=== PATIENT | female | born 1945 | race Caucasian/White ===

== ENCOUNTER 2018-04-22 12:10 | Inpatient (IN) | payer MEDICARE, BC, SELFPAY ==
[2018-04-02 13:13] VITALS: BP 148/71; PULSE 79; RESP 18; TEMP 36.9; O2SAT 98; BMI 40.9
--- NOTE | 2018-04-02 13:26 | EKG12_ITS ---
Test Reason : Blood Pressure : / mmHG Vent. Rate : 075 BPM Atrial Rate : 075 BPM P-R Int : 144 ms QRS Dur : 076 ms QT Int : 370 ms P-R-T Axes : 033 024 041 degrees QTc Int : 413 ms Normal sinus rhythm Normal ECG Confirmed by VICKIE BALDWIN, URVASHI ([id number]), subeditor DIANE HERNANDEZ ([id number]) on 04/04/2018 8:58:16 AM Referred By: SAVANAH Confirmed By:URVASHI JOHNSTON MD
[2018-04-02 14:08] LABS: Absolute Lymphocyte Count 2.42 X10^3/ul (0.83-4.51); Basophil# 0.03 X10^3/uL; Basophil% 0.4 % (0-1); Eosinophil# 0.09 X10^3/uL; Eosinophils% 1.1 % (0-5); Hematocrit 39.6 % (37-47); Hemoglobin 12.7 g/dl (12.0-15.0); Lymphocyte # 2.42 X10^3/ul (4.0); Lymphocyte % 29.6 % (19-41); Mean Corp Hgb Conc 32.1 g/gl (32-36); Mean Corpuscular Hgb 30.2 pg (27.0-32.0); Mean Corpuscular Volume 94.3 fL (81-99); Mean Platelet Vol. 8.3 fl (6.2-12.0); Monocyte# 0.61 X10^3/uL; Monocyte% 7.5 % (0-10); Neutrophil # 5.02 X10^3/uL (2.7-7.7); Neutrophil % 61.3 % (47-70); Platelet Count 203 K/mm3 (150-450); RBC Distribution Width CV 13.9 % (11.6-14.6); RBC Distribution Width SD 47.5 fl (35.1-43.9); White Blood Count 8.2 K/mm3 (4.4-11.0)
[2018-04-02 14:09] LABS: POSITIVE COUNT NO; POSITIVE DIFFERENTIAL NO; POSITIVE MORPHOLOGY NO
[2018-04-02 14:25] LABS: Anion Gap 4 (5-15); BUN 19 mg/dL (7-18); BUN/Creat Ratio 23.4 RATIO (10-20); Calcium,Total 8.9 mg/dL (8.5-10.1); Chloride 104 mmol/L (98-107); Creatinine, Serum 0.81 mg/dL (0.55-1.02); EST Glomerular Filtration Rate 73 mL/min (>60); Est Glom Filt Rate - Afr Amer 89 mL/min (>60); Estimated Creatinine Clearance 43.77 ml/min; Glucose 103 mg/dL (74-106); Potassium 3.8 mmol/L (3.5-5.1); Sodium Level 138 mmol/L (136-145)
[2018-04-22] VITALS (10 sets, daily range): BP systolic 104–178; BP diastolic 56–83; PULSE 56–69; RESP 16–18; TEMP 36–36.5; O2SAT 74–100; BMI 40.9
[2018-04-22] MEDS: Acetaminophen 500 MG Tablet 1000 MG PO ×2 (12:54→21:50)
[2018-04-22] MEDS: oxyCODONE HCl Cr 10 MG Tablet PO (12:54)
[2018-04-22] MEDS: Celecoxib 200 MG Capsule 400 MG PO (12:54)
[2018-04-22] MEDS: Lactated Ringers 1,000 ML 999 ML IV (13:28)
[2018-04-22] MEDS: Cefazolin 2 GM in 0.9% Normal Saline 100 ML IV (14:25)
--- NOTE | 2018-04-22 15:50 | PCM.IMDPSTOP ---
Immediate Post-Op Note Date of Procedure: 04/22/18 Primary Surgeon/Physician: David Gray material requirements worker: Johnson David Pre-Operative Diagnosis: OA left knee Post-Operative Diagnosis: same Surgery/Procedure Performed:: Left TKR Description of Surgical Findings:: see note Estimated Blood Loss: 25cc Specimen's removed: bone Type of Anesthesia:: Spinal ASA Class: ASA3 Severe Disease - Admit VTE Documentation VTE Present on Admission: No VTE Mechan Device Prophylaxis: SCD's, Thigh High RUSLAN Hose VTE Pharm Prophylaxis ordered?: Yes
--- NOTE | 2018-04-22 16:27 | RAD_ITS ---
STUDY: X-RAY - LEFT KNEE REASON FOR EXAM: Female, 72 years old. Postop. TECHNIQUE: 2 view(s) of the knee. COMPARISON: None. FINDINGS: Normal visualized distal femur. Normal visualized proximal tibia and fibula. Normal proximal tibiofibular articulation. There is total knee replacement . Alignment is near-anatomic. There is postoperative change in the soft tissues. There are skin roderick. RAD/Knee 1 or 2 Views IMPRESSION: Total knee replacement. Electronically Signed: Del Martin MD at 20:31 EDT , Service support ,
[2018-04-22 16:48] LABS: Hematocrit 38.2 % (37-47); Hemoglobin 12.3 g/dl (12.0-15.0); Mean Corp Hgb Conc 32.2 g/gl (32-36); Mean Corpuscular Hgb 31.4 pg (27.0-32.0); Mean Corpuscular Volume 97.4 fL (81-99); Mean Platelet Vol. 8.2 fl (6.2-12.0); Platelet Count 221 K/mm3 (150-450); RBC Distribution Width CV 13.7 % (11.6-14.6); RBC Distribution Width SD 47.5 fl (35.1-43.9); Red Blood Count 3.92 M/mm3 (4.2-5.4); Scan Indicated on CBC? Y/N NO; White Blood Count 10.6 K/mm3 (4.4-11.0)
[2018-04-22 17:55] LABS: Anion Gap 9 (5-15); BUN 13 mg/dL (7-18); BUN/Creat Ratio 16.3 RATIO (10-20); Calcium,Total 8.2 mg/dL (8.5-10.1); Chloride 109 mmol/L (98-107); EST Glomerular Filtration Rate 75 mL/min (>60); Est Glom Filt Rate - Afr Amer 90 mL/min (>60); Estimated Creatinine Clearance 44.32 ml/min; Glucose 77 mg/dL (74-106); Potassium 4.5 mmol/L (3.5-5.1); Sodium Level 138 mmol/L (136-145)
[2018-04-22] MEDS: hydroCHLOROthiazide 25 MG Tablet 12.5 MG PO (21:50)
[2018-04-23 02:58] VITALS: BP 113/89; PULSE 65; RESP 18; TEMP 36.9; O2SAT 100
[2018-04-23] MEDS: Acetaminophen 500 MG Tablet 1000 MG PO ×3 (06:15→21:24)
[2018-04-23] MEDS: Rivaroxaban 10 MG Tablet PO (06:15)
[2018-04-23 06:20] LABS: Hematocrit 37.2 % (37-47); Hemoglobin 11.9 g/dl (12.0-15.0); Mean Corpuscular Hgb 30.8 pg (27.0-32.0); Mean Corpuscular Volume 96.4 fL (81-99); Mean Platelet Vol. 8.2 fl (6.2-12.0); Platelet Count 215 K/mm3 (150-450); RBC Distribution Width CV 13.4 % (11.6-14.6); RBC Distribution Width SD 46.2 fl (35.1-43.9); Red Blood Count 3.86 M/mm3 (4.2-5.4); White Blood Count 8.4 K/mm3 (4.4-11.0)
[2018-04-23 06:25] LABS: Scan Indicated on CBC? Y/N NO
[2018-04-23 06:32] LABS: Anion Gap 8 (5-15); BUN 11 mg/dL (7-18); BUN/Creat Ratio 15.4 RATIO (10-20); Calcium,Total 8.4 mg/dL (8.5-10.1); Chloride 103 mmol/L (98-107); Creatinine, Serum 0.72 mg/dL (0.55-1.02); EST Glomerular Filtration Rate 85 mL/min (>60); Est Glom Filt Rate - Afr Amer 102 mL/min (>60); Estimated Creatinine Clearance 35.45 ml/min; Glucose 90 mg/dL (74-106); Potassium 4.3 mmol/L (3.5-5.1); Sodium Level 139 mmol/L (136-145)
[2018-04-23 07:57] VITALS: BP 154/67; PULSE 68; RESP 18; TEMP 36.5; O2SAT 100
--- NOTE | 2018-04-23 07:58 | PCM.PN.ORT ---
Subjective: Doing well pain rated at 4-5/10 - Physical Exam General: Alert, Oriented x3, No apparent distress HEENT: Atraumatic Oral: Moist Mucosa Skin: Incision - C/D/I Musculoskeletal: Tenderness - left knee as expected Neurological: Neuro grossly intact Vital Signs Temp Pulse Resp BP Pulse Ox 97.7 F L 68 18 154/67 H 100 04/23/18 07:57 04/23/18 07:57 04/23/18 07:57 04/23/18 07:57 04/23/18 07:57 Oxygen Delivery Method Room Air Weight: 209 lb 10.554 oz Body Mass Index (BMI) 40.9 Intake and Output for Last 24 Hours 04/21/18 04/22/18 04/23/18 23:59 23:59 23:59 Intake Total 1600 / 1600 185 / 185 Balance 1600 / 1600 185 / 185 Laboratory Tests Past 24 Hrs 04/22/18 04/22/18 04/23/18 16:30 16:30 05:42 WBC 10.6 8.4 RBC 3.92 L 3.86 L Hgb 12.3 11.9 L Hct 38.2 37.2 MCV 97.4 96.4 MCH 31.4 30.8 MCHC 32.2 32.0 RDW 13.7 13.4 RDW Differential 47.5 H 46.2 H Plt Count 221 215 MPV 8.2 8.2 Sodium 138 Potassium 4.5 Chloride 109 H Carbon Dioxide 20.0 L Anion Gap 9 BUN 13 Creatinine 0.80 Estim Creat Clear Calc 44.32 Est GFR (MDRD) Af Amer 90 Est GFR (MDRD) Non-Af 75 BUN/Creatinine Ratio 16.3 Glucose 77 Calcium 8.2 L 04/23/18 05:42 WBC RBC Hgb Hct MCV MCH MCHC RDW RDW Differential Plt Count MPV Sodium 139 Potassium 4.3 Chloride 103 Carbon Dioxide 28.0 Anion Gap 8 BUN 11 Creatinine 0.72 Estim Creat Clear Calc 35.45 Est GFR (MDRD) Af Amer 102 Est GFR (MDRD) Non-Af 85 BUN/Creatinine Ratio 15.4 Glucose 90 Calcium 8.4 L Medical Necessity - Tobacco Use Smoking Status: Never smoker Assessment/Plan POD #1 Left TKR PT today, d/c/tomorrow
[2018-04-23] MEDS: oxyCODONE 5 MG Tablet PO ×2 (08:00→12:04)
--- NOTE | 2018-04-23 11:15 | CASEMGMT ---
PITO ABARCA Face to Face with patient for initial transition planning/care coordination assessment. PITO ABARCA introduced self and role at [facility]. Patient lying in bed, alert and oriented, daughter at bedside. Patient willing to participate in assessment and is able to answer all questions appropriately. Care providers, pharmacy, and demographics verified. Patient lives with in 1 story home with 2 steps to enter home. Patient states she has a shower chair, raised toilet seat, cane, grab bars, hip kit, and walker at home. Patient wishes to discharge home, and is setup with [facility] for outpatient therapy with providing transportation. Patient states she has no further needs or concerns at this time. CM to follow for discharge planning needs that may arise. Disposition Plan: Patient to discharge home with outpatient therapy, family support, and follow-up plans in place.
[2018-04-23 14:00] VITALS: BP 141/53; PULSE 72; RESP 18; TEMP 37.1; O2SAT 98
[2018-04-23] MEDS: hydroCHLOROthiazide 25 MG Tablet 12.5 MG PO (21:25)
[2018-04-24 02:35] VITALS: BP 148/73; PULSE 92; RESP 18; TEMP 37.2; O2SAT 95
[2018-04-24] MEDS: Acetaminophen 500 MG Tablet 1000 MG PO ×2 (06:05→14:03)
[2018-04-24] MEDS: Rivaroxaban 10 MG Tablet PO (06:06)
--- NOTE | 2018-04-24 08:01 | PCM.PN.ORT ---
Subjective: doing well. Up eating breakfast. Ready to go home this PM after PT. - Physical Exam General: Alert, Oriented x3, No apparent distress Skin: Incision - C/D/I Musculoskeletal: Tenderness - Left knee as expected. Negative Asa and Quentin signs Vital Signs Temp Pulse Resp BP Pulse Ox 98.9 F 92 18 148/73 H 95 04/24/18 02:35 04/24/18 02:35 04/24/18 02:35 04/24/18 02:35 04/24/18 02:35 Oxygen Delivery Method Room Air Weight: 209 lb 10.554 oz Body Mass Index (BMI) 40.9 Intake and Output for Last 24 Hours 04/22/18 04/23/18 04/24/18 23:59 23:59 23:59 Intake Total 1600 / 1600 1145 / 1145 Balance 1600 / 1600 1145 / 1145 Medical Necessity - Tobacco Use Smoking Status: Never smoker Assessment/Plan S/p Left TKR PT this AM, home PM PT as outpatient in office Will follow closely
[2018-04-24 08:30] VITALS: BP 155/70; PULSE 83; RESP 18; TEMP 36.9; O2SAT 100
[2018-04-24] MEDS: oxyCODONE 5 MG Tablet PO ×2 (08:30→14:03)
--- NOTE | 2018-04-24 09:42 | PCM.DC.TKR ---
Discharge Diet: No Restrictions Discharge Activity: May Not Drive, May Shower, Use Walker May shower in (days): 1 Ice area for (Minutes): 20 - each hour while awake. Weight Bearing Status: Weight bearing as tolerated Elevate: Operative Extremity Additional Activity Instructions:: Wear elastic stockings for 2 weeks after your surgery. Call your doctor if your incision/area has: Continuous Slow Oozing, Sudden Increased Bleeding, Increased Pain/ Swelling, Increased Redness, Foul Smelling Discharge Call your doctor if you observe: Fever of 101 or Higher, Coldness, Increased Pain - in extremity, Numbness or Tingling, Change in Color, Calf discomfort, Uncontrolled pain Change Dressing in (Days):: 0 - and daily as needed. Remove Dressing in (days):: 8 Cleanse incision/area with: Soap & Water Allergies/Adverse Reactions: Allergies hydrocodone [From Vicodin] Allergy (Verified 04/02/18 12:50) Other severe headache Medications to take at Discharge Ergocalciferol [Vitamin D] 50,000 unit PO Q7D 04/02/18 Potassium 99 mg PO DAILY 04/02/18 Valsartan/Hydrochlorothiazide [Valsartan-Hctz 160-12.5 mg Tab] 1 each PO QHS 04/02/18 Acetaminophen [Tylenol] 1,000 mg PO Q8 #90 tab 04/24/18 Oxycodone [Oxyir] 5 - 10 mg PO Q6H PRN PRN 7 Days #80 tab 04/24/18 Rivaroxaban [Xarelto] 10 mg PO DAILY@0600 #20 tab 04/24/18 The following prescriptions were given: Oxycodone [Oxyir] 5 - 10 mg PO Q6H PRN PRN 7 Days #80 tab PRN Reason: Mod-Severe Pain (4-07/24) Acetaminophen [Tylenol] 1,000 mg PO Q8 #90 tab Rivaroxaban [Xarelto] 10 mg PO DAILY@0600 #20 tab Primary Care Physician: Honorio Nettles Chi, MD [Primary Care Provider] - Test Results: Test results from this visit will be discussed in further detail at your follow-up appointment, if applicable. Please Follow Up With: David Gray, When: as scheduled
--- NOTE | 2018-04-24 12:27 | CASEMGMT ---
Social Work Note lock and dam equipment repairer Sreedhar informed this worker that pt's scripts will cost $290. PITO Eli states that pt is being discharged in Xarelto. SW spoke with pharmacy and pharmacy states that they checked Xarelto coupon card and it doesn't cover the mg that pt will be discharged on. Pharmacy confirms that Rx assistance program can only be used if pt doesn't have insurance. Pt currently had Medicare and pharmacy states that pt's Medicare insurance doesn't cover her prescriptions. Pharmacy states that the only way pt can get her script cost down is to have the doctor change the medicine she will be discharged on. SW updated lock and dam equipment repairer Sreedhar of this. Yessy Mei HEAD TURNING MACHINE OPERATOR, CLINICAL SYSTEMS ANALYST
--- NOTE | 2018-04-24 13:34 | NURSING ---
Pt refused prescription for Xarelto due to the cost of about $290. Pt stated she was on no anticoagulant before. Also stated that after her last surgery she was not given any anticoagulants and did not have a problem. Pt stated she does not have a history of any blood clots or heart issues that would warrant it. Pt requested a therapeutic option. This RN contacted Dr. Gray by phone. A nurse answered and verbally communicated with Dr. Gray and repeated a new order to this RN. Dr. Gray ordered the Xarelto to be discontinued and replaced with Aspirin 325mg once a day. This RN repeated the order back and it was correct. Pt was notified and in agreement with this option. Pt stated she appreciated being able to work with us on options to resolve this and the work involved.
== END 2018-04-24 14:17 | disposition home or self-care (01) | DRG 470 ==
LOC: ACINP 12:11 → MS3 13:58
PROVIDERS: Admitting Provider Orthopaedic Surgery; Family Provider Family Medicine Geriatric Medicine; PCP Family Medicine Geriatric Medicine; Visit Provider Orthopaedic Surgery
PROC: 0SRD0J9 Replacement of Left Knee Joint with Synthetic Substitute, Cemented, Open Approach (ICD-10-PCS; CPT 27447; principal; 2018-04-22 13:50)
DX: M17.12 Unilateral primary osteoarthritis, left knee (principal); Z68.41 Body mass index [BMI] 40.0-44.9, adult; Z96.651 Presence of right artificial knee joint; I10 Essential (primary) hypertension; E66.9 Obesity, unspecified
CPT/HCPCS: 36415; 73560; 80048; 85025; 85027; 87081; 93005; 97110; 97162; 97165; 97530; C1776; J7120; J2405

== ENCOUNTER → 2018-11-05 11:36 | Outpatient (CLI) | payer MEDICARE, BC, SELFPAY ==
[2018-04-22 17:33] VITALS: BMI 40.9
[2018-11-05 12:41] LABS: Absolute Lymphocyte Count 2.16 X10^3/ul (0.83-4.51); Absolute Neutrophil Count 4.2 X10^3/uL (2.0-7.7); Basophil# 0.04 X10^3/uL; Basophil% 0.6 % (0-1); Eosinophil# 0.23 X10^3/uL; Eosinophils% 3.2 % (0-5); Hemoglobin 13.5 g/dl (12.0-15.0); Lymphocyte # 2.16 X10^3/ul (4.0); Lymphocyte % 30.1 % (19-41); Mean Corp Hgb Conc 32.1 g/gl (32-36); Mean Corpuscular Hgb 30.5 pg (27.0-32.0); Mean Platelet Vol. 8.8 fl (6.2-12.0); Monocyte# 0.57 X10^3/uL; Monocyte% 7.9 % (0-10); Neutrophil # 4.16 X10^3/uL (2.7-7.7); Neutrophil % 57.9 % (47-70); Platelet Count 295 K/mm3 (150-450); RBC Distribution Width CV 13.4 % (11.6-14.6); RBC Distribution Width SD 44.8 fl (35.1-43.9); Red Blood Count 4.42 M/mm3 (4.2-5.4); White Blood Count 7.2 K/mm3 (4.4-11.0)
[2018-11-05 12:43] LABS: POSITIVE COUNT NO; POSITIVE DIFFERENTIAL NO; POSITIVE MORPHOLOGY NO
[2018-11-05 12:53] LABS: Vitamin D,25 Hydroxy 98.1 ng/mL (29.95-100.01)
[2018-11-05 13:00] LABS: ALB/GLOB Ratio 0.9 RATIO (0.9-2.4); AST(SGOT) 15 U/L (15-37); Alanine Aminotransfer ALT/SGPT 18 U/L (13-56); Albumin, Serum 3.5 g/dL (3.2-5.0); Alkaline Phosphatase 68 U/L (45-117); Anion Gap 8 (5-15); BUN 15 mg/dL (7-18); BUN/Creat Ratio 19.8 RATIO (10-20); Calcium,Total 9.2 mg/dL (8.5-10.1); Chloride 104 mmol/L (98-107); Creatinine, Serum 0.76 mg/dL (0.55-1.02); EST Glomerular Filtration Rate 79 mL/min (>60); Est Glom Filt Rate - Afr Amer 96 mL/min (>60); Globulin 3.8 g/dL (2.2-4.2); Glucose 89 mg/dL (74-106); Potassium 4.3 mmol/L (3.5-5.1); Protein, Total 7.3 g/dL (6.4-8.2); Sodium Level 140 mmol/L (136-145); Thyroid Stim Hormone (TSH) 0.45 uIU/mL (0.358-3.74)
--- OUTSIDE RECORDS SUMMARY | 2019-01-07 15:34 | XMS RPT_ITS ---
:1945 Author Organization OHIP Care Team Providers Name Role Phone Honorio Nettles Chi Attending Unavailable Tho Honorio Chi Primary Care Unavailable David Gray Admitting Unavailable David Gray Attending Unavailable Tho, Honorio Chi Primary Care Unavailable Francisco Johnston Attending Unavailable David Gray Referring Unavailable PROBLEMS PROBLEMS DATE TYPE CONDITION / CODE ATTENDING STATUS SOURCE 04/24/2018 Unknown G89.18 - Other acute David Gray Active [place] postprocedural pain [facility] / G89.18(ICD-10) Hospital Repository 04/25/2018 Unknown I10 - Essential Francisco Johnston Active [place] (primary) [facility] hypertension / Hospital I10(ICD-10) Repository PROCEDURES PROCEDURES No Procedure Records FoundRESULTS RESULTS CBC W/DIFF, AUTOMATED Collected: 11/05/2018 Status: F Source: [place] 11:41 AM [facility] HOSPITAL REPOSITORY TYPE CODE TESTS RESULT OUT OF RANGE REFERENCE UNITS LAB L100.1000 4.4-11.0 K/mm3 Normal WBC 7.2 LAB L100.1200 4.2-5.4 M/mm3 Normal RBC 4.42 LAB L100.1300 12.0-15.0 g/dl Normal HGB 13.5 LAB L100.1400 37-47 % Normal HCT 42.0 LAB L100.1500 81-99 fL Normal MCV 95.0 LAB L100.1600 27.0-32.0 pg Normal MCH 30.5 LAB L100.1700 32-36 g/gl Normal MCHC 32.1 LAB L100.1810 11.6-14.6 % Normal RDW CV 13.4 LAB L100.1820 35.1-43.9 fl High RDW SD 44.8 LAB L100.1900 150-450 K/mm3 Normal PLT 295 LAB L100.2000 6.2-12.0 fl Normal MPV 8.8 LAB L100.2100 47-70 % Normal NEUT% 57.9 LAB L100.2200 19-41 % Normal LY% 30.1 LAB L100.2300 0-10 % Normal MONO% 7.9 LAB L100.2400 0-5 % Normal EO% 3.2 LAB L100.2500 0-1 % Normal BASO% 0.6 LAB L100.2550 0.0-0.9 % Normal IM GRAN % 0.300 Result Comment: IG% - Immature Granulocytes (promyelocytes, myelocytes and metamyelocytes) > 1% indicates that a LEFT SHIFT is Present. LAB L100.2620 2.0-7.7 X10 3/uL Normal Absolute Neut 4.2 LAB L100.2720 0.83-4.51 X10 3/ul Normal Absolute Lymph 2.16 Performed By: #### L100.0100 #### [facility] [address] [place], [place], [address] VITAMIN D,25 HYDROXY Collected: 11/05/2018 Status: F Source: [place] 11:41 [facility] [place] TYPE CODE TESTS RESULT OUT OF RANGE REFERENCE UNITS LAB L506.1000 29.95-100.01 ng/mL Normal Vitamin D 98.1 25-OH Result Comment: Vitamin D 25(OH) Status Range Deficiency <20 ng/mL (50nmol/L) Insuffciency 20 - 30 ng/mL (50 - 75 nmol/L) Sufficiency 30 - 100 ng/mL (75 - 250 nmol/L) Toxicity >100 ng/mL (>250 nmol/L) Performed By: #### L506.1000 #### [facility] [address] [place], [address] COMPREHENSIVE METABOLIC Collected: 11/05/2018 Status: F Source: [facility] 11:41 [facility] [place] TYPE CODE TESTS RESULT OUT OF RANGE REFERENCE UNITS LAB L501.0100 74-106 mg/dL Normal GLU 89 Result Comment: Please note revised GLUCOSE reference range effective 2017. LAB L501.1000 7-18 mg/dL Normal BUN 15 LAB L501.1100 0.55-1.02 mg/dL Normal CREAT,SERUM 0.76 Result Comment: The validity of the calculated GFR AND GFRAA in patients over 70 years has not been determined. Clinical correlation is essential. LAB L501.1110 >60 mL/min Normal EST GFR 79 Result Comment: Non- GFR Calc LAB L501.1115 >60 mL/min Normal EST GFR - AA 96 Result Comment: GFR Calc LAB L501.1300 10-20 RATIO Normal BUN/CRE 19.8 LAB L501.1500 6.4-8.2 g/dL T Normal PROT 7.3 LAB L501.1800 3.2-5.0 g/dL Normal ALB 3.5 LAB L501.1950 2.2-4.2 g/dL Normal GLOB 3.8 LAB L501.2000 0.9-2.4 RATIO Normal A/G 0.9 LAB L501.2200 8.5-10.1 mg/dL CA Normal 9.2 LAB L501.4100 15-37 U/L Normal AST 15 LAB L501.4305 45-117 U/L Normal ALK P 68 LAB L501.4405 13-56 U/L Normal ALT 18 LAB L501.4600 0.20-1.00 mg/dL T Normal BILI 0.50 LAB L501.5300 136-145 mmol/L NA Normal 140 LAB L501.5600 3.5-5.1 mmol/L K Normal 4.3 LAB L501.5900 98-107 mmol/L CL Normal 104 LAB L501.6100 21.0-32.0 mmol/L Normal CO2 28.0 LAB L501.6200 5-15 Normal GAP 8 Performed By: #### L500.4050, L501.9520 #### [facility] [address] [place], [address] THYROID STIM HORMONE Collected: 11/05/2018 Status: F Source: [place] (TSH) 11:41 AM [facility] REPOSITORY TYPE CODE TESTS RESULT OUT OF RANGE REFERENCE UNITS LAB L501.9520 0.358-3.74 uIU/mL Normal TSH 0.45 Performed By: #### L500.4050, L501.9520 #### [facility] [address] [place], [address] DISCHARGE INSTRUCTION Observed: 04/24/2018 Status: F Source: [place] 9:43 AM [facility] REPOSITORY [facility] Medical Records Department [address] [place] [address] Instructions for Home/Discharge Instructions 04/24/18 0942 MR#: [id number] Acct: [id number] Name: ANAY CHAIREZ Rep #: [id number] : 1945 72 From: Johnson David PA-C PCP: Tho BALDWIN,Dishcrawl Status: ADM IN Discharge Diet: No Restrictions Discharge Activity: May Not Drive, May Shower, Use Walker May shower in (days): 1 Ice area for (Minutes): 20 - each hour while awake. Weight Bearing Status: Weight bearing as tolerated Elevate: Operative Extremity Additional Activity Instructions:: Wear elastic stockings for 2 weeks after your surgery. Call your doctor if your incision/area has: Continuous Slow Oozing, Sudden Increased Bleeding, Increased Pain/ Swelling, Increased Redness, Foul Smelling Discharge Call your doctor if you observe: Fever of 101 or Higher, Coldness, Increased Pain - in extremity, Numbness or Tingling, Change in Color, Calf discomfort, Uncontrolled pain Change Dressing in (Days):: 0 - and daily as needed. Remove Dressing in (days):: 8 Cleanse incision/area with: Soap AND Water Allergies/Adverse Reactions: Allergies hydrocodone [From Vicodin] Allergy (Verified 04/02/18 12:50) Other severe headache Medications to take at Discharge Ergocalciferol [Vitamin D] 50,000 unit PO Q7D 04/02/18 Potassium 99 mg PO DAILY 04/02/18 Valsartan/Hydrochlorothiazide [Valsartan-Hctz 160-12.5 mg Tab] 1 each PO QHS 04/02/18 Acetaminophen [Tylenol] 1,000 mg PO Q8 #90 tab 04/24/18 Oxycodone [Oxyir] 5 - 10 mg PO Q6H PRN PRN 7 Days #80 tab 04/24/18 Rivaroxaban [Xarelto] 10 mg PO DAILY@0600 #20 tab 04/24/18 The following prescriptions were given: Oxycodone [Oxyir] 5 - 10 mg PO Q6H PRN PRN 7 Days #80 tab PRN Reason: Mod-Severe Pain (-07/24) Acetaminophen [Tylenol] 1,000 mg PO Q8 #90 tab Rivaroxaban [Xarelto] 10 mg PO DAILY@0600 #20 tab Primary Care Physician: Honorio Nettles Chi, MD [Primary Care Provider] - Test Results: Test results from this visit will be discussed in further detail at your follow-up appointment, if applicable. Please Follow Up With: David Gray, DO When: as scheduled 04/24/18 0943 <Electronically signed by Johnson David PA-C> Date Johnson David PA-C CC: Honorio Nettles MD CBC-COMPLETE BLOOD CNT Collected: 04/23/2018 Status: F Source: [place] NO DIFF 5:42 AM [facility] REPOSITORY TYPE CODE TESTS RESULT OUT OF RANGE REFERENCE UNITS LAB L100.1000 4.4-11.0 K/mm3 Normal WBC 8.4 LAB L100.1200 4.2-5.4 M/mm3 Low RBC 3.86 LAB L100.1300 12.0-15.0 g/dl Low HGB 11.9 LAB L100.1400 37-47 % Normal HCT 37.2 LAB L100.1500 81-99 fL Normal MCV 96.4 LAB L100.1600 27.0-32.0 pg Normal MCH 30.8 LAB L100.1700 32-36 g/gl Normal MCHC 32.0 LAB L100.1810 11.6-14.6 % Normal RDW CV 13.4 LAB L100.1820 35.1-43.9 fl High RDW SD 46.2 LAB L100.1900 150-450 K/mm3 Normal PLT 215 LAB L100.2000 6.2-12.0 fl Normal MPV 8.2 Performed By: #### L100.0500 #### [facility] [address] [place], [place], [id number] BASIC METABOLIC Collected: 04/23/2018 Status: F Source: [place] PROFILE (BMP) 5:42 AM [facility] REPOSITORY TYPE CODE TESTS RESULT OUT OF RANGE REFERENCE UNITS LAB L501.0100 74-106 mg/dL Normal GLU 90 Result Comment: Please note revised GLUCOSE reference range effective 2017. LAB L501.1000 7-18 mg/dL Normal BUN 11 LAB L501.1100 0.55-1.02 mg/dL Normal CREAT,SERUM 0.72 Result Comment: The validity of the calculated GFR AND GFRAA in patients over 70 years has not been determined. Clinical correlation is essential. LAB L501.1110 >60 mL/min Normal EST GFR 85 Result Comment: Non- GFR Calc LAB L501.1115 >60 mL/min Normal EST GFR - AA 102 Result Comment: GFR Calc LAB L501.1255 ml/min Normal Estimated CRCL 35.45 LAB L501.1300 10-20 RATIO Normal BUN/CRE 15.4 LAB L501.2200 8.5-10 mg/dL Low .1 CA 8.4 LAB L501.5300 136-14 mmol/L Normal 5 NA 139 LAB L501.5600 3.5-5. mmol/L Normal 1 K 4.3 LAB L501.5900 98-107 mmol/L Normal CL 103 LAB L501.6100 21.0-3 mmol/L Normal 2.0 CO2 28.0 LAB L501.6200 5-15 Normal GAP 8 Performed By: #### L500.2500 #### [facility] [address] [place], [address] CBC-COMPLETE BLOOD CNT Collected: 04/22/2018 Status: F Source: [place] NO DIFF 4:30 PM [facility] REPOSITORY Order Comment: Comments: To be done in PACU TYPE CODE TESTS RESULT OUT OF RANGE REFERENCE UNITS LAB L100.1000 4.4-11.0 K/mm3 Normal WBC 10.6 LAB L100.1200 4.2-5.4 M/mm3 Low RBC 3.92 LAB L100.1300 12.0-15.0 g/dl Normal HGB 12.3 LAB L100.1400 37-47 % Normal HCT 38.2 LAB L100.1500 81-99 fL Normal MCV 97.4 LAB L100.1600 27.0-32.0 pg Normal MCH 31.4 LAB L100.1700 32-36 g/gl Normal MCHC 32.2 LAB L100.1810 11.6-14.6 % Normal RDW CV 13.7 LAB L100.1820 35.1-43.9 fl High RDW SD 47.5 LAB L100.1900 150-450 K/mm3 Normal PLT 221 LAB L100.2000 6.2-12.0 fl Normal MPV 8.2 Performed By: #### L100.0500 #### [facility] [address] [place], [address] BASIC METABOLIC Collected: 04/22/2018 Status: F Source: [place] PROFILE (BMP) 4:30 PM [facility] REPOSITORY Order Comment: Comments: To be done in PACU TYPE CODE TESTS RESULT OUT OF RANGE REFERENCE UNITS LAB L501.0100 74-106 mg/dL Normal GLU 77 Result Comment: Please note revised GLUCOSE reference range effective 2017. LAB L501.1000 7-18 mg/dL Normal BUN 13 LAB L501.1100 0.55-1.02 mg/dL Normal CREAT,SERUM 0.80 Result Comment: The validity of the calculated GFR AND GFRAA in patients over 70 years has not been determined. Clinical correlation is essential. LAB L501.1110 >60 mL/min Normal EST GFR 75 Result Comment: Non- GFR Calc LAB L501.1115 >60 mL/min Normal EST GFR - AA 90 Result Comment: GFR Calc LAB L501.1255 ml/min Normal Estimated CRCL 44.32 LAB L501.1300 10-20 RATIO Normal BUN/CRE 16.3 LAB L501.2200 8.5-10 mg/dL Low .1 CA 8.2 LAB L501.5300 136-14 mmol/L Normal 5 NA 138 LAB L501.5600 3.5-5. mmol/L Normal 1 K 4.5 LAB L501.5900 98-107 mmol/L High CL 109 LAB L501.6100 21.0-3 mmol/L Low 2.0 CO2 20.0 LAB L501.6200 5-15 Normal GAP 9 Performed By: #### L500.2500 #### [facility] [address] [place], [address] KNEE 1 OR 2 VIEWS Observed: 04/22/2018 Status: F Source: [place] 2:09 PM [facility] REPOSITORY [facility] Imaging Services [address] [place] [address] Knee 1 or 2 Views MR#: [id number] Acct: [id number] Name: ANAY CHAIREZ Rep #: [id number] : 1945 F 72 From: Del Martin MD PCP: Honorio Nettles MD, Chi Status: ADM IN Study: Knee 1 or 2 Views Date of Exam: 04/22/18 Exam# [id number] Ordering Dr: David Gray DO STUDY: X-RAY - LEFT KNEE REASON FOR EXAM: Female, 72 years old. Postop. TECHNIQUE: 2 view(s) of the knee. COMPARISON: None. FINDINGS: Normal visualized distal femur. Normal visualized proximal tibia and fibula. Normal proximal tibiofibular articulation. There is total knee replacement . Alignment is near-anatomic. There is postoperative change in the soft tissues. There are skin roderick. RAD/Knee 1 or 2 Views IMPRESSION: Total knee replacement. Electronically Signed: Del Martin MD at 20:31 EDT , Service support , CC: David Gray DO; Honorio Nettles MD Certified Residential Medication Aide: Signed 12 LEAD ELECTROCARDIOGRAM Observed: 04/04/2018 Status: F Source: [place] 8:58 AM [facility] REPOSITORY [facility] Cardiovascular Services [address] [place] [address] 12 Lead EKG 04/02/18 1232 MR#: [id number] Acct: [id number] Name: ANAY CHAIREZ Rep #: [id number] : 1945 72 From: Francisco Johnston MD Attending Dr: David Gray DO Status: PRE IN Ordering Dr: David Gray DO Date: 04/02/18 Location: [facility] Sex: F C Admitted: Test Reason : Blood Pressure : / mmHG Vent. Rate : 075 BPM Atrial Rate : 075 BPM P-R Int : 144 ms QRS Dur : 076 ms QT Int : 370 ms P-R-T Axes : 033 024 041 degrees QTc Int : 413 ms Normal sinus rhythm Normal ECG Confirmed by VICKIE BALDWIN, FRANCISCO ([id number]), photograph editor DIANE HERNANDEZ ([id number]) on 04/04/2018 8:58:16 AM Referred By: SAVANAH Confirmed By:FRANCISCO JOHNSTON MD 04/04/18 0858 Date Francisco Johnston MD CC: David Gray DO; Honorio Nettles MD Signed CBC W/DIFF, AUTOMATED Collected: 04/02/2018 Status: F Source: [place] 1:40 PM [facility] REPOSITORY TYPE CODE TESTS RESULT OUT OF RANGE REFERENCE UNITS LAB L100.1000 4.4-11.0 K/mm3 Normal WBC 8.2 LAB L100.1200 4.2-5.4 M/mm3 Normal RBC 4.20 LAB L100.1300 12.0-15.0 g/dl Normal HGB 12.7 LAB L100.1400 37-47 % Normal HCT 39.6 LAB L100.1500 81-99 fL Normal MCV 94.3 LAB L100.1600 27.0-32.0 pg Normal MCH 30.2 LAB L100.1700 32-36 g/gl Normal MCHC 32.1 LAB L100.1810 11.6-14.6 % Normal RDW CV 13.9 LAB L100.1820 35.1-43.9 fl High RDW SD 47.5 LAB L100.1900 150-450 K/mm3 Normal PLT 203 LAB L100.2000 6.2-12.0 fl Normal MPV 8.3 LAB L100.2100 47-70 % Normal NEUT% 61.3 LAB L100.2200 19-41 % Normal LY% 29.6 LAB L100.2300 0-10 % Normal MONO% 7.5 LAB L100.2400 0-5 % Normal EO% 1.1 LAB L100.2500 0-1 % Normal BASO% 0.4 LAB L100.2550 0.0-0.9 % Normal IM GRAN % 0.100 Result Comment: IG% - Immature Granulocytes (promyelocytes, myelocytes and metamyelocytes) > 1% indicates that a LEFT SHIFT is Present. LAB L100.2620 2.0-7.7 X10 3/uL Normal Absolute Neut 5.0 LAB L100.2720 0.83-4.51 X10 3/ul Normal Absolute Lymph 2.42 Performed By: #### L100.0100 #### [facility] [address] [place], [place], [address] BASIC METABOLIC Collected: 04/02/2018 Status: F Source: [place] PROFILE (BMP) 1:40 PM [facility] REPOSITORY TYPE CODE TESTS RESULT OUT OF RANGE REFERENCE UNITS LAB L501.0100 74-106 mg/dL Normal GLU 103 Result Comment: Fasting Glucose result from 100 to 125 mg/dL suggests IMPAIRED HOMEOSTASIS per A.D.A. criteria. Please note revised GLUCOSE reference range effective 2017. LAB L501.1000 7-18 mg/dL High BUN 19 LAB L501.1100 0.55-1.02 mg/dL Normal CREAT,SERUM 0.81 Result Comment: The validity of the calculated GFR AND GFRAA in patients over 70 years has not been determined. Clinical correlation is essential. LAB L501.1110 >60 mL/min Normal EST GFR 73 Result Comment: Non- GFR Calc LAB L501.1115 >60 mL/min Normal EST GFR - AA 89 Result Comment: GFR Calc LAB L501.1255 ml/min Normal Estimated CRCL 43.77 LAB L501.1300 10-20 RATIO High BUN/CRE 23.4 LAB L501.2200 8.5-10 mg/dL Normal .1 CA 8.9 LAB L501.5300 136-14 mmol/L Normal 5 NA 138 LAB L501.5600 3.5-5. mmol/L Normal 1 K 3.8 LAB L501.5900 98-107 mmol/L Normal CL 104 LAB L501.6100 21.0-3 mmol/L Normal 2.0 CO2 30.0 LAB L501.6200 5-15 Low GAP 4 Performed By: #### L500.2500 #### [facility] [address] [place], [address] Observed: 04/02/2018 Status: F Source: [place] MRSA/SAID SCREEN 1:40 PM [facility] REPOSITORY MRSA/SAID SCRN S. AUREUS S. aureus Negative MRSA MRSA Negative Performed By: #### M100.651 #### [facility] [address] [place], [address] ALLERGIES ALLERGIES DATE TYPE / CODE NAME / CODE REACTION SEVERITY SOURCE 04/02/2018 Drug hydrocodone/ Other Unknown [facility] Allergy/4160 [id number]([facility] [address]12(SNOMED XNORM) Repository CT) ENCOUNTERS ENCOUNTERS ADMIT/DISCHARGE ACCOUNT ADMITTING ENCOUNTER LOCATION SOURCE NUMBER CLASS 11/05/2018 [id number] Ambulatory [place] 4 [facility] ing:POLAB3 Repository 04/22/2018/ [id number] [place], Inpatient [place] 8 6 David Encounter [facility] ing:HL8Ethq: Repository JH220Cvs: 1 04/02/2018/ [id number] Ambulatory BMSBuilding:W [place] 8 4 [facility] Repository PAYERS PAYERS ENCOUNTER GUARANTOR PAYER SUBSCRIBER SOURCE 11/05/2018 Del [id number] Primary ANAY L [place] Insurance:MEDICARE CUTAEYDENDOB: [facility] BPolicy [id number] Hospital [address]Cjr: (330) Number: Repository [phone] () [id number] Date:2018-11-05 11/05/2018 Secondary ANAY L [place] Insurance:ANTHEMPoli CUATEYDENDOB: Community cy Number: [id number] Hospital [id number] Repository e Date:[id number], [place] [address]XK: 11/05/2018 Tertiary NOT GIVENUNK [place] Insurance:SELF PAY [facility] Number: Effective Repository Date:2018-11-05 04/22/2018 Del Sd [id number] Primary ANAY L [place] Insurance:MEDICARE CRAYDENDOB: [place], [place] PART A [facility] [id number] Hospital [address]Heu: (330) Number: Repository [phone] () [id number] Date:2018-03-06 04/22/2018 Secondary ANAY L [place] Insurance:ANTHEMPoli CRAYDENDOB: Community cy Number: [id number] Hospital [id number] Repository e Date:[id number], [place] [address]EJ: 04/22/2018 Tertiary NOT GIVENUNK [place] Insurance:SELF PAY [facility] Number: Effective Repository Date:2018-03-06 04/02/2018 Del Sd [id number] Primary ANAY L [place] Insurance:MEDICARE CRAYDENDOB: [place] PART A [facility] [id number] Hospital [address]Uml: (330) Number: Repository [phone] () [id number] Date:2018-03-06 04/02/2018 Secondary ANAY L [place] Insurance:ANTHEMPoli CRAYDENDOB: Community cy Number: [id number] Hospital [id number] Repository e Date:[id number], [place] [address]HC: 04/02/2018 Tertiary NOT GIVENUNK [place] Insurance:SELF PAY [facility] Number: Effective Repository Date:2018-04-02
== END ==
PROVIDERS: Family Provider Family Medicine Geriatric Medicine; PCP Family Medicine Geriatric Medicine; Visit Provider Family Medicine Geriatric Medicine
DX: E55.9 Vitamin D deficiency, unspecified (principal); I10 Essential (primary) hypertension
CPT/HCPCS: 36415; 80053; 82306; 84443; 85025

== ENCOUNTER → 2018-12-26 10:13 | Outpatient (CLI) | payer MEDICARE, BC, SELFPAY ==
--- NOTE | 2018-12-26 10:18 | BI_ITS ---
MAMMOGRAPHY - BILATERAL SCREENING REASON FOR EXAM: Female, 73 years old. Routine annual screening examination. PERTINENT HISTORY: Non-contributory. Occasional left breast tenderness. TECHNIQUE: Digital bilateral breast elias (3D mammographic acquisition) in the CC and MLO projections. 2-D mediolateral oblique (MLO) and craniocaudad (CC) views of both breasts were obtained. CAD: Full Field Digital Mammography with Computer Added Detection was performed. COMPARISON: Comparison is made with prior study dated November 30, 2016 and October 26, 2014. FINDINGS: Breast Composition: There are scattered areas of fibroglandular density. There are no dominant masses or suspicious calcifications. Stable small benign-appearing bilateral axillary lymph nodes. No other significant abnormalities are identified. There has been no significant change since the prior study. BI/SCREENING MAMM (CAD), BILAT IMPRESSION: Stable bilateral screening mammogram. Yearly follow-up mammogram recommended. (A) ASSESSMENT CATEGORY: BIRADS Category 2: Benign. A letter regarding these results will be sent to the patient by the facility within 30 days. Approximately 10% of breast cancers are not detected by mammography. A normal mammogram should not delay biopsy of a clinically suspicious abnormality. [id number] Electronically Signed: Jones Rider, at 12:51 EDT , Service support ,
--- NOTE | 2018-12-26 10:28 | BD_ITS ---
STUDY: DUAL ENERGY X-RAY ABSORPTIOMETRY / DXA REASON FOR EXAM: Female, 73 years old. The patient is postmenopausal. Loss of height. TECHNIQUE: Bone Mineral Density (BMD) measurements of lumbar spine and bilateral hips were obtained. COMPARISON: Comparison is made with prior examination dated November 30, 2016. FINDINGS: Lumbar Spine (L1-L4): g/cm2 (1.218) / T-score (0.4) / Z-score (2.2) Findings are suggestive of normal bone density with a low fracture risk. Left Femur Total: g/cm2 (0.859) / T-score (-1.2) / Z-score (0.6) Left Femoral Neck: g/cm2 (0.816) / T-score (-1.6) / Z-score (0.3) Right Femur Total: g/cm2 (0.920) / T-score (-0.7) / Z-score (1.1) Right Femoral Neck: g/cm2 (0.926) / T-score (-0.8) / Z-score (1.1) The T-Scores on the most recent prior examination were: Lumbar Spine (L1-L4): There has been worsening of bone density since the previous examination. Left Femur Total: which represents a worsening of 4.9%. Right Femur Total: which represents a worsening of 4.2%. BD/Dexa Bone Density Study IMPRESSION: The patient is considered osteopenic as outlined below according to World Hernandez Organization (WHO) criteria with a moderate fracture risk. There has been worsening of bone density since the previous examination. Reference Information: The T-score is the number of standard deviations above or below the standard which is normal for young adults at their peak bone mineral density. The World Health Organization (WHO) interprets the T-scores as follows: Above -1 Normal bone density Between -1 and -2.5 Osteopenia Equal to / or below -2.5 Osteoporosis As a practical clinical guideline, osteopenia may be graded as follows: Mild -1 through -1.5 Moderate -1.6 through -2.0 Severe -2.1 through -2.4 The Z-score is the number of standard deviations above or below age-matched controls. A Z-score of less than -1.5 would be considered abnormal. References: 1. NIH Osteoporosis and Related Bone Diseases http://www.osteo.org 2. International Society for Clinical Densitometry http://www.iscd.org 3. National Osteoporosis Foundation http://www.nof.org Electronically Signed: Jones Rider, at 11:05 EDT , Service support ,
== END ==
PROVIDERS: Family Provider Family Medicine Geriatric Medicine; PCP Family Medicine Geriatric Medicine; Referring Provider Family Medicine Geriatric Medicine; Visit Provider Family Medicine Geriatric Medicine
DX: Z12.31 Encounter for screening mammogram for malignant neoplasm of breast (principal); Z78.0 Asymptomatic menopausal state
CPT/HCPCS: 77063; 77067; 77080

== ENCOUNTER → 2019-11-11 | Outpatient (CLI) | payer MEDICARE, BC, SELFPAY ==
--- NOTE | 2019-11-11 11:40 | RAD_ITS ---
STUDY: X-RAY - LEFT SHOULDER REASON FOR EXAM: Pain and loss of range of motion, injury 45 years ago. TECHNIQUE: 4 view(s) of the shoulder. COMPARISON: None. FINDINGS: There is glenohumeral arthrosis with a prominent osteophyte of the inferior medial humeral head and joint space narrowing. There is a small undersurface osteophyte of the distal clavicle at the acromioclavicular joint. Normal acromion. Normal humeral head and visualized proximal humerus. The soft tissue structures are unremarkable. Normal visualized pulmonary apex. RAD/Shoulder min 2 Views IMPRESSION: Glenohumeral arthrosis. Small undersurface osteophyte of the distal clavicle. Electronically Signed: Denver Marie MD at 11:55 EST Tel , Service support ,
[2019-11-11 12:29] LABS: Absolute Neutrophil Count 3.9 X10^3/uL (2.0-7.7); Basophil# 0.05 X10^3/uL; Basophil% 0.8 % (0-1); Eosinophil# 0.16 X10^3/uL; Eosinophils% 2.5 % (0-5); Hematocrit 39.4 % (37-47); Hemoglobin 12.6 g/dL (12.0-15.0); Mean Corpuscular Hgb 30.9 pg (27.0-32.0); Mean Corpuscular Volume 96.6 fL (81-99); Mean Platelet Vol. 8.8 fl (6.2-12.0); Monocyte# 0.45 X10^3/uL; NRBC Flagged by Analyzer 0 % (0-5); Neutrophil # 3.94 X10^3/uL (2.7-7.7); Neutrophil % 61.4 % (47-70); Platelet Count 237 K/mm3 (150-450); RBC Distribution Width CV 12.8 % (11.6-14.6); RBC Distribution Width SD 45.3 fl (35.1-43.9); Red Blood Count 4.08 M/mm3 (4.2-5.4); White Blood Count 6.4 K/mm3 (4.4-11.0)
[2019-11-11 12:49] LABS: Vitamin D,25 Hydroxy 64.6 ng/mL (29.95-100.01)
[2019-11-11 12:56] LABS: AST(SGOT) 11 U/L (15-37); Alanine Aminotransfer ALT/SGPT 18 U/L (13-56); Albumin, Serum 3.4 g/dL (3.2-5.0); Alkaline Phosphatase 62 U/L (45-117); Anion Gap 5 (5-15); BUN 18 mg/dL (7-18); BUN/Creat Ratio 22.6 RATIO (10-20); Calcium,Total 9.1 mg/dL (8.5-10.1); Chloride 105 mmol/L (98-107); EST Glomerular Filtration Rate 74 mL/min (>60); Est Glom Filt Rate - Afr Amer 90 mL/min (>60); Globulin 3.4 g/dL (2.2-4.2); Glucose 88 mg/dL (74-106); Potassium 3.9 mmol/L (3.5-5.1); Protein, Total 6.8 g/dL (6.4-8.2); Sodium Level 138 mmol/L (136-145); Thyroid Stim Hormone (TSH) 0.34 uIU/mL (0.358-3.74)
[2019-11-12 13:01] LABS: T3 Uptake 38 % (30-39); T4 Free Direct 1.15 ng/dL (0.76-1.46)
== END | disposition home or self-care (01) ==
PROVIDERS: PCP Family Medicine Geriatric Medicine; Referring Provider Family Medicine Geriatric Medicine; Visit Provider Family Medicine Geriatric Medicine
DX: E55.9 Vitamin D deficiency, unspecified (principal); I10 Essential (primary) hypertension; R53.83 Other fatigue; M75.102 Unspecified rotator cuff tear or rupture of left shoulder, not specified as traumatic
CPT/HCPCS: 36415; 73030; 80053; 82306; 84439; 84443; 84479; 85025

== ENCOUNTER → 2020-09-03 11:32 | Outpatient (CLI) | payer MEDICARE, BC, SELFPAY ==
--- NOTE | 2020-09-03 11:49 | CT_ITS ---
STUDY: CT BRAIN WITHOUT CONTRAST REASON FOR EXAM: Female, 75 years old. CLOSED HEAD INJURY RADIATION DOSAGE (If Supplied By Facility): CTDIvol = ( 44.99 ) mGy, DLP = ( 796.11 ) mGycm TECHNIQUE: Transaxial CT imaging of the brain was performed without administration of intravenous contrast material. Individualized dose optimization techniques were used for this CT. COMPARISON: No relevant priors. FINDINGS: Normal soft tissue structures. Normal calvarium. There is mild cerebral atrophy with widening of the extra-axial spaces and ventricular dilatation. There are areas of decreased attenuation within the white matter tracts of the supratentorial brain, consistent with microvascular disease changes. Normal basal ganglia and thalami. Normal brainstem. Normal cerebellum. There is no intracranial hemorrhage. There are no findings of an acute ischemic infarction. Normal visualized paranasal sinuses. CT/Brain/Head without Contrast IMPRESSION: Chronic involutional changes of the brain. Electronically Signed: Jones Rider, at 12:10 EST , Service support ,
[2020-09-03 11:58] LABS: Absolute Lymphocyte Count 1.96 X10^3/uL (0.83-4.51); Absolute Neutrophil Count 5.8 X10^3/uL (2.0-7.7); Basophil# 0.05 X10^3/uL; Basophil% 0.6 % (0-1); Eosinophil# 0.06 X10^3/uL; Eosinophils% 0.7 % (0-5); Hematocrit 41.9 % (37-47); Hemoglobin 13.2 g/dL (12.0-15.0); Lymphocyte # 1.96 X10^3/ul (4.0); Lymphocyte % 23.4 % (19-41); Mean Corp Hgb Conc 31.5 g/dL (32-36); Mean Corpuscular Hgb 30.5 pg (27.0-32.0); Mean Corpuscular Volume 96.8 fL (81-99); Mean Platelet Vol. 8.3 fl (6.2-12.0); Monocyte# 0.54 X10^3/uL; Monocyte% 6.4 % (0-10); NRBC Flagged by Analyzer 0 % (0-5); Neutrophil # 5.75 X10^3/uL (2.7-7.7); Neutrophil % 68.5 % (47-70); Platelet Count 276 K/mm3 (150-450); RBC Distribution Width CV 12.7 % (11.6-14.6); RBC Distribution Width SD 45.5 fl (35.1-43.9); Red Blood Count 4.33 M/mm3 (4.2-5.4); White Blood Count 8.4 K/mm3 (4.4-11.0)
--- NOTE | 2020-09-03 12:03 | VDLE_ITS ---
Reason For Study: RLE EDEMA RIGHT GSV is normal. CFV is compressible, spontaneous, phasic, competent and demonstrates normal augmentation. FV is compressible, spontaneous, phasic, competent and demonstrates normal augmentation. POP V is compressible, spontaneous, phasic, competent and demonstrates normal augmentation. T/P Trunk is compressible. PTV is compressible. RT PerV is compressible. Procedure This is a venous duplex using B-mode, color flow and spectral Doppler. The exam was diagnostic. A preliminary report was called and/or faxed to Dr. Nettles @ 2:05 pm. Interpretation Summary Deep veins of the right lower extremity are patent and compressible segmentally. There is no evidence of right lower extremity deep vein thrombosis. Valvular competence appears intact within the proximal deep venous system on the right . The right great saphenous vein appears patent and compressible segmentally. Ordering Physician: Honorio Nettles Referring Physician: Honorio Nettles Performed By: Evie Medrano RVT, RDCS and Student
[2020-09-03 12:11] LABS: Anion Gap 3 (5-15); BUN 21 mg/dL (7-18); BUN/Creat Ratio 25.7 RATIO (10-20); Calcium,Total 9.3 mg/dL (8.5-10.1); Chloride 106 mmol/L (98-107); Creatinine, Serum 0.82 mg/dL (0.55-1.02); EST Glomerular Filtration Rate 72 mL/min (>60); Est Glom Filt Rate - Afr Amer 87 mL/min (>60); Glucose 92 mg/dL (74-106); Potassium 3.9 mmol/L (3.5-5.1); Sodium Level 138 mmol/L (136-145)
== END ==
PROVIDERS: PCP Family Medicine Geriatric Medicine; Visit Provider Family Medicine Geriatric Medicine
DX: S09.90XA Unspecified injury of head, initial encounter (principal); R25.2 Cramp and spasm; R60.0 Localized edema
CPT/HCPCS: 36415; 70450; 80048; 83735; 85025; 93971

== ENCOUNTER → 2020-09-06 11:34 | Outpatient (CLI) | payer MEDICARE, BC, SELFPAY ==
[2020-09-06 13:21] LABS: BNP,B-Type NATRIURETIC PEPTIDE 23.3 pg/mL (0-100)
== END ==
PROVIDERS: PCP Family Medicine Geriatric Medicine; Visit Provider Family Medicine Geriatric Medicine
DX: R06.02 Shortness of breath (principal)
CPT/HCPCS: 36415; 83880

== ENCOUNTER → 2020-09-10 07:14 | Outpatient (CLI) | payer MEDICARE, BC, SELFPAY ==
[2018-04-22 17:33] VITALS: BMI 40.9
--- NOTE | 2020-09-10 07:30 | MRI_ITS ---
STUDY: MRI BRAIN WITHOUT CONTRAST REASON FOR EXAM: Female, 75 years old. R LEG WEAKNESS, R FOOT DROP, R TOES CURLING UNDER FOOT, INVOLUNTARY MUSCLE JERKS X 2 WEEKS COMPARISON: CT scan of the head obtained on 09/03/2020 TECHNIQUE: An MRI was performed utilizing axial diffusion and ADC map images followed by axial T2 and FLAIR and gradient echo images followed by sagittal and axial T1 weighted images. Coronal T2-weighted images through the head were also obtained. FINDINGS: The diffusion weighted axial images and ADC map images of the head show no evidence of restricted diffusion. The fanta, medulla and midbrain and cerebellum appear to be normal. The ventricles and sulci are normal in size and shape. The cerebral hemispheres show periventricular areas of increased signal in the montelongo radiata bilaterally due to small vessel arteriosclerotic demyelinating changes which are more pronounced and more numerous than is commonly found patient''s of this ageThe basal ganglia appear to be normal. No enhancing masses or lesions are seen. The gradient echo axial images are normal. No evidence of a Chiari I malformation is identified. The V4 segments of the vertebral artery, the basilar artery, the posterior cerebral arteries, the cavernous and supraclinoid carotid arteries, and the M1 segments of the middle cerebral arteries are all normal The orbits including the optic nerves and optic chiasm appear normal. The pituitary and pituitary infundibulum appear to be normal. The inner and outer tables of the skull are normal The frontal, ethmoid, maxillary, and sphenoid sinuses are normal the left mastoid air cells are normal. There is some increased signal in the inferior right mastoid air cells probably due to chronic mastoiditis. MRI/Brain without Contrast IMPRESSION: 1. Nonspecific demyelinating changes are seen in the montelongo radiata bilaterally which are more numerous than commonly found in patients of this age. 2. Increased signal in the inferior right mastoid air cells consistent with chronic mastoiditis. Electronically Signed: Steven Xvaier, at 9:57 EST Tel , Service support ,
--- NOTE | 2020-09-10 07:30 | MRI_ITS ---
STUDY: MRI CERVICAL SPINE WITHOUT CONTRAST REASON FOR EXAM: Female, 75 years old. Stenosis R LEG WEAKNESS, R FOOT DROP, R TOES CURLING UNDER FOOT, INVOLUNTARY MUSCLE JERKS X 2 WEEKS TECHNIQUE: Standardized fat and water weighted pulse sequences were obtained in the sagittal and axial planes. COMPARISON: None FINDINGS: Normal foramen magnum and brainstem-cervical cord junction. Normal craniovertebral junction. Normal anterior atlantoaxial articulation. Normal odontoid process. Normal cervical lordosis. Normal vertebral bodies and posterior osseous elements. C2-3: Normal endplates. Normal disc height, signal and morphology. Normal central canal and intervertebral neural foramina. C3-4: Normal endplates. Normal disc height, signal and morphology. Normal central canal and intervertebral neural foramina. C4-5: Normal endplates. Normal disc height, signal and morphology. Normal central canal and intervertebral neural foramina. C5-6: Normal endplates. Moderate disc space height narrowing. Left posterior marginal spur causing left ventral epidural defect. This is displacing the left ventral cord surface and probably the left C6 nerve root sleeve. No definite extruded disc fragment. Normal central canal. Moderate stenosis of the left intervertebral neural foramen. Mild stenosis of the right intervertebral neural foramen. C6-7: Anterior marginal spurs. Normal endplates. Moderate disc space height narrowing. Normal central canal and intervertebral neural foramina. C7-T1: Normal endplates. Normal disc height, signal and morphology. Normal central canal and intervertebral neural foramina. T1-T2 and T2-3: (Sagittal only). Normal endplates. Normal disc height and morphology. Normal central canal and intervertebral neural foramina. T3-T4: (Sagittal only). Normal endplates. Small left posterior marginal spurs. Normal central canal and intervertebral neural foramina. T4-T5: (Sagittal only). Anterior marginal spurs. Normal endplates. Normal disc height and morphology. Normal central canal and intervertebral neural foramina. Normal cervical cord. Prominent left thyroid lobe due to presence of thyroid nodules. MRI/Spine Cervical (Routine) IMPRESSION: 1. Prominent left C5-C6 ventral extradural defect is due to prominent marginal spurs. This is causing mild displacement of the left ventral cord surface and moderate stenosis of the left intervertebral neural foramen. 2. No MRI evidence of cervical extruded disc fragment. 3. No intrinsic signal abnormality of the spinal cord. 4. Enlarged left thyroid lobe due to presence of thyroid nodules. Electronically Signed: Michael Berry MD at 12:33 EST , Service support ,
--- NOTE | 2020-09-10 07:31 | MRI_ITS ---
STUDY: MRI LUMBAR SPINE WITHOUT CONTRAST REASON FOR EXAM: Female, 75 years old. Stenosis TECHNIQUE: Standardized fat and water weighted pulse sequences were obtained in the sagittal and axial planes. COMPARISON: None FINDINGS: T12-L1: (Sagittal only). Normal endplates. Normal disc height, hydration and morphology. Normal central canal and bilateral lateral recesses. Normal bilateral intervertebral neural foramina. Normal lumbar lordosis. There is no substantial scoliosis. Normal conus medullaris that terminates at the T12-L1 disc level. L1-2: Anterior marginal spurs. Normal endplates. Minimal disc space height narrowing. Normal degenerative retrolisthesis of L1 on L2. Normal central canal and bilateral lateral recesses. Mild degenerative facet arthropathy. Normal bilateral intervertebral neural foramina. L2-3: Normal endplates. Normal disc height. Small posterior bulging disc. Moderately pronounced central canal stenosis with an AP canal diameter of 6.3 mm. Normal bilateral lateral recesses. Moderately pronounced bilateral degenerative facet hypertrophy. Normal bilateral intervertebral neural foramina. L3-4: Normal endplates. Normal disc height. Mild degenerative anterolisthesis of L3 on L4. Severe central canal stenosis with an AP canal diameter of 4 mm. Normal bilateral lateral recesses. Pronounced bilateral degenerative facet hypertrophy. Normal bilateral intervertebral neural foramina. L4-5: Normal endplates. Normal disc height. Minimal degenerative anterolisthesis of L4 on L5. Mild central canal stenosis with an AP canal diameter of 9 mm. Pronounced bilateral degenerative facet hypertrophy. Normal bilateral lateral recesses. Mild stenosis of the bilateral intervertebral neural foramina. L5-S1: Normal endplates. Normal disc height, hydration and morphology. Normal central canal and bilateral lateral recesses. Pronounced left degenerative facet hypertrophy. Moderately pronounced right degenerative facet hypertrophy. Normal bilateral intervertebral neural foramina. Normal visualized sacral ala. Normal visualized paraspinous soft tissue structures. MRI/Spine Lumbar (Routine) IMPRESSION: 1. Severe central canal stenosis at L3-L4 disc space level with an AP canal diameter of 4 mm, mild degenerative anterolisthesis of L3 on L4 and pronounced bilateral degenerative facet hypertrophy. 2. Moderately pronounced central canal stenosis at L2-L3 disc space level with an AP canal diameter of 6.3 mm, small posterior annular bulging disc and moderately pronounced bilateral degenerative facet hypertrophy. 3. Mild central canal stenosis at L4-L5 disc space level with an AP canal diameter of 9 mm, minimal degenerative anterolisthesis of L4 on L5 and pronounced bilateral lateral degenerative facet hypertrophy. 4. No MRI evidence of lumbar extruded disc fragment. Electronically Signed: Michael Berry MD at 12:42 EST , Service support ,
--- NOTE | 2020-09-10 07:31 | MRI_ITS ---
STUDY: MRI THORACIC SPINE WITHOUT CONTRAST REASON FOR EXAM: Female, 75 years old. Stenosis TECHNIQUE: Standardized fat and water weighted pulse sequences were obtained in the sagittal and axial planes. COMPARISON: None. FINDINGS: Normal kyphosis of the thoracic spine. There is no substantial scoliosis. T1-2, T2-3, T3-4, T4-5, T5-6, T6-7, T7-8, T8-9, T9-10, T10-11, T11-12: MODIC type II degenerative vertebral marrow fatty changes underneath the vertebral endplates with anterior and posterior marginal spurs and moderate disc space height narrowing at T5-T6 and T6 C7 disc space levels. Benign focal fatty infiltrations in the in the posterior vertebral bodies of T10 and T11. Prominent benign focal fatty infiltration in the left posterior T12 vertebral body. Normal visualized thoracic cord. Normal conus medullaris that terminates at the T12-L1 disc level. The soft tissue structures are unremarkable. MRI/Spine Thoracic (Routine) IMPRESSION: 1. No MRI evidence of thoracic extruded disc fragment or spinal stenosis. 2. Normal thoracic spinal cord. Electronically Signed: Michael Berry MD at 12:35 EST , Service support ,
== END ==
PROVIDERS: PCP Family Medicine Geriatric Medicine; Referring Provider Family Medicine Geriatric Medicine; Visit Provider Family Medicine Geriatric Medicine
DX: M48.061 Spinal stenosis, lumbar region without neurogenic claudication (principal); M48.02 Spinal stenosis, cervical region; M54.6 Pain in thoracic spine; S09.90XA Unspecified injury of head, initial encounter
CPT/HCPCS: 70551; 72141; 72146; 72148

== ENCOUNTER → 2020-09-15 13:46 | Outpatient (CLI) | payer MEDICARE, BC, SELFPAY ==
[2018-04-22 17:33] VITALS: BMI 40.9
--- NOTE | 2020-09-15 14:06 | RAD_ITS ---
STUDY: X-RAY - ABDOMEN/PELVIS REASON FOR EXAM: Female, 75 years old. N/V X1 WEEK TECHNIQUE: AP supine and upright views of the abdomen and pelvis. COMPARISON: None. FINDINGS: Normal visualized lung bases. Nondistended stomach. Few air-filled mildly dilated or hypotonic Central small bowel loops and an average amount of colon gas present without central stool collection. There is no demonstrated free abdominal air. Negative for gross organomegaly. Status post cholecystectomy. Normal soft tissue structures. Degenerative changes of the lumbar spine. RAD/Abd Inc Decub and/or Erect IMPRESSION: Nonspecific abdominal bowel gas pattern with mildly distended or hypotonic scattered small bowel loops with an average amount of colon content without a substantial amount of solid stool. More of a nonobstructive ileus type pattern. Negative for bowel perforation or evidence of obstruction. Status post cholecystectomy without gross organomegaly. Electronically Signed: Adore Reid MD at 20:54 EST , Service support ,
== END ==
PROVIDERS: PCP Family Medicine Geriatric Medicine; Referring Provider Family Medicine Geriatric Medicine; Visit Provider Family Medicine Geriatric Medicine
DX: N39.0 Urinary tract infection, site not specified (principal)
CPT/HCPCS: 74019; 87086; 87088; 87186

== ENCOUNTER 2020-09-17 06:00 | Inpatient (IN) | payer MEDICARE, BC, SELFPAY ==
[2020-09-17] VITALS (31 sets, daily range): BP systolic 112–172; BP diastolic 63–119; PULSE 80–143; RESP 16–26; TEMP 35.7–36.9; O2SAT 94–100; BMI 38.4; BMI 37.8; BMI 37.9
--- NOTE | 2020-09-17 06:14 | RAD_ITS ---
HISTORY: sob,weakness, nausea/vomiting, poor appetite. pinched nerve in back. patient thinks her Tquot;tongue is curvedTquot; ADDITIONAL HISTORY: None provided. EXAMINATION/TECHNIQUE: XR Chest 1 View AP/PA Number of images including paperwork: 1 COMPARISON: None FINDINGS: LUNGS AND PLEURA: No consolidation, mass or pleural effusion. CARDIAC SILHOUETTE: Unremarkable. MEDIASTINUM AND KARLA: Unremarkable. UPPER ABDOMEN: Unremarkable. SKELETON AND SOFT TISSUES: No acute skeletal findings. Degenerative changes. OTHER DEVICES AND HARDWARE: None. RAD/Chest 1 View (Portable) IMPRESSION: No acute cardiopulmonary abnormality. at 0658 Reported and signed by: Rand Potts MD Electronically Signed: Rand Potts MD at 6:58 EST Tel , Service support ,
--- NOTE | 2020-09-17 06:14 | EKG12_ITS ---
Test Reason : CP Blood Pressure : / mmHG Vent. Rate : 147 BPM Atrial Rate : 153 BPM P-R Int : 000 ms QRS Dur : 076 ms QT Int : 304 ms P-R-T Axes : 000 031 -65 degrees QTc Int : 475 ms Atrial fibrillation with rapid ventricular response ST & T wave abnormality, consider inferolateral ischemia Abnormal ECG Confirmed by VICKIE BALDWIN, URVASHI ([id number]), social media editor DANAE KRUEGER ([id number]) on 09/20/2020 1:10:15 PM Referred By: INES Confirmed By:URVASHI JOHNSTON MD
--- NOTE | 2020-09-17 06:15 | ED.DCSUM_ITS ---
History of Present Illness Chief Complaint: General Illness Informant: Patient Onset: Days Context: Gradual Onset Timing: Continuous Current Severity: Moderate Maximum Severity: Severe Narrative: Patient is a 75-year-old female with medical history significant for hypertension the presents to the emergency department with shortness of breath. The patient has had 2 weeks of back pain that radiates down her right leg. She states she was in her bathroom and lost her balance. She states she slipped but never fell. She states since that time, she has had a burning pain down her right leg. She has seen her primary care. She had ultrasound which showed no evidence of DVT. She underwent MRIs a few days ago, but she was unsure of the results. She denies any trouble urinating or moving her bowels. She states for the past week, she has been having shortness of breath. She states is worse with exertion. She states he has a difficult time lying flat. She denies any fevers. She denies any cough. She denies any other systemic complaints. Patient has no history of coronary vascular disease. She denies any history of A. fib. Prior similar symptoms: No Recent Illness/Hospitalization: No Past Medical History - Allergies and Home Meds Allergies/Adverse Reactions: Allergies hydrocodone [From Vicodin] Allergy (Verified 09/17/20 06:06) Other severe headache Primary Care Physician: Honorio Nettles Chi, MD [Primary Care Provider] - Prior records reviewed: Yes Past Medical History: - - Hypertension, thyroid disease Surgical History: noncontributory Smoking Status: Never smoker Review of Systems General: Reports: Malaise. Denies: Chills, Fever, Sweats Eyes: Denies: Visual changes - bilaterally, Diplopia ENT: Denies: Rhinorrhea, Sore throat Cardiovascular: Reports: Palpitations. Denies: Chest pain Respiratory: Reports: Dyspnea, Cough, Dyspnea on exertion Gastrointestinal: Denies: Abdominal pain, Nausea, Vomiting, Diarrhea, Melena, Hematochezia Genitourinary: Denies: Dysuria, Hematuria, Frequency Musculoskeletal: Reports: Back pain. Denies: Extremity Pain Skin: Denies: Rash, Wounds Neurological: Denies: Headache, Weakness, Numbness Physical Exam Vital Signs/Narrative: Vital Signs Temp Pulse Resp BP Pulse Ox 09/17/20 06:02 98.4 F 143 H 26 H 172/114 H 95 Inital Vital Signs reviewed: Yes General: Well nourished, Well developed, No Acute Distress Head: Normocephalic, Atraumatic Eyes: Perrl, EOMI ENT: Moist mucous membranes, No rhinorrhea Neck: Supple, Nontender Cardiovascular: No murmurs, Irregular, Tachycardia Respiratory: No distress, Chest nontender, Diminished Abdomen: Soft, Nontender, Nondistended, Normal bowel sounds Back: Nontender, Normal Inspection Extremities: Nontender, Edema - 1+ symmetric Skin: Normal color, No rash Neurological: Alert, Oriented x3, Cranial nerves II-XII grossly intact, Normal Strength, Normal Sensation Psychological: Normal affect, Normal Mood Diagnostic/Tx/Re-eval Chest X-Ray - ED: 1 View, Read by ED Physician, Normal, Heart, Mediastinum, Cardiomegaly, CHF Abnormal Lab Results 09/17/20 09/17/20 09/17/20 06:15 06:15 06:15 WBC 13.4 H RBC 4.37 Hgb 13.5 Hct 41.8 MCV 95.7 MCH 30.9 MCHC 32.3 RDW Std Deviation 46.3 H RDW Coeff of Eladia 13.1 Plt Count 209 MPV 8.3 Immature Gran % (Auto) 0.500 Neut % (Auto) 70.3 H Lymph % (Auto) 21.9 [place] % (Auto) 6.8 Eos % (Auto) 0.1 Baso % (Auto) 0.4 Absolute Neuts (auto) 9.5 H Absolute Lymphs (auto) 2.94 Nucleated RBC % 0 PT 14.8 INR 1.2 APTT 22.4 L Sodium 145 Potassium 3.1 L Chloride 111 H Carbon Dioxide 24.0 Anion Gap 10 BUN 30 H Creatinine 1.11 H Estim Creat Clear Calc 30.49 Est GFR (MDRD) Af Amer 61 Est GFR (MDRD) Non-Af 51 L BUN/Creatinine Ratio 27.0 H Glucose 170 H Calcium 8.6 Total Bilirubin 0.80 AST 13 L ALT 28 Alkaline Phosphatase 61 Troponin I < 0.015 Total Protein 6.7 Albumin 3.2 Globulin 3.5 Albumin/Globulin Ratio 0.9 - Rhythm Strip Rhythm Strip: A-fib Rate: 150 Ectopy: PAC(s) - EKG Initial EKG Interpretation: Atrial Fibrillation, Non-Specific ST Changes Prior: Changed - Medical Decision Making The patient presents with multiple complaints. Her largest complaint is of weakness, nausea, and shortness of breath. On arrival, EKG was obtained. The patient is in atrial fibrillation with rapid ventricular response. She denies any history of prior A. fib. Patient was started on diltiazem. After infusion, her heart rate is down to the 80s and she is feeling symptomatically improved. Chest x-ray does show some cephalization without evidence of acute infiltrate or effusion. Metabolic work-up was pursued. Patient is hypokalemic. Her cardiac enzymes are normal. She does have some improvement in rate control. Covid is currently pending. Plan will be to admit the patient for continued rate control, likely echo, and further evaluation. Patient was discussed with the hospitalist. Impression 1. New onset atrial fibrillation with rapid ventricular response 2. Exertional dyspnea 3. Hypokalemia ED Disposition - Plan for ED Patient: Referrals: Honorio Nettles Chi, MD [Primary Care Provider] -
[2020-09-17] MEDS: dilTIAZem 25 MG/5 ML Vial 15 MG IV BOLUS (06:22)
[2020-09-17 06:23] LABS: Absolute Lymphocyte Count 2.94 X10^3/uL (0.83-4.51); Absolute Neutrophil Count 9.5 X10^3/uL (2.0-7.7); Basophil# 0.05 X10^3/uL; Basophil% 0.4 % (0-1); Eosinophil# 0.02 X10^3/uL; Eosinophils% 0.1 % (0-5); Hematocrit 41.8 % (37-47); Hemoglobin 13.5 g/dL (12.0-15.0); Lymphocyte # 2.94 X10^3/ul (4.0); Lymphocyte % 21.9 % (19-41); Mean Corp Hgb Conc 32.3 g/dL (32-36); Mean Corpuscular Hgb 30.9 pg (27.0-32.0); Mean Corpuscular Volume 95.7 fL (81-99); Mean Platelet Vol. 8.3 fl (6.2-12.0); Monocyte# 0.91 X10^3/uL; Monocyte% 6.8 % (0-10); NRBC Flagged by Analyzer 0 % (0-5); Neutrophil # 9.45 X10^3/uL (2.7-7.7); Neutrophil % 70.3 % (47-70); Platelet Count 209 K/mm3 (150-450); RBC Distribution Width CV 13.1 % (11.6-14.6); RBC Distribution Width SD 46.3 fl (35.1-43.9); Red Blood Count 4.37 M/mm3 (4.2-5.4); White Blood Count 13.4 K/mm3 (4.4-11.0)
[2020-09-17 06:29] LABS: International Normalized Ratio 1.2; Partial Thromboplast Time 22.4 Seconds (24.1-36.2); Prothrombin Time (Protime)PT. 14.8 SECONDS (11.7-14.9)
[2020-09-17 06:51] LABS: ALB/GLOB Ratio 0.9 RATIO (0.9-2.4); AST(SGOT) 13 U/L (15-37); Alanine Aminotransfer ALT/SGPT 28 U/L (13-56); Albumin, Serum 3.2 g/dL (3.2-5.0); Alkaline Phosphatase 61 U/L (45-117); Anion Gap 10 (5-15); BUN 30 mg/dL (7-18); Calcium,Total 8.6 mg/dL (8.5-10.1); Chloride 111 mmol/L (98-107); Creatinine, Serum 1.11 mg/dL (0.55-1.02); EST Glomerular Filtration Rate 51 mL/min (>60); Est Glom Filt Rate - Afr Amer 61 mL/min (>60); Estimated Creatinine Clearance 30.49 ml/min; Globulin 3.5 g/dL (2.2-4.2); Glucose 170 mg/dL (74-106); Potassium 3.1 mmol/L (3.5-5.1); Protein, Total 6.7 g/dL (6.4-8.2); Sodium Level 145 mmol/L (136-145)
--- NOTE | 2020-09-17 09:34 | HP.PCM_ITS ---
Problem List (1) HTN (hypertension) Status: Chronic (2) Dysphagia Status: Acute (3) Atrial fibrillation and flutter Status: Acute (4) Falls Status: Acute (5) Spinal stenosis Status: Chronic (6) Osteoarthritis Status: Chronic (7) Dehydration Status: Acute (8) Hypokalemia Status: Acute (9) Leukocytosis Status: Acute History of Present Illness Date of Admission: 09/17/20 Mrs Samuels is a 75 year old F with a PMH of spinal stenosis, HTN, vitamin D deficiency and OA who presented to the ED at [facility] on 09/17/2020 with SOB. She states that it started it about a week ago and has associated it with a fall and burning pain down her R leg that started about 2 weeks prior. She did have a workup by her PCP for this that included an MRI of her spine (showed Severe Spinal Stenosis in the lumbar spine and DJD/DDD) and a LE US that was neg for DVT. SHe also states that she has been having difficultly swallowing lately and it feels like the food is stuck and comes back up sometimes. She states that even liquids can be a problem at times and this is relatively new as well. She states that she has had the SOB on and off and it is definitely worse with exertion. In the ED her EKG showed atrial fibrillation and she is in flutter for my exam. This is new for her. Upon presentation her HR was in the 140's+ but now is in the upper 90's on a Cardizem ggt. She has a mild leukocytosis but appears a bit dry with mild PIERRE and elevated Cl. She has a K of 3.1 which was replaced in the ED. BGT is 170 but pt has no known h/o DM. A CXR was done and shows no acute processes. She will be admitted to the PCU for further work-up and care Past Medical History Past Medical History (Chronic Problems): Chronic Problems HTN (hypertension) (Chronic) Spinal stenosis (Chronic) Osteoarthritis (Chronic) Allergies hydrocodone [From Vicodin] Allergy (Verified 09/17/20 06:06) Other severe headache Home Medications: Ambulatory Orders Medication Instructions Recorded Ergocalciferol [Vitamin D] 50,000 unit PO Q7D 04/02/18 Potassium 99 mg PO DAILY 04/02/18 Valsartan/Hydrochlorothiazide 1 each PO QHS 04/02/18 [Valsartan-Hctz 160-12.5 mg Tab] Acetaminophen [Tylenol] 1,000 mg PO Q8 #90 tab 04/24/18 Oxycodone [Oxyir] 5 - 10 mg PO Q6H PRN PRN 7 Days 04/24/18 #80 tab cycloBENZAPRine HCl [Flexeril] 5 mg PO Q12.TCU PRN 7 Days #14 tab 04/24/18 Amoxicillin/Potassium Clav 10 ml PO Q12H 09/17/20 [Augmentin 250 Suspension] Losartan Potassium [Cozaar] 50 mg PO DAILY 09/17/20 hydroCHLOROthiazide 12.5 mg PO DAILY 09/17/20 [Hydrochlorothiazide] Surgical History: noncontributory Psychiatric History: No pertinent psych hx Smoking Status: Never smoker Tobacco Use: Non-smoker Alcohol: Rare Drugs: None - *Family History Paternal History Items: - - Graves disease Sibling History Items: - - graves disease Review of Systems Constitutional: Reports: Weakness, Fatigue. Denies: Anorexia, Chills, Fever, Night Sweats, Malaise, Weight Change Eyes: Denies: Blurred vision, Double vision, Drainage, Eyelid Inflammation, Pain, Redness, Vision Change HEENT: Denies: Difficulty Hearing, Difficulty Swallowing, Dysphasia, Head Aches, Nasal bleeding, Nasal Congestion, Post Nasal Drip, Sinus Congestion, Sinus Drainage, Sore Throat, Visual Changes Cardiovascular: Reports: Light Headedness, Palpitations. Denies: Chest Pain, Claudication, Chest Pressure, Chest Tightness, Edema, Heaviness, Orthopnea, Paroxysmal Noc. Dyspnea, Syncope Respiratory: Reports: Shortness of Breath, Shortness of breath at rest, Shortness of breath upon exertion. Denies: Cough, Hemoptysis, Pleuritic Pain, Sputum production, Wheezing Gastrointestinal: Reports: Nausea, Vomiting. Denies: Abdominal Pain, Constipation, Diarrhea, Dyspepsia, Hematemesis, Hematochezia, Melena Genitourinary: Denies: Dysuria, Frequency, Hematuria, Hesitancy, Incontinence, Nocturia, Retention, Urgency Musculoskeletal: Reports: Back Pain, Joint stiffness, Leg Pain, Neck Pain. Denies: Joint Pain, Joint swelling, Joint Tenderness Skin: Denies: Dryness, Jaundice, Lesions, Pruritis, Rash, Skin Changes, Wounds Neurological: Reports: Tingling - Leg. Denies: Balance problems, Blurred vision, Double vision, Change in Speech, Slurred speech, Confusion, Difficulty swallowing, Focal weakness, Headaches, Incoordination, Numbness, Tremor, Seizures Psychiatric: Denies: Anxiety, Depression Endocrine: Denies: Change in Body Habitus, Heat/ Cold Intolerance, Polydipsia, Polyuria Hematologic/ Lymphatic: Reports: Anemia. Denies: Adenopathy, Easy Bruising, Easy Bleeding, Petechiae, Purpura VTE Information - Inpt Only VTE Present on Admission: No VTE Mechan Device Prophylaxis: None VTE Pharm Prophylaxis ordered?: No Reason prophylaxis not ordered:: Medical Contraindication - therapeutic lovenox - Physical Exam Vitals/I&O's: Vital Signs Temp Pulse Resp BP Pulse Ox 96.3 F L 82 20 H 140/95 H 100 09/17/20 09:05 09/17/20 09:05 09/17/20 09:05 09/17/20 09:05 09/17/20 09:05 Oxygen Delivery Method Room Air Weight: 89.3 kg Body Mass Index (BMI) 38.4 Intake and Output for Last 24 Hours 09/15/20 09/16/20 09/17/20 23:59 23:59 23:59 Intake Total 8.83 / 8.83 Balance 8.83 / 8.83 General: Alert, Oriented x3, Cooperative, No apparent distress, Well developed, Well nourished, - - older WF sitting up in bed appears comfortable, very talkative and hard to keep focused on present issues HEENT: Atraumatic, PERRLA, EOMI, Normocephalic, EAC Clear Oral: Moist Mucosa, No Gingival or Mucosal Lesions/ Ulcerations, - - Mallampati 3 Neck: Supple, No JVD, Negative Carotid Bruits, Negative Hepatojugular Reflux, No Nodes, No Nuchal Rigidity, Trachea Midline, Thyroid Normal Size and Texture Lungs: Clear to auscultation, Normal air movement, No rhonchi, No wheeze, No rales Cardiovascular: Normal S1, No murmurs, No Ectopic Activity, Irregular Rate, No rub noted, No Gallop, Tachycardic Abdomen: Bowel Sounds Present, Soft, Non Tender, Non-Distended, No hernias noted Extremities: No clubbing, No cyanosis, No edema, Capillary Refill Less than 3 Seconds, Peripheral Pulses Normal Skin: No rashes Musculoskeletal: No Tenderness to Palpation of Joints or Extremities, No Muscle Wasting, Arthritic Changes Lymphatic: No Cervical, Supraclavicular, or Inguinal Adenopathy Neurological: Cranial nerves II-XII grossly intact, Neuro grossly intact, Muscle tone normal, Sensory exam intact to light touch and pain, Coordination normal Psych/Mental Status: Normal Affect, Appropriate Microbiology Past 72 Hours 09/17/20 06:20 Mucosa - Nasopharyngeal SARS-CoV-2 Antigen (Rapid) - Final Laboratory Results 09/17/20 06:15: WBC 13.4 H, RBC 4.37, Hgb 13.5, Hct 41.8, MCV 95.7, MCH 30.9, MCHC 32.3, RDW Std Deviation 46.3 H, RDW Coeff of Eladia 13.1, Plt Count 209, MPV 8.3, Immature Gran % (Auto) 0.500, Neut % (Auto) 70.3 H, Lymph % (Auto) 21.9, [place] % (Auto) 6.8, Eos % (Auto) 0.1, Baso % (Auto) 0.4, Absolute Neuts (auto) 9.5 H, Absolute Lymphs (auto) 2.94, Nucleated RBC % 0 09/17/20 06:15: PT 14.8, INR 1.2, APTT 22.4 L 09/17/20 06:15: Sodium 145, Potassium 3.1 L, Chloride 111 H, Carbon Dioxide 24.0, Anion Gap 10, BUN 30 H, Creatinine 1.11 H, Estim Creat Clear Calc 30.49, Est GFR (MDRD) Af Amer 61, Est GFR (MDRD) Non-Af 51 L, BUN/Creatinine Ratio 27.0 H, Glucose 170 H, Calcium 8.6, Total Bilirubin 0.80, AST 13 L, ALT 28, Alkaline Phosphatase 61, Troponin I < 0.015, Total Protein 6.7, Albumin 3.2, Globulin 3.5, Albumin/Globulin Ratio 0.9 09/17/20 06:15: B-Natriuretic Peptide 291.0 H Current Medications Diltiazem HCl 125 mg/ Dextrose 125 mls @ 5 mls/hr IV .Q25H [facility]; Protocol Last Titration: 09/17/20 07:49 Dose: 15 mg/hr, 15 mls/hr Documented by: Assessment/Plan All Active Problems Dysphagia (Acute) Atrial fibrillation and flutter (Acute) Falls (Acute) Dehydration (Acute) Hypokalemia (Acute) Leukocytosis (Acute) New Onset A-fib/flutter with RVR -continue cardizem ggt initiated in ED -Start therapeutic lovenox -check TSH-->family with h/o Graves -Check ECHO -Cards consulted Dysphagia -check Barium swallow test -if abn will have [employer]IED [employer] see -cardiac diet for now as I am not really concerned as much about aspiration with a Neg CXR Hypokalemia -replaced -recheck in am -Mag level in am PIERRE 2/2 dehydration -1 L LR -repeat lab in am -BNP up but i think that is more related to her fib/flutter as she does not appear to be in acute heart failure Leukocytosis -no s/o infection -will hydrate pt -cbc in am HTN -continue home losartan Spinal Stenosis/Falls -will need ortho referral as outpt -PT/OT to see here DVT Prophylaxis -therapeutic Lovenox Code Status Full Inpatient E&M: 79391 Init Hosp L3
--- NOTE | 2020-09-17 10:52 | ECHOCS_ITS ---
Reason For Study: Afib/Flutter Procedure This was a 2D Doppler, Color Flow transthoracic echocardiogram. The study was technically difficult. Contrast injection was performed. Exam performed portable in patient room. Left Ventricle Normal LV size. Left ventricular systolic function is normal. The estimated ejection fraction is 65 %. Unable to assess diastolic dysfunction. No regional wall motion abnormalities noted. Right Ventricle Normal RV size. Normal systolic function. Atria The left atrium is mildly enlarged. Normal right atrium. No doppler evidence for ASD. Mitral Valve There is no mitral annular calcification. Normal mitral valve. Trivial mitral valve insufficiency. Tricuspid Valve Normal tricuspid valve. Mild tricuspid valve insufficiency. Right ventricular systolic pressure estimated to be 37 mmHg. Aortic Valve Trisinus/trileaflet aortic valve. Normal aortic valve. Pulmonic Valve The pulmonic valve is not well visualized. Trivial pulmonic valve insufficiency. Great Vessels Normal sized aortic root. Pericardium/Pleural No pericardial effusion. Medication Diluted definity 2ml given slow IV push to enhance endocardial definition. MMode/2D Measurements & Calculations LVIDd: 4.2 cm IVSd: 1.3 cm Ao root diam: 3.4 cm LVIDs: 2.5 cm LVPWd: 0.97 cm LA dimension: 3.6 cm FS: 41.3 % LAV(MOD-bp): 64.5 ml LA A4 area: 19.7 cm2 RA A4 area: 17.0 cm2 LAV(MOD-bp) Indexed: 34.9 ml/m2 LAV(MOD-sp2): 68.6 ml LAV(MOD-sp4): 51.7 ml Doppler Measurements & Calculations MV E max antonette: 95.2 cm/sec MV V2 max: 69.3 cm/sec Ao V2 max: 100.7 cm/sec MV max P.9 mmHg Ao max P.2 mmHg LV V1 max: 94.7 cm/sec PA V2 max: 82.8 cm/sec TR max antonette: 293.3 cm/sec LV V1 max P.6 mmHg TR max P.4 mmHg Interpretation Summary The study was technically difficult. Contrast injection was performed. Left ventricular systolic function is normal. The estimated ejection fraction is 65 %. The left atrium is mildly enlarged. Trivial mitral valve insufficiency. Mild tricuspid valve insufficiency. Trivial pulmonic valve insufficiency. Right ventricular systolic pressure estimated to be 37 mmHg. Unable to assess diastolic dysfunction. Ordering Physician: Patti Yuan Referring Physician: Honorio Nettles Chi Performed By: Franc Kemp RCS
[2020-09-17] MEDS: Enoxaparin 100 MG/ML Syringe 90 MG SC ×2 (12:48→20:31)
--- NOTE | 2020-09-17 13:05 | MDS.RN ---
Patient to Swallow study with Chaya SHELDON at [id number]
--- NOTE | 2020-09-17 13:50 | ST.MBS ---
Modified Barium Swallow - Patient Information Study Date: 09/17/20 Study Time: 13:00 Direct Billable Minutes: 120 Total Minutes procedure & reportin Diagnosis: dysphagia, unspecified Referring Physician: Patti Yuan Reason for Referral: Patient reports food feeling like it gets stuck. Medical History: The patient is a 75 year old F with a PMH of spinal stenosis, HTN, vitamin D deficiency and OA who presented to the ED at [facility] on 09/17/2020 with SOB. She states that it started it about a week ago and has associated it with a fall and burning pain down her R leg that started about 2 weeks prior. She did have a workup by her PCP for this that included an MRI of her spine (showed Severe Spinal Stenosis in the lumbar spine and DJD/DDD) and a LE US that was negative for DVT. She also states that she has been having difficultly swallowing lately and it feels like the food is stuck and comes back up sometimes. She states that even liquids can be a problem at times and this is relatively new as well. She states that she has had the SOB on and off and it is definitely worse with exertion. In the ED her EKG showed atrial fibrillation and she is in flutter for my exam. This is new for her. Upon presentation her HR was in the 140's+ but now is in the upper 90's on a Cardizem ggt. She has a mild leukocytosis but appears a bit dry with mild PIERRE and elevated Cl. She has a K of 3.1 which was replaced in the ED. BGT is 170 but patient has no known h/o DM. A CXR was done and shows no acute processes. The patient is admitted to the PCU for further work-up and care. Current Diet Ordered: Regular/Thin Dentition: Edentulous Mental Status: WNL Respiratory Status: Oxygenating on Room Air - Study Findings Consistencies: Thin Liquid, [place] Thick Liquid, Honey Thick Liquid, Pudding, Cookie - Penetration-Aspiration Scale Penetration-Aspiration Scale: OBJECTIVE ASSESSMENT OF SWALLOW FUNCTION (QUANTITATIVE ? PER TRIAL): PENETRATION / ASPIRATION SCALE (ACEVEDO): 1 = does not enter airway 2 = enters airway/above vocal folds/ejected 3 = enters airway/above vocal folds/not ejected 4 = enters airway/contacts vocal folds/ejected 5 = enters airway/contacts vocal folds/not ejected 6 = enters airway/below vocal folds/ejected 7 = enters airway/below vocal folds/not ejected despite effort 8 = enters airway/below vocal folds/no effort - Penetration-Aspiration Scale Score Thin Liquid via teaspoon Result: 1= does not enter airway Thin Liquid via teaspoon Trial 2 Result: 1= does not enter airway Thin Liquid via small single sip from cup Result: 1= does not enter airway Thin Liquid via large single sip from cup Result: 1= does not enter airway Thin Liquid via sequential sips from cup Result: 2= enter airway/above vocal folds/ejected Comment: The patient stated it wouldn't go down and began to spit some of liquid out while attempting to swallow. [place] Thick Liquid via small single sip from cup Result: 1= does not enter airway Honey Thick Liquid via small single sip from cup Result: 1= does not enter airway Pudding via teaspoon Result: 1= does not enter airway Cookie Result: 1= does not enter airway Comment: Piecemeal swallows; little to no epiglottic inversion. Thin Liquid via sequential sips from straw Result: 1= does not enter airway Thin Liquid via sequential sips from cup Trial 2 Result: 1= does not enter airway - Oral Phase Labial Seal: No Labial Escape Tongue Control During Bolus Hold: Posterior escape of less than half of bolus Bolus Preparation/Mastication: Slow prolonged chewing/mashing with complete recollection Bolus Transport/Lingual Motion: Slowed tongue motion Oral Residue: Residue collection on oral structures - Pharyngeal Phase Initiation of Pharyngeal Swallow: Bolus head in valleculae Soft Palate Elevation: No bolus between soft palate and pharyngeal wall Laryngeal Elevation: Partial superior movement thyroid cart/partial apprx aryt-epig petiole Anterior Hyoid Excursion: Partial anterior movement Epiglottic Movement: No inversion Laryngeal Vestibule Closure at Height of Swallow: Incomplete; narrow column of air/contrast in laryngeal vestibule Pharyngeal Stripping Wave: Present - diminished Pharyngoesophageal Segment Opening: Parital distension and partial duration; parital obstruction of flow Tongue Base Retraction: Narrow column of contrast between tongue base & post. pharyngeal wall Pharyngeal Residue: Collection of residue within or on pharyngeal structures - Diagnosis/Impression Diagnosis: mild oropharyngeal dysphagia (R13.12) Impression: The patient has reported symptoms of food feeling like it won't go down, particularly just past the back of tongue. The patient was found to have little to no epiglottic inversion throughout trials completed leaving patient susceptible to increased risk of decreased airway protection and aspiration. The patient reports having dentures but does not generally wear them. Patient edentulous for evaluation. With solid Cyndi Doone cookie, the patient demonstrated prolonged mastication and several piecemeal swallows. Due to poor epiglottic inversion, pharyngeal residue remained in the valleculae resulting in patient requiring liquid chaser to fully clear after attempting several swallows on her own. The patient demonstrated no aspiration during this evaluation with any of the trials. The patient had penetration of thin liquid above vocal cords with ejection of the liquid one time when taking sequential sips from cup. - Recommendations Diet: Mechanical Soft Textures, Thin Liquids Compensatory Strategies: Small Bites, Small Sips, Slow Rate, Alternate bites/solids and sips/liquids, Sitting upright, Remain sitting upright for 30 minutes after PO intake Recommend Repeat Modified Barium Swallow: No Need for Skilled Speech Therapy Services: Yes Recommended Referrals: ENT Consult Education Completed: 1. Described result of evaluation., 2. Pt understands evaluation & agrees with goals and treatment plan. - Status Active ST Patient: Active - Contact Information [facility] Speech Therapy:: Vandana Ball MA, CCC-LACE TEARING SUPERVISOR [address], [place] [address] [email or web address]
[2020-09-17] MEDS: Lactated Ringers 1,000 ML 50 ML IV (14:10)
[2020-09-17] MEDS: Losartan Potassium 50 MG Tablet PO (14:11)
--- NOTE | 2020-09-17 16:08 | NURSING ---
Per Atiya in Pharmacy, ok to run Amio and LR y'ed in together
[2020-09-17] MEDS: Amiodarone 360 MG in Dextrose 5% Viaflo Bag 192.8 ML 33.3 MG CONT INF (16:51)
--- NOTE | 2020-09-17 17:22 | CON.PCM_ITS ---
Problem List (1) Atrial fibrillation and flutter Status: Acute (2) HTN (hypertension) Status: Chronic (3) Shortness of breath Status: Acute Reason for Consult Date of Consultation: 09/17/20 History of Present Illness: The patient is a 75 year old white female with a past medical history of hypertension who was referred for evaluation of atrial fibrillation with RVR [place] perimposed upon a recent history of feeling more short of breath. She states that she has had multiple musculoskeletal injuries. She had a mechanical fall. She states she has been feeling more short of breath and dyspneic. She presented to the hospital for further evaluation. She was found to be in atrial fibrillation with RVR. She was placed in the PCU for further evaluation and care. She initiated medical therapy with IV diltiazem. She denies any ongoing chest discomfort. She states she has felt more short of breath and dyspneic recently. She describes no acute orthopnea or PND. She does not describe worsening peripheral pitting edema. There has been no near syncope or syncope. She had cardiac enzymes performed which have been negative thus far. Her ECG demonstrated atrial fibrillation with RVR with nonspecific ST and T wave abnormality. Her chest x-ray demonstrated no acute cardiopulmonary disease process. Her COVID-19 study was reported as negative. [] Past Medical History Allergies/Adverse Reactions: Allergies hydrocodone [From Vicodin] Allergy (Verified 09/17/20 06:06) Other severe headache Home Medications: Ambulatory Orders Medication Instructions Recorded Ergocalciferol [Vitamin D] 50,000 unit PO Q7D 04/02/18 Potassium 99 mg PO DAILY 04/02/18 Acetaminophen [Tylenol] 1,000 mg PO Q8 #90 tab 04/24/18 Amoxicillin/Potassium Clav 10 ml PO Q12H 09/17/20 [Augmentin 250 Suspension] Losartan Potassium [Cozaar] 50 mg PO DAILY 09/17/20 hydroCHLOROthiazide 12.5 mg PO DAILY 09/17/20 [Hydrochlorothiazide] Past Medical History (Chronic Problems): Chronic Problems HTN (hypertension) (Chronic) Spinal stenosis (Chronic) Osteoarthritis (Chronic) Surgical History: noncontributory Psychiatric History: No pertinent psych hx - *Family History Paternal History Items: - - Graves disease Sibling History Items: - - graves disease Smoking Status: Never smoker Tobacco Use: Non-smoker Alcohol: Rare Drugs: None Review of Systems - Review of Systems General: Denies: Fever, Night Sweats, Fatigue Cardiovascular: Reports: Shortness of Breath. Denies: Chest Discomfort, Orthopnea, PND, Peripheral Edema, Palpitations, Lightheadedness, Dizziness, Near Syncope, Syncope Respiratory: Reports: Shortness of Breath. Denies: Cough, Sputum Production, Hemoptysis Gastrointestinal: Denies: Hematemesis, Hematochezia, Melena Genitourinary: Denies: Dysuria, Hematuria Skin: Denies: Rash Subjectve: This is a 75-year-old white female appears to be resting comfortably at the moment in no acute distress. Objective: Vital Signs Temp Pulse Resp BP Pulse Ox 98.2 F 82 22 H 149/89 H 94 09/17/20 15:52 09/17/20 16:35 09/17/20 16:35 09/17/20 16:35 09/17/20 16:38 Oxygen Delivery Method Room Air Weight: 194 lb 0.108 oz Body Mass Index (BMI) 37.8 Intake and Output for Last 24 Hours 09/15/20 09/16/20 09/17/20 23:59 23:59 23:59 Intake Total 268.00 / 268.00 Balance 268.00 / 268.00 General: Awake, Alert, Oriented x 3, Cooperative, No Acute Distress, Obese HEENT: Atraumatic, Normocephalic, PERRL, EOMI, Sclera Non Icteric Neck: Supple, Good ROM, No JVD Lungs: Clear to auscultation Cardiovascular: Irregular Rhythm, Normal S1, Normal S2 Abdomen: Bowel Sounds Present, Soft Extremities: No edema Psych/Mental Status: Appropriate 09/17/20 06:15: WBC 13.4 H, RBC 4.37, Hgb 13.5, Hct 41.8, MCV 95.7, MCH 30.9, MCHC 32.3, Plt Count 209, MPV 8.3, Immature Gran % (Auto) 0.500, Neut % (Auto) 70.3 H, Lymph % (Auto) 21.9, Emery % (Auto) 6.8, Eos % (Auto) 0.1, Baso % (Auto) 0.4, Absolute Neuts (auto) 9.5 H, Nucleated RBC % 0 09/17/20 06:15: PT 14.8, INR 1.2, APTT 22.4 L 09/17/20 06:15: Sodium 145, Potassium 3.1 L, Chloride 111 H, Carbon Dioxide 24.0, Anion Gap 10, BUN 30 H, Creatinine 1.11 H, Est GFR (MDRD) Af Amer 61, Est GFR (MDRD) Non-Af 51 L, BUN/Creatinine Ratio 27.0 H, Glucose 170 H, Calcium 8.6, Total Bilirubin 0.80, Troponin I < 0.015 09/17/20 06:15: B-Natriuretic Peptide 291.0 H 09/17/20 12:10: Troponin I 0.018 09/17/20 15:02: Troponin I < 0.015 Rhythm: Atrial fibrillation EKG: As noted above ECHO: Interpretation Summary The study was technically difficult. Contrast injection was performed. Left ventricular systolic function is normal. The estimated ejection fraction is 65 %. The left atrium is mildly enlarged. Trivial mitral valve insufficiency. Mild tricuspid valve insufficiency. Trivial pulmonic valve insufficiency. Right ventricular systolic pressure estimated to be 37 mmHg. Unable to assess diastolic dysfunction. Assessment/Plan 1. Atrial fibrillation with RVR The etiology may be multifactorial. This could be related to a combination of the patient's age as well as her history of hypertension. She is undergoing evaluation for any other acute cardiovascular or noncardiac etiology that may be contributing to it. The present time she is being monitored. She is on rate control therapy. It may be reasonable to attempt antiarrhythmic therapy with IV amiodarone to see if this will help slow and/or convert her rhythm to sinus rhythm. She will also be on anticoagulant therapy as deemed appropriate. She is also been evaluated with an echocardiogram with results as noted. It would not be unreasonable to consider a pharmacologic stress nuclear imaging study to evaluate for any obvious evidence of myocardial ischemia contributing to her symptoms and/or findings. Depending upon her clinical course she may need to be considered for future attempt at synchronized biphasic DC cardioversion to regain sinus rhythm. 2. Hypertension She has a history of hypertension. She will continue medical management with adjustment as needed. 3. Shortness of breath/dyspnea She does note she is become more short of breath and dyspneic recently. Is unclear whether this is related to her atrial fibrillation or a separate etiology. Thus from a cardiovascular standpoint she will continue her evaluation care as needed. Comment: The patient's case has been discussed and reviewed with the patient. This note was generated using a voice recognition system and there may be incorrect words, spelling or punctuation that were not noted when reviewing the office note prior to saving.
[2020-09-18] VITALS (34 sets, daily range): BP systolic 123–177; BP diastolic 57–104; PULSE 58–89; RESP 18–33; TEMP 36.6–36.7; O2SAT 94–100
[2020-09-18] MEDS: Amiodarone 360 MG in Dextrose 5% Viaflo Bag 192.8 ML 16.7 MG CONT INF (00:21)
[2020-09-18] MEDS: Nitroglycerin (INPATIENT USE) 0.4 MG TAB.SUBL SUBLINGUAL ×3 (01:33→01:45)
--- NOTE | 2020-09-18 01:36 | EKG12_ITS ---
Test Reason : CP Blood Pressure : / mmHG Vent. Rate : 076 BPM Atrial Rate : 076 BPM P-R Int : 138 ms QRS Dur : 078 ms QT Int : 430 ms P-R-T Axes : 041 032 044 degrees QTc Int : 483 ms Normal sinus rhythm Normal ECG Confirmed by DINA BALDWIN, SANG ([id number]), video tape editor LEONOR GUTIERREZ ([id number]) on 09/22/2020 1:19:06 PM Referred By: DR KUMAR Confirmed By:SANG ARROYO MD
[2020-09-18] MEDS: Losartan Potassium 50 MG Tablet PO ×2 (06:34→13:15)
[2020-09-18] MEDS: Aspirin 81 MG TAB.CHEW PO (06:34)
[2020-09-18 06:43] LABS: Absolute Lymphocyte Count 1.38 X10^3/uL (0.83-4.51); Absolute Neutrophil Count 10.4 X10^3/uL (2.0-7.7); Basophil# 0.03 X10^3/uL; Basophil% 0.2 % (0-1); Eosinophil# 0.01 X10^3/uL; Eosinophils% 0.1 % (0-5); Hematocrit 39.5 % (37-47); Hemoglobin 12.9 g/dL (12.0-15.0); Lymphocyte # 1.38 X10^3/ul (4.0); Lymphocyte % 10.8 % (19-41); Mean Corp Hgb Conc 32.7 g/dL (32-36); Mean Corpuscular Hgb 31.5 pg (27.0-32.0); Mean Corpuscular Volume 96.6 fL (81-99); Mean Platelet Vol. 8.8 fl (6.2-12.0); Monocyte# 0.81 X10^3/uL; Monocyte% 6.4 % (0-10); NRBC Flagged by Analyzer 0 % (0-5); Neutrophil % 81.8 % (47-70); Platelet Count 141 K/mm3 (150-450); RBC Distribution Width CV 13.2 % (11.6-14.6); RBC Distribution Width SD 46.8 fl (35.1-43.9); Red Blood Count 4.09 M/mm3 (4.2-5.4); White Blood Count 12.7 K/mm3 (4.4-11.0)
[2020-09-18 07:20] LABS: Anion Gap 4 (5-15); BUN 21 mg/dL (7-18); BUN/Creat Ratio 30.7 RATIO (10-20); Calcium,Total 8.5 mg/dL (8.5-10.1); Chloride 108 mmol/L (98-107); Cholesterol 120 mg/dL (200); Creatinine, Serum 0.68 mg/dL (0.55-1.02); EST Glomerular Filtration Rate 89 mL/min (>60); Est Glom Filt Rate - Afr Amer 107 mL/min (>60); Estimated Creatinine Clearance 33.84 ml/min; Glucose 106 mg/dL (74-106); High Density Lipoprotein 46 mg/dL; Magnesium 2.4 mg/dL (1.6-2.6); Phosphorus 2.8 mg/dL (2.5-4.9); Potassium 4.1 mmol/L (3.5-5.1); Sodium Level 139 mmol/L (136-145); Thyroid Stim Hormone (TSH) 0.16 uIU/mL (0.358-3.74); Triglycerides 84 mg/dL; Very Low Density Lipoprotein 17 mg/dL (5-40)
--- NOTE | 2020-09-18 11:10 | CASEMGMT ---
RN CM Face to Face with patient for initial transition planning/care coordination assessment. RN CM introduced self and role at [facility]. Patient lying in bed, alert and oriented. Patient willing to participate in assessment and is able to answer all questions appropriately. Care providers, pharmacy, and demographics verified. Patient wishes to discharge home, denies need for home health at this time. Patient states she has no further needs or concerns at this time. CM to follow for discharge planning needs that may arise. PCP: Tho Specialists: none [facility]erred [facility]acy[facility] Insurance: Sophia NIEVES Prescription Benefit: yes Living Will/HPOA: yes, Aristides Samuels LNOK: Living Arrangements: Patient lives with in a single story home with 2 steps to enter the home. Patient states she is independent at home. Transportation: self/ DME/HHC: Patient states she has a tub bench , cane, walker, grab bars at home. Patient denies previous HHC. Patient give [employer] savings card for at discharge. Disposition Plan: Patient to discharge home with family support and follow-up plans in place. Yessy LAZARO, RN, CM
--- NOTE | 2020-09-18 11:44 | PN.CARD_ITS ---
Subjectve: The patient appears to be resting comfortably at this time with no new acute complaints. Objective: Vital Signs Temp Pulse Resp BP Pulse Ox 98 F 79 28 H 161/101 H 97 09/18/20 09:00 09/18/20 11:00 09/18/20 11:00 09/18/20 11:00 09/18/20 11:00 Oxygen Delivery Method Room Air Weight: 196 lb 13.965 oz Body Mass Index (BMI) 37.8 Intake and Output for Last 24 Hours 09/16/20 09/17/20 09/18/20 23:59 23:59 23:59 Intake Total 771.75 / 1005.25 1386.08 / 1386.08 Output Total 475 / 625 300 / 300 Balance 296.75 / 380.25 1086.08 / 1086.08 General: Awake, Alert, Oriented x 3, Cooperative, No Acute Distress, Obese HEENT: Atraumatic, Normocephalic, PERRL, EOMI, Sclera Non Icteric Neck: Supple, Good ROM, No JVD Lungs: Clear to auscultation Cardiovascular: Regular Rhythm, Normal S1, Normal S2 Abdomen: Bowel Sounds Present, Soft Extremities: No edema Neurological: No Focal Motor or Sensory Deficit Psych/Mental Status: Appropriate 09/17/20 12:10: Troponin I 0.018 09/17/20 15:02: Troponin I < 0.015 09/18/20 06:15: WBC 12.7 H, RBC 4.09 L, Hgb 12.9, Hct 39.5, MCV 96.6, MCH 31.5, MCHC 32.7, Plt Count 141 L, MPV 8.8, Immature Gran % (Auto) 0.700, Neut % (Auto) 81.8 H, Lymph % (Auto) 10.8 L, [place] % (Auto) 6.4, Eos % (Auto) 0.1, Baso % (Auto) 0.2, Absolute Neuts (auto) 10.4 H, Nucleated RBC % 0 09/18/20 06:15: Sodium 139, Potassium 4.1, Chloride 108 H, Carbon Dioxide 27.0, Anion Gap 4 L, BUN 21 H, Creatinine 0.68, Est GFR (MDRD) Af Amer 107, Est GFR (MDRD) Non-Af 89, BUN/Creatinine Ratio 30.7 H, Glucose 106, Calcium 8.5, Phosphorus 2.8, Magnesium 2.4, Triglycerides 84, Cholesterol 120, LDL Cholesterol 57, VLDL Cholesterol 17, HDL Cholesterol 46 Rhythm: Sinus rhythm Stress test: Stress Test Report Date: 09-18-2020 Procedure: Pharmacologic stress nuclear imaging study Indications: Shortness of breath/dyspnea; atrial fibrillation Consent: Per the patient Procedure: The patient underwent pharmacologic (Regadenoson) evaluation with a peak heart rate of 92 beats per minute (64%predicted maximal heart rate) and a peak blood pressure of 155/72 mmHg. The baseline ECG demonstrated normal sinus rhythm. The peak pharmacologic ECG demonstrated no obvious ECG changes. There were no cardiac dysrhythmias pretest, during pharmacologic infusion, or recovery. There was no complaint of chest discomfort during pharmacologic infusion or recovery. The examination was discontinued secondary to completion of protocol. Impression: 1. Pharmacologic (Regadenoson) evaluation 2. Peak pharmacologic ECG with no obvious ECG changes. 3. There were no cardiac dysrhythmias pretest, during pharmacologic infusion, or recovery. 4. Nuclear images pending Myocardial perfusion imaging study: Technique: The patient was injected with 12.0 millicuries of technetium 99m Cardiolite and subsequently rest SPECT Cardiolite nuclear imaging was obtained in the horizontal long, vertical long, and short axis views. The patient underwent pharmacologic (Regadenoson) evaluation with a peak heart rate of 92 beats per minute (64% percent predicted maximal heart rate) and a peak blood pressure of 155/72 mmHg. The patient was injected with 36.0 millicuries of technetium 99m Cardiolite and subsequently stress SPECT Cardiolite nuclear imaging was obtained in the horizontal long, vertical long, and short axis views. A gated Cardiolite study at peak stress was obtained. Interpretation: Rest and stress SPECT Cardiolite nuclear imaging status post realignment, normalization, and attenuation correction demonstrate relative uniform tracer uptake and myocardial perfusion appearing within normal limits. There is end systolic thickening and brightening. The gated Cardiolite study demonstrates myocardial thickening and inward wall motion. The reported LVEF is 77%. Impression: 1. Rest and stress SPECT Cardiolite nuclear imaging demonstrate relative uniform tracer uptake and myocardial perfusion appearing within normal limits. 2. The gated Cardiolite study reports an LVEF of 77%. Medical Necessity - Tobacco Use Smoking Status: Never smoker Tobacco Use: Non-smoker Assessment/Plan 1. Atrial fibrillation with RVR The etiology may be multifactorial. This could be related to a combination of the patient's age as well as her history of hypertension. The present time she is being monitored. She has converted back to sinus rhythm. At the present time she will continue rate control therapy, antiarrhythmic therapy, and anticoagulant therapy. 2. Hypertension She has a history of hypertension. She will continue medical management with adjustment as needed. 3. Shortness of breath/dyspnea She does note she is become more short of breath and dyspneic recently. Is unclear whether this is related to her atrial fibrillation or a separate etiology. Hopefully being back in sinus rhythm will be beneficial to her. If she persists with concerns of shortness of breath/dyspnea then she may need further noncardiac evaluation as well. Comment: The patient's case has been discussed and reviewed with the patient and Dr. Duran. This note was generated using a voice recognition system and there may be incorrect words, spelling or punctuation that were not noted when reviewing the office note prior to saving.
[2020-09-18] MEDS: Metoprolol Tartrate 25 MG Tablet PO ×2 (13:14→21:26)
[2020-09-18] MEDS: APIXABAN 5 MG TABLET PO ×2 (13:15→21:27)
--- NOTE | 2020-09-18 15:42 | EKG12_ITS ---
Test Reason : CP Blood Pressure : / mmHG Vent. Rate : 073 BPM Atrial Rate : 073 BPM P-R Int : 130 ms QRS Dur : 082 ms QT Int : 420 ms P-R-T Axes : 044 024 029 degrees QTc Int : 462 ms Normal sinus rhythm Normal ECG Confirmed by DINA BALDWIN, SANG ([id number]), medical editor LEONOR GUTIERREZ ([id number]) on 09/22/2020 1:19:59 PM Referred By: STEVE Confirmed By:SANG ARROYO MD
[2020-09-18] MEDS: Mag Hydrox/Al Hydrox/Simeth 30 ML UDC PO (16:29)
--- NOTE | 2020-09-18 17:37 | PCM.PROGNOTE ---
Patient Problems: Active and Suspected Problems Dysphagia (Acute) Atrial fibrillation and flutter (Acute) Falls (Acute) Dehydration (Acute) Hypokalemia (Acute) Leukocytosis (Acute) Shortness of breath (Acute) Subjective: She was seen and examined today, I discussed her care with cardiology. Patient underwent a cardiac stress test today which did not show evidence of reversible ischemia. Patient remains in sinus rhythm at this time. - Physical Exam Vitals/I&O's: Vital Signs Temp Pulse Resp BP Pulse Ox 98 F 73 18 160/85 H 100 09/18/20 15:39 09/18/20 15:39 09/18/20 15:39 09/18/20 15:39 09/18/20 15:39 Oxygen Delivery Method Room Air Weight: 89.3 kg Body Mass Index (BMI) 37.8 Intake and Output for Last 24 Hours 09/16/20 09/17/20 09/18/20 23:59 23:59 23:59 Intake Total 771.75 / 1005.25 1957.75 / 1957.75 Output Total 475 / 625 700 / 700 Balance 296.75 / 380.25 1257.75 / 1257.75 General: Alert, Oriented x3, Cooperative, No apparent distress, Well developed, Well nourished HEENT: Atraumatic, PERRLA, EOMI, Normocephalic Oral: Moist Mucosa Neck: Supple, No JVD, Negative Carotid Bruits, No Nuchal Rigidity, Trachea Midline, Thyroid Normal Size and Texture Lungs: Clear to auscultation, Normal air movement, No rhonchi, No wheeze, No rales Cardiovascular: Regular rate, Regular Rhythm, Normal S1, Normal S2, No murmurs, PMI Normal, No rub noted, No Gallop Abdomen: Bowel Sounds Present, Soft, Non Tender, Non-Distended Extremities: No clubbing, No cyanosis, No edema, Capillary Refill Less than 3 Seconds Skin: No rashes, No breakdown Musculoskeletal: No Tenderness to Palpation of Joints or Extremities Neurological: Cranial nerves II-XII grossly intact, Neuro grossly intact, Sensory exam intact to light touch and pain Psych/Mental Status: Normal Affect, Appropriate, Alert and oriented to time, place, person, mood and affect Microbiology Past 72 Hours 09/17/20 06:20 Mucosa - Nasopharyngeal SARS-CoV-2 Antigen (Rapid) - Final Laboratory Results 09/18/20 06:15: WBC 12.7 H, RBC 4.09 L, Hgb 12.9, Hct 39.5, MCV 96.6, MCH 31.5, MCHC 32.7, RDW Std Deviation 46.8 H, RDW Coeff of Eladia 13.2, Plt Count 141 L, MPV 8.8, Immature Gran % (Auto) 0.700, Neut % (Auto) 81.8 H, Lymph % (Auto) 10.8 L, [place] % (Auto) 6.4, Eos % (Auto) 0.1, Baso % (Auto) 0.2, Absolute Neuts (auto) 10.4 H, Absolute Lymphs (auto) 1.38, Nucleated RBC % 0 09/18/20 06:15: Sodium 139, Potassium 4.1, Chloride 108 H, Carbon Dioxide 27.0, Anion Gap 4 L, BUN 21 H, Creatinine 0.68, Estim Creat Clear Calc 33.84, Est GFR (MDRD) Af Amer 107, Est GFR (MDRD) Non-Af 89, BUN/Creatinine Ratio 30.7 H, Glucose 106, Calcium 8.5, Phosphorus 2.8, Magnesium 2.4, Triglycerides 84, Cholesterol 120, LDL Cholesterol 57, VLDL Cholesterol 17, HDL Cholesterol 46, TSH 0.16 L Current Medications Acetaminophen (Acetaminophen 325 Mg Tablet) 650 mg PO Q6H PRN PRN PRN Reason: Pain Score 1-10/Temp > 100.7 F Al Hydroxide/Mg Hydroxide (Mag Hydrox/Al Hydrox/Simeth 30 Ml Udc) 30 ml PO Q6H PRN PRN PRN Reason: Gastric Burning Last Admin: 09/18/20 16:29 Dose: 30 ml Documented by: Albuterol Sulfate (Albuterol 2.5 Mg/3 Ml Vial.Neb.) 2.5 mg INHALATION Q2H PRN PRN PRN Reason: SOB/Wheezing Apixaban (Apixaban 5 Mg Tablet) 5 mg PO BID [facility] Last Admin: 09/18/20 13:15 Dose: 5 mg Documented by: Aspirin (Aspirin 81 Mg Tab.Chew) 81 mg PO DAILY@0800 [facility] Last Admin: 09/18/20 06:34 Dose: 81 mg Documented by: Sodium Chloride () 250 mls @ 15 mls/hr IV .[id number] PRN PRN Reason: Saline Flush Sodium Chloride () 250 mls @ 15 mls/hr IV .[id number] PRN PRN Reason: Additional IVPB Infusion Losartan Potassium (Losartan Potassium 50 Mg Tablet) 50 mg PO DAILY [facility] Last Admin: 09/18/20 06:34 Dose: 50 mg Documented by: Losartan Potassium (Losartan Potassium 100 Mg Tablet) 100 mg PO DAILY [facility] Melatonin (Melatonin 3 Mg Tablet) 3 mg PO QHS PRN PRN PRN Reason: INSOMNIA Metoprolol Tartrate (Metoprolol Tartrate 25 Mg Tablet) 25 mg PO BID [facility] Last Admin: 09/18/20 13:14 Dose: 25 mg Documented by: Nitroglycerin (Nitroglycerin (Inpatient Use) 0.4 Mg Tab.Subl) 0.4 mg SUBLINGUAL Q5M PRN PRN Reason: CARDIAC/CHEST PAIN Last Admin: 09/18/20 01:45 Dose: 0.4 mg Documented by: Ondansetron HCl (Ondansetron 4 Mg/2 Ml Vial) 4 mg IV Q8H PRN PRN PRN Reason: NAUSEA/VOMITING Senna/Docusate Sodium (Senna/Docusate Sodium 1 Tablet) 2 tablet PO BID PRN PRN PRN Reason: Constipation Sodium Chloride (0.9% Saline Lock 10 Ml Syringe) 10 - 40 ml IV UD PRN PRN Reason: SALINE FLUSH Medical Necessity - Tobacco Use Smoking Status: Never smoker Tobacco Use: Non-smoker Assessment/Plan All Active Problems Dysphagia (Acute) Atrial fibrillation and flutter (Acute) Falls (Acute) Dehydration (Acute) Hypokalemia (Acute) Leukocytosis (Acute) Shortness of breath (Acute) #1 atrial fibrillation with RVR-patient is converted back to sinus rhythm, rate control medication and antiarrhythmic therapy will be continued as well as anticoagulant therapy. #2 essential hypertension #3 dysphagia-patient is being seen by speech therapy, diet will be adjusted #4 hypokalemia-resolved at this time #5 acute kidney injury-resolved at this time #6 leukocytosis-etiology unclear at this time Inpatient E&M: 43015 [facility] H[facility] L2
[2020-09-18] MEDS: Senna/Docusate Sodium 1 Tablet 2 TABLET PO (21:30)
[2020-09-19 03:11] VITALS: PULSE 68
[2020-09-19 03:31] VITALS: BP 157/75; PULSE 70; RESP 15; TEMP 37.3; O2SAT 97
[2020-09-19 07:55] VITALS: PULSE 76
[2020-09-19 09:30] VITALS: BP 177/72; PULSE 77; RESP 20; TEMP 37.3; O2SAT 97
--- NOTE | 2020-09-19 10:11 | PCM.PN.CARD ---
Subjectve: The patient appears without acute chest discomfort or difficulty breathing today. She has had no obvious evidence of palpitations. Objective: Vital Signs Temp Pulse Resp BP Pulse Ox 99.2 F H 76 15 157/75 H 97 09/19/20 03:31 09/19/20 07:55 09/19/20 03:31 09/19/20 03:31 09/19/20 03:31 Oxygen Delivery Method Room Air Weight: 191 lb 12.835 oz Body Mass Index (BMI) 37.8 Intake and Output for Last 24 Hours 09/17/20 09/18/20 09/19/20 23:59 23:59 23:59 Intake Total 771.75 / 1005.25 1957.75 / 1957.75 250 / 250 Output Total 475 / 625 700 / 700 525 / 525 Balance 296.75 / 380.25 1257.75 / 1257.75 -275 / -275 General: Awake, Alert, Oriented x 3, Cooperative, No Acute Distress, Obese HEENT: Atraumatic, Normocephalic, PERRL, EOMI, Sclera Non Icteric Neck: Supple, Good ROM, No JVD Lungs: Clear to auscultation Cardiovascular: Regular Rhythm, Normal S1, Normal S2 Abdomen: Bowel Sounds Present, Soft Extremities: No edema Psych/Mental Status: Appropriate Rhythm: Sinus rhythm Medical Necessity - Tobacco Use Smoking Status: Never smoker Tobacco Use: Non-smoker Assessment/Plan 1. Atrial fibrillation with RVR The etiology may be multifactorial. This could be related to a combination of the patient's age as well as her history of hypertension. The present time she is being monitored. She has converted back to sinus rhythm. At the present time she will continue rate control therapy, antiarrhythmic therapy, and anticoagulant therapy. This will include beta-levi therapy, oral amiodarone therapy, and oral anticoagulant therapy. She will need future follow-up of her hepatic and thyroid studies. If noticed her TSH has been somewhat chronically on the low side. This will need to be followed while she is on her medical therapy for any significant changes that would warrant alteration in her medical therapy and/or further evaluation care of her underlying thyroid function studies. 2. Hypertension She has a history of hypertension. She will continue medical management with adjustment as needed. 3. Shortness of breath/dyspnea Hopefully this will improve now that she is in sinus rhythm. Comment: The patient's case has been discussed and reviewed with the patient and her via telephone conversation during the patient's evaluation. This note was generated using a voice recognition system and there may be incorrect words, spelling or punctuation that were not noted when reviewing the office note prior to saving.
[2020-09-19] MEDS: amLODIPine 5 MG Tablet PO (10:43)
[2020-09-19 10:44] VITALS: PULSE 77
[2020-09-19] MEDS: Aspirin 81 MG TAB.CHEW PO (10:44)
[2020-09-19] MEDS: Metoprolol Tartrate 25 MG Tablet PO (10:44)
[2020-09-19] MEDS: Losartan Potassium 100 MG Tablet PO (10:45)
[2020-09-19] MEDS: APIXABAN 5 MG TABLET PO (10:46)
--- NOTE | 2020-09-19 12:22 | PCM.DC ---
- Discharge Diagnoses Current Active Problems: Current Active and Chronic Problems HTN (hypertension) (Chronic) Dysphagia (Acute) Atrial fibrillation and flutter (Acute) Falls (Acute) Spinal stenosis (Chronic) Osteoarthritis (Chronic) Dehydration (Acute) Hypokalemia (Acute) Leukocytosis (Acute) Shortness of breath (Acute) You will use the following diet at home:: No restrictions Your food should be the consistency of: Regular Your liquids should be the consistency of: Regular/Thin Discharge Activity: Return to Normal Activity Weight Bearing Status: Full weight bearing Allergies/Adverse Reactions: Allergies hydrocodone [From Vicodin] Allergy (Verified 09/17/20 06:06) Other severe headache Medications to take at Discharge Ergocalciferol [Vitamin D] 50,000 unit PO Q7D 04/02/18 Acetaminophen [Tylenol] 1,000 mg PO Q8 #90 tab 04/24/18 Amiodarone HCl [Cordarone] 200 mg PO UD #56 tab 09/19/20 Amlodipine [Norvasc] 5 mg PO DAILY #30 tab 09/19/20 Apixaban [Eliquis] 5 mg PO BID #60 tab 09/19/20 Aspirin [Aspirin, Baby] 81 mg PO DAILY@0800 tab.chew 09/19/20 Losartan Potassium [Cozaar] 100 mg PO DAILY #30 tab 09/19/20 Metoprolol Tartrate [Lopressor (beta levi)] 25 mg PO BID #60 tab 09/19/20 The following prescriptions were given: Amiodarone HCl [Cordarone] 200 mg PO UD #56 tab Transmission Status: Pending to [facility] Losartan Potassium [Cozaar] 100 mg PO DAILY #30 tab Transmission Status: Pending to [facility] Apixaban [Eliquis] 5 mg PO BID #60 tab Transmission Status: Pending to [facility] Metoprolol Tartrate [Lopressor (beta levi)] 25 mg PO BID #60 tab Transmission Status: Pending to [facility] Amlodipine [Norvasc] 5 mg PO DAILY #30 tab Transmission Status: Pending to [facility] Primary Care Physician: Honorio Nettles Chi, MD [Primary Care Provider] - Please follow up with your Primary Care Physician in: in 3 weeks Test Results: Test results from this visit will be discussed in further detail at your follow-up appointment, if applicable. Please Follow Up With: Izaiah Rodriguez MD When: in two weeks-call for appointment
[2020-09-19 13:47] VITALS: BP 125/68; PULSE 70; RESP 16; TEMP 36.2; O2SAT 98
[2020-09-19] MEDS: Amiodarone 200 MG Tablet PO (13:51)
--- NOTE | 2020-09-19 16:49 | DS.PCM_ITS ---
Discharge Date and Diagnosis - Problem List Patient Problems: Active and Suspected Problems Dysphagia (Acute) Atrial fibrillation and flutter (Acute) Falls (Acute) Dehydration (Acute) Hypokalemia (Acute) Leukocytosis (Acute) Shortness of breath (Acute) Date of Admission: 09/17/20 Date of Discharge: 09/19/20 - Primary Discharge Diagnosis Acute Problems: Active Problems #1 atrial fibrillation with RVR-patient is converted back to sinus rhythm #2 essential hypertension #3 Oropharyngeal dysphagia #4 hypokalemia #5 acute kidney injury #6 leukocytosis-etiology unclear - Secondary Discharge Diagnosis Chronic Problems: Chronic Problems HTN (hypertension) (Chronic) Spinal stenosis (Chronic) Osteoarthritis (Chronic) Hospital Course and Treatment Operations: None Procedures: 2-D Echocardiogram, Nuclear stress test, - - Videofluoroscopic swallow exam Summary of Care Provided: The patient is a 75 year old F who presented to the emergency room at [facility] with a chief complaint of shortness of breath, weakness, and nausea. On arrival to the emergency room, an EKG was obtained the patient was found to be in atrial fibrillation with a rapid ventricular response, patient was started on diltiazem IV and her heart rate decreased down into the 80s and she felt symptomatically improved. Chest x-ray does not show any evidence of gross CHF. Cardiac enzymes are normal, patient's potassium was slightly low at 3.1. Patient was admitted to PCU, potassium supplementation was given to the patient, and she converted spontaneously to normal sinus rhythm. She was seen in consultation by cardiology who performed an echocardiogram and a nuclear stress test. Patient's nuclear stress test showed no evidence of reversible ischemia, patient's cardiac medications were adjusted by cardiology. Echocardiogram showed a preserved ejection fraction with mild pulmonary hypertension. Patient was seen by speech therapy and dietary changes were recommended, the patient underwent a videofluoroscopic swallow exam and was deemed safe to eat with modifications to her diet. The exact reason for her oropharyngeal dysphagia was not known. On 09/19/2020, patient was seen and examined: On examination she appeared in good health and spirits, she does not appear to be in any distress. Vital signs as documented. Skin warm and dry and without overt rashes. Neck without JVD, thyroid appears normal, trachea is midline, neck is supple. Lungs clear, normal air movement was noted. Heart exam notable for regular rhythm, normal sounds and absence of murmurs, rubs or gallops. Abdomen unremarkable and without evidence of organomegaly, masses, or abdominal aortic enlargement, bowel sounds are present in all 4 quadrants, no abdominal tenderness was noted. Extremities nonedematous, no cyanosis was noted, no clubbing was noted. Neuro: Cranial nerves II through XII are grossly intact, no focal motor deficits were noted, sensation to light touch and pinprick is intact, motor exam 5/5 throughout. Psych: Patient is alert and oriented x3, she does not appear anxious or depressed, she does not appear agitated. Patient appeared to be stable for discharge on 09/19/2020. Patient Problems: Active and Suspected Problems Dysphagia (Acute) Atrial fibrillation and flutter (Acute) Falls (Acute) Dehydration (Acute) Hypokalemia (Acute) Leukocytosis (Acute) Shortness of breath (Acute) - Physical Exam Vitals/I&O's: Vital Signs Temp Pulse Resp BP Pulse Ox 97.2 F L 70 16 125/68 H 98 09/19/20 13:47 09/19/20 13:47 09/19/20 13:47 09/19/20 13:47 09/19/20 13:47 Oxygen Delivery Method Room Air Weight: 87 kg Body Mass Index (BMI) 37.8 Intake and Output for Last 24 Hours 09/17/20 09/18/20 09/19/20 23:59 23:59 23:59 Intake Total 771.75 / 1005.25 1957.75 / 1957.75 490 / 490 Output Total 475 / 625 700 / 700 525 / 525 Balance 296.75 / 380.25 1257.75 / 1257.75 -35 / -35 Microbiology Past 72 Hours 09/17/20 06:20 Mucosa - Nasopharyngeal SARS-CoV-2 Antigen (Rapid) - Final Discharge Activity: Return to Normal Activity Weight Bearing Status: Full weight bearing Home Medications: Medications to take at Discharge Ergocalciferol [Vitamin D] 50,000 unit PO Q7D 04/02/18 Acetaminophen [Tylenol] 1,000 mg PO Q8 #90 tab 04/24/18 Amiodarone HCl [Cordarone] 200 mg PO UD #56 tab 09/19/20 Amlodipine [Norvasc] 5 mg PO DAILY #30 tab 09/19/20 Apixaban [Eliquis] 5 mg PO BID #60 tab 09/19/20 Aspirin [Aspirin, Baby] 81 mg PO DAILY@0800 tab.chew 09/19/20 Losartan Potassium [Cozaar] 100 mg PO DAILY #30 tab 09/19/20 Metoprolol Tartrate [Lopressor (beta levi)] 25 mg PO BID #60 tab 09/19/20 Following Prescriptions Were Given to Patient: Amiodarone HCl [Cordarone] 200 mg PO UD #56 tab Transmission Status: Received by [facility] Losartan Potassium [Cozaar] 100 mg PO DAILY #30 tab Transmission Status: Received by [facility] Apixaban [Eliquis] 5 mg PO BID #60 tab Transmission Status: Received by [facility] Metoprolol Tartrate [Lopressor (beta levi)] 25 mg PO BID #60 tab Transmission Status: Received by [facility] Amlodipine [Norvasc] 5 mg PO DAILY #30 tab Transmission Status: Received by [facility] Primary Care Physician: Honorio Nettles Chi, MD [Primary Care Provider] - Please follow up with your Primary Care Physician in: in 3 weeks Please Follow Up With: Izaiah Rodriguez MD When: in two weeks-call for appointment Disposition: Home Minutes spent on discharge:: 32 Patient Condition:: Stable Medical Necessity - Tobacco Use Smoking Status: Never smoker Tobacco Use: Non-smoker Meaningful Use Info Meaningful Use Diagnoses (Choose all that apply): None applicable Inpatient E&M: 25582 [facility] H[facility]
== END 2020-09-19 14:23 | disposition home or self-care (01) | DRG 309 ==
LOC: ED 09:23 → PCU 10:33
PROVIDERS: Admitting Provider Internal Medicine; Emergency Provider Emergency Medicine; PCP Family Medicine Geriatric Medicine; Visit Provider Internal Medicine
DX: I48.91 Unspecified atrial fibrillation (principal); N17.9 Acute kidney failure, unspecified; E87.6 Hypokalemia; I48.92 Unspecified atrial flutter; R13.12 Dysphagia, oropharyngeal phase; I10 Essential (primary) hypertension; D72.829 Elevated white blood cell count, unspecified; E86.0 Dehydration; M51.36 Other intervertebral disc degeneration, lumbar region; M48.061 Spinal stenosis, lumbar region without neurogenic claudication; M19.90 Unspecified osteoarthritis, unspecified site; Z79.899 Other long term (current) drug therapy; E66.9 Obesity, unspecified; Z68.37 Body mass index [BMI] 37.0-37.9, adult
CPT/HCPCS: 36415; 71045; 74019; 74230; 78452; 80048; 80053; 80061; 83735; 83880; 84100; 84443; 84484; 85025; 85610; 85730; 87086; 87088; 87186; 87426; 92526; 92611; 93005; 93017; 93306; 97110; 97162; 97166; 97530; 99251; 99285; A9500; J7120; Q9957; A4216; C8929; G0463; J2785

== ENCOUNTER → 2020-09-23 12:15 | Outpatient (CLI) | payer MEDICARE, BC, SELFPAY ==
[2020-09-17 11:06] VITALS: BMI 37.8
--- NOTE | 2020-09-23 12:20 | RAD_ITS ---
STUDY: X-RAY - RIGHT ANKLE REASON FOR EXAM: Right ankle pain, bruising, no specific injury. TECHNIQUE: 3 view(s) of the ankle. COMPARISON: None. FINDINGS: Normal visualized distal tibia and fibula. Normal medial and lateral malleoli. Normal tibiotalar articulation and ankle mortise. There is a posterior calcaneal enthesophyte. The visualized subtalar, talonavicular, calcaneocuboid and tarsal articulations are normal. There is soft tissue swelling. RAD/Ankle min 3 Views IMPRESSION: Posterior calcaneal enthesophyte. Soft tissue swelling. No demonstrated fracture. Electronically Signed: Denver Marie MD at 12:41 EST Tel , Service support ,
== END ==
PROVIDERS: PCP Family Medicine Geriatric Medicine; Visit Provider Family Medicine Geriatric Medicine
DX: M25.571 Pain in right ankle and joints of right foot (principal)
CPT/HCPCS: 73610

== ENCOUNTER → 2020-10-01 11:33 | Outpatient (CLI) | payer MEDICARE, BC, SELFPAY ==
[2020-09-17 11:06] VITALS: BMI 37.8
[2020-10-01 13:21] LABS: Absolute Lymphocyte Count 1.56 X10^3/uL (0.83-4.51); Absolute Neutrophil Count 5.9 X10^3/uL (2.0-7.7); Basophil# 0.07 X10^3/uL; Basophil% 0.8 % (0-1); Eosinophil# 0.16 X10^3/uL; Eosinophils% 1.9 % (0-5); Hematocrit 44.1 % (37-47); Hemoglobin 13.6 g/dL (12.0-15.0); Lymphocyte # 1.56 X10^3/ul (4.0); Lymphocyte % 18.8 % (19-41); Mean Corp Hgb Conc 30.8 g/dL (32-36); Mean Corpuscular Volume 97.4 fL (81-99); Mean Platelet Vol. 8.8 fl (6.2-12.0); Monocyte# 0.63 X10^3/uL; Monocyte% 7.6 % (0-10); NRBC Flagged by Analyzer 0 % (0-5); Neutrophil # 5.85 X10^3/uL (2.7-7.7); Neutrophil % 70.5 % (47-70); Platelet Count 400 K/mm3 (150-450); RBC Distribution Width CV 13.5 % (11.6-14.6); RBC Distribution Width SD 48.7 fl (35.1-43.9); Red Blood Count 4.53 M/mm3 (4.2-5.4); White Blood Count 8.3 K/mm3 (4.4-11.0)
== END ==
PROVIDERS: PCP Family Medicine Geriatric Medicine; Referring Provider Family Medicine Geriatric Medicine; Visit Provider Family Medicine Geriatric Medicine
DX: K92.1 Melena (principal)
CPT/HCPCS: 36415; 85025

== ENCOUNTER → 2020-10-13 16:20 | Outpatient (CLI) | payer MEDICARE, BC, SELFPAY ==
[2020-10-13 15:26] VITALS: BMI 34.3
[2020-10-13 18:11] LABS: ALB/GLOB Ratio 0.9 RATIO (0.9-2.4); AST(SGOT) 22 U/L (15-37); Alanine Aminotransfer ALT/SGPT 48 U/L (13-56); Albumin, Serum 3.2 g/dL (3.2-5.0); Alkaline Phosphatase 67 U/L (45-117); Anion Gap 9 (5-15); BUN 26 mg/dL (7-18); BUN/Creat Ratio 33.8 RATIO (10-20); Chloride 108 mmol/L (98-107); Creatinine, Serum 0.77 mg/dL (0.55-1.02); EST Glomerular Filtration Rate 77 mL/min (>60); Est Glom Filt Rate - Afr Amer 93 mL/min (>60); Free T3 1.7 pg/mL (2.18-3.98); Globulin 3.4 g/dL (2.2-4.2); Glucose 87 mg/dL (74-106); Potassium 4.1 mmol/L (3.5-5.1); Protein, Total 6.6 g/dL (6.4-8.2); Sodium Level 142 mmol/L (136-145); T4 Free Direct 2.09 ng/dL (0.76-1.46); Thyroid Stim Hormone (TSH) 0.59 uIU/mL (0.358-3.74)
== END ==
PROVIDERS: PCP Family Medicine Geriatric Medicine; Referring Provider Physician Assistant Medical; Visit Provider Physician Assistant Medical
DX: I10 Essential (primary) hypertension (principal); I48.91 Unspecified atrial fibrillation; I48.92 Unspecified atrial flutter
CPT/HCPCS: 36415; 80053; 84439; 84443; 84481

== ENCOUNTER → 2020-10-21 12:33 | Outpatient (CLI) | payer MEDICARE, BC, SELFPAY ==
[2020-10-13 15:26] VITALS: BMI 34.3
[2020-10-21 15:14] LABS: Absolute Lymphocyte Count 1.36 X10^3/uL (0.83-4.51); Absolute Neutrophil Count 6.7 X10^3/uL (2.0-7.7); Basophil# 0.07 X10^3/uL; Basophil% 0.8 % (0-1); Eosinophil# 0.12 X10^3/uL; Eosinophils% 1.3 % (0-5); Hematocrit 43.6 % (37-47); Hemoglobin 14.7 g/dL (12.0-15.0); Lymphocyte # 1.36 X10^3/ul (4.0); Lymphocyte % 15.1 % (19-41); Mean Corp Hgb Conc 33.7 g/dL (32-36); Mean Corpuscular Hgb 32.3 pg (27.0-32.0); Mean Corpuscular Volume 95.8 fL (81-99); Mean Platelet Vol. 9.5 fl (6.2-12.0); Monocyte# 0.71 X10^3/uL; Monocyte% 7.9 % (0-10); NRBC Flagged by Analyzer 0 % (0-5); Neutrophil # 6.69 X10^3/uL (2.7-7.7); Neutrophil % 74.3 % (47-70); Platelet Count 183 K/mm3 (150-450); RBC Distribution Width CV 14.3 % (11.6-14.6); RBC Distribution Width SD 48.9 fl (35.1-43.9); Red Blood Count 4.55 M/mm3 (4.2-5.4)
[2020-10-21 15:40] LABS: ALB/GLOB Ratio 0.9 RATIO (0.9-2.4); AST(SGOT) 14 U/L (15-37); Alanine Aminotransfer ALT/SGPT 31 U/L (13-56); Albumin, Serum 3.1 g/dL (3.2-5.0); Alkaline Phosphatase 66 U/L (45-117); Anion Gap 11 (5-15); BUN 20 mg/dL (7-18); BUN/Creat Ratio 28.7 RATIO (10-20); Calcium,Total 9.2 mg/dL (8.5-10.1); Chloride 104 mmol/L (98-107); EST Glomerular Filtration Rate 87 mL/min (>60); Est Glom Filt Rate - Afr Amer 105 mL/min (>60); Globulin 3.6 g/dL (2.2-4.2); Glucose 91 mg/dL (74-106); Potassium 3.1 mmol/L (3.5-5.1); Protein, Total 6.7 g/dL (6.4-8.2); Sodium Level 141 mmol/L (136-145); Thyroid Stim Hormone (TSH) 0.41 uIU/mL (0.358-3.74)
== END ==
PROVIDERS: PCP Family Medicine; Referring Provider Family Medicine; Visit Provider Family Medicine
DX: I48.91 Unspecified atrial fibrillation (principal); R13.10 Dysphagia, unspecified
CPT/HCPCS: 36415; 80053; 84443; 85025

== ENCOUNTER → 2020-10-27 12:45 | Outpatient (CLI) | payer MEDICARE, BC, SELFPAY ==
[2020-10-13 15:26] VITALS: BMI 34.3
--- NOTE | 2020-10-27 12:47 | US_ITS ---
STUDY: THYROID ULTRASOUND REASON FOR EXAM: Female, 75 years old. INCIDENTAL THYROID NODULES SEEN ON PREVIOUS MRI. PT C/O OF DYSPHAGIA TECHNIQUE: Ultrasound evaluation of the thyroid was performed with real-time and static ruff-scale imaging. COMPARISON: None. FINDINGS: RIGHT LOBE: The right lobe of the thyroid gland is enlarged and measures 5.3 cm x 2.3 cm x 2.3 cm. There is a heterogeneous echotexture. Multiple solid and cystic nodules are seen throughout the right lobe. The largest measures 1.6 x 1.2 cm x 0.9 cm. This is in the mid lobe. Mae and intranodular flow is seen. LEFT LOBE: The left lobe of the thyroid gland is enlarged and measures 5.3 cm x 2.1 cm x 2.1 cm. There is a heterogeneous echotexture. 2 solid/cystic nodules are seen. The largest measures 3.3 cm x 3.9 x 1.8 cm. This is in the lower pole. ISTHMUS: The isthmus measures 5 mm. The regional lymph nodes are normal. US/Thyroid IMPRESSION: Heterogeneous enlargement of both lobes of the thyroid gland with multiple nodules seen throughout. Biopsy of the dominant nodule in the lower pole of the left lobe is recommended. Electronically Signed: Jones Rider, at 13:11 EST , Service support ,
== END ==
PROVIDERS: PCP Family Medicine; Referring Provider Family Medicine; Visit Provider Family Medicine
DX: R13.10 Dysphagia, unspecified (principal)
CPT/HCPCS: 76536

== ENCOUNTER 2020-11-01 12:37 | Emergency (ER) | payer MEDICARE, BC, SELFPAY ==
[2020-10-13 15:26] VITALS: BMI 34.3
[2020-11-01 12:37] VITALS: BP 160/82; PULSE 72; RESP 18; TEMP 36.9; O2SAT 99; BMI 34.2
[2020-11-01] MEDS: Ondansetron 4 MG/2 ML Vial IV (13:49)
[2020-11-01] MEDS: 0.9% Normal Saline 1,000 ML 1000 ML IV (13:49)
--- NOTE | 2020-11-01 13:51 | ED.DCSUM_ITS ---
History of Present Illness Chief Complaint: Nausea/Vomiting Narrative: Patient presenting for evaluation secondary nausea and vomiting. Patient has a underlying history of that over the course of the last 2 months she has been having difficulty with swallowing and frequent nausea and vomiting. Patient states that this been associated with around a 40 pound weight loss. Patient states that since then she has been in and out of the hospital, had a new onset of atrial fibrillation, has been getting some work-up for this difficulty with swallowing actually has had a barium swallow study which showed some mild issues with aspiration. She is scheduled to see general surgery tomorrow for possible evaluation with upper endoscopy. Patient states that she was having some more severe nausea and vomiting today, was feeling generally weak, and was feeling lightheaded and as if she is more dehydrated. No fevers associated with this. No sick contacts. Review of systems otherwise negative. Past Medical History - Allergies and Home Meds Allergies/Adverse Reactions: Allergies hydrocodone [From Vicodin] Allergy (Verified 11/01/20 12:39) Other severe headache Primary Care Physician: Steven Tubbs MD [Primary Care Provider] - Prior records reviewed: Yes Past Medical History: - - Hypertension, dysphagia, atrial fibrillation Surgical History: noncontributory Smoking Status: Never smoker Alcohol: None Drugs: None - Family History Paternal Family History: Reports: - - Graves disease Sibling Family History: Reports: - - graves disease Review of Systems All systems negative except as indicated General: Reports: Malaise, - - Lightheadedness Eyes: Denies: Visual changes - bilaterally, Diplopia ENT: Denies: Rhinorrhea, Sore throat Cardiovascular: Denies: Chest pain, Palpitations Respiratory: Denies: Dyspnea, Cough, Dyspnea on exertion Gastrointestinal: Reports: Nausea, Vomiting Genitourinary: Denies: Dysuria, Hematuria, Frequency Musculoskeletal: Denies: Back pain, Extremity Pain Skin: Denies: Rash, Wounds Neurological: Denies: Headache, Weakness, Numbness Physical Exam Vital Signs/Narrative: Vital Signs Temp Pulse Resp BP Pulse Ox 11/01/20 12:37 98.4 F 72 18 160/82 H 99 Inital Vital Signs reviewed: Yes General: Well nourished, Well developed, Obese, No Acute Distress Head: Normocephalic, Atraumatic Eyes: Perrl, EOMI ENT: No rhinorrhea, Dry mucous membranes Neck: Supple, Nontender Cardiovascular: Regular rate, Regular rhythm, No murmurs Respiratory: No distress, CTA bilaterally, Chest nontender Abdomen: Soft, Nontender, Nondistended, Normal bowel sounds Back: Nontender, Normal Inspection Extremities: Nontender, No edema Skin: Normal color, No rash Neurological: Alert, Oriented x3, Cranial nerves II-XII grossly intact, Normal Strength, Normal Sensation Psychological: Normal affect, Normal Mood Diagnostic/Tx/Re-eval Laboratory Data 11/01/20 11/01/20 13:48 13:48 WBC 9.1 RBC 4.87 Hgb 14.6 Hct 44.8 MCV 92.0 MCH 30.0 MCHC 32.6 RDW Std Deviation 46.7 H RDW Coeff of Eladia 13.8 Plt Count 248 MPV 8.5 Immature Gran % (Auto) 1.300 H Neut % (Auto) 73.4 H Lymph % (Auto) 17.1 L [place] % (Auto) 7.1 Eos % (Auto) 0.4 Baso % (Auto) 0.7 Absolute Neuts (auto) 6.7 Absolute Lymphs (auto) 1.56 Nucleated RBC % 0 Sodium 145 Potassium 2.9 L Chloride 108 H Carbon Dioxide 26.0 Anion Gap 11 BUN 16 Creatinine 0.62 Estim Creat Clear Calc 33.84 Est GFR (MDRD) Af Amer 121 Est GFR (MDRD) Non-Af 100 BUN/Creatinine Ratio 26.0 H Glucose 91 Calcium 9.1 - Medical Decision Making Patient presented secondary to subacute nausea and vomiting and feelings weakness. IV was established patient was given fluid resuscitation. Laboratory work-up demonstrated the patient have hypokalemia potassium of 2.9, no significant evidence of elevation of the patient's creatinine, CBC was unremarkable. Patient had improvement on repeat evaluation after fluids. Patient will be ordered potassium replacement IV in the emergency department. I believe that she is stable and appropriate for discharge as this has been a chronic problem. Patient will be sent home with oral potassium replacement as well as Zofran. She has follow-up with Dr. Blackburn tomorrow. She was encouraged to keep that appointment. ED Disposition - Plan for ED Patient: Disposition: Home or Assisted Living Diagnosis: Nausea and vomiting, Hypokalemia Instructions: ED Hypokalemia, ED Vomiting (Adult) Prescriptions: Potassium Chloride [K-Tab ER] 20 meq PO BID #10 tablet.er Prescription Printed Ondansetron [Zofran Odt] 4 mg PO Q8H PRN PRN #10 tab PRN Reason: Nausea Prescription Printed Referrals: Prakash Blackburn MD [STAFF PHYSICIAN] - Keep Darius appointment
[2020-11-01 14:17] LABS: Absolute Lymphocyte Count 1.56 X10^3/uL (0.83-4.51); Absolute Neutrophil Count 6.7 X10^3/uL (2.0-7.7); Basophil# 0.06 X10^3/uL; Basophil% 0.7 % (0-1); Eosinophil# 0.04 X10^3/uL; Eosinophils% 0.4 % (0-5); Hematocrit 44.8 % (37-47); Hemoglobin 14.6 g/dL (12.0-15.0); Lymphocyte # 1.56 X10^3/ul (4.0); Lymphocyte % 17.1 % (19-41); Mean Corp Hgb Conc 32.6 g/dL (32-36); Mean Platelet Vol. 8.5 fl (6.2-12.0); Monocyte# 0.65 X10^3/uL; Monocyte% 7.1 % (0-10); NRBC Flagged by Analyzer 0 % (0-5); Neutrophil # 6.68 X10^3/uL (2.7-7.7); Neutrophil % 73.4 % (47-70); Platelet Count 248 K/mm3 (150-450); RBC Distribution Width CV 13.8 % (11.6-14.6); RBC Distribution Width SD 46.7 fl (35.1-43.9); Red Blood Count 4.87 M/mm3 (4.2-5.4); White Blood Count 9.1 K/mm3 (4.4-11.0)
[2020-11-01 14:31] LABS: Anion Gap 11 (5-15); BUN 16 mg/dL (7-18); Calcium,Total 9.1 mg/dL (8.5-10.1); Chloride 108 mmol/L (98-107); Creatinine, Serum 0.62 mg/dL (0.55-1.02); EST Glomerular Filtration Rate 100 mL/min (>60); Est Glom Filt Rate - Afr Amer 121 mL/min (>60); Estimated Creatinine Clearance 33.84 ml/min; Glucose 91 mg/dL (74-106); Potassium 2.9 mmol/L (3.5-5.1); Sodium Level 145 mmol/L (136-145)
[2020-11-01 14:40] VITALS: BP 152/102; PULSE 68; RESP 12; O2SAT 99
[2020-11-01] MEDS: Potassium Chloride 10mEq/100mL 10 MEQ/100 ML IV.SOLN. 100 MEQ IV BOLUS ×2 (15:15→16:17)
[2020-11-01] MEDS: 0.9% Normal Saline 1,000 ML 150 ML IV (15:16)
[2020-11-01 16:11] VITALS: BP 150/71; PULSE 64; RESP 17; O2SAT 96
--- NOTE | 2020-11-01 16:34 | ED.RN ---
pt rings call light to reports to this rn tenderness at iv site in right ac. iv site flushes, blood return noted on draw back without difficulty. per pt request new iv initiated in left ac. kcl restarted in left arm. pt tolerating well.
[2020-11-01 17:40] VITALS: BP 141/97; PULSE 78; RESP 15; O2SAT 98
== END 2020-11-01 17:41 | disposition home or self-care (01) ==
PROVIDERS: Emergency Provider Emergency Medicine; PCP Family Medicine
DX: R11.2 Nausea with vomiting, unspecified (principal); E87.6 Hypokalemia; I48.91 Unspecified atrial fibrillation; I10 Essential (primary) hypertension; E66.9 Obesity, unspecified; Z79.02 Long term (current) use of antithrombotics/antiplatelets; Z79.899 Other long term (current) drug therapy
CPT/HCPCS: 80048; 85025; 96361; 96365; 96366; 96375; 99284; J7030; A4216; J2405

== ENCOUNTER → 2020-11-04 09:31 | Outpatient (CLI) | payer MEDICARE, BC, SELFPAY ==
[2020-11-02 14:32] VITALS: BMI 33.6
--- NOTE | 2020-11-04 09:32 | RAD_ITS ---
STUDY: AIR CONTRAST UPPER GI SERIES REASON FOR EXAM: Female, 75 years old. DYSPHAGIA, NAUSEA, PAIN, COUGHING -- 28 FLUORO SEC, 14.87mGy, 22 FLUORO IMAGES FLUOROSCOPY TIME (if supplied): (0:28) minutes/seconds TECHNIQUE: SINGLE CONTRAST AND AIR CONTRAST FLUOROSCOPIC IMAGES. COMPARISON: None. FINDINGS: There is evidence of aspiration of the ingested barium. There is evidence of a small sliding hiatal hernia with a large amount of the gastroesophageal reflux. Limited visualization of the stomach demonstrates no significant abnormality. RAD/Upper GI w/BA Swallow IMPRESSION: Sliding hiatal hernia with a large amount of gastroesophageal reflux. The patient aspirates the ingested barium. Electronically Signed: Jones Rider MD at 10:37 EST , Service support ,
== END ==
PROVIDERS: PCP Family Medicine; Referring Provider Surgery; Visit Provider Surgery
DX: R11.0 Nausea (principal); R13.10 Dysphagia, unspecified; R63.4 Abnormal weight loss
CPT/HCPCS: 74246

== ENCOUNTER 2020-11-10 05:20 | Day surgery (SDC) | payer MEDICARE, BC, SELFPAY ==
[2020-11-02 14:32] VITALS: BMI 33.6
[2020-11-08 10:10] LABS: Potassium 3.7 mmol/L (3.5-5.1)
[2020-11-10] VITALS (7 sets, daily range): BP systolic 89–120; BP diastolic 59–72; PULSE 65–78; RESP 16–18; TEMP 36.1–36.2; O2SAT 98–100; BMI 32.0
--- NOTE | 2020-11-10 05:35 | HP.PCM_ITS ---
Problem List (1) Dysphagia Status: Acute Qualifiers: History and Physical Date of Admission: 11/10/20 Addendum entered and electronically signed by Jeffry Rosario MD 11/03/20 15:47: November 03, 2020 I now have records from June 20, 2007. Dr. Terv Wallace. Screening colonoscopy. Moderate diverticular disease of the sigmoid and descending colon. Scattered diverticula of the right colon. No large polyps identified. Repeat colonoscopy 10 years. Jeffry Rosario M.D., F.A.C.S. Intake Chief Complaint: dysphagia/ nausea Allergies hydrocodone [From Vicodin] Allergy (Verified 11/02/20 14:33) Other Medications Acetaminophen [Tylenol] 1,000 mg PO Q8 #90 tab 04/24/18 [Rx Confirmed 11/02/20] Aspirin [Aspirin, Baby] 81 mg PO DAILY@0800 tab.chew 09/19/20 [Rx Confirmed 11/02/20] amiodarone 200 mg tablet 200 mg PO DAILY #90 tab 10/13/20 [Rx Confirmed 11/02/20] losartan 100 mg tablet 100 mg PO DAILY #90 tab 10/13/20 [Rx Confirmed 11/02/20] omeprazole magnesium 20 mg tablet,delayed release 20 mg PO DAILY #30 tab 10/13/20 [Rx Confirmed 11/02/20] amlodipine 5 mg tablet 5 mg PO DAILY #90 tab 10/18/20 [Rx Confirmed 11/02/20] apixaban 5 mg tablet 5 mg PO BID #180 tab 10/18/20 [Rx Confirmed 11/02/20] metoprolol tartrate 25 mg tablet 25 mg PO BID #180 tab 10/18/20 [Rx Confirmed 11/02/20] Ondansetron [Zofran Odt] 4 mg PO Q8H PRN PRN #10 tab 11/01/20 [Rx Confirmed 11/02/20] Potassium Chloride [K-Tab ER] 20 meq PO BID #10 tablet.er 11/01/20 [Rx Confirmed 11/02/20] Assessment & Plan Problems 1. Dysphagia, unspecified type R13.10 2. Atrial fibrillation and flutter I48.91; I48.92 3. Spinal stenosis, unspecified spinal region M48.00 4. Hypokalemia E87.6 5. Multiple thyroid nodules E04.2 6. Weight loss, unintentional R63.4 Plan - Dr. Jeffry Rosario MD Quite complicated 75-year-old female. She is on Eliquis and aspirin therapy because of newly diagnosed atrial fibrillation. She has significant likely acute on chronic hypokalemia. She was prescribed replacement therapy just yesterday through the emergency room but has not initiated it. I have strongly advised the patient to initiate potassium replacement. The patient's previously had colonoscopies. I recommend that we obtain records of this from Dr. Steven Wallace The modified barium swallow was only of the neck. I recommend a contrast esophagram based upon the complexity of the patient's presentation. Once the patient's potassium is replaced I recommend to the patient a esophagog astroduodenoscopy with possible biopsy. This would be performed with monitored anesthesia care. She would hold her Eliquis therapy 24 hours prior. She may continue her aspirin therapy Regarding the patient's multiple thyroid nodules. I recommend a ultrasound- guided fine-needle aspiration of the left thyroid nodule. I would consider inspection of the dominant nodule on the right. Her clinical presentation is suspicious for multinodular goiter. She will continue to follow-up with Dr. Tubbs regarding her laboratory. We will have her hold her Eliquis 24 hours prior to the fine-needle aspiration Pending the results of the above evaluation the patient may additionally benefit from outpatient esophageal manometry. She has been initiated on appropriate omeprazole therapy and yet despite this continues to complain of incessant nausea. She may also additionally benefit from a future nuclear medicine gastric emptying study. She has had an opportunity to ask and have questions answered. We will schedule and proceed with her investigations as indicated. I appreciate the opportunity of assisting with her surgical care. Time spent with patient and evaluation 70 minutes Copy: Dr. Steven Rosario M.D., F.A.C.S. Orders Orders: EGD 11/02/20 R11.0, R13.10, R63.4 Potassium 11/02/20 E87.6 Upper GI w/BA Swallow 11/02/20 R11.0, R13.10, R63.4 11/03/20 1547 <Electronically signed by Jeffry mota MD> Date _ Jeffry Rosario MD cc: Dr. 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 Is patient in pain?: No Allergies hydrocodone [From Vicodin] Allergy (Verified 11/02/20 14:33) Other Medications Acetaminophen [Tylenol] 1,000 mg PO Q8 #90 tab 04/24/18 [Rx Confirmed 11/02/20] Aspirin [Aspirin, Baby] 81 mg PO DAILY@0800 tab.chew 09/19/20 [Rx Confirmed 11/02/20] amiodarone 200 mg tablet 200 mg PO DAILY #90 tab 10/13/20 [Rx Confirmed 11/02/20] losartan 100 mg tablet 100 mg PO DAILY #90 tab 10/13/20 [Rx Confirmed 11/02/20] omeprazole magnesium 20 mg tablet,delayed release 20 mg PO DAILY #30 tab 10/13/20 [Rx Confirmed 11/02/20] amlodipine 5 mg tablet 5 mg PO DAILY #90 tab 10/18/20 [Rx Confirmed 11/02/20] apixaban 5 mg tablet 5 mg PO BID #180 tab 10/18/20 [Rx Confirmed 11/02/20] metoprolol tartrate 25 mg tablet 25 mg PO BID #180 tab 10/18/20 [Rx Confirmed 11/02/20] Ondansetron [Zofran Odt] 4 mg PO Q8H PRN PRN #10 tab 11/01/20 [Rx Confirmed 11/02/20] Potassium Chloride [K-Tab ER] 20 meq PO BID #10 tablet.er 11/01/20 [Rx Confirmed 11/02/20] Is last menstrual period known: No Post menopausal: Yes Patient : No PFSH Medical History (Updated 11/02/20 @ 15:[address] Jeffry Rosario MD) Weight loss, unintentional (Acute) Multiple thyroid nodules (Acute) HTN (hypertension) (Chronic) Atrial fibrillation and flutter (Acute) Spinal stenosis (Chronic) Osteoarthritis (Chronic) Anxiety (Acute) CAD (coronary artery disease) (Acute) Hemorrhoids (Acute) Rheumatoid arthritis (Acute) Surgical History (Updated 11/02/20 @ 14:18 by Shannon Manning) History of bilateral knee replacement (Acute) History of oral surgery (Acute) History of bladder suspension procedure (Resolved) Hx of cholecystectomy (Resolved) Hx of hysterectomy (Resolved) Family History (Updated 11/02/20 @ 14:16 by Shannon Manning) Mother Hypertension Brother Diabetes Social History (Updated 11/02/20 @ 15:[address] Jeffry Rosario MD) Smoking Status: Never smoker HPI HPI HPI: ANAY CHAIREZ, is a 75 F who presents to the office today for surgical consultation regarding complexity of issues. She is having trouble with nausea. Esophageal dysphagia difficulty swallowing. Weight loss. Abnormal thyroid with multiple nodules. Hypokalemia. The patient is referred by her primary care is Dr. Tubbs and written copy my surgical consult recommendations will return to him Patient reports that early in September she was hospitalized at the [facility] with atrial fibrillation. She states that prior to that she was on an [id number] potassium replacement. She claims she was instructed to cease that medication. Because of inability to swallow choking nausea and emesis she went to the [facility] emergency room yesterday. She was noted to have a potassium level 2.9. BUN is 16 creatinine 0.62. She was given IV replacement and written a prescription for potassium replacement. She has not yet filled that prescription. Outpatient laboratory on October 21, 2020 had previously demonstrated a BUN of 20 creatinine of 0.7 and a potassium level of 3.1 at that time. Additional studies reflect on October 27, 2020 at the [facility] thyroid ultrasound. The right lobe measures 5.3 cm with multiple solid cystic nodules throughout the right. The largest measures 1.6 x 1.2 x 0.9 cm in the mid right lobe. The left lobe of thyroid measures 5.3 x 2.1 x 2.1 cm. The largest nodule in the left measures 3.3 x 3.9 x 1.8 cm. It is in the lower pole. Impression was that biopsy of the lower pole nodule should be pursued. The patient reflects a family history of Graves' disease and a brother and goiter in several members. On September 17, 2020 the patient had a modified barium swallow i.e. a cookie swallow study done by speech therapy. This demonstrated mild oral pharyngeal dysphagia. There was felt to be poor epiglottic inversion. It was recommended to the patient small bites with frequent sips to help move the food on with mechanical soft textures and thin liquids. Patient was advised to remain sitting for 30 minutes after eating. It is of note that an esophagram was not obtained at that time. The patient claims that her problems all started in August with difficulties with swallowing and choking as well as with incessant nausea and then vomiting. She feels that some of the food actually makes it to her stomach some does not. Pills were make her nauseated. She claims that she has lost weight from 208 pounds down 275 pounds. She states that she will have mucus in her throat that particles of food will get caught in the mucus causing her to cough and choke. She claims that she has been prescribed antiemetic medication and that it itself will cause her to be nauseated. She is noted to be edentulous. Apparently she has dentures but very infrequently uses or wears them. She was not wearing them at her appointment today Previous abdominal surgery sounds like a abdominal hysterectomy and then what sounds like a perineal repair The patient thinks she remembers to remote colonoscopy was done by Dr. Trev Wallace. She does not recall when the most recent study would have been. Finally she claims all of this started August 2020 when she started having right leg pain. She had imaging and MRI. I believe at that point I diagnosis of spinal stenosis was made. She actually claims that her right leg pain is improved. She states that she has no abdominal pain. It is nausea and difficulty swallowing October 21, 2020. TSH was 0.41. As of October 13, 2020 Free T3 was 1.7 which is low. TSH was 0.59 low normal. T4 free direct was 2.09 slightly high HPI HPI HPI: ANAY CHAIREZ, is a 75 F who presents to the office today for Exam Const General: cooperative, comfortable, no acute distress Nutritional Appearance: obese Orientation: alert, awake HENMS Head: normal to inspection Eyes General: appearance normal, both eyes and all related structures Resp Effort & Inspection: normal respiratory effort Auscultation: clear to auscultation bilaterally Cardio Rate: regular rate Rhythm: regular rhythm GI Palpation: soft, no hepatosplenomegaly Auscultation: normal bowel sounds Musc Cervical Spine: normal cervical lordosis Neuro General: alert Extrem General: no calf tenderness Psych Affect: normal affect Assessment & Plan Problems 1. Dysphagia, unspecified type R13.10 2. Atrial fibrillation and flutter I48.91; I48.92 3. Spinal stenosis, unspecified spinal region M48.00 4. Hypokalemia E87.6 5. Multiple thyroid nodules E04.2 6. Weight loss, unintentional R63.4 Plan - Dr. Jeffry Rosario MD Quite complicated 75-year-old female. She is on Eliquis and aspirin therapy because of newly diagnosed atrial fibrillation. She has significant likely acute on chronic hypokalemia. She was prescribed replacement therapy just yesterday through the emergency room but has not initiated it. I have strongly advised the patient to initiate potassium replacement. The patient's previously had colonoscopies. I recommend that we obtain records of this from Dr. Trev Wallace The modified barium swallow was only of the neck. I recommend a contrast esophagram based upon the complexity of the patient's presentation. Once the patient's potassium is replaced I recommend to the patient a esophagogastroduodenoscopy with possible biopsy. This would be performed with monitored anesthesia care. She would hold her Eliquis therapy 24 hours prior. She may continue her aspirin therapy Regarding the patient's multiple thyroid nodules. I recommend a ultrasound- guided fine-needle aspiration of the left thyroid nodule. I would consider inspection of the dominant nodule on the right. Her clinical presentation is suspicious for multinodular goiter. She will continue to follow-up with Dr. Sara lares regarding her laboratory. We will have her hold her Eliquis 24 hours prior to the fine-needle aspiration Pending the results of the above evaluation the patient may additionally benefit from outpatient esophageal manometry. She has been initiated on appropriate omeprazole therapy and yet despite this continues to complain of incessant nausea. She may also additionally benefit from a future nuclear medicine gastric emptying study. She has had an opportunity to ask and have questions answered. We will schedule and proceed with her investigations as indicated. I appreciate the opportunity of assisting with her surgical care. Time spent with patient and evaluation 70 minutes Copy: Dr. Steven Rosario M.D., F.A.C.S. Orders Orders: EGD Today R11.0, R13.10, R63.4 Potassium Today E87.6 Upper GI w/BA Swallow Today R11.0, R13.10, R63.4 Coding Diagnoses Dysphagia, unspecified type R13.10 ??Dysphagia type: unspecified Atrial fibrillation and flutter I48.91; I48.92 Spinal stenosis, unspecified spinal region M48.00 ??Spinal region: unspecified Hypokalemia E87.6 Multiple thyroid nodules E04.2 Weight loss, unintentional R63.4 Barium swallow that was performed on November 04, 2020 at the [facility] demonstrates a small hiatal hernia but a significant of reflux with aspiration of barium noted. Additional outpatient testing with esophageal manometry and gastric emptying study has been requested in addition to the planned esophagogastroduodenoscopy with possible biopsy scheduled for today. Jeffry Rosario M.D., F.A.C.S.
[2020-11-10] MEDS: Lactated Ringers 1,000 ML 100 ML IV (05:45)
--- NOTE | 2020-11-10 06:30 | IMM_PTH ---
PATIENT: ANAY CHAIREZ LOC: EN U#:[id number] AGE/SX: 75/F ROOM: RE11/10/[address]: Dr. Jeffry Rosario MD : 1945 BED: DIS: 11/10/2020 SPEC #: [id number] RECD: 11/10/20 12:48 STATUS: BISHOP REQ #: [id number] CARMELLA: 11/10/20 06:[address]: Jeffry Rosario DEPT: IMMUNOHISTOCHEMISTRY RECD BY: Kyra Aaron ENTERED: 11/10/20 12:49 SP TYPE: IMMUNO OTHR DR: Dr. Steven Tubbs MD Tissues: B - Stomach, NOS Procedures: H Pylori (initial) PHYSICIAN & INSTITUTION [place] [id number] SPECIMEN INFORMATION: Tissue Source: B - Antrum biopsy Clinical Info: Dysphagia Specimen Number: [id number] CPT code: 62072 METHODOLOGY: Deparaffinized sections of prefer/formalin-fixed tissue or PAP/DQ stained slides are incubated with monoclonal/polyclonal antibodies/oligonucleotide probes. Localization is made via biotin free immunoperoxidase method. Appropriate controls are performed and reacted as expected. Results on target cell population are indicated in the following table: RESULTS: ANTIBODY / CLONE RESULT Block B H Pylori (polyclonal) negative These tests were developed and their performance characteristics determined by [facility]. They may not have been cleared or approved by the U.S. Food and Drug Administration. The FDA has determined that such clearance or approval is not necessary. INTERPRETATION: B. Antrum, biopsy: Negative for Helicobacter pylori organisms. AM:zonia 11/12/2020
--- NOTE | 2020-11-10 06:30 | EGD_PTH ---
PATIENT: ANAY CHAIREZ LOC: EN U#:[id number] AGE/SX: 75/F ROOM: RE11/10/[address]: Dr. Jeffry Rosario MD : 1945 BED: DIS: 11/10/2020 SPEC #: [id number] RECD: 11/10/20 11:19 STATUS: BISHOP RELucas #: [id number] CARMELLA: 11/10/20 06:[address]: Jeffry Rosario DEPT: SURGICAL PATHOLOGY RECD BY: Brenda Peacock ENTERED: 11/10/20 12:02 SP TYPE: EGD BIOPSY OTHR DR: Dr. Steven Tubbs MD Tissues: A - Duodenum, NOS B - Gastric mucous membrane C - Esophagus, NOS Procedures: Surgery Specimen Level IV HEADER OPERATION[place] [place] DIAGNOSIS: Dysphagia TISSUE SUBMITTED: A - Duodenum biopsy, B - Antrum biopsy for H. pylori and path, C - Distal esophagus MICROSCOPIC DIAGNOSIS A. Duodenum, biopsy: Minimal nonspecific chronic inflammation. B. Gastric antrum, biopsy: Mild chronic inflammation. C. Distal esophagus, biopsy: Strips of benign squamous mucosa. No evidence of inflammation. AM:zonia 11/11/2020 COMMENT B. Immunohistochemistry ([id number]) supports the above diagnosis. MICROSCOPIC DESCRIPTION Slides are reviewed. GROSS DESCRIPTION A - Received in fixative is one container labeled with the patient's name and designated duodenum biopsy. The specimen consists of multiple irregular fragments of light solitario soft tissue that in aggregate measure 1 x 0.5 x 0.1 cm. The specimen is totally submitted in one cassette. B - Received in fixative is one container labeled with the patient's name and designated antrum biopsy. The specimen consists of one irregular fragment of light solitario soft tissue that measures 0.5 x 0.2 x 0.1 cm. The specimen is totally submitted in one cassette. C - Received in fixative is one container labeled with the patient's name and designated distal esophagus. The specimen consists of two irregular fragments of light solitario soft tissue that in aggregate measure 0.6 x 0.5 x 0.1 cm. The specimen is totally submitted in one cassette. / AM:zonia 11/10/20 TC:3 CPT: 05254 x3
--- NOTE | 2020-11-10 06:48 | OP.EGD_ITS ---
Patient Name: Paula Samuels Procedure Date: 11/10/2020 6:08 AM Date of : 1945 Age: 75 Procedure: Upper GI endoscopy Indications: Dysphagia, Esophageal reflux Providers: Jeffry Rosario MD Referring MD: Steven Tubbs Md Medicines: See the Anesthesia note for documentation of the administered medications Complications: No immediate complications. Procedure: Pre-Anesthesia Assessment: - Prior to the procedure, a History and Physical was performed, and patient medications and allergies were reviewed. The patient's tolerance of previous anesthesia was also reviewed. The risks and benefits of the procedure and the sedation options and risks were discussed with the patient. All questions were answered, and informed consent was obtained. Prior Anticoagulants: The patient has taken Eliquis (apixaban), last dose was 1 day prior to procedure. ASA Grade Assessment: III - A patient with severe systemic disease. After reviewing the risks and benefits, the patient was deemed in satisfactory condition to undergo the procedure. After obtaining informed consent, the endoscope was passed under direct vision. Throughout the procedure, the patient's blood pressure, pulse, and oxygen saturations were monitored continuously. The gastroscope was introduced through the mouth, and advanced to the second part of duodenum. The upper GI endoscopy was accomplished without difficulty. The patient tolerated the procedure well. Scope In: 6:30:58 AM Scope Out: 6:37:45 AM Total Procedure Duration Time 0 hours 6 minutes 47 seconds Findings: Esophagitis with no bleeding was found 38 cm from the incisors. A small hiatal hernia was present. Biopsies were taken with a cold forceps for histology. A widely patent Schatzki ring was found at the gastroesophageal junction. Diffuse mildly erythematous mucosa without bleeding was found in the entire examined stomach. Biopsies were taken with a cold forceps for histology. Bilious fluid was found in the gastric body. Diffuse moderate inflammation characterized by granularity was found in the duodenal bulb. Biopsies were taken with a cold forceps for histology. Impression: - Reflux esophagitis. - Small hiatal hernia. Biopsied. - Widely patent Schatzki ring. - Erythematous mucosa in the stomach. Biopsied. - Bilious gastric fluid. - Chronic duodenitis. Biopsied. Recommendation: - Await pathology results. - Discharge patient to home. - Resume previous diet. - Continue present medications. - Use sucralfate tablets 1 gram PO QID. - Return to my office after manometry and gastric emptying study Procedure Code(s): --- Professional --- 82104, Esophagogastroduodenoscopy, flexible, transoral; with biopsy, single or multiple Diagnosis Code(s): --- Professional --- K21.0, Gastro-esophageal reflux disease with esophagitis K44.9, Diaphragmatic hernia without obstruction or gangrene K22.2, Esophageal obstruction K31.89, Other diseases of stomach and duodenum K29.80, Duodenitis without bleeding R13.10, Dysphagia, unspecified CPT copyright 2017 [employer]. All rights reserved. The codes documented in this report are preliminary and upon insurance producer review may be revised to meet current compliance requirements. Jeffry Rosario MD 11/10/2020 6:47:48 AM This report has been signed electronically. Number of Addenda: 0 Note Initiated On: 11/10/2020 6:08 AM
--- NOTE | 2020-11-10 06:48 | OP.CCLET_ITS ---
11/10/2020 Steven Tubbs Md Re : Upper GI endoscopy procedure for Paula Samuels Dear Arley This procedure was performed on Tuesday, November 10, 2020. My impressions and recommendations are as follows: Impressions : - Reflux esophagitis. - Small hiatal hernia. Biopsied. - Widely patent Schatzki ring. - Erythematous mucosa in the stomach. Biopsied. - Bilious gastric fluid. - Chronic duodenitis. Biopsied. Recommendations : - Await pathology results. - Discharge patient to home. - Resume previous diet. - Continue present medications. - Use sucralfate tablets 1 gram PO QID. - Return to my office after manometry and gastric emptying study My findings are described in the full procedure note, which is enclosed. If I can be of further assistance, please feel free to contact me at Doctor phone number(s): Work: . Sincerely, Jeffry Rosario MD 11/10/2020 6:47:48 AM This report has been signed electronically.
== END 2020-11-10 07:29 | disposition home or self-care (01) ==
LOC: EN 05:20 → AC 05:20
PROVIDERS: PCP Family Medicine; Referring Provider Family Medicine; Visit Provider Surgery
PROC: 0DJ08ZZ Inspection of Upper Intestinal Tract, Via Natural or Artificial Opening Endoscopic (ICD-10-PCS; CPT 43235; principal; 2020-11-10 06:25)
DX: K29.50 Unspecified chronic gastritis without bleeding (principal); K29.80 Duodenitis without bleeding; K44.9 Diaphragmatic hernia without obstruction or gangrene; K22.2 Esophageal obstruction; K21.00 Gastro-esophageal reflux disease with esophagitis, without bleeding; E87.6 Hypokalemia; I48.91 Unspecified atrial fibrillation; I48.92 Unspecified atrial flutter; E04.2 Nontoxic multinodular goiter; I10 Essential (primary) hypertension; Z79.899 Other long term (current) drug therapy; Z79.02 Long term (current) use of antithrombotics/antiplatelets; Z20.822 Contact with and (suspected) exposure to COVID-19
CPT/HCPCS: 43239; 36415; 84132; 87426; 88305; 88342; C9803; J7120; J2405

== ENCOUNTER → 2020-11-12 14:44 | Outpatient (CLI) | payer MEDICARE, BC, SELFPAY ==
--- NOTE | 2020-11-12 | ASPS_PTH ---
PATIENT: ANAY CHAIREZ LOC: [facility] U#:[id number] AGE/SX: 80/F ROOM: RE11/12/[address]: Dr. Jeffry Rosario MD : 1945 BED: DIS: SPEC #: [id number] RECD: 11/15/20 10:45 STATUS: BISHOP DERRICK #: [id number] CARMELLA: 11/12/20 00:[address]: Jeffry Rosario DEPT: CYTOLOGY RECD BY: Jagdeep Mann ENTERED: 11/15/20 10:47 SP TYPE: ASPIRATION OTHR DR: Dr. Steven Tubbs MD Tissues: A - Thyroid gland, NOS B - Thyroid gland, NOS Procedures: Special Stain Group II Cytology Other HEADER OPERATION: Bilateral thyroid FNA PRE-OP DIAGNOSIS: Bilateral thyroid nodules TISSUE SUBMITTED: A - Left thyroid 9 slides, B - Right thyroid 6 slides DIAGNOSIS CYTOLOGY A. Fine needle aspiration, left thyroid nodule (smears): Adequate for evaluation. Negative, consistent with benign colloid/follicular nodule. B. Fine needle aspiration, right thyroid nodule (smears): Adequate for evaluation. Negative, consistent with benign colloid/follicular nodule with cystic change. AM:zonia 11/16/20 CYTOLOGY STUDY Slides are reviewed. CYTOLOGY GROSS A - Received are nine smears labeled with the patient's name and designated per the requisition as left thyroid. Submitted for staining. B - Received are six smears labeled with the patient's name and designated per the requisition as right thyroid. Submitted for staining. / zonia 11/15/2020 TC:5 CPT: 53240 x2
[2020-11-12 12:33] VITALS: BMI 33.6
== END ==
PROVIDERS: PCP Family Medicine; Referring Provider Surgery; Visit Provider Surgery
DX: E04.2 Nontoxic multinodular goiter (principal)
CPT/HCPCS: 88161; 88313

== ENCOUNTER 2020-11-16 09:10 | Emergency (ER) | payer MEDICARE, BC, SELFPAY ==
[2020-11-12 12:33] VITALS: BMI 33.6
[2020-11-16 09:11] VITALS: BP 131/68; PULSE 77; RESP 16; TEMP 36.7; O2SAT 92; BMI 31.8
--- NOTE | 2020-11-16 09:43 | EKG12_ITS ---
Test Reason : Blood Pressure : / mmHG Vent. Rate : 066 BPM Atrial Rate : 066 BPM P-R Int : 150 ms QRS Dur : 084 ms QT Int : 450 ms P-R-T Axes : 023 024 007 degrees QTc Int : 471 ms Sinus rhythm with Premature supraventricular complexes Nonspecific ST & T wave abnormality Abnormal ECG Confirmed by DINA BALDWIN, SANG ([id number]), development editor DANAE KRUEGER ([id number]) on 11/18/2020 9:45:04 AM Referred By: NICK Confirmed By:SANG ARROYO MD
--- NOTE | 2020-11-16 09:44 | ED.VIS.GEN ---
History of Present Illness Chief Complaint: Syncope Informant: Patient Onset: Today Narrative: Patient presents after a brief syncopal episode at home. She states for the past couple months she has had problems with vomiting and difficulty swallowing. She has been undergoing outpatient work-up with Dr. Rosario. Patient states that because she has not been able to eat and drink well she has been getting more weak over the past several weeks. Today she was sitting in the shower and her was helping her clean up when she had a brief unresponsive episode. She denies lightheaded or dizziness. She denies chest pain or palpitations. She states she just felt very weak. She was sitting at the time and did not fall or have an injury. - Past Medical History (1) Coronary artery disease Status: Chronic (2) Rheumatoid arthritis Status: Chronic (3) Atrial fibrillation and flutter Status: Chronic (4) HTN (hypertension) Status: Chronic Past Medical History - Allergies and Home Meds Allergies/Adverse Reactions: Allergies hydrocodone [From Vicodin] Allergy (Verified 11/16/20 09:11) Other severe headache Primary Care Physician: Steven Tubbs MD [Primary Care Provider] - Surgical History: noncontributory Smoking Status: Never smoker - Family History Paternal Family History: Family History (Last Reviewed 11/12/20 @ 12:04 by Shannon Manning) Mother Hypertension Brother Diabetes Family History: Reports: - Sibling Family History: Family History (Last Reviewed 11/12/20 @ 12:04 by Shannon Manning) Mother Hypertension Brother Diabetes Family History: Reports: - Review of Systems General: Denies: Chills, Fever Eyes: Denies: Visual changes - bilaterally ENT: Denies: Bilateral ear pain Cardiovascular: Denies: Chest pain, Palpitations Respiratory: Denies: Dyspnea Gastrointestinal: Reports: Nausea, Vomiting. Denies: Abdominal pain Genitourinary: Denies: Dysuria Musculoskeletal: Denies: Swelling, Extremity Pain Skin: Denies: Rash Neurological: Reports: Weakness - Generalized weakness. Denies: Headache Hematologic: Denies: Easy bruising, Easy bleeding Allergy: Denies: Uticaria Physical Exam Vital Signs/Narrative: Vital Signs Temp Pulse Resp BP Pulse Ox 11/16/20 09:11 98.1 F 77 16 131/68 H 92 Inital Vital Signs reviewed: Yes General: Well nourished, Well developed Head: Normocephalic Neck: Supple Cardiovascular: Irregular Respiratory: No distress, CTA bilaterally Abdomen: Soft, Nontender, Hypoactive bowel sounds Extremities: Nontender Skin: Normal color Neurological: Alert, Oriented x3 Psychological: Normal affect Diagnostic/Tx/Re-eval Chest X-Ray - ED: 1 View, Read by ED Physician, Normal, Heart, Lungs, Mediastinum Impressions Chest X-Ray 11/16/20 10:20 IMPRESSION: Normal x-ray examination of the chest. Electronically Signed: Reina Fowler MD at 10:52 EST , Service support , 11/16/20 10:20 Chest 1 View (Portable) [RAD] Stat Laboratory Results 11/16/20 11/16/20 11/16/20 10:15 10:15 11:40 WBC 9.7 RBC 4.62 Hgb 13.8 Hct 43.5 MCV 94.2 MCH 29.9 MCHC 31.7 L RDW Std Deviation 49.8 H RDW Coeff of Eladia 14.6 Plt Count 205 MPV 9.3 Immature Gran % (Auto) 0.900 Neut % (Auto) 79.4 H Lymph % (Auto) 12.2 L [place] % (Auto) 6.5 Eos % (Auto) 0.5 Baso % (Auto) 0.5 Absolute Neuts (auto) 7.7 Absolute Lymphs (auto) 1.18 Nucleated RBC % 0 Sodium 141 Potassium 3.3 L Chloride 106 Carbon Dioxide 22.0 Anion Gap 13 BUN 19 H Creatinine 0.68 Estim Creat Clear Calc 33.84 Est GFR (MDRD) Af Amer 107 Est GFR (MDRD) Non-Af 89 BUN/Creatinine Ratio 27.8 H Glucose 104 Calcium 8.9 Troponin I < 0.015 Urine Color [place] Urine Clarity Cloudy Urine pH 6.0 Ur Specific [place] 1.015 Urine Protein 100 H Urine Glucose (UA) Normal Urine Ketones 150 H Urine Occult Blood 25 H Urine Nitrite Positive H Urine Bilirubin Negative Urine Urobilinogen 4 H Ur Leukocyte Esterase 100 H Urine RBC 0-5 SEEN Urine WBC 5-10 SEEN Ur Squamous Epith Cells 0-5 SEEN Urine Bacteria 4+ Urine Mucus 0 SEEN - EKG Initial EKG Interpretation: Sinus Rhythm - Sinus at 66 with PACs. No significant ischemia. - Medical Decision Making Patient was given IV fluids. Portable chest x-ray per my interpretation reveals no focal findings. EKG is unremarkable. Blood work does reveal mild hypokalemia with a potassium of 3.3. This is replaced orally. Urinalysis is obtained via straight cath. She does have evidence of UTI. She is given a dose of IV Rocephin here and will be discharged with a prescription for Keflex. Urine culture has been sent. She does have Zofran at home to use. I did advise her that she is not able to keep her antibiotics down she needs to return for IV medication. ED Disposition - Plan for ED Patient: Disposition: Home or Assisted Living Diagnosis: UTI (urinary tract infection), Syncope Instructions: ED Fainting, Vagal Reaction, ED Bladder Infection, Female (Adult) Prescriptions: Cephalexin [Keflex] 500 mg PO Q6 #20 cap Transmission Status: Pending to [id number] Referrals: Steven Tubbs MD [Primary Care Provider] - 1 Week
--- NOTE | 2020-11-16 10:20 | RAD_ITS ---
STUDY: X-RAY CHEST REASON FOR EXAM: Female, 75 years old patient with syncope this morning. Patient also has weakness and shortness of breath. TECHNIQUE: Single AP portable view of the chest. COMPARISON: Chest radiograph dated 09/17/2020. FINDINGS: Cardiac monitoring leads are present. The lungs are hyperexpanded. Linear opacity is visible to the left lung base likely secondary to subsegmental atelectasis. There is no obvious airspace consolidation. There is no demonstrated pleural abnormality. Normal size heart. Normal mediastinum and katie. Normal visualized pulmonary arteries. Normal visualized aortic arch and descending thoracic aorta. There is demineralization of the osseous structures. There are degenerative changes of both shoulders and spine. There is no demonstrated abnormality of the visualized soft tissue structures of the upper abdomen. RAD/Chest 1 View (Portable) IMPRESSION: Normal x-ray examination of the chest. Electronically Signed: Reina Fowler MD at 10:52 EST , Service support ,
[2020-11-16 10:36] LABS: Absolute Lymphocyte Count 1.18 X10^3/uL (0.83-4.51); Absolute Neutrophil Count 7.7 X10^3/uL (2.0-7.7); Basophil# 0.05 X10^3/uL; Basophil% 0.5 % (0-1); Eosinophil# 0.05 X10^3/uL; Eosinophils% 0.5 % (0-5); Hematocrit 43.5 % (37-47); Hemoglobin 13.8 g/dL (12.0-15.0); Lymphocyte # 1.18 X10^3/ul (4.0); Lymphocyte % 12.2 % (19-41); Mean Corp Hgb Conc 31.7 g/dL (32-36); Mean Corpuscular Hgb 29.9 pg (27.0-32.0); Mean Corpuscular Volume 94.2 fL (81-99); Mean Platelet Vol. 9.3 fl (6.2-12.0); Monocyte# 0.63 X10^3/uL; Monocyte% 6.5 % (0-10); NRBC Flagged by Analyzer 0 % (0-5); Neutrophil # 7.65 X10^3/uL (2.7-7.7); Neutrophil % 79.4 % (47-70); Platelet Count 205 K/mm3 (150-450); RBC Distribution Width CV 14.6 % (11.6-14.6); RBC Distribution Width SD 49.8 fl (35.1-43.9); Red Blood Count 4.62 M/mm3 (4.2-5.4); White Blood Count 9.7 K/mm3 (4.4-11.0)
[2020-11-16] MEDS: 0.9% Normal Saline 1,000 ML 150 ML IV (10:44)
[2020-11-16 10:47] LABS: Anion Gap 13 (5-15); BUN 19 mg/dL (7-18); BUN/Creat Ratio 27.8 RATIO (10-20); Calcium,Total 8.9 mg/dL (8.5-10.1); Chloride 106 mmol/L (98-107); Creatinine, Serum 0.68 mg/dL (0.55-1.02); EST Glomerular Filtration Rate 89 mL/min (>60); Est Glom Filt Rate - Afr Amer 107 mL/min (>60); Estimated Creatinine Clearance 33.84 ml/min; Glucose 104 mg/dL (74-106); Potassium 3.3 mmol/L (3.5-5.1); Sodium Level 141 mmol/L (136-145)
[2020-11-16 11:52] LABS: Mucous, Urine 0 SEEN /hpf (<or=2+)
[2020-11-16 11:53] LABS: Color, Urine Amber (Yellow); Glucose, Dipstick Normal (Normal); Leukocyte Esterase-Dipstick 100 /ul (Negative); Nitrite-Dipstick Positive (Negative); Occult Blood-Urine 25 /ul (Negative); Protein-Dipstick 100 mg/dl (Negative); Specific Gravity, Urine 1.015 (1.002-1.030); Urine Bilirubin Dipstick Negative (Negative); Urine Clarity Cloudy (Clear); Urine Urobilinogen 4 mg/dl (Normal)
[2020-11-16 11:58] LABS: Ketone-Dipstick 150 mg/dl (Negative)
[2020-11-16 11:59] LABS: Bacteria 4+ /hpf (None Seen); Squamous Epithelial Cells - UA 0-5 SEEN /hpf (5-10); White Blood Cells 5-10 SEEN /hpf (0-5)
[2020-11-16 12:00] LABS: Red Blood Cells-Urine 0-5 SEEN /hpf (0-5)
[2020-11-16] MEDS: Amiodarone 200 MG Tablet PO (12:15)
[2020-11-16] MEDS: Metoprolol Tartrate 25 MG Tablet PO (12:15)
[2020-11-16] MEDS: amLODIPine 5 MG Tablet PO (12:15)
[2020-11-16] MEDS: Ceftriaxone 1 GM/50 ML BAG IV (12:28)
[2020-11-16 12:29] VITALS: BP 135/78; PULSE 113; RESP 19; O2SAT 97
== END 2020-11-16 13:57 | disposition home or self-care (01) ==
PROVIDERS: Emergency Provider Emergency Medicine; PCP Family Medicine
DX: N39.0 Urinary tract infection, site not specified (principal); R55 Syncope and collapse; I25.10 Atherosclerotic heart disease of native coronary artery without angina pectoris; M06.9 Rheumatoid arthritis, unspecified; I48.91 Unspecified atrial fibrillation; I48.92 Unspecified atrial flutter; I10 Essential (primary) hypertension; Z79.02 Long term (current) use of antithrombotics/antiplatelets; Z79.899 Other long term (current) drug therapy
CPT/HCPCS: 71045; 80048; 81001; 84484; 85025; 87086; 87088; 87186; 93005; 96361; 96365; 99285; A4216

== ENCOUNTER 2020-11-18 10:23 | Day surgery (SDC) | payer MEDICARE, BC, SELFPAY ==
[2020-11-10 06:12] VITALS: BMI 32.0
[2020-11-18 10:34] VITALS: BP 147/76; PULSE 94; RESP 16; TEMP 36.1; O2SAT 100
[2020-11-18] MEDS: Lidocaine Jelly 2% 20 ML Syringe (URO-JET) 20 APPLIC (10:35)
== END 2020-11-18 11:24 | disposition home or self-care (01) ==
PROVIDERS: PCP Family Medicine; Referring Provider Family Medicine; Visit Provider Surgery
PROC: F00ZJWZ Instrumental Swallowing and Oral Function Assessment using Swallowing Equipment (ICD-10-PCS; CPT 43235; principal; 2020-11-18 10:25)
DX: R13.10 Dysphagia, unspecified (principal)
CPT/HCPCS: 91010

== ENCOUNTER 2020-11-23 08:08 | Inpatient (IN) | payer MEDICARE, BC, SELFPAY ==
[2020-11-23] VITALS (14 sets, daily range): BP systolic 111–153; BP diastolic 59–107; PULSE 66–110; RESP 14–22; TEMP 36.1–36.9; O2SAT 93–100; BMI 31.2; BMI 31.1
--- NOTE | 2020-11-23 08:39 | EKG12_ITS ---
Test Reason : REPEAT Blood Pressure : / mmHG Vent. Rate : 132 BPM Atrial Rate : 144 BPM P-R Int : 000 ms QRS Dur : 086 ms QT Int : 356 ms P-R-T Axes : 000 034 250 degrees QTc Int : 527 ms Somatic/motion artifact Atrial fibrillation with rapid ventricular response ST/T wave abnormality; consider myocardial ischemia Abnormal ECG Confirmed by DINA BALDWIN, SANG ([id number]), publications editor LEONOR GUTIERREZ ([id number]) on 11/25/2020 9:33:43 AM Referred By: ALEXUS Confirmed By:SANG ARROYO MD
--- NOTE | 2020-11-23 08:40 | ED.DCSUM_ITS ---
- ER Visit Summary Date of Service: 11/23/20 Chief Complaint: Nausea, vomiting, generalized weakness and weight loss History of Present Illness: The patient is a 75 F past medical history of A. fib on Eliquis and hypertension. For last 2 to 3 months since August the patient has had issues with nausea, vomiting unable to keep food and fluids down. Has had a 50 pound unintentional weight loss. She has had evaluation as a pending upcoming gastric emptying test. She states that she is so weak she has trouble even get around her house now. She denies fever or chills. She denies chest pain or shortness of breath. She denies dysuria or hematuria. Physical Examination: Elderly female no acute distress vital signs stable afebrile. Pulse ox 96% on room air no signs of hypoxia. Family at bedside. HEENT exam unremarkable. Moist with membranes. Neck nontender no lymphadeno genaro. Lungs clear to auscultation bilaterally. Heart regular rhythm no murmur. Rate about 80. Abdomen soft nontender normal bowel sounds no peritoneal signs. Nondistended no masses. Patient moving all 4 extremities. Neurovascular intact. Calves are nontender without edema or cords. Neurologically patient is awake and alert with no focal motor deficits. Test Results: His white count 9 hemoglobin 13. Chemistries sodium 146 potassium low at 2.6 being replaced with both oral and IV potassium. Gap of 10 normal creatinine UA negative initial EKG was normal sinus rhythm rate of 64 however when the patient's emergency department her heart rate sped up and a repeat EKG shows A. fib rapid ventricular rate of 132 she does have a prior history of A. fib and is on the blood thinner Eliquis. Due to the A. fib RVR she will be started on labetalol IV because of being on metoprolol at home. We will see if and get her rate under control. She is also receiving IV and oral potassium for her hypokalemia. Emergency Department Course and Treatment: Patient with generalized weakness most likely from nausea and vomiting. Screening labs are being obtained to check for dehydration or electrolyte abnormalities versus other etiology. Clinically she really does not look dehydrated at this time. Her abdomen is benign and nontender. Treatment Plan: Due to her overall weakness and A. fib RVR I am speaking to the hospitalist about admission Disposition: Admission Impression: Acute generalized weakness Acute hypokalemia Recurrent A. fib with RVR Acute nausea and vomiting with weight loss History of chronic A. fib anticoagulated on Eliquis This note was generated with Dispatch dictation software. It may contain incorrect words, spelling, and punctuation that were not noted in review of the chart prior to signing ED Disposition - Plan for ED Patient: Referrals: Steven Tubbs MD [Primary Care Provider] -
--- NOTE | 2020-11-23 08:51 | EKG12_ITS ---
Test Reason : WEAKNESS Blood Pressure : / mmHG Vent. Rate : 064 BPM Atrial Rate : 064 BPM P-R Int : 144 ms QRS Dur : 080 ms QT Int : 450 ms P-R-T Axes : 024 026 002 degrees QTc Int : 464 ms Normal sinus rhythm ST & T wave abnormality, consider inferior ischemia ST & T wave abnormality, consider anterior ischemia Abnormal ECG Confirmed by DINA BALDWIN, SANG ([id number]), production editor LEONOR GUTIERREZ ([id number]) on 11/25/2020 9:36:08 AM Referred By: ALEXUS Confirmed By:SANG ARROYO MD
[2020-11-23] MEDS: Ondansetron 4 MG/2 ML Vial IV (08:56)
[2020-11-23] MEDS: 0.9% Normal Saline 1,000 ML 1000 ML IV (08:56)
[2020-11-23 09:07] LABS: Absolute Lymphocyte Count 1.71 X10^3/uL (0.83-4.51); Absolute Neutrophil Count 6.8 X10^3/uL (2.0-7.7); Basophil# 0.04 X10^3/uL; Basophil% 0.4 % (0-1); Eosinophil# 0.03 X10^3/uL; Eosinophils% 0.3 % (0-5); Hematocrit 43.4 % (37-47); Hemoglobin 13.8 g/dL (12.0-15.0); Lymphocyte # 1.71 X10^3/ul (4.0); Lymphocyte % 18.5 % (19-41); Mean Corp Hgb Conc 31.8 g/dL (32-36); Mean Corpuscular Hgb 30.3 pg (27.0-32.0); Mean Corpuscular Volume 95.4 fL (81-99); Mean Platelet Vol. 9.1 fl (6.2-12.0); Monocyte# 0.53 X10^3/uL; Monocyte% 5.7 % (0-10); NRBC Flagged by Analyzer 0.4 % (0-5); Neutrophil # 6.77 X10^3/uL (2.7-7.7); Neutrophil % 73.5 % (47-70); Platelet Count 213 K/mm3 (150-450); RBC Distribution Width CV 15.7 % (11.6-14.6); RBC Distribution Width SD 52.4 fl (35.1-43.9); Red Blood Count 4.55 M/mm3 (4.2-5.4); White Blood Count 9.2 K/mm3 (4.4-11.0)
[2020-11-23 09:37] LABS: ALB/GLOB Ratio 0.8 RATIO (0.9-2.4); AST(SGOT) 26 U/L (15-37); Alanine Aminotransfer ALT/SGPT 51 U/L (13-56); Albumin, Serum 2.7 g/dL (3.2-5.0); Alkaline Phosphatase 49 U/L (45-117); Anion Gap 10 (5-15); BUN 22 mg/dL (7-18); BUN/Creat Ratio 29.2 RATIO (10-20); Calcium,Total 9.2 mg/dL (8.5-10.1); Chloride 108 mmol/L (98-107); Creatinine, Serum 0.75 mg/dL (0.55-1.02); EST Glomerular Filtration Rate 79 mL/min (>60); Est Glom Filt Rate - Afr Amer 96 mL/min (>60); Estimated Creatinine Clearance 33.84 ml/min; Globulin 3.3 g/dL (2.2-4.2); Glucose 118 mg/dL (74-106); Potassium 2.6 mmol/L (3.5-5.1); Sodium Level 146 mmol/L (136-145)
--- NOTE | 2020-11-23 09:37 | NURSING ---
Chacho 2.[address] Tucker
[2020-11-23 10:36] LABS: Red Blood Cells-Urine 0 SEEN /hpf (0-5); White Blood Cells 0 SEEN /hpf (0-5)
[2020-11-23 10:39] LABS: Color, Urine Yellow (Yellow); Glucose, Dipstick Normal (Normal); Ketone-Dipstick 15 mg/dl (Negative); Leukocyte Esterase-Dipstick Negative /ul (Negative); Nitrite-Dipstick Negative (Negative); Occult Blood-Urine 10 /ul (Negative); Protein-Dipstick 30 mg/dl (Negative); Urine Bilirubin Dipstick Negative (Negative); Urine Clarity Sl. Cloudy (Clear); Urine Urobilinogen Normal (Normal)
[2020-11-23 10:48] LABS: Bacteria RARE /hpf (None Seen); Mucous, Urine RARE /hpf (<or=2+); Squamous Epithelial Cells - UA 0-5 SEEN /hpf (5-10)
--- NOTE | 2020-11-23 11:18 | HP.PCM_ITS ---
Problem List (1) Atrial fibrillation with RVR Status: Acute (2) Hypokalemia Status: Acute (3) Weight loss, unintentional Status: Acute (4) Dysphagia Status: Acute Qualifiers: Dysphagia type: unspecified (5) Intractable nausea and vomiting Status: Acute (6) Coronary artery disease Status: Chronic Qualifiers: Coronary Disease-Associated Artery/Lesion type: unspecified vessel or lesion type [place] vs. transplanted heart: unspecified whether [place] or transplanted heart Associated angina: angina presence unspecified Qualified Code(s): I25.10 - Atherosclerotic heart disease of [place] coronary artery without angina pectoris (7) Rheumatoid arthritis Status: Chronic Qualifiers: Rheumatoid arthritis location: unspecified site Rheumatoid factor presence: unspecified presence Qualified Code(s): M06.9 - Rheumatoid arthritis, unspecified (8) Multiple thyroid nodules Status: Chronic (9) HTN (hypertension) Status: Chronic Qualifiers: Hypertension type: essential hypertension Qualified Code(s): I10 - Essential (primary) hypertension History of Present Illness Date of Admission: 11/23/20 Chief Complaint: Failure to thrive, Dysphagia. The patient is a 75 y/o F w/ PMHx: Chronic back pain with spinal stenosis, PAF on Eliquis, HTN, OA, Vitamin D deficiency, recent 10/03 admissions for PAF with RVR and Oropharyngeal dysphagia as well as PIERRE who now re-presents to the [facility] ED on 11/23/20 with history of ongoing persistently worsening weakness, fatigue, weight loss with nausea and emesis with apparently an unintentional weight loss of 50 pounds since August of the year prior with upcoming gastric emptying test per her report however given her significant weakness with gait and debility and inability to ambulate in her home she presents to the ED for reevaluation. Work-up in the ED included T 97.9, heart rate 78, BP 114/69, respiratory rate 18, 96% on room air with recent vitals prior to admission T 98.2, heart rate 110, BP 142/96, respiratory rate 19, and a percent on room air, CBC with WC 9.2, hemoglobin 13.8, platelet 213 with increased immature granulocytes, he was sodium 146, potassium 2.6, chloride 108, BUN/creatinine 22/0.75, glucose 110, total bilirubin 1.10, AST/ALT 26/51, analysis not severe appearing and specific gravity despite history of poor intake 1.01, EKG with sinus rhythm with no acute evidence of ischemia initially however repeat EKG while in the ED noted onset A. fib with RVR with administration of labetalol 20 mg IV x2. Patient ministered normal saline, oral and IV potassium supplementation, Zofran. Past Medical History Past Medical History (Chronic Problems): Chronic Problems (Last Reviewed 11/12/20 @ 12:04 by Shannon Manning) Coronary artery disease (Chronic) Rheumatoid arthritis (Chronic) Multiple thyroid nodules (Chronic) HTN (hypertension) (Chronic) Atrial fibrillation and flutter (Chronic) Spinal stenosis (Chronic) Osteoarthritis (Chronic) Medical History: Medical History (Last Reviewed 11/12/20 @ 12:04 by Shannon Manning) Weight loss, unintentional (Acute) R63.4 Multiple thyroid nodules (Acute) E04.2 HTN (hypertension) (Chronic) I10 Atrial fibrillation and flutter (Chronic) I48.91, I48.92 Spinal stenosis (Chronic) M48.00 Osteoarthritis (Chronic) M19.90 Anxiety F41.9 CAD (coronary artery disease) I25.10 Hemorrhoids K64.9 Rheumatoid arthritis M06.9 Allergies hydrocodone [From Vicodin] Allergy (Verified 11/23/20 08:13) Other severe headache Home Medications: Ambulatory Orders Medication Instructions Recorded Aspirin [Aspirin, Baby] 81 mg PO DAILY@0800 tab.chew 09/19/20 amiodarone 200 mg tablet 200 mg PO DAILY #90 tab 10/13/20 amlodipine 5 mg tablet 5 mg PO DAILY #90 tab 10/18/20 apixaban 5 mg tablet 5 mg PO BID #180 tab 10/18/20 metoprolol tartrate 25 mg tablet 25 mg PO BID #180 tab 10/18/20 Ondansetron [Zofran Odt] 4 mg PO Q8H PRN PRN #10 tab 11/01/20 Sucralfate [Carafate] 1 gm PO 4X/DAY #120 tab 11/10/20 losartan 100 mg tablet 100 mg PO DAILY #90 tab 11/17/20 Omeprazole 40 mg PO DAILY 11/23/20 Surgical History: Surgical History (Last Updated 11/12/20 @ 12:04 by Shannon Manning) History of bilateral knee replacement Z96.653 History of oral surgery Z98.890 S/P fine needle aspiration Onset Date: ~10/2020 Z98.890 left thyroid History of bladder suspension procedure Z98.890, Z87.448 Hx of cholecystectomy Z90.49 Hx of hysterectomy Z90.710 Surgical History: - - Ectomy, hysterectomy, bladder suspension, bilateral total knee replacement, thyroid aspiration, oral surgery. Psychiatric History: No pertinent psych hx FEATHER MIXER History: No pertinent FEATHER MIXER history Lives: Spouse/ Significant Other Smoking Status: Never smoker Tobacco Use: Non-smoker Alcohol: None Drugs: None - *Family History Paternal Family History: Family History (Last Reviewed 11/12/20 @ 12:04 by Shannon Manning) Mother Hypertension Brother Diabetes History Items: Hypertension Sibling Family History: Family History (Last Reviewed 11/12/20 @ 12:04 by Shannon Manning) Mother Hypertension Brother Diabetes History Items: Diabetes Maternal Family History: Family History (Last Reviewed 11/12/20 @ 12:04 by Shannon Manning) Mother Hypertension Brother Diabetes History Items: Hypertension Review of Systems Constitutional: Reports: Anorexia, Malaise, Weakness, Fatigue. Denies: Chills, Fever, Weight Change HEENT: Reports: Difficulty Swallowing - Patient notes primarily with food intake but now with liquid intake immediately comes up and if it does not if she moves even after 30 minutes she will have emesis.. Denies: Head Aches, Sinus Congestion, Sinus Drainage Cardiovascular: Denies: Chest Pain, Palpitations Respiratory: Denies: Cough, Shortness of breath at rest, Sputum production Gastrointestinal: Denies: Abdominal Pain, Nausea, Vomiting Genitourinary: Denies: Dysuria Musculoskeletal: Reports: Back Pain, Joint Pain, Leg Pain. Denies: Joint Tenderness Skin: Denies: Rash, Wounds Neurological: Reports: - - Generalized weakness, fatigue.. Denies: Focal weakness, Numbness, Tingling Psychiatric: Denies: Anxiety, Depression, Homicidal Ideations, Suicidal Ideations Hematologic/ Lymphatic: Reports: Easy Bruising, Easy Bleeding VTE Information - Inpt Only VTE Present on Admission: No VTE Mechan Device Prophylaxis: SCD's VTE Pharm Prophylaxis ordered?: No Reason prophylaxis not ordered:: Medical Contraindication - Patient will be continued on home apixaban regimen. Subjective: Patient seated upright in the PCU bed, fatigued, no acute distress, rate improved, suspect conversion. Objective: Physical Examination: General: awake, alert, oriented x 3 and cooperative, seated upright in the PCU bed, no acute distress, fatigued appearing. Skin: normal color, turgor, no icterus, cyanosis except notable diffuse staged ecchymoses to extremities. HEENT: AT/NC, EOMI, PERRLA, mildly dry MM, no carotid bruits or JVD noted. Lungs: Diminished breath sounds, greater bases, moderate effort, no rales, ronchi or wheezing. Heart: Improved, suspect converted, regular rate and rhythm; no gallop, rub audible. Abdomen: soft, obese, NTTP, ND, normal BS, no HSM. Extremities: no cyanosis or clubbing, see skin, mild ankle nonpitting edema, feet bilaterally more cool to touch but peripheral pulses intact, suspect chr onic. Neurological: patient awake, alert, oriented x 3; cognitive function intact; pupils equally reactive to light and accomodation; cranial nerves II-XII grossly normal, moving all 4 extremities, no focal deficits, strength moderately globally decreased secondary to acute presentation. Psychiatric: affect appears fatigued otherwise normal, no acute evidence of depressive or anxiety feelings. - Physical Exam Vitals/I&O's: Vital Signs Temp Pulse Resp BP Pulse Ox 98.2 F 110 H 19 H 142/96 H 100 11/23/20 10:00 11/23/20 10:00 11/23/20 10:00 11/23/20 10:00 11/23/20 10:00 Oxygen Delivery Method Room Air Weight: 160 lb Body Mass Index (BMI) 31.2 Laboratory Results 11/23/20 09:00: WBC 9.2, RBC 4.55, Hgb 13.8, Hct 43.4, MCV 95.4, MCH 30.3, MCHC 31.8 L, RDW Std Deviation 52.4 H, RDW Coeff of Eladia 15.7 H, Plt Count 213, MPV 9.1, Immature Gran % (Auto) 1.600 H, Neut % (Auto) 73.5 H, Lymph % (Auto) 18.5 L , [place] % (Auto) 5.7, Eos % (Auto) 0.3, Baso % (Auto) 0.4, Absolute Neuts (auto) 6.8, Absolute Lymphs (auto) 1.71, Nucleated RBC % 0.4 11/23/20 09:00: Sodium 146 H, Potassium 2.6 L*, Chloride 108 H, Carbon Dioxide 28.0, Anion Gap 10, BUN 22 H, Creatinine 0.75, Estim Creat Clear Calc 33.84, Est GFR (MDRD) Af Amer 96, Est GFR (MDRD) Non-Af 79, BUN/Creatinine Ratio 29.2 H, Glucose 118 H, Calcium 9.2, Total Bilirubin 1.10 H, AST 26, ALT 51, Alkaline Phosphatase 49, Total Protein 6.0 L, Albumin 2.7 L, Globulin 3.3, Albumin/Globulin Ratio 0.8 L 11/23/20 10:31: Urine Color Yellow, Urine Clarity Sl. Cloudy, Urine pH 8.0, Ur Specific [place] 1.010, Urine Protein 30 H, Urine Glucose (UA) Normal, Urine Ketones 15 H, Urine Occult Blood 10 H, Urine Nitrite Negative, Urine Bilirubin Negative, Urine Urobilinogen Normal, Ur Leukocyte Esterase Negative, Urine RBC 0 SEEN, Urine WBC 0 SEEN, Ur Squamous Epith Cells 0-5 SEEN, Urine Bacteria RARE, Urine Mucus RARE Current Medications Potassium Acetate 20 meq/ (Sodium Chloride) 260 mls @ 130 mls/hr IV X1 ONE Stop: 11/23/20 12:14 Assessment/Plan All Active Problems (Last Reviewed 11/12/20 @ 12:04 by Shannon Manning) Atrial fibrillation with RVR (Acute) Intractable nausea and vomiting (Acute) Weight loss, unintentional (Acute) Dysphagia (Acute) Falls (Acute) Dehydration (Acute) Hypokalemia (Acute) Leukocytosis (Acute) Shortness of breath (Acute) The patient is a 75 y/o F w/ PMHx: Chronic back pain with spinal stenosis, PAF on Eliquis, HTN, OA, Vitamin D deficiency, recent 10/03 admissions for PAF with RVR and Oropharyngeal dysphagia as well as PIERRE who now re-presents to the [facility] ED on 11/23/20 with history of ongoing persistently worsening weakness, fatigue, weight loss with nausea and emesis with apparently an unintentional weight loss of 50 pounds since August of the year prior with upcoming gastric emptying test per her report however given her significant weakness with gait and debility and inability to ambulate in her home. 1. Paroxsymal atrial fibrillation with recurrent RVR: EKG in ED w/ atrial fibrillation w/ RVR, initial EKG sinus rhythm. Patient administered labetalol in ED. Will admit to PCU, maintain on telemetry, obtain cardiac enzyme serial set, obtain magnesium level, continue to supplement and correct her potassium, obta in TSH level, continue home eliquis regimen, continue home metoprolol with dosing increase and dosage now as well as ongoing amiodarone; however, if intractable will transition to labetaolol versus cardizem drip, recent ECHO 09/17/2020 with normal LV systolic function, EF 65%, mildly enlarged LA, trivial MVI, mild TBI, trivial PVI, RVSP 37 mmHg. If proves difficult to manage will consult cardiology. 2. Hypokalemia: Likely secondary to poor intake and GI losses, admission K+ 2.6, magnesium level requested, supplementation given in the ED, will repeat level this afternoon and further correct as need as likely contributing to her acute presentation. 3. Ongoing oropharyngeal dysphagia with nausea and emesis: We will continue to pursue gastric emptying study, consult speech therapy, pending their evaluation allow sips of water with medications but defer any significant oral intake to be cautious. Had outpatient evaluation per Dr. Rosario with endoscopies and no clear specific etiology for ongoing nausea and emesis. 4. Debility, failure to thrive in adult: Secondary to significant nutritional deficits, ongoing issues with oropharyngeal dysphagia as noted and obvious electrolyte disturbances, will continue treatment as noted #1, #2, #3, PT/OT/case management consultations for discharge, will maintain on fall precautions. 5. Hypertension: Continue home regimen including metoprolol as noted, losartan, amlodipine with hold parameters, PRN hydralazine. 6. GERD with questionable history of gastritis: We will continue PPI as well as Carafate regimen. 7. Chronic back pain with spinal stenosis: Complicates presentation and debility, maintain on fall precautions, therapies consulted as noted, positional changes. 8. DVT prophylaxis: SCDs, continue home apixaban regimen. 9. CODE status: Patient ROSETTA is her and living will is currently in place. Discussed CODE status at length including difference between FULL code, DNR-CCA and DNR-CC status. Following discussions about the differences in these status, requested Full Code status. Advanced Care Planning Face to Face Time: 16 minutes. Inpatient E&M: 05107 Init Hosp L3 Procedures: 68455 Advncd Care Plan 30 Min
--- NOTE | 2020-11-23 11:32 | NURSING ---
DR BURNHAM FOR DR MCGHEE
--- NOTE | 2020-11-23 11:36 | NURSING ---
PCU WHITE HYPOKALEMIA, VOMITING, RECURRENT AFIB RVR
--- NOTE | 2020-11-23 11:43 | ED.RN ---
PHARMACY CALLED TO SEND UP CORRECT POTASSIUM CHLORIDE.
--- NOTE | 2020-11-23 11:44 | ED.RN ---
STATED TO HOLD THE LABETOLOL BECAUSE PT HEART RATE IS NOW STABLE IN THE 70'S.
[2020-11-23] MEDS: Potassium Chloride 10mEq/100mL 10 MEQ/100 ML IV.SOLN. 100 MEQ IV BOLUS ×2 (12:08→13:10)
[2020-11-23] MEDS: 0.9% Normal Saline 1,000 ML 100 ML IV ×2 (12:51→15:05)
[2020-11-23 13:05] LABS: Magnesium 2.1 mg/dL (1.6-2.6); Thyroid Stim Hormone (TSH) 0.26 uIU/mL (0.358-3.74)
[2020-11-23] MEDS: Metoprolol Tartrate 25 MG Tablet PO ×2 (14:13→21:03)
[2020-11-23] MEDS: Amiodarone 200 MG Tablet PO (14:13)
--- NOTE | 2020-11-23 14:15 | CASEMGMT ---
Assessment- SW completed assessment with patient at bedside. SW also confirmed addresses and phone numbers. Living situation- Patient lives with her in a 1 story home with 2 entry steps. PCP: [facility] Specialists: Dr Jeffry Rosario and Dr Rodriguez Pharmacy: [facility] in [place]. She thinks [employer] is her prescription coverage DME: shower bench, walker, grab bars, rails and seat to go over her toilet, hand held shower, and wheelchair ADL's/IADL's: Lately patient has been very weak and has required extra assistance. Her daughter helps her with bathing. Lately she has been using her walker and wheelchair due to being so weak. Toileting her has been assisting. Her manages the bills and her medications. She does not drive, but her does drive. Past SNF/rehab: None Past HH: None. She is interested in home health at d/c possibly LW: Yes. Not on file at [facility] POA: Yes. Not on file at [facility]. Her Aristides Perrin) is her HCPOA. Plan: At this time patient is not sure about a discharge plan. She would like to see what is recommended. She expressed interest in home health. SW told her that RN TEVIN and LENIN will follow and assist with d/c planning. Cathy PAK MSW
[2020-11-23 14:39] LABS: T4 Free Direct 2.48 ng/dL (0.76-1.46)
--- NOTE | 2020-11-23 14:48 | PCM.NTREPORT ---
Nutrition Therapy Report - History Nutrition Services has been consulted to:: Manage nutrient details of diet order Current diet / nutrition support order:: NPO - Anthropometric Measurements Height:: 5 ft Weight:: 72.2 kg Body Mass Index (BMI):: 31.1 - Relevant Labs Relevant Labs:: MCHC 31.8 g/dL (32-36) L 11/23/20 09:00 RDW Std Deviation 52.4 fl (35.1-43.9) H 11/23/20 09:00 RDW Coeff of Eladia 15.7 % (11.6-14.6) H 11/23/20 09:00 Immature Gran % (Auto) 1.600 % (0.0-0.9) H 11/23/20 09:00 Neut % (Auto) 73.5 % (47-70) H 11/23/20 09:00 Lymph % (Auto) 18.5 % (19-41) L 11/23/20 09:00 Sodium 146 mmol/L (136-145) H 11/23/20 09:00 Potassium 2.6 mmol/L (3.5-5.1) L* 11/23/20 09:00 Chloride 108 mmol/L (98-107) H 11/23/20 09:00 BUN 22 mg/dL (7-18) H 11/23/20 09:00 BUN/Creatinine Ratio 29.2 RATIO (10-20) H 11/23/20 09:00 Glucose 118 mg/dL (74-106) H 11/23/20 09:00 Total Bilirubin 1.10 mg/dL (0.20-1.00) H 11/23/20 09:00 Total Protein 6.0 g/dL (6.4-8.2) L 11/23/20 09:00 Albumin 2.7 g/dL (3.2-5.0) L 11/23/20 09:00 Albumin/Globulin Ratio 0.8 RATIO (0.9-2.4) L 11/23/20 09:00 TSH 0.26 uIU/mL (0.358-3.74) L 11/23/20 09:00 Free T4 2.48 ng/dL (0.76-1.46) H 11/23/20 09:00 - Assessment Food / Nutrition-Related History:: 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 Pt states she has been unintentionally losing wt over past few months. Wt on 09/19/20 was 191.8#, CBW 159.2#-32.6#/17% wt loss x 2 months, significant for malnutrition. Currently NPO pending CLOTH FOLDER MACHINE eval, gastric emptying study. - Nutrition Diagnosis Problem / Etiology / Signs & Symptoms (PES):: severe, acute malnutrition related to GI dysfunction, emesis as evidenced by 32.6#/17% wt loss x 2 months, estimated PO intake meeting less than 50% of nutritional needs over past 2 months. Evidence of Malnutrition Exists:: Yes Severe PCM:: Acute Illness - Nutrition Intervention Nutrition Prescription:: [id number] calories/day (RMRx1.3). 62-72 g protein/day (1g/kg). 1800mL fluid/day (1mL/calorie) - Food / Nutrient Delivery Interventions Summary of nutrition intervention:: Pt currently NPO pending further work-up. Will follow closely and provide additional interventions/recommendations as indicated. Nutrition support ordered as / adjusted to:: recommend advance diet as tolerated to regular w/ ensure w/ medpass. - MNT Monitoring Further MNT monitoring and evaluation required?: Yes MNT Follow-up in:: 1-2 days
[2020-11-23 16:31] LABS: Anion Gap 9 (5-15); BUN 16 mg/dL (7-18); BUN/Creat Ratio 28.8 RATIO (10-20); Calcium,Total 8.1 mg/dL (8.5-10.1); Chloride 115 mmol/L (98-107); Creatinine, Serum 0.56 mg/dL (0.55-1.02); EST Glomerular Filtration Rate 113 mL/min (>60); Est Glom Filt Rate - Afr Amer 136 mL/min (>60); Estimated Creatinine Clearance 33.84 ml/min; Glucose 90 mg/dL (74-106); Potassium 3.3 mmol/L (3.5-5.1); Sodium Level 147 mmol/L (136-145)
[2020-11-23] MEDS: Sucralfate 1 GM Tablet PO ×2 (17:26→21:02)
--- NOTE | 2020-11-23 19:56 | PCS.PANDOC ---
PANDEMIC DOCUMENTATION INITIATED: Date: 11/23/2020 Time: 1800
[2020-11-23] MEDS: APIXABAN 5 MG TABLET PO (21:02)
[2020-11-23] MEDS: Pantoprazole Sodium 40 MG Tablet PO (21:02)
[2020-11-24] VITALS (12 sets, daily range): BP systolic 139–158; BP diastolic 69–74; PULSE 60–70; RESP 16–18; TEMP 36.4–36.7; O2SAT 94–100
[2020-11-24] MEDS: 0.9% Normal Saline 1,000 ML 100 ML IV (01:06)
[2020-11-24 06:09] LABS: Absolute Lymphocyte Count 1.73 X10^3/uL (0.83-4.51); Basophil# 0.05 X10^3/uL; Basophil% 0.7 % (0-1); Eosinophil# 0.06 X10^3/uL; Eosinophils% 0.8 % (0-5); Hematocrit 37.3 % (37-47); Hemoglobin 11.8 g/dL (12.0-15.0); Lymphocyte # 1.73 X10^3/ul (4.0); Lymphocyte % 23.5 % (19-41); Mean Corp Hgb Conc 31.6 g/dL (32-36); Mean Corpuscular Hgb 30.5 pg (27.0-32.0); Mean Corpuscular Volume 96.4 fL (81-99); Mean Platelet Vol. 9.1 fl (6.2-12.0); Monocyte# 0.42 X10^3/uL; Monocyte% 5.7 % (0-10); NRBC Flagged by Analyzer 0.3 % (0-5); Neutrophil % 68.1 % (47-70); Platelet Count 182 K/mm3 (150-450); RBC Distribution Width CV 15.6 % (11.6-14.6); RBC Distribution Width SD 53.3 fl (35.1-43.9); Red Blood Count 3.87 M/mm3 (4.2-5.4); White Blood Count 7.4 K/mm3 (4.4-11.0)
[2020-11-24 06:51] LABS: ALB/GLOB Ratio 0.9 RATIO (0.9-2.4); AST(SGOT) 18 U/L (15-37); Alanine Aminotransfer ALT/SGPT 41 U/L (13-56); Albumin, Serum 2.4 g/dL (3.2-5.0); Alkaline Phosphatase 43 U/L (45-117); Anion Gap 9 (5-15); BUN 13 mg/dL (7-18); BUN/Creat Ratio 31.6 RATIO (10-20); Calcium,Total 7.9 mg/dL (8.5-10.1); Chloride 117 mmol/L (98-107); Creatinine, Serum 0.41 mg/dL (0.55-1.02); EST Glomerular Filtration Rate 159 mL/min (>60); Est Glom Filt Rate - Afr Amer 192 mL/min (>60); Estimated Creatinine Clearance 33.84 ml/min; Globulin 2.8 g/dL (2.2-4.2); Glucose 63 mg/dL (74-106); Potassium 2.8 mmol/L (3.5-5.1); Protein, Total 5.2 g/dL (6.4-8.2); Sodium Level 148 mmol/L (136-145)
--- NOTE | 2020-11-24 07:41 | PN_ITS ---
Patient Problems: Active and Suspected Problems (Last Reviewed 11/12/20 @ 12:04 by Shannon Manning) Atrial fibrillation with RVR (Acute) Intractable nausea and vomiting (Acute) Weight loss, unintentional (Acute) Dysphagia (Acute) Hypokalemia (Acute) Subjective: Patient overnight without issues per self and RN report. Patient placed on nectar thickened fluids to take sips with medications but Speech agreed with NPO status. Patient unable to perform gastric emptying study as unable to eat the oatmeal down within a certain period of time. Speech therapy recommended consideration repeat modified barium swallow study which requested and will be performed at 2 PM today. Patient still only able to keep some water down likely etiology for elevated sodium therefore given also hypoglycemia this a.m. transition to D5W with continued close monitoring. Discussed case with Dr. Rosario who the patient is seen outpatient and will initiate Reglan at this time. Patient may require transfer to be evaluated by motility specialist. She would not be a candidate for PEG tube per discussion with surgery as she has had emesis with items in her stomach frequently on testing evaluation. Patient denies fevers, chills, nausea, emesis, abdominal pain, chest pain or dyspnea. Objective: Physical Examination: General: awake, alert, oriented x 3 and cooperative, seated upright in the PCU bed, no acute distress, recently back from attempted gastric emptying study. Skin: normal color, turgor, no icterus, cyanosis except notable diffuse staged ecchymoses to extremities. HEENT: AT/NC, EOMI, PERRLA, mildly dry MM, no carotid bruits or JVD noted. Lungs: Diminished breath sounds, greater bases, moderate effort, no rales, ronchi or wheezing. Heart: Regular rate and rhythm; no gallop, rub audible. Abdomen: soft, obese, NTTP, ND, normal BS. Extremities: no cyanosis or clubbing, see skin, mild ankle nonpitting edema, feet bilaterally more cool to touch but peripheral pulses intact, suspect chronic. Neurological: patient awake, alert, oriented x 3; cognitive function intact; pupils equally reactive to light and accomodation; cranial nerves II-XII grossly normal, moving all 4 extremities, no focal deficits, strength moderately globally decreased secondary to acute presentation. Psychiatric: affect appears fatigued otherwise normal, no acute evidence of depressive or anxiety feelings. Vitals/I&O's: Vital Signs Temp Pulse Resp BP Pulse Ox 98.0 F 61 16 152/72 H 94 11/24/20 03:00 11/24/20 07:00 11/24/20 03:00 11/24/20 03:00 11/24/20 06:54 Oxygen Delivery Method Room Air Weight: 163 lb 2.273 oz Body Mass Index (BMI) 31.1 Intake and Output for Last 24 Hours 11/22/20 11/23/20 11/24/20 23:59 23:59 23:59 Intake Total 2358.33 / 2358.33 776.67 / 776.67 Balance 2358.33 / 2358.33 776.67 / 776.67 Laboratory Results 11/23/20 09:00: WBC 9.2, RBC 4.55, Hgb 13.8, Hct 43.4, MCV 95.4, MCH 30.3, MCHC 31.8 L, RDW Std Deviation 52.4 H, RDW Coeff of Eladia 15.7 H, Plt Count 213, MPV 9.1, Immature Gran % (Auto) 1.600 H, Neut % (Auto) 73.5 H, Lymph % (Auto) 18.5 L , [place] % (Auto) 5.7, Eos % (Auto) 0.3, Baso % (Auto) 0.4, Absolute Neuts (auto) 6.8, Absolute Lymphs (auto) 1.71, Nucleated RBC % 0.4 11/23/20 09:00: Sodium 146 H, Potassium 2.6 L*, Chloride 108 H, Carbon Dioxide 28.0, Anion Gap 10, BUN 22 H, Creatinine 0.75, Estim Creat Clear Calc 33.84, Est GFR (MDRD) Af Amer 96, Est GFR (MDRD) Non-Af 79, BUN/Creatinine Ratio 29.2 H, Glucose 118 H, Calcium 9.2, Total Bilirubin 1.10 H, AST 26, ALT 51, Alkaline Phosphatase 49, Total Protein 6.0 L, Albumin 2.7 L, Globulin 3.3, Albumin/Globulin Ratio 0.8 L 11/23/20 09:00: Magnesium 2.1, Troponin I < 0.015, TSH 0.26 L 11/23/20 09:00: Free T4 2.48 H 11/23/20 10:31: Urine Color Yellow, Urine Clarity Sl. Cloudy, Urine pH 8.0, Ur Specific [place] 1.010, Urine Protein 30 H, Urine Glucose (UA) Normal, Urine Ketones 15 H, Urine Occult Blood 10 H, Urine Nitrite Negative, Urine Bilirubin Negative, Urine Urobilinogen Normal, Ur Leukocyte Esterase Negative, Urine RBC 0 SEEN, Urine WBC 0 SEEN, Ur Squamous Epith Cells 0-5 SEEN, Urine Bacteria RARE, Urine Mucus RARE 11/23/20 16:09: Troponin I < 0.015 11/23/20 16:09: Sodium 147 H, Potassium 3.3 L, Chloride 115 H, Carbon Dioxide 23.0, Anion Gap 9, BUN 16, Creatinine 0.56, Estim Creat Clear Calc 33.84, Est GFR (MDRD) Af Amer 136, Est GFR (MDRD) Non-Af 113, BUN/Creatinine Ratio 28.8 H, Glucose 90, Calcium 8.1 L 11/23/20 18:55: Troponin I < 0.015 11/24/20 05:40: WBC 7.4, RBC 3.87 L, Hgb 11.8 L, Hct 37.3, MCV 96.4, MCH 30.5, MCHC 31.6 L, RDW Std Deviation 53.3 H, RDW Coeff of Eladia 15.6 H, Plt Count 182, MPV 9.1, Immature Gran % (Auto) 1.200 H, Neut % (Auto) 68.1, Lymph % (Auto) 23.5, [place] % (Auto) 5.7, Eos % (Auto) 0.8, Baso % (Auto) 0.7, Absolute Neuts (auto) 5.0, Absolute Lymphs (auto) 1.73, Nucleated RBC % 0.3 11/24/20 05:40: Sodium 148 H, Potassium 2.8 L, Chloride 117 H, Carbon Dioxide 22.0, Anion Gap 9, BUN 13, Creatinine 0.41 L, Estim Creat Clear Calc 33.84, Est GFR (MDRD) Af Amer 192, Est GFR (MDRD) Non-Af 159, BUN/Creatinine Ratio 31.6 H, Glucose 63 L, Calcium 7.9 L, Total Bilirubin 1.00, AST 18, ALT 41, Alkaline Phosphatase 43 L, Total Protein 5.2 L, Albumin 2.4 L, Globulin 2.8, Albumin/Globulin Ratio 0.9 Current Medications Acetaminophen (Acetaminophen 325 Mg Tablet) 650 mg PO Q6H PRN PRN PRN Reason: Pain Score 1-10/Temp > 100.7 F Al Hydroxide/Mg Hydroxide (Mag Hydrox/Al Hydrox/Simeth 30 Ml Udc) 30 ml PO Q6H PRN PRN PRN Reason: Gastric Burning Amiodarone HCl (Amiodarone 200 Mg Tablet) 200 mg PO DAILY [facility] Last Admin: 11/23/20 14:13 Dose: 200 mg Documented by: Amlodipine Besylate (Amlodipine 5 Mg Tablet) 5 mg PO DAILY [facility] Apixaban (Apixaban 5 Mg Tablet) 5 mg PO BID [facility] Last Admin: 11/23/20 21:02 Dose: 5 mg Documented by: Aspirin (Aspirin 81 Mg Tab.Chew) 81 mg PO DAILY@0800 [facility] Guaifenesin (Guaifenesin 10 Ml Udc (200mg/10ml)) 20 ml PO Q4H PRN PRN PRN Reason: COUGH Hydralazine HCl (Hydralazine 20 Mg/Ml Vial) 10 mg IV Q4H PRN PRN PRN Reason: SBP > 160 Dextrose () 1,000 mls @ 100 mls/hr IV .Q10H [facility] Losartan Potassium (Losartan Potassium 100 Mg Tablet) 100 mg PO DAILY [facility] Magnesium Hydroxide (Magnesium Hydroxide 30 Ml Udc) 30 ml PO DAILY PRN PRN PRN Reason: Constipation Melatonin (Melatonin 3 Mg Tablet) 3 mg PO QHS PRN PRN PRN Reason: INSOMNIA Metoprolol Tartrate (Metoprolol Tartrate 25 Mg Tablet) 25 mg PO BID [facility] Last Admin: 11/23/20 21:03 Dose: 25 mg Documented by: Nitroglycerin (Nitroglycerin (Inpatient Use) 0.4 Mg Tab.Subl) 0.4 mg SUBLINGUAL Q5M PRN PRN Reason: CARDIAC/CHEST PAIN Ondansetron HCl (Ondansetron 4 Mg/2 Ml Vial) 4 mg IV Q8H PRN PRN PRN Reason: NAUSEA/VOMITING Pantoprazole Sodium (Pantoprazole Sodium 40 Mg Tablet) 40 mg PO BID [facility] Last Admin: 11/23/20 21:02 Dose: 40 mg Documented by: Potassium Chloride (Potassium Ch[facility] 20 Meq Tablet) [facility] Last Admin: 11/23/20 17:26 Dose: 20 meq Documented by: Prochlorperazine Edisylate (Prochlorperazine 10 Mg/2 Ml Vial) 5 mg IV Q4H PRN PRN PRN Reason: Breakthrough Nausea/Vomiting Psyllium Hydrophilic Mucilloid (Psyllium 1 Packet) 1 packet PO DAILY PRN PRN PRN Reason: Constipation Senna/Docusate Sodium (Senna/Docusate Sodium 1 Tablet) 2 tablet PO BID PRN PRN PRN Reason: Constipation Sodium Chloride (0.9% Saline Lock 10 Ml Syringe) 10 - 40 ml IV UD PRN PRN Reason: SALINE FLUSH Sodium Chloride (0.9% Saline Lock 10 Ml Syringe) 10 - 40 ml IV UD PRN PRN Reason: SALINE FLUSH Sucralfate (Sucralfate 1 Gm Tablet) 1 gm PO 1HR_ACHS [facility] Last Admin: 11/23/20 21:02 Dose: 1 gm Documented by: Throat Lozenges (Benzocaine/Menthol 1 Lozenge) 1 lozenge MUCOUS MEM Q2H PRN PRN PRN Reason: SORE THROAT STROKE Vital Signs/Narrative: Vital Signs Pulse Pulse Ox 11/24/20 07:00 61 11/24/20 06:54 94 11/24/20 03:45 60 Medical Necessity - Tobacco Use Smoking Status: Never smoker Tobacco Use: Non-smoker Assessment/Plan All Active Problems (Last Reviewed 11/12/20 @ 12:04 by Shannon Manning) Atrial fibrillation with RVR (Acute) Intractable nausea and vomiting (Acute) Weight loss, unintentional (Acute) Dysphagia (Acute) Falls (Acute) Dehydration (Acute) Hypokalemia (Acute) Leukocytosis (Acute) Shortness of breath (Acute) The patient is a 75 y/o F w/ PMHx: Chronic back pain with spinal stenosis, PAF on Eliquis, HTN, OA, Vitamin D deficiency, recent 10/03 admissions for PAF with RVR and Oropharyngeal dysphagia as well as PIERRE who now re-presents to the [facility] ED on 11/23/20 with history of ongoing persistently worsening weakness, fatigue, weight loss with nausea and emesis with apparently an unintentional weight loss of 50 pounds since August of the year prior with upcoming gastric emptying test per her report however given her significant weakness with gait and debility and inability to ambulate in her home. 1. Paroxsymal atrial fibrillation with recurrent RVR, Converted: EKG in ED w/ atrial fibrillation w/ RVR, initial EKG sinus rhythm. Patient administered labetalol in ED. Admitted to the PCU, maintained on telemetry, unremarkable cycled cardiac enzymes, mag 2.1, TSH as noted low with elevated FT4 with ongoing outpatient work-up, continue to supplement and correct her potassium, continue home eliquis regimen, continue home metoprolol dosing with noted successful conversion, recent ECHO 09/17/2020 with normal LV systolic function, EF 65%, mildly enlarged LA, trivial MVI, mild TBI, trivial PVI, RVSP 37 mmHg. 2. Hypokalemia: Likely secondary to poor intake and GI losses, admission K+ 2.6, magnesium 2.1, supplementation given in the ED, repeat 11/23/2020 evening BMP with improvement to 3.3 however 11/24/2019 CMP with potassium 2.8, will give additional aggressive oral supplementation and continue twice daily dosing. Patient does have difficulty taking the pills but has been keeping this down per discussion with nursing and complained when administered IV K+. 3. Ongoing oropharyngeal dysphagia with severe dysmotility with nausea and emesis: Noted 11/18/2020 high-resolution esophageal motility study with impression noting a very weak swallow mechanism and contraction with normal LES relaxation tone and good clearance despite 90% of the swelling being read as ineffective. 11/10/2020 upper endoscopy with noted reflux esophagitis, small hiatal hernia, widely patent schatzki ring, erythematous mucosa of the stomach, bilious gastric fluid with evidence chronic duodenitis with discharge on sucralfate, continue PPI and pending pathology at that time with planned outpatient gastric emptying study. Unable to perform 11/24/2020 gastric emptying study secondary to inability to get oatmeal down within the specific time frame. Speech recommended repeat MBS which has been ordered. Will keep NPO except sip nectar thickened liquids with medications. Discussed with Dr. Rosario and will start trial lower dose reglan scheduled. 4. Primary Hyperthyroidism: TSH 0.26, free T4 mildly elevated 2.48 consistent with primary hyperthyroidism with noted follow-up planned with Dr. Mooney for reportedly thyroid nodules. Noted 11/15/2020 bilateral thyroid nodule FNA both noted to be consistent with benign colloid/follicular nodules 1 with specifically cystic change. Do not see any evidence that radioactive iodine uptake scanning was performed. Will need to continue planned evaluation with Dr. Mooney. 5. Debility, failure to thrive in adult: Secondary to significant nutritional deficits, ongoing issues with oropharyngeal dysphagia as noted and obvious electrolyte disturbances, will continue treatment as noted #1, #2, #3, PT/OT/case management consultations for discharge, maintain on fall precautions. 6. Hypernatremia with hypoglycemia: Patient with glucose 60 11/24/20 AM, Na increased to 148, will start on D5W and continue to closely monitor BMP. 7. Hypertension: Continue home regimen including metoprolol as noted, losartan, amlodipine with hold parameters, PRN hydralazine. 8. GERD with questionable history of gastritis: Continue PPI as well as Ca rafate regimen. 9. Chronic back pain with spinal stenosis: Complicates presentation and debility, maintain on fall precautions, therapies consulted as noted, positional changes. 10. DVT prophylaxis: SCDs, continue home apixaban regimen. 11. CODE status: Full Code status. Inpatient E&M: 78834 Subs Hosp L2
[2020-11-24] MEDS: Sucralfate 1 GM Tablet PO ×4 (08:30→21:00)
[2020-11-24] MEDS: Amiodarone 200 MG Tablet PO (08:30)
[2020-11-24] MEDS: Aspirin 81 MG TAB.CHEW PO (08:33)
[2020-11-24] MEDS: APIXABAN 5 MG TABLET PO ×2 (08:34→21:00)
[2020-11-24] MEDS: Losartan Potassium 100 MG Tablet PO (08:34)
[2020-11-24] MEDS: Metoprolol Tartrate 25 MG Tablet PO ×2 (08:34→21:00)
[2020-11-24] MEDS: amLODIPine 5 MG Tablet PO (08:37)
[2020-11-24] MEDS: Pantoprazole Sodium 40 MG Tablet PO ×2 (08:38→21:00)
--- NOTE | 2020-11-24 11:03 | PCM.CONS.GEN ---
Problem List (1) Intractable nausea and vomiting Status: Acute (2) Dysphagia Status: Acute Qualifiers: Dysphagia type: unspecified (3) Esophageal dysmotility Status: Acute (4) GERD (gastroesophageal reflux disease) Status: Acute Qualifiers: Esophagitis presence: with esophagitis Esophagitis bleeding: without hemorrhage Qualified Code(s): K21.00 - Gastro-esophageal reflux disease with esophagitis, without bleeding Reason for Consult Date of Consultation: 11/24/20 History of Present Illness: The patient is a 75 year old F who I have been asked to assist with per Dr. Crystal Linares and the written copy of my surgical consult and recommendations will be present in her charting. I initially had a chance to meet her on November 02, 2020. She had been sent in consultation for variety of issues. She was having trouble with nausea esophageal dysphagia and difficulty swallowing and weight loss and multiple thyroid nodules and hypokalemia. Reports she had been hospitalized at the [facility] early in September with atrial fibrillation. She had trouble taking supplemental potassium. Because of choking and nausea and emesis she went to the emergency room a prior to our appointment and she had IV replace potassium replacement She had a thyroid ultrasound showing a 1.6 cm right thyroid nodule and a 3.3 cm left thyroid nodule. On September 17, 2020 she had a modified barium swallow cookie swallow demonstrating mild oral pharyngeal dysphagia with poor epiglottic inversion. She had had 30 pound weight loss prior to seeing me and now a report of a 50 pound weight loss. She had a remote colonoscopy June 20, [address] Trev Wallace demonstrating pancolonic diverticulosis. On November 04, 2020 I had her obtain a upper GI contrast study. A small hiatal hernia with a large amount of gastroesophageal reflux was identified. There was aspiration of the ingested barium. Essentially a bronchogram was obtained. On November 10, 2019 when I did esophagogastroduodenoscopy. Small hiatal hernia was present. Very slight Schatzki ring. Diffuse erythema of the stomach and bilious fluid within the stomach. Duodenal inflammation. Pathology demonstrated minimal nonspecific chronic inflammation of the duodenum. Mild chronic inflammation of the gastric antrum. Unremarkable squamous mucosa of the distal esophagus. H. pylori was negative On November 12, 2000 I performed a ultrasound-guided bilateral thyroid nodule fine-needle aspiration. The left thyroid nodule was benign colloid follicular cells. The right side was also benign colloid follicular nodule with cystic change On November 18, 2020 she had esophageal manometry. This was quite abnormal. Patient has very weak swallow mechanism and contraction. The LES retraction was normal. Fluid bolus was achieved at approximately 90% although the swallows were interpreted as ineffective. We were hoping to obtain a nuclear medicine gastric emptying study as an outpatient to see how gastric emptying influenced her situation particularly in light that bilious staining of the stomach was identified at her upper endoscopy but the patient has been admitted. She tried to have that examination today but the instructions were to eat a certain amount of oatmeal within a brief time period and the patient was simply not able to perform that task. Past Medical History Past Medical History (Chronic Problems): Chronic Problems (Last Reviewed 11/12/20 @ 12:04 by Shannon Manning) Coronary artery disease (Chronic) Rheumatoid arthritis (Chronic) Multiple thyroid nodules (Chronic) HTN (hypertension) (Chronic) Atrial fibrillation and flutter (Chronic) Spinal stenosis (Chronic) Osteoarthritis (Chronic) Medical History: Medical History (Last Reviewed 11/12/20 @ 12:04 by Shannon Manning) Weight loss, unintentional (Acute) R63.4 Multiple thyroid nodules (Chronic) E04.2 HTN (hypertension) (Chronic) I10 Atrial fibrillation and flutter (Chronic) I48.91, I48.92 Spinal stenosis (Chronic) M48.00 Osteoarthritis (Chronic) M19.90 Anxiety F41.9 CAD (coronary artery disease) I25.10 Hemorrhoids K64.9 Rheumatoid arthritis M06.9 Allergies hydrocodone [From Vicodin] Allergy (Verified 11/23/20 08:13) Other severe headache Home Medications: Ambulatory Orders Medication Instructions Recorded Aspirin [Aspirin, Baby] 81 mg PO DAILY@0800 tab.chew 09/19/20 amiodarone 200 mg tablet 200 mg PO DAILY #90 tab 10/13/20 amlodipine 5 mg tablet 5 mg PO DAILY #90 tab 10/18/20 apixaban 5 mg tablet 5 mg PO BID #180 tab 10/18/20 metoprolol tartrate 25 mg tablet 25 mg PO BID #180 tab 10/18/20 Ondansetron [Zofran Odt] 4 mg PO Q8H PRN PRN #10 tab 11/01/20 Sucralfate [Carafate] 1 gm PO 4X/DAY #120 tab 11/10/20 losartan 100 mg tablet 100 mg PO DAILY #90 tab 11/17/20 Omeprazole 40 mg PO DAILY 11/23/20 Surgical History: Surgical History (Last Updated 11/12/20 @ 12:04 by Shannon Manning) History of bilateral knee replacement Z96.653 History of oral surgery Z98.890 S/P fine needle aspiration Onset Date: ~10/2020 Z98.890 left thyroid History of bladder suspension procedure Z98.890, Z87.448 Hx of cholecystectomy Z90.49 Hx of hysterectomy Z90.710 Surgical History: - - Ectomy, hysterectomy, bladder suspension, bilateral total knee replacement, thyroid aspiration, oral surgery. Psychiatric History: No pertinent psych hx INSTRUMENT PERSON History: No pertinent INSTRUMENT PERSON history Lives: Spouse/ Significant Other Smoking Status: Never smoker Tobacco Use: Non-smoker Alcohol: None Drugs: None - *Family History Paternal Family History: Family History (Last Reviewed 11/12/20 @ 12:04 by Shannon Manning) Mother Hypertension Brother Diabetes History Items: Hypertension Sibling Family History: Family History (Last Reviewed 11/12/20 @ 12:04 by Shannon Manning) Mother Hypertension Brother Diabetes History Items: Diabetes Maternal Family History: Family History (Last Reviewed 11/12/20 @ 12:04 by Shannon Manning) Mother Hypertension Brother Diabetes History Items: Hypertension Review of Systems Constitutional: Reports: Weakness HEENT: Reports: Dysphasia Cardiovascular: Denies: Chest Pain Gastrointestinal: Reports: Nausea, Vomiting. Denies: Abdominal Pain Patient Problems: Active and Suspected Problems (Last Reviewed 11/12/20 @ 12:04 by Shannon Manning) Atrial fibrillation with RVR (Acute) Intractable nausea and vomiting (Acute) Weight loss, unintentional (Acute) Dysphagia (Acute) Hypokalemia (Acute) - Physical Exam Vitals/I&O's: Vital Signs Temp Pulse Resp BP Pulse Ox 98.0 F 68 16 140/74 H 94 11/24/20 03:00 11/24/20 08:34 11/24/20 03:00 11/24/20 08:34 11/24/20 06:54 Oxygen Delivery Method Room Air Weight: 163 lb 2.273 oz Body Mass Index (BMI) 31.1 Intake and Output for Last 24 Hours 11/22/20 11/23/20 11/24/20 23:59 23:59 23:59 Intake Total 2358.33 / 2358.33 776.67 / 776.67 Balance 2358.33 / 2358.33 776.67 / 776.67 General: Alert, Oriented x3, Cooperative, No apparent distress Abdomen: Soft, Non Tender, Non-Distended Laboratory Results 11/23/20 09:00: Magnesium 2.1, Troponin I < 0.015, TSH 0.26 L 11/23/20 09:00: Free T4 2.48 H 11/23/20 16:09: Troponin I < 0.015 11/23/20 16:09: Sodium 147 H, Potassium 3.3 L, Chloride 115 H, Carbon Dioxide 23.0, Anion Gap 9, BUN 16, Creatinine 0.56, Estim Creat Clear Calc 33.84, Est GFR (MDRD) Af Amer 136, Est GFR (MDRD) Non-Af 113, BUN/Creatinine Ratio 28.8 H, Glucose 90, Calcium 8.1 L 11/23/20 18:55: Troponin I < 0.015 11/24/20 05:40: WBC 7.4, RBC 3.87 L, Hgb 11.8 L, Hct 37.3, MCV 96.4, MCH 30.5, MCHC 31.6 L, RDW Std Deviation 53.3 H, RDW Coeff of Eladia 15.6 H, Plt Count 182, MPV 9.1, Immature Gran % (Auto) 1.200 H, Neut % (Auto) 68.1, Lymph % (Auto) 23.5, [place] % (Auto) 5.7, Eos % (Auto) 0.8, Baso % (Auto) 0.7, Absolute Neuts (auto) 5.0, Absolute Lymphs (auto) 1.73, Nucleated RBC % 0.3 11/24/20 05:40: Sodium 148 H, Potassium 2.8 L, Chloride 117 H, Carbon Dioxide 22.0, Anion Gap 9, BUN 13, Creatinine 0.41 L, Estim Creat Clear Calc 33.84, Est GFR (MDRD) Af Amer 192, Est GFR (MDRD) Non-Af 159, BUN/Creatinine Ratio 31.6 H, Glucose 63 L, Calcium 7.9 L, Total Bilirubin 1.00, AST 18, ALT 41, Alkaline Phosphatase 43 L, Total Protein 5.2 L, Albumin 2.4 L, Globulin 2.8, Albumin/Globulin Ratio 0.9 Current Medications Acetaminophen (Acetaminophen 325 Mg Tablet) 650 mg PO Q6H PRN PRN PRN Reason: Pain Score 1-10/Temp > 100.7 F Al Hydroxide/Mg Hydroxide (Mag Hydrox/Al Hydrox/Simeth 30 Ml Udc) 30 ml PO Q6H PRN PRN PRN Reason: Gastric Burning Amiodarone HCl (Amiodarone 200 Mg Tablet) 200 mg PO DAILY [facility] Last Admin: 11/24/20 08:30 Dose: 200 mg Documented by: Amlodipine Besylate (Amlodipine 5 Mg Tablet) 5 mg PO DAILY [facility] Last Admin: 11/24/20 08:37 Dose: 5 mg Documented by: Apixaban (Apixaban 5 Mg Tablet) 5 mg PO BID [facility] Last Admin: 11/24/20 08:34 Dose: 5 mg Documented by: Aspirin (Aspirin 81 Mg Tab.Chew) 81 mg PO DAILY@0800 [facility] Last Admin: 11/24/20 08:33 Dose: 81 mg Documented by: Guaifenesin (Guaifenesin 10 Ml Udc (200mg/10ml)) 20 ml PO Q4H PRN PRN PRN Reason: COUGH Hydralazine HCl (Hydralazine 20 Mg/Ml Vial) 10 mg IV Q4H PRN PRN PRN Reason: SBP > 160 Dextrose () 1,000 mls @ 100 mls/hr IV .Q10H [facility] Losartan Potassium (Losartan Potassium 100 Mg Tablet) 100 mg PO DAILY [facility] Last Admin: 11/24/20 08:34 Dose: 100 mg Documented by: Magnesium Hydroxide (Magnesium Hydroxide 30 Ml Udc) 30 ml PO DAILY PRN PRN PRN Reason: Constipation Melatonin (Melatonin 3 Mg Tablet) 3 mg PO QHS PRN PRN PRN Reason: INSOMNIA Metoclopramide HCl (Metoclopramide 10 Mg/2 Ml Vial) 2.5 mg IV Q8 [facility] Metoprolol Tartrate (Metoprolol Tartrate 25 Mg Tablet) 25 mg PO BID [facility] Last Admin: 11/24/20 08:34 Dose: 25 mg Documented by: Nitroglycerin (Nitroglycerin (Inpatient Use) 0.4 Mg Tab.Subl) 0.4 mg SUBLINGUAL Q5M PRN PRN Reason: CARDIAC/CHEST PAIN Ondansetron HCl (Ondansetron 4 Mg/2 Ml Vial) 4 mg IV Q8H PRN PRN PRN Reason: NAUSEA/VOMITING Pantoprazole Sodium (Pantoprazole Sodium 40 Mg Tablet) 40 mg PO BID [facility] Last Admin: 11/24/20 08:38 Dose: 40 mg Documented by: Potassium Chloride ([facility] 20 [facility] Last Admin: 11/24/20 08:31 Dose: 20 meq Documented by: Prochlorperazine Edisylate (Prochlorperazine 10 Mg/2 Ml Vial) 5 mg IV Q4H PRN PRN PRN Reason: Breakthrough Nausea/Vomiting Psyllium Hydrophilic Mucilloid (Psyllium 1 Packet) 1 packet PO DAILY PRN PRN PRN Reason: Constipation Senna/Docusate Sodium (Senna/Docusate Sodium 1 Tablet) 2 tablet PO BID PRN PRN PRN Reason: Constipation Sodium Chloride (0.9% Saline Lock 10 Ml Syringe) 10 - 40 ml IV UD PRN PRN Reason: SALINE FLUSH Sodium Chloride (0.9% Saline Lock 10 Ml Syringe) 10 - 40 ml IV UD PRN PRN Reason: SALINE FLUSH Sucralfate (Sucralfate 1 Gm Tablet) 1 gm PO 1HR_ACHS [facility] Last Admin: 11/24/20 08:30 Dose: 1 gm Documented by: Throat Lozenges (Benzocaine/Menthol 1 Lozenge) 1 lozenge MUCOUS MEM Q2H PRN PRN PRN Reason: SORE THROAT Assessment/Plan All Active Problems (Last Reviewed 11/12/20 @ 12:04 by Shannon Manning) Atrial fibrillation with RVR (Acute) Intractable nausea and vomiting (Acute) Esophageal dysmotility (Acute) GERD (gastroesophageal reflux disease) (Acute) Weight loss, unintentional (Acute) Dysphagia (Acute) Falls (Acute) Dehydration (Acute) Hypokalemia (Acute) Leukocytosis (Acute) Shortness of breath (Acute) Complicated 75-year-old female. It appears that she has oral pharyngeal motility and coordination dysfunction. She has significant esophageal dysmotility problems. She has free reflux with pulmonary aspiration. Mild gastritis and duodenitis. It is not yet determined whether she has gastric emptying issues as well. New to To try to treat the reflux symptoms surgically would be fraught with hazard because of her poor esophageal motility. This clearly would do nothing to improve her oral pharyngeal dysmotility. Placing a PEG tube obviously would be of no advantage as she would freely reflux. 1 could consider placing a percutaneous endoscopic jejunostomy tube however this then would correlate with instructions for her to cease drinking and eating. Dr. Crystal Linares has discussed with me initiating her on metoclopramide. That would seem reasonable and the patient has been cautioned about the potential side effects. The patient is a on amiodarone and it is not clear to me whether this could be contributory to any of her smooth muscle issues. Her problems seem to have initiated approximately August 2020 Based upon the testing that I had obtained I was anticipating likely a tertiary consultation because of the complexity of her oral pharyngeal and esophageal dysmotility regarding any other potential treatment options that would still allow the patient to eat and drink. The option of a PEJ tube is present however this would of note stop the patient from eating and drinking. It is of additional note that the patient is anticoagulated on apixaban. I will follow as needed. Jeffry Rosario M.D., F.A.C.S.
[2020-11-24] MEDS: Metoclopramide 10 MG/2 ML Vial 2.5 MG IV ×3 (11:07→21:00)
[2020-11-24] MEDS: 0.9% Saline Lock 10 ML Syringe IV ×2 (16:02→20:59)
[2020-11-24 16:07] LABS: Anion Gap 7 (5-15); BUN 11 mg/dL (7-18); BUN/Creat Ratio 23.9 RATIO (10-20); Calcium,Total 8.4 mg/dL (8.5-10.1); Chloride 117 mmol/L (98-107); Creatinine, Serum 0.46 mg/dL (0.55-1.02); EST Glomerular Filtration Rate 140 mL/min (>60); Est Glom Filt Rate - Afr Amer 169 mL/min (>60); Estimated Creatinine Clearance 33.84 ml/min; Glucose 109 mg/dL (74-106); Potassium 3.8 mmol/L (3.5-5.1); Sodium Level 147 mmol/L (136-145)
--- NOTE | 2020-11-24 19:14 | ST.MBS ---
Modified Barium Swallow - Patient Information Study Date: 11/24/20 Study Time: 12:00 Direct Billable Minutes: 75 Total Minutes procedure & reportin Diagnosis: Dysphagia (R13.12) Referring Physician: Crystal Linares Reason for Referral: The patient is a 75 year old female referred for a modified barium swallow (MBS) study to objectively assess the patients oropharyngeal swallow function under fluoroscopy secondary to reported persistent issues with oropharyngeal dysphagia with nausea, emesis, and failure to thrive with unintentional weight loss (~50lbs); currently admitted to [facility] secondary to paroxysmal atrial fibrillation with recurrent RVR. 11/04/2020 barium swallow study revealed a sliding hiatal hernia with a large amount of gastroesophageal reflux; patient aspirates the ingested barium. Medical History: Rheumatoid arthritis, unintentional weight loss, multiple thyroid nodules, coronary artery disease, atrial fibrillation and flutter, hypertension, spinal stenosis, osteoarthritis, anxiety - Penetration-Aspiration Scale Penetration-Aspiration Scale: OBJECTIVE ASSESSMENT OF SWALLOW FUNCTION (QUANTITATIVE ? PER TRIAL): PENETRATION / ASPIRATION SCALE (ACEVEDO): 1 = does not enter airway 2 = enters airway/above vocal folds/ejected 3 = enters airway/above vocal folds/not ejected 4 = enters airway/contacts vocal folds/ejected 5 = enters airway/contacts vocal folds/not ejected 6 = enters airway/below vocal folds/ejected 7 = enters airway/below vocal folds/not ejected despite effort 8 = enters airway/below vocal folds/no effort PENETRATION / ASPIRATION SCALE (SCORE): Thin liquid - 5 mL tsp.: 2 Thin liquids via cup: 1 Thin liquids via cup: 1 Pudding via spoon: 1 Pudding via spoon: 1 Thin liquids via straw: 1 Thin liquids via straw (chin tuck): 1 Thin liquids via straw (chin tuck): 1 Thin liquids via straw (chin tuck): 1 Thin liquids via straw (chin tuck): 1 - Oral Phase Labial Seal: No Labial Escape Tongue Control During Bolus Hold: Posterior escape of greater than half of bolus Bolus Transport/Lingual Motion: Slowed tongue motion Oral Residue: Trace residue lining oral structures - Pharyngeal Phase Initiation of Pharyngeal Swallow: Bolus head at posterior laryngeal surgace of epiglottis Soft Palate Elevation: No bolus between soft palate and pharyngeal wall Laryngeal Elevation: Partial superior movement thyroid cart/partial apprx aryt-epig petiole Anterior Hyoid Excursion: Partial anterior movement Epiglottic Movement: Complete inversion Laryngeal Vestibule Closure at Height of Swallow: Complete; no air/contrast in laryngeal vestibule Pharyngeal Stripping Wave: Present - complete Pharyngoesophageal Segment Opening: Parital distension and partial duration; parital obstruction of flow Tongue Base Retraction: Trace column of contrast between tongue base & post. pharyngeal wall Pharyngeal Residue: Trace residue within or on pharyngeal structures - Esophageal Phase Esophageal Clearance: Complete clearance - Diagnosis/Impression Diagnosis: Dysphagia (R13.12) Impression: The patient presents with mild oropharyngeal dysphagia (DSRS: 1) with transient shallow penetration of thin liquids Her swallow profile was marked by discoordinated bolus transportation particularly with semisolids and solids, with reported nausea which was anticipated to worsen during intake likely complicating smooth bolus transition. She was additionally noted to self-limit bolus volumes due to her nausea and concern for emesis. Inconsistent oral containment with premature posterior bolus loss (ameliorated with execution of the chin tuck posture). Solid textures held secondary to edentulous status along with reported nausea, with the patient requesting to hold solid texture trials. No obvious esophageal phase abnormalities observed. Noted calcification along the anterior tracheal wall. - Recommendations Comment: DIET TEXTURE RECOMMENDATIONS: minced & moist textured (IDDSI: 5), thin liquid (IDDSI: 0) diet RECOMMENDED COMPENSATORY STRATEGIES: supervision, chin tuck with intake via straw, reduced bolus volume (4mm bolus size), seated upright at 90 degrees during PO intake, remain upright for 30-60 minutes post meal (GERD precaution) Need for Skilled Speech Therapy Services: Yes Education Completed: 1. Described result of evaluation., 7. Pt requires further education on strategies & risks. - Image Count: 1,[phone] - Status Active ST Patient: Active
--- NOTE | 2020-11-24 19:19 | ST ---
MBS completed this date, with results as follows: RESULTS OF THE EVALUATION: The patient presents with mild oropharyngeal dysphagia (DSRS: 1) with transient shallow penetration of thin liquids Her swallow profile was marked by discoordinated bolus transportation particularly with semisolids and solids, with reported nausea which was anticipated to worsen during intake likely complicating smooth bolus transition. She was additionally noted to self-limit bolus volumes due to her nausea and concern for emesis. Inconsistent oral containment with premature posterior bolus loss (ameliorated with execution of the chin tuck posture). Solid textures held secondary to edentulous status along with reported nausea, with the patient requesting to hold solid texture trials. No obvious esophageal phase abnormalities observed. Noted calcification along the anterior tracheal wall. DIET TEXTURE RECOMMENDATIONS: minced & moist textured (IDDSI: 5), thin liquid (IDDSI: 0) diet RECOMMENDED COMPENSATORY STRATEGIES: supervision, chin tuck with intake via straw, reduced bolus volume (4mm bolus size), seated upright at 90 degrees during PO intake, remain upright for 30-60 minutes post meal (GERD precaution) Sreedhar Leon M.A., CCC-OPHTHALMIC SURGICAL ASSISTANT, CBIS MBSImP Certified, LSVT Certified [facility] Speech-Language Pathology Department Email: [email or web address]
[2020-11-25] VITALS (11 sets, daily range): BP systolic 93–157; BP diastolic 60–74; PULSE 62–81; RESP 16–18; TEMP 36.2–37.1; O2SAT 95–100
[2020-11-25] MEDS: Metoclopramide 10 MG/2 ML Vial 2.5 MG IV ×3 (05:06→21:30)
[2020-11-25] MEDS: 0.9% Saline Lock 10 ML Syringe IV ×2 (05:06→13:16)
--- NOTE | 2020-11-25 06:12 | PN.SURG_ITS ---
Patient Problems: Active and Suspected Problems (Last Reviewed 11/12/20 @ 12:04 by Shannon Manning) Atrial fibrillation with RVR (Acute) Intractable nausea and vomiting (Acute) Esophageal dysmotility (Acute) GERD (gastroesophageal reflux disease) (Acute) Weight loss, unintentional (Acute) Dysphagia (Acute) Hypokalemia (Acute) Subjective: Results of the modified barium swallow noted and seems similar to the recent previous one as well. A recent upper GI contrast study demonstrated free reflux and aspiration with a bronchogram demonstrated. The patient has had progressive weight loss. I discussed with her that a surgical technique could be utilized to try to help supplement her nutrition. I described to her the benefit, risk, alternatives of placing a percutaneous endoscopic jejunostomy tube. Admittedly these are technically more challenging to place. It is possible even with a jejunostomy tube that she was to have enterogastric reflux. However this might supplement some of her nutritional needs. - Physical Exam Vitals/I&O's: Vital Signs Temp Pulse Resp BP Pulse Ox 98.8 F 68 16 157/74 H 98 11/25/20 03:00 11/25/20 03:00 11/25/20 03:00 11/25/20 03:00 11/25/20 03:00 Oxygen Delivery Method Room Air Weight: 166 lb 0.129 oz Body Mass Index (BMI) 31.1 Intake and Output for Last 24 Hours 11/23/20 11/24/20 11/25/20 23:59 23:59 23:59 Intake Total 2358.33 / 2358.33 2086.67 / 2086.67 0 / 0 Balance 2358.33 / 2358.33 2086.67 / 2086.67 0 / 0 Laboratory Results 11/24/20 05:40: Sodium 148 H, Potassium 2.8 L, Chloride 117 H, Carbon Dioxide 22.0, Anion Gap 9, BUN 13, Creatinine 0.41 L, Estim Creat Clear Calc 33.84, Est GFR (MDRD) Af Amer 192, Est GFR (MDRD) Non-Af 159, BUN/Creatinine Ratio 31.6 H, Glucose 63 L, Calcium 7.9 L, Total Bilirubin 1.00, AST 18, ALT 41, Alkaline Phosphatase 43 L, Total Protein 5.2 L, Albumin 2.4 L, Globulin 2.8, Albumin/Globulin Ratio 0.9 11/24/20 15:44: Sodium 147 H, Potassium 3.8, Chloride 117 H, Carbon Dioxide 23.0, Anion Gap 7, BUN 11, Creatinine 0.46 L, Estim Creat Clear Calc 33.84, Est GFR (MDRD) Af Amer 169, Est GFR (MDRD) Non-Af 140, BUN/Creatinine Ratio 23.9 H, Glucose 109 H, Calcium 8.4 L Current Medications Acetaminophen (Acetaminophen 325 Mg Tablet) 650 mg PO Q6H PRN PRN PRN Reason: Pain Score 1-10/Temp > 100.7 F Al Hydroxide/Mg Hydroxide (Mag Hydrox/Al Hydrox/Simeth 30 Ml Udc) 30 ml PO Q6H PRN PRN PRN Reason: Gastric Burning Amiodarone HCl (Amiodarone 200 Mg Tablet) 200 mg PO DAILY [facility] Last Admin: 11/24/20 08:30 Dose: 200 mg Documented by: Amlodipine Besylate (Amlodipine 5 Mg Tablet) 5 mg PO DAILY [facility] Last Admin: 11/24/20 08:37 Dose: 5 mg Documented by: Apixaban (Apixaban 5 Mg Tablet) 5 mg PO BID [facility] Last Admin: 11/24/20 21:00 Dose: 5 mg Documented by: Aspirin (Aspirin 81 Mg Tab.Chew) 81 mg PO DAILY@0800 [facility] Last Admin: 11/24/20 08:33 Dose: 81 mg Documented by: Guaifenesin (Guaifenesin 10 Ml Udc (200mg/10ml)) 20 ml PO Q4H PRN PRN PRN Reason: COUGH Hydralazine HCl (Hydralazine 20 Mg/Ml Vial) 10 mg IV Q4H PRN PRN PRN Reason: SBP > 160 Dextrose () 1,000 mls @ 100 mls/hr IV .Q10H [facility] Last Infusion: 11/24/20 23:55 Dose: 100 mls/hr Documented by: Losartan Potassium (Losartan Potassium 100 Mg Tablet) 100 mg PO DAILY [facility] Last Admin: 11/24/20 08:34 Dose: 100 mg Documented by: Magnesium Hydroxide (Magnesium Hydroxide 30 Ml Udc) 30 ml PO DAILY PRN PRN PRN Reason: Constipation Melatonin (Melatonin 3 Mg Tablet) 3 mg PO QHS PRN PRN PRN Reason: INSOMNIA Metoclopramide HCl (Metoclopramide 10 Mg/2 Ml Vial) 2.5 mg IV Q8 [facility] Last Admin: 11/25/20 05:06 Dose: 2.5 mg Documented by: Metoprolol Tartrate (Metoprolol Tartrate 25 Mg Tablet) 25 mg PO BID [facility] Last Admin: 11/24/20 21:00 Dose: 25 mg Documented by: Nitroglycerin (Nitroglycerin (Inpatient Use) 0.4 Mg Tab.Subl) 0.4 mg SUBLINGUAL Q5M PRN PRN Reason: CARDIAC/CHEST PAIN Ondansetron HCl (Ondansetron 4 Mg/2 Ml Vial) 4 mg IV Q8H PRN PRN PRN Reason: NAUSEA/VOMITING Pantoprazole Sodium (Pantoprazole Sodium 40 Mg Tablet) 40 mg PO BID [facility] Last Admin: 11/24/20 21:00 Dose: 40 mg Documented by: Potassium Chloride ([facility] Admin: 11/24/20 16:02 Dose: 20 meq Documented by: Prochlorperazine Edisylate (Prochlorperazine 10 Mg/2 Ml Vial) 5 mg IV Q4H PRN PRN PRN Reason: Breakthrough Nausea/Vomiting Psyllium Hydrophilic Mucilloid (Psyllium 1 Packet) 1 packet PO DAILY PRN PRN PRN Reason: Constipation Senna/Docusate Sodium (Senna/Docusate Sodium 1 Tablet) 2 tablet PO BID PRN PRN PRN Reason: Constipation Sodium Chloride (0.9% Saline Lock 10 Ml Syringe) 10 - 40 ml IV UD PRN PRN Reason: SALINE FLUSH Last Admin: 11/25/20 05:06 Dose: 10 ml Documented by: Sodium Chloride (0.9% Saline Lock 10 Ml Syringe) 10 - 40 ml IV UD PRN PRN Reason: SALINE FLUSH Sucralfate (Sucralfate 1 Gm Tablet) 1 gm PO 1HR_ACHS [facility] Last Admin: 11/24/20 21:00 Dose: 1 gm Documented by: Throat Lozenges (Benzocaine/Menthol 1 Lozenge) 1 lozenge MUCOUS MEM Q2H PRN PRN PRN Reason: SORE THROAT Medical Necessity - Tobacco Use Smoking Status: Never smoker Tobacco Use: Non-smoker Assessment/Plan All Active Problems (Last Reviewed 11/12/20 @ 12:04 by Shannon Manning) Atrial fibrillation with RVR (Acute) Intractable nausea and vomiting (Acute) Esophageal dysmotility (Acute) GERD (gastroesophageal reflux disease) (Acute) Weight loss, unintentional (Acute) Dysphagia (Acute) Falls (Acute) Dehydration (Acute) Hypokalemia (Acute) Leukocytosis (Acute) Shortness of breath (Acute) I discussed with her that a surgical technique could be utilized to try to help supplement her nutrition. I described to her the benefit, risk, alternatives of placing a percutaneous endoscopic jejunostomy tube. Admittedly these are technically more challenging to place. It is possible even with a jejunostomy tube that she was to have enterogastric reflux. However this might supplement some of her nutritional needs.
--- NOTE | 2020-11-25 06:15 | PCM.PN.SRG ---
Patient Problems: Active and Suspected Problems (Last Reviewed 11/12/20 @ 12:04 by Shannon Manning) Atrial fibrillation with RVR (Acute) Intractable nausea and vomiting (Acute) Esophageal dysmotility (Acute) GERD (gastroesophageal reflux disease) (Acute) Weight loss, unintentional (Acute) Dysphagia (Acute) Hypokalemia (Acute) Subjective: The results of the patient's modified barium swallow has been noted. It seems similar to the one in the recent past. Her contrast upper GI study demonstrated wide-open reflux and aspiration even demonstrating a bronchogram. She has just been initiated on Reglan therapy. - Physical Exam Vitals/I&O's: Vital Signs Temp Pulse Resp BP Pulse Ox 98.8 F 68 16 157/74 H 98 11/25/20 03:00 11/25/20 03:00 11/25/20 03:00 11/25/20 03:00 11/25/20 03:00 Oxygen Delivery Method Room Air Weight: 166 lb 0.129 oz Body Mass Index (BMI) 31.1 Intake and Output for Last 24 Hours 11/23/20 11/24/20 11/25/20 23:59 23:59 23:59 Intake Total 2358.33 / 2358.33 2086.67 / 2086.67 0 / 0 Balance 2358.33 / 2358.33 2086.67 / 2086.67 0 / 0 Laboratory Results 11/24/20 05:40: Sodium 148 H, Potassium 2.8 L, Chloride 117 H, Carbon Dioxide 22.0, Anion Gap 9, BUN 13, Creatinine 0.41 L, Estim Creat Clear Calc 33.84, Est GFR (MDRD) Af Amer 192, Est GFR (MDRD) Non-Af 159, BUN/Creatinine Ratio 31.6 H, Glucose 63 L, Calcium 7.9 L, Total Bilirubin 1.00, AST 18, ALT 41, Alkaline Phosphatase 43 L, Total Protein 5.2 L, Albumin 2.4 L, Globulin 2.8, Albumin/Globulin Ratio 0.9 11/24/20 15:44: Sodium 147 H, Potassium 3.8, Chloride 117 H, Carbon Dioxide 23.0, Anion Gap 7, BUN 11, Creatinine 0.46 L, Estim Creat Clear Calc 33.84, Est GFR (MDRD) Af Amer 169, Est GFR (MDRD) Non-Af 140, BUN/Creatinine Ratio 23.9 H, Glucose 109 H, Calcium 8.4 L Current Medications Acetaminophen (Acetaminophen 325 Mg Tablet) 650 mg PO Q6H PRN PRN PRN Reason: Pain Score 1-10/Temp > 100.7 F Al Hydroxide/Mg Hydroxide (Mag Hydrox/Al Hydrox/Simeth 30 Ml Udc) 30 ml PO Q6H PRN PRN PRN Reason: Gastric Burning Amiodarone HCl (Amiodarone 200 Mg Tablet) 200 mg PO DAILY [facility] Last Admin: 11/24/20 08:30 Dose: 200 mg Documented by: Amlodipine Besylate (Amlodipine 5 Mg Tablet) 5 mg PO DAILY [facility] Last Admin: 11/24/20 08:37 Dose: 5 mg Documented by: Apixaban (Apixaban 5 Mg Tablet) 5 mg PO BID [facility] Last Admin: 11/24/20 21:00 Dose: 5 mg Documented by: Aspirin (Aspirin 81 Mg Tab.Chew) 81 mg PO DAILY@0800 [facility] Last Admin: 11/24/20 08:33 Dose: 81 mg Documented by: Guaifenesin (Guaifenesin 10 Ml Udc (200mg/10ml)) 20 ml PO Q4H PRN PRN PRN Reason: COUGH Hydralazine HCl (Hydralazine 20 Mg/Ml Vial) 10 mg IV Q4H PRN PRN PRN Reason: SBP > 160 Dextrose () 1,000 mls @ 100 mls/hr IV .Q10H [facility] Last Infusion: 11/24/20 23:55 Dose: 100 mls/hr Documented by: Losartan Potassium (Losartan Potassium 100 Mg Tablet) 100 mg PO DAILY [facility] Last Admin: 11/24/20 08:34 Dose: 100 mg Documented by: Magnesium Hydroxide (Magnesium Hydroxide 30 Ml Udc) 30 ml PO DAILY PRN PRN PRN Reason: Constipation Melatonin (Melatonin 3 Mg Tablet) 3 mg PO QHS PRN PRN PRN Reason: INSOMNIA Metoclopramide HCl (Metoclopramide 10 Mg/2 Ml Vial) 2.5 mg IV Q8 [facility] Last Admin: 11/25/20 05:06 Dose: 2.5 mg Documented by: Metoprolol Tartrate (Metoprolol Tartrate 25 Mg Tablet) 25 mg PO BID [facility] Last Admin: 11/24/20 21:00 Dose: 25 mg Documented by: Nitroglycerin (Nitroglycerin (Inpatient Use) 0.4 Mg Tab.Subl) 0.4 mg SUBLINGUAL Q5M PRN PRN Reason: CARDIAC/CHEST PAIN Ondansetron HCl (Ondansetron 4 Mg/2 Ml Vial) 4 mg IV Q8H PRN PRN PRN Reason: NAUSEA/VOMITING Pantoprazole Sodium (Pantoprazole Sodium 40 Mg Tablet) 40 mg PO BID [facility] Last Admin: 11/24/20 21:00 Dose: 40 mg Documented by: Potassium Chloride ([facility] 20 [facility] Admin: 11/24/20 16:02 Dose: 20 meq Documented by: Prochlorperazine Edisylate (Prochlorperazine 10 Mg/2 Ml Vial) 5 mg IV Q4H PRN PRN PRN Reason: Breakthrough Nausea/Vomiting Psyllium Hydrophilic Mucilloid (Psyllium 1 Packet) 1 packet PO DAILY PRN PRN PRN Reason: Constipation Senna/Docusate Sodium (Senna/Docusate Sodium 1 Tablet) 2 tablet PO BID PRN PRN PRN Reason: Constipation Sodium Chloride (0.9% Saline Lock 10 Ml Syringe) 10 - 40 ml IV UD PRN PRN Reason: SALINE FLUSH Last Admin: 11/25/20 05:06 Dose: 10 ml Documented by: Sodium Chloride (0.9% Saline Lock 10 Ml Syringe) 10 - 40 ml IV UD PRN PRN Reason: SALINE FLUSH Sucralfate (Sucralfate 1 Gm Tablet) 1 gm PO 1HR_ACHS [facility] Last Admin: 11/24/20 21:00 Dose: 1 gm Documented by: Throat Lozenges (Benzocaine/Menthol 1 Lozenge) 1 lozenge MUCOUS MEM Q2H PRN PRN PRN Reason: SORE THROAT Medical Necessity - Tobacco Use Smoking Status: Never smoker Tobacco Use: Non-smoker Assessment/Plan All Active Problems (Last Reviewed 11/12/20 @ 12:04 by Shannon Manning) Atrial fibrillation with RVR (Acute) Intractable nausea and vomiting (Acute) Esophageal dysmotility (Acute) GERD (gastroesophageal reflux disease) (Acute) Weight loss, unintentional (Acute) Dysphagia (Acute) Falls (Acute) Dehydration (Acute) Hypokalemia (Acute) Leukocytosis (Acute) Shortness of breath (Acute) I discussed with her that a surgical technique could be utilized to try to help supplement her nutrition. I described to her the benefit, risk, alternatives of placing a percutaneous endoscopic jejunostomy tube. Admittedly these are technically more challenging to place. It is possible even with a jejunostomy tube that she was to have enterogastric reflux. However this might supplement some of her nutritional needs. 1 option would be to proceed under monitored anesthesia care with a esophagogastroduodenoscopy with percutaneous endoscopic gastrostomy tube placement and then hopeful conversion to a jejunostomy extension. We could perform that for her tomorrow. Of course that is not mandatory. We could hold off and see how she performs with her speech therapy instruction and Reglan therapy. I do have concern however that the patient is aged 75 and is quite forgetful. Getting her prepared for her recent endoscopic procedures was quite challenging and that she did demonstrate some memory difficulties. I will discuss with primary care today as to how they would like to approach her care. Jeffry Rosario M.D., F.A.C.S.
[2020-11-25] MEDS: Sucralfate 1 GM Tablet PO ×4 (07:12→21:29)
[2020-11-25] MEDS: Aspirin 81 MG TAB.CHEW PO (07:13)
--- NOTE | 2020-11-25 07:24 | PN_ITS ---
Patient Problems: Active and Suspected Problems (Last Reviewed 11/12/20 @ 12:04 by Shannon Manning) Atrial fibrillation with RVR (Acute) Intractable nausea and vomiting (Acute) Esophageal dysmotility (Acute) GERD (gastroesophageal reflux disease) (Acute) Weight loss, unintentional (Acute) Dysphagia (Acute) Hypokalemia (Acute) Subjective: Patient with no acute events overnight per self and per nursing report. Patient had significantly improved modified barium swallow although still significant dysmotility evident with clearance per speech therapy to be initiated on significantly altered diet. Patient notes some improvement since initiation of low-dose Reglan. Discussed at length need to avoid focusing on attempted oral i ntake as patient begins to nearly gag prior to even attempt. In the room did distract patient while she was taking her pills and she was significantly more comfortable appearing taking them and did not have any emesis or nausea specifically falling. was also educated on this. Discussed at length plan to continue evaluation today and monitor oral intake and again review with Dr. Rosario/ Taylor Delcid. Given patient's excess 11/25/2020 likely would continue current plan with possible discharge 11/26/2020 with transition to oral Reglan and aggressive outpatient follow-up with esophageal dysmotility individual per Dr. Rosario input. patient has tolerated her altered diet Patient denies fevers, chills, worsening nausea or recurrent emesis, abdominal pain, chest pain or dyspnea. Objective: Physical Examination: General: awake, alert, oriented x 3 and cooperative, seated upright in the PCU bedside chair, NAD, witnessed taking pills and with distraction kept them down with no nausea or emesis. Skin: normal color, turgor, no icterus, cyanosis except notable diffuse staged ecchymoses to extremities. HEENT: AT/NC, EOMI, PERRLA, improved MMM. Lungs: Diminished breath sounds, greater bases, moderate effort, no rales, ronchi or wheezing. Heart: Regular rate and rhythm; no gallop, rub audible. Abdomen: soft, obese, NTTP, ND, normal BS. Extremities: no cyanosis or clubbing, see skin, mild ankle nonpitting edema, feet bilaterally more cool to touch but peripheral pulses intact, suspect chronic. Neurological: patient awake, alert, oriented x 3; cognitive function intact; pupils equally reactive to light and accomodation; cranial nerves II-XII grossly normal, moving all 4 extremities, no focal deficits, strength improving, mildly to moderately globally decreased secondary to acute presentation. Psychiatric: affect appears improved, notes has been keeping food/liquids down since day prior, more interactive and happy, no acute evidence of depressive or anxiety feelings. Vitals/I&O's: Vital Signs Temp Pulse Resp BP Pulse Ox 98.8 F 63 16 157/74 H 98 11/25/20 03:00 11/25/20 06:45 11/25/20 03:00 11/25/20 03:00 11/25/20 03:00 Oxygen Delivery Method Room Air Weight: 166 lb 0.129 oz Body Mass Index (BMI) 31.1 Intake and Output for Last 24 Hours 11/23/20 11/24/20 11/25/20 23:59 23:59 23:59 Intake Total 2358.33 / 2358.33 2086.67 / 2086.67 0 / 0 Balance 2358.33 / 2358.33 2086.67 / 2086.67 0 / 0 Laboratory Results 11/24/20 15:44: Sodium 147 H, Potassium 3.8, Chloride 117 H, Carbon Dioxide 23.0, Anion Gap 7, BUN 11, Creatinine 0.46 L, Estim Creat Clear Calc 33.84, Est GFR (MDRD) Af Amer 169, Est GFR (MDRD) Non-Af 140, BUN/Creatinine Ratio 23.9 H, Glucose 109 H, Calcium 8.4 L Current Medications Acetaminophen (Acetaminophen 325 Mg Tablet) 650 mg PO Q6H PRN PRN PRN Reason: Pain Score 1-10/Temp > 100.7 F Al Hydroxide/Mg Hydroxide (Mag Hydrox/Al Hydrox/Simeth 30 Ml Udc) 30 ml PO Q6H PRN PRN PRN Reason: Gastric Burning Amiodarone HCl (Amiodarone 200 Mg Tablet) 200 mg PO DAILY [facility] Last Admin: 11/24/20 08:30 Dose: 200 mg Documented by: Amlodipine Besylate (Amlodipine 5 Mg Tablet) 5 mg PO DAILY [facility] Last Admin: 11/24/20 08:37 Dose: 5 mg Documented by: Apixaban (Apixaban 5 Mg Tablet) 5 mg PO BID [facility] Last Admin: 11/24/20 21:00 Dose: 5 mg Documented by: Aspirin (Aspirin 81 Mg Tab.Chew) 81 mg PO DAILY@0800 [facility] Last Admin: 11/25/20 07:13 Dose: 81 mg Documented by: Guaifenesin (Guaifenesin 10 Ml Udc (200mg/10ml)) 20 ml PO Q4H PRN PRN PRN Reason: COUGH Hydralazine HCl (Hydralazine 20 Mg/Ml Vial) 10 mg IV Q4H PRN PRN PRN Reason: SBP > 160 Dextrose () 1,000 mls @ 100 mls/hr IV .Q10H [facility] Last Infusion: 11/24/20 23:55 Dose: 100 mls/hr Documented by: Losartan Potassium (Losartan Potassium 100 Mg Tablet) 100 mg PO DAILY [facility] Last Admin: 11/24/20 08:34 Dose: 100 mg Documented by: Magnesium Hydroxide (Magnesium Hydroxide 30 Ml Udc) 30 ml PO DAILY PRN PRN PRN Reason: Constipation Melatonin (Melatonin 3 Mg Tablet) 3 mg PO QHS PRN PRN PRN Reason: INSOMNIA Metoclopramide HCl (Metoclopramide 10 Mg/2 Ml Vial) 2.5 mg IV Q8 [facility] Last Admin: 11/25/20 05:06 Dose: 2.5 mg Documented by: Metoprolol Tartrate (Metoprolol Tartrate 25 Mg Tablet) 25 mg PO BID [facility] Last Admin: 11/24/20 21:00 Dose: 25 mg Documented by: Nitroglycerin (Nitroglycerin (Inpatient Use) 0.4 Mg Tab.Subl) 0.4 mg SUBLINGUAL Q5M PRN PRN Reason: CARDIAC/CHEST PAIN Ondansetron HCl (Ondansetron 4 Mg/2 Ml Vial) 4 mg IV Q8H PRN PRN PRN Reason: NAUSEA/VOMITING Pantoprazole Sodium (Pantoprazole Sodium 40 Mg Tablet) 40 mg PO BID [facility] Last Admin: 11/24/20 21:00 Dose: 40 mg Documented by: Potassium Chloride (Potassium Chloride 20 Meq Tablet) 20 meq PO BIDCM [facility] Last Admin: 11/25/20 07:13 Dose: 20 meq Documented by: Prochlorperazine Edisylate (Prochlorperazine 10 Mg/2 Ml Vial) 5 mg IV Q4H PRN PRN PRN Reason: Breakthrough Nausea/Vomiting Psyllium Hydrophilic Mucilloid (Psyllium 1 Packet) 1 packet PO DAILY PRN PRN PRN Reason: Constipation Senna/Docusate Sodium (Senna/Docusate Sodium 1 Tablet) 2 tablet PO BID PRN PRN PRN Reason: Constipation Sodium Chloride (0.9% Saline Lock 10 Ml Syringe) 10 - 40 ml IV UD PRN PRN Reason: SALINE FLUSH Last Admin: 11/25/20 05:06 Dose: 10 ml Documented by: Sodium Chloride (0.9% Saline Lock 10 Ml Syringe) 10 - 40 ml IV UD PRN PRN Reason: SALINE FLUSH Sucralfate (Sucralfate 1 Gm Tablet) 1 gm PO 1HR_ACHS [facility] Last Admin: 11/25/20 07:12 Dose: 1 gm Documented by: Throat Lozenges (Benzocaine/Menthol 1 Lozenge) 1 lozenge MUCOUS MEM Q2H PRN PRN PRN Reason: SORE THROAT STROKE Vital Signs/Narrative: Vital Signs Pulse 11/25/20 06:45 63 Medical Necessity - Tobacco Use Smoking Status: Never smoker Tobacco Use: Non-smoker Assessment/Plan All Active Problems (Last Reviewed 11/12/20 @ 12:04 by Shannon Manning) Atrial fibrillation with RVR (Acute) Intractable nausea and vomiting (Acute) Esophageal dysmotility (Acute) GERD (gastroesophageal reflux disease) (Acute) Weight loss, unintentional (Acute) Dysphagia (Acute) Falls (Acute) Dehydration (Acute) Hypokalemia (Acute) Leukocytosis (Acute) Shortness of breath (Acute) The patient is a 75 y/o F w/ PMHx: Chronic back pain with spinal stenosis, PAF on Eliquis, HTN, OA, Vitamin D deficiency, recent 10/03 admissions for PAF with RVR and Oropharyngeal dysphagia as well as PIERRE who now re-presents to the [facility] ED on 11/23/20 with history of ongoing persistently worsening weakness, fatigue, weight loss with nausea and emesis with apparently an unintentional weight loss of 50 pounds since August of the year prior with upcoming gastric emptying test per her report however given her significant weakness with gait and debility and inability to ambulate in her home. 1. Ongoing oropharyngeal dysphagia with severe dysmotility with nausea and emesis with associated severe protein calorie malnutrition with significant weight loss and poor oral intake as well as electrolyte disturbances associated: Noted 11/18/2020 high-resolution esophageal motility study with impression noting a very weak swallow mechanism and contraction with normal LES relaxation tone and good clearance despite 90% of the swelling being read as ineffective. 11/10/2020 upper endoscopy with noted reflux esophagitis, small hiatal hernia, widely patent schatzki ring, erythematous mucosa of the stomach, bilious gastric fluid with evidence chronic duodenitis with discharge on sucralfate, continue PPI and pending pathology at that time with planned outpatient gastric emptying study. Patient admitted to the PCU as noted for #2, since resolved with electrolyte correction likely, patient initiated on IV low-dose Reglan scheduled 11/24/2020 and has been ongoing, attempted 11/24/2020 gastric emptying study failed secondary to inability to get the old male down in the specific timeframe, per speech recommendation repeated MBS 11/24/2020 which per their report had improved with initiation of very specific altered diet per speech recommendation 11/24/2020 evening. Patient has since been able to keep food down with very specific interventions per speech therapy recommendations. Dr. Rosario consulted and following. If patient continues to be able to maintain oral intake will transition Reglan to oral regimen and continue scheduled format, continue high-dose PPI as well as now scheduled Maalox to assure continued improvement then would plan possible discharge 11/26/2020 with strict oral regimen intake plan for nutrition and aggressive follow-up with specialist for esophageal dysmotility per general surgery recommendation. 2. Paroxsymal atrial fibrillation with recurrent RVR, Converted: EKG in ED w/ atrial fibrillation w/ RVR, initial EKG sinus rhythm. Patient administered labetalol in ED. patient maintained on telemetry, unremarkable cycled cardiac enzymes, mag 2.1, TSH as noted low with elevated FT4 with ongoing outpatient work-up, continue to supplement and correct her potassium, continue home eliquis regimen, continue home metoprolol dosing with noted successful conversion, recent ECHO 09/17/2020 with normal LV systolic function, EF 65%, mildly enlarged LA, trivial MVI, mild TBI, trivial PVI, RVSP 37 mmHg. Has remained in sinus rhythm since admission likely associated with electrolyte correction. 3. Hypokalemia: Likely secondary to poor intake and GI losses, admission K+ 2.6, magnesium 2.1, supplementation given in the ED, repeat 11/23/2020 evening BMP with improvement to 3.3 however 11/24/2019 CMP with potassium 2.8, patient given additional oral supplementation and continued on twice daily dosing, 11/24/2020 r epeat K+ 3.8, resolved, continue to closely trend. 4. Primary Hyperthyroidism: TSH 0.26, free T4 mildly elevated 2.48 consistent with primary hyperthyroidism with noted follow-up planned with Dr. Mooney for reportedly thyroid nodules. Noted 11/15/2020 bilateral thyroid nodule FNA both noted to be consistent with benign colloid/follicular nodules 1 with specifically cystic change. Do not see any evidence that radioactive iodine uptake scanning was performed. Will need to continue planned evaluation with Dr. Mooney. 5. Debility, failure to thrive in adult: Secondary to significant nutritional deficits, ongoing issues with oropharyngeal dysphagia as noted and obvious electrolyte disturbances, continue to treat as noted above, PT/OT/case management consultations for discharge, maintain on fall precautions. 6. Hypernatremia with hypoglycemia: Patient with glucose 60 11/24/20 AM, Na increased to 148, initiated on D5W and continue to closely monitor BMP, 11/24/2020 BMP with sodium 147, glucose 109, oral intake has been initiated and patient is improving, will continue closely monitor. 7. Hypertension: Continue home regimen including metoprolol as noted, losartan, amlodipine with hold parameters, PRN hydralazine. 8. GERD with history of gastritis: Continue PPI as well as Carafate regimen. As noted will add scheduled low-dose Mylanta as well and continue to closely monitor. 9. Chronic back pain with spinal stenosis: Complicates presentation and debility, maintain on fall precautions, therapies consulted as noted, positional changes. 10. DVT prophylaxis: SCDs, continue home apixaban regimen. 11. CODE status: Full Code status. Inpatient E&M: 08029 Subs Hosp L2
[2020-11-25] MEDS: Pantoprazole Sodium 40 MG Tablet PO ×2 (09:10→21:30)
[2020-11-25] MEDS: Losartan Potassium 100 MG Tablet PO (09:10)
[2020-11-25] MEDS: Amiodarone 200 MG Tablet PO (09:10)
[2020-11-25] MEDS: amLODIPine 5 MG Tablet PO (09:11)
[2020-11-25] MEDS: Metoprolol Tartrate 25 MG Tablet PO ×2 (09:11→21:31)
[2020-11-25] MEDS: APIXABAN 5 MG TABLET PO ×2 (10:11→21:29)
[2020-11-25] MEDS: Mag Hydrox/Al Hydrox/Simeth 30 ML UDC 15 ML PO ×2 (16:24→23:55)
[2020-11-26 03:00] VITALS: BP 163/74; PULSE 65; PULSE 69; RESP 14; TEMP 36.1; O2SAT 98
--- NOTE | 2020-11-26 06:09 | PN.SURG_ITS ---
Patient Problems: Active and Suspected Problems (Last Reviewed 11/12/20 @ 12:04 by Shannon Manning) Atrial fibrillation with RVR (Acute) Intractable nausea and vomiting (Acute) Esophageal dysmotility (Acute) GERD (gastroesophageal reflux disease) (Acute) Weight loss, unintentional (Acute) Dysphagia (Acute) Hypokalemia (Acute) Subjective: Patient has no specific complaints today. She claims that every morning she wakes up with dry heaves and that was no different today. She states that she was able to take a small amount of supper and hold it down. She denies abdominal pain. - Physical Exam Vitals/I&O's: Vital Signs Temp Pulse Resp BP Pulse Ox 97.0 F L 69 14 163/74 H 98 11/26/20 03:00 11/26/20 03:00 11/26/20 03:00 11/26/20 03:00 11/26/20 03:00 Oxygen Delivery Method Room Air Weight: 166 lb 7.184 oz Body Mass Index (BMI) 31.1 Intake and Output for Last 24 Hours 11/24/20 11/25/20 11/26/20 23:59 23:59 23:59 Intake Total 2086.67 / 2086.67 2135 / 2435 1150 / 1150 Balance 2086.67 / 2086.67 213 / 2435 1150 / 1150 Current Medications Acetaminophen (Acetaminophen 325 Mg Tablet) 650 mg PO Q6H PRN PRN PRN Reason: Pain Score 1-10/Temp > 100.7 F Al Hydroxide/Mg Hydroxide (Mag Hydrox/Al Hydrox/Simeth 30 Ml Udc) 15 ml PO Q8H [facility] Last Admin: 11/25/20 23:55 Dose: 15 ml Documented by: Amiodarone HCl (Amiodarone 200 Mg Tablet) 200 mg PO DAILY [facility] Last Admin: 11/25/20 09:10 Dose: 200 mg Documented by: Amlodipine Besylate (Amlodipine 5 Mg Tablet) 5 mg PO DAILY [facility] Last Admin: 11/25/20 09:11 Dose: 5 mg Documented by: Apixaban (Apixaban 5 Mg Tablet) 5 mg PO BID [facility] Last Admin: 11/25/20 21:29 Dose: 5 mg Documented by: Aspirin (Aspirin 81 Mg Tab.Chew) 81 mg PO DAILY@0800 [facility] Last Admin: 11/25/20 07:13 Dose: 81 mg Documented by: Guaifenesin (Guaifenesin 10 Ml Udc (200mg/10ml)) 20 ml PO Q4H PRN PRN PRN Reason: COUGH Hydralazine HCl (Hydralazine 20 Mg/Ml Vial) 10 mg IV Q4H PRN PRN PRN Reason: SBP > 160 Dextrose () 1,000 mls @ 100 mls/hr IV .Q10H [facility] Last Admin: 11/26/20 03:41 Dose: 100 mls/hr Documented by: Losartan Potassium (Losartan Potassium 100 Mg Tablet) 100 mg PO DAILY [facility] Last Admin: 11/25/20 09:10 Dose: 100 mg Documented by: Magnesium Hydroxide (Magnesium Hydroxide 30 Ml Udc) 30 ml PO DAILY PRN PRN PRN Reason: Constipation Melatonin (Melatonin 3 Mg Tablet) 3 mg PO QHS PRN PRN PRN Reason: INSOMNIA Metoclopramide HCl (Metoclopramide 10 Mg/2 Ml Vial) 2.5 mg IV Q8 [facility] Last Admin: 11/25/20 21:30 Dose: 2.5 mg Documented by: Metoprolol Tartrate (Metoprolol Tartrate 25 Mg Tablet) 25 mg PO BID [facility] Last Admin: 11/25/20 21:31 Dose: 25 mg Documented by: Nitroglycerin (Nitroglycerin (Inpatient Use) 0.4 Mg Tab.Subl) 0.4 mg SUBLINGUAL Q5M PRN PRN Reason: CARDIAC/CHEST PAIN Ondansetron HCl (Ondansetron 4 Mg/2 Ml Vial) 4 mg IV Q8H PRN PRN PRN Reason: NAUSEA/VOMITING Pantoprazole Sodium (Pantoprazole Sodium 40 Mg Tablet) 40 mg PO BID [facility] Last Admin: 11/25/20 21:30 Dose: 40 mg Documented by: Potassium Chloride ([facility] 20 [facility]) [facility] Last Admin: 11/25/20 16:19 Dose: 20 meq Documented by: Prochlorperazine Edisylate (Prochlorperazine 10 Mg/2 Ml Vial) 5 mg IV Q4H PRN PRN PRN Reason: Breakthrough Nausea/Vomiting Psyllium Hydrophilic Mucilloid (Psyllium 1 Packet) 1 packet PO DAILY PRN PRN PRN Reason: Constipation Senna/Docusate Sodium (Senna/Docusate Sodium 1 Tablet) 2 tablet PO BID PRN PRN PRN Reason: Constipation Sodium Chloride (0.9% Saline Lock 10 Ml Syringe) 10 - 40 ml IV UD PRN PRN Reason: SALINE FLUSH Last Admin: 11/25/20 13:16 Dose: 10 ml Documented by: Sodium Chloride (0.9% Saline Lock 10 Ml Syringe) 10 - 40 ml IV UD PRN PRN Reason: SALINE FLUSH Sucralfate (Sucralfate 1 Gm Tablet) 1 gm PO 1HR_ACHS [facility] Last Admin: 11/25/20 21:29 Dose: 1 gm Documented by: Throat Lozenges (Benzocaine/Menthol 1 Lozenge) 1 lozenge MUCOUS MEM Q2H PRN PRN PRN Reason: SORE THROAT Medical Necessity - Tobacco Use Smoking Status: Never smoker Tobacco Use: Non-smoker Assessment/Plan All Active Problems (Last Reviewed 11/12/20 @ 12:04 by Shannon Manning) Atrial fibrillation with RVR (Acute) Intractable nausea and vomiting (Acute) Esophageal dysmotility (Acute) GERD (gastroesophageal reflux disease) (Acute) Weight loss, unintentional (Acute) Dysphagia (Acute) Falls (Acute) Dehydration (Acute) Hypokalemia (Acute) Leukocytosis (Acute) Shortness of breath (Acute) Patient appears to be making progress with her the prescribed dietary regimen and metoclopramide. She has an office appointment scheduled next week on Sunday the . At this point we will hold off on any surgical intervention with PEJ placement but her weight nutrition will need to be followed closely because of the losses that she has had already. I will catch up with her next at her office appointment. Jeffry Rosario M.D., F.A.C.S.
[2020-11-26] MEDS: Metoclopramide 10 MG/2 ML Vial 2.5 MG IV (06:11)
[2020-11-26 07:00] VITALS: PULSE 70; PULSE 76
[2020-11-26 07:36] VITALS: O2SAT 94
[2020-11-26 08:19] LABS: Absolute Lymphocyte Count 1.41 X10^3/uL (0.83-4.51); Absolute Neutrophil Count 3.1 X10^3/uL (2.0-7.7); Basophil# 0.04 X10^3/uL; Basophil% 0.8 % (0-1); Eosinophil# 0.06 X10^3/uL; Eosinophils% 1.2 % (0-5); Hematocrit 35.5 % (37-47); Hemoglobin 11.8 g/dL (12.0-15.0); Lymphocyte # 1.41 X10^3/ul (4.0); Lymphocyte % 27.6 % (19-41); Mean Corp Hgb Conc 33.2 g/dL (32-36); Mean Corpuscular Volume 93.2 fL (81-99); Monocyte# 0.38 X10^3/uL; Monocyte% 7.4 % (0-10); NRBC Flagged by Analyzer 0.4 % (0-5); Neutrophil % 60.7 % (47-70); Platelet Count 176 K/mm3 (150-450); RBC Distribution Width CV 15.5 % (11.6-14.6); Red Blood Count 3.81 M/mm3 (4.2-5.4); White Blood Count 5.1 K/mm3 (4.4-11.0)
[2020-11-26 08:45] LABS: ALB/GLOB Ratio 0.9 RATIO (0.9-2.4); AST(SGOT) 23 U/L (15-37); Alanine Aminotransfer ALT/SGPT 39 U/L (13-56); Albumin, Serum 2.4 g/dL (3.2-5.0); Alkaline Phosphatase 44 U/L (45-117); Anion Gap 7 (5-15); BUN 4 mg/dL (7-18); BUN/Creat Ratio 7.2 RATIO (10-20); Calcium,Total 8.3 mg/dL (8.5-10.1); Chloride 105 mmol/L (98-107); Creatinine, Serum 0.55 mg/dL (0.55-1.02); EST Glomerular Filtration Rate 113 mL/min (>60); Est Glom Filt Rate - Afr Amer 137 mL/min (>60); Estimated Creatinine Clearance 33.84 ml/min; Globulin 2.7 g/dL (2.2-4.2); Glucose 101 mg/dL (74-106); Potassium 3.1 mmol/L (3.5-5.1); Protein, Total 5.1 g/dL (6.4-8.2); Sodium Level 138 mmol/L (136-145)
[2020-11-26 09:00] VITALS: BP 134/86; PULSE 100; RESP 18; TEMP 36.4; O2SAT 100
[2020-11-26 09:08] VITALS: BP 134/86; PULSE 100
[2020-11-26] MEDS: Metoprolol Tartrate 25 MG Tablet PO (09:08)
[2020-11-26] MEDS: Losartan Potassium 100 MG Tablet PO (09:08)
[2020-11-26] MEDS: Aspirin 81 MG TAB.CHEW PO (09:08)
[2020-11-26] MEDS: Amiodarone 200 MG Tablet PO (09:08)
[2020-11-26] MEDS: APIXABAN 5 MG TABLET PO (09:09)
[2020-11-26] MEDS: amLODIPine 5 MG Tablet PO (09:09)
[2020-11-26] MEDS: Pantoprazole Sodium 40 MG Tablet PO (09:09)
[2020-11-26] MEDS: Ondansetron 4 MG/2 ML Vial IV (09:22)
[2020-11-26] MEDS: Mag Hydrox/Al Hydrox/Simeth 30 ML UDC 15 ML PO (09:30)
--- NOTE | 2020-11-26 10:09 | CASEMGMT ---
Addendum entered by Yessy Salcido 11/26/20 14:33: Call back to Terrie at [facility] and she states they can take pt at this time and she is aware that pt is being discharged at this time. Pt updated on all, voices understanding. Pt voices no further questions/concerns/needs at this time. Antonette SHELDON CM Original Note: Speech therapy is recommending [facility] speech at this time and pt was also interested in PT/OT at home. This RN CM to room with list of local in-network [facility] agencies and after perusing the list with Medicare ratings, pt chose [facility] at this time. Pt states she would like to go home with [facility] at this time. Pt is A/Ox4 at this time and on room air. Call to Terrie at [facility] with referral for PT/OT/ST at this time and order placed in [facility] for same at this time. CM to follow for any further discharge planning/needs. Antonette SHELDON CM
[2020-11-26] MEDS: Sucralfate 1 GM Tablet PO (11:18)
[2020-11-26] MEDS: Potassium Chloride Oral Tablet 20 MEQ 40 MEQ PO (11:18)
[2020-11-26] MEDS: Metoclopramide 5 MG TABLET PO (11:20)
--- NOTE | 2020-11-26 11:56 | DCINST_ITS ---
- Discharge Diagnoses Current Active Problems: Current Active and Chronic Problems (Last Reviewed 11/12/20 @ 12:04 by Shannon Manning) 1. Ongoing oropharyngeal dysphagia with severe dysmotility with nausea and emesis with associated severe protein calorie malnutrition with significant weight loss and poor oral intake as well as electrolyte disturbances associated possibly complicated by gastroparesis component 2. Paroxsymal atrial fibrillation with recurrent RVR, Converted 3. Hypokalemia, Likely secondary to poor intake and GI losses 4. Primary Hyperthyroidism (TSH 0.26, free T4 mildly elevated 2.48 consistent with primary hyperthyroidism following w/ Dr. Mooney) 5. Debility, failure to thrive in adult 6. Hypernatremia with hypoglycemia, iatrogenic 7. Hypertension 8. GERD with history of gastritis 9. Chronic back pain with spinal stenosis You will use the following diet at home:: Regular - Per nutrition recommendation of intake: 2968-6170 calories/day (RMRx1.3) 62-72 g protein/day (1g/kg) 1800mL fluid/day (1mL/calorie) Recommend start of 10-15 calories/kg/day for first 1- 3 days following your discharge with slow advancement, Other - Please use small bites, small sips, aggressive chin tucking, sit upright with hip flexion 90 degrees and must remain sitting upright for 30 minutes after oral intake with strongly recommended one-to-one close supervision while having oral intake. Your food should be the consistency of: Mechanical soft (ground) - Mechanical minced/moist. Your liquids should be the consistency of: Regular/Thin Discharge Activity: - - Encourage routine activity, maintain fall precautions. May resume sexual activity in: No Restrictions Weight Bearing Status: Weight bearing as tolerated Call your doctor if you observe: Fever of 101 or Higher, Inability to urinate, Shortness of breath, Dizziness, Fainting spells, Chest pain, Uncontrolled pain, - - Recurrent issues with oral intake, increased nausea and emesis or difficulty keeping your medications down. Instructions: Gastroparesis, What Is GERD?, Lifestyle Changes for Controlling GERD, Medications for GERD, Tips to Control Acid Reflux Additional Instructions: Please have follow-up basic metabolic panel with your primary care physician at follow-up in the next 2-3 days to assure continued electrolyte improvement and assure no further adjustment needs for your potassium supplementation. Allergies/Adverse Reactions: Allergies hydrocodone [From Vicodin] Allergy (Verified 11/23/20 08:13) Other severe headache Medications to take at Discharge Aspirin [Aspirin, Baby] 81 mg PO DAILY@0800 tab.chew 09/19/20 amiodarone 200 mg tablet 200 mg PO DAILY #90 tab 10/13/20 amlodipine 5 mg tablet 5 mg PO DAILY #90 tab 10/18/20 apixaban 5 mg tablet 5 mg PO BID #180 tab 10/18/20 metoprolol tartrate 25 mg tablet 25 mg PO BID #180 tab 10/18/20 Sucralfate [Carafate] 1 gm PO 4X/DAY #120 tab 11/10/20 losartan 100 mg tablet 100 mg PO DAILY #90 tab 11/17/20 Mag Hydrox/Al Hydrox/Simeth [Mylanta II] 15 ml PO Q8H PRN #473 mls 11/26/20 Metoclopramide [Reglan] 5 mg PO ACHS #120 tab 11/26/20 Ondansetron [Zofran Odt] 4 mg PO Q8H PRN PRN #30 tab 11/26/20 Pantoprazole Sodium [Protonix] 40 mg PO BID #60 tab 11/26/20 Potassium Chloride Oral Tablet [K-Dur] 20 meq PO BIDCM #60 tab 11/26/20 The following prescriptions were given: Potassium Chloride Oral Tablet [K-Dur] 20 meq PO BIDCM #60 tab Transmission Status: [facility] Mag Hydrox/Al Hydrox/Simeth [Mylanta II] 15 ml PO Q8H PRN #473 mls PRN Reason: Dyspepsia Transmission Status: Pending to [facility] Pantoprazole Sodium [Protonix] 40 mg PO BID #60 tab Transmission Status: Pending to [facility] Metoclopramide [Reglan] 5 mg PO ACHS #120 tab Transmission Status: Pending to [facility] Ondansetron [Zofran Odt] 4 mg PO Q8H PRN PRN #30 tab PRN Reason: Nausea Transmission Status: [facility] Primary Care Physician: Steven Tubbs MD [Primary Care Provider] - Please follow up with your Primary Care Physician in: Follow-up within 2-3 days of discharge to review admission. Test Results: Test results from this visit will be discussed in further detail at your follow- up appointment, if applicable. Please Follow Up With: Jeffry Rosario MD When: Follow-up this coming week 12/01/20, already in place. Please Follow Up With: Abiel Mooney MD When: Recommend earlier eval for Primary hyperthyroidism, prefer 1-2 weeks. Proposed Discharge Date: 11/26/20
--- NOTE | 2020-11-26 12:07 | PCM.DC.SUM ---
Discharge Date and Diagnosis - Problem List Patient Problems: Active and Suspected Problems (Last Reviewed 11/12/20 @ 12:04 by Shannon Manning) Atrial fibrillation with RVR (Acute) Intractable nausea and vomiting (Acute) Esophageal dysmotility (Acute) GERD (gastroesophageal reflux disease) (Acute) Weight loss, unintentional (Acute) Dysphagia (Acute) Hypokalemia (Acute) Date of Admission: 11/23/20 Date of Discharge: 11/26/20 - Primary Discharge Diagnosis Acute Problems: Active Problems (Last Reviewed 11/12/20 @ 12:04 by Shannon Manning) 1. Ongoing oropharyngeal dysphagia with severe dysmotility with nausea and emesis with associated severe protein calorie malnutrition with significant weight loss and poor oral intake as well as electrolyte disturbances associated possibly complicated by gastroparesis component 2. Paroxsymal atrial fibrillation with recurrent RVR, Converted 3. Hypokalemia, Likely secondary to poor intake and GI losses 4. Primary Hyperthyroidism (TSH 0.26, free T4 mildly elevated 2.48 consistent with primary hyperthyroidism following w/ Dr. Mooney) 5. Debility, failure to thrive in adult 6. Hypernatremia with hypoglycemia, iatrogenic 7. Hypertension 8. GERD with history of gastritis 9. Chronic back pain with spinal stenosis - Secondary Discharge Diagnosis Chronic Problems: Chronic Problems (Last Reviewed 11/12/20 @ 12:04 by Shannon Manning) Coronary artery disease (Chronic) Rheumatoid arthritis (Chronic) Multiple thyroid nodules (Chronic) HTN (hypertension) (Chronic) Atrial fibrillation and flutter (Chronic) Spinal stenosis (Chronic) Osteoarthritis (Chronic) Hospital Course and Treatment Dr. Rosario General Surgery Operations: None Procedures: EKG Summary of Care Provided: The patient is a 75 y/o F w/ PMHx: Chronic back pain with spinal stenosis, PAF on Eliquis, HTN, OA, Vitamin D deficiency, recent 10/03 admissions for PAF with RVR and Oropharyngeal dysphagia as well as PIERRE who now re-presented to the [facility] ED on 11/23/20 with history of ongoing persistently worsening weakness, fatigue, weight loss with nausea and emesis with apparently an unintentional weight loss of 50 pounds since August of the year prior with upcoming gastric emptying test per her report however given her significant weakness with gait and debility and inability to ambulate in her home. Noted 11/18/2020 high-resolution esophageal motility study with impression noting a very weak swallow mechanism and contraction with normal LES relaxation tone and good clearance despite 90% of the swelling being read as ineffective. 11/10/2020 upper endoscopy with noted reflux esophagitis, small hiatal hernia, widely patent schatzki ring, erythematous mucosa of the stomach, bilious gastric fluid with evidence chronic duodenitis with discharge on sucralfate, continue PPI and pending pathology at that time with planned outpatient gastric emptying study. Patient admitted to the PCU as noted for #2, since resolved with electrolyte correction likely, patient initiated on IV low-dose Reglan scheduled 11/24/2020, attempted 11/24/2020 gastric emptying study failed secondary to inability to get the old male down in the specific timeframe, per speech recommendation repeated MBS 11/24/2020 which per their report had improved with initiation of very specific altered diet per speech recommendation 11/24/2020 evening. Patient since primarily keep food down with very specific interventions per speech therapy recommendations. Dr. Rosario consulted and followed during admission and agreed with reglan and given oral intact initiation with success deferred any placement of supplemental feeding tube. Patient 11/26/20 transitioned to oral reglan with ongoing improved oral intake. Patient continued on high dose PPI. Nutrition consulted and discussed plan at length and recommendations with family with upon discharge requested [id number] calories/day (RMRx1.3) 62-72 g protein/day (1g/kg) 1800mL fluid/day (1mL/calorie) with recommended start of 10-15 calories/kg/day for first 1-3 days following discharge with slow advancement to avoid refeeding syndrome. During admission, patient with episode paroxsymal atrial fibrillation with recurrent RVR w/ EKG in ED w/ atrial fibrillation w/ RVR, initial EKG sinus rhythm. Patient administered labetalol in ED. Patient maintained on telemetry, unremarkable cycled cardiac enzymes, mag 2.1, TSH as noted low with elevated FT4 with ongoing outpatient work-up, continued electrolyte corrections and home metoprolol regimen with conversion to SR. ECHO 09/17/2020 with normal LV systolic function, EF 65%, mildly enlarged LA, trivial MVI, mild TBI, trivial PVI, RVSP 37 mmHg. Has remained in sinus rhythm since admission likely associated with electrolyte correction. TSH 0.26, free T4 mildly elevated 2.48 consistent with primary hyperthyroidism with noted follow-up planned with Dr. Mooney for reportedly thyroid nodules. Noted 11/15/2020 bilateral thyroid nodule FNA both noted to be consistent with benign colloid/follicular nodules 1 with specifically cystic change. Did not see any evidence that radioactive iodine uptake scanning was performed therefore requested earlier follow-up with Dr. Mooney. Patient with hypernatremia upon presentation, likely secondary to specifics of her limited oral intake upon her presentation, improved with D5W administration. Requested close early PCP follow-up with repeat BMP to re-assess electrolytes. Given clinical improvement, maintained oral intake more successfully, patient discharged to home with PT/OT/ST with close PCP, surgery re-evaluation. DAY OF DISCHARGE PROGRESS NOTE: Subjective: Patient without acute event overnight per self and nursing report except one episode of emesis however this was significantly improved and patient reports she has been tolerating foods, more interactive, mood is improved and she is feeling less anxious with oral intake. She did note trying to take scheduled Mylanta as well given the severity of her reflux was difficult as this medication was occasionally given with her food which made excessive oral intake difficult. Patient does report that nausea has also improved. Patient denies fever, chills, abdominal pain, chest pain or dyspnea. Patient agreeable to discharge to home with close follow-up with Dr. Rosario, continued Reglan medication as well as as needed Zofran, very specific oriented goals with nutrition, pharmacy assistance with timing of her medications to avoid having to take 70 pills in one setting. Patient will be discharged with follow-up with primary care physician within 3-5 days in addition to follow-up with Dr. Rosario this coming week. Also, pharmacy assisted patient and her spouse with set up for Covid vaccination. Also requested the patient have earlier follow-up with Dr. Mooney given primary hypothyroidism which she is following with her. Objective: T 97.6, heart rate 76, BP 134/86, respiratory rate 18, and a percent room air. Physical Examination: General: awake, alert, oriented x 3 and cooperative, seated upright in the PCU bed, eating pudding, mood greatly improved, seems less reticent and anxious with her oral intake. Skin: normal color, improved turgor, no icterus, no cyanosis except notable diffuse staged ecchymoses to extremities. HEENT: AT/NC, EOMI, PERRLA, MMM. Lungs: Diminished breath sounds, greater bases, moderate effort, no rales, ronchi or wheezing. Heart: Regular rate and rhythm; no gallop, rub audible. Abdomen: soft, obese, NTTP, ND, normal BS. Extremities: no cyanosis or clubbing, see skin, mild ankle nonpitting edema, feet bilaterally more cool to touch but peripheral pulses intact, suspect chronic. Neurological: patient awake, alert, oriented x 3; cognitive function intact; pupils equally reactive to light and accomodation; cranial nerves II-XII grossly normal, moving all 4 extremities, no focal deficits, strength improving, mildly to moderately globally decreased secondary to acute presentation. Psychiatric: affect appears improved, no acute evidence of depressive or anxiety feelings. Assessment and Plan: Please see hospital summary above. Patient Problems: Active and Suspected Problems (Last Reviewed 11/12/20 @ 12:04 by Shannon Manning) Atrial fibrillation with RVR (Acute) Intractable nausea and vomiting (Acute) Esophageal dysmotility (Acute) GERD (gastroesophageal reflux disease) (Acute) Weight loss, unintentional (Acute) Dysphagia (Acute) Hypokalemia (Acute) - Physical Exam Vitals/I&O's: Vital Signs Temp Pulse Resp BP Pulse Ox 97.6 F L 100 18 134/86 H 100 11/26/20 09:00 11/26/20 09:08 11/26/20 09:00 11/26/20 09:08 11/26/20 09:00 Oxygen Delivery Method Room Air Weight: 166 lb 7.184 oz Body Mass Index (BMI) 31.1 Intake and Output for Last 24 Hours 11/24/20 11/25/20 11/26/20 23:59 23:59 23:59 Intake Total 6.67 / 208.67 2135 / 2435 1250 / 1250 Balance 2085.67 / 2085.67 2135 / 2435 1250 / 1250 Laboratory Results 11/26/20 07:54: WBC 5.1, RBC 3.81 L, Hgb 11.8 L, Hct 35.5 L, MCV 93.2, MCH 31.0, MCHC 33.2 D, RDW Std Deviation 51.0 H, RDW Coeff of Eladia 15.5 H, Plt Count 176, MPV 9.0, Immature Gran % (Auto) 2.300 H, Neut % (Auto) 60.7, Lymph % (Auto) 27.6, [place] % (Auto) 7.4, Eos % (Auto) 1.2, Baso % (Auto) 0.8, Absolute Neuts (auto) 3.1, Absolute Lymphs (auto) 1.41, Nucleated RBC % 0.4 11/26/20 07:54: Sodium 138, Potassium 3.1 L, Chloride 105, Carbon Dioxide 26.0, Anion Gap 7, BUN 4 L, Creatinine 0.55, Estim Creat Clear Calc 33.84, Est GFR (MDRD) Af Amer 137, Est GFR (MDRD) Non-Af 113, BUN/Creatinine Ratio 7.2 L, Glucose 101, Calcium 8.3 L, Total Bilirubin 1.20 H, AST 23, ALT 39, Alkaline Phosphatase 44 L, Total Protein 5.1 L, Albumin 2.4 L, Globulin 2.7, Albumin/Globulin Ratio 0.9 Current Medications Acetaminophen (Acetaminophen 325 Mg Tablet) 650 mg PO Q6H PRN PRN PRN Reason: Pain Score 1-10/Temp > 100.7 F Al Hydroxide/Mg Hydroxide (Mag Hydrox/Al Hydrox/Simeth 30 Ml Udc) 15 ml PO Q8H [facility] Last Admin: 11/26/20 09:30 Dose: 15 ml Documented by: Amiodarone HCl (Amiodarone 200 Mg Tablet) 200 mg PO DAILY [facility] Last Admin: 11/26/20 09:08 Dose: 200 mg Documented by: Amlodipine Besylate (Amlodipine 5 Mg Tablet) 5 mg PO DAILY [facility] Last Admin: 11/26/20 09:09 Dose: 5 mg Documented by: Apixaban (Apixaban 5 Mg Tablet) 5 mg PO BID [facility] Last Admin: 11/26/20 09:09 Dose: 5 mg Documented by: Aspirin (Aspirin 81 Mg Tab.Chew) 81 mg PO DAILY@0800 [facility] Last Admin: 11/26/20 09:08 Dose: 81 mg Documented by: Guaifenesin (Guaifenesin 10 Ml Udc (200mg/10ml)) 20 ml PO Q4H PRN PRN PRN Reason: COUGH Hydralazine HCl (Hydralazine 20 Mg/Ml Vial) 10 mg IV Q4H PRN PRN PRN Reason: SBP > 160 Dextrose () 1,000 mls @ 100 mls/hr IV .Q10H [facility] Last Admin: 11/26/20 03:41 Dose: 100 mls/hr Documented by: Losartan Potassium (Losartan Potassium 100 Mg Tablet) 100 mg PO DAILY [facility] Last Admin: 11/26/20 09:08 Dose: 100 mg Documented by: Magnesium Hydroxide (Magnesium Hydroxide 30 Ml Udc) 30 ml PO DAILY PRN PRN PRN Reason: Constipation Melatonin (Melatonin 3 Mg Tablet) 3 mg PO QHS PRN PRN PRN Reason: INSOMNIA Metoclopramide HCl (Metoclopramide 5 Mg Tablet) 5 mg PO ACHS [facility] Last Admin: 11/26/20 11:20 Dose: 5 mg Documented by: Metoprolol Tartrate (Metoprolol Tartrate 25 Mg Tablet) 25 mg PO BID [facility] Last Admin: 11/26/20 09:08 Dose: 25 mg Documented by: Nitroglycerin (Nitroglycerin (Inpatient Use) 0.4 Mg Tab.Subl) 0.4 mg SUBLINGUAL Q5M PRN PRN Reason: CARDIAC/CHEST PAIN Ondansetron HCl (Ondansetron 4 Mg/2 Ml Vial) 4 mg IV Q8H PRN PRN PRN Reason: NAUSEA/VOMITING Last Admin: 11/26/20 09:22 Dose: 4 mg Documented by: Pantoprazole Sodium (Pantoprazole Sodium 40 Mg Tablet) 40 mg PO BID [facility] Last Admin: 11/26/20 09:09 Dose: 40 mg Documented by: Potassium Chloride (Potassium Ch[facility] 20 [facility]eq [facility]t) [facility] Last Admin: 11/26/20 09:08 Dose: 20 meq Documented by: Prochlorperazine Edisylate (Prochlorperazine 10 Mg/2 Ml Vial) 5 mg IV Q4H PRN PRN PRN Reason: Breakthrough Nausea/Vomiting Psyllium Hydrophilic Mucilloid (Psyllium 1 Packet) 1 packet PO DAILY PRN PRN PRN Reason: Constipation Senna/Docusate Sodium (Senna/Docusate Sodium 1 Tablet) 2 tablet PO BID PRN PRN PRN Reason: Constipation Sodium Chloride (0.9% Saline Lock 10 Ml Syringe) 10 - 40 ml IV UD PRN PRN Reason: SALINE FLUSH Last Admin: 11/25/20 13:16 Dose: 10 ml Documented by: Sodium Chloride (0.9% Saline Lock 10 Ml Syringe) 10 - 40 ml IV UD PRN PRN Reason: SALINE FLUSH Sucralfate (Sucralfate 1 Gm Tablet) 1 gm PO 1HR_ACHS CYNDEE Last Admin: 11/26/20 11:18 Dose: 1 gm Documented by: Throat Lozenges (Benzocaine/Menthol 1 Lozenge) 1 lozenge MUCOUS MEM Q2H PRN PRN PRN Reason: SORE THROAT Discharge Activity: - - Encourage routine activity, maintain fall precautions. May resume sexual activity in: No Restrictions Weight Bearing Status: Weight bearing as tolerated Call your doctor if you observe: Fever of 101 or Higher, Inability to urinate, Shortness of breath, Dizziness, Fainting spells, Chest pain, Uncontrolled pain, - - Recurrent issues with oral intake, increased nausea and emesis or difficulty keeping your medications down. Home Medications: Medications to take at Discharge Aspirin [Aspirin, Baby] 81 mg PO DAILY@0800 tab.chew 09/19/20 amiodarone 200 mg tablet 200 mg PO DAILY #90 tab 10/13/20 amlodipine 5 mg tablet 5 mg PO DAILY #90 tab 10/18/20 apixaban 5 mg tablet 5 mg PO BID #180 tab 10/18/20 metoprolol tartrate 25 mg tablet 25 mg PO BID #180 tab 10/18/20 Sucralfate [Carafate] 1 gm PO 4X/DAY #120 tab 11/10/20 losartan 100 mg tablet 100 mg PO DAILY #90 tab 11/17/20 Mag Hydrox/Al Hydrox/Simeth [Mylanta II] 15 ml PO Q8H PRN #473 mls 11/26/20 Metoclopramide [Reglan] 5 mg PO ACHS #120 tab 11/26/20 Ondansetron [Zofran Odt] 4 mg PO Q8H PRN PRN #30 tab 11/26/20 Pantoprazole Sodium [Protonix] 40 mg PO BID #60 tab 11/26/20 Potassium Chloride Oral Tablet [K-Dur] 20 meq PO BIDCM #60 tab 11/26/20 Following Prescriptions Were Given to Patient: Potassium Chloride Oral Tablet [K-Dur] 20 meq PO BIDCM #60 tab Transmission Status: Received by [facility] Mag Hydrox/Al Hydrox/Simeth [Mylanta II] 15 ml PO Q8H PRN #473 mls PRN Reason: Dyspepsia Transmission Status: Received by [facility] Pantoprazole Sodium [Protonix] 40 mg PO BID #60 tab Transmission Status: Received by [facility] Metoclopramide [Reglan] 5 mg PO ACHS #120 tab Transmission Status: Received by [facility] Ondansetron [Zofran Odt] 4 mg PO Q8H PRN PRN #30 tab PRN Reason: Nausea Transmission Status: Received by [facility] Primary Care Physician: Steven Tbubs MD [Primary Care Provider] - Please follow up with your Primary Care Physician in: Follow-up within 2-3 days of discharge to review admission. Please Follow Up With: Jeffry Rosario MD When: Follow-up this coming week 12/01/20, already in place. Please Follow Up With: Abiel Mooney MD When: Recommend earlier eval for Primary hyperthyroidism, prefer 1-2 weeks. Patient Instructions: Gastroparesis, What Is GERD?, Lifestyle Changes for Controlling GERD, Medications for GERD, Tips to Control Acid Reflux Disposition: Home with Home Health Minutes spent on discharge:: 35 Patient Condition:: Fair Medical Necessity - Tobacco Use Smoking Status: Never smoker Tobacco Use: Non-smoker Meaningful Use Info Meaningful Use Diagnoses (Choose all that apply): None applicable Inpatient E&M: 85766 Disch Hosp
--- NOTE | 2020-11-26 12:51 | PHA.DC.MC ---
Pharmacy Service has performed discharge medication reconciliation and counseling for this patient. The patient was counseled on the following discharge medications and changes in medications for homegoing were reviewed. The Reason for Use, instructions for use, and potential side effects were reviewed for all new medications. The patient's questions regarding all of their medications were answered. The patient was able to verbally demonstrate an understanding of their discharge medications. Home Medications Aspirin [Aspirin, Baby] 81 mg PO DAILY@0800 tab.chew 09/19/20 amiodarone 200 mg tablet 200 mg PO DAILY #90 tab 10/13/20 amlodipine 5 mg tablet 5 mg PO DAILY #90 tab 10/18/20 apixaban 5 mg tablet 5 mg PO BID #180 tab 10/18/20 metoprolol tartrate 25 mg tablet 25 mg PO BID #180 tab 10/18/20 Sucralfate [Carafate] 1 gm PO 4X/DAY #120 tab 11/10/20 losartan 100 mg tablet 100 mg PO DAILY #90 tab 11/17/20 Mag Hydrox/Al Hydrox/Simeth [Mylanta II] 15 ml PO Q8H PRN #473 mls 11/26/20 Metoclopramide [Reglan] 5 mg PO ACHS #120 tab 11/26/20 Ondansetron [Zofran Odt] 4 mg PO Q8H PRN PRN #30 tab 11/26/20 Pantoprazole Sodium [Protonix] 40 mg PO BID #60 tab 11/26/20 Potassium Chloride Oral Tablet [K-Dur] 20 meq PO BIDCM #60 tab 11/26/20 The patient's discharge medication list was reviewed for discrepancies and discrepancies were resolved. NOTE: Also made medication administration time chart per MD request. Patient also requested how to register for COVID vaccine. Gave information to patient and raisa, also registered them through the [facility] with their permission, as pt/ pt do not have access to the internet. Wrote details for patient about COVID vaccination clinic information once registered.
--- NOTE | 2020-11-29 14:04 | CASEMGMT ---
PITO ABARCA DC PHONE CALL DC DATE: 11/26/20 DC Disposition: Home Diagnosis on Discharge: Afib RVR, Dysphagia, Hypokalemia LACE/STRATA: 09/16 Intro role of CM to patient via phone. Pt states she is feeling improved. She states she had prescriptions filled and no questions re: her medications. She will be seeing her physician on sun and is aware of this appointment. No care needs identified and no care improvement concerns by the patient. Roscoe CAMERONN RN ACM
== END 2020-11-26 14:55 | disposition home or self-care (01) | DRG 391 ==
LOC: ED 08:44 → PCU 11:47
PROVIDERS: Admitting Provider Family Medicine; Emergency Provider Emergency Medicine; PCP Family Medicine; Visit Provider Family Medicine
DX: K22.4 Dyskinesia of esophagus (principal); E43 Unspecified severe protein-calorie malnutrition; E87.0 Hyperosmolality and hypernatremia; R13.12 Dysphagia, oropharyngeal phase; E87.6 Hypokalemia; I48.0 Paroxysmal atrial fibrillation; E05.20 Thyrotoxicosis with toxic multinodular goiter without thyrotoxic crisis or storm; R62.7 Adult failure to thrive; R53.81 Other malaise; E16.2 Hypoglycemia, unspecified; I10 Essential (primary) hypertension; K29.70 Gastritis, unspecified, without bleeding; G89.29 Other chronic pain; M48.00 Spinal stenosis, site unspecified; Z79.02 Long term (current) use of antithrombotics/antiplatelets; Z79.899 Other long term (current) drug therapy; Z68.31 Body mass index [BMI] 31.0-31.9, adult; K21.00 Gastro-esophageal reflux disease with esophagitis, without bleeding; K29.80 Duodenitis without bleeding
CPT/HCPCS: 36415; 74230; 80048; 80053; 81001; 83735; 84439; 84443; 84484; 85025; 92507; 92610; 92611; 93005; 97110; 97116; 97162; 97166; 97530; 97535; 97802; 97803; 99251; 99285; J7030; J7050; A4216; G0463; J2405

== ENCOUNTER 2020-12-01 13:14 | Emergency (ER) | payer MEDICARE, BC, SELFPAY ==
[2020-11-30 09:51] VITALS: BMI 31.8
[2020-12-01 13:16] VITALS: BP 120/63; PULSE 58; RESP 16; TEMP 36.6; O2SAT 92; BMI 29.9
[2020-12-01 13:26] VITALS: BP 102/79; PULSE 79; RESP 18; O2SAT 96
--- NOTE | 2020-12-01 13:32 | EKG12_ITS ---
Test Reason : SYNCOPE Blood Pressure : / mmHG Vent. Rate : 061 BPM Atrial Rate : 061 BPM P-R Int : 144 ms QRS Dur : 080 ms QT Int : 470 ms P-R-T Axes : 023 020 -24 degrees QTc Int : 473 ms Normal sinus rhythm Nonspecific ST and T wave abnormality Prolonged QT Abnormal ECG Confirmed by VICKIE BALDWIN, URVASHI ([id number]), editor school photograph LEONOR GUTIERREZ ([id number]) on 12/06/2020 10:42:33 AM Referred By: RHONDA Confirmed By:URVASHI JOHNSTON MD
--- NOTE | 2020-12-01 13:33 | ED.DCSUM_ITS ---
History of Present Illness Chief Complaint: Syncope Informant: Patient, Family, Significant Other Onset: Hours Context: Sudden Onset Timing: Intermittent Quality: Straining on commode Location: Passed out Current Severity: - - Resolved Maximum Severity: Moderate Worsened by: Presumed vasovagal Relieved by: Not applicable Associated Symptoms: Lightheadedness, nausea Narrative: 75-year-old woman with multiple medical problems who was recently admitted to [facility] and discharged on Sunday. She was on the commode straining. She passed out. She denies chest pain, shortness of breath. She denies nausea or vomiting presently. She states she has had problems with vomiting since August. She has not vomited today. She denies headache. She does have problems with vision has had problems with vision for the past several days. She was told this was due to her electrolyte abnormality. She denies black or maroon-colored stool. She denies urologic symptoms. - Past Medical History (1) penitentiary current use of anticoagulant Status: Acute (2) Atrial fibrillation with RVR Status: Acute (3) Dysphagia Status: Acute (4) Esophageal dysmotility Status: Acute (5) GERD (gastroesophageal reflux disease) Status: Acute (6) Hypokalemia Status: Acute (7) Intractable nausea and vomiting Status: Acute (8) Shortness of breath Status: Acute (9) Weight loss, unintentional Status: Acute (10) Coronary artery disease Status: Chronic (11) HTN (hypertension) Status: Chronic (12) Multiple thyroid nodules Status: Chronic (13) Osteoarthritis Status: Chronic (14) Rheumatoid arthritis Status: Chronic Past Medical History - Allergies and Home Meds Allergies/Adverse Reactions: Allergies hydrocodone [From Vicodin] Allergy (Verified 12/01/20 13:15) Other severe headache Primary Care Physician: Steven Tubbs MD [Primary Care Provider] - Prior records reviewed: Yes Surgical History: - Lives: Spouse/ Significant Other Smoking Status: Never smoker Alcohol: None Drugs: None - Family History Paternal Family History: Family History (Last Reviewed 11/30/20 @ 10:[address] Abiel Mooney MD) Mother Hypertension Brother Diabetes Other Alcohol abuse Anemia Arthritis COPD (chronic obstructive pulmonary disease) CVA (cerebral vascular accident) Colon cancer Respiratory disease Thyroid disorder Family History: Reports: Hypertension Sibling Family History: Family History (Last Reviewed 11/30/20 @ 10:[address] Abiel Mooney MD) Mother Hypertension Brother Diabetes Other Alcohol abuse Anemia Arthritis COPD (chronic obstructive pulmonary disease) CVA (cerebral vascular accident) Colon cancer Respiratory disease Thyroid disorder Family History: Reports: Diabetes Maternal Family History: Family History (Last Reviewed 11/30/20 @ 10:[address] Abiel Mooney MD) Mother Hypertension Brother Diabetes Other Alcohol abuse Anemia Arthritis COPD (chronic obstructive pulmonary disease) CVA (cerebral vascular accident) Colon cancer Respiratory disease Thyroid disorder Family History: Reports: Hypertension Review of Systems General: Denies: Chills, Fever, Malaise Eyes: Reports: Visual changes - bilaterally. Denies: Blurred Vision - bilaterally, Diplopia ENT: Denies: Bilateral ear pain, Rhinorrhea Cardiovascular: Denies: Chest pain, Palpitations Respiratory: Denies: Dyspnea, Cough, Dyspnea on exertion Gastrointestinal: Reports: Nausea, Vomiting. Denies: Abdominal pain, Diarrhea, Constipation, Melena, Hematochezia Genitourinary: Denies: Dysuria, Hematuria, Frequency Musculoskeletal: Reports: Extremity Pain. Denies: Myalgias, Arthralgias, Neck pain, Back pain, Swelling Skin: Denies: Rash, Wounds - Bruises are old. Neurological: Reports: Weakness. Denies: Headache, Parasthesia Psych: Reports: Depression Hematologic: Reports: Easy bruising. Denies: Easy bleeding Physical Exam Vital Signs/Narrative: Vital Signs Temp Pulse Resp BP Pulse Ox 12/01/20 13:16 97.9 F 58 L 16 120/63 92 Inital Vital Signs reviewed: Yes General: Well nourished, Well developed, Obese, No Acute Distress Head: Normocephalic, Atraumatic Eyes: Perrl, EOMI. Negative for: Pale conjunctiva, Scleral icterus ENT: Negative for: No rhinorrhea, TM's clear Neck: Negative for: Supple, Nontender, No lymphadenopathy, No JVD Cardiovascular: Irregular. Negative for: Regular rhythm, No murmurs, Normal S1, Normal S2 Respiratory: Negative for: No distress, CTA bilaterally, Chest nontender Abdomen: Negative for: Soft, Nontender, Nondistended, Normal bowel sounds Rectal: Deferred Back: Nontender, Normal Inspection. Negative for: CVA tenderness Extremities: Nontender, Edema. Negative for: No edema Skin: Normal color, No rash, Trauma Neurological: Alert, Oriented x3, Cranial nerves II-XII grossly intact, Normal Strength, Normal Sensation Psychological: Depressed Diagnostic/Tx/Re-eval - EKG Initial EKG Interpretation: Sinus Rhythm - Normal sinus rhythm with a ventricular rate of 61. WI interval is 144 ms. Cures duration 80 ms. QT duration 470 ms. QTc 473 ms. Acute T duration is prolonged. There is minimal nonspecific ST-T wave changes noted. There is no acute ischemic changes. - Medical Decision Making Since history is consistent with vasovagal syncopal episode. EKG was obtained to rule out cardiac ischemia as cause. If the EKG is normal in light of the fact that she was straining to have a bowel movement passed out will discharge. Since there is no acute ischemic changes will discharge to home with appropriate home-going instructions ED Disposition - Plan for ED Patient: Disposition: Home or Assisted Living Diagnosis: Vasovagal syncope Instructions: ED Fainting, Vagal Reaction Referrals: Steven Tubbs MD [Primary Care Provider] - Keep Darius appointment
--- NOTE | 2020-12-01 15:20 | CASEMGMT ---
Social Work Consult: Shelter Placement Informant: Nursing staff Met with patient and patient spouse in room. Introduced self and social sciences research scientist role. Patient provided verbal permission for this social sciences research scientist to speak openly with patient spouse present. Patient and patient spouse are concerned about patient returning to home as she is so weak. Patient and patient spouse report to be exploring option for patient to have a PEG tub placed and were to have an appointment with Dr. Rosario today. Per Dr. Nelson patient does not meet medical criteria for admission to the medical unit and if patient is unable to return to home recommendation would be for patient to transition to a [facility]. This social sciences research scientist broached topic of mcc placement for patient. Patient and patient spouse are not wanting patient to discharge to a mcc and would rather for patient to return to home. This social sciences research scientist inquired about home health services for patient. Patient and patient spouse declining home health care and after discussion further with this social sciences research scientist plan for patient to return to home with family for support and to follow up with Dr. Rosario. Active support provided by this social sciences research scientist. Patient spouse to provide transportation. Vera TIRADO, SANDI
[2020-12-01 15:39] VITALS: BP 126/69; PULSE 70; RESP 15; O2SAT 99
--- NOTE | 2020-12-01 15:40 | ED.RN ---
expressed concerns about being able to care for patient at home. case management consulted. after speaking with case management and family pt agreed to be discharged home with follow up care by pcp. eloise rizzo rn [id number]
== END 2020-12-01 15:43 | disposition home or self-care (01) ==
LOC: ED 13:56
PROVIDERS: Emergency Provider Emergency Medicine; PCP Family Medicine
DX: R55 Syncope and collapse (principal); K21.9 Gastro-esophageal reflux disease without esophagitis; I25.10 Atherosclerotic heart disease of native coronary artery without angina pectoris; I10 Essential (primary) hypertension; M06.9 Rheumatoid arthritis, unspecified; M19.90 Unspecified osteoarthritis, unspecified site; E66.9 Obesity, unspecified
CPT/HCPCS: 93005; 99284

== ENCOUNTER → 2020-12-09 10:35 | Outpatient (CLI) | payer MEDICARE, BC, SELFPAY ==
[2020-12-09 09:23] VITALS: BMI 31.0
[2020-12-09 11:08] LABS: Erythrocyte Sedimentation Rate 9 mm/hr (0-30)
[2020-12-09 11:37] LABS: Vitamin B12 979 pg/mL (211-911)
[2020-12-09 11:41] LABS: Free T3 1.4 pg/mL (2.18-3.98); T4 Free Direct 1.82 ng/dL (0.76-1.46); Thyroid Stim Hormone (TSH) 0.62 uIU/mL (0.358-3.74)
[2020-12-09 11:51] LABS: CPK Total, Creatine Kinase 24 U/L (26-192); Magnesium 2.1 mg/dL (1.6-2.6)
[2020-12-13 16:08] LABS: Vitamin D 1,25-Dihydroxy 22.8 pg/mL (19.9-79.3)
[2020-12-13 16:22] LABS: ANTINUCLEAR ANTIBODIES DIRECT Negative (Negative)
[2020-12-14 10:11] LABS: T3 Reverse 93.5 ng/dL (9.2-24.1)
[2020-12-16 20:10] LABS: Aldolase 4.8 U/L (3.3-10.3); Free Kappa Light Chains 14.6 mg/L (3.3-19.4); Free Lambda Light Chains 16.3 mg/L (5.7-26.3); Vitamin B1, Thiamine 34.2 nmol/L (66.5-200.0)
[2020-12-17 16:25] LABS: ACHR Recep AB, Blocking 15 % (0-25); Myoglobin, Serum 25 ng/mL (25-58)
== END ==
PROVIDERS: Internal Medicine Endocrinology, Diabetes & Metabolism; PCP Family Medicine; Referring Provider Psychiatry & Neurology Neurology; Visit Provider Psychiatry & Neurology Neurology
DX: G62.9 Polyneuropathy, unspecified (principal); E55.9 Vitamin D deficiency, unspecified; G72.9 Myopathy, unspecified; E87.6 Hypokalemia; R53.1 Weakness; I48.91 Unspecified atrial fibrillation; R94.6 Abnormal results of thyroid function studies
CPT/HCPCS: 36415; 82085; 82550; 82607; 82652; 82746; 83519; 83735; 83874; 83883; 84132; 84425; 84439; 84443; 84481; 84482; 85652; 86038; 86225; 86235

== ENCOUNTER → 2021-01-14 09:54 | Outpatient (CLI) | payer SELFPAY ==
[2021-01-04 14:15] VITALS: BMI 31.0
--- NOTE | 2021-01-14 09:58 | CDU_ITS ---
Reason For Study: Cerebrovascular disease, Gait disorder Rt. Velocities/BP Lt. Velocities/BP Prox CCA 65/8 cm/sec. Prox CCA 63/11 cm/sec. Mid CCA 63/12 cm/sec. Mid CCA 47/10 cm/sec. Dist CCA 54/12 cm/sec. Dist CCA 47/6 cm/sec. Prox ICA 40/10 cm/sec. Prox ICA 42/13 cm/sec. Mid ICA 93/19 cm/sec. Mid ICA 70/18 cm/sec. Dist ICA 83/20 cm/sec. Dist ICA 76/21 cm/sec. Rt. ICA/CCA = 1.5. Lt. ICA/CCA = 1.6. Prox ECA 67/5 cm/sec. Prox ECA 52 cm/sec. Rt. Vert. 45/12 cm/sec. Lt. Vert. 48/13 cm/sec. Right Extracranial There is heterogeneous, irregular atherosclerotic plaque noted in the right common carotid artery. There is intimal thickening but no significant atherosclerotic plaque noted in the right internal carotid artery. There is heterogeneous, irregular atherosclerotic plaque noted in the right external carotid artery. Antegrade flow is noted in the right vertebral artery. Left Extracranial There is heterogeneous, irregular atherosclerotic plaque noted in the left common carotid artery. There is intimal thickening but no significant atherosclerotic plaque noted in the left internal carotid artery. There is heterogeneous, smooth atherosclerotic plaque noted in the left external carotid artery. Antegrade flow is noted in the left vertebral artery. VL/Carotid Duplex Ultrasound Interpretation Summary No significant atherosclerotic plaque or stenosis noted in the internal carotid arteries bilaterally. Flow within the vertebral arteries is antegrade bilaterally. Ordering Physician: Stiven Steele Referring Physician: Honorio Nettles Chi Performed By: Eugenie Mejia, KAREEMCS, RVT
== END ==
PROVIDERS: PCP Family Medicine Geriatric Medicine; Referring Provider Psychiatry & Neurology Neurology; Visit Provider Psychiatry & Neurology Neurology
DX: I69.322 Dysarthria following cerebral infarction (principal); R26.89 Other abnormalities of gait and mobility
CPT/HCPCS: 93880

== ENCOUNTER → 2021-01-17 13:11 | Outpatient (CLI) | payer MEDICARE, BC, SELFPAY ==
[2021-01-04 14:15] VITALS: BMI 31.0
--- NOTE | 2021-01-17 13:11 | MRI_ITS ---
STUDY: MRI BRAIN WITH AND WITHOUT CONTRAST REASON FOR EXAM: Female, 75 years old. abnormal gait; assess of possible dymyelinating dz TECHNIQUE: Standardized multiplanar fat and water weighted pulse sequences were obtained. 15 CC IV DOTAREM was administered for the contrast portion of the examination. COMPARISON: MRI of the brain dated August 20172019 FINDINGS: There is mild cerebral atrophy with widening of the extra-axial spaces and ventricular dilatation. There are multiple white matter hyperintensities, distributed throughout the deep white matter tracts of the cerebral hemispheres, consistent with moderate chronic white matter ischemic changes. There is no evidence for recent intracranial ischemia or other cause of cytotoxic edema on diffusion weighted imaging (DWI). Normal T2* images of the brain without demonstrated susceptibility artifact. There is no demonstrated hemosiderin stain. No abnormal enhancement is seen. Normal bilateral basal ganglia. Normal thalami. There is no extra-axial fluid accumulation. Normal flow voids within the major intracranial circulation suggesting patency by spin echo criteria. Normal venous enhancement. There is no enhancing intra-axial or extra-axial abnormality. Normal sella turcica, pituitary gland, infundibular stalk, optic chiasm and hypothalamus. Normal tectal plate and pineal gland. Normal midbrain, fanta and medulla. Normal cerebellum. Normal basal cisterns. Normal bilateral temporal bones. Normal bilateral internal auditory canals. No demonstrated orbital abnormality, within the constraints of a routine brain study. Normal visualized paranasal sinuses. Normal calvarium and skull base. Normal visualized soft tissue structures. Normal visualized upper cervical spine. MRI/Brain W/WO Contrast IMPRESSION: 1. Moderate chronic ischemic changes of the brain, as described above. Electronically Signed: Bobby Zarate MD at 19:11 EDT , Service support ,
== END ==
PROVIDERS: PCP Family Medicine Geriatric Medicine; Referring Provider Psychiatry & Neurology Neurology; Visit Provider Psychiatry & Neurology Neurology
DX: I67.9 Cerebrovascular disease, unspecified (principal); R26.9 Unspecified abnormalities of gait and mobility; R53.1 Weakness
CPT/HCPCS: 70553; A9575

== ENCOUNTER → 2021-01-31 16:00 | Outpatient (CLI) | payer MEDICARE, BC, SELFPAY ==
[2021-01-31 15:00] VITALS: BMI 31.6
[2021-01-31 17:26] LABS: Vitamin D,25 Hydroxy 61.1 ng/mL
[2021-02-06 08:05] LABS: Vitamin B1, Thiamine 312.5 nmol/L (66.5-200.0)
== END ==
PROVIDERS: PCP Family Medicine Geriatric Medicine; Referring Provider Psychiatry & Neurology Neurology; Visit Provider Psychiatry & Neurology Neurology
DX: E53.8 Deficiency of other specified B group vitamins (principal); E51.9 Thiamine deficiency, unspecified; E55.9 Vitamin D deficiency, unspecified
CPT/HCPCS: 36415; 82306; 82746; 84425

== ENCOUNTER → 2021-03-11 | Outpatient (CLI) | payer MEDICARE, BC, SELFPAY ==
[2021-03-02 14:25] VITALS: BMI 31.2
== END | disposition home or self-care (01) ==
LOC: LABSPEC 09:08
PROVIDERS: PCP Family Medicine; Referring Provider Family Medicine; Visit Provider Family Medicine
DX: R19.7 Diarrhea, unspecified (principal)

== ENCOUNTER → 2021-03-12 09:27 | Outpatient (CLI) | payer MEDICARE, BC, SELFPAY ==
[2021-03-02 14:25] VITALS: BMI 31.2
== END ==
PROVIDERS: PCP Family Medicine; Visit Provider Family Medicine
DX: R19.7 Diarrhea, unspecified (principal)
CPT/HCPCS: 87177; 87209; 87493; 87506

== ENCOUNTER 2021-05-13 09:52 | Emergency (ER) | payer MEDICARE, BC, SELFPAY ==
[2021-04-04 15:04] VITALS: BMI 28.7
[2021-05-13 09:53] VITALS: BP 130/81; PULSE 103; RESP 16; TEMP 36.7; O2SAT 97; BMI 26.9
--- NOTE | 2021-05-13 10:08 | EX.ED.DYSGE1 ---
HPI History of Present Illness Chief Complaint: Diarrhea Informant: patient Onset/Context/Timing Onset: Month(s) (1 month) Timing: Continuous Current Severity: Moderate (4 episodes per day) Associated Symptoms Associated Symptoms: Nausea Narrative Narrative: Patient presents with a 1 month history of diarrhea. She reports passing liquid stool 4 times a day. She denies blood associated with the stool. She does have nausea but no vomiting. She states she only gets crampy abdominal pain right before a bowel movement. No fever or chills. Stool studies obtained by her PCP at the onset of the illness were significant only for the C. difficile antigen but negative for the toxin. Patient states she has been taking Imodium for the past 3 weeks without improvement. When she called her doctor to advise she was still having symptoms she was referred to Dr. Wallace. She states she cannot get into see him for 2 months. She presents to the ER today because of increasing weakness. [facility] Medical History (Updated 05/13/21 @ 13:[address] 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 Multiple thyroid nodules Osteoarthritis Osteoporosis Polyneuropathy Rheumatoid arthritis Spinal stenosis Weight loss, unintentional Home Medications aspirin 81 mg PO DAILY@0800 tab.chew 09/19/20 [Rx Last Taken 11/22/20 09:00] alum-mag hydroxide-simeth 15 ml PO Q8H PRN #473 mls 11/26/20 [Rx Last Taken Unknown] atorvastatin 10 mg tablet 10 mg PO DAILY 02/10/21 [History Last Taken Unknown] metoprolol succinate 25 mg tablet,extended release 24 hr 25 mg PO DAILY #90 tab 02/21/21 [Rx Last Taken Unknown] apixaban 2.5 mg tablet 2.5 mg PO BID #180 tab 03/16/21 [Rx Last Taken Unknown] metoclopramide HCl 5 mg tablet 5 mg PO 4X/DAY tab 03/16/21 [History Last Taken Unknown] pantoprazole 40 mg tablet,delayed release 40 mg PO BID tab 03/16/21 [History Last Taken Unknown] potassium chloride 10 mEq tablet,extended release 20 meq PO DAILY tab 03/16/21 [History Last Taken Unknown] cholecalciferol (vitamin D3) 1,250 mcg (50,000 unit) capsule 1,250 mcg PO QWEEK #4 cap 04/04/21 [Rx Last Taken Unknown] folic acid 1 mg tablet 1 mg PO DAILY #30 tab 04/21/21 [Rx Last Taken Unknown] sulfamethoxazole-trimethoprim [Bactrim DS] 1 tab PO BID #5 tab 05/13/21 [Rx Last Taken Unknown] Allergy/AdvReac Type Severity Reaction Status Date / Time hydrocodone [From Vicodin] Allergy Other Verified 05/13/21 09:53 Family History Mother Hypertension Alcohol abuse Anemia Respiratory disease Brother Diabetes Thyroid disorder Father Alcohol abuse Respiratory disease Grandmother Colon cancer Other Arthritis COPD (chronic obstructive pulmonary disease) CVA (cerebral vascular accident) Cancer Heart disease Surgical History History of bilateral knee replacement History of bladder suspension procedure History of cataract surgery History of oral surgery Hx of cholecystectomy Hx of hysterectomy S/P fine needle aspiration (~10/2020) Social History Smoking Status: Never smoker Electronic Cigarette Use: not used second hand exposure: No alcohol intake: current alcohol intake frequency: holidays/special occasions only Alcohol type: wine substance use type: does not use what type of physical activity do you participate in: swimming and aerobics frequency: 3-4 times per week ROS ROS ED Constitutional Constitutional ED: Denies chills or fever(s) Eyes Eyes: Denies change in vision ENT ENT ED: Denies sore throat Cardiovascular Cardiovascular: Denies chest pain Respiratory/Chest Respiratory/Chest: Denies cough or dyspnea Gastrointestinal Gastrointestinal: Reports abdominal pain, diarrhea and nausea; Denies vomiting Genitourinary Genitourinary ED: Denies dysuria Musculoskeletal Musculoskeletal: Denies back pain Integumentary Denies rash Neurologic Neurologic: Reports weakness; Denies headache(s) Psychiatric Psychiatric: Denies anxiety or depression Endocrine Endocrinology: Denies polydipsia or polyuria Allergic/Immunologic Allergic/Immunologic ED: Denies urticaria EXAM Physical Exam Const Vital Signs: 05/13/21 09:53 05/13/21 12:56 Temperature 98.1 F Temperature Source Oral Pulse Rate 103 H 77 Respiratory Rate 16 14 Blood Pressure 130/81 H 152/78 H Blood Pressure Mean 97 102 Pulse Ox 97 98 Oxygen Delivery Method Room Air Room Air Positive well nourished and well developed General Appearance ED: well developed HEENT Reports normocephalic and head/scalp atraumatic Eyes PERRL and EOMs intact bilaterally Neck supple Chest Wall inspection of chest normal and palpation of chest normal Resp normal respiratory effort and clear to auscultation bilaterally Cardio regular rate and regular rhythm GI non-tender Auscultation: hypoactive bowel sounds Palpation: soft Extremity normal to inspection Neuro oriented x3 Sensorium / Orientation: alert Psych mental status grossly normal Skin no rashes or lesions noted MDM MDM MDM Narrative Medical decision making narrative: Patient was given IV fluids. Labs, urinalysis, stool studies are ordered. Lab Data Attestation: I reviewed the patient's lab results. Labs: Laboratory Results - last 24 hr 05/13/21 05/13/21 05/13/21 10:20 10:20 11:53 WBC 12.5 H RBC 4.08 L Hgb 12.6 Hct 39.7 MCV 97.3 MCH 30.9 MCHC 31.7 L RDW Std Deviation 56.2 H RDW Coeff of Eladia 15.8 H Plt Count 367 MPV 8.4 Immature Gran % (Auto) 0.700 Neut % (Auto) 72.2 H Lymph % (Auto) 18.6 L Ocean % (Auto) 7.2 Eos % (Auto) 0.9 Baso % (Auto) 0.4 Absolute Neuts (auto) 9.0 H Absolute Lymphs (auto) 2.32 Nucleated RBC % 0 Sodium 137 Potassium 4.1 Chloride 106 Carbon Dioxide 24.0 Anion Gap 7 BUN 15 Creatinine 0.62 Estim Creat Clear Calc 33.84 Est GFR (MDRD) Af Amer 119 Est GFR (MDRD) Non-Af 99 BUN/Creatinine Ratio 24.1 H Glucose 87 Calcium 8.5 Total Bilirubin 0.80 Direct Bilirubin 0.18 AST 15 ALT 13 Alkaline Phosphatase 48 Total Protein 5.6 L Albumin 2.3 L Globulin 3.3 Urine Color Yellow Urine Clarity Sl. Cloudy Urine pH 5.0 Ur Specific Mcqueeney 1.025 Urine Protein 30 H Urine Glucose (UA) Normal Urine Ketones 50 H Urine Occult Blood Negative Urine Nitrite Positive H Urine Bilirubin 1 H Urine Urobilinogen 1 H Ur Leukocyte Esterase 25 H Urine RBC Cancelled Urine WBC Cancelled Ur Squamous Epith Cells Cancelled Ur Transition Epith Cell Cancelled Ur Renal Epithelial Cell Cancelled Calcium Oxalate Crystal Cancelled Uric Acid Crystals Cancelled Triple Phos Crystals Cancelled Other Crystals Cancelled Amorphous Sediment Cancelled Urine Bacteria Cancelled Hyaline Casts Cancelled Fine Granular Casts Cancelled Coarse Granular Casts Cancelled Waxy Casts Cancelled RBC Casts Cancelled WBC Casts Cancelled Urine Mucus Cancelled Urine Trichomonas Cancelled Urine Yeast Cancelled Treatment and Re-Evaluation Comments:: On repeat evaluation patient resting comfortably. Test results discussed with her. There is only a small urine sample obtained. Macroscopic examination was able to perform but not microscopic. This does appear that she may have a UTI with positive nitrites. She will be treated with 3 days of an antibiotic as UTI may be prolonging her diarrhea. A small stool study was sent but lab advises this was not enough to run the appropriate test. Patient will be given an outpatient order for stool studies and she will bring a sample back. Addendum: Prior to the end of my shift I was given stool studies that they were able to run off a sample sent. Patient is positive for Shiga toxin 1 as well as C. difficile toxin. Patient will need to be placed on Flagyl 500 mg 3 times daily x14 days. She will be instructed to stop the Bactrim that she was prescribed today. I believe the changes in the urine were likely secondary to her bowel infection. I did leave a message on the patient's cell phone to have her call us back. I will leave instructions with the charge nurse to call the patient again this evening if we have not heard back. Discharge Plan Triage Chief Complaint: Diarrhea ED Provider: Ivette Evans Dx/Rx/DC Orders Clinical Impression: Diarrhea, Acute UTI Instructions: ED Diarrhea, Unknown Cause, ED CYSTITIS Female Adult Prescriptions: New sulfamethoxazole-trimethoprim [Bactrim DS] 800-160 mg tablet 1 tab PO BID Qty: 5 RF: 0 No Action atorvastatin 10 mg tablet 10 mg PO DAILY RF: 0 potassium chloride 10 mEq tablet extended release 20 meq PO DAILY RF: 0 apixaban 2.5 mg tablet 2.5 mg PO BID Qty: 180 RF: 3 pantoprazole 40 mg tablet,delayed release (DR/EC) 40 mg PO BID RF: 0 metoclopramide HCl 5 mg tablet 5 mg PO 4X/DAY RF: 0 cholecalciferol (vitamin D3) 1,250 mcg (50,000 unit) capsule 1,250 mcg PO QWEEK Qty: 4 RF: 4 aspirin 81 MG tablet,chewable 81 mg PO DAILY@0800 RF: 0 alum-mag hydroxide-simeth 30 ML suspension 15 ml PO Q8H PRN (Reason: Dyspepsia) Qty: 473 RF: 0 metoprolol succinate 25 mg tablet extended release 24 hr 25 mg PO DAILY Qty: 90 RF: 3 folic acid 1 mg tablet 1 mg PO DAILY Qty: 30 RF: 3 Primary Care Provider: Steven Tubbs Referrals: Steven Tubbs MD [Primary Care Provider] - 1 Week Disposition Disposition: Home, Self Care Discharge Date/Time: 05/13/21 13:30
[2021-05-13 10:34] LABS: Absolute Lymphocyte Count 2.32 X10^3/uL (0.83-4.51); Basophil# 0.05 X10^3/uL; Basophil% 0.4 % (0-1); Eosinophil# 0.11 X10^3/uL; Eosinophils% 0.9 % (0-5); Hematocrit 39.7 % (37-47); Hemoglobin 12.6 g/dL (12.0-15.0); Lymphocyte # 2.32 X10^3/ul (0.83-4.51); Lymphocyte % 18.6 % (19-41); Mean Corp Hgb Conc 31.7 g/dL (32-36); Mean Corpuscular Hgb 30.9 pg (27.0-32.0); Mean Corpuscular Volume 97.3 fL (81-99); Mean Platelet Vol. 8.4 fl (6.2-12.0); Monocyte% 7.2 % (0-10); NRBC Flagged by Analyzer 0 % (0-5); Neutrophil # 9.01 X10^3/uL (2.7-7.7); Neutrophil % 72.2 % (47-70); Platelet Count 367 K/mm3 (150-450); RBC Distribution Width CV 15.8 % (11.6-14.6); RBC Distribution Width SD 56.2 fl (35.1-43.9); Red Blood Count 4.08 M/mm3 (4.2-5.4); White Blood Count 12.5 K/mm3 (4.4-11.0)
[2021-05-13 10:54] LABS: AST(SGOT) 15 U/L (15-37); Alanine Aminotransfer ALT/SGPT 13 U/L (13-56); Albumin, Serum 2.3 g/dL (3.2-5.0); Alkaline Phosphatase 48 U/L (45-117); Anion Gap 7 (5-15); BUN 15 mg/dL (7-18); BUN/Creat Ratio 24.1 RATIO (10-20); Bilirubin, Direct 0.18 mg/dL (0.00-0.30); Calcium,Total 8.5 mg/dL (8.5-10.1); Chloride 106 mmol/L (98-107); Creatinine, Serum 0.62 mg/dL (0.55-1.02); EST Glomerular Filtration Rate 99 mL/min (>60); Est Glom Filt Rate - Afr Amer 119 mL/min (>60); Estimated Creatinine Clearance 33.84 ml/min; Globulin 3.3 g/dL (2.2-4.2); Glucose 87 mg/dL (74-106); Potassium 4.1 mmol/L (3.5-5.1); Protein, Total 5.6 g/dL (6.4-8.2); Sodium Level 137 mmol/L (136-145)
[2021-05-13 12:06] LABS: Color, Urine Yellow (Yellow); Glucose, Dipstick Normal (Normal); Ketone-Dipstick 50 mg/dl (Negative); Leukocyte Esterase-Dipstick 25 /ul (Negative); Nitrite-Dipstick Positive (Negative); Occult Blood-Urine Negative /ul (Negative); Protein-Dipstick 30 mg/dl (Negative); Specific Gravity, Urine 1.025 (1.002-1.030); Urine Clarity Sl. Cloudy (Clear); Urine Urobilinogen 1 mg/dl (Normal)
[2021-05-13 12:07] LABS: Urine Bilirubin Dipstick 1 mg/dL (Negative)
[2021-05-13 12:56] VITALS: BP 152/78; PULSE 77; RESP 14; O2SAT 98
[2021-05-13] MEDS: Smz/Tmp Ds Tablet 1 TABLET PO (13:19)
--- NOTE | 2021-05-14 14:33 | ED.RN ---
pt had rx change and was told to stop the bactrim and start flagyl 500 tid x 14 days. pt wanted rx called [facility]. it was done by this nurse dr chawla is aware
== END 2021-05-13 13:30 | disposition home or self-care (01) ==
PROVIDERS: Emergency Provider Emergency Medicine; PCP Family Medicine
DX: A04.72 Enterocolitis due to Clostridium difficile, not specified as recurrent (principal); A04.8 Other specified bacterial intestinal infections; N39.0 Urinary tract infection, site not specified; F41.9 Anxiety disorder, unspecified; K21.9 Gastro-esophageal reflux disease without esophagitis; I10 Essential (primary) hypertension; M19.90 Unspecified osteoarthritis, unspecified site; M06.9 Rheumatoid arthritis, unspecified; I48.91 Unspecified atrial fibrillation; I48.92 Unspecified atrial flutter; Z79.02 Long term (current) use of antithrombotics/antiplatelets; Z79.899 Other long term (current) drug therapy
CPT/HCPCS: 80048; 80076; 81001; 81002; 83630; 85025; 87493; 87506; 96360; 96361; 99285; J7040; A4216

== ENCOUNTER → 2021-05-14 | Outpatient (CLI) | payer MEDICARE, BC, SELFPAY ==
[2021-05-13 09:53] VITALS: BMI 26.9
== END | disposition home or self-care (01) ==
LOC: LABSPEC 08:56
PROVIDERS: PCP Family Medicine; Referring Provider Emergency Medicine; Visit Provider Emergency Medicine
DX: R19.7 Diarrhea, unspecified (principal)
CPT/HCPCS: 87177; 87209; 87493

== ENCOUNTER → 2021-05-25 10:52 | Outpatient (CLI) | payer MEDICARE, BC, SELFPAY ==
[2021-01-31 15:00] VITALS: BMI 31.6
[2021-05-13 09:53] VITALS: BMI 26.9
--- NOTE | 2021-05-25 13:31 | NEURO ---
NCS and/or EMG Patient Report Ordering Doctor: Stiven Steele DATE OF SERVICE: 05/25/21 Paula Samuels presents for electrodiagnostic testing of the upper limbs. She has numbness and tingling in both hands Electrodiagnostic findings: Median motor nerve demonstrates prolonged distal latency on the right side with reduced conduction velocity. Reduced left median motor conduction velocities noted. Normal ulnar motor response bilaterally. Normal median and ulnar F waves. Prolonged median sensory latency at the wrist bilaterally. Normal ulnar and radial sensory responses. On needle EMG, all muscles tested in the upper limbs showed no evidence of denervation with normal motor unit action potentials. Electrodiagnostic impression: This is an abnormal study in the upper limbs 1. Electrodiagnostic findings demonstrate bilateral median mononeuropathy. This is consistent with a moderate bilateral carpal tunnel syndrome.
== END ==
PROVIDERS: PCP Family Medicine; Referring Provider Psychiatry & Neurology Neurology; Visit Provider Psychiatry & Neurology Neurology
DX: M48.02 Spinal stenosis, cervical region (principal); R53.1 Weakness
CPT/HCPCS: 95886; 95913

== ENCOUNTER 2021-10-26 08:40 | Outpatient (CLI) | payer MEDICARE, BC, SELFPAY ==
--- NOTE | 2021-10-26 08:44 | BI_ITS ---
MAMMOGRAPHY - BILATERAL SCREENING REASON FOR EXAM: Female, 76 years old. Routine annual screening examination. PERTINENT HISTORY: Left breast lump. Grandmother with breast cancer. TECHNIQUE: Digital bilateral breast elias (3D mammographic acquisition) in the CC and MLO projections. 2-D mediolateral oblique (MLO) and craniocaudad (CC) views of both breasts were obtained. Compression views were obtained as well. CAD: Full Field Digital Mammography with Computer Added Detection was performed. COMPARISON: Comparison is made with prior study dated 12/26/2018 and 11/30/2016. FINDINGS: Breast Composition: The breasts are heterogeneously dense, which may obscure small masses. The palpable adenopathy corresponds to a 1.9 cm x 1.9 cm nodule in the deep inferior medial aspect of the left breast. Correlation with ultrasound is recommended. Prominent left axillary lymph node. No other significant abnormalities are identified. BI/SCREENING MAMM (CAD), BILAT IMPRESSION: 1.9 cm x 1.9 cm nodule in the deep inferior medial aspect of the left breast as described. Prominent left axillary lymph node. Correlation with ultrasound is recommended. ASSESSMENT CATEGORY: BIRADS Category 0: Incomplete. Need additional imaging evaluation. A letter regarding these results will be sent to the patient by the facility within 30 days. Approximately 10% of breast cancers are not detected by mammography. A normal mammogram should not delay biopsy of a clinically suspicious abnormality. [id number] Electronically Signed: Jones Rider MD at 10:22 EST , Service support ,
--- NOTE | 2021-10-26 09:15 | US_ITS ---
STUDY: ULTRASOUND BREAST - LEFT REASON FOR EXAM: Female, 76 years old. Abnormal screening mammogram. TECHNIQUE: Axial and longitudinal images of the LEFT breast were performed with a high resolution ultrasound transducer. # OF IMAGES: 35 COMPARISON: Comparison is made with prior mammogram done earlier in the day. FINDINGS: LEFT Breast: The mammographic abnormality corresponds to a 4.4 cm x 4.2 cm x 3.4 cm irregular heterogeneous solid mass in the deep medial aspect of the left breast. Biopsy is strongly recommended. There is also evidence of a 2.7 cm x 3.4 cm x 2.7 cm abnormal-appearing lymph node in the left axilla. US/Breast Limited Unilateral IMPRESSION: Abnormal left axillary lymphadenopathy with a dominant 4.4 cm x 4.2 cm by 3.4 cm irregular heterogeneous solid mass in the deep medial aspect of the left breast. Biopsy strongly recommended. ASSESS MENT CATEGORY: BIRADS Category 5: Highly Suggestive of Malignancy - Appropriate Action Should Be Taken. A letter regarding these results will be sent to the patient by the facility within 30 days. Electronically Signed: Jones Rider MD at 14:28 EST , Service support ,
== END 2021-10-26 23:59 | disposition short-term general hospital (02) ==
PROVIDERS: PCP Family Medicine; Referring Provider Nurse Practitioner Family; Visit Provider Nurse Practitioner Family
DX: Z12.31 Encounter for screening mammogram for malignant neoplasm of breast (principal); R92.8 Other abnormal and inconclusive findings on diagnostic imaging of breast
CPT/HCPCS: 76642; 77067

== ENCOUNTER 2021-10-27 15:31 | Outpatient (CLI) | payer MEDICARE, BC, SELFPAY ==
--- NOTE | 2021-10-27 | IMM_PTH ---
PATIENT: ANAY CHAIREZ LOC: [facility] U#:[id number] AGE/SX: 76/F ROOM: RE10/27/[address]: Dr. Jeffry Rosario MD : 1945 BED: DIS: 10/27/2021 SPEC #: [id number] RECD: 10/31/21 12:57 STATUS: BISHOP REQ #: [id number] CARMELLA: 10/27/21 00:[address]: Jeffry Rosario DEPT: IMMUNOHISTOCHEMISTRY RECD BY: Kyra Aaron ENTERED: 10/31/21 13:00 SP TYPE: IMMUNO OTHR DR: Kortney Mcgee, CHILDREN COUNSELOR-C Tissues: A - Left breast, NOS B - Axilla, NOS Procedures: CALPONIN-1 (add) CK5-6 (add) CK8 (add) OSUNA-2 (add) E-CAD (add) HER2 TOREY (add) KI-67 (add) MAMM (add) P53 (add) OK (add) IN SITU HYBRIDIZATION Pankeratin (add) GATA3 (add) P40 (add) ER (initial) PHYSICIAN & [place] [id number] SPECIMEN INFORMATION: Tissue Source: A ? Left breast tissue, B ? Left axillary tissue Clinical Info: Abnormal mammogram Specimen Number: [id number] A & B CPT code: 56796 x2, 92574 x10, 68954 x5, 36981 x2 METHODOLOGY: Deparaffinized sections of prefer/formalin-fixed tissue or PAP/DQ stained slides are incubated with monoclonal/polyclonal antibodies/oligonucleotide probes. Localization is made via biotin free immunoperoxidase method. Appropriate controls are performed and reacted as expected. Results on target cell population are indicated in the following table: RESULTS: ANTIBODY / CLONE RESULT Block A P53 (DO-7) positive, 90% Ki-67 (30-9) positive, 50% CK8 (78tqdmR56) positive CK5-6 (D5 & 1684) negative Calponin-1 (YH122P) negative P40 (BC28) negative E-Cad (ECH-6) positive OSUNA-2 (SP21) positive, dim MORPHOMETRIC ANALYSIS ER (clone 6F11) >95%, strong intensity OK (clone 16/1E2) 85%, moderate intensity Her-2Neu (clone CB11) 1-2+ Block B ER (6F11) positive OK (1E2) positive Mammaglobin (31A5) negative GATA3 (L50-823) positive AE1-3 (AE1/AE3/PCK26) positive CK8 (30xhdfZ08) positive The prognostic test for HER2 is performed on formalin-fixed paraffin embedded tissue. A 3+ (positive) staining pattern is defined as intense, homogeneous, complete, circumferential membranous staining in >10% of contiguous tumor cells. A similar weak (2+) staining pattern is interpreted as equivocal. JOSE E follow-up testing is recommended for all equivocal cases. Positivity/negativity for ER/OK is reported if > or < 1% of the tumor cells are immuno- reactive, respectively. The ASCO/CAP criteria is used for scoring. Reference: Journal of Clinical Oncology, 2013; 31:3120-9982 & 2010; 16:3851-4289. Duration of fixation: 77.5 Hrs; Sample Adequate: Yes. These assays have not been validated on decalcified tissues. Results should be interpreted with caution given the likelihood of false negativity on decalcified specimens. These tests were developed and their performance characteristics determined by [facility]. They may not have been cleared or approved by the U.S. Food and Drug Administration. The FDA has determined that such clearance or approval is not necessary. The above immunohistochemical/dualISH markers are ordered and reviewed by the Pathologist. INTERPRETATION: A. Left breast tissue, biopsy: Invasive ductal carcinoma, grade 3/3. Positive for estrogen receptors (favorable prognostic indicator). Positive for progesterone receptors (favorable prognostic indicator). Equivocal for overexpression of RGV2jdi. B. Left axillary tissue, biopsy: Consistent with metastatic breast carcinoma. AM:[place] 11/01/2021 ADDENDUM ADDENDUM ADDENDUM ADDENDUM ADDENDUM ADDENDUM ADDENDUM ADDENDUM ADDENDUM ADDENDUM ADDENDUM ADDENDUM ADDENDUM ADDENDUM ADDENDUM ADDENDUM ADDENDUM ADDENDUM ADDENDUM ADDENDUM ADDENDUM ADDENDUM 11/07/2021 12:01 ADDENDUM 11/07/2021 12:01 ADDENDUM 11/07/2021 12:01 ADDENDUM 11/07/2021 12:01 ADDENDUM 11/07/2021 12:01 IN SITU HYBRIDIZATION (JOSE E) FOR HER2 Interpretation: Not Amplified HER2 : CEP-17 Ratio: 1.35 Average HER2 Signal: 3.05 Average CEP-17 Signal: 2.25 Number of Tumor Cells Scanned: 50 Interpretative Information: The INFORM HER2 Dual JOSE E DNA Probe Cocktail assay is performed on formalin-fixed paraffin embedded tissue and determines HER2 gene status by detecting HER2 copies via silver in situ hybridization (SISH) and Chromosome 17 copies via chromogenic red in situ hybridization on tumor cells. A minimum of 20 cells representing > 10% of contiguous and homogeneous invasive tumor cells were analyzed. HER2 gene status is classified as Non-amplified (HER2/Chr17 ratio < 2.0) or Amplified (HER2/Chr17 ratio greater than or equal to 2.0). If the resulting HER2/Chr17 ratio falls within 1.8 - 2.2 (Borderline), retesting by FISH is recommended. Reference: Aiyana AC, Ceasar MAYES, Jinny SHETH, et al: Recommendations for Human Epidermal Growth Factor Receptor 2 Testing in Breast Cancer: [place] Society of Clinical On[employer] / College of [place] [employer] Clinical Practice Guideline Update. J Clin Oncol 31:9582-5118, 2013. AM:[place] 11/07/2021
--- NOTE | 2021-10-27 | BRBX_PTH ---
PATIENT: ANAY CHAIREZ LOC: [facility] U#:[id number] AGE/SX: 76/F ROOM: RE10/27/[address]: Dr. Jeffry Rosario MD : 1945 BED: DIS: 10/27/2021 SPEC #: [id number] RECD: 10/27/21 15:29 STATUS: BISHOP RELucas #: [id number] CARMELLA: 10/27/21 00:[address]: Jeffry Rosario DEPT: SURGICAL PATHOLOGY RECD BY: Jagdeep Mann ENTERED: 10/28/21 08:14 SP TYPE: BREAST BX OTHR DR: Kortney Mcgee, SUBMARINE ADVISORY TEAM WATCH OFFICER-Jean Marie Tissues: A - Left breast, NOS B - Axillary lymph node, NOS Procedures: Surgery Specimen Level IV HEADER OPERATION: Left breast biopsy and left axilla PRE-OP DIAGNOSIS: Abnormal mammogram TISSUE SUBMITTED: A ? Left breast tissue, B ? Left axillary tissue MICROSCOPIC DIAGNOSIS A. Left breast, core biopsy: Invasive ductal carcinoma with the follow characteristics: Nuclear grade ? 3/3 Maximal length ? 13 millimeters See comment. B. Left axillary tissue, core biopsy: Metastatic carcinoma consistent with breast primary. See comment. AM:[place] 10/31/2021 COMMENT A. ER/CO/Dew1wdd studies are being performed on sections of tumor and the results from this study will be reported separately ([id number]). B. Immunohistochemistry ([id number]) supports the above diagnosis. Case has been reviewed in consultation with Dr. Johnson who concurs with the above diagnosis. IDC:SJ MICROSCOPIC DESCRIPTION Slides are reviewed. GROSS DESCRIPTION A - Received in fixative is one container labeled with the patient's name and designated left breast. The specimen consists of an elongated piece of solitario soft tissue measuring 1.7 cm in length and 0.1 cm in diameter. The entire specimen is submitted in one cassette. B - Received in fixative is one container labeled with the patient's name and designated left axilla. The specimen consists of an elongated piece of solitario soft tissue measuring 1.2 cm in length and 0.1 cm in diameter. The entire specimen is submitted in one cassette. / SJ:rg 10/28/2021 TC:0 [facility]: [id number] x2 ADDENDUM ADDENDUM ADDENDUM ADDENDUM ADDENDUM ADDENDUM ADDENDUM ADDENDUM ADDENDUM ADDENDUM ADDENDUM ADDENDUM 12/13/2021 12:15 ADDENDUM 12/13/2021 12:15 ADDENDUM 12/13/2021 12:15 ADDENDUM 12/16/2024 08:36 ADDENDUM 12/13/2021 12:15 ADDENDUM 12/13/2021 12:15 This addendum is added to incorporate an outside pathology consultation report. The case was examined at [facility] (#[id number]) and the following diagnosis was rendered. A. Left breast, core needle biopsy: Invasive ductal carcinoma, provisional Britt grade 3. B. Left axillary tissue, core needle biopsy: Metastatic carcinoma. Please see complete above mentioned consultation report in EMR [facility] ADVANCED BREAST CANCER NGS PANEL REPORT FROM [employer] RESULT SUMMARY: ABNORMAL TUMOR TYPE: Ductal carcinoma CLINICAL INFORMATION: Left breast core biopsy showed ductal carcinoma (Nuclear grade 3/3, maximal length 13mm) (Testing performed on [id number]). HISTOPATHOLOGIC REVIEW: Tumor is present and is estimated to comprise 20-50% of nuclei in the sample. DETECTED GENOMIC ALTERATION: Tier I: Variants of strong clinical significance BRCA2 p. ([id number]) TP53 p. ([id number]) IMMUNOTHERAPY BIOMARKERS: TUMOR MUTATION BURDEN: HIGH (11 MUTATIONS / MB) MICROSATELLITE INSTABILITY: MSI NEGATIVE (0.83%) Please see complete report in e-chart or EMR
== END 2021-10-27 23:59 | disposition short-term general hospital (02) ==
LOC: LABSPEC 15:33
PROVIDERS: PCP Nurse Practitioner Family; Visit Provider Surgery
DX: C50.912 Malignant neoplasm of unspecified site of left female breast (principal); C77.3 Secondary and unspecified malignant neoplasm of axilla and upper limb lymph nodes
CPT/HCPCS: 88305; 88341; 88342; 88368

== ENCOUNTER 2021-11-04 09:41 | Outpatient (CLI) | payer MEDICARE, BC, SELFPAY ==
--- NOTE | 2021-11-04 09:43 | NM_ITS ---
CLINICAL: 76-year-old female with reported history of carcinoma of the breast. WHOLE BODY 99m Tc MDP RADIONUCLIDE BONE SCINTIGRAPHY COMPARISON: None available FINDINGS: Following the intravenous administration of 25.0 mCi of 99m Tc MDP, whole body bone images reveal: 1. Increased radiopharmaceutical concentration is defined in the mid cervical spine posteriorly on the left and right, fifth-10th thoracic vertebra, fourth-fifth lumbar vertebra, the acromioclavicular compartments of both shoulders, glenohumeral compartment of the left shoulder, right elbow and wrist, right hand, right hip, patellofemoral compartments of both knees. 2. The remaining skeletal structures are scintigraphically unremarkable with normal-appearing renal images and urinary bladder activity identified. Right and left presumably asymptomatic knee arthroplasties are defined without evidence of significant increased tracer uptake. There is an increase in radiopharmaceutical activity defined in the greater trochanteric aspect of the bilateral proximal femurs most consistent with periostitis and/or trochanteric bursitis. NM/Bone Scan Whole Body IMPRESSION: 1. The increase in radiopharmaceutical concentration identified in the cervical, thoracic and lumbar spine, bilateral shoulders, right elbow, right wrist and hand, the right hip, patellofemoral compartments of the bilateral knees (in the absence of patellar hardware placement), is most consistent with degenerative arthritis. 2. There is no definitive typical scintigraphic evidence of diffuse axial skeletal metastatic disease on the current examination. Electronically Signed: Sumeet Leong DO at 12:20 EST Tel , Service support ,
== END 2021-11-04 23:59 | disposition short-term general hospital (02) ==
LOC: NM 09:42
PROVIDERS: PCP Nurse Practitioner Family; Referring Provider Internal Medicine Medical Oncology; Visit Provider Internal Medicine Medical Oncology
DX: C50.912 Malignant neoplasm of unspecified site of left female breast (principal); C77.3 Secondary and unspecified malignant neoplasm of axilla and upper limb lymph nodes
CPT/HCPCS: 78306; A9503

== ENCOUNTER 2021-11-07 07:38 | Outpatient (CLI) | payer MEDICARE, BC, SELFPAY ==
--- NOTE | 2021-11-07 07:39 | CT_ITS ---
STUDY: CT CHEST WITH CONTRAST REASON FOR EXAM: Female, 76 years old. STAGING METASTATIC BREAST CA. Newly diagnosed left breast cancer. RADIATION DOSAGE (If Supplied By Facility): CTDIvol = ( 10.68 ) mGy, DLP = ( 415.34 ) mGycm TECHNIQUE: Transaxial imaging was performed following intravenous administration of IV 100mL Isovue-300. Multiplanar coronal and sagittal images were reformatted. Individualized dose optimization techniques were used for this CT. COMPARISON: None. FINDINGS: Heterogeneous enlargement of the right and left lobe of the thyroid gland with cystic changes. There is evidence of a calcified nodule in the right lobe of the gland measuring 7 mm. There is substernal extension of the left lobe of the thyroid. There is enlargement of the left axillary lymph nodes. The largest lymph node measures 2.7 cm x 2.4 cm. A tissue clip marker appears to be within the lymph nodes in keeping with prior biopsy. This also evidence of a 3.4 cm x 3.7 cm irregular nodular density in the deep medial inferior aspect of the left breast. A tissue clip marker is seen within it. The lungs are normal. There is no demonstrated pleural abnormality. There are calcifications of the coronary arteries. Normal mediastinum. Normal hilar regions. Normal enhanced pulmonary arteries. Normal aorta arch and descending thoracic aorta. There are multi-level degenerative changes of the thoracic spine. Small hiatal hernia. CT/Chest WITH Contrast IMPRESSION: Heterogeneous enlargement of both lobes of the thyroid gland with a substernal extension of the left lobe. Calcified nodule in the right lobe. 3.4 cm x 3.7 cm irregular nodular density in the deep medial inferior aspect of the left breast. A tissue clip marker seen within the period is also evidence of enlargement of the left axillary lymph nodes. Electronically Signed: Jones Rider MD at 8:40 EST , Service support ,
--- NOTE | 2021-11-07 07:39 | ECHODONC_ITS ---
Reason For Study: PRE CHEMO Procedure This was a 2D Doppler, Color Flow transthoracic echocardiogram. Myocardial strain analysis was performed in this exam to aid in the assessment of cardiac function. Exam performed in department. Left Ventricle Normal LV size. Left ventricular systolic function is normal. The estimated ejection fraction is 60 %. Stage 1 diastolic dysfunction. No regional wall motion abnormalities noted. Right Ventricle Normal RV size. Normal systolic function. Atria The left atrium is mildly enlarged. Normal right atrium. Mitral Valve Normal mitral valve. Tricuspid Valve Normal tricuspid valve. Mild (1+) tricuspid valve insufficiency. Pulmonary artery systolic pressure is 34 mmHg. Aortic Valve Trisinus/trileaflet aortic valve. Mild focal aortic valve calcification. Pulmonic Valve Normal pulmonic valve. Great Vessels Normal aortic root. The pulmonary artery is normal size. Normal inferior vena cava. Pericardium/Pleural No pericardial effusion. MMode/2D Measurements & Calculations LVIDd: 4.8 cm IVSd: 0.93 cm Ao root diam: 3.0 cm LVIDs: 3.1 cm LVPWd: 0.96 cm RVDd: 2.9 cm FS: 35.1 % LAV(MOD-bp): 60.3 ml LA A4 area: 20.6 cm2 LA dimension(2D): 4.0 cm LAV(MOD-bp) Indexed: 36.5 ml/m2 LAV(MOD-sp2): 59.9 ml LAV(MOD-sp4): 59.9 ml RA A4 area: 11.9 cm2 Time Measurements MV dec time: 0.20 sec Doppler Measurements & Calculations MV E max lai: 72.9 cm/sec Lat Peak E' Lai: 9.9 cm/sec Med Peak E' Lai: 7.6 cm/sec MV A max lai: 91.2 cm/sec E/E' lat: 7.3 E/E' med: 9.6 MV E/A: 0.80 Ao V2 max: 120.6 cm/sec LV V1 max: 97.5 cm/sec PA V2 max: 77.5 cm/sec Ao max P.8 mmHg LV V1 max P.8 mmHg PI dec slope: 131.2 cm/sec2 TR max lai: 277.0 cm/sec TR max P.7 mmHg ECHO/ONC Echo Complete Interpretation Summary Normal LV size. Left ventricular systolic function is normal. The estimated ejection fraction is 60 %. Stage 1 diastolic dysfunction. Pulmonary artery systolic pressure is 34 mmHg. The global longitudinal strain is normal. The global longitudinal strain = -18. 8 % (normal). Ordering Physician: Alex Love Performed By: Evie Medrano RDCS, RVT
== END 2021-11-07 23:59 | disposition short-term general hospital (02) ==
LOC: CT 07:38
PROVIDERS: PCP Nurse Practitioner Family; Referring Provider Internal Medicine Medical Oncology; Visit Provider Internal Medicine Medical Oncology
DX: Z01.810 Encounter for preprocedural cardiovascular examination (principal); C50.912 Malignant neoplasm of unspecified site of left female breast
CPT/HCPCS: 71260; 93306; 93356; Q9967

== ENCOUNTER 2021-11-21 07:13 | Outpatient (CLI) | payer MEDICARE, BC, SELFPAY ==
--- NOTE | 2021-11-21 07:14 | MRI_ITS ---
HISTORY: Breast cancer staging, no neuro symptoms. TECHNIQUE: Multiplanar and multisequence MR images of the brain were obtained without and with IV gadolinium. IV Contrast dosage and agent: 13 mL Dotarem. # of images incl. paperwork: [phone]. COMPARISON: 01/17/2021. FINDINGS: BRAIN PARENCHYMA: Increased T2 FLAIR signal in the bilateral cerebral white matter again seen. No abnormal focus of restricted diffusion. No enhancing lesion in the brain parenchyma. INTRACRANIAL HEMORRHAGE: No acute intracranial hemorrhage. CSF SPACES: Mild generalized volume loss. No midline shift or other significant mass effect. No extra-axial fluid collection. VESSELS: Major intracranial flow voids maintained. ORBITS: Bilateral lens resections. OTHER: Fluid in the right mastoid air cells. MRI/Brain W/WO Contrast IMPRESSION: No evidence of enhancing intracranial mass, acute infarct, or acute intracranial hemorrhage. Chronic involutional and white matter changes. at 1257 Reported and signed by: Mercedes Porter MD Electronically Signed: Mercedes Porter MD at 12:56 EST ,
== END 2021-11-21 23:59 | disposition home or self-care (01) ==
LOC: MRI 07:14
PROVIDERS: PCP Nurse Practitioner Family; Referring Provider Internal Medicine Medical Oncology; Visit Provider Internal Medicine Medical Oncology
DX: C50.919 Malignant neoplasm of unspecified site of unspecified female breast (principal)
CPT/HCPCS: 70553; A9575

== ENCOUNTER 2022-01-09 15:13 | Outpatient (CLI) | payer MEDICARE, BC, SELFPAY | END 2022-01-09 23:59 | disposition home or self-care (01) | LOC: MFPLAB 15:14 | PROVIDERS: PCP Nurse Practitioner Family; Visit Provider Nurse Practitioner Family | DX: R39.89 Other symptoms and signs involving the genitourinary system (principal) | CPT/HCPCS: 87086; 87088; 87186 ==

== ENCOUNTER → 2022-04-01 | Outpatient (CLI) | payer MEDICARE, BC, SELFPAY ==
[2022-04-01 10:25] LABS: AST(SGOT) 15 U/L (15-37); Alanine Aminotransfer ALT/SGPT 15 U/L (13-56); Albumin, Serum 3.3 g/dL (3.2-5.0); Alkaline Phosphatase 70 U/L (45-117); Bilirubin, Direct 0.15 mg/dL (0.00-0.30); Cholesterol 171 mg/dL (200); Globulin 3.3 g/dL (2.2-4.2); High Density Lipoprotein 63 mg/dL; Protein, Total 6.6 g/dL (6.4-8.2); Triglycerides 65 mg/dL; Very Low Density Lipoprotein 13 mg/dL (5-40)
== END | disposition home or self-care (01) ==
PROVIDERS: PCP Nurse Practitioner Family; Referring Provider Internal Medicine Cardiovascular Disease; Visit Provider Internal Medicine Cardiovascular Disease
DX: E78.00 Pure hypercholesterolemia, unspecified (principal)
CPT/HCPCS: 36415; 80061; 80076

== ENCOUNTER → 2022-07-14 | Outpatient (CLI) | payer MEDICARE, BC, SELFPAY ==
--- NOTE | 2022-07-14 09:50 | RAD_ITS ---
INDICATION: left hip pain EXAMINATION/TECHNIQUE: X-RAY - LEFT XR Hip Unilateral with Pelvis when performed; 2-3 Views 3 VIEWS COMPARISON: Bone scan 11/04/2021 and PET/CT 11/16/2021 FINDINGS: SOFT TISSUES: No soft tissue swelling or gas. No radiopaque foreign body. Left iliac artery calcifications BONES/JOINTS: No acute fracture or malalignment. There are degenerative changes right, greater than left bilateral hips and at the symphysis pubis and sacroiliac joints. Significant degenerative changes distal lumbar spine. No sclerotic or destructive changes observed. Chronic enthesopathic changes greater tuberosities. RAD/HIP, UNI W/ Pelvis 2-3 Views IMPRESSION: No fracture or focal osseous lesion. Degenerative changes as above. Electronically Signed: David Quintero DO at 20:30 EDT ,
== END | disposition home or self-care (01) ==
LOC: MTRAD 09:48
PROVIDERS: PCP Family Medicine; Referring Provider Psychiatry & Neurology Neurology; Visit Provider Psychiatry & Neurology Neurology
DX: M25.552 Pain in left hip (principal)
CPT/HCPCS: 73502

== ENCOUNTER → 2023-04-03 | Outpatient (CLI) | payer MEDICARE, BC, SELFPAY ==
[2023-04-03 11:22] LABS: Absolute Lymphocyte Count 2.06 X10^3/uL (0.83-4.51); Absolute Neutrophil Count 4.2 X10^3/uL (2.0-7.7); Basophil# 0.07 X10^3/uL; Eosinophils% 2.8 % (0-5); Hematocrit 39.2 % (37-47); Hemoglobin 12.3 g/dL (12.0-15.0); Lymphocyte # 2.06 X10^3/ul (0.83-4.51); Lymphocyte % 28.8 % (19-41); Mean Corp Hgb Conc 31.4 g/dL (32-36); Mean Corpuscular Hgb 30.4 pg (27.0-32.0); Mean Platelet Vol. 8.4 fl (6.2-12.0); Monocyte# 0.65 X10^3/uL; Monocyte% 9.1 % (0-10); NRBC Flagged by Analyzer 0 % (0-5); Neutrophil # 4.15 X10^3/uL (2.7-7.7); Platelet Count 241 K/mm3 (150-450); RBC Distribution Width CV 13.5 % (11.6-14.6); RBC Distribution Width SD 47.9 fl (35.1-43.9); Red Blood Count 4.04 M/mm3 (4.2-5.4); White Blood Count 7.2 K/mm3 (4.4-11.0)
[2023-04-03 12:23] LABS: Anion Gap 3 (5-15); BUN 18 mg/dL (7-18); BUN/Creat Ratio 19.2 RATIO (10-20); Calcium,Total 9.3 mg/dL (8.5-10.1); Chloride 108 mmol/L (98-107); Creatinine, Serum 0.94 mg/dL (0.55-1.02); EST Glomerular Filtration Rate 61 mL/min (>60); Est Glom Filt Rate - Afr Amer 74 mL/min (>60); Free T3 2.7 pg/mL (2.18-3.98); Glucose 96 mg/dL (74-106); Potassium 4.5 mmol/L (3.5-5.1); Sodium Level 139 mmol/L (136-145); T4 Free Direct 1.14 ng/dL (0.76-1.46); Thyroid Stim Hormone (TSH) 0.28 uIU/mL (0.358-3.74)
== END | disposition home or self-care (01) ==
LOC: LAB 11:01
PROVIDERS: PCP Family Medicine; Referring Provider Nurse Practitioner Gerontology; Visit Provider Nurse Practitioner Gerontology
DX: R53.83 Other fatigue (principal)
CPT/HCPCS: 36415; 80048; 84439; 84443; 84481; 85025

== ENCOUNTER → 2023-04-23 | Outpatient (CLI) | payer MEDICARE, BC, SELFPAY ==
--- NOTE | 2023-04-23 11:44 | EKG12_ITS ---
Test Reason : HIGH RISK MEDS Blood Pressure : / mmHG Vent. Rate : 072 BPM Atrial Rate : 072 BPM P-R Int : 132 ms QRS Dur : 066 ms QT Int : 382 ms P-R-T Axes : 038 013 023 degrees QTc Int : 418 ms Normal sinus rhythm Normal ECG Confirmed by VICKIE BALDWIN, URVASHI ([id number]), editor continuity and script LEONOR GUTIERREZ ([id number]) on 04/24/2023 8:26:50 AM Referred By: Alex Love Confirmed By:URVASHI JOHNSTON MD
== END | disposition home or self-care (01) ==
LOC: PSN 11:43
PROVIDERS: PCP Family Medicine; Referring Provider Internal Medicine Medical Oncology; Visit Provider Internal Medicine Medical Oncology
DX: Z79.899 Other long term (current) drug therapy (principal)
CPT/HCPCS: 93005

== ENCOUNTER → 2023-05-07 | Outpatient (CLI) | payer MEDICARE, BC, SELFPAY ==
--- NOTE | 2023-05-07 11:45 | EKG12_ITS ---
Test Reason : MEDICATION Blood Pressure : / mmHG Vent. Rate : 061 BPM Atrial Rate : 061 BPM P-R Int : 156 ms QRS Dur : 068 ms QT Int : 436 ms P-R-T Axes : 014 008 022 degrees QTc Int : 438 ms Normal sinus rhythm Normal ECG When compared with ECG of 23-APR-2023 11:50, No significant change was found Confirmed by VICKIE BALDWIN, URVASHI ([id number]), video news editor LEONOR GUTIERREZ ([id number]) on 05/08/2023 7:28:08 AM Referred By: Alex Love Confirmed By:URVASHI JOHNSTON MD
== END | disposition home or self-care (01) ==
LOC: PSN 11:44
PROVIDERS: PCP Family Medicine; Referring Provider Internal Medicine Medical Oncology; Visit Provider Internal Medicine Medical Oncology
DX: Z79.899 Other long term (current) drug therapy (principal)
CPT/HCPCS: 93005

== ENCOUNTER 2023-05-17 09:55 | Outpatient (CLI) | payer MEDICARE, BC, SELFPAY ==
[2023-05-17 12:49] LABS: Vitamin D,25 Hydroxy 79.3 ng/mL
[2023-05-17 12:55] LABS: Hemoglobin A1c 5.8 % (3.8-5.6)
[2023-05-17 13:26] LABS: Cholesterol 140 mg/dL (200); Free T3 2.5 pg/mL (2.18-3.98); High Density Lipoprotein 62 mg/dL; T4 Free Direct 1.16 ng/dL (0.76-1.46); Thyroid Stim Hormone (TSH) 0.34 uIU/mL (0.358-3.74); Triglycerides 69 mg/dL; Very Low Density Lipoprotein 14 mg/dL (5-40)
[2023-05-23 16:09] LABS: Anti-Thyroglobulin AB < 1.0 IU/mL (0.0-0.9); Thyroglobulin, Serum Qt. 25.6 ng/mL (1.5-38.5); Thyroid Peroxidase AB < 9 IU/mL (0-34)
== END 2023-05-17 23:59 | disposition home or self-care (01) ==
LOC: MFPLAB 09:56
PROVIDERS: PCP Family Medicine; Visit Provider Family Medicine
DX: E66.01 Morbid (severe) obesity due to excess calories (principal); R79.89 Other specified abnormal findings of blood chemistry; E55.9 Vitamin D deficiency, unspecified
CPT/HCPCS: 36415; 80061; 82306; 83036; 84432; 84439; 84443; 84481; 86376; 86800

== ENCOUNTER → 2023-05-21 | Outpatient (CLI) | payer MEDICARE, BC, SELFPAY ==
--- NOTE | 2023-05-21 11:43 | EKG12_ITS ---
Test Reason : MEDICATIONS Blood Pressure : / mmHG Vent. Rate : 065 BPM Atrial Rate : 065 BPM P-R Int : 144 ms QRS Dur : 066 ms QT Int : 404 ms P-R-T Axes : 019 013 025 degrees QTc Int : 420 ms Normal sinus rhythm Normal ECG Confirmed by VICKIE BALDWIN, URVASHI ([id number]), film editor LEONOR GUTIERREZ ([id number]) on 05/22/2023 9:33:25 AM Referred By: Alex Love Confirmed By:URVASHI JOHNSTON MD
== END | disposition home or self-care (01) ==
LOC: PSN 11:43
PROVIDERS: PCP Family Medicine; Referring Provider Internal Medicine Medical Oncology; Visit Provider Internal Medicine Medical Oncology
DX: Z79.899 Other long term (current) drug therapy (principal)
CPT/HCPCS: 93005

== ENCOUNTER → 2023-10-04 | Outpatient (CLI) | payer MEDICARE, BC, SELFPAY ==
--- NOTE | 2023-10-04 12:57 | CT_ITS ---
STUDY: CT CHEST T ABDOMEN WITH CONTRAST REASON FOR EXAM: Female, 78 years old. IV ONLY, ASSESING TX FOR BREAST CANCER. Left breast cancer. RADIATION DOSAGE (If Supplied By Facility): CTDIvol = ( 20.33 ) mGy, DLP = ( 1484.64 ) mGycm TECHNIQUE: Transaxial imaging was performed following intravenous administration of IV 100mL Isovue-300. Multiplanar coronal and sagittal images were reformatted. Individualized dose optimization techniques were used for this CT. COMPARISON: Comparison is made with prior study dated May 07, 2022. FINDINGS: CHEST Heterogeneous enlargement with the cystic and calcific changes seen in both lobes of the thyroid slightly more prominent on the left side. Left substernal extension. Stable mildly enlarged lymph nodes in the left axilla. There is a 3 cm x 3.5 cm heterogeneous mass in the deep medial aspect of the left breast in the mid level. Diffuse overlying skin thickening of the left breast. A tissue clip marker seen within it. The lungs are normal. There is no demonstrated pleural abnormality. There are calcifications of the coronary arteries. Normal mediastinum. Normal hilar regions. Normal unenhanced pulmonary arteries. Normal aorta arch and descending thoracic aorta. There are multi-level degenerative changes of the thoracic spine. ABDOMEN There is decreased attenuation of the liver consistent with steatosis. The gallbladder is contracted. Normal spleen. Normal pancreas. Normal bilateral adrenal glands. Normal right kidney. Normal left kidney. Normal visualized stomach. Normal small intestine. There are multiple colonic diverticula consistent with diverticulosis. The appendix is visualized and appears normal. There is scattered atherosclerotic calcification of the abdominal aorta, without a demonstrated aneurysm. Normal inferior vena cava. Normal retroperitoneum. Normal abdominal wall. There are degenerative changes of the visualized lumbar spine. CT/CT Chest AND Abd W/ Contrast IMPRESSION: Mildly enlarged left axillary lymph nodes. Stable heterogeneous mass in the deep medial aspect of the left breast. Diffuse overlying skin thickening. Fatty infiltration of the liver. Sigmoid diverticulosis. Electronically Signed: Jones Rider MD at 15:00 EST ,
== END | disposition home or self-care (01) ==
LOC: CT 12:56
PROVIDERS: PCP Family Medicine; Referring Provider Internal Medicine Medical Oncology; Visit Provider Internal Medicine Medical Oncology
DX: C50.912 Malignant neoplasm of unspecified site of left female breast (principal); C77.3 Secondary and unspecified malignant neoplasm of axilla and upper limb lymph nodes
CPT/HCPCS: 71260; 74160; Q9967

== ENCOUNTER → 2024-03-18 | Outpatient (CLI) | payer MEDICARE, BC, SELFPAY ==
--- NOTE | 2024-03-18 10:53 | RAD_ITS ---
INDICATION: nasal injury EXAMINATION/TECHNIQUE: X-RAY - XR Nasal Bones Min 3 Views COMPARISON: None. FINDINGS: SOFT TISSUES: No soft tissue swelling or gas. No radiopaque foreign body. No layering air-fluid levels within the paranasal sinuses. BONES/TMJs: No cortical step-off seen along the nasal bones or orbits. Complete absence of the dilatation. No sclerotic or destructive changes observed. RAD/Nasal Bones min 3 Views IMPRESSION: No acute osseous finding.. Electronically Signed: Ander Cabrera MD at 19:06 EDT ,
== END | disposition home or self-care (01) ==
LOC: MTRAD 10:53
PROVIDERS: PCP Family Medicine; Referring Provider Family Medicine; Visit Provider Family Medicine
DX: S09.92XA Unspecified injury of nose, initial encounter (principal); X58.XXXA Exposure to other specified factors, initial encounter
CPT/HCPCS: 70160

== ENCOUNTER → 2024-04-21 | Outpatient (CLI) | payer MEDICARE, BC, SELFPAY ==
--- NOTE | 2024-04-21 12:16 | CT_ITS ---
STUDY: CT CHEST T ABDOMEN WITH CONTRAST REASON FOR EXAM: Female, 78 years old. MONITOR METASTATIC BREAST CA RADIATION DOSAGE (If Supplied By Facility): CTDIvol = ( 21.53 ) mGy, DLP = ( 2517.70 ) mGycm TECHNIQUE: Transaxial imaging was performed following intravenous administration of IV-100 ML ISOVUE 370. Multiplanar coronal and sagittal images were reformatted. Individualized dose optimization techniques were used for this CT. COMPARISON: Comparison is made with prior study dated October 04, 2023. FINDINGS: CHEST Heterogeneous enlargement of the right lobe of the thyroid gland with calcification. Heterogeneous appearance of the isthmus of the thyroid as well as the left lobe of the thyroid with substernal extension. Stable mild enlargement of the left axillary lymph nodes. Postoperative changes are seen in the deep portion of the left breast. There is evidence of skin thickening overlying the left breast as well as a 3 cm x 3.5 cm rounded soft tissue density most likely representing either postoperative change or mass. This is essentially unchanged. Stable increased linear markings in the anterior aspect of the left upper lobe most likely secondary to prior radiation and scarring. There is no demonstrated pleural abnormality. There are calcifications of the coronary arteries. Normal mediastinum. Normal hilar regions. Normal unenhanced pulmonary arteries. Normal aorta arch and descending thoracic aorta. There are multi-level degenerative changes of the thoracic spine. Degenerative changes of the left shoulder. ABDOMEN There is decreased attenuation of the liver consistent with steatosis. There are surgical clips in the gallbladder fossa consistent with a prior cholecystectomy. Normal spleen. There is diffuse atrophy of the pancreas. Normal bilateral adrenal glands. Normal right kidney. Normal left kidney. There is a small hiatal hernia. Normal small intestine. There are multiple colonic diverticula consistent with diverticulosis. The appendix is visualized and appears normal. There is scattered atherosclerotic calcification of the abdominal aorta, without a demonstrated aneurysm. Normal inferior vena cava. Normal retroperitoneum. Normal abdominal wall. There are diffuse degenerative changes of the visualized lumbar spine. CT/CT Chest AND Abd W/ Contrast IMPRESSION: Stable examination. Electronically Signed: Jones Rider MD at 15:22 EDT ,
[2024-04-21 12:44] LABS: CREATININE FINGERSTICK < 1.0 mg/dL (0.55-1.02); EGFR FINGERSTICK > 60.0000 mL/min (>60)
[2024-04-21 13:54] LABS: Absolute Lymphocyte Count 1.44 X10^3/uL (0.83-4.51); Absolute Neutrophil Count 3.5 X10^3/uL (2.0-7.7); Basophil# 0.05 X10^3/uL; Basophil% 0.9 % (0-1); Eosinophil# 0.09 X10^3/uL; Eosinophils% 1.6 % (0-5); Hematocrit 35.9 % (37-47); Hemoglobin 11.3 g/dL (12.0-15.0); Lymphocyte # 1.44 X10^3/ul (0.83-4.51); Lymphocyte % 26.2 % (19-41); Mean Corp Hgb Conc 31.5 g/dL (32-36); Mean Corpuscular Volume 98.4 fL (81-99); Mean Platelet Vol. 8.7 fl (6.2-12.0); Monocyte# 0.43 X10^3/uL; Monocyte% 7.8 % (0-10); NRBC Flagged by Analyzer 0 % (0-5); Neutrophil # 3.47 X10^3/uL (2.7-7.7); Neutrophil % 63.3 % (47-70); Platelet Count 169 K/mm3 (150-450); RBC Distribution Width SD 50.7 fl (35.1-43.9); Red Blood Count 3.65 M/mm3 (4.2-5.4); White Blood Count 5.5 K/mm3 (4.4-11.0)
[2024-04-21 14:33] LABS: AST(SGOT) 11 U/L (15-37); Alanine Aminotransfer ALT/SGPT 16 U/L (13-56); Albumin, Serum 3.2 g/dL (3.2-5.0); Alkaline Phosphatase 43 U/L (45-117); Anion Gap 3 (5-15); BUN 17 mg/dL (7-18); BUN/Creat Ratio 22.5 RATIO (10-20); Calcium,Total 8.3 mg/dL (8.5-10.1); Chloride 107 mmol/L (98-107); Creatinine, Serum 0.76 mg/dL (0.55-1.02); EST Glomerular Filtration Rate 78 mL/min (>60); Est Glom Filt Rate - Afr Amer 95 mL/min (>60); Globulin 3.1 g/dL (2.2-4.2); Glucose 93 mg/dL (74-106); LDH 211 U/L (84-246); Potassium 4.2 mmol/L (3.5-5.1); Protein, Total 6.3 g/dL (6.4-8.2); Sodium Level 137 mmol/L (136-145)
[2024-04-23 08:11] LABS: CA 15-3 19.3 U/mL (0.0-25.0); CA 27.29 18.2 U/mL (0.0-38.6)
== END | disposition home or self-care (01) ==
PROVIDERS: PCP Family Medicine; Referring Provider Internal Medicine Medical Oncology; Visit Provider Internal Medicine Medical Oncology
DX: C50.912 Malignant neoplasm of unspecified site of left female breast (principal)
CPT/HCPCS: 36415; 71260; 74160; 80053; 83615; 85025; 86300; Q9967

== ENCOUNTER → 2024-11-27 | Outpatient (CLI) | payer MEDICARE, BC, SELFPAY ==
--- NOTE | 2024-11-27 17:48 | CT_ITS ---
PROCEDURE: CT CHEST AND ABD W/ CONTRAST REASON FOR EXAM: Metastatic breast cancer. Left breast mass. Metastasis to axillary lymph nodes. TECHNIQUE: Chest and abdomen CT with intravenous contrast. Coronal and sagittal 2D reformatted images were provided. COMPARISON: CT chest and abdomen from 04/21/2024. FINDINGS: CT CHEST: Cardiac size is within normal limits. Thoracic aorta demonstrates normal caliber. Coronary artery calcifications are present. No mediastinal or hilar lymphadenopathy is identified. There are few small left axillary lymph nodes. No pericardial or pleural effusions identified. Again identified is a heterogeneous thyroid gland with multiple nodules with the left thyroid lobe extending into the left superior mediastinum and is unchanged. There are post treatment changes of the left breast with associated diffuse skin thickening and edematous changes of the left breast. There is redemonstration of a heterogeneous masslike density along the medial aspect of the left breast measuring approximately 3.5 x 2.9 cm in the AP and transverse dimensions respectively and previously measured 2.8 x 3.6 cm in the AP and transverse dimensions respectively. There is redemonstration of a soft tissue nodular masslike density along the left major pectoralis muscle (image 20 of 111) measuring approximately 2.4 cm in AP dimension and is similar to the prior exam. Evaluation of the lung parenchyma demonstrates subpleural increased linear markings in anterolateral aspect of the left upper lobe likely an old post therapeutic basis. No suspicious pulmonary nodule or pleural/parenchymal based mass is identified. Central airway is patent. Evaluation of the osseous structures demonstrates no acute findings. Advanced degenerative changes of the thoracic spine are present. There is mild dextroscoliosis of the thoracic spine. CT ABDOMEN: The liver and spleen enhance homogeneously. Gallbladder is surgically absent. There is a small hiatal hernia. There is diffuse atrophy of the pancreas. Bilateral adrenal glands are unremarkable. Abdominal aorta demonstrates normal caliber with atherosclerotic calcifications. No lymphadenopathy is identified. Bilateral kidneys enhance homogeneously without hydronephrosis. No free air or free fluid is seen within the abdomen. There is partial visualization of colonic diverticulosis without diverticulitis. Evaluation of the osseous structures demonstrates degenerative changes. CT/CT Chest AND Abd W/ Contrast IMPRESSION: 1. Redemonstration of post therapeutic changes of the left breast with associat ed skin thickening. There is redemonstration of a heterogeneous masslike density along the medial aspect of the left breast measu ring 3.5 x 2.9 cm and previously measured 2.8 x 3.6 cm and may relate to malignancy. 2. Redemonstration of a soft tissue nodular masslike density along the left yanelis or pectoralis muscle which is similar as compared to the prior exam. Malignancy is not excluded. 3. Stable subpleural interstitial lung markings in the anterior left upper lobe likely on a post therapeutic basis. 4. No lymphadenopathy identified in the chest and abdomen. Few small lymph nod es are seen in the left axillary region. 5. Stable heterogeneous and multinodular thyroid gland with enlargement of the left thyroid lobe which extends into the left superior mediastinum. One or more dose reduction techniques were used (e.g., Automated exposure contr ol, adjustment of the mA and/or kV according to patient size, use of iterative reconstruction technique). Reading Location: [facility]
== END | disposition home or self-care (01) ==
LOC: CT 17:46
PROVIDERS: PCP Family Medicine; Referring Provider Nurse Practitioner Family; Visit Provider Nurse Practitioner Family
DX: C50.812 Malignant neoplasm of overlapping sites of left female breast (principal); C77.3 Secondary and unspecified malignant neoplasm of axilla and upper limb lymph nodes; Z17.0 Estrogen receptor positive status [ER+]
CPT/HCPCS: 71260; 74160; Q9967

== ENCOUNTER → 2025-04-07 | Outpatient (CLI) | payer MEDICARE, BC, SELFPAY ==
--- NOTE | 2025-04-07 09:07 | BD_ITS ---
PROCEDURE: DEXA BONE DENSITY STUDY 04/07/2025 REASON FOR EXAM: F, age 79 y/o . Postmenopausal. TECHNIQUE: DEXA BONE DENSITY STUDY COMPARISON: Prior study dated December 26, 2018. FINDINGS: BMD and T-SCORES Lumbar spine: 0.985 g/cm2, T-score -0.4 Levels: L1 through L4 Change from prior: Loss of 8.8%. Left femoral neck: 0.585 g/cm2, T-score -2.4 Femoral neck comparison data not recommended for monitoring change. Left total hip: 0.718 g/cm2, T-score -1.8 Change from prior: Loss of 9.9%. Right femoral neck: 0.687 g/cm2, T-score -1.5 Femoral neck comparison data not recommended for monitoring change. Right total hip: 0.740 g/cm2, T-score -1.7 Change from prior: Loss of 13.6%. The World Health Organization has defined the following categories based on bone density: Normal bone density: T-score equal to or greater than -1.0 Osteopenia: T-score between -1.0 and -2.5 Osteoporosis: T-score equal to or less than -2.5 The patient does meet the pharmacological treatment recommendations for prevention of osteoporosis. BD/Dexa Bone Density Study IMPRESSION: OSTEOPENIA. Recommend follow-up as clinically warranted. Reading Location: [id number]
== END | disposition home or self-care (01) ==
LOC: OPBD 08:59
PROVIDERS: PCP Family Medicine; Referring Provider Family Medicine; Visit Provider Family Medicine
DX: Z78.0 Asymptomatic menopausal state (principal)
CPT/HCPCS: 77080

== ENCOUNTER 2025-04-08 11:28 | Emergency (ER) | payer MEDICARE, BC, SELFPAY ==
[2025-04-08] VITALS (8 sets, daily range): BP systolic 102–173; BP diastolic 54–93; PULSE 63–78; RESP 18–24; TEMP 35.7–36.6; O2SAT 92–100; BMI 36.6
--- NOTE | 2025-04-08 11:31 | CT_ITS ---
PROCEDURE: STROKE BRAIN/HEAD WITHOUT CONT N/A REASON FOR EXAM: NEURO DEFICIT, ACUTE, STROKE SUSPECTED Left-sided neglect. TECHNIQUE: STROKE BRAIN/HEAD WITHOUT CONT Coronal and Sagittal reconstruction series were provided. One or more dose reduction techniques were used (e.g., Automated exposure control, adjustment of the mA and/or kV according to patient size, use of iterative reconstruction technique. RADIATION DOSE SUMMARY: CTDlvol: 44.99 mGy DLP: 812 mGycm COMPARISON: Prior MRI dated November 21, 2021. FINDINGS: Brain: Low density in the periventricular white matter suggests mild chronic small vessel ischemic changes. CSF Spaces: Mild generalized cerebral atrophy Sinuses/Mastoids: Clear at visualized levels Bones: No acute abnormality. CT/STROKE Brain/Head without Cont IMPRESSION: CHRONIC CHANGES. NO ACUTE FINDINGS. Red Alert: Chronicchanges The critical information above was relayed directly by me by telephone to Shaun Madsen on 04/08/2025 at 11:43 am with readback verification. Reading Location: [id number]
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
--- NOTE | 2025-04-08 11:39 | ED.RN ---
this RN called spouse, he is on his way, attempted to call daughter per request. Voicemail left
[2025-04-08 11:42] LABS: Absolute Lymphocyte Count 1.12 X10^3/uL (0.83-4.51); Absolute Neutrophil Count 2.7 X10^3/uL (2.0-7.7); Basophil# 0.03 X10^3/uL; Basophil% 0.7 % (0-1); Eosinophil# 0.03 X10^3/uL; Eosinophils% 0.7 % (0-5); Hematocrit 29.8 % (37-47); Hemoglobin 10.2 g/dL (12.0-15.0); Lymphocyte # 1.12 X10^3/ul (0.83-4.51); Lymphocyte % 27.7 % (19-41); Mean Corp Hgb Conc 34.2 g/dL (32-36); Mean Corpuscular Hgb 35.8 pg (27.0-32.0); Mean Corpuscular Volume 104.6 fL (81-99); Mean Platelet Vol. 8.8 fl (6.2-12.0); Monocyte# 0.19 X10^3/uL; Monocyte% 4.7 % (0-10); NRBC Flagged by Analyzer 0.5 % (0-5); Neutrophil # 2.65 X10^3/uL (2.7-7.7); Neutrophil % 65.7 % (47-70); POSITIVE MORPHOLOGY YES; Platelet Count 156 K/mm3 (150-450); RBC Distribution Width CV 17.8 % (11.6-14.6); RBC Distribution Width SD 67.8 fl (35.1-43.9); Red Blood Count 2.85 M/mm3 (4.2-5.4)
[2025-04-08 11:45] LABS: Differential Indicated SCAN CRITERIA MET
[2025-04-08 11:53] LABS: Partial Thromboplast Time 21.6 Seconds (24.1-36.2)
[2025-04-08 12:03] LABS: Anisocytosis 2+; Differential Comment SCANNED
[2025-04-08 12:04] LABS: International Normalized Ratio 1.3; Prothrombin Time (Protime)PT. 16.8 SECONDS (11.7-14.9)
[2025-04-08 12:14] LABS: Color, Urine Yellow (Yellow); Glucose, Dipstick Normal (Normal); Ketone-Dipstick Negative (Negative); Leukocyte Esterase-Dipstick 25 /ul (Negative); Mucous, Urine 0 SEEN /hpf (<or=2+); Nitrite-Dipstick Positive (Negative); Occult Blood-Urine 10 /ul (Negative); Protein-Dipstick 30 mg/dl (Negative); Specific Gravity, Urine 1.025 (1.002-1.030); Urine Bilirubin Dipstick Negative (Negative); Urine Clarity Cloudy (Clear); Urine Urobilinogen Normal (Normal)
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
[2025-04-08 12:20] LABS: Red Blood Cells-Urine 0-5 SEEN /hpf (0-5); Squamous Epithelial Cells - UA 0-5 SEEN /hpf (5-10); White Blood Cells 5-10 SEEN /hpf (0-5)
[2025-04-08 12:21] LABS: Bacteria 2+ /hpf (None Seen)
[2025-04-08 12:44] LABS: ALB/GLOB Ratio 1.7 RATIO (0.9-2.4); AST(SGOT) 20 U/L (<=31); Alanine Aminotransfer ALT/SGPT 13 U/L (<=34); Albumin, Serum 3.6 g/dL (3.4-4.8); Alkaline Phosphatase 29 U/L (35-104); Anion Gap 13 (5-15); BUN 18 mg/dL (4-19); BUN/Creat Ratio 17.8 RATIO (10-20); Bilirubin, Direct 0.24 mg/dL (0.00-0.30); Calcium,Total 8.5 mg/dL (7.6-11.0); Carbon Dioxide 18.3 mmol/L (21.0-32.0); Chloride 106 mmol/L (98-108); Creatinine, Serum 1.01 mg/dL (0.70-1.20); EST Glomerular Filtration Rate 56 (>60); Estimated Creatinine Clearance 42.27 ml/min (50-250); Globulin 2.1 g/dL (2.2-4.2); Glucose 170 mg/dL (70-99); Potassium 4.3 mmol/L (3.3-5.1); Protein, Total 5.7 g/dL (5.9-8.4); Sodium Level 137 mmol/L (133-145); Total Bilirubin 0.51 mg/dL (0.00-1.30)
[2025-04-08 12:45] LABS: Troponin T High Sensitivity 20 ng/L (<=14)
[2025-04-08] MEDS: Ceftriaxone 1 GM/50 ML BAG IV (13:06)
[2025-04-08 13:28] LABS: Bedside Glucose 151 mg/dL (74-106)
[2025-04-08 13:52] LABS: Troponin T High Sens 2 HR 15 ng/L (<=14)
== END 2025-04-08 13:46 | disposition short-term general hospital (02) ==
PROVIDERS: Emergency Provider Emergency Medicine; PCP Family Medicine; Visit Provider Emergency Medicine
DX: I63.311 Cerebral infarction due to thrombosis of right middle cerebral artery (principal); G81.94 Hemiplegia, unspecified affecting left nondominant side; I48.0 Paroxysmal atrial fibrillation; S02.2XXA Fracture of nasal bones, initial encounter for closed fracture; Z79.01 Long term (current) use of anticoagulants; I25.10 Atherosclerotic heart disease of native coronary artery without angina pectoris; I10 Essential (primary) hypertension; K21.9 Gastro-esophageal reflux disease without esophagitis; Z79.899 Other long term (current) drug therapy; Z79.82 Long term (current) use of aspirin; V43.52XA Car driver injured in collision with other type car in traffic accident, initial encounter; S05.11XA Contusion of eyeball and orbital tissues, right eye, initial encounter; S00.83XA Contusion of other part of head, initial encounter; S80.11XA Contusion of right lower leg, initial encounter; Z96.651 Presence of right artificial knee joint; R29.810 Facial weakness; R47.81 Slurred speech; R47.1 Dysarthria and anarthria; M25.511 Pain in right shoulder; M25.512 Pain in left shoulder; R20.0 Anesthesia of skin; R29.706 NIHSS score 6
CPT/HCPCS: 51702; 70450; 70486; 70496; 70498; 71260; 72125; 73590; 74177; 80053; 80076; 81001; 82962; 83605; 84484; 85025; 85610; 85730; 87040; 87077; 87086; 87088; 87186; 93005; 96365; 99285; Q9967; A4216

== ENCOUNTER 2025-04-20 19:06 | Inpatient (IN) | payer MEDICARE, BC, SELFPAY ==
[2025-04-20 20:29] VITALS: BP 143/69; PULSE 90; RESP 20; TEMP 37.7; O2SAT 98
[2025-04-20 20:42] VITALS: PULSE 90; RESP 20; O2SAT 98
--- NOTE | 2025-04-20 21:03 | NURSING ---
Patient c/o 8/10 pain to left wrist and left shoulder. Consulted Dr. Nettles via telephone, new order for Tramadol 50mg PO Q6H PRN for a pain scale of 6-10. Order read back and verified.
[2025-04-20] MEDS: APIXABAN 2.5 MG TABLET (WCH) PO (21:35)
[2025-04-20] MEDS: Magnesium Chloride 64 MG Delay Rel.Tablet 128 MG PO (21:35)
[2025-04-20] MEDS: Senna/Docusate Sodium 1 Tablet PO (21:36)
--- NOTE | 2025-04-21 01:15 | NURSING ---
Patient c/o joint pain to Left shoulder, Left elbow, and Left wrist. PRN tramadol administered once this shift, was effective. However, Patient reports aching and stiffness to joints. This nurse repositioned patient and asked if she used something for this pain before. Patient reports use of tylenol and Oxy prior to admission on TCU, and she had stopped taking oxy a few days ago. Patient denies adverse reactions to tylenol, including reactions listed in her allergies. Patient asked if she could have arthritis cream. This nurse consulted Dr. Nettles via telephone. New orders for tylenol 1,000mg PO CYNDEE Q8H and arthritis cream 2 clicks ON LICENSE OF [facility] BID. Orders read back and verified.
[2025-04-21] MEDS: Arthritis Pain Compound 60 CLICK TUBE TOPICAL ×3 (01:26→21:15)
[2025-04-21 05:54] LABS: Hematocrit 32.4 % (37-47); Hemoglobin 10.9 g/dL (12.0-15.0); Immature Granulocytes Count 0.050 X10^3/uL (0.0-0.0); Mean Corp Hgb Conc 33.6 g/dL (32-36); Mean Corpuscular Volume 96.7 fL (81-99); Mean Platelet Vol. 8.7 fl (6.2-12.0); NRBC Flagged by Analyzer 0 % (0-5); POSITIVE MORPHOLOGY YES; Platelet Count 144 K/mm3 (150-450); RBC Distribution Width CV 20.2 % (11.6-14.6); RBC Distribution Width SD 71.9 fl (35.1-43.9); Red Blood Count 3.35 M/mm3 (4.2-5.4); White Blood Count 10.3 K/mm3 (4.4-11.0)
[2025-04-21 06:24] LABS: Anion Gap 8 (5-15); BUN 24 mg/dL (4-19); BUN/Creat Ratio 38.1 RATIO (10-20); Calcium,Total 8.3 mg/dL (7.6-11.0); Carbon Dioxide 22.0 mmol/L (21.0-32.0); Chloride 104 mmol/L (98-108); Glucose 112 mg/dL (70-99); Potassium 4.4 mmol/L (3.3-5.1)
[2025-04-21 06:30] LABS: Differential Indicated SCAN CRITERIA MET
[2025-04-21] MEDS: Potassium Chloride Oral Tablet 20 MEQ PO ×2 (06:52→17:31)
[2025-04-21 07:18] LABS: Anisocytosis 1+
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
[2025-04-21 09:44] VITALS: BP 137/52; PULSE 83
[2025-04-21] MEDS: Senna/Docusate Sodium 1 Tablet PO ×2 (09:44→21:16)
[2025-04-21] MEDS: APIXABAN 2.5 MG TABLET (WCH) PO ×2 (09:44→21:16)
[2025-04-21] MEDS: Metoprolol(XL)Succ 25 MG Tablet PO (09:44)
[2025-04-21] MEDS: Cholecalciferol (Vit D3) 125 MCG CAPSULE (5,000 UNITS) PO (09:45)
[2025-04-21 10:00] VITALS: BP 137/52; PULSE 83; RESP 16; TEMP 36.2; O2SAT 98
[2025-04-21] MEDS: Tuberculin,Purif.prot.deriv. 50 TU/ML Vial 0.1 ML ID (13:35)
--- NOTE | 2025-04-21 16:18 | CHAPLAIN ---
Type of Pastoral Visit ___ Initial Visit ___ Follow-up Visit ___ On-call Visit ___ General Patient Visit ___ Spiritual Assessment ___ Family Conference ___ Bereavement ___ Rapid Response ___ Code Blue ___ Other (describe below) Pastoral Care Referral From ___ Patient ___ Family ___ Nurse ___ Physician ___ Drafter Patent ___ Jacquard Plate Maker ___ Other (describe below) Sacrament/Intervention ___ Active listening ___ Anointing ___ Christian ___ Bereavement ___ Communion ___ Leatha exploration ___ ___ Life review ___ Prayer ___ Reconciliation ___ Sacrament of Sick ___ Supportive presence ___ Wedding ___ Other (describe below) Pastoral Comments patient was in a therapy session when a visit was attempted
[2025-04-21 20:00] VITALS: PULSE 70; O2SAT 99
[2025-04-21] MEDS: Magnesium Chloride 64 MG Delay Rel.Tablet 128 MG PO (21:16)
[2025-04-22] MEDS: Potassium Chloride Oral Tablet 20 MEQ PO ×2 (06:17→17:03)
[2025-04-22 06:54] VITALS: PULSE 86; O2SAT 98
[2025-04-22] MEDS: Arthritis Pain Compound 60 CLICK TUBE TOPICAL ×2 (10:04→22:29)
[2025-04-22] MEDS: APIXABAN 2.5 MG TABLET (WCH) PO ×2 (10:04→22:29)
[2025-04-22 10:05] VITALS: PULSE 86
[2025-04-22] MEDS: Senna/Docusate Sodium 1 Tablet PO ×2 (10:05→22:29)
[2025-04-22] MEDS: Metoprolol(XL)Succ 25 MG Tablet PO (10:05)
[2025-04-22] MEDS: Cholecalciferol (Vit D3) 125 MCG CAPSULE (5,000 UNITS) PO (10:05)
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
--- NOTE | 2025-04-22 15:38 | PHA.CONS_ITS ---
Documented by User: Eugenie Lucas 04/22/25 16:17 TCU RX Drug Regimen Review Subjective/Objective Subjective/Objective Subjective: 79 YOF admitted to TCU on 04/20 s/p hospitalization at an outside facility for stroke requiring surgical intervention. Admitted to TCU for str engthening and rehabilitation prior to discharge home where she resides with her . Objective: Allergies acetaminophen (From Vicodin) Allergy (Intermediate, Verified 04/20/25 20:43) HEADACHE hydrocodone (From Vicodin) Allergy (Intermediate, Verified 04/20/25 20:43) HEADACHE Current Medications Generic Name Dose Route Start Last Admin Trade Name Freq PRN Reason Stop Dose Admin Acetaminophen 1,000 mg 04/21/25 06:00 04/22/25 15:19 Acetaminophen 500 Mg Tablet PO 1,000 mg Q8 CYNDEE Administration Apixaban 2.5 mg 04/21/25 10:00 04/22/25 10:04 Apixaban 2.5 Mg Tablet ([facility]) PO 2.5 mg BID CYNDEE Administration Atorvastatin Calcium 40 mg 04/20/25 22:00 04/21/25 21:16 Atorvastatin Calcium 40 Mg Tablet PO 40 mg QHS CYNDEE Administration Cholecalciferol 125 mcg 04/21/25 10:00 04/22/25 10:05 Cholecalciferol (Vit D3) 125 Mcg Capsule (5,000 Units) PO 125 mcg DAILY CYNDEE Administration Compound Med 2 click 04/21/25 01:15 04/22/25 10:04 Arthritis Pain Compound 60 Click Tube TOPICAL 2 click BID CYNDEE Administration Protocol Folic Acid 1 mg 04/21/25 08:00 04/22/25 10:04 Folic Acid 1 Mg Tablet PO 1 mg BREAKFAST CYNDEE Administration Magnesium Chloride 128 mg 04/20/25 22:00 04/21/25 21:16 Magnesium Chloride 64 Mg Delay Rel.Tablet PO 128 mg QHS CYNDEE Administration Metoprolol Succinate 25 mg 04/21/25 10:00 04/22/25 10:05 Metoprolol(Xl)Succ 25 Mg Tablet PO 25 mg DAILY CYNDEE Administration Protocol Pantoprazole Sodium 40 mg 04/21/25 10:00 04/22/25 10:04 Pantoprazole Sodium 40 Mg Tablet PO 40 mg DAILY CYNDEE Administration Potassium Chloride 20 meq 04/21/25 07:00 04/22/25 06:17 Potassium Chloride Oral Tablet 20 Meq PO 20 meq BIDAC CYNDEE Administration Senna/Docusate Sodium 1 tablet 04/20/25 22:00 04/22/25 10:05 Senna/Docusate Sodium 1 Tablet PO 1 tablet BID CYNDEE Administration Tramadol HCl 50 mg 04/20/25 20:51 04/21/25 05:06 Tramadol 50 Mg Tablet PO 50 mg Q6H PRN PRN Administration Pain Score 6-10 Tuberculin PPD 0.1 ml 04/28/25 10:00 Tuberculin,Purif.Prot.Deriv. 50 Tu/Ml Vial ID 04/28/25 10:01 X1 ONE Problem List Atrial fibrillation (Acute) Hypokalemia (Acute) Hypomagnesemia (Acute) Pleural effusion (Acute) Fracture of left distal radius (Acute) Stroke (Acute) Debility (Acute) Breast cancer, left breast (Chronic) Cervical spinal stenosis (Chronic) GERD (gastroesophageal reflux disease) (Acute) Vital Signs Temp Pulse Resp BP Pulse Ox O2 Del Method 97.1 F L 86 16 137/52 H 98 Room Air 04/21/25 10:00 04/22/25 10:05 04/21/25 10:00 04/21/25 10:00 04/22/25 06:54 04/22/25 06:54 Oxygen Delivery Method Room Air Sodium 134 mmol/L (133-145) 04/21/25 05:44 Potassium 4.4 mmol/L (3.3-5.1) 04/21/25 05:44 Chloride 104 mmol/L (98-108) 04/21/25 05:44 Carbon Dioxide 22.0 mmol/L (21.0-32.0) 04/21/25 05:44 Anion Gap 8 (5-15) 04/21/25 05:44 BUN 24 mg/dL (4-19) H 04/21/25 05:44 Creatinine 0.62 mg/dL (0.70-1.20) L 04/21/25 05:44 Est GFR (MDRD) Non-Af 89 (>60) 04/21/25 05:44 BUN/Creatinine Ratio 38.1 RATIO (10-20) H 04/21/25 05:44 Glucose 112 mg/dL (70-99) H 04/21/25 05:44 Assessment/Plan: 1. Pain: Tylenol 1000mg PO Q8h, Arthritis compound cream topically BID, Tramadol 50mg PO Q6h PRN pain 6-10. Please continue to monitor for increased/decreased S/S pain, PRN medication usage, oversedation and constipation with tramadol usage. - To date, the patient has required 2 doses of PRN tramadol for pain rated 6- 8/10 in the shoulder/wrist. Post-admin pain rated 0-5/10. 2. Atrial Fibrillation/Stroke/HLD: Eliquis 2.5mg PO BID, Lipitor 40mg PO QHS, Toprol XL 25mg PO Daily. Please continue to monitor HR (last 86 BPM), BP (last 137/52), S/S bleeding/bruising, H/H (hgb 10.9, hct 32.4% on 04/21/25), lipid panel annually or sooner if clinically indicated (last done in 2022). 3. Hypokalemia: KCl 20mEq PO BID. Please continue to monitor serum potassium (last 4.4 on 04/21/25), S/S upset stomach, N/V. 4. GERD: Protonix 40mg PO daily. Please continue to monitor for stomach upset, gas, bloating. Please also encourage non-pharmacologic treatments to help minimize GERD exacerbations. 5. General Wellness: Vitamin D 125mcg PO Daily, Folic acid 1mg PO Daily, Magnesium chloride 128mg PO QHS. 6. Bowel: Senna/Docusate 1 tab PO BID. Please continue to monitor for increased/decreased constipation and/or diarrhea. Discontinue scheduled medication if diarrhea develops. -The patient's last documented BM was 04/21/25. Assessment/Plan for indications treated with psychotropic medications: Resident is not prescribed scheduled or prn psychotropic medications at the time of this drug regimen review. Medical chart and medication regimen reviewed. The following medication irregularities or issues were identified: 1. Patient on Lipitor 40mg PO QHS for stroke/HLD, last lipid panel completed in 2022 per EMR review. Please consider obtaining an updated lipid panel if clinically indicated, thank you. Date Date of Note: 04/22/25 Documented by User: Dr. Honorio Nettles MD 04/22/25 19:25 TCU RX Drug Regimen Review Provider Comments Provider responsibility Provider Comments to Recommendations by Pharmacy Agree
[2025-04-22 16:00] VITALS: BP 147/57; PULSE 79; RESP 18; TEMP 36.5; O2SAT 97
--- NOTE | 2025-04-22 16:00 | CASEMGMT ---
TCU Admit Note: SW met with pt to complete initial assessment. Introduced self and role. Verified/updated contacts. Patient confirmed code status. Educated to Medicare benefit and copay coverage. Pt?s goal is to return home with spouse of 62 years. Pt BIMS . Pt reports no anxiety or depression at this time. SW will continue to follow for DC planning. CONNIE Morfin
[2025-04-22] MEDS: Magnesium Chloride 64 MG Delay Rel.Tablet 128 MG PO (22:29)
--- OUTSIDE RECORDS SUMMARY | 2025-04-23 02:42 | XMS RPT_ITS | CCD ---
Author Organization [facility] Care Team Providers Care Manager Sql Name Role Phone Dr. Steven Tubbs Primary Care Provider Dr. Steven Tubbs Referring Provider 1([facility])[phone] Napoleon VOLUNTEER RECRUITER, VOLUNTEER RECRUITER-C Radha Attending Provider Dr. Jeffry Rosario Attending Provider 1([facility])[phone] Arely VOLUNTEER RECRUITER, VOLUNTEER RECRUITER-C Kortney Primary Care Provider 1([facility] )[phone] Arely VOLUNTEER RECRUITER, VOLUNTEER RECRUITER-C Kortney Referring Provider 1([facility])[phone] Dr. Alex Love Attending Provider 1([facility])[phone] Francisco Dennis Attending Provider 1([facility])[phone] Stiven Steele Attending Provider 1([facility])[phone] Arely VOLUNTEER RECRUITER, VOLUNTEER RECRUITER-C Kortney Primary Care Provider 1([facility] )[phone] Arely VOLUNTEER RECRUITER, VOLUNTEER RECRUITER-C Kortney Referring Provider 1([facility])[phone] Dr. Alex Love Attending Provider 1([facility])[phone] Steven Tubbs Referring Provider 1([facility])[phone] Jeffry Rosario Attending Provider 1([facility])[phone] Dr. Izaiah Rodrgiuez Attending Provider 1([facility])[phone] Erik Nguyen Primary Care Provider Erik Nguyen Primary Care Provider RAND CALZADA A Attending Unavailable ERIK NGUYEN Primary Care Unavailable ZHENG, RAND A Referring Unavailable ERIK NGUYEN Primary Care Unavailable ZHENG, RAND A Referring Unavailable ERIK NGUYEN Primary Care Unavailable ZHENG, RAND A Referring Unavailable ZHENG, RAND A Attending Unavailable ERIK NGUYEN Primary Care Unavailable RAND CALZADA Referring Unavailable ERIK NGUYEN Primary Care Unavailable ZHENG RAND A Attending Unavailable DO Uyen Lynn Primary Care Provider DO Uyen Lynn M Referring Provider Dr. Stiven Steele Attending Provider Dr. Alex Love Attending Provider Haider VOLUNTEER RECRUITER, VOLUNTEER RECRUITER-C Nery Attending Provider Jessica VOLUNTEER RECRUITER, VOLUNTEER RECRUITER-C Susanne Attending Provider DO Uyen Lynn Primary Care Provider DO Uyen Lynn Referring Provider DO Uyen Lynn Primary Care Provider DO Uyen Lynn Referring Provider Dr. Alex Love Attending Provider Dora MUIR, WOOD [place] Attending Provider Dr. Stiven Steele Attending Provider Erik Nguyen Primary Care Provider [phone] Nimco BALDWIN, Jorge A Primary Care Provider Jorge A Barclay MD Referring Provider Jessica VOLUNTEER RECRUITER-C, Susanne Attending Provider Jessica VOLUNTEER RECRUITER-C, Susanne Referring Provider Dr. Stiven Steele MD Attending Provider Dr. Alex Love MD Attending Provider Princess Shepherd Attending Provider Unavailable Dr. Alex Love MD Referring Provider Dr. Collin Cintron DO Other Provider Jorge A Barclay MD Primary Care Provider Jorge A Barclay MD Referring Provider Dr. Alex Love MD Referring Provider Dr. Collin Cintron DO Other Provider Jorge A Barclay MD Attending Provider [phone] Nishant TOBIAS, Dr. Dunn Emergency Provider Nishant TOBIAS, Dr. Dunn Attending Provider Nimco, Chalon Referring Unavailable Nimco, Chalon Primary Care Unavailable Prah, Alex Attending Unavailable Roof VOLUNTEER RECRUITERSteven Attending Unavailable Nimco, Chalon Primary Care Unavailable Uyen Lynn Referring Unavailable Nimco, Chalon Primary Care Unavailable Princess Shepherd Attending Unavailable Nimco, Chalon Primary Care Unavailable Nimco, Chalon Referring Unavailable Prah, Alex Attending Unavailable Collin Cintron Attending Unavailable Nimco, Chalon Primary Care Unavailable Nimco, Chalon Referring Unavailable Nimco, Chalon Primary Care Unavailable Prah, Alex Attending Unavailable Nimco, Chalon Primary Care Unavailable Nimco, Chalon Referring Unavailable Prah, Alex Attending Unavailable Nimco, Chalon Referring Unavailable Nimco, Chalon Primary Care Unavailable Prah, Alex Attending Unavailable Stiven Steele Attending Unavailable Nimco, Chalon Primary Care Unavailable Nimco, Chalon Referring Unavailable Nimco, Chalon Primary Care Unavailable Nimco, Chalon Referring Unavailable Jessica VOLUNTEER RECRUITER, Susanne Attending Unavailable Jessica VOLUNTEER RECRUITER, Susanne Attending Unavailable Nimco, Chalon Primary Care Unavailable Nimco, Chalon Referring Unavailable Collin Cintron Consulting Unavailable Prah, Alex Referring Unavailable Prah, Alex Attending Unavailable Nimco, Chalon Primary Care Unavailable Shaun Camejo Attending Unavailable Nimco, Chalon Primary Care Unavailable Nimco, Chalon Referring Unavailable Nimco, Jorge A Attending Unavailable Nimco, Chalon Primary Care Unavailable Prah, Alex Referring Unavailable Prah, Alex Attending Unavailable Nimco, Chalon Primary Care Unavailable Jessica VOLUNTEER RECRUITER, Susanne Attending Unavailable Nimco, Chalon Primary Care Unavailable Jessica VOLUNTEER RECRUITER, Susanne Referring Unavailable Nimco, Chalon Primary Care Unavailable Nimco, Chalon Referring Unavailable Prah, Alex Attending Unavailable Nimco, Chalon Referring Unavailable Nimco, Chalon Primary Care Unavailable Prah, Alex Attending Unavailable Nimco, Chalon Referring Unavailable Nimco, Chalon Primary Care Unavailable Prah, Alex Attending Unavailable Nimco, Chalon Primary Care Unavailable Nimco, Chalon Referring Unavailable Prah, Alex Attending Unavailable Nimco, Chalon Referring Unavailable Jorge A Barclay Primary Care Unavailable Alex Love Attending Unavailable SHAUN CAMEJO Referring Unavailable RYAN SINHA Admitting Unavailable ELI SMART Attending Unavailable CONSULT, CARDIOLOGY Consulting Unavailable JORGE A BARCLAY Primary Care Unavailable Jorge A Barclay MD Primary Care Provider [phone] Allergies Allergy Classification Reported Allergen(s) Allergy Type Date of Onset Reaction(s) Facility (12 sources) HYDROcodone Drug Allergy 2 Other, HEADACHE [facility] Comment on above: severe headache (10 sources) Acetaminophen / HYDROcodone; Translations: [HYDROCODONE-ACET AMINOPHEN] Drug Allergy 2 Other: See Comments, Headache [facility] Work Phone: (2 sources) Acetaminophen Drug Allergy 5 [facility] (1 source) Acetaminophen Drug Allergy 5 [facility] Repository (1 source) HYDROcodone Drug Allergy 5 [facility] Medications Current Medications Medication Drug Class(es) Dates Sig (Normalized) Sig (Original) apixaban 2.5 mg oral tablet (20 sources) Factor Xa Inhibitor Start: 09-05-2023 End: 09-02-2024 take 1 tablet by mouth twice daily Apixaban (Eliquis) 2.5 mg tablet Active 2.5 mg PO TWICE A DAY 180 3 September 02, 2024 2:18pm Start: 10-04-2022 End: 09-05-2023 take 1 tablet by mouth twice daily Apixaban (Eliquis) 5 mg tablet Discontinued 5 mg PO TWICE A DAY 180 October 04, 2022 1:00am September 05, 2023 10:50am Start: 03-16-2021 End: 10-04-2022 take 1 tablet by mouth twice daily Apixaban 2.5 mg tablet Discontinued 2.5 mg PO TWICE A DAY 180 October 03, 2021 11:03am September 28, 2022 11:34am Start: 03-16-2021 End: 03-16-2021 take 1 tablet by mouth once daily Apixaban 5 mg tablet Discontinued 5 mg PO DAILY March 16, 2021 3:20pm March 16, 2021 4:19pm Start: 09-19-2020 End: 03-16-2021 take 1 tablet by mouth twice daily Apixaban 5 mg tablet Discontinued 5 mg PO TWICE A DAY 180 October 18, 2020 11:39am March 16, 2021 3:23pm Comment on above: Take 2.5 mg by mouth twice daily. aspirin 81 mg delayed release oral tablet (20 sources) Platelet Aggregation Inhibitor, Nonsteroidal Anti-inflammatory Drug Start: 04-08-2025 take 1 tablet by mouth once daily Aspirin (Adult Aspirin Regimen) 81 mg tablet,delayed release (DR/EC) Active 81 mg PO DAILY April 08, 2025 12:00am Start: 09-19-2020 End: 09-18-2024 take 1 tablet by mouth once daily Aspirin 81 MG tablet,chewable Discontinued 81 mg PO DAILY@0800 0 September 19, 2020 1:00am September 18, 2024 10:32am Comment on above: Take 1 tablet by marco antonio th once daily. atorvastatin 40 mg oral tabl et (14 sources) HMG-CoA Reductase Inhibitor Start: 04-11-2025 End: 07-19-2025 Start: 02-10-2021 End: 04-03-2023 take 1 tablet by mouth once daily Atorvastatin 10 mg tablet Discontinued 10 mg PO DAILY February 10, 2021 12:00am April 03, 2023 10:10am Bilateral wrist splints for carpal tunnel syndrome (12 sources) Start: 08-08-2021 Bilateral wris t splints for carpal tunnel syndrome Active 0 .Route .MEDSUPPLY August 08, 2021 2:38pm Wear wrist splint at night. Start: 08-08-2021 Bilateral wris t splints for carpal tunnel syndrome Active 0 .Route .MEDSUPPLY 2 August 08, 2021 12:00am Bilateral carpal tunnel syndrome Wear wrist splint at night. Start: 08-08-2021 Bilateral wris t splints for carpal tunnel syndrome Active 0 .Route .MEDSUPPLY August 07, 2021 11:00pm Wear wrist splint at night. Start: 08-08-2021 Bilateral wris t splints for carpal tunnel syndrome Active 0 .Route .MEDSUPPLY August 08, 2021 12:00am Wear wrist splint at night. olaparib 150 mg oral tablet (9 sources) Poly(ADP-Ribose) Polymerase Inhibitor Start: 01-01-2025 End: 01-01-2025 take 1 tablet by mouth twice daily Olaparib (Lynparza) 150 mg tablet Active 300 mg PO TWICE A DAY 120 30 1 January 01, 2025 4:55pm potassium chloride 10 meq extended release oral capsule (20 sources) Start: 04-08-2025 take 1 capsule by mouth twice daily Potassium Chloride 10 mEq capsule, extended release Active 10 meq PO TWICE A DAY April 08, 2025 12:00am Start: 10-04-2021 End: 04-08-2025 take 1 tablet by mouth twice daily Potassium Chloride 10 mEq tablet extended release Discontinued 10 meq PO TWICE A DAY October 04, 2021 2:16pm April 08, 2025 12:30pm Start: 10-03-2021 potassium chlo ride SR (MICRO-K) 10 mEq CR capsule Take 10 mEq by mouth twice daily. 10/03/2021 Active Start: 03-16-2021 End: 10-04-2021 take 2 tablets by mouth once daily Potassium Chloride 10 mEq tablet extended release Discontinued 20 meq PO DAILY March 16, 2021 12:00am October 04, 2021 2:17pm Start: 03-16-2021 End: 10-04-2021 take 20 mEq by mouth once daily Potassium Chloride Dis continued 20 MEQ PO DAILY March 15, 2021 11:00pm October 04, 2021 1:17pm Start: 12-30-2020 End: 03-16-2021 take 20 mEq by mouth once daily Potassium Chloride 20 mEq/15 mL liquid Discontinued 20 meq PO DAILY December 30, 2020 12:00am March 16, 2021 3:21pm Start: 12-22-2020 End: 12-30-2020 take 1 tablet by mouth once daily Potassium Chloride 15 mEq tablet,ER particles/crystals Discontinued 15 meq PO DAILY December 22, 2020 1:00am December 30, 2020 2:28pm Start: 11-26-2020 End: 12-22-2020 take 1 tablet by mouth twice daily at mealtime Potassium Chloride 20 MEQ tablet Discontinued 20 meq PO TWICE DAILY WITH MEALS 60 0 November 26, 2020 1:00am December 22, 2020 3:29pm Comment on above: Take 10 mEq by mouth twice daily. sennosides, residential 8.6 mg oral tablet (2 sources) Start: 04-21-2025 End: 05-21-2025 Start: 04-09-2025 End: 04-20-2025 Completed/Discontinued Medications Medication Drug Class(es) Dates Sig (Normalized) Sig (Original) acetaminophen 325 mg oral tablet (3 sources) Start: 04-16-2025 End: 04-20-2025 Start: 04-14-2025 End: 04-14-2025 Start: 04-08-2025 End: 04-16-2025 take 1 tablet by mouth every four hours as needed albuterol 0.833 mg/ml / ipratropium bromide 0.167 mg/ml inhalation solution (3 sources) Anticholinergic, beta2-Adrenergic Agonist Start: 04-12-2025 End: 04-20-2025 take 3 mL by inhalation every six hours as needed Start: 04-09-2025 End: 04-09-2025 aluminum hydroxide 80 mg/ml / magnesium hydroxide 80 mg/ml / simethicone 8 mg/ml oral suspension (12 sources) Start: 11-26-2020 End: 10-04-2021 take 1 mL by mouth every eight hours as needed Alum-Mag Hydroxide-Simeth 30 ML suspension Discontinued 15 mL PO Q8H as needed for Dyspepsia 473 0 November 26, 2020 12:54pm October 04, 2021 2:15pm Start: 11-26-2020 End: 10-04-2021 take 1 mL by mouth every eight hours Alum-Mag Hydroxide-Simeth Discontinued 15 ML PO Q8H 473 November 26, 2020 11:54am October 04, 2021 1:15pm Amino Acids-Protein Hydrolys (Pro-Stat Awc) 17-100 gram-kcal/30 mL liquid (12 sources) Start: 12-30-2020 End: 01-31-2021 Amino Acids-Protein Hydrolys (Pro-Stat Awc) 17-100 gram-kcal/30 mL liquid Discontinued 30 EACH PO TWICE A DAY December 30, 2020 2:33pm January 31, 2021 4:18pm Start: 12-30-2020 End: 01-31-2021 Amino Acids-Protein Hydrolys (Pro-Stat Awc) 17-100 gram-kcal/30 mL liquid Discontinued 30 NMA PO TWICE A DAY December 30, 2020 12:00am January 31, 2021 4:18pm Start: 12-30-2020 End: 01-31-2021 Amino Acids-Protein Hydrolys (Pro-Stat Awc) 17-100 gram-kcal/30 mL liquid Discontinued 30 EACH PO TWICE A DAY December 29, 2020 11:00pm January 31, 2021 3:18pm Start: 12-30-2020 End: 01-31-2021 Amino Acids-Protein Hydrolys (Pro-Stat Awc) 17-100 gram-kcal/30 mL liquid Discontinued 30 EACH PO TWICE A DAY December 30, 2020 12:00am January 31, 2021 4:18pm amiodarone hydrochloride 200 mg oral tablet (20 sources) Antiarrhythmic Start: 10-13-2020 End: 12-06-2020 take 1 tablet by mouth once daily Amiodarone 200 mg tablet Discontinued 200 mg PO DAILY 90 October 13, 2020 4:58pm December 06, 2020 11:00am Start: 09-19-2020 End: 10-13-2020 take 1 tablet by mouth three times daily, then take 1 tablet by mouth twice daily, then take 1 tablet by mouth once daily Amiodarone 200 mg tablet Discontinued 200 mg PO TWICE A DAY October 13, 2020 4:25pm October 13, 2020 4:57pm 1 p.o. 3 times a day for 1 week, then 1 twice a day for 2 weeks, then 1 daily thereafter amLODIPine 5 mg oral tablet (20 sources) Dihydropyridine Calcium Channel Levi Start: 09-19-2020 End: 12-30-2020 take 1 tablet by mouth once daily Amlodipine 5 mg tablet Discontinued 5 mg PO DAILY 90 October 18, 2020 11:39am December 30, 2020 2:35pm amoxicillin 50 mg/ml / clavulanate 12.5 mg/ml oral suspension (12 sources) Penicillin-class Antibacterial Start: 09-17-2020 End: 09-19-2020 take 1 mL by mouth every twelve hours Amoxicillin-Pot Clavulanate 250 MG/5 ML suspension for reconstitution Discontinued 10 mL PO Q12H September 17, 2020 1:00am September 19, 2020 1:21pm Start: 09-17-2020 End: 09-19-2020 take 1 mL by mouth every twelve hours Amoxicillin-Pot Clavulanate Discontinued 10 ML PO Q12H September 17, 2020 12:00am September 19, 2020 12:21pm anastrozole 1 mg oral tablet (20 sources) Aromatase Inhibitor Start: 12-22-2021 End: 04-19-2023 take 1 tablet by mouth once daily Anastrozole 1 mg tablet Discontinued 1 mg PO DAILY 90 August 16, 2022 9:44am November 22, 2022 2:50pm Comment on above: Take 1 mg by mouth o nce daily. baclofen 10 mg oral tablet (5 sources) gamma-Aminobutyric Acid-ergic Agonist Start: 09-18-2023 End: 03-20-2024 take 1 tablet by mouth at bedtime as needed Baclofen 10 mg tablet Discontinued 10 mg PO AT BEDTIME as needed for muscle cramps 13 03September 18, 2023 1:00am March 20, 2024 9:04am ceFAZolin 2000 mg injection (1 source) Cephalosporin Antibacterial Start: 04-11-2025 End: 04-16-2025 take 2 g intravenously every eight hours cetirizine hydrochloride 10 mg oral tablet (7 sources) Histamine-1 Receptor Antagonist Start: 05-22-2023 End: 09-18-2023 take 1 tablet by mouth once daily as needed Cetirizine (Zyrtec) 10 mg tablet Discontinued 10 mg PO DAILY as needed May 22, 2023 12:00am September 18, 2023 12:01pm chlorhexidine gluconate 1.2 mg/ml mouthwash (1 source) Start: 04-11-2025 End: 04-12-2025 cholecalciferol 0.125 mg oral tablet (20 sources) Vitamin D Start: 04-10-2025 End: 04-20-2025 Start: 08-08-2021 take 1 capsule by [facility] once daily Cholecalciferol (Vitamin D3) 125 mcg (5,000 unit) capsule Active 5000 U PO DAILY August 08, 2021 12:00am Start: 12-14-2020 End: 08-08-2021 take 1 capsule by mouth every week Cholecalciferol (Vitamin D3) 1,250 mcg (50,000 unit) capsule Discontinued 1250 ug PO EVERY WEEK 4 April 04, 2021 6:59pm August 08, 2021 2:10pm Comment on above: Take 1 capsule by [facility] once daily. ergocalciferol 1.25 mg oral capsule (12 sources) Provitamin D2 Compound Start: 018 End: Ergocalciferol (Vitamin D2) 50,000 UNIT capsule Discontinued 04856 U PO Q7D April 02, 2018 12:00am October 13, 2020 4:25pm supplement 2 ml famotidine 10 mg/ml injection (1 source) Histamine-2 Receptor Antagonist Start: End: 1 ml fentaNYL 0.05 mg/ml injection (1 source) Opioid Agonist Start: End: take 12.5 ug intravenously every two hours as needed folic acid 1 mg oral tablet (20 sources) Start: End: Start: 12-09-2020 End: 12-18-2024 take 1 tablet by mouth once daily Folic Acid 1 mg tablet Discontinued 1 mg PO DAILY 30 2 October 24, 2021 1:36pm January 02, 2022 7:12pm Comment on above: Take 1 mg by mouth o nce daily. Food Supplemt, Lactose-Reduced (Ensure Max Protein) liquid (20 sources) Start: 12-30-2020 End: 03-16-2021 take 330 mL by mouth once daily Food Supplemt, Lactose-Reduced (Ensure Max Protein) liquid Discontinued 0 PO DAILY 3960 0 December 30, 2020 7:41pm March 16, 2021 3:23pm 330ml PO daily Start: 12-30-2020 End: 03-16-2021 take 330 mL by mouth once daily Food Supplemt, Lactose-Reduced (Ensure Max Protein) liquid Discontinued 0 PO DAILY 396December 30, 2020 6:41pm March 16, 2021 2:23pm 330ml PO daily Start: 12-30-2020 End: 03-16-2021 take 330 mL by mouth once daily Food Supplemt, Lactose-Reduced (Ensure Max Protein) liquid Discontinued 0 PO DAILY 3959December 30, 2020 7:41pm March 16, 2021 3:23pm 330ml PO daily Start: 12-16-2020 End: 12-30-2020 take 330 mL by mouth once daily Food Supplemt, Lactose-Reduced (Ensure Max Protein) liquid Discontinued 0 PO DAILY 3960 December 16, 2020 12:35pm December 30, 2020 7:42pm 330ml PO daily Start: 12-16-2020 End: 12-30-2020 take 330 mL by mouth once daily Food Supplemt, Lactose-Reduced (Ensure Max Protein) liquid Discontinued 0 PO DAILY 396December 16, 2020 11:35am December 30, 2020 6:42pm 330ml PO daily Start: 12-16-2020 End: 12-30-2020 take 330 mL by mouth once daily Food Supplemt, Lactose-Reduced (Ensure Max Protein) liquid Discontinued 0 PO DAILY 396December 16, 2020 12:35pm December 30, 2020 7:42pm 330ml PO daily Start: 12-09-2020 End: 12-16-2020 take 330 mL by mouth once daily Food Supplemt, Lactose-Reduced (Ensure Max Protein) liquid Discontinued 0 PO DAILY 396December 10, 2020 12:50am December 16, 2020 12:35pm 330ml PO daily Start: 12-09-2020 End: 12-16-2020 take 330 mL by mouth once daily Food Supplemt, Lactose-Reduced (Ensure Max Protein) liquid Discontinued 0 PO DAILY 3960 2 December 09, 2020 1:00am December 16, 2020 12:35pm 330ml PO daily Start: 12-09-2020 End: 12-16-2020 take 330 mL by mouth once daily Food Supplemt, Lactose-Reduced (Ensure Max Protein) liquid Discontinued 0 PO DAILY 396December 09, 2020 12:00am December 16, 2020 11:35am 330ml PO daily Start: 12-09-2020 End: 12-16-2020 take 330 mL by mouth once daily Food Supplemt, Lactose-Reduced (Ensure Max Protein) liquid Discontinued 0 PO DAILY 396December 09, 2020 1:00am December 16, 2020 12:35pm 330ml PO daily Furosemide (6 sources) Loop Diuretic Start: 04-14-2025 End: 04-14-2025 Start: 04-13-2025 End: 04-13-2025 Start: 04-12-2025 End: 04-12-2025 Start: 04-12-2025 End: 04-12-2025 Start: 04-11-2025 End: 04-11-2025 hydroCHLOROthiazide 12.5 mg oral tablet (20 sources) Thiazide Diuretic Start: 09-17-2020 End: 09-19-2020 take 2 tablets by mouth once daily Hydrochlorothiazide 6.25 MG tablet Discontinued 12.5 mg PO DAILY September 17, 2020 1:00am September 19, 2020 1:08pm Start: 08-21-2020 End: 09-19-2020 take 1 tablet by mouth once daily hydroCHLOROthiazide (HYDRODIURIL, ESIDRIX) 12.5 mg tablet Take 12.5 mg by mouth once daily. 08/21/2020 Active Comment on above: Take 12.5 mg by mout h once daily. iv contrast (will be provided with radiology test) (6 sources) Start: 10-06-2022 End: 10-06-2022 iv contrast (will be provided with radiology test) CT Chest W -Inject, intravenously, once for 1 dose.No IV access, insert saline lock prior to the beginning of sedation, infusion, injection of imaging exam. Discontinue saline lock post exam. If Pt. has a central line or IVAD, may access for administration according to line specific nursing protocol. Once exam is complete flush line and de-access according to line specific nursing protocol in the CT contrast administration guidelines link. 1 Each 0 10/06/2022 10/06/2022 Start: 06-15-2022 iv contrast (w ill be provided with radiology test) CT Chest W -Inject, intravenously, once for 1 dose.No IV access, insert saline lock prior to the beginning of sedation, infusion, injection of imaging exam. Discontinue saline lock post exam. If Pt. has a central line or IVAD, may access for administration according to line specific nursing protocol. Once exam is complete flush line and de-access according to line specific nursing protocol in the CT contrast administration guidelines link. 1 Each 06/15/2022 Active Start: 06-15-2022 iv contrast (w ill be provided with radiology test) CT Chest W -Inject, intravenously, once for 1 dose.No IV access, insert saline lock prior to the beginning of sedation, infusion, injection of imaging exam. Discontinue saline lock post exam. If Pt. has a central line or IVAD, may access for administration according to line specific nursing protocol. Once exam is complete flush line and de-access according to line specific nursing protocol in the CT contrast administration guidelines link. 1 Each 0 06/15/2022 Active Comment on above: CT Chest W -Inject, intravenously, once for 1 dose.No IV access, insert saline lock prior to the beginning of sedation, infusion, injection of imaging exam. Discontinue saline lock post exam. If Pt. has a central line or IVAD, may access for administration according to line specific nursing protocol. Once exam is complete flush line and de-access according to line specific nursing protocol in the CT contrast administration guidelines link. labetalol hydrochloride 5 mg/ml injectable solution (1 source) beta-Adrenergic Levi Start: 2024 End: 2024 take 10 mg intravenously every hour as needed levocetirizine dihydrochloride 5 mg oral tablet (12 sources) Histamine-1 Receptor Antagonist Start: 2020 End: 2020 Levocetirizine 5 mg tablet Discontinued NMA PO November 30, 2020 1:00am December 22, 2020 3:48pm Start: 11-30-2020 End: 12-22-2020 Levocetirizine Discontinued EACH PO November 30, 2020 12:00am December 22, 2020 2:48pm 10 ml lidocaine hydrochloride 10 mg/ml injection (1 source) Antiarrhythmic, Amide Local Anesthetic Start: 04-14-2025 End: 04-14-2025 losartan potassium 100 mg oral tablet (20 sources) Angiotensin 2 Receptor Levi Start: 10-13-2020 End: 10-13-2020 Losartan 100 mg tablet Discontinued 50 mg PO DAILY October 13, 2020 4:25pm October 13, 2020 4:57pm Start: 10-13-2020 End: 10-13-2020 take 50 mg by mouth once daily Losartan Discontinued 5 0 MG PO DAILY October 13, 2020 3:25pm October 13, 2020 3:57pm Start: 09-19-2020 End: 12-22-2020 take 1 tablet by mouth once daily Losartan 100 mg tablet Discontinued 100 mg PO DAILY 90 3 November 17, 2020 1:12pm December 22, 2020 3:32pm Start: 08-21-2020 End: 09-19-2020 take 1 tablet by mouth once daily Losartan 50 MG tablet Discontinued 50 mg PO DAILY September 17, 2020 1:00am September 19, 2020 1:08pm Comment on above: Take 50 mg by mouth once daily. magnesium oxide 400 mg oral tablet (20 sources) Start: 07-11-2022 End: 12-18-2024 take 1 tablet by mouth at bedtime Magnesium Oxide 400 mg magnesium tablet Discontinued 400 mg PO AT BEDTIME 30 10 March 20, 2024 9:05am December 18, 2024 11:43am 50 ml magnesium sulfate 80 mg/ml injection (1 source) Start: 04-08-2025 End: 04-15-2025 methocarbamol 500 mg oral tablet (1 source) Muscle Relaxant Start: 04-16-2025 End: 04-20-2025 metoclopramide 5 mg oral tablet (20 sources) Dopamine-2 Receptor Antagonist Start: 11-26-2020 End: 10-04-2021 take 1 tablet by mouth four times daily Metoclopramide Hcl 5 mg tablet Discontinued 5 mg PO 4 TIMES DAILY March 16, 2021 3:22pm October 04, 2021 2:16pm metoprolol tartrate 25 mg oral tablet (20 sources) beta-Adrenergic Levi Start: 04-12-2025 End: 04-20-2025 Start: 12-22-2020 End: 03-30-2025 take 1 tablet by mouth once daily Metoprolol Succinate 25 mg tablet extended release 24 hr Discontinued 25 mg PO DAILY 90 March 30, 2025 3:45pm March 30, 2025 3:51pm Start: 09-19-2020 End: 12-22-2020 take 1 tablet by mouth twice daily Metoprolol Tartrate 25 mg tablet Discontinued 25 mg PO TWICE A DAY 180 October 18, 2020 11:39am December 22, 2020 3:28pm Comment on above: Take 25 mg by mouth once daily. omeprazole 40 mg delayed release oral capsule (20 sources) Proton Pump Inhibitor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 Informationon 04-20 Interpretation and review of laboratory results Normal [facility] PHOSPHATE, INORGANICon 04-20 Phosphate [Mass/Vol] 3.6 mg/dL 2.2 - 4 .6 mg/dL [facility] Phosphorous 3.6 mg/dL Normal 2.2-4.6 [facility] Comment on above: Performed By: #### L DO, MGO, IPB, CHM7 #### [facility] (DEFAULT) [address] [place] [address] CBC,PLATELETSon 04-19-2025 Erythrocyte distribution width (RBC) [Ratio] 19.7 % High 10.8 - 14.9 % [facility] Hematocrit (Bld) [Volume fraction] 35.1 % 34.9 - 44.3 % [facility] Hemoglobin (Bld) [Mass/Vol] 11.3 g/dL Low 11.4 - 15.2 g/dL [facility] Interpretation and review of laboratory results Abnormal [facility] MCH (RBC) [Entitic mass] 30.6 pg 25.9 - 33.9 pg [facility] MCHC (RBC) [Mass/Vol] 32.2 g/dL 31.4 - 35.9 g/dL [facility] MCV (RBC) [Entitic vol] 95.1 fL 79.6 - 97.7 fL [facility] Platelet mean volume (Bld) [Entitic vol] 9.2 fL 8.5 - 12.2 fL [facility] Platelets (Bld) [#/Vol] 130 10*3/uL Low 150 - 393 K/uL [facility] RBC (Bld) [#/Vol] 3.69 10*6/uL Low [facility] WBC (Bld) [#/Vol] 6.13 10*3/uL 3.99 - 11.19 K/uL [facility] Hematocrit (Bld) [Volume fraction] 35.1 % Normal 34.9-44.3 [facility] Comment on above: Performed By: #### I CA #### [facility] (DEFAULT) [address] [place] [address]69 Hemoglobin (Bld) [Mass/Vol] 11.3 g/dL Low 11.4-15.2 [facility] Comment on above: Performed By: #### I CA #### [facility] (DEFAULT) [address] [address] MCV (RBC) [Entitic vol] 95.1 fL Normal 79.6-97.7 [facility] Comment on above: Performed By: #### I CA #### [facility] (DEFAULT) [address] [address] Mean Cell Hgb 30.6 pg Normal 25.9-33.9 [facility] Comment on above: Performed By: #### I CA #### [facility] (DEFAULT) [address] [address] Mean Cell Hgb Conc 32.2 g/dL Normal 31.4-35.9 [facility] Comment on above: Performed By: #### I CA #### [facility] (DEFAULT) [address] [place] [address] 32882 Platelet mean volume (Bld) [Entitic vol] 9.2 fL Normal 8.5-12.2 [facility] Comment on above: Performed By: #### I CA #### [facility] (DEFAULT) [address] [address] Platelets (Bld) [#/Vol] 130 10*3/uL Low 150-393 [facility] Comment on above: Performed By: #### I CA #### [facility] (DEFAULT) [address] [address] RBC (Bld) [#/Vol] 3.69 10*6/uL Low 3.91-5.04 [facility] Comment on above: Performed By: #### I CA #### [facility] (DEFAULT) [address] [place] [address] RBC Distribution 19.7 % High 10.8-14.9 [facility] Comment on above: Performed By: #### I CA #### [facility] (DEFAULT) [address] [place] [address] WBC (Bld) [#/Vol] 6.13 10*3/uL Normal 3.99-11.19 [facility] Comment on above: Performed By: #### I CA #### [facility] (DEFAULT) [address] [place] [address] CHEM 7 (LYTES,BUN,CREA,GLUC) on 04-19-2025 Anion gap [Moles/Vol] 12 mmol/L 7 - 17 mmol/L [facility] Chloride [Moles/Vol] 105 mmol/L 98 - 10 8 mmol/L [facility] CO2 [Moles/Vol] 24 mmol/L 21 - 31 mmol/L [facility] Creatinine [Mass/Vol] 0.52 mg/dL 0.50 - 1.20 mg/dL [facility] eGFR, CKD-EPI, Female - PINF [facility] Glucose [Mass/Vol] 101 mg/dL 70 - 179 mg/dL [facility] Osmolality Calc [Osmolality] 291 [facility] Potassium [Moles/Vol] 4.4 mmol/L 3.5 - 5.0 mmol/L [facility] Sodium [Moles/Vol] 137 mmol/L 135 - 145 mmol/L [facility] Urea nitrogen [Mass/Vol] 20 mg/dL 7 - 25 mg/dL [facility] Urea nitrogen/Creatinine [Mass ratio] 38 mg/mg [facility] Anion gap [Moles/Vol] 12 mmol/L Normal 7-17 [facility] Comment on above: Performed By: #### M GO, CHM7, IPB ####[facility] (DEFAULT)[address] [place] [address] Chloride [Moles/Vol] 105 mmol/L Normal 98-108 [facility] Comment on above: Performed By: #### BALJIT QUINTANA, IPB ####[facility] (DEFAULT)[address] [facility] [place] [address] CO2 [Moles/Vol] 24 mmol/L Normal 21-31 [facility] Comment on above: Performed By: #### BALJIT QUINTANA, IPB ####[facility] (DEFAULT)[address] [facility] [place] [address] Creatinine [Mass/Vol] 0.52 mg/dL Normal 0.50-1.20 [facility] [place] Comment on above: Performed By: #### BALJIT QUINTANA, IPB ####[facility] (DEFAULT)[address] [place] [address] eGFR, CKD-EPI, Female > Normal >=60 [facility] [place] Comment on above: Result Comment: Repo rted eGFR is based on the CKD-EPI 2020 equation using creatinine, age, and sex. Performed By: #### BALJIT QUINTANA, MELANIB ####[facility] (DEFAULT)[address] [facility] [place] [address] Glucose [Mass/Vol] 101 mg/dL Normal Nonfastin -179 mg/dL; Fastin-99 [facility] Comment on above: Performed By: #### BALJIT QUINTANA, IPB ####[facility] (DEFAULT)[address] [facility] [place] [address] Osmolality [Osmolality] 291 mosm/kg Normal 278-305 [facility] Comment on above: Performed By: #### BALJIT QUINTANA, IPB ####[facility] (DEFAULT)[address] [facility] [place] [address] Potassium [Moles/Vol] 4.4 mmol/L Normal 3.5-5.0 [facility] [place] Comment on above: Performed By: #### Cha MEDRANO, CHM7, IPB ####[facility] (DEFAULT)[address] [place] [address] Sodium [Moles/Vol] 137 mmol/L Normal 135-145 [facility] Comment on above: Performed By: #### M MARCELA CHM7, IPB ####[facility] (DEFAULT)[address] [place] [address] Urea nitrogen [Mass/Vol] 20 mg/dL Normal 7-25 [facility] Comment on above: Performed By: #### M MARCELA CHM7, IPB ####[facility] (DEFAULT)[address] [place] [address], [place] [address] Urea nitrogen/Creatinine [Mass ratio] 38 mg/mg Normal [facility] Comment on above: Performed By: #### M LORENZA MEDRANOM7, IPB ####[facility] (DEFAULT)[address] [place] [address] IONIZED CALCIUM, WHOLE BLOOD Ordered By: Fouzia Marshall on 04-19-2025 Calcium.ionized (Bld) [Moles/Vol] 4.37 mg/dL Low 4.60 - 5.30 mg/dL [facility] Interpretation and review of laboratory results Abnormal [facility] IONIZED CALCIUM, WHOLE BLOOD on 04-19-2025 ICA 4.37 mg/dL Low 4.60-5.30 [facility] Comment on above: Performed By: #### I CA ####[facility] (DEFAULT)[address] [place] [address], [place] [address] MAGNESIUMon 04-19-2025 Magnesium [Mass/Vol] 1.9 mg/dL 1.6 - 2 .6 mg/dL [facility] Magnesium [Mass/Vol] 1.9 mg/dL Normal 1.6-2.6 [facility] Comment on above: Performed By: #### M MARCELA CHM7, IPB ####[facility] (DEFAULT)[address] [place] [address] No Panel Informationon 04-19 Interpretation and review of laboratory results Normal [facility] PHOSPHATE, INORGANICon 04-19 Phosphate [Mass/Vol] 2.9 mg/dL 2.2 - 4 .6 mg/dL [facility] Phosphorous 2.9 mg/dL Normal 2.2-4.6 [facility] Comment on above: Performed By: #### I CA #### [facility] (DEFAULT) [address] [place] [address] CBC,PLATELETSon 04-18-2025 Erythrocyte distribution width (RBC) [Ratio] 19.4 % High 10.8 - 14.9 % [facility] Hematocrit (Bld) [Volume fraction] 34.8 % Low 34.9 - 44.3 % [facility] Hemoglobin (Bld) [Mass/Vol] 11.2 g/dL Low 11.4 - 15.2 g/dL [facility] Interpretation and review of laboratory results Abnormal [facility] MCH (RBC) [Entitic mass] 31.5 pg 25.9 - 33.9 pg [facility] MCHC (RBC) [Mass/Vol] 32.2 g/dL 31.4 - 35.9 g/dL [facility] MCV (RBC) [Entitic vol] 98 fL High 79.6 - 97.7 fL [facility] Platelet mean volume (Bld) [Entitic vol] 10.5 fL 8.5 - 12.2 fL [facility] Platelets (Bld) [#/Vol] 104 10*3/uL Low 150 - 393 K/uL [facility] RBC (Bld) [#/Vol] 3.55 10*6/uL Low [facility] WBC (Bld) [#/Vol] 5.1 10*3/uL 3.99 - 11.19 K/uL [facility] Hematocrit (Bld) [Volume fraction] 34.8 % Low 34.9-44.3 [facility] Comment on above: Performed By: #### L DO, MGO, IPB, CHM7 #### [facility] (DEFAULT) [address] [place] [address] Hemoglobin (Bld) [Mass/Vol] 11.2 g/dL Low 11.4-15.2 [facility] Comment on above: Performed By: #### L DO, MGO, IPB, CHM7 #### [facility] (DEFAULT) [address] [place] [address] MCV (RBC) [Entitic vol] 98.0 fL High 79.6-97.7 [facility] Comment on above: Performed By: #### L DO, MGO, IPB, CHM7 #### [facility] (DEFAULT) [address] [place] [address] Mean Cell Hgb 31.5 pg Normal 25.9-33.9 [facility] Comment on above: Performed By: #### L DO, MGO, IPB, CHM7 #### [facility] (DEFAULT) [address] [place] [address] 374[address] Mean Cell Hgb Conc 32.2 g/dL Normal 31.4-35.9 [facility] Comment on above: Performed By: #### L DO, MGO, IPB, CHM7 #### [facility] (DEFAULT) [address] [place] [address] Platelet mean volume (Bld) [Entitic vol] 10.5 fL Normal 8.5-12.2 [facility] Comment on above: Performed By: #### L DO, MGO, IPB, CHM7 #### [facility] (DEFAULT) [address] [place] [address] Platelets (Bld) [#/Vol] 104 10*3/uL Low 150-393 [facility] Comment on above: Performed By: #### L DO, MGO, IPB, CHM7 #### [facility] (DEFAULT) [address] [place] [address] RBC (Bld) [#/Vol] 3.55 10*6/uL Low 3.91-5.04 [facility] Comment on above: Performed By: #### L DO, MGO, IPB, CHM7 #### [facility] (DEFAULT) [address] [place] [address] RBC Distribution 19.4 % High 10.8-14.9 [facility] Comment on above: Performed By: #### L DO, MGO, IPB, CHM7 #### [facility] (DEFAULT) [address] [place] [address] WBC (Bld) [#/Vol] 5.10 10*3/uL Normal 3.99-11.19 [facility] Comment on above: Performed By: #### L DO, MGO, IPB, CHM7 #### [facility] (DEFAULT) [address] [place] [address] CHEM 7 (LYTES,BUN,CREA,GLUC) on 04-18-2025 Anion gap [Moles/Vol] 13 mmol/L 7 - 17 mmol/L [facility] Chloride [Moles/Vol] 104 mmol/L 98 - 10 8 mmol/L [facility] CO2 [Moles/Vol] 24 mmol/L 21 - 31 mmol/L [facility] Creatinine [Mass/Vol] 0.56 mg/dL 0.50 - 1.20 mg/dL [facility] eGFR, CKD-EPI, Female - PINF [facility] Glucose [Mass/Vol] 109 mg/dL 70 - 179 mg/dL [facility] Osmolality Calc [Osmolality] 289 [facility] Potassium [Moles/Vol] 4.5 mmol/L 3.5 - 5.0 mmol/L [facility] Sodium [Moles/Vol] 136 mmol/L 135 - 145 mmol/L [facility] Urea nitrogen [Mass/Vol] 20 mg/dL 7 - 25 mg/dL [facility] Urea nitrogen/Creatinine [Mass ratio] 36 mg/mg [facility] Anion gap [Moles/Vol] 13 mmol/L Normal 7-17 [facility] Comment on above: Performed By: #### BALJIT QUINTANA, IPB ####[facility] (DEFAULT)[address] [place] [address] Chloride [Moles/Vol] 104 mmol/L Normal 98-108 [facility] Comment on above: Performed By: #### BALJIT QUINTANA, IPB ####[facility] (DEFAULT)[address] [facility] [place] [address] CO2 [Moles/Vol] 24 mmol/L Normal 21-31 [facility] Comment on above: Performed By: #### BALJIT QUINTANA, IPB ####[facility] (DEFAULT)[address] [facility] [place] [address] Creatinine [Mass/Vol] 0.56 mg/dL Normal 0.50-1.20 [facility] Comment on above: Performed By: #### BALJIT QUINTANA, IPB ####[facility] (DEFAULT)[address] [facility] [place] [address] eGFR, CKD-EPI, Female > Normal >=60 [facility] Comment on above: Result Comment: Repo rted eGFR is based on the CKD-EPI 2020 equation using creatinine, age, and sex. Performed By: #### BALJIT QUINTANA, IPB ####[facility] (DEFAULT)[address] [facility] [place] [address] Glucose [Mass/Vol] 109 mg/dL Normal Nonfastin -179 mg/dL; Fastin-99 [facility] Comment on above: Performed By: #### BALJIT QUINTANA, IPB ####[facility] (DEFAULT)[address] [facility] [place] [address] Osmolality [Osmolality] 289 mosm/kg Normal 278-305 [facility] Comment on above: Performed By: #### M MARCELA CHM7, IPB ####[facility] (DEFAULT)[address] [place] [address] Potassium [Moles/Vol] 4.5 mmol/L Normal 3.5-5.0 [facility] Comment on above: Performed By: #### Cha MEDRANO CHM7, IPB ####[facility] (DEFAULT)[address] [place] [address] Sodium [Moles/Vol] 136 mmol/L Normal 135-145 [facility] Comment on above: Performed By: #### Cha MEDRANO CHM7, IPB ####[facility] (DEFAULT)[address] [place] [address] Urea nitrogen [Mass/Vol] 20 mg/dL Normal 7-25 [facility] Comment on above: Performed By: #### M LORENZA MEDRANOM7, IPB ####[facility] (DEFAULT)[address] [place] [address] Urea nitrogen/Creatinine [Mass ratio] 36 mg/mg Normal [facility] Comment on above: Performed By: #### M LORENZA MEDRANOM7, IPB ####[facility] (DEFAULT)[address] [place] [address] IONIZED CALCIUM, WHOLE BLOOD Ordered By: Enrico Tobias on 04-18-2025 Calcium.ionized (Bld) [Moles/Vol] 4.4 mg/dL Low 4.60 - 5.30 mg/dL [facility] Interpretation and review of laboratory results Abnormal [facility] IONIZED CALCIUM, WHOLE BLOOD on 04-18-2025 ICA 4.40 mg/dL Low 4.60-5.30 [facility] Comment on above: Performed By: #### I CA #### [facility] (DEFAULT) [address] [place] [address] MAGNESIUMon 04-18-2025 Magnesium [Mass/Vol] 2 mg/dL 1.6 - 2 .6 mg/dL [facility] Magnesium [Mass/Vol] 2.0 mg/dL Normal 1.6-2.6 [facility] Comment on above: Performed By: #### BALJIT QUINTANA, IPB ####[facility] (DEFAULT)[address] [place] [address] No Panel Informationon 04-18 Interpretation and review of laboratory results Normal [facility] PHOSPHATE, INORGANICon 04-18 Phosphate [Mass/Vol] 3.2 mg/dL 2.2 - 4 .6 mg/dL [facility] Phosphorous 3.2 mg/dL Normal 2.2-4.6 [facility] Comment on above: Performed By: #### BALJIT QUINTANA, IPB ####[facility] (DEFAULT)[address] [place] [address] CARDIAC RHYTHMon 04-17-2025 [facility] CBC,PLATELETSon 04-17-2025 Erythrocyte distribution width (RBC) [Ratio] 19.3 % High 10.8 - 14.9 % [facility] Hematocrit (Bld) [Volume fraction] 34.3 % Low 34.9 - 44.3 % [facility] Hemoglobin (Bld) [Mass/Vol] 11.3 g/dL Low 11.4 - 15.2 g/dL [facility] MCH (RBC) [Entitic mass] 31.3 pg 25.9 - 33.9 pg [facility] MCHC (RBC) [Mass/Vol] 32.9 g/dL 31.4 - 35.9 g/dL [facility] MCV (RBC) [Entitic vol] 95 fL 79.6 - 97.7 fL [facility] Platelet mean volume (Bld) [Entitic vol] 9.4 fL 8.5 - 12.2 fL [facility] Platelets (Bld) [#/Vol] 121 10*3/uL Low 150 - 393 K/uL [facility] RBC (Bld) [#/Vol] 3.61 10*6/uL Low [facility] WBC (Bld) [#/Vol] 5.24 10*3/uL 3.99 - 11.19 K/uL [facility] Hematocrit (Bld) [Volume fraction] 34.3 % Low 34.9-44.3 [facility] Comment on above: Performed By: #### L DO, MGO, IPB, CHM7 #### [facility] (DEFAULT) [address] [place] [address] Hemoglobin (Bld) [Mass/Vol] 11.3 g/dL Low 11.4-15.2 [facility] Comment on above: Performed By: #### L DO, MGO, IPB, CHM7 #### [facility] (DEFAULT) [address] [place] [address] MCV (RBC) [Entitic vol] 95.0 fL Normal 79.6-97.7 [facility] Comment on above: Performed By: #### L DO, MGO, IPB, CHM7 #### [facility] (DEFAULT) [address] [place] [address] Mean Cell Hgb 31.3 pg Normal 25.9-33.9 [facility] Comment on above: Performed By: #### L DO, MGO, IPB, CHM7 #### [facility] (DEFAULT) [address] [place] [address]36[address] Mean Cell Hgb Conc 32.9 g/dL Normal 31.4-35.9 [facility] Comment on above: Performed By: #### L DO, MGO, IPB, CHM7 #### [facility] (DEFAULT) [address] [place] [address] Platelet mean volume (Bld) [Entitic vol] 9.4 fL Normal 8.5-12.2 [facility] Comment on above: Performed By: #### L DO, MGO, IPB, CHM7 #### [facility] (DEFAULT) [address] [place] [address] Platelets (Bld) [#/Vol] 121 10*3/uL Low 150-393 [facility] Comment on above: Performed By: #### L DO, MGO, IPB, CHM7 #### [facility] (DEFAULT) [address] [place] [address] RBC (Bld) [#/Vol] 3.61 10*6/uL Low 3.91-5.04 [facility] Comment on above: Performed By: #### L DO, MGO, IPB, CHM7 #### [facility] (DEFAULT) [address] [place] [address] RBC Distribution 19.3 % High 10.8-14.9 [facility] Comment on above: Performed By: #### L DO, MGO, IPB, CHM7 #### [facility] (DEFAULT) [address] [place] [address] WBC (Bld) [#/Vol] 5.24 10*3/uL Normal 3.99-11.19 [facility] Comment on above: Performed By: #### L DO, MGO, IPB, CHM7 #### [facility] (DEFAULT) [address] [place] [address] CHEM 7 (LYTES,BUN,CREA,GLUC) on 04-17-2025 Anion gap [Moles/Vol] 8 mmol/L 7 - 17 mmol/L [facility] Chloride [Moles/Vol] 105 mmol/L 98 - 10 8 mmol/L [facility] CO2 [Moles/Vol] 29 mmol/L 21 - 31 mmol/L [facility] Creatinine [Mass/Vol] 0.52 mg/dL 0.50 - 1.20 mg/dL [facility] eGFR, CKD-EPI, Female - PINF [facility] Glucose [Mass/Vol] 91 mg/dL 70 - 179 mg/dL [facility] Osmolality Calc [Osmolality] 291 [facility] Potassium [Moles/Vol] 4.6 mmol/L 3.5 - 5.0 mmol/L [facility] Sodium [Moles/Vol] 137 mmol/L 135 - 145 mmol/L [facility] Urea nitrogen [Mass/Vol] 22 mg/dL 7 - 25 mg/dL [facility] Urea nitrogen/Creatinine [Mass ratio] 42 mg/mg [facility] Anion gap [Moles/Vol] 8 mmol/L Normal 7-17 [facility] [place] Comment on above: Performed By: #### I CA #### [facility] (DEFAULT) [address] [address] Chloride [Moles/Vol] 105 mmol/L Normal 98-108 [facility] Comment on above: Performed By: #### I CA #### [facility] (DEFAULT) [address] [address] CO2 [Moles/Vol] 29 mmol/L Normal 21-31 [facility] Comment on above: Performed By: #### I CA #### [facility] (DEFAULT) [address] [address] Creatinine [Mass/Vol] 0.52 mg/dL Normal 0.50-1.20 [facility] [place] Comment on above: Performed By: #### I CA #### [facility] (DEFAULT) [address] [address] eGFR, CKD-EPI, Female > Normal >=60 [facility] [place] Comment on above: Result Comment: Repo rted eGFR is based on the CKD-EPI 2020 equation using creatinine, age, and sex. Performed By: #### I CA #### [facility] (DEFAULT) [address] [address] Glucose [Mass/Vol] 91 mg/dL Normal Nonfastin -179 mg/dL; Fastin-99 [facility] Comment on above: Performed By: #### I CA #### [facility] (DEFAULT) [address] [place] [address] Osmolality [Osmolality] 291 mosm/kg Normal 278-305 [facility] Comment on above: Performed By: #### I CA #### [facility] (DEFAULT) [address] [place] [address] Potassium [Moles/Vol] 4.6 mmol/L Normal 3.5-5.0 [facility] Comment on above: Performed By: #### I CA #### [facility] (DEFAULT) [address] [place] [address] Sodium [Moles/Vol] 137 mmol/L Normal 135-145 [facility] Comment on above: Performed By: #### I CA #### [facility] (DEFAULT) [address] [place] [address] Urea nitrogen [Mass/Vol] 22 mg/dL Normal 7-25 [facility] Comment on above: Performed By: #### I CA #### [facility] (DEFAULT) [address] [place] [address] Urea nitrogen/Creatinine [Mass ratio] 42 mg/mg Normal [facility] Comment on above: Performed By: #### I CA #### [facility] (DEFAULT) [address] [place] [address] IONIZED CALCIUM, WHOLE BLOOD on 04-17-2025 Calcium.ionized (Bld) [Moles/Vol] 4.43 mg/dL Low 4.60 - 5.30 mg/dL [facility] ICA 4.43 mg/dL Low 4.60-5.30 [facility] Comment on above: Performed By: #### X M #### [facility] (DEFAULT) [address] [place] [address] MAGNESIUMon 04-17-2025 Magnesium [Mass/Vol] 2 mg/dL 1.6 - 2 .6 mg/dL [facility] Magnesium [Mass/Vol] 2.0 mg/dL Normal 1.6-2.6 [facility] Comment on above: Performed By: #### I CA #### [facility] (DEFAULT) [address] [place] [address] No Panel Informationon 04-17 Interpretation and review of laboratory results Normal [facility] Interpretation and review of laboratory results Abnormal [facility] PHOSPHATE, INORGANICon 04-17 Phosphate [Mass/Vol] 2.8 mg/dL 2.2 - 4 .6 mg/dL [facility] Phosphorous 2.8 mg/dL Normal 2.2-4.6 [facility] Comment on above: Performed By: #### I CA #### [facility] (DEFAULT) [address] [place], [place] [address] CBC,PLATELETSon 04-16-2025 Erythrocyte distribution width (RBC) [Ratio] 19.8 % High 10.8 - 14.9 % [facility] Hematocrit (Bld) [Volume fraction] 35 % 34.9 - 44.3 % [facility] Hemoglobin (Bld) [Mass/Vol] 11.4 g/dL 11.4 - 15.2 g/dL [facility] Interpretation and review of laboratory results Abnormal [facility] MCH (RBC) [Entitic mass] 31 pg 25.9 - 33.9 pg [facility] MCHC (RBC) [Mass/Vol] 32.6 g/dL 31.4 - 35.9 g/dL [facility] MCV (RBC) [Entitic vol] 95.1 fL 79.6 - 97.7 fL [facility] Platelet mean volume (Bld) [Entitic vol] 8.8 fL 8.5 - 12.2 fL [facility] Platelets (Bld) [#/Vol] 116 10*3/uL Low 150 - 393 K/uL [facility] RBC (Bld) [#/Vol] 3.68 10*6/uL Low [facility] WBC (Bld) [#/Vol] 5.6 10*3/uL 3.99 - 11.19 K/uL [facility] Hematocrit (Bld) [Volume fraction] 35.0 % Normal 34.9-44.3 [facility] Comment on above: Performed By: #### L DO, MGO, IPB, CHM7 #### [facility] (DEFAULT) [address] [place] [address] Hemoglobin (Bld) [Mass/Vol] 11.4 g/dL Normal 11.4-15.2 [facility] Comment on above: Performed By: #### L DO, MGO, IPB, CHM7 #### [facility] (DEFAULT) [address] [place] [address] MCV (RBC) [Entitic vol] 95.1 fL Normal 79.6-97.7 [facility] Comment on above: Performed By: #### L DO, MGO, IPB, CHM7 #### [facility] (DEFAULT) [address] [place] [address] Mean Cell Hgb 31.0 pg Normal 25.9-33.9 [facility] Comment on above: Performed By: #### L DO, MGO, IPB, CHM7 #### [facility] (DEFAULT) [address] [place] [address] Mean Cell Hgb Conc 32.6 g/dL Normal 31.4-35.9 [facility] Comment on above: Performed By: #### L DO, MGO, IPB, CHM7 #### [facility] (DEFAULT) [address] [place] [address] Platelet mean volume (Bld) [Entitic vol] 8.8 fL Normal 8.5-12.2 [facility] Comment on above: Performed By: #### L DO, MGO, IPB, CHM7 #### [facility] (DEFAULT) [address] [place] [address] Platelets (Bld) [#/Vol] 116 10*3/uL Low 150-393 [facility] Comment on above: Performed By: #### L DO, MGO, IPB, CHM7 #### [facility] (DEFAULT) [address] [place] [address] RBC (Bld) [#/Vol] 3.68 10*6/uL Low 3.91-5.04 [facility] Comment on above: Performed By: #### L DO, MGO, IPB, CHM7 #### [facility] (DEFAULT) [address] [place] [address] RBC Distribution 19.8 % High 10.8-14.9 [facility] Comment on above: Performed By: #### L DO, MGO, IPB, CHM7 #### [facility] (DEFAULT) [address] [place] [address] WBC (Bld) [#/Vol] 5.60 10*3/uL Normal 3.99-11.19 [facility] Comment on above: Performed By: #### L DO, MGO, IPB, CHM7 #### [facility] (DEFAULT) [address] [place] [address] CHEM 7 (LYTES,BUN,CREA,GLUC) on 04-16-2025 Anion gap [Moles/Vol] 12 mmol/L 7 - 17 mmol/L [facility] Chloride [Moles/Vol] 105 mmol/L 98 - 10 8 mmol/L [facility] CO2 [Moles/Vol] 24 mmol/L 21 - 31 mmol/L [facility] Creatinine [Mass/Vol] 0.5 mg/dL 0.50 - 1.20 mg/dL [facility] eGFR, CKD-EPI, Female - PINF [facility] Glucose [Mass/Vol] 85 mg/dL 70 - 179 mg/dL [facility] Osmolality Calc [Osmolality] 289 [facility] Potassium [Moles/Vol] 4.3 mmol/L 3.5 - 5.0 mmol/L [facility] Sodium [Moles/Vol] 137 mmol/L 135 - 145 mmol/L [facility] Urea nitrogen [Mass/Vol] 20 mg/dL 7 - 25 mg/dL [facility] Urea nitrogen/Creatinine [Mass ratio] 40 mg/mg [facility] Anion gap [Moles/Vol] 12 mmol/L Normal 7-17 [facility] [place] Comment on above: Performed By: #### L DO, MGO, IPB, CHM7 #### [facility] (DEFAULT) [address] [place] [address] Chloride [Moles/Vol] 105 mmol/L Normal 98-108 [facility] Comment on above: Performed By: #### L DO, MGO, IPB, CHM7 #### [facility] (DEFAULT) [address] [place] [address] CO2 [Moles/Vol] 24 mmol/L Normal 21-31 [facility] Comment on above: Performed By: #### L DO, MGO, IPB, CHM7 #### [facility] (DEFAULT) [address] [place] [address] Creatinine [Mass/Vol] 0.50 mg/dL Normal 0.50-1.20 [facility] [place] Comment on above: Performed By: #### L DO, MGO, IPB, CHM7 #### [facility] (DEFAULT) [address] [place] [address] eGFR, CKD-EPI, Female > Normal >=60 [facility] [place] Comment on above: Result Comment: Repo rted eGFR is based on the CKD-EPI 2020 equation using creatinine, age, and sex. Performed By: #### L DO, MGO, IPB, CHM7 #### [facility] (DEFAULT) [address] [place] [address] Glucose [Mass/Vol] 85 mg/dL Normal Nonfastin -179 mg/dL; Fastin-99 [facility] Comment on above: Performed By: #### L DO, MGO, IPB, CHM7 #### [facility] (DEFAULT) [address] [place] [address] Osmolality [Osmolality] 289 mosm/kg Normal 278-305 [facility] Comment on above: Performed By: #### L DO, MGO, IPB, CHM7 #### [facility] (DEFAULT) [address] [place] [address] Potassium [Moles/Vol] 4.3 mmol/L Normal 3.5-5.0 [facility] [place] Comment on above: Performed By: #### L DO, MGO, IPB, CHM7 #### [facility] (DEFAULT) [address] [place] [address] Sodium [Moles/Vol] 137 mmol/L Normal 135-145 [facility] Comment on above: Performed By: #### L DO, MGO, IPB, CHM7 #### [facility] (DEFAULT) [address] [place] [address] Urea nitrogen [Mass/Vol] 20 mg/dL Normal 7-25 [facility] Comment on above: Performed By: #### L DO, MGO, IPB, CHM7 #### [facility] (DEFAULT) [address] [place] [address] Urea nitrogen/Creatinine [Mass ratio] 40 mg/mg Normal [facility] Comment on above: Performed By: #### L DO, MGO, IPB, CHM7 #### [facility] (DEFAULT) [address] [place] [address] IONIZED CALCIUM, WHOLE BLOOD Ordered By: Brenden Khan on 04-16-2025 Calcium.ionized (Bld) [Moles/Vol] 3.12 mg/dL Critically low 4.60 - 5.30 mg/dL [facility] Interpretation and review of laboratory results Abnormal [facility] IONIZED CALCIUM, WHOLE BLOOD on 04-16-2025 ICA 3.12 mg/dL Critically low 4.60-5.30 [facility] Comment on above: Performed By: #### X M #### [facility] (DEFAULT) [address] [place] [address] MAGNESIUMon 04-16-2025 Magnesium [Mass/Vol] 2.1 mg/dL 1.6 - 2 .6 mg/dL [facility] Magnesium [Mass/Vol] 2.1 mg/dL Normal 1.6-2.6 [facility] Comment on above: Performed By: #### L DO, MGO, IPB, CHM7 #### [facility] (DEFAULT) [address] [place] [address] No Panel Informationon 04-16 Interpretation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 mg/dL 70 - 179 mg/dL [facility] Osmolality Calc [Osmolality] 293 [facility] Potassium [Moles/Vol] 3.5 mmol/L 3.5 - 5.0 mmol/L [facility] Sodium [Moles/Vol] 138 mmol/L 135 - 145 mmol/L [facility] Urea nitrogen [Mass/Vol] 24 mg/dL 7 - 25 mg/dL [facility] Urea nitrogen/Creatinine [Mass ratio] 28 mg/mg [facility] Anion gap [Moles/Vol] 12 mmol/L Normal 7-17 [facility] Comment on above: Performed By: #### X M #### [facility] (DEFAULT) [address] [place] [address] Chloride [Moles/Vol] 107 mmol/L Normal 98-108 [facility] Comment on above: Performed By: #### X M #### [facility] (DEFAULT) [address] [place] [address]391 CO2 [Moles/Vol] 23 mmol/L Normal 21-31 [facility] Comment on above: Performed By: #### X M #### [facility] (DEFAULT) [address] [place] [address] 27183 Creatinine [Mass/Vol] 0.86 mg/dL Normal 0.50-1.20 [facility] Comment on above: Performed By: #### X M #### [facility] (DEFAULT) [address] [place] [address] 84051 GFR/1.73 sq M.predicted among non-blacks MDRD (S/P/Bld) [Vol rate/Area] 68 mL/min/{1.73_m2} Normal >=60 [facility] Comment on above: Result Comment: Repo rted eGFR is based on the CKD-EPI 2020 equation using creatinine, age, and sex. Performed By: #### X M #### [facility] (DEFAULT) [address] [place] [address] Glucose [Mass/Vol] 119 mg/dL Normal Nonfastin -179 mg/dL; Fastin-99 [facility] Comment on above: Performed By: #### X M #### [facility] (DEFAULT) [address] [place] [address] 40128 Osmolality [Osmolality] 293 mosm/kg Normal 278-305 [facility] Comment on above: Performed By: #### X M #### [facility] (DEFAULT) [address] [place] [address] 39866 Potassium [Moles/Vol] 3.5 mmol/L Normal 3.5-5.0 [facility] Comment on above: Performed By: #### X M #### [facility] (DEFAULT) [address] [place] [address] 60997 Sodium [Moles/Vol] 138 mmol/L Normal 135-145 [facility] Comment on above: Performed By: #### X M #### [facility] (DEFAULT) [address] [place] [address] 54792 Urea nitrogen [Mass/Vol] 24 mg/dL Normal 7-25 [facility] Comment on above: Performed By: #### X M #### [facility] (DEFAULT) [address] [place] [address] Urea nitrogen/Creatinine [Mass ratio] 28 mg/mg Normal [facility] Comment on above: Performed By: #### X M #### [facility] (DEFAULT) [address] [place] [address] 41763 Culture, Blood (WB)on 2024 CUB Blood cultures x2, f rom two different sites No growth in 5 days. Normal [facility] Comment on above: Performed By: #### L 501.4021, M200.1000, L503.6005, L100.0100, L500.4050, L500.3400, L300.4310 ####[facility] [id number] [place], [address] IONIZED CALCIUM, WHOLE BLOOD on 04-13-2025 ICA 4.19 mg/dL Low 4.60-5.30 [facility] Comment on above: Performed By: #### I CA #### [facility] (DEFAULT) [address] [place] [address]15 Calcium.ionized (Bld) [Moles/Vol] 4.12 mg/dL Low 4.60 - 5.30 mg/dL [facility] Interpretation and review of laboratory results Abnormal [facility] ICA 4.12 mg/dL Low 4.60-5.30 [facility] Comment on above: Performed By: #### I CA ####[facility] (DEFAULT)[address] [place] [address] LACTATE DEHYDROGENASEon 03-17 LD Total 309 U/L High 100-190 [facility] Comment on above: Performed By: #### L DO, MGO, IPB, CHM7 #### [facility] (DEFAULT) [address] [place] [address] 21140 MAGNESIUMon 04-13-2025 Magnesium [Mass/Vol] 2.4 mg/dL Normal 1.6-2.6 [facility] Comment on above: Performed By: #### L DO, MGO, IPB, CHM7 #### [facility] (DEFAULT) [address] [place] [address] 43391 Magnesium [Mass/Vol] 1.9 mg/dL 1.6 - 2 .6 mg/dL [facility] Magnesium [Mass/Vol] 1.9 mg/dL Normal 1.6-2.6 [facility] Comment on above: Performed By: #### X M #### [facility] (DEFAULT) [address] [place] [address] 645[address] No Panel Informationon 04-13 Interpretation and review of laboratory results Normal [facility] PHOSPHATE, INORGANICon 04-13 Phosphorous 3.1 mg/dL Normal 2.2-4.6 [facility] Comment on above: Performed By: #### L DO, MGO, IPB, CHM7 #### [facility] (DEFAULT) [address] [place] [address] Phosphate [Mass/Vol] 2.9 mg/dL 2.2 - 4 .6 mg/dL [facility] Phosphorous 2.9 mg/dL Normal 2.2-4.6 [facility] Comment on above: Performed By: #### X M #### [facility] (DEFAULT) [address] [place] [address] PROTEIN TOTALon 04-13-2025 Interpretation and review of laboratory results Abnormal [facility] Protein [Mass/Vol] 4.5 g/dL Low 6.4 - 8.3 g/dL [facility] Protein [Mass/Vol] 4.5 g/dL Low 6.4-8.3 [facility] Comment on above: Performed By: #### X M #### [facility] (DEFAULT) [address] [place] [address] Portable XR Chest Viewson RADIOLOGY RADIOLOGY [facility] Radiology Study observation (narrative) [facility] XR CHEST 1 VIEW PORTABLEon 0 04-13-2025 XR CHEST 1 VIEW PORTABLE EXAM: XR CHEST 1 VIEW PORTABLE, 04/13/2025 01:28 AM COMPARISON: CT chest and chest radiograph April 12, 2025 CLINICAL INDICATIONS: R sided pleural effusion FINDINGS: (Adequate technique) Implanted Devices: Stable right subclavian approach CVC. Thorax: Interval decrease in a now small right pleural effusion, with residual right basilar atelectasis. Possible trace left pleural effusion. No pneumothorax. Stable heart size. No acute osseous abnormality. Degenerative changes of the visualized spine and glenohumeral joints. Fixation hardware projects over the lower cervical and upper thoracic spine. Cutaneous roderick project over the lower neck. Cholecystectomy. IMPRESSION: 1. Interval decrease in a now small right pleural effusion. 2. Possible trace left pleural effusion. I personally viewed and interpreted these images and I have reviewed and approved this report. Normal [facility] CBC,PLATELETSon 04-12-2025 Erythrocyte distribution width (RBC) [Ratio] 20.1 % High 10.8 - 14.9 % [facility] Hematocrit (Bld) [Volume fraction] 33.7 % Low 34.9 - 44.3 % [facility] Hemoglobin (Bld) [Mass/Vol] 11.3 g/dL Low 11.4 - 15.2 g/dL [facility] Interpretation and review of laboratory results Abnormal [facility] MCH (RBC) [Entitic mass] 30.7 pg 25.9 - 33.9 pg [facility] MCHC (RBC) [Mass/Vol] 33.5 g/dL 31.4 - 35.9 g/dL [facility] MCV (RBC) [Entitic vol] 91.6 fL 79.6 - 97.7 fL [facility] Platelet mean volume (Bld) [Entitic vol] 9.7 fL 8.5 - 12.2 fL [facility] Platelets (Bld) [#/Vol] 124 10*3/uL Low 150 - 393 K/uL [facility] RBC (Bld) [#/Vol] 3.68 10*6/uL Low [facility] WBC (Bld) [#/Vol] 6.39 10*3/uL 3.99 - 11.19 K/uL [facility] Hematocrit (Bld) [Volume fraction] 33.7 % Low 34.9-44.3 [facility] Comment on above: Performed By: #### L DO, MGO, IPB, CHM7 #### [facility] (DEFAULT) [address] [address] Hemoglobin (Bld) [Mass/Vol] 11.3 g/dL Low 11.4-15.2 [facility] Comment on above: Performed By: #### L DO, MGO, IPB, CHM7 #### [facility] (DEFAULT) [address] [address] MCV (RBC) [Entitic vol] 91.6 fL Normal 79.6-97.7 [facility] Comment on above: Performed By: #### L DO, MGO, IPB, CHM7 #### [facility] (DEFAULT) [address] [place] [address] Mean Cell Hgb 30.7 pg Normal 25.9-33.9 [facility] Comment on above: Performed By: #### L DO, MGO, IPB, CHM7 #### [facility] (DEFAULT) [address] [address] Mean Cell Hgb Conc 33.5 g/dL Normal 31.4-35.9 [facility] Comment on above: Performed By: #### L DO, MGO, IPB, CHM7 #### [facility] (DEFAULT) [address] [place] [address] Platelet mean volume (Bld) [Entitic vol] 9.7 fL Normal 8.5-12.2 [facility] Comment on above: Performed By: #### L DO, MGO, IPB, CHM7 #### [facility] (DEFAULT) [address] [place] [address] Platelets (Bld) [#/Vol] 124 10*3/uL Low 150-393 [facility] Comment on above: Performed By: #### L DO, MGO, IPB, CHM7 #### [facility] (DEFAULT) [address] [place] [address] RBC (Bld) [#/Vol] 3.68 10*6/uL Low 3.91-5.04 [facility] Comment on above: Performed By: #### L DO, MGO, IPB, CHM7 #### [facility] (DEFAULT) [address] [place] [address] RBC Distribution 20.1 % High 10.8-14.9 [facility] Comment on above: Performed By: #### L DO, MGO, IPB, CHM7 #### [facility] (DEFAULT) [address] [place] [address] WBC (Bld) [#/Vol] 6.39 10*3/uL Normal 3.99-11.19 [facility] Comment on above: Performed By: #### L DO, MGO, IPB, CHM7 #### [facility] (DEFAULT) [address] [place] [address] CHEM 7 (LYTES,BUN,CREA,GLUC) on 04-12-2025 Anion gap [Moles/Vol] 12 mmol/L 7 - 17 mmol/L [facility] Chloride [Moles/Vol] 110 mmol/L High 98 - 10 8 mmol/L [facility] CO2 [Moles/Vol] 23 mmol/L 21 - 31 mmol/L [facility] Creatinine [Mass/Vol] 0.74 mg/dL 0.50 - 1.20 mg/dL [facility] eGFR, CKD-EPI, Female 81 - PINF [facility] Glucose [Mass/Vol] 83 mg/dL 70 - 179 mg/dL [facility] Interpretation and review of laboratory results Abnormal [facility] Osmolality Calc [Osmolality] 297 [facility] Potassium [Moles/Vol] 3.7 mmol/L 3.5 - 5.0 mmol/L [facility] Sodium [Moles/Vol] 141 mmol/L 135 - 145 mmol/L [facility] Urea nitrogen [Mass/Vol] 25 mg/dL 7 - 25 mg/dL [facility] Urea nitrogen/Creatinine [Mass ratio] 34 mg/mg [facility] Anion gap [Moles/Vol] 12 mmol/L Normal 7-17 [facility] Comment on above: Performed By: #### L DO, MGO, IPB, CHM7 #### [facility] (DEFAULT) [address] [place] [address] Chloride [Moles/Vol] 110 mmol/L High 98-108 [facility] Comment on above: Performed By: #### L DO, MGO, IPB, CHM7 #### [facility] (DEFAULT) [address] [place] [address] CO2 [Moles/Vol] 23 mmol/L Normal 21-31 [facility] Comment on above: Performed By: #### L DO, MGO, IPB, CHM7 #### [facility] (DEFAULT) [address] [place] [address] Creatinine [Mass/Vol] 0.74 mg/dL Normal 0.50-1.20 [facility] Comment on above: Performed By: #### L DO, MGO, IPB, CHM7 #### [facility] (DEFAULT) [address] [place] [address] GFR/1.73 sq M.predicted among non-blacks MDRD (S/P/Bld) [Vol rate/Area] 81 mL/min/{1.73_m2} Normal >=60 [facility] Comment on above: Result Comment: Repo rted eGFR is based on the CKD-EPI 2020 equation using creatinine, age, and sex. Performed By: #### L DO, MGO, IPB, CHM7 #### [facility] (DEFAULT) [address] [place] [address] Glucose [Mass/Vol] 83 mg/dL Normal Nonfastin -179 mg/dL; Fastin-99 [facility] Comment on above: Performed By: #### L DO, MGO, IPB, CHM7 #### [facility] (DEFAULT) [address] [place] [address] Osmolality [Osmolality] 297 mosm/kg Normal 278-305 [facility] Comment on above: Performed By: #### L DO, MGO, IPB, CHM7 #### [facility] (DEFAULT) [address] [place] [address] Potassium [Moles/Vol] 3.7 mmol/L Normal 3.5-5.0 [facility] Comment on above: Performed By: #### L DO, MGO, IPB, CHM7 #### [facility] (DEFAULT) [address] [place] [address] Sodium [Moles/Vol] 141 mmol/L Normal 135-145 [facility] Comment on above: Performed By: #### L DO, MGO, IPB, CHM7 #### [facility] (DEFAULT) [address] [place] [address] Urea nitrogen [Mass/Vol] 25 mg/dL Normal 7-25 [facility] Comment on above: Performed By: #### L DO, MGO, IPB, CHM7 #### [facility] (DEFAULT) [address] [place] [address], [place] [address] Urea nitrogen/Creatinine [Mass ratio] 34 mg/mg Normal [facility] Comment on above: Performed By: #### L , ARNEL, IPOlga, CHM7 #### [facility] (DEFAULT) [address] [place] [address] CT CHEST WITHOUT CONTRASTon 04-12-2025 CT CHEST WITHOUT CONTRAST EXAM: CT CHEST WITHOUT CONTRAST, 04/12/2025 13:39 PM COMPARISON: April 08, 2025 CLINICAL INDICATIONS: increasing oxygen demand RELEVANT CLINICAL HISTORY: TECHNIQUE: CT images of the chest were obtained without intravenous contrast. FINDINGS: Lungs and Pleura: Moderate right and small left pleural effusions are present.. Dense atelectasis is present in the right middle and right lower lobes. Additional patchy groundglass airspace opacities throughout the right upper lobe. Tracheobronchial tree: There is partial opacification of the bronchus intermedius and right lower lobe bronchi secondary to layering mucoid debris. Mediastinum/Leatha: No mediastinal or hilar lymphadenopathy. Axilla and Supraclavicular Regions: No axillary or supraclavicular adenopathy. Multinodular thyroid gland. Cardiovascular: The cardiac chambers are within normal limits. The pericardium is normal. The aorta and its arch branch vessels are unremarkable. The pulmonary arteries are also unremarkable. Right-sided CVC with tip in the mid SVC. Upper Abdomen: Limited noncontrast evaluation. The gallbladder surgically absent. There is fatty atrophy of the pancreas. Bones and Soft Tissue: No suspicious osseous lesion. Advanced degenerative changes of the left shoulder. Partially imaged cervicothoracic spinal fusion hardware with surgical drains in place. IMPRESSION: 1. Mucoid debris within the bronchus intermedius and right lower lobe bronchi with dense atelectasis/consolidation in the right middle and right lower lobes. Consider mild aspiration. 2. Additional patchy groundglass opacities in the right upper lobe, nonspecific but also likely infectious/inflammatory. 3. Moderate right and small left pleural effusions. Normal [facility] CT Chest WO contraston 04-12 RADIOLOGY RADIOLOGY [facility] Radiology Study observation (narrative) [facility] IMMUNOCOMPROMISED RESPIRATOR Y PANELon 04-12-2025 Adenovirus - Pcr Not detected Normal Not Detected [facility] Comment on above: Order Comment: Viral transport media (red screw top with red liquid media) or BAL - Collection must be done while wearing N-95 mask, eye protection, gown and gloves. \X09\Results should be used in conjunction with other clinical and laboratory findings. This result does not rule out co-infections with pathogens that are not screened for by the Respiratory Panel(RP). This RP assay was performed using a Film Array multiplex nucleic acid assay. Performed By: #### I CRESP #### [facility] (DEFAULT) [address] [address] Bordetella Parapertussis Not detected Normal Not Detected [facility] Comment on above: Order Comment: Viral transport media (red screw top with red liquid media) or BAL - Collection must be done while wearing N-95 mask, eye protection, gown and gloves. \X09\Results should be used in conjunction with other clinical and laboratory findings. This result does not rule out co-infections with pathogens that are not screened for by the Respiratory Panel(RP). This RP assay was performed using a Film Array multiplex nucleic acid assay. Performed By: #### I CRESP #### [facility] (DEFAULT) [address] [address] Bordetella Pertussis Not detected Normal Not Detected [facility] Comment on above: Order Comment: Viral transport media (red screw top with red liquid media) or BAL - Collection must be done while wearing N-95 mask, eye protection, gown and gloves. \X09\Results should be used in conjunction with other clinical and laboratory findings. This result does not rule out co-infections with pathogens that are not screened for by the Respiratory Panel(RP). This RP assay was performed using a Film Array multiplex nucleic acid assay. Performed By: #### I CRESP #### [facility] (DEFAULT) [address] [address] Chlamydia Pneumoniae Not detected Normal Not Detected [facility] Comment on above: Order Comment: Viral transport media (red screw top with red liquid media) or BAL - Collection must be done while wearing N-95 mask, eye protection, gown and gloves. \X09\Results should be used in conjunction with other clinical and laboratory findings. This result does not rule out co-infections with pathogens that are not screened for by the Respiratory Panel(RP). This RP assay was performed using a Film Array multiplex nucleic acid assay. Performed By: #### I CRESP #### [facility] (DEFAULT) [address] [place] [address] Coronavirus 229E Not detected Normal Not Detected [facility] Comment on above: Order Comment: Viral transport media (red screw top with red liquid media) or BAL - Collection must be done while wearing N-95 mask, eye protection, gown and gloves. \X09\Results should be used in conjunction with other clinical and laboratory findings. This result does not rule out co-infections with pathogens that are not screened for by the Respiratory Panel(RP). This RP assay was performed using a Film Array multiplex nucleic acid assay. Performed By: #### I CRESP #### [facility] (DEFAULT) [address] [place] [address] Coronavirus Hku1 Not detected Normal Not Detected [facility] Comment on above: Order Comment: Viral transport media (red screw top with red liquid media) or BAL - Collection must be done while wearing N-95 mask, eye protection, gown and gloves. \X09\Results should be used in conjunction with other clinical and laboratory findings. This result does not rule out co-infections with pathogens that are not screened for by the Respiratory Panel(RP). This RP assay was performed using a Film Array multiplex nucleic acid assay. Performed By: #### I CRESP #### [facility] (DEFAULT) [address] [place] [address] Coronavirus Nl63 Not detected Normal Not Detected [facility] Comment on above: Order Comment: Viral transport media (red screw top with red liquid media) or BAL - Collection must be done while wearing N-95 mask, eye protection, gown and gloves. \X09\Results should be used in conjunction with other clinical and laboratory findings. This result does not rule out co-infections with pathogens that are not screened for by the Respiratory Panel(RP). This RP assay was performed using a Film Array multiplex nucleic acid assay. Performed By: #### I CRESP #### [facility] (DEFAULT) [address] [place] [address] Coronavirus Oc43 Not detected Normal Not Detected [facility] Comment on above: Order Comment: Viral transport media (red screw top with red liquid media) or BAL - Collection must be done while wearing N-95 mask, eye protection, gown and gloves. \X09\Results should be used in conjunction with other clinical and laboratory findings. This result does not rule out co-infections with pathogens that are not screened for by the Respiratory Panel(RP). This RP assay was performed using a Film Array multiplex nucleic acid assay. Performed By: #### I CRESP #### [facility] (DEFAULT) [address] [place] [address] Influenza A - Pcr Not detected Normal Not Detected [facility] Comment on above: Order Comment: Viral transport media (red screw top with red liquid media) or BAL - Collection must be done while wearing N-95 mask, eye protection, gown and gloves. \X09\Results should be used in conjunction with other clinical and laboratory findings. This result does not rule out co-infections with pathogens that are not screened for by the Respiratory Panel(RP). This RP assay was performed using a Film Array multiplex nucleic acid assay. Performed By: #### I CRESP #### [facility] (DEFAULT) [address] [place] [address] Influenza B - Pcr Not detected Normal Not Detected [facility] Comment on above: Order Comment: Viral transport media (red screw top with red liquid media) or BAL - Collection must be done while wearing N-95 mask, eye protection, gown and gloves. \X09\Results should be used in conjunction with other clinical and laboratory findings. This result does not rule out co-infections with pathogens that are not screened for by the Respiratory Panel(RP). This RP assay was performed using a Film Array multiplex nucleic acid assay. Performed By: #### I CRESP #### [facility] (DEFAULT) [address] [place] [address] Metapneumovirus - Pcr Not detected Normal Not Detected [facility] Comment on above: Order Comment: Viral transport media (red screw top with red liquid media) or BAL - Collection must be done while wearing N-95 mask, eye protection, gown and gloves. \X09\Results should be used in conjunction with other clinical and laboratory findings. This result does not rule out co-infections with pathogens that are not screened for by the Respiratory Panel(RP). This RP assay was performed using a Film Array multiplex nucleic acid assay. Performed By: #### I CRESP #### [facility] (DEFAULT) [address] [address] Mycoplasma Pneumoniae Not detected Normal Not Detected [facility] Comment on above: Order Comment: Viral transport media (red screw top with red liquid media) or BAL - Collection must be done while wearing N-95 mask, eye protection, gown and gloves. \X09\Results should be used in conjunction with other clinical and laboratory findings. This result does not rule out co-infections with pathogens that are not screened for by the Respiratory Panel(RP). This RP assay was performed using a Film Array multiplex nucleic acid assay. Performed By: #### I CRESP #### [facility] (DEFAULT) [address] [address] Parainfluenza 1 - Pcr Not detected Normal Not Detected [facility] Comment on above: Order Comment: Viral transport media (red screw top with red liquid media) or BAL - Collection must be done while wearing N-95 mask, eye protection, gown and gloves. \X09\Results should be used in conjunction with other clinical and laboratory findings. This result does not rule out co-infections with pathogens that are not screened for by the Respiratory Panel(RP). This RP assay was performed using a Film Array multiplex nucleic acid assay. Performed By: #### I CRESP #### [facility] (DEFAULT) [address] [place] [address] Parainfluenza 2 - Pcr Not detected Normal Not Detected [facility] Comment on above: Order Comment: Viral transport media (red screw top with red liquid media) or BAL - Collection must be done while wearing N-95 mask, eye protection, gown and gloves. \X09\Results should be used in conjunction with other clinical and laboratory findings. This result does not rule out co-infections with pathogens that are not screened for by the Respiratory Panel(RP). This RP assay was performed using a Film Array multiplex nucleic acid assay. Performed By: #### I CRESP #### [facility] (DEFAULT) [address] [address] Parainfluenza 3 - Pcr Not detected Normal Not Detected [facility] Comment on above: Order Comment: Viral transport media (red screw top with red liquid media) or BAL - Collection must be done while wearing N-95 mask, eye protection, gown and gloves. \X09\Results should be used in conjunction with other clinical and laboratory findings. This result does not rule out co-infections with pathogens that are not screened for by the Respiratory Panel(RP). This RP assay was performed using a Film Array multiplex nucleic acid assay. Performed By: #### I CRESP #### [facility] (DEFAULT) [address] [place] [phone] Parainfluenza 4 - Pcr Not detected Normal Not Detected [facility] Comment on above: Order Comment: Viral transport media (red screw top with red liquid media) or BAL - Collection must be done while wearing N-95 mask, eye protection, gown and gloves. \X09\Results should be used in conjunction with other clinical and laboratory findings. This result does not rule out co-infections with pathogens that are not screened for by the Respiratory Panel(RP). This RP assay was performed using a Film Array multiplex nucleic acid assay. Performed By: #### I CRESP #### [facility] (DEFAULT) [address] [place] [address] Rhinovirus/Enterovirus - PCR Not detected Normal Not Detected [facility] Comment on above: Order Comment: Viral transport media (red screw top with red liquid media) or BAL - Collection must be done while wearing N-95 mask, eye protection, gown and gloves. \X09\Results should be used in conjunction with other clinical and laboratory findings. This result does not rule out co-infections with pathogens that are not screened for by the Respiratory Panel(RP). This RP assay was performed using a Film Array multiplex nucleic acid assay. Performed By: #### I CRESP #### [facility] (DEFAULT) [address] [address] Rsv - Pcr Not detected Normal Not Detected [facility] Comment on above: Order Comment: Viral transport media (red screw top with red liquid media) or BAL - Collection must be done while wearing N-95 mask, eye protection, gown and gloves. \X09\Results should be used in conjunction with other clinical and laboratory findings. This result does not rule out co-infections with pathogens that are not screened for by the Respiratory Panel(RP). This RP assay was performed using a Film Array multiplex nucleic acid assay. Performed By: #### I CRESP #### [facility] (DEFAULT) [address] [address] SARS-CoV-2 (COVID-19) RNA LANE+probe Ql (Unsp spec) Not detected Normal NOT DETECTED [facility] Comment on above: Order Comment: Viral transport media (red screw top with red liquid media) or BAL - Collection must be done while wearing N-95 mask, eye protection, gown and gloves. \X09\Results should be used in conjunction with other clinical and laboratory findings. This result does not rule out co-infections with pathogens that are not screened for by the Respiratory Panel(RP). This RP assay was performed using a Film Array multiplex nucleic acid assay. Performed By: #### I CRESP #### [facility] [facility] ([facility] [address] [address] IONIZED CALCIUM, WHOLE BLOOD Ordered By: Megan Santana on 04-12-2025 Calcium.ionized (Bld) [Moles/Vol] 4.34 mg/dL Low 4.60 - 5.30 mg/dL [facility] Interpretation and review of laboratory results Abnormal [facility] IONIZED CALCIUM, WHOLE BLOOD on 04-12-2025 ICA 4.34 mg/dL Low 4.60-5.30 [facility] Comment on above: Performed By: #### L ARNEL TOBIAS IPB, CHM7 #### [facility] (DEFAULT) [address] [place] [phone] MAGNESIUMon 04-12-2025 Magnesium [Mass/Vol] 2.2 mg/dL 1.6 - 2 .6 mg/dL [facility] Magnesium [Mass/Vol] 2.2 mg/dL Normal 1.6-2.6 [facility] Comment on above: Performed By: #### L ARNEL TOBIAS IPB, CHM7 #### [facility] (DEFAULT) [address] [place] [address] No Panel Informationon 04-12 Interpretation and review of laboratory results Normal [facility] PHOSPHATE, INORGANICon 04-12 Phosphate [Mass/Vol] 3 mg/dL 2.2 - 4 .6 mg/dL [facility] Phosphorous 3.0 mg/dL Normal 2.2-4.6 [facility] Comment on above: Performed By: #### L ARNEL TOBIAS IPB, CHM7 #### [facility] (DEFAULT) [address] [place] [address] Portable XR Chest Viewson RADIOLOGY RADIOLOGY [facility] Radiology Study observation (narrative) [facility] Respiratory virus DNA+RNA NA A+probe Nom (Unsp spec)Ordered By: Saloni Perdue on 04-12-[address]+probe Nom (Unsp spec) Not detected Not Detected [facility] B. parapertussis DNA LANE+probe Ql (Unsp spec) Not detected Not Detected [facility] B. pertussis DNA LANE+probe Ql (Unsp spec) Not detected Not Detected [facility] C. pneumoniae DNA LANE+probe Ql (Unsp spec) Not detected Not Detected [facility] FLUAV RNA LANE+probe Ql (Unsp spec) Not detected Not [facility]ed [facility] FLUBV RNA LANE+probe Ql (Unsp spec) Not detected Not Detected [facility] HCoV 229E RNA LANE+non-probe Ql (Nph) Not detected Not Detected [facility] HCoV HKU1 RNA LANE+non-probe Ql (Nph) Not detected Not Detected [facility] HCoV NL63 RNA LANE+non-probe Ql (Nph) Not detected Not Detected [facility] HCoV OC43 RNA LANE+non-probe Ql (Nph) Not detected Not Detected [facility] hMPV A RNA LANE+probe Ql (Unsp spec) Not detected Not Detected [facility] Interpretation and review of laboratory results Normal [facility] M. pneumoniae DNA LANE+probe Ql (Unsp spec) Not detected Not Detected [facility] Parainfluenza virus [address]+probe Ql (Unsp spec) Not detected Not Detected [facility] Parainfluenza virus [address]+probe Ql (Unsp spec) Not detected Not Detected [facility] Parainfluenza virus [address] L[address]+probe Ql (Unsp spec) Not detected Not Detected [facility] Parainfluenza virus 4 RNA LANE+probe Ql (Unsp spec) Not detected Not Detected [facility] Rhinovirus+Enterovirus RNA LANE+probe Ql (Unsp spec) Not detected Not Detected [facility] RSV RNA LANE+probe Ql (Unsp spec) Not detected Not Detected [facility] SARS-CoV-2 (COVID-19) RNA LANE+probe Ql (Unsp spec) Not detected [facility] CHEST 1 VIEW PORTABLEon 0 04-12-2025 XR CHEST 1 VIEW PORTABLE EXAM: XR CHEST 1 VIEW PORTABLE, 04/12/2025 05:51 AM COMPARISON: April 10, 2025 CLINICAL INDICATIONS: Increased oxygen requirements RELEVANT CLINICAL HISTORY: FINDINGS: (Adequate technique) Implanted Devices: Right-sided CVC with tip in the mid SVC. Thorax: Interval development of consolidative and atelectatic opacities in the lower right lung. Small to moderate right pleural effusion appears increased in size. Likely trace pleural fluid on the left. The heart size is within normal limits. Cervicothoracic fusion hardware is partially included in the [id number]. IMPRESSION: Interval development of dense consolidative and atelectatic opacities in the lower right lung. Consider mild aspiration or mucous plugging. Enlarging right greater than left pleural effusions. Normal [facility] XR Cervical spine 2 Viewson 04-12-2025 RADIOLOGY RADIOLOGY [facility] Radiology Study observation (narrative) [facility] XR Cervical spine 2 ViewsOrd ered By: Jagdeep Gonzalez on 04-12-2025 [facility] Work Phone: XR SPINE CERVICAL 2-3 VIEWSo n 04-12-2025 XR SPINE CERVICAL 2-3 VIEWS EXAM: XR SPINE CERVICAL 2-3 VIEWS, 04/12/2025 14:55 PM COMPARISON: MRI cervical spine April 09, [address] cervical spine April 08, 2025 CLINICAL INDICATIONS: s/p C4-T2 fusion RELEVANT CLINICAL HISTORY: FINDINGS: 2 images obtained. Postoperative changes are evident within the posterior soft tissues. Skin closure roderick in place. Status post posterior fusion C4-T2. Visualization of the cervicothoracic junction is limited by overlap of the patient's shoulders however alignment appears grossly anatomic with intact hardware. 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 Prevertebral soft tissues appear normal. IMPRESSION: Postoperative changes from posterior fusion C4-T2 without acute complication. Normal [facility] *ARTERIAL LINEon 04-11-2025 [facility] CBC,PLATELETSon 04-11-2025 Erythrocyte distribution width (RBC) [Ratio] 19.7 % High 10.8 - 14.9 % [facility] Hematocrit (Bld) [Volume fraction] 30.9 % Low 34.9 - 44.3 % [facility] Hemoglobin (Bld) [Mass/Vol] 10.4 g/dL Low 11.4 - 15.2 g/dL [facility] Interpretation and review of laboratory results Abnormal [facility] MCH (RBC) [Entitic mass] 30.3 pg 25.9 - 33.9 pg [facility] MCHC (RBC) [Mass/Vol] 33.7 g/dL 31.4 - 35.9 g/dL [facility] MCV (RBC) [Entitic vol] 90.1 fL 79.6 - 97.7 fL [facility] Platelet mean volume (Bld) [Entitic vol] 9.9 fL 8.5 - 12.2 fL [facility] Platelets (Bld) [#/Vol] 130 10*3/uL Low 150 - 393 K/uL [facility] RBC (Bld) [#/Vol] 3.43 10*6/uL Low [facility] WBC (Bld) [#/Vol] 5.22 10*3/uL 3.99 - 11.19 K/uL [facility] Hematocrit (Bld) [Volume fraction] 30.9 % Low 34.9-44.3 [facility] Comment on above: Performed By: #### Leonel MUNOZ #### [facility] (DEFAULT) [address] [address] Hemoglobin (Bld) [Mass/Vol] 10.4 g/dL Low 11.4-15.2 [facility] Comment on above: Performed By: #### Leonel SVALL #### [facility] (DEFAULT) [address] [address] MCV (RBC) [Entitic vol] 90.1 fL Normal 79.6-97.7 [facility] Comment on above: Performed By: #### Leonel SVALL #### [facility] (DEFAULT) [address] [address] Mean Cell Hgb 30.3 pg Normal 25.9-33.9 [facility] Comment on above: Performed By: #### Leonel SVALL #### [facility] (DEFAULT) [address] [address] Mean Cell Hgb Conc 33.7 g/dL Normal 31.4-35.9 [facility] Comment on above: Performed By: #### G SVALL #### [facility] (DEFAULT) [address] [address] Platelet mean volume (Bld) [Entitic vol] 9.9 fL Normal 8.5-12.2 [facility] Comment on above: Performed By: #### G SVALL #### [facility] (DEFAULT) [address] [address] Platelets (Bld) [#/Vol] 130 10*3/uL Low 150-393 [facility] Comment on above: Performed By: #### G SVALL #### [facility] (DEFAULT) [address] [address] RBC (Bld) [#/Vol] 3.43 10*6/uL Low 3.91-5.04 [facility] Comment on above: Performed By: #### G SVALL #### [facility] (DEFAULT) [address] [address] RBC Distribution 19.7 % High 10.8-14.9 [facility] Comment on above: Performed By: #### G SVALL #### [facility] (DEFAULT) [address] [address] WBC (Bld) [#/Vol] 5.22 10*3/uL Normal 3.99-11.19 [facility] Comment on above: Performed By: #### G SVALL #### [facility] (DEFAULT) [address] [address] Erythrocyte distribution width (RBC) [Ratio] 18.7 % High 10.8 - 14.9 % [facility] Hematocrit (Bld) [Volume fraction] 32 % Low 34.9 - 44.3 % [facility] Hemoglobin (Bld) [Mass/Vol] 10.9 g/dL Low 11.4 - 15.2 g/dL [facility] Interpretation and review of laboratory results Abnormal [facility] MCH (RBC) [Entitic mass] 30.6 pg 25.9 - 33.9 pg [facility] MCHC (RBC) [Mass/Vol] 34.1 g/dL 31.4 - 35.9 g/dL [facility] MCV (RBC) [Entitic vol] 89.9 fL 79.6 - 97.7 fL [facility] Platelet mean volume (Bld) [Entitic vol] 8.9 fL 8.5 - 12.2 fL [facility] Platelets (Bld) [#/Vol] 79 10*3/uL Low 150 - 393 K/uL [facility] RBC (Bld) [#/Vol] 3.56 10*6/uL Low [facility] WBC (Bld) [#/Vol] 6.03 10*3/uL 3.99 - 11.19 K/uL [facility] Hematocrit (Bld) [Volume fraction] 32.0 % Low 34.9-44.3 [facility] Comment on above: Performed By: #### H [facility] ####[facility] (DEFAULT)[address] [place] [address] Hemoglobin (Bld) [Mass/Vol] 10.9 g/dL Low 11.4-15.2 [facility] Comment on above: Performed By: #### H [facility] ####[facility] (DEFAULT)[address] [place] [address] MCV (RBC) [Entitic vol] 89.9 fL Normal 79.6-97.7 [facility] Comment on above: Performed By: #### H [facility] ####[facility] (DEFAULT)[address] [place] [address] Mean Cell Hgb 30.6 pg Normal 25.9-33.9 [facility] Comment on above: Performed By: #### H EMO ####[facility] (DEFAULT)[address] [place] [address] Mean Cell Hgb Conc 34.1 g/dL Normal 31.4-35.9 [facility] Comment on above: Performed By: #### H EMOGC ####[facility] (DEFAULT)[address] [place] [address] Platelet mean volume (Bld) [Entitic vol] 8.9 fL Normal 8.5-12.2 [facility] Comment on above: Result Comment: This is an appended report. These results have been appended to a previously preliminary verified report. Performed By: #### H EMO ####[facility] (DEFAULT)[address] [place] [address] Platelets (Bld) [#/Vol] 79 10*3/uL Low 150-393 [facility] Comment on above: Result Comment: Resu lts inconsistent with previous results. This is an appended report. These results have been appended to a previously preliminary verified report. Performed By: #### H EMO ####[facility] (DEFAULT)[address] [place] [address] RBC (Bld) [#/Vol] 3.56 10*6/uL Low 3.91-5.04 [facility] Comment on above: Performed By: #### H EMOGC ####[facility] (DEFAULT)[address] [facility] [place] [address] RBC Distribution 18.7 % High 10.8-14.9 [facility] Comment on above: Performed By: #### H EMOGC ####[facility] (DEFAULT)[address] [place] [address] WBC (Bld) [#/Vol] 6.03 10*3/uL Normal 3.99-11.19 [facility] Comment on above: Performed By: #### H EMOGC ####[facility] (DEFAULT)[address] [place] [address] CHEM 7 (LYTES,BUN,CREA,GLUC) on 04-11-2025 Anion gap [Moles/Vol] 12 mmol/L 7 - 17 mmol/L [facility] Chloride [Moles/Vol] 110 mmol/L High 98 - 10 8 mmol/L [facility] CO2 [Moles/Vol] 21 mmol/L 21 - 31 mmol/L [facility] Creatinine [Mass/Vol] 0.66 mg/dL 0.50 - 1.20 mg/dL [facility] eGFR, CKD-EPI, Female 88 - PINF [facility] Glucose [Mass/Vol] 113 mg/dL 70 - 179 mg/dL [facility] Osmolality Calc [Osmolality] 298 [facility] Potassium [Moles/Vol] 3.6 mmol/L 3.5 - 5.0 mmol/L [facility] Sodium [Moles/Vol] 139 mmol/L 135 - 145 mmol/L [facility] Urea nitrogen [Mass/Vol] 31 mg/dL High 7 - 25 mg/dL [facility] Urea nitrogen/Creatinine [Mass ratio] 47 mg/mg [facility] Anion gap [Moles/Vol] 12 mmol/L Normal 7-17 [facility] Comment on above: Performed By: #### L DO, MGO, IPB, CHM7 #### [facility] (DEFAULT) [address] [place] [address] Chloride [Moles/Vol] 110 mmol/L High 98-108 [facility] Comment on above: Performed By: #### L DO, MGO, IPB, CHM7 #### [facility] (DEFAULT) [address] [place] [address] CO2 [Moles/Vol] 21 mmol/L Normal 21-31 [facility] Comment on above: Performed By: #### L DO, MGO, IPB, CHM7 #### [facility] (DEFAULT) [address] [place] [address] Creatinine [Mass/Vol] 0.66 mg/dL Normal 0.50-1.20 [facility] Comment on above: Performed By: #### L DO, MGO, IPB, CHM7 #### [facility] (DEFAULT) [address] [place] [address] GFR/1.73 sq M.predicted among non-blacks MDRD (S/P/Bld) [Vol rate/Area] 88 mL/min/{1.73_m2} Normal >=60 [facility] Comment on above: Result Comment: Repo rted eGFR is based on the CKD-EPI 2020 equation using creatinine, age, and sex. Performed By: #### L DO, MGO, IPB, CHM7 #### [facility] (DEFAULT) [address] [place] [address] Glucose [Mass/Vol] 113 mg/dL Normal Nonfastin -179 mg/dL; Fastin-99 [facility] Comment on above: Performed By: #### L DO, MGO, IPB, CHM7 #### [facility] (DEFAULT) [address] [place] [address] Osmolality [Osmolality] 298 mosm/kg Normal 278-305 [facility] Comment on above: Performed By: #### L DO, MGO, IPB, CHM7 #### [facility] (DEFAULT) [address] [place] [address] Potassium [Moles/Vol] 3.6 mmol/L Normal 3.5-5.0 [facility] Comment on above: Performed By: #### L DO, MGO, IPB, CHM7 #### [facility] (DEFAULT) [address] [place] [address] Sodium [Moles/Vol] 139 mmol/L Normal 135-145 [facility] Comment on above: Performed By: #### L DO, MGO, IPB, CHM7 #### [facility] (DEFAULT) [address] [place] [address] Urea nitrogen [Mass/Vol] 31 mg/dL High 7-25 [facility] Comment on above: Performed By: #### L DO, MGO, IPB, CHM7 #### [facility] (DEFAULT) [address] [place] [address] Urea nitrogen/Creatinine [Mass ratio] 47 mg/mg Normal [facility] Comment on above: Performed By: #### L DO, MGO, IPB, CHM7 #### [facility] (DEFAULT) [address] [place] [address] CKon 04-11-2025 CK [Catalytic activity/Vol] 840 U/L High 30 - 184 U/L [facility] CK [Catalytic activity/Vol] 840 U/L High 30-184 [facility] Comment on above: Order Comment: While on Propofol. Performed By: #### L DO, MGO, IPB, CHM7 #### [facility] (DEFAULT) [address] [place] [address] GLUCOSE POCon 04-11-2025 Glucose [Mass/Vol] 123 mg/dL 70 - 179 mg/dL [facility] POC Sample Type CAPBL [facility] IONIZED CALCIUM, WHOLE BLOOD Ordered By: Jossy Ortega on 04-11-2025 Calcium.ionized (Bld) [Moles/Vol] 4.63 mg/dL 4.60 - 5.30 mg/dL [facility] Interpretation and review of laboratory results Normal [facility] IONIZED CALCIUM, WHOLE BLOOD on 04-11-2025 ICA 4.63 mg/dL Normal 4.60-5.30 [facility] Comment on above: Performed By: #### G SVALL #### [facility] (DEFAULT) [address] [place] [address] MAGNESIUMon 04-11-2025 Magnesium [Mass/Vol] 2.3 mg/dL 1.6 - 2 .6 mg/dL [facility] Magnesium [Mass/Vol] 2.3 mg/dL Normal 1.6-2.6 [facility] Comment on above: Performed By: #### L DO MGO IPBALJIT Espinoza #### [facility] (DEFAULT) [address] [place] [address] No Panel Informationon 04-11 [facility] Interpretation and review of laboratory results Abnormal [facility] Interpretation and review of laboratory results Normal [facility] PHOSPHATE, INORGANICon 04-11 Phosphate [Mass/Vol] 3.1 mg/dL 2.2 - 4 .6 mg/dL [facility] Phosphorous 3.1 mg/dL Normal 2.2-4.6 [facility] Comment on above: Performed By: #### L ARNEL TOBIAS IPB, BALJIT #### [facility] (DEFAULT) [address] [place] [address] PREPARE TO TRANSFUSE PLATELE Ton 04-11-2025 ABO/RH(D) TYPE Positive [facility] BLOOD COMPONENT TYPE Irradiated Leukored uced Platelet Apheresis [facility] EXPIRATION DATE [id number] [facility] Product ABO/RH(D) Positive [facility] Product ABO/RH(D) NUMBER [id number] [facility] PRODUCT CODE [id number] [facility] UNIT NUMBER [id number] [facility] UNIT STATUS transfused [facility] PT,INR,PTTon 04-11-2025 aPTT Coag (PPP) [Time] 25.1 s [facility] INR Coag (Bld) [Relative time] 1.1 {INR} 0.9 - 1.1 [facility] Interpretation and review of laboratory results Normal [facility] PT Coag (PPP) [Time] 14.1 s [facility] aPTT Coag (Bld) [Time] 25.1 s Normal 24.0-34.3 [facility] Comment on above: Performed By: #### G SVALL #### [facility] (DEFAULT) [address] [place] [address] INR Coag (PPP) [Relative time] 1.1 {INR} Normal 0.9-1.1 [facility] Comment on above: Performed By: #### G SVALL #### [facility] (DEFAULT) [address] [place] [address] PT Coag (PPP) [Time] 14.1 s Normal 11.9-14.2 [facility] Comment on above: Performed By: #### G SVALL #### [facility] (DEFAULT) [address] [place] [address] Portable XR Chest Viewson RADIOLOGY RADIOLOGY [facility] Portable XR Chest ViewsOrder ed By: Ubaldo Pennington on 04-11-2025 [facility] Work Phone: TRIGLYCERIDEon 04-11-2025 Triglyceride [Mass/Vol] 92 mg/dL NINF - 150 mg/dL [facility] Triglyceride [Mass/Vol] 92 mg/dL Normal <150 [facility] Comment on above: Order Comment: While on Propofol. Result Comment: [<15 0 mg/dL: Desirable] [150-199 mg/dL: Borderline] [200-499 mg/dL: High] [>500 mg/dL: Very High] Performed By: #### L DO, MGO, IPB, CHM7 #### [facility] (DEFAULT) [address] [place] [address] XR CHEST 1 VIEW PORTABLEon 0 04-11-2025 XR CHEST 1 VIEW PORTABLE EXAM: XR CHEST 1 VIEW PORTABLE, 04/10/2025 20:51 PM COMPARISON: April 09, 2025 CLINICAL INDICATIONS: CVC Placement RELEVANT CLINICAL HISTORY: FINDINGS: (Compromised by rotation to the left) Implanted Devices: Right subclavian CVC placed with tip overlying the upper SVC. Endotracheal tube terminates 5.5 cm above the everett. Surgical drain extends over the cervical spine. Thorax: Postoperative changes related to cervical spinal fusion. Lungs show mild central atelectasis but are otherwise clear. No pneumothorax. IMPRESSION: Right subclavian CVC with tip overlying the upper SVC. No pneumothorax. Normal [facility] ARTERIAL BLOOD GAS (FULL GARCIA EL)on 04-10-2025 Base excess Calc (Bld) [Moles/Vol] -3.6000 mmol/L Low -3.0 - 3.0 mmol/L [facility] Calcium.ionized (Bld) [Mass/Vol] 4.38 mg/dL Low 4.60 - 5.30 mg/dL [facility] Carboxyhemoglobin (Bld) [Mass fraction] 1.3 % NINF - 1.5 % [facility] CO2 (Bld) [Partial pressure] 39 mm[Hg] [facility] Glucose [Mass/Vol] 141 mg/dL 70 - 179 mg/dL [facility] HCO3 (Bld) [Moles/Vol] 21 mmol/L Low 22 - 28 mmol/L [facility] Hematocrit (Bld) [Volume fraction] 32 % Low 34 - 46 % [facility] Hemoglobin (Bld) [Mass/Vol] 10.2 g/dL Low 11.4 - 15.2 g/dL [facility] Interpretation and review of laboratory results Abnormal [facility] Lactate [Moles/Vol] 1.3 mmol/L 0.5 - 1. 6 mmol/L [facility] Methemoglobin (Bld) [Mass fraction] 1.2 % NINF - 1.5 % [facility] Oxygen (Bld) [Partial pressure] 158 mm[Hg] High [facility] Oxygen saturation in Blood 99 % High 94 - 98 % [facility] Oxyhemoglobin 97 % 94 - 98 % [facility] pH (Bld) 7.35 [pH] 7.35 - 7.45 [facility] Potassium [Moles/Vol] 3.7 mmol/L 3.5 - 5.0 mmol/L [facility] Sodium [Moles/Vol] 140 mmol/L 135 - 145 mmol/L [facility] Specimen source Nom (Unsp spec) Arterial [facility] Base Excess -3.6 mmol/L Low -3.0-3.0 [facility] Comment on above: Performed By: #### L DO, MGO, IPB, CHM7 #### [facility] (DEFAULT) [address] [place] [address] Carboxyhemoglobin 1.3 % Normal <=1.5 [facility] Comment on above: Performed By: #### L DO, MGO, IPB, CHM7 #### [facility] (DEFAULT) [address] [place] [address] Glucose [Mass/Vol] 141 mg/dL Normal Nonfastin g Glucose: 70-179 [facility] Comment on above: Performed By: #### L DO, MGO, IPB, CHM7 #### [facility] (DEFAULT) [address] [place] [address] HCO3 (Bld) [Moles/Vol] 21 mmol/L Low 22-28 [facility] Comment on above: Performed By: #### L DO, MGO, IPB, CHM7 #### [facility] (DEFAULT) [address] [place] [address] Hematocrit (Bld) [Volume fraction] 32 % Low 34-46 [facility] Comment on above: Performed By: #### L DO, MGO, IPB, CHM7 #### [facility] [facility] (DEFAULT) [address] [place] [address] 67518 Hemoglobin (Bld) [Mass/Vol] 10.2 g/dL Low 11.4-15.2 [facility] Comment on above: Performed By: #### L DO, MGO, IPB, CHM7 #### [facility] (DEFAULT) [address] [place] [address] 14252 Ionized Calcium, Whole Blood 4.38 mg/dL Low 4.60-5.30 [facility] Comment on above: Performed By: #### L DO, MGO, IPB, CHM7 #### [facility] (DEFAULT) [address] [place] [address] 42973 Lactate, Whole Blood 1.3 mmol/L Normal 0.5-1.6 [facility] Comment on above: Performed By: #### L DO, MGO, IPB, CHM7 #### [facility] (DEFAULT) [address] [place] [address] 89196 Methemoglobin 1.2 % Normal <=1.5 [facility] Comment on above: Performed By: #### L DO, MGO, IPB, CHM7 #### [facility] (DEFAULT) [address] [place] [address] 73100 Oxygen saturation in Blood 99 % High 94-98 [facility] Comment on above: Performed By: #### L DO, MGO, IPB, CHM7 #### [facility] (DEFAULT) [address] [place] [address] 88624 Oxyhemoglobin 97 % Normal 94-98 [facility] Comment on above: Performed By: #### L DO, MGO, IPB, CHM7 #### [facility] (DEFAULT) [address] [place] [address] 90213 pCO2 39 mm Hg Normal 32-48 [facility] Comment on above: Performed By: #### L DO, MGO, IPB, CHM7 #### [facility] (DEFAULT) [address] [place] [address] 51487 pH, Arterial 7.35 Normal 7.35-7.45 [facility] Comment on above: Performed By: #### L DO, MGO, IPB, CHM7 #### [facility] (DEFAULT) [address] [place] [address] 41541 pO2 158 mm Hg High 83-108 [facility] Comment on above: Performed By: #### L DO, MGO, IPB, CHM7 #### [facility] (DEFAULT) [address] [place] [address] 64558 Potassium [Moles/Vol] 3.7 mmol/L Normal 3.5-5.0 [facility] Comment on above: Performed By: #### L DO, MGO, IPB, CHM7 #### [facility] (DEFAULT) [address] [place] [address] 90820 Sodium [Moles/Vol] 140 mmol/L Normal 135-145 [facility] Comment on above: Performed By: #### L DO, MGO, IPB, CHM7 #### [facility] (DEFAULT) [address] [place] [address] 01470 Specimen type Nom (Spec) Arterial Normal [facility] Comment on above: Performed By: #### L DO, MGO, IPB, CHM7 #### [facility] (DEFAULT) [address] [place] [address] 84819 Base Excess -3.8 mmol/L Low -3.0-3.0 [facility] Comment on above: Performed By: #### L DO, MGO, IPB, CHM7 #### [facility] (DEFAULT) [address] [place] [address] 83789 Carboxyhemoglobin 1.4 % Normal <=1.5 [facility] Comment on above: Performed By: #### L DO, MGO, IPB, CHM7 #### [facility] (DEFAULT) [address] [place] [address] 93779 Glucose [Mass/Vol] 124 mg/dL Normal Nonfastin g Glucose: 70-179 [facility] Comment on above: Performed By: #### L DO, MGO, IPB, CHM7 #### [facility] (DEFAULT) [address] [place] [address] 93658 HCO3 (Bld) [Moles/Vol] 20 mmol/L Low 22-28 [facility] Comment on above: Performed By: #### L DO, MGO, IPB, CHM7 #### [facility] (DEFAULT) [address] [place] [address] 42256 Hematocrit (Bld) [Volume fraction] 25 % Low 34-46 [facility] Comment on above: Performed By: #### L DO, MGO, IPB, CHM7 #### [facility] (DEFAULT) [address] [place] [address] 77469 Hemoglobin (Bld) [Mass/Vol] 8.1 g/dL Low 11.4-15.2 [facility] Comment on above: Performed By: #### L DO, MGO, IPB, CHM7 #### [facility] (DEFAULT) [address] [place] [address] 32765 Ionized Calcium, Whole Blood 4.68 mg/dL Normal 4.60-5.30 [facility] Comment on above: Performed By: #### L DO, MGO, IPB, CHM7 #### [facility] (DEFAULT) [address] [place] [address] 92774 Lactate, Whole Blood 1.4 mmol/L Normal 0.5-1.6 [facility] Comment on above: Performed By: #### L DO, MGO, IPB, CHM7 #### [facility] (DEFAULT) [address] [place] [address] 54910 Methemoglobin 1.2 % Normal <=1.5 [facility] Comment on above: Performed By: #### L DO, MGO, IPB, CHM7 #### [facility] (DEFAULT) [address] [place] [address] 45554 Oxygen saturation in Blood 100 % High 94-98 [facility] Comment on above: Performed By: #### L DO, MGO, IPB, CHM7 #### [facility] (DEFAULT) [address] [place] [address] 38188 Oxyhemoglobin 97 % Normal 94-98 [facility] Comment on above: Performed By: #### L DO, MGO, IPB, CHM7 #### [facility] (DEFAULT) [address] [place] [address] 13463 pCO2 31 mm Hg Low 32-48 [facility] Comment on above: Performed By: #### L DO, MGO, IPB, CHM7 #### [facility] (DEFAULT) [address] [place] [address] 71560 pH, Arterial 7.42 Normal 7.35-7.45 [facility] Comment on above: Performed By: #### L DO, MGO, IPB, CHM7 #### [facility] (DEFAULT) [address] [place] [address] 60997 pO2 358 mm Hg High 83-108 [facility] Comment on above: Performed By: #### L DO, MGO, IPB, CHM7 #### [facility] (DEFAULT) [address] [place] [address] 21304 Potassium [Moles/Vol] 3.9 mmol/L Normal 3.5-5.0 [facility] Comment on above: Performed By: #### L DO, MGO, IPB, CHM7 #### [facility] (DEFAULT) [address] [place] [address] 67141 Sodium [Moles/Vol] 139 mmol/L Normal 135-145 [facility] Comment on above: Performed By: #### L DO, MGO, IPB, CHM7 #### [facility] (DEFAULT) [address] [place] [address] 08667 Specimen type Nom (Spec) Arterial Normal [facility] Comment on above: Performed By: #### L DO, MGO, IPB, CHM7 #### [facility] (DEFAULT) [address] [place] [address] 23895 ARTERIAL BLOOD GAS (FULL GARCIA EL)Ordered By: Vickie Talamantes on 04-10-2025 Base excess Calc (Bld) [Moles/Vol] -3.8000 mmol/L Low -3.0 - 3.0 mmol/L [facility] Calcium.ionized (Bld) [Mass/Vol] 4.68 mg/dL 4.60 - 5.30 mg/dL [facility] Carboxyhemoglobin (Bld) [Mass fraction] 1.4 % NINF - 1.5 % [facility] CO2 (Bld) [Partial pressure] 31 mm[Hg] Low [facility] Glucose [Mass/Vol] 124 mg/dL 70 - 179 mg/dL [facility] HCO3 (Bld) [Moles/Vol] 20 mmol/L Low 22 - 28 mmol/L [facility] Hematocrit (Bld) [Volume fraction] 25 % Low 34 - 46 % [facility] Hemoglobin (Bld) [Mass/Vol] 8.1 g/dL Low 11.4 - 15.2 g/dL [facility] Interpretation and review of laboratory results Abnormal [facility] Lactate [Moles/Vol] 1.4 mmol/L 0.5 - 1. 6 mmol/L [facility] Methemoglobin (Bld) [Mass fraction] 1.2 % NINF - 1.5 % [facility] Oxygen (Bld) [Partial pressure]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 focal edema attenuating slightly higher than simple fluid. Thoracic spondylosis. Diffuse osseous demineralization. No aggressive osseous lesion. IMPRESSION: 1. Acute likely comminuted fracture of the C6 spinous process. Please refer to outside CT cervical spine for further details. 2. No convincing CT evidence of traumatic vascular injury in this single phase contrast exam. New suspected new small contained upper esophageal injury with surrounding mediastinal edema/hemorrhage. No pneumomediastinum. Fluoroscopic esophagram could be considered for further evaluation. 3. New bilateral trace pleural effusions. No pneumothorax. 4. No acute pulmonary laceration or contusion. 5. Stable medial left breast focal edema could represent postprocedural change and/or superimposed subcutaneous hematoma. Recommend clinical and prior mammographic correlation. Coleman Wood MD discussed critical finding(s) including suspected small contained upper esophageal injury with WOOD PATINO and TREASURE WHITAKER NP on 04/09/2025 9:33 AM. I personally viewed and interpreted these images and I have reviewed and approved this report. Normal [facility] CT Chest W contrast Nicole RADIOLOGY RADIOLOGY [facility] CT Chest W contrast IVOrdere d By: Zully Donald on 04-09-2025 [facility] Work Phone: Cardiac echo study Procedure Ordered By: Johanna Aaron on 04-09-2025 Ao peak antonette 1.39 [facility] Work Phone: Ao VTI 23.68 cm [facility] Work Phone: Ascending aorta 2.76 cm [facility] Work Phone: AV LVOT peak gradient 3 mmHg [facility] Work Phone: AV mean gradient 4 mmHg [facility] Work Phone: AV peak gradient 8 mmHG [facility] Work Phone: AV valve area 2.15 cm2 [facility] Work Phone: AV Velocity Ratio 0.65 [facility] Work Phone: JOAQUIN (continuity Vmax) 1.95 cm2 [facility] Work Phone: JOAQUIN (continuity VTI) 2.15 cm2 [facility] Work Phone: Avg e' pk antonette 0.08 m/s [facility] Work Phone: Avg E/e' ratio 8.64 [facility] Work Phone: BP EF 59 % [facility] Work Phone: DI (Vmax) 0.65 [facility] Work Phone: DI (VTI) 0.71 m/2 [facility] Work Phone: E wave decelartion time 198.79 msec [facility] Work Phone: e' lateral pk antonette 0.1033 m/s [facility] Work Phone: e' lateral pk antonette 0.1 [facility]: e' septal pk antonette 0.0651 m[facility]s [facility] Work Phone: e' septal pk antonette 0.07 m/s [facility] Work Phone: E/A ratio 0.77 [facility] Work Phone: E[facility]e' lateral [facility] 6.68 [facility]: E/e' septal [facility] 10.6 [facility] Work Phone: EF SP 2CH 66 [facility] Work Phone: [phone] EF SP 4CH 52 [facility] Work Phone: EST RAP 3 mmHg [facility] Work Phone: FS 35 % [facility] Work Phone: IVS 0.94 cm [facility] Work Phone: LA area 4CH 21.52 cm2 [facility] Work Phone: LA ESV BP (MOD) 48 mL [facility] Work Phone: LA ESV SP 2CH (MOD) 30 mL [facility] Work Phone: [phone] LA ESV SP 4CH (MOD) 58 mL [facility] Work Phone: [phone] LV EDV BP 56 mL [facility] Work Phone: LV EDV SP 2CH 61 mL [facility] Work Phone: LV EDV SP 4CH 52 mL [facility] Work Phone: LV ESV BP 23 mL [facility] Work Phone: [phone] LV ESV SP 2CH 21 mL [facility] Work Phone: LV ESV SP 4CH 25 mL [facility] Work Phone: LV mass 104.05 g [facility] Work Phone: LV RWT 0.3 [facility] Work Phone: LV stroke volume BP (ml) 33 mL [facility] Work Phone: LVIDD 4.29 cm [facility] Work Phone: [phone] LVIDS 2.78 cm [facility] Work Phone: LVOT area 3.02 cm2 [facility] Work Phone: LVOT diameter 1.96 cm [facility] Work Phone: [phone] LVOT peak antonette 0.9 m/s [facility] Work Phone: LVOT peak VTI 16.88 cm [facility] Work Phone: [phone] LVOT stroke volume [address] [facility] Work Phone: MV mean gradient 1 mmHg [facility] Work Phone: [phone] MV peak gradient 3 mmHg [facility] Work Phone: [phone] MV pk A antonette 0.9 m/s [facility] Work Phone: MV pk E antonette 0.69 m/s [facility] Work Phone: MV valve area by continuity eq 1.96 cm2 [facility] Work Phone: MV VTI 26 cm [facility] Work Phone: MVA (continuity VTI) 1.97 cm [facility] Work Phone: [facility] AV VTI RATIO PRE STRESS 0.71 [facility] Work Phone: [phone] PV mean gradient 3 mmHg [facility] Work Phone: [phone] PV peak gradient 5 mmHg [facility] Work Phone: PV PK ANTONETTE 1.09 m/s [facility] Work Phone: PW 0.65 cm [facility] Work Phone: RA area 4CH (MOD) 11.56 cm2 [facility] Work Phone: Right atrium volume 4 chamber method of disks 24 mL [facility] Work Phone: RV basal diam 2.86 cm [facility] Work Phone: RV long diam 6.39 cm [facility] Work Phone: RV mid diam 1.72 cm [facility] Work Phone: RV S' 16.99 cm/s [facility] Work Phone: RVOT peak gradient [address] [facility] Work Phone: RVOT peak antonette 0.88 m/s [facility] Work Phone: RVOT peak VTI 17.9 cm [facility] Work Phone: Sinus 2.99 cm [facility] Work Phone: STJ 2.1 cm [facility] Work Phone: Stroke Volume 51 cm/mL [facility] Work Phone: TAPSE 1.67 cm [facility] Work Phone: [facility] Work Phone: Cardiac echo study Procedure on 04-09-2025 [facility] Radiology Study observation (narrative) [facility] ECHOCARDIOGRAMon 04-09-2025 Echocardiography ? No prior study at this institution for comparison. ? Left Ventricle: Chamber size is normal. Normal wall thickness. Normal global systolic function. Regional wall motion is normal. Ejection fraction is normal (55 - 60%). Diastolic function is normal for age. No thrombus is present. ? Right Ventricle: Chamber size is normal. Systolic function is normal. ? Left Atrium: Chamber size is mildly enlarged. ? Aortic Valve: Trileaflet valve. Leaflet mobility is normal. No regurgitation. No stenosis. ? Mitral Valve: Normal appearing leaflets. Leaflet mobility is normal. Trace regurgitation. No valve stenosis. ? Tricuspid Valve: Normal leaflets. Leaflet mobility is normal. Trace regurgitation. No stenosis. Pulmonary artery systolic pressure (PASP) is unable to be estimated. Poor tricuspid regurgitation jet may not accurately reflect right ventricular systolic pressure. Table formatting from the original result was not included. Images from the original result were not included. [facility] Facility [facility] Patient Information Patient Name Anay Samuels Legal Sex Female Indication for Exam Priority: Routine Dx: Cerebrovascular accident (CVA), unspecified mechanism [I63.9 (ICD-10-CM)] Order Question Reason for Exam Stroke Interpretation Summary Result History is available. ? No prior study at this institution for comparison. ? Left Ventricle: Chamber size is normal. Normal wall thickness. Normal global systolic function. Regional wall motion is normal. Ejection fraction is normal (55 - 60%). Diastolic function is normal for age. No thrombus is present. ? Right Ventricle: Chamber size is normal. Systolic function is normal. ? Left Atrium: Chamber size is mildly enlarged. ? Aortic Valve: Trileaflet valve. Leaflet mobility is normal. No regurgitation. No stenosis. ? Mitral Valve: Normal appearing leaflets. Leaflet mobility is normal. Trace regurgitation. No valve stenosis. ? Tricuspid Valve: Normal leaflets. Leaflet mobility is normal. Trace regurgitation. No stenosis. Pulmonary artery systolic pressure (PASP) is unable to be estimated. Poor tricuspid regurgitation jet may not accurately reflect right ventricular systolic pressure. Findings Left Ventricle Chamber size is normal. Normal wall thickness. Normal global systolic function. Regional wall motion is normal. Ejection fraction is normal (55 - 60%). Diastolic function is normal for age. No thrombus is present. Right Ventricle Chamber size is normal. Systolic function is normal. Left Atrium Chamber size is mildly enlarged. Right Atrium Chamber size is normal. Mitral Valve Normal appearing leaflets. Leaflet mobility is normal. Trace regurgitation. No valve stenosis. Aortic Valve Trileaflet valve. Leaflet mobility is normal. No regurgitation. No stenosis. Tricuspid Valve Normal leaflets. Leaflet mobility is normal. Trace regurgitation. No stenosis. Pulmonary artery systolic pressure (PASP) is unable to be estimated. Poor tricuspid regurgitation jet may not accurately reflect right ventricular systolic pressure. Pulmonic Valve Trace regurgitation. No stenosis. Aorta No dilation to extent seen. SOV: 2.99 cm. STJ: 2.10 cm. Ascendin.76 cm. Pericardium No pericardial effusion. IVC/SVC The inferior vena cava is normal in size. The inferior vena cava structure is normal. Reading Providers Reading Role Read Date Johanna Aaron MD [facility] [place], Test Manager Of Business 04/09/2025 Left Heart Measurements LV - Systole LVIDD 4.29 cm IVS 0.94 cm LVIDS 2.78 cm PW 0.65 cm LV RWT 0.3 LV EDV BP 56 mL LV ESV BP 23 mL BP EF 59 % LV stroke volume BP (ml) 33 mL LV - Diastole MV pk E antonette 0.69 m/s MV pk A antonette 0.9 m/s E/A ratio 0.77 e' septal pk antonette 0.07 m/s e' lateral pk antonette 0.1 m/s Avg e' pk antonette 0.08 m/s E/e' septal ratio 10.6 E/e' lateral ratio 6.68 Avg E/e' ratio 8.64 LV - HCM AV LVOT peak gradient 3 mmHg Left Atrium LA ESV SP 4CH (MOD) 58 mL LA ESV SP 2CH (MOD) 30 mL Right Heart Measurements RV - 2D RV basal diam 2.86 cm RV mid diam 1.72 cm RV long diam 6.39 cm RV - Doppler TAPSE 1.67 cm RV S' 16.99 cm/s Right Atrium EST RAP 3 mmHg RA area 4CH (MOD) 11.56 cm2 Great Vessels Aortic Root - End Diastolic Sinus 2.99 cm STJ 2.1 cm Ascending aorta 2.76 cm Doppler Measurements - Aortic Valve Stenosis LVOT diameter 1.96 cm LVOT area 3.02 cm2 LVOT peak antonette 0.9 m/s LVOT peak VTI 16.88 cm Stroke Volume 51 cm/mL Ao peak antonette 1.39 m/s Ao VTI 23.68 cm AV peak gradient 8 mmHG AV mean gradient 4 mmHg DI (VTI) 0.71 m/2 DI (Vmax) 0.65 JOAQUIN (continuity Vmax) 1.95 cm2 JOAQUIN (continuity VTI) 2.15 cm2 LVOT stroke volume 51 cm3 Dopple (more content not included)... Normal [facility] EXTRA MICROon 04-09-2025 [facility] GLUCOSE POCon 04-09-2025 Glucose [Mass/Vol] 150 mg/dL 70 - 179 mg/dL [facility] POC Sample Type CAPBL [facility] HEMOGLOBIN & HEMATOCRITon Hematocrit (Bld) [Volume fraction] 28.2 % Low 34.9 - 44.3 % [facility] Hemoglobin (Bld) [Mass/Vol] 9.4 g/dL Low 11.4 - 15.2 g/dL [facility] Interpretation and review of laboratory results Abnormal [facility] Hematocrit (Bld) [Volume fraction] 28.2 % Low 34.9-44.3 [facility] Comment on above: Performed By: #### H H ####[facility] (DEFAULT)[address] [place] [id number] Hemoglobin (Bld) [Mass/Vol] 9.4 g/dL Low 11.4-15.2 [facility] Comment on above: Performed By: #### H H ####[facility] (DEFAULT)[address] [place] [id number] HEMOGLOBIN A1Con 04-09-2025 Average glucose Estimated from glycated hemoglobin (Bld) [Mass/Vol] 111 mg/dL [facility] HbA1c (Bld) [Mass fraction] 5.5 % 4.7 - 5.6 % [facility] Glucose [Mass/Vol] 111 mg/dL Normal [facility] Comment on above: Performed By: #### L DO, MGO, IPB, CHM7 #### [facility] (DEFAULT) [address] [place] [address] Hemoglobin A1C HPLC 5.5 % Normal 4.7-5.6 [facility] Comment on above: Performed By: #### L , MGO, IPB, CHM7 #### [facility] (DEFAULT) [address] [place] [address] IONIZED CALCIUM, WHOLE BLOOD Ordered By: Jhon Still on 04-09-2025 Calcium.ionized (Bld) [Moles/Vol] 3.91 mg/dL Low 4.60 - 5.30 mg/dL [facility] Interpretation and review of laboratory results Abnormal [facility] IONIZED CALCIUM, WHOLE BLOOD on 04-09-2025 ICA 3.91 mg/dL Low 4.60-5.30 [facility] Comment on above: Performed By: #### L DO, MGO, IPB, CHM7 #### [facility] (DEFAULT) [address] [place] [address] MAGNESIUMon 04-09-2025 Magnesium [Mass/Vol] 2 mg/dL 1.6 - 2 .6 mg/dL [facility] Magnesium [Mass/Vol] 2.0 mg/dL Normal 1.6-2.6 [facility] Comment on above: Performed By: #### G SVALL #### [facility] (DEFAULT) [address] [place] [phone] MR Brain WO contraston 04-09 RADIOLOGY RADIOLOGY [facility] Radiology Study observation (narrative) [facility] MR Brain WO contrastOrdered By: Therese Boudreaux on 04-09-2025 [facility] Work Phone: MR Cervical spine WO contras ton 04-09-2025 RADIOLOGY RADIOLOGY [facility] Radiology Study observation (narrative) [facility] MRI BRAIN STROKE WITHOUT CON TRASTon 04-09-2025 MRI BRAIN STROKE WITHOUT CONTRAST EXAM: MRI BRAIN STROKE WITHOUT CONTRAST, 04/09/2025 16:50 PM COMPARISON: CT HEAD (OUTSIDE IMAGE) April 08, 2025 CLINICAL INDICATIONS: 79 years Female stroke RELEVANT CLINICAL HISTORY: TECHNIQUE: A series of multisequence, multiplanar images of the brain are obtained without intravenous contrast according to acute stroke protocol. Study includes diffusion-weighted images. Study was performed at 1.5 [place]. FINDINGS: Multiple moderate motion artifact. There is acute predominantly cortical infarct in the right MCA territory involving the right frontal and parietal lobes and the right insula. Additional tiny acute infarcts in the right RAJIV territory involving the right cingulate gyrus and the corpus callosum. There is a tubular gradient susceptibility in the region of the right RAJIV which could relate to underlying thrombus. There is associated FLAIR hyperintensity. There is petechial hemorrhage. There is no space-occupying lobar hematoma. Sulcal effacement but no significant mass effect or midline shift. Additional patchy and confluent FLAIR hyperintensities in the periventricular subcortical white matter, nonspecific but likely sequelae of chronic small vessel ischemic disease. Tiny remote infarct in the right cerebellar hemisphere There is no acute epidural or subdural hematoma. There are no air-fluid levels in the paranasal sinuses. Bilateral cataract surgery. Moderate right mastoid effusion. IMPRESSION: Acute right MCA territory infarct and tiny acute infarcts in the right RAJIV territory. Petechial hemorrhage involving the right frontal and parietal lobes without space-occupying lobar hematoma. Gradient susceptibility in the region of the RAJIV, could relate to underlying thrombus. Moderate mastoid effusion. Normal [facility] MRI SPINE CERVICAL WITHOUT CONTRAST EXAM: MRI SPINE CERVICAL WITHOUT CONTRAST, 04/09/2025 17:29 PM COMPARISON: CT SPINE CERVICAL (OUTSIDE IMAGE) April 08, 2025 CLINICAL INDICATIONS: 79 years Female trauma RELEVANT CLINICAL HISTORY: TECHNIQUE: A series of sagittal and axial multisequence images of the cervical spine were obtained without intravenous contrast using standard protocol. Study was performed at 1.5 [place]. FINDINGS: There is mild to moderate motion artifact on several sequences. There is disruption of the anterior longitudinal ligament and posterior longitudinal ligament at the C6-C7 level. There is abnormal prevertebral edema. There is abnormal edema within the interspinous ligaments which could relate to underlying injury as well as edema within the posterior paraspinal soft tissues and musculature at the C2 through the C7 levels. There is abnormal fluid and widening of the C6-7 facet, related to underlying capsular injury. The ligament flava appear intact. There is abnormal edema within the cervical spinal cord at the C6-C7 level. There is kyphosis centered at C5-C6 and abnormal straightening of the cervical lordosis. No definite edema within the vertebral bodies. There are multilevel degenerative disc changes most pronounced at the C5-C6 level with there is severe height loss. No definite injury at the craniocervical junction. The alar and transverse ligaments appear grossly intact. Dorsal disc osteophyte complex eccentric to the left complex and posterior ligament thickening contributes to severe central canal stenosis C5-C6 and moderate cord compression. Multilevel advanced neural foraminal narrowing at the C3-C4 through the C6-C7 levels. Multiple nodules in the visible thyroid gland. IMPRESSION: Unstable appearing, extensive ligamentous injury at C6-7 with disruption of the anterior longitudinal ligament, the disc annulus, posterior longitudinal ligament and the interspinous ligaments and facet capsular injury along with degenerative changes contribute to moderate to severe spinal canal stenosis. Spinal cord edema at the C6-C7 level. Associated prevertebral edema. Dorsal disc osteophyte complex eccentric to the left at C5-C6, contributes to severe spinal canal stenosis and moderate cord compression. Multiple nodules in the visible thyroid gland. Recommend nonemergent, outpatient ultrasound of the thyroid, unless already obtained. I, Therese Boudreaux MD have discussed the critical finding/s of extensive ligamentous injury at the C6-C7 level with Johnson Isbell PA-C on 04/09/2025 6:17 PM. Normal [facility] No Panel InformationOrdered By: System Discharge on 04-09-2025 [facility] No Panel Informationon 04-09 Interpretation and review of laboratory results Normal [facility] PHOSPHATE, INORGANICon 04-09 Phosphate [Mass/Vol] 3.9 mg/dL 2.2 - 4 .6 mg/dL [facility] Phosphorous 3.9 mg/dL Normal 2.2-4.6 [facility] Comment on above: Performed By: #### G TAMMY #### [facility] (DEFAULT) [address] [place] [address], [place] [address] Portable XR Chest Viewson RADIOLOGY RADIOLOGY [facility] RADIOLOGY RADIOLOGY [facility] Chest ViewsOrder ed By: Abebe Mooney on 04-09-2025 [facility] Work Phone: RF Esophagus Views W annia hughes Shireen 04-09-2025 RADIOLOGY RADIOLOGY [facility] Radiology Study observation (narrative) [facility] RF Esophagus Views W contras t POOrdered By: David Bower on 04-09-2025 [facility] URINALYSIS REFLEX TO CULTURE PERFORMABLEOrdered By: Yessy Kaba on 04-09-2025 Appearance (U) Clear Clear [facility] Bacteria LM Ql (Urine sed) ABSENT ABSENT [facility] Color (U) Yellow Yellow [facility] Epithelial cells.squamous LM Ql (Urine sed) 0-2/hpf 0-2/hpf, 3-5/hpf = 1+ [facility] Glucose Test strip (U) [Mass/Vol] Negative [facility] Interpretation and review of laboratory results Abnormal [facility] Ketones (U) [Mass/Vol] Trace Abnormal Negative [facility] Leukocyte esterase Test strip Ql (U) Negative [facility] Nitrite Ql (U) Negative Negative [facility] pH (U) 5.0 [pH] 5.0 - 7.0 [facility] Protein (U) [Mass/Vol] 30 mg/dL Abnormal Negative [facility] RBC (U) [#/Vol] Trace Abnormal Negative [facility] RBC LM.HPF (Urine sed) [#/Area] 0-2 [facility] Specific gravity (U) [Rel density] High 1.001 - 1.035 [facility] Urobilinogen (U) [Mass/Vol] 0.2 E.U./dL 0.2 E.U/dL, 1.0 E.U/dL [facility] WBC LM.HPF (Urine sed) [#/Area] 0 - 5 [facility] URINALYSIS REFLEX TO CULTURE PERFORMABLEon 04-09-2025 Appearance (U) Clear Normal Clear [facility] Comment on above: Order Comment: For i ndwelling catheters, specimen collection is acceptable on catheter day 1 and 2 only. ? Performed By: #### U [id number] #### [facility] (DEFAULT) [address] [place] [address] Bacteria ABSENT Normal ABSENT [facility] Comment on above: Order Comment: For i ndwelling catheters, specimen collection is acceptable on catheter day 1 and 2 only. ? Performed By: #### U [id number] #### [facility] (DEFAULT) [address] [place] [address] Blood Urine Trace Abnormal Negative [facility] Comment on above: Order Comment: For i ndwelling catheters, specimen collection is acceptable on catheter day 1 and 2 only. ? Performed By: #### U [id number] #### [facility] (DEFAULT) [address] [place] [address] Color (U) Yellow Normal Yellow [facility] Comment on above: Order Comment: For i ndwelling catheters, specimen collection is acceptable on catheter day 1 and 2 only. ? Performed By: #### U [id number] #### [facility] (DEFAULT) [address] [place] [address] Glucose Ql (U) Negative Normal Negative [facility] Comment on above: Order Comment: For i ndwelling catheters, specimen collection is acceptable on catheter day 1 and 2 only. ? Performed By: #### U [id number] #### [facility] (DEFAULT) [address] [place] [address] Ketones Ql (U) Trace Abnormal Negative [facility] Comment on above: Order Comment: For i ndwelling catheters, specimen collection is acceptable on catheter day 1 and 2 only. ? Performed By: #### U [id number] #### [facility] (DEFAULT) [address] [place] [address] 23921 Leukocyte esterase Test strip Ql (U) Negative Normal Negative [facility] Comment on above: Order Comment: For i ndwelling catheters, specimen collection is acceptable on catheter day 1 and 2 only. ? Performed By: #### U [id number] #### [facility] (DEFAULT) [address] [place] [address] 84891 Nitrites Urine Negative Normal Negative [facility] Comment on above: Order Comment: For i ndwelling catheters, specimen collection is acceptable on catheter day 1 and 2 only. ? Performed By: #### U [id number] #### [facility] (DEFAULT) [address] [place] [address] pH (U) 5.0 [pH] Normal 5.0-7.0 [facility] Comment on above: Order Comment: For i ndwelling catheters, specimen collection is acceptable on catheter day 1 and 2 only. ? Performed By: #### U [id number] #### [facility] (DEFAULT) [address] [place] [address]157 Protein Urine 30 mg/dL Abnormal Negative [facility] Comment on above: Order Comment: For i ndwelling catheters, specimen collection is acceptable on catheter day 1 and 2 only. ? Performed By: #### U [id number] #### [facility] (DEFAULT) [address] [place] [address] 18446 RBC Urine 0-2 Normal 0-2 [facility] Comment on above: Order Comment: For i ndwelling catheters, specimen collection is acceptable on catheter day 1 and 2 only. ? Performed By: #### U [id number] #### [facility] (DEFAULT) [address] [place] [address] Specific [place] Urine > High 1.001-1.035 [facility] Comment on above: Order Comment: For i ndwelling catheters, specimen collection is acceptable on catheter day 1 and 2 only. ? Performed By: #### U [id number] #### [facility] (DEFAULT) [address] [place] [address] 84960 Squamous/Epithelial Cells, Urine 0-2/hpf Normal 0-2/hpf, 3-5/hpf = 1+ [facility] Comment on above: Order Comment: For i ndwelling catheters, specimen collection is acceptable on catheter day 1 and 2 only. ? Performed By: #### U [id number] #### [facility] (DEFAULT) [address] [address] Urobilinogen Urine 0.2 E.U./dL Normal 0.2 E.U/d L, 1.0 E.U/dL [facility] Comment on above: Order Comment: For i ndwelling catheters, specimen collection is acceptable on catheter day 1 and 2 only. ? Performed By: #### U [id number] #### [facility] (DEFAULT) [address] [place] [address] WBC Urine 0 - 5 Normal 0 - 5 [facility] Comment on above: Order Comment: For i ndwelling catheters, specimen collection is acceptable on catheter day 1 and 2 only. ? Performed By: #### U [id number] #### [facility] (DEFAULT) [address] [place] [address] URINE DRUG SCREEN 04-09 Amphetamine+Methamphet amine Screen (U) [Mass/Vol] Not detected Cutoff: 500 ng/mL [facility] Barbiturates Ql (U) Not detected Cutoff: 200 ng/mL [facility] Benzodiazepines Ql (U) Not detected Cutof f: 200 ng/mL [facility] Buprenorphine Ql (U) Not detected Cutoff: 5 ng/mL [facility] Cannabinoids Screen Ql (U) Not detected Cutoff: 50 ng/mL [facility] Cocaine Ql (U) Not detected Cutoff: 150 ng/mL [facility] fentaNYL Ql (U) Not detected Cutoff: 1 ng/mL [facility] Interpretation and review of laboratory results Normal [facility] Methadone Ql (U) Not detected Cutoff: 300 ng/mL [facility] Opiates Ql (U) Not detected Cutoff: 300 ng/mL [facility] oxyCODONE Ql (U) Not detected Cutoff: 100 ng/mL [facility] Amphetamine/Methamphet amine Not detected Normal Cutoff: 500 ng/mL [facility] Comment on above: Order Comment: For edical purposes only. Positive results are unconfirmed unless otherwise noted. Performed By: #### G SVALL #### [facility] (DEFAULT) [address] [address] Barbiturates Not detected Normal Cutoff: 200 ng/mL [facility] Comment on above: Order Comment: For edical purposes only. Positive results are unconfirmed unless otherwise noted. Performed By: #### G SVALL #### [facility] (DEFAULT) [address] [address] Benzodiazepines Not detected Normal Cutoff: 200 ng/mL [facility] Comment on above: Order Comment: For edical purposes only. Positive results are unconfirmed unless otherwise noted. Performed By: #### G SVALL #### [facility] (DEFAULT) [address] [address] Buprenorphine Not detected Normal Cutoff: 5 ng/mL [facility] Comment on above: Order Comment: For edical purposes only. Positive results are unconfirmed unless otherwise noted. Performed By: #### G SVALL #### [facility] (DEFAULT) [address] [address] Cannabinoids Screen Ql (U) Not detected Normal Cutoff: 50 ng/mL [facility] Comment on above: Order Comment: For edical purposes only. Positive results are unconfirmed unless otherwise noted. Performed By: #### G SVALL #### [facility] (DEFAULT) [address] [address] Cocaine Not detected Normal Cutoff: 150 ng/mL [facility] Comment on above: Order Comment: For edical purposes only. Positive results are unconfirmed unless otherwise noted. Performed By: #### G SVALL #### [facility] (DEFAULT) [address] [place] [address] Fentanyl Not detected Normal Cutoff: 1 ng/mL [facility] Comment on above: Order Comment: For m edical purposes only. Positive results are unconfirmed unless otherwise noted. Performed By: #### G SVALL #### [facility] (DEFAULT) [address] [place] [address] Methadone Not detected Normal Cutoff: 300 ng/mL [facility] Comment on above: Order Comment: For m edical purposes only. Positive results are unconfirmed unless otherwise noted. Performed By: #### G SVALL #### [facility] (DEFAULT) [address] [address] Opiates Not detected Normal Cutoff: 300 ng/mL [facility] Comment on above: Order Comment: For m edical purposes only. Positive results are unconfirmed unless otherwise noted. Performed By: #### G SVALL #### [facility] (DEFAULT) [address] [address] Oxycodone Not detected Normal Cutoff: 100 ng/mL [facility] Comment on above: Order Comment: For edical purposes only. Positive results are unconfirmed unless otherwise noted. Performed By: #### G SVALL #### [facility] (DEFAULT) [address] [address] XR CHEST 1 VIEW PORTABLEon 0 04-09-2025 XR CHEST 1 VIEW PORTABLE EXAM: XR CHEST 1 VIEW PORTABLE, 04/09/2025 06:41 AM COMPARISON: XR CHEST 1 VIEW PORTABLE April 08, 2025, CT CHEST WITH CONTRAST VASCULAR TRAUMA April 08, 2025 CLINICAL INDICATIONS: PNA RELEVANT CLINICAL HISTORY: FINDINGS: (Adequate technique) Implanted Devices: None Thorax: Normal cardiac size. Normal aorta fluid density within the mediastinum better seen on prior chest CT. No acute osseous abnormality. Lungs are clear. No pneumothorax. Small bilateral pleural effusions better seen on prior chest CT. Left basilar atelectasis. IMPRESSION: No acute cardiopulmonary disease. No evidence for pneumonia. Small bilateral pleural effusions better seen on prior day CT chest. Mediastinal fluid density is better seen on prior day CT chest. I personally viewed and interpreted these images and I have reviewed and approved this report. Normal [facility] XR CHEST 1 VIEW PORTABLE EXAM: XR CHEST 1 VIEW PORTABLE, 04/08/2025 15:49 PM COMPARISON: No prior studies available for comparison. CLINICAL INDICATIONS: Trauma RELEVANT CLINICAL HISTORY: FINDINGS: (Adequate technique) Implanted Devices: None Thorax: No acute findings in the chest. IMPRESSION: No acute cardiopulmonary disease I personally viewed and interpreted these images and I have reviewed and approved this report. Normal [facility] XR FLUORO ESOPHAGUSon 2024 XR FLUORO ESOPHAGUS EXAM: XR FLUORO ESOP HAGUS, 04/09/2025 14:34 PM COMPARISON: CT CHEST WITH CONTRAST VASCULAR TRAUMA April 08, 2025, XR CHEST 1 VIEW PORTABLE April 09, 2025 CLINICAL INDICATIONS: c/f esophageal perforation. TECHNIQUE: Oral Omnipaque followed by thin barium was administered and multiple spot films of the esophagus and the proximal stomach were obtained in various projections to evaluate for leak. TOTAL FLUORO TIME: 1 min FINDINGS: Rn Cardiac Rehab radiograph: No pneumothorax. Calcification of the bronchial rings. Bibasilar atelectatic changes. Cardiac silhouette is grossly normal. Esophagram for leak: Dysfunctional swallowing mechanism with a few episodes of laryngeal penetration progressed to silent aspiration. No contrast leak or strictures are appreciated throughout the esophagus. Esophageal mucosa is grossly normal on this single type esophagram Esophageal motility is discoordinated with incomplete stripping waves and superior escape. In the proximal thoracic esophagus/distal cervical esophagus, there are 2 persistent impressions on the posterior esophagus with a focal, smooth rounded outpouching. Additionally, in the distal third esophagus there is a nonstenotic, nonobstructing mucosal ring. Sliding-type hiatal hernia extends approximately 3.3 cm above the hiatus. Confirmed gastroesophageal reflux. IMPRESSION: 1. No fluoroscopic evidence of contrast leak or stricture throughout the esophagus. 2. Two, persistent and prominent impressions in the distal cervical/proximal thoracic esophagus that causes a focal outpouching of the posterior cervical esophagus. This correlates to the same location of the reported esophageal irregularity on the prior CT scan. A few differentials could include pulsion style diverticulum due to osteophytosis complex sees in this region. Less likely would suspect cricopharyngeal hypertrophy given the location of the impression on cervical esophagus which is lower than typically expected. Which could subsequently reflect a Laimer diverticulum. Recommend direct inspection for further evaluation. 3. Sliding-type hiatal hernia with associated nonobstructing mucosal ring. Confirmed gastroesophageal reflux. 4. Diffuse esophageal dysmotility. 5. A few episodes of silent aspiration Procedure performed by CAPRICE Christopher under the direct supervision of Dr. David Bower. I personally viewed and interpreted these images and I have reviewed and approved this report. Normal [facility] XR SHOULDER RIGHT 2+ VIEWSon 04-09-2025 XR SHOULDER RIGHT 2+ VIEWS EXAM: XR SHOULDER RIGHT 2+ VIEWS, 04/08/2025 21:53 PM CLINICAL INDICATIONS: Shoulder pain, trauma RELEVANT CLINICAL HISTORY: COMPARISON: No prior studies available for comparison. FINDINGS: 3 images obtained. Soft Tissue: No soft tissue swelling evident. Bone: There is diffuse osseous demineralization. No acute fracture is seen. Cortical irregularity of the greater tuberosity is evident. Joint: Cephalization of the humeral head with narrowing of the acromiohumeral distance and remodeling of the undersurface of the acromion. Mineralized bodies are noted within the axillary recess. Narrowing and osteophytosis of the AC joint. IMPRESSION: Osteopenia. No acute osseous abnormality. Sequela of chronic rotator cuff arthropathy with advanced glenohumeral osteoarthritis and acromioclavicular arthritic changes. Normal [facility] XR Shoulder - right 2 Viewso n 04-09-2025 RADIOLOGY RADIOLOGY [facility] XR Shoulder - right 2 ViewsO rdered By: Prakash Nuñez on 04-09-2025 [facility] Work Phone: ALCOHOL (ETHANOL),BLOODon Ethanol Ql (Bld) mg/dL NINF - 10 mg/dL [facility] Interpretation and review of laboratory results [facility] Alcohol, Serum <10 Normal <10 [facility] Comment on above: Order Comment: Non-f randiic. Performed By: #### L DO, MGO, IPB, CHM7 #### [facility] (DEFAULT) [address] [place] [address] Absolute lymphocyte countOrd ered By: Shaun Camejo on 04-08-2025 Lymphocytes Auto (Unsp spec) [#/Vol] 1.12 10*3/uL 0.83-4.51 [facility] Absolute neutrophil countOrd ered By: Shaun Camejo on 04-08-2025 Neutrophils (Bld) [#/Vol] 2.7 10*3/uL 2.0-7.7 [facility] Activated partial thrombopla stin time (aPTT) in platelet poor plasma by coagulation aOrdered By: Shaun Camejo on 04-08-2025 aPTT Coag (PPP) [Time] 21.6 s Low 24.1-36.2 [facility] Anion gap in Serum or Plasma Ordered By: Shaun Camejo on 04-08-2025 Anion gap [Moles/Vol] 13 mmol/L 5-15 [facility] Automated lymphocyte count a s percentage of total leukocytesOrdered By: Shaun Camejo on 04-08-2025 Lymphocytes/100 WBC Auto (Unsp spec) 27.7 % 19-41 [facility] BUN/creatinine ratioOrdered By: Shaun Camejo on 04-08-2025 Urea nitrogen/Creatinine [Mass ratio] 17.8 mg/mg 10-20 [facility] Basophil percentageOrdered B y: Shaun Camejo on 04-08-2025 Basophils/100 WBC (Bld) 0.7 % 0-1 [facility] Bedside Glucoseon 04-08-2025 FINGERSTICK GLU 151 mg/dL High 74-106 [facility] Comment on above: Result Comment: [place] GEMENT OF PATIENT CARE PER NURSING PROTOCOL Performed By: #### L 501.080 ####[facility] [id number] [place], [address] Bilirubin Test strip Ql (U)O rdered By: Shaun Camejo on 04-08-2025 Bilirubin Ql (U) Negative Negative [facility] Bilirubin directOrdered By: Shaun Camejo on 04-08-2025 Bilirubin.direct [Mass/Vol] 0.24 mg/dL 0.00-0.30 [facility] Bilirubin, totalOrdered By: Shaun Camejo on 04-08-2025 Bilirubin [Mass/Vol] 0.51 mg/dL 0.00-1.30 [facility] Blood cultureOrdered By: Ginette Camejo on 04-08-2025 Bacteria identified Cx Nom (Bld) No growth in 5 days. [facility] Blood manual differential co mment interpretation (narrative result)Ordered By: Shaun Camejo on 04-08-2025 Manual differential comment Nba (Bld) [Interp] SCANNED [facility] CBC AND ELECTRONIC DIFFon Basophils (Bld) [#/Vol] K/uL 0.00 - 0.15 K/uL [facility] Basophils/100 WBC (Bld) 0.3 % [facility] Differential cell count method Nom (Bld) Electronic Differential [facility] Eosinophils (Bld) [#/Vol] K/uL 0.00 - 0.42 K/uL [facility] Eosinophils/100 WBC (Bld) 0 % [facility] Erythrocyte distribution width (RBC) [Ratio] 17.7 % High 10.8 - 14.9 % [facility] Hematocrit (Bld) [Volume fraction] 28.9 % Low 34.9 - 44.3 % [facility] Hemoglobin (Bld) [Mass/Vol] 9.4 g/dL Low 11.4 - 15.2 g/dL [facility] Immature granulocytes (Bld) [#/Vol] K/uL NINF - 0.08 K/uL [facility] Immature granulocytes/100 WBC (Bld) 0.3 % [facility] Interpretation and review of laboratory results Abnormal [facility] Lymphocytes (Bld) [#/Vol] 0.64 10*3/uL Low 1.16 - 3.51 K/uL [facility] Lymphocytes/100 WBC (Bld) 6.9 % [facility] MCH (RBC) [Entitic mass] 35.3 pg High 25.9 - 33.9 pg [facility] MCHC (RBC) [Mass/Vol] 32.5 g/dL 31.4 - 35.9 g/dL [facility] MCV (RBC) [Entitic vol] 108.6 fL High 79.6 - 97.7 fL [facility] Monocytes (Bld) [#/Vol] 0.44 10*3/uL 0.22 - 0.87 K/uL [facility] Monocytes/100 WBC (Bld) 4.7 % [facility] Neutrophils (Bld) [#/Vol] 8.15 10*3/uL High 1.64 - 7.28 K/uL [facility] Nucleated RBC/100 WBC (Bld) [Ratio] 0.2 % NINF [facility] Platelet mean volume (Bld) [Entitic vol] 8.9 fL 8.5 - 12.2 fL [facility] Platelets (Bld) [#/Vol] 152 10*3/uL 150 - 393 K/uL [facility] RBC (Bld) [#/Vol] 2.66 10*6/uL Low [facility] Segmented neutrophils/100 WBC (Bld) 87.8 % [facility] WBC (Bld) [#/Vol] 9.29 10*3/uL 3.99 - 11.19 K/uL [facility] Abs Baso Auto < Normal 0.00-0.15 [facility] Comment on above: Performed By: #### L DO MGCinda IPOlga, LUCIE7 #### [facility] (DEFAULT) [address] [address] Abs Eos Auto < Normal 0.00-0.42 [facility] Comment on above: Performed By: #### L DO MGO, IPB, CHM7 #### [facility] (DEFAULT) [address] [place] [address] Basophils/100 WBC (Bld) 0.3 % Normal [facility] Comment on above: Performed By: #### L DO, MGO, IPB, CHM7 #### [facility] (DEFAULT) [address] [place] [address] DIFF STATUS Electronic Differential Normal [facility] Comment on above: Performed By: #### L DO, MGO, IPB, CHM7 #### [facility] (DEFAULT) [address] [place] [address] Eosinophils/100 WBC (Bld) 0.0 % Normal [facility] Comment on above: Performed By: #### L DO, MGO, IPB, CHM7 #### [facility] (DEFAULT) [address] [place] [address] Hematocrit (Bld) [Volume fraction] 28.9 % Low 34.9-44.3 [facility] Comment on above: Performed By: #### L DO, MGO, IPB, CHM7 #### [facility] (DEFAULT) [address] [place] [address] Hemoglobin (Bld) [Mass/Vol] 9.4 g/dL Low 11.4-15.2 [facility] Comment on above: Performed By: #### L DO, MGO, IPB, CHM7 #### [facility] (DEFAULT) [address] [place] [address] Immature Grans % 0.3 % Normal [facility] Comment on above: Performed By: #### L DO, MGO, IPB, CHM7 #### [facility] (DEFAULT) [address] [place] [address] Immature Grans Absolute < Normal <=0.08 [facility] Comment on above: Performed By: #### L DO, MGO, IPB, CHM7 #### [facility] (DEFAULT) [address] [place] [address] Lymphocytes (Bld) [#/Vol] 0.64 10*3/uL Low 1.16-3.51 [facility] Comment on above: Performed By: #### L DO, MGO, IPB, CHM7 #### [facility] (DEFAULT) [address] [place] [address] Lymphocytes/100 WBC (Bld) 6.9 % Normal [facility] Comment on above: Performed By: #### L DO, MGO, IPB, CHM7 #### [facility] (DEFAULT) [address] [place] [address]1371 MCV (RBC) [Entitic vol] 108.6 fL High 79.6-97.7 [facility] Comment on above: Performed By: #### L DO, MGO, IPB, CHM7 #### [facility] (DEFAULT) [address] [place] [address] Mean Cell Hgb 35.3 pg High 25.9-33.9 [facility] Comment on above: Performed By: #### L DO, MGO, IPB, CHM7 #### [facility] (DEFAULT) [address] [place] [address] Mean Cell Hgb Conc 32.5 g/dL Normal 31.4-35.9 [facility] Comment on above: Performed By: #### L DO, MGO, IPB, CHM7 #### [facility] (DEFAULT) [address] [place] [address] Monocytes (Bld) [#/Vol] 0.44 10*3/uL Normal 0.22-0.87 [facility] Comment on above: Performed By: #### L DO, MGO, IPB, CHM7 #### [facility] (DEFAULT) [address] [place] [address] Monocytes/100 WBC (Bld) 4.7 % Normal [facility] Comment on above: Performed By: #### L DO, MGO, IPB, CHM7 #### [facility] (DEFAULT) [address] [place] [address] Nucleated RBC 0.2 /100 WBC Normal <=0.2 [facility] Comment on above: Performed By: #### L DO, MGO, IPB, CHM7 #### [facility] (DEFAULT) [address] [place] [address] Platelet mean volume (Bld) [Entitic vol] 8.9 fL Normal 8.5-12.2 [facility] Comment on above: Performed By: #### L DO, MGO, IPB, CHM7 #### [facility] (DEFAULT) [address] [place] [address] Platelets (Bld) [#/Vol] 152 10*3/uL Normal 150-393 [facility] Comment on above: Performed By: #### L DO, MGO, IPB, CHM7 #### [facility] (DEFAULT) [address] [place] [address] RBC (Bld) [#/Vol] 2.66 10*6/uL Low 3.91-5.04 [facility] Comment on above: Performed By: #### L DO, MGO, IPB, CHM7 #### [facility] (DEFAULT) [address] [place] [address] 31348 RBC Distribution 17.7 % High 10.8-14.9 [facility] Comment on above: Performed By: #### L DO, MGO, IPB, CHM7 #### [facility] (DEFAULT) [address] [place] [address] 6[address] Segs + Bands Auto 87.8 % Normal [facility] Comment on above: Performed By: #### L DO, MGO, IPB, CHM7 #### [facility] (DEFAULT) [address] [place] [address] Segs + Bands,Absolute Auto 8.15 K/uL High 1.64-7.28 [facility] Comment on above: Performed By: #### L ARNEL TOBIAS IPB, CHM7 #### [facility] (DEFAULT) [address] [place] [address] WBC (Bld) [#/Vol] 9.29 10*3/uL Normal 3.99-11.19 [facility] Comment on above: Performed By: #### L ARNEL TOBIAS, UBALDO, CHM7 #### [facility] (DEFAULT) [address] [place] [address] CBC W/Diff, Automatedon 03-16 Anisocytosis Ql (Bld) 2+ Normal [facility] Comment on above: Performed By: #### L 501.4021, M200.1000, L503.6005, L100.0100, L500.4050, L500.3400, L300.4310 ####[facility] [address] [place], [place], [id number] SMEAR COMMENT SCANNED Normal [facility] Comment on above: Performed By: #### L 501.4021, M200.1000, L503.6005, L100.0100, L500.4050, L500.3400, L300.4310 ####[facility] [address] [place], [place], [id number] CBC,PLATELETSon 04-08-2025 Erythrocyte distribution width (RBC) [Ratio] 17.6 % High 10.8 - 14.9 % [facility] Hematocrit (Bld) [Volume fraction] 22.2 % Low 34.9 - 44.3 % [facility] Hemoglobin (Bld) [Mass/Vol] 7.3 g/dL Low 11.4 - 15.2 g/dL [facility] Interpretation and review of laboratory results Abnormal [facility] MCH (RBC) [Entitic mass] 35.6 pg High 25.9 - 33.9 pg [facility] MCHC (RBC) [Mass/Vol] 32.9 g/dL 31.4 - 35.9 g/dL [facility] MCV (RBC) [Entitic vol] 108.3 fL High 79.6 - 97.7 fL [facility] Platelet mean volume (Bld) [Entitic vol] 10.1 fL 8.5 - 12.2 fL [facility] Platelets (Bld) [#/Vol] 131 10*3/uL Low 150 - 393 K/uL [facility] RBC (Bld) [#/Vol] 2.05 10*6/uL Low [facility] WBC (Bld) [#/Vol] 6.54 10*3/uL 3.99 - 11.19 K/uL [facility] Hematocrit (Bld) [Volume fraction] 22.2 % Low 34.9-44.3 [facility] Comment on above: Performed By: #### L DO, MGO, IPB, CHM7 #### [facility] (DEFAULT) [address] [address] Hemoglobin (Bld) [Mass/Vol] 7.3 g/dL Low 11.4-15.2 [facility] Comment on above: Result Comment: Resu lts inconsistent with previous results. Performed By: #### L DO, MGO, IPB, CHM7 #### [facility] (DEFAULT) [address] [place] [address]84 MCV (RBC) [Entitic vol] 108.3 fL High 79.6-97.7 [facility] Comment on above: Performed By: #### L DO, MGO, IPB, CHM7 #### [facility] (DEFAULT) [address] [address] Mean Cell Hgb 35.6 pg High 25.9-33.9 [facility] Comment on above: Performed By: #### L DO, MGO, IPB, CHM7 #### [facility] (DEFAULT) [address] [place] [address]36 Mean Cell Hgb Conc 32.9 g/dL Normal 31.4-35.9 [facility] Comment on above: Performed By: #### L DO, MGO, IPB, CHM7 #### [facility] (DEFAULT) [address] [place] [address] Platelet mean volume (Bld) [Entitic vol] 10.1 fL Normal 8.5-12.2 [facility] Comment on above: Performed By: #### L DO, MGO, IPB, CHM7 #### [facility] (DEFAULT) [address] [place] [address] Platelets (Bld) [#/Vol] 131 10*3/uL Low 150-393 [facility] Comment on above: Performed By: #### L DO, MGO, IPB, CHM7 #### [facility] (DEFAULT) [address] [place] [address] RBC (Bld) [#/Vol] 2.05 10*6/uL Low 3.91-5.04 [facility] Comment on above: Performed By: #### L DO, MGO, IPB, CHM7 #### [facility] (DEFAULT) [address] [place] [address] RBC Distribution 17.6 % High 10.8-14.9 [facility] Comment on above: Performed By: #### L DO, MGO, IPB, CHM7 #### [facility] (DEFAULT) [address] [place] [address] WBC (Bld) [#/Vol] 6.54 10*3/uL Normal 3.99-11.19 [facility] Comment on above: Performed By: #### L DO, MGO, IPB, CHM7 #### [facility] (DEFAULT) [address] [place] [address] [facility] 7 - EDon 04-08-2025 Anion gap [Moles/Vol] 12 mmol/L 7 - 17 mmol/L [facility] Chloride [Moles/Vol] 108 mmol/L 98 - 10 8 mmol/L [facility] CO2 [Moles/Vol] 20 mmol/L Low 21 - 31 mmol/L [facility] Creatinine [Mass/Vol] 0.99 mg/dL 0.50 - 1.20 mg/dL [facility] eGFR, CKD-EPI, Female 57 Low - PINF [facility] Glucose [Mass/Vol] 192 mg/dL High 70 - 179 mg/dL [facility] Interpretation and review of laboratory results Abnormal [facility] Osmolality Calc [Osmolality] 294 [facility] Potassium [Moles/Vol] 4.3 mmol/L 3.5 - 5.0 mmol/L [facility] Sodium [Moles/Vol] 136 mmol/L 135 - 145 mmol/L [facility] Urea nitrogen [Mass/Vol] 20 mg/dL 7 - 25 mg/dL [facility] Urea nitrogen/Creatinine [Mass ratio] 20 mg/mg [facility] Anion gap [Moles/Vol] 12 mmol/L Normal 7-17 [facility] Comment on above: Performed By: #### L DO, MGO, IPB, CHM7 #### [facility] (DEFAULT) [address] [place] [address] Chloride [Moles/Vol] 108 mmol/L Normal 98-108 [facility] Comment on above: Performed By: #### L DO, MGO, IPB, CHM7 #### [facility] (DEFAULT) [address] [place] [address] CO2 [Moles/Vol] 20 mmol/L Low 21-31 [facility] Comment on above: Performed By: #### L DO, MGO, IPB, CHM7 #### [facility] (DEFAULT) [address] [place] [address] Creatinine [Mass/Vol] 0.99 mg/dL Normal 0.50-1.20 [facility] Comment on above: Performed By: #### L DO, MGO, IPB, CHM7 #### [facility] (DEFAULT) [address] [place] [address] GFR/1.73 sq M.predicted among non-blacks MDRD (S/P/Bld) [Vol rate/Area] 57 mL/min/{1.73_m2} Low >=60 [facility] Comment on above: Result Comment: Repo rted eGFR is based on the CKD-EPI 2020 equation using creatinine, age, and sex. Performed By: #### L DO, MGO, IPB, CHM7 #### [facility] (DEFAULT) [address] [place] [address] Glucose [Mass/Vol] 192 mg/dL High Nonfastin -179 mg/dL; Fastin-99 [facility] Comment on above: Performed By: #### L DO, MGO, IPB, CHM7 #### [facility] (DEFAULT) [address] [place] [address] Osmolality [Osmolality] 294 mosm/kg Normal 278-305 [facility] Comment on above: Performed By: #### L DO, MGO, IPB, CHM7 #### [facility] (DEFAULT) [address] [place] [address]28 Sodium [Moles/Vol] 136 mmol/L Normal 135-145 [facility] Comment on above: Performed By: #### L DO, MGO, IPB, CHM7 #### [facility] (DEFAULT) [address] [place] [address] 86567 Urea nitrogen [Mass/Vol] 20 mg/dL Normal 7-25 [facility] Comment on above: Performed By: #### L DO, MGO, IPB, CHM7 #### [facility] (DEFAULT) [address] [place] [address]89 Urea nitrogen/Creatinine [Mass ratio] 20 mg/mg Normal [facility] Comment on above: Performed By: #### L DO, MGO, IPB, CHM7 #### [facility] (DEFAULT) [address] [place] [address] CT Chest, Abd, Pel w/Contras ton 04-08-2025 CT Chest, Abd, Pel w/Contrast Normal [facility] Carbon dioxide, total [Moles /volume] in Central venous bloodOrdered By: Shaun Camejo on 04-08-2025 CO2 [Moles/Vol] 18.3 mmol/L Low 21.0-32.0 [facility] Chloride assayOrdered By: Destin Camejo on 04-08-2025 Chloride [Moles/Vol] 106 mmol/L 98-108 [facility] Comprehensive Metabolic Prof ilon 04-08-2025 Albumin/Globulin [Mass ratio] 1.7 {ratio} Normal 0.9-2.4 [facility] Comment on above: Performed By: #### L 501.4021, M200.1000, L503.6005, L100.0100, L500.4050, L500.3400, L300.4310 ####[facility] [address] [place], [address] BUN/CRE 17.8 RATIO Normal 10-20 [facility] Comment on above: Performed By: #### L 501.4021, M200.1000, L503.6005, L100.0100, L500.4050, L500.3400, L300.4310 ####[facility] [address] [place], [address] Calcium [Mass/Vol] 8.5 mg/dL Normal 7.6-11.0 [facility] Comment on above: Performed By: #### L 501.4021, M200.1000, L503.6005, L100.0100, L500.4050, L500.3400, L300.4310 ####[facility] [address] [place], [address] Chloride [Moles/Vol] 106 mmol/L Normal 98-108 [facility] Comment on above: Performed By: #### L 501.4021, M200.1000, L503.6005, L100.0100, L500.4050, L500.3400, L300.4310 ####[facility] [address] [place], [address] CO2 [Moles/Vol] 18.3 mmol/L Low 21.0-32.0 [facility] Comment on above: Performed By: #### L 501.4021, M200.1000, L503.6005, L100.0100, L500.4050, L500.3400, L300.4310 ####[facility] [address] [place], [address] Creatinine [Mass/Vol] 1.01 mg/dL Normal 0.70-1.20 [facility] Comment on above: Performed By: #### L 501.4021, M200.1000, L503.6005, L100.0100, L500.4050, L500.3400, L300.4310 ####[facility] [address] [place], [address] ECRCL 42.27 ml/min Low 50-250 [facility] Comment on above: Performed By: #### L 501.4021, M200.1000, L503.6005, L100.0100, L500.4050, L500.3400, L300.4310 ####[facility] [address] [place], [address] GAP 13 Normal 5-15 [facility] Comment on above: Performed By: #### L 501.4021, M200.1000, L503.6005, L100.0100, L500.4050, L500.3400, L300.4310 ####[facility] [address] [place], [address] GFR/1.73 sq M.predicted among non-blacks MDRD (S/P/Bld) [Vol rate/Area] 56 mL/min/{1.73_m2} Low >60 [facility] Comment on above: Result Comment: mL/m in/1.73m2 CKD-EPI Creatinine Equation (2020) Performed By: #### L 501.4021, M200.1000, L503.6005, L100.0100, L500.4050, L500.3400, L300.4310 ####[facility] [address] [place], [address] Glucose [Mass/Vol] 170 mg/dL High 70-99 [facility] Comment on above: Performed By: #### L 501.4021, M200.1000, L503.6005, L100.0100, L500.4050, L500.3400, L300.4310 ####[facility] [address] [place], [address] Potassium [Moles/Vol] 4.3 mmol/L Normal 3.3-5.1 [facility] Comment on above: Performed By: #### L 501.4021, M200.1000, L503.6005, L100.0100, L500.4050, L500.3400, L300.4310 ####[facility] [address] [place], [address] Sodium [Moles/Vol] 137 mmol/L Normal 133-145 [facility] Comment on above: Performed By: #### L 501.4021, M200.1000, L503.6005, L100.0100, L500.4050, L500.3400, L300.4310 ####[facility] [address] [place], [address] Urea nitrogen [Mass/Vol] 18 mg/dL Normal 4-19 [facility] Comment on above: Performed By: #### L 501.4021, M200.1000, L503.6005, L100.0100, L500.4050, L500.3400, L300.4310 ####[facility] [address] [place], [address] Emergency Department Summary on 04-08-2025 Emergency Department Summary Normal [facility] Eosinophil percentageOrdered By: Shaun Camejo on 04-08-2025 Eosinophils/100 WBC (Bld) 0.7 % 0-5 [facility] Erythrocyte distribution wid th ratioOrdered By: Shaun Camejo on 04-08-2025 Erythrocyte distribution width (RBC) [Ratio] 17.8 % High 11.6-14.6 [facility] Erythrocyte distribution wid th standard deviationOrdered By: Shaun Camejo on 04-08-2025 Erythrocyte distribution width (RBC) [Ratio] 67.8 fl High 35.1-43.9 [facility] GLUCOSE POCon 04-08-2025 Glucose [Mass/Vol] 183 mg/dL High 70 - 179 mg/dL [facility] Interpretation and review of laboratory results Abnormal [facility] POC Sample Type VENO [facility] Glomerular filtration rate ( GFR) estimation/1.73 sq m using serum, plasma, or whole bOrdered By: Shaun Camejo on 04-08-2025 GFR/1.73 sq M.predicted among non-blacks MDRD (S/P/Bld) [Vol rate/Area] 56 mL/min/{1.73_m2} Low >60 [facility] Comment on above: mL/min/1.73m2 CKD-EP I Creatinine Equation (2020) Glucose measurement at [facility] deOrdered By: Shaun Camejo on 04-08-2025 Glucose [Mass/Vol] 151 mg/dL High 74-106 [facility] Comment on above: MANAGEMENT OF PATIEN T CARE PER NURSING PROTOCOL HIGH SENSITIVITY TROPONIN I - SINGLE ORDERon 04-08-2025 Interpretation and review of laboratory results Normal [facility] Troponin I.cardiac High sensitivity method [Mass/Vol] 15 ng/L NINF - 34 ng/L [facility] hs-Troponin I 15 ng/L Normal <34 [facility] Comment on above: Order Comment: Acute Coronary Syndrome (ACS): Initial Evaluation and Management:[email or web address]%[email or web address] Performed By: #### I CA #### [facility] (DEFAULT) [address] [address] Hematocrit Auto (Bld) [Volum e fraction]Ordered By: Shaun Camejo on 04-08-2025 Hematocrit (Bld) [Volume fraction] 29.8 % Low 37-47 [facility] Hemoglobin measurementOrdere d By: Shaun Camejo on 04-08-2025 Hemoglobin (Bld) [Mass/Vol] 10.2 g/dL Low 12.0-15.0 [facility] Immature granulocytes/100 WB C Auto (Bld)Ordered By: Shaun Camejo on 04-08-2025 Immature granulocytes/100 WBC (Bld) 0.500 % 0.0-0.9 [facility] Comment on above: IG% - Immature Granu locytes (promyelocytes, myelocytes and metamyelocytes) > 1% indicates that a LEFT SHIFT is Present. International normalized rat io (INR) calculationOrdered By: Shaun Camejo on 04-08-2025 INR Coag (Bld) [Relative time] 1.3 {INR} [facility] Ketones Test strip Ql (U)Ord ered By: Shaun Camejo on 04-08-2025 Ketones Ql (U) Negative Negative [facility] L499.0042on 04-08-2025 Trop T High Sen 15 ng/L High <=14 [facility] Comment on above: Performed By: #### L 499.0042 ####[facility] [address] [place], [place], [address] L499.0043on 04-08-2025 Trop T High Sen Normal <=14 [facility] Comment on above: Result Comment: Canc elled via OM: Order cancelled - Patient discharged Performed By: #### L 499.0043 ####[facility] [address] [place], [address] L501.4021on 04-08-2025 Trop T High Sen 20 ng/L High <=14 [facility] Comment on above: Performed By: #### L 501.4021, M200.1000, L503.6005, L100.0100, L500.4050, L500.3400, L300.4310 ####[facility] [address] [facility] [place], [address] LIPID PANEL W CALCULATED LDL on 04-08-2025 Cholesterol [Mass/Vol] 158 mg/dL NINF - 200 mg/dL [facility] Cholesterol in HDL [Mass/Vol] 47 mg/dL 40 - PINF mg/dL [facility] Cholesterol in LDL [Mass/Vol] 94 mg/dL 0 - 99 mg/dL [facility] Cholesterol non HDL [Mass/Vol] 111 mg/dL NINF - 130 mg/dL [facility] Cholesterol.total/Chol esterol in HDL [Mass ratio] 3.4 {ratio} NINF - 4.5 [facility] Interpretation and review of laboratory results Normal [facility] Triglyceride [Mass/Vol] 84 mg/dL NINF - 150 mg/dL [facility] Calculated LDL Cholesterol 94 mg/dL Normal 0-99 [facility] Comment on above: Result Comment: [<10 0 mg/dL: Optimal] [100-129 mg/dL: Near Optimal] [130-159 mg/dL: Borderline High] [160-189 mg/dL: High] [>189 mg/dL: Very High] Performed By: #### L , ARNEL, IPOlga, CHM7 #### [facility] (DEFAULT) [address] [place] [address] Cholesterol [Mass/Vol] 158 mg/dL Normal <200 [facility] Comment on above: Result Comment: [<20 0 mg/dL: Desirable] [200-239 mg/dL: Borderline High] [>239 mg/dL: High] Performed By: #### L DO, MGO, IPB, CHM7 #### [facility] (DEFAULT) [address] [place] [address] Cholesterol in HDL [Mass/Vol] 47 mg/dL Normal >=40 [facility] Comment on above: Result Comment: [<40 mg/dL: Low (High Risk)] [>59 mg/dL: High (Low Risk)] Performed By: #### L DO, MGO, IPB, CHM7 #### [facility] (DEFAULT) [address] [place] [address] Non HDL Cholesterol 111 mg/dL Normal <130 [facility] Comment on above: Performed By: #### L DO, MGO, IPB, CHM7 #### [facility] (DEFAULT) [address] [place] [address] Total Cholesterol/HDL Ratio 3.4 Normal <4.5 [facility] Comment on above: Performed By: #### L DO, MGO, IPB, CHM7 #### [facility] (DEFAULT) [address] [place] [address] Triglyceride [Mass/Vol] 84 mg/dL Normal <150 [facility] Comment on above: Result Comment: [<15 0 mg/dL: Desirable] [150-199 mg/dL: Borderline] [200-499 mg/dL: High] [>500 mg/dL: Very High] Performed By: #### L DO, MGO, IPB, CHM7 #### [facility] (DEFAULT) [address] [place] [address] Laboratory - Chemistry and C hemistry - challengeOrdered By: Shaun Camejo on 04-08-2025 AST [Catalytic activity/Vol] 20 U/L <32 [facility] Laboratory - Hematology and Cell countsOrdered By: Shaun Camejo on 04-08-2025 Anisocytosis Ql (Bld) 2+ [facility] Lactic Acidon 04-08-2025 Lactate [Moles/Vol] 2.0 mmol/L Normal 0.0-2.0 [facility] Comment on above: Order Comment: Y Result Comment: Crit ical Result(s) Called to: Shayy RN (ER) by:Brisa??Results read back by same. Performed By: #### L 501.4021, M200.1000, L503.6005, L100.0100, L500.4050, L500.3400, L300.4310 ####[facility] [address] [place], [address] Lactic acid measurementOrder ed By: Shaun Camejo on 04-08-2025 Lactate [Moles/Vol] 2.0 mmol/L 0.0-2.0 [facility] Comment on above: Critical Result(s) C alled to: Shayy SHELDON (ER) by: Brisa Results read back by same. Liver Profileon 04-08-2025 Albumin [Mass/Vol] 3.6 g/dL Normal 3.4-4.8 [facility] Comment on above: Performed By: #### L 501.4021, M200.1000, L503.6005, L100.0100, L500.4050, L500.3400, L300.4310 ####[facility] [address] [place], [address] ALK PHOS 29 U/L Low 35-104 [facility] Comment on above: Performed By: #### L 501.4021, M200.1000, L503.6005, L100.0100, L500.4050, L500.3400, L300.4310 ####[facility] [address] [place], [address] ALT [Catalytic activity/Vol] 13 U/L Normal <=34 [facility] Comment on above: Performed By: #### L 501.4021, M200.1000, L503.6005, L100.0100, L500.4050, L500.3400, L300.4310 ####[facility] [address] [place], [address] AST [Catalytic activity/Vol] 20 U/L Normal <=31 [facility] Comment on above: Performed By: #### L 501.4021, M200.1000, L503.6005, L100.0100, L500.4050, L500.3400, L300.4310 ####[facility] [address] [place], [address] Bilirubin [Mass/Vol] 0.51 mg/dL Normal 0.00-1.30 [facility] Comment on above: Performed By: #### L 501.4021, M200.1000, L503.6005, L100.0100, L500.4050, L500.3400, L300.4310 ####[facility] [address] [place], [address] Bilirubin.direct [Mass/Vol] 0.24 mg/dL Normal 0.00-0.30 [facility] Comment on above: Performed By: #### L 501.4021, M200.1000, L503.6005, L100.0100, L500.4050, L500.3400, L300.4310 ####[facility] [address] [place], [address] Globulin (S) [Mass/Vol] 2.1 g/dL Low 2.2-4.2 [facility] Comment on above: Performed By: #### L 501.4021, M200.1000, L503.6005, L100.0100, L500.4050, L500.3400, L300.4310 ####[facility] [address] [place], [address] T PROT 5.7 g/dL Low 5.9-8.4 [facility] Comment on above: Performed By: #### L 501.4021, M200.1000, L503.6005, L100.0100, L500.4050, L500.3400, L300.4310 ####[facility] [address] [place], [address] MCV (mean corpuscular volume ) determinationOrdered By: Shaun Camejo on 04-08-2025 MCV (RBC) [Entitic vol] 104.6 fL High 81-99 [facility] Mean corpuscular hemoglobin (MCH) determinationOrdered By: Shaun Camejo on 04-08-2025 MCH (RBC) [Entitic mass] 35.8 pg High 27.0-32.0 [facility] Mean corpuscular hemoglobin concentration (MCHC) determinationOrdered By: Shaun Camejo on 04-08-2025 MCHC (RBC) [Mass/Vol] 34.2 g/dL 32-36 [facility] Mean platelet volume determi nationOrdered By: Shaun Camejo on 04-08-2025 Platelet mean volume (Bld) [Entitic vol] 8.8 fL 6.2-12.0 [facility] Microscopic analysis of urin e for red blood cells (RBC)Ordered By: Shaun Camejo on 04-08-2025 Microscopic analysis of urine for red blood cells (RBC) 0-5 SEEN /hpf 0-5 [facility] Monocyte percentageOrdered B y: Shaun Camejo on 04-08-2025 Monocytes/100 WBC (Bld) 4.7 % 0-10 [facility] Mucus LM Ql (Urine sed)Order ed By: Shaun Camejo on 04-08-2025 Mucus Ql (Urine sed) 0 SEEN /hpf [facility] Neutrophil percentageOrdered By: Shaun Camejo on 04-08-2025 Neutrophils/100 WBC (Bld) 65.7 % 47-70 [facility] Nitrite Test strip Ql (U)Ord ered By: Shaun Camejo on 04-08-2025 Nitrite Ql (U) Positive High Negative [facility] No Panel Informationon 04-08 Radiology Study observation (narrative) [facility] Nucleated red blood cell per centageOrdered By: Shaun Camejo on 04-08-2025 Nucleated RBC/100 WBC (Bld) [Ratio] 0.5 % 0-5 [facility] PREPARE TO TRANSFUSE RED BLO OD CELLSon 04-08-2025 ABO/RH(D) TYPE Positive [facility] BLOOD COMPONENT TYPE Red Cells, Leukoreduced [facility] EXPIRATION DATE [id number] [facility] Product ABO/RH(D) Positive [facility] Product ABO/RH(D) NUMBER 5100 [facility] PRODUCT CODE [id number] [facility] UNIT NUMBER [id number] [facility] UNIT STATUS transfused [facility] PROTIME-INRon 04-08-2025 INR Coag (Bld) [Relative time] 1.4 {INR} High 0.9 - 1.1 [facility] Interpretation and review of laboratory results Abnormal [facility] PT Coag (PPP) [Time] 16.9 s High [facility] INR Coag (PPP) [Relative time] 1.4 {INR} High 0.9-1.1 [facility] Comment on above: Performed By: #### G TAMMY #### [facility] (DEFAULT) [address] [place] [address] PT Coag (PPP) [Time] 16.9 s High 11.9-14.2 [facility] Comment on above: Performed By: #### G TAMMY #### [facility] (DEFAULT) [address] [place] [address] PTTOrdered By: Norman Howard on 04-08-2025 aPTT Coag (PPP) [Time] 22.4 s Low [facility] Interpretation and review of laboratory results Abnormal [facility] PTTon 04-08-2025 aPTT Coag (Bld) [Time] 22.4 s Low 24.0-34.3 [facility] Comment on above: Order Comment: Speci men integrity checked. Performed By: #### G TAMMY #### [facility] (DEFAULT) [address] [place] [address] Partial Thromboplast Timeon 04-08-2025 aPTT Coag (Bld) [Time] 21.6 s Low 24.1-36.2 [facility] Comment on above: Performed By: #### L 501.4021, M200.1000, L503.6005, L100.0100, L500.4050, L500.3400, L300.4310 ####[facility] [address] [place], [address] Platelet countOrdered By: Destin Camejo on 04-08-2025 Platelets (Bld) [#/Vol] 156 10*3/uL 150-450 [facility] Portable XR Chest Viewson Radiology Study observation (narrative) [facility] Potassium measurement (mass/ volume)Ordered By: Shaun Camejo on 04-08-2025 Potassium (Unsp spec) [Mass/Vol] 4.3 mmol/L 3.3-5.1 [facility] Protein Test strip Ql (U)Ord ered By: Shaun Camejo on 04-08-2025 Protein Ql (U) 30 mg/dl High Negative [facility] Prothrombin Time w/INRon INR Coag (PPP) [Relative time] 1.3 {INR} Normal [facility] Comment on above: Performed By: #### L 300.3900 ####[facility] [address] [place], [address] PT Coag (PPP) [Time] 16.8 s High 11.7-14.9 [facility] Comment on above: Performed By: #### L 300.3900 ####[facility] [address] [place], [address] Prothrombin timeOrdered By: Shaun Camejo on 04-08-2025 PT Coag (PPP) [Time] 16.8 s High 11.7-14.9 [facility] RBC Auto (Bld) [#/Vol]Ordere d By: Shaun Camejo on 04-08-2025 RBC (Bld) [#/Vol] 2.85 10*6/uL Low 4.2-5.4 [facility] STROKE Brain/Head without Co nton 04-08-2025 STROKE Brain/Head without Cont Normal [facility] STROKE CTA Head AND Neck W/C onon 04-08-2025 STROKE CTA Head AND Neck W/Con Normal [facility] Serum creatinine measurement (mass/volume)Ordered By: Shaun Camejo on 04-08-2025 Creatinine [Mass/Vol] 1.01 mg/dL 0.70-1.20 [facility] Serum globulin measurementOr dered By: Shaun Camejo on 04-08-2025 Globulin (S) [Mass/Vol] 2.1 g/dL Low 2.2-4.2 [facility] Serum glucose measurement (m ass/volume)Ordered By: Shaun Camejo on 04-08-2025 Glucose [Mass/Vol] 170 mg/dL High 70-99 [facility] Serum or plasma alanine eastman otransferase (ALT) measurementOrdered By: Shaun Camejo on 04-08-2025 ALT [Catalytic activity/Vol] 13 U/L <35 [facility] Serum or plasma albumin brandan urement (mass/volume)Ordered By: Shaun Camejo on 04-08-2025 Albumin [Mass/Vol] 3.6 g/dL 3.4-4.8 [facility] Serum or plasma albumin/glob ulin mass ratioOrdered By: Shaun Camejo on 04-08-2025 Albumin/Globulin [Mass ratio] 1.7 {ratio} 0.9-2.4 [facility] Serum or plasma alkaline katalina sphatase measurementOrdered By: Shaun Camejo on 04-08-2025 ALP [Catalytic activity/Vol] 29 U/L Low 35-104 [facility] Serum or plasma calcium brandan urement (mass/volume)Ordered By: Shaun Camejo on 04-08-2025 Calcium [Mass/Vol] 8.5 mg/dL 7.6-11.0 [facility] Serum or plasma urea nitroge n measurement (mass/volume)Ordered By: Shaun Camejo on 04-08-2025 Urea nitrogen [Mass/Vol] 18 mg/dL 4-19 [facility] Sinus/Facial Boneon 04-08-20 Sinus/Facial Bone Normal [facility] Sodium levelOrdered By: Soni Camejo on 04-08-2025 Sodium [Moles/Vol] 137 mmol/L 133-145 [facility] Spine Cervical without Contr ason 04-08-2025 Spine Cervical without Contras Normal [facility] Squamous epithelial cells de tection in urine sediment by light microscopyOrdered By: Shaun Camejo on 04-08-2025 Epithelial cells.squamous LM Ql (Urine sed) 0-5 SEEN /hpf 5-10 [facility] TSHon 04-08-2025 Interpretation and review of laboratory results Normal [facility] TSH Qn 0.733 m[IU]/L [facility] TSH 0.733 uIU/mL Normal 0.550-4.780 [facility] Comment on above: Performed By: #### L DO, MGO, IPB, CHM7 #### [facility] (DEFAULT) [address] [place] [address] TYPE AND SCREENon 04-08-2025 ABO/RH(D) TYPE Positive [facility] Specimen Expiration 04/11/2025 23:59 [facility] ABO/RH(D) TYPE Positive Normal [facility] Comment on above: Performed By: #### X M #### [facility] (DEFAULT) [address] [place] [address] Specimen Expiration 04/11/2025 23:59 Normal [facility] Comment on above: Performed By: #### X M #### [facility] (DEFAULT) [address] [place] [address] Tibia Fibula 2 Viewson 04-08 Tibia Fibula 2 Views Normal [facility] Total proteinOrdered By: Ginette Camejo on 04-08-2025 Protein [Mass/Vol] 5.7 g/dL Low 5.9-8.4 [facility] Troponin T.cardiac [Mass/vol ume] in Serum or Plasma by High sensitivity methodOrdered By: Shaun Camejo on 04-08-2025 Troponin T.cardiac High sensitivity method [Mass/Vol] 15 ng/L High <14 [facility] Troponin T.cardiac High sensitivity method [Mass/Vol] 20 ng/L High <14 [facility] Urinalysis, Completeon 04-08 BACTERIA 2+ /hpf Normal None Seen [facility] Comment on above: Order Comment: EILEEN TER SPECIMEN Performed By: #### L 400.0001, M1.2199 ####[facility] [address] [place], [address] EPI,SQUAMOUS 0-5 SEEN Normal 5-10 [facility] Comment on above: Order Comment: EILEEN TER SPECIMEN Performed By: #### L 400.0001, M1.2199 ####[facility] [address] [place], [address] RBC 0-5 SEEN Normal 0-5 [facility] Comment on above: Order Comment: EILEEN TER SPECIMEN Performed By: #### L 400.0001, M1.0 ####[facility] [address] [place], [address] WBC 5-10 SEEN Normal 0-5 [facility] Comment on above: Order Comment: EILEEN TER SPECIMEN Performed By: #### L 400.0001, M1.2199 ####[facility] [address] [place], [address] Mucus Ql (Urine sed) 0 SEEN Normal [facility] Comment on above: Order Comment: EILEEN TER SPECIMEN Performed By: #### L 400.0001, M1 ####[facility] [address] [place], [address] Urine clarityOrdered By: Ginette Camejo on 04-08-2025 Clarity (U) Cloudy Clear [facility] Urine color determinationOrd ered By: Shaun Camejo on 04-08-2025 Color (U) Yellow Yellow [facility] Urine cultureOrdered By: Ginette Camejo on 04-08-2025 Bacteria identified Cx Nom (U) Escherichia coli Abnormal [facility] Urine glucose detectionOrder ed By: Shaun Camejo on 04-08-2025 Glucose Ql (U) Normal mg/dl Normal [facility] Urine leukocyte esterase det ection by dipstickOrdered By: Shaun Camejo on 04-08-2025 Leukocyte esterase Test strip Ql (U) 25 /ul High Negative [facility] Urine pHOrdered By: Shaun moran on 04-08-2025 pH (U) 6.0 [pH] 5.0 - 8.0 [facility] Urine sediment bacteria coun t by microscopy (number/high power field)Ordered By: Shaun Camejo on 04-08-2025 Bacteria LM.HPF (Urine sed) [#/Area] 2 /[HPF] None Seen [facility] Urine specific gravity measu rementOrdered By: Shaun Camejo on 04-08-2025 Specific gravity (U) [Rel density] 1.025 1.002-1.030 [facility] Urine urobilinogen measureme ntOrdered By: Shaun Camejo on 04-08-2025 Urobilinogen Ql (U) Normal mg/dl Normal [facility] VENOUS BLOOD GAS (FULL PANEL )on 04-08-2025 Base excess Calc (Bld) [Moles/Vol] -4.3000 mmol/L Low -3.0 - 3.0 mmol/L [facility] Calcium.ionized (Bld) [Mass/Vol] 4.53 mg/dL Low 4.60 - 5.30 mg/dL [facility] Carboxyhemoglobin (Bld) [Mass fraction] 0.7 % NINF - 1.5 % [facility] CO[facility] (Bld) [Partial pressure] 41 mm[Hg] [facility] Glucose [Mass/Vol] 188 mg/dL High 70 - 179 mg/dL [facility] HCO3 (Bld) [Moles/Vol] 22 mmol/L 22 - 29 mmol/L [facility] Hematocrit (Bld) [Volume fraction] 29 % Low 34 - 46 % [facility] Hemoglobin (Bld) [Mass/Vol] 9.8 g/dL Low 11.4 - 15.2 g/dL [facility] Interpretation and review of laboratory results Abnormal [facility] Lactate [Moles/Vol] 1.9 mmol/L High 0.5 - 1. 6 mmol/L [facility] Methemoglobin (Bld) [Mass fraction] 0 % NINF - 1.5 % [facility] Oxygen (Bld) [Partial pressure] 35 mm[Hg] mm Hg [facility] Oxygen saturation in Blood 53 % Low 70 - 80 % [facility] Oxyhemoglobin 53 % Low 94 - 98 % [facility] pH (Bld) 7.33 [pH] 7.32 - 7.43 [facility] Potassium [Moles/Vol] 4.3 mmol/L 3.5 - 5.0 mmol/L [facility] Sodium [Moles/Vol] 132 mmol/L Low 135 - 145 mmol/L [facility] Specimen source Nom (Unsp spec) Venous [facility] Base Excess -4.3 mmol/L Low -3.0-3.0 [facility] Comment on above: Performed By: #### G SVALL #### [facility] (DEFAULT) [address] [address] Carboxyhemoglobin 0.7 % Normal <=1.5 [facility] Comment on above: Performed By: #### G SVALL #### [facility] (DEFAULT) [address] [address] Glucose [Mass/Vol] 188 mg/dL High Nonfastin g Glucose: 70-179 [facility] Comment on above: Performed By: #### G SVALL #### [facility] (DEFAULT) [address] [place] [address] HCO3 (Bld) [Moles/Vol] 22 mmol/L Normal 22-29 [facility] Comment on above: Performed By: #### G SVALL #### [facility] (DEFAULT) [address] [address] Hematocrit (Bld) [Volume fraction] 29 % Low 34-46 [facility] Comment on above: Performed By: #### G SVALL #### [facility] (DEFAULT) [address] [address] Hemoglobin (Bld) [Mass/Vol] 9.8 g/dL Low 11.4-15.2 [facility] Comment on above: Performed By: #### Leonel SVALL #### [facility] (DEFAULT) [address] [address] Ionized Calcium, Whole Blood 4.53 mg/dL Low 4.60-5.30 [facility] Comment on above: Performed By: #### Leonel SVALL #### [facility] (DEFAULT) [address] [address] Lactate, Whole Blood 1.9 mmol/L High 0.5-1.6 [facility] Comment on above: Performed By: #### Leonel SVALL #### [facility] (DEFAULT) [address] [address] Methemoglobin 0.0 % Normal <=1.5 [facility] Comment on above: Performed By: #### Leonel SVALL #### [facility] (DEFAULT) [address] [address] Oxygen saturation in Blood 53 % Low 70-80 [facility] Comment on above: Performed By: #### G SVALL #### [facility] (DEFAULT) [address] [address] Oxyhemoglobin 53 % Low 94-98 [facility] Comment on above: Performed By: #### Leonel SVALL #### [facility] (DEFAULT) [address] [address] pCO2, Venous 41 mm Hg Normal 36-52 [facility] Comment on above: Performed By: #### G SVALL #### [facility] (DEFAULT) [address] [address] pH, Venous 7.33 Normal 7.32-7.43 [facility] Comment on above: Performed By: #### G SVALL #### [facility] (DEFAULT) [address] [place] [address] pO2, Venous 35 mm Hg Normal [facility] Comment on above: Result Comment: Veno us pO2 is not recommended for the evaluation of oxygen status, clinical correlation is recommended. Performed By: #### G SVALL #### [facility] (DEFAULT) [address] [place] [address] Potassium [Moles/Vol] 4.3 mmol/L Normal 3.5-5.0 [facility] Comment on above: Performed By: #### G SVALL #### [facility] (DEFAULT) [address] [place] [address] Performed By: #### L DO, MGO, IPB, CHM7 #### [facility] (DEFAULT) [address] [address] Sodium [Moles/Vol] 132 mmol/L Low 135-145 [facility] Comment on above: Performed By: #### G SVALL #### [facility] (DEFAULT) [address] [address] Specimen type Nom (Spec) Venous Normal [facility] Comment on above: Performed By: #### G SVALL #### [facility] (DEFAULT) [address] [address] VITAMIN D (25-HYDROXY,TOTAL) on 04-08-2025 Interpretation and review of laboratory results Normal [facility] Vitamin D+Metabolites [Mass/Vol] 67.4 ng/mL 30.0 - 100.0 ng/mL [facility] 25-OH Vitamin D Total 67.4 ng/mL Normal 30.0-100.0 [facility] Comment on above: Order Comment: Vitam in D values have been shown to be falsely decreased in lipemic samples and should be interpreted with caution. Result Comment: <10 Deficiency 10-29 Insufficiency 30-100 Optimal Level >100 Possible Toxicity Performed By: #### X M #### [facility] (DEFAULT) [address] [place] [address] VON WILLEBRAND FACTOR AGon 0 04-08-2025 Von Willebrand Factor Antigen 333 % High 50-180 [facility] Comment on above: Order Comment: Speci men is hemolyzed, results may be adversely affected. Performed By: #### X M #### [facility] (DEFAULT) [address] [place] [address] White blood cell (WBC) count Ordered By: Shaun Camejo on 04-08-2025 WBC (Bld) [#/Vol] 4.0 10*3/uL Low 4.4-11.0 [facility] White blood cell countOrdere d By: Shaun Camejo on 04-08-2025 White blood cell count 5-10 SEEN /hpf 0-5 [facility] XR PELVIS 1-2 VIEWSon 2024 XR PELVIS 1-2 VIEWS EXAM: XR PELVIS 1-2 VIEWS, 04/08/2025 15:50 PM COMPARISON: No prior studies available for comparison. CLINICAL INDICATIONS: Trauma FINDINGS: 1 image obtained. Bone: Mineralization is decreased. No acute fracture. Severe degenerative disc disease and facet arthropathy in the visualized lower lumbar spine. SI Joint: The sacroiliac joints are anatomically aligned with osteoarthritic changes bilaterally. Hip: Both hips are anatomically aligned with osteoarthritis. IMPRESSION: No acute osseous abnormality. Normal [facility] XR Pelvis 2 Viewson 04-08-20 RADIOLOGY RADIOLOGY [facility] Radiology Study observation (narrative) [facility] XR Pelvis 2 ViewsOrdered By: Edson Lora on 04-08-2025 [facility] Work Phone: XR Shoulder - right 2 Viewso n 04-08-2025 Radiology Study observation (narrative) [facility] Bone density reportOrdered B y: Jones Adry on 04-07-2025 Study report Skeletal system DXA [facility] Imaging Services [address] [place] [address] Dexa Bone Density Study MR#: [id number] Acct: [id number] Name: ANAY SAMUELS Rep #: [id number] : 1945 F 79 From: Gurmeet Rider MD PCP: Dr. Jorge A Barclay MD Status: REG CL I Study:Dexa Bone Density Study Date of Exam: 04/07/25 Exam# [id number] Ordering Dr: Dina Barclay MD PROCEDURE: DEXA BONE DENSITY STUDY 04/07/2025 REASON FOR EXAM: F, age 79 y/o . Postmenopausal. TECHNIQUE: DEXA BONE DENSITY STUDY COMPARISON: Prior study dated December 26, 2018. FINDINGS: BMD and T-SCORES Lumbar spine: 0.985 g/cm2, T-score -0.4 Levels: L1 through L4 Change from prior: Loss of 8.8%. Left femoral neck: 0.585 g/cm2, T-score -2.4 Femoral neck comparison data not recommended for monitoring change. Left total hip: 0.718 g/cm2, T-score -1.8 Change from prior: Loss of 9.9%. Right femoral neck: 0.687 g/cm2, T-score -1.5 Femoral neck comparison data not recommended for monitoring change. Right total hip: 0.740 g/cm2, T-score -1.7 Change from prior: Loss of 13.6%. The World Health Organization has defined the following categories based on bonedensity: Normal bone density: T-score equal to or greater than -1.0 Osteopenia: T-score between -1.0 and -2.5 Osteoporosis: T-score equal to or less than -2.5 The patient does meet the pharmacological treatment recommendations for prevention of osteoporosis. BD/Dexa Bone Density Study IMPRESSION: OSTEOPENIA. Recommend follow-up as clinically warranted. Reading Location: [id number] CC: Dr. Jorge A Barclay MD ~ Fitter/Welder: Signed [facility] Dexa Bone Density Studyon Dexa Bone Density Study Normal [facility] Oncology Visit Reporton 03-16 Oncology Visit Report Normal [facility] CA 15-3on 04-03-2025 CA 15-3 19.8 U/mL Normal 0.0-25.0 [facility] Comment on above: Result Comment: [employer] Electrochemiluminescence Immunoassay(ECLIA)Values obtained with different assay methods or kits cannotbe used interchangeably. Results cannot be interpreted asabsolute evidence of the presence or absence of malignantdisease.Performed at: [place] [id number] Director: Trev Joy PhD, Phone: [phone] Performed By: #### L 3100.5030, L500.4050, L3100.5040, L504.2610, L100.0100 ####[facility] [address] [place], [place], [id number] CA 27.29on 04-03-2025 CA 27.29 20.8 U/mL Normal 0.0-38.6 [facility] Comment on above: Result Comment: [facility] 99.coaur Immunochemiluminometric Methodology (ICMA)Values obtained with different assay methods or kits cannotbe used interchangeably. Results cannot be interpreted asabsolute evidence of the presence or absence of malignantdisease. Performed By: #### L 3100.5030, L500.4050, L3100.5040, L504.2610, L100.0100 ####[facility] [address] [place], [place], [id number] Absolute lymphocyte countOrd ered By: Alex Love on 04-02-2025 Lymphocytes Auto (Unsp spec) [#/Vol] 1.19 10*3/uL 0.83-4.51 [facility] Absolute neutrophil countOrd ered By: Alex Love on 04-02-2025 Neutrophils (Bld) [#/Vol] 3.0 10*3/uL 2.0-7.7 [facility] Anion gap in Serum or Plasma Ordered By: Alex Love on 04-02-2025 Anion gap [Moles/Vol] 10 mmol/L 5-15 [facility] Automated lymphocyte count a s percentage of total leukocytesOrdered By: Alex Love on 04-02-2025 Lymphocytes/100 WBC Auto (Unsp spec) 25.8 % 19- [facility] BUN/creatinine ratioOrdered By: Alex Love on 04-02-2025 Urea nitrogen/Creatinine [Mass ratio] 20.3 mg/mg High 10- [facility] Basophil percentageOrdered B y: Alex Love on 04-02-2025 Basophils/100 WBC (Bld) 0.7 % 0-1 [facility] Bilirubin, totalOrdered By: Alex Love on 04-02-2025 Bilirubin [Mass/Vol] 0.59 mg/dL 0.00-1.30 [facility] CA 15-3Ordered By: Alex yoon on 04-02-2025 CA 15-3 19.8 U/mL 0.0-25.0 [facility] Comment on above: [employer] El ectrochemiluminescence Immunoassay(ECLIA)Values obtained with different assay methods or kits cannotbe used interchangeably. Results cannot be interpreted asabsolute evidence of the presence or absence of malignantdisease.Performed at: [address] [id number] Director: Trev Joy PhD, Phone: [phone] CA 27.29Ordered By: Alex germain on 04-02-2025 CA 27.29 20.8 U/mL 0.0-38.6 [facility] Comment on above: [employer] Immu nochemiluminometric Methodology (ICMA)Values obtained with different assay methods or kits cannotbe used interchangeably. Results cannot be interpreted asabsolute evidence of the presence or absence of malignantdisease. CBC W/Diff, Automatedon 03-15 Anisocytosis Ql (Bld) 2+ Normal [facility] Comment on above: Performed By: #### L 3100.5030, L500.4050, L3100.5040, L504.2610, L100.0100 ####[facility] [address] [place], [address] Carbon dioxide, total [Moles /volume] in Central venous bloodOrdered By: Alex Love on 04-02-2025 CO2 [Moles/Vol] 22.3 mmol/L 21.0-32.0 [facility] Chloride assayOrdered By: Mariana Love on 04-02-2025 Chloride [Moles/Vol] 106 mmol/L 98-108 [facility] Comprehensive Metabolic Prof ilon 04-02-2025 Albumin [Mass/Vol] 3.8 g/dL Normal 3.4-4.8 [facility] Comment on above: Performed By: #### L 3100.5030, L500.4050, L3100.5040, L504.2610, L100.0100 ####[facility] [address] [place], [address] Albumin/Globulin [Mass ratio] 1.8 {ratio} Normal 0.9-2.4 [facility] Comment on above: Performed By: #### L 3100.5030, L500.4050, L3100.5040, L504.2610, L100.0100 ####[facility] [address] [place], [address] ALK PHOS 32 U/L Low 35-104 [facility] Comment on above: Performed By: #### L 3100.5030, L500.4050, L3100.5040, L504.2610, L100.0100 ####[facility] [address] [place], [address] ALT [Catalytic activity/Vol] 13 U/L Normal <=34 [facility] Comment on above: Performed By: #### L 3100.5030, L500.4050, L3100.5040, L504.2610, L100.0100 ####[facility] [address] [place], [address] AST [Catalytic activity/Vol] 18 U/L Normal <=31 [facility] Comment on above: Performed By: #### L 3100.5030, L500.4050, L3100.5040, L504.2610, L100.0100 ####[facility] [address] [place], [address] Bilirubin [Mass/Vol] 0.59 mg/dL Normal 0.00-1.30 [facility] Comment on above: Performed By: #### L 3100.5030, L500.4050, L3100.5040, L504.2610, L100.0100 ####[facility] [address] [place], [address] BUN/CRE 20.3 RATIO High 10-20 [facility] Comment on above: Performed By: #### L 3100.5030, L500.4050, L3100.5040, L504.2610, L100.0100 ####[facility] [address] [place], [address] Calcium [Mass/Vol] 8.8 mg/dL Normal 7.6-11.0 [facility] Comment on above: Performed By: #### L 3100.5030, L500.4050, L3100.5040, L504.2610, L100.0100 ####[facility] [address] [place], [address] Chloride [Moles/Vol] 106 mmol/L Normal 98-108 [facility] Comment on above: Performed By: #### L 3100.5030, L500.4050, L3100.5040, L504.2610, L100.0100 ####[facility] [address] [place], [address] CO2 [Moles/Vol] 22.3 mmol/L Normal 21.0-32.0 [facility] Comment on above: Performed By: #### L 3100.5030, L500.4050, L3100.5040, L504.2610, L100.0100 ####[facility] [address] [place], [address] Creatinine [Mass/Vol] 0.92 mg/dL Normal 0.70-1.20 [facility] Comment on above: Performed By: #### L 3100.5030, L500.4050, L3100.5040, L504.2610, L100.0100 ####[facility] [address] [place], [address] ECRCL 44.62 ml/min Low 50-250 [facility] Comment on above: Performed By: #### L 3100.5030, L500.4050, L3100.5040, L504.2610, L100.0100 ####[facility] [address] [place], [address] GAP 10 Normal 5-15 [facility] Comment on above: Performed By: #### L 3100.5030, L500.4050, L3100.5040, L504.2610, L100.0100 ####[facility] [address] [place], [address] GFR/1.73 sq M.predicted among non-blacks MDRD (S/P/Bld) [Vol rate/Area] 62 mL/min/{1.73_m2} Normal >60 [facility] Comment on above: Result Comment: mL/m in/1.73m2 CKD-EPI Creatinine Equation (2020) Performed By: #### L 3100.5030, L500.4050, L3100.5040, L504.2610, L100.0100 ####[facility] [address] [place], [address] Globulin (S) [Mass/Vol] 2.1 g/dL Low 2.2-4.2 [facility] Comment on above: Performed By: #### L 3100.5030, L500.4050, L3100.5040, L504.2610, L100.0100 ####[facility] [address] [place], [address] Glucose [Mass/Vol] 101 mg/dL High 70-99 [facility] Comment on above: Performed By: #### L 3100.5030, L500.4050, L3100.5040, L504.2610, L100.0100 ####[facility] [address] [place], [address] Potassium [Moles/Vol] 4.3 mmol/L Normal 3.3-5.1 [facility] Comment on above: Performed By: #### L 3100.5030, L500.4050, L3100.5040, L504.2610, L100.0100 ####[facility] [address] [place], [address] Sodium [Moles/Vol] 138 mmol/L Normal 133-145 [facility] Comment on above: Performed By: #### L 3100.5030, L500.4050, L3100.5040, L504.2610, L100.0100 ####[facility] [address] [place], [address] T PROT 5.9 g/dL Normal 5.9-8.4 [facility] Comment on above: Performed By: #### L 3100.5030, L500.4050, L3100.5040, L504.2610, L100.0100 ####[facility] [address] [place], [address] Urea nitrogen [Mass/Vol] 19 mg/dL Normal 4-19 [facility] Comment on above: Performed By: #### L 3100.5030, L500.4050, L3100.5040, L504.2610, L100.0100 ####[facility] [address] [place], [address] Eosinophil percentageOrdered By: [facility] on 04-02-2025 Eosinophils/100 WBC (Bld) 1.5 % 0-5 [facility] Erythrocyte distribution wid th ratioOrdered By: [facility] on 04-02-2025 Erythrocyte distribution width (RBC) [Ratio] 17.7 % High 11.6-14.6 [facility] Erythrocyte distribution wid th standard deviationOrdered By: [facility] on 04-02-2025 Erythrocyte distribution width (RBC) [Ratio] 66.9 fl High 35.1-43.9 [facility] Glomerular filtration rate ( GFR) estimation/1.73 sq m using serum, plasma, or whole bOrdered By: Alex Ivan on 04-02-2025 GFR/1.73 sq M.predicted among non-blacks MDRD (S/P/Bld) [Vol rate/Area] 62 mL/min/{1.73_m2} >60 [facility] Comment on above: mL/min/1.73m2 CKD-EP I Creatinine Equation (2020) Hematocrit Auto (Bld) [Volum e fraction]Ordered By: Alex Love on 04-02-2025 Hematocrit (Bld) [Volume fraction] 31.2 % Low 37-47 [facility] Hemoglobin measurementOrdere d By: Alex Love on 04-02-2025 Hemoglobin (Bld) [Mass/Vol] 10.7 g/dL Low 12.0-15.0 [facility] Immature granulocytes/100 WB C Auto (Bld)Ordered By: Alex Love on 04-02-2025 Immature granulocytes/100 WBC (Bld) 0.700 % 0.0-0.9 [facility] Comment on above: IG% - Immature Granu locytes (promyelocytes, myelocytes and metamyelocytes) > 1% indicates that a LEFT SHIFT is Present. LDHon 04-02-2025 LDH 245 U/L Normal 84-246 [facility] Comment on above: Order Comment: 1 Performed By: #### L 3100.5030, L500.4050, L3100.5040, L504.2610, L100.0100 ####[facility] [address] [place], [address] Laboratory - Chemistry and C hemistry - challengeOrdered By: Alex Love on 04-02-2025 AST [Catalytic activity/Vol] 18 U/L <32 [facility] Laboratory - Hematology and Cell countsOrdered By: Alex Love on 04-02-2025 Anisocytosis Ql (Bld) 2+ [facility] Lactate dehydrogenase (LDH) measurementOrdered By: Alex Love on 04-02-2025 LDH [Catalytic activity/Vol] 245 U/L 84-246 [facility] MCV (mean corpuscular volume ) determinationOrdered By: Alex Love on 04-02-2025 MCV (RBC) [Entitic vol] 104.7 fL High 81-99 [facility] Mean corpuscular hemoglobin (MCH) determinationOrdered By: Alex Love on 04-02-2025 MCH (RBC) [Entitic mass] 35.9 pg High 27.0-32.0 [facility] Mean corpuscular hemoglobin concentration (MCHC) determinationOrdered By: Alex Love on 04-02-2025 MCHC (RBC) [Mass/Vol] 34.3 g/dL 32-36 [facility] Mean platelet volume determi nationOrdered By: Alex Love on 04-02-2025 Platelet mean volume (Bld) [Entitic vol] 8.8 fL 6.2-12.0 [facility] Monocyte percentageOrdered B y: Alex Love on 04-02-2025 Monocytes/100 WBC (Bld) 7.4 % 0-10 [facility] Neutrophil percentageOrdered By: Alex Love on 04-02-2025 Neutrophils/100 WBC (Bld) 63.9 % 47-70 [facility] Nucleated red blood cell per centageOrdered By: Alex Love on 04-02-2025 Nucleated RBC/100 WBC (Bld) [Ratio] 0 % 0-5 [facility] Platelet countOrdered By: Mariana Love on 04-02-2025 Platelets (Bld) [#/Vol] 151 10*3/uL 150-450 [facility] Potassium measurement (mass/ volume)Ordered By: Alex Love on 04-02-2025 Potassium (Unsp spec) [Mass/Vol] 4.3 mmol/L 3.3-5.1 [facility] RBC Auto (Bld) [#/Vol]Ordere d By: Alex Love on 04-02-2025 RBC (Bld) [#/Vol] 2.98 10*6/uL Low 4.2-5.4 [facility] Serum creatinine measurement (mass/volume)Ordered By: Alex Love on 04-02-2025 Creatinine [Mass/Vol] 0.92 mg/dL 0.70-1.20 [facility] Serum globulin measurementOr dered By: Alex Love on 04-02-2025 Globulin (S) [Mass/Vol] 2.1 g/dL Low 2.2-4.2 [facility] Serum glucose measurement (m ass/volume)Ordered By: Alex Love on 04-02-2025 Glucose [Mass/Vol] 101 mg/dL High 70-99 [facility] Serum or plasma alanine eastman otransferase (ALT) measurementOrdered By: Alex Love on 04-02-2025 ALT [Catalytic activity/Vol] 13 U/L <35 [facility] Serum or plasma albumin brandan urement (mass/volume)Ordered By: Alex Love on 04-02-2025 Albumin [Mass/Vol] 3.8 g/dL 3.4-4.8 [facility] Serum or plasma albumin/glob ulin mass ratioOrdered By: Alex Love on 04-02-2025 Albumin/Globulin [Mass ratio] 1.8 {ratio} 0.9-2.4 [facility] Serum or plasma alkaline katalina sphatase measurementOrdered By: Alex Love on 04-02-2025 ALP [Catalytic activity/Vol] 32 U/L Low 35-104 [facility] Serum or plasma calcium brandan urement (mass/volume)Ordered By: Alex Love on 04-02-2025 Calcium [Mass/Vol] 8.8 mg/dL 7.6-11.0 [facility] Serum or plasma urea nitroge n measurement (mass/volume)Ordered By: Alex Ivan on 04-02-2025 Urea nitrogen [Mass/Vol] 19 mg/dL 4-19 [facility] Sodium levelOrdered By: Jim connelly Nonagretchen on 04-02-2025 Sodium [Moles/Vol] 138 mmol/L 133-145 [facility] Total proteinOrdered By: Torito oro Ivan on 04-02-2025 Protein [Mass/Vol] 5.9 g/dL 5.9-8.4 [facility] White blood cell (WBC) count Ordered By: Alex Ivan on 04-02-2025 WBC (Bld) [#/Vol] 4.6 10*3/uL 4.4-11.0 [facility] Oncology Visit Reporton 02-13 Oncology Visit Report Normal [facility] CA 15-3on 03-07-2025 CA 15-3 25.1 U/mL Abnormal 0.0-25.0 [facility] Comment on above: Result Comment: [employer] Electrochemiluminescence Immunoassay(ECLIA)Values obtained with different assay methods or kits cannotbe used interchangeably. Results cannot be interpreted asabsolute evidence of the presence or absence of malignantdisease.Performed at: [facility] [place] [id number] Director: Trev Joy PhD, Phone: [phone] Performed By: #### L 100.0100, L3100.5030, L500.4050, L3100.5040, L504.2610 ####[facility] [address] [place], [place], [id number] CA 27.29on 03-07-2025 CA 27.29 27.4 U/mL Normal 0.0-38.6 [facility] Comment on above: Result Comment: [employer] Immunochemiluminometric Methodology (ICMA)Values obtained with different assay methods or kits cannotbe used interchangeably. Results cannot be interpreted asabsolute evidence of the presence or absence of malignantdisease. Performed By: #### L 100.0100, L3100.5030, L500.4050, L3100.5040, L504.2610 ####[facility] [address] [place], [address] Absolute lymphocyte countOrd ered By: Alex Love on 03-05-2025 Lymphocytes Auto (Unsp spec) [#/Vol] 1.60 10*3/uL 0.83-4.51 [facility] Center Absolute neutrophil countOrd ered By: Alex Love on 03-05-2025 Neutrophils (Bld) [#/Vol] 3.8 10*3/uL 2.0-7.7 [facility] Anion gap in Serum or Plasma Ordered By: Alex Love on 03-05-2025 Anion gap [Moles/Vol] 10 mmol/L 5-15 [facility] Automated lymphocyte count a s percentage of total leukocytesOrdered By: Alex Love on 03-05-2025 Lymphocytes/100 WBC Auto (Unsp spec) 26.9 % 19-41 [facility] BUN/creatinine ratioOrdered By: Alex Love on 03-05-2025 Urea nitrogen/Creatinine [Mass ratio] 19.9 mg/mg 10-20 [facility] Basophil percentageOrdered B y: Alex Love on 03-05-2025 Basophils/100 WBC (Bld) 0.7 % 0-1 [facility] Bilirubin, totalOrdered By: Alex Love on 03-05-2025 Bilirubin [Mass/Vol] 0.58 mg/dL 0.00-1.30 [facility] CA 15-3Ordered By: Alex yoon on 03-05-2025 CA 15-3 25.1 U/mL High 0.0-25.0 [facility] Comment on above: [employer] El ectrochemiluminescence Immunoassay(ECLIA)Values obtained with different assay methods or kits cannotbe used interchangeably. Results cannot be interpreted asabsolute evidence of the presence or absence of malignantdisease.Performed at: [facility] [address] [id number] Director: Trev Joy PhD, Phone: [phone] CA 27.29Ordered By: Alex germain on 03-05-2025 CA 27.29 27.4 U/mL 0.0-38.6 [facility] Comment on above: [employer] Immu nochemiluminometric Methodology (ICMA)Values obtained with different assay methods or kits cannotbe used interchangeably. Results cannot be interpreted asabsolute evidence of the presence or absence of malignantdisease. CBC W/Diff, Automatedon 05- Absolute Lymph 1.60 X10 3/uL Normal 0.83-4.51 [facility] Comment on above: Performed By: #### L 100.0100, L3100.5030, L500.4050, L3100.5040, L504.2610 ####[facility] [address] [place], [address] Absolute Neut 3.8 X10 3/uL Normal 2.0-7.7 [facility] Comment on above: Performed By: #### L 100.0100, L3100.5030, L500.4050, L3100.5040, L504.2610 ####[facility] [address] [place], [address] Basophils/100 WBC (Bld) 0.7 % Normal 0-1 [facility] Comment on above: Performed By: #### L 100.0100, L3100.5030, L500.4050, L3100.5040, L504.2610 ####[facility] [address] [place], [address] Eosinophils/100 WBC (Bld) 1.0 % Normal 0-5 [facility] Comment on above: Performed By: #### L 100.0100, L3100.5030, L500.4050, L3100.5040, L504.2610 ####[facility] [address] [place], [address] Erythrocyte distribution width (RBC) [Ratio] 15.2 % High 11.6-14.6 [facility] Comment on above: Performed By: #### L 100.0100, L3100.5030, L500.4050, L3100.5040, L504.2610 ####[facility] [address] [place], [address] Hematocrit (Bld) [Volume fraction] 33.9 % Low 37-47 [facility] Comment on above: Performed By: #### L 100.0100, L3100.5030, L500.4050, L3100.5040, L504.2610 ####[facility] [address] [place], [address] Hemoglobin (Bld) [Mass/Vol] 11.3 g/dL Low 12.0-15.0 [facility] Comment on above: Performed By: #### L 100.0100, L3100.5030, L500.4050, L3100.5040, L504.2610 ####[facility] [address] [place], [address] IG% 0.500 Normal 0.0-0.9 [facility] Comment on above: Result Comment: IG% - Immature Granulocytes (promyelocytes, myelocytes andmetamyelocytes) > 1% indicates that a LEFT SHIFT is Present. Performed By: #### L 100.0100, L3100.5030, L500.4050, L3100.5040, L504.2610 ####[facility] [address] [place], [address] Lymphocytes/100 WBC (Bld) 26.9 % Normal 19-41 [facility] Comment on above: Performed By: #### L 100.0100, L3100.5030, L500.4050, L3100.5040, L504.2610 ####[facility] [address] [place], [address] MCH (RBC) [Entitic mass] 34.0 pg High 27.0-32.0 [facility] Comment on above: Performed By: #### L 100.0100, L3100.5030, L500.4050, L3100.5040, L504.2610 ####[facility] [address] [place], [address] MCHC (RBC) [Mass/Vol] 33.3 g/dL Normal 32-36 [facility] Comment on above: Performed By: #### L 100.0100, L3100.5030, L500.4050, L3100.5040, L504.2610 ####[facility] [address] [place], [address] MCV (RBC) [Entitic vol] 102.1 fL High 81-99 [facility] Comment on above: Performed By: #### L 100.0100, L3100.5030, L500.4050, L3100.5040, L504.2610 ####[facility] [address] [place], [address] Monocytes/100 WBC (Bld) 7.6 % Normal 0-10 [facility] Comment on above: Performed By: #### L 100.0100, L3100.5030, L500.4050, L3100.5040, L504.2610 ####[facility] [address] [place], [address] Neutrophils/100 WBC (Bld) 63.3 % Normal 47-70 [facility] Comment on above: Performed By: #### L 100.0100, L3100.5030, L500.4050, L3100.5040, L504.2610 ####[facility] [address] [place], [address] Nucleated RBC (Bld) [#/Vol] 0 10*3/uL Normal 0-5 [facility] Comment on above: Performed By: #### L 100.0100, L3100.5030, L500.4050, L3100.5040, L504.2610 ####[facility] [address] [place], [address] Platelet mean volume (Bld) [Entitic vol] 8.8 fL Normal 6.2-12.0 [facility] Comment on above: Performed By: #### L 100.0100, L3100.5030, L500.4050, L3100.5040, L504.2610 ####[facility] [address] [place], [address] Platelets (Bld) [#/Vol] 160 10*3/uL Normal 150-450 [facility] Comment on above: Performed By: #### L 100.0100, L3100.5030, L500.4050, L3100.5040, L504.2610 ####[facility] [address] [place], [address] RBC (Bld) [#/Vol] 3.32 10*6/uL Low 4.2-5.4 [facility] Comment on above: Performed By: #### L 100.0100, L3100.5030, L500.4050, L3100.5040, L504.2610 ####[facility] [address] [place], [address] RDW SD 55.8 fl High 35.1-43.9 [facility] Comment on above: Performed By: #### L 100.0100, L3100.5030, L500.4050, L3100.5040, L504.2610 ####[facility] [address] [place], [address] WBC (Bld) [#/Vol] 6.0 10*3/uL Normal 4.4-11.0 [facility] Comment on above: Performed By: #### L 100.0100, L3100.5030, L500.4050, L3100.5040, L504.2610 ####[facility] [address] [place], [address] Carbon dioxide, total [Moles /volume] in Central venous bloodOrdered By: Alex Love on 03-05-2025 CO2 [Moles/Vol] 22.5 mmol/L 21.0-32.0 [facility] Chloride assayOrdered By: Mariana Love on 03-05-2025 Chloride [Moles/Vol] 105 mmol/L 98-108 [facility] Comprehensive Metabolic Prof ilon 03-05-2025 Albumin [Mass/Vol] 3.8 g/dL Normal 3.4-4.8 [facility] Comment on above: Performed By: #### L 100.0100, L3100.5030, L500.4050, L3100.5040, L504.2610 ####[facility] [address] [place], [address] Albumin/Globulin [Mass ratio] 1.7 {ratio} Normal 0.9-2.4 [facility] Comment on above: Performed By: #### L 100.0100, L3100.5030, L500.4050, L3100.5040, L504.2610 ####[facility] [address] [place], [address] ALK PHOS 29 U/L Low 35-104 [facility] Comment on above: Performed By: #### L 100.0100, L3100.5030, L500.4050, L3100.5040, L504.2610 ####[facility] [address] [place], [address] ALT [Catalytic activity/Vol] 14 U/L Normal <=34 [facility] Comment on above: Performed By: #### L 100.0100, L3100.5030, L500.4050, L3100.5040, L504.2610 ####[facility] [address] [place], [address] AST [Catalytic activity/Vol] 19 U/L Normal <=31 [facility] Comment on above: Performed By: #### L 100.0100, L3100.5030, L500.4050, L3100.5040, L504.2610 ####[facility] [address] [place], [address] Bilirubin [Mass/Vol] 0.58 mg/dL Normal 0.00-1.30 [facility] Comment on above: Performed By: #### L 100.0100, L3100.5030, L500.4050, L3100.5040, L504.2610 ####[facility] [address] [place], [address] BUN/CRE 19.9 RATIO Normal 10-20 [facility] Comment on above: Performed By: #### L 100.0100, L3100.5030, L500.4050, L3100.5040, L504.2610 ####[facility] [address] [place], [address] Calcium [Mass/Vol] 8.7 mg/dL Normal 7.6-11.0 [facility] Comment on above: Performed By: #### L 100.0100, L3100.5030, L500.4050, L3100.5040, L504.2610 ####[facility] [address] [place], [address] Chloride [Moles/Vol] 105 mmol/L Normal 98-108 [facility] Comment on above: Performed By: #### L 100.0100, L3100.5030, L500.4050, L3100.5040, L504.2610 ####[facility] [address] [place], [address] CO2 [Moles/Vol] 22.5 mmol/L Normal 21.0-32.0 [facility] Comment on above: Performed By: #### L 100.0100, L3100.5030, L500.4050, L3100.5040, L504.2610 ####[facility] [address] [place], [address] Creatinine [Mass/Vol] 0.98 mg/dL Normal 0.70-1.20 [facility] Comment on above: Performed By: #### L 100.0100, L3100.5030, L500.4050, L3100.5040, L504.2610 ####[facility] [address] [place], [address] ECRCL 42.62 ml/min Low 50-250 [facility] Comment on above: Performed By: #### L 100.0100, L3100.5030, L500.4050, L3100.5040, L504.2610 ####[facility] [address] [place], [address] GAP 10 Normal 5-15 [facility] Comment on above: Performed By: #### L 100.0100, L3100.5030, L500.4050, L3100.5040, L504.2610 ####[facility] [address] [place], [address] GFR/1.73 sq M.predicted among non-blacks MDRD (S/P/Bld) [Vol rate/Area] 58 mL/min/{1.73_m2} Low >60 [facility] Comment on above: Result Comment: mL/m in/1.73m2 CKD-EPI Creatinine Equation (2020) Performed By: #### L 100.0100, L3100.5030, L500.4050, L3100.5040, L504.2610 ####[facility] [address] [place], [address] Globulin (S) [Mass/Vol] 2.3 g/dL Normal 2.2-4.2 [facility] Comment on above: Performed By: #### L 100.0100, L3100.5030, L500.4050, L3100.5040, L504.2610 ####[facility] [address] [place], [address] Glucose [Mass/Vol] 95 mg/dL Normal 70-99 [facility] Comment on above: Performed By: #### L 100.0100, L3100.5030, L500.4050, L3100.5040, L504.2610 ####[facility] [address] [place], [address] Potassium [Moles/Vol] 4.2 mmol/L Normal 3.3-5.1 [facility] Comment on above: Performed By: #### L 100.0100, L3100.5030, L500.4050, L3100.5040, L504.2610 ####[facility] [address] [place], [address] Sodium [Moles/Vol] 137 mmol/L Normal 133-145 [facility] Comment on above: Performed By: #### L 100.0100, L3100.5030, L500.4050, L3100.5040, L504.2610 ####[facility] [address] [place], [address] T PROT 6.1 g/dL Normal 5.9-8.4 [facility] Comment on above: Performed By: #### L 100.0100, L3100.5030, L500.4050, L3100.5040, L504.2610 ####[facility] [address] [place], [address] Urea nitrogen [Mass/Vol] 20 mg/dL High 4-19 [facility] Comment on above: Performed By: #### L 100.0100, L3100.5030, L500.4050, L3100.5040, L504.2610 ####[facility] [address] [place], [address] Eosinophil percentageOrdered By: Alex Love on 03-05-2025 Eosinophils/100 WBC (Bld) 1.0 % 0-5 [facility] Erythrocyte distribution wid th ratioOrdered By: [facility] on 03-05-2025 Erythrocyte distribution width (RBC) [Ratio] 15.2 % High 11.6-14.6 [facility] Erythrocyte distribution wid th standard deviationOrdered By: [facility] on 03-05-2025 Erythrocyte distribution width (RBC) [Ratio] 55.8 fl High 35.1-43.9 [facility] Glomerular filtration rate ( GFR) estimation/1.73 sq m using serum, plasma, or whole bOrdered By: [facility] on 03-05-2025 GFR/1.73 sq M.predicted among non-blacks MDRD (S/P/Bld) [Vol rate/Area] 58 mL/min/{1.73_m2} Low >60 [facility] Comment on above: mL/min/1.73m2 CKD-EP I Creatinine Equation (2020) Hematocrit Auto (Bld) [Volum e fraction]Ordered By: [facility] on 03-05-2025 Hematocrit (Bld) [Volume fraction] 33.9 % Low 37-47 [facility] Hemoglobin measurementOrdere d By: [facility] on 03-05-2025 Hemoglobin (Bld) [Mass/Vol] 11.3 g/dL Low 12.0-15.0 [facility] Immature granulocytes/100 WB C Auto (Bld)Ordered By: [facility] on 03-05-2025 Immature granulocytes/100 WBC (Bld) 0.500 % 0.0-0.9 [facility] Comment on above: IG% - Immature Granu locytes (promyelocytes, myelocytes and metamyelocytes) > 1% indicates that a LEFT SHIFT is Present. LDHon 03-05-2025 LDH 235 U/L Normal 84-246 [facility] Comment on above: Order Comment: 1 Performed By: #### L 100.0100, L3100.5030, L500.4050, L3100.5040, L504.2610 ####[facility] [address] [place], [place], [id number] Laboratory - Chemistry and C hemistry - challengeOrdered By: [facility] on 03-05-2025 AST [Catalytic activity/Vol] 19 U/L <32 [facility] Lactate dehydrogenase (LDH) measurementOrdered By: Alex Love on 03-05-2025 LDH [Catalytic activity/Vol] 235 U/L 84-246 [facility] MCV (mean corpuscular volume ) determinationOrdered By: Alex Love on 03-05-2025 MCV (RBC) [Entitic vol] 102.1 fL High 81-99 [facility] Mean corpuscular hemoglobin (MCH) determinationOrdered By: Alex Love on 03-05-2025 MCH (RBC) [Entitic mass] 34.0 pg High 27.0-32.0 [facility] Mean corpuscular hemoglobin concentration (MCHC) determinationOrdered By: Alex Love on 03-05-2025 MCHC (RBC) [Mass/Vol] 33.3 g/dL 32-36 [facility] Mean platelet volume determi nationOrdered By: Alex Love on 03-05-2025 Platelet mean volume (Bld) [Entitic vol] 8.8 fL 6.2-12.0 [facility] Monocyte percentageOrdered B y: Alex Love on 03-05-2025 Monocytes/100 WBC (Bld) 7.6 % 0-10 [facility] Neutrophil percentageOrdered By: Alex Love on 03-05-2025 Neutrophils/100 WBC (Bld) 63.3 % 47-70 [facility] Nucleated red blood cell per centageOrdered By: Alex Love on 03-05-2025 Nucleated RBC/100 WBC (Bld) [Ratio] 0 % 0-5 [facility] Platelet countOrdered By: Mariana Love on 03-05-2025 Platelets (Bld) [#/Vol] 160 10*3/uL 150-450 [facility] Potassium measurement (mass/ volume)Ordered By: Alex Love on 03-05-2025 Potassium (Unsp spec) [Mass/Vol] 4.2 mmol/L 3.3-5.1 [facility] RBC Auto (Bld) [#/Vol]Ordere d By: Alex Love on 03-05-2025 RBC (Bld) [#/Vol] 3.32 10*6/uL Low 4.2-5.4 [facility] Serum creatinine measurement (mass/volume)Ordered By: Alex Love on 03-05-2025 Creatinine [Mass/Vol] 0.98 mg/dL 0.70-1.20 [facility] Serum globulin measurementOr dered By: Alex Love on 03-05-2025 Globulin (S) [Mass/Vol] 2.3 g/dL 2.2-4.2 [facility] Serum glucose measurement (m ass/volume)Ordered By: Alex Love on 03-05-2025 Glucose [Mass/Vol] 95 mg/dL 70-99 [facility] Serum or plasma alanine eastman otransferase (ALT) measurementOrdered By: Alex Love on 03-05-2025 ALT [Catalytic activity/Vol] 14 U/L <35 [facility] Serum or plasma albumin brandan urement (mass/volume)Ordered By: Alex Love on 03-05-2025 Albumin [Mass/Vol] 3.8 g/dL 3.4-4.8 [facility] Serum or plasma albumin/glob ulin mass ratioOrdered By: Alex Love on 03-05-2025 Albumin/Globulin [Mass ratio] 1.7 {ratio} 0.9-2.4 [facility] Serum or plasma alkaline katalina sphatase measurementOrdered By: Alex Love on 03-05-2025 ALP [Catalytic activity/Vol] 29 U/L Low 35-104 [facility] Serum or plasma calcium brandan urement (mass/volume)Ordered By: Alex Love on 03-05-2025 Calcium [Mass/Vol] 8.7 mg/dL 7.6-11.0 [facility] Serum or plasma urea nitroge n measurement (mass/volume)Ordered By: Alex Love on 03-05-2025 Urea nitrogen [Mass/Vol] 20 mg/dL High 4-19 [facility] Sodium levelOrdered By: Jim Love on 03-05-2025 Sodium [Moles/Vol] 137 mmol/L 133-145 [facility] Total proteinOrdered By: Torito Love on 03-05-2025 Protein [Mass/Vol] 6.1 g/dL 5.9-8.4 [facility] White blood cell (WBC) count Ordered By: Alex Love on 03-05-2025 WBC (Bld) [#/Vol] 6.0 10*3/uL 4.4-11.0 [facility] CBC W/Diff, Automatedon 04-2 Absolute Lymph 1.62 X10 3/uL Normal 0.83-4.51 [facility] Comment on above: Performed By: #### L 504.2610, L100.0100, L500.4050 ####[facility] [address] [place], [address] Absolute Neut 4.4 X10 3/uL Normal 2.0-7.7 [facility] Comment on above: Performed By: #### L 504.2610, L100.0100, L500.4050 ####[facility] [address] [place], [address] Basophils/100 WBC (Bld) 0.6 % Normal 0-1 [facility] Comment on above: Performed By: #### L 504.2610, L100.0100, L500.4050 ####[facility] [address] [place], [address] Eosinophils/100 WBC (Bld) 0.9 % Normal 0-5 [facility] Comment on above: Performed By: #### L 504.2610, L100.0100, L500.4050 ####[facility] [address] [place], [address] Erythrocyte distribution width (RBC) [Ratio] 13.5 % Normal 11.6-14.6 [facility] Comment on above: Performed By: #### L 504.2610, L100.0100, L500.4050 ####[facility] [address] [place], [address] Hematocrit (Bld) [Volume fraction] 34.1 % Low 37-47 [facility] Comment on above: Performed By: #### L 504.2610, L100.0100, L500.4050 ####[facility] [address] [place], [address] Hemoglobin (Bld) [Mass/Vol] 11.4 g/dL Low 12.0-15.0 [facility] Comment on above: Performed By: #### L 504.2610, L100.0100, L500.4050 ####[facility] [address] [place], [address] IG% 0.300 Normal 0.0-0.9 [facility] Comment on above: Result Comment: IG% - Immature Granulocytes (promyelocytes, myelocytes andmetamyelocytes) > 1% indicates that a LEFT SHIFT is Present. Performed By: #### L 504.2610, L100.0100, L500.4050 ####[facility] [address] [place], [address] Lymphocytes/100 WBC (Bld) 25.2 % Normal 19-41 [facility] Comment on above: Performed By: #### L 504.2610, L100.0100, L500.4050 ####[facility] [address] [place], [address] MCH (RBC) [Entitic mass] 33.5 pg High 27.0-32.0 [facility] Comment on above: Performed By: #### L 504.2610, L100.0100, L500.4050 ####[facility] [address] [place], [address] MCHC (RBC) [Mass/Vol] 33.4 g/dL Normal 32-36 [facility] Comment on above: Performed By: #### L 504.2610, L100.0100, L500.4050 ####[facility] [address] [place], [address] MCV (RBC) [Entitic vol] 100.3 fL High 81-99 [facility] Comment on above: Performed By: #### L 504.2610, L100.0100, L500.4050 ####[facility] [address] [place], [address] Monocytes/100 WBC (Bld) 4.7 % Normal 0-10 [facility] Comment on above: Performed By: #### L 504.2610, L100.0100, L500.4050 ####[facility] [address] [place], [address] Neutrophils/100 WBC (Bld) 68.3 % Normal 47-70 [facility] Comment on above: Performed By: #### L 504.2610, L100.0100, L500.4050 ####[facility] [address] [place], [address] Nucleated RBC (Bld) [#/Vol] 0 10*3/uL Normal 0-5 [facility] Comment on above: Performed By: #### L 504.2610, L100.0100, L500.4050 ####[facility] [address] [place], [address] Platelet mean volume (Bld) [Entitic vol] 8.3 fL Normal 6.2-12.0 [facility] Comment on above: Performed By: #### L 504.2610, L100.0100, L500.4050 ####[facility] [address] [place], [address] Platelets (Bld) [#/Vol] 154 10*3/uL Normal 150-450 [facility] Comment on above: Performed By: #### L 504.2610, L100.0100, L500.4050 ####[facility] [address] [place], [address] RBC (Bld) [#/Vol] 3.40 10*6/uL Low 4.2-5.4 [facility] Comment on above: Performed By: #### L 504.2610, L100.0100, L500.4050 ####[facility] [address] [place], [address] RDW SD 47.7 fl High 35.1-43.9 [facility] Comment on above: Performed By: #### L 504.2610, L100.0100, L500.4050 ####[facility] [address] [place], [address] WBC (Bld) [#/Vol] 6.4 10*3/uL Normal 4.4-11.0 [facility] Comment on above: Performed By: #### L 504.2610, L100.0100, L500.4050 ####[facility] [address] [place], [address] Comprehensive Metabolic Prof [facility] 02-09-2025 Albumin [Mass/Vol] 3.8 g/dL Normal 3.4-4.8 [facility] Comment on above: Performed By: #### L 504.2610, L100.0100, L500.4050 ####[facility] [address] [place], [address] Albumin/Globulin [Mass ratio] 1.7 {ratio} Normal 0.9-2.4 [facility] [facility] Comment on above: Performed By: #### L 504.2610, L100.0100, L500.4050 ####[facility] [address] [place], [address] ALK PHOS 29 U/L Low 35-104 [facility] Comment on above: Performed By: #### L 504.2610, L100.0100, L500.4050 ####[facility] [address] [place], [address] ALT [Catalytic activity/Vol] 10 U/L Normal <=34 [facility] Comment on above: Performed By: #### L 504.2610, L100.0100, L500.4050 ####[facility] [address] [place], [address] AST [Catalytic activity/Vol] 17 U/L Normal <=31 [facility] Comment on above: Performed By: #### L 504.2610, L100.0100, L500.4050 ####[facility] [address] [place], [address] Bilirubin [Mass/Vol] 0.46 mg/dL Normal 0.00-1.30 [facility] Comment on above: Performed By: #### L 504.2610, L100.0100, L500.4050 ####[facility] [address] [place], [address] BUN/CRE 21.5 RATIO High 10-20 [facility] Comment on above: Performed By: #### L 504.2610, L100.0100, L500.4050 ####[facility] [address] [place], [address] Calcium [Mass/Vol] 8.9 mg/dL Normal 7.6-11.0 [facility] Comment on above: Performed By: #### L 504.2610, L100.0100, L500.4050 ####[facility] [address] [place], [address] Chloride [Moles/Vol] 105 mmol/L Normal 98-108 [facility] Comment on above: Performed By: #### L 504.2610, L100.0100, L500.4050 ####[facility] [address] [place], [address] CO2 [Moles/Vol] 22.4 mmol/L Normal 21.0-32.0 [facility] Comment on above: Performed By: #### L 504.2610, L100.0100, L500.4050 ####[facility] [address] [place], [address] Creatinine [Mass/Vol] 0.85 mg/dL Normal 0.70-1.20 [facility] Comment on above: Performed By: #### L 504.2610, L100.0100, L500.4050 ####[facility] [address] [place], [address] ECRCL 49.28 ml/min Low 50-250 [facility] Comment on above: Performed By: #### L 504.2610, L100.0100, L500.4050 ####[facility] [address] [place], [address] GAP 9 Normal 5-15 [facility] Comment on above: Performed By: #### L 504.2610, L100.0100, L500.4050 ####[facility] [address] [place], [address] GFR/1.73 sq M.predicted among non-blacks MDRD (S/P/Bld) [Vol rate/Area] 69 mL/min/{1.73_m2} Normal >60 [facility] Comment on above: Result Comment: mL/m in/1.73m2 CKD-EPI Creatinine Equation (2020) Performed By: #### L 504.2610, L100.0100, L500.4050 ####[facility] [address] [place], [address] Globulin (S) [Mass/Vol] 2.2 g/dL Normal 2.2-4.2 [facility] Comment on above: Performed By: #### L 504.2610, L100.0100, L500.4050 ####[facility] [address] [place], [address] Glucose [Mass/Vol] 122 mg/dL High 70-99 [facility] Comment on above: Performed By: #### L 504.2610, L100.0100, L500.4050 ####[facility] [address] [place], [address] Potassium [Moles/Vol] 4.2 mmol/L Normal 3.3-5.1 [facility] Comment on above: Performed By: #### L 504.2610, L100.0100, L500.4050 ####[facility] [address] [place], [address] Sodium [Moles/Vol] 137 mmol/L Normal 133-145 [facility] Comment on above: Performed By: #### L 504.2610, L100.0100, L500.4050 ####[facility] [address] [place], [address] T PROT 6.0 g/dL Normal 5.9-8.4 [facility] Comment on above: Performed By: #### L 504.2610, L100.0100, L500.4050 ####[facility] [address] [place], [address] Urea nitrogen [Mass/Vol] 18 mg/dL Normal 4-19 [facility] Comment on above: Performed By: #### L 504.2610, L100.0100, L500.4050 ####[facility] [address] [place], [address] LDHon 02-09-2025 LDH 238 U/L Normal 84-246 [facility] Comment on above: Order Comment: 1 Performed By: #### L 504.2610, L100.0100, L500.4050 ####[facility] [address] [place], [address] Oncology Visit Reporton -2 Oncology Visit Report Normal [facility] Oncology Visit Reporton 12-13 Oncology Visit Report Normal [facility] Oncology Visit Reporton 12-13 Oncology Visit Report Normal [facility] CA 15-3on 12-18-2024 CA 15-3 34.6 U/mL Abnormal 0.0-25.0 [facility] Comment on above: Order Comment: REDRA W FROM 12/10/2024 THAT DID NOT GET SENT TO [employer] [facility] Result Comment: [employer] Electrochemiluminescence Immunoassay(ECLIA)Values obtained with different assay methods or kits cannotbe used interchangeably. Results cannot be interpreted asabsolute evidence of the presence or absence of malignantdisease.Performed at: [facility] [address] [id number] Director: Trev Joy PhD, Phone: [phone] Performed By: #### L 3100.5000, L3100.2300, L3100.5040, L3100.5030 ####[facility] [address] [place], [address] CA 27.29on 12-18-2024 CA 27.29 38.5 U/mL Normal 0.0-38.6 [facility] Comment on above: Order Comment: REDRA W FROM 12/10/2024 THAT DID NOT GET SENT TO [employer] [facility] Result Comment: [employer] Immunochemiluminometric Methodology (ICMA)Values obtained with different assay methods or kits cannotbe used interchangeably. Results cannot be interpreted asabsolute evidence of the presence or absence of malignantdisease. Performed By: #### L 3100.5000, L3100.2300, L3100.5040, L3100.5030 ####[facility] [address] [place], [address] Cancer Antigen 125on 025 CA 125 33.0 U/mL Normal 0.0-38.1 [facility] Comment on above: Order Comment: REDRA W FROM 12/10/2024 THAT DID NOT GET SENT TO [employer] [facility] Result Comment: [employer] Electrochemiluminescence Immunoassay(ECLIA)Values obtained with different assay methods or kits cannotbe used interchangeably. Results cannot be interpreted asabsolute evidence of the presence or absence of malignantdisease. Performed By: #### L 3100.5000, L3100.2300, L3100.5040, L3100.5030 ####[facility] [address] [place], [address] Carcinoembryonic Antigenon 0 12-18-2024 CEA 2.7 ng/mL Normal 0.0-4.7 [facility] Comment on above: Order Comment: REDRA W FROM 12/10/2024 THAT DID NOT GET SENT TO [employer] Result Comment: Nons mokers <3.9 Smokers <5.6[employer] Electrochemiluminescence Immunoassay(ECLIA)Values obtained with different assay methods or kitscannot be used interchangeably. Results cannot beinterpreted as absolute evidence of the presence orabsence of malignant disease. Performed By: #### L 3100.5000, L3100.2300, L3100.5040, L3100.5030 ####[facility] [address] [place], [place], [address] Neurology Visit Reporton Neurology Visit Report Normal [facility] Cancer antigen 125 (CA-125) measurementOrdered By: Alex oLve on 12-17-2024 Cancer antigen 125 (CA-125) measurement 33.0 U/mL 0.0-38.1 [facility] Comment on above: [employer] El ectrochemiluminescence Immunoassay(ECLIA)Values obtained with different assay methods or kits cannotbe used interchangeably. Results cannot be interpreted asabsolute evidence of the presence or absence of malignantdisease. Serum or plasma carcinoembry onic antigen measurement (mass/volume)Ordered By: Alex Love on 12-17-2024 Carcinoembryonic Ag [Mass/Vol] 2.7 ng/mL 0.0-4.7 [facility] Comment on above: Nonsmokers <3.9 Smok ers <5.6[employer] Electrochemiluminescence Immunoassay(ECLIA)Values obtained with different assay methods or kitscannot be used interchangeably. Results cannot beinterpreted as absolute evidence of the presence orabsence of malignant disease. CBC W/Diff, Automatedon 02-2 Absolute Lymph 1.57 X10 3/uL Normal 0.83-4.51 [facility] Comment on above: Performed By: #### L 900.0098, L504.2610, L100.0100, L500.4050 ####[facility] [address] [place], [address] Absolute Neut 3.7 X10 3/uL Normal 2.0-7.7 [facility] Comment on above: Performed By: #### L 900.0098, L504.2610, L100.0100, L500.4050 ####[facility] [address] [place], [address] Basophils/100 WBC (Bld) 1.0 % Normal 0-1 [facility] Comment on above: Performed By: #### L 900.0098, L504.2610, L100.0100, L500.4050 ####[facility] [address] [place], [address] Eosinophils/100 WBC (Bld) 1.7 % Normal 0-5 [facility] Comment on above: Performed By: #### L 900.0098, L504.2610, L100.0100, L500.4050 ####[facility] [address] [place], [address] Erythrocyte distribution width (RBC) [Ratio] 13.2 % Normal 11.6-14.6 [facility] Comment on above: Performed By: #### L 900.0098, L504.2610, L100.0100, L500.4050 ####[facility] [address] [place], [address] Hematocrit (Bld) [Volume fraction] 37.5 % Normal 37-47 [facility] Comment on above: Performed By: #### L 900.0098, L504.2610, L100.0100, L500.4050 ####[facility] [address] [place], [address] Hemoglobin (Bld) [Mass/Vol] 12.0 g/dL Normal 12.0-15.0 [facility] Comment on above: Performed By: #### L 900.0098, L504.2610, L100.0100, L500.4050 ####[facility] [address] [place], [address] IG% 0.200 Normal 0.0-0.9 [facility] Comment on above: Result Comment: IG% - Immature Granulocytes (promyelocytes, myelocytes andmetamyelocytes) > 1% indicates that a LEFT SHIFT is Present. Performed By: #### L 900.0098, L504.2610, L100.0100, L500.4050 ####[facility] [address] [place], [address] Lymphocytes/100 WBC (Bld) 26.6 % Normal 19-41 [facility] Comment on above: Performed By: #### L 900.0098, L504.2610, L100.0100, L500.4050 ####[facility] [address] [place], [address] MCH (RBC) [Entitic mass] 32.3 pg High 27.0-32.0 [facility] Comment on above: Performed By: #### L 900.0098, L504.2610, L100.0100, L500.4050 ####[facility] [address] [place], [address] MCHC (RBC) [Mass/Vol] 32.0 g/dL Normal 32-36 [facility] Comment on above: Performed By: #### L 900.0098, L504.2610, L100.0100, L500.4050 ####[facility] [address] [place], [address] MCV (RBC) [Entitic vol] 101.1 fL High 81-99 [facility] Comment on above: Performed By: #### L 900.0098, L504.2610, L100.0100, L500.4050 ####[facility] [address] [place], [address] Monocytes/100 WBC (Bld) 8.3 % Normal 0-10 [facility] Comment on above: Performed By: #### L 900.0098, L504.2610, L100.0100, L500.4050 ####[facility] [address] [place], [address] Neutrophils/100 WBC (Bld) 62.2 % Normal 47-70 [facility] Comment on above: Performed By: #### L 900.0098, L504.2610, L100.0100, L500.4050 ####[facility] [address] [place], [address] Nucleated RBC (Bld) [#/Vol] 0 10*3/uL Normal 0-5 [facility] Comment on above: Performed By: #### L 900.0098, L504.2610, L100.0100, L500.4050 ####[facility] [address] [place], [address] Platelet mean volume (Bld) [Entitic vol] 8.5 fL Normal 6.2-12.0 [facility] Comment on above: Performed By: #### L 900.0098, L504.2610, L100.0100, L500.4050 ####[facility] [address] [place], [address] Platelets (Bld) [#/Vol] 161 10*3/uL Normal 150-450 [facility] Comment on above: Performed By: #### L 900.0098, L504.2610, L100.0100, L500.4050 ####[facility] [address] [place], [address] RBC (Bld) [#/Vol] 3.71 10*6/uL Low 4.2-5.4 [facility] Comment on above: Performed By: #### L 900.0098, L504.2610, L100.0100, L500.4050 ####[facility] [address] [place], [address] RDW SD 48.4 fl High 35.1-43.9 [facility] Comment on above: Performed By: #### L 900.0098, L504.2610, L100.0100, L500.4050 ####[facility] [address] [place], [address] WBC (Bld) [#/Vol] 5.9 10*3/uL Normal 4.4-11.0 [facility] Comment on above: Performed By: #### L 900.0098, L504.2610, L100.0100, L500.4050 ####[facility] [address] [place], [address] Chloride measurementOrdered By: Alex Love on 12-10-2024 Chloride [Moles/Vol] 105 mmol/L 96-108 [facility] Comprehensive Metabolic Prof ilon 12-10-2024 Albumin [Mass/Vol] 3.9 g/dL Normal 3.4-4.8 [facility] Comment on above: Performed By: #### L 900.0098, L504.2610, L100.0100, L500.4050 ####[facility] [address] [place], [address] Albumin/Globulin [Mass ratio] 1.6 {ratio} Normal 0.9-2.4 [facility] Comment on above: Performed By: #### L 900.0098, L504.2610, L100.0100, L500.4050 ####[facility] [address] [place], [address] ALK PHOS 33 U/L Low 35-104 [facility] Comment on above: Performed By: #### L 900.0098, L504.2610, L100.0100, L500.4050 ####[facility] [address] [place], [address] ALT [Catalytic activity/Vol] 9 U/L Normal <=34 [facility] Comment on above: Performed By: #### L 900.0098, L504.2610, L100.0100, L500.4050 ####[facility] [address] [place], [address] Anion gap [Moles/Vol] 9 mmol/L Normal 5-15 [facility] Comment on above: Performed By: #### L 900.0098, L504.2610, L100.0100, L500.4050 ####[facility] [address] [place], [address] AST [Catalytic activity/Vol] 18 U/L Normal <=31 [facility] Comment on above: Performed By: #### L 900.0098, L504.2610, L100.0100, L500.4050 ####[facility] [address] [place], [address] Bilirubin [Mass/Vol] 0.36 mg/dL Normal 0.00-1.30 [facility] Comment on above: Performed By: #### L 900.0098, L504.2610, L100.0100, L500.4050 ####[facility] [address] [place], [address] BUN/CRE 20.9 RATIO High 10-20 [facility] Comment on above: Performed By: #### L 900.0098, L504.2610, L100.0100, L500.4050 ####[facility] [address] [place], [address] Calcium [Mass/Vol] 8.7 mg/dL Normal 7.6-11.0 [facility] Comment on above: Performed By: #### L 900.0098, L504.2610, L100.0100, L500.4050 ####[facility] [address] [place], [address] Chloride [Moles/Vol] 105 mmol/L Normal 96-108 [facility] Comment on above: Performed By: #### L 900.0098, L504.2610, L100.0100, L500.4050 ####[facility] [address] [place], [address] CO2 [Moles/Vol] 23.8 mmol/L Normal 22.0-29.0 [facility] Comment on above: Performed By: #### L 900.0098, L504.2610, L100.0100, L500.4050 ####[facility] [address] [place], [address] Creatinine [Mass/Vol] 0.8 mg/dL Normal 0.6-1.0 [facility] Comment on above: Performed By: #### L 900.0098, L504.2610, L100.0100, L500.4050 ####[facility] [address] [place], [address] ECRCL 52.08 ml/min Normal [facility] Comment on above: Performed By: #### L 900.0098, L504.2610, L100.0100, L500.4050 ####[facility] [address] [place], [address] GFR/1.73 sq M.predicted among non-blacks MDRD (S/P/Bld) [Vol rate/Area] 74 mL/min/{1.73_m2} Normal >60 [facility] Comment on above: Result Comment: mL/m in/1.73m2 CKD-EPI Creatinine Equation (2020) Performed By: #### L 900.0098, L504.2610, L100.0100, L500.4050 ####[facility] [address] [place], [address] Globulin (S) [Mass/Vol] 2.4 g/dL Normal 2.2-4.2 [facility] Comment on above: Performed By: #### L 900.0098, L504.2610, L100.0100, L500.4050 ####[facility] [address] [place], [address] Glucose [Mass/Vol] 93 mg/dL Normal 70-99 [facility] Comment on above: Performed By: #### L 900.0098, L504.2610, L100.0100, L500.4050 ####[facility] [address] [place], [address] Potassium [Moles/Vol] 4.7 mmol/L Normal 3.3-5.1 [facility] Comment on above: Performed By: #### L 900.0098, L504.2610, L100.0100, L500.4050 ####[facility] [address] [place], [address] Sodium [Moles/Vol] 138 mmol/L Normal 133-145 [facility] Comment on above: Performed By: #### L 900.0098, L504.2610, L100.0100, L500.4050 ####[facility] [address] [place], [address] T PROT 6.3 g/dL Normal 5.9-8.4 [facility] Comment on above: Performed By: #### L 900.0098, L504.2610, L100.0100, L500.4050 ####[facility] [address] [place], [address] Urea nitrogen [Mass/Vol] 17 mg/dL Normal 4-19 [facility] Comment on above: Performed By: #### L 900.0098, L504.2610, L100.0100, L500.4050 ####[facility] [address] [place], [address] LDHon 12-10-2024 LDH 235 U/L Normal 84-246 [facility] Comment on above: Order Comment: 1 Performed By: #### L 900.0098, L504.2610, L100.0100, L500.4050 ####[facility] [address] [place], [address] NATERAon 12-10-2024 NATURA SEE SCANNED REPORT Normal [facility] Comment on above: Performed By: #### L 900.0098, L504.2610, L100.0100, L500.4050 ####[facility] [address] [place], [address] Oncology Visit Reporton 11-15 Oncology Visit Report Normal [facility] CA 15-3on 11-27-2024 CA 15-3 33.5 U/mL Abnormal 0.0-25.0 [facility] Comment on above: Result Comment: [employer] Electrochemiluminescence Immunoassay(ECLIA)Values obtained with different assay methods or kits cannotbe used interchangeably. Results cannot be interpreted asabsolute evidence of the presence or absence of malignantdisease.Performed at: [address] [id number] Director: Trev Joy PhD, Phone: [phone] Performed By: #### L 500.4050, L100.0100, L3100.5030 ####[facility] [address] [place], [address] CT Chest AND Abd W/ Contrast on 11-27-2024 CT Chest AND Abd W/ Contrast Normal [facility] CBC W/Diff, Automatedon 11-15 Absolute Lymph 1.89 X10 3/uL Normal 0.83-4.51 [facility] Comment on above: Performed By: #### L 500.4050, L100.0100, L3100.5030 ####[facility] [address] [place], [address] Absolute Neut 3.7 X10 3/uL Normal 2.0-7.7 [facility] Comment on above: Performed By: #### L 500.4050, L100.0100, L3100.5030 ####[facility] [address] [place], [address] Basophils/100 WBC (Bld) 1.1 % High 0-1 [facility] Comment on above: Performed By: #### L 500.4050, L100.0100, L3100.5030 ####[facility] [address] [place], [address] Eosinophils/100 WBC (Bld) 2.2 % Normal 0-5 [facility] Comment on above: Performed By: #### L 500.4050, L100.0100, L3100.5030 ####[facility] [address] [place], [address] Erythrocyte distribution width (RBC) [Ratio] 13.2 % Normal 11.6-14.6 [facility] Comment on above: Performed By: #### L 500.4050, L100.0100, L3100.5030 ####[facility] [address] [place], [address] Hematocrit (Bld) [Volume fraction] 38.3 % Normal 37-47 [facility] Comment on above: Performed By: #### L 500.4050, L100.0100, L3100.5030 ####[facility] [address] [place], [address] Hemoglobin (Bld) [Mass/Vol] 12.5 g/dL Normal 12.0-15.0 [facility] Comment on above: Performed By: #### L 500.4050, L100.0100, L3100.5030 ####[facility] [address] [place], [address] IG% 0.300 Normal 0.0-0.9 [facility] Comment on above: Result Comment: IG% - Immature Granulocytes (promyelocytes, myelocytes andmetamyelocytes) > 1% indicates that a LEFT SHIFT is Present. Performed By: #### L 500.4050, L100.0100, L3100.5030 ####[facility] [address] [place], [address] Lymphocytes/100 WBC (Bld) 29.6 % Normal 19-41 [facility] Comment on above: Performed By: #### L 500.4050, L100.0100, L3100.5030 ####[facility] [address] [place], [address] MCH (RBC) [Entitic mass] 32.6 pg High 27.0-32.0 [facility] Comment on above: Performed By: #### L 500.4050, L100.0100, L3100.5030 ####[facility] [address] [place], [address] MCHC (RBC) [Mass/Vol] 32.6 g/dL Normal 32-36 [facility] Comment on above: Performed By: #### L 500.4050, L100.0100, L3100.5030 ####[facility] [address] [place], [address] MCV (RBC) [Entitic vol] 100.0 fL High 81-99 [facility] Comment on above: Performed By: #### L 500.4050, L100.0100, L3100.5030 ####[facility] [address] [place], [address] Monocytes/100 WBC (Bld) 8.3 % Normal 0-10 [facility] Comment on above: Performed By: #### L 500.4050, L100.0100, L3100.5030 ####[facility] [address] [place], [address] Neutrophils/100 WBC (Bld) 58.5 % Normal 47-70 [facility] Comment on above: Performed By: #### L 500.4050, L100.0100, L3100.5030 ####[facility] [address] [place], [address] Nucleated RBC (Bld) [#/Vol] 0 10*3/uL Normal 0-5 [facility] Comment on above: Performed By: #### L 500.4050, L100.0100, L3100.5030 ####[facility] [address] [place], [address] Platelet mean volume (Bld) [Entitic vol] 8.5 fL Normal 6.2-12.0 [facility] Comment on above: Performed By: #### L 500.4050, L100.0100, L3100.5030 ####[facility] [address] [place], [address] Platelets (Bld) [#/Vol] 163 10*3/uL Normal 150-450 [facility] Comment on above: Performed By: #### L 500.4050, L100.0100, L3100.5030 ####[facility] [address] [place], [address] RBC (Bld) [#/Vol] 3.83 10*6/uL Low 4.2-5.4 [facility] Comment on above: Performed By: #### L 500.4050, L100.0100, L3100.5030 ####[facility] [address] [place], [address] RDW SD 48.6 fl High 35.1-43.9 [facility] Comment on above: Performed By: #### L 500.4050, L100.0100, L3100.5030 ####[facility] [address] [place], [address] WBC (Bld) [#/Vol] 6.4 10*3/uL Normal 4.4-11.0 [facility] Comment on above: Performed By: #### L 500.4050, L100.0100, L3100.5030 ####[facility] [address] [place], [address] Comprehensive Metabolic Prof [facility] 11-26-2024 Albumin [Mass/Vol] 3.6 g/dL Normal 3.2-5.0 [facility] Comment on above: Performed By: #### L 500.4050, L100.0100, L3100.5030 ####[facility] [address] [place], [address] Albumin/Globulin [Mass ratio] 1.1 {ratio} Normal 0.9-2.4 [facility] Comment on above: Performed By: #### L 500.4050, L100.0100, L3100.5030 ####[facility] [address] [place], [address] ALK P 32 U/L Low 45-117 [facility] Comment on above: Performed By: #### L 500.4050, L100.0100, L3100.5030 ####[facility] [address] [place], [address] ALT [Catalytic activity/Vol] 15 U/L Normal 13-56 [facility] Comment on above: Performed By: #### L 500.4050, L100.0100, L3100.5030 ####[facility] [address] [place], [address] AST [Catalytic activity/Vol] 15 U/L Normal 15-37 [facility] Comment on above: Performed By: #### L 500.4050, L100.0100, L3100.5030 ####[facility] [address] [place], [address] Bilirubin [Mass/Vol] 0.60 mg/dL Normal 0.20-1.00 [facility] Comment on above: Result Comment: For patients on eltrombopag therapy, use of Dimension [place] TBIL is not recommended. Performed By: #### L 500.4050, L100.0100, L3100.5030 ####[facility] [address] [place], [address] BUN/CRE 27.3 RATIO High 10-20 [facility] Comment on above: Performed By: #### L 500.4050, L100.0100, L3100.5030 ####[facility] [address] [place], [address] CA,Total 8.7 mg/dL Normal 8.5-10.1 [facility] Comment on above: Performed By: #### L 500.4050, L100.0100, L3100.5030 ####[facility] [address] [place], [address] Chloride [Moles/Vol] 107 mmol/L Normal 98-107 [facility] Comment on above: Performed By: #### L 500.4050, L100.0100, L3100.5030 ####[facility] [address] [place], [address] CO2 [Moles/Vol] 25.0 mmol/L Normal 21.0-32.0 [facility] Comment on above: Performed By: #### L 500.4050, L100.0100, L3100.5030 ####[facility] [address] [place], [address] Creatinine [Mass/Vol] 0.84 mg/dL Normal 0.55-1.02 [facility] Comment on above: Result Comment: The validity of the calculated GFR GFRAA in patients over70 years has not been determined. Clinical correlation isessential. Performed By: #### L 500.4050, L100.0100, L3100.5030 ####[facility] [address] [place], [address] ECRCL 49.48 ml/min Normal [facility] Comment on above: Performed By: #### L 500.4050, L100.0100, L3100.5030 ####[facility] [address] [place], [address] EST GFR - AA 83 mL/min Normal >60 [facility] Comment on above: Result Comment: Afri can Mauritanian GFR Calc Performed By: #### L 500.4050, L100.0100, L3100.5030 ####[facility] [address] [place], [address] GAP 7 Normal 5-15 [facility] Comment on above: Performed By: #### L 500.4050, L100.0100, L3100.5030 ####[facility] [address] [place], [address] GFR/1.73 sq M.predicted among non-blacks MDRD (S/P/Bld) [Vol rate/Area] 69 mL/min/{1.73_m2} Normal >60 [facility] Comment on above: Result Comment: Non- GFR Calc Performed By: #### L 500.4050, L100.0100, L3100.5030 ####[facility] [address] [place], [address] Globulin (S) [Mass/Vol] 3.2 g/dL Normal 2.2-4.2 [facility] Comment on above: Performed By: #### L 500.4050, L100.0100, L3100.5030 ####[facility] [address] [place], [address] Glucose [Mass/Vol] 100 mg/dL Normal 74-106 [facility] Comment on above: Result Comment: Fast ing Glucose result from 100 to 125 mg/dLsuggests IMPAIRED HOMEOSTASIS per A.D.A. criteria. Performed By: #### L 500.4050, L100.0100, L3100.5030 ####[facility] [address] [place], [address] Potassium [Moles/Vol] 4.2 mmol/L Normal 3.5-5.1 [facility] Comment on above: Performed By: #### L 500.4050, L100.0100, L3100.5030 ####[facility] [address] [place], [address] Sodium [Moles/Vol] 139 mmol/L Normal 136-145 [facility] Comment on above: Performed By: #### L 500.4050, L100.0100, L3100.5030 ####[facility] [address] [place], [address] T PROT 6.8 g/dL Normal 6.4-8.2 [facility] Comment on above: Performed By: #### L 500.4050, L100.0100, L3100.5030 ####[facility] [address] [place], [address] Urea nitrogen [Mass/Vol] 23 mg/dL High 7-18 [facility] Comment on above: Performed By: #### L 500.4050, L100.0100, L3100.5030 ####[facility] [address] [place], [place], [address] Oncology Visit Reporton 11-15 Oncology Visit Report Normal [facility] Oncology Visit Reporton 09-14 Oncology Visit Report Normal [facility] CA 15-3on 09-19-2024 CA 15-3 31.2 U/mL Abnormal 0.0-25.0 [facility] Comment on above: Result Comment: [employer] Electrochemiluminescence Immunoassay(ECLIA)Values obtained with different assay methods or kits cannotbe used interchangeably. Results cannot be interpreted asabsolute evidence of the presence or absence of malignantdisease.Performed at: [facility] [place] [id number] Director: Trev Joy PhD, Phone: [phone] Performed By: #### L 3100.2300, L3100.5000, L3100.5030, L3100.5040 ####[facility] [address] [facility] [place], [place], [address] CA 27.29on 09-19-2024 CA 27.29 30.5 U/mL Normal 0.0-38.6 [facility] Comment on above: Result Comment: High[employer] Immunochemiluminometric Methodology (ICMA)Values obtained with different assay methods or kits cannotbe used interchangeably. Results cannot be interpreted asabsolute evidence of the presence or absence of malignantdisease. Performed By: #### L 3100.2300, L3100.5000, L3100.5030, L3100.5040 ####[facility] [address] [facility] [place], [place], [address] Cancer Antigen 125on 024 CA 125 24.2 U/mL Normal 0.0-38.1 [facility] Comment on above: Result Comment: [employer] Electrochemiluminescence Immunoassay(ECLIA)Values obtained with different assay methods or kits cannotbe used interchangeably. Results cannot be interpreted asabsolute evidence of the presence or absence of malignantdisease. Performed By: #### L 3100.2300, L3100.5000, L3100.5030, L3100.5040 ####[facility] [address] [place], [place], [id number] Carcinoembryonic Antigenon 1 11-20-2023 CEA 2.8 ng/mL Normal 0.0-4.7 [facility] Comment on above: Result Comment: Nons mokers <3.9 Smokers <5.6[employer] Electrochemiluminescence Immunoassay(ECLIA)Values obtained with different assay methods or kitscannot be used interchangeably. Results cannot beinterpreted as absolute evidence of the presence orabsence of malignant disease. Performed By: #### L 3100.2300, L3100.5000, L3100.5030, L3100.5040 ####[facility] [address] [place], [place], [address] Cardiology Visit Reporton Cardiology Visit Report Normal [facility] Oncology Visit Reporton 08-15 Oncology Visit Report Normal [facility] CA 15-3on 08-22-2024 CA 15-3 29.8 U/mL Abnormal 0.0-25.0 [facility] Comment on above: Result Comment: [employer] Electrochemiluminescence Immunoassay(ECLIA)Values obtained with different assay methods or kits cannotbe used interchangeably. Results cannot be interpreted asabsolute evidence of the presence or absence of malignantdisease.Performed at: [place] [id number] Director: Trev Joy PhD, Phone: [phone] Performed By: #### L 504.2610, L900.0098, L500.4050, L100.0100, L3100.5030 ####[facility] [address] [place], [place], [address] CBC W/Diff, Automatedon Absolute Lymph 1.49 X10 3/uL Normal 0.83-4.51 [facility] Comment on above: Performed By: #### L 504.2610, L900.0098, L500.4050, L100.0100, L3100.5030 ####[facility] [address] [place], [address] Absolute Neut 3.8 X10 3/uL Normal 2.0-7.7 [facility] Comment on above: Performed By: #### L 504.2610, L900.0098, L500.4050, L100.0100, L3100.5030 ####[facility] [address] [place], [address] Basophils/100 WBC (Bld) 0.8 % Normal 0-1 [facility] Comment on above: Performed By: #### L 504.2610, L900.0098, L500.4050, L100.0100, L3100.5030 ####[facility] [address] [place], [address] Eosinophils/100 WBC (Bld) 2.0 % Normal 0-5 [facility] Comment on above: Performed By: #### L 504.2610, L900.0098, L500.4050, L100.0100, L3100.5030 ####[facility] [address] [place], [address] Erythrocyte distribution width (RBC) [Ratio] 13.4 % Normal 11.6-14.6 [facility] Comment on above: Performed By: #### L 504.2610, L900.0098, L500.4050, L100.0100, L3100.5030 ####[facility] [address] [place], [address] Hematocrit (Bld) [Volume fraction] 38.3 % Normal 37-47 [facility] Comment on above: Performed By: #### L 504.2610, L900.0098, L500.4050, L100.0100, L3100.5030 ####[facility] [address] [place], [address] Hemoglobin (Bld) [Mass/Vol] 12.3 g/dL Normal 12.0-15.0 [facility] Comment on above: Performed By: #### L 504.2610, L900.0098, L500.4050, L100.0100, L3100.5030 ####[facility] [address] [place], [address] IG% 0.300 Normal 0.0-0.9 [facility] Comment on above: Result Comment: IG% - Immature Granulocytes (promyelocytes, myelocytes andmetamyelocytes) > 1% indicates that a LEFT SHIFT is Present. Performed By: #### L 504.2610, L900.0098, L500.4050, L100.0100, L3100.5030 ####[facility] [address] [place], [address] Lymphocytes/100 WBC (Bld) 24.9 % Normal 19-41 [facility] Comment on above: Performed By: #### L 504.2610, L900.0098, L500.4050, L100.0100, L3100.5030 ####[facility] [address] [place], [address] MCH (RBC) [Entitic mass] 32.1 pg High 27.0-32.0 [facility] Comment on above: Performed By: #### L 504.2610, L900.0098, L500.4050, L100.0100, L3100.5030 ####[facility] [address] [place], [address] MCHC (RBC) [Mass/Vol] 32.1 g/dL Normal 32-36 [facility] Comment on above: Performed By: #### L 504.2610, L900.0098, L500.4050, L100.0100, L3100.5030 ####[facility] [address] [place], [address] MCV (RBC) [Entitic vol] 100.0 fL High 81-99 [facility] Comment on above: Performed By: #### L 504.2610, L900.0098, L500.4050, L100.0100, L3100.5030 ####[facility] [address] [place], [address] Monocytes/100 WBC (Bld) 7.8 % Normal 0-10 [facility] Comment on above: Performed By: #### L 504.2610, L900.0098, L500.4050, L100.0100, L3100.5030 ####[facility] [address] [place], [address] Neutrophils/100 WBC (Bld) 64.2 % Normal 47-70 [facility] Comment on above: Performed By: #### L 504.2610, L900.0098, L500.4050, L100.0100, L3100.5030 ####[facility] [address] [place], [address] Nucleated RBC (Bld) [#/Vol] 0 10*3/uL Normal 0-5 [facility] Comment on above: Performed By: #### L 504.2610, L900.0098, L500.4050, L100.0100, L3100.5030 ####[facility] [address] [place], [address] Platelet mean volume (Bld) [Entitic vol] 8.7 fL Normal 6.2-12.0 [facility] Comment on above: Performed By: #### L 504.2610, L900.0098, L500.4050, L100.0100, L3100.5030 ####[facility] [address] [place], [address] Platelets (Bld) [#/Vol] 174 10*3/uL Normal 150-450 [facility] Comment on above: Performed By: #### L 504.2610, L900.0098, L500.4050, L100.0100, L3100.5030 ####[facility] [address] [place], [address] RBC (Bld) [#/Vol] 3.83 10*6/uL Low 4.2-5.4 [facility] Comment on above: Performed By: #### L 504.2610, L900.0098, L500.4050, L100.0100, L3100.5030 ####[facility] [address] [place], [address] RDW SD 49.3 fl High 35.1-43.9 [facility] Comment on above: Performed By: #### L 504.2610, L900.0098, L500.4050, L100.0100, L3100.5030 ####[facility] [address] [place], [address] WBC (Bld) [#/Vol] 6.0 10*3/uL Normal 4.4-11.0 [facility] Comment on above: Performed By: #### L 504.2610, L900.0098, L500.4050, L100.0100, L3100.5030 ####[facility] [address] [place], [address] Comprehensive Metabolic [facility] 08-21-2024 Albumin [Mass/Vol] 3.4 g/dL Normal 3.2-5.0 [facility] Comment on above: Order Comment: 1 Performed By: #### L 504.2610, L900.0098, L500.4050, L100.0100, L3100.5030 ####[facility] [address] [place], [address] Albumin/Globulin [Mass ratio] 1.1 {ratio} Normal 0.9-2.4 [facility] Comment on above: Order Comment: 1 Performed By: #### L 504.2610, L900.0098, L500.4050, L100.0100, L3100.5030 ####[facility] [address] [place], [address] ALK P 35 U/L Low 45-117 [facility] Comment on above: Order Comment: 1 Performed By: #### L 504.2610, L900.0098, L500.4050, L100.0100, L3100.5030 ####[facility] [address] [place], [address] ALT [Catalytic activity/Vol] 14 U/L Normal 13-56 [facility] Comment on above: Order Comment: 1 Performed By: #### L 504.2610, L900.0098, L500.4050, L100.0100, L3100.5030 ####[facility] [address] [place], [address] AST [Catalytic activity/Vol] 15 U/L Normal 15-37 [facility] Comment on above: Order Comment: 1 Performed By: #### L 504.2610, L900.0098, L500.4050, L100.0100, L3100.5030 ####[facility] [address] [place], [address] Bilirubin [Mass/Vol] 0.50 mg/dL Normal 0.20-1.00 [facility] Comment on above: Order Comment: 1 Result Comment: For patients on eltrombopag therapy, use of Dimension [place] TBIL is not recommended. Performed By: #### L 504.2610, L900.0098, L500.4050, L100.0100, L3100.5030 ####[facility] [address] [place], [address] BUN/CRE 27.0 RATIO High 10-20 [facility] Comment on above: Order Comment: 1 Performed By: #### L 504.2610, L900.0098, L500.4050, L100.0100, L3100.5030 ####[facility] [address] [place], [address] CA,Total 8.9 mg/dL Normal 8.5-10.1 [facility] Comment on above: Order Comment: 1 Performed By: #### L 504.2610, L900.0098, L500.4050, L100.0100, L3100.5030 ####[facility] [address] [place], [address] Chloride [Moles/Vol] 109 mmol/L High 98-107 [facility] Comment on above: Order Comment: 1 Performed By: #### L 504.2610, L900.0098, L500.4050, L100.0100, L3100.5030 ####[facility] [address] [place], [address] CO2 [Moles/Vol] 26.0 mmol/L Normal 21.0-32.0 [facility] Comment on above: Order Comment: 1 Performed By: #### L 504.2610, L900.0098, L500.4050, L100.0100, L3100.5030 ####[facility] [address] [place], [address] Creatinine [Mass/Vol] 1.00 mg/dL Normal 0.55-1.02 [facility] Comment on above: Order Comment: 1 Result Comment: The validity of the calculated GFR GFRAA in patients over70 years has not been determined. Clinical correlation isessential. Performed By: #### L 504.2610, L900.0098, L500.4050, L100.0100, L3100.5030 ####[facility] [address] [place], [address] ECRCL 41.89 ml/min Normal [facility] Comment on above: Order Comment: 1 Performed By: #### L 504.2610, L900.0098, L500.4050, L100.0100, L3100.5030 ####[facility] [address] [place], [address] EST GFR - AA 68 mL/min Normal >60 [facility] Comment on above: Order Comment: 1 Result Comment: Afri can Mauritanian GFR Calc Performed By: #### L 504.2610, L900.0098, L500.4050, L100.0100, L3100.5030 ####[facility] [address] [place], [address] GAP 4 Low 5-15 [facility] Comment on above: Order Comment: 1 Performed By: #### L 504.2610, L900.0098, L500.4050, L100.0100, L3100.5030 ####[facility] [address] [place], [address] GFR/1.73 sq M.predicted among non-blacks MDRD (S/P/Bld) [Vol rate/Area] 57 mL/min/{1.73_m2} Low >60 [facility] Comment on above: Order Comment: 1 Result Comment: Non- GFR Calc Performed By: #### L 504.2610, L900.0098, L500.4050, L100.0100, L3100.5030 ####[facility] [address] [place], [address] Globulin (S) [Mass/Vol] 3.2 g/dL Normal 2.2-4.2 [facility] Comment on above: Order Comment: 1 Performed By: #### L 504.2610, L900.0098, L500.4050, L100.0100, L3100.5030 ####[facility] [address] [place], [address] Glucose [Mass/Vol] 84 mg/dL Normal 74-106 [facility] Comment on above: Order Comment: 1 Performed By: #### L 504.2610, L900.0098, L500.4050, L100.0100, L3100.5030 ####[facility] [address] [place], [address] Potassium [Moles/Vol] 4.1 mmol/L Normal 3.5-5.1 [facility] Comment on above: Order Comment: 1 Performed By: #### L 504.2610, L900.0098, L500.4050, L100.0100, L3100.5030 ####[facility] [address] [place], [address] Sodium [Moles/Vol] 138 mmol/L Normal 136-145 [facility] Comment on above: Order Comment: 1 Performed By: #### L 504.2610, L900.0098, L500.4050, L100.0100, L3100.5030 ####[facility] [address] [place], [address] T PROT 6.6 g/dL Normal 6.4-8.2 [facility] Comment on above: Order Comment: 1 Performed By: #### L 504.2610, L900.0098, L500.4050, L100.0100, L3100.5030 ####[facility] [address] [place], [address] Urea nitrogen [Mass/Vol] 27 mg/dL High 7-18 [facility] Comment on above: Order Comment: 1 Performed By: #### L 504.2610, L900.0098, L500.4050, L100.0100, L3100.5030 ####[facility] [address] [place], [address] LDHon 08-21-2024 LDH 190 U/L Normal 84-246 [facility] Comment on above: Order Comment: 1 Performed By: #### L 504.2610, L900.0098, L500.4050, L100.0100, L3100.5030 ####[facility] [address] [place], [address] NATERAon 08-21-2024 NATURA SEE SCANNED REPORT Normal [facility] Comment on above: Performed By: #### L 504.2610, L900.0098, L500.4050, L100.0100, L3100.5030 ####[facility] [address] [place], [place], [address] Radiation Oncology Visiton 10-21-2023 Radiation Oncology Visit Normal [facility] Oncology Visit Reporton 06-15 Oncology Visit Report Normal [facility] CA 15-3on 06-20-2024 CA 15-3 21.7 U/mL Normal 0.0-25.0 [facility] Comment on above: Result Comment: [employer] Electrochemiluminescence Immunoassay(ECLIA)Values obtained with different assay methods or kits cannotbe used interchangeably. Results cannot be interpreted asabsolute evidence of the presence or absence of malignantdisease.Performed at: [facility] [address] [id number] Director: Trev Joy PhD, Phone: [phone] Performed By: #### L 500.4050, L3100.5040, L504.2610, L3100.5030, L100.0100 ####[facility] [address] [place], [address] CA 27.29on 06-20-2024 CA 27.29 22.1 U/mL Normal 0.0-38.6 [facility] [facility] Comment on above: Result Comment: HighlightCamaur Immunochemiluminometric Methodology (ICMA)Values obtained with different assay methods or kits cannotbe used interchangeably. Results cannot be interpreted asabsolute evidence of the presence or absence of malignantdisease. Performed By: #### L 500.4050, L3100.5040, L504.2610, L3100.5030, L100.0100 ####[facility] [address] [place], [address] CBC W/Diff, Automatedon 09-0 5-2023 Absolute Lymph 1.39 X10 3/uL Normal 0.83-4.51 [facility] Comment on above: Performed By: #### L 500.4050, L3100.5040, L504.2610, L3100.5030, L100.0100 ####[facility] [address] [place], [address] Absolute Neut 3.4 X10 3/uL Normal 2.0-7.7 [facility] Comment on above: Performed By: #### L 500.4050, L3100.5040, L504.2610, L3100.5030, L100.0100 ####[facility] [address] [place], [address] Basophils/100 WBC (Bld) 0.9 % Normal 0-1 [facility] Comment on above: Performed By: #### L 500.4050, L3100.5040, L504.2610, L3100.5030, L100.0100 ####[facility] [address] [place], [address] Eosinophils/100 WBC (Bld) 2.2 % Normal 0-5 [facility] Comment on above: Performed By: #### L 500.4050, L3100.5040, L504.2610, L3100.5030, L100.0100 ####[facility] [address] [place], [address] Erythrocyte distribution width (RBC) [Ratio] 13.2 % Normal 11.6-14.6 [facility] Comment on above: Performed By: #### L 500.4050, L3100.5040, L504.2610, L3100.5030, L100.0100 ####[facility] [address] [place], [address] Hematocrit (Bld) [Volume fraction] 37.1 % Normal 37-47 [facility] Comment on above: Performed By: #### L 500.4050, L3100.5040, L504.2610, L3100.5030, L100.0100 ####[facility] [address] [place], [address] Hemoglobin (Bld) [Mass/Vol] 11.6 g/dL Low 12.0-15.0 [facility] Comment on above: Performed By: #### L 500.4050, L3100.5040, L504.2610, L3100.5030, L100.0100 ####[facility] [address] [place], [address] IG% 0.500 Normal 0.0-0.9 [facility] Comment on above: Result Comment: IG% - Immature Granulocytes (promyelocytes, myelocytes andmetamyelocytes) > 1% indicates that a LEFT SHIFT is Present. Performed By: #### L 500.4050, L3100.5040, L504.2610, L3100.5030, L100.0100 ####[facility] [address] [place], [address] Lymphocytes/100 WBC (Bld) 25.0 % Normal 19-41 [facility] Comment on above: Performed By: #### L 500.4050, L3100.5040, L504.2610, L3100.5030, L100.0100 ####[facility] [address] [place], [address] MCH (RBC) [Entitic mass] 31.4 pg Normal 27.0-32.0 [facility] Comment on above: Performed By: #### L 500.4050, L3100.5040, L504.2610, L3100.5030, L100.0100 ####[facility] [address] [place], [address] MCHC (RBC) [Mass/Vol] 31.3 g/dL Low 32-36 [facility] Comment on above: Performed By: #### L 500.4050, L3100.5040, L504.2610, L3100.5030, L100.0100 ####[facility] [address] [place], [address] MCV (RBC) [Entitic vol] 100.5 fL High 81-99 [facility] Comment on above: Performed By: #### L 500.4050, L3100.5040, L504.2610, L3100.5030, L100.0100 ####[facility] [address] [place], [address] Monocytes/100 WBC (Bld) 9.4 % Normal 0-10 [facility] Comment on above: Performed By: #### L 500.4050, L3100.5040, L504.2610, L3100.5030, L100.0100 ####[facility] [address] [place], [address] Neutrophils/100 WBC (Bld) 62.0 % Normal 47-70 [facility] Comment on above: Performed By: #### L 500.4050, L3100.5040, L504.2610, L3100.5030, L100.0100 ####[facility] [address] [place], [address] Nucleated RBC (Bld) [#/Vol] 0 10*3/uL Normal 0-5 [facility] Comment on above: Performed By: #### L 500.4050, L3100.5040, L504.2610, L3100.5030, L100.0100 ####[facility] [address] [place], [address] Platelet mean volume (Bld) [Entitic vol] 8.5 fL Normal 6.2-12.0 [facility] Comment on above: Performed By: #### L 500.4050, L3100.5040, L504.2610, L3100.5030, L100.0100 ####[facility] [address] [place], [address] Platelets (Bld) [#/Vol] 170 10*3/uL Normal 150-450 [facility] Comment on above: Performed By: #### L 500.4050, L3100.5040, L504.2610, L3100.5030, L100.0100 ####[facility] [address] [place], [address] RBC (Bld) [#/Vol] 3.69 10*6/uL Low 4.2-5.4 [facility] Comment on above: Performed By: #### L 500.4050, L3100.5040, L504.2610, L3100.5030, L100.0100 ####[facility] [address] [place], [address] RDW SD 48.9 fl High 35.1-43.9 [facility] Comment on above: Performed By: #### L 500.4050, L3100.5040, L504.2610, L3100.5030, L100.0100 ####[facility] [address] [place], [address] WBC (Bld) [#/Vol] 5.6 10*3/uL Normal 4.4-11.0 [facility] Comment on above: Performed By: #### L 500.4050, L3100.5040, L504.2610, L3100.5030, L100.0100 ####[facility] [address] [place], [address] Comprehensive Metabolic Prof ilon 06-19-2024 Albumin [Mass/Vol] 3.0 g/dL Low 3.2-5.0 [facility] Comment on above: Order Comment: 1 Performed By: #### L 500.4050, L3100.5040, L504.2610, L3100.5030, L100.0100 ####[facility] [address] [place], [address] Albumin/Globulin [Mass ratio] 1.0 {ratio} Normal 0.9-2.4 [facility] Comment on above: Order Comment: 1 Performed By: #### L 500.4050, L3100.5040, L504.2610, L3100.5030, L100.0100 ####[facility] [address] [place], [address] ALK P 40 U/L Low 45-117 [facility] Comment on above: Order Comment: 1 Performed By: #### L 500.4050, L3100.5040, L504.2610, L3100.5030, L100.0100 ####[facility] [address] [place], [address] ALT [Catalytic activity/Vol] 18 U/L Normal 13-56 [facility] Comment on above: Order Comment: 1 Performed By: #### L 500.4050, L3100.5040, L504.2610, L3100.5030, L100.0100 ####[facility] [address] [place], [address] AST [Catalytic activity/Vol] 13 U/L Low 15-37 [facility] Comment on above: Order Comment: 1 Performed By: #### L 500.4050, L3100.5040, L504.2610, L3100.5030, L100.0100 ####[facility] [address] [place], [address] Bilirubin [Mass/Vol] 0.40 mg/dL Normal 0.20-1.00 [facility] Comment on above: Order Comment: 1 Result Comment: For patients on eltrombopag therapy, use of Dimension [place] TBIL is not recommended. Performed By: #### L 500.4050, L3100.5040, L504.2610, L3100.5030, L100.0100 ####[facility] [address] [place], [address] BUN/CRE 22.1 RATIO High 10-20 [facility] Comment on above: Order Comment: 1 Performed By: #### L 500.4050, L3100.5040, L504.2610, L3100.5030, L100.0100 ####[facility] [address] [place], [address] CA,Total 8.4 mg/dL Low 8.5-10.1 [facility] Comment on above: Order Comment: 1 Performed By: #### L 500.4050, L3100.5040, L504.2610, L3100.5030, L100.0100 ####[facility] [address] [place], [address] Chloride [Moles/Vol] 110 mmol/L High 98-107 [facility] Comment on above: Order Comment: 1 Performed By: #### L 500.4050, L3100.5040, L504.2610, L3100.5030, L100.0100 ####[facility] [address] [place], [address] CO2 [Moles/Vol] 27.0 mmol/L Normal 21.0-32.0 [facility] Comment on above: Order Comment: 1 Performed By: #### L 500.4050, L3100.5040, L504.2610, L3100.5030, L100.0100 ####[facility] [address] [place], [address] Creatinine [Mass/Vol] 0.86 mg/dL Normal 0.55-1.02 [facility] Comment on above: Order Comment: 1 Result Comment: The validity of the calculated GFR GFRAA in patients over70 years has not been determined. Clinical correlation isessential. Performed By: #### L 500.4050, L3100.5040, L504.2610, L3100.5030, L100.0100 ####[facility] [address] [place], [address] ECRCL 49.45 ml/min Normal [facility] Comment on above: Order Comment: 1 Performed By: #### L 500.4050, L3100.5040, L504.2610, L3100.5030, L100.0100 ####[facility] [address] [place], [address] EST GFR - AA 82 mL/min Normal >60 [facility] Comment on above: Order Comment: 1 Result Comment: Afri can [place]ian GFR Calc Performed By: #### L 500.4050, L3100.5040, L504.2610, L3100.5030, L100.0100 ####[facility] [address] [place], [address] GAP 2 Low 5-15 [facility] Comment on above: Order Comment: 1 Performed By: #### L 500.4050, L3100.5040, L504.2610, L3100.5030, L100.0100 ####[facility] [address] [place], [address] GFR/1.73 sq M.predicted among non-blacks MDRD (S/P/Bld) [Vol rate/Area] 68 mL/min/{1.73_m2} Normal >60 [facility] Comment on above: Order Comment: 1 Result Comment: Non- GFR Calc Performed By: #### L 500.4050, L3100.5040, L504.2610, L3100.5030, L100.0100 ####[facility] [address] [place], [address] Globulin (S) [Mass/Vol] 3.1 g/dL Normal 2.2-4.2 [facility] Comment on above: Order Comment: 1 Performed By: #### L 500.4050, L3100.5040, L504.2610, L3100.5030, L100.0100 ####[facility] [address] [place], [address] Glucose [Mass/Vol] 85 mg/dL Normal 74-106 [facility] Comment on above: Order Comment: 1 Performed By: #### L 500.4050, L3100.5040, L504.2610, L3100.5030, L100.0100 ####[facility] [address] [place], [address] Potassium [Moles/Vol] 4.4 mmol/L Normal 3.5-5.1 [facility] Comment on above: Order Comment: 1 Performed By: #### L 500.4050, L3100.5040, L504.2610, L3100.5030, L100.0100 ####[facility] [address] [place], [address] Sodium [Moles/Vol] 139 mmol/L Normal 136-145 [facility] Comment on above: Order Comment: 1 Performed By: #### L 500.4050, L3100.5040, L504.2610, L3100.5030, L100.0100 ####[facility] [address] [place], [address] T PROT 6.1 g/dL Low 6.4-8.2 [facility] Comment on above: Order Comment: 1 Performed By: #### L 500.4050, L3100.5040, L504.2610, L3100.5030, L100.0100 ####[facility] [address] [place], [address] Urea nitrogen [Mass/Vol] 19 mg/dL High 7-18 [facility] Comment on above: Order Comment: 1 Performed By: #### L 500.4050, L3100.5040, L504.2610, L3100.5030, L100.0100 ####[facility] [address] [place], [place], [address] LDHon 06-19-2024 LDH 205 U/L Normal 84-246 [facility] Comment on above: Order Comment: 1 Performed By: #### L 500.4050, L3100.5040, L504.2610, L3100.5030, L100.0100 ####[facility] [address] [place], [place], [id number] Oncology Visit Reporton 05-15 Oncology Visit Report Normal [facility] CA 15-3on 05-20-2024 CA 15-3 22.0 U/mL Normal 0.0-25.0 [facility] Comment on above: Result Comment: [employer] Electrochemiluminescence Immunoassay(ECLIA)Values obtained with different assay methods or kits cannotbe used interchangeably. Results cannot be interpreted asabsolute evidence of the presence or absence of malignantdisease.Performed at: [facility] [address] [id number] Director: Trev Joy PhD, Phone: [phone] Performed By: #### L 3100.5030, L100.0100, L3100.5040, L504.2610, L500.4050 ####[facility] [address] [place], [place], [address] CA 27.29on 05-20-2024 CA 27.29 18.3 U/mL Normal 0.0-38.6 [facility] Comment on above: Result Comment: HighlightCamaur Immunochemiluminometric Methodology (ICMA)Values obtained with different assay methods or kits cannotbe used interchangeably. Results cannot be interpreted asabsolute evidence of the presence or absence of malignantdisease. Performed By: #### L 3100.5030, L100.0100, L3100.5040, L504.2610, L500.4050 ####[facility] [address] [place], [address] CBC W/Diff, Automatedon 08-0 5-2023 Absolute Lymph 1.49 X10 3/uL Normal 0.83-4.51 [facility] Comment on above: Performed By: #### L 3100.5030, L100.0100, L3100.5040, L504.2610, L500.4050 ####[facility] [address] [place], [address] Absolute Neut 4.2 X10 3/uL Normal 2.0-7.7 [facility] Comment on above: Performed By: #### L 3100.5030, L100.0100, L3100.5040, L504.2610, L500.4050 ####[facility] [address] [place], [address] Basophils/100 WBC (Bld) 0.6 % Normal 0-1 [facility] Comment on above: Performed By: #### L 3100.5030, L100.0100, L3100.5040, L504.2610, L500.4050 ####[facility] [address] [place], [address] Eosinophils/100 WBC (Bld) 1.7 % Normal 0-5 [facility] Comment on above: Performed By: #### L 3100.5030, L100.0100, L3100.5040, L504.2610, L500.4050 ####[facility] [address] [place], [address] Erythrocyte distribution width (RBC) [Ratio] 13.4 % Normal 11.6-14.6 [facility] Comment on above: Performed By: #### L 3100.5030, L100.0100, L3100.5040, L504.2610, L500.4050 ####[facility] [address] [place], [address] Hematocrit (Bld) [Volume fraction] 36.8 % Low 37-47 [facility] Comment on above: Performed By: #### L 3100.5030, L100.0100, L3100.5040, L504.2610, L500.4050 ####[facility] [address] [place], [address] Hemoglobin (Bld) [Mass/Vol] 11.7 g/dL Low 12.0-15.0 [facility] Comment on above: Performed By: #### L 3100.5030, L100.0100, L3100.5040, L504.2610, L500.4050 ####[facility] [address] [place], [address] IG% 0.500 Normal 0.0-0.9 [facility] Comment on above: Result Comment: IG% - Immature Granulocytes (promyelocytes, myelocytes andmetamyelocytes) > 1% indicates that a LEFT SHIFT is Present. Performed By: #### L 3100.5030, L100.0100, L3100.5040, L504.2610, L500.4050 ####[facility] [address] [place], [address] Lymphocytes/100 WBC (Bld) 23.4 % Normal 19-41 [facility] Comment on above: Performed By: #### L 3100.5030, L100.0100, L3100.5040, L504.2610, L500.4050 ####[facility] [address] [place], [address] MCH (RBC) [Entitic mass] 32.0 pg Normal 27.0-32.0 [facility] Comment on above: Performed By: #### L 3100.5030, L100.0100, L3100.5040, L504.2610, L500.4050 ####[facility] [address] [place], [address] MCHC (RBC) [Mass/Vol] 31.8 g/dL Low 32-36 [facility] Comment on above: Performed By: #### L 3100.5030, L100.0100, L3100.5040, L504.2610, L500.4050 ####[facility] [address] [place], [address] MCV (RBC) [Entitic vol] 100.5 fL High 81-99 [facility] Comment on above: Performed By: #### L 3100.5030, L100.0100, L3100.5040, L504.2610, L500.4050 ####[facility] [address] [place], [address] Monocytes/100 WBC (Bld) 7.2 % Normal 0-10 [facility] Comment on above: Performed By: #### L 3100.5030, L100.0100, L3100.5040, L504.2610, L500.4050 ####[facility] [address] [place], [address] Neutrophils/100 WBC (Bld) 66.6 % Normal 47-70 [facility] Comment on above: Performed By: #### L 3100.5030, L100.0100, L3100.5040, L504.2610, L500.4050 ####[facility] [address] [place], [address] Nucleated RBC (Bld) [#/Vol] 0 10*3/uL Normal 0-5 [facility] Comment on above: Performed By: #### L 3100.5030, L100.0100, L3100.5040, L504.2610, L500.4050 ####[facility] [address] [place], [address] Platelet mean volume (Bld) [Entitic vol] 8.6 fL Normal 6.2-12.0 [facility] Comment on above: Performed By: #### L 3100.5030, L100.0100, L3100.5040, L504.2610, L500.4050 ####[facility] [address] [place], [address] Platelets (Bld) [#/Vol] 164 10*3/uL Normal 150-450 [facility] Comment on above: Performed By: #### L 3100.5030, L100.0100, L3100.5040, L504.2610, L500.4050 ####[facility] [address] [place], [address] RBC (Bld) [#/Vol] 3.66 10*6/uL Low 4.2-5.4 [facility] Comment on above: Performed By: #### L 3100.5030, L100.0100, L3100.5040, L504.2610, L500.4050 ####[facility] [address] [place], [address] RDW SD 49.7 fl High 35.1-43.9 [facility] Comment on above: Performed By: #### L 3100.5030, L100.0100, L3100.5040, L504.2610, L500.4050 ####[facility] [address] [place], [address] WBC (Bld) [#/Vol] 6.4 10*3/uL Normal 4.4-11.0 [facility] Comment on above: Performed By: #### L 3100.5030, L100.0100, L3100.5040, L504.2610, L500.4050 ####[facility] [address] [place], [address] Comprehensive Metabolic Prof [facility] 05-19-2024 Albumin [Mass/Vol] 3.1 g/dL Low 3.2-5.0 [facility] Comment on above: Order Comment: 1 Performed By: #### L 3100.5030, L100.0100, L3100.5040, L504.2610, L500.4050 ####[facility] [address] [place], [address] Albumin/Globulin [Mass ratio] 0.9 {ratio} Normal 0.9-2.4 [facility] Comment on above: Order Comment: 1 Performed By: #### L 3100.5030, L100.0100, L3100.5040, L504.2610, L500.4050 ####[facility] [address] [place], [address] ALK P 42 U/L Low 45-117 [facility] Comment on above: Order Comment: 1 Performed By: #### L 3100.5030, L100.0100, L3100.5040, L504.2610, L500.4050 ####[facility] [address] [place], [address] ALT [Catalytic activity/Vol] 17 U/L Normal 13-56 [facility] Comment on above: Order Comment: 1 Performed By: #### L 3100.5030, L100.0100, L3100.5040, L504.2610, L500.4050 ####[facility] [address] [place], [address] AST [Catalytic activity/Vol] 15 U/L Normal 15-37 [facility] Comment on above: Order Comment: 1 Performed By: #### L 3100.5030, L100.0100, L3100.5040, L504.2610, L500.4050 ####[facility] [address] [place], [address] Bilirubin [Mass/Vol] 0.60 mg/dL Normal 0.20-1.00 [facility] Comment on above: Order Comment: 1 Result Comment: For patients on eltrombopag therapy, use of Dimension [place] TBIL is not recommended. Performed By: #### L 3100.5030, L100.0100, L3100.5040, L504.2610, L500.4050 ####[facility] [address] [place], [address] BUN/CRE 18.9 RATIO Normal 10-20 [facility] Comment on above: Order Comment: 1 Performed By: #### L 3100.5030, L100.0100, L3100.5040, L504.2610, L500.4050 ####[facility] [address] [place], [address] CA,Total 8.6 mg/dL Normal 8.5-10.1 [facility] Comment on above: Order Comment: 1 Performed By: #### L 3100.5030, L100.0100, L3100.5040, L504.2610, L500.4050 ####[facility] [address] [place], [address] Chloride [Moles/Vol] 109 mmol/L High 98-107 [facility] Comment on above: Order Comment: 1 Performed By: #### L 3100.5030, L100.0100, L3100.5040, L504.2610, L500.4050 ####[facility] [address] [place], [address] CO2 [Moles/Vol] 26.0 mmol/L Normal 21.0-32.0 [facility] Comment on above: Order Comment: 1 Performed By: #### L 3100.5030, L100.0100, L3100.5040, L504.2610, L500.4050 ####[facility] [address] [place], [address] Creatinine [Mass/Vol] 0.90 mg/dL Normal 0.55-1.02 [facility] Comment on above: Order Comment: 1 Result Comment: The validity of the calculated GFR GFRAA in patients over70 years has not been determined. Clinical correlation isessential. Performed By: #### L 3100.5030, L100.0100, L3100.5040, L504.2610, L500.4050 ####[facility] [address] [place], [address] ECRCL 47.39 ml/min Normal [facility] Comment on above: Order Comment: 1 Performed By: #### L 3100.5030, L100.0100, L3100.5040, L504.2610, L500.4050 ####[facility] [address] [place], [address] EST GFR - AA 77 mL/min Normal >60 [facility] Comment on above: Order Comment: 1 Result Comment: Afri can [place] GFR Calc Performed By: #### L 3100.5030, L100.0100, L3100.5040, L504.2610, L500.4050 ####[facility] [address] [place], [address] GAP 4 Low 5-15 [facility] Comment on above: Order Comment: 1 Performed By: #### L 3100.5030, L100.0100, L3100.5040, L504.2610, L500.4050 ####[facility] [address] [place], [address] GFR/1.73 sq M.predicted among non-blacks MDRD (S/P/Bld) [Vol rate/Area] 64 mL/min/{1.73_m2} Normal >60 [facility] Comment on above: Order Comment: 1 Result Comment: Non- GFR Calc Performed By: #### L 3100.5030, L100.0100, L3100.5040, L504.2610, L500.4050 ####[facility] [address] [place], [address] Globulin (S) [Mass/Vol] 3.3 g/dL Normal 2.2-4.2 [facility] Comment on above: Order Comment: 1 Performed By: #### L 3100.5030, L100.0100, L3100.5040, L504.2610, L500.4050 ####[facility] [address] [place], [address] Glucose [Mass/Vol] 103 mg/dL Normal 74-106 [facility] Comment on above: Order Comment: 1 Result Comment: Fast ing Glucose result from 100 to 125 mg/dLsuggests IMPAIRED HOMEOSTASIS per A.D.A. criteria. Performed By: #### L 3100.5030, L100.0100, L3100.5040, L504.2610, L500.4050 ####[facility] [address] [place], [address] Potassium [Moles/Vol] 4.3 mmol/L Normal 3.5-5.1 [facility] Comment on above: Order Comment: 1 Performed By: #### L 3100.5030, L100.0100, L3100.5040, L504.2610, L500.4050 ####[facility] [address] [place], [address] Sodium [Moles/Vol] 139 mmol/L Normal 136-145 [facility] Comment on above: Order Comment: 1 Performed By: #### L 3100.5030, L100.0100, L3100.5040, L504.2610, L500.4050 ####[facility] [address] [place], [address] T PROT 6.4 g/dL Normal 6.4-8.2 [facility] Comment on above: Order Comment: 1 Performed By: #### L 3100.5030, L100.0100, L3100.5040, L504.2610, L500.4050 ####[facility] [address] [place], [address] Urea nitrogen [Mass/Vol] 17 mg/dL Normal 7-18 [facility] Comment on above: Order Comment: 1 Performed By: #### L 3100.5030, L100.0100, L3100.5040, L504.2610, L500.4050 ####[facility] [address] [place], [address] LDHon 05-19-2024 LDH 197 U/L Normal 84-246 [facility] Comment on above: Order Comment: 1 Performed By: #### L 3100.5030, L100.0100, L3100.5040, L504.2610, L500.4050 ####[facility] [address] [place], [address] NATERAon 05-19-2024 NATURA SEE SCANNED REPORT Normal [facility] Comment on above: Performed By: #### L 900.0098 ####[facility] [address] [place], [address] Oncology Visit Reporton 04-14 Oncology Visit Report Normal [facility] CA 15-3on 04-23-2024 CA 15-3 19.3 U/mL Normal 0.0-25.0 [facility] Comment on above: Order Comment: PT RAMOS D CT WITH CONTRAST Result Comment: [facility] Electrochemiluminescence Immunoassay(ECLIA)Values obtained with different assay methods or kits cannotbe used interchangeably. Results cannot be interpreted asabsolute evidence of the presence or absence of malignantdisease.Performed at: [address] [id number] Director: Trev Joy PhD, Phone: [phone] Performed By: #### L 3100.5030, L100.0100, L3100.5040, L500.4050, L900.0098, L504.2610 ####[facility] [address] [place], [address] CA 27.29on 04-23-2024 CA 27.29 18.2 U/mL Normal 0.0-38.6 [facility] Comment on above: Order Comment: PT RAMOS D CT WITH CONTRAST Result Comment: [facility] [employer] Immunochemiluminometric Methodology (ICMA)Values obtained with different assay methods or kits cannotbe used interchangeably. Results cannot be interpreted asabsolute evidence of the presence or absence of malignantdisease. Performed By: #### L 3100.5030, L100.0100, L3100.5040, L500.4050, L900.0098, L504.2610 ####[facility] [address] [place], [address] CBC W/Diff, Automatedon Absolute Lymph 1.44 X10 3/uL Normal 0.83-4.51 [facility] Comment on above: Order Comment: PT RAMOS D CT WITH CONTRAST Performed By: #### L 3100.5030, L100.0100, L3100.5040, L500.4050, L900.0098, L504.2610 ####[facility] [address] [place], [address] Absolute Neut 3.5 X10 3/uL Normal 2.0-7.7 [facility] Comment on above: Order Comment: PT RAMOS D CT WITH CONTRAST Performed By: #### L 3100.5030, L100.0100, L3100.5040, L500.4050, L900.0098, L504.2610 ####[facility] [address] [place], [address] Basophils/100 WBC (Bld) 0.9 % Normal 0-1 [facility] Comment on above: Order Comment: PT RAMOS D CT WITH CONTRAST Performed By: #### L 3100.5030, L100.0100, L3100.5040, L500.4050, L900.0098, L504.2610 ####[facility] [address] [place], [address] Eosinophils/100 WBC (Bld) 1.6 % Normal 0-5 [facility] Comment on above: Order Comment: PT RAMOS D CT WITH CONTRAST Performed By: #### L 3100.5030, L100.0100, L3100.5040, L500.4050, L900.0098, L504.2610 ####[facility] [address] [place], [address] Erythrocyte distribution width (RBC) [Ratio] 14.0 % Normal 11.6-14.6 [facility] Comment on above: Order Comment: PT RAMOS D CT WITH CONTRAST Performed By: #### L 3100.5030, L100.0100, L3100.5040, L500.4050, L900.0098, L504.2610 ####[facility] [address] [place], [address] Hematocrit (Bld) [Volume fraction] 35.9 % Low 37-47 [facility] Comment on above: Order Comment: PT RAMOS D CT WITH CONTRAST Performed By: #### L 3100.5030, L100.0100, L3100.5040, L500.4050, L900.0098, L504.2610 ####[facility] [address] [place], [address] Hemoglobin (Bld) [Mass/Vol] 11.3 g/dL Low 12.0-15.0 [facility] Comment on above: Order Comment: PT RAMOS D CT WITH CONTRAST Performed By: #### L 3100.5030, L100.0100, L3100.5040, L500.4050, L900.0098, L504.2610 ####[facility] [address] [place], [address] IG% 0.200 Normal 0.0-0.9 [facility] Comment on above: Order Comment: PT RAMOS D CT WITH CONTRAST Result Comment: IG% - Immature Granulocytes (promyelocytes, myelocytes andmetamyelocytes) > 1% indicates that a LEFT SHIFT is Present. Performed By: #### L 3100.5030, L100.0100, L3100.5040, L500.4050, L900.0098, L504.2610 ####[facility] [address] [place], [address] Lymphocytes/100 WBC (Bld) 26.2 % Normal 19-41 [facility] Comment on above: Order Comment: PT RAMOS D CT WITH CONTRAST Performed By: #### L 3100.5030, L100.0100, L3100.5040, L500.4050, L900.0098, L504.2610 ####[facility] [address] [place], [address] MCH (RBC) [Entitic mass] 31.0 pg Normal 27.0-32.0 [facility] Comment on above: Order Comment: PT RAMOS D CT WITH CONTRAST Performed By: #### L 3100.5030, L100.0100, L3100.5040, L500.4050, L900.0098, L504.2610 ####[facility] [address] [place], [address] MCHC (RBC) [Mass/Vol] 31.5 g/dL Low 32-36 [facility] Comment on above: Order Comment: PT RAMOS D CT WITH CONTRAST Performed By: #### L 3100.5030, L100.0100, L3100.5040, L500.4050, L900.0098, L504.2610 ####[facility] [address] [place], [address] MCV (RBC) [Entitic vol] 98.4 fL Normal 81-99 [facility] Comment on above: Order Comment: PT RAMOS D CT WITH CONTRAST Performed By: #### L 3100.5030, L100.0100, L3100.5040, L500.4050, L900.0098, L504.2610 ####[facility] [address] [place], [address] Monocytes/100 WBC (Bld) 7.8 % Normal 0-10 [facility] Comment on above: Order Comment: PT RAMOS D CT WITH CONTRAST Performed By: #### L 3100.5030, L100.0100, L3100.5040, L500.4050, L900.0098, L504.2610 ####[facility] [address] [place], [address] Neutrophils/100 WBC (Bld) 63.3 % Normal 47-70 [facility] Comment on above: Order Comment: PT RAMOS D CT WITH CONTRAST Performed By: #### L 3100.5030, L100.0100, L3100.5040, L500.4050, L900.0098, L504.2610 ####[facility] [address] [place], [address] Nucleated RBC (Bld) [#/Vol] 0 10*3/uL Normal 0-5 [facility] Comment on above: Order Comment: PT RAMOS D CT WITH CONTRAST Performed By: #### L 3100.5030, L100.0100, L3100.5040, L500.4050, L900.0098, L504.2610 ####[facility] [address] [place], [address] Platelet mean volume (Bld) [Entitic vol] 8.7 fL Normal 6.2-12.0 [facility] Comment on above: Order Comment: PT RAMOS D CT WITH CONTRAST Performed By: #### L 3100.5030, L100.0100, L3100.5040, L500.4050, L900.0098, L504.2610 ####[facility] [address] [place], [address] Platelets (Bld) [#/Vol] 169 10*3/uL Normal 150-450 [facility] Comment on above: Order Comment: PT RAMOS D CT WITH CONTRAST Performed By: #### L 3100.5030, L100.0100, L3100.5040, L500.4050, L900.0098, L504.2610 ####[facility] [address] [place], [address] RBC (Bld) [#/Vol] 3.65 10*6/uL Low 4.2-5.4 [facility] Comment on above: Order Comment: PT RAMOS D CT WITH CONTRAST Performed By: #### L 3100.5030, L100.0100, L3100.5040, L500.4050, L900.0098, L504.2610 ####[facility] [address] [place], [address] RDW SD 50.7 fl High 35.1-43.9 [facility] Comment on above: Order Comment: PT RAMOS D CT WITH CONTRAST Performed By: #### L 3100.5030, L100.0100, L3100.5040, L500.4050, L900.0098, L504.2610 ####[facility] [address] [place], [address] WBC (Bld) [#/Vol] 5.5 10*3/uL Normal 4.4-11.0 [facility] Comment on above: Order Comment: PT RAMOS D CT WITH CONTRAST Performed By: #### L 3100.5030, L100.0100, L3100.5040, L500.4050, L900.0098, L504.2610 ####[facility] [address] [place], [address] CREATININE FINGERSTICKon CREATININE WB < 1.0 Normal 0.55-1.02 [facility] Comment on above: Performed By: #### L 9100.0200 ####[facility] [address] [place], [address] EGFR WB > 60.0000 Normal >60 [facility] Comment on above: Performed By: #### L 9100.0200 ####[facility] [address] [place], [address] CT Chest AND Abd W/ Contrast on 04-21-2024 CT Chest AND Abd W/ Contrast Normal [facility] Comprehensive Metabolic Prof ilon 04-21-2024 Albumin [Mass/Vol] 3.2 g/dL Normal 3.2-5.0 [facility] Comment on above: Order Comment: PT RAMOS D CT WITH CONTRAST1 Performed By: #### L 3100.5030, L100.0100, L3100.5040, L500.4050, L900.0098, L504.2610 ####[facility] [address] [place], [address] Albumin/Globulin [Mass ratio] 1.0 {ratio} Normal 0.9-2.4 [facility] Comment on above: Order Comment: PT RAMOS D CT WITH CONTRAST1 Performed By: #### L 3100.5030, L100.0100, L3100.5040, L500.4050, L900.0098, L504.2610 ####[facility] [address] [place], [address] ALK P 43 U/L Low 45-117 [facility] Comment on above: Order Comment: PT RAMOS D CT WITH CONTRAST1 Performed By: #### L 3100.5030, L100.0100, L3100.5040, L500.4050, L900.0098, L504.2610 ####[facility] [address] [place], [address] ALT [Catalytic activity/Vol] 16 U/L Normal 13-56 [facility] Comment on above: Order Comment: PT RAMOS D CT WITH CONTRAST1 Performed By: #### L 3100.5030, L100.0100, L3100.5040, L500.4050, L900.0098, L504.2610 ####[facility] [address] [place], [address] AST [Catalytic activity/Vol] 11 U/L Low 15-37 [facility] Comment on above: Order Comment: PT RAMOS D CT WITH CONTRAST1 Performed By: #### L 3100.5030, L100.0100, L3100.5040, L500.4050, L900.0098, L504.2610 ####[facility] [address] [place], [address] Bilirubin [Mass/Vol] 0.60 mg/dL Normal 0.20-1.00 [facility] Comment on above: Order Comment: PT RAMOS D CT WITH CONTRAST1 Result Comment: For patients on eltrombopag therapy, use of Dimension [place] TBIL is not recommended. Performed By: #### L 3100.5030, L100.0100, L3100.5040, L500.4050, L900.0098, L504.2610 ####[facility] [address] [place], [address] BUN/CRE 22.5 RATIO High 10-20 [facility] Comment on above: Order Comment: PT RAMOS D CT WITH CONTRAST1 Performed By: #### L 3100.5030, L100.0100, L3100.5040, L500.4050, L900.0098, L504.2610 ####[facility] [address] [place], [address] CA,Total 8.3 mg/dL Low 8.5-10.1 [facility] Comment on above: Order Comment: PT RAMOS D CT WITH CONTRAST1 Performed By: #### L 3100.5030, L100.0100, L3100.5040, L500.4050, L900.0098, L504.2610 ####[facility] [address] [place], [address] Chloride [Moles/Vol] 107 mmol/L Normal 98-107 [facility] Comment on above: Order Comment: PT RAMOS D CT WITH CONTRAST1 Performed By: #### L 3100.5030, L100.0100, L3100.5040, L500.4050, L900.0098, L504.2610 ####[facility] [address] [place], [address] CO2 [Moles/Vol] 27.0 mmol/L Normal 21.0-32.0 [facility] Comment on above: Order Comment: PT RAMOS D CT WITH CONTRAST1 Performed By: #### L 3100.5030, L100.0100, L3100.5040, L500.4050, L900.0098, L504.2610 ####[facility] [address] [place], [address] Creatinine [Mass/Vol] 0.76 mg/dL Normal 0.55-1.02 [facility] Comment on above: Order Comment: PT RAMOS D CT WITH CONTRAST1 Result Comment: The validity of the calculated GFR GFRAA in patients over70 years has not been determined. Clinical correlation isessential. Performed By: #### L 3100.5030, L100.0100, L3100.5040, L500.4050, L900.0098, L504.2610 ####[facility] [address] [place], [address] EST GFR - AA 95 mL/min Normal >60 [facility] Comment on above: Order Comment: PT RAMOS D CT WITH CONTRAST1 Result Comment: Afri can [place] GFR Calc Performed By: #### L 3100.5030, L100.0100, L3100.5040, L500.4050, L900.0098, L504.2610 ####[facility] [address] [place], [address] GAP 3 Low 5-15 [facility] Comment on above: Order Comment: PT RAMOS D CT WITH CONTRAST1 Performed By: #### L 3100.5030, L100.0100, L3100.5040, L500.4050, L900.0098, L504.2610 ####[facility] [address] [place], [address] GFR/1.73 sq M.predicted among non-blacks MDRD (S/P/Bld) [Vol rate/Area] 78 mL/min/{1.73_m2} Normal >60 [facility] Comment on above: Order Comment: PT RAMOS D CT WITH CONTRAST1 Result Comment: Non- GFR Calc Performed By: #### L 3100.5030, L100.0100, L3100.5040, L500.4050, L900.0098, L504.2610 ####[facility] [address] [place], [address] Globulin (S) [Mass/Vol] 3.1 g/dL Normal 2.2-4.2 [facility] Comment on above: Order Comment: PT RAMOS D CT WITH CONTRAST1 Performed By: #### L 3100.5030, L100.0100, L3100.5040, L500.4050, L900.0098, L504.2610 ####[facility] [address] [place], [address] Glucose [Mass/Vol] 93 mg/dL Normal 74-106 [facility] Comment on above: Order Comment: PT RAMOS D CT WITH CONTRAST1 Performed By: #### L 3100.5030, L100.0100, L3100.5040, L500.4050, L900.0098, L504.2610 ####[facility] [address] [place], [address] Potassium [Moles/Vol] 4.2 mmol/L Normal 3.5-5.1 [facility] Comment on above: Order Comment: PT RAMOS D CT WITH CONTRAST1 Performed By: #### L 3100.5030, L100.0100, L3100.5040, L500.4050, L900.0098, L504.2610 ####[facility] [address] [place], [address] Sodium [Moles/Vol] 137 mmol/L Normal 136-145 [facility] Comment on above: Order Comment: PT RAMOS D CT WITH CONTRAST1 Performed By: #### L 3100.5030, L100.0100, L3100.5040, L500.4050, L900.0098, L504.2610 ####[facility] [address] [place], [place], [id number] T PROT 6.3 g/dL Low 6.4-8.2 [facility] Comment on above: Order Comment: PT RAMOS D CT WITH CONTRAST1 Performed By: #### L 3100.5030, L100.0100, L3100.5040, L500.4050, L900.0098, L504.2610 ####[facility] [address] [place], [place], [id number] Urea nitrogen [Mass/Vol] 17 mg/dL Normal 7-18 [facility] Comment on above: Order Comment: PT RAMOS D CT WITH CONTRAST1 Performed By: #### L 3100.5030, L100.0100, L3100.5040, L500.4050, L900.0098, L504.2610 ####[facility] [address] [place], [address] LDHon 04-21-2024 LDH 211 U/L Normal 84-246 [facility] Comment on above: Order Comment: PT RAMOS D CT WITH CONTRAST1 Performed By: #### L 3100.5030, L100.0100, L3100.5040, L500.4050, L900.0098, L504.2610 ####[facility] [address] [place], [place], [id number] NATERAon 04-21-2024 NATURA SEE SCANNED REPORT Normal [facility] Comment on above: Order Comment: PT RAMOS D CT WITH CONTRAST Performed By: #### L 3100.5030, L100.0100, L3100.5040, L500.4050, L900.0098, L504.2610 ####[facility] [address] [place], [place], [id number] Blood manual differential co mment interpretation (narrative result)Ordered By: Alex Love on 11-06-2023 Manual differential comment Nba (Bld) [Interp] SCANNED [facility] Blood platelet adequacy dete ction by light microscopyOrdered By: Alex Love on 11-06-2023 Platelets LM Ql (Bld) MOD DEC ADEQ [facility] Laboratory - Hematology and Cell countsOrdered By: Alex Love on 11-06-2023 Anisocytosis Ql (Bld) 2+ [facility] Macrocytes detectionOrdered By: Alex Love on 11-06-2023 Macrocytes Ql (Bld) 1+ [facility] No Panel InformationOrdered By: Alex Love on 11-06-2023 Reactive Lymphocytes 1+ [facility] Absolute lymphocyte countOrd ered By: Alex Love on 10-09-2023 Lymphocytes Auto (Unsp spec) [#/Vol] 1.13 10*3/uL 0.83-4.51 [facility] Basophil percentageOrdered B y: Alex Love on 10-09-2023 Basophils/100 WBC (Bld) 2.8 % 0-1 [facility] Bilirubin [Mass/Vol] 0.60 mg/dL 0.20-1.00 [facility] Comment on above: For patients on eltr ombopag therapy, use of Dimension [place] TBIL is not recommended. Chloride [Moles/Vol] 108 mmol/L 98-107 [facility] Eosinophils/100 WBC (Bld) 3.2 % 0-5 [facility] Glucose [Mass/Vol] 102 mg/dL 74-106 [facility] Comment on above: Fasting Glucose resu lt from 100 to 125 mg/dL suggests IMPAIRED HOMEOSTASIS per A.D.A. criteria. LDH [Catalytic activity/Vol] 263 U/L 84-246 [facility] Neutrophils (Bld) [#/Vol] 1.2 10*3/uL 2.0-7.7 [facility] Neutrophils/100 WBC (Bld) 40.8 % 47-70 [facility] Potassium [Moles/Vol] 4.4 mmol/L 3.5-5.1 [facility] Protein [Mass/Vol] 6.8 g/dL 6.4-8.2 [facility] Sodium [Moles/Vol] 139 mmol/L 136-145 [facility] WBC (Bld) [#/Vol] 2.8 10*3/uL 4.4-11.0 [facility] Blood erythrocytes count (nu mber/volume)Ordered By: Alex Love on 10-09-2023 RBC (Bld) [#/Vol] 2.97 10*6/uL 4.2-5.4 [facility] Blood hemoglobin measurement (mass/volume)Ordered By: Alex Love on 10-09-2023 Hemoglobin (Bld) [Mass/Vol] 11.1 g/dL 12.0-15.0 [facility] Blood lymphocytes/100 leukoc ytesOrdered By: Alex Love on 10-09-2023 Lymphocytes/100 WBC (Bld) 39.8 % 19-41 [facility] Blood manual differential co mment interpretation (narrative result)Ordered By: Alex Love on 10-09-2023 Manual differential comment Nba (Bld) [Interp] SCANNED [facility] Blood monocytes/100 leukocyt esOrdered By: Alex Love on 10-09-2023 Monocytes/100 WBC (Bld) 13.0 % 0-10 [facility] Blood platelet mean volumeOr dered By: Alex Love on 10-09-2023 Platelet mean volume (Bld) [Entitic vol] 8.7 fL 6.2-12.0 [facility] Determination of erythrocyte mean corpuscular volume (MCV)Ordered By: Alex Love on 10-09-2023 MCV (RBC) [Entitic vol] 114.5 fL 81-99 [facility] Hematocrit Auto (Bld) [Volum e fraction]Ordered By: Alex Love on 10-09-2023 Hematocrit (Bld) [Volume fraction] 34.0 % 37-47 [facility] Laboratory - Chemistry and C hemistry - challengeOrdered By: Alex Love on 10-09-2023 ALP [Catalytic activity/Vol] 68 U/L 45-117 [facility] ALT [Catalytic activity/Vol] 16 U/L 13-56 [facility] CO2 [Moles/Vol] 28.0 mmol/L 21.0-32.0 [facility] Globulin (S) [Mass/Vol] 3.5 g/dL 2.2-4.2 [facility] Urea nitrogen/Creatinine [Mass ratio] 19.7 mg/mg 10-20 [facility] Laboratory - Hematology and Cell countsOrdered By: Alex Love on 10-09-2023 Erythrocyte distribution width (RBC) [Entitic vol] 63.4 fL 35.1-43.9 [facility] Erythrocyte distribution width (RBC) [Ratio] 14.9 % 11.6-14.6 [facility] Immature granulocytes/100 WBC (Bld) 0.400 % 0.0-0.9 [facility] Comment on above: IG% - Immature Granu locytes (promyelocytes, myelocytes and metamyelocytes) > 1% indicates that a LEFT SHIFT is Present. MCH (RBC) [Entitic mass] 37.4 pg 27.0-32.0 [facility] Nucleated RBC/100 WBC (Bld) [Ratio] 0 % 0-5 [facility] MCHC Auto (RBC) [Mass/Vol]Or dered By: Alex Love on 10-09-2023 MCHC (RBC) [Mass/Vol] 32.6 g/dL 32-36 [facility] No Panel InformationOrdered By: Alex Love on 10-09-2023 Miscellaneous Test Comment MAILED SPECIMEN [facility] CA 15-3 Antigen 34.2 U/mL 0.0-25.0 [facility] Comment on above: [facility] El ectrochemiluminescence Immunoassay(ECLIA)Values obtained with different assay methods or kits cannotbe used interchangeably. Results cannot be interpreted asabsolute evidence of the presence or absence of malignantdisease.Performed at: [facility] [place] [id number] Director: Trev Joy PhD, Phone: [phone] Estimated Creatinine Clearance Calc 35.42 ml/min [facility] Estimated GFR (MDRD) Amer 76 mL/min >60 [facility] Comment on above: GFR Calc Estimated GFR (MDRD) Non-Af Amer 63 mL/min >60 [facility] Comment on above: Non- GFR Calc Reactive Lymphocytes 1+ [facility] Platelets bldOrdered By: Torito Love on 10-09-2023 Platelets (Bld) [#/Vol] 120 10*3/uL 150-450 [facility] Serum or plasma albumin brandan urement (mass/volume)Ordered By: Alex Love on 10-09-2023 Albumin [Mass/Vol] 3.3 g/dL 3.2-5.0 [facility] Serum or plasma albumin/glob ulin mass ratioOrdered By: Alex Love on 10-09-2023 Albumin/Globulin [Mass ratio] 0.9 {ratio} 0.9-2.4 [facility] Serum or plasma calcium brandan urement (mass/volume)Ordered By: Alex Love on 10-09-2023 Calcium [Mass/Vol] 9.1 mg/dL 8.5-10.1 [facility] Serum or plasma creatinine m easurement (mass/volume)Ordered By: Alex Love on 10-09-2023 Creatinine [Mass/Vol] 0.91 mg/dL 0.55-1.02 [facility] Comment on above: The validity of the calculated GFR & GFRAA in patients over 70 years has not been determined. Clinical correlation is essential. Serum or plasma urea nitroge n measurement (mass/volume)Ordered By: Alex Love on 10-09-2023 Urea nitrogen [Mass/Vol] 18 mg/dL 7-18 [facility] Thin prep Papanicolaou smear with manual screeningOrdered By: Alex Love on 10-09-2023 Thin prep Papanicolaou smear with manual screening 14 U/L 15-37 [facility] Thin prep Papanicolaou smear with manual screening 3 5-15 [facility] Laboratory - Hematology and Cell countsOrdered By: Alex Love on 09-11-2023 Anisocytosis Ql (Bld) 2+ [facility] Macrocytes detectionOrdered By: Alex Love on 09-11-2023 Macrocytes Ql (Bld) 1+ [facility] No Panel InformationOrdered By: Alex Love on 09-11-2023 CA 27.29 40.5 U/mL 0.0-38.6 [facility] Comment on above: [employer] Shah[employer]aur Immu nochemiluminometric Methodology (ICMA)Values obtained with different assay methods or kits cannotbe used interchangeably. Results cannot be interpreted asabsolute evidence of the presence or absence of malignantdisease. Review by pathologistOrdered By: Alex Love on 09-11-2023 Pathologist review Nba (Unsp spec) [Interp] Reviewed [facility] Comment on above: Previous reported re sult: Marie green Edited by: RGOOD on 09/12/23:1526Pancytopenia.Macrocytic anemia.LeukopeniaMild Thrombocytopenia.Clinical correlation necessary.Rafi Joshi D.O. 09/12/23 AMENDED REPORT 09/12/23 1526 PATH REV previously reported as: Marie green Serum or plasma carcinoembry onic antigen measurement (mass/volume)Ordered By: Alex Love on 09-11-2023 Carcinoembryonic Ag [Mass/Vol] 2.8 ng/mL 0.0-4.7 [facility] Comment on above: Nonsmokers <3.9 Smok ers <5.6[employer] Electrochemiluminescence Immunoassay(ECLIA)Values obtained with different assay methods or kitscannot be used interchangeably. Results cannot beinterpreted as absolute evidence of the presence orabsence of malignant disease. Thin prep Papanicolaou smear with manual screeningOrdered By: Alex Love on 09-11-2023 Thin prep Papanicolaou smear with manual screening 1+ [facility] Blood polychromasia detectio n by light microscopyOrdered By: Alex Love on 06-05-2023 Polychromasia LM Ql (Bld) RARE [facility] Absolute lymphocyte countOrd ered By: Alex Love on 05-22-2023 Lymphocytes Auto (Unsp spec) [#/Vol] 1.46 10*3/uL 0.83-4.51 [facility] Basophil percentageOrdered B y: Alex Love on 05-22-2023 Basophils/100 WBC (Bld) 1.9 % 0-1 [facility] Bilirubin [Mass/Vol] 0.60 mg/dL 0.20-1.00 [facility] Comment on above: For patients on eltr ombopag therapy, use of Dimension [place] TBIL is not recommended. Chloride [Moles/Vol] 108 mmol/L 98-107 [facility] Eosinophils/100 WBC (Bld) 1.9 % 0-5 [facility] Glucose [Mass/Vol] 98 mg/dL 74-106 [facility] LDH [Catalytic activity/Vol] 206 U/L 84-246 [facility] Neutrophils (Bld) [#/Vol] 1.2 10*3/uL 2.0-7.7 [facility] Neutrophils/100 WBC (Bld) 39.1 % 47-70 [facility] Potassium [Moles/Vol] 4.5 mmol/L 3.5-5.1 [facility] Protein [Mass/Vol] 6.8 g/dL 6.4-8.2 [facility] Sodium [Moles/Vol] 138 mmol/L 136-145 [facility] WBC (Bld) [#/Vol] 3.2 10*3/uL 4.4-11.0 [facility] Blood erythrocytes count (nu mber/volume)Ordered By: Alex Love on 05-22-2023 RBC (Bld) [#/Vol] 3.52 10*6/uL 4.2-5.4 [facility] Blood hemoglobin measurement (mass/volume)Ordered By: Alex Love on 05-22-2023 Hemoglobin (Bld) [Mass/Vol] 11.2 g/dL 12.0-15.0 [facility] Blood lymphocytes/100 leukoc ytesOrdered By: Alex Love on 05-22-2023 Lymphocytes/100 WBC (Bld) 46.3 % 19-41 [facility] Blood manual differential co mment interpretation (narrative result)Ordered By: Alex Love on 05-22-2023 Manual differential comment Nba (Bld) [Interp] SCANNED [facility] Blood monocytes/100 leukocyt esOrdered By: Alex Love on 05-22-2023 Monocytes/100 WBC (Bld) 10.5 % 0-10 [facility] Blood platelet mean volumeOr dered By: Alex Love on 05-22-2023 Platelet mean volume (Bld) [Entitic vol] 9.0 fL 6.2-12.0 [facility] Determination of erythrocyte mean corpuscular volume (MCV)Ordered By: Alex Love on 05-22-2023 MCV (RBC) [Entitic vol] 101.4 fL 81-99 [facility] Hematocrit Auto (Bld) [Volum e fraction]Ordered By: Alex Love on 05-22-2023 Hematocrit (Bld) [Volume fraction] 35.7 % 37-47 [facility] Laboratory - Chemistry and C hemistry - challengeOrdered By: Alex Love on 05-22-2023 ALP [Catalytic activity/Vol] 88 U/L 45-117 [facility] ALT [Catalytic activity/Vol] 18 U/L 13-56 [facility] CO2 [Moles/Vol] 28.0 mmol/L 21.0-32.0 [facility] Globulin (S) [Mass/Vol] 3.5 g/dL 2.2-4.2 [facility] Urea nitrogen/Creatinine [Mass ratio] 16.3 mg/mg 10-20 [facility] Laboratory - Hematology and Cell countsOrdered By: Alex Love on 05-22-2023 Erythrocyte distribution width (RBC) [Entitic vol] 53.8 fL 35.1-43.9 [facility] Erythrocyte distribution width (RBC) [Ratio] 16.6 % 11.6-14.6 [facility] Immature granulocytes/100 WBC (Bld) 0.300 % 0.0-0.9 [facility] Comment on above: IG% - Immature Granu locytes (promyelocytes, myelocytes and metamyelocytes) > 1% indicates that a LEFT SHIFT is Present. MCH (RBC) [Entitic mass] 31.8 pg 27.0-32.0 [facility] Nucleated RBC/100 WBC (Bld) [Ratio] 0 % 0-5 [facility] MCHC Auto (RBC) [Mass/Vol]Or dered By: Alex Love on 05-22-2023 MCHC (RBC) [Mass/Vol] 31.4 g/dL 32-36 [facility] No Panel InformationOrdered By: Alex Love on 05-22-2023 CA 125 Antigen 29.2 U/mL 0.0-38.1 [facility] Comment on above: [employer] El ectrochemiluminescence Immunoassay(ECLIA)Values obtained with different assay methods or kits cannotbe used interchangeably. Results cannot be interpreted asabsolute evidence of the presence or absence of malignantdisease. CA 15-3 Antigen 34.9 U/mL 0.0-25.0 [facility] Comment on above: [employer] El ectrochemiluminescence Immunoassay(ECLIA)Values obtained with different assay methods or kits cannotbe used interchangeably. Results cannot be interpreted asabsolute evidence of the presence or absence of malignantdisease.Performed at: [facility] [facility] [id number] Director: Trev Joy PhD, Phone: [phone] CA 27.29 39.9 U/mL 0.0-38.6 [facility] Comment on above: [employer] Immu nochemiluminometric Methodology (ICMA)Values obtained with different assay methods or kits cannotbe used interchangeably. Results cannot be interpreted asabsolute evidence of the presence or absence of malignantdisease. Estimated Creatinine Clearance Calc 31.51 ml/min [facility] Estimated GFR (MDRD) Amer 66 mL/min >60 [facility] Comment on above: GFR Calc Estimated GFR (MDRD) Non-Af Amer 54 mL/min >60 [facility] Comment on above: Non- GFR Calc Platelets bldOrdered By: Torito Love on 05-22-2023 Platelets (Bld) [#/Vol] 168 10*3/uL 150-450 [facility] Serum or plasma albumin brandan urement (mass/volume)Ordered By: Alex Love on 05-22-2023 Albumin [Mass/Vol] 3.3 g/dL 3.2-5.0 [facility] Serum or plasma albumin/glob ulin mass ratioOrdered By: Alex Love on 05-22-2023 Albumin/Globulin [Mass ratio] 0.9 {ratio} 0.9-2.4 [facility] Serum or plasma calcium brandan urement (mass/volume)Ordered By: Alex Castellano on 05-22-2023 Calcium [Mass/Vol] 8.7 mg/dL 8.5-10.1 [facility] Serum or plasma carcinoembry onic antigen measurement (mass/volume)Ordered By: Alex Love on 05-22-2023 Carcinoembryonic Ag [Mass/Vol] 3.1 ng/mL 0.0-4.7 [facility] Comment on above: Nonsmokers <3.9 Smok ers <5.6[employer] Electrochemiluminescence Immunoassay(ECLIA)Values obtained with different assay methods or kitscannot be used interchangeably. Results cannot beinterpreted as absolute evidence of the presence orabsence of malignant disease. Serum or plasma creatinine m easurement (mass/volume)Ordered By: Alex Love on 05-22-2023 Creatinine [Mass/Vol] 1.04 mg/dL 0.55-1.02 [facility] Comment on above: The validity of the calculated GFR & GFRAA in patients over 70 years has not been determined. Clinical correlation is essential. Serum or plasma urea nitroge n measurement (mass/volume)Ordered By: Alex Love on 05-22-2023 Urea nitrogen [Mass/Vol] 17 mg/dL 7-18 [facility] Thin prep Papanicolaou smear with manual screeningOrdered By: Alex Love on 05-22-2023 Thin prep Papanicolaou smear with manual screening 11 U/L 15-37 [facility] Thin prep Papanicolaou smear with manual screening 2 5-15 [facility] Basophil percentageOrdered B y: Uyen Lynn on 05-17-2023 Cholesterol [Mass/Vol] 140 mg/dL <200 [facility] Comment on above: <200 mg/dL Desirable 200-240 mg/dL Borderline >240 mg/dL High Risk Triglyceride [Mass/Vol] 69 mg/dL <199 [facility] Comment on above: The drugs N-Acetylcy steine and Metamizole may falsely depress this assay.Serum Triglycerides Reference Interval Normal <150 mg/dL Borderline high 150 - 199 mg/dL High 200 - 499 mg/dL Very High > or = 500 mg/dL Laboratory - Chemistry and C hemistry - challengeOrdered By: Uyen Lynn on 05-17-2023 Free T4 [Mass/Vol] 1.16 ng/dL 0.76-1.46 [facility] No Panel InformationOrdered By: Uyen Lynn on 05-17-2023 Free Triiodothyronine (T3) pg/dL 2.5 pg/mL 2.18-3.98 [facility] Thyroglobulin Antibody < 1.0 IU/mL 0.0-0.9 [facility] Comment on above: Thyroglobulin Antibo dy measured by Shavon CoulterMethodology Thyroglobulin Level 25.6 ng/mL 1.5-38.5 [facility] Comment on above: According to the [facility] Academy of Clinical Biochemistry,the reference interval for Thyroglobulin (TG) should berelated to euthyroid patients and not for patients whounderwent thyroidectomy. TG reference intervals for thesepatients depend on the residual mass of the thyroid tissueleft after surgery. Establishing a post-operative baselineis recommended. The assay limit of quantitation is 0.1ng/mLThyroglobulin measured by Shavon [place] ImmunometricAss[employer] Thyroid Stimulating Hormone (TSH) 0.34 uIU/mL 0.358-3.74 [facility] Vitamin D 25-Hydroxy 79.3 ng/mL [facility] Comment on above: Vitamin D 25(OH) Sta tus Range Deficiency <20 ng/mL (50nmol/L) Insufficiency 20 - 30 ng/mL (50 - 75 nmol/L) Sufficiency 30 - 100 ng/mL (75 - 250 nmol/L) Toxicity >100 ng/mL (>250 nmol/L) Serum or plasma cholesterol in HDL measurement (mass/volume)Ordered By: Uyen Lynn on 05-17-2023 Cholesterol in HDL [Mass/Vol] 62 mg/dL >40 [facility] Comment on above: The drugs N-Acetylcy steine and Metamizole may falsely depress this assay. Reference Range HDL <40 mg/dL Low HDL Cholesterol HDL >or= 60 mg/dL High HDL Cholesterol Serum or plasma cholesterol in VLDL measurement (mass/volume)Ordered By: Uyen Lynn on 05-17-2023 Cholesterol in VLDL [Mass/Vol] 14 mg/dL 5-40 [facility] Serum or plasma low density lipoprotein (LDL) cholesterol measurement (mass/volume)Ordered By: Uyen Lynn on 05-17-2023 Cholesterol in LDL [Mass/Vol] 64 mg/dL 0-130 [facility] Serum or plasma thyroperoxid ase antibody assay (units/volume)Ordered By: Uyen Lynn on 05-17-2023 TPO Ab Qn [IU]/mL 0-34 [facility] Comment on above: Performed at: [place] [id number] Director: Trev Joy PhD, Phone: [phone] Whole blood hemoglobin A1c/t otal hemoglobin ratio (mass fraction)Ordered By: Uyen Lynn on 05-17-2023 HbA1c (Bld) [Mass fraction] 5.8 % 3.8-5.6 [facility] Comment on above: Normal < 5.7 % Predi abetic 5.7 - 6.4 % Diabetic >or= 6.5 % Please note range changes. Absolute lymphocyte countOrd ered By: Susanne Lopez on 05-08-2023 Lymphocytes Auto (Unsp spec) [#/Vol] 1.68 10*3/uL 0.83-4.51 [facility] Basophil percentageOrdered B y: Alex Ivan on 05-08-2023 Basophil percentage 3.6 mg/dL 2.5-4.9 [facility] LDH [Catalytic activity/Vol] 197 U/L 84-246 [facility] Basophil percentageOrdered B y: Susanne Lopez on 05-08-2023 Basophils/100 WBC (Bld) 1.1 % 0-1 [facility] Bilirubin [Mass/Vol] 0.70 mg/dL 0.20-1.00 [facility] Comment on above: For patients on eltr ombopag therapy, use of Dimension [place] TBIL is not recommended. Chloride [Moles/Vol] 106 mmol/L 98-107 [facility] Eosinophils/100 WBC (Bld) 2.9 % 0-5 [facility] Glucose [Mass/Vol] 97 mg/dL 74-106 [facility] Neutrophils (Bld) [#/Vol] 1.9 10*3/uL 2.0-7.7 [facility] Neutrophils/100 WBC (Bld) 49.4 % 47-70 [facility] Potassium [Moles/Vol] 4.6 mmol/L 3.5-5.1 [facility] Protein [Mass/Vol] 6.6 g/dL 6.4-8.2 [facility] Sodium [Moles/Vol] 137 mmol/L 136-145 [facility] WBC (Bld) [#/Vol] 3.8 10*3/uL 4.4-11.0 [facility] Blood erythrocytes count (nu mber/volume)Ordered By: Susanne Lopez on 05-08-2023 RBC (Bld) [#/Vol] 3.44 10*6/uL 4.2-5.4 [facility] Blood hemoglobin measurement (mass/volume)Ordered By: Susanne Lopez on 05-08-2023 Hemoglobin (Bld) [Mass/Vol] 11.2 g/dL 12.0-15.0 [facility] Blood lymphocytes/100 leukoc ytesOrdered By: Susanne Lopez on 05-08-2023 Lymphocytes/100 WBC (Bld) 44.7 % 19-41 [facility] Blood monocytes/100 leukocyt esOrdered By: Susanne Lopez on 05-08-2023 Monocytes/100 WBC (Bld) 1.1 % 0-10 [facility] Blood platelet mean volumeOr dered By: Susanne Lopez on 05-08-2023 Platelet mean volume (Bld) [Entitic vol] 8.6 fL 6.2-12.0 [facility] Determination of erythrocyte mean corpuscular volume (MCV)Ordered By: Susanne Lopez on 05-08-2023 MCV (RBC) [Entitic vol] 97.4 fL 81-99 [facility] Hematocrit Auto (Bld) [Volum e fraction]Ordered By: Susanne Lopez on 05-08-2023 Hematocrit (Bld) [Volume fraction] 33.5 % 37-47 [facility] Laboratory - Chemistry and C hemistry - challengeOrdered By: Susanne Lopez on 05-08-2023 ALP [Catalytic activity/Vol] 89 U/L 45-117 [facility] ALT [Catalytic activity/Vol] 18 U/L 13-56 [facility] CO2 [Moles/Vol] 26.0 mmol/L 21.0-32.0 [facility] Globulin (S) [Mass/Vol] 3.3 g/dL 2.2-4.2 [facility] Urea nitrogen/Creatinine [Mass ratio] 18.4 mg/mg 10-20 [facility] Laboratory - Chemistry and C hemistry - challengeOrdered By: Alex Love on 05-08-2023 Magnesium [Mass/Vol] 2.1 mg/dL 1.6-2.6 [facility] Laboratory - Hematology and Cell countsOrdered By: Susanne Lopez on 05-08-2023 Erythrocyte distribution width (RBC) [Entitic vol] 46.7 fL 35.1-43.9 [facility] Erythrocyte distribution width (RBC) [Ratio] 13.8 % 11.6-14.6 [facility] Immature granulocytes/100 WBC (Bld) 0.800 % 0.0-0.9 [facility] Comment on above: IG% - Immature Granu locytes (promyelocytes, myelocytes and metamyelocytes) > 1% indicates that a LEFT SHIFT is Present. MCH (RBC) [Entitic mass] 32.6 pg 27.0-32.0 [facility] Nucleated RBC/100 WBC (Bld) [Ratio] 0 % 0-5 [facility] MCHC Auto (RBC) [Mass/Vol]Or dered By: Susanne Lopez on 05-08-2023 MCHC (RBC) [Mass/Vol] 33.4 g/dL 32-36 [facility] No Panel InformationOrdered By: Susanne Lopez on 05-08-2023 Estimated Creatinine Clearance Calc 31.81 ml/min [facility] Estimated GFR (MDRD) Amer 66 mL/min >60 [facility] Comment on above: GFR Calc Estimated GFR (MDRD) Non-Af Amer 55 mL/min >60 [facility] Comment on above: Non- GFR Calc Reactive Lymphocytes RARE [facility] Platelets bldOrdered By: Jes Lopez on 05-08-2023 Platelets (Bld) [#/Vol] 114 10*3/uL 150-450 [facility] Serum or plasma albumin brandan urement (mass/volume)Ordered By: Susanne Lopez on 05-08-2023 Albumin [Mass/Vol] 3.3 g/dL 3.2-5.0 [facility] Serum or plasma albumin/glob ulin mass ratioOrdered By: Susanne Lopez on 05-08-2023 Albumin/Globulin [Mass ratio] 1.0 {ratio} 0.9-2.4 [facility] Serum or plasma calcium brandan urement (mass/volume)Ordered By: Susanne Lopez on 05-08-2023 Calcium [Mass/Vol] 8.7 mg/dL 8.5-10.1 [facility] Serum or plasma creatinine m easurement (mass/volume)Ordered By: Susanne Lopez on 05-08-2023 Creatinine [Mass/Vol] 1.03 mg/dL 0.55-1.02 [facility] Comment on above: The validity of the calculated GFR & GFRAA in patients over 70 years has not been determined. Clinical correlation is essential. Serum or plasma urea nitroge n measurement (mass/volume)Ordered By: Susanne Lopez on 05-08-2023 Urea nitrogen [Mass/Vol] 19 mg/dL 7-18 [facility] Thin prep Papanicolaou smear with manual screeningOrdered By: [facility] Jessica on 05-08-2023 Thin prep Papanicolaou smear with manual screening 13 U/L 15-37 [facility] Thin prep Papanicolaou smear with manual screening 5 5-15 [facility] Absolute lymphocyte countOrd ered By: Susanne Lopez on 04-24-2023 Lymphocytes Auto (Unsp spec) [#/Vol] 1.80 10*3/uL 0.83-4.51 [facility] Basophil percentageOrdered B y: Susanne Lopez on 04-24-2023 Basophils/100 WBC (Bld) 0.6 % 0-1 [facility] Eosinophils/100 WBC (Bld) 2.7 % 0-5 [facility] Neutrophils (Bld) [#/Vol] 5.1 10*3/uL 2.0-7.7 [facility] Neutrophils/100 WBC (Bld) 65.4 % 47-70 [facility] WBC (Bld) [#/Vol] 7.8 10*3/uL 4.4-11.0 [facility] Basophil percentageOrdered B y: Alex Love on 04-24-2023 Bilirubin [Mass/Vol] 0.60 mg/dL 0.20-1.00 [facility] Comment on above: For patients on eltr ombopag therapy, use of Dimension [place] TBIL is not recommended. Chloride [Moles/Vol] 107 mmol/L 98-107 [facility] Glucose [Mass/Vol] 101 mg/dL 74-106 [facility] Comment on above: Fasting Glucose resu lt from 100 to 125 mg/dL suggests IMPAIRED HOMEOSTASIS per A.D.A. criteria. Potassium [Moles/Vol] 4.6 mmol/L 3.5-5.1 [facility] Protein [Mass/Vol] 6.5 g/dL 6.4-8.2 [facility] Sodium [Moles/Vol] 140 mmol/L 136-145 [facility] Blood erythrocytes count (nu mber/volume)Ordered By: Susanne Lopez on 04-24-2023 RBC (Bld) [#/Vol] 4.02 10*6/uL 4.2-5.4 [facility] Blood hemoglobin measurement (mass/volume)Ordered By: Susanne Lopez on 04-24-2023 Hemoglobin (Bld) [Mass/Vol] 12.1 g/dL 12.0-15.0 [facility] Blood lymphocytes/100 leukoc ytesOrdered By: Susanne Lopez on 04-24-2023 Lymphocytes/100 WBC (Bld) 23.1 % 19-41 [facility] Blood monocytes/100 leukocyt esOrdered By: Susanne Lopez on 04-24-2023 Monocytes/100 WBC (Bld) 7.7 % 0-10 [facility] Blood platelet mean volumeOr dered By: Susanne Lopez on 04-24-2023 Platelet mean volume (Bld) [Entitic vol] 8.3 fL 6.2-12.0 [facility] Determination of erythrocyte mean corpuscular volume (MCV)Ordered By: Susanne Lopez on 04-24-2023 MCV (RBC) [Entitic vol] 97.0 fL 81-99 [facility] Direct bilirubinOrdered By: Alex Love on 04-24-2023 Bilirubin.direct [Mass/Vol] 0.15 mg/dL 0.00-0.30 [facility] Hematocrit Auto (Bld) [Volum e fraction]Ordered By: Susanne Lopez on 04-24-2023 Hematocrit (Bld) [Volume fraction] 39.0 % 37-47 [facility] Laboratory - Chemistry and C hemistry - challengeOrdered By: Alex Love on 04-24-2023 ALP [Catalytic activity/Vol] 86 U/L 45-117 [facility] ALT [Catalytic activity/Vol] 11 U/L 13-56 [facility] CO2 [Moles/Vol] 29.0 mmol/L 21.0-32.0 [facility] Globulin (S) [Mass/Vol] 3.3 g/dL 2.2-4.2 [facility] Urea nitrogen/Creatinine [Mass ratio] 18.3 mg/mg 10-20 [facility] Laboratory - Hematology and Cell countsOrdered By: Susanne Lopez on 04-24-2023 Erythrocyte distribution width (RBC) [Entitic vol] 47.5 fL 35.1-43.9 [facility] Erythrocyte distribution width (RBC) [Ratio] 13.2 % 11.6-14.6 [facility] Immature granulocytes/100 WBC (Bld) 0.500 % 0.0-0.9 [facility] Comment on above: IG% - Immature Granu locytes (promyelocytes, myelocytes and metamyelocytes) > 1% indicates that a LEFT SHIFT is Present. MCH (RBC) [Entitic mass] 30.1 pg 27.0-32.0 [facility] Nucleated RBC/100 WBC (Bld) [Ratio] 0 % 0-5 [facility] MCHC Auto (RBC) [Mass/Vol]Or dered By: Susanne Lopez on 04-24-2023 MCHC (RBC) [Mass/Vol] 31.0 g/dL 32-36 [facility] No Panel InformationOrdered By: Alex Love on 04-24-2023 Estimated Creatinine Clearance Calc 37.23 ml/min [facility] Estimated GFR (MDRD) Amer 80 mL/min >60 [facility] Comment on above: GFR Calc Estimated GFR (MDRD) Non-Af Amer 66 mL/min >60 [facility] Comment on above: Non- GFR Calc Platelets bldOrdered By: Jes Lopez on 04-24-2023 Platelets (Bld) [#/Vol] 235 10*3/uL 150-450 [facility] Serum or plasma albumin brandan urement (mass/volume)Ordered By: Alex Love on 04-24-2023 Albumin [Mass/Vol] 3.2 g/dL 3.2-5.0 [facility] Serum or plasma albumin/glob ulin mass ratioOrdered By: Susanne Lopez on 04-24-2023 Albumin/Globulin [Mass ratio] 0.9 {ratio} 0.9-2.4 [facility] Serum or plasma calcium brandan urement (mass/volume)Ordered By: Alex Love on 04-24-2023 Calcium [Mass/Vol] 8.7 mg/dL 8.5-10.1 [facility] [facility] Serum or plasma creatinine m easurement (mass/volume)Ordered By: Alex Love on 04-24-2023 Creatinine [Mass/Vol] 0.88 mg/dL 0.55-1.02 [facility] Comment on above: The validity of the calculated GFR & GFRAA in patients over 70 years has not been determined. Clinical correlation is essential. Serum or plasma urea nitroge n measurement (mass/volume)Ordered By: Alex Love on 04-24-2023 Urea nitrogen [Mass/Vol] 16 mg/dL 7-18 [facility] Thin prep Papanicolaou smear with manual screeningOrdered By: Alex Love on 04-24-2023 Thin prep Papanicolaou smear with manual screening 12 U/L 15-37 [facility] Thin prep Papanicolaou smear with manual screening 4 5-15 [facility] No Panel InformationOrdered By: Alex Love on 04-09-2023 Miscellaneous Test Comment MAILED SPECIMEN [facility] Miscellaneous Test See comment [facility] Comment on above: Sent directly to [facility] facility per ordering physician. Absolute lymphocyte countOrd ered By: Nery Maloney on 04-03-2023 Lymphocytes Auto (Unsp spec) [#/Vol] 2.06 10*3/uL 0.83-4.51 [facility] Basophil percentageOrdered B y: Nery Maloney on 04-03-2023 Basophils/100 WBC (Bld) 1.0 % 0-1 [facility] Chloride [Moles/Vol] 108 mmol/L 98-107 [facility] Eosinophils/100 WBC (Bld) 2.8 % 0-5 [facility] Glucose [Mass/Vol] 96 mg/dL 74-106 [facility] Neutrophils (Bld) [#/Vol] 4.2 10*3/uL 2.0-7.7 [facility] Neutrophils/100 WBC (Bld) 58.0 % 47-70 [facility] Potassium [Moles/Vol] 4.5 mmol/L 3.5-5.1 [facility] Sodium [Moles/Vol] 139 mmol/L 136-145 [facility] WBC (Bld) [#/Vol] 7.2 10*3/uL 4.4-11.0 [facility] Blood erythrocytes count (nu mber/volume)Ordered By: Nery Maloney on 04-03-2023 RBC (Bld) [#/Vol] 4.04 10*6/uL 4.2-5.4 [facility] Blood hemoglobin measurement (mass/volume)Ordered By: Nery Maloney on 04-03-2023 Hemoglobin (Bld) [Mass/Vol] 12.3 g/dL 12.0-15.0 [facility] Blood lymphocytes/100 leukoc ytesOrdered By: Nery Maloney on 04-03-2023 Lymphocytes/100 WBC (Bld) 28.8 % 19-41 [facility] Blood monocytes/100 leukocyt esOrdered By: Nery Maloney on 04-03-2023 Monocytes/100 WBC (Bld) 9.1 % 0-10 [facility] Blood platelet mean volumeOr dered By: Nery Maloney on 04-03-2023 Platelet mean volume (Bld) [Entitic vol] 8.4 fL 6.2-12.0 [facility] Determination of erythrocyte mean corpuscular volume (MCV)Ordered By: Nery Maloney on 04-03-2023 MCV (RBC) [Entitic vol] 97.0 fL 81-99 [facility] Hematocrit Auto (Bld) [Volum e fraction]Ordered By: Nery Maloney on 04-03-2023 Hematocrit (Bld) [Volume fraction] 39.2 % 37-47 [facility] Laboratory - Chemistry and C hemistry - challengeOrdered By: Nery Maloney on 04-03-2023 CO2 [Moles/Vol] 28.0 mmol/L 21.0-32.0 [facility] Free T4 [Mass/Vol] 1.14 ng/dL 0.76-1.46 [facility] Urea nitrogen/Creatinine [Mass ratio] 19.2 mg/mg 10-20 [facility] Laboratory - Hematology and Cell countsOrdered By: Nery Maloney on 04-03-2023 Erythrocyte distribution width (RBC) [Entitic vol] 47.9 fL 35.1-43.9 [facility] Erythrocyte distribution width (RBC) [Ratio] 13.5 % 11.6-14.6 [facility] Immature granulocytes/100 WBC (Bld) 0.300 % 0.0-0.9 [facility] Comment on above: IG% - Immature Granu locytes (promyelocytes, myelocytes and metamyelocytes) > 1% indicates that a LEFT SHIFT is Present. MCH (RBC) [Entitic mass] 30.4 pg 27.0-32.0 [facility] Nucleated RBC/100 WBC (Bld) [Ratio] 0 % 0-5 [facility] MCHC Auto (RBC) [Mass/Vol]Or dered By: Nery Maloney on 04-03-2023 MCHC (RBC) [Mass/Vol] 31.4 g/dL 32-36 [facility] No Panel InformationOrdered By: Nery Maloney on 04-03-2023 Estimated GFR (MDRD) Amer 74 mL/min >60 [facility] Comment on above: GFR Calc Estimated GFR (MDRD) Non-Af Amer 61 mL/min >60 [facility] Comment on above: Non- GFR Calc Free Triiodothyronine (T3) pg/dL 2.7 pg/mL 2.18-3.98 [facility] Thyroid Stimulating Hormone (TSH) 0.28 uIU/mL 0.358-3.74 [facility] Platelets bldOrdered By: Jose M Maloney on 04-03-2023 Platelets (Bld) [#/Vol] 241 10*3/uL 150-450 [facility] Serum or plasma calcium brandan urement (mass/volume)Ordered By: Nery Maloney on 04-03-2023 Calcium [Mass/Vol] 9.3 mg/dL 8.5-10.1 [facility] Serum or plasma creatinine m easurement (mass/volume)Ordered By: Nery Maloney on 04-03-2023 Creatinine [Mass/Vol] 0.94 mg/dL 0.55-1.02 [facility] Comment on above: The validity of the calculated GFR & GFRAA in patients over 70 years has not been determined. Clinical correlation is essential. Serum or plasma urea nitroge n measurement (mass/volume)Ordered By: Nery Maloney on 04-03-2023 Urea nitrogen [Mass/Vol] 18 mg/dL 7-18 [facility] Thin prep Papanicolaou smear with manual screeningOrdered By: Nery Maloney on 04-03-2023 Thin prep Papanicolaou smear with manual screening 3 5-15 [facility] CNPNon 04-02-2023 CNPN Telephone (GENSF) -- ANAY SAMUELS ([id number]) 1945 F Date Time Provider Department 04/02/23 RAND CALZADA During your visit today, we recorded the following information about you: Rand Calzada DO 04/02/2023 1:06 PM Signed I called and spoke to both Arvind and Dr. Love. Discussed medical management as next steps per tumor board recommendations. Surgery not indicated at this time. Tumor board note was faxed to Dr. Love's office [phone]. Rand Calzada DO Breast Surgeon Allergies As of Date: 04/02/2023 Noted Allergy Reaction HYDROCODONE-ACETAMINOPHEN 12/09/2021 14 - Other: See Comments Comments: Severe headache Date Reviewed: 03/23/2023 Reviewed by: Ivette Mcginnis LPN - Fully Assessed Reason for Visit: Results [95] Prescriptions as of 04/02/2023 - anastrozole (ARIMIDEX) 1 mg tablet Take 1 mg by mouth once daily. - iv contrast (will be provided with radiology test) CT Chest W -Inject, intravenously, once for 1 dose.No IV access, insert saline lock prior to the beginning of sedation, infusion, injection of imaging exam. Discontinue saline lock post exam. If Pt. has a central line or IVAD, may access for administration according to line specific nursing protocol. Once exam is complete flush line and de-access according to line specific nursing protocol in the CT contrast administration guidelines link. - apixaban (ELIQUIS ORAL) Take 2.5 mg by mouth twice daily. - Cholecalciferol, Vitamin D3, 125 mcg (5,000 unit) cap Take 1 capsule by mouth once daily. - folic acid 1 mg tablet Take 1 mg by mouth once daily. - metoprolol succinate ER (TOPROL XL) 25 mg 24 hr tablet Take 25 mg by mouth once daily. - pantoprazole DR (PROTONIX) 40 mg tablet Take 40 mg by mouth twice daily. - potassium chloride SR (MICRO-K) 10 mEq CR capsule Take 10 mEq by mouth twice daily. - aspirin 81 mg chewable tablet Take 1 tablet by mouth once daily. - hydroCHLOROthiazide (HYDRODIURIL, ESIDRIX) 12.5 mg tablet Take 12.5 mg by mouth once daily. - losartan (COZAAR) 50 mg tablet Take 50 mg by mouth once daily. Problem List As Of Date 04/02/2023 Noted Resolved Breast cancer metastasized to axillary lymph no*12/17/2021 Thyroid mass [E07.9] 12/17/2021 Localized enlarged lymph nodes [R59.0] 10/06/2022 Encounter Status:Closed by RAND CALZADA on 04/02/23 [facility] HER2 (4B5) BY IHCon 03-28-20 HER2 (4B5) BY IHC Breast [facility]omarkers RESULTS: Estrogen Receptor (ER) Positive 95% Stain intensity: moderate to strong Internal controls: absent External controls: appropriately stained Progesterone Receptor (MT) Positive 10% Stain intensity: weak Internal controls: absent External controls: appropriately stained HER2 (ERBB2) IMMUNOHISTOCHEMISTRY ASSAY Interpretation: NEGATIVE for HER2 (ERBB2) Expression Score: 1+ Percentage of cells with uniform intense complete membrane staining: N/A (reported for 2+ and 3+ scores only) Specimen: Skin biopsy Block evaluated: A1 Tissue Analyzed: Invasive carcinoma Tumor Grade: Breast Tumor Grade: Intermediate to High Grade Specimen fixative: 10% neutral buffered formalin Length of fixation: not provided Cold ischemia time: not provided Latest ASCO/CAP guidelines for fixation met: indeterminate Reference Range for Hormone Receptors: Staining for MT of greater than or equal to 1% of the tumor cells is considered positive. Staining for ER of 1-10% of the tumor cells is considered low positive. Staining for ER of greater than 10% of the tumor cells is considered positive. Staining for ER or MT of less than 1% is considered negative. Reference Ranges for HER2 (ERBB2) immunohistochemistry: Positive (3+): Complete, intense circumferential membrane staining in >10% of tumor cells Equivocal (2+): Weak to moderate complete membrane staining observed in >10% of tumor cells Negative (1+): Incomplete, faint membrane staining in >10% of tumor cells Negative (0): No staining or incomplete faint membrane staining in [facility] SURGICAL PATHOLOGYon 023 Case Report Surgical Pathology R eport Case: [id number] Authorizing Provider: Rand Calzada DO Collected: 03/23/2023 03:36 PM Ordering Location: General Surgery Received: 03/23/2023 03:43 PM Pathologist: Ivette Mantilla MD Specimen: SKIN PUNCH BIOPSY, left breast [facility] Clinical History new skin lesion [facility] Diagnosis Comment The histological sec tions reveal a proliferation of atypical epithelioid cells intercalated through the collagen bundles with focal duct formation. To better characterize the specimen, additional immunohistochemical stains are performed on block A1 and compared with appropriate controls at the [facility]. The lesional cells are strongly and diffusely positive for CK7 and GATA3. There is strong diffuse positive staining for ER (qualitative). There is weak focal positive staining for MT and HER2 (qualitative). 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 Breast markers will be reported in an addendum. Laboratory Developed Test (LDT) Disclaimer: Performance characteristics of immunohistochemical, immunofluorescent and chromogenic in-situ hybridization tests have been determined by the performing laboratory within [facility] s [facility] [place] ([facility], [facility], [facility], [facility], [facility], or [facility]) in a manner consistent with CLIA requirements. One or more of these tests have not been cleared or approved by the FDA. [facility] is regulated under CLIA as qualified to perform high-complexity testing. These tests are used for clinical purposes. They should not be regarded as investigational or for research. Positive and negative controls stain appropriately. [facility] FINAL DIAGNOSIS A. Skin, left breast , punch biopsy: -Metastatic breast adenocarcinoma, see comment. JK/RTM 03/26/2023 [facility] Gross Description A. SKIN PUNCH BIOPSY Received in formalin is a cylindrical segment of skin and subcutaneous tissue measuring 0.4 x 0.2 x 0.5 cm. On the skin surface there is a 0.3 solitario cm solitario flat area. The specimen is not sectioned. Totally submitted in one cassette. Gross examination performed at [facility], [address] [place] [address] FFS 03/23/2023 9:57 PM [facility] Performing Lab Diagnostic interpret ation performed at [facility], [address], [facility] [address] CLIA# [id number] Flight Operations Engineer: Ld Vang M.D. [facility] Grant 03-23-2023 CNOV Office Visit (GENSF) -- AANY SAMUELS ([id number]) 1945 F Date Time Provider Department 03/23/23 2:00 PM RAND CALZADA During your visit today, we recorded the following information about you: Rand Calzada DO 03/31/2023 9:18 PM Signed REASON FOR TODAY'S VISIT: Patient presents with: Established Patient: Review pet scan HISTORY of PRESENT ILLNESS: Anay Leonel Samuels is a 78 year old female with a LEFT breast locally advanced breast cancer involving the chest wall and axillary lymph nodes. Presented 11/2021 and has been on neoadjuvant endocrine therapy. ER+MT+HER2- [id number] (thyroid/cervical LN) HISTORY: Patient was last seen for a follow up on 09/28/2022 At that time, she had showed improvement with the use of AI, but clinically, unresectable, with a mass involving her chest wall. In the interim, she continues on AI She is here to discuss the findings on a recent PET scan performed at [facility] on 02/27/2023. Review of findings reported both persistent and newly identified viable neoplasm within the left breast manifesting interim metabolic progression. ROS: HEENT: Denies vision changes or headaches BREAST: Denies palpating any new breast masses, no breast pain, no skin changes, no nipple discharge ABD: Denies any abdominal pain or new changes in bowel habits MUSCULOSKELETAL: Denies any bone, joint or muscle pain IMAGING: PET scan shows increase areas of uptake new in her breast, continued intermal mammary, axillary and infraclavicular LN EXAMINATION: GENERAL:well-nourished, healthy, alert and oriented x 3, calm SKIN:warm, dry, skin color, texture, turgor normal HEAD/EYES:normocephalic, atraumatic, and anicteric NECK: supple, symmetrical, no thyromegaly RESPIRATORY: Respirations regular AND non-labored ABDOMEN: soft, nondistended. No hepatomegaly., No masses MUSCULOSKELETAL: No observed limitations in range of motion of upper extremities. Patient ambulates independently BREASTS: The Patient was examined in the upright and supine positions. Breasts are symmetric. There are no significant fibrocystic changes. Patient's cup size is D The patient was examined in the upright and supine position. RIGHT breast soft, no dominant masses, nipple everted, no discharge, no skin changes RIGHT axilla no palpable axillary lymphadenopathy LEFT breast soft, the dominant mass @ the medial inferior fold is less prominent, improved overlying skin, still adherent to the chest wall, nipple everted, nipple areolar complex with skin changes consistent with skin involvement of cancer LEFT axilla no palpable axillary lymphadenopathy appreciated today, no lymphedema Regional Lymph Nodes: There is no concerning supraclavicular, infraclavicular or cervical lymphadenopathy. PROCEDURE: LEFT areolar skin punch biopsy Patient verified by: Name and Date of Site of the procedure confirmed:yes Staff involved: Zheng The breast was prepped and draped in a sterile manner. 3cc of lidocaine 1% was injected for local anesthesia. A 2 mm skin punch biopsy was used. 1 area of skin was removed and placed in formalin. A 4.0 Chromic was used to close the skin. A bandage was applied. The patient tolerated the procedure well. IMPRESSION: Anay Samuels is a 77 year old female who presented 11/2021 with a LEFT breast locally advanced breast cancer involving the chest wall and axillary lymph nodes. She has been on neoadjuvant endocrine therapy (anastrozole). Initial improvement, but now appears to have new breast masses with involvement of her NAC skin - skin punch bx performed today PLAN: She had a LEFT breast skin punch biopsy performed today. Discussed this is cancer, but repeat bx to determine receptor status is important. I will present her case at tumor board - as she appears still unresectable for cure. I will touch base with her and her medical oncologist. She has our names and numbers to stay in touch if she has any questions, concerns or problems in the interim. Rand Calzada, DO Breast Surgeon cc: Erik Nguyen MD [address] [address] Ivette Mcginnis LPN 03/23/2023 2:11 PM Signed Review pet scan Last mammogram on: 12/08/21 bilateral Results: see report Is the patient active on [employer] Yes Electronically Signed By: Ivette Mcginnis LPN In Department: GENERAL SURGERY REVIEW OF PATIENT HISTORY: OB History T0 L6 SAB0 IAB0 Ectopic0 Multiple0 Live Births0 Comment: Menarche: 8; Age at 1st : 18; Hysterectomy at age 66 due to Uterine prolapse FAMILY HISTORY Problem Relation Age of Onset Cancer Maternal Grandmother liver Breast Cancer Paternal Grandmother 89 Cancer Paternal Grandfather stomach PAST MEDICAL HISTORY Diagn (more content not included)... [facility] HER2 (4B5) BY IHCon 03-23-20 23 HER2 (4B5) BY IHC [facility] Comment on above: Order Comment: Speci men Type: TISSUE SPECIMEN Ordering Facility: [facility] Address: [place] [address] Result Comment: [place] [facility] RESULTS: Estrogen Receptor (ER) Positive 95% Stain intensity: moderate to strong Internal controls: absent External controls: appropriately stained Progesterone Receptor (MT) Positive 10% Stain intensity: weak Internal controls: absent External controls: appropriately stained HER2 (ERBB2) IMMUNOHISTOCHEMISTRY ASSAY Interpretation: NEGATIVE for HER2 (ERBB2) Expression Score: 1+ Percentage of cells with uniform intense complete membrane staining: N/A (reported for 2+ and 3+ scores only) Specimen: Skin biopsy Block evaluated: A1 Tissue Analyzed: Invasive carcinoma Tumor Grade: Breast Tumor Grade: Intermediate to High Grade Specimen fixative: 10% neutral buffered formalin Length of fixation: not provided Cold ischemia time: not provided Latest ASCO/CAP guidelines for fixation met: indeterminate Reference Range for Hormone Receptors: Staining for MT of greater than or equal to 1% of the tumor cells is considered positive. Staining for ER of 1-10% of the tumor cells is considered low positive. Staining for ER of greater than 10% of the tumor cells is considered positive. Staining for ER or MT of less than 1% is considered negative. Reference Ranges for HER2 (ERBB2) immunohistochemistry: Positive (3+): Complete, intense circumferential membrane staining in >10% of tumor cells Equivocal (2+): Weak to moderate complete membrane staining observed in >10% of tumor cells Negative (1+): Incomplete, faint membrane staining in >10% of tumor cells Negative (0): No staining or incomplete faint membrane staining in Interpretation comments: Consideration of follow-up testing for HER2 (ERBB2) status by fluorescence in situ hybridization (FISH) for all equivocal (2+) results is recommended and will be ordered as a reflex test if FISH was not a testing methodology already employed. Note for ER low results For malignancy with a low level (1%-10%) of ER expression by immunohistochemistry, there are limited data on the overall benefit of endocrine therapies for a patient with low level (1%-10%) ER expression, but they currently suggest possible benefit, so patients are considered eligible for endocrine treatment. There are data that indicate invasive cancers with these results are heterogeneous in both behavior and biology and often have gene expression profiles more similar to ER-negative cancers. Estrogen and Progesterone Receptor Testing in Breast Cancer: [place] Society of Clinical On[employer]/College of [place] [employer] Guideline Update. SHAMAR Vallejo, Ceasar MASTERS, et al., Arch Pathol Lab Med. 2019Oct 27. METHODS: Estrogen Receptor: Food and Drug Administration (FDA) cleared: [employer], [place], [place] Primary Antibody: SP1 Progesterone Receptor: FDA cleared: [employer], [place], [place] Primary Antibody: IE2 HER2 (ERBB2) by IHC: FDA cleared: [place] Primary Antibody:4B5 The hormone receptor tests were performed and reported in accordance with the guidelines approved by the [place] Society of Clinical Oncologists and the College of [place] [employer]. Genevieve IBANEZ et al. Estrogen and Progesterone Receptor Testing in Breast Cancer: [place] [employer] of Clinical Oncologists and the College of [place] [employer] Guideline Update. Arch Pathol Lab Med. 2019;144(5):545-563. PMID: [id number]. The hormone receptor assays have been internally validated on decalcified tissues (for [facility] only). Estrogen and progesterone receptor results are valid if tissue was processed according to ASCO/CAP guidelines. Antibody and Detection System: [employer] anti-HER2 rabbit monoclonal antibody (clone 4B5), detected with the [employer] [place] DAB Detection Kit (indirect, biotin-free detection system): [employer], [place], [place]. Control Slides: Cell line controls with high, equivocal, low and negative HER2 protein expression, along with known positive control tissue as well as the patient's tissue are evaluated for HER2 expression. A separate slide of the patient's tissue is similarly processed without antibody (negative control); slides were reviewed and showed appropriate staining. The HER2 immunohistochemistry assay was developed, validated, scored, and reported in accordance with the guidelines approved by the [place] [employer] of Clinical Oncologists and the College of [place] [employer]. Aiyana WOOD et al. Arch Pathol Lab Med. 2018;1379(9) The HER2 assay has not been validated on decalcified tissues. Results should be interpreted with caution given the possibility of false negative results on decalcified specimens. Laboratory Developed Test (LDT) Disclaimer: Performance characteristics of immunohistochemical, immunofluorescent and chromogenic in-situ hybridization tests have been determined by the performing laboratory within [facility]???s [facility] [place] ([place] (more content not included)... Performed By: #### L [id number], S #### [facility] CLIA [id number] [facility] [address] [place] SURGICAL PATHOLOGYon 023 CASE REPORT [facility] Comment on above: Order Comment: Blanche castaneda Type: TISSUE SPECIMEN Ordering Facility: [facility] Address: [address] [place] [address] Result Comment: Surg ical Pathology Report Case: [id number] Authorizing Provider: Rand Calzada DO Collected: 03/23/2023 03:36 PM Ordering Location: General Surgery Received: 03/23/2023 03:43 PM Pathologist: Ivette Mantilla MD Specimen: SKIN PUNCH BIOPSY, left breast Performed By: #### L [id number], S #### [facility] CLIA [id number] [address] [place] [address] CLINICAL HISTORY new skin lesion Normal [facility] Comment on above: Order Comment: Blanche castaneda Type: TISSUE SPECIMEN Ordering Facility: [facility] Address: [address] [place] [address] Performed By: #### L [id number], S #### [facility] CLIA [id number] [address] [place] [address] DIAGNOSIS COMMENT [facility] Comment on above: Order Comment: Blanche castaneda Type: TISSUE SPECIMEN Ordering Facility: [facility] Address: [address] [place] [address] Result Comment: The histological sections reveal a proliferation of atypical epithelioid cells intercalated through the collagen bundles with focal duct formation. To better characterize the specimen, additional immunohistochemical stains are performed on block A1 and compared with appropriate controls [facility] [facility] The lesional cells are strongly and diffusely positive for CK7 and GATA3. There is strong diffuse positive staining for ER (qualitative). There is weak focal positive staining for MT and HER2 (qualitative). 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 Breast markers will be reported in an addendum. Laboratory Developed Test (LDT) Disclaimer: Performance characteristics of immunohistochemical, immunofluorescent and chromogenic in-situ hybridization tests have been determined by the performing laboratory within [facility]???[facility] Pathology and Laboratory Medicine [place] ([facility], [facility], [facility], [facility], [facility], or [facility]) in a manner consistent with CLIA requirements. One or more of these tests have not been cleared or approved by the FDA. [facility] is regulated under CLIA as qualified to perform high-complexity testing. These tests are used for clinical purposes. They should not be regarded as investigational or for research. Positive and negative controls stain appropriately. Performed By: #### L [id number], S #### [facility] CLIA [id number] [facility] [address] STATES OF [facility] FINAL DIAGNOSIS Normal [facility] Comment on above: Order Comment: Speci men Type: TISSUE SPECIMEN Ordering Facility: [facility] Address: [address] [place] [address] Result Comment: Sd. Silvana perea, left breast, punch biopsy: -Metastatic breast adenocarcinoma, see comment. COLLIN/RTCha 03/26/2023 Performed By: #### L [id number], S #### [facility] CLIA [id number] [facility] [address] OF [facility] FINAL PERFORMING LAB Normal [facility] Comment on above: Order Comment: Speci men Type: TISSUE SPECIMEN Ordering Facility: [facility] Address: [address] [address] Result Comment: Diag nostic interpretation performed at [facility], [address] [address] CLIA# [id number] Flight Operations Engineer: Ld Vang M.D. Performed By: #### L [id number], S #### [facility] CLIA [id number] [facility] [address] STATES OF [place] GROSS DESCRIPTION Normal [facility] Comment on above: Order Comment: Speci men Type: TISSUE SPECIMEN Ordering Facility: [facility] Address: [address] [place] [address] Result Comment: A. S KIN PUNCH BIOPSY Received in formalin is a cylindrical segment of skin and subcutaneous tissue measuring 0.4 x 0.2 x 0.5 cm. On the skin surface there is a 0.3 solitario cm solitario flat area. The specimen is not sectioned. Totally submitted in one cassette. Gross examination performed at [facility], [address] [place] [address] FFS 03/23/2023 9:57 PM Performed By: #### L [id number], S #### [facility] CLIA [id number] [address] [place] [address] [place] [id number] [id number] [facility] CNPNargis 03-02-2023 CNPN Telephone (GENSF) -- ANAY SAMUELS ([id number]) 1945 F Date Time Provider Department 03/02/23 RAND CALZADA During your visit today, we recorded the following information about you: Brandi Bhakta 03/02/2023 2:49 PM Signed This message is specifically to document patient chart. Patient requested appointment with Dr Calzada when she is in town in March. Sent message to Dr Calzada and Staff. Directed to call patient and offer appointment with medical team. Called patient and offered her an appointment with the breast medical staff. Patient stated that she would call back. Thank you Ivette Mcginnis LPN 03/02/2023 3:07 PM Signed Returned pt call, Offered pt appointment with on March 23 at 2 pm at the [facility]. She accepted this date time. I have informed her I received her pet scan reports, will have images downloaded prior to her appointment. She thanked me for the return call. Ivette Mcignnis LPN Allergies As of Date: 03/02/2023 Noted Allergy Reaction HYDROCODONE-ACETAMINOPHEN 12/09/2021 14 - Other: See Comments Comments: Severe headache Date Reviewed: 09/28/2022 Reviewed by: Ivette Mcginnis LPN - Fully Assessed Reason for Visit: Appointment [[id number]] Prescriptions as of 03/02/2023 - anastrozole (ARIMIDEX) 1 mg tablet Take 1 mg by mouth once daily. - iv contrast (will be provided with radiology test) CT Chest W -Inject, intravenously, once for 1 dose.No IV access, insert saline lock prior to the beginning of sedation, infusion, injection of imaging exam. Discontinue saline lock post exam. If Pt. has a central line or IVAD, may access for administration according to line specific nursing protocol. Once exam is complete flush line and de-access according to line specific nursing protocol in the CT contrast administration guidelines link. - apixaban (ELIQUIS ORAL) Take 2.5 mg by mouth twice daily. - Cholecalciferol, Vitamin D3, 125 mcg (5,000 unit) cap Take 1 capsule by mouth once daily. - folic acid 1 mg tablet Take 1 mg by mouth once daily. - metoprolol succinate ER (TOPROL XL) 25 mg 24 hr tablet Take 25 mg by mouth once daily. - pantoprazole DR (PROTONIX) 40 mg tablet Take 40 mg by mouth twice daily. - potassium chloride SR (MICRO-K) 10 mEq CR capsule Take 10 mEq by mouth twice daily. - aspirin 81 mg chewable tablet Take 1 tablet by mouth once daily. - hydroCHLOROthiazide (HYDRODIURIL, ESIDRIX) 12.5 mg tablet Take 12.5 mg by mouth once daily. - losartan (COZAAR) 50 mg tablet Take 50 mg by mouth once daily. Problem List As Of Date 03/02/2023 Noted Resolved Breast cancer metastasized to axillary lymph no*12/17/2021 Thyroid mass [E07.9] 12/17/2021 Localized enlarged lymph nodes [R59.0] 10/06/2022 Encounter Status:Closed by IVETTE MCGINNIS on 03/02/23 [facility] Absolute lymphocyte countOrd ered By: Dr. Love on 03-01-2023 Lymphocytes Auto (Unsp spec) [#/Vol] 2.16 10*3/uL 0.83-4.51 [facility] Basophil percentageOrdered B y: Dr. Love on 03-01-2023 Basophils/100 WBC (Bld) 0.8 % 0-1 [facility] Bilirubin [Mass/Vol] 0.40 mg/dL 0.20-1.00 [facility] Comment on above: For patients on eltr ombopag therapy, use of Dimension [place] TBIL is not recommended. Chloride [Moles/Vol] 108 mmol/L 98-107 [facility] Eosinophils/100 WBC (Bld) 2.8 % 0-5 [facility] Glucose [Mass/Vol] 87 mg/dL 74-106 [facility] LDH [Catalytic activity/Vol] 189 U/L 84-246 [facility] Neutrophils (Bld) [#/Vol] 4.1 10*3/uL 2.0-7.7 [facility] Neutrophils/100 WBC (Bld) 57.4 % 47-70 [facility] Potassium [Moles/Vol] 4.1 mmol/L 3.5-5.1 [facility] Protein [Mass/Vol] 6.9 g/dL 6.4-8.2 [facility] Sodium [Moles/Vol] 141 mmol/L 136-145 [facility] WBC (Bld) [#/Vol] 7.1 10*3/uL 4.4-11.0 [facility] Blood erythrocytes count (nu mber/volume)Ordered By: Dr. Love on 03-01-2023 RBC (Bld) [#/Vol] 4.11 10*6/uL 4.2-5.4 [facility] Blood hemoglobin measurement (mass/volume)Ordered By: Dr. Love on 03-01-2023 Hemoglobin (Bld) [Mass/Vol] 12.5 g/dL 12.0-15.0 [facility] Blood lymphocytes/100 leukoc ytesOrdered By: Dr. Love on 03-01-2023 Lymphocytes/100 WBC (Bld) 30.3 % 19-41 [facility] Blood monocytes/100 leukocyt esOrdered By: Dr. Love on 03-01-2023 Monocytes/100 WBC (Bld) 8.3 % 0-10 [facility] Blood platelet mean volumeOr dered By: Dr. Love on 03-01-2023 Platelet mean volume (Bld) [Entitic vol] 8.3 fL 6.2-12.0 [facility] Determination of erythrocyte mean corpuscular volume (MCV)Ordered By: Dr. Love on 03-01-2023 MCV (RBC) [Entitic vol] 96.8 fL 81-99 [facility] Hematocrit Auto (Bld) [Volum e fraction]Ordered By: Dr. Love on 03-01-2023 Hematocrit (Bld) [Volume fraction] 39.8 % 37-47 [facility] Laboratory - Chemistry and C hemistry - challengeOrdered By: Dr. Love on 03-01-2023 ALP [Catalytic activity/Vol] 75 U/L 45-117 [facility] ALT [Catalytic activity/Vol] 22 U/L 13-56 [facility] CO2 [Moles/Vol] 26.0 mmol/L 21.0-32.0 [facility] Globulin (S) [Mass/Vol] 3.5 g/dL 2.2-4.2 [facility] Urea nitrogen/Creatinine [Mass ratio] 21.6 mg/mg 10-20 [facility] Laboratory - Hematology and Cell countsOrdered By: Dr. Love on 03-01-2023 Erythrocyte distribution width (RBC) [Entitic vol] 48.0 fL 35.1-43.9 [facility] Erythrocyte distribution width (RBC) [Ratio] 13.5 % 11.6-14.6 [facility] Immature granulocytes/100 WBC (Bld) 0.400 % 0.0-0.9 [facility] Comment on above: IG% - Immature Granu locytes (promyelocytes, myelocytes and metamyelocytes) > 1% indicates that a LEFT SHIFT is Present. MCH (RBC) [Entitic mass] 30.4 pg 27.0-32.0 [facility] Nucleated RBC/100 WBC (Bld) [Ratio] 0 % 0-5 [facility] MCHC Auto (RBC) [Mass/Vol]Or dered By: Dr. Love on 03-01-2023 MCHC (RBC) [Mass/Vol] 31.4 g/dL 32-36 [facility] No Panel InformationOrdered By: Dr. Love on 03-01-2023 Miscellaneous Test See comment [facility] Comment on above: Sent directly to [facility] facility per ordering physician. Estimated GFR (MDRD) Amer 75 mL/min >60 [facility] Comment on above: GFR Calc Estimated GFR (MDRD) Non-Af Amer 62 mL/min >60 [facility] Comment on above: Non- GFR Calc Platelets bldOrdered By: Dr. Love on 03-01-2023 Platelets (Bld) [#/Vol] 221 10*3/uL 150-450 [facility] Serum or plasma albumin brandan urement (mass/volume)Ordered By: Dr. Love on 03-01-2023 Albumin [Mass/Vol] 3.4 g/dL 3.2-5.0 [facility] Serum or plasma albumin/glob ulin mass ratioOrdered By: Dr. Love on 03-01-2023 Albumin/Globulin [Mass ratio] 1.0 {ratio} 0.9-2.4 [facility] Serum or plasma calcium brandan urement (mass/volume)Ordered By: Dr. Love on 03-01-2023 Calcium [Mass/Vol] 9.0 mg/dL 8.5-10.1 [facility] Serum or plasma creatinine m easurement (mass/volume)Ordered By: Dr. Love on 03-01-2023 Creatinine [Mass/Vol] 0.93 mg/dL 0.55-1.02 [facility] Comment on above: The validity of the calculated GFR & GFRAA in patients over 70 years has not been determined. Clinical correlation is essential. Serum or plasma urea nitroge n measurement (mass/volume)Ordered By: Dr. Love on 03-01-2023 Urea nitrogen [Mass/Vol] 20 mg/dL -18 [facility] Thin prep Papanicolaou smear with manual screeningOrdered By: Dr. Love on 03-01-2023 Thin prep Papanicolaou smear with manual screening 17 U/L 15-37 [facility] Thin prep Papanicolaou smear with manual screening 7 5-15 [facility] CNOV[facility] 09-28-20[facility] ANAY SAMUELS ([id number]) 1945 F Date Time Provider Department 09/28/22 3:30 PM RAND CALZADA During your visit today, we recorded the following information about you: Ivette Mcginnis LPN 09/28/2022 4:33 PM Signed Follow up Did patient bring outside records to appt today? : No Last mammogram on: 12/08/21 bilateral Results: see report Is the patient active on MyChart Yes Electronically Signed By: Ivette Mcginnis LPN In Department: [facility] REVIEW OF PATIENT HISTORY: OB History T0 L6 SAB0 IAB0 Ectopic0 Multiple0 Live Births0 Comment: Menarche: 8; Age at 1st : 18; Hysterectomy at age 66 due to Uterine prolapse FAMILY HISTORY Problem Relation Age of Onset Cancer Maternal Grandmother liver Breast Cancer Paternal Grandmother 89 Cancer Paternal Grandfather stomach PAST MEDICAL HISTORY Diagnosis Date Arthritis Atrial fibrillation (HCC) on eliquis HTN (hypertension) Malignant neoplasm of overlapping sites of left female breast (HCC) 11/2021 PAST SURGICAL HISTORY Procedure Laterality Date REMOVAL GALLBLADDER TOTAL KNEE REPLACEMENT Bilateral US BREAST NEEDLE CORE BIOPSY LT Left 11/2021 VAGINAL HYSTERECTOMY Social History Tobacco Use Smoking status: Never Smokeless tobacco: Never Vaping Use Vaping Use: Never used Rand Calzada DO 10/06/2022 6:16 AM Signed REASON FOR TODAY'S VISIT: Patient presents with: Established Patient HISTORY of PRESENT ILLNESS: Anay Samuels is a 77 year old female who presented for a 2nd opinion in 11/2021 for a LEFT breast locally advanced cancer 4.2 x 4.4 x 3.4 cm @ 9:00, 6 cm FN. +LN mets. + internal mammary lymph nodes cT4N3(internal mammary), she had positive axillary and intramammary lymph nodes and cancer extends through her skin in her chest wall muscle. In October, she had a mammogram followed by an US of the left breast that showed a 4.4 x 4.2 cm mass in the left breast in the deep medial aspect plus a 2.7 x 3.4 abnormally appearing lymph node in the left axilla plus at least 2 more abnormal nodes. She subsequently underwent biopsy of those lesions. 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 For this reasons patient states, she pursued no work-up was obtained on this left breast mass until earlier this year. PET CT that demonstrated FDG avidity in the left axillary, retropectoral and external-internal mammary lymph node distributions and no other significant hypermetabolic lesions in abdomen or pelvis. She was seen by Oncology at [facility] with recommendations for possibly hormonal therapy, she also was seen by Surgery (Dr. Carvalho) who recommended against surgery upfront. She was referred to [facility] for second opinion. HISTORY: She was presented to the Tumor Board and neoadjuvant endocrine therapy, Anastrazole,was recommended Patient has been followed by Dr. Alex Love (Medical Oncologist) at [facility] ([facility] [place]). Remains on Anastrozole without any side effects and reports the left lump has decreased in size. Tolerating the medication well. Overall, has stayed pretty healthy since I last saw her. Presents with her today. IMAGIN09/14/22 [facility] 0539 - CT CHEST W IVCON / ACCESSION # EXAMINATION: CHEST CT WITH CONTRAST CLINICAL HISTORY: History of breast cancer Comparison: CT chest 11/07/2021 RESULT: Limitations: None. Lines, tubes, and devices: None. Lung parenchyma and airways: No consolidation. Stable scarring or atelectasis in the medial right middle lobe and lingula. No suspicious pulmonary nodule. The central airways are patent. Pleural space: No pleural effusion. No pleural thickening. Lower neck, lymph nodes, and mediastinum: Heterogeneous thyroid parenchyma. Stable appearance of bilateral thyroid nodules. Stable subcentimeter mediastinal, hilar and right axillary lymph nodes. Decreased size of left axillary lymph nodes. Largest left axillary lymph node measures 1.4 x 1.3 cm (2:55), previously 2.4 x 2.3 cm. Heart, pericardium, and thoracic vessels: The thoracic aorta and main pulmonary artery are normal in caliber. The cardiac chambers are normal in size. Coronary artery atherosclerotic calcifications are noted, although the study is not optimized for coronary assessment. No pericardial effusion or thickening. Bones and soft tissues: Generalized osteopenia. No acute fracture or dest (more content not included)... Normal [facility] CT Chest W contrast Nicole IMPRESSION: 1. No suspicious pulmonary nodules 2. Decreased size of left axillary lymph nodes 3. Decreased size of a lobulated mass in the medial left breast Fitter/Welder: ALBERT Transcribe Date/Time: Sep 16 2022 4:33P Dictated by : ISABELLA ORTIZ MD This examination was interpreted and the report reviewed and electronically signed by: ISABELLA ORTIZ MD on Sep 16 2022 4:43PM [facility] DIVISION OF RADIOLOGY * * *Final Report* * * DATE OF EXAM: Sep 14 2022 10:36AM [facility] 0539 - CT CHEST W IVCON / PROCEDURE REASON: Localized enlarged lymph nodes * * * * Physician Interpretation * * * * EXAMINATION: CHEST CT WITH CONTRAST CLINICAL HISTORY: History of breast cancer Technique: Spiral CT acquisition of the chest from the thoracic inlet to the upper abdomen following IV contrast. MQ: CTCW_6 Contrast: 50 mL Omnipaque [address] Radiation dose: Integrated Dose-length product (DLP) for this visit = 457 mGy*cm CT Dose Reduction Employed: Automated exposure control(AEC) and iterative recon Comparison: CT chest 11/07/2021 RESULT: Limitations: None. Lines, tubes, and devices: None. Lung parenchyma and airways: No consolidation. Stable scarring or atelectasis in the medial right middle lobe and lingula. No suspicious pulmonary nodule. The central airways are patent. Pleural space: No pleural effusion. No pleural thickening. Lower neck, lymph nodes, and mediastinum: Heterogeneous thyroid parenchyma. Stable appearance of bilateral thyroid nodules. Stable subcentimeter mediastinal, hilar and right axillary lymph nodes. Decreased size of left axillary lymph nodes. Largest left axillary lymph node measures 1.4 x 1.3 cm (2:55), previously 2.4 x 2.3 cm. Heart, pericardium, and thoracic vessels: The thoracic aorta and main pulmonary artery are normal in caliber. The cardiac chambers are normal in size. Coronary artery atherosclerotic calcifications are noted, although the study is not optimized for coronary assessment. No pericardial effusion or thickening. Bones and soft tissues: Generalized osteopenia. No acute fracture or destructive osseous lesion. Degenerative disease of the thoracic spine. Lobulated mass in the medial left breast measures 3.2 x 2.5 cm (2:90), previously 4 x 3.6 cm. There is left breast skin thickening. Upper abdomen: No acute abnormality in the imaged upper abdomen. Small sliding hiatal hernia. Rn Cardiac Rehab (topogram) images: No additional findings. DIVISION OF RADIOLOGY Provider, [facility] - 09/16/2022 * * *Final Report* * * DATE OF EXAM: Sep 14 2022 10:36AM [facility] 0539 - CT CHEST W IVCON / PROCEDURE REASON: Localized enlarged lymph nodes * * * * Physician Interpretation * * * * EXAMINATION: CHEST CT WITH CONTRAST CLINICAL HISTORY: History of breast cancer Technique: Spiral CT acquisition of the chest from the thoracic inlet to the upper abdomen following IV contrast. MQ: CTCW_6 Contrast: 50 mL Omnipaque [address] Radiation dose: Integrated Dose-length product (DLP) for this visit = 457 mGy*cm CT Dose Reduction Employed: Automated exposure control(AEC) and iterative recon Comparison: CT chest 11/07/2021 RESULT: Limitations: None. Lines, tubes, and devices: None. Lung parenchyma and airways: No consolidation. Stable scarring or atelectasis in the medial right middle lobe and lingula. No suspicious pulmonary nodule. The central airways are patent. Pleural space: No pleural effusion. No pleural thickening. Lower neck, lymph nodes, and mediastinum: Heterogeneous thyroid parenchyma. Stable appearance of bilateral thyroid nodules. Stable subcentimeter mediastinal, hilar and right axillary lymph nodes. Decreased size of left axillary lymph nodes. Largest left axillary lymph node measures 1.4 x 1.3 cm (2:55), previously 2.4 x 2.3 cm. Heart, pericardium, and thoracic vessels: The thoracic aorta and main pulmonary artery are normal in caliber. The cardiac chambers are normal in size. Coronary artery atherosclerotic calcifications are noted, although the study is not optimized for coronary assessment. No pericardial effusion or thickening. Bones and soft tissues: Generalized osteopenia. No acute fracture or destructive osseous lesion. Degenerative disease of the thoracic spine. Lobulated mass in the medial left breast measures 3.2 x 2.5 cm (2:90), previously 4 x 3.6 cm. There is left breast skin thickening. Upper abdomen: No acute abnormality in the imaged upper abdomen. Small sliding hiatal hernia. Rn Cardiac Rehab (topogram) images: No additional findings. IMPRESSION IMPRESSION: 1. No suspicious pulmonary nodules 2. Decreased size of left axillary lymph nodes 3. Decreased size of a lobulated mass in the medial left breast Fitter/Welder: PSCB Transcribe Date/Time: Sep 16 2022 4:33P Dictated by : ISABELLA ORTIZ MD This examination was interpreted and the report reviewed and electronically signed by: ISABELLA ORTIZ MD on Sep 16 2022 4:43PM EST [facility] CT Chest W contrast IVOrdere d By: [facility] Provider on 09-16-2022 [facility] CREATININE, BLOOD (POC)on Creatinine [Mass/Vol] 0.60 mg/dL 0.6 - 1.3 mg/dL [facility] eGFR (POCT) mL/min/1.73 m2 [facility] Location:[facility]iology [facility], [id number] [place] [address], [address] [place] [address] POINT OF CARE [facility] CT CHEST W IVCONon CT CHEST W IVCON * * *Final Report* * * DATE OF EXAM: Sep 14 2022 10:36AM [facility] 0539 - CT CHEST W IVCON / PROCEDURE REASON: Localized enlarged lymph nodes * * * * Physician Interpretation * * * * EXAMINATION: CHEST CT WITH CONTRAST CLINICAL HISTORY: History of breast cancer Technique: Spiral CT acquisition of the chest from the thoracic inlet to the upper abdomen following IV contrast. MQ: CTCW_6 Contrast: 50 mL Omnipaque [address] Radiation dose: Integrated Dose-length product (DLP) for this visit = 457 mGy*cm CT Dose Reduction Employed: Automated exposure control(AEC) and iterative recon Comparison: CT chest 11/07/2021 RESULT: Limitations: None. Lines, tubes, and devices: None. Lung parenchyma and airways: No consolidation. Stable scarring or atelectasis in the medial right middle lobe and lingula. No suspicious pulmonary nodule. The central airways are patent. Pleural space: No pleural effusion. No pleural thickening. Lower neck, lymph nodes, and mediastinum: Heterogeneous thyroid parenchyma. Stable appearance of bilateral thyroid nodules. Stable subcentimeter mediastinal, hilar and right axillary lymph nodes. Decreased size of left axillary lymph nodes. Largest left axillary lymph node measures 1.4 x 1.3 cm (2:55), previously 2.4 x 2.3 cm. Heart, pericardium, and thoracic vessels: The thoracic aorta and main pulmonary artery are normal in caliber. The cardiac chambers are normal in size. Coronary artery atherosclerotic calcifications are noted, although the study is not optimized for coronary assessment. No pericardial effusion or thickening. Bones and soft tissues: Generalized osteopenia. No acute fracture or destructive osseous lesion. Degenerative disease of the thoracic spine. Lobulated mass in the medial left breast measures 3.2 x 2.5 cm (2:90), previously 4 x 3.6 cm. There is left breast skin thickening. Upper abdomen: No acute abnormality in the imaged upper abdomen. Small sliding hiatal hernia. Rn Cardiac Rehab (topogram) images: No additional findings. IMPRESSION: 1. No suspicious pulmonary nodules 2. Decreased size of left axillary lymph nodes 3. Decreased size of a lobulated mass in the medial left breast Fitter/Welder: ALBERT Transcribe Date/Time: Sep 16 2022 4:33P Dictated by : ISABELLA ORTIZ MD This examination was interpreted and the report reviewed and electronically signed by: ISABELLA ORTIZ MD on Sep 16 2022 4:43PM EST [id number] Normal [facility] CT Chest W contrast Nicole Radiology Study observation (narrative) [facility] CNOVon 06-15-2022 CNOV Office Visit (WMHLST ) -- ANAY SAMUELS ([id number]) 1945 F Date Time Provider Department 06/15/22 10:00 AM RAND CALZADA WMHLST During your visit today, we recorded the following information about you: Rand Calzada DO 06/22/2022 10:23 PM Signed REASON FOR TODAY'S VISIT: Patient presents with: Established Patient HISTORY of PRESENT ILLNESS: Anay Samuels is a 76 year female who presented for a 2nd opinion in 11/2021 for a LEFT breast locally advanced cancer 4.2 x 4.4 x 3.4 cm @ 9:00, 6 cm FN. +LN mets. + internal mammary lymph nodes CT4N3(internal mammary), she had positive axillary and intramammary lymph nodes and cancer extends through her skin in her chest wall muscle. In October, she had a mammogram followed by an US of the left breast that showed a 4.4 x 4.2 cm mass in the left breast in the deep medial aspect plus a 2.7 x 3.4 abnormally appearing lymph node in the left axilla plus at least 2 more abnormal nodes. She subsequently underwent biopsy of those lesions. 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 For this reasons patient states, she pursued no work-up was obtained on this left breast mass until earlier this year. PET CT that demonstrated FDG avidity in the left axillary, retropectoral and external-internal mammary lymph node distributions and no other significant hypermetabolic lesions in abdomen or pelvis. She was seen by Oncology at OSH with recommendations for possibly hormonal therapy, she also was seen by Surgery (Dr. Carvalho) who recommended against surgery upfront. She was referred to [facility] for second opinion. Has not started any therapy yet. HISTORY: She was presented to the Tumor Board and neoadjuvant endocrine therapy, Anastrazole,was recommended Patient has been followed by Dr. Alex Love (Medical Oncologist) at [facility] ([facility]). Remains on Anastrozole without any side effects and reports the left lump has decreased in size. Patient reports the thyroid nodules were work up and without findings She underwent repeat diagnostic imaging earlier today to check for response to treatment and is here to discuss the imaging findings as well as her follow up plan. ROS: HEENT: Denies vision changes or headaches BREAST: Denies palpating any new breast masses, no breast pain, no skin changes, no nipple discharge ABD: Denies any abdominal pain or new changes in bowel habits MUSCULOSKELETAL: Denies any bone, joint or muscle pain IMAGING: UNILATERAL LEFT DIGITAL DIAGNOSTIC MAMMOGRAM TOMOSYNTHESIS WITH CAD: 06/15/2022 HISTORY: Known left breast cancer, on hormonal therapy Multiple Diagnoses/ / Short term follow up left breast-Abnormal Mammogram. RESULT: TECHNIQUE: The study was acquired using full field digital technology and interpreted from soft copy. Digital Breast Tomosynthesis (DBT) images were obtained and used to assist in the interpretation of this examination. Current study was also evaluated with a Computer Aided Detection (CAD). Comparison is made to exams dated: 12/08/2021 ultrasound and 12/08/2021 mammogram - [facility]. There are scattered fibroglandular elements in left breast. Unchanged skin thickening, most prominent in ther periareolar region and lower inner left breast. There is a mass in the left breast middle depth inner region seen on the craniocaudal view only. Finding is best noted on tomographic CC slice 30. There also is a lymph node in the left breast posterior depth upper region seen on the mediolateral oblique view only. This is decreased in size. Additionally, there is a high density mass in the left breast posterior depth inner region seen on the craniocaudal view only. Finding is best noted on tomographic CC slice 18. This is decreased in size. No other significant masses or calcifications are seen in the breast. IMPRESSION: INCOMPLETE: NEEDS ADDITIONAL IMAGING EVALUATION The mass in the left breast middle depth inner region seen on the craniocaudal view only is indeterminate. An ultrasound is recommended. The lymph node in the left breast posterior depth upper region seen on the mediolateral oblique view only is indeterminate. An ultrasound is recommended. The high density mass in the left breast posterior depth inner region seen on the craniocaudal view only is a known biopsy positive for malignancy. An ultrasound is recommended. LIMITED ULTRASOUND OF LEFT BREAST: (more content not included)... [facility] DBT Breast - left diagnostic for implanton 06-15-2022 * * *Final Report* * * DATE OF EXAM: Jun 15 2022 9:56AM SSW [id number] - [facility] DIAG W TAVON LT / PROCEDURE REASON: multiple diagnoses * * * * Physician Interpretation * * * * RESULT: #[id number] - [facility] DIAG W TAVON LT #[id number] - [facility] US BREAST LTD LT UNILATERAL LEFT DIGITAL DIAGNOSTIC MAMMOGRAM TOMOSYNTHESIS WITH CAD: 06/15/2022 HISTORY: Known left breast cancer, on hormonal therapy Multiple Diagnoses/ / Short term follow up left breast-Abnormal Mammogram. RESULT: TECHNIQUE: The study was acquired using full field digital technology and interpreted from soft copy. Digital Breast Tomosynthesis (DBT) images were obtained and used to assist in the interpretation of this examination. Current study was also evaluated with a Computer Aided Detection (CAD). Comparison is made to exams dated: 12/08/2021 ultrasound and 12/08/2021 mammogram - [facility]. There are scattered fibroglandular elements in left breast. Unchanged skin thickening, most prominent in ther periareolar region and lower inner left breast. There is a mass in the left breast middle depth inner region seen on the craniocaudal view only. Finding is best noted on tomographic CC slice 30. There also is a lymph node in the left breast posterior depth upper region seen on the mediolateral oblique view only. This is decreased in size. Additionally, there is a high density mass in the left breast posterior depth inner region seen on the craniocaudal view only. Finding is best noted on tomographic CC slice 18. This is decreased in size. No other significant masses or calcifications are seen in the breast. DIVISION OF RADIOLOGY Provider, [facility] - 06/15/2022 * * *Final Report* * * DATE OF EXAM: Jun 15 2022 9:56AM [facility] 0628 - [facility] DIAG W TAVON LT / PROCEDURE REASON: multiple diagnoses * * * * Physician Interpretation * * * * RESULT: #[id number] - [facility] DIAG W TAVON LT #[id number] - [facility] US BREAST LTD LT UNILATERAL LEFT DIGITAL DIAGNOSTIC MAMMOGRAM TOMOSYNTHESIS WITH CAD: 06/15/2022 HISTORY: Known left breast cancer, on hormonal therapy Multiple Diagnoses/ / Short term follow up left breast-Abnormal Mammogram. RESULT: TECHNIQUE: The study was acquired using full field digital technology and interpreted from soft copy. Digital Breast Tomosynthesis (DBT) images were obtained and used to assist in the interpretation of this examination. Current study was also evaluated with a Computer Aided Detection (CAD). Comparison is made to exams dated: 12/08/2021 ultrasound and 12/08/2021 mammogram - [facility]. There are scattered fibroglandular elements in left breast. Unchanged skin thickening, most prominent in ther periareolar region and lower inner left breast. There is a mass in the left breast middle depth inner region seen on the craniocaudal view only. Finding is best noted on tomographic CC slice 30. There also is a lymph node in the left breast posterior depth upper region seen on the mediolateral oblique view only. This is decreased in size. Additionally, there is a high density mass in the left breast posterior depth inner region seen on the craniocaudal view only. Finding is best noted on tomographic CC slice 18. This is decreased in size. No other significant masses or calcifications are seen in the breast. IMPRESSION IMPRESSION: INCOMPLETE: NEEDS ADDITIONAL IMAGING EVALUATION The mass in the left breast middle depth inner region seen on the craniocaudal view only is indeterminate. An ultrasound is recommended. The lymph node in the left breast posterior depth upper region seen on the mediolateral oblique view only is indeterminate. An ultrasound is recommended. The high density mass in the left breast posterior depth inner region seen on the craniocaudal view only is a known biopsy positive for malignancy. An ultrasound is recommended. LIMITED ULTRASOUND OF LEFT BREAST: 06/15/2022 RESULT: Comparison is made to exams dated: 12/08/2021 ultrasound and 12/08/2021 mammogram - [facility]. Real-time ultrasound of the left breast was performed. Delgado scale images of the real-time examination were reviewed. There is 0.8 cm x 0.5 cm x 0.8 cm irregular mass in the left breast at 9 o'clock 4 cm from the nipple. This irregular mass is hypoechoic. This correlates with mammography findings. Color flow imaging demonstrates that there is no vascularity present. There also is 2.1 cm x 1.6 cm x 2.4 cm irregular mass in the left breast at 9 o'clock 6 cm from the nipple. This irregular mass is hypoechoic. This abnormality is decreased in size and correlates with mammography findings. There is an associated biopsy clip. Color flow imaging demonstrates that there is vascularity present. Additionally, there is 0.5 cm x 0.5 cm x 0.5 cm left axillary lymph node. This abnormality is decreased in size. There is an associated biopsy clip. There are two additional abnormal axillary nodes seen measuring 0.7 cm and 1.3 cm. IMPRESSION: SUSPICIOUS FINDING - BIOPSY SHOULD BE CONSIDERED The 0.8 cm x 0.5 cm x 0.8 cm irregular mass in the left breast at 9 o'clock is suspicious of malignancy. A surgical consult is recommended. The 2.1 cm x 1.6 cm x 2.4 cm irregular mass in the left breast at 9 o'clock is a known biopsy positive for malignancy. A surgical consult is recommended. The 0.5 cm x 0.5 cm x 0.5 cm left axillary lymph node is a known biopsy positive for malignancy. A surgical consult is recommended. SUMMARY: The patient is under the care of Dr. Calzada. Geremias carver/cyrus:06/15/2022 13:02:36 Multiple national specialty organizations have released breast cancer screening guidelines for women at average risk for developing breast cancer - guidelines that are based on both evidence and opinion, yet differ on when to start and how often to screen for breast cancer. With representation from Breast Imaging, Internal Medicine, Women's Health, Family Medicine, and Medical/Surgical Oncology, the [facility] has carefully reviewed the data and reached the following consensus: 1) All women should engage in shared decision-making with their providers to decide when to start and how often to screen; 2) All women should have the opportunity to start screening mammography at age 40; 3) For women ages 45-55, we recommend annual screening mammograms; 4) For women ages 55 and over, we support both the transition from an annual to a biennial int (more content not included)... [facility] LOLIS MONTES DE OCA LTon 022 [facility] [employer] LT * * *Final Report* * * DATE OF EXAM: Jun 15 2022 9:56AM SSW 0628 - [facility] DIAG W TAVON LT / PROCEDURE REASON: multiple diagnoses * * * * Physician Interpretation * * * * RESULT: #[id number] - [facility] DIAG W TAVON LT #[id number] - [facility] US BREAST LTD LT UNILATERAL LEFT DIGITAL DIAGNOSTIC MAMMOGRAM TOMOSYNTHESIS WITH CAD: 06/15/2022 HISTORY: Known left breast cancer, on hormonal therapy Multiple Diagnoses/ / Short term follow up left breast-Abnormal Mammogram. RESULT: TECHNIQUE: The study was acquired using full field digital technology and interpreted from soft copy. Digital Breast Tomosynthesis (DBT) images were obtained and used to assist in the interpretation of this examination. Current study was also evaluated with a Computer Aided Detection (CAD). Comparison is made to exams dated: 12/08/2021 ultrasound and 12/08/2021 mammogram - [facility]. There are scattered fibroglandular elements in left breast. Unchanged skin thickening, most prominent in ther periareolar region and lower inner left breast. There is a mass in the left breast middle depth inner region seen on the craniocaudal view only. Finding is best noted on tomographic CC slice 30. There also is a lymph node in the left breast posterior depth upper region seen on the mediolateral oblique view only. This is decreased in size. Additionally, there is a high density mass in the left breast posterior depth inner region seen on the craniocaudal view only. Finding is best noted on tomographic CC slice 18. This is decreased in size. No other significant masses or calcifications are seen in the breast. IMPRESSION: INCOMPLETE: NEEDS ADDITIONAL IMAGING EVALUATION The mass in the left breast middle depth inner region seen on the craniocaudal view only is indeterminate. An ultrasound is recommended. The lymph node in the left breast posterior depth upper region seen on the mediolateral oblique view only is indeterminate. An ultrasound is recommended. The high density mass in the left breast posterior depth inner region seen on the craniocaudal view only is a known biopsy positive for malignancy. An ultrasound is recommended. LIMITED ULTRASOUND OF LEFT BREAST: 06/15/2022 RESULT: Comparison is made to exams dated: 12/08/2021 ultrasound and 12/08/2021 mammogram - [facility]. Real-time ultrasound of the left breast was performed. Delgado scale images of the real-time examination were reviewed. There is 0.8 cm x 0.5 cm x 0.8 cm irregular mass in the left breast at 9 o'clock 4 cm from the nipple. This irregular mass is hypoechoic. This correlates with mammography findings. Color flow imaging demonstrates that there is no vascularity present. There also is 2.1 cm x 1.6 cm x 2.4 cm irregular mass in the left breast at 9 o'clock 6 cm from the nipple. This irregular mass is hypoechoic. This abnormality is decreased in size and correlates with mammography findings. There is an associated biopsy clip. Color flow imaging demonstrates that there is vascularity present. Additionally, there is 0.5 cm x 0.5 cm x 0.5 cm left axillary lymph node. This abnormality is decreased in size. There is an associated biopsy clip. There are two additional abnormal axillary nodes seen measuring 0.7 cm and 1.3 cm. IMPRESSION: SUSPICIOUS FINDING - BIOPSY SHOULD BE CONSIDERED The 0.8 cm x 0.5 cm x 0.8 cm irregular mass in the left breast at 9 o'clock is suspicious of malignancy. A surgical consult is recommended. The 2.1 cm x 1.6 cm x 2.4 cm irregular mass in the left breast at 9 o'clock is a known biopsy positive for malignancy. A surgical consult is recommended. The 0.5 cm x 0.5 cm x 0.5 cm left axillary lymph node is a known biopsy positive for malignancy. A surgical consult is recommended. SUMMARY: The patient is under the care of Dr. Calzada. Geremias carver/cyrus:06/15/2022 13:02:36 Multiple national specialty organizations have released breast cancer screening guidelines for women at average risk for developing breast cancer - guidelines that are based on both evidence and opinion, yet differ on when to start and how often to screen for breast cancer. With representation from Breast Imaging, Internal Medicine, Women's Health, Family Medicine, and Medical/Surgical Oncology, the [facility] has carefully reviewed the data and reached the following consensus: 1) All women should engage in shared decision-making with their providers to decide when to start and how often to screen; 2) All women should have the opportunity to start screening mammography at age 40; 3) For women ages 45-55, we recommend annual screening mammograms; 4) For women ages 55 and over, we support both the transition from an annual to a biennial interval if this aligns more with patient's values and preferences, or continuation with annual screening; 5) All women should discuss with their pr (more content not included)... Normal [facility] US BREAST LTD LTon 06-15 [facility] US BREAST LTD LT * * *Final Report* * * DATE OF EXAM: Jun 15 2022 10:20AM SSW 0593 - [facility] [employer] BREAST LTD LT / PROCEDURE REASON: multiple diagnoses * * * * Physician Interpretation * * * * RESULT: #[id number] - [facility] DIAG W TAVON LT #[id number] - [facility] [employer] BREAST LTD LT UNILATERAL LEFT DIGITAL DIAGNOSTIC MAMMOGRAM TOMOSYNTHESIS WITH CAD: 06/15/2022 HISTORY: Known left breast cancer, on hormonal therapy Multiple Diagnoses/ / Short term follow up left breast-Abnormal Mammogram. RESULT: TECHNIQUE: The study was acquired using full field digital technology and interpreted from soft copy. Digital Breast Tomosynthesis (DBT) images were obtained and used to assist in the interpretation of this examination. Current study was also evaluated with a Computer Aided Detection (CAD). Comparison is made to exams dated: 12/08/2021 ultrasound and 12/08/2021 mammogram - [facility]. There are scattered fibroglandular elements in left breast. Unchanged skin thickening, most prominent in ther periareolar region and lower inner left breast. There is a mass in the left breast middle depth inner region seen on the craniocaudal view only. Finding is best noted on tomographic CC slice 30. There also is a lymph node in the left breast posterior depth upper region seen on the mediolateral oblique view only. This is decreased in size. Additionally, there is a high density mass in the left breast posterior depth inner region seen on the craniocaudal view only. Finding is best noted on tomographic CC slice 18. This is decreased in size. No other significant masses or calcifications are seen in the breast. IMPRESSION: INCOMPLETE: NEEDS ADDITIONAL IMAGING EVALUATION The mass in the left breast middle depth inner region seen on the craniocaudal view only is indeterminate. An ultrasound is recommended. The lymph node in the left breast posterior depth upper region seen on the mediolateral oblique view only is indeterminate. An ultrasound is recommended. The high density mass in the left breast posterior depth inner region seen on the craniocaudal view only is a known biopsy positive for malignancy. An ultrasound is recommended. LIMITED ULTRASOUND OF LEFT BREAST: 06/15/2022 RESULT: Comparison is made to exams dated: 12/08/2021 ultrasound and 12/08/2021 mammogram - [facility]. Real-time ultrasound of the left breast was performed. Delgado scale images of the real-time examination were reviewed. There is 0.8 cm x 0.5 cm x 0.8 cm irregular mass in the left breast at 9 o'clock 4 cm from the nipple. This irregular mass is hypoechoic. This correlates with mammography findings. Color flow imaging demonstrates that there is no vascularity present. There also is 2.1 cm x 1.6 cm x 2.4 cm irregular mass in the left breast at 9 o'clock 6 cm from the nipple. This irregular mass is hypoechoic. This abnormality is decreased in size and correlates with mammography findings. There is an associated biopsy clip. Color flow imaging demonstrates that there is vascularity present. Additionally, there is 0.5 cm x 0.5 cm x 0.5 cm left axillary lymph node. This abnormality is decreased in size. There is an associated biopsy clip. There are two additional abnormal axillary nodes seen measuring 0.7 cm and 1.3 cm. IMPRESSION: SUSPICIOUS FINDING - BIOPSY SHOULD BE CONSIDERED The 0.8 cm x 0.5 cm x 0.8 cm irregular mass in the left breast at 9 o'clock is suspicious of malignancy. A surgical consult is recommended. The 2.1 cm x 1.6 cm x 2.4 cm irregular mass in the left breast at 9 o'clock is a known biopsy positive for malignancy. A surgical consult is recommended. The 0.5 cm x 0.5 cm x 0.5 cm left axillary lymph node is a known biopsy positive for malignancy. A surgical consult is recommended. SUMMARY: The patient is under the care of Dr. Calzada. Geremias carver/cyrus:06/15/2022 13:02:36 Multiple national specialty organizations have released breast cancer screening guidelines for women at average risk for developing breast cancer - guidelines that are based on both evidence and opinion, yet differ on when to start and how often to screen for breast cancer. With representation from Breast Imaging, Internal Medicine, Women's Health, Family Medicine, and Medical/Surgical Oncology, the [facility] has carefully reviewed the data and reached the following consensus: 1) All women should engage in shared decision-making with their providers to decide when to start and how often to screen; 2) All women should have the opportunity to start screening mammography at age 40; 3) For women ages 45-55, we recommend annual screening mammograms; 4) For women ages 55 and over, we support both the transition from an annual to a biennial interval if this aligns more with patient's values and preferences, or continuation with annual screening; 5) All women should discuss with their (more content not included)... [facility] No Panel InformationOrdered By: [facility] Provider on 06-15-2022 [facility] No Panel Informationon 06-15 Radiology Study observation (narrative) [facility] Breast - left limitedon 0 06-15-2022 * * *Final Report* * * DATE OF EXAM: Jun 15 2022 10:20AM SSW 0593 - [facility] [employer] BREAST LTD LT / PROCEDURE REASON: multiple diagnoses * * * * Physician Interpretation * * * * RESULT: #[id number] - [facility] DIAG W TAVON LT #[id number] - [facility] [employer] BREAST LTD LT UNILATERAL LEFT DIGITAL DIAGNOSTIC MAMMOGRAM TOMOSYNTHESIS WITH CAD: 06/15/2022 HISTORY: Known left breast cancer, on hormonal therapy Multiple Diagnoses/ / Short term follow up left breast-Abnormal Mammogram. RESULT: TECHNIQUE: The study was acquired using full field digital technology and interpreted from soft copy. Digital Breast Tomosynthesis (DBT) images were obtained and used to assist in the interpretation of this examination. Current study was also evaluated with a Computer Aided Detection (CAD). Comparison is made to exams dated: 12/08/2021 ultrasound and 12/08/2021 mammogram - [facility]. There are scattered fibroglandular elements in left breast. Unchanged skin thickening, most prominent in ther periareolar region and lower inner left breast. There is a mass in the left breast middle depth inner region seen on the craniocaudal view only. Finding is best noted on tomographic CC slice 30. There also is a lymph node in the left breast posterior depth upper region seen on the mediolateral oblique view only. This is decreased in size. Additionally, there is a high density mass in the left breast posterior depth inner region seen on the craniocaudal view only. Finding is best noted on tomographic CC slice 18. This is decreased in size. No other significant masses or calcifications are seen in the breast. DIVISION OF RADIOLOGY Provider, Rosangela Aguilar - 06/15/2022 * * *Final Report* * * DATE OF EXAM: Jun 15 2022 10:20AM SSW 0593 - [facility] [employer] BREAST [employer] LT / PROCEDURE REASON: multiple diagnoses * * * * Physician Interpretation * * * * RESULT: #[id number] - [facility] DIAG W TAVON LT #[id number] - [facility] [employer] BREAST LTD LT UNILATERAL LEFT DIGITAL DIAGNOSTIC MAMMOGRAM TOMOSYNTHESIS WITH CAD: 06/15/2022 HISTORY: Known left breast cancer, on hormonal therapy Multiple Diagnoses/ / Short term follow up left breast-Abnormal Mammogram. RESULT: TECHNIQUE: The study was acquired using full field digital technology and interpreted from soft copy. Digital Breast Tomosynthesis (DBT) images were obtained and used to assist in the interpretation of this examination. Current study was also evaluated with a Computer Aided Detection (CAD). Comparison is made to exams dated: 12/08/2021 ultrasound and 12/08/2021 mammogram - [facility]. There are scattered fibroglandular elements in left breast. Unchanged skin thickening, most prominent in ther periareolar region and lower inner left breast. There is a mass in the left breast middle depth inner region seen on the craniocaudal view only. Finding is best noted on tomographic CC slice 30. There also is a lymph node in the left breast posterior depth upper region seen on the mediolateral oblique view only. This is decreased in size. Additionally, there is a high density mass in the left breast posterior depth inner region seen on the craniocaudal view only. Finding is best noted on tomographic CC slice 18. This is decreased in size. No other significant masses or calcifications are seen in the breast. IMPRESSION IMPRESSION: INCOMPLETE: NEEDS ADDITIONAL IMAGING EVALUATION The mass in the left breast middle depth inner region seen on the craniocaudal view only is indeterminate. An ultrasound is recommended. The lymph node in the left breast posterior depth upper region seen on the mediolateral oblique view only is indeterminate. An ultrasound is recommended. The high density mass in the left breast posterior depth inner region seen on the craniocaudal view only is a known biopsy positive for malignancy. An ultrasound is recommended. LIMITED ULTRASOUND OF LEFT BREAST: 06/15/2022 RESULT: Comparison is made to exams dated: 12/08/2021 ultrasound and 12/08/2021 mammogram - [facility]. Real-time ultrasound of the left breast was performed. Delgado scale images of the real-time examination were reviewed. There is 0.8 cm x 0.5 cm x 0.8 cm irregular mass in the left breast at 9 o'clock 4 cm from the nipple. This irregular mass is hypoechoic. This correlates with mammography findings. Color flow imaging demonstrates that there is no vascularity present. There also is 2.1 cm x 1.6 cm x 2.4 cm irregular mass in the left breast at 9 o'clock 6 cm from the nipple. This irregular mass is hypoechoic. This abnormality is decreased in size and correlates with mammography findings. There is an associated biopsy clip. Color flow imaging demonstrates that there is vascularity present. Additionally, there is 0.5 cm x 0.5 cm x 0.5 cm left axillary lymph node. This abnormality is decreased in size. There is an associated biopsy clip. There are two additional abnormal axillary nodes seen measuring 0.7 cm and 1.3 cm. IMPRESSION: SUSPICIOUS FINDING - BIOPSY SHOULD BE CONSIDERED The 0.8 cm x 0.5 cm x 0.8 cm irregular mass in the left breast at 9 o'clock is suspicious of malignancy. A surgical consult is recommended. The 2.1 cm x 1.6 cm x 2.4 cm irregular mass in the left breast at 9 o'clock is a known biopsy positive for malignancy. A surgical consult is recommended. The 0.5 cm x 0.5 cm x 0.5 cm left axillary lymph node is a known biopsy positive for malignancy. A surgical consult is recommended. SUMMARY: The patient is under the care of Dr. Calzada. Geremias carver/cyrus:06/15/2022 13:02:36 Multiple national specialty organizations have released breast cancer screening guidelines for women at average risk for developing breast cancer - guidelines that are based on both evidence and opinion, yet differ on when to start and how often to screen for breast cancer. With representation from Breast Imaging, Internal Medicine, Women's Health, Family Medicine, and Medical/Surgical Oncology, the [facility] has carefully reviewed the data and reached the following consensus: 1) All women should engage in shared decision-making with their providers to decide when to start and how often to screen; 2) All women should have the opportunity to start screening mammography at age 40; 3) For women ages 45-55, we recommend annual screening mammograms; 4) For women ages 55 and over, we support both the transition from an annual to a biennial (more content not included)... [facility] Basophil percentageon 2021 Bilirubin [Mass/Vol] 0.50 mg/dL 0.20-1.00 [facility] Work Phone: Comment on above: For patients on eltr ombopag therapy, use of Dimension [place] TBIL is not recommended. Cholesterol [Mass/Vol] 171 mg/dL <200 [facility] Work Phone: Comment on above: <200 mg/dL Desirable 200-240 mg/dL Borderline >240 mg/dL High Risk Protein [Mass/Vol] 6.6 g/dL 6.4-8.2 [facility] [place] [facility] Work Phone: Triglyceride [Mass/Vol] 65 mg/dL <199 [facility] Work Phone: Comment on above: The drugs N-Acetylcy steine and Metamizole may falsely depress this assay.Serum Triglycerides Reference Interval Normal <150 mg/dL Borderline high 150 - 199 mg/dL High 200 - 499 mg/dL Very High > or = 500 mg/dL Direct bilirubinon 2 Bilirubin.direct [Mass/Vol] 0.15 mg/dL 0.00-0.30 [facility] Work Phone: Laboratory - Chemistry and C hemistry - challengeon 04-01-2022 ALP [Catalytic activity/Vol] 70 U/L 45-117 [facility] Work Phone: ALT [Catalytic activity/Vol] 15 U/L 13-56 [facility] Work Phone: Globulin (S) [Mass/Vol] 3.3 g/dL 2.2-4.2 [facility] Work Phone: Serum or plasma albumin brandan urement (mass/volume)on 04-01-2022 Albumin [Mass/Vol] 3.3 g/dL 3.2-5.0 [facility] [place] [facility] Work Phone: Serum or plasma cholesterol in HDL measurement (mass/volume)on 04-01-2022 Cholesterol in HDL [Mass/Vol] 63 mg/dL >40 [facility] Work Phone: Comment on above: The drugs N-Acetylcy steine and Metamizole may falsely depress this assay. Reference Range HDL <40 mg/dL Low HDL Cholesterol HDL >or= 60 mg/dL High HDL Cholesterol Serum or plasma cholesterol in VLDL measurement (mass/volume)on 04-01-2022 Cholesterol in VLDL [Mass/Vol] 13 mg/dL 5-40 [facility] Work Phone: Serum or plasma low density lipoprotein (LDL) cholesterol measurement (mass/volume)on 04-01-2022 Cholesterol in LDL [Mass/Vol] 95 mg/dL 0-130 [facility] Work Phone: Thin prep Papanicolaou smear with manual screeningon 04-01-2022 Thin prep Papanicolaou smear with manual screening 15 U/L 15-37 [facility] Work Phone: Absolute lymphocyte counton 03-16-2022 Lymphocytes Auto (Unsp spec) [#/Vol] 2.10 10*3/uL 0.83-4.51 [facility] Work Phone: Basophil percentageon 2021 Basophils/100 WBC (Bld) 0.5 % 0-1 [facility] Work Phone: Bilirubin [Mass/Vol] 0.50 mg/dL 0.20-1.00 [facility] Work Phone: Comment on above: For patients on eltr ombopag therapy, use of Dimension [place] TBIL is not recommended. Chloride [Moles/Vol] 106 mmol/L 98-107 [facility] Work Phone: Eosinophils/100 WBC (Bld) 1.9 % 0-5 [facility] Work Phone: [phone] Glucose [Mass/Vol] 108 mg/dL 74-106 [facility] [place] [facility] Work Phone: Comment on above: Fasting Glucose resu lt from 100 to 125 mg/dL suggests IMPAIRED HOMEOSTASIS per A.D.A. criteria. Neutrophils (Bld) [#/Vol] 3.4 10*3/uL 2.0-7.7 [facility] Work Phone: Neutrophils/100 WBC (Bld) 54.6 % 47-70 [facility] Work Phone: [phone] Potassium [Moles/Vol] 4.4 mmol/L 3.5-5.1 [facility] Work Phone: Protein [Mass/Vol] 7.0 g/dL 6.4-8.2 [facility] [place] [facility] Work Phone: Sodium [Moles/Vol] 139 mmol/L 136-145 [facility] [place] [facility] Work Phone: WBC (Bld) [#/Vol] 6.2 10*3/uL 4.4-11.0 [facility] [place] [facility] Work Phone: Blood erythrocytes count (nu mber/volume)on 03-16-2022 RBC (Bld) [#/Vol] 3.95 10*6/uL 4.2-5.4 [facility] Work Phone: Blood hemoglobin measurement (mass/volume)on 03-16-2022 Hemoglobin (Bld) [Mass/Vol] 12.3 g/dL 12.0-15.0 [facility] Work Phone: Blood lymphocytes/100 leukoc yteson 03-16-2022 Lymphocytes/100 WBC (Bld) 33.8 % 19-41 [facility] Work Phone: [phone] Blood monocytes/100 leukocyt eson 03-16-2022 Monocytes/100 WBC (Bld) 8.7 % 0-10 [facility] Work Phone: [phone] Blood platelet mean volumeon 03-16-2022 Platelet mean volume (Bld) [Entitic vol] 8.2 fL 6.2-12.0 [facility] Work Phone: Determination of erythrocyte mean corpuscular volume (MCV)on 03-16-2022 MCV (RBC) [Entitic vol] 97.7 fL 81-99 [facility] Work Phone: Hematocrit Auto (Bld) [Volum e fraction]on 03-16-2022 Hematocrit (Bld) [Volume fraction] 38.6 % 37-47 [facility] Work Phone: Laboratory - Chemistry and C hemistry - challengeon 03-16-2022 ALP [Catalytic activity/Vol] 72 U/L 45-117 [facility] Work Phone: ALT [Catalytic activity/Vol] 19 U/L 13-56 [facility] Work Phone: CO2 [Moles/Vol] 28.0 mmol/L 21.0-32.0 [facility] Work Phone: Globulin (S) [Mass/Vol] 3.5 g/dL 2.2-4.2 [facility] Work Phone: Urea nitrogen/Creatinine [Mass ratio] 25.0 mg/mg 10-20 [facility] Work Phone: Laboratory - Hematology and Cell countson 03-16-2022 Erythrocyte distribution width (RBC) [Entitic vol] 47.4 fL 35.1-43.9 [facility] Work Phone: Erythrocyte distribution width (RBC) [Ratio] 13.1 % 11.6-14.6 [facility] Work Phone: Immature granulocytes/100 WBC (Bld) 0.500 % 0.0-0.9 [facility] Work Phone: Comment on above: IG% - Immature Granu locytes (promyelocytes, myelocytes and metamyelocytes) > 1% indicates that a LEFT SHIFT is Present. MCH (RBC) [Entitic mass] 31.1 pg 27.0-32.0 [facility] Work Phone: Nucleated RBC/100 WBC (Bld) [Ratio] 0 % 0-5 [facility] Work Phone: MCHC Auto (RBC) [Mass/Vol]on 03-16-2022 MCHC (RBC) [Mass/Vol] 31.9 g/dL 32-36 [facility] Work Phone: No Panel Informationon 03-16 Estimated GFR (MDRD) Amer 94 mL/min >60 [facility] Work Phone: Comment on above: GFR Calc Estimated GFR (MDRD) Non-Af Amer 78 mL/min >60 [facility] Work Phone: Comment on above: Non- GFR Calc Platelets bldon 03-16-2022 Platelets (Bld) [#/Vol] 218 10*3/uL 150-450 [facility] Work Phone: Serum or plasma albumin brandan urement (mass/volume)on 03-16-2022 Albumin [Mass/Vol] 3.5 g/dL 3.2-5.0 [facility] [place] [facility] Work Phone: Serum or plasma albumin/glob ulin mass ratioon 03-16-2022 Albumin/Globulin [Mass ratio] 1.0 {ratio} 0.9-2.4 [facility] Work Phone: Serum or plasma calcium brandan urement (mass/volume)on 03-16-2022 Calcium [Mass/Vol] 8.9 mg/dL 8.5-10.1 [facility] [place] [facility] Work Phone: Serum or plasma creatinine m easurement (mass/volume)on 03-16-2022 Creatinine [Mass/Vol] 0.76 mg/dL 0.55-1.02 [facility] Work Phone: Comment on above: The validity of the calculated GFR & GFRAA in patients over 70 years has not been determined. Clinical correlation is essential. Serum or plasma urea nitroge n measurement (mass/volume)on 03-16-2022 Urea nitrogen [Mass/Vol] 19 mg/dL 7-18 [facility] Work Phone: Thin prep Papanicolaou smear with manual screeningon 03-16-2022 Thin prep Papanicolaou smear with manual screening 13 U/L 15-37 [facility] Work Phone: Thin prep Papanicolaou smear with manual screening 5 5-15 [facility] Work Phone: Thin prep Papanicolaou smear with manual screening 181 U/L 84-246 [facility] Work Phone: Culture, urineon 01-09-2022 Bacteria identified Cx Nom (U) Presumptive E. coli [facility] Work Phone: CONVERTED SURGICAL PATHOLOGY on 12-12-2021 CONVERTED COMPLETE REPORT Specimen #: [id number]* Submitting Physician: RAND CALZADA D.O. FINAL DIAGNOSIS 15 slides received from [facility], [place], [place] labeled [id number] from procedure dated 10/27/2021. A. Left breast, core needle biopsy (A1 and immunohistochemical stains) - Invasive ductal carcinoma, provisional Herbie grade 3 (please see comment). B. Left axillary tissue, core needle biopsy (B1 and immunohistochemical stains) - Metastatic carcinoma (please see comment). EDK/km 12/11/2021 COMMENT The invasive carcinoma has heterogenous morphology with some areas being intermediate grade while the majority of the carcinoma shows marked nuclear pleomorphism consistent with a provisional Herbie grade 3. Immunohistochemical stains received for review show that the invasive carcinoma is positive for expression of E-cadherin supporting ductal phenotype. The invasive carcinoma is positive for expression of the estrogen receptor (95% with strong staining intensity) and the progesterone receptor (60% with moderate to strong staining intensity). A HER2 is equivocal for 2+, while a corresponding fluorescence in-situ hybridization assay was reported as not amplified (average HER2 copy number per cell of 3.05 with a HER2/CEP17 ratio of 1.35). The metastatic carcinoma appears to replace the core of lymph node with only a small area suggestive of lymph node capsule present as well as a focus suspicious for extranodal extension. Kati Carrion D.O. (Electronic Signature) SPECIMEN SUBMITTED A: 15 SLIDES ([id number]) CLINICAL DATA None provided. Date of Report: 12/12/2021 Date of Procedure: 12/08/2021 Date of Receipt: 12/08/2021 Submitted by: RAND CALZADA D.O. Location: [facility] Diagnostic interpretation performed at [facility], [address] [place] [address]. CLIA Number: [id number] [facility] CONVERTED DIAGNOSIS COMMENT The invasive carcinoma has heterogenous morphology with some areas being intermediate grade while the majority of the carcinoma shows marked nuclear pleomorphism consistent with a provisional [place] grade 3. Immunohistochemical stains received for review show that the invasive carcinoma is positive for expression of E-cadherin supporting ductal phenotype. The invasive carcinoma is positive for expression of the estrogen receptor (95% with strong staining intensity) and the progesterone receptor (60% with moderate to strong staining intensity). A HER2 is equivocal for 2+, while a corresponding fluorescence in-situ hybridization assay was reported as not amplified (average HER2 copy number per cell of 3.05 with a HER2/CEP17 ratio of 1.35). The metastatic carcinoma appears to replace the core of lymph node with only a small area suggestive of lymph node capsule present as well as a focus suspicious for extranodal extension. [facility] CONVERTED ORDERING PROVIDER Ordering Provider: RAND CALZADA [facility] CONVERTED SPECIMENS 15 SLIDES ([id number]) [facility] SURGICAL PATHOLOGYon 022 Aromatherapist Specimen #: [id number]* Submitting Physician: RAND CALZADA D.O. FINAL DIAGNOSIS 15 slides received from [place], [place] labeled [id number] from procedure dated 10/27/2021. A. Left breast, core needle biopsy (A1 and immunohistochemical stains) - Invasive ductal carcinoma, provisional [place] grade 3 (please see comment). B. Left axillary tissue, core needle biopsy (B1 and immunohistochemical stains) - Metastatic carcinoma (please see comment). EDK/km 12/11/2021 COMMENT The invasive carcinoma has heterogenous morphology with some areas being intermediate grade while the majority of the carcinoma shows marked nuclear pleomorphism consistent with a provisional [place] grade 3. Immunohistochemical stains received for review show that the invasive carcinoma is positive for expression of E-cadherin supporting ductal phenotype. The invasive carcinoma is positive for expression of the estrogen receptor (95% with strong staining intensity) and the progesterone receptor (60% with moderate to strong staining intensity). A HER2 is equivocal for 2+, while a corresponding fluorescence in-situ hybridization assay was reported as not amplified (average HER2 copy number per cell of 3.05 with a HER2/CEP17 ratio of 1.35). The metastatic carcinoma appears to replace the core of lymph node with only a small area suggestive of lymph node capsule present as well as a focus suspicious for extranodal extension. Kati Carrion D.O. (Electronic Signature) SPECIMEN SUBMITTED A: 15 SLIDES ([id number]) CLINICAL DATA None provided. Date of Report: 12/12/2021 Date of Procedure: 12/08/2021 Date of Receipt: 12/08/2021 Submitted by: RAND CALZADA D.O. Location: [facility] Diagnostic interpretation performed at [facility] [address], [facility] [address]. CLIA Number: [id number] [facility] DBT Breast - bilateral diagn ostic for implanton 12-08-2021 * * *Final Report* * * DATE OF EXAM: Dec 08 2021 11:44AM SSW [id number] - [facility]IS DIAG W [facility] [facility] / PROCEDURE REASON: multiple diagnoses * * * * Physician Interpretation * * * * RESULT: #[id number] - [facility] DIAG W [facility] [facility] #[id number] - [facility] US BREAST LTD LT BILATERAL DIGITAL DIAGNOSTIC MAMMOGRAM TOMOSYNTHESIS WITH CAD: 12/08/2021 HISTORY: Multiple Diagnoses / Call back/abnormal mamm: Right / SEE TECH NOTE Multiple Diagnoses / SEE TECH NOTE. RESULT: TECHNIQUE: The study was acquired using full field digital technology and interpreted from soft copy. Digital Breast Tomosynthesis (DBT) images were obtained and used to assist in the interpretation of this examination. Current study was also evaluated with a Computer Aided Detection (CAD). Comparison is made to exams dated: 10/26/2021 mammogram, 11/16/2021 PET, 11/07/2021 CT, 10/27/2021 ultrasound, 10/26/2021 ultrasound, and 10/26/2021 mammogram. There are scattered fibroglandular elements in both breasts. Additional CC and MLO views imaging reveal prior mammographic finding is no longer seen in the right breast in the sub-areolar depth. This is consistent with overlapping fibroglandular tissue. There is an enlarged node in the left breast posterior depth superior region seen on the mediolateral oblique view only. This is seen in additional views. There also is an irregular high density mass with an obscured margin in the left breast at 8 o'clock posterior depth. This is seen in additional views. No other significant masses, calcifications, or other findings are seen in either breast. DIVISION OF RADIOLOGY Provider, [facility] - 12/08/2021 * * *Final Report* * * DATE OF EXAM: Dec 08 2021 11:44AM SS 0627 - LOLIS DIAG W T[place] RICH / PROCEDURE REASON: multiple diagnoses * * * * Physician Interpretation * * * * RESULT: #[id number] - [facility] DIAG W TAVON RICH #[id number] - [facility] US BREAST LTD LT BILATERAL DIGITAL DIAGNOSTIC MAMMOGRAM TOMOSYNTHESIS WITH CAD: 12/08/2021 HISTORY: Multiple Diagnoses / Call back/abnormal mamm: Right / SEE TECH NOTE Multiple Diagnoses / SEE TECH NOTE. RESULT: TECHNIQUE: The study was acquired using full field digital technology and interpreted from soft copy. Digital Breast Tomosynthesis (DBT) images were obtained and used to assist in the interpretation of this examination. Current study was also evaluated with a Computer Aided Detection (CAD). Comparison is made to exams dated: 10/26/2021 mammogram, 11/16/2021 PET, 11/07/2021 CT, 10/27/2021 ultrasound, 10/26/2021 ultrasound, and 10/26/2021 mammogram. There are scattered fibroglandular elements in both breasts. Additional CC and MLO views imaging reveal prior mammographic finding is no longer seen in the right breast in the sub-areolar depth. This is consistent with overlapping fibroglandular tissue. There is an enlarged node in the left breast posterior depth superior region seen on the mediolateral oblique view only. This is seen in additional views. There also is an irregular high density mass with an obscured margin in the left breast at 8 o'clock posterior depth. This is seen in additional views. No other significant masses, calcifications, or other findings are seen in either breast. IMPRESSION IMPRESSION: INCOMPLETE: NEEDS ADDITIONAL IMAGING EVALUATION The enlarged node in the left breast posterior depth superior region seen on the mediolateral oblique view only is indeterminate. An ultrasound is recommended. The irregular high density mass in the left breast at 8 o'clock posterior depth is consistent with the known carcinoma and is a known biopsy positive for malignancy. LIMITED ULTRASOUND OF LEFT BREAST: 12/08/2021 RESULT: Comparison is made to exams dated: 10/26/2021 mammogram, 11/16/2021 PET, 11/07/2021 CT, 10/27/2021 ultrasound, 10/26/2021 ultrasound, and 10/26/2021 mammogram. Color flow and real-time ultrasound of the left breast were performed. Delgado scale images of the real-time examination were reviewed. There is 4.5 cm x 3.3 cm x 4.7 cm (radial, anti-radial, transverse) irregular mass with an indistinct margin in the left breast at 8 o'clock 6 cm from the nipple. This irregular mass is hypoechoic. This correlates as palpated and with mammography findings. There also are multiple 2.6 cm masses in the left axillary tail. These correlate with mammography findings. Color flow imaging demonstrates that there is no vascularity present. IMPRESSION: KNOWN BIOPSY PROVEN MALIGNANCY The 4.5 cm x 3.3 cm x 4.7 cm (radial, anti-radial, transverse) irregular mass in the left breast at 8 o'clock is consistent with the known carcinoma and is a known biopsy positive for malignancy. A biopsy marker is present within this mass. The mass invades the skin, as seen clinically as skin ulceration. Ther eis also associated skin thickening and nipple retraction. There is no mass seen deep to the nipple. The multiple 2.6 cm masses in the left axillary tail are consistent with an enlarged lymph node and are a known biopsy positive for malignancy. A biopsy clip is seen by ultrasound within the largest node which has shown biopsy proven metastatic adenopathy. There are multiple (at least 6 additional abnormal nodes are seen). Of note, there are reported abnormal subpectoral and internal mammary nodes on recent PET-CT. SUMMARY: The patient is scheduled to see Dr. Calzada for surgical consultation tomorrow. Buffy Go M.D., jr/cyrus:12/08/2021 15:53:17 Multiple national specialty organizations have released breast cancer screening guidelines for women at average risk for developing breast cancer - guidelines that are based on both evidence and opinion, yet differ on when to start and how often to screen for breast cancer. With representation from Breast Imaging, Internal Medicine, Women's Health, Family Medicine, and Medical/Surgical Oncology, the [facility] has carefully reviewed the data and reached the following consensus: 1) All women should engage in shared decision-making with their providers to decide when to start and how often to screen; 2) All women should have the opportunity to start screening mammography at age 40; 3) For women ages 45-55, we recommend annual screening mammograms; 4) For women ages 55 and over, we support both the transition from an annual to a biennial interval if this aligns more with patient's values and preferences, or continuation with annual screenin (more content not included)... [facility] Radiology Study observation (narrative) [facility] No Panel InformationOrdered By: [facility] Provider on 12-08-2021 [facility] US Breast - left limitedon 0 12-08-2021 * * *Final Report* * * DATE OF EXAM: Dec 08 2021 11:44AM [facility] [id number] - LOLIS US BREAST LTD LT / PROCEDURE REASON: multiple diagnoses * * * * Physician Interpretation * * * * RESULT: #[id number] - [facility] DIAG W [place] #[id number] - [facility] US BREAST LTD LT BILATERAL DIGITAL DIAGNOSTIC MAMMOGRAM TOMOSYNTHESIS WITH CAD: 12/08/2021 HISTORY: Multiple Diagnoses / Call back/abnormal mamm: Right / SEE TECH NOTE Multiple Diagnoses / SEE TECH NOTE. RESULT: TECHNIQUE: The study was acquired using full field digital technology and interpreted from soft copy. Digital Breast Tomosynthesis (DBT) images were obtained and used to assist in the interpretation of this examination. Current study was also evaluated with a Computer Aided Detection (CAD). Comparison is made to exams dated: 10/26/2021 mammogram, 11/16/2021 PET, 11/07/2021 CT, 10/27/2021 ultrasound, 10/26/2021 ultrasound, and 10/26/2021 mammogram. There are scattered fibroglandular elements in both breasts. Additional CC and MLO views imaging reveal prior mammographic finding is no longer seen in the right breast in the sub-areolar depth. This is consistent with overlapping fibroglandular tissue. There is an enlarged node in the left breast posterior depth superior region seen on the mediolateral oblique view only. This is seen in additional views. There also is an irregular high density mass with an obscured margin in the left breast at 8 o'clock posterior depth. This is seen in additional views. No other significant masses, calcifications, or other findings are seen in either breast. DIVISION OF RADIOLOGY Provider, [facility] - 12/08/2021 * * *Final Report* * * DATE OF EXAM: Dec 08 2021 11:44AM [facility] 0593 - LOLIS US BREAST LTD LT / PROCEDURE REASON: multiple diagnoses * * * * Physician Interpretation * * * * RESULT: #[id number] - [facility] DIAG W [place] #[id number] - [facility] US BREAST LTD LT BILATERAL DIGITAL DIAGNOSTIC MAMMOGRAM TOMOSYNTHESIS WITH CAD: 12/08/2021 HISTORY: Multiple Diagnoses / Call back/abnormal mamm: Right / SEE TECH NOTE Multiple Diagnoses / SEE TECH NOTE. RESULT: TECHNIQUE: The study was acquired using full field digital technology and interpreted from soft copy. Digital Breast Tomosynthesis (DBT) images were obtained and used to assist in the interpretation of this examination. Current study was also evaluated with a Computer Aided Detection (CAD). Comparison is made to exams dated: 10/26/2021 mammogram, 11/16/2021 PET, 11/07/2021 CT, 10/27/2021 ultrasound, 10/26/2021 ultrasound, and 10/26/2021 mammogram. There are scattered fibroglandular elements in both breasts. Additional CC and MLO views imaging reveal prior mammographic finding is no longer seen in the right breast in the sub-areolar depth. This is consistent with overlapping fibroglandular tissue. There is an enlarged node in the left breast posterior depth superior region seen on the mediolateral oblique view only. This is seen in additional views. There also is an irregular high density mass with an obscured margin in the left breast at 8 o'clock posterior depth. This is seen in additional views. No other significant masses, calcifications, or other findings are seen in either breast. IMPRESSION IMPRESSION: INCOMPLETE: NEEDS ADDITIONAL IMAGING EVALUATION The enlarged node in the left breast posterior depth superior region seen on the mediolateral oblique view only is indeterminate. An ultrasound is recommended. The irregular high density mass in the left breast at 8 o'clock posterior depth is consistent with the known carcinoma and is a known biopsy positive for malignancy. LIMITED ULTRASOUND OF LEFT BREAST: 12/08/2021 RESULT: Comparison is made to exams dated: 10/26/2021 mammogram, 11/16/2021 PET, 11/07/2021 CT, 10/27/2021 ultrasound, 10/26/2021 ultrasound, and 10/26/2021 mammogram. Color flow and real-time ultrasound of the left breast were performed. Delgado scale images of the real-time examination were reviewed. There is 4.5 cm x 3.3 cm x 4.7 cm (radial, anti-radial, transverse) irregular mass with an indistinct margin in the left breast at 8 o'clock 6 cm from the nipple. This irregular mass is hypoechoic. This correlates as palpated and with mammography findings. There also are multiple 2.6 cm masses in the left axillary tail. These correlate with mammography findings. Color flow imaging demonstrates that there is no vascularity present. IMPRESSION: KNOWN BIOPSY PROVEN MALIGNANCY The 4.5 cm x 3.3 cm x 4.7 cm (radial, anti-radial, transverse) irregular mass in the left breast at 8 o'clock is consistent with the known carcinoma and is a known biopsy positive for malignancy. A biopsy marker is present within this mass. The mass invades the skin, as seen clinically as skin ulceration. Ther eis also associated skin thickening and nipple retraction. There is no mass seen deep to the nipple. The multiple 2.6 cm masses in the left axillary tail are consistent with an enlarged lymph node and are a known biopsy positive for malignancy. A biopsy clip is seen by ultrasound within the largest node which has shown biopsy proven metastatic adenopathy. There are multiple (at least 6 additional abnormal nodes are seen). Of note, there are reported abnormal subpectoral and internal mammary nodes on recent PET-CT. SUMMARY: The patient is scheduled to see Dr. Calzada for surgical consultation tomorrow. Buffy Go M.D., jr/cyrus:12/08/2021 15:53:17 Multiple national specialty organizations have released breast cancer screening guidelines for women at average risk for developing breast cancer - guidelines that are based on both evidence and opinion, yet differ on when to start and how often to screen for breast cancer. With representation from Breast Imaging, Internal Medicine, Women's Health, Family Medicine, and Medical/Surgical Oncology, the [facility] has carefully reviewed the data and reached the following consensus: 1) All women should engage in shared decision-making with their providers to decide when to start and how often to screen; 2) All women should have the opportunity to start screening mammography at age 40; 3) For women ages 45-55, we recommend annual screening mammograms; 4) For women ages 55 and over, we support both the transition from an annual to a biennial interval if this aligns more with patient's values and preferences, or continuation with annual screeni (more content not included)... [facility] Radiology Study observation (narrative) [facility] Absolute lymphocyte counton 11-02-2021 Lymphocytes Auto (Unsp spec) [#/Vol] 2.42 10*3/uL 0.83-4.51 [facility] Work Phone: Basophil percentageon 2021 Basophils/100 WBC (Bld) 0.7 % 0-1 [facility] Work Phone: [phone] Bilirubin [Mass/Vol] 0.40 mg/dL 0.20-1.00 [facility] Work Phone: Comment on above: For patients on eltr ombopag therapy, use of Dimension [place] TBIL is not recommended. Chloride [Moles/Vol] 107 mmol/L 98-107 [facility] Work Phone: Eosinophils/100 WBC (Bld) 1.9 % 0-5 [facility] Work Phone: [phone] Glucose [Mass/Vol] 105 mg/dL 74-106 [facility] Work Phone: [phone] Comment on above: Fasting Glucose resu lt from 100 to 125 mg/dL suggests IMPAIRED HOMEOSTASIS per A.D.A. criteria. Neutrophils (Bld) [#/Vol] 3.8 10*3/uL 2.0-7.7 [facility] Work Phone: [phone] Neutrophils/100 WBC (Bld) 54.4 % 47-70 [facility] Work Phone: [phone] Potassium [Moles/Vol] 4.7 mmol/L 3.5-5.1 [facility] Work Phone: Protein [Mass/Vol] 7.0 g/dL 6.4-8.2 [facility] Work Phone: [phone] Sodium [Moles/Vol] 141 mmol/L 136-145 [facility] Work Phone: WBC (Bld) [#/Vol] 6.9 10*3/uL 4.4-11.0 [facility] Work Phone: Blood erythrocytes count (nu mber/volume)on 11-02-2021 RBC (Bld) [#/Vol] 4.15 10*6/uL 4.2-5.4 [facility] Work Phone: Blood hemoglobin measurement (mass/volume)on 11-02-2021 Hemoglobin (Bld) [Mass/Vol] 12.8 g/dL 12.0-15.0 [facility] Work Phone: Blood lymphocytes/100 leukoc yteson 11-02-2021 Lymphocytes/100 WBC (Bld) 35.1 % 19-41 [facility] Work Phone: Blood monocytes/100 leukocyt eson 11-02-2021 Monocytes/100 WBC (Bld) 7.5 % 0-10 [facility] Work Phone: Blood platelet mean volumeon 11-02-2021 Platelet mean volume (Bld) [Entitic vol] 8.3 fL 6.2-12.0 [facility] Work Phone: Determination of erythrocyte mean corpuscular volume (MCV)on 11-02-2021 MCV (RBC) [Entitic vol] 97.3 fL 81-99 [facility] Work Phone: Hematocrit Auto (Bld) [Volum e fraction]on 11-02-2021 Hematocrit (Bld) [Volume fraction] 40.4 % 37-47 [facility] Work Phone: Laboratory - Chemistry and C hemistry - challengeon 11-02-2021 ALP [Catalytic activity/Vol] 73 U/L 45-117 [facility] Work Phone: ALT [Catalytic activity/Vol] 19 U/L 13-56 [facility] Work Phone: CO2 [Moles/Vol] 29.0 mmol/L 21.0-32.0 [facility] Work Phone: Globulin (S) [Mass/Vol] 3.5 g/dL 2.2-4.2 [facility] Work Phone: Urea nitrogen/Creatinine [Mass ratio] 26.8 mg/mg 10-20 [facility] Work Phone: Laboratory - Hematology and Cell countson 11-02-2021 Erythrocyte distribution width (RBC) [Entitic vol] 47.5 fL 35.1-43.9 [facility] Work Phone: Erythrocyte distribution width (RBC) [Ratio] 13.2 % 11.6-14.6 [facility] Work Phone: Immature granulocytes/100 WBC (Bld) 0.400 % 0.0-0.9 [facility] Work Phone: Comment on above: IG% - Immature Granu locytes (promyelocytes, myelocytes and metamyelocytes) > 1% indicates that a LEFT SHIFT is Present. MCH (RBC) [Entitic mass] 30.8 pg 27.0-32.0 [facility] Work Phone: Nucleated RBC/100 WBC (Bld) [Ratio] 0 % 0-5 [facility] Work Phone: MCHC Auto (RBC) [Mass/Vol]on 11-02-2021 MCHC (RBC) [Mass/Vol] 31.7 g/dL 32-36 [facility] Work Phone: No Panel Informationon 11-02 Estimated GFR (MDRD) Amer 103 mL/min >60 [facility] Work Phone: Comment on above: GFR Calc Estimated GFR (MDRD) Non-Af Amer 85 mL/min >60 [facility] Work Phone: Comment on above: Non- GFR Calc Platelets bldon 11-02-2021 Platelets (Bld) [#/Vol] 248 10*3/uL 150-450 [facility] Work Phone: Serum or plasma albumin brandan urement (mass/volume)on 11-02-2021 Albumin [Mass/Vol] 3.5 g/dL 3.2-5.0 [facility] Work Phone: Serum or plasma albumin/glob ulin mass ratioon 11-02-2021 Albumin/Globulin [Mass ratio] 1.0 {ratio} 0.9-2.4 [facility] Work Phone: Serum or plasma calcium brandan urement (mass/volume)on 11-02-2021 Calcium [Mass/Vol] 9.1 mg/dL 8.5-10.1 [facility] Work Phone: Serum or plasma creatinine m easurement (mass/volume)on 11-02-2021 Creatinine [Mass/Vol] 0.71 mg/dL 0.55-1.02 [facility] Work Phone: Comment on above: The validity of the calculated GFR & GFRAA in patients over 70 years has not been determined. Clinical correlation is essential. Serum or plasma urea nitroge n measurement (mass/volume)on 11-02-2021 Urea nitrogen [Mass/Vol] 19 mg/dL 7-18 [facility] Work Phone: Thin prep Papanicolaou smear with manual screeningon 11-02-2021 Thin prep Papanicolaou smear with manual screening 15 U/L 15-37 [facility] Work Phone: Thin prep Papanicolaou smear with manual screening 5 5-15 [facility] Work Phone: Thin prep Papanicolaou smear with manual screening 183 U/L 84-246 [facility] Work Phone: .Auto Diffon 12-07-2020 Ammonia (P) [Mass/Vol] 0.50 10 3/mcL Normal 0.09-1.40 [facility] ([place]) Comment on above: Performed By: #### C BC, ADIFF, ANEU, TROPHS, CMP, PBNP, GFR #### [address] [address] Basophils (Bld) [#/Vol] 0.10 10 3/mcL Normal 0.00-0.27 [facility] ([place]) Comment on above: Performed By: #### C BC, ADIFF, ANEU, TROPHS, CMP, PBNP, GFR #### [address] [address] Basophils/100 WBC (Bld) 0.6 % Normal 0.0-2.5 [facility] ([place]) Comment on above: Performed By: #### C BC, ADIFF, ANEU, TROPHS, CMP, PBNP, GFR #### [address] [address] Eosinophils (Bld) [#/Vol] 0.10 10 3/mcL Normal 0.00-0.65 [facility] ([place]) Comment on above: Performed By: #### C BC, ADIFF, ANEU, TROPHS, CMP, PBNP, GFR #### [address] [address] Eosinophils/100 WBC (Bld) 1.1 % Normal 0.0-6.0 [facility] ([place]) Comment on above: Performed By: #### C BC, ADIFF, ANEU, TROPHS, CMP, PBNP, GFR #### [address] [address] Lymphocytes (Bld) [#/Vol] 1.30 10 3/mcL Normal 0.90-4.32 [facility] ([place]) Comment on above: Performed By: #### C BC, ADIFF, ANEU, TROPHS, CMP, PBNP, GFR #### [address] [address] Lymphocytes/100 WBC (Bld) 14.7 % Low 20.0-40.0 [facility] ([place]) Comment on above: Performed By: #### C BC, ADIFF, ANEU, TROPHS, CMP, PBNP, GFR #### [address] [address] Monocytes/100 WBC (Bld) 5.8 % Normal 2.0-13.0 [facility] ([place]) Comment on above: Performed By: #### C BC, ADIFF, ANEU, TROPHS, CMP, PBNP, GFR #### [address] [address] Neutrophils/100 WBC (Bld) 77.8 % High 50.0-75.0 [facility] ([place]) Comment on above: Performed By: #### C BC, ADIFF, ANEU, TROPHS, CMP, PBNP, GFR #### [address] [address] .GFRon 12-07-2020 GFR >60 Normal [facility] ([place]) Comment on above: Result Comment: GFR Population mean for , Non- Americans Ages 20-29 = 116 mL/min/1.73 sq.m. Ages 30-39 = 107 mL/min/1.73 sq.m. Ages 40-49 = 99 mL/min/1.73 sq.m. Ages 50-59 = 93 mL/min/1.73 sq.m. Ages 60-69 = 85 mL/min/1.73 sq.m. Ages 70+ = 75 mL/min/1.73 sq.m. Chronic Kidney Disease: Less than 60 mL/min/1.73 square meters End Stage Renal Disease: Less than 15 mL/min/1.73 square meters Performed By: #### C BC, ADIFF, ANEU, TROPHS, CMP, PBNP, GFR #### [address] [address] GFR Non- >60 Normal [facility] ([place]) Comment on above: Result Comment: GFR Population mean for , Non- Americans Ages 20-29 = 116 mL/min/1.73 sq.m. Ages 30-39 = 107 mL/min/1.73 sq.m. Ages 40-49 = 99 mL/min/1.73 sq.m. Ages 50-59 = 93 mL/min/1.73 sq.m. Ages 60-69 = 85 mL/min/1.73 sq.m. Ages 70+ = 75 mL/min/1.73 sq.m. Chronic Kidney Disease: Less than 60 mL/min/1.73 square meters End Stage Renal Disease: Less than 15 mL/min/1.73 square meters Performed By: #### C BC, ADIFF, ANEU, TROPHS, CMP, PBNP, GFR #### [address] [address] .NEUABSon 12-07-2020 Neutrophils (Bld) [#/Vol] 6.70 10 3/mcL Normal 2.25-8.10 [facility] ([place]) Comment on above: Performed By: #### C BC, ADIFF, ANEU, TROPHS, CMP, PBNP, GFR #### [address] [address] BMPon 12-07-2020 Calcium [Mass/Vol] 8.7 mg/dL Normal 8.7-10.4 [facility] ([place]) Comment on above: Result Comment: No te - New Reference Range in effect 20 Performed By: #### C BC, ADIFF, ANEU, TROPHS, CMP, PBNP, GFR #### [address] [address] Chloride [Moles/Vol] 109 mmol/L Normal 98-110 [facility] ([place]) Comment on above: Performed By: #### C BC, ADIFF, ANEU, TROPHS, CMP, PBNP, GFR #### [address] [address] CO2 [Moles/Vol] 25 mmol/L Normal 22-32 [facility] ([place]) Comment on above: Performed By: #### C BC, ADIFF, ANEU, TROPHS, CMP, PBNP, GFR #### [address] [address] Creatinine [Mass/Vol] 0.59 mg/dL Normal 0.50-1.20 [facility] ([place]) Comment on above: Performed By: #### C BC, ADIFF, ANEU, TROPHS, CMP, PBNP, GFR #### [address] [address] Electrolyte Balance 2.0 mEq/L Low 4.0-15.0 [facility] ([place]) Comment on above: Performed By: #### C BC, ADIFF, ANEU, TROPHS, CMP, PBNP, GFR #### [address] [address] Glucose [Mass/Vol] 111 mg/dL Normal 82-115 [facility] ([place]) Comment on above: Performed By: #### C BC, ADIFF, ANEU, TROPHS, CMP, PBNP, GFR #### [address] [address] Potassium [Moles/Vol] 3.5 mmol/L Normal 3.5-5.0 [facility] ([place]) Comment on above: Performed By: #### C BC, ADIFF, ANEU, TROPHS, CMP, PBNP, GFR #### [address] [address] Sodium [Moles/Vol] 136 mmol/L Normal 136-145 [facility] ([place]) Comment on above: Performed By: #### C BC, ADIFF, ANEU, TROPHS, CMP, PBNP, GFR #### [address] [address] Urea nitrogen [Mass/Vol] 7.0 mg/dL Low 8.0-22.0 [facility] ([place]) Comment on above: Performed By: #### C BC, ADIFF, ANEU, TROPHS, CMP, PBNP, GFR #### [address] [address] Urea nitrogen/Creatinine [Mass ratio] 11.9 ratio Normal 10.0-22.0 [facility] ([place]) Comment on above: Performed By: #### C BC, ADIFF, ANEU, TROPHS, CMP, PBNP, GFR #### [address] [address] CBCon 12-07-2020 Erythrocyte distribution width (RBC) [Ratio] 17.6 % High 11.5-15.5 [facility] ([place]) Comment on above: Performed By: #### C BC, ADIFF, ANEU, TROPHS, CMP, PBNP, GFR #### [address] [address] Hematocrit (Bld) [Volume fraction] 31.5 % Low 34.0-46.0 [facility] ([place]) Comment on above: Performed By: #### C BC, ADIFF, ANEU, TROPHS, CMP, PBNP, GFR #### [address] [address] Hemoglobin (Bld) [Mass/Vol] 10.4 G/dL Low 12.0-16.0 [facility] ([place]) Comment on above: Performed By: #### C BC, ADIFF, ANEU, TROPHS, CMP, PBNP, GFR #### [address] [address] MCH (RBC) [Entitic mass] 31.3 pg Normal 27.0-33.0 [facility] ([place]) Comment on above: Performed By: #### C BC, ADIFF, ANEU, TROPHS, CMP, PBNP, GFR #### [place] [id number] MCHC (RBC) [Mass/Vol] 33.2 G/dL Normal 32.0-36.0 [facility] ([place]) Comment on above: Performed By: #### C BC, ADIFF, ANEU, TROPHS, CMP, PBNP, GFR #### [place] [id number] MCV (RBC) [Entitic vol] 94.2 fL Normal 80.0-99.0 [facility] ([place]) Comment on above: Performed By: #### C BC, ADIFF, ANEU, TROPHS, CMP, PBNP, GFR #### [address] [address] Platelet mean volume (Bld) [Entitic vol] 6.5 fL Low 6.6-10.5 [facility] ([place]) Comment on above: Performed By: #### C BC, ADIFF, ANEU, TROPHS, CMP, PBNP, GFR #### [address] [address] Platelets (Bld) [#/Vol] 234 10 3/mcL Normal 150-450 [facility] ([place]) Comment on above: Performed By: #### C BC, ADIFF, ANEU, TROPHS, CMP, PBNP, GFR #### [address] [address] RBC (Bld) [#/Vol] 3.34 10 6/mcL Low 4.10-5.30 [facility] ([place]) Comment on above: Performed By: #### C BC, ADIFF, ANEU, TROPHS, CMP, PBNP, GFR #### [address] [address] WBC (Bld) [#/Vol] 8.60 10 3/mcL Normal 4.50-10.80 [facility] ([place]) Comment on above: Performed By: #### C BC, ADIFF, ANEU, TROPHS, CMP, PBNP, GFR #### [address] [address] MGon 12-07-2020 Magnesium [Mass/Vol] 1.5 mg/dL Low 1.6-2.4 [facility] ([place]) Comment on above: Performed By: #### C BC, ADIFF, ANEU, TROPHS, CMP, PBNP, GFR #### [address] [address] .Auto Diffon 12-06-2020 Ammonia (P) [Mass/Vol] 0.40 10 3/mcL Normal 0.09-1.40 [facility] ([place]) Comment on above: Performed By: #### C BC, ADIFF, ANEU, TROPHS, CMP, PBNP, GFR #### [address] [address] Basophils (Bld) [#/Vol] 0.10 10 3/mcL Normal 0.00-0.27 [facility] ([place]) Comment on above: Performed By: #### C BC, ADIFF, ANEU, TROPHS, CMP, PBNP, GFR #### [address] [address] Basophils/100 WBC (Bld) 1.0 % Normal 0.0-2.5 [facility] ([place]) Comment on above: Performed By: #### C BC, ADIFF, ANEU, TROPHS, CMP, PBNP, GFR #### [address] [address] Eosinophils (Bld) [#/Vol] 0.10 10 3/mcL Normal 0.00-0.65 [facility] ([place]) Comment on above: Performed By: #### C BC, ADIFF, ANEU, TROPHS, CMP, PBNP, GFR #### [address] [address] Eosinophils/100 WBC (Bld) 2.2 % Normal 0.0-6.0 [facility] ([place]) Comment on above: Performed By: #### C BC, ADIFF, ANEU, TROPHS, CMP, PBNP, GFR #### [address] [address] Lymphocytes (Bld) [#/Vol] 1.80 10 3/mcL Normal 0.90-4.32 [facility] ([place]) Comment on above: Performed By: #### C BC, ADIFF, ANEU, TROPHS, CMP, PBNP, GFR #### [address] [address] Lymphocytes/100 WBC (Bld) 33.3 % Normal 20.0-40.0 [facility] ([place]) Comment on above: Performed By: #### C BC, ADIFF, ANEU, TROPHS, CMP, PBNP, GFR #### [address] [address] Monocytes/100 WBC (Bld) 7.0 % Normal 2.0-13.0 [facility] ([place]) Comment on above: Performed By: #### C BC, ADIFF, ANEU, TROPHS, CMP, PBNP, GFR #### [address] [address] Neutrophils/100 WBC (Bld) 56.5 % Normal 50.0-75.0 [facility] ([place]) Comment on above: Performed By: #### C BC, ADIFF, ANEU, TROPHS, CMP, PBNP, GFR #### [address] [address] .GFRon 12-06-2020 GFR >60 Normal [facility] ([place]) Comment on above: Result Comment: GFR Population mean for , Non- Americans Ages 20-29 = 116 mL/min/1.73 sq.m. Ages 30-39 = 107 mL/min/1.73 sq.m. Ages 40-49 = 99 mL/min/1.73 sq.m. Ages 50-59 = 93 mL/min/1.73 sq.m. Ages 60-69 = 85 mL/min/1.73 sq.m. Ages 70+ = 75 mL/min/1.73 sq.m. Chronic Kidney Disease: Less than 60 mL/min/1.73 square meters End Stage Renal Disease: Less than 15 mL/min/1.73 square meters Performed By: #### C BC, ADIFF, ANEU, TROPHS, CMP, PBNP, GFR #### [address] [address] GFR Non- >60 Normal [facility] ([place]) Comment on above: Result Comment: GFR Population mean for , Non- Americans Ages 20-29 = 116 mL/min/1.73 sq.m. Ages 30-39 = 107 mL/min/1.73 sq.m. Ages 40-49 = 99 mL/min/1.73 sq.m. Ages 50-59 = 93 mL/min/1.73 sq.m. Ages 60-69 = 85 mL/min/1.73 sq.m. Ages 70+ = 75 mL/min/1.73 sq.m. Chronic Kidney Disease: Less than 60 mL/min/1.73 square meters End Stage Renal Disease: Less than 15 mL/min/1.73 square meters Performed By: #### C BC, ADIFF, ANEU, TROPHS, CMP, PBNP, GFR #### [address] [address] .Morphon 12-06-2020 Anisocytosis Ql (Bld) Slight Normal [facility] ([place]) Comment on above: Performed By: #### C BC, ADIFF, ANEU, TROPHS, CMP, PBNP, GFR #### [address] [address] Ovalocytes Few Normal [facility] ([place]) Comment on above: Performed By: #### C BC, ADIFF, ANEU, TROPHS, CMP, PBNP, GFR #### [address] [address] Platelets (Bld) [#/Vol] Normal [facility] ([place]) Comment on above: Performed By: #### C BC, ADIFF, ANEU, TROPHS, CMP, PBNP, GFR #### [address] [address] Poik Slight [facility] ([place]) Comment on above: Performed By: #### C BC, ADIFF, ANEU, TROPHS, CMP, PBNP, GFR #### [address] [address] .NEUABSon 12-06-2020 Neutrophils (Bld) [#/Vol] 3.10 10 3/mcL Normal 2.25-8.10 [facility] ([place]) Comment on above: Performed By: #### C BC, ADIFF, ANEU, TROPHS, CMP, PBNP, GFR #### [address] [address] BMPon 12-06-2020 Calcium [Mass/Vol] 8.6 mg/dL Low 8.7-10.4 [facility] ([place]) Comment on above: Result Comment: No te - New Reference Range in effect 20 Performed By: #### C BC, ADIFF, ANEU, TROPHS, CMP, PBNP, GFR #### [place] [address] Chloride [Moles/Vol] 109 mmol/L Normal 98-110 [facility] ([place]) Comment on above: Performed By: #### C BC, ADIFF, ANEU, TROPHS, CMP, PBNP, GFR #### [place] [id number] CO2 [Moles/Vol] 26 mmol/L Normal 22-32 [facility] ([place]) Comment on above: Performed By: #### C BC, ADIFF, ANEU, TROPHS, CMP, PBNP, GFR #### [address] [address] Creatinine [Mass/Vol] 0.64 mg/dL Normal 0.50-1.20 [facility] ([place]) Comment on above: Performed By: #### C BC, ADIFF, ANEU, TROPHS, CMP, PBNP, GFR #### [address] [address] Electrolyte Balance 5.0 mEq/L Normal 4.0-15.0 [facility] ([place]) Comment on above: Performed By: #### C BC, ADIFF, ANEU, TROPHS, CMP, PBNP, GFR #### [address] [address] Glucose [Mass/Vol] 73 mg/dL Low 82-115 [facility] ([place]) Comment on above: Performed By: #### C BC, ADIFF, ANEU, TROPHS, CMP, PBNP, GFR #### [address] [address] Potassium [Moles/Vol] 3.8 mmol/L Normal 3.5-5.0 [facility] ([place]) Comment on above: Performed By: #### C BC, ADIFF, ANEU, TROPHS, CMP, PBNP, GFR #### [place] [id number] Sodium [Moles/Vol] 140 mmol/L Normal 136-145 [facility] ([place]) Comment on above: Performed By: #### C BC, ADIFF, ANEU, TROPHS, CMP, PBNP, GFR #### [place] [phone] Urea nitrogen [Mass/Vol] 9.0 mg/dL Normal 8.0-22.0 [facility] ([place]) Comment on above: Performed By: #### C BC, ADIFF, ANEU, TROPHS, CMP, PBNP, GFR #### [address] [address] Urea nitrogen/Creatinine [Mass ratio] 14.1 ratio Normal 10.0-22.0 [facility] ([place]) Comment on above: Performed By: #### C BC, ADIFF, ANEU, TROPHS, CMP, PBNP, GFR #### [address] [address] CBCon 12-06-2020 Erythrocyte distribution width (RBC) [Ratio] 17.6 % High 11.5-15.5 [facility] ([place]) Comment on above: Performed By: #### C BC, ADIFF, ANEU, TROPHS, CMP, PBNP, GFR #### [address] [address] Hematocrit (Bld) [Volume fraction] 28.3 % Low 34.0-46.0 [facility] ([place]) Comment on above: Performed By: #### C BC, ADIFF, ANEU, TROPHS, CMP, PBNP, GFR #### [place] [phone] Hemoglobin (Bld) [Mass/Vol] 9.3 G/dL Low 12.0-16.0 [facility] ([place]) Comment on above: Performed By: #### C BC, ADIFF, ANEU, TROPHS, CMP, PBNP, GFR #### [place] [phone] MCH (RBC) [Entitic mass] 30.6 pg Normal 27.0-33.0 [facility] ([place]) Comment on above: Performed By: #### C BC, ADIFF, ANEU, TROPHS, CMP, PBNP, GFR #### [place] [phone] MCHC (RBC) [Mass/Vol] 32.8 G/dL Normal 32.0-36.0 [facility] ([place]) Comment on above: Performed By: #### C BC, ADIFF, ANEU, TROPHS, CMP, PBNP, GFR #### [place] [id number] MCV (RBC) [Entitic vol] 93.3 fL Normal 80.0-99.0 [facility] ([place]) Comment on above: Performed By: #### C BC, ADIFF, ANEU, TROPHS, CMP, PBNP, GFR #### [place] [phone] Platelet mean volume (Bld) [Entitic vol] 6.5 fL Low 6.6-10.5 [facility] ([place]) Comment on above: Performed By: #### C BC, ADIFF, ANEU, TROPHS, CMP, PBNP, GFR #### [place] [phone] Platelets (Bld) [#/Vol] 207 10 3/mcL Normal 150-450 [facility] ([place]) Comment on above: Performed By: #### C BC, ADIFF, ANEU, TROPHS, CMP, PBNP, GFR #### [facility] [address] [place] [address] RBC (Bld) [#/Vol] 3.03 10 6/mcL Low 4.10-5.30 [facility] ([place]) Comment on above: Performed By: #### C BC, ADIFF, ANEU, TROPHS, CMP, PBNP, GFR #### [facility] [address] [place] [address] WBC (Bld) [#/Vol] 5.40 10 3/mcL Normal 4.50-10.80 [facility] ([place]) Comment on above: Performed By: #### C BC, ADIFF, ANEU, TROPHS, CMP, PBNP, GFR #### [facility] [address] [place] [address] EVIPH46on 12-06-2020 COVID-19 Int Normal [facility] ([place]) Comment on above: Result Comment: This test is being used under the FDA EUA procedure. This assay has been validated in the [facility] for use with nasopharyngeal and oropharyngeal specimens in [facility] or [facility]. If a non-validated specimen or test collection method was used, please interpret the results with caution, especially if the test result is negative. A negative test result for this test means that SARS-CoV-2 RNA was not present in the specimen above the limit of detection. However, a negative result does not rule out COVID-19 and should not be used as the sole basis for treatment or patient management decisions. A negative result does not exclude the possibility of COVID-19. When diagnostic testing is negative, the possibility of a false negative result should be considered in the context of a patient's recent exposures and the presence of clinical signs and symptoms consistent with COVID-19. The possibility of a false negative result should especially be considered if the patient?s recent exposures or clinical presentation indicate that COVID-19 is likely, and diagnostic tests for other causes of illness (e.g., other respiratory illness) are negative. If COVID-19 is still suspected based on exposure history together with other clinical findings, re-testing should be considered by healthcare providers in consultation with public health authorities. The [employer] SARS-CoV-2 Reagents for [employer] System is a real-time RT-PCR test intended for the qualitative detection of nucleic acid from the SARS-CoV-2 in nasopharyngeal and oropharyngeal swab samples. COVID-19 Int Performed By: #### C BC, ADIFF, ANEU, TROPHS, CMP, PBNP, GFR #### [place] [id number] COVID-19 Result Negative Normal Negative [facility] ([place]) Comment on above: Performed By: #### C BC, ADIFF, ANEU, TROPHS, CMP, PBNP, GFR #### [place] [address] COVID-19 Source Nasopharyngeal [facility] ([place]) Comment on above: Performed By: #### C BC, ADIFF, ANEU, TROPHS, CMP, PBNP, GFR #### [place] [address] Date of Onset [id number] [facility] ([place]) Comment on above: Performed By: #### C BC, ADIFF, ANEU, TROPHS, CMP, PBNP, GFR #### [place] [address] Employed in Healthcare No [facility] ([place]) Comment on above: Performed By: #### C BC, ADIFF, ANEU, TROPHS, CMP, PBNP, GFR #### [place] [address] First Test Unknown [facility] ([place]) Comment on above: Performed By: #### C BC, ADIFF, ANEU, TROPHS, CMP, PBNP, GFR #### [place] [address] Hospitalized Yes [facility] ([place]) Comment on above: Performed By: #### C BC, ADIFF, ANEU, TROPHS, CMP, PBNP, GFR #### [place] [phone] ICU No [facility] ([place]) Comment on above: Performed By: #### C BC, ADIFF, ANEU, TROPHS, CMP, PBNP, GFR #### [place] [address] Not [facility] ([place]) Comment on above: Performed By: #### C BC, ADIFF, ANEU, TROPHS, CMP, PBNP, GFR #### [place] [address] Resides in Congregate Care Setting Yes [facility] ([place]) Comment on above: Performed By: #### C BC, ADIFF, ANEU, TROPHS, CMP, PBNP, GFR #### [place] [address] Symptomatic as Defined by CDC No [facility] ([place]) Comment on above: Performed By: #### C BC, ADIFF, ANEU, TROPHS, CMP, PBNP, GFR #### [place] [address] XR SMALL BOWEL W/ SERIAL ARTHUR MSon 12-06-2020 XR SMALL BOWEL W/ SERIAL FILMS ORIGINAL XR SMALL BOWEL W/ SERIAL FILMS CLINICAL STATEMENT: nausea/vomiting. COMPARISON: CT scan 12/01/2020 FINDINGS: There are degenerative changes noted in the spine. RIGHT upper quadrant clips are noted. Sigmoid and LEFT colon diverticula are noted. Small bowel transit is prolonged, and barium arrives in the RIGHT colon at 5.5 hours. The small bowel is normal in caliber and flow pattern. No intraluminal or extrinsic mass is identified. The appendix appears normal. No additional contributory finding. IMPRESSION: Prolonged small bowel transit without dilatation. This may indicate mild functional diminished motility. A focal obstructing lesion is not evident. Interpreted By: David Ramirez MD Preliminary Report By: David Ramirez MD Electronically Signed By: David Ramirez MD Dictated Date: 12/06/2020 4:32:57 PM Prelim Date: 12/06/2020 4:32:57 PM Sign Date: 12/06/2020 4:35:05 PM Ordering Provider:Viviana Elliott [facility] ([place]) XR UPPER GIon 12-06-2020 XR UPPER GI ORIGINAL XR UPPER GI CLINICAL STATEMENT: nausea, vomitting,. COMPARISON: None FINDINGS: 1.4 minutes fluoroscopy time. 37.5 milligray dose. 36 digital images were obtained. Swallowing is normal and there is no evidence for tracheal aspiration. Esophageal motility is mildly reduced. There is a small sliding hiatal hernia present. No associated stricture seen. No esophageal ulceration or mass seen. The stomach is normal in size, position, distensibility and peristalsis. The rugal for pattern is normal. No ulceration or mass seen. The duodenal bulb expands well with no ulceration or mass. The remainder of the duodenum is unremarkable. No additional contributory finding seen. IMPRESSION: 1. Mild reduction in esophageal motility compatible with patient's age. 2. Small sliding hiatal hernia. 3. No other structural lesion identified. Interpreted By: David Ramirez MD Preliminary Report By: David Ramirez MD Electronically Signed By: David Ramirez MD Dictated Date: 12/06/2020 11:55:28 AM Prelim Date: 12/06/2020 11:55:28 AM Sign Date: 12/06/2020 11:57:18 AM Ordering Provider:Viviana Elliott [facility] ([place]) .GFRon 12-05-2020 GFR >60 Normal [facility] ([place]) Comment on above: Result Comment: GFR Population mean for , Non- Americans Ages 20-29 = 116 mL/min/1.73 sq.m. Ages 30-39 = 107 mL/min/1.73 sq.m. Ages 40-49 = 99 mL/min/1.73 sq.m. Ages 50-59 = 93 mL/min/1.73 sq.m. Ages 60-69 = 85 mL/min/1.73 sq.m. Ages 70+ = 75 mL/min/1.73 sq.m. Chronic Kidney Disease: Less than 60 mL/min/1.73 square meters End Stage Renal Disease: Less than 15 mL/min/1.73 square meters Performed By: #### C BC, ADIFF, ANEU, TROPHS, CMP, PBNP, GFR #### [place] [address] GFR Non- >60 Normal [facility] ([place]) Comment on above: Result Comment: GFR Population mean for , Non- Americans Ages 20-29 = 116 mL/min/1.73 sq.m. Ages 30-39 = 107 mL/min/1.73 sq.m. Ages 40-49 = 99 mL/min/1.73 sq.m. Ages 50-59 = 93 mL/min/1.73 sq.m. Ages 60-69 = 85 mL/min/1.73 sq.m. Ages 70+ = 75 mL/min/1.73 sq.m. Chronic Kidney Disease: Less than 60 mL/min/1.73 square meters End Stage Renal Disease: Less than 15 mL/min/1.73 square meters Performed By: #### C BC, ADIFF, ANEU, TROPHS, CMP, PBNP, GFR #### [address] [address] BMPon 12-05-2020 Calcium [Mass/Vol] 8.2 mg/dL Low 8.7-10.4 [facility] ([place]) Comment on above: Result Comment: No te - New Reference Range in effect 20 Performed By: #### C BC, ADIFF, ANEU, TROPHS, CMP, PBNP, GFR #### [address] [address] Chloride [Moles/Vol] 108 mmol/L Normal 98-110 [facility] ([place]) Comment on above: Performed By: #### C BC, ADIFF, ANEU, TROPHS, CMP, PBNP, GFR #### [address] [address] CO2 [Moles/Vol] 25 mmol/L Normal 22-32 [facility] ([place]) Comment on above: Performed By: #### C BC, ADIFF, ANEU, TROPHS, CMP, PBNP, GFR #### [address] [address] Creatinine [Mass/Vol] 0.58 mg/dL Normal 0.50-1.20 [facility] ([place]) Comment on above: Performed By: #### C BC, ADIFF, ANEU, TROPHS, CMP, PBNP, GFR #### [address] [address] Electrolyte Balance 6.0 mEq/L Normal 4.0-15.0 [facility] ([place]) Comment on above: Performed By: #### C BC, ADIFF, ANEU, TROPHS, CMP, PBNP, GFR #### [address] [address] Glucose [Mass/Vol] 63 mg/dL Low 82-115 [facility] ([place]) Comment on above: Performed By: #### C BC, ADIFF, ANEU, TROPHS, CMP, PBNP, GFR #### [address] [address] Potassium [Moles/Vol] 3.4 mmol/L Low 3.5-5.0 [facility] ([place]) Comment on above: Performed By: #### C BC, ADIFF, ANEU, TROPHS, CMP, PBNP, GFR #### [address] [address] Sodium [Moles/Vol] 139 mmol/L Normal 136-145 [facility] ([place]) Comment on above: Performed By: #### C BC, ADIFF, ANEU, TROPHS, CMP, PBNP, GFR #### [address] [address] Urea nitrogen [Mass/Vol] 12.0 mg/dL Normal 8.0-22.0 [facility] ([place]) Comment on above: Performed By: #### C BC, ADIFF, ANEU, TROPHS, CMP, PBNP, GFR #### [address] [address] Urea nitrogen/Creatinine [Mass ratio] 20.7 ratio Normal 10.0-22.0 [facility] ([place]) Comment on above: Performed By: #### C BC, ADIFF, ANEU, TROPHS, CMP, PBNP, GFR #### [address] [address] .GFRon 12-03-2020 GFR >60 Normal [facility] ([place]) Comment on above: Result Comment: GFR Population mean for , Non- Americans Ages 20-29 = 116 mL/min/1.73 sq.m. Ages 30-39 = 107 mL/min/1.73 sq.m. Ages 40-49 = 99 mL/min/1.73 sq.m. Ages 50-59 = 93 mL/min/1.73 sq.m. Ages 60-69 = 85 mL/min/1.73 sq.m. Ages 70+ = 75 mL/min/1.73 sq.m. Chronic Kidney Disease: Less than 60 mL/min/1.73 square meters End Stage Renal Disease: Less than 15 mL/min/1.73 square meters Performed By: #### C BC, ADIFF, ANEU, TROPHS, CMP, PBNP, GFR #### [address] [address] GFR Non- >60 Normal [facility] ([place]) Comment on above: Result Comment: GFR Population mean for , Non- Americans Ages 20-29 = 116 mL/min/1.73 sq.m. Ages 30-39 = 107 mL/min/1.73 sq.m. Ages 40-49 = 99 mL/min/1.73 sq.m. Ages 50-59 = 93 mL/min/1.73 sq.m. Ages 60-69 = 85 mL/min/1.73 sq.m. Ages 70+ = 75 mL/min/1.73 sq.m. Chronic Kidney Disease: Less than 60 mL/min/1.73 square meters End Stage Renal Disease: Less than 15 mL/min/1.73 square meters Performed By: #### C BC, ADIFF, ANEU, TROPHS, CMP, PBNP, GFR #### [address] [address] .Manual Diffon 12-03-2020 Basophil %, Manual 0.0 % Normal 0.0-2.5 [facility] ([place]) Comment on above: Performed By: #### C BC, ADIFF, ANEU, TROPHS, CMP, PBNP, GFR #### [address] [address] Basophil, Abs Manual 0.00 10 3/mcL Normal 0.00-0.27 [facility] ([place]) Comment on above: Performed By: #### C BC, ADIFF, ANEU, TROPHS, CMP, PBNP, GFR #### [address] [address] Cells Counted 100 Normal [facility] ([place]) Comment on above: Performed By: #### C BC, ADIFF, ANEU, TROPHS, CMP, PBNP, GFR #### [address] [address] Eosinophil %, Manual 1.0 % Normal 0.0-6.0 [facility] ([place]) Comment on above: Performed By: #### C BC, ADIFF, ANEU, TROPHS, CMP, PBNP, GFR #### [address] [address] Eosinophil, Abs Manual 0.07 10 3/mcL Normal 0.00-0.65 [facility] ([place]) Comment on above: Performed By: #### C BC, ADIFF, ANEU, TROPHS, CMP, PBNP, GFR #### [address] [address] Lymphocyte %, Manual 28.0 % Normal 20.0-40.0 [facility] ([place]) Comment on above: Performed By: #### C BC, ADIFF, ANEU, TROPHS, CMP, PBNP, GFR #### [address] [address] Lymphocyte, Abs Manual 2.10 10 3/mcL Normal 0.90-4.32 [facility] ([place]) Comment on above: Performed By: #### C BC, ADIFF, ANEU, TROPHS, CMP, PBNP, GFR #### [address] [address] Monocyte %, Manual 6.0 % Normal 2.0-13.0 [facility] ([place]) Comment on above: Performed By: #### C BC, ADIFF, ANEU, TROPHS, CMP, PBNP, GFR #### [address] [address] Monocyte, Abs Manual 0.45 10 3/mcL Normal 0.09-1.40 [facility] ([place]) Comment on above: Performed By: #### C BC, ADIFF, ANEU, TROPHS, CMP, PBNP, GFR #### [address] [address] Neutrophil %, Manual 65.0 % Normal 50.0-75.0 [facility] ([place]) Comment on above: Performed By: #### C BC, ADIFF, ANEU, TROPHS, CMP, PBNP, GFR #### [place] [address] Neutrophil, Abs Manual 4.88 10 3/mcL Normal 2.25-8.10 [facility] ([place]) Comment on above: Performed By: #### C BC, ADIFF, ANEU, TROPHS, CMP, PBNP, GFR #### [place] [address] Nucleated RBC (Bld) [#/Vol] 1.0 /100 WBC Normal [facility] ([place]) Comment on above: Performed By: #### C BC, ADIFF, ANEU, TROPHS, CMP, PBNP, GFR #### [place] [address] .Morphon 12-03-2020 Anisocytosis Ql (Bld) Slight Normal [facility] ([place]) Comment on above: Performed By: #### C BC, ADIFF, ANEU, TROPHS, CMP, PBNP, GFR #### [place] [address] Ovalocytes Few Normal [facility] ([place]) Comment on above: Performed By: #### C BC, ADIFF, ANEU, TROPHS, CMP, PBNP, GFR #### [place] [address] Platelets (Bld) [#/Vol] Normal Normal [facility] ([place]) Comment on above: Performed By: #### C BC, ADIFF, ANEU, TROPHS, CMP, PBNP, GFR #### [place] [address] Poik Slight Normal [facility] ([place]) Comment on above: Performed By: #### C BC, ADIFF, ANEU, TROPHS, CMP, PBNP, GFR #### [place] [address] BMPon 12-03-2020 Calcium [Mass/Vol] 8.9 mg/dL Normal 8.7-10.4 [facility] ([place]) Comment on above: Order Comment: Rachid kiser for 0501 the morning of patient admission. Result Comment: No te - New Reference Range in effect 20 Performed By: #### C BC, ADIFF, ANEU, TROPHS, CMP, PBNP, GFR #### [address] [address] Chloride [Moles/Vol] 112 mmol/L High 98-110 [facility] ([place]) Comment on above: Order Comment: Routi ne for 0501 the morning of patient admission. Performed By: #### C BC, ADIFF, ANEU, TROPHS, CMP, PBNP, GFR #### [address] [address] CO2 [Moles/Vol] 22 mmol/L Normal 22-32 [facility] ([place]) Comment on above: Order Comment: Routi ne for 0501 the morning of patient admission. Performed By: #### C BC, ADIFF, ANEU, TROPHS, CMP, PBNP, GFR #### [address] [address] Creatinine [Mass/Vol] 0.59 mg/dL Normal 0.50-1.20 [facility] ([place]) Comment on above: Order Comment: Routi ne for 0501 the morning of patient admission. Performed By: #### C BC, ADIFF, ANEU, TROPHS, CMP, PBNP, GFR #### [address] [address] Electrolyte Balance 8.0 mEq/L Normal 4.0-15.0 [facility] ([place]) Comment on above: Order Comment: Routi ne for 0501 the morning of patient admission. Performed By: #### C BC, ADIFF, ANEU, TROPHS, CMP, PBNP, GFR #### [address] [address] Glucose [Mass/Vol] 77 mg/dL Low 82-115 [facility] ([place]) Comment on above: Order Comment: Routi ne for 0501 the morning of patient admission. Performed By: #### C BC, ADIFF, ANEU, TROPHS, CMP, PBNP, GFR #### [address] [address] Potassium [Moles/Vol] 4.1 mmol/L Normal 3.5-5.0 [facility] ([place]) Comment on above: Order Comment: Routi ne for 0501 the morning of patient admission. Result Comment: Spec imen slightly hemolyzed. Performed By: #### C BC, ADIFF, ANEU, TROPHS, CMP, PBNP, GFR #### [address] [address] Sodium [Moles/Vol] 142 mmol/L Normal 136-145 [facility] ([place]) Comment on above: Order Comment: Routi ne for 0501 the morning of patient admission. Performed By: #### C BC, ADIFF, ANEU, TROPHS, CMP, PBNP, GFR #### [place] [id number] Urea nitrogen [Mass/Vol] 18.0 mg/dL Normal 8.0-22.0 [facility] ([place]) Comment on above: Order Comment: Routi ne for 0501 the morning of patient admission. Performed By: #### C BC, ADIFF, ANEU, TROPHS, CMP, PBNP, GFR #### [address] [address] Urea nitrogen/Creatinine [Mass ratio] 30.5 ratio High 10.0-22.0 [facility] ([place]) Comment on above: Order Comment: Routi ne for 0501 the morning of patient admission. Performed By: #### C BC, ADIFF, ANEU, TROPHS, CMP, PBNP, GFR #### [address] [address] CBCon 12-03-2020 Erythrocyte distribution width (RBC) [Ratio] 17.3 % High 11.5-15.5 [facility] ([place]) Comment on above: Order Comment: Routi ne for 0501 the morning of patient admission. Performed By: #### C BC, ADIFF, ANEU, TROPHS, CMP, PBNP, GFR #### [address] [address] Hematocrit (Bld) [Volume fraction] 33.1 % Low 34.0-46.0 [facility] ([place]) Comment on above: Order Comment: Routi ne for 0501 the morning of patient admission. Performed By: #### C BC, ADIFF, ANEU, TROPHS, CMP, PBNP, GFR #### [place] [phone] Hemoglobin (Bld) [Mass/Vol] 11.1 G/dL Low 12.0-16.0 [facility] ([place]) Comment on above: Order Comment: Routi ne for 0501 the morning of patient admission. Performed By: #### C BC, ADIFF, ANEU, TROPHS, CMP, PBNP, GFR #### [place] [phone] MCH (RBC) [Entitic mass] 31.4 pg Normal 27.0-33.0 [facility] ([place]) Comment on above: Order Comment: Routi ne for 0501 the morning of patient admission. Performed By: #### C BC, ADIFF, ANEU, TROPHS, CMP, PBNP, GFR #### [place] [id number] MCHC (RBC) [Mass/Vol] 33.6 G/dL Normal 32.0-36.0 [facility] ([place]) Comment on above: Order Comment: Routi ne for 0501 the morning of patient admission. Performed By: #### C BC, ADIFF, ANEU, TROPHS, CMP, PBNP, GFR #### [place] [id number] MCV (RBC) [Entitic vol] 93.5 fL Normal 80.0-99.0 [facility] ([place]) Comment on above: Order Comment: Routi ne for 0501 the morning of patient admission. Performed By: #### C BC, ADIFF, ANEU, TROPHS, CMP, PBNP, GFR #### [place] [phone] Platelet mean volume (Bld) [Entitic vol] 6.4 fL Low 6.6-10.5 [facility] ([place]) Comment on above: Order Comment: Routi ne for 0501 the morning of patient admission. Performed By: #### C BC, ADIFF, ANEU, TROPHS, CMP, PBNP, GFR #### [address] [address] Platelets (Bld) [#/Vol] 242 10 3/mcL Normal 150-450 [facility] ([place]) Comment on above: Order Comment: Routi ne for 0501 the morning of patient admission. Performed By: #### C BC, ADIFF, ANEU, TROPHS, CMP, PBNP, GFR #### [address] [address] RBC (Bld) [#/Vol] 3.54 10 6/mcL Low 4.10-5.30 [facility] ([place]) Comment on above: Order Comment: Routi ne for 0501 the morning of patient admission. Performed By: #### C BC, ADIFF, ANEU, TROPHS, CMP, PBNP, GFR #### [address] [address] WBC (Bld) [#/Vol] 7.50 10 3/mcL Normal 4.50-10.80 [facility] ([place]) Comment on above: Order Comment: Routi ne for 0501 the morning of patient admission. Performed By: #### C BC, ADIFF, ANEU, TROPHS, CMP, PBNP, GFR #### [address] [address] .GFRon 12-02-2020 GFR >60 Normal [facility] ([place]) Comment on above: Result Comment: GFR Population mean for , Non- Americans Ages 20-29 = 116 mL/min/1.73 sq.m. Ages 30-39 = 107 mL/min/1.73 sq.m. Ages 40-49 = 99 mL/min/1.73 sq.m. Ages 50-59 = 93 mL/min/1.73 sq.m. Ages 60-69 = 85 mL/min/1.73 sq.m. Ages 70+ = 75 mL/min/1.73 sq.m. Chronic Kidney Disease: Less than 60 mL/min/1.73 square meters End Stage Renal Disease: Less than 15 mL/min/1.73 square meters Performed By: #### C BC, ADIFF, ANEU, TROPHS, CMP, PBNP, GFR #### [address] [address] GFR Non- >60 Normal [facility] ([place]) Comment on above: Result Comment: GFR Population mean for , Non- Americans Ages 20-29 = 116 mL/min/1.73 sq.m. Ages 30-39 = 107 mL/min/1.73 sq.m. Ages 40-49 = 99 mL/min/1.73 sq.m. Ages 50-59 = 93 mL/min/1.73 sq.m. Ages 60-69 = 85 mL/min/1.73 sq.m. Ages 70+ = 75 mL/min/1.73 sq.m. Chronic Kidney Disease: Less than 60 mL/min/1.73 square meters End Stage Renal Disease: Less than 15 mL/min/1.73 square meters Performed By: #### C BC, ADIFF, ANEU, TROPHS, CMP, PBNP, GFR #### [address] [address] [facility] 12-02-2020 Potassium [Moles/Vol] 4.6 mmol/L Normal 3.5-5.0 [facility] ([place]) Comment on above: Order Comment: Needs recollected - hemolyzed Performed By: #### C BC, ADIFF, ANEU, TROPHS, CMP, PBNP, GFR #### [address] [address] Calcium [Mass/Vol] 9.1 mg/dL Normal 8.7-10.4 [facility] ([place]) Comment on above: Order Comment: Needs recollected - hemolyzed Result Comment: No te - New Reference Range in effect 20 Performed By: #### C BC, ADIFF, ANEU, TROPHS, CMP, PBNP, GFR #### [address] [address] Chloride [Moles/Vol] 111 mmol/L High 98-110 [facility] ([place]) Comment on above: Order Comment: Needs recollected - hemolyzed Performed By: #### C BC, ADIFF, ANEU, TROPHS, CMP, PBNP, GFR #### [address] [address] CO2 [Moles/Vol] 21 mmol/L Low 22-32 [facility] ([place]) Comment on above: Order Comment: Needs recollected - hemolyzed Performed By: #### C BC, ADIFF, ANEU, TROPHS, CMP, PBNP, GFR #### [address] [address] Creatinine [Mass/Vol] 0.62 mg/dL Normal 0.50-1.20 [facility] ([place]) Comment on above: Order Comment: Needs recollected - hemolyzed Performed By: #### C BC, ADIFF, ANEU, TROPHS, CMP, PBNP, GFR #### [address] [address] Electrolyte Balance 11.0 mEq/L Normal 4.0-15.0 [facility] ([place]) Comment on above: Order Comment: Needs recollected - hemolyzed Performed By: #### C BC, ADIFF, ANEU, TROPHS, CMP, PBNP, GFR #### [address] [address] Glucose [Mass/Vol] 83 mg/dL Normal 82-115 [facility] ([place]) Comment on above: Order Comment: Needs recollected - hemolyzed Performed By: #### C BC, ADIFF, ANEU, TROPHS, CMP, PBNP, GFR #### [address] [address] Sodium [Moles/Vol] 143 mmol/L Normal 136-145 [facility] ([place]) Comment on above: Order Comment: Needs recollected - hemolyzed Performed By: #### C BC, ADIFF, ANEU, TROPHS, CMP, PBNP, GFR #### [address] [address] Urea nitrogen [Mass/Vol] 19.0 mg/dL Normal 8.0-22.0 [facility] ([place]) Comment on above: Order Comment: Needs recollected - hemolyzed Performed By: #### C BC, ADIFF, ANEU, TROPHS, CMP, PBNP, GFR #### [address] [address] Urea nitrogen/Creatinine [Mass ratio] 30.6 ratio High 10.0-22.0 [facility] ([place]) Comment on above: Order Comment: Needs recollected - hemolyzed Performed By: #### C BC, ADIFF, ANEU, TROPHS, CMP, PBNP, GFR #### [facility] [address] [place] [id number] ABD/PELVIS W/ IV CONTRAST ONLYon 12-02-2020 CT ABD/PELVIS W/ IV CONTRAST ONLY ORIGINAL CT ABD/PELVIS W/ IV AND ORAL CONTRAST CLINICAL STATEMENT: Abdominal pain, weakness, nausea. Syncope. COMPARISON: None TECHNIQUE: Axial images were obtained from the lung bases through the pubic symphysis after the administration of IV and oral contrast. Coronal and sagittal reformatted images were generated from the axial dataset. This exam was performed according to our departmental dose optimization program, and includes the following measures where applicable: automated exposure control, adjustment of the mAs and/or kVp according to patient size and/or exam, and an iterative reconstruction algorithm. FINDINGS: Lung bases are clear Liver is relatively normal in attenuation with hypodense areas near the falciform ligament, likely representing focal fatty infiltration. Spleen and adrenal glands are normal. Fatty infiltration of the pancreas. Gallbladder surgically absent. Kidneys are symmetric with no enhancing lesion or hydronephrosis. Small hiatal hernia. Stomach is normal in morphology. Small and large bowel are normal in caliber. There is dense contrast in the large bowel from a prior barium exam. Appendix is normal. Pancolonic diverticulosis with no evidence of acute diverticulitis. No free intraperitoneal fluid or air. Bladder is mildly distended with no focal wall thickening. Uterus is atrophic or surgically absent. Air is present within the vaginal canal. No adnexal mass Aorta is atherosclerotic and nonaneurysmal. No pathologically enlarged abdominal or pelvic lymph nodes. No aggressive osseous lesion. Degenerative changes present in the spine. Slight retrolisthesis of L1 on L2 and L2 on L3. Grade 1 anterolisthesis of L3 on L4 and L4 on L5. IMPRESSION: No acute abdominal or pelvic abnormality. Small hiatal hernia. Pancolonic diverticulosis without evidence of acute diverticulitis. I have personally reviewed the images of this examination and agree with the resident's findings and interpretation. Interpreted By: Vicky Sol MD Preliminary Report By: Mak ,Sreedhar DO Electronically Signed By: Vicky Sol MD Dictated Date: 12/01/2020 11:20:24 PM Prelim Date: 12/01/2020 11:27:58 PM Sign Date: 12/01/2020 11:39:07 PM Ordering Provider:Deep Cornejo [facility]) CT HEAD OR BRAIN W/O CONTRAS Ton 12-02-2020 CT HEAD OR BRAIN W/O CONTRAST ORIGINAL CT HEAD OR BRAIN W/O CONTRAST This exam was performed according to our departmental dose optimization program, and includes the following measures where applicable: automated exposure control, adjustment of the mAs and/or kVp according to patient size and/or exam, and an iterative reconstruction algorithm. CLINICAL STATEMENT: syncope COMPARISON: None FINDINGS: There is age appropriate prominence of the ventricles and sulci. Moderate patchy periventricular and deep white matter hypodensity favors chronic ischemic small vessel disease. There is no large territory infarct, mass effect, or midline shift. The visualized paranasal sinuses and mastoid air cells are clear. The calvarium is intact. IMPRESSION: 1. Nonspecific white matter disease. 2. No acute abnormality. Interpreted By: Vicky Sol MD Preliminary Report By: Vicky Sol MD Electronically Signed By: Vicky Sol MD Dictated Date: 12/01/2020 11:14:44 PM Prelim Date: 12/01/2020 11:14:44 PM Sign Date: 12/01/2020 11:16:36 PM Ordering Provider:Deep Cornejo [facility]) MGon 12-02-2020 Magnesium [Mass/Vol] 1.8 mg/dL Normal 1.6-2.4 [facility]) Comment on above: Performed By: #### C BC, ADIFF, ANEU, TROPHS, CMP, PBNP, GFR #### [address] [address] TROPHSon 12-02-2020 Troponin I High Sensitivity 14.15 ng/L Normal 0.00-34.00 [facility]) Comment on above: Performed By: #### C BC, ADIFF, ANEU, TROPHS, CMP, PBNP, GFR #### [address] [address] Troponin I High Sensitivity 18.06 ng/L Normal 0.00-34.00 [facility] ([place]) Comment on above: Performed By: #### T SARI #### [address] [address] UAon 12-02-2020 Color (U) Yellow Normal [facility] ([place]) Comment on above: Performed By: #### C BC, ADIFF, ANEU, TROPHS, CMP, PBNP, GFR #### [place] [address] Glucose (U) [Mass/Vol] Negative Normal Negative [facility] ([place]) Comment on above: Performed By: #### C BC, ADIFF, ANEU, TROPHS, CMP, PBNP, GFR #### [place] [address] Ketones Ql (U) 15 mg/dL Abnormal Neg-Trace [facility] ([place]) Comment on above: Performed By: #### C BC, ADIFF, ANEU, TROPHS, CMP, PBNP, GFR #### [address] [address] UA Appear Cloudy Abnormal Clear [facility] ([place]) Comment on above: Performed By: #### C BC, ADIFF, ANEU, TROPHS, CMP, PBNP, GFR #### [address] [address] UA Blood Moderate Abnormal Neg-Trace [facility] ([place]) Comment on above: Performed By: #### C BC, ADIFF, ANEU, TROPHS, CMP, PBNP, GFR #### [address] [address] UA Leuk Est Trace Normal Negative [facility] ([place]) Comment on above: Performed By: #### C BC, ADIFF, ANEU, TROPHS, CMP, PBNP, GFR #### [address] [address] UA Nitrite Positive Abnormal Negative [facility] ([place]) Comment on above: Performed By: #### C BC, ADIFF, ANEU, TROPHS, CMP, PBNP, GFR #### [address] [address] UA pH 6.0 Normal 5.0 - 8.0 [facility] ([place]) Comment on above: Performed By: #### C BC, ADIFF, ANEU, TROPHS, CMP, PBNP, GFR #### [address] [address] UA Protein 30 mg/dL Normal Negative [facility] ([place]) Comment on above: Performed By: #### C BC, ADIFF, ANEU, TROPHS, CMP, PBNP, GFR #### [address] [address] UA Spec Grav >=1.030 Abnormal 1.006-1.029 [facility] ([place]) Comment on above: Performed By: #### C BC, ADIFF, ANEU, TROPHS, CMP, PBNP, GFR #### [address] [address] UA Specimen Type Clean Catch [facility] ([place]) Comment on above: Performed By: #### C BC, ADIFF, ANEU, TROPHS, CMP, PBNP, GFR #### [address] [address] UA Urobilinogen 1.0 E.U./dL Normal 0.2-1.0 [facility] ([place]) Comment on above: Performed By: #### C BC, ADIFF, ANEU, TROPHS, CMP, PBNP, GFR #### [address] [address] Urobilinogen Qn (U) Negative Normal Neg-Trace [facility] ([place]) Comment on above: Performed By: #### C BC, ADIFF, ANEU, TROPHS, CMP, PBNP, GFR #### [address] [address] Color (U) Yellow [facility] ([place]) Comment on above: Performed By: #### C BC, ADIFF, ANEU, TROPHS, CMP, PBNP, GFR #### [address] [address] Glucose (U) [Mass/Vol] Negative Normal Negative [facility] ([place]) Comment on above: Performed By: #### C BC, ADIFF, ANEU, TROPHS, CMP, PBNP, GFR #### [address] [address] Ketones Ql (U) Negative Normal Neg-Trace [facility] ([place]) Comment on above: Performed By: #### C BC, ADIFF, ANEU, TROPHS, CMP, PBNP, GFR #### [address] [address] UA Appear Hazy Abnormal Clear [facility] ([place]) Comment on above: Performed By: #### C BC, ADIFF, ANEU, TROPHS, CMP, PBNP, GFR #### [address] [address] UA Blood Large Abnormal Neg-Trace [facility] ([place]) Comment on above: Performed By: #### C BC, ADIFF, ANEU, TROPHS, CMP, PBNP, GFR #### [address] [address] UA Leuk Est Small Abnormal Negative [facility] ([place]) Comment on above: Performed By: #### C BC, ADIFF, ANEU, TROPHS, CMP, PBNP, GFR #### [address] [address] UA Nitrite Negative Normal Negative [facility] ([place]) Comment on above: Performed By: #### C BC, ADIFF, ANEU, TROPHS, CMP, PBNP, GFR #### [address] [address] UA pH 7.5 Normal 5.0 - 8.0 [facility] ([place]) Comment on above: Performed By: #### C BC, ADIFF, ANEU, TROPHS, CMP, PBNP, GFR #### [address] [address] UA Protein 30 mg/dL Normal Negative [facility] ([place]) Comment on above: Performed By: #### C BC, ADIFF, ANEU, TROPHS, CMP, PBNP, GFR #### [address] [address] UA Spec Grav >=1.030 Abnormal 1.006-1.029 [facility] ([place]) Comment on above: Performed By: #### C BC, ADIFF, ANEU, TROPHS, CMP, PBNP, GFR #### [place] [address] UA Specimen Type Not Given Normal [facility] ([place]) Comment on above: Performed By: #### C BC, ADIFF, ANEU, TROPHS, CMP, PBNP, GFR #### [place] [address] UA Urobilinogen 1.0 E.U./dL Normal 0.2-1.0 [facility] ([place]) Comment on above: Performed By: #### C BC, ADIFF, ANEU, TROPHS, CMP, PBNP, GFR #### [place] [address] Urobilinogen Qn (U) Negative Normal Neg-Trace [facility] ([place]) Comment on above: Performed By: #### C BC, ADIFF, ANEU, TROPHS, CMP, PBNP, GFR #### [place] [address] UAMICon 12-02-2020 RBC (U) [#/Vol] 0-2 Normal 0-2 [facility] ([place]) Comment on above: Performed By: #### C BC, ADIFF, ANEU, TROPHS, CMP, PBNP, GFR #### [place] [address] UA Amorphus Trace Normal [facility] ([place]) Comment on above: Performed By: #### C BC, ADIFF, ANEU, TROPHS, CMP, PBNP, GFR #### [place] [address] UA Bacteria 3+ /hpf Abnormal Negative [facility] ([place]) Comment on above: Performed By: #### C BC, ADIFF, ANEU, TROPHS, CMP, PBNP, GFR #### [place] [address] UA CA Ox Crystal Trace Normal [facility] ([place]) Comment on above: Performed By: #### C BC, ADIFF, ANEU, TROPHS, CMP, PBNP, GFR #### [address] [address] UA Squam Epithelial 0-2 Normal 0-20 [facility] ([place]) Comment on above: Performed By: #### C BC, ADIFF, ANEU, TROPHS, CMP, PBNP, GFR #### [address] [address] UA WBC 3-5 Normal 0-5 [facility] ([place]) Comment on above: Performed By: #### C BC, ADIFF, ANEU, TROPHS, CMP, PBNP, GFR #### [address] [address] RBC (U) [#/Vol] 5-10 Abnormal 0-2 [facility] ([place]) Comment on above: Performed By: #### C BC, ADIFF, ANEU, TROPHS, CMP, PBNP, GFR #### [place] [address] UA Bacteria 4+ /hpf Abnormal Negative [facility] ([place]) Comment on above: Performed By: #### C BC, ADIFF, ANEU, TROPHS, CMP, PBNP, GFR #### [place] [address] UA CA Ox Crystal Trace Normal [facility] ([place]) Comment on above: Performed By: #### C BC, ADIFF, ANEU, TROPHS, CMP, PBNP, GFR #### [place] [address] UA Fine Granular Casts 0-2 Abnormal [facility] ([place]) Comment on above: Performed By: #### C BC, ADIFF, ANEU, TROPHS, CMP, PBNP, GFR #### [place] [id number] UA Mixed Cell Casts 0-2 Abnormal [facility] ([place]) Comment on above: Performed By: #### C BC, ADIFF, ANEU, TROPHS, CMP, PBNP, GFR #### [place] [id number] UA Mucous 2+ /hpf Normal [facility] ([place]) Comment on above: Performed By: #### C BC, ADIFF, ANEU, TROPHS, CMP, PBNP, GFR #### [address] [address] UA Squam Epithelial 10-20 Normal 0-20 [facility] ([place]) Comment on above: Performed By: #### C BC, ADIFF, ANEU, TROPHS, CMP, PBNP, GFR #### [place] [address] UA WBC 5-10 Abnormal 0-5 [facility] ([place]) Comment on above: Performed By: #### C BC, ADIFF, ANEU, TROPHS, CMP, PBNP, GFR #### [address] [address] .Auto Diffon 12-01-2020 Ammonia (P) [Mass/Vol] 0.50 10 3/mcL Normal 0.09-1.40 [facility] ([place]) Comment on above: Performed By: #### C BC, ADIFF, ANEU, TROPHS, CMP, PBNP, GFR #### [place] [address] Basophils (Bld) [#/Vol] 0.00 10 3/mcL Normal 0.00-0.27 [facility] ([place]) Comment on above: Performed By: #### C BC, ADIFF, ANEU, TROPHS, CMP, PBNP, GFR #### [place] [id number] Basophils/100 WBC (Bld) 0.4 % Normal 0.0-2.5 [facility] ([place]) Comment on above: Performed By: #### C BC, ADIFF, ANEU, TROPHS, CMP, PBNP, GFR #### [place] [id number] Eosinophils (Bld) [#/Vol] 0.00 10 3/mcL Normal 0.00-0.65 [facility] ([place]) Comment on above: Performed By: #### C BC, ADIFF, ANEU, TROPHS, CMP, PBNP, GFR #### [address] [address] Eosinophils/100 WBC (Bld) 0.3 % Normal 0.0-6.0 [facility] ([place]) Comment on above: Performed By: #### C BC, ADIFF, ANEU, TROPHS, CMP, PBNP, GFR #### [address] [address] Lymphocytes (Bld) [#/Vol] 2.10 10 3/mcL Normal 0.90-4.32 [facility] ([place]) Comment on above: Performed By: #### C BC, ADIFF, ANEU, TROPHS, CMP, PBNP, GFR #### [address] [address] Lymphocytes/100 WBC (Bld) 25.7 % Normal 20.0-40.0 [facility] ([place]) Comment on above: Performed By: #### C BC, ADIFF, ANEU, TROPHS, CMP, PBNP, GFR #### [address] [address] Monocytes/100 WBC (Bld) 6.4 % Normal 2.0-13.0 [facility] ([place]) Comment on above: Performed By: #### C BC, ADIFF, ANEU, TROPHS, CMP, PBNP, GFR #### [address] [address] Neutrophils/100 WBC (Bld) 67.2 % Normal 50.0-75.0 [facility] ([place]) Comment on above: Performed By: #### C BC, ADIFF, ANEU, TROPHS, CMP, PBNP, GFR #### [address] [address] .GFRon 12-01-2020 GFR Non- >60 Normal [facility] ([place]) Comment on above: Result Comment: GFR Population mean for , Non- Americans Ages 20-29 = 116 mL/min/1.73 sq.m. Ages 30-39 = 107 mL/min/1.73 sq.m. Ages 40-49 = 99 mL/min/1.73 sq.m. Ages 50-59 = 93 mL/min/1.73 sq.m. Ages 60-69 = 85 mL/min/1.73 sq.m. Ages 70+ = 75 mL/min/1.73 sq.m. Chronic Kidney Disease: Less than 60 mL/min/1.73 square meters End Stage Renal Disease: Less than 15 mL/min/1.73 square meters Performed By: #### C BC, ADIFF, ANEU, TROPHS, CMP, PBNP, GFR #### [address] [address] GFR >60 Normal [facility] ([place]) Comment on above: Result Comment: GFR Population mean for , Non- Americans Ages 20-29 = 116 mL/min/1.73 sq.m. Ages 30-39 = 107 mL/min/1.73 sq.m. Ages 40-49 = 99 mL/min/1.73 sq.m. Ages 50-59 = 93 mL/min/1.73 sq.m. Ages 60-69 = 85 mL/min/1.73 sq.m. Ages 70+ = 75 mL/min/1.73 sq.m. Chronic Kidney Disease: Less than 60 mL/min/1.73 square meters End Stage Renal Disease: Less than 15 mL/min/1.73 square meters Performed By: #### C BC, ADIFF, ANEU, TROPHS, CMP, PBNP, GFR #### [address] [address] .NEUABSon 12-01-2020 Neutrophils (Bld) [#/Vol] 5.40 10 3/mcL Normal 2.25-8.10 [facility] ([place]) Comment on above: Performed By: #### C BC, ADIFF, ANEU, TROPHS, CMP, PBNP, GFR #### [address] [address] CBCon 12-01-2020 Erythrocyte distribution width (RBC) [Ratio] 17.1 % High 11.5-15.5 [facility] ([place]) Comment on above: Performed By: #### C BC, ADIFF, ANEU, TROPHS, CMP, PBNP, GFR #### [address] [address] Hematocrit (Bld) [Volume fraction] 39.9 % Normal 34.0-46.0 [facility] ([place]) Comment on above: Performed By: #### C BC, ADIFF, ANEU, TROPHS, CMP, PBNP, GFR #### [address] [address] Hemoglobin (Bld) [Mass/Vol] 13.2 G/dL Normal 12.0-16.0 [facility] ([place]) Comment on above: Performed By: #### C BC, ADIFF, ANEU, TROPHS, CMP, PBNP, GFR #### [address] [address] MCH (RBC) [Entitic mass] 30.5 pg Normal 27.0-33.0 [facility] ([place]) Comment on above: Performed By: #### C BC, ADIFF, ANEU, TROPHS, CMP, PBNP, GFR #### [place] [id number] MCHC (RBC) [Mass/Vol] 33.2 G/dL Normal 32.0-36.0 [facility] ([place]) Comment on above: Performed By: #### C BC, ADIFF, ANEU, TROPHS, CMP, PBNP, GFR #### [place] [id number] MCV (RBC) [Entitic vol] 91.8 fL Normal 80.0-99.0 [facility] ([place]) Comment on above: Performed By: #### C BC, ADIFF, ANEU, TROPHS, CMP, PBNP, GFR #### [place] [phone] Platelet mean volume (Bld) [Entitic vol] 6.4 fL Low 6.6-10.5 [facility] ([place]) Comment on above: Performed By: #### C BC, ADIFF, ANEU, TROPHS, CMP, PBNP, GFR #### [place] [phone] Platelets (Bld) [#/Vol] 352 10 3/mcL Normal 150-450 [facility] ([place]) Comment on above: Performed By: #### C BC, ADIFF, ANEU, TROPHS, CMP, PBNP, GFR #### [place] [id number] RBC (Bld) [#/Vol] 4.34 10 6/mcL Normal 4.10-5.30 [facility] ([place]) Comment on above: Performed By: #### C BC, ADIFF, ANEU, TROPHS, CMP, PBNP, GFR #### [place] [id number] WBC (Bld) [#/Vol] 7.40 10 3/mcL Normal 4.50-10.80 [facility] ([place]) Comment on above: Performed By: #### C BC, ADIFF, ANEU, TROPHS, CMP, PBNP, GFR #### [place] [id number] CMPon 12-01-2020 Albumin [Mass/Vol] 3.1 G/dL Low 3.2-4.8 [facility] ([place]) Comment on above: Performed By: #### C BC, ADIFF, ANEU, TROPHS, CMP, PBNP, GFR #### [place] [address] Albumin/Globulin [Mass ratio] 0.9 {ratio} Normal 0.9-1.6 [facility] ([place]) Comment on above: Performed By: #### C BC, ADIFF, ANEU, TROPHS, CMP, PBNP, GFR #### [place] [phone] ALP [Catalytic activity/Vol] 50 U/L Normal 38-126 [facility] ([place]) Comment on above: Performed By: #### C BC, ADIFF, ANEU, TROPHS, CMP, PBNP, GFR #### [place] [id number] ALT [Catalytic activity/Vol] 59 U/L High 10-49 [facility] ([place]) Comment on above: Performed By: #### C BC, ADIFF, ANEU, TROPHS, CMP, PBNP, GFR #### [place] [id number] AST [Catalytic activity/Vol] 21 U/L Normal 8-34 [facility] ([place]) Comment on above: Performed By: #### C BC, ADIFF, ANEU, TROPHS, CMP, PBNP, GFR #### [address] [address] Bili Total 1.4 mg/dL High 0.2-1.2 [facility] ([place]) Comment on above: Result Comment: Use of this assay is not recommended for patients undergoing treatment with eltrombopag due to the potential for falsely elevated results. Performed By: #### C BC, ADIFF, ANEU, TROPHS, CMP, PBNP, GFR #### [address] [address] Calcium [Mass/Vol] 8.9 mg/dL Normal 8.4-10.1 [facility] ([place]) Comment on above: Result Comment: No te - New Reference Range in effect 20 Performed By: #### C BC, ADIFF, ANEU, TROPHS, CMP, PBNP, GFR #### [address] [address] Chloride [Moles/Vol] 101 mmol/L Normal 98-110 [facility] ([place]) Comment on above: Performed By: #### C BC, ADIFF, ANEU, TROPHS, CMP, PBNP, GFR #### [address] [address] CO2 [Moles/Vol] 22 mmol/L Normal 22-32 [facility] ([place]) Comment on above: Performed By: #### C BC, ADIFF, ANEU, TROPHS, CMP, PBNP, GFR #### [address] [address] Creatinine [Mass/Vol] 0.86 mg/dL Normal 0.50-1.20 [facility] ([place]) Comment on above: Performed By: #### C BC, ADIFF, ANEU, TROPHS, CMP, PBNP, GFR #### [address] [address] Electrolyte Balance 16.0 mEq/L High 4.0-15.0 [facility] ([place]) Comment on above: Performed By: #### C BC, ADIFF, ANEU, TROPHS, CMP, PBNP, GFR #### [address] [address] Globulin (S) [Mass/Vol] 3.3 G/dL Normal 1.5-3.8 [facility] ([place]) Comment on above: Performed By: #### C BC, ADIFF, ANEU, TROPHS, CMP, PBNP, GFR #### [address] [address] Glucose [Mass/Vol] 111 mg/dL Normal 82-115 [facility] ([place]) Comment on above: Performed By: #### C BC, ADIFF, ANEU, TROPHS, CMP, PBNP, GFR #### [address] [address] Potassium [Moles/Vol] 2.7 mmol/L Critically abnormal 3.5-5.0 [facility] ([place]) Comment on above: Performed By: #### C BC, ADIFF, ANEU, TROPHS, CMP, PBNP, GFR #### [address] [address] Protein [Mass/Vol] 6.4 G/dL Normal 6.0-8.5 [facility] ([place]) Comment on above: Result Comment: No te - New Reference Range in effect 20 Performed By: #### C BC, ADIFF, ANEU, TROPHS, CMP, PBNP, GFR #### [address] [address] Sodium [Moles/Vol] 139 mmol/L Normal 136-145 [facility] ([place]) Comment on above: Performed By: #### C BC, ADIFF, ANEU, TROPHS, CMP, PBNP, GFR #### [address] [address] Urea nitrogen [Mass/Vol] 17.0 mg/dL Normal 8.0-22.0 [facility] ([place]) Comment on above: Performed By: #### C BC, ADIFF, ANEU, TROPHS, CMP, PBNP, GFR #### [address] [address] Urea nitrogen/Creatinine [Mass ratio] 19.8 ratio Normal 10.0-22.0 [facility] ([place]) Comment on above: Performed By: #### C BC, ADIFF, ANEU, TROPHS, CMP, PBNP, GFR #### [address] [address] PBNPon 12-01-2020 Natriuretic peptide B (Bld) [Mass/Vol] 776 pg/mL Normal 0-1800 [facility] ([place]) Comment on above: Result Comment: NT-p roBNP results of less than 300 pg/mL effectively rules out acute congestive heart failure with 99% negative predictive value. Performed By: #### C BC, ADIFF, ANEU, TROPHS, CMP, PBNP, GFR #### [place] [id number] TROPHSon 12-01-2020 Troponin I High Sensitivity 16.60 ng/L Normal 0.00-34.00 [facility] ([place]) Comment on above: Performed By: #### C BC, ADIFF, ANEU, TROPHS, CMP, PBNP, GFR #### [place] [id number] XR CHEST 1 VIEWon 12-01-2020 XR CHEST 1 VIEW ORIGINAL XR CHEST 1 VIEW CLINICAL STATEMENT: SOB/cough/fever. COMPARISON: None FINDINGS: Cardiomediastinal silhouette is within normal limits. No focal consolidation, pleural effusion, or pneumothorax. No vascular congestion. Minimal subsegmental LEFT midlung atelectasis. No acute osseous abnormality. Surgical clips in the RIGHT upper abdominal quadrant. Partial visualization of calcified gallstones. IMPRESSION: Minimal LEFT midlung subsegmental atelectasis with no other acute cardiopulmonary process. I have personally reviewed the images of this examination and agree with the resident's findings and interpretation. Interpreted By: Vicky Sol MD Preliminary Report By: Sreedhar Corado DO Electronically Signed By: Vicky Sol MD Dictated Date: 12/01/2020 8:52:46 PM Prelim Date: 12/01/2020 8:54:46 PM Sign Date: 12/01/2020 9:07:38 PM Ordering Provider:Jerrell Guzman [facility] ([place]) Culture, urine Bacteria identified Cx Nom (U) Presumptive E. coli [facility] Work Phone: Vital Signs Date Time Vital Sign Value Performing Clinician Nelly irving 04-20-2025 16:44-0400 Body temperature 99.7 [degF] Elliot Murillo MD Work Phone: [facility] 04-20-2025 16:44-0400 Diastolic blood pressure 76 mm[Hg] Elliot Murillo MD Work Phone: [facility] 04-20-2025 16:44-0400 Heart rate 91 /min Elliot Murillo MD Work Phone: [facility] 04-20-2025 16:44-0400 Respiratory rate 18 /min Elliot Murillo MD Work Phone: [facility] 04-20-2025 16:44-0400 SaO2% (BldA) [Mass fraction] 100 % Elliot Murillo MD Work Phone: [facility] 04-20-2025 16:44-0400 Systolic blood pressure 176 mm[Hg] Elliot Murillo MD Work Phone: [facility] 04-20-2025 09:00-0400 Body mass index (BMI) [Ratio] 38.81 kg/m2 Elliot Murillo MD Work Phone: [facility] 04-20-2025 09:00-0400 Body weight 90.13 kg Elliot Murillo MD Work Phone: [facility] 04-10-2025 11:00-0400 Body height 152.4 cm Elliot Murillo MD Work Phone: [facility] 04-08-2025 13:15-0400 Body temperature 97.8 [degF] Jorge A Barclay MD Work Phone: [facility] 04-08-2025 13:15-0400 Diastolic blood pressure 78 mm[Hg] Jorge A Barclay MD Work Phone: [facility] 04-08-2025 13:15-0400 Heart rate 70 /min Jorge A Barclay MD Work Phone: [facility] 04-08-2025 13:15-0400 Respiratory rate 20 /min Jorge A Barclay MD Work Phone: [facility] 04-08-2025 13:15-0400 SaO2% (BldA) [Mass fraction] 100 % Jorge A Barclay MD Work Phone: [facility] 04-08-2025 13:15-0400 Systolic blood pressure 173 mm[Hg] Jorge A Barclay MD Work Phone: [facility] 04-08-2025 12:09-0400 Body mass index (BMI) [Ratio] 36.6 kg/m2 Jorge A Barclay MD Work Phone: [phone] 04-08-2025 12:09-0400 Body weight 85 kg Jorge A Barclay MD Work Phone: [phone] [place] [address] 04-08-2025 11:29-0400 Body height 152.4 cm Jorge A Barclay MD Work Phone: [facility] 04-07-2025 12:59-0400 Body height 152.4 cm Jorge A Barclay MD Work Phone: [facility] 04-07-2025 12:59-0400 Body mass index (BMI) [Ratio] 33.7 kg/m2 Jorge A Barclay MD Work Phone: [facility] 04-07-2025 12:59-0400 Body temperature 98.3 [degF] Jorge A Barclay MD Work Phone: [facility] 04-07-2025 12:59-0400 Body weight 78.49 kg Jorge A Barclay MD Work Phone: [facility] 04-07-2025 12:59-0400 Diastolic blood pressure 66 mm[Hg] Jorge A Barclay MD Work Phone: [facility] 04-07-2025 12:59-0400 Heart rate 75 /min Jorge A Barclay MD Work Phone: [facility] 04-07-2025 12:59-0400 Respiratory rate 16 /min Jorge A Barclay MD Work Phone: [facility] 04-07-2025 12:59-0400 SaO2% (BldA) [Mass fraction] 100 % Jorge A Barclay MD Work Phone: [facility] 04-07-2025 12:59-0400 Systolic blood pressure 138 mm[Hg] Jorge A Barclay MD Work Phone: [facility] 03-10-2025 10:53-0400 Body height 152.4 cm Jorge A Barclay MD Work Phone: [facility] 03-10-2025 10:53-0400 Body mass index (BMI) [Ratio] 34 kg/m2 Jorge A Barclay MD Work Phone: [facility] 03-10-2025 10:53-0400 Body temperature 97.9 [degF] Jorge A Barclay MD Work Phone: [facility] 03-10-2025 10:53-0400 Body weight 79.09 kg Jorge A Barclay MD Work Phone: [facility] 03-10-2025 10:53-0400 Diastolic blood pressure 78 mm[Hg] Jorge A Barclay MD Work Phone: [facility] 03-10-2025 10:53-0400 Heart rate 75 /min Jorge A Barclay MD Work Phone: [facility] 03-10-2025 10:53-0400 Respiratory rate 18 /min Jorge A Barclay MD Work Phone: [facility] 03-10-2025 10:53-0400 SaO2% (BldA) [Mass fraction] 100 % Jorge A Barclay MD Work Phone: [facility] 03-10-2025 10:53-0400 Systolic blood pressure 162 mm[Hg] Jorge A Barclay MD Work Phone: [facility] 02-09-2025 14:23-0400 Body mass index (BMI) [Ratio] 35.2 kg/m2 Jorge A Barclay MD Work Phone: [facility] 02-09-2025 14:23-0400 Body temperature 98.2 [degF] Jorge A Barclay MD Work Phone: [facility] 02-09-2025 14:23-0400 Body weight 81.64 kg Jorge A Barclay MD Work Phone: [facility] 02-09-2025 14:23-0400 Diastolic blood pressure 73 mm[Hg] Jorge A Barclay MD Work Phone: [facility] 02-09-2025 14:23-0400 Heart rate 77 /min Jorge A Barclay MD Work Phone: [facility] 02-09-2025 14:23-0400 Respiratory rate 18 /min Jorge A Barclay MD Work Phone: [facility] 02-09-2025 14:23-0400 SaO2% (BldA) [Mass fraction] 100 % Jorge A Barclay MD Work Phone: [facility] 02-09-2025 14:23-0400 Systolic blood pressure 167 mm[Hg] Jorge A Barclay MD Work Phone: [facility] 12-31-2024 09:25-0400 Body mass index (BMI) [Ratio] 35.3 kg/m2 Jorge A Barclay MD Work Phone: [facility] 12-31-2024 09:25-0400 Body temperature 98.3 [degF] Jorge A Barclay MD Work Phone: [facility] 12-31-2024 09:25-0400 Body weight 82.1 kg Jorge A Barclay MD Work Phone: [facility] 12-31-2024 09:25-0400 Diastolic blood pressure 74 mm[Hg] Jorge A Barclay MD Work Phone: [facility] 12-31-2024 09:25-0400 Heart rate 65 /min Jorge A Barclay MD Work Phone: [facility] 12-31-2024 09:25-0400 Respiratory rate 16 /min Jorge A Barclay MD Work Phone: [facility] 12-31-2024 09:25-0400 SaO2% (BldA) [Mass fraction] 100 % Jorge A Barclay MD Work Phone: [facility] 12-31-2024 09:25-0400 Systolic blood pressure 154 mm[Hg] Jorge A Barclay MD Work Phone: [facility] 12-24-2024 10:35-0400 Body mass index (BMI) [Ratio] 34.9 kg/m2 Jorge A Barclay MD Work Phone: [facility] 12-24-2024 10:35-0400 Body temperature 97.3 [degF] Jorge A Barclay MD Work Phone: [facility] 12-24-2024 10:35-0400 Body weight 81.19 kg Jorge A Barclay MD Work Phone: [facility] 12-24-2024 10:35-0400 Diastolic blood pressure 88 mm[Hg] Jorge A Barlcay MD Work Phone: [facility] 12-24-2024 10:35-0400 Heart rate 67 /min Jorge A Barclay MD Work Phone: [facility] 12-24-2024 10:35-0400 Respiratory rate 16 /min Jorge A Barclay MD Work Phone: [facility] 12-24-2024 10:35-0400 SaO2% (BldA) [Mass fraction] 100 % Jorge A Barclay MD Work Phone: [facility] 12-24-2024 10:35-0400 Systolic blood pressure 179 mm[Hg] Jorge A Barclay MD Work Phone: [facility] 12-18-2024 10:08-0500 Body temperature 98.4 [degF] Jorge A Barclay MD Work Phone: [facility] 12-18-2024 10:08-0500 Body weight 81.64 kg Jorge A Barclay MD Work Phone: [facility] 12-18-2024 10:08-0500 Diastolic blood pressure 76 mm[Hg] Jorge A Barclay MD Work Phone: [facility] 12-18-2024 10:08-0500 Heart rate 79 /min Jorge A Barclay MD Work Phone: [facility] 12-18-2024 10:08-0500 Respiratory rate 17 /min Jorge A Barclay MD Work Phone: [facility] 12-18-2024 10:08-0500 SaO2% (BldA) [Mass fraction] 98 % Jorge A Barclay MD Work Phone: [facility] 12-18-2024 10:08-0500 Systolic blood pressure 120 mm[Hg] Jorge A Barclay MD Work Phone: [facility] 12-01-2024 15:32-0500 Body mass index (BMI) [Ratio] 34.9 kg/m2 Jorge A Barclay MD Work Phone: [facility] 12-01-2024 15:32-0500 Body temperature 97.2 [degF] Jorge A Barclay MD Work Phone: [facility] 12-01-2024 15:32-0500 Body weight 81.3 kg Jorge A Barclay MD Work Phone: [facility] 12-01-2024 15:32-0500 Diastolic blood pressure 72 mm[Hg] Jorge A Barclay MD Work Phone: [facility] 12-01-2024 15:32-0500 Heart rate 74 /min Jorge A Barclay MD Work Phone: [facility] 12-01-2024 15:32-0500 Respiratory rate 18 /min Jorge A Barclay MD Work Phone: [facility] 12-01-2024 15:32-0500 SaO2% (BldA) [Mass fraction] 99 % Jorge A Barclay MD Work Phone: [facility] 12-01-2024 15:32-0500 Systolic blood pressure 138 mm[Hg] Jorge A Barclay MD Work Phone: [facility] 11-26-2024 10:00-0500 Body mass index (BMI) [Ratio] 34.8 kg/m2 Jorge A Barclay MD Work Phone: [facility] 11-26-2024 10:00-0500 Body temperature 96.9 [degF] Jorge A Barclay MD Work Phone: [facility] 11-26-2024 10:00-0500 Body weight 80.93 kg Jorge A Barclay MD Work Phone: [facility] 11-26-2024 10:00-0500 Diastolic blood pressure 86 mm[Hg] Jorge A Barclay MD Work Phone: [facility] 11-26-2024 10:00-0500 Heart rate 63 /min Jorge A Barclay MD Work Phone: [facility] 11-26-2024 10:00-0500 Respiratory rate 18 /min Jorge A Barclay MD Work Phone: [facility] 11-26-2024 10:00-0500 SaO2% (BldA) [Mass fraction] 99 % Jorge A Barclay MD Work Phone: [facility] 11-26-2024 10:00-0500 Systolic blood pressure 162 mm[Hg] Jorge A Barclay MD Work Phone: [facility] 10-09-2023 09:43-0500 Body height 152.4 cm DO Uyen Lynn Work Phone: [facility] 10-09-2023 09:43-0500 Body mass index (BMI) [Ratio] 37 kg/m2 DO Uyen Shane Work Phone: [facility] 10-09-2023 09:43-0500 Body temperature 97.8 [degF] DO Uyen Shane Work Phone: [facility] 10-09-2023 09:43-0500 Body weight 86.21 kg DO Uyen Shane Work Phone: [facility] 10-09-2023 09:43-0500 Diastolic blood pressure 80 mm[Hg] DO Uyen Shane Work Phone: [facility] 10-09-2023 09:43-0500 Heart rate 63 /min DO Uyen Shane Work Phone: [facility] 10-09-2023 09:43-0500 Respiratory rate 18 /min DO Uyen Shane Work Phone: [facility] 10-09-2023 09:43-0500 SaO2% (BldA) [Mass fraction] 98 % DO Uyen Shane Work Phone: [facility] 10-09-2023 09:43-0500 Systolic blood pressure 160 mm[Hg] DO Uyen Shane Work Phone: [facility] 09-18-2023 10:53-0500 Body mass index (BMI) [Ratio] 37 kg/m2 DO Uyen Shane Work Phone: [facility] 09-18-2023 10:53-0500 Body temperature 98 [degF] DO Uyen Shane Work Phone: [facility] 09-18-2023 10:53-0500 Body weight 86.09 kg DO Uyen Shane Work Phone: [facility] 09-18-2023 10:53-0500 Diastolic blood pressure 70 mm[Hg] DO Uyen Shane Work Phone: [facility] 09-18-2023 10:53-0500 Heart rate 67 /min DO Uyen Shane Work Phone: [facility] 09-18-2023 10:53-0500 Respiratory rate 17 /min DO Uyen Shane Work Phone: [facility] 09-18-2023 10:53-0500 SaO2% (BldA) [Mass fraction] 99 % DO Uyen Shane Work Phone: [facility] 09-18-2023 10:53-0500 Systolic blood pressure 130 mm[Hg] DO Uyen Shane Work Phone: [facility] 09-18-2023 08:54-0500 Body mass index (BMI) [Ratio] 36.9 kg/m2 DO Uyen Shane Work Phone: [facility] 09-18-2023 08:54-0500 Body weight 85.72 kg DO Uyen Shane Work Phone: [facility] 09-18-2023 08:54-0500 Diastolic blood pressure 82 mm[Hg] DO Uyen Shane Work Phone: [facility] 09-18-2023 08:54-0500 Heart rate 71 /min DO Uyen Shane Work Phone: [facility] 09-18-2023 08:54-0500 Respiratory rate 20 /min DO Uyen Shane Work Phone: [facility] 09-18-2023 08:54-0500 SaO2% (BldA) [Mass fraction] 100 % DO Uyen Shane Work Phone: [facility] 09-18-2023 08:54-0500 Systolic blood pressure 143 mm[Hg] DO Uyen Shane Work Phone: [facility] 09-11-2023 11:14-0500 Body mass index (BMI) [Ratio] 37.3 kg/m2 DO Uyen Shane Work Phone: [facility] 09-11-2023 11:14-0500 Body temperature 97.9 [degF] DO Uyen Shane Work Phone: [facility] 09-11-2023 11:14-0500 Body weight 86.8 kg DO Uyen Shane Work Phone: [facility] 09-11-2023 11:14-0500 Diastolic blood pressure 81 mm[Hg] DO Uyen Shane Work Phone: [facility] 09-11-2023 11:14-0500 Heart rate 75 /min DO Uyen Shane Work Phone: [facility] 09-11-2023 11:14-0500 Respiratory rate 18 /min DO Uyen Shane Work Phone: [facility] 09-11-2023 11:14-0500 SaO2% (BldA) [Mass fraction] 95 % DO Uyen Shane Work Phone: [facility] 09-11-2023 11:14-0500 Systolic blood pressure 181 mm[Hg] DO Uyen Shane Work Phone: [facility] 08-14-2023 10:41-0400 Body mass index (BMI) [Ratio] 37 kg/m2 DO Uyen Shane Work Phone: [facility] 08-14-2023 10:41-0400 Body temperature 98.2 [degF] DO Uyen Shane Work Phone: [facility] 08-14-2023 10:41-0400 Body weight 85.95 kg DO Uyen Shane Work Phone: [facility] 08-14-2023 10:41-0400 Diastolic blood pressure 69 mm[Hg] DO Uyen Shane Work Phone: [facility] 08-14-2023 10:41-0400 Heart rate 64 /min DO Uyen Shane Work Phone: [facility] 08-14-2023 10:41-0400 Respiratory rate 18 /min DO Uyen Shane Work Phone: [facility] 08-14-2023 10:41-0400 SaO2% (BldA) [Mass fraction] 100 % DO Uyen Shane Work Phone: [facility] 08-14-2023 10:41-0400 Systolic blood pressure 149 mm[Hg] DO Uyen Shane Work Phone: [facility] 07-17-2023 10:17-0400 Body mass index (BMI) [Ratio] 37.5 kg/m2 DO Uyen Shane Work Phone: [facility] 07-17-2023 10:17-0400 Body temperature 98.3 [degF] DO Uyen Shane Work Phone: [facility] 07-17-2023 10:17-0400 Body weight 87.34 kg DO Uyen Shane Work Phone: [facility] 07-17-2023 10:17-0400 Diastolic blood pressure 72 mm[Hg] DO Uyen Shane Work Phone: [facility] 07-17-2023 10:17-0400 Heart rate 76 /min DO Uyen Shane Work Phone: [facility] 07-17-2023 10:17-0400 Respiratory rate 18 /min DO Uyen Shane Work Phone: [facility] 07-17-2023 10:17-0400 SaO2% (BldA) [Mass fraction] 99 % DO Uyen Shane Work Phone: [facility] 07-17-2023 10:17-0400 Systolic blood pressure 157 mm[Hg] DO Uyen Shane Work Phone: [facility] 06-19-2023 10:50-0400 Body mass index (BMI) [Ratio] 37.7 kg/m2 DO Uyen Shane Work Phone: [facility] 06-19-2023 10:50-0400 Body temperature 98.3 [degF] DO Uyen Shane Work Phone: [facility] 06-19-2023 10:50-0400 Body weight 87.68 kg DO Uyen Shane Work Phone: [facility] 06-19-2023 10:50-0400 Diastolic blood pressure 79 mm[Hg] DO Uyen Shane Work Phone: [facility] 06-19-2023 10:50-0400 Heart rate 70 /min DO Uyen Shane Work Phone: [facility] 06-19-2023 10:50-0400 Respiratory rate 18 /min DO Uyen Shane Work Phone: [facility] 06-19-2023 10:50-0400 SaO2% (BldA) [Mass fraction] 99 % DO Uyen Shane Work Phone: [facility] 06-19-2023 10:50-0400 Systolic blood pressure 148 mm[Hg] DO Uyen Shane Work Phone: [facility] 05-22-2023 11:52-0400 Body height 152.4 cm DO Uyen Shane Work Phone: [facility] 05-22-2023 11:48-0400 Body mass index (BMI) [Ratio] 37.5 kg/m2 DO Uyen Shane Work Phone: [facility] 05-22-2023 11:48-0400 Body temperature 96.6 [degF] DO Uyen Shane Work Phone: [facility] 05-22-2023 11:48-0400 Body weight 87.08 kg DO Uyen Shane Work Phone: [facility] 05-22-2023 11:48-0400 Diastolic blood pressure 83 mm[Hg] DO Uyen Shane Work Phone: [facility] 05-22-2023 11:48-0400 Heart rate 61 /min DO Uyen Shane Work Phone: [facility] 05-22-2023 11:48-0400 Respiratory rate 16 /min DO Uyen Shane Work Phone: [facility] 05-22-2023 11:48-0400 SaO2% (BldA) [Mass fraction] 98 % DO Uyen Shane Work Phone: [facility] 05-22-2023 11:48-0400 Systolic blood pressure 138 mm[Hg] DO Uyen Shane Work Phone: [facility] 05-08-2023 13:05-0400 Body height 152.4 cm DO Uyen Shane Work Phone: [facility] 05-08-2023 13:03-0400 Body mass index (BMI) [Ratio] 37.5 kg/m2 DO Uyen Shane Work Phone: [facility] 05-08-2023 13:03-0400 Body temperature 97.5 [degF] DO Uyen Shane Work Phone: [facility] 05-08-2023 13:03-0400 Body weight 87.25 kg DO Uyen Shane Work Phone: [facility] 05-08-2023 13:03-0400 Diastolic blood pressure 73 mm[Hg] DO Uyen Shane Work Phone: [facility] 05-08-2023 13:03-0400 Heart rate 58 /min DO Uyen Shane Work Phone: [facility] 05-08-2023 13:03-0400 Respiratory rate 16 /min DO Uyen Shane Work Phone: [facility] 05-08-2023 13:03-0400 SaO2% (BldA) [Mass fraction] 100 % DO Uyen Shane Work Phone: [facility] 05-08-2023 13:03-0400 Systolic blood pressure 149 mm[Hg] DO Uyen Shane Work Phone: [facility] 04-24-2023 09:35-0400 Body height 152.4 cm DO Uyen Shane Work Phone: [facility] 04-24-2023 09:34-0400 Body mass index (BMI) [Ratio] 37.5 kg/m2 DO Uyen Shane Work Phone: [facility] 04-24-2023 09:34-0400 Body temperature 98.2 [degF] DO Uyen Shane Work Phone: [facility] 04-24-2023 09:34-0400 Body weight 87.2 kg DO Uyen Shane Work Phone: [facility] 04-24-2023 09:34-0400 Diastolic blood pressure 79 mm[Hg] DO Uyen Shane Work Phone: [facility] 04-24-2023 09:34-0400 Heart rate 72 /min DO Uyen Shane Work Phone: [facility] 04-24-2023 09:34-0400 Respiratory rate 16 /min DO Uyen Shane Work Phone: [facility] 04-24-2023 09:34-0400 SaO2% (BldA) [Mass fraction] 100 % DO Uyen Shane Work Phone: [facility] 04-24-2023 09:34-0400 Systolic blood pressure 158 mm[Hg] DO Uyen Shane Work Phone: [facility] 04-19-2023 14:13-0400 Body mass index (BMI) [Ratio] 37.3 kg/m2 DO Uyen Shane Work Phone: [facility] 04-19-2023 14:13-0400 Body temperature 98.1 [degF] DO Uyen Shane Work Phone: [facility] 04-19-2023 14:13-0400 Body weight 86.63 kg DO Uyen Shane Work Phone: [facility] 04-19-2023 14:13-0400 Diastolic blood pressure 76 mm[Hg] DO Uyen Shane Work Phone: [facility] 04-19-2023 14:13-0400 Heart rate 74 /min DO Uyen Shane Work Phone: [facility] 04-19-2023 14:13-0400 Respiratory rate 18 /min DO Uyen Shane Work Phone: [facility] 04-19-2023 14:13-0400 SaO2% (BldA) [Mass fraction] 97 % DO Uyen Shane Work Phone: [facility] 04-19-2023 14:13-0400 Systolic blood pressure 144 mm[Hg] DO Uyen Shane Work Phone: [facility] 04-09-2023 11:48-0400 Body height 152.4 cm DO Uyen Shane Work Phone: [facility] 04-09-2023 11:48-0400 Body mass index (BMI) [Ratio] 37.2 kg/m2 DO Uyen Shane Work Phone: [facility] 04-09-2023 11:48-0400 Body temperature 97.6 [degF] DO Uyen Shane Work Phone: [facility] 04-09-2023 11:48-0400 Body weight 86.4 kg DO Uyen Shane Work Phone: [facility] 04-09-2023 11:48-0400 Diastolic blood pressure 89 mm[Hg] DO Uyen Shane Work Phone: [facility] 04-09-2023 11:48-0400 Heart rate 87 /min DO Uyen Shane Work Phone: [facility] 04-09-2023 11:48-0400 Respiratory rate 18 /min DO Uyen Shane Work Phone: [facility] 04-09-2023 11:48-0400 SaO2% (BldA) [Mass fraction] 98 % DO Uyen Shane Work Phone: [facility] 04-09-2023 11:48-0400 Systolic blood pressure 187 mm[Hg] DO Uyen Shane Work Phone: [facility] 04-03-2023 10:04-0400 Body mass index (BMI) [Ratio] 37.7 kg/m2 DO Uyen Shane Work Phone: [facility] 04-03-2023 10:04-0400 Body weight 87.54 kg DO Uyen Shane Work Phone: [facility] 04-03-2023 10:04-0400 Diastolic blood pressure 83 mm[Hg] DO Uyen Shane Work Phone: [facility] 04-03-2023 10:04-0400 Heart rate 66 /min DO Uyen Shane Work Phone: [facility] 04-03-2023 10:04-0400 Respiratory rate 20 /min DO Uyen Shane Work Phone: [facility] 04-03-2023 10:04-0400 SaO2% (BldA) [Mass fraction] 95 % DO Uyen Shaen Work Phone: [facility] 04-03-2023 10:04-0400 Systolic blood pressure 145 mm[Hg] DO Uyen Shane Work Phone: [facility] 03-01-2023 14:52-0400 Body mass index (BMI) [Ratio] 37.5 kg/m2 DO Uyen Shane Work Phone: [facility] 03-01-2023 14:52-0400 Body temperature 97.3 [degF] DO Uyen Shane Work Phone: [facility] 03-01-2023 14:52-0400 Body weight 87.11 kg DO Uyen Shane Work Phone: [facility] 03-01-2023 14:52-0400 Diastolic blood pressure 86 mm[Hg] DO Uyen Shane Work Phone: [facility] 03-01-2023 14:52-0400 Heart rate 67 /min DO Uyen Shane Work Phone: [facility] 03-01-2023 14:52-0400 Respiratory rate 16 /min DO Uyen Shane Work Phone: [facility] 03-01-2023 14:52-0400 SaO2% (BldA) [Mass fraction] 100 % DO Uyen Shane Work Phone: [facility] 03-01-2023 14:52-0400 Systolic blood pressure 172 mm[Hg] DO Uyen Shane Work Phone: [facility] 02-14-2023 14:33-0400 Body mass index (BMI) [Ratio] 37.3 kg/m2 DO Uyen Shane Work Phone: [facility] 02-14-2023 14:33-0400 Body temperature 98.4 [degF] DO Uyen Shane Work Phone: [facility] 02-14-2023 14:33-0400 Body weight 86.63 kg DO Uyen Shane Work Phone: [facility] 02-14-2023 14:33-0400 Diastolic blood pressure 89 mm[Hg] DO Uyen Shane Work Phone: [facility] 02-14-2023 14:33-0400 Heart rate 69 /min DO Uyen Shane Work Phone: [facility] 02-14-2023 14:33-0400 Respiratory rate 18 /min DO Uyen Shane Work Phone: [facility] 02-14-2023 14:33-0400 SaO2% (BldA) [Mass fraction] 100 % DO Uyen Shane Work Phone: [facility] 02-14-2023 14:33-0400 Systolic blood pressure 149 mm[Hg] DO Uyenfany Tapianger Work Phone: [facility] 01-08-2023 10:58-0400 Body mass index (BMI) [Ratio] 37.5 kg/m2 DO Uyen Shane Work Phone: [facility] 01-08-2023 10:58-0400 Body temperature 98.2 [degF] DO Uyen Shane Work Phone: [facility] [facility]23 10:58-0400 Body weight 87.08 kg DO Uyenfany Tapianger Work Phone: [facility] 01-08-2023 10:58-0400 Diastolic blood pressure 80 mm[Hg] DO Uyenfany Tapianger Work Phone: [facility] 01-08-2023 10:58-0400 Heart rate 67 /min DO Uyenfany Tapianger Work Phone: [facility] 01-08-2023 10:58-0400 Respiratory rate 16 /min DO Uyen Tapianger Work Phone: [facility] 01-08-2023 10:58-0400 SaO2% (BldA) [Mass fraction] 98 % DO Uyen Tapianger Work Phone: [facility] 01-08-2023 10:58-0400 Systolic blood pressure 124 mm[Hg] DO Uyenfany Tapianger Work Phone: [facility] 03-31-2022 13:53-0400 Body height 152.4 cm VOLUNTEER RECRUITER-C Kortney Arely VOLUNTEER RECRUITER Work Phone: [facility] Work Phone: 03-31-2022 13:53-0400 Body mass index (BMI) [Ratio] 33.7 kg/m2 VOLUNTEER RECRUITER-C Kortney Arely VOLUNTEER RECRUITER Work Phone: [facility] Work Phone: 03-31-2022 13:53-0400 Body weight 78.52 kg VOLUNTEER RECRUITER-C Kortney Arely VOLUNTEER RECRUITER Work Phone: [facility] Work Phone: 03-31-2022 13:53-0400 Diastolic blood pressure 80 mm[Hg] VOLUNTEER RECRUITER-C Kortney Arely VOLUNTEER RECRUITER Work Phone: [facility] Work Phone: 03-31-2022 13:53-0400 Heart rate 76 /min VOLUNTEER RECRUITER-C Kortney Arely VOLUNTEER RECRUITER Work Phone: [facility] Work Phone: 03-31-2022 13:53-0400 Respiratory rate 18 /min VOLUNTEER RECRUITER-C Kortney Arely VOLUNTEER RECRUITER Work Phone: [facility] Work Phone: 03-31-2022 13:53-0400 Systolic blood pressure 168 mm[Hg] VOLUNTEER RECRUITER-C Kortney Arely VOLUNTEER RECRUITER Work Phone: [facility] Work Phone: 03-16-2022 14:16-0400 Body mass index (BMI) [Ratio] 33.5 kg/m2 VOLUNTEER RECRUITER-C Kortney Arely VOLUNTEER RECRUITER Work Phone: [facility] Work Phone: 03-16-2022 14:16-0400 Body temperature 98.2 [degF] VOLUNTEER RECRUITER-C Kortney Arely VOLUNTEER RECRUITER Work Phone: [facility] Work Phone: 03-16-2022 14:16-0400 Body weight 78.01 kg VOLUNTEER RECRUITER-C Kortney Arely VOLUNTEER RECRUITER Work Phone: [facility] Work Phone: 03-16-2022 14:16-0400 Diastolic blood pressure 77 mm[Hg] VOLUNTEER RECRUITER-C Kortney Arely VOLUNTEER RECRUITER Work Phone: [facility] Work Phone: 03-16-2022 14:16-0400 Heart rate 76 /min VOLUNTEER RECRUITER-C Kortney Arely VOLUNTEER RECRUITER Work Phone: [facility] Work Phone: 03-16-2022 14:16-0400 Respiratory rate 15 /min VOLUNTEER RECRUITER-C Kortney Arely VOLUNTEER RECRUITER Work Phone: [facility] Work Phone: 03-16-2022 14:16-0400 SaO2% (BldA) [Mass fraction] 99 % VOLUNTEER RECRUITER-C Kortney Arely VOLUNTEER RECRUITER Work Phone: [facility] Work Phone: 03-16-2022 14:16-0400 Systolic blood pressure 146 mm[Hg] VOLUNTEER RECRUITER-C Kortney Arely VOLUNTEER RECRUITER Work Phone: [facility] Work Phone: 02-16-2022 15:47-0400 Body mass index (BMI) [Ratio] 33.3 kg/m2 VOLUNTEER RECRUITER-C Kortney Arely VOLUNTEER RECRUITER Work Phone: [facility] Work Phone: 02-16-2022 15:47-0400 Body temperature 98.6 [degF] VOLUNTEER RECRUITER-C Kortney Arely VOLUNTEER RECRUITER Work Phone: [facility] Work Phone: 02-16-2022 15:47-0400 Body weight 77.28 kg VOLUNTEER RECRUITER-C Kortney Arely VOLUNTEER RECRUITER Work Phone: [facility] Work Phone: 02-16-2022 15:47-0400 Diastolic blood pressure 78 mm[Hg] VOLUNTEER RECRUITER-C Kortney Arely VOLUNTEER RECRUITER Work Phone: [facility] Work Phone: 02-16-2022 15:47-0400 Heart rate 78 /min VOLUNTEER RECRUITER-C Kortney Arely VOLUNTEER RECRUITER Work Phone: [facility] Work Phone: 02-16-2022 15:47-0400 Respiratory rate 15 /min VOLUNTEER RECRUITER-C Kortney Arely VOLUNTEER RECRUITER Work Phone: [facility] Work Phone: 02-16-2022 15:47-0400 SaO2% (BldA) [Mass fraction] 97 % VOLUNTEER RECRUITER-C Kortney Arely VOLUNTEER RECRUITER Work Phone: [facility] Work Phone: 02-16-2022 15:47-0400 Systolic blood pressure 161 mm[Hg] VOLUNTEER RECRUITER-C Kortney Arely VOLUNTEER RECRUITER Work Phone: [facility] Work Phone: 01-19-2022 10:51-0400 Body mass index (BMI) [Ratio] 31.7 kg/m2 VOLUNTEER RECRUITER-C Kortney Arely VOLUNTEER RECRUITER Work Phone: [facility] Work Phone: 01-19-2022 10:51-0400 Body temperature 98.3 [degF] VOLUNTEER RECRUITER-C Kortney Arely VOLUNTEER RECRUITER Work Phone: [facility] Work Phone: 01-19-2022 10:51-0400 Body weight 73.73 kg VOLUNTEER RECRUITER-C Kortney Arely VOLUNTEER RECRUITER Work Phone: [facility] Work Phone: 01-19-2022 10:51-0400 Diastolic blood pressure 85 mm[Hg] VOLUNTEER RECRUITER-C Kortney Arely VOLUNTEER RECRUITER Work Phone: [facility] Work Phone: 01-19-2022 10:51-0400 Heart rate 68 /min VOLUNTEER RECRUITER-C Kortney Arely VOLUNTEER RECRUITER Work Phone: [facility] Work Phone: 01-19-2022 10:51-0400 Respiratory rate 15 /min VOLUNTEER RECRUITER-C Kortney Arely VOLUNTEER RECRUITER Work Phone: [facility] Work Phone: 01-19-2022 10:51-0400 SaO2% (BldA) [Mass fraction] 98 % VOLUNTEER RECRUITER-C Kortney Arely VOLUNTEER RECRUITER Work Phone: [facility] Work Phone: 01-19-2022 10:51-0400 Systolic blood pressure 161 mm[Hg] VOLUNTEER RECRUITER-C Kortney Arely VOLUNTEER RECRUITER Work Phone: [facility] Work Phone: 01-02-2022 14:36-0400 Diastolic blood pressure 78 mm[Hg] VOLUNTEER RECRUITER-C Kortney Arely VOLUNTEER RECRUITER Work Phone: [facility] Work Phone: 01-02-2022 14:36-0400 Heart rate 78 /min VOLUNTEER RECRUITER-C Kortney Arely VOLUNTEER RECRUITER Work Phone: [facility] Work Phone: 01-02-2022 14:36-0400 Respiratory rate 18 /min VOLUNTEER RECRUITER-C Kortney Arely VOLUNTEER RECRUITER Work Phone: [facility] Work Phone: 01-02-2022 14:36-0400 SaO2% (BldA) [Mass fraction] 99 % VOLUNTEER RECRUITER-C Kortney Arely VOLUNTEER RECRUITER Work Phone: [facility] Work Phone: 01-02-2022 14:36-0400 Systolic blood pressure 140 mm[Hg] VOLUNTEER RECRUITER-C Kortney Arely VOLUNTEER RECRUITER Work Phone: [facility] Work Phone: 01-02-2022 14:36-0400 Diastolic blood pressure 78 mm[Hg] Dr. Steven Tubbs Work Phone: [facility] Work Phone: 01-02-2022 14:36-0400 Heart rate 78 /min Dr. Steven Tubbs Work Phone: [facility] Work Phone: 01-02-2022 14:36-0400 Respiratory rate 18 /min Dr. Steven Tubbs Work Phone: [facility] Work Phone: 01-02-2022 14:36-0400 SaO2% (BldA) [Mass fraction] 99 % Dr. Steven Tubbs Work Phone: [facility] Work Phone: 01-02-2022 14:36-0400 Systolic blood pressure 140 mm[Hg] Dr. Steven Tubbs Work Phone: [facility] Work Phone: 12-22-2021 14:59-0500 Body mass index (BMI) [Ratio] 31.1 kg/m2 VOLUNTEER RECRUITER-C Kortney Arely VOLUNTEER RECRUITER Work Phone: [facility] Work Phone: 12-22-2021 14:59-0500 Body temperature 98.5 [degF] VOLUNTEER RECRUITER-C Kortney Arely VOLUNTEER RECRUITER Work Phone: [facility] Work Phone: 12-22-2021 14:59-0500 Body weight 72.17 kg VOLUNTEER RECRUITER-C Kortney Arely VOLUNTEER RECRUITER Work Phone: [facility] Work Phone: 12-22-2021 14:59-0500 Diastolic blood pressure 80 mm[Hg] VOLUNTEER RECRUITER-C Kortney Arely VOLUNTEER RECRUITER Work Phone: [facility] Work Phone: 12-22-2021 14:59-0500 Heart rate 65 /min VOLUNTEER RECRUITER-C Kortney Arely VOLUNTEER RECRUITER Work Phone: [facility] Work Phone: 12-22-2021 14:59-0500 Respiratory rate 15 /min VOLUNTEER RECRUITER-C Kortney Arely VOLUNTEER RECRUITER Work Phone: [facility] Work Phone: 12-22-2021 14:59-0500 SaO2% (BldA) [Mass fraction] 97 % VOLUNTEER RECRUITER-C Kortney Arely VOLUNTEER RECRUITER Work Phone: [facility] Work Phone: 12-22-2021 14:59-0500 Systolic blood pressure 139 mm[Hg] VOLUNTEER RECRUITER-C Kortney Arely VOLUNTEER RECRUITER Work Phone: [facility] Work Phone: 12-22-2021 13:59-0500 Body mass index (BMI) [Ratio] 31.1 kg/m2 Dr. Steven Tubbs Work Phone: [facility] Work Phone: 12-22-2021 13:59-0500 Body temperature 98.5 [degF] Dr. Steven Tubbs Work Phone: [facility] Work Phone: 12-22-2021 13:59-0500 Body weight 72.[address] Steven Tubbs Work Phone: [facility] Work Phone: 12-22-2021 13:59-0500 Diastolic blood pressure 80 mm[Hg] Dr. Steven Tubbs Work Phone: [facility] Work Phone: 12-22-2021 13:59-0500 Heart rate 65 /min Dr. Steven Tubbs Work Phone: [facility] Work Phone: 12-22-2021 13:59-0500 Respiratory rate 15 /min Dr. Steven Tubbs Work Phone: [facility] Work Phone: 12-22-2021 13:59-0500 SaO2% (BldA) [Mass fraction] 97 % Dr. Steven Tubbs Work Phone: [facility] Work Phone: 12-22-2021 13:59-0500 Systolic blood pressure 139 mm[Hg] Dr. Steven Tubbs Work Phone: [facility] Work Phone: 11-23-2021 08:45-0500 Body mass index (BMI) [Ratio] 30.2 kg/m2 Dr. Steven Tubbs Work Phone: [facility] Work Phone: 11-23-2021 08:45-0500 Body temperature 98.4 [degF] Dr. Steven Tubbs Work Phone: [facility] Work Phone: 11-23-2021 08:45-0500 Body weight 70.[address] Steven Tubbs Work Phone: [facility] Work Phone: 11-23-2021 08:45-0500 Diastolic blood pressure 77 mm[Hg] Dr. Steven Tubbs Work Phone: [facility] Work Phone: 11-23-2021 08:45-0500 Heart rate 73 /min Dr. Steven Tubbs Work Phone: [facility] Work Phone: 11-23-2021 08:45-0500 Respiratory rate 16 /min Dr. Steven Tubbs Work Phone: [facility] Work Phone: 11-23-2021 08:45-0500 SaO2% (BldA) [Mass fraction] 97 % Dr. Steven Tubbs Work Phone: [facility] Work Phone: 11-23-2021 08:45-0500 Systolic blood pressure 170 mm[Hg] Dr. Steven Tubbs Work Phone: [facility] Work Phone: 11-15-2021 08:56-0500 Body mass index (BMI) [Ratio] 30.1 kg/m2 Dr. Steven Tubbs Work Phone: [facility] Work Phone: 11-15-2021 08:56-0500 Body temperature 98.2 [degF] Dr. Steven Tubbs Work Phone: [facility] Work Phone: 11-15-2021 08:56-0500 Body weight 69.[address] Steven Tubbs Work Phone: [facility] Work Phone: 11-15-2021 08:56-0500 Diastolic blood pressure 83 mm[Hg] Dr. Steven Tubbs Work Phone: [facility] Work Phone: 11-15-2021 08:56-0500 Heart rate 64 /min Dr. Steven Tubbs Work Phone: [facility] Work Phone: 11-15-2021 08:56-0500 Respiratory rate 14 /min Dr. Steven Tubbs Work Phone: [facility] Work Phone: 11-15-2021 08:56-0500 SaO2% (BldA) [Mass fraction] 98 % Dr. Steven Tubbs Work Phone: [facility] Work Phone: 11-15-2021 08:56-0500 Systolic blood pressure 144 mm[Hg] Dr. Steven Tubbs Work Phone: [facility] Work Phone: 11-09-2021 08:33-0500 Body mass index (BMI) [Ratio] 29.7 kg/m2 Dr. Steven Tubbs Work Phone: [facility] Work Phone: 11-09-2021 08:33-0500 Body temperature 98.2 [degF] Dr. Steven Tubbs Work Phone: [facility] Work Phone: 11-09-2021 08:33-0500 Body weight 69.[address] Steven Tubbs Work Phone: [facility] Work Phone: 11-09-2021 08:33-0500 Diastolic blood pressure 67 mm[Hg] Dr. Steven Tubbs Work Phone: [facility] Work Phone: 11-09-2021 08:33-0500 Heart rate 83 /min Dr. Steven Tubbs Work Phone: [facility] Work Phone: 11-09-2021 08:33-0500 Respiratory rate 15 /min Dr. Steven Tubbs Work Phone: [facility] Work Phone: 11-09-2021 08:33-0500 SaO2% (BldA) [Mass fraction] 97 % Dr. Steven Tubbs Work Phone: [facility] Work Phone: 11-09-2021 08:33-0500 Systolic blood pressure 164 mm[Hg] Dr. Steven Tubbs Work Phone: [facility] Work Phone: 11-02-2021 12:03-0500 Body mass index (BMI) [Ratio] 29.9 kg/m2 Dr. Steven Tubbs Work Phone: [facility] Work Phone: 11-02-2021 12:03-0500 Body temperature 98.5 [degF] Dr. Steven Tubbs Work Phone: [facility] Work Phone: 11-02-2021 12:03-0500 Body weight 69.[address] Steven Tubbs Work Phone: [facility] Work Phone: 11-02-2021 12:03-0500 Diastolic blood pressure 87 mm[Hg] Dr. Steven Tubbs Work Phone: [facility] Work Phone: 11-02-2021 12:03-0500 Heart rate 75 /min Dr. Steven Tubbs Work Phone: [facility] Work Phone: 11-02-2021 12:03-0500 Respiratory rate 15 /min Dr. Steven Tubbs Work Phone: [facility] Work Phone: 11-02-2021 12:03-0500 SaO2% (BldA) [Mass fraction] 97 % Dr. Steven Tubbs Work Phone: [facility] Work Phone: 11-02-2021 12:03-0500 Systolic blood pressure 174 mm[Hg] Dr. Steven Tubbs Work Phone: [facility] Work Phone: 10-27-2021 12:51-0500 Body mass index (BMI) [Ratio] 29.5 kg/m2 Dr. Steven Tubbs Work Phone: [facility] Work Phone: 10-27-2021 12:51-0500 Body temperature 97.4 [degF] Dr. Steven Tubbs Work Phone: [facility] Work Phone: 10-27-2021 12:51-0500 Body weight 68.[address] Steven Tubbs Work Phone: [facility] Work Phone: 10-27-2021 12:51-0500 Diastolic blood pressure 86 mm[Hg] Dr. Steven Tubbs Work Phone: [facility] Work Phone: 10-27-2021 12:51-0500 Heart rate 77 /min Dr. Steven Tubbs Work Phone: [facility] Work Phone: 10-27-2021 12:51-0500 Respiratory rate 17 /min Dr. Steven Tubbs Work Phone: [facility] Work Phone: 10-27-2021 12:51-0500 SaO2% (BldA) [Mass fraction] 98 % Dr. Steven Tubbs Work Phone: [facility] Work Phone: 10-27-2021 12:51-0500 Systolic blood pressure 168 mm[Hg] Dr. Steven Tubbs Work Phone: [facility] Work Phone: 10-04-2021 12:10-0500 Body temperature 96.5 [degF] Dr. Steven Tubbs Work Phone: [facility] Work Phone: 10-04-2021 12:10-0500 Diastolic blood pressure 78 mm[Hg] Dr. Steven Tubbs Work Phone: [facility] Work Phone: 10-04-2021 12:10-0500 Heart rate 75 /min Dr. Steven Tubbs Work Phone: [facility] Work Phone: 10-04-2021 12:10-0500 Respiratory rate 16 /min Dr. Steven Tubbs Work Phone: [facility] Work Phone: 10-04-2021 12:10-0500 SaO2% (BldA) [Mass fraction] 97 % Dr. Steven Tubbs Work Phone: [facility] Work Phone: 10-04-2021 12:10-0500 Systolic blood pressure 148 mm[Hg] Dr. Steven Tubbs Work Phone: [facility] Work Phone: Encounters Encounter Date Encounter Type Care Provider Facility Start: 04-08-2025 End: 04-20-2025 Evaluation and management of inpatient SHAUN CAMEJO Facility:[facility] Start: 04-08-2025 End: 04-08-2025 Emergency department patient visit Jorge A Barclay MD Work Phone: -Emergency Department Work Phone: Start: 04-07-2025 End: 04-07-[address] Alex Love MD -[facility] Work Phone: Start: 04-07-2025 End: 04-07-2025 ambulatory Jorge A Barclay MD Work Phone: [facility] Work Phone: Start: 04-07-2025 End: 04-07-2025 ambulatory Jorge A Barclay MD Work Phone: -Outpatient [facility] D[facility] Start: 04-07-2025 End: 04-07-[address] Jorge A Barclay MD -[facility] Work Phone: Start: 04-07-2025 End: 04-07-[facility] Start: 04-02-2025 ambulatory [facility] Facility: [facility] Start: 04-02-[address] Alex Love MD -[facility] Start: 03-10-2025 End: 03-10-[address] Alex Love MD -[facility] Work Phone: Start: 03-10-2025 End: 03-10-2025 ambulatory Jorge A Barclay MD Work Phone: [facility] Work Phone: Start: 03-05-[address] Alex Love MD -[facility] Start: 02-09-2025 End: 02-09-[address] Alex Love MD -[facility] Work Phone: Start: 02-09-2025 End: 02-09-2025 ambulatory Jorge A Barclay Facility:[facility] Start: 01-01-2025 Non-patient / Non-visit [facility] Work Phone: Start: 01-01-2025 ambulatory Jorge A Barclay Facility:[facility] Start: 12-31-2024 End: 12-31-[address] Alex Love MD -[facility] Work Phone: Start: 12-31-2024 End: 12-31-2024 ambulatory Chalclarence Barclay Facility:[facility] Start: 12-24-2024 End: 12-24-[address] Alex Love MD -[facility] Work Phone: Start: 12-24-2024 End: 12-24-2024 ambulatory Chalon Nimco Facility:[facility] Start: 12-18-2024 End: 12-18-[address] Stiven Steele MD -[facility] Work Phone: Start: 12-18-2024 End: 12-18-2024 ambulatory Stiven Steele Facility:[facility] Start: 12-01-2024 End: 12-01-2024 Patient encounter procedure Susanne Jessica VOLUNTEER RECRUITER-C -[facility] Work Phone: Start: 12-01-2024 End: 12-01-2024 ambulatory Susanne Jessica VOLUNTEER RECRUITER Facility:[facility] Start: 11-27-2024 End: 11-27-2024 Patient encounter procedure Susanne Jessica VOLUNTEER RECRUITER-C -[facility] Work Phone: Start: 11-26-2024 End: 11-26-2024 Patient encounter procedure Susanne Jessica VOLUNTEER RECRUITER-C -[facility] Work Phone: Start: 11-26-2024 End: 11-27-2024 ambulatory Susanne Jessica VOLUNTEER RECRUITER Facility:[facility] Start: 09-24-2024 End: 09-24-2024 ambulatory Chalon Nimco Facility:[facility] Start: 09-18-2024 End: 09-18-2024 ambulatory Steven Gretchen Roberto VOLUNTEER RECRUITER Facility:[facility] Start: 08-26-2024 End: 08-26-2024 ambulatory Chalon Nimco Facility:[facility] Start: 08-21-2024 End: 08-21-2024 ambulatory Collin Cintron Facility:[facility] Start: 06-24-2024 End: 06-24-2024 ambulatory Chalon Nimco Facility:[facility] Start: 05-26-2024 End: 05-26-2024 ambulatory Chalon Nimco Facility:[facility] Start: 04-24-2024 End: 04-24-2024 ambulatory Chalon Nimco Facility:[facility] Start: 04-21-2024 End: 04-21-2024 ambulatory Alex Love Facility:[facility] Start: 10-09-2023 Registered Recurring DO Kathia Lynn Work Phone: [facility] Start: 10-09-2023 End: 10-09-2023 Patient encounter procedure DO Uyen Lynn [facility] Work [facility]: Start: 10-04-2023 End: 10-04-2023 ambulatory DO Uyen Tapianger Work Phone: [facility] Work Phone: Start: 10-04-2023 End: 10-04-2023 Patient encounter procedure DO Uyen Tapianger Work Phone: [facility] Work Phone: Start: 09-18-2023 End: 09-18-2023 Patient encounter procedure DO Uyen Tapianger Work Phone: [facility] Work Phone: Start: 09-18-2023 End: 09-18-2023 Patient encounter procedure DO Uyen Lynn Work Phone: [facility] Work Phone: Start: 09-11-2023 End: 09-11-2023 Patient encounter procedure DO Uyen Lynn Work Phone: [facility] Work Phone: Start: 08-14-2023 End: 08-14-2023 Patient encounter procedure DO Uyen Lynn [facility] Work [facility]: Start: 07-17-2023 End: 07-17-2023 Patient encounter procedure DO Uyen Carroller [facility] Work [facility]: Start: 06-19-2023 End: 06-19-2023 Patient encounter procedure DO Uyen Tapianger Work Phone: [facility] Work Phone: Start: 05-22-2023 End: 05-22-2023 Patient encounter procedure DO Uyen Tapianger Work Phone: [facility] Work Phone: Start: 05-22-2023 Registered Recurring DO Kathia Carroller Work Phone: [facility] Start: 05-21-2023 End: 05-21-2023 ambulatory DO Uyen M Shane Work Phone: [facility] Work Phone: Start: 05-21-2023 End: 05-21-2023 Patient encounter procedure DO Uyen Carroller Work Phone: [facility]-Pulmonary Services/Neurology Work Phone: Start: 05-17-2023 End: 05-17-2023 ambulatory DO Uyen M Shane Work Phone: [facility] Work Phone: Start: 05-17-2023 End: 05-17-2023 Patient encounter procedure DO Uyen Carroller Work Phone: [facility] Start: 05-08-2023 Registered Recurring DO Kathia borges Shane Work Phone: [facility] Start: 05-08-2023 End: 05-08-2023 Patient encounter procedure DO Uyen Carroller Work Phone: [facility] Work Phone: Start: 05-07-2023 End: 05-07-2023 ambulatory DO Uyen M Shane Work Phone: [facility] Work Phone: Start: 05-07-2023 End: 05-07-2023 Patient encounter procedure DO [facility] Carroller [facility] Start: 04-24-2023 Registered Recurring DO Kathia Lynn Work Phone: [facility] Start: 04-24-2023 End: 04-24-2023 Patient encounter procedure DO Uyen Carroller Work Phone: [facility] Work Phone: Start: 04-23-2023 End: 04-23-2023 ambulatory DO Uyen M Shane Work Phone: [facility] Work Phone: Start: 04-23-2023 End: 04-23-2023 Patient encounter procedure DO Uyen Carroller [facility] Work [facility] Start: 04-19-2023 End: 04-19-2023 Patient encounter procedure DO Uyen Carroller Work Phone: [facility] Work Phone: Start: 04-09-2023 Registered Recurring DO Kathia n Shane Work Phone: [facility] Start: 04-09-2023 End: 04-09-2023 Patient encounter procedure DO Uyen Carroller Work Phone: [facility] Start: 04-03-2023 End: 04-03-2023 ambulatory DO Uyen M Shane Work Phone: [facility] Work Phone: Start: 04-03-2023 End: 04-03-2023 Patient encounter procedure DO Uyen Tapianger Work Phone: [facility]-Laboratory Start: 04-03-2023 End: 04-03-2023 Patient encounter procedure DO Uyen Tapianger Work Phone: [facility] Start: 04-02-2023 Telephone encounter Rand Calzada DO Work Phone: General Surgery Comment on above: Results Start: 03-23-2023 End: 03-23-2023 ambulatory [facility] [facility] Facility:[facility] Start: 03-23-2023 End: 03-23-2023 Patient encounter procedure Rand Calzada DO Work Phone: General Surgery Comment on above: Breast cancer metast 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 Comment on above: Localized enlarged l ymph nodes (Primary Dx); Breast cancer metastasized to axillary lymph node, left (HCC) Start: 09-14-2022 End: 09-14-2022 ambulatory [facility] Facility:[facility] Start: 09-14-2022 End: 09-14-2022 Subsequent hospital visit by physician Deidre [facility] (I-Stat) Work Phone: Radiology Comment on above: Localized enlarged l ymph nodes [R59.0] Start: 06-15-2022 End: 06-15-2022 [facility] Facility:[facility] Start: 06-15-2022 End: 06-15-2022 Patient encounter procedure Rand Calzada DO Work Phone: [facility] Comment on above: Localized enlarged l ymph nodes (Primary Dx); Breast cancer metastasized to axillary lymph node, left (HCC) Start: 06-15-2022 End: 06-15-2022 Subsequent hospital visit by physician Diagnostic Mammo [facility] Comment on above: Breast cancer metast asized to axillary lymph node, left (HCC) [C50.912, C77.3] Start: 05-22-2022 Orders Only Ivette porter LPN Work Phone: [facility] Comment on above: Breast cancer metast asized to axillary lymph node, left (HCC) (Primary Dx) Start: 04-01-2022 End: 04-01-2022 Patient encounter procedure VOLUNTEER RECRUITER-Jean Marie Mcgee VOLUNTEER RECRUITER Work Phone: [facility] Start: 03-31-2022 End: 03-31-2022 Patient encounter procedure VOLUNTEER RECRUITERDoris Mcgee VOLUNTEER RECRUITER Work Phone: [facility] Start: 03-16-2022 End: 03-16-2022 Patient encounter procedure ROBERTO Mcgee VOLUNTEER RECRUITER Work Phone: [facility] Start: 03-16-2022 Registered Recurring ROBERTO Mcgee VOLUNTEER RECRUITER Work Phone: [facility] Start: 02-21-2022 Non-patient / Non-visit VOLUNTEER RECRUITER-Jean Marie Mcgee VOLUNTEER RECRUITER Work Phone: [facility] Start: 02-16-2022 End: 02-16-2022 Patient encounter procedure ROBERTO Mcgee VOLUNTEER RECRUITER Work Phone: [facility] Start: 01-19-2022 End: 01-19-2022 Patient encounter procedure VOLUNTEER RECRUITERDoris Mcgee VOLUNTEER RECRUITER Work Phone: [facility] Start: 01-09-2022 End: 01-09-[address] Steven Tubbs Work Phone: [facility] Start: 01-02-2022 End: 01-02-[address] Steven Tubbs Work Phone: [facility] Start: 12-22-2021 End: 12-22-[address] Steven Tubbs Work Phone: [facility] Start: 12-08-2021 End: 12-08-2021 Subsequent hospital visit by physician Diagnostic Mammo [facility] Start: 11-23-2021 End: 11-23-[address] Steven Tubbs Work Phone: [facility] Start: 11-21-2021 End: 11-21-[address] Steven Tubbs Work Phone: [facility] Start: 11-17-2021 End: 11-17-[address] Steven Tubbs Work Phone: [facility] Start: 11-16-[address] Steven Tubbs Work Phone: [facility] Start: 11-15-2021 End: 11-15-[address] Steven Tubbs Work Phone: [facility] Start: 11-09-2021 End: 11-09-[address] Steven Tubbs Work Phone: [facility] Start: 11-07-2021 Non-patient / Non-visit Dr. Mariana Tubbs Work Phone: [facility] Start: 11-07-2021 End: 11-07-[address] Steven Tubbs Work Phone: [facility] Start: 11-04-2021 End: 11-04-[address] Steven Tubbs Work Phone: [facility], [facility] Start: 11-02-2021 End: 11-02-[address] Steven Tubbs Work Phone: [facility] Start: 10-27-2021 End: 10-27-[address] Steven Tubbs Work Phone: [facility], Specimen Start: 10-27-2021 End: 10-27-[address] Steven Tubbs Work Phone: [facility] Start: 10-26-2021 End: 10-26-[address] Steven Tubbs Work Phone: [facility] Start: 10-04-2021 End: 10-04-[address] Steven Tubbs Work Phone: [facility] Procedures Date Procedure Procedure Detail Performing Clinician Start: 04-20-2025 Assay of magnesium Wyatt as A Zammit PA-C Work Phone: Start: 04-20-2025 Physiotherapy of chest [facility] HOSPITAL RECEPTIONIST-LIBRARY INFORMATION TECHNICIAN Work Phone: Start: 04-19-2025 Physiotherapy of chest [facility] HOSPITAL RECEPTIONIST-LIBRARY INFORMATION TECHNICIAN Work Phone: Start: 04-19-2025 Assay of magnesium Wyatt as A Zammit PA-C Work Phone: Start: 04-18-2025 Assay of magnesium Wyatt as A Zammit PA-C Work Phone: Start: 04-18-2025 Physiotherapy of chest Naserin [facility] HOSPITAL RECEPTIONIST-LIBRARY INFORMATION TECHNICIAN Work Phone: Start: 04-17-2025 CARDIAC RHYTHM (SCANNED) Other Other OT Start: 04-17-2025 Assay of magnesium Wyatt as A Zammit PA-C Work Phone: Start: 04-17-2025 Physiotherapy of chest Naserin [facility] HOSPITAL RECEPTIONIST-LIBRARY INFORMATION TECHNICIAN Work Phone: Start: 04-16-2025 Assay of magnesium Wyatt as A Zammit PA-C Work Phone: Start: 04-16-2025 Physiotherapy of chest Naserin [facility] HOSPITAL RECEPTIONIST-LIBRARY INFORMATION TECHNICIAN Work Phone: Start: 04-15-2025 Dup-scan xtr veins unilateral/limited study Tyler Lantigua MD Work Phone: Start: 04-15-2025 Physiotherapy of chest Naserin [facility] HOSPITAL RECEPTIONIST-LIBRARY INFORMATION TECHNICIAN Work Phone: Start: 04-15-2025 Assay of magnesium Wyatt as A Zammit PA-C Work Phone: Start: 04-14-2025 Radex wrist complete minimum 3 views Anabel Sarah MD Work Phone: Start: 04-14-2025 Radex wrist complete minimum 3 views Saloni Briggs MD Work Phone: Start: 04-14-2025 End: 04-14-2025 Radex shoulder complete minimum 2 views Tyler Lantigua MD Work Phone: Start: 04-13-2025 Lactate dehydrogenase ldh Lucila Wiggins MD Work Phone: Start: 04-13-2025 Radiologic exam ches t single view Vicky Greco PA-C Work Phone: Start: 04-13-2025 Physiotherapy of chest [facility] HOSPITAL RECEPTIONIST-LIBRARY INFORMATION TECHNICIAN Work Phone: Start: 04-13-2025 Assay of magnesium Wyatt as A Zammit PA-C Work Phone: Start: 04-12-2025 Radex spine cervical 2 or 3 views Eric Marshall MD Work Phone: Start: 04-12-2025 Ct thorax w/o contra st material Edilkortney Benitez HOSPITAL RECEPTIONIST-LIBRARY INFORMATION TECHNICIAN Work Phone: Start: 04-12-2025 End: 04-12-2025 Physiotherapy of chest Elie Benitez HOSPITAL RECEPTIONIST-LIBRARY INFORMATION TECHNICIAN Work Phone: Start: 04-12-2025 Respiratory virus DN A+RNA [Identifier] in Unspecified specimen by LANE with probe detection Vicky Bryan Angus PA-C Work Phone: Start: 04-12-2025 Radiologic exam ches t single view Melonie L Ciupak PA-C Start: 04-12-2025 Assay of magnesium Wyatt as A Zammit PA-C Work Phone: Start: 04-11-2025 Retired procedure Gabbie Arnold HOSPITAL RECEPTIONIST-[facility] Work Phone: Start: 04-11-2025 Blood count complete automated Taylor Arnold HOSPITAL RECEPTIONIST-[facility] Work Phone: Start: 04-11-2025 End: 04-11-2025 Plateletpheresis Melonie L Ciupak PA-C Start: 04-11-2025 Prothrombin time Melonie L Ciupak PA-C Start: 04-11-2025 Creatine kinase total O heriberto L Ciupak PA-C Start: 04-11-2025 Artl cathj/cannulj mntr/transfusion spx prq Melonie L Ciupak PA-C Start: 04-10-2025 Radiologic exam ches t single view Eric Marshall MD Work Phone: Start: 04-10-2025 Glucose measurement, blood Ryan Sinha MD, PhD Work Phone: Start: 04-10-2025 Calcium ionized Kendrick Tripp MD Work Phone: Start: 04-10-2025 End: 04-10-2025 TRANSFUSE OR RED BLOOD CELLS Eli Smart MD Work Phone: Start: 04-10-2025 Calcium ionized Keke Kelly MD Work Phone: Start: 04-10-2025 End: 04-10-2025 TRANSFUSE OR PLASMA lEi Smart MD Work Phone: Start: 04-10-2025 End: 04-10-2025 TRANSFUSE OR RED BLOOD CELLS Eli Smart MD Work Phone: Start: 04-10-2025 End: 04-10-2025 Arthrodesis pst/pstlat cervical belw c2 sgm Eli Smart MD Work Phone: Start: 04-10-2025 End: 04-10-2025 Martinez facetectomy&foramtomy 1 sgm ea crv thrc/lmbr Eli Smart MD Work Phone: Start: 04-10-2025 End: 04-10-2025 Optx&/rdctj vrt fx&/dislc pst 1 vrt sgm lm Eli Smart MD Work Phone: Start: 04-10-2025 End: 04-10-2025 Stereotactic computer assisted px spinal Eli Smart MD Work Phone: Start: 04-10-2025 Blood count hematocrit Elie Benitez HOSPITAL RECEPTIONIST-LIBRARY INFORMATION TECHNICIAN Work Phone: Start: 04-10-2025 IMPLANT RECORD (SCANNED) Other Other OT Start: 04-10-2025 End: 04-10-2025 Transfusion of packed red blood cells Elie Benitez HOSPITAL RECEPTIONIST-LIBRARY INFORMATION TECHNICIAN Work Phone: Start: 04-10-2025 Prothrombin time Dorene H Albania HOSPITAL RECEPTIONIST-LIBRARY INFORMATION TECHNICIAN Work Phone: Start: 04-10-2025 Assay of magnesium Wyatt as A Zammit PA-C Work Phone: Start: 04-10-2025 Hepatic function panel Dorene Godinez Meaghanrisa HOSPITAL RECEPTIONIST-LIBRARY INFORMATION TECHNICIAN Work Phone: Start: 04-09-2025 End: 04-09-2025 Mri spinal canal cervical w/o contrast matrl Treasure Whitaker HOSPITAL RECEPTIONIST-LIBRARY INFORMATION TECHNICIAN Work Phone: Start: 04-09-2025 Radiologic exam esop hagus single contrast study Johnson Beaver Akilah MUIR-Jean Marie Work Phone: Start: 04-09-2025 Blood count hematocrit Johnson Dealestrada PA-C Work Phone: Start: 04-09-2025 Echo tthrc r-t 2d w/ wom-mode compl spec&colr d Johnson Beaver Akilah MURI-C Work Phone: Start: 04-09-2025 IP CONSULT TO SPEECH THERAPY Johnson Beaver Akilah SCHULTZ Work Phone: Start: 04-09-2025 Radiologic exam ches t single view Sandra Bernardo MD Work Phone: Start: 04-09-2025 ABORH TYPE RECONFIRMATION Kortney Cain DO Work Phone: Start: 04-09-2025 Drug tst prsmv instr mnt chem analyzers pr date David Patterson MD Work Phone: Start: 04-09-2025 EXTRA MICRO David Patterson MD Work Phone: Start: 04-09-2025 Hemoglobin glycosylated a1c Johnson Beaver Akilah MUIR-Jean Marie Work Phone: Start: 04-09-2025 URINALYSIS REFLEX TO CULTURE David Patterson MD Work Phone: Start: 04-09-2025 Urnls dip stick/tabl et reagent auto microscopy David Patterson MD Work Phone: Start: 04-08-2025 End: 04-09-2025 Transfusion of packed red blood cells Treasure García Dye HOSPITAL RECEPTIONIST-LIBRARY INFORMATION TECHNICIAN Work Phone: Start: 04-08-2025 Ct angio abd&plvis c ntrst mtrl w/wo cntrst img Treasure García Dye HOSPITAL RECEPTIONIST-LIBRARY INFORMATION TECHNICIAN Work Phone: Start: 04-08-2025 Ct angiography chest w/contrast/noncontrast Treasure D Dye HOSPITAL RECEPTIONIST-LIBRARY INFORMATION TECHNICIAN Work Phone: Start: 04-08-2025 Radex shoulder compl ete minimum 2 views Johnson Isbell PA-C Work Phone: Start: 04-08-2025 Clotting factor viii vw factor antigen Carlos Eduardo Oscar MD, PhD Work Phone: Start: 04-08-2025 Blood count complete automated Treasure D Dye HOSPITAL RECEPTIONIST-LIBRARY INFORMATION TECHNICIAN Work Phone: Start: 04-08-2025 Ecg routine ecg w/le ast 12 lds trcg only w/o i&r David Patterson MD Work Phone: Start: 04-08-2025 Glucose measurement, blood Ryan Sinha MD, PhD Work Phone: Start: 04-08-2025 Antibody screen Tesha Murillo MD Work Phone: Start: 04-08-2025 Radiologic examinati on pelvis 1/2 views David Patterson MD Work Phone: Start: 04-08-2025 Radiologic exam ches t single view David Patterson MD Work Phone: Start: 04-08-2025 Glucose measurement, blood Ryan Sinha MD, PhD Work Phone: Start: 04-08-2025 Antibody screen SHAUN BARCLAY Comment on above: Performed By: #### X M #### [facility] ([facility]) [address] [place] [address] Start: 04-08-2025 Assay of thyroid sti mulating hormone tsh David Patterson MD Work Phone: Start: 04-08-2025 CBC AND ELECTRONIC DIFF David Patterson MD Work Phone: Start: 04-08-2025 Complete blood count with white cell differential, automated David Patterson MD Work Phone: Start: 04-08-2025 GOLD TOP TUBE David Patterson MD Work Phone: Start: 04-08-2025 HC ASSAY OF ALCOHOL ETHANOL SPEC XCP UR & BREATH IA David Patterson MD Work Phone: Start: 04-08-2025 LAVENDER TOP TUBE Leo Patterson MD Work Phone: Start: 04-08-2025 Lipid panel Johnson lenz PA-C Work Phone: Start: 04-08-2025 LT BLUE TOP TUBE Pavan Patterson MD Work Phone: Start: 04-08-2025 MINT GREEN TOP TUBE Rachid elmer Patterson MD Work Phone: Start: 04-08-2025 PREPARE TO TRANSFUSE OR PLASMA Eli Smart MD Work Phone: Start: 04-08-2025 PREPARE TO TRANSFUSE OR RED BLOOD CELLS Eli Smart MD Work Phone: Start: 04-08-2025 PREPARE TO TRANSFUSE PLATELET Melonie MUIR-C Start: 04-08-2025 PREPARE TO TRANSFUSE RED BLOOD CELLS Treasure Whitaker HOSPITAL RECEPTIONIST-LIBRARY INFORMATION TECHNICIAN Work Phone: Start: 04-08-2025 RAINBOW DRAW David Patterson MD Work Phone: Start: 04-08-2025 Blood culture Jorge A avelar MD Work Phone: Start: 04-08-2025 Urine culture Jorge A avelar MD Work Phone: Start: 04-08-2025 Plain X-ray of tibia and fibula Jorge A Barclay MD Work Phone: Start: 04-08-2025 Urnls dip stick/tabl et reagent auto microscopy Jorge A Barclay MD Work Phone: Start: 04-08-2025 CT angiography of he ad and neck Jorge A Barclay MD Work Phone: Start: 04-08-2025 CT cervical spine wi thout contrast Jorge A Barclay MD Work Phone: Start: 04-08-2025 CT of face Jorge A rust MD Work Phone: Start: 04-08-2025 CT of head without contrast Jorge A Barclay MD Work Phone: Start: 04-08-2025 CT of thorax, abdome n and pelvis with contrast Jorge A Barclay MD Work Phone: Start: 04-08-2025 Estimated creatinine clearance Jorge A Barclay MD Work Phone: Start: 04-07-2025 Dual energy X-ray absorptiometry Jorge A Barclay MD Work Phone: Start: 04-02-2025 Estimated creatinine clearance Jorge A Barclay MD Work Phone: Start: 03-05-2025 Estimated creatinine clearance Jorge A Barclay MD Work Phone: Start: 12-10-2024 Procedure Jorge A rust MD Work Phone: Start: 11-27-2024 CT of thorax and abd omen with contrast Jorge A Barclay MD Work Phone: Start: 11-26-2024 Measurement of renal function Jorge A Barclay MD Work Phone: Comment on above: GFR Calc Start: 11-06-2023 Allergen spec ige cr ude allergen extract each JorgeA Barclay MD Work Phone: Start: 10-04-2023 CT of chest and abdomen DO Uyen Lynn Work Phone: Start: 05-08-2023 Trichomonas screening test oJrge A Barclay MD Work Phone: Start: 03-23-2023 HER2 (4B5) BY IHC Carol Calzada DO Work Phone: Start: 03-23-2023 Level iv surg pathol ogy gross&microscopic exam Rand Calzada DO Work Phone: Start: 02-27-2023 PET study for locali zation of tumor DO Uyen Tapianger Work Phone: Start: 09-14-2022 Ct thorax w/contrast material Rand A Zheng DO Work Phone: Start: 09-14-2022 Creatinine [Mass/vol ume] in Serum or Plasma [facility] Provider Start: 06-15-2022 Us breast uni real t stuart with image limited Rand A Zheng DO Work Phone: Start: 06-15-2022 LOLIS DIAG W TAVON LEFT St ephanie A Zheng DO Work Phone: Start: 01-09-[address] Steven Tubbs Work Phone: Start: 12-08-2021 SURGICAL PATHOLOGY Step hanie A Zheng DO Work Phone: Start: 12-08-2021 SURGICAL PATHOLOGY, CONVERTED Rand A Zheng DO Work Phone: Start: 12-08-2021 Digital breast tomos ynthesis bilateral Rand A Zheng DO Work Phone: Start: 12-08-2021 Us breast uni real t stuart with image limited Rand A Zheng DO Work Phone: Start: 11-21-2021 MRI of brain with contrast Dr. Steven Tubbs Work Phone: Start: 11-16-2021 Positron emission to mography with computed tomography Dr. Steven Tubbs Work Phone: Start: 11-07-2021 CT of thorax with contrast Dr. Steven Tubbs Work Phone: Start: 11-04-2021 Radionuclide whole b soraya bone study Dr. Steven Tubbs Work Phone: Start: 10-26-[address] Steven Tubbs Work Phone: Start: 10-26-2021 Screening mammograph y of bilateral breasts Dr. Steven Tubbs Work Phone: Urine culture VOLUNTEER RECRUITER-C Kortney Barn er VOLUNTEER RECRUITER Work Phone: Plan of Treatment Date Care Activity Detail Author Start: 10-21-2025 Tetanus vaccination [facility] Start: 06-15-2025 Influenza vaccination [facility] Start: 05-26-2025 End: 05-26-2025 ambulatory [facility] Start: 05-07-2025 End: 05-07-2025 ambulatory [facility] Start: 05-01-2025 End: 05-01-2025 ambulatory [facility] Start: 04-08-2025 Bacteria identified in Blood by Culture Blood Culture [facility] Start: 04-08-2025 Bacteria identified in Urine by Culture Urine Culture [facility] Start: 04-08-2025 [facility] Start: 04-08-2025 End: 04-08-2025 [facility] Start: 12-24-2024 Patient referral [facility] Work Phone: Start: 06-15-2024 Covid-19 Vaccine ( season) Covid-19 Vaccine ( season) [facility] Start: 06-15-2024 Influenza vaccination Influenz a Vaccine (#1) [facility] Start: 06-15-2024 [facility] Start: 10-15-2023 Advance Directive Discussion Advance Directive Discussion [facility] Start: 06-15-2023 Influenza vaccination INFLUENZ A (Season Ended) [facility] Start: 04-06-2023 End: 06-06-2023 CREATININE BLD CREATININE BLD Lab Routine Expected: 04/06/2023, Expires: 06/06/2023 [facility] Work Phone: Comment on above: Expected: 04/06/2023 , Expires: 06/06/2023 Start: 12-08-2022 Screening for malign ant neoplasm of breast [facility] Start: 10-15-2022 ADVANCE DIRECTIVE DISCUSSION ADVANCE DIRECTIVE DISCUSSION [facility] Start: 10-15-2022 DEPRESSION ASSESSMENT DEPRESSION ASS ESSMENT [facility] Start: 06-15-2022 End: 08-15-2022 CREATININE BLD CREATININE BLD Lab Routine Breast cancer metastasized to axillary lymph node, left (HCC) Expected: 06/15/2022, Expires: 08/15/2022 [facility] Work Phone: Comment on above: Expected: 06/15/2022 , Expires: 08/15/2022 Start: 06-15-2022 Influenza vaccination INFLUENZA (#1) [facility] Start: 10-27-2021 Patient referral [facility] Work Phone: Start: 10-15-2021 ADVANCE DIRECTIVE DISCUSSION ADVANCE DIRECTIVE DISCUSSION [facility] Start: 10-15-2021 DEPRESSION ASSESSMENT DEPRESSION ASS ESSMENT [facility] Start: 03-24-2020 [facility] Start: 2018 RSV Vaccine (1 - 1-d ose 75+ series) RSV Vaccine (1 - 1-dose 75+ series) [facility] Start: 2018 [facility] Start: 10-16-2014 Pneumococcal vaccination [facility] Start: 2008 BONE DENSITY BONE DENSITY [facility] Start: 2008 Pneumococcal Vaccine : 65+ (1 of 1 - PCV) Pneumococcal Vaccine: 65+ (1 of 1 - PCV) [facility] Start: 2008 PNEUMOCOCCAL: 65+ (1 - PCV) PNEUMOCOCCAL: 65+ (1 - PCV) [facility] Start: 2008 Screening for osteoporosis Bon e Density Screening [facility] Start: 1993 SHINGRIX VACCINE (1 of 2) DOSHI GRIX VACCINE (1 of 2) [facility] Start: 1988 DIABETES SCREEN DIABETES SCREEN [facility] Start: 1988 Diabetes Screening Diabetes Screenin g [facility] Start: 1988 Screening for malign ant neoplasm of colon [facility] Start: 1964 Screening for malign ant neoplasm of cervix [facility] Start: 1962 Urine microalbumin profile [facility] Start: 1961 Anxiety Screening Anxiety Screening [facility] Start: 1961 Depression Screening Depression Scre ening [facility] Start: 1961 HEPATITIS C SCREENING HEPATITIS C SC REENING [facility] Start: 1955 Adult depression scr eening assessment DEPRESSION SCREENING [facility] Start: 02-11-1944 COVID-19 VACCINE (#1) COVID-19 VACCI NE (#1) [facility] Start: 1943 Screening for osteoporosis [facility] ARTERIAL LINE [facility] Cancer Ag 125 [Units/volume] in Serum or Plasma [facility] Cancer Ag 125 [Units/volume] in Serum or Plasma [facility] Cancer Ag 15-3 [Pres ence] in Serum or Plasma [facility] Cancer Ag 15-3 [Pres ence] in Serum or Plasma [facility] Cancer Ag 27-29 [Pre sence] in Serum or Plasma [facility] Cancer Ag 27-29 [Pre sence] in Serum or Plasma [facility] Carcinoembryonic Ag [Mass/volume] in Serum or Plasma [facility] Carcinoembryonic Ag [Mass/volume] in Serum or Plasma [facility] CBC W Auto Different ial panel - Blood [facility] CBC W Auto Different ial panel - Blood [facility] CBC W Auto Different ial panel - Blood [facility] CBC W Auto Different ial panel - Blood [facility] CBC W Auto Different ial panel - Blood [facility] Comprehensive metabo lic 2000 panel - Serum or Plasma [facility] CT Chest W contrast IV [facility] End: 07-15-2023 CT CHEST W IVCON CT CHEST W IVCON Radiology Routine Localized enlarged lymph nodes 1 Occurrences starting 06/15/2022 until 07/15/2023 [facility] Work Phone: Comment on above: 1 Occurrences starti ng 06/15/2022 until 07/15/2023 End: 11-04-2023 CT CHEST W IVCON CT CHEST W IVCON Radiology Routine Localized enlarged lymph nodes 1 Occurrences starting 10/06/2022 until 11/04/2023 [facility] Work Phone: Comment on above: 1 Occurrences starti ng 10/06/2022 until 11/04/2023 End: 04-13-2025 CYTOLOGY, NON-ANTIQUE JEWELRY REPAIRER [facility] Work Phone: End: 06-21-2023 Diagnostic mammography computer-aided detcj uni LOLIS DIAGNOSTIC LT Radiology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 Vital Signs 03/10/25 10:53 04/07/25 09:05 04/07/25 12:59 Height 5 ft 5 ft 5 ft Weight: 78.5 kg BMI 33.7 BP 138/66 H Blood Pressure Location Rt brachial Position Sitting Respiration 16 Pulse 75 Pulse Source Monitor Temp 98.3 F Temperature Source Temporal Artery Pulse Oximetry (%) 100 Oxygen Delivery Method room air Intake Accompanied by: Is patient in pain?: No Allergies hydrocodone (From Vicodin) Allergy (Verified 04/07/25 13:03) Other Medications ?Medication ?Instructions ?Recorded ?Confirmed ?Type pantoprazole 40 mg tablet,delayed 40 mg PO BID 1 04/07/25 History release Bilateral wrist splints for carpal #2 ea 08/08/2102/13 Rx tunnel syndrome cholecalciferol (vitamin D3) 125 5,000 unit PO DAILY 1 04/07/25 History mcg (5,000 unit) capsule potassium chloride 10 mEq 10 meq PO BID 10/04/2104/07 History tablet,extended release apixaban 2.5 mg tablet (Eliquis) 2.5 mg PO BID #180 ta bs 09/02/24 04/07/25 Rx tamoxifen 20 mg tablet 100 mg (5 x 20 mg) PO DAILY 30 09/24/24 04/07/25 Rx days #150 tabs folic acid 1 mg tablet 1 mg PO DAILY #90 tabs 12/1804/07/25 Rx magnesium oxide 400 mg PO QHS #90 tabs 12/1804/07/25 Rx olaparib 150 mg tablet (Lynparza) 300 mg (2 x 150 mg) PO BID 30 days 01/01/25 04/07/25 Rx #120 tabs metoprolol succinate 25 mg 25 mg PO DAILY #90 tabs 04/07/25 Rx tablet,extended release 24 hr ondansetron 8 mg disintegrating 8 mg PO Q12H PRN nause a and 04/07/25 04/07/25 Rx tablet vomiting #30 tabs Have you fallen in the past year?: No Central Venous Access Central Venous Access: No Exam Physical Exam Narrative ECOG 1 Const alert, oriented x3 and no apparent distress General Appearance: comfortable Eyes General Eye: normal appearance of both eyes Neck no lymphadenopathy Chest Chest Narrative: Left breast medial mass has resolved, ulcer is healed Resp clear to auscultation bilaterally Cardio regular rate, regular rhythm, S1 normal heart sound and S2 normal heart sound GI normal to inspection, nondistended, normoactive bowel sounds and soft to palpation Back/Spine no CVA tenderness and no thoracic nor lumbar tenderness Cervical Spine: Negative for cervical spine tenderness Skin no rashes or lesions noted Neuro oriented x3, CN's II-XII intact bilaterally and moves all extremities Psych mental status grossly normal Attitude: calm and engaged Coding Level of Care Code Off vis,est,level 4 Exam Problem Focused Diagnoses Malignant neoplasm of overlapping sites of left breast in female, estrogen receptor positive C50.812; Z17.0 Breast location: overlapping sites of breast Estrogen receptor status: positive Patient sex: female Nausea and vomiting, unspecified vomiting type R11.2 Vomiting type: unspecified Assessment and Plan Assessment and Plan (1) Breast cancer, left breast: Status: Chronic Qualifiers: Breast location: overlapping sites of breast Estrogen receptor status: positive Patient sex: female Qualified Code(s): C50.812 - Malignant neoplasm of overlapping sites of left female breast; Z17.0 - Estrogen receptor positive status [ER+] Comment: Left breast invasive ductal carcinoma, 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 Elderly, Postmenopausal. Echocardiogram on 11/07/2021 showed EF 60%. Started Anastrozole on 12/22/2021. PET/CT on 02/27/2023 shows progressive disease with new L breast lesions, persistent nodes in L axillary, supraclavicular, internal mammary area. Progressive disease with mae-areola skin involvement, based on biopsy, refractory to Anastrozole. Germline BRCA2 positive. Stopped Anastrozole on 04/22/2023 Started Faslodex and Ribociclib on 04/24/2023. Mass around L nipple is softening. ctDNA on 07/17/[address] 10/04/2023 shows stable disease in L breast and L axilla. ctDNA was 3.6 on 10/09/2023. Started Tamoxifen 100 mg on 11/07/2023 and stopped Faslodex and Ribociclib for progressive disease-increase in L breast nodule. ctDNA on 01/10/2024 was 13.1 Got Radiation therapy to L breast nodule 01/17/2024-01/23/2024 Tumor in medial side of L breast disappeared. CT c/a on 04/21/2024 shows stable disease. Tumor markers on 04/21/[address] 11/27/2024 shows Progressive disease in L breast. Since tumor is BRCA2 positive, discussed therapy with PARP inhibitor, Pt agreed to therapy. Comes for follow up. Started Lynparza on 01/25/2025. Stopped Tamoxifen on 01/24/2025 Tumor in L breast and ulcer has resolved. Plan: To continue Lynparza. Obtain CT chest to (2) Nausea and vomiting: Status: Acute Qualifiers: Vomiting type: unspecified Qualified Code(s): R11.2 - Nausea with vomiting, unspecified Comment: Due to Lynparza. Plan: To continue Zofran 8mg q12h prn. Medications: Refilled ondansetron 8 mg PO Q12H PRN 30 tabs 3RF nausea and vomiting Plan Details Follow Up: 4 Weeks Clinical Quality Measures Falls Risk Screening/Assistive Devices Have you fallen in the past year?: No 04/07/25 1321 <Electronically signed by Alex García> Date _ Alex Love MD [facility] Signature: Date (if applicable) CC: Dr. Jorge A Barclay MD ~ [facility] Work Phone: [phone]) 318-613905-27-2025 Progress [facility] [address] [place], [place] [address]. [place], [place] [address] OFFICE VISIT Date of Service: 03/10/25 1052 MR#: [id number] Acct: [id number] Name: ANAY SAMUELS Rep #: [id number] : 1945 From: Alex Love MD Age/Sex: 79/F Location[place] [facility] [place] Status: Signed HPI Subjective Date of Service 03/10/25 Chief Complaint F/u for L breast cancer therapy-[facility]. History of Present Illness 79-year-old woman presented with left breast mass. Pt reported that she did not seek help because she had some neurologic symptoms that made her difficult to walk. Had a mammogram on 10/26/2021 showedleft medial breast mass and axillary node. Breast ultrasound on 10/26/2021 showed 4.4cm medial left breast mass and 2.7cm left axillary node. She saw Dr. Rosario on 10/27/2021, [facility] needle biopsy of the left breast mass and left axillary node was done. 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 Tumor was positive for BRCA2. She was referred for further evaluation and management. CT chest on 11/07/2021 showed thyroid nodules, Left breast mass close to chest wall, skin thickening over the mass, left axillary node. Bone scan on 11/04/2021 showed no evidenceof metastatic disease. Echocardiogram on 11/07/2021 showed EF 60%. MRI brain on 11/21/2021 was negative. PET/CT done on 11/16/2021 showed Increased glucose concentration observed in the left breast fulfills quantitative criteria for malignant transformation, Enhanced tracer uptake demonstrated in the left axillary, retropectoral and internal mammary lymph node distributions fulfill quantitative criteria for viable metastatic involvement. She saw Breast surgery and Medical Oncology at [facility]. Consults ap preciated, they all recommended starting Hormonal therapy. She started Anastrozole 1 mg daily on 12/22/2021. PET/CT on 02/27/2023 showed new multiple lesions in Left breast, activity in left axilla, retropectoral, internal mammary nodes suggestive of progressive disease. She saw Dr. Shultz, punch biopsy of skin of L areolar area was done on 03/23/2023 showed Metastatic breast adenocarcinoma, ER 95% positive, MT 10% positive, Her2 negative. She is not a candidate for breast surgery. Stopped Anastrozole on 04/22/2023. Started Ribociclib and Faslodex on 04/24/2023. Stopped after the 7 cycle on 11/06/2023. She start Tamoxifen 100mg daily on 11/07/2023. She got Radiation therapy to L breast nodule for 01/17/2024 to01/23/2024. CT on 04/21/2024 showed stable disease. Remains on Tamoxifen. CT on 11/26/2024 showed increasing L breast nodules. Had Progressive disease. Lynparza was requested for BRCA2 disease. Started Lynparza on 01/25/2025. Comes for followup. Feels well. She thinks tumor in the L breast is almost gone. Still has some nausea and vomiting on and off. Interval History [facility] Medical History HTN (hypertension) Encounter for education Paroxysmal atrial fibrillation Essential hypertension Vitamin B12 deficiency Thiamine deficiency Acute UTI Polyneuropathy Cerebrovascular disease Osteoporosis Gallstones Cataract Anemia alf current use of anticoagulant Abnormal finding on thyroid function test GERD (gastroesophageal reflux disease) Esophageal dysmotility Rheumatoid arthritis Coronary artery disease Weight loss, unintentional Multiple thyroid nodules Anxiety Hemorrhoids Leukocytosis Hypokalemia Dehydration Osteoarthritis Spinal stenosis [place] Atrial fibrillation and flutter Dysphagia Surgical History History of left breast biopsy (~10/2021) History of cataract surgery S/P fine needle aspiration (~10/2020) History of bilateral knee replacement History of oral surgery History of bladder suspension procedure Hx of hysterectomy Hx of cholecystectomy Family History Mother Hypertension Alcohol abuse Anemia Respiratory disease Brother Diabetes Thyroid disorder Father Alcohol abuse Respiratory disease Grandmother Colon cancer Other Arthritis COPD (chronic obstructive pulmonary disease) CVA (cerebral vascular accident) Cancer Heart disease Social History Smoking Status: Never smoker Electronic Cigarette Use: not used second hand exposure: No alcohol intake: current alcohol intake frequency: holidays/special occasions only Alcohol type: wine substance use type: does not use caffeine: Yes Type: coffee Number of servings: 2 and tea Number of servings: 1 what type of physical activity do you participate in: swimming and aerobics frequency: 3-4 times per week jhony/roman catholic: Latter-Day seatbelt use: always Intake Vital Signs 02/09/25 14:23 03/10/25 10:53 Height 5 ft 5 ft Weight: 79.095 kg BMI 34.0 BP 162/78 H Blood Pressure Location Rt brachial Position Sitting Respiration 18 Pulse 75 Pulse Source Monitor Temp 97.9 F Temperature Source Temporal Artery Pulse Oximetry (%) 100 Oxygen Delivery Method room air Intake Is patient in pain?: No Allergies hydrocodone (From Vicodin) Allergy (Verified 03/10/25 10:55) Other Medications ?Medication ?Instructions ?Recorded ?Confirmed ?Type pantoprazole 40 mg tablet,delayed 40 mg PO BID 1 03/10/25 History release Bilateral wrist splints for carpal #2 ea 08/08/2102/13 Rx tunnel syndrome cholecalciferol (vitamin D3) 125 5,000 unit PO DAILY 1 03/10/25 History mcg (5,000 unit) capsule potassium chloride 10 mEq 10 meq PO BID 10/04/2103/10 History tablet,extended release metoprolol succinate 25 mg 25 mg PO DAILY #90 tabs 01/0503/10/25 Rx tablet,extended release 24 hr apixaban 2.5 mg tablet (Eliquis) 2.5 mg PO BID #180 ta bs 09/02/24 03/10/25 Rx tamoxifen 20 mg tablet 100 mg (5 x 20 mg) PO DAILY 30 09/24/24 03/10/25 Rx days #150 tabs folic acid 1 mg tablet 1 mg PO DAILY #90 tabs 12/1803/10/25 Rx magnesium oxide 400 mg PO QHS #90 tabs 12/1803/10/25 Rx olaparib 150 mg tablet (Lynparza) 300 mg (2 x 150 mg) PO BID 30 days 01/01/25 03/10/25 Rx #120 tabs ondansetron 8 mg disintegrating 8 mg PO Q12H PRN nause a and 03/10/25 03/10/25 Rx tablet vomiting #30 tabs Have you fallen in the past year?: No Central Venous Access Central Venous Access: No Laboratory Tests 11/02/21 01/19/22 02/16/22 13:55 10:12 15:10 WBC 6.9 6.3 5.6 Hgb 12.8 12.9 12.2 Hct 40.4 40.2 37.7 Plt Count 248 222 202 Absolute Neuts (auto) 3.8 3.5 Absolute Lymphs (auto) 2.00 Sodium 141 139 141 Potassium 4.7 4.4 3.9 Chloride 107 108 H 110 H Carbon Dioxide 29.0 29.0 28.0 BUN 19 H 20 H 19 H Creatinine 0.71 0.77 0.75 Glucose 105 89 103 Calcium 9.1 8.8 8.8 Total Bilirubin 0.40 0.80 0.30 AST 15 11 L 11 L ALT 19 18 16 Alkaline Phosphatase 73 70 66 Lactate Dehydrogenase 183 168 190 Total Protein 7.0 6.9 6.5 Albumin 3.5 3.3 3.2 Globulin 3.5 3.6 3.3 CA 15-3 Antigen CA 27-29 03/16/22 07/12/22 08/30/22 13:51 12:55 12:52 WBC 6.2 6.8 6.8 Hgb 12.3 12.9 12.6 Hct 38.6 39.5 39.8 Plt Count 218 227 234 Absolute Neuts (auto) 3.4 Absolute Lymphs (auto) Sodium 139 143 142 Potassium 4.4 4.6 4.2 Chloride 106 109 H 108 H Carbon Dioxide 28.0 31.0 29.0 BUN 19 H 19 H 21 H Creatinine 0.76 0.96 0.88 Glucose 108 H 103 108 H Calcium 8.9 9.0 9.0 Total Bilirubin 0.50 0.50 0.40 AST 13 L 12 L 10 L ALT 19 17 17 Alkaline Phosphatase 72 76 78 Lactate Dehydrogenase 181 190 268 H Total Protein 7.0 6.9 6.7 Albumin 3.5 3.4 3.3 Globulin 3.5 3.5 3.4 CA 15-3 Antigen CA 27-29 04/21/24 08/21/24 03/05/25 12:49 08:56 10:57 WBC 5.5 6.0 Hgb 11.3 L 11.3 L Hct 35.9 L 33.9 L Plt Count 169 160 Absolute Neuts (auto) 3.8 Absolute Lymphs (auto) Sodium Potassium Chloride Carbon Dioxide BUN Creatinine Glucose Calcium Total Bilirubin AST ALT Alkaline Phosphatase Lactate Dehydrogenase Total Protein Albumin Globulin CA 15-3 Antigen 19.3 29.8 H 25.1 H CA 27-29 18.2 27.4 Exam Physical Exam Narrative ECOG 1 Const alert, oriented x3 and no apparent distress General Appearance: comfortable Eyes General Eye: normal appearance of both eyes Neck no lymphadenopathy Chest Chest Narrative: Left breast medial mass has resolved, ulcer is healing and smaller.. Resp clear to auscultation bilaterally Cardio regular rate, regular rhythm, S1 normal heart sound and S2 normal heart sound GI normal to inspection, nondistended, normoactive bowel sounds and soft to palpation Back/Spine no CVA tenderness and no thoracic nor lumbar tenderness Cervical Spine: Negative for cervical spine tenderness Skin no rashes or lesions noted Neuro oriented x3, CN's II-XII intact bilaterally and moves all extremities Psych mental status grossly normal Attitude: calm and engaged Coding Level of Care Code Off vis,est,level 4 Exam Problem Focused Diagnoses Malignant neoplasm of overlapping sites of left breast in female, estrogen receptor positive C50.812; Z17.0 Breast location: overlapping sites of breast Estrogen receptor status: positive Patient sex: female Nausea and vomiting, unspecified vomiting type R11.2 Vomiting type: unspecified Assessment and Plan Assessment and Plan (1) Breast cancer, left breast: Status: Chronic Qualifiers: Breast location: overlapping sites of breast Estrogen receptor status: positive Patient sex: femaleQualified Code(s): C50.812 - Malignant neoplasm of overlapping sites of left female breast; Z17.0 -Estrogen receptor positive status [ER+] Comment: Left breast invasive ductal carcinoma, 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 Elderly, Postmenopausal. Echocardiogram on 11/07/2021 showed EF 60%. Started Anastrozole on 12/22/2021. PET/CT on 02/27/2023 shows progressive disease with new L breast lesions, persistent nodes in L axillary, supraclavicular, internal mammary area. Progressive disease with mae-areola skin involvement, based on biopsy, refractory to Anastrozole. Germline BRCA2 positive. Stopped Anastrozole on 04/22/2023 Started Faslodex and Ribociclib on 04/24/2023. Mass around L nipple is softening. ctDNA on 07/17/[address] 10/04/2023 shows stable disease in L breast and L axilla. ctDNA was 3.6 on 10/09/2023. Started Tamoxifen 100 mg on 11/07/2023 and stopped Faslodex and Ribociclib for progressive disease-increase in L breast nodule. ctDNA on 01/10/2024 was 13.1 Got Radiation therapy to L breast nodule 01/17/2024-01/23/2024 Tumor in medial side of L breast disappeared. CT c/a on 04/21/2024 shows stable disease. Tumor markers on 04/21/[address] 11/27/2024 shows Progressive disease in L breast. Since tumor is BRCA2 positive, discussed therapy with PARP inhibitor, Pt agreed to therapy. Comes for follow up. Started Lynparza on 01/25/2025. Stopped Tamoxifen on 01/24/2025 Tumor in L breast is shrinking, ulcer is decreasing. Plan: To continue Lynparza. (2) Nausea and vomiting: Status: Acute Qualifiers: Vomiting type: unspecified Qualified Code(s): R11.2 - Nausea with vomiting, unspecified Comment: Due to Lynparza. Plan: To start Zofran 8mg q12h prn. Medications: New ondansetron 8 mg PO Q12H PRN 30 tabs 1RF nausea and vomiting Plan Details Follow Up: 4 Weeks Clinical Quality Measures Falls Risk Screening/Assistive Devices Have you fallen in the past year?: No 03/10/25 1128 D> Date _ Alex Love MD Cosigner Signature: Date (if applicable) CC: ~ [facility]05-27-2025 Progress note Author Alex Love [facility] Note Date/Time March 10, 2025 11:28 am [facility] [address] [place] [address]. [place] [address] OFFICE VISIT Date of Service: 03/10/25 1052 MR#: [id number] Acct: [id number] Name: ANAY SAMUELS Rep #: [id number] : 1945 From: Alex Love MD Age/Sex: 79/F Location[place] [facility] [place] Status: Signed HPI Subjective Date of Service 03/10/25 Chief Complaint F/u for L breast cancer therapy-[facility]. History of Present Illness 79-year-old woman presented with left breast mass. Pt reported that she did not seek help because she had some neurologic symptoms that made her difficult to walk. Had a mammogram on 10/26/2021 showed left medial breast mass and axillary node. Breast ultrasound on 10/26/2021 showed 4.4cm medial left breast mass and 2.7cm left axillary node. She saw Dr. Rosario on 10/27/2021, mass was fixed to thechest wall, needle biopsy of the left breast mass and left axillary node was done. 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 Tumor was positive for BRCA2. She was referred for further evaluation and management. CT chest on 11/07/2021 showed thyroid nodules, Left breast mass close to chest wall, skin thickening over the mass, left axillary node. Bone scan on 11/04/2021 showed no evidence of metastatic disease. Echocardiogram on 11/07/2021 showed EF 60%. MRI brain on 11/21/2021 was negative. PET/CT done on 11/16/2021 showed Increased glucose concentration observed in the left breast fulfills quantitative criteria for malignant transformation, Enhanced tracer uptake demonstrated in the left axillary, retropectoral and internal mammary lymph node distributions fulfill quantitative criteria for viable metastatic involvement. She saw Breast surgery and Medical Oncology at [facility]. Consults appreciated, they all recommended starting Hormonal therapy. She started Anastrozole 1 mg daily on 12/22/2021. PET/CT on 02/27/2023 showed new multiple lesions in Left breast, activity in left axilla, retropectoral, internal mammary nodes suggestive of progressive disease. She saw Dr. Shultz, punch biopsy of skin of L areolar area was done on 03/23/2023 showed Metastatic breast adenocarcinoma, ER 95% positive, MT 10% positive, Her2 negative. She is not a candidate for breast surgery. Stopped Anastrozole on 04/22/2023. Started Ribociclib and Faslodex on 04/24/2023. Stopped after the 7 cycle on 11/06/2023. She start Tamoxifen 100mg daily on 11/07/2023. She got Radiation therapy to L breast nodule for 01/17/2024 to01/23/2024. CT on 04/21/2024 showed stable disease. Remains on Tamoxifen. CT on 11/26/2024 showed increasing L breast nodules. Had Progressive disease. Lynparza was requested for BRCA2 disease. Started Lynparza on 01/25/2025. Comes for followup. Feels well. She thinks tumor in the L breast is almost gone. Still has some nausea and vomiting on and off. Interval [facility] History HTN (hypertension) Encounter for education Paroxysmal atrial fibrillation Essential hypertension Vitamin B12 deficiency Thiamine deficiency Acute UTI Polyneuropathy Cerebrovascular disease Osteoporosis Gallstones Cataract Anemia alf current use of anticoagulant Abnormal finding on thyroid function test GERD (gastroesophageal reflux disease) Esophageal dysmotility Rheumatoid arthritis Coronary artery disease Weight loss, unintentional Multiple thyroid nodules Anxiety Hemorrhoids Leukocytosis Hypokalemia Dehydration Osteoarthritis Spinal stenosis [place] Atrial fibrillation and flutter Dysphagia Surgical History History of left breast biopsy (~10/2021) History of cataract surgery S/P fine needle aspiration (~10/2020) History of bilateral knee replacement History of oral surgery History of bladder suspension procedure Hx of hysterectomy Hx of cholecystectomy Family History Mother Hypertension Alcohol abuse Anemia Respiratory disease Brother Diabetes Thyroid disorder Father Alcohol abuse Respiratory disease Grandmother Colon cancer Other Arthritis COPD (chronic obstructive pulmonary disease) CVA (cerebral vascular accident) Cancer Heart disease Social History Smoking Status: Never smoker Electronic Cigarette Use: not used second hand exposure: No alcohol intake: current alcohol intake frequency: holidays/special occasions only Alcohol type: wine substance use type: does not use caffeine: Yes Type: coffee Number of servings: 2 and tea Number of servings: 1 what type of physical activity do you participate in: swimming and aerobics frequency: 3-4 times per week jhony/roman catholic: Latter-Day seatbelt use: always Intake Vital Signs 02/09/25 14:23 03/10/25 10:53 Height 5 ft 5 ft Weight: 79.095 kg BMI 34.0 BP 162/78 H Blood Pressure Location Rt brachial Position Sitting Respiration 18 Pulse 75 Pulse Source Monitor Temp 97.9 F Temperature Source Temporal Artery Pulse Oximetry (%) 100 Oxygen Delivery Method room air Intake Is patient in pain?: No Allergies hydrocodone (From Vicodin) Allergy (Verified 03/10/25 10:55) Other Medications ?Medication ?Instructions ?Recorded ?Confirmed ?Type pantoprazole 40 mg tablet,delayed 40 mg PO BID 1 03/10/25 History release Bilateral wrist splints for carpal #2 ea 08/08/2102/13 Rx tunnel syndrome cholecalciferol (vitamin D3) 125 5,000 unit PO DAILY 1 03/10/25 History mcg (5,000 unit) capsule potassium chloride 10 mEq 10 meq PO BID 10/04/2103/10 History tablet,extended release metoprolol succinate 25 mg 25 mg PO DAILY #90 tabs 01/0503/10/25 Rx tablet,extended release 24 hr apixaban 2.5 mg tablet (Eliquis) 2.5 mg PO BID #180 ta bs 09/02/24 03/10/25 Rx tamoxifen 20 mg tablet 100 mg (5 x 20 mg) PO DAILY 30 09/24/24 03/10/25 Rx days #150 tabs folic acid 1 mg tablet 1 mg PO DAILY #90 tabs 12/1803/10/25 Rx magnesium oxide 400 mg PO QHS #90 tabs 12/1803/10/25 Rx olaparib 150 mg tablet (Lynparza) 300 mg (2 x 150 mg) PO BID 30 days 01/01/25 03/10/25 Rx #120 tabs ondansetron 8 mg disintegrating 8 mg PO Q12H PRN nause a and 03/10/25 03/10/25 Rx tablet vomiting #30 tabs Have you fallen in the past year?: No Central Venous Access Central Venous Access: No Laboratory Tests 11/02/21 01/19/22 02/16/22 13:55 10:12 15:10 WBC 6.9 6.3 5.6 Hgb 12.8 12.9 12.2 Hct 40.4 40.2 37.7 Plt Count 248 222 202 Absolute Neuts (auto) 3.8 3.5 Absolute Lymphs (auto) 2.00 Sodium 141 139 141 Potassium 4.7 4.4 3.9 Chloride 107 108 H 110 H Carbon Dioxide 29.0 29.0 28.0 BUN 19 H 20 H 19 H Creatinine 0.71 0.77 0.75 Glucose 105 89 103 Calcium 9.1 8.8 8.8 Total Bilirubin 0.40 0.80 0.30 AST 15 11 L 11 L ALT 19 18 16 Alkaline Phosphatase 73 70 66 Lactate Dehydrogenase 183 168 190 Total Protein 7.0 6.9 6.5 Albumin 3.5 3.3 3.2 Globulin 3.5 3.6 3.3 CA 15-3 Antigen CA 27-29 03/16/22 07/12/22 08/30/22 13:51 12:55 12:52 WBC 6.2 6.8 6.8 Hgb 12.3 12.9 12.6 Hct 38.6 39.5 39.8 Plt Count 218 227 234 Absolute Neuts (auto) 3.4 Absolute Lymphs (auto) Sodium 139 143 142 Potassium 4.4 4.6 4.2 Chloride 106 109 H 108 H Carbon Dioxide 28.0 31.0 29.0 BUN 19 H 19 H 21 H Creatinine 0.76 0.96 0.88 Glucose 108 H 103 108 H Calcium 8.9 9.0 9.0 Total Bilirubin 0.50 0.50 0.40 AST 13 L 12 L 10 L ALT 19 17 17 Alkaline Phosphatase 72 76 78 Lactate Dehydrogenase 181 190 268 H Total Protein 7.0 6.9 6.7 Albumin 3.5 3.4 3.3 Globulin 3.5 3.5 3.4 CA 15-3 Antigen CA 27-29 04/21/24 08/21/24 03/05/25 12:49 08:56 10:57 WBC 5.5 6.0 Hgb 11.3 L 11.3 L Hct 35.9 L 33.9 L Plt Count 169 160 Absolute Neuts (auto) 3.8 Absolute Lymphs (auto) Sodium Potassium Chloride Carbon Dioxide BUN Creatinine Glucose Calcium Total Bilirubin AST ALT Alkaline Phosphatase Lactate Dehydrogenase Total Protein Albumin Globulin CA 15-3 Antigen 19.3 29.8 H 25.1 H CA 27-29 18.2 27.4 Exam Physical Exam Narrative ECOG 1 Const alert, oriented x3 and no apparent distress General Appearance: comfortable Eyes General Eye: normal appearance of both eyes Neck no lymphadenopathy Chest Chest Narrative: Left breast medial mass has resolved, ulcer is healing and smaller.. Resp clear to auscultation bilaterally Cardio regular rate, regular rhythm, S1 normal heart sound and S2 normal heart sound GI normal to inspection, nondistended, normoactive bowel sounds and soft to palpation Back/Spine no CVA tenderness and no thoracic nor lumbar tenderness Cervical Spine: Negative for cervical spine tenderness Skin no rashes or lesions noted Neuro oriented x3, CN's II-XII intact bilaterally and moves all extremities Psych mental status grossly normal Attitude: calm and engaged Coding Level of Care Code Off vis,est,level 4 Exam Problem Focused Diagnoses Malignant neoplasm of overlapping sites of left breast in female, estrogen receptor positive C50.812; Z17.0 Breast location: overlapping sites of breast Estrogen receptor status: positive Patient sex: female Nausea and vomiting, unspecified vomiting type R11.2 Vomiting type: unspecified Assessment and Plan Assessment and Plan (1) Breast cancer, left breast: Status: Chronic Qualifiers: Breast location: overlapping sites of breast Estrogen receptor status: positive Patient sex: female Qualified Code(s): C50.812 - Malignant neoplasm of overlapping sites of left female breast; Z17.0 - Estrogen receptor positive status [ER+] Comment: Left breast invasive ductal carcinoma, 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 Elderly, Postmenopausal. Echocardiogram on 11/07/2021 showed EF 60%. Started Anastrozole on 12/22/2021. PET/CT on 02/27/2023 shows progressive disease with new L breast lesions, persistent nodes in L axillary, supraclavicular, internal mammary area. Progressive disease with mae-areola skin involvement, based on biopsy, refractory to Anastrozole. Germline BRCA2 positive. Stopped Anastrozole on 04/22/2023 Started Faslodex and Ribociclib on 04/24/2023. Mass around L nipple is softening. ctDNA on 07/17/[address] 10/04/2023 shows stable disease in L breast and L axilla. ctDNA was 3.6 on 10/09/2023. Started Tamoxifen 100 mg on 11/07/2023 and stopped Faslodex and Ribociclib for progressive disease-increase in L breast nodule. ctDNA on 01/10/2024 was 13.1 Got Radiation therapy to L breast nodule 01/17/2024-01/23/2024 Tumor in medial side of L breast disappeared. CT c/a on 04/21/2024 shows stable disease. Tumor markers on 04/21/[address] 11/27/2024 shows Progressive disease in L breast. Since tumor is BRCA2 positive, discussed therapy with PARP inhibitor, Pt agreed to therapy. Comes for follow up. Started Lynparza on 01/25/2025. Stopped Tamoxifen on 01/24/2025 Tumor in L breast is shrinking, ulcer is decreasing. Plan: To continue Lynparza. (2) Nausea and vomiting: Status: Acute Qualifiers: Vomiting type: unspecified Qualified Code(s): R11.2 - Nausea with vomiting, unspecified Comment: Due to Lynparza. Plan: To start Zofran 8mg q12h prn. Medications: New ondansetron 8 mg PO Q12H PRN 30 tabs 1RF nausea and vomiting Plan Details Follow Up: 4 Weeks Clinical Quality Measures Falls Risk Screening/Assistive Devices Have you fallen in the past year?: No 03/10/25 1128 <Electronically signed by Alex García> Date _ Alex Love MD Cosigner Signature: Date (if applicable) CC: ~ [facility] Work Phone: 1(929) 337-105003-06-2025 Evaluation note* Diagnosis Onset Date Resolution Status Admit Date Cervical spinal stenosis chronic December 18, 2024 9:59am Lumbar spinal stenosis chronic [facility] 2024 9:59am Multifactorial gait disorder chronic December 18, 2024 9:59am Muscle cramps chronic December 18, 2024 9:59am Polyneuropathy chronic December 18, 2024 9:59am Folate deficiency resolved December 182024 9:59am Breast cancer, left breast chronic December 24, 2024 10:21am Breast cancer, left breast chronic December 31, 2024 9:23am Breast cancer, left breast chronic February 09, 2025 1:31pm Nausea and vomiting acute February 132024 10:48am Breast cancer, left breast chronic March 10, 2025 10:48am Nausea and vomiting acute April 07, 2025 12:55pm Breast cancer, left breast chronic April 07, 2025 12:55pm [place] [employer] [facility] Work Phone: 1(734) 573-904502-12-2025 Evaluation note* Diagnosis Onset Date Resolution Status Admit Date Breast cancer, left breast chronic November 26, 2024 9:56am Breast cancer, left breast chronic December 01, 2024 3:26pm Left hip pain chronic December 012024 3:26pm Cervical spinal stenosis chronic December 18, 2024 9:59am Lumbar spinal stenosis chronic [facility] 2024 9:59am Multifactorial gait disorder chronic December 18, 2024 9:59am Muscle cramps chronic December 18, 2024 9:59am Polyneuropathy chronic December 18, 2024 9:59am Folate deficiency resolved December 182024 9:59am Breast cancer, left breast chronic December 24, 2024 10:21am Breast cancer, left breast chronic December 31, 2024 9:23am Breast cancer, left breast chronic February 09, 2025 1:31pm Nausea and vomiting acute February 132024 10:48am Breast cancer, left breast chronic March 10, 2025 10:48am [place] [employer] Work Phone: [phone]) 914-462606-19-2023 Miscellaneous Notes* Telephone Encounter - Rand Calzada DO - 04/02/2023 1:05 PM EDT I called and spoke to both Mrs. Guillencar and Dr. Love. Discussed medical management as next steps per tumor board recommendations. Surgery not indicated at this time. Tumor board note was faxed to Dr. Love's office [phone]. Rand Calzada DO Breast Surgeon documented in this encounterC[facility]06-15-[facility]23 NoteHNO ID: [id number] Author: Rand Calzada DO Service: ? Author Type: Physician Type: Progress Notes Filed: 03/31/2023 7:14 AM Note Text: The below documentation is based on a tumor board discussion amongst the multidisciplinary team and should NOT be used for insurance verification or coverage purposes or interpreted as the final plan of care: Date of Presentation: March 29, 2023 Presenter: Dr. Calzada Team Members: Dr. Alex Love ([place] med onc) Primary reason for presentation: discussion of pt presentation / treatment options, progression on AI, discuss surgery vs systemic therapy options 77 year old female initially seen by Dr. Calzada 11/2021 with unresectable cancer (adherent to chest wall) T4N3M1? (Thyroid nodules and cervical- LN) Not a surgical candidate. Has been on Anastrazole with Dr. Love with good response. Recent PET scan shows new lesions developing in the breast, stable LN disease. Skin punch Bx by Dr. Calzada confirms disease spread locally. Anatomic stage: [id number](appears cervical LN involved) Radiology review of initial PET mass involving pec muscle +, internal mammary lymph nodes, infraclavicular/supraclavicular lymph nodes with concern for cervical lymph nodes ipsilateral Recent PET with index mass smaller but concern for increase pec muscle enhancement, new breast masses +involvement of nipple/areolar complex, continued LN involvement Skin punch positive for ER+MT+HER2+ consistent with primary cancer Pathway discussed: Yes Clinical trial discussion: Yes, non available Genetics discussions: Yes - not indicated Discussed ESR1 mutation testing with [employer] 360 blood testing for tumor Supportive services discussion: Yes, referrals to be considered: none at this time Discussion / recommendations: After review and discussion of patient presentation, the following thoughts / recommendations were made. 1) Surgery at this time remains not recommend due to extent of disease - stage IV 2) Systemic therapy recommendations- check for ESR1 mutation (using [employer] blood test vs Next Generation Sequence panel) Could consider per [facility] carepath recommendations: Recommendations will be communicated with Dr. Love and the patient. This abstract and interpretation of the conversation at tumor board has been completed by Rand Calzada DO. The final recommendations / treatment plan will be made by the patient's primary health care team and patient, after full discussion as appropriate.[facility] 03-23-2023 NoteHNO ID: [id number] Author: Rand Calzada DO Service: ? Author Type: Physician Type: Progress Notes Filed: 03/31/2023 9:18 PM Note Text: REASON FOR TODAY'S VISIT: Patient presents with: Established Patient: Review pet scan HISTORY of PRESENT ILLNESS: Anay Samuels is a 78 year old female with a LEFT breast locally advanced breast cancer involving the chest wall and axillary lymph nodes. Presented 11/2021 and has been on neoadjuvant endocrine therapy. ER+MT+HER2- [id number] (thyroid/cervical LN) HISTORY: Patient was last seen for a follow up on 09/28/2022 At that time, she had showed improvement with the use of AI, but clinically, unresectable, with a mass involving her chest wall. In the interim, she continues on AI She is here to discuss the findings on a recent PET scan performed at [facility] on 02/27/2023. Review of findings reported both persistent and newly identified viable neoplasm within the left breast manifesting interim metabolic progression. ROS: HEENT: Denies vision changes or headaches BREAST: Denies palpating any new breast masses, no breast pain, no skin changes, no nipple discharge ABD: Denies any abdominal pain or new changes in bowel habits MUSCULOSKELETAL: Denies any bone, joint or muscle pain IMAGING: PET scan shows increase areas of uptake new in her breast, continued intermal mammary, axillary and infraclavicular LN EXAMINATION: GENERAL:well-nourished, healthy, alert and oriented x 3, calm SKIN:warm, dry, skin color, texture, turgor normal HEAD/EYES:normocephalic, atraumatic, and anicteric NECK: supple, symmetrical, no thyromegaly RESPIRATORY: Respirations regular AND non-labored ABDOMEN: soft, nondistended. No hepatomegaly., No masses MUSCULOSKELETAL: No observed limitations in range of motion of upper extremities. Patient ambulates independently BREASTS: The Patient was examined in the upright and supine positions. Breasts are symmetric. There are no significant fibrocystic changes. Patient's cup size is D The patient was examined in the upright and supine position. RIGHT breast soft, no dominant masses, nipple everted, no discharge, no skin changes RIGHT axilla no palpable axillary lymphadenopathy LEFT breast soft, the dominant mass @ the medial inferior fold is less prominent, improved overlying skin, still adherent to the chest wall, nipple everted, nipple areolar complex with skin changes consistent with skin involvement of cancer LEFT axilla no palpable axillary lymphadenopathy appreciated today, no lymphedema Regional Lymph Nodes: There is no concerning supraclavicular, infraclavicular or cervical lymphadenopathy. PROCEDURE: LEFT areolar skin punch biopsy Patient verified by: Name and Date of Site of the procedure confirmed:yes Staff involved: Zheng The breast was prepped and draped in a sterile manner. 3cc of lidocaine 1% was injected for local anesthesia. A 2 mm skin punch biopsy was used. 1 area of skin was removed and placed in formalin. A 4.0 Chromic was used to close the skin. A bandage was applied. The patient tolerated the procedure well. IMPRESSION: Anay G Crayden is a 77 year old female who presented 11/2021 with a LEFT breast locally advanced breast cancer involving the chest wall and axillary lymph nodes. She has been on neoadjuvant endocrine therapy (anastrozole). Initial improvement, but now appears to have new breast masses with involvement of her NAC skin - skin punch bx performed today PLAN: She had a LEFT breast skin punch biopsy performed today. Discussed this is cancer, but repeat bx to determine receptor status is important. I will present her case at tumor board - as she appears still unresectable for cure. I will touch base with her and her medical oncologist. She has our names and numbers to stay in touch if she has any questions, concerns or problems in the interim. Rand Calzada, Breast Surgeon cc: Erik Nguyen MD [address] [address] Fobcfrhh [id number] Nurse Note* Ivette Mcginnis LPN - 03/23/2023 2:11 PM EDT Review pet scan Last mammogram on: 12/08/21 bilateral Results: see report Is the patient active on [employer] Yes Electronically Signed By: Ivette Mcginnis LPN In Department: GENERAL SURGERY REVIEW OF PATIENT HISTORY: OB History T0 L6 SAB0 IAB0 Ectopic0 Multiple0 Live Births0 Comment: Menarche: 8; Age at 1st : 18; Hysterectomy at age 66 due to Uterine prolapse FAMILY HISTORY Problem Relation Age of Onset Cancer Maternal Grandmother liver Breast Cancer Paternal Grandmother 89 Cancer Paternal Grandfather stomach PAST MEDICAL HISTORY Diagnosis Date Arthritis Atrial fibrillation (HCC) on eliquis HTN (hypertension) Malignant neoplasm of overlapping sites of left female breast (HCC) 11/2021 PAST SURGICAL HISTORY Procedure Laterality Date REMOVAL GALLBLADDER TOTAL KNEE REPLACEMENT Bilateral US BREAST NEEDLE CORE BIOPSY LT Left 11/2021 VAGINAL HYSTERECTOMY Social History Tobacco Use Smoking status: Never Smokeless tobacco: Never Vaping Use Vaping Use: Never used documented in this encounterC[facility]06-09-2023 History of Present illness Narrative* Rand Beaver DO Zheng - 03/23/2023 2:00 PM EDT REASON FOR TODAY'S VISIT: Patient presents with: Established Patient: Review pet scan HISTORY of PRESENT ILLNESS: Anay Samuels is a 78 year old female with a LEFT breast locally advanced breast cancer involving the chest wall and axillary lymph nodes. Presented 11/2021 and has been on neoadjuvant endocrine therapy. ER+MT+HER2- [id number] (thyroid/cervical LN) HISTORY: Patient was last seen for a follow up on 09/28/2022 At that time, she had showed improvement with the use of AI, but clinically, unresectable, with a mass involving her chest wall. In the interim, she continues on AI She is here to discuss the findings on a recent PET scan performed at [facility] on02/27/2023. Review of findings reported both persistent and newly identified viable neoplasm withinthe left breast manifesting interim metabolic progression. ROS: HEENT: Denies vision changes or headaches BREAST: Denies palpating any new breast masses, no breast pain, no skin changes, no nipple discharge ABD: Denies any abdominal pain or new changes in bowel habits MUSCULOSKELETAL: Denies any bone, joint or muscle pain IMAGING: PET scan shows increase areas of uptake new in her breast, continued intermal mammary, axillary andinfraclavicular LN EXAMINATION: GENERAL:well-nourished, healthy, alert and oriented x 3, calm SKIN:warm, dry, skin color, texture, turgor normal HEAD/EYES:normocephalic, atraumatic, and anicteric NECK: supple, symmetrical, no thyromegaly RESPIRATORY: Respirations regular & non-labored ABDOMEN: soft, nondistended. No hepatomegaly., No masses MUSCULOSKELETAL: No observed limitations in range of motion of upper extremities. Patient ambulatesindependently BREASTS: The Patient was examined in the upright and supine positions. Breasts are symmetric. Thereare no significant fibrocystic changes. Patient's cup size is D The patient was examined in the upright and supine position. RIGHT breast soft, no dominant masses, nipple everted, no discharge, no skin changes RIGHT axilla no palpable axillary lymphadenopathy LEFT breast soft, the dominant mass @ the medial inferior fold is less prominent, improved overlying skin, still adherent to the chest wall, nipple everted, nipple areolar complex with skin changes consistent with skin involvement of cancer LEFT axilla no palpable axillary lymphadenopathy appreciated today, no lymphedema Regional Lymph Nodes: There is no concerning supraclavicular, infraclavicular or cervical lymphadenopathy. PROCEDURE: LEFT areolar skin punch biopsy Patient verified by: Name and Date of Site of the procedure confirmed:yes Staff involved: Zheng The breast was prepped and draped in a sterile manner. 3cc of lidocaine 1% was injected for local anesthesia. A 2 mm skin punch biopsy was used. 1 area of skin was removed and placed in formalin. A 4.0 Chromic was used to close the skin. A bandage was applied. The patient tolerated the procedure well. IMPRESSION: Anay Samuels is a 77 year old female who presented 11/2021 with a LEFT breast locally advanced breast cancer involving the chest wall and axillary lymph nodes. She has been on neoadjuvant endocrine therapy (anastrozole). Initial improvement, but now appears to have new breast masses with involvement of her NAC skin - skin punch bx performed today PLAN: She had a LEFT breast skin punch biopsy performed today. Discussed this is cancer, but repeat bx todetermine receptor status is important. I will present her case at tumor board - as she appears still unresectable for cure. I will touch base with her and her medical oncologist. She has our names and numbers to stay in touch if she has any questions, concerns or problems in the interim. Rand Calzada DO Breast Surgeon cc: Erik Nguyen MD [address] [facility] [address] [address] documented in this encounterCleveland [facility]12-22-2022 NoteHNO ID: [id number] Author: Rand Calzada DO Service: ? Author Type: Physician Type: Progress Notes Filed: 10/06/2022 6:16 AM Note Text: REASON FOR TODAY'S VISIT: Patient presents with: Established Patient HISTORY of PRESENT ILLNESS: Anay Samuels is a 77 year old female who presented for a 2nd opinion in 11/2021 for a LEFT breast locally advanced cancer 4.2 x 4.4 x 3.4 cm @ 9:00, 6 cm FN. +LN mets. + internal mammary lymph nodes cT4N3(internal mammary), she had positive axillary and intramammary lymph nodes and cancer extends through her skin in her chest wall muscle. In October, she had a mammogram followed by an US of the left breast that showed a 4.4 x 4.2 cm mass in the left breast in the deep medial aspect plus a 2.7 x 3.4 abnormally appearing lymph node in the left axilla plus at least 2 more abnormal nodes. She subsequently underwent biopsy of those lesions. 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 For this reasons patient states, she pursued no work-up was obtained on this left breast mass until earlier this year. PET CT that demonstrated FDG avidity in the left axillary, retropectoral and external-internal mammary lymph node distributions and no other significant hypermetabolic lesions in abdomen or pelvis. She was seen by Oncology at OSH with recommendations for possibly hormonal therapy, she also was seen by Surgery (Dr. Carvalho) who recommended against surgery upfront. She was referred to [facility] for second opinion. HISTORY: She was presented to the Tumor Board and neoadjuvant endocrine therapy, Anastrazole,was recommended Patient has been followed by Dr. Alex Love (Medical Oncologist) at [facility] ([facility] Remains on Anastrozole without any side effects and reports the left lump has decreased in size. Tolerating the medication well. Overall, has stayed pretty healthy since I last saw her. Presents with her today. IMAGIN09/14/22 [facility] 0539 - CT CHEST W IVCON / ACCESSION # EXAMINATION: CHEST CT WITH CONTRAST CLINICAL HISTORY: History of breast cancer Comparison: CT chest 11/07/2021 RESULT: Limitations: None. Lines, tubes, and devices: None. Lung parenchyma and airways: No consolidation. Stable scarring or atelectasis in the medial right middle lobe and lingula. No suspicious pulmonary nodule. The central airways are patent. Pleural space: No pleural effusion. No pleural thickening. Lower neck, lymph nodes, and mediastinum: Heterogeneous thyroid parenchyma. Stable appearance of bilateral thyroid nodules. Stable subcentimeter mediastinal, hilar and right axillary lymph nodes. Decreased size of left axillary lymph nodes. Largest left axillary lymph node measures 1.4 x 1.3 cm (2:55), previously 2.4 x 2.3 cm. Heart, pericardium, and thoracic vessels: The thoracic aorta and main pulmonary artery are normal in caliber. The cardiac chambers are normal in size. Coronary artery atherosclerotic calcifications are noted, although the study is not optimized for coronary assessment. No pericardial effusion or thickening. Bones and soft tissues: Generalized osteopenia. No acute fracture or destructive osseous lesion. Degenerative disease of the thoracic spine. Lobulated mass in the medial left breast measures 3.2 x 2.5 cm (2:90), previously 4 x 3.6 cm. There is left breast skin thickening. Upper abdomen: No acute abnormality in the imaged upper abdomen. Small sliding hiatal hernia. Rn Cardiac Rehab (topogram) images: No additional findings. IMPRESSION: 1. No suspicious pulmonary nodules 2. Decreased size of left axillary lymph nodes 3. Decreased size of a lobulated mass in the medial left breast EXAMINATION: GEN alert and orientated, well nourished, calm Regional Lymph Nodes There is no concerning supraclavicular, infraclavicular or cervical lymphadenopathy. BREASTS: The patient was examined in the upright and supine position. RIGHT breast soft, no dominant masses, nipple everted, no discharge, no skin changes RIGHT axilla no palpable axillary lymphadenopathy LEFT breast soft, dominant 3 cm mass in the lower inner quadrant, remains fixed to the underlying chest wall, nipple everted, no discharge, improved overlying skin changes LEFT axilla no palpable axillary lymphadenopathy appreciated ABD soft, non-distended, non-tender, no organomegaly EXT ambulated independently, good ROM of upper extremities, no evidence of lymphedema IMPRESSION: Anay Samuels is a 77 year old female with a LEFT breast l (more content not included)...[facility]12-22-2022 History of Present illness Narrative* Rand Calzada, DO - 10/05/2022 11:11 AM EST REASON FOR TODAY'S VISIT: Patient presents with: Established Patient HISTORY of PRESENT ILLNESS: Anay Samuels is a 77 year old female who presented for a 2nd opinion in 11/2021 for a LEFT breast locally advanced cancer 4.2 x 4.4 x 3.4 cm @ 9:00, 6 cm FN. +LN mets. + internal mammary lymph nodes cT4N3(internal mammary), she had positive axillary and intramammary lymph nodes and cancer extends through her skin in her chest wall muscle. In October, she had a mammogram followed by an US of the left breast that showed a 4.4 x 4.2 cm mass in the left breast in the deep medial aspect plus a 2.7 x 3.4 abnormally appearing lymph nodein the left axilla plus at least 2 more abnormal nodes. She subsequently underwent biopsy of those lesions. 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 In 2019, patient reports she was hospitalized at OSH with nausea, vomit, weakness, malnutrition and75 lb weight loss which where related to a hiatal hernia, possible gastric volvulus and she underwent multiple scopes, feeding tube placement (no surgery) and eventually was discharged to recovered in Acute Rehab. For this reasons patient states, she pursued no work-up was obtained on this left breast mass until earlier this year. PET CT that demonstrated FDG avidity in the left axillary, retropectoral and external-internal mammary lymph node distributions and no other significant hypermetabolic lesions in abdomen or pelvis. She was seen by Oncology at OSH with recommendations for possibly hormonal therapy, she also was seen by Surgery (Dr. Carvalho) who recommended against surgery upfront. She was referred to [facility] for second opinion. HISTORY: She was presented to the Tumor Board and neoadjuvant endocrine therapy, Anastrazole,was recommended Patient has been followed by Dr. Alex Love (Medical Oncologist) at [facility] ([facility]). Remains on Anastrozole without any side effects and reports the left lump has decreased in size. Tolerating the medication well. Overall, has stayed pretty healthy since I last saw her. Presents with her today. IMAGIN09/14/22 [facility] [id number] - CT CHEST W IVCON / ACCESSION # EXAMINATION: CHEST CT WITH CONTRAST CLINICAL HISTORY: History of breast cancer Comparison: CT chest 11/07/2021 RESULT: Limitations: None. Lines, tubes, and devices: None. Lung parenchyma and airways: No consolidation. Stable scarring or atelectasis in the medial right middle lobe and lingula. No suspicious pulmonary nodule. The central airways are patent. Pleural space: No pleural effusion. No pleural thickening. Lower neck, lymph nodes, and mediastinum: Heterogeneous thyroid parenchyma. Stable appearance of bilateral thyroid nodules. Stable subcentimeter mediastinal, hilar and right axillary lymph nodes. Decreased size of left axillary lymph nodes. Largest left axillary lymph node measures 1.4 x 1.3 cm(2:55), previously 2.4 x 2.3 cm. Heart, pericardium, and thoracic vessels: The thoracic aorta and main pulmonary artery are normal in caliber. The cardiac chambers are normal in size. Coronary artery atherosclerotic calcifications are noted, although the study is not optimized for coronary assessment. No pericardial effusion or thickening. Bones and soft tissues: Generalized osteopenia. No acute fracture or destructive osseous lesion. Degenerative disease of the thoracic spine. Lobulated mass in the medial left breast measures 3.2 x 2.5 cm (2:90), previously 4 x 3.6 cm. Thereis left breast skin thickening. Upper abdomen: No acute abnormality in the imaged upper abdomen. Small sliding hiatal hernia. Rn Cardiac Rehab (topogram) images: No additional findings. IMPRESSION: 1. No suspicious pulmonary nodules 2. Decreased size of left axillary lymph nodes 3. Decreased size of a lobulated mass in the medial left breast EXAMINATION: GEN alert and orientated, well nourished, calm Regional Lymph Nodes There is no concerning supraclavicular, infraclavicular or cervical lymphadenopathy. BREASTS: The patient was examined in the upright and supine position. RIGHT breast soft, no dominant masses, nipple everted, no discharge, no skin changes RIGHT axilla no palpable axillary lymphadenopathy LEFT breast soft, dominant 3 cm mass in the lower inner quadrant, remains fixed to the underlying chest wall, nipple everted, no discharge, improved overlying skin changes LEFT axilla no palpable axillary lymphadenopathy appreciated ABD soft, non-distended, non-tender, no organomegaly EXT ambulated independently, good ROM of upper extremities, no evidence of lymphedema IMPRESSION: Anay Samuels is a 77 year old female with a LEFT breast locally advanced breast cancer involving the chest wall and axillary lymph nodes. Presented 11/2021 and has been on neoadjuvant endocrine therapy (anastrozole). CT chest follow up to assess response today shows: LEFT breast lobulated mass in the medial left breast measures 3.2 x 2.5 cm (9:00, 3 cm FN), previously 4 x 3.6 cm. There is left breast skin thickening (clinically improved). Decreased size of left axillary lymph nodes. Largest left axillary lymph node measures 1.4 x 1.3 cm (2:55), previously 2.4 x2.3 cm. Stable subcentimeter mediastinal, hilar and right axillary lymph nodes. PLAN: Discussed that at this time she still remains clinically unresectable with mass involving her chestwall. Imaging shows improvement in both tumor and lymph nodes on AI. Patient tolerating AI. Would recommend continuing on the AI at this time, as surgery for clear margins would require MRM with likely removal of a portion of her chest wall. She will continue to follow with her medical oncologist. I will see her again in 6 months with a repeat CT chest to assess resectability. She knows to call to be seen sooner if she notices any changes to suggest growth instead of improvement. Ms. Samuels is in agreement with [facility]. She has our names and numbers to stay in touch if she has any questions, concerns or problems in the interim. Rand Calzada DO Breast Surgeon cc: Rand Calzada [id number] [facility] [address] Erik Nguyen MD [address] [facility] [address] [id number] documented in this encounterC[facility]12[facility] Nurse Note* Ivette Mcginnis LPN - 09/28/2022 4:32 PM EST Follow up Did patient bring outside records to appt today? : No Last mammogram on: 2/24/22 bilateral Results: see report Is the patient active on MyChart Yes Electronically Signed By: Ivette Mcginnis LPN In Department: [facility] REVIEW OF PATIENT HISTORY: OB History T0 L6 SAB0 IAB0 Ectopic0 Multiple0 Live Births0 Comment: Menarche: 8; Age at 1st : 18; Hysterectomy at age 66 due to Uterine prolapse FAMILY HISTORY Problem Relation Age of Onset Cancer Maternal Grandmother liver Breast Cancer Paternal Grandmother 89 Cancer Paternal Grandfather stomach PAST MEDICAL HISTORY Diagnosis Date Arthritis Atrial fibrillation (HCC) on eliquis HTN (hypertension) Malignant neoplasm of overlapping sites of left female breast (HCC) 11/2021 PAST SURGICAL HISTORY Procedure Laterality Date REMOVAL GALLBLADDER TOTAL KNEE REPLACEMENT Bilateral US BREAST NEEDLE CORE BIOPSY LT Left 11/2021 VAGINAL HYSTERECTOMY Social History Tobacco Use Smoking status: Never Smokeless tobacco: Never Vaping Use Vaping Use: Never used documented in this encounterCleveland [facility]12-01-2022 NoteHNO ID: [id number] Author: RT Palma(R) Service: ? Author Type: Slip Dumper Type: Progress Notes Filed: 09/14/2022 10:30 AM Note Text: Radiology Service Progress Note PATIENT NAME: Anay Samuels DATE OF SERVICE: September 14, 2022 TIME: 10:29 AM PATIENT IDENTITY VERIFICATION COMPLETED USING TWO (2) IDENTIFIERS: Name and Date of confirmed by patient verbally. FALL SCREENING: Has the patient had 2 falls in the last year or 1 fall with injury or currently using an Ambulatory Assistive Device (Walker, Cane, Wheelchair, Crutches, etc.)? No PATIENT GENDER DATA: Female. status: : No status: NO. PATIENT RELEVANT IMPLANT DATA REVIEWED: Yes RADIOLOGY DEPARTMENT: CT; Exam(s) Completed: Chest PERIPHERAL IV DATA: Site assessment: Clean,Dry and Intact, Site disposition Discontinued SIGNED BY: RT Palma(R) September 14, 2022 10:29 [facility]12-01-2022 NoteHNO ID: [id number] Author: Benny Blood RN Service: Nursing Author Type: Registered Nurse Type: Progress Notes Filed: 09/14/2022 10:51 AM Note Text: Radiology Service Progress Note DATE OF SERVICE: September 14, 2022 TIME: 10:21 AM PATIENT WEIGHT: 180LBS PATIENT IDENTITY VERIFICATION COMPLETED USING TWO (2) STANDARD IDENTIFIERS: Name and Date of confirmed by patient verbally. FALL SCREENING: Has the patient had 2 falls in the last year or 1 fall with injury or currently using an Ambulatory Assistive Device (Walker, Cane, Wheelchair, Crutches, etc.)? Yes, Patient High Risk for Falls What interventions were put in place to prevent falls during this visit? Instructed Patient to Call for Help if Needed, Offered Assistance with Transfers/Clothing, Instructed Patient to Remain Seated (Not on Exam Table) Until Exam, and Increased Observations by Caregivers PATIENT GENDER DATA: Female. status: : No status: NO. ALLERGIES: Reviewed and unchanged CONTRAST ALLERGY: No EXAM: CT -CONTRAST INDUCED NEPHROPATHY RISK FACTORS: Patient age > 60 years CREATININE: No results found for: CREAT, EGFROTH, EGFRAA P.O.C.T. RESULTS: POC done: Yes, See Lab Tab September 14, 2022 TREATMENT: N/A IV SITE: Ambulatory: A peripheral IV was started in the Right antecubital site with a Angio cath: 22 gauge. IV SITE APPEARANCE: Clean,Dry and Intact SIGNATURE: Benny Blood RN PATIENT NAME: Anay Samuels DATE: September 14, 2022 TIME: 10:21 [facility]12-01-2022 History of Present illness Narrative* Rashmi Taylor RT(R) - 09/14/2022 10:00 AM EST Radiology Service Progress Note PATIENT NAME: Anay Samuels DATE OF SERVICE: September 14, 2022 TIME: 10:29 AM PATIENT IDENTITY VERIFICATION COMPLETED USING TWO (2) IDENTIFIERS: Name and Date of confirmedby patient verbally. FALL SCREENING: Has the patient had 2 falls in the last year or 1 fall with injury or currently using an Ambulatory Assistive Device (Walker, Cane, Wheelchair, Crutches, etc.)? No PATIENT GENDER DATA: Female. status: : No status: NO. PATIENT RELEVANT IMPLANT DATA REVIEWED: Yes RADIOLOGY DEPARTMENT: CT; Exam(s) Completed: Chest PERIPHERAL IV DATA: Site assessment: Clean,Dry and Intact, Site disposition Discontinued SIGNED BY: RT Palma(R) September 14, 2022 10:29 AM * Benny Blood RN - 09/14/2022 10:00 AM EST Radiology Service Progress Note DATE OF SERVICE: September 14, 2022 TIME: 10:21 AM PATIENT WEIGHT: 180LBS PATIENT IDENTITY VERIFICATION COMPLETED USING TWO (2) STANDARD IDENTIFIERS: Name and Date of confirmed by patient verbally. FALL SCREENING: Has the patient had 2 falls in the last year or 1 fall with injury or currently using an Ambulatory Assistive Device (Walker, Cane, Wheelchair, Crutches, etc.)? Yes, Patient High Riskfor Falls What interventions were put in place to prevent falls during this visit? Instructed Patient to Callfor Help if Needed, Offered Assistance with Transfers/Clothing, Instructed Patient to Remain Seated(Not on Exam Table) Until Exam, and Increased Observations by Caregivers PATIENT GENDER DATA: Female. status: : No status: NO. ALLERGIES: Reviewed and unchanged CONTRAST ALLERGY: No EXAM: CT -CONTRAST INDUCED NEPHROPATHY RISK FACTORS: Patient age > 60 years CREATININE: No results found for: CREAT, EGFROTH, EGFRAA P.O.C.T. RESULTS: POC done: Yes, See Lab Tab September 14, 2022 TREATMENT: N/A IV SITE: Ambulatory: A peripheral IV was started in the Right antecubital site with a Angio cath: 22 gauge. IV SITE APPEARANCE: Clean,Dry and Intact SIGNATURE: Benny Blood RN PATIENT NAME: Anay Samuels DATE: September 14, 2022 TIME: 10:21 AM documented in this encounterCleveland Clinic [facility]09-01-2022 NoteIMPRESSION: INCOMPLETE: NEEDS ADDITIONAL IMAGING EVALUATION The mass in the left breast middle depth inner region seen on the craniocaudal view only is indeterminate. An ultrasound is recommended. The lymph node in the left breast posterior depth upper region seen on the mediolateral oblique view only is indeterminate. An ultrasound is recommended. The high density mass in the left breast posterior depth inner region seen on the craniocaudal view only is a known biopsy positive for malignancy. An ultrasound is recommended. LIMITED ULTRASOUND OF LEFT BREAST: 06/15/2022 RESULT: Comparison is made to exams dated: 12/08/2021 ultrasound and 12/08/2021 mammogram - [facility]. Real-time ultrasound of the left breast was performed. Delgado scale images of the real-time examination were reviewed. There is 0.8 cm x 0.5 cm x 0.8 cm irregular mass in the left breast at 9 o'clock 4 cm from the nipple. This irregular mass is hypoechoic. This correlates with mammography findings. Color flow imaging demonstrates that there is no vascularity present. There also is 2.1 cm x 1.6 cm x 2.4 cm irregular mass in the left breast at 9 o'clock 6 cm from the nipple. This irregular mass is hypoechoic. This abnormality is decreased in size and correlates with mammography findings. There is an associated biopsy clip. Color flow imaging demonstrates that there is vascularity present. Additionally, there is 0.5 cm x 0.5 cm x 0.5 cm left axillary lymph node. This abnormality is decreased in size. There is an associated biopsy clip. There are two additional abnormal axillary nodes seen measuring 0.7 cm and 1.3 cm. IMPRESSION: SUSPICIOUS FINDING - BIOPSY SHOULD BE CONSIDERED The 0.8 cm x 0.5 cm x 0.8 cm irregular mass in the left breast at 9 o'clock is suspicious of malignancy. A surgical consult is recommended. The 2.1 cm x 1.6 cm x 2.4 cm irregular mass in the left breast at 9 o'clock is a known biopsy positive for malignancy. A surgical consult is recommended. The 0.5 cm x 0.5 cm x 0.5 cm left axillary lymph node is a known biopsy positive for malignancy. A surgical consult is recommended. SUMMARY: The patient is under the care of Dr. Calzada. Geremias carver/cyrus:06/15/2022 13:02:36 Multiple national specialty organizations have released breast cancer screening guidelines for women at average risk for developing breast cancer - guidelines that are based on both evidence and opinion, yet differ on when to start and how often to screen for breast cancer. With representation from Breast Imaging, Internal Medicine, Women's Health, Family Medicine, and Medical/Surgical Oncology, the [facility] has carefully reviewed the data and reached the following consensus: 1) All women should engage in shared decision-making with their providers to decide when to start and how often to screen; 2) All women should have the opportunity to start screening mammography at age 40; 3) For women ages 45-55, we recommend annual screening mammograms; 4) For women ages 55 and over, we support both the transition from an annual to a biennial interval if this aligns more with patient's values and preferences, or continuation with annual screening; 5) All women should discuss with their providers when to stop screening mammograms. Payment Analyst(s): RT Edie(R)(M), [facility]; RT Adrien(R)(M), [facility] OVERALL STUDY BIRADS: 4 Suspicious finding - Biopsy should be considered Fitter/Welder: Cyrus Transcribe Date/Time: Jun 15 2022 9:14A Dictated by: GEREMIAS HOYOS MD This examination was interpreted and the report reviewed and electronically signed by: GEREMIAS HOYOS MD on Jun 15 2022 1:02PM [facility] OF [id number] NoteIMPRESSION: INCOMPLETE: NEEDS ADDITIONAL IMAGING EVALUATION The mass in the left breast middle depth inner region seen on the craniocaudal view only is indeterminate. An ultrasound is recommended. The lymph node in the left breast posterior depth upper region seen on the mediolateral oblique view only is indeterminate. An ultrasound is recommended. The high density mass in the left breast posterior depth inner region seen on the craniocaudal view only is a known biopsy positive for malignancy. An ultrasound is recommended. LIMITED ULTRASOUND OF LEFT BREAST: 06/15/2022 RESULT: Comparison is made to exams dated: 12/08/2021 ultrasound and 12/08/2021 mammogram - [facility]. Real-time ultrasound of the left breast was performed. Delgado scale images of the real-time examination were reviewed. There is 0.8 cm x 0.5 cm x 0.8 cm irregular mass in the left breast at 9 o'clock 4 cm from the nipple. This irregular mass is hypoechoic. This correlates with mammography findings. Color flow imaging demonstrates that there is no vascularity present. There also is 2.1 cm x 1.6 cm x 2.4 cm irregular mass in the left breast at 9 o'clock 6 cm from the nipple. This irregular mass is hypoechoic. This abnormality is decreased in size and correlates with mammography findings. There is an associated biopsy clip. Color flow imaging demonstrates that there is vascularity present. Additionally, there is 0.5 cm x 0.5 cm x 0.5 cm left axillary lymph node. This abnormality is decreased in size. There is an associated biopsy clip. There are two additional abnormal axillary nodes seen measuring 0.7 cm and 1.3 cm. IMPRESSION: SUSPICIOUS FINDING - BIOPSY SHOULD BE CONSIDERED The 0.8 cm x 0.5 cm x 0.8 cm irregular mass in the left breast at 9 o'clock is suspicious of malignancy. A surgical consult is recommended. The 2.1 cm x 1.6 cm x 2.4 cm irregular mass in the left breast at 9 o'clock is a known biopsy positive for malignancy. A surgical consult is recommended. The 0.5 cm x 0.5 cm x 0.5 cm left axillary lymph node is a known biopsy positive for malignancy. A surgical consult is recommended. SUMMARY: The patient is under the care of Dr. Calzada. Serine Miguel carver/cyrus:06/15/2022 13:02:36 Multiple national specialty organizations have released breast cancer screening guidelines for women at average risk for developing breast cancer - guidelines that are based on both evidence and opinion, yet differ on when to start and how often to screen for breast cancer. With representation from Breast Imaging, Internal Medicine, Women's Health, Family Medicine, and Medical/Surgical Oncology, the [facility] has carefully reviewed the data and reached the following consensus: 1) All women should engage in shared decision-making with their providers to decide when to start and how often to screen; 2) All women should have the opportunity to start screening mammography at age 40; 3) For women ages 45-55, we recommend annual screening mammograms; 4) For women ages 55 and over, we support both the transition from an annual to a biennial interval if this aligns more with patient's values and preferences, or continuation with annual screening; 5) All women should discuss with their providers when to stop screening mammograms. Payment Analyst(s): RT Edie(R)(M), [facility]; Taylor Meza RT(R)(M), [facility] OVERALL STUDY BIRADS: 4 Suspicious finding - Biopsy should be considered Fitter/Welder: Cyrus Transcribe Date/Time: Jun 15 2022 9:14A Dictated by: GEREMIAS HOYOS MD This examination was interpreted and the report reviewed and electronically signed by: GEREMIAS HOYOS MD on Jun 15 2022 1:02PM [facility] OF [id number] NoteHNO ID: [id number] Author: Rand Calzada, DO Service: ? Author Type: Physician Type: Progress Notes Filed: 06/22/2022 10:23 PM Note Text: REASON FOR TODAY'S VISIT: Patient presents with: Established Patient HISTORY of PRESENT ILLNESS: Anya Samuels is a 76 year female who presented for a 2nd opinion in 11/2021 for a LEFT breast locally advanced cancer 4.2 x 4.4 x 3.4 cm @ 9:00, 6 cm FN. +LN mets. + internal mammary lymph nodes CT4N3(internal mammary), she had positive axillary and intramammary lymph nodes and cancer extends through her skin in her chest wall muscle. In October, she had a mammogram followed by an US of the left breast that showed a 4.4 x 4.2 cm mass in the left breast in the deep medial aspect plus a 2.7 x 3.4 abnormally appearing lymph node in the left axilla plus at least 2 more abnormal nodes. She subsequently underwent biopsy of those lesions. 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 For this reasons patient states, she pursued no work-up was obtained on this left breast mass until earlier this year. PET CT that demonstrated FDG avidity in the left axillary, retropectoral and external-internal mammary lymph node distributions and no other significant hypermetabolic lesions in abdomen or pelvis. She was seen by Oncology at OSH with recommendations for possibly hormonal therapy, she also was seen by Surgery (Dr. Carvalho) who recommended against surgery upfront. She was referred to [facility] for second opinion. Has not started any therapy yet. HISTORY: She was presented to the Tumor Board and neoadjuvant endocrine therapy, Anastrazole,was recommended Patient has been followed by Dr. Alex Love (Medical Oncologist) at [facility] ([facility]). Remains on Anastrozole without any side effects and reports the left lump has decreased in size. Patient reports the thyroid nodules were work up and without findings She underwent repeat diagnostic imaging earlier today to check for response to treatment and is here to discuss the imaging findings as well as her follow up plan. ROS: HEENT: Denies vision changes or headaches BREAST: Denies palpating any new breast masses, no breast pain, no skin changes, no nipple discharge ABD: Denies any abdominal pain or new changes in bowel habits MUSCULOSKELETAL: Denies any bone, joint or muscle pain IMAGING: UNILATERAL LEFT DIGITAL DIAGNOSTIC MAMMOGRAM TOMOSYNTHESIS WITH CAD: 06/15/2022 HISTORY: Known left breast cancer, on hormonal therapy Multiple Diagnoses/ / Short term follow up left breast-Abnormal Mammogram. RESULT: TECHNIQUE: The study was acquired using full field digital technology and interpreted from soft copy. Digital Breast Tomosynthesis (DBT) images were obtained and used to assist in the interpretation of this examination. Current study was also evaluated with a Computer Aided Detection (CAD). Comparison is made to exams dated: 12/08/2021 ultrasound and 12/08/2021 mammogram - [facility]. There are scattered fibroglandular elements in left breast. Unchanged skin thickening, most prominent in ther periareolar region and lower inner left breast. There is a mass in the left breast middle depth inner region seen on the craniocaudal view only. Finding is best noted on tomographic CC slice 30. There also is a lymph node in the left breast posterior depth upper region seen on the mediolateral oblique view only. This is decreased in size. Additionally, there is a high density mass in the left breast posterior depth inner region seen on the craniocaudal view only. Finding is best noted on tomographic CC slice 18. This is decreased in size. No other significant masses or calcifications are seen in the breast. IMPRESSION: INCOMPLETE: NEEDS ADDITIONAL IMAGING EVALUATION The mass in the left breast middle depth inner region seen on the craniocaudal view only is indeterminate. An ultrasound is recommended. The lymph node in the left breast posterior depth upper region seen on the mediolateral oblique view only is indeterminate. An ultrasound is recommended. The high density mass in the left breast posterior depth inner region seen on the craniocaudal view only is a known biopsy positive for malignancy. An ultrasound is recommended. LIMITED ULTRASOUND OF LEFT BREAST: 06/15/2022 RESULT: Comparison is made to exams dated: 12/08/2021 ultrasound and 12/08/2021 mammogram - [facility]. Real-time ultrasound of the left breast was perfor (more content not included)...[facility]09-01-2022 NoteHNO ID: [id number] Author: Sara uJrado Service: ? Author Type: Slip Dumper Type: Progress Notes Filed: 06/15/2022 9:46 AM Note Text: Radiology Service Progress Note PATIENT NAME: Anay Samuels DATE OF SERVICE: June 15, 2022 TIME: 9:45 AM PATIENT IDENTITY VERIFICATION COMPLETED USING TWO (2) IDENTIFIERS: Name and Date of confirmed by patient verbally. FALL SCREENING: Has the patient had 2 falls in the last year or 1 fall with injury or currently using an Ambulatory Assistive Device (Walker, Cane, Wheelchair, Crutches, etc.)? No PATIENT GENDER DATA: Female. status: : No status: NO. PATIENT RELEVANT IMPLANT DATA REVIEWED: Yes RADIOLOGY DEPARTMENT: Mammography PERIPHERAL IV DATA: Not applicable SIGNED BY: Sara Jurado June 15, 2022 9:45 [facility]09-01-2022 Nurse Note* Ivette Mcginnis LPN - 06/15/2022 10:56 AM EDT Follow up Did patient bring outside records to appt today? : No Last mammogram on: 12/08/2021 bilateral Results: see report Is the patient active on [employer] Yes Electronically Signed By: Ivette Mcginnis LPN In Department: [facility] REVIEW OF PATIENT HISTORY: OB History T0 L6 SAB0 IAB0 Ectopic0 Multiple0 Live Births0 Comment: Menarche: 8; Age at 1st : 18; Hysterectomy at age 66 due to Uterine prolapse FAMILY HISTORY Problem Relation Age of Onset Cancer Maternal Grandmother liver Breast Cancer Paternal Grandmother 89 Cancer Paternal Grandfather stomach PAST MEDICAL HISTORY Diagnosis Date Arthritis Atrial fibrillation (HCC) on eliquis HTN (hypertension) Malignant neoplasm of overlapping sites of left female breast (HCC) 11/2021 PAST SURGICAL HISTORY Procedure Laterality Date REMOVAL GALLBLADDER TOTAL KNEE REPLACEMENT Bilateral US BREAST NEEDLE CORE BIOPSY LT Left 11/2021 VAGINAL HYSTERECTOMY Social History Tobacco Use Smoking status: Never Smokeless tobacco: Never Vaping Use Vaping Use: Never used [facility] History of Present illness Narrative* Rand Calzada DO - 06/15/2022 10:00 AM EDT REASON FOR TODAY'S VISIT: Patient presents with: Established Patient HISTORY of PRESENT ILLNESS: Anay Samuels is a 76 year female who presented for a 2nd opinion in 11/2021 for a LEFT breast locally advanced cancer 4.2 x 4.4 x 3.4 cm @ 9:00, 6 cm FN. +LN mets. + internal mammary lymph nodes CT4N3(internal mammary), she had positive axillary and intramammary lymph nodes and cancer extends through her skin in her chest wall muscle. In October, she had a mammogram followed by an US of the left breast that showed a 4.4 x 4.2 cm mass in the left breast in the deep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 Provider Active Start : April 07, 2025 Jorge A Barclay MD Referring Provider Active Start : April 07, 2025 Team Status: Inactive Member Role Status Dates Jorge A Barclay MD Primary Care Provider Active St art: April 07, 2025 End: April 07, 2025 Jorge A Barclay MD Referring Provider Active Start : April 07, 2025 End: April 07, 2025 Dr. Alex Love MD Attending Provider Active S tart: April 07, 2025 End: April 07, 2025 Team Status: Inactive Member Role Status Ana Barclay MD Primary Care Provider Active St art: April 08, 2025 End: April 08, 2025 Dr. Shaun Camejo DO Emergency Provider Active Start: April 08, 2025 End: April 08, 2025 Team Status: Active Member Role/Relationship Status Ana Barclay MD Primary Care Provider Active Team Status: Inactive Member Role/Relationship Status Ana Barclay MD Primary Care Provider Active St art: December 18, 2024 End: December 18, 2024 Jorge A Barclay MD Referring Provider Active Start : December 18, 2024 End: December 18, 2024 Dr. Stiven Steele MD Attending Provider Active Start: December 18, 2024 End: December 18, 2024 Team Status: Inactive Member Role/Relationship Status Ana Barclay MD Primary Care Provider Active St art: December 24, 2024 End: December 24, 2024 Jorge A Barclay MD Referring Provider Active Start : December 24, 2024 End: December 24, 2024 Dr. Alex Love MD Attending Provider Active S tart: December 24, 2024 End: December 24, 2024 Team Status: Inactive Member Role/Relationship Status Ana Barclay MD Primary Care Provider Active St art: December 31, 2024 End: December 31, 2024 Jorge A Barclay MD Referring Provider Active Start : December 31, 2024 End: December 31, 2024 Dr. Alex Love MD Attending Provider Active S tart: December 31, 2024 End: December 31, 2024 Team Status: Active Member Role/Relationship Status Ana Barclay MD Primary Care Provider Active St art: January 01, 2025 Princess Shepherd Attending Provider Active Start: January 01, 2025 Team Status: Inactive Member Role/Relationship Status Ana Barclay MD Primary Care Provider Active St art: February 09, 2025 End: February 09, 2025 Jorge A Barclay MD Referring Provider Active Start : February 09, 2025 End: February 09, 2025 Dr. Alex Love MD Attending Provider Active S tart: February 09, 2025 End: February 09, 2025 Team Status: Inactive Member Role/Relationship Status Ana Barclay MD Primary Care Provider Active St art: March 10, 2025 End: March 10, 2025 Jorge A Barclay MD Referring Provider Active Start : March 10, 2025 End: March 10, 2025 Dr. Alex Love MD Attending Provider Active S tart: March 10, 2025 End: March 10, 2025 Team Status: Active Member Role/Relationship Status Dates Dr. Alex Love MD Attending Provider Active S tart: April 02, 2025 Dr. Alex Love MD Referring Provider Active S tart: April 02, 2025 Dr. Collin Cintron DO Other Provider Active Sta rt: April 02, 2025 Jorge A Barclay MD Primary Care Provider Active St art: April 02, 2025 Team Status: Inactive Member Role/Relationship Status Ana Barclay MD Primary Care Provider Active St art: April 07, 2025 End: April 07, 2025 Jorge A Barclay MD Attending Provider Active Start : April 07, 2025 End: April 07, 2025 Jorge A Barclay MD Referring Provider Active Start : April 07, 2025 End: April 07, 2025 Team Status: Inactive Member Role/Relationship Status Ana Barclay MD Primary Care Provider Active St art: April 07, 2025 End: April 07, 2025 Jorge A Barclay MD Referring Provider Active Start : April 07, 2025 End: April 07, 2025 Dr. Alex Love MD Attending Provider Active S tart: April 07, 2025 End: April 07, 2025 Team Status: Inactive Member Role/Relationship Status Ana Barclay MD Primary Care Provider Active St art: April 08, 2025 End: April 08, 2025 Dr. Shaun Camejo DO Attending Provider Active Start: April 08, 2025 End: April 08, 2025 Dr. Shaun Camejo DO Emergency Provider Active Start: April 08, 2025 End: April 08, 2025 Manager Sql Relationship Specialty Start Date End Date Jorge A Barclay MD [address] [place] [phone] PCP - General Family Medicine 04/08/25 Reason for Visit (unrecogniz ed section and content) Reason Comments Established Patient Reason Comments Established Patient Review pet scan Reason Comments Results Reason Comments Radiology CT Specialty Diagnoses / Procedures Referred By Contac t Referred To Contact CT IMAGING Diagnoses Localized enlarged lymph nodes Procedures CT CHEST W IVCON DIAGNOSTIC COMPUTED TOMOGRAPHY THORAX [place] [address] [place] [address] [place] [id number] Referral ID Status Reason Start Date Expiration Date V isits Requested Visits Authorized [id number] Closed Auto-Generate d Referral 06/15/2022 07/15/2023 1 1 Reason Comments Radiology Mammogram Specialty Diagnoses / Procedures Referred By Contac t Referred To Contact BR IMAGING Diagnoses Breast cancer metastasized to axillary lymph node, left (HCC) Procedures LOLIS DIAGNOSTIC LT DIAGNOSTIC MAMMOGRAPHY COMPUTER-[place] [address] [place] [address] [facility] [address] [place] [address] Referral ID Status Reason Start Date Expiration Date V isits Requested Visits Authorized [id number] Closed Auto-Generate d Referral 05/22/2022 06/21/2023 1 1 Scheduled Active and Recently Administ ered Medications (unrecognized section and content) Medication Order 04/18/2025 04/19/2025 04/20/2025 Acetaminophen (TYLENOL) tablet 975 mg(Linked Group 1) 975 mg, Oral, EVERY 6 HOURS, First dose (after last modification) on Ayala 04/16/25 at 0900, Until Discontinued, Maximum dose of acetaminophen is 4000 mg from all sources in 24 hours. 0456 (Given - Provider: Greer Newell RN - Comment: patient prefers scheduled tylenol over oxycodone. nurse offered oxycodone)1146 (Given - Provider: Kathleen Oviedo RN)1725 (Given - Provider: Viktoria Laguerre RN)2334 (Given - Provider: Abby Johnson, RN) 0616 (Given - Provider: Abby Johnson RN)1217 (Given - Provider: Kathleen Oviedo RN)1818 (Given - Provider: Kathleen Oviedo RN)2356 (Given - Provider: Greer Newell RN - Comment: schduled) 0908 (Not Given - Provider: Parul Fontanez RN - Reason: Patient/family refused)1134 (Given - Provider: Parul Fontanez RN)1800 (Canceled Entry - Provider: System Discharge - Comment: Automatically canceled at discontinue of medication order) Atorvastatin (LIPITOR) tablet 40 mg 40 mg, Oral, DAILY AT BEDTIME, First dose on Sun04/11/25 at 2100, Until Discontinued 2032 (Given - Provider: Abby Johnson RN) 1940 (Given - Provider: Greer Newell RN) cholecalciferol (VITAMIN D3) tablet 5,000 Units 5,000 Units, Oral, DAILY, First dose on Sun04/10/25 at 0900, Until Discontinued 758 (Given - Provider: Kathleen Oviedo RN) 08 (Given - Provider: Kathleen Oviedo RN) 0910 (Given - Provider: Parul Fontanez RN) Enoxaparin Sodium (LOVENOX) injection 40 mg(Linked Group 2) 40 mg, Subcutaneous, DAILY, First dose on Sun04/12/25 at 0900, Until Discontinued, For SUBCUTANEOUS route ONLY: alternate injection sites between left and right abdominal wall, pinching location and avoiding area around navel. If unable to use abdominal sites, may use the front or side of thighs., Indications: DVT/PE prophylaxis 075 (Given - Provider: Kathleen Oviedo RN) 08 (Given - Provider: Kathleen Oviedo RN) 0910 (Given - Provider: Parul Fontanez, RN) Folic acid (FOLVITE) tablet 1 mg 1 mg, Oral, DAILY, First dose on Sun04/10/25 at 0900, Until Discontinued 758 (Given - Provider: Kathleen Oviedo RN) 0833 (Given - Provider: Kathleen Oviedo RN) 0910 (Given - Provider: Parul Fontanez, PITO) Metoprolol (LOPRESSOR) tablet 25 mg 25 mg, Oral, EVERY 12 HOURS, First dose (after last modification) on Ayala 04/16/25 at 0900, Until Discontinued 075 (Given - Provider: Kathleen Oviedo RN)2032 (Given - Provider: Abby Johnson RN) 08 (Given - Provider: Kathleen Oviedo RN)1940 (Given - Provider: Greer Newell RN) 0910 (Given - Provider: Parul Fontanez, PITO) Pantoprazole (PROTONIX) tablet DR 40 mg 40 mg, Oral, DAILY, First dose on Sun04/14/25 at 0900, Until Discontinued, Swallow whole; do not crush or chew., Indications: Continuation of Home Therapy 0758 (Given - Provider: Kathleen Oviedo RN) 0833 (Given - Provider: Kathleen Oviedo, RN) 0910 (Given - Provider: Parul Fontanez, RN) Senna (SENOKOT) tablet 8.6 mg(Linked Group 3) 8.6 mg, Oral, DAILY, First dose on Sun04/09/25 at 0900, Until Discontinued 0759 (Hold - Provider: Kathleen Oviedo RN - Reason: Patient with symptoms) 0837 (Hold - Provider: Kathleen Oviedo RN - Reason: Patient with symptoms) 0910 (Given - Provider: Parul Fontanez, PITO) Continuous Medication Order 04/18/2025 04/19/2025 04/20/2025 Sodium chloride 0.9% IV solution Intra-arterial, at 1 mL/hr, CONTINUOUS, Starting on Sun04/08/25 at 1845, Until Sun04/20/25 at 191, Per pressure bag for all transduced lines PRN Medication Order 04/18/2025 04/19/2025 04/20/2025 hydrALAZINE (APRESOLINE) injection 10 mg(Linked Group 4) 10 mg, Intravenous, EVERY 1 HOUR NEEDED, Starting on Sun04/08/25 at 1841, Until Sun04/20/25 at 191, See administration instructions, Use as initial dose for Systolic Blood Pressure GREATER than 180 mmHg and Heart rate LESS than 60 beats per minute. Higher dose may be administered if lower dose was previously documented as ineffective 10 minutes after administration and did not result in adverse effects (HR>90) hydrALAZINE (APRESOLINE) injection 20 mg(Linked Group 4) 20 mg, Intravenous, EVERY 1 HOUR NEEDED, Starting on Sun04/08/25 at 1841, Until Sun04/20/25 at 1914, See administration instructions, Higher dose may be administered for Systolic Blood Pressure GREATER than 180 mmHg and Heart rate LESS than 60 beats per minute if lower dose was previously documented as ineffective 10 minutes after administration and did not result in adverse effects (HR>90). Decrease back to lower dose if patient has adverse effects, or no PRN used in previous 3 hours Ipratropium-albuterol (DUONEB) 0.5-2.5 (3) MG/3ML nebulizer solution 3 mL 3 mL, Nebulization, EVERY 6 HOURS NEEDED, Starting on Sun04/13/25 at 0818, Until Sun04/20/25 at 191, Shortness of Breath, Respiratory Distress, Wheezing Labetalol (NORMODYNE) injection 10 mg(Linked Group 5) 10 mg, Intravenous, EVERY 1 HOUR NEEDED, Starting on Sun04/10/25 at 2352, Until Sun04/20/25 at 1913, See admininstration instructions, Use as initial dose for Systolic Blood Pressure GREATER than 180 mmHg and Heart Rate GREATER than 60 beats per minute. Higher dose may be administered if lower dose was previously documented as ineffective 10 minutes after administration and did not result in adverse effects (HR<60) For vials: labetalol should be treated as a SINGLE USE VIAL. Discard remaining contents after one use. 0340 (Given - Provider: Abby Johnson, PITO)2351 (Given - Provider: Greer Newell RN) Methocarbamol (ROBAXIN) tablet 500 mg 500 mg, Oral, 3 TIMES DAILY NEEDED, Starting on Sun04/16/25 at 0828, Until Sun04/20/25 at 1913, Muscle spasms 1617 (Given - Provider: Parul Fontanez RN) Ondansetron 4mg/2ml (ZOFRAN) injection 4 mg 4 mg, Intravenous, EVERY 6 HOURS NEEDED, Starting on Sun04/09/25 at 0621, Until Sun04/20/25 at 1913, Nausea / Vomiting, Refractory Nausea Vomiting oxyCODONE (ROXICODONE) tablet 2.5 mg(Linked Group 6) 2.5 mg, Oral, EVERY 6 HOURS NEEDED, Starting on Sun04/16/25 at 0828, Until Sun04/20/25 at 1913, Moderate Pain 2032 (See Alternative - Provider: Abby Johnson, PITO) oxyCODONE (ROXICODONE) tablet 5 mg(Linked Group 6) 5 mg, Oral, EVERY 6 HOURS NEEDED, Starting on Sun04/16/25 at 0828, Until Sun04/20/25 at 1913, Severe Pain 2032 (Given - Provider: Abby Johnson RN) Polyethylene glycol (MIRALAX) packet 17 g(Linked Group 7) 17 g, Oral, DAILY NEEDED, Starting on Sun04/08/25 at 1841, Until Sun04/20/25 at 1913, Constipation If No Bowel Movement in 48 Hours, after bisacodyl Prochlorperazine (COMPAZINE) injection 10 mg 10 mg, Intravenous, EVERY 4 HOURS NEEDED, Starting on Sun04/10/25 at 2010, Until Sun04/20/25 at 1913, Nausea / Vomiting, 2nd line, Maximum 40mg/day. For IV route: Give undiluted by slow IV push at a rate of 5 mg/min. Linked Groups Order Group 1: Acetaminophen (TYLENOL) tablet 975 mgJump to med 975 mg, Oral, EVERY 6 HOURS, First dose (after last modification) on Sun04/16/25 at 0900, Until Discontinued, Maximum dose of acetaminophen is 4000 mg from all sources in 24 hours. Group 2: Enoxaparin Sodium (LOVENOX) injection 40 mgJump to med 40 mg, Subcutaneous, DAILY, First dose on Sun04/12/25 at 0900, Until Discontinued, For SUBCUTANEOUS route ONLY: alternate injection sites between left and right abdominal wall, pinching location and avoiding area around navel. If unable to use abdominal sites, may use the front or side of thighs., Indications: DVT/PE prophylaxis And PLATELET COUNT (CANCELED) Routine, EVERY 3 DAYS AM LAB, First occurrence on Sun04/14/25 at 0500, Until Specified, New collection Group 3: Senna (SENOKOT) tablet 8.6 mgJump to med 8.6 mg, Oral, DAILY, First dose on Sun04/09/25 at 0900, Until Discontinued Or Senna (SENOKOT) tablet 8.6 mg (CANCELED) 8.6 mg, Per NG tube, DAILY, First dose on Sun04/09/25 at 0900, Until Discontinued Group 4: hydrALAZINE (APRESOLINE) injection 10 mgJump to med 10 mg, Intravenous, EVERY 1 HOUR NEEDED, Starting on Sun04/08/25 at 1841, Until Sun04/20/25 at 1914, See administration instructions, Use as initial dose for Systolic Blood Pressure GREATER than 180 mmHg and Heart rate LESS than 60 beats per minute. Higher dose may be administered if lower dose was previously documented as ineffective 10 minutes after administration and did not result in adverse effects (HR>90) Or hydrALAZINE (APRESOLINE) injection 20 mgJump to med 20 mg, Intravenous, EVERY 1 HOUR NEEDED, Starting on Sun04/08/25 at 1841, Until Sun04/20/25 at 1914, See administration instructions, Higher dose may be administered for Systolic Blood Pressure GREATER than 180 mmHg and Heart rate LESS than 60 beats per minute if lower dose was previously documented as ineffective 10 minutes after administration and did not result in adverse effects (HR>90). Decrease back to lower dose if patient has adverse effects, or no PRN used in previous 3 hours Group 5: Labetalol (NORMODYNE) injection 10 mgJump to med 10 mg, Intravenous, EVERY 1 HOUR NEEDED, Starting on Sun04/10/25 at 2352, Until Sun04/20/25 at 1914, See admininstration instructions, Use as initial dose for Systolic Blood Pressure GREATER than 180 mmHg and Heart Rate GREATER than 60 beats per minute. Higher dose may be administered if lower dose was previously documented as ineffective 10 minutes after administration and did not result in adverse effects (HR<60) For vials: labetalol should be treated as a SINGLE USE VIAL. Discard remaining contents after one use. Or Labetalol (NORMODYNE) injection 20 mg (CANCELED) 20 mg, Intravenous, EVERY 1 HOUR NEEDED, Starting on Sun04/10/25 at 2352, Until Sun04/11/25 at 1046, See administration instructions, For Systolic Blood Pressure GREATER than 180 mmHg and if Heart Rate GREATER than 60 beats per minute. Higher dose may be administered if lower dose was previously documented as ineffective 10 minutes after administration and did not result in adverse effects (HR<60). Decrease back to lower dose if patient has adverse effects, or no PRN used in previous 3 hours For vials: labetalol should be treated as a SINGLE USE VIAL. Discard remaining contents after one use. Group 6: oxyCODONE (ROXICODONE) tablet 5 mgJump to med 5 mg, Oral, EVERY 6 HOURS NEEDED, Starting on Sun04/16/25 at 0828, Until Sun04/20/25 at 191, Severe Pain Or oxyCODONE (ROXICODONE) tablet 2.5 mgJump to med 2.5 mg, Oral, EVERY 6 HOURS NEEDED, Starting on Ayala 04/16/25 at 0828, Until Sun04/20/25 at 191, Moderate Pain Group 7: Polyethylene glycol (MIRALAX) packet 17 gJump to med 17 g, Oral, DAILY NEEDED, Starting on 04/08/25 at 1841, Until 04/20/25 at 191, Constipation If No Bowel Movement in 48 Hours, after bisacodyl Or Polyethylene glycol (MIRALAX) packet 17 g (CANCELED) 17 g, Per NG tube, DAILY NEEDED, Starting on 04/08/25 at 1841, Until 04/11/25 at 1447, Constipation If No Bowel Movement in 48 Hours, after bisacodyl FOR RECORDS PERTAINING TO PATIENTS WHO ARE OR HAVE BEEN ENROLLED IN A CHEMICAL DEPENDENCY/SUBSTANCEABUSE PROGRAM, SOME INFORMATION MAY BE OMITTED. This clinical summary was aggregated from multiple sources. Caution should be exercised in using it in the provision of clinical care. This summary normalizes information from multiple sources, and as a consequence, information in this document may materially change the coding, format and clinical context of patient data. In addition, data may be omitted in some cases. CLINICAL DECISIONS SHOULD BE BASED ON THE PRIMARY CLINICAL RECORDS. [facility]. provides no warranty or guarantee of the accuracy or completeness of information in this document.
[2025-04-23] MEDS: Potassium Chloride Oral Tablet 20 MEQ PO ×2 (06:08→17:02)
[2025-04-23 06:50] LABS: Cholesterol 89 mg/dL (<=200); Low Density Lipoprotein Calc. 32 mg/dL; Triglycerides 67 mg/dL; Very Low Density Lipoprotein 13 mg/dL (5-40); cholesterol:hdl ratio screen 2.02
[2025-04-23 09:27] VITALS: PULSE 83
[2025-04-23] MEDS: Cholecalciferol (Vit D3) 125 MCG CAPSULE (5,000 UNITS) PO (09:27)
[2025-04-23] MEDS: Metoprolol(XL)Succ 25 MG Tablet PO (09:27)
[2025-04-23] MEDS: APIXABAN 2.5 MG TABLET (WCH) PO ×2 (09:27→21:49)
[2025-04-23] MEDS: Arthritis Pain Compound 60 CLICK TUBE TOPICAL ×2 (09:28→21:48)
--- NOTE | 2025-04-23 09:33 | NURSING ---
Addendum entered by Chanell Henderson 04/23/25 12:45: Call back from Reanna, she gave orders for nursing to remove roderick 10-14 days post-op. She cancelled appt on 05/01/25 as it was just for staple removal. She will call back with brace instructions. Original Note: Called and spoke with Amar[facility] at [facility]. Asked about doing f/u on 05/01/25 as virtual, and asked about specific neck brace instructions. She is messaging physician to see and they will call back or fax orders to TCU in 1-2 business days.
[2025-04-23 09:52] VITALS: BMI 32.7
[2025-04-23 10:00] VITALS: RESP 18
--- NOTE | 2025-04-23 14:47 | NURSING ---
roderick removed from back of neck as ordered. 27 roderick removed. tolerated procedure well. open to air.
[2025-04-23 15:48] VITALS: BP 149/64; PULSE 83; RESP 18; TEMP 36.4; O2SAT 95
[2025-04-23 20:29] VITALS: BMI 32.6
[2025-04-23] MEDS: Senna/Docusate Sodium 1 Tablet PO (21:49)
[2025-04-23] MEDS: Magnesium Chloride 64 MG Delay Rel.Tablet 128 MG PO (21:49)
[2025-04-24] MEDS: Potassium Chloride Oral Tablet 20 MEQ PO ×2 (06:15→17:52)
[2025-04-24 10:19] VITALS: BP 130/74; PULSE 88; RESP 16; TEMP 36.7; O2SAT 97
[2025-04-24] MEDS: APIXABAN 2.5 MG TABLET (WCH) PO ×2 (10:21→20:45)
[2025-04-24] MEDS: Arthritis Pain Compound 60 CLICK TUBE TOPICAL ×2 (10:21→20:48)
[2025-04-24 10:22] VITALS: PULSE 88
[2025-04-24] MEDS: Cholecalciferol (Vit D3) 125 MCG CAPSULE (5,000 UNITS) PO (10:22)
[2025-04-24] MEDS: Metoprolol(XL)Succ 25 MG Tablet PO (10:22)
[2025-04-24] MEDS: Magnesium Chloride 64 MG Delay Rel.Tablet 128 MG PO (20:45)
[2025-04-25] MEDS: Arthritis Pain Compound 60 CLICK TUBE TOPICAL ×2 (09:46→20:16)
[2025-04-25] MEDS: Potassium Chloride Oral Tablet 20 MEQ PO ×2 (10:04→17:10)
[2025-04-25 10:05] VITALS: PULSE 93
[2025-04-25] MEDS: APIXABAN 2.5 MG TABLET (WCH) PO ×2 (10:05→20:16)
[2025-04-25] MEDS: Metoprolol(XL)Succ 25 MG Tablet PO (10:05)
[2025-04-25] MEDS: Cholecalciferol (Vit D3) 125 MCG CAPSULE (5,000 UNITS) PO (10:06)
[2025-04-25 15:58] VITALS: BP 160/74; PULSE 93; RESP 18; TEMP 36.7; O2SAT 97
[2025-04-25] MEDS: Magnesium Chloride 64 MG Delay Rel.Tablet 128 MG PO (20:16)
[2025-04-26 09:23] VITALS: BP 152/72; PULSE 94; RESP 17; TEMP 36.8; O2SAT 98
[2025-04-26] MEDS: Senna/Docusate Sodium 1 Tablet PO ×2 (09:25→21:02)
[2025-04-26] MEDS: Arthritis Pain Compound 60 CLICK TUBE TOPICAL ×2 (09:25→21:01)
[2025-04-26] MEDS: Potassium Chloride Oral Tablet 20 MEQ PO ×2 (09:25→17:17)
[2025-04-26] MEDS: APIXABAN 2.5 MG TABLET (WCH) PO ×2 (09:25→21:01)
[2025-04-26 09:26] VITALS: PULSE 94
[2025-04-26] MEDS: Cholecalciferol (Vit D3) 125 MCG CAPSULE (5,000 UNITS) PO (09:26)
[2025-04-26] MEDS: Metoprolol(XL)Succ 25 MG Tablet PO (09:26)
[2025-04-26 20:00] VITALS: PULSE 90; O2SAT 98
[2025-04-26] MEDS: Magnesium Chloride 64 MG Delay Rel.Tablet 128 MG PO (21:01)
[2025-04-27 05:20] VITALS: PULSE 91; O2SAT 98
--- NOTE | 2025-04-27 08:34 | NURSING ---
Resident Care Provider Note; MDS for 04/27/2025 Complete
[2025-04-27 09:51] VITALS: PULSE 89
[2025-04-27] MEDS: Senna/Docusate Sodium 1 Tablet PO ×2 (09:51→21:18)
[2025-04-27] MEDS: Metoprolol(XL)Succ 25 MG Tablet PO (09:51)
[2025-04-27] MEDS: Cholecalciferol (Vit D3) 125 MCG CAPSULE (5,000 UNITS) PO (09:51)
[2025-04-27] MEDS: APIXABAN 2.5 MG TABLET (WCH) PO ×2 (09:51→21:18)
[2025-04-27] MEDS: Potassium Chloride Oral Tablet 20 MEQ PO ×2 (09:52→16:41)
[2025-04-27] MEDS: Arthritis Pain Compound 60 CLICK TUBE TOPICAL ×2 (09:52→21:16)
--- NOTE | 2025-04-27 10:38 | NURSING ---
Offered covid vaccine, VIS provided. Resident declines.
--- NOTE | 2025-04-27 14:31 | CASEMGMT ---
Social Work SW completed BIMS () and PHQ-2 () for MDS assessment. Rachana Carrera PLASTIC [employer]S FABRICATOR JUNIOR MARKETING ASSOCIATE
--- NOTE | 2025-04-27 15:10 | NURSING ---
Addendum entered by Chanell Henderson 04/27/25 15:41: Call back from Allison in office, she reports the physician had not been consulted at [facility] and she has no notes/plan. She will send images to the [facility], RN will see if resident can follow-up with the [facility] physicians per her request. Left note for Dr. Nettles. Original Note: Per [facility] clincal review resident to follow-up with Dr. Jessica Carias for her wrist fx. Spoke with Adore who will have clinical staff call back about follow-up. Resident did say she doesn't want to go back to [facility] and had seen Dr. Gray previously.
[2025-04-27 16:00] VITALS: BP 140/68; PULSE 89; RESP 16; TEMP 36.2; O2SAT 98
--- NOTE | 2025-04-27 17:20 | RAD_ITS ---
PROCEDURE: WRIST 2 VIEWS 04/27/2025 REASON FOR EXAM: LEFT DISTAL RADIUS FRACTURE. TECHNIQUE: WRIST 2 VIEWS COMPARISON: None FINDINGS: Two views of the left wrist demonstrates casting material overlying the wrist which obscures the fine osseous details. No prior films are available for comparison. Diffuse osteopenia of the osseous structures of the left wrist are noted. There is an obliquely oriented minimally displaced fracture involving the mid diaphyseal region of the left 5th metacarpal bone. The distal fragment is displaced laterally by approximately 1 mm. The fracture does not involve the joint space. There is a fracture involving the proximal left radius. There is displacement of the distal fragment slightly laterally towards the radial side and volar aspect by a proximally 2 mm. The fracture does appear to involve the articular space however the fine osseous details are obscured by the casting material. Arthritic changes are seen involving the 1st metacarpal trapezium joint. RAD/Wrist 2 Views IMPRESSION: There is an obliquely oriented minimally displaced fracture involving the mid d iaphyseal region of the left 5th metacarpal bone. The distal fragment is displaced laterally by approximately 1 mm. The fracture does not involve the joint space. There is a fracture involving the proximal left radius. There is displacement of the distal fragment slightly laterally towards the radial side and volar aspect by a proximally 2 mm. The fracture does appear to involve the articular space however the fine osseous details are obscured by the casting material. Arthritic changes are seen involving the 1st metacarpal trapezium joint. Reading Location: [id number]
--- NOTE | 2025-04-27 21:11 | NURSING ---
Notified Dr. Nettles regarding results of x-ray of L wrist. Per Dr. Nettles, ortho consult is to be addressed by TCU charge nurse. No new orders at this time.
[2025-04-27] MEDS: Magnesium Chloride 64 MG Delay Rel.Tablet 128 MG PO (21:18)
[2025-04-28 06:04] LABS: Hematocrit 34.6 % (37-47); Hemoglobin 11.5 g/dL (12.0-15.0); Immature Granulocytes Count 0.170 X10^3/uL (0.0-0.0); Mean Corp Hgb Conc 33.2 g/dL (32-36); Mean Corpuscular Volume 94.5 fL (81-99); Mean Platelet Vol. 8.4 fl (6.2-12.0); NRBC Flagged by Analyzer 0 % (0-5); POSITIVE MORPHOLOGY YES; Platelet Count 217 K/mm3 (150-450); RBC Distribution Width CV 19.9 % (11.6-14.6); RBC Distribution Width SD 69.3 fl (35.1-43.9); Red Blood Count 3.66 M/mm3 (4.2-5.4); White Blood Count 7.1 K/mm3 (4.4-11.0)
[2025-04-28 06:06] LABS: Differential Indicated SCAN CRITERIA MET
[2025-04-28 06:41] LABS: Anion Gap 13 (5-15); BUN 23 mg/dL (4-19); BUN/Creat Ratio 35.2 RATIO (10-20); Calcium,Total 9.1 mg/dL (7.6-11.0); Carbon Dioxide 21.6 mmol/L (21.0-32.0); Chloride 100 mmol/L (98-108); Estimated Creatinine Clearance 50.20 ml/min (50-250); Glucose 95 mg/dL (70-99); Potassium 4.8 mmol/L (3.3-5.1)
[2025-04-28 06:50] LABS: Anisocytosis 2+
[2025-04-28 06:51] LABS: Acanthocytes RARE; Crenated RBC RARE; Schistocytes RARE; Tear Drop Cell RARE
[2025-04-28 08:18] VITALS: BP 161/82; PULSE 79; RESP 17; TEMP 36.5; O2SAT 98
[2025-04-28 08:23] VITALS: PULSE 79
[2025-04-28] MEDS: Arthritis Pain Compound 60 CLICK TUBE TOPICAL ×2 (08:23→21:15)
[2025-04-28] MEDS: Senna/Docusate Sodium 1 Tablet PO ×2 (08:23→21:16)
[2025-04-28] MEDS: Metoprolol(XL)Succ 25 MG Tablet PO (08:23)
[2025-04-28] MEDS: APIXABAN 2.5 MG TABLET (WCH) PO ×2 (08:23→21:15)
[2025-04-28] MEDS: Cholecalciferol (Vit D3) 125 MCG CAPSULE (5,000 UNITS) PO (08:23)
[2025-04-28] MEDS: Potassium Chloride Oral Tablet 20 MEQ PO ×2 (08:23→16:57)
[2025-04-28] MEDS: Tuberculin,Purif.prot.deriv. 50 TU/ML Vial 0.1 ML ID (12:24)
--- NOTE | 2025-04-28 12:38 | NURSING ---
Addendum entered by Chanell Henderson 04/29/25 15:02: Return call received, they can have resident come in on Sunday (05/01/25) at 1315 to see Cristy MUIR. Cot transport set up w/ Physicians with a pickup of 1215. Updated resident and daughter. Attempted to reach per resident request but phone just kept ringing. Original Note: Left VM with [facility] to see if they could follow for left wrist fracture. Await return call.
[2025-04-28 19:35] VITALS: PULSE 80; RESP 16; O2SAT 99
[2025-04-28] MEDS: Magnesium Chloride 64 MG Delay Rel.Tablet 128 MG PO (21:16)
--- NOTE | 2025-04-29 03:39 | NURSING ---
Written communication left for Dr. Nettles regarding pt's urine concerning for UTI. Urine dark, cloudy, has moderate amount of sediment, and a foul odor. Pt reports having bizarre dreams.
[2025-04-29 08:10] VITALS: BP 160/86; PULSE 89; RESP 17; TEMP 36.2; O2SAT 97
[2025-04-29] MEDS: Potassium Chloride Oral Tablet 20 MEQ PO ×2 (08:12→18:05)
[2025-04-29] MEDS: APIXABAN 2.5 MG TABLET (WCH) PO ×2 (08:12→21:05)
[2025-04-29 08:13] VITALS: PULSE 89
[2025-04-29] MEDS: Senna/Docusate Sodium 1 Tablet PO ×2 (08:13→21:06)
[2025-04-29] MEDS: Metoprolol(XL)Succ 25 MG Tablet PO (08:13)
[2025-04-29] MEDS: Cholecalciferol (Vit D3) 125 MCG CAPSULE (5,000 UNITS) PO (08:13)
[2025-04-29] MEDS: Arthritis Pain Compound 60 CLICK TUBE TOPICAL ×2 (08:14→21:02)
--- NOTE | 2025-04-29 08:57 | NURSING ---
shift commander reported to dr anderson that pt has dark urine & pt incont. & does not realize when voiding. new order for UA & culture. st cathed for cloudy yellow urine, creamy color in attends noted.
--- NOTE | 2025-04-29 09:05 | CASEMGMT ---
Social Work IDT met with patient, two sons, and dtr for care plan meeting. Discussed patient's progress in PT/OT/ST/SN/RDN. Educated to Medicare benefit. Provided pt/family with written communication of insurance process and copay coverage during stay. Pt has [place] J collar, limited UE motion, requires x2 assist currently. IDT discussed recommendation for SNF at DC for ongoing therapy. Pt agreed she cannot return home at this LOC. SW educated to SNF option with Medicaid or OOP cost and offered to provide list of SNF options. Pt agreed. SW provided list of SNFs in preferred geographical area, INN with pt?s insurance, including quality and resource data via [employer] Guide. Team will continue working with pt and SW will continue to follow for DC planning. Rachana Carrera MSW TRACTOR TECHNICIAN
[2025-04-29 09:10] LABS: Mucous, Urine 0 SEEN /hpf (<or=2+); Squamous Epithelial Cells - UA 0 SEEN /hpf (5-10)
[2025-04-29 09:15] LABS: Color, Urine Yellow (Yellow); Glucose, Dipstick Normal (Normal); Ketone-Dipstick Negative (Negative); Leukocyte Esterase-Dipstick 500 /ul (Negative); Nitrite-Dipstick Negative (Negative); Occult Blood-Urine 50 /ul (Negative); Protein-Dipstick 100 mg/dl (Negative); Specific Gravity, Urine 1.010 (1.002-1.030); Urine Bilirubin Dipstick Negative (Negative)
[2025-04-29 09:22] LABS: Red Blood Cells-Urine 5-10 SEEN /hpf (0-5)
--- NOTE | 2025-04-29 11:00 | NURSING ---
dr anderson notified of urine results, new order cipro x7 days. pt updated.
--- NOTE | 2025-04-29 11:48 | MDS.RN ---
Information for the MDS was obtained from review of the clinical record, interview of resident, staff, and direct observation of resident?s care.
[2025-04-29 13:02] VITALS: PULSE 104; RESP 16; O2SAT 99
[2025-04-29] MEDS: Magnesium Chloride 64 MG Delay Rel.Tablet 128 MG PO (21:06)
[2025-04-30 09:16] VITALS: BP 142/78; PULSE 89; RESP 18; TEMP 37.1; O2SAT 97
[2025-04-30 09:18] VITALS: PULSE 89
[2025-04-30] MEDS: Senna/Docusate Sodium 1 Tablet PO ×2 (09:18→22:03)
[2025-04-30] MEDS: Arthritis Pain Compound 60 CLICK TUBE TOPICAL ×2 (09:18→22:01)
[2025-04-30] MEDS: Metoprolol(XL)Succ 25 MG Tablet PO (09:18)
[2025-04-30] MEDS: Cholecalciferol (Vit D3) 125 MCG CAPSULE (5,000 UNITS) PO (09:18)
[2025-04-30] MEDS: APIXABAN 2.5 MG TABLET (WCH) PO ×2 (09:18→22:02)
[2025-04-30] MEDS: Potassium Chloride Oral Tablet 20 MEQ PO ×2 (09:18→16:03)
--- NOTE | 2025-04-30 09:26 | NURSING ---
Pt. refused pneumonia vaccine, order discontinued.
[2025-04-30 22:00] VITALS: PULSE 93; RESP 16
[2025-04-30] MEDS: Magnesium Chloride 64 MG Delay Rel.Tablet 128 MG PO (22:01)
[2025-05-01 04:38] VITALS: PULSE 80; RESP 15; O2SAT 99
[2025-05-01] MEDS: Potassium Chloride Oral Tablet 20 MEQ PO ×2 (08:46→17:21)
[2025-05-01 08:49] VITALS: BP 168/73; PULSE 80
[2025-05-01] MEDS: Metoprolol(XL)Succ 25 MG Tablet PO (08:49)
[2025-05-01] MEDS: APIXABAN 2.5 MG TABLET (WCH) PO ×2 (08:49→20:46)
[2025-05-01] MEDS: Cholecalciferol (Vit D3) 125 MCG CAPSULE (5,000 UNITS) PO (08:49)
[2025-05-01] MEDS: Senna/Docusate Sodium 1 Tablet PO ×2 (08:50→20:47)
[2025-05-01] MEDS: Arthritis Pain Compound 60 CLICK TUBE TOPICAL ×2 (08:51→20:43)
[2025-05-01 10:29] VITALS: BP 158/73; PULSE 80; RESP 18; TEMP 36.8; O2SAT 94
--- NOTE | 2025-05-01 12:23 | NURSING ---
Patient off unit for doctor's visit
--- NOTE | 2025-05-01 13:34 | CASEMGMT ---
Social Work SW received call from dtr, Tabby, inquiring further about Medicare benefit, copays, secondary insurance, and if pt needed another SNF, [facility] would be first choice. SW referenced written insurance communication provided to dtr at POC from this worker to help answer dtr's questions. SW reiterated that information. Discussed skilled vs nonskilled care, the MC coverage associated, and [facility] would be OOP or [facility]CDP. SW explained advanced notice will be provided to pt/dtr with DC date once MC criteria for skilled care is no longer met. This worker will assist with navigating DC plans. Dtr satisfied with answers. SW will continue to follow for DC planning. Rachana Carrera MSW LITHOGRAPH PRESS OPERATOR TINWARE
--- NOTE | 2025-05-01 14:30 | NURSING ---
Addendum entered by Karol Bee 05/01/25 18:19: states [facility] called him to set up F/U appt and he set it for 05/14/25. Xrays to left wrist ordered for that AM. Original Note: Return from [facility] with new orders to apply ice PRN to wrist and still no use to left arm. F/U in 1-2 weeks. Patient needs xrays to left wrist prior to appt.
[2025-05-01] MEDS: Magnesium Chloride 64 MG Delay Rel.Tablet 128 MG PO (20:47)
[2025-05-02] MEDS: Arthritis Pain Compound 60 CLICK TUBE TOPICAL (07:59)
[2025-05-02] MEDS: Potassium Chloride Oral Tablet 20 MEQ PO ×2 (07:59→17:02)
[2025-05-02 08:00] VITALS: BP 174/77; PULSE 80
[2025-05-02] MEDS: APIXABAN 2.5 MG TABLET (WCH) PO ×2 (08:00→21:09)
[2025-05-02] MEDS: Metoprolol(XL)Succ 25 MG Tablet PO (08:00)
[2025-05-02] MEDS: Senna/Docusate Sodium 1 Tablet PO ×2 (08:00→21:09)
[2025-05-02] MEDS: Cholecalciferol (Vit D3) 125 MCG CAPSULE (5,000 UNITS) PO (08:01)
[2025-05-02 10:00] VITALS: BP 174/77; PULSE 80; RESP 18; TEMP 36.5; O2SAT 98
--- NOTE | 2025-05-02 19:10 | NURSING ---
New order for Losartan for elevated BP. Patient aware.
[2025-05-02 19:55] VITALS: PULSE 82; RESP 16; O2SAT 100
[2025-05-02] MEDS: Magnesium Chloride 64 MG Delay Rel.Tablet 128 MG PO (21:09)
[2025-05-02] MEDS: MELATONIN 3 MG TABLET PO (21:09)
[2025-05-03] MEDS: Arthritis Pain Compound 60 CLICK TUBE TOPICAL ×2 (08:53→21:53)
[2025-05-03] MEDS: Cholecalciferol (Vit D3) 125 MCG CAPSULE (5,000 UNITS) PO (08:55)
[2025-05-03] MEDS: Senna/Docusate Sodium 1 Tablet PO ×2 (08:55→21:54)
[2025-05-03] MEDS: APIXABAN 2.5 MG TABLET (WCH) PO ×2 (08:55→21:54)
[2025-05-03 08:56] VITALS: PULSE 78
[2025-05-03] MEDS: Potassium Chloride Oral Tablet 20 MEQ PO ×2 (08:56→16:17)
[2025-05-03] MEDS: Metoprolol(XL)Succ 25 MG Tablet PO (08:56)
[2025-05-03 10:59] VITALS: BP 165/70; PULSE 78; RESP 17; TEMP 35.9; O2SAT 100
--- NOTE | 2025-05-03 14:27 | NURSING ---
pt called out to use BSC, pt assisted to BSC x2 assist with much encouragement to use her RT arm to push up off bed to standing position & then place cast on platform walker. pt stood with x2 stand pivot BSC. BSC was placed right up against bed. pt sat on BSC for 15 seconds and said she was done. This nurse encouraged pt to sit a little longer since she stated she needed to have a BM. left pt sitting on commode, call light in reach & daughter waiting outside room. This nurse observed daughter running into room so this nurse and aid followed. pt had yelled out, entered room and pt sitting on BSC leaning onto mattress of bed. pt assisted to standing position, pt able to use RT hand and arm to push herself to standing position. pt had small soft stool, wiped pt buttocks & noted pt not finished having BM. Then pt stated I need to sit back down pt assisted back onto BSC. pt then stated she was finished, pt stood back up with min assist, pt pericare provided. clean attends placed on pt. Encouraged pt to sit in recliner chair today, pt refused. I just want to lay down pt would ask staff about making sure we had wipes and that her shoes need removed. pt would not give staff a chance to finish one task before requesting something else to be done. pt getting ahead of staff and herself, wanting things done immediately. pt resting in bed, soft touch call light on chest.
--- NOTE | 2025-05-03 18:22 | NURSING ---
built up utensils given to pt for supper meal, this nurse assisted pt with bringing food to mouth. pt excited about being able to feed self, but still needs assistance d/t coordination issues with rt hand.
[2025-05-03 20:00] VITALS: PULSE 76; RESP 18; O2SAT 97
[2025-05-03] MEDS: Magnesium Chloride 64 MG Delay Rel.Tablet 128 MG PO (21:54)
[2025-05-03] MEDS: MELATONIN 3 MG TABLET PO (21:55)
[2025-05-04] MEDS: Arthritis Pain Compound 60 CLICK TUBE TOPICAL ×2 (08:28→20:58)
[2025-05-04] MEDS: APIXABAN 2.5 MG TABLET (WCH) PO ×2 (08:29→21:00)
[2025-05-04] MEDS: Potassium Chloride Oral Tablet 20 MEQ PO ×2 (08:29→17:37)
[2025-05-04 08:31] VITALS: PULSE 83
[2025-05-04] MEDS: Metoprolol(XL)Succ 25 MG Tablet PO (08:31)
[2025-05-04] MEDS: Cholecalciferol (Vit D3) 125 MCG CAPSULE (5,000 UNITS) PO (08:31)
[2025-05-04] MEDS: Senna/Docusate Sodium 1 Tablet PO ×2 (08:32→21:01)
[2025-05-04 13:27] VITALS: BP 160/75; PULSE 83; RESP 16; TEMP 36.5; O2SAT 100
--- NOTE | 2025-05-04 14:50 | NURSING ---
Addendum entered by Gladys Owens 05/04/25 16:20: Jessica from [facility] returned called. Pt does not need f\u appt this week. Next appt has been made for Jul 09 @ 11:30, pt aware Original Note: Called [facility] [phone] asking update for 05/07 appt with Abebe Meredith CNP. Finishing And Shipping Supervisor sent message to Neuro team asking them to f/u with TCU as to how pertinent this appt is so we can set up cot transportation.
[2025-05-04] MEDS: Magnesium Chloride 64 MG Delay Rel.Tablet 128 MG PO (21:00)
[2025-05-04 23:31] VITALS: PULSE 82; RESP 16
[2025-05-05 05:59] LABS: Hematocrit 35.7 % (37-47); Hemoglobin 11.6 g/dL (12.0-15.0); Immature Granulocytes Count 0.240 X10^3/uL (0.0-0.0); Mean Corp Hgb Conc 32.5 g/dL (32-36); Mean Corpuscular Volume 97.0 fL (81-99); Mean Platelet Vol. 8.1 fl (6.2-12.0); NRBC Flagged by Analyzer 0 % (0-5); POSITIVE MORPHOLOGY YES; Platelet Count 219 K/mm3 (150-450); RBC Distribution Width CV 19.9 % (11.6-14.6); RBC Distribution Width SD 71.4 fl (35.1-43.9); Red Blood Count 3.68 M/mm3 (4.2-5.4); White Blood Count 5.8 K/mm3 (4.4-11.0)
[2025-05-05 06:08] LABS: Differential Indicated SCAN CRITERIA MET
[2025-05-05 06:18] LABS: Anion Gap 9 (5-15); BUN 27 mg/dL (4-19); BUN/Creat Ratio 54.7 RATIO (10-20); Calcium,Total 9.1 mg/dL (7.6-11.0); Carbon Dioxide 24.1 mmol/L (21.0-32.0); Chloride 103 mmol/L (98-108); Estimated Creatinine Clearance 50.20 ml/min (50-250); Glucose 91 mg/dL (70-99); Potassium 4.9 mmol/L (3.3-5.1)
[2025-05-05 06:42] VITALS: PULSE 80; RESP 15; O2SAT 96
[2025-05-05 06:47] LABS: Anisocytosis 3+; Differential Comment SCANNED; Hypochromasia 1+; Macrocytosis 1+; Microcytosis 1+
[2025-05-05 06:48] LABS: Acanthocytes RARE; Bite Cell RARE; Schistocytes RARE; Tear Drop Cell RARE
[2025-05-05 09:00] VITALS: BMI 32.2
[2025-05-05] MEDS: Arthritis Pain Compound 60 CLICK TUBE TOPICAL ×2 (10:13→22:07)
[2025-05-05 10:15] VITALS: BP 154/75; PULSE 101
[2025-05-05] MEDS: Metoprolol(XL)Succ 25 MG Tablet PO (10:15)
[2025-05-05] MEDS: APIXABAN 2.5 MG TABLET (WCH) PO ×2 (10:16→22:08)
[2025-05-05] MEDS: Cholecalciferol (Vit D3) 125 MCG CAPSULE (5,000 UNITS) PO (10:16)
[2025-05-05] MEDS: Potassium Chloride Oral Tablet 20 MEQ PO ×2 (10:17→16:54)
[2025-05-05 10:26] VITALS: BP 154/75; PULSE 101; RESP 18; TEMP 36.2; O2SAT 96
[2025-05-05 14:17] VITALS: BMI 32.2
[2025-05-05] MEDS: Magnesium Chloride 64 MG Delay Rel.Tablet 128 MG PO (22:09)
[2025-05-05] MEDS: Senna/Docusate Sodium 1 Tablet PO (22:10)
[2025-05-06 07:33] VITALS: BP 153/70; PULSE 78; RESP 16; TEMP 36.1; O2SAT 100
[2025-05-06] MEDS: Senna/Docusate Sodium 1 Tablet PO ×2 (07:35→21:42)
[2025-05-06] MEDS: Cholecalciferol (Vit D3) 125 MCG CAPSULE (5,000 UNITS) PO (07:35)
[2025-05-06] MEDS: APIXABAN 2.5 MG TABLET (WCH) PO ×2 (07:35→21:41)
[2025-05-06] MEDS: Potassium Chloride Oral Tablet 20 MEQ PO ×2 (07:35→17:01)
[2025-05-06 07:36] VITALS: PULSE 78
[2025-05-06] MEDS: Arthritis Pain Compound 60 CLICK TUBE TOPICAL ×2 (07:36→21:41)
[2025-05-06] MEDS: Metoprolol(XL)Succ 25 MG Tablet PO (07:36)
[2025-05-06 21:37] VITALS: PULSE 85; RESP 16; O2SAT 98
[2025-05-06] MEDS: Magnesium Chloride 64 MG Delay Rel.Tablet 128 MG PO (21:42)
[2025-05-07 08:37] VITALS: BP 158/66; PULSE 98; RESP 18; TEMP 36; O2SAT 95
[2025-05-07 08:40] VITALS: PULSE 98
[2025-05-07] MEDS: Potassium Chloride Oral Tablet 20 MEQ PO ×2 (08:40→16:43)
[2025-05-07] MEDS: Metoprolol(XL)Succ 25 MG Tablet PO (08:40)
[2025-05-07] MEDS: Cholecalciferol (Vit D3) 125 MCG CAPSULE (5,000 UNITS) PO (08:41)
[2025-05-07] MEDS: APIXABAN 2.5 MG TABLET (WCH) PO ×2 (08:42→21:34)
[2025-05-07] MEDS: Arthritis Pain Compound 60 CLICK TUBE TOPICAL ×2 (08:42→21:33)
--- NOTE | 2025-05-07 10:28 | CASEMGMT ---
Social Work SW completed BIMS () and PHQ-2 () for MDS assessment. Rachana Carrera SHELL TRIM OPERATOR CHECKER/STOCKER
[2025-05-07] MEDS: Senna/Docusate Sodium 1 Tablet PO (21:34)
[2025-05-07] MEDS: Magnesium Chloride 64 MG Delay Rel.Tablet 128 MG PO (21:34)
[2025-05-08 10:00] VITALS: BP 180/85; PULSE 64; RESP 18; TEMP 36.3; O2SAT 64
[2025-05-08] MEDS: Potassium Chloride Oral Tablet 20 MEQ PO ×2 (10:14→16:20)
[2025-05-08] MEDS: Arthritis Pain Compound 60 CLICK TUBE TOPICAL ×2 (10:15→21:24)
[2025-05-08] MEDS: Cholecalciferol (Vit D3) 125 MCG CAPSULE (5,000 UNITS) PO (10:16)
[2025-05-08] MEDS: APIXABAN 2.5 MG TABLET (WCH) PO ×2 (10:16→21:25)
[2025-05-08 10:20] VITALS: BP 180/85; PULSE 64
[2025-05-08] MEDS: Metoprolol(XL)Succ 25 MG Tablet PO (10:20)
[2025-05-08] MEDS: Senna/Docusate Sodium 1 Tablet PO (21:26)
[2025-05-08] MEDS: Magnesium Chloride 64 MG Delay Rel.Tablet 128 MG PO (21:26)
[2025-05-09] MEDS: APIXABAN 2.5 MG TABLET (WCH) PO ×2 (09:38→22:46)
[2025-05-09] MEDS: Potassium Chloride Oral Tablet 20 MEQ PO ×2 (09:39→16:48)
[2025-05-09] MEDS: Cholecalciferol (Vit D3) 125 MCG CAPSULE (5,000 UNITS) PO (09:39)
[2025-05-09 09:41] VITALS: PULSE 72
[2025-05-09] MEDS: Metoprolol(XL)Succ 25 MG Tablet PO (09:41)
[2025-05-09] MEDS: Arthritis Pain Compound 60 CLICK TUBE TOPICAL ×2 (09:42→22:46)
[2025-05-09 16:00] VITALS: BP 140/59; PULSE 76; RESP 16; TEMP 36.9; O2SAT 98
[2025-05-09] MEDS: Magnesium Chloride 64 MG Delay Rel.Tablet 128 MG PO (22:47)
[2025-05-09] MEDS: Senna/Docusate Sodium 1 Tablet PO (22:47)
[2025-05-10 10:12] VITALS: BP 142/65; PULSE 85; RESP 18; TEMP 36.9; O2SAT 100
[2025-05-10] MEDS: Potassium Chloride Oral Tablet 20 MEQ PO ×2 (10:13→18:22)
[2025-05-10] MEDS: APIXABAN 2.5 MG TABLET (WCH) PO ×2 (10:14→20:37)
[2025-05-10] MEDS: Arthritis Pain Compound 60 CLICK TUBE TOPICAL ×2 (10:14→20:37)
[2025-05-10 10:15] VITALS: BP 142/65; PULSE 85
[2025-05-10] MEDS: Senna/Docusate Sodium 1 Tablet PO ×2 (10:15→20:37)
[2025-05-10] MEDS: Metoprolol(XL)Succ 25 MG Tablet PO (10:15)
[2025-05-10] MEDS: Cholecalciferol (Vit D3) 125 MCG CAPSULE (5,000 UNITS) PO (10:16)
[2025-05-10] MEDS: Magnesium Chloride 64 MG Delay Rel.Tablet 128 MG PO (20:37)
[2025-05-11] MEDS: Potassium Chloride Oral Tablet 20 MEQ PO ×2 (08:22→18:01)
[2025-05-11] MEDS: Arthritis Pain Compound 60 CLICK TUBE TOPICAL ×2 (08:23→20:40)
[2025-05-11] MEDS: APIXABAN 2.5 MG TABLET (WCH) PO ×2 (08:23→20:40)
[2025-05-11 08:24] VITALS: BP 131/63; PULSE 98
[2025-05-11] MEDS: Senna/Docusate Sodium 1 Tablet PO ×2 (08:24→20:42)
[2025-05-11] MEDS: Metoprolol(XL)Succ 25 MG Tablet PO (08:24)
[2025-05-11] MEDS: Cholecalciferol (Vit D3) 125 MCG CAPSULE (5,000 UNITS) PO (08:24)
--- NOTE | 2025-05-11 09:58 | NURSING ---
Talked with resident about ortho f/u. She is mobilizing better and feels fine about going in a WC. Set up [facility] p/u for 1:45 on 05/14/25, she will have her call and pay when he comes later today.
[2025-05-11 10:00] VITALS: BP 131/63; PULSE 87; RESP 16; TEMP 36.3; O2SAT 98
[2025-05-11] MEDS: Magnesium Chloride 64 MG Delay Rel.Tablet 128 MG PO (20:40)
[2025-05-12 07:16] LABS: Hematocrit 34.0 % (37-47); Hemoglobin 11.2 g/dL (12.0-15.0); Immature Granulocytes Count 0.040 X10^3/uL (0.0-0.0); Mean Corp Hgb Conc 32.9 g/dL (32-36); Mean Corpuscular Volume 97.7 fL (81-99); Mean Platelet Vol. 8.3 fl (6.2-12.0); NRBC Flagged by Analyzer 0 % (0-5); POSITIVE MORPHOLOGY YES; Platelet Count 192 K/mm3 (150-450); RBC Distribution Width CV 20.9 % (11.6-14.6); RBC Distribution Width SD 73.4 fl (35.1-43.9); Red Blood Count 3.48 M/mm3 (4.2-5.4); White Blood Count 8.3 K/mm3 (4.4-11.0)
[2025-05-12 07:17] LABS: Differential Indicated SCAN CRITERIA MET
[2025-05-12 07:43] LABS: Anion Gap 10 (5-15); BUN 24 mg/dL (4-19); BUN/Creat Ratio 45.2 RATIO (10-20); Calcium,Total 9.0 mg/dL (7.6-11.0); Carbon Dioxide 20.9 mmol/L (21.0-32.0); Chloride 106 mmol/L (98-108); Estimated Creatinine Clearance 49.71 ml/min (50-250); Glucose 99 mg/dL (70-99); Potassium 4.4 mmol/L (3.3-5.1)
[2025-05-12 07:59] VITALS: BP 141/70; PULSE 91; RESP 18; TEMP 36.7; O2SAT 95
[2025-05-12] MEDS: Senna/Docusate Sodium 1 Tablet PO ×2 (08:02→22:32)
[2025-05-12] MEDS: Potassium Chloride Oral Tablet 20 MEQ PO ×2 (08:02→18:01)
[2025-05-12] MEDS: Cholecalciferol (Vit D3) 125 MCG CAPSULE (5,000 UNITS) PO (08:02)
[2025-05-12 08:03] VITALS: PULSE 91
[2025-05-12] MEDS: Metoprolol(XL)Succ 25 MG Tablet PO (08:03)
[2025-05-12] MEDS: APIXABAN 2.5 MG TABLET (WCH) PO ×2 (08:03→22:30)
[2025-05-12] MEDS: Arthritis Pain Compound 60 CLICK TUBE TOPICAL ×2 (08:03→22:29)
[2025-05-12 08:16] LABS: Anisocytosis 2+; Macrocytosis 1+
[2025-05-12 14:00] VITALS: BMI 31.8
--- NOTE | 2025-05-12 17:35 | RAD_ITS ---
PROCEDURE: ABDOMEN SINGLE VIEW 05/12/2025 REASON FOR EXAM: EMESIS X 3. TECHNIQUE: ABDOMEN SINGLE VIEW COMPARISON: Abdominal CT 04/08/2025 FINDINGS: Nonobstructive bowel gas pattern. No discernible free air. Gas throughout the colon with probable fecal load within the rectal vault. Hyperdense compact stool foci along the distal colon which may be impacted or within advanced diverticulosis. Cholecystectomy surgical clips. Degenerative changes of the spine. Qualitative osteopenia. RAD/Abdomen Single View IMPRESSION: Nonobstructive bowel gas pattern. Advanced colonic diverticulosis with dense impacted stool. Reading Location: [id number]
[2025-05-12 19:13] LABS: Color, Urine Yellow (Yellow); Glucose, Dipstick Normal (Normal); Ketone-Dipstick Negative (Negative); Leukocyte Esterase-Dipstick 500 /ul (Negative); Mucous, Urine 0 SEEN /hpf (<or=2+); Nitrite-Dipstick Positive (Negative); Occult Blood-Urine 25 /ul (Negative); Protein-Dipstick 30 mg/dl (Negative); Specific Gravity, Urine 1.020 (1.002-1.030); Urine Bilirubin Dipstick Negative (Negative)
--- NOTE | 2025-05-12 20:03 | NURSING ---
Presents in bed. Pleasant and talkative.A&Ox4 to person/place/time/situation.Patient denies n/v/d this date. Denies dysuria, reports urine and bowel incontinence. Purewik use at HS. Patient states she experienced emesis a couple days ago during therapy but that is nothing new and I have been fine since then. Patient states I had a bunch of tests about 5 years ago when I was having nausea and wasn't able to eat much and I have nausea ever since then on and off, I feel fine patient continues it's nothing new. Patient states has not had any emesis this date and does does not have any current N/V/D. Denies gastric distress, no stomach pain. Patient reports last BM this morning. No distress observed or reported. Denies requests at this time. Call light and personal items within reach. Bed in lowest position.
[2025-05-12 20:09] LABS: Red Blood Cells-Urine 5-10 SEEN /hpf (0-5)
[2025-05-12 20:10] LABS: Squamous Epithelial Cells - UA 0-5 SEEN /hpf (5-10); Transitional Epithelial - Ur 0-5 SEEN /hpf (0-5)
--- NOTE | 2025-05-12 20:51 | NURSING ---
This nurse contacted Dr. Nettles via telephone to update him on the results of the patient's KUB and urinalysis. The KUB results showed hyperdense compact stool foci along the distal colon which may be impacted or within advanced diverticulosis. Dr. Nettles ordered a soaps suds enema at this time. The patient's culture & sensitivity are still pending, but her urinalysis came back positive for nitrites and showed protein and leukocytes in her urine. Dr. Nettles ordered cefdinir 300mg BID for 7 days. Discussed patient report of no nausea, vomiting, or constipation at this time as well as no acute symptoms of a UTI, but that patient did report having an episode of emesis a few days ago during therapy. Orders repeated back and verified.
[2025-05-12] MEDS: Magnesium Chloride 64 MG Delay Rel.Tablet 128 MG PO (22:31)
[2025-05-13 06:01] VITALS: PULSE 64; RESP 15; O2SAT 95
[2025-05-13 07:48] VITALS: BP 173/85; PULSE 78; RESP 18; TEMP 36.6; O2SAT 100
[2025-05-13] MEDS: Potassium Chloride Oral Tablet 20 MEQ PO ×2 (07:51→17:40)
[2025-05-13] MEDS: APIXABAN 2.5 MG TABLET (WCH) PO ×2 (07:52→20:43)
[2025-05-13] MEDS: Arthritis Pain Compound 60 CLICK TUBE TOPICAL ×2 (07:52→20:42)
[2025-05-13 07:53] VITALS: BP 173/85; PULSE 78
[2025-05-13] MEDS: Senna/Docusate Sodium 1 Tablet PO ×2 (07:53→20:45)
[2025-05-13] MEDS: Cholecalciferol (Vit D3) 125 MCG CAPSULE (5,000 UNITS) PO (07:53)
[2025-05-13] MEDS: Metoprolol(XL)Succ 25 MG Tablet PO (07:53)
[2025-05-13] MEDS: Psyllium 1 PACKET PO (08:20)
[2025-05-13] MEDS: Magnesium Chloride 64 MG Delay Rel.Tablet 128 MG PO (20:44)
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
[2025-05-14] MEDS: Psyllium 1 PACKET PO (08:29)
[2025-05-14] MEDS: Potassium Chloride Oral Tablet 20 MEQ PO ×2 (08:31→16:29)
[2025-05-14] MEDS: Arthritis Pain Compound 60 CLICK TUBE TOPICAL ×2 (08:31→20:39)
[2025-05-14] MEDS: APIXABAN 2.5 MG TABLET (WCH) PO ×2 (08:32→20:40)
[2025-05-14] MEDS: Senna/Docusate Sodium 1 Tablet PO ×2 (08:33→20:39)
[2025-05-14] MEDS: Cholecalciferol (Vit D3) 125 MCG CAPSULE (5,000 UNITS) PO (08:33)
[2025-05-14 08:36] VITALS: BP 153/81; PULSE 89
[2025-05-14] MEDS: Metoprolol(XL)Succ 25 MG Tablet PO (08:36)
[2025-05-14 10:00] VITALS: PULSE 89; RESP 17; O2SAT 100
--- NOTE | 2025-05-14 14:26 | NURSING ---
patient left floor at 1345 for ortho appointment
--- NOTE | 2025-05-14 16:22 | NURSING ---
Addendum entered by Chanell Henderson 05/15/25 09:09: Hard cast applied to arm. To continue NWB x4 weeks. Original Note: pt returned to unit
[2025-05-14] MEDS: Magnesium Chloride 64 MG Delay Rel.Tablet 128 MG PO (20:39)
[2025-05-15] MEDS: Arthritis Pain Compound 60 CLICK TUBE TOPICAL ×2 (08:48→20:31)
[2025-05-15] MEDS: Potassium Chloride Oral Tablet 20 MEQ PO ×2 (08:48→16:51)
[2025-05-15 08:49] VITALS: BP 156/71; PULSE 89
[2025-05-15] MEDS: Metoprolol(XL)Succ 25 MG Tablet PO (08:49)
[2025-05-15] MEDS: Senna/Docusate Sodium 1 Tablet PO ×2 (08:49→20:35)
[2025-05-15] MEDS: APIXABAN 2.5 MG TABLET (WCH) PO ×2 (08:49→20:33)
[2025-05-15] MEDS: Cholecalciferol (Vit D3) 125 MCG CAPSULE (5,000 UNITS) PO (08:50)
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
[2025-05-15 10:00] VITALS: BP 156/71; PULSE 89; RESP 18; TEMP 36.7; O2SAT 100
[2025-05-15] MEDS: Magnesium Chloride 64 MG Delay Rel.Tablet 128 MG PO (20:34)
[2025-05-15] MEDS: MELATONIN 3 MG TABLET PO (20:42)
[2025-05-15 20:45] VITALS: PULSE 85; RESP 18; O2SAT 98
--- NOTE | 2025-05-15 20:45 | NURSING ---
Patient requested HS medications at 2029. Administered medications at this time per pt request
[2025-05-16 08:43] VITALS: BP 145/65; PULSE 77; RESP 16; TEMP 36.3; O2SAT 100
[2025-05-16] MEDS: Potassium Chloride Oral Tablet 20 MEQ PO ×2 (08:44→17:46)
[2025-05-16] MEDS: Arthritis Pain Compound 60 CLICK TUBE TOPICAL ×2 (08:45→21:18)
[2025-05-16] MEDS: APIXABAN 2.5 MG TABLET (WCH) PO ×2 (08:45→21:20)
[2025-05-16 08:46] VITALS: PULSE 77
[2025-05-16] MEDS: Cholecalciferol (Vit D3) 125 MCG CAPSULE (5,000 UNITS) PO (08:46)
[2025-05-16] MEDS: Senna/Docusate Sodium 1 Tablet PO ×2 (08:46→21:23)
[2025-05-16] MEDS: Metoprolol(XL)Succ 25 MG Tablet PO (08:46)
[2025-05-16] MEDS: Magnesium Chloride 64 MG Delay Rel.Tablet 128 MG PO (21:22)
[2025-05-17 09:08] VITALS: BP 125/63; PULSE 97; RESP 16; TEMP 37; O2SAT 98
[2025-05-17] MEDS: Potassium Chloride Oral Tablet 20 MEQ PO ×2 (09:09→18:34)
[2025-05-17] MEDS: APIXABAN 2.5 MG TABLET (WCH) PO ×2 (09:10→20:29)
[2025-05-17] MEDS: Arthritis Pain Compound 60 CLICK TUBE TOPICAL ×2 (09:10→20:29)
[2025-05-17 09:11] VITALS: PULSE 97
[2025-05-17] MEDS: Senna/Docusate Sodium 1 Tablet PO ×2 (09:11→20:30)
[2025-05-17] MEDS: Metoprolol(XL)Succ 25 MG Tablet PO (09:11)
[2025-05-17] MEDS: Cholecalciferol (Vit D3) 125 MCG CAPSULE (5,000 UNITS) PO (09:11)
[2025-05-17] MEDS: Magnesium Chloride 64 MG Delay Rel.Tablet 128 MG PO (20:29)
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
[2025-05-18] MEDS: Potassium Chloride Oral Tablet 20 MEQ PO ×2 (08:38→18:10)
[2025-05-18] MEDS: Arthritis Pain Compound 60 CLICK TUBE TOPICAL ×2 (08:38→20:41)
[2025-05-18] MEDS: APIXABAN 2.5 MG TABLET (WCH) PO ×2 (08:39→20:46)
[2025-05-18 08:40] VITALS: BP 135/69; PULSE 98
[2025-05-18] MEDS: Senna/Docusate Sodium 1 Tablet PO ×2 (08:40→20:47)
[2025-05-18] MEDS: Metoprolol(XL)Succ 25 MG Tablet PO (08:40)
[2025-05-18] MEDS: Cholecalciferol (Vit D3) 125 MCG CAPSULE (5,000 UNITS) PO (08:41)
[2025-05-18 15:45] VITALS: BP 120/67; PULSE 80; RESP 16; TEMP 37; O2SAT 99
[2025-05-18] MEDS: Magnesium Chloride 64 MG Delay Rel.Tablet 128 MG PO (20:46)
[2025-05-19 06:05] LABS: Hematocrit 36.2 % (37-47); Hemoglobin 11.6 g/dL (12.0-15.0); Immature Granulocytes Count 0.070 X10^3/uL (0.0-0.0); Mean Corp Hgb Conc 32.0 g/dL (32-36); Mean Corpuscular Volume 99.5 fL (81-99); Mean Platelet Vol. 8.3 fl (6.2-12.0); NRBC Flagged by Analyzer 0 % (0-5); POSITIVE MORPHOLOGY YES; Platelet Count 164 K/mm3 (150-450); RBC Distribution Width CV 20.4 % (11.6-14.6); RBC Distribution Width SD 74.1 fl (35.1-43.9); Red Blood Count 3.64 M/mm3 (4.2-5.4); White Blood Count 4.7 K/mm3 (4.4-11.0)
[2025-05-19 06:09] LABS: Differential Indicated SCAN CRITERIA MET
[2025-05-19 06:37] LABS: Anion Gap 10 (5-15); BUN 21 mg/dL (4-19); BUN/Creat Ratio 39.7 RATIO (10-20); Calcium,Total 9.3 mg/dL (7.6-11.0); Carbon Dioxide 20.7 mmol/L (21.0-32.0); Chloride 107 mmol/L (98-108); Estimated Creatinine Clearance 49.49 ml/min (50-250); Glucose 83 mg/dL (70-99); Potassium 4.4 mmol/L (3.3-5.1)
[2025-05-19 07:46] LABS: Anisocytosis 1+
[2025-05-19 08:47] VITALS: BP 140/69; PULSE 81; RESP 16; TEMP 36.1; O2SAT 100
[2025-05-19] MEDS: Potassium Chloride Oral Tablet 20 MEQ PO ×2 (08:50→16:19)
[2025-05-19 08:51] VITALS: PULSE 81
[2025-05-19] MEDS: APIXABAN 2.5 MG TABLET (WCH) PO ×2 (08:51→20:45)
[2025-05-19] MEDS: Cholecalciferol (Vit D3) 125 MCG CAPSULE (5,000 UNITS) PO (08:51)
[2025-05-19] MEDS: Metoprolol(XL)Succ 25 MG Tablet PO (08:51)
[2025-05-19] MEDS: Senna/Docusate Sodium 1 Tablet PO ×2 (08:51→20:46)
[2025-05-19] MEDS: Arthritis Pain Compound 60 CLICK TUBE TOPICAL ×2 (11:31→20:41)
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
[2025-05-19] MEDS: Magnesium Chloride 64 MG Delay Rel.Tablet 128 MG PO (20:46)
[2025-05-20] MEDS: APIXABAN 2.5 MG TABLET (WCH) PO ×2 (08:29→21:18)
[2025-05-20] MEDS: Potassium Chloride Oral Tablet 20 MEQ PO ×2 (08:29→16:18)
[2025-05-20 08:30] VITALS: PULSE 88
[2025-05-20] MEDS: Metoprolol(XL)Succ 25 MG Tablet PO (08:30)
[2025-05-20] MEDS: Senna/Docusate Sodium 1 Tablet PO (08:30)
[2025-05-20] MEDS: Cholecalciferol (Vit D3) 125 MCG CAPSULE (5,000 UNITS) PO (08:31)
[2025-05-20] MEDS: Psyllium 1 PACKET PO (12:59)
[2025-05-20] MEDS: Arthritis Pain Compound 60 CLICK TUBE TOPICAL ×2 (13:00→21:18)
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
[2025-05-20 16:50] VITALS: BP 157/85; PULSE 82; TEMP 36.9; O2SAT 98
[2025-05-20] MEDS: Magnesium Chloride 64 MG Delay Rel.Tablet 128 MG PO (21:19)
[2025-05-20] MEDS: MELATONIN 3 MG TABLET PO (21:20)
[2025-05-21] MEDS: Arthritis Pain Compound 60 CLICK TUBE TOPICAL ×2 (08:48→22:27)
[2025-05-21] MEDS: Potassium Chloride Oral Tablet 20 MEQ PO ×2 (08:48→17:42)
[2025-05-21] MEDS: APIXABAN 2.5 MG TABLET (WCH) PO ×2 (08:48→22:28)
[2025-05-21 08:50] VITALS: BP 139/73; PULSE 91
[2025-05-21] MEDS: Metoprolol(XL)Succ 25 MG Tablet PO (08:50)
[2025-05-21] MEDS: Cholecalciferol (Vit D3) 125 MCG CAPSULE (5,000 UNITS) PO (08:51)
[2025-05-21 10:00] VITALS: BP 139/73; PULSE 76; PULSE 91; RESP 16; TEMP 36.5; O2SAT 100; O2SAT 95
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
[2025-05-21] MEDS: Magnesium Chloride 64 MG Delay Rel.Tablet 128 MG PO (22:29)
[2025-05-21] MEDS: MELATONIN 3 MG TABLET PO (22:30)
[2025-05-22 09:15] VITALS: BP 145/74; PULSE 88; RESP 16; TEMP 36.2; O2SAT 94
[2025-05-22 09:23] VITALS: BP 145/79; PULSE 88
[2025-05-22] MEDS: Metoprolol(XL)Succ 25 MG Tablet PO (09:23)
[2025-05-22] MEDS: Cholecalciferol (Vit D3) 125 MCG CAPSULE (5,000 UNITS) PO (09:23)
[2025-05-22] MEDS: APIXABAN 2.5 MG TABLET (WCH) PO ×2 (09:23→20:58)
[2025-05-22] MEDS: Potassium Chloride Oral Tablet 20 MEQ PO ×2 (09:24→17:39)
[2025-05-22] MEDS: Arthritis Pain Compound 60 CLICK TUBE TOPICAL ×2 (09:24→20:54)
--- NOTE | 2025-05-22 14:27 | NURSING ---
Called and left VM with Dr. Yeager's office about GI consult and asked about completing egd. Updated resident and .
--- NOTE | 2025-05-22 19:09 | CON.PCM.GI_ITS ---
HPI Consult Data Date of Consult: 05/22/25 HPI Narrative Reason for Consultation: dysphagia HPI Narrative: ANAY CHAIREZ, is a 79-year-old female presents with a combination of esophageal and oropharyngeal dysphagia, along with reports of frequent vomiting. She reports difficulty initiating swallowing (oropharyngeal dysphagia), often accompanied by coughing and choking during meals, especially with liquids. She also describes food feeling stuck in her chest after swallowing (esophageal dysphagia), consistent with esophageal pathology. Recently, she reports frequent vomiting, often undigested food, after meals. [facility] Medical History (Updated 04/21/25 @ 07:[address] Honorio Nettles MD) Hypokalemia HTN (hypertension) Encounter for education Paroxysmal atrial fibrillation Essential hypertension Vitamin B12 deficiency Thiamine deficiency Acute UTI Polyneuropathy Cerebrovascular disease Osteoporosis Gallstones Cataract Anemia intermediate current use of anticoagulant Abnormal finding on thyroid function test GERD (gastroesophageal reflux disease) Esophageal dysmotility Rheumatoid arthritis Coronary artery disease Weight loss, unintentional Multiple thyroid nodules Anxiety Hemorrhoids Leukocytosis Dehydration Osteoarthritis Spinal stenosis Falls Atrial fibrillation and flutter Dysphagia Home Medications ?Medication ?Instructions ?Recorded ?Last Taken ?Type pantoprazole 40 mg tablet,delayed 40 mg PO DAILY stoma ch acid 03/16/21 04/08/25 History release Bilateral wrist splints for carpal #2 ea 08/08/21 Unkn own Rx tunnel syndrome cholecalciferol (vitamin D3) 125 5,000 unit PO DAILY s upplement 08/08/21 04/08/25 History mcg (5,000 unit) capsule folic acid 1 mg tablet 1 mg PO DAILY supplement #90 tabs 12/18/24 04/08/25 Rx magnesium oxide 400 mg PO QHS laxative #90 t abs 12/18/24 04/07/25 Rx olaparib 150 mg tablet (Lynparza) 300 mg (2 x 150 mg) PO BID 01/01/25 04/08/25 Rx chemotherapy 30 days #120 tabs metoprolol succinate 25 mg 25 mg PO DAILY blood pressu re #90 03/30/25 04/08/25 Rx tablet,extended release 24 hr tabs aspirin 81 mg tablet,delayed 81 mg PO DAILY 04/08/25 0 04/08/25 History release (Adult Aspirin Regimen) potassium chloride 10 mEq 10 meq PO BID 04/08/2504/08 History capsule,extended release apixaban 2.5 mg tablet (Eliquis) 2.5 mg PO Q12H blood clot 04/20/25 Unknown History prevention atorvastatin 40 mg tablet 40 mg PO QHS heart health Unknown History potassium chloride 20 mEq 20 meq PO DAILY supplement 0 04/20/25 Unknown History tablet,extended release (K-Tab) sennosides 8.6 mg tablet (Senokot) 8.6 mg PO DAILY sto ol softener 04/20/25 Unknown History Allergy/AdvReac Type Severity Reaction Status Date / Time acetaminophen (From Vicodin) Allergy Intermediate HEADACHE Verified 04/20/25 20:43 hydrocodone (From Vicodin) Allergy Intermediate HEADACHE Verified 04/20/25 20:43 Family History Mother Hypertension Alcohol abuse Anemia Respiratory disease Brother Diabetes Thyroid disorder Father Alcohol abuse Respiratory disease Grandmother Colon cancer Other Arthritis COPD (chronic obstructive pulmonary disease) CVA (cerebral vascular accident) Cancer Heart disease Surgical History History of left breast biopsy (~10/2021) History of cataract surgery S/P fine needle aspiration (~10/2020) History of bilateral knee replacement History of oral surgery History of bladder suspension procedure Hx of hysterectomy Hx of cholecystectomy Social History (Updated 04/21/25 @ 07:[address] Honorio Nettles MD) household members: spouse Smoking Status: Current some day smoker tobacco type: cigars Electronic Cigarette Use: not used second hand exposure: No alcohol intake: current alcohol intake frequency: holidays/special occasions only Alcohol type: wine substance use type: does not use caffeine: Yes Type: coffee Number of servings: 2 and tea Number of servings: 1 what type of physical activity do you participate in: swimming and aerobics frequency: 3-4 times per week jhony/sikhism: Buddhist seatbelt use: always ROS Constitutional Constitutional: Denies fatigue, fever(s), poor appetite, weight gain or weight loss Gastrointestinal Gastrointestinal: Denies belching, bloating, change in bowel habits, change in stool character, chewing difficulty, coffee ground emesis, constipation, cramping, diarrhea, dyspepsia, dysphagia, early satiety, excessive flatus, fecal incontinence, heartburn, hematemesis, hematochezia, hemorrhoids, loose stools, melena, nausea, odynophagia, rectal bleeding, tenesmus, vomiting or weight changes Physical Exam Const alert, oriented x3, no apparent distress and healthy appearing General Appearance: cooperative GI normal to inspection, nondistended, normoactive bowel sounds, soft to palpation, non-tender and non-distended Percussion: normal to percussion Rectal Exam: deferred Lab / Micro Data 05/19/25 05:06 05/19/25 05:06 Assessment & Plan Assessment/Plan (1) Esophageal dysmotility: PLAN: 79-year-old female presenting with both oropharyngeal and esophageal dysphagia, suggesting a complex underlying etiology. The oropharyngeal component is evidenced by difficulty initiating swallowing, coughing, choking, wet vocal quality, and potential neurological involvement (tongue weakness). * The esophageal component is indicated by the sensation of food sticking in the chest, suggesting a potential mechanical obstruction or motility disorder. Vomiting may be related to esophageal dysphagia (regurgitation) or other factors such as medication side effects, gastrointestinal issues (like GERD or infections), or even underlying neurological conditions. * Patient is at high risk for aspiration pneumonia, malnutrition, and dehydration due to the severity and nature of her dysphagia and vomiting. * Needs further diagnostic workup to determine the specific causes of both types of dysphagia and vomiting. Plan: * Esophagogastroduodenoscopy (EGD) with biopsies to evaluate for esophageal structural abnormalities (strictures, masses, inflammation) and potentially address them (dilation, biopsy). NPO the night of 05/24/2025 * Consider Esophageal Manometry if EGD is normal to assess esophageal motility (e.g., achalasia, spasms). Charges/Coding Visit Charges Inpatient E&M: 27391 SNF Init L2
[2025-05-22 20:00] VITALS: PULSE 88; O2SAT 94
[2025-05-22] MEDS: Senna/Docusate Sodium 1 Tablet PO (20:59)
[2025-05-22] MEDS: Magnesium Chloride 64 MG Delay Rel.Tablet 128 MG PO (20:59)
[2025-05-22] MEDS: MELATONIN 3 MG TABLET PO (21:02)
[2025-05-23] MEDS: Potassium Chloride Oral Tablet 20 MEQ PO ×2 (08:49→17:48)
[2025-05-23] MEDS: Senna/Docusate Sodium 1 Tablet PO ×2 (08:51→21:01)
[2025-05-23] MEDS: APIXABAN 2.5 MG TABLET (WCH) PO ×2 (08:53→21:01)
[2025-05-23 08:54] VITALS: PULSE 92
[2025-05-23] MEDS: Metoprolol(XL)Succ 25 MG Tablet PO (08:54)
[2025-05-23] MEDS: Cholecalciferol (Vit D3) 125 MCG CAPSULE (5,000 UNITS) PO (08:55)
[2025-05-23] MEDS: Arthritis Pain Compound 60 CLICK TUBE TOPICAL ×2 (08:56→21:01)
[2025-05-23 16:00] VITALS: BP 124/62; PULSE 92; RESP 16; TEMP 37.7; O2SAT 100
[2025-05-23 20:06] VITALS: PULSE 88; RESP 18; O2SAT 96
[2025-05-23] MEDS: Magnesium Chloride 64 MG Delay Rel.Tablet 128 MG PO (21:01)
[2025-05-23] MEDS: MELATONIN 3 MG TABLET PO (21:02)
--- NOTE | 2025-05-24 06:34 | NURSING ---
2.5 mg Eliquis ordered BID. Pt scheduled to have EGD on Sunday05/25/25. Notified Dr. Yeager via secure text message for clarification regarding administration of medication prior to procedure.
[2025-05-24] MEDS: Arthritis Pain Compound 60 CLICK TUBE TOPICAL ×2 (07:53→20:43)
[2025-05-24 07:54] VITALS: PULSE 73
[2025-05-24] MEDS: Potassium Chloride Oral Tablet 20 MEQ PO ×2 (07:54→17:41)
[2025-05-24] MEDS: APIXABAN 2.5 MG TABLET (WCH) PO (07:54)
[2025-05-24] MEDS: Metoprolol(XL)Succ 25 MG Tablet PO (07:54)
[2025-05-24] MEDS: Senna/Docusate Sodium 1 Tablet PO ×2 (07:55→20:44)
[2025-05-24] MEDS: Cholecalciferol (Vit D3) 125 MCG CAPSULE (5,000 UNITS) PO (07:55)
[2025-05-24] MEDS: Psyllium 1 PACKET PO (07:55)
--- NOTE | 2025-05-24 10:33 | NURSING ---
dr blackman ordered to hold Eliquis dose tonight and tomorrow until after EGD. updated on DEC
[2025-05-24 12:42] VITALS: BP 173/70; PULSE 77; RESP 16; TEMP 36.8; O2SAT 98
[2025-05-24] MEDS: Magnesium Chloride 64 MG Delay Rel.Tablet 128 MG PO (20:43)
[2025-05-24] MEDS: MELATONIN 3 MG TABLET PO (20:52)
[2025-05-24 20:59] VITALS: PULSE 80; RESP 16; O2SAT 96
[2025-05-25 05:51] VITALS: PULSE 86; RESP 16; O2SAT 98
[2025-05-25 10:13] VITALS: BP 144/88; PULSE 93; RESP 16; TEMP 36.2; O2SAT 99
[2025-05-25 11:18] VITALS: BP 144/88; PULSE 93; RESP 16; TEMP 36.2; O2SAT 99; BMI 31.9
--- NOTE | 2025-05-25 11:25 | NURSING ---
pt left unit for procedure.
--- NOTE | 2025-05-25 13:30 | NURSING ---
pt returned from procedure.
[2025-05-25] MEDS: Cholecalciferol (Vit D3) 125 MCG CAPSULE (5,000 UNITS) PO (13:34)
[2025-05-25 13:35] VITALS: BP 172/89; PULSE 80
[2025-05-25] MEDS: Senna/Docusate Sodium 1 Tablet PO ×2 (13:35→20:01)
[2025-05-25] MEDS: Metoprolol(XL)Succ 25 MG Tablet PO (13:35)
[2025-05-25] MEDS: Arthritis Pain Compound 60 CLICK TUBE TOPICAL ×2 (13:35→20:00)
[2025-05-25] MEDS: Potassium Chloride Oral Tablet 20 MEQ PO (16:58)
[2025-05-25] MEDS: Magnesium Chloride 64 MG Delay Rel.Tablet 128 MG PO (20:02)
[2025-05-25] MEDS: MELATONIN 3 MG TABLET PO (20:07)
[2025-05-26 07:16] LABS: Hematocrit 34.0 % (37-47); Hemoglobin 11.0 g/dL (12.0-15.0); Immature Granulocytes Count 0.040 X10^3/uL (0.0-0.0); Mean Corp Hgb Conc 32.4 g/dL (32-36); Mean Corpuscular Volume 100.9 fL (81-99); Mean Platelet Vol. 8.4 fl (6.2-12.0); NRBC Flagged by Analyzer 0 % (0-5); POSITIVE MORPHOLOGY YES; Platelet Count 129 K/mm3 (150-450); RBC Distribution Width CV 20.8 % (11.6-14.6); RBC Distribution Width SD 76.9 fl (35.1-43.9); Red Blood Count 3.37 M/mm3 (4.2-5.4); White Blood Count 6.6 K/mm3 (4.4-11.0)
[2025-05-26 07:29] LABS: Differential Indicated SCAN CRITERIA MET
[2025-05-26 07:50] LABS: Anion Gap 8 (5-15); BUN 21 mg/dL (4-19); BUN/Creat Ratio 43.6 RATIO (10-20); Calcium,Total 9.1 mg/dL (7.6-11.0); Carbon Dioxide 23.3 mmol/L (21.0-32.0); Chloride 107 mmol/L (98-108); Estimated Creatinine Clearance 49.49 ml/min (50-250); Glucose 97 mg/dL (70-99); Potassium 4.2 mmol/L (3.3-5.1)
[2025-05-26 08:26] LABS: Anisocytosis 1+
[2025-05-26 08:37] VITALS: BP 133/62; PULSE 76; RESP 18; TEMP 36.8; O2SAT 100
[2025-05-26] MEDS: Arthritis Pain Compound 60 CLICK TUBE TOPICAL ×2 (08:40→22:30)
[2025-05-26] MEDS: Potassium Chloride Oral Tablet 20 MEQ PO ×2 (08:40→17:32)
[2025-05-26] MEDS: APIXABAN 2.5 MG TABLET (WCH) PO ×2 (08:41→22:31)
[2025-05-26 08:42] VITALS: PULSE 76
[2025-05-26] MEDS: Metoprolol(XL)Succ 25 MG Tablet PO (08:42)
[2025-05-26] MEDS: Senna/Docusate Sodium 1 Tablet PO ×2 (08:42→22:31)
[2025-05-26] MEDS: Cholecalciferol (Vit D3) 125 MCG CAPSULE (5,000 UNITS) PO (08:42)
[2025-05-26 14:00] VITALS: BMI 31.7
--- NOTE | 2025-05-26 16:31 | CASEMGMT ---
Addendum entered by Rachana Carrera 05/27/25 09:57: w/c transport scheduled through [facility] for 1100. Original Note: Social Work SW confirmed with [facility] that pt can admit on 05/29. SW phoned to notify of DC date and agreed. SW spoke with pt at bedside to notify of DC. Issued NOM[facility] and explained appeal rights. Pt agreeable to DC. SW to schedule cot transport but pt stated she went to a recent appt by [facility] w/c and requesting w/c to assist with cost. SW agreed and will schedule w/c transport through [facility]. Pt appreciative. PASRR completed in [facility]. Plan: DC 05/29 to [facility], intermediate, private pay, part B therapies Rachana Carrera RESIDENT ASSOCIATE TELECOMMUNICATION OPERATOR
[2025-05-26 19:43] VITALS: PULSE 105; RESP 16; O2SAT 96
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
[2025-05-26] MEDS: Magnesium Chloride 64 MG Delay Rel.Tablet 128 MG PO (22:31)
[2025-05-26] MEDS: MELATONIN 3 MG TABLET PO (22:32)
[2025-05-27] MEDS: Potassium Chloride Oral Tablet 20 MEQ PO ×2 (08:58→17:30)
[2025-05-27] MEDS: APIXABAN 2.5 MG TABLET (WCH) PO ×2 (08:58→20:20)
[2025-05-27] MEDS: Arthritis Pain Compound 60 CLICK TUBE TOPICAL ×2 (08:58→20:18)
[2025-05-27] MEDS: Psyllium 1 PACKET PO (08:59)
[2025-05-27] MEDS: Senna/Docusate Sodium 1 Tablet PO ×2 (08:59→20:21)
[2025-05-27 09:00] VITALS: BP 123/62; PULSE 100; RESP 20; TEMP 36.4; O2SAT 96
[2025-05-27] MEDS: Cholecalciferol (Vit D3) 125 MCG CAPSULE (5,000 UNITS) PO (09:00)
[2025-05-27 09:01] VITALS: BP 123/62; PULSE 100
[2025-05-27] MEDS: Metoprolol(XL)Succ 25 MG Tablet PO (09:01)
--- NOTE | 2025-05-27 20:18 | NURSING ---
Patient accepted prune juice with butter for bowel protocol.
[2025-05-27] MEDS: Magnesium Chloride 64 MG Delay Rel.Tablet 128 MG PO (20:20)
[2025-05-27] MEDS: MELATONIN 3 MG TABLET PO (20:25)
[2025-05-28] MEDS: Cholecalciferol (Vit D3) 125 MCG CAPSULE (5,000 UNITS) PO (08:29)
[2025-05-28] MEDS: Senna/Docusate Sodium 1 Tablet 2 TABLET PO ×2 (08:29→20:50)
[2025-05-28] MEDS: Arthritis Pain Compound 60 CLICK TUBE TOPICAL ×2 (08:30→20:49)
[2025-05-28] MEDS: Potassium Chloride Oral Tablet 20 MEQ PO ×2 (08:30→18:25)
[2025-05-28] MEDS: APIXABAN 2.5 MG TABLET (WCH) PO ×2 (08:30→20:49)
[2025-05-28 08:36] VITALS: BP 117/66; PULSE 87
[2025-05-28] MEDS: Metoprolol(XL)Succ 25 MG Tablet PO (08:36)
[2025-05-28] MEDS: Magnesium Citrate 300 ML PO (13:58)
[2025-05-28 16:00] VITALS: BP 160/65; PULSE 75; RESP 16; TEMP 36.3; O2SAT 100
--- NOTE | 2025-05-28 16:02 | CASEMGMT ---
Social Work SW completed BIMS () and PHQ-2 () for MDS assessment. Rachana Carrera UNDERGROUND BOLTING MACHINE OPERATOR INVOICE CODER
[2025-05-28] MEDS: Magnesium Chloride 64 MG Delay Rel.Tablet 128 MG PO (20:49)
[2025-05-28 20:50] VITALS: PULSE 82; RESP 16; O2SAT 97
[2025-05-28] MEDS: MELATONIN 3 MG TABLET PO (20:50)
[2025-05-29 05:39] VITALS: PULSE 82; RESP 16; O2SAT 99
[2025-05-29 08:22] VITALS: BP 157/86; PULSE 96; RESP 16; TEMP 36.2; O2SAT 100
[2025-05-29] MEDS: Potassium Chloride Oral Tablet 20 MEQ PO (08:26)
[2025-05-29] MEDS: APIXABAN 2.5 MG TABLET (WCH) PO (08:26)
[2025-05-29 08:27] VITALS: PULSE 96
[2025-05-29] MEDS: Metoprolol(XL)Succ 25 MG Tablet PO (08:27)
[2025-05-29] MEDS: Cholecalciferol (Vit D3) 125 MCG CAPSULE (5,000 UNITS) PO (08:27)
[2025-05-29] MEDS: Senna/Docusate Sodium 1 Tablet 2 TABLET PO (08:27)
[2025-05-29] MEDS: Arthritis Pain Compound 60 CLICK TUBE TOPICAL (08:28)
--- NOTE | 2025-05-29 11:28 | NURSING ---
REPORT CALLED TO ADDISON AT [facility].
== END 2025-05-29 11:29 | disposition intermediate care facility (04) | DRG 949 ==
PROVIDERS: Admitting Provider Family Medicine Geriatric Medicine; PCP Family Medicine; Visit Provider Family Medicine Geriatric Medicine
DX: Z48.812 Encounter for surgical aftercare following surgery on the circulatory system (principal); J90 Pleural effusion, not elsewhere classified; N39.0 Urinary tract infection, site not specified; I69.391 Dysphagia following cerebral infarction; K22.2 Esophageal obstruction; B96.1 Klebsiella pneumoniae [K. pneumoniae] as the cause of diseases classified elsewhere; C50.812 Malignant neoplasm of overlapping sites of left female breast; I10 Essential (primary) hypertension; K76.0 Fatty (change of) liver, not elsewhere classified; I48.0 Paroxysmal atrial fibrillation; K21.00 Gastro-esophageal reflux disease with esophagitis, without bleeding; E53.8 Deficiency of other specified B group vitamins; E78.5 Hyperlipidemia, unspecified; E87.6 Hypokalemia; I25.10 Atherosclerotic heart disease of native coronary artery without angina pectoris; M48.02 Spinal stenosis, cervical region; E55.9 Vitamin D deficiency, unspecified; F17.290 Nicotine dependence, other tobacco product, uncomplicated; K22.4 Dyskinesia of esophagus; R13.12 Dysphagia, oropharyngeal phase; S52.502D Unspecified fracture of the lower end of left radius, subsequent encounter for closed fracture with routine healing; Z79.01 Long term (current) use of anticoagulants; Z79.899 Other long term (current) drug therapy; Z79.82 Long term (current) use of aspirin; Z17.0 Estrogen receptor positive status [ER+]; X58.XXXD Exposure to other specified factors, subsequent encounter; Z98.1 Arthrodesis status
CPT/HCPCS: 36415; 73100; 73110; 74018; 74230; 80048; 80061; 81001; 85025; 87077; 87086; 87088; 87184; 87186; 92507; 92523; 92526; 92610; 92611; 97110; 97116; 97129; 97130; 97162; 97163; 97166; 97530; 97535; 97802

== ENCOUNTER 2025-05-25 11:28 | Day surgery (SDC) | payer MEDICARE, BC, SELFPAY ==
[2025-05-25] VITALS (7 sets, daily range): BP systolic 116–142; BP diastolic 55–100; PULSE 81–88; RESP 16; TEMP 36.1–36.3; O2SAT 98–100; BMI 31.6
--- NOTE | 2025-05-25 11:41 | PCM.HP.STD ---
HPI - General General Date of Admission: 05/25/25 Date of Service: 05/25/25 Chief Complaint: dysphagia HPI Narrative 79-year-old female presents with a combination of esophageal and oropharyngeal dysphagia, along with reports of frequent vomiting. She reports difficulty initiating swallowing (oropharyngeal dysphagia), often accompanied by coughing and choking during meals, especially with liquids. She also describes food feeling stuck in her chest after swallowing (esophageal dysphagia), consistent with esophageal pathology. Recently, she reports frequent vomiting, often undigested food, after meals. 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 Abnormal finding on thyroid function test GERD (gastroesophageal reflux disease) Esophageal dysmotility Rheumatoid arthritis Coronary artery disease Weight loss, unintentional Multiple thyroid nodules Anxiety Hemorrhoids Leukocytosis Dehydration Osteoarthritis Spinal stenosis Falls Atrial fibrillation and flutter Dysphagia Home Medications ?Medication ?Instructions ?Recorded ?Last Taken ?Type pantoprazole 40 mg tablet,delayed 40 mg PO DAILY stomach acid 03/16/21 05/24/25 History release Bilateral wrist splints for carpal #2 ea 08/08/21 Unknown Rx tunnel syndrome cholecalciferol (vitamin D3) 125 5,000 unit PO DAILY supplement 08/08/21 05/24/25 History mcg (5,000 unit) capsule folic acid 1 mg tablet 1 mg PO DAILY supplement #90 tabs 12/18/24 05/24/25 Rx magnesium oxide 400 mg PO QHS laxative #90 tabs 12/18/24 05/24/25 Rx metoprolol succinate 25 mg 25 mg PO DAILY blood pressure #90 03/30/25 05/24/25 Rx tablet,extended release 24 hr tabs potassium chloride 10 mEq 20 meq PO BID 04/08/25 05/24/25 History capsule,extended release apixaban 2.5 mg tablet (Eliquis) 2.5 mg PO Q12H blood clot 04/20/25 05/24/25 History prevention atorvastatin 40 mg tablet 40 mg PO QHS heart health 04/20/25 05/24/25 History sennosides 8.6 mg tablet (Senokot) 8.6 mg PO DAILY stool softener 04/20/25 05/24/25 History acetaminophen 500 mg capsule 1,000 mg PO Q8 05/25/25 05/25/25 History calamine 3.5 %-menthol 0.2 1 applic topical BID 05/25/25 05/24/25 History %-petrolatum 69 %-zinc 16.5 % topical paste losartan 100 mg tablet (Cozaar) 100 mg PO DAILY 05/25/25 05/24/25 History melatonin 3 mg capsule 3 mg PO QHS 05/25/25 05/24/25 History ondansetron 8 mg disintegrating 8 mg PO Q8H PRN nausea 05/25/25 05/25/25 History tablet psyllium (Hydrocil Instant oral 1 packet PO DAILY 05/25/25 05/24/25 History packet) tramadol 50 mg tablet 50 mg PO Q6H PRN pain (scale score 05/25/25 Unknown History 7-10) Allergy/AdvReac Type Severity Reaction Status Date / Time acetaminophen (From Vicodin) Allergy Intermediate HEADACHE Verified 04/20/25 20:43 hydrocodone (From Vicodin) Allergy Intermediate HEADACHE Verified 04/20/25 20:43 Family History Mother Hypertension Alcohol abuse Anemia Respiratory disease Brother Diabetes Thyroid disorder Father Alcohol abuse Respiratory disease Grandmother Colon cancer Other Arthritis COPD (chronic obstructive pulmonary disease) CVA (cerebral vascular accident) Cancer Heart disease Surgical History History of left breast biopsy (~10/2021) History of cataract surgery S/P fine needle aspiration (~10/2020) History of bilateral knee replacement History of oral surgery History of bladder suspension procedure Hx of hysterectomy Hx of cholecystectomy Social History household members: spouse Smoking Status: Current some day smoker tobacco type: cigars Electronic Cigarette Use: not used second hand exposure: No alcohol intake: current alcohol intake frequency: holidays/special occasions only Alcohol type: wine substance use type: does not use caffeine: Yes Type: coffee Number of servings: 2 and tea Number of servings: 1 what type of physical activity do you participate in: swimming and aerobics frequency: 3-4 times per week jhony/orthodoxy: Restoration seatbelt use: always ROS Constitutional Constitutional: Denies fatigue, fever(s), poor appetite, weight gain or weight loss Gastrointestinal Gastrointestinal: Denies belching, bloating, change in bowel habits, change in stool character, chewing difficulty, coffee ground emesis, constipation, cramping, diarrhea, dyspepsia, dysphagia, early satiety, excessive flatus, fecal incontinence, heartburn, hematemesis, hematochezia, hemorrhoids, loose stools, melena, nausea, odynophagia, rectal bleeding, tenesmus, vomiting or weight changes Physical Exam Const alert, oriented x3, no apparent distress and healthy appearing General Appearance: cooperative GI normal to inspection, nondistended, normoactive bowel sounds, soft to palpation, non-tender and non-distended Percussion: normal to percussion Rectal Exam: deferred Assessment & Plan Assessment/Plan (1) Dysphagia: QUALIFIERS: Dysphagia type: unspecified PLAN: Assessment & Plan Assessment/Plan (1) Esophageal dysmotility: PLAN: 79-year-old female presenting with both oropharyngeal and esophageal dysphagia, suggesting a complex underlying etiology. The oropharyngeal component is evidenced by difficulty initiating swallowing, coughing, choking, wet vocal quality, and potential neurological involvement (tongue weakness). The esophageal component is indicated by the sensation of food sticking in the chest, suggesting a potential mechanical obstruction or motility disorder. Vomiting may be related to esophageal dysphagia (regurgitation) or other factors such as medication side effects, gastrointestinal issues (like GERD or infections), or even underlying neurological conditions. Patient is at high risk for aspiration pneumonia, malnutrition, and dehydration due to the severity and nature of her dysphagia and vomiting. Needs further diagnostic workup to determine the specific causes of both types of dysphagia and vomiting. Plan: Esophagogastroduodenoscopy (EGD) with biopsies to evaluate for esophageal structural abnormalities (strictures, masses, inflammation) and potentially address them (dilation, biopsy). NPO the night of 05/24/2025 Consider Esophageal Manometry if EGD is normal to assess esophageal motility (e.g., achalasia, spasms).
[2025-05-25] MEDS: Lactated Ringers 1,000 ML 15 ML IV (11:52)
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
--- NOTE | 2025-05-25 12:30 | EGD_PTH ---
PATIENT: ANAY CHAIREZ LOC: EN U#:[id number] AGE/SX: 79/F ROOM: RE05/25/[address]: Dr. Vicente Yeager DO : 1945 BED: DIS: 05/25/2025 SPEC #: [id number] RECD: 05/25/25 13:42 STATUS: BISHOP RELucas #: [id number] CARMELLA: 05/25/25 12:[address]: Vicente Yeager DEPT: SURGICAL PATHOLOGY RECD BY: Jai Eli ENTERED: 05/25/25 14:47 SP TYPE: EGD BIOPSY OTHR DR: Jorge A Rinaldi MD Tissues: A - Esophagus, NOS Procedures: Surgery Specimen Level IV HEADER OPERATION: EGD with biopsy and dilated PRE-OP DIAGNOSIS: Dysphagia TISSUE SUBMITTED: A- Distal esophagus biopsy MICROSCOPIC DIAGNOSIS A. Distal esophagus, biopsy: - Columnar mucosa negative for goblet cell metaplasia. - Squamous mucosa negative for eosinophils. MICROSCOPIC DESCRIPTION Slides are reviewed. GROSS DESCRIPTION A. Received in fixative is one container labeled with the patient's name and designated Distal esophagus biopsy. The specimen consists of one irregular fragment of light solitario soft tissue that measures 0.4 cm. The specimen is totally submitted in one cassette. [place] 05/25/2025 CPT:20268
--- NOTE | 2025-05-25 12:55 | OP.EGD_ITS ---
Patient Name: Paula Samuels Procedure Date: 05/25/2025 12:35 PM Date of : 1945 Age: 79 Procedure: Upper GI endoscopy Indications: Dysphagia Providers: Vicente Yeager DO Medicines: Monitored Anesthesia Care Patient Profile: This is an 79 year old female. Refer to note in patient chart for documentation of history and physical. Patient has symptoms of dysphagia with both liquids and solids. Complications: No immediate complications. Procedure: Pre-Anesthesia Assessment: - Prior to the procedure, a History and Physical was performed, and patient medications and allergies were reviewed. The patient is competent. The risks and benefits of the procedure and the sedation options and risks were discussed with the patient. All questions were answered and informed consent was obtained. Patient identification and proposed procedure were verified by the physician in the pre-procedure area. Mental Status Examination: alert and oriented. Airway Examination: normal oropharyngeal airway and neck mobility. Respiratory Examination: clear to auscultation. CV Examination: normal. Prophylactic Antibiotics: The patient does not require prophylactic antibiotics. Prior Anticoagulants: The patient has taken no anticoagulant or antiplatelet agents except for NSAID medication. ASA Grade Assessment: II - A patient with mild systemic disease. After reviewing the risks and benefits, the patient was deemed in satisfactory condition to undergo the procedure. The anesthesia plan was to use monitored anesthesia care (MAC). Immediately prior to administration of medications, the patient was re-assessed for adequacy to receive sedatives. The heart rate, respiratory rate, oxygen saturations, blood pressure, adequacy of pulmonary ventilation, and response to care were monitored throughout the procedure. The physical status of the patient was re-assessed after the procedure. After obtaining informed consent, the endoscope was passed under direct vision. Throughout the procedure, the patient's blood pressure, pulse, and oxygen saturations were monitored continuously. The gastroscope was introduced through the mouth, and advanced to the second part of duodenum. The upper GI endoscopy was accomplished without difficulty. The patient tolerated the procedure well. Scope In: 12:43:46 PM Scope Out: 12:48:16 PM Total Procedure Duration Time 0 hours 4 minutes 30 seconds Findings: The Z-line was irregular and was found 40 cm from the incisors. Biopsies were taken with a cold forceps for histology. Verification of patient identification for the specimen was done. Estimated blood loss was minimal. One benign-appearing, intrinsic moderate stenosis was found 20 to 25 cm from the incisors. This stenosis measured 5 mm (inner diameter) x 6 cm (in length). The stenosis was traversed. A guidewire was placed and the scope was withdrawn. Dilation was performed with a Savary dilator with no resistance at 60 Fr. The dilation site was examined and showed moderate mucosal disruption. No gross lesions were noted in the entire examined stomach. No gross lesions were noted in the entire examined duodenum. Impression: - Z-line irregular, 40 cm from the incisors. Biopsied. - Benign-appearing esophageal stenosis. Dilated. - No gross lesions in the entire stomach. - No gross lesions in the entire examined duodenum. Recommendation: - Return patient to referring hospital for ongoing care. - Continue present medications. Procedure Code(s): --- Professional --- 57447, Esophagogastroduodenoscopy, flexible, transoral; with insertion of guide wire followed by passage of dilator(s) through esophagus over guide wire 29106, 59,51, Esophagogastroduodenoscopy, flexible, transoral; with biopsy, single or multiple CPT copyright 2021 [employer]. All rights reserved. The codes documented in this report are preliminary and upon orthopedic coder review may be revised to meet current compliance requirements. Vicente Yeager DO 05/25/2025 12:54:31 PM This report has been signed electronically. Number of Addenda: 0 Note Initiated On: 05/25/2025 12:35 PM
--- NOTE | 2025-05-25 12:55 | OP.PROVAT_ITS ---
05/25/2025 Jorge A Rinaldi Md Re : Upper GI endoscopy procedure for Paula Samuels [place] This procedure was performed on Sunday, May 25, 2025. My impressions and recommendations are as follows: Impressions : - Z-line irregular, 40 cm from the incisors. Biopsied. - Benign-appearing esophageal stenosis. Dilated. - No gross lesions in the entire stomach. - No gross lesions in the entire examined duodenum. Recommendations : - Return patient to referring hospital for ongoing care. - Continue present medications. My findings are described in the full procedure note, which is enclosed. If I can be of further assistance, please feel free to contact me at . Sincerely, Vicente Yeager, 05/25/2025 12:54:31 PM This report has been signed electronically.
--- NOTE | 2025-05-25 12:56 | PCM.POST.ANE ---
Anesthesia: Postop Eval I Current Vital Signs Temperature: 97.1 F Pulse Rate: 81 Blood Pressure: 124/86 Respiratory Rate: 16 Pulse Ox: 100 Oxygen Delivery Method: Room Air Assessment Airway patent: Yes Spontaneous unlabored respirations: Yes Mental status: Awake and Calm nausea: No Vomiting: No Anesthesia Complication: No Fluid Hydration Crystalloid volume administer (ml): 300 Total IV fluid infused: 300 Progress Note Anesthesia document: Postop Eval 1 completed: Yes
--- NOTE | 2025-05-25 14:17 | PCM.POSTANE2 ---
Anesthesia Postop Eval I Sum Postop Eval Completion status Anesthesia document: Postop Eval 1 completed: Yes Anesthesia Postop Eval I Summary Anesthesia Postop Eval I Summary: Anesthesia Postop Eval I: Assessment Summary Airway patent Yes 05/25/25 12:56 [email or web address] Spontaneous unlabored Yes 05/25/25 12:56 [email or web address] respirations Mental status Awake,Calm 05/25/25 12:56 [email or web address] nausea No 05/25/25 12:56 [email or web address] Vomiting No 05/25/25 12:56 [email or web address] Anesthesia Postop Eval I: Fluid Summary Crystalloid volume administer 300 05/25/25 12:56 [email or web address] (ml) Colloids volume administered ( ml) Blood Product volume administered (ml) Total IV fluid infused 300 05/25/25 12:56 [email or web address] Anesthesia Postop Eval I: Summary Notes Anesthesia Complication No 05/25/25 12:56 [email or web address] Anesthesia Complication Comment: Post-operative progress note Anesthesia: Postop Eval II Evaluation Mental status: Awake and Calm Pain Level: 0 nausea: No Vomiting: No Complications Anesthesia Complication: No
== END 2025-05-25 13:23 | disposition home or self-care (01) ==
LOC: EN 11:29 → AC 11:29
PROVIDERS: PCP Family Medicine; Referring Provider Family Medicine; Visit Provider Internal Medicine Gastroenterology
PROC: 0DJ08ZZ Inspection of Upper Intestinal Tract, Via Natural or Artificial Opening Endoscopic (ICD-10-PCS; CPT 43235; principal; 2025-05-25 12:25)
DX: K22.2 Esophageal obstruction (principal); M06.9 Rheumatoid arthritis, unspecified; I48.0 Paroxysmal atrial fibrillation; K22.4 Dyskinesia of esophagus; R13.12 Dysphagia, oropharyngeal phase; I25.10 Atherosclerotic heart disease of native coronary artery without angina pectoris; I10 Essential (primary) hypertension; F17.290 Nicotine dependence, other tobacco product, uncomplicated; Z79.899 Other long term (current) drug therapy; Z79.01 Long term (current) use of anticoagulants; Z86.73 Personal history of transient ischemic attack (TIA), and cerebral infarction without residual deficits; Z90.710 Acquired absence of both cervix and uterus
CPT/HCPCS: 43239; 43248; 88305; C1769; J2405

== ENCOUNTER → 2025-06-01 05:00 | Outpatient (REF) | payer MEDICARE, BC, SELFPAY ==
[2025-06-01 08:24] LABS: Hematocrit 30.2 % (37-47); Hemoglobin 9.9 g/dL (12.0-15.0); Immature Granulocytes Count 0.030 X10^3/uL (0.0-0.0); Mean Corp Hgb Conc 32.8 g/dL (32-36); Mean Corpuscular Volume 99.7 fL (81-99); Mean Platelet Vol. 8.6 fl (6.2-12.0); NRBC Flagged by Analyzer 0 % (0-5); POSITIVE MORPHOLOGY YES; Platelet Count 145 K/mm3 (150-450); RBC Distribution Width CV 20.1 % (11.6-14.6); RBC Distribution Width SD 74.5 fl (35.1-43.9); Red Blood Count 3.03 M/mm3 (4.2-5.4); White Blood Count 6.7 K/mm3 (4.4-11.0)
[2025-06-01 08:27] LABS: Differential Indicated SCAN CRITERIA MET
[2025-06-01 08:52] LABS: AST(SGOT) 15 U/L (<=31); Alanine Aminotransfer ALT/SGPT 11 U/L (<=34); Albumin, Serum 3.0 g/dL (3.4-4.8); Alkaline Phosphatase 37 U/L (35-104); Anion Gap 8 (5-15); BUN 18 mg/dL (4-19); BUN/Creat Ratio 36.3 RATIO (10-20); Calcium,Total 9.0 mg/dL (7.6-11.0); Carbon Dioxide 25.5 mmol/L (21.0-32.0); Chloride 107 mmol/L (98-108); Globulin 2.4 g/dL (2.2-4.2); Glucose 89 mg/dL (70-99); Potassium 4.3 mmol/L (3.3-5.1); Vitamin B12 497 pg/mL (180-914); Vitamin D,25 Hydroxy 81.7 ng/mL (30-100)
[2025-06-01 08:57] LABS: Anisocytosis 1+; Polychromasia 1+
[2025-06-01 09:21] LABS: FOLATES,SERUM (FOLIC ACID) 26.20 ng/mL (4.60-34.80)
== END ==
LOC: OLS.WHLTCC 05:00
PROVIDERS: PCP Family Medicine; Visit Provider Internal Medicine
DX: D64.9 Anemia, unspecified (principal); N39.0 Urinary tract infection, site not specified; Z86.73 Personal history of transient ischemic attack (TIA), and cerebral infarction without residual deficits
CPT/HCPCS: 36415; 80053; 82306; 82607; 82746; 84443; 85025

== ENCOUNTER → 2025-06-02 04:00 | Outpatient (REF) | payer MEDICARE, BC, SELFPAY ==
[2025-06-02 07:42] LABS: T3 Total - Triiodothyronine 1.10 ng/mL (0.80-2.00)
== END ==
LOC: OLS.WHLTCC 04:00
PROVIDERS: PCP Family Medicine; Referring Provider Internal Medicine; Visit Provider Internal Medicine
DX: N39.0 Urinary tract infection, site not specified; B96.89 Other specified bacterial agents as the cause of diseases classified elsewhere; I69.354 Hemiplegia and hemiparesis following cerebral infarction affecting left non-dominant side; E04.2 Nontoxic multinodular goiter
CPT/HCPCS: 36415; 84439; 84443; 84480

== ENCOUNTER → 2025-06-08 | Outpatient (REF) | payer MEDICARE, BC, SELFPAY ==
--- OUTSIDE RECORDS SUMMARY | 2025-06-08 04:44 | XMS RPT_ITS | CCD ---
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 Honorio Nettles on 05-12-2025 pH (U) 6.0 [pH] 5.0 - 8.0 [facility] Urine sediment bacteria coun t by microscopy (number/high power field)Ordered By: Honorio Nettles on 05-12-2025 Bacteria LM.HPF (Urine sed) [#/Area] 2 /[HPF] None Seen [facility] Urine specific gravity measu rementOrdered By: Honorio Nettles on 05-12-2025 Specific gravity (U) [Rel density] 1.020 1.002-1.030 [facility] Urine urobilinogen measureme ntOrdered By: Honorio Nettles on 05-12-2025 Urobilinogen Ql (U) Normal mg/dl Normal [facility] White blood cell countOrdere d By: Honorio Nettles on 05-12-2025 White blood cell count >100 SEEN /hpf 0-5 [facility] Basic Metabolic Profile (BMP )on 05-05-2025 BUN/CRE 54.7 RATIO High 10-20 [facility] Comment on above: Performed By: #### L 500.2500, L100.0100 ####[facility] [address] [place], [address] Calcium [Mass/Vol] 9.1 mg/dL Normal 7.6-11.0 [facility] Comment on above: Performed By: #### L 500.2500, L100.0100 ####[facility] [address], [address] Chloride [Moles/Vol] 103 mmol/L Normal 98-108 [facility] Comment on above: Performed By: #### L 500.2500, L100.0100 ####[facility] [address], [address] CO2 [Moles/Vol] 24.1 mmol/L Normal 21.0-32.0 [facility] Comment on above: Performed By: #### L 500.2500, L100.0100 ####[facility] [address], [address] Creatinine [Mass/Vol] 0.50 mg/dL Low 0.70-1.20 [facility] Comment on above: Performed By: #### L 500.2500, L100.0100 ####[facility] [address], [address] ECRCL 50.20 ml/min Normal 50-250 [facility] Comment on above: Performed By: #### L 500.2500, L100.0100 ####[facility] [address], [address] GAP 9 Normal 5-15 [facility] Comment on above: Performed By: #### L 500.2500, L100.0100 ####[facility] [address] [place], [address] GFR/1.73 sq M.predicted among non-blacks MDRD (S/P/Bld) [Vol rate/Area] 94 mL/min/{1.73_m2} Normal >60 [facility] Comment on above: Result Comment: mL/m in/1.73m2 CKD-EPI Creatinine Equation (2020) Performed By: #### L 500.2500, L100.0100 ####[facility] [address] [place], [address] Glucose [Mass/Vol] 91 mg/dL Normal 70-99 [facility] Comment on above: Performed By: #### L 500.2500, L100.0100 ####[facility] [address] [place], [address] Potassium [Moles/Vol] 4.9 mmol/L Normal 3.3-5.1 [facility] Comment on above: Performed By: #### L 500.2500, L100.0100 ####[facility] [address] [place], [address] Sodium [Moles/Vol] 137 mmol/L Normal 133-145 [facility] Comment on above: Performed By: #### L 500.2500, L100.0100 ####[facility] [address] [place], [address] Urea nitrogen [Mass/Vol] 27 mg/dL High 4-19 [facility] Comment on above: Performed By: #### L 500.2500, L100.0100 ####[facility] [address] [place], [address] Bite cells detectionOrdered By: Honorio Nettles on 05-05-2025 Bite cells LM Ql (Bld) [facility] Blood manual differential co mment interpretation (narrative result)Ordered By: Honorio Nettles on 05-05-2025 Manual differential comment Nba (Bld) [Interp] SCANNED [facility] Blood schistocyte detection by light microscopyOrdered By: Honorio Nettles on 05-05-2025 Schistocytes LM Ql (Bld) [facility] CBC W/Diff, Automatedon 07-2 ACANTHOCYTE RARE Normal [facility] Comment on above: Performed By: #### L 500.2500, L100.0100 ####[facility] [address] [place], [address] BITE CELL RARE Normal [facility] Comment on above: Performed By: #### L 500.2500, L100.0100 ####[facility] [address] [place], [address] OVALOCYTE 2+ Normal [facility] Comment on above: Performed By: #### L 500.2500, L100.0100 ####[facility] [address] [place], [address] SCHISTOCYTES RARE Normal [facility] Comment on above: Performed By: #### L 500.2500, L100.0100 ####[facility] [address] [place], [address] TEAR DROP RARE Normal [facility] Comment on above: Performed By: #### L 500.2500, L100.0100 ####[facility] [address] [place], [address] Anisocytosis Ql (Bld) 3+ Normal [facility] Comment on above: Performed By: #### L 500.2500, L100.0100 ####[facility] [address] [place], [address] HYPOCHROMASIA 1+ Normal [facility] Comment on above: Performed By: #### L 500.2500, L100.0100 ####[facility] [address] [place], [address] MACROCYTOSIS 1+ Normal [facility] Comment on above: Performed By: #### L 500.2500, L100.0100 ####[facility] [address] [place], [address] MICROCYTIC 1+ Normal [facility] Comment on above: Performed By: #### L 500.2500, L100.0100 ####[facility] [address] [place], [address] PLT EST ADEQUATE Normal ADEQ [facility] Comment on above: Performed By: #### L 500.2500, L100.0100 ####[facility] [address] [place], [address] SMEAR COMMENT SCANNED Normal [facility] Comment on above: Performed By: #### L 500.2500, L100.0100 ####[facility] [address] [place], [address] Hypochromatic red blood cell detectionOrdered By: Honorio Nettles on 05-05-2025 Hypochromia Ql (Bld) 1+ [facility] Ovalocyte detectionOrdered B y: Honorio Nettles on 05-05-2025 Ovalocytes LM Ql (Bld) 2+ [facility] Teardrop cell detectionOrder ed By: Honorio Nettles on 05-05-2025 Dacrocytes LM Ql (Bld) RARE [facility] Urine Cultureon 05-02-2025 URC Normal [facility] Comment on above: Performed By: #### M 100.2200, L400.0001 ####[facility] [address] [place], [address] Urinalysis, Completeon 04-29 BACTERIA 2+ /hpf Normal None Seen [facility] Comment on above: Order Comment: BLADD ER TAP Performed By: #### M 100.2200, L400.0001 ####[facility] [address] [place], [address] RBC 5-10 SEEN Normal 0-5 [facility] Comment on above: Order Comment: BLADD ER TAP Performed By: #### M 100.2200, L400.0001 ####[facility] [address] [place], [address] WBC >100 SEEN Normal 0-5 [facility] Comment on above: Order Comment: BLADD ER TAP Performed By: #### M 100.2200, L400.0001 ####[facility] [address] [place], [address] EPI,SQUAMOUS 0 SEEN Normal 5-10 [facility] Comment on above: Order Comment: BLADD ER TAP Performed By: #### M 100.2200, L400.0001 ####[facility] [address] [place], [address] Mucus Ql (Urine sed) 0 SEEN Normal [facility] Comment on above: Order Comment: BLADD ER TAP Performed By: #### M 100.2200, L400.0001 ####[facility] [address] [place], [address] Urine cultureOrdered By: Honorio Nettles on 04-29-2025 Bacteria identified Cx Nom (U) Pseudomonas aeruginosa Abnormal [facility] Bacteria identified Cx Nom (U) Klebsiella aerogenes Abnormal [facility] Basic Metabolic Profile (BMP )on 04-28-2025 BUN/CRE 35.2 RATIO High 10-20 [facility] Comment on above: Performed By: #### L 500.2500, L100.0100 ####[facility] [address] [place], [address] Calcium [Mass/Vol] 9.1 mg/dL Normal 7.6-11.0 [facility] Comment on above: Performed By: #### L 500.2500, L100.0100 ####[facility] [address] [place], [address] Chloride [Moles/Vol] 100 mmol/L Normal 98-108 [facility] Comment on above: Performed By: #### L 500.2500, L100.0100 ####[facility] [address], [address] CO2 [Moles/Vol] 21.6 mmol/L Normal 21.0-32.0 [facility] Comment on above: Performed By: #### L 500.2500, L100.0100 ####[facility] [address] [place], [address] Creatinine [Mass/Vol] 0.67 mg/dL Low 0.70-1.20 [facility] Comment on above: Performed By: #### L 500.2500, L100.0100 ####[facility] [address] [place], [address] ECRCL 50.20 ml/min Normal 50-250 [facility] Comment on above: Performed By: #### L 500.2500, L100.0100 ####[facility] [address] [place], [address] GAP 13 Normal 5-15 [facility] Comment on above: Performed By: #### L 500.2500, L100.0100 ####[facility] [address] [place], [address] GFR/1.73 sq M.predicted among non-blacks MDRD (S/P/Bld) [Vol rate/Area] 88 mL/min/{1.73_m2} Normal >60 [facility] Comment on above: Result Comment: mL/m in/1.73m2 CKD-EPI Creatinine Equation (2020) Performed By: #### L 500.2500, L100.0100 ####[facility] [address] [place], [address] Glucose [Mass/Vol] 95 mg/dL Normal 70-99 [facility] Comment on above: Performed By: #### L 500.2500, L100.0100 ####[facility] [address] [place], [address] Potassium [Moles/Vol] 4.8 mmol/L Normal 3.3-5.1 [facility] Comment on above: Performed By: #### L 500.2500, L100.0100 ####[facility] [address] [place], [address] Sodium [Moles/Vol] 134 mmol/L Normal 133-145 [facility] Comment on above: Performed By: #### L 500.2500, L100.0100 ####[facility] [address] [place], [address] Urea nitrogen [Mass/Vol] 23 mg/dL High 4-19 [facility] Comment on above: Performed By: #### L 500.2500, L100.0100 ####[facility] [address] [place], [address] CBC W/Diff, Automatedon 07- ACANTHOCYTE RARE Normal [facility] Comment on above: Performed By: #### L 500.2500, L100.0100 ####[facility] [address] [place], [address] CRENATED RBC RARE Normal [facility] Comment on above: Performed By: #### L 500.2500, L100.0100 ####[facility] [address] [place], [address] OVALOCYTE 1+ Normal [facility] Comment on above: Performed By: #### L 500.2500, L100.0100 ####[facility] [address] [place], [address] SCHISTOCYTES RARE Normal [facility] Comment on above: Performed By: #### L 500.2500, L100.0100 ####[facility] [address] [place], [address] TEAR DROP RARE Normal [facility] Comment on above: Performed By: #### L 500.2500, L100.0100 ####[facility] [address] [place], [address] Anisocytosis Ql (Bld) 2+ Normal [facility] Comment on above: Performed By: #### L 500.2500, L100.0100 ####[facility] [address] [place], [address] PLT EST ADEQUATE Normal ADEQ [facility] Comment on above: Performed By: #### L 500.2500, L100.0100 ####[facility] [address] [place], [address] SMEAR COMMENT Normal [facility] Comment on above: Result Comment: 1+ B ANDS NOTED Performed By: #### L 500.2500, L100.0100 ####[facility] [address] [place], [address] Crenated erythrocyte detecti on by light microscopyOrdered By: Honorio Nettles on 04-28-2025 Brody cells LM Ql (Bld) RARE [facility] Wrist 2 Viewson 04-27-2025 Wrist 2 Views Normal [facility] Calculated very low density lipoprotein (VLDL) cholesterol measurementOrdered By: Honorio Nettles on 04-23-2025 Calculated very low density lipoprotein (VLDL) cholesterol measurement 13 mg/dL 5-40 [facility] LDL calc ser/plasOrdered By: Honorio Nettles on 04-23-2025 Cholesterol in LDL [Mass/Vol] 32 mg/dL [facility] Lipid Profileon 04-23-2025 CHOL:HDL 2.02 Normal [facility] Comment on above: Performed By: #### L 500.4100 ####[facility] [address] [place], [address] Cholesterol [Mass/Vol] 89 mg/dL Normal <=200 [facility] Comment on above: Result Comment: Chol esterol level, Desirable <200 mg/dLBorderline high cholesterol 200-239 mg/dLHigh cholesterol >=240 mg/dLRecommendations of the NCEP Adult Treatment Panel for thefollowing risk-cutoff thresholds for the [place] Americanpopulation. Performed By: #### L 500.4100 ####[facility] [address] [place], [address] Cholesterol in HDL [Mass/Vol] 44 mg/dL Normal [facility] Comment on above: Result Comment: Jacque onal Cholesterol Education Program (NCEP) guidelines:<40 mg/dL: Low HDL-cholesterol (major risk factor for CHD)>= 60 mg/dL: High HDL-cholesterol (negative risk factor forCHD)HDL-cholesterol is affected by a number of factors, e.g.smoking, exercise, hormones, sex and age. Performed By: #### L 500.4100 ####[facility] [address] [place], [address] Cholesterol in LDL [Mass/Vol] 32 mg/dL Normal [facility] Comment on above: Result Comment: Bord hlvfpz=509-622 mg/dL Higher Vpkj=111 mg/dL or greater Performed By: #### L 500.4100 ####[facility] [address] [place], [address] Cholesterol in VLDL [Mass/Vol] 13 mg/dL Normal 5-40 [facility] Comment on above: Performed By: #### L 500.4100 ####[facility] [address] [place], [address] Triglyceride [Mass/Vol] 67 mg/dL Normal [facility] Comment on above: Result Comment: The drugs N-Acetylcysteine and Metamizole may falselydepress this assay.Normal range: <150 mg/dLBorderline High: 150-199 mg/dLHigh: 200-499 mg/dLVery High: >500 mg/dL Performed By: #### L 500.4100 ####[facility] [address] [place], [address] Serum or plasma cholesterol in HDL measurement (mass/volume)Ordered By: Honorio Nettles on 04-23-2025 Cholesterol in HDL [Mass/Vol] 44 mg/dL >40 [facility] Serum or plasma cholesterol measurement (mass/volume)Ordered By: Honorio Nettles on 04-23-2025 Cholesterol [Mass/Vol] 89 mg/dL <201 [facility] Basic Metabolic Profile (BMP )on 04-21-2025 BUN/CRE 38.1 RATIO High 10-20 [facility] Comment on above: Performed By: #### L 500.2500, L100.0100 ####[facility] [address] [place], [address] Calcium [Mass/Vol] 8.3 mg/dL Normal 7.6-11.0 [facility] Comment on above: Performed By: #### L 500.2500, L100.0100 ####[facility] [address] [place], [address] Chloride [Moles/Vol] 104 mmol/L Normal 98-108 [facility] Comment on above: Performed By: #### L 500.2500, L100.0100 ####[facility] [address] [place], [address] CO2 [Moles/Vol] 22.0 mmol/L Normal 21.0-32.0 [facility] Comment on above: Performed By: #### L 500.2500, L100.0100 ####[facility] [address] [place], [address] Creatinine [Mass/Vol] 0.62 mg/dL Low 0.70-1.20 [facility] Comment on above: Performed By: #### L 500.2500, L100.0100 ####[facility] [address] [place], [address] GAP 8 Normal 5-15 [facility] Comment on above: Performed By: #### L 500.2500, L100.0100 ####[facility] [address] [place], [address] GFR/1.73 sq M.predicted among non-blacks MDRD (S/P/Bld) [Vol rate/Area] 89 mL/min/{1.73_m2} Normal >60 [facility] Comment on above: Result Comment: mL/m in/1.73m2 CKD-EPI Creatinine Equation (2020) Performed By: #### L 500.2500, L100.0100 ####[facility] [address] [place], [address] Glucose [Mass/Vol] 112 mg/dL High 70-99 [facility] Comment on above: Performed By: #### L 500.2500, L100.0100 ####[facility] [address], [address] Potassium [Moles/Vol] 4.4 mmol/L Normal 3.3-5.1 [facility] Comment on above: Performed By: #### L 500.2500, L100.0100 ####[facility] [address] [place], [address] Sodium [Moles/Vol] 134 mmol/L Normal 133-145 [facility] Comment on above: Performed By: #### L 500.2500, L100.0100 ####[facility] [address] [place], [address] Urea nitrogen [Mass/Vol] 24 mg/dL High 4-19 [facility] Comment on above: Performed By: #### L 500.2500, L100.0100 ####[facility] [address] [place], [address] CBC W/Diff, Automatedon 07-0 Anisocytosis Ql (Bld) 1+ Normal [facility] Comment on above: Performed By: #### L 500.2500, L100.0100 ####[facility] [address] [place], [address] PLT EST SLT DEC Normal ADEQ [facility] Comment on above: Performed By: #### L 500.2500, L100.0100 ####[facility] [address] [place], [address] CBC,PLATELETSon 04-20-2025 Erythrocyte distribution width (RBC) [Ratio] 19.9 % High 10.8 - 14.9 % [facility] Hematocrit (Bld) [Volume fraction] 33.2 % Low 34.9 - 44.3 % [facility] Hemoglobin (Bld) [Mass/Vol] 10.7 g/dL Low 11.4 - 15.2 g/dL [facility] Interpretation and review of laboratory results Abnormal [facility] MCH (RBC) [Entitic mass] 30.7 pg 25.9 - 33.9 pg [facility] MCHC (RBC) [Mass/Vol] 32.2 g/dL 31.4 - 35.9 g/dL [facility] MCV (RBC) [Entitic vol] 95.4 fL 79.6 - 97.7 fL [facility] Platelet mean volume (Bld) [Entitic vol] 9.5 fL 8.5 - 12.2 fL [facility] Platelets (Bld) [#/Vol] 146 10*3/uL Low 150 - 393 K/uL [facility] RBC (Bld) [#/Vol] 3.48 10*6/uL Low [facility] WBC (Bld) [#/Vol] 5.48 10*3/uL 3.99 - 11.19 K/uL [facility] Hematocrit (Bld) [Volume fraction] 33.2 % Low 34.9-44.3 [facility] Comment on above: Performed By: #### L ARNEL TOBIAS IPOlga, CHM7 #### [facility] (DEFAULT) [address] [place] [address] Hemoglobin (Bld) [Mass/Vol] 10.7 g/dL Low 11.4-15.2 [facility] Comment on above: Performed By: #### L ARNEL TOBIAS IPB, CHM7 #### [facility] (DEFAULT) [address] [place] [address] MCV (RBC) [Entitic vol] 95.4 fL Normal 79.6-97.7 [facility] Comment on above: Performed By: #### L DO, MGO, IPB, CHM7 #### [facility] (DEFAULT) [address] [place] [address] Mean Cell Hgb 30.7 pg Normal 25.9-33.9 [facility] Comment on above: Performed By: #### L DO, MGO, IPB, CHM7 #### [facility] (DEFAULT) [address] [place] [address] Mean Cell Hgb Conc 32.2 g/dL Normal 31.4-35.[address] [facility] Comment on above: Performed By: #### L DO, MGO, IPB, CHM7 #### [facility] (DEFAULT) [address] [place] [address] Platelet mean volume (Bld) [Entitic vol] 9.5 fL Normal 8.5-12.2 [facility] Comment on above: Performed By: #### L DO, MGO, IPB, CHM7 #### [facility] (DEFAULT) [address] [place] [address] Platelets (Bld) [#/Vol] 146 10*3/uL Low 150-393 [facility] Comment on above: Performed By: #### L DO, MGO, IPB, CHM7 #### [facility] (DEFAULT) [address] [place] [address] RBC (Bld) [#/Vol] 3.48 10*6/uL Low 3.91-5.04 [facility] Comment on above: Performed By: #### L DO, MGO, IPB, CHM7 #### [facility] (DEFAULT) [address] [place] [address] 15595 RBC Distribution 19.9 % High 10.8-14.9 [facility] Comment on above: Performed By: #### L DO, MGO, IPB, CHM7 #### [facility] (DEFAULT) [address] [place] [address] WBC (Bld) [#/Vol] 5.48 10*3/uL Normal 3.99-11.19 [facility] Comment on above: Performed By: #### L DO, MGO, IPB, CHM7 #### [facility] (DEFAULT) [address] [place] [address] CHEM 7 (LYTES,BUN,CREA,GLUC) on 04-20-2025 Anion gap [Moles/Vol] 11 mmol/L 7 - 17 mmol/L [facility] Chloride [Moles/Vol] 107 mmol/L 98 - 10 8 mmol/L [facility] CO2 [Moles/Vol] 25 mmol/L 21 - 31 mmol/L [facility] Creatinine [Mass/Vol] 0.53 mg/dL 0.50 - 1.20 mg/dL [facility] eGFR, CKD-EPI, Female - PINF [facility] Glucose [Mass/Vol] 84 mg/dL 70 - 179 mg/dL [facility] Osmolality Calc [Osmolality] 293 [facility] Potassium [Moles/Vol] 4.3 mmol/L 3.5 - 5.0 mmol/L [facility] Sodium [Moles/Vol] 139 mmol/L 135 - 145 mmol/L [facility] Urea nitrogen [Mass/Vol] 19 mg/dL 7 - 25 mg/dL [facility] Urea nitrogen/Creatinine [Mass ratio] 36 mg/mg [facility] Anion gap [Moles/Vol] 11 mmol/L Normal 7-17 [facility] Comment on above: Performed By: #### L DO, MGO, IPB, CHM7 #### [facility] (DEFAULT) [address] [place] [address] Chloride [Moles/Vol] 107 mmol/L Normal 98-108 [facility] Comment on above: Performed By: #### L DO, MGO IPB, CHM7 #### [facility] (DEFAULT) [address] [place] [address] CO2 [Moles/Vol] 25 mmol/L Normal 21-31 [facility] Comment on above: Performed By: #### L DO, MGO, IPB, CHM7 #### [facility] (DEFAULT) [address] [place] [address] Creatinine [Mass/Vol] 0.53 mg/dL Normal 0.50-1.20 [facility] Comment on above: Performed By: #### L DO, MGO, IPB, CHM7 #### [facility] (DEFAULT) [address] [place] [address]32[address] eGFR, CKD-EPI, Female > Normal >=60 [facility] Comment on above: Result Comment: Repo rted eGFR is based on the CKD-EPI 2020 equation using creatinine, age, and sex. Performed By: #### L DO MGO IPB, CHM7 #### [facility] (DEFAULT) [address] [place] [address] Glucose [Mass/Vol] 84 mg/dL Normal Nonfastin -179 mg/dL; Fastin-99 [facility] Comment on above: Performed By: #### L DO, MGO, IPB, CHM7 #### [facility] (DEFAULT) [address] [place] [address] Osmolality [Osmolality] 293 mosm/kg Normal 278-305 [facility] Comment on above: Performed By: #### L DO, MGO, IPB, CHM7 #### [facility] (DEFAULT) [address] [place] [address] Potassium [Moles/Vol] 4.3 mmol/L Normal 3.5-5.0 [facility] Comment on above: Performed By: #### L DO, MGO, IPB, CHM7 #### [facility] (DEFAULT) [address] [place] [address] 74087 Sodium [Moles/Vol] 139 mmol/L Normal 135-[address] [facility] Comment on above: Performed By: #### L DO, MGO, IPB, CHM7 #### [facility] (DEFAULT) [address] [place] [address]59 Urea nitrogen [Mass/Vol] 19 mg/dL Normal 7-25 [facility] Comment on above: Performed By: #### L DO, MGO, IPB, CHM7 #### [facility] (DEFAULT) [address] [place] [address]683 Urea nitrogen/Creatinine [Mass ratio] 36 mg/mg Normal [facility] Comment on above: Performed By: #### L DO, MGO, IPB, CHM7 #### [facility] (DEFAULT) [address] [place] [address] 66948 IONIZED CALCIUM, WHOLE BLOOD on 04-20-2025 Calcium.ionized (Bld) [Moles/Vol] 4.28 mg/dL Low 4.60 - 5.30 mg/dL [facility] Interpretation and review of laboratory results Abnormal [facility] ICA 4.28 mg/dL Low 4.60-5.30 [facility] Comment on above: Performed By: #### I CA #### [facility] (DEFAULT) [address] [place] [address]87 MAGNESIUMon 04-20-2025 Magnesium [Mass/Vol] 1.8 mg/dL 1.6 - 2 .6 mg/dL [facility] Magnesium [Mass/Vol] 1.8 mg/dL Normal 1.6-2.6 [facility] Comment on above: Performed By: #### L DO, MGO, IPB, CHM7 #### [facility] (DEFAULT) [address] [place] [address] No Panel Informationon 04-20 Interpretation and review of laboratory results Normal [facility] PHOSPHATE, INORGANICon 04-20 Phosphate [Mass/Vol] 3.6 mg/dL 2.2 - 4 .6 mg/dL [facility] Phosphorous 3.6 mg/dL Normal 2.2-4.6 [facility] Comment on above: Performed By: #### L DO, MGO, IPB, CHM7 #### [facility] (DEFAULT) [address] [place] [address] CBC,PLATELETSon 04-19-2025 Erythrocyte distribution width (RBC) [Ratio] 19.7 % High 10.8 - 14.9 % [facility] Hematocrit (Bld) [Volume fraction] 35.1 % 34.9 - 44.3 % [facility] Hemoglobin (Bld) [Mass/Vol] 11.3 g/dL Low 11.4 - 15.2 g/dL [facility] Interpretation and review of laboratory results Abnormal [facility] MCH (RBC) [Entitic mass] 30.6 pg 25.9 - 33.9 pg [facility] MCHC (RBC) [Mass/Vol] 32.2 g/dL 31.4 - 35.9 g/dL [facility] MCV (RBC) [Entitic vol] 95.1 fL 79.6 - 97.7 fL [facility] Platelet mean volume (Bld) [Entitic vol] 9.2 fL 8.5 - 12.2 fL [facility] Platelets (Bld) [#/Vol] 130 10*3/uL Low 150 - 393 K/uL [facility] RBC (Bld) [#/Vol] 3.69 10*6/uL Low [facility] WBC (Bld) [#/Vol] 6.13 10*3/uL 3.99 - 11.19 K/uL [facility] Hematocrit (Bld) [Volume fraction] 35.1 % Normal 34.9-44.3 [facility] Comment on above: Performed By: #### I CA #### [facility] (DEFAULT) [address] [place] [address]85 Hemoglobin (Bld) [Mass/Vol] 11.3 g/dL Low 11.4-15.2 [facility] Comment on above: Performed By: #### I CA #### [facility] (DEFAULT) [address] [address] MCV (RBC) [Entitic vol] 95.1 fL Normal 79.6-97.7 [facility] Comment on above: Performed By: #### I CA #### [facility] (DEFAULT) [address] [address] Mean Cell Hgb 30.6 pg Normal 25.9-33.9 [facility] Comment on above: Performed By: #### I CA #### [facility] (DEFAULT) [address] [address] Mean Cell Hgb Conc 32.2 g/dL Normal 31.4-35.[address] [facility] Comment on above: Performed By: #### I CA #### [facility] (DEFAULT) [address] [place] [address]23 Platelet mean volume (Bld) [Entitic vol] 9.2 fL Normal 8.5-12.2 [facility] Comment on above: Performed By: #### I CA #### [facility] (DEFAULT) [address] [address] Platelets (Bld) [#/Vol] 130 10*3/uL Low 150-393 [facility] Comment on above: Performed By: #### I CA #### [facility] (DEFAULT) [address] [address] RBC (Bld) [#/Vol] 3.69 10*6/uL Low 3.91-5.04 [facility] Comment on above: Performed By: #### I CA #### [facility] (DEFAULT) [address] [place] [address] RBC Distribution 19.7 % High 10.8-14.9 [facility] Comment on above: Performed By: #### I CA #### [facility] (DEFAULT) [address] [place] [address] WBC (Bld) [#/Vol] 6.13 10*3/uL Normal 3.99-11.19 [facility] Comment on above: Performed By: #### I CA #### [facility] (DEFAULT) [address] [place] [address] CHEM 7 (LYTES,BUN,CREA,GLUC) on 04-19-2025 Anion gap [Moles/Vol] 12 mmol/L 7 - 17 mmol/L [facility] Chloride [Moles/Vol] 105 mmol/L 98 - 10 8 mmol/L [facility] CO2 [Moles/Vol] 24 mmol/L 21 - 31 mmol/L [facility] Creatinine [Mass/Vol] 0.52 mg/dL 0.50 - 1.20 mg/dL [facility] eGFR, CKD-EPI, Female - PINF [facility] Glucose [Mass/Vol] 101 mg/dL 70 - 179 mg/dL [facility] Osmolality Calc [Osmolality] 291 [facility] Potassium [Moles/Vol] 4.4 mmol/L 3.5 - 5.0 mmol/L [facility] Sodium [Moles/Vol] 137 mmol/L 135 - 145 mmol/L [facility] Urea nitrogen [Mass/Vol] 20 mg/dL 7 - 25 mg/dL [facility] Urea nitrogen/Creatinine [Mass ratio] 38 mg/mg [facility] Anion gap [Moles/Vol] 12 mmol/L Normal 7-17 [facility] Comment on above: Performed By: #### M GO, CHM7, IPB ####[facility] (DEFAULT)[address] [place] [address] Chloride [Moles/Vol] 105 mmol/L Normal 98-108 [facility] Comment on above: Performed By: #### BALJIT QUINTANA, IPB ####[facility] (DEFAULT)[address] [place] [address] CO2 [Moles/Vol] 24 mmol/L Normal 21-31 [facility] Comment on above: Performed By: #### BALJIT QUINTANA, IPB ####[facility] (DEFAULT)[address] [place] [address] Creatinine [Mass/Vol] 0.52 mg/dL Normal 0.50-1.20 [facility] Comment on above: Performed By: #### BALJIT QUINTANA, IPB ####[facility] (DEFAULT)[address] [place] [address] eGFR, CKD-EPI, Female > Normal >=60 [facility] Comment on above: Result Comment: Repo rted eGFR is based on the CKD-EPI 2020 equation using creatinine, age, and sex. Performed By: #### BALJIT QUINTANA, MELANIB ####[facility] (DEFAULT)[address] [place] [address] Glucose [Mass/Vol] 101 mg/dL Normal Nonfastin -179 mg/dL; Fastin-99 [facility] Comment on above: Performed By: #### BALJIT QUINTANA, IPB ####[facility] (DEFAULT)[address] [place] [address] Osmolality [Osmolality] 291 mosm/kg Normal 278-305 [facility] Comment on above: Performed By: #### BALJIT QUINTANA, IPB ####[facility] (DEFAULT)[address] [place] [address] Potassium [Moles/Vol] 4.4 mmol/L Normal 3.5-5.0 [facility] Comment on above: Performed By: #### Cha MEDRANO, CHM7, IPB ####[facility] (DEFAULT)[address] [place] [address] Sodium [Moles/Vol] 137 mmol/L Normal 135-[address] [facility] Comment on above: Performed By: #### M MARCELA CHM7, IPB ####[facility] (DEFAULT)[address] [place] [address] Urea nitrogen [Mass/Vol] 20 mg/dL Normal 7-25 [facility] Comment on above: Performed By: #### M MARCELA CHM7, IPB ####[facility] (DEFAULT)[address] [place] [address], [place] [address] Urea nitrogen/Creatinine [Mass ratio] 38 mg/mg Normal [facility] Comment on above: Performed By: #### M LORENZA MEDRANOM7, IPB ####[facility] (DEFAULT)[address] [place] [address] IONIZED CALCIUM, WHOLE BLOOD Ordered By: Fouzia Marshall on 04-19-2025 Calcium.ionized (Bld) [Moles/Vol] 4.37 mg/dL Low 4.60 - 5.30 mg/dL [facility] Interpretation and review of laboratory results Abnormal [facility] IONIZED CALCIUM, WHOLE BLOOD on 04-19-2025 ICA 4.37 mg/dL Low 4.60-5.30 [facility] Comment on above: Performed By: #### I CA ####[facility] (DEFAULT)[address] [place] [address], [place] [address] MAGNESIUMon 04-19-2025 Magnesium [Mass/Vol] 1.9 mg/dL 1.6 - 2 .6 mg/dL [facility] Magnesium [Mass/Vol] 1.9 mg/dL Normal 1.6-2.6 [facility] Comment on above: Performed By: #### M MARCELA CHM7, IPB ####[facility] (DEFAULT)[address] [place] [address] No Panel Informationon 04-19 Interpretation and review of laboratory results Normal [facility] PHOSPHATE, INORGANICon 04-19 Phosphate [Mass/Vol] 2.9 mg/dL 2.2 - 4 .6 mg/dL [facility] Phosphorous 2.9 mg/dL Normal 2.2-4.6 [facility] Comment on above: Performed By: #### I CA #### [facility] (DEFAULT) [address] [place] [address] CBC,PLATELETSon 04-18-2025 Erythrocyte distribution width (RBC) [Ratio] 19.4 % High 10.8 - 14.9 % [facility] Hematocrit (Bld) [Volume fraction] 34.8 % Low 34.9 - 44.3 % [facility] Hemoglobin (Bld) [Mass/Vol] 11.2 g/dL Low 11.4 - 15.2 g/dL [facility] Interpretation and review of laboratory results Abnormal [facility] MCH (RBC) [Entitic mass] 31.5 pg 25.9 - 33.9 pg [facility] MCHC (RBC) [Mass/Vol] 32.2 g/dL 31.4 - 35.9 g/dL [facility] MCV (RBC) [Entitic vol] 98 fL High 79.6 - 97.7 fL [facility] Platelet mean volume (Bld) [Entitic vol] 10.5 fL 8.5 - 12.2 fL [facility] Platelets (Bld) [#/Vol] 104 10*3/uL Low 150 - 393 K/uL [facility] RBC (Bld) [#/Vol] 3.55 10*6/uL Low [facility] WBC (Bld) [#/Vol] 5.1 10*3/uL 3.99 - 11.19 K/uL [facility] Hematocrit (Bld) [Volume fraction] 34.8 % Low 34.9-44.3 [facility] Comment on above: Performed By: #### L DO, MGO, IPB, CHM7 #### [facility] (DEFAULT) [address] [place] [address] Hemoglobin (Bld) [Mass/Vol] 11.2 g/dL Low 11.4-15.2 [facility] Comment on above: Performed By: #### L DO, MGO, IPB, CHM7 #### [facility] (DEFAULT) [address] [place] [address] MCV (RBC) [Entitic vol] 98.0 fL High 79.6-97.7 [facility] Comment on above: Performed By: #### L DO, MGO, IPB, CHM7 #### [facility] (DEFAULT) [address] [place] [address] Mean Cell Hgb 31.5 pg Normal 25.9-33.9 [facility] Comment on above: Performed By: #### L DO, MGO, IPB, CHM7 #### [facility] (DEFAULT) [address] [place] [address] Mean Cell Hgb Conc 32.2 g/dL Normal 31.4-35.[address] [facility] Comment on above: Performed By: #### L DO, MGO, IPB, CHM7 #### [facility] (DEFAULT) [address] [place] [address] Platelet mean volume (Bld) [Entitic vol] 10.5 fL Normal 8.5-12.2 [facility] Comment on above: Performed By: #### L DO, MGO, IPB, CHM7 #### [facility] (DEFAULT) [address] [place] [address] Platelets (Bld) [#/Vol] 104 10*3/uL Low 150-393 [facility] Comment on above: Performed By: #### L DO, MGO, IPB, CHM7 #### [facility] (DEFAULT) [address] [place] [address] RBC (Bld) [#/Vol] 3.55 10*6/uL Low 3.91-5.04 [facility] Comment on above: Performed By: #### L DO, MGO, IPB, CHM7 #### [facility] (DEFAULT) [address] [place] [address] RBC Distribution 19.4 % High 10.8-14.9 [facility] Comment on above: Performed By: #### L DO, MGO, IPB, CHM7 #### [facility] (DEFAULT) [address] [place] [address] WBC (Bld) [#/Vol] 5.10 10*3/uL Normal 3.99-11.19 [facility] Comment on above: Performed By: #### L DO, MGO, IPB, CHM7 #### [facility] (DEFAULT) [address] [place] [address] CHEM 7 (LYTES,BUN,CREA,GLUC) on 04-18-2025 Anion gap [Moles/Vol] 13 mmol/L 7 - 17 mmol/L [facility] Chloride [Moles/Vol] 104 mmol/L 98 - 10 8 mmol/L [facility] CO2 [Moles/Vol] 24 mmol/L 21 - 31 mmol/L [facility] Creatinine [Mass/Vol] 0.56 mg/dL 0.50 - 1.20 mg/dL [facility] eGFR, CKD-EPI, Female - PINF [facility] Glucose [Mass/Vol] 109 mg/dL 70 - 179 mg/dL [facility] Osmolality Calc [Osmolality] 289 [facility] Potassium [Moles/Vol] 4.5 mmol/L 3.5 - 5.0 mmol/L [facility] Sodium [Moles/Vol] 136 mmol/L 135 - 145 mmol/L [facility] Urea nitrogen [Mass/Vol] 20 mg/dL 7 - 25 mg/dL [facility] Urea nitrogen/Creatinine [Mass ratio] 36 mg/mg [facility] Anion gap [Moles/Vol] 13 mmol/L Normal 7-17 [facility] Comment on above: Performed By: #### BALJIT QUINTANA, IPB ####[facility] (DEFAULT)[address] [place] [address] Chloride [Moles/Vol] 104 mmol/L Normal 98-108 [facility] Comment on above: Performed By: #### BALJIT QUINTANA, IPB ####[facility] (DEFAULT)[address] [place] [address] CO2 [Moles/Vol] 24 mmol/L Normal 21-31 [facility] Comment on above: Performed By: #### BALJIT QUINTANA, IPB ####[facility] (DEFAULT)[address] [place] [address] Creatinine [Mass/Vol] 0.56 mg/dL Normal 0.50-1.20 [facility] Comment on above: Performed By: #### BALJIT QUINTANA, IPB ####[facility] (DEFAULT)[address] [place] [address] eGFR, CKD-EPI, Female > Normal >=60 [facility] Comment on above: Result Comment: Repo rted eGFR is based on the CKD-EPI 2020 equation using creatinine, age, and sex. Performed By: #### BALJIT QUINTANA, IPB ####[facility] (DEFAULT)[address] [place] [address] Glucose [Mass/Vol] 109 mg/dL Normal Nonfastin -179 mg/dL; Fastin-99 [facility] Comment on above: Performed By: #### BALJIT QUINTANA, IPB ####[facility] (DEFAULT)[address] [place] [address] Osmolality [Osmolality] 289 mosm/kg Normal 278-305 [facility] Comment on above: Performed By: #### M MARCELA CHM7, IPB ####[facility] (DEFAULT)[address] [place] [address] Potassium [Moles/Vol] 4.5 mmol/L Normal 3.5-5.0 [facility] Comment on above: Performed By: #### Cha MEDRANO CHM7, IPB ####[facility] (DEFAULT)[address] [place] [address] Sodium [Moles/Vol] 136 mmol/L Normal 135-[address] [facility] Comment on above: Performed By: #### Cha MEDRANO CHM7, IPB ####[facility] (DEFAULT)[address] [place] [address] Urea nitrogen [Mass/Vol] 20 mg/dL Normal 7-25 [facility] Comment on above: Performed By: #### M LORENZA MEDRANOM7, IPB ####[facility] (DEFAULT)[address] [place] [address] Urea nitrogen/Creatinine [Mass ratio] 36 mg/mg Normal [facility] Comment on above: Performed By: #### M LORENZA MEDRANOM7, IPB ####[facility] (DEFAULT)[address] [place] [address] IONIZED CALCIUM, WHOLE BLOOD Ordered By: Enrico Tobias on 04-18-2025 Calcium.ionized (Bld) [Moles/Vol] 4.4 mg/dL Low 4.60 - 5.30 mg/dL [facility] Interpretation and review of laboratory results Abnormal [facility] IONIZED CALCIUM, WHOLE BLOOD on 04-18-2025 ICA 4.40 mg/dL Low 4.60-5.30 [facility] Comment on above: Performed By: #### I CA #### [facility] (DEFAULT) [address] [place] [address] MAGNESIUMon 04-18-2025 Magnesium [Mass/Vol] 2 mg/dL 1.6 - 2 .6 mg/dL [facility] Magnesium [Mass/Vol] 2.0 mg/dL Normal 1.6-2.6 [facility] Comment on above: Performed By: #### BALJIT QUINTANA, IPB ####[facility] (DEFAULT)[address] [place] [address] No Panel Informationon 04-18 Interpretation and review of laboratory results Normal [facility] PHOSPHATE, INORGANICon 04-18 Phosphate [Mass/Vol] 3.2 mg/dL 2.2 - 4 .6 mg/dL [facility] Phosphorous 3.2 mg/dL Normal 2.2-4.6 [facility] Comment on above: Performed By: #### BALJIT QUINTANA, IPB ####[facility] (DEFAULT)[address] [place] [address] CARDIAC RHYTHMon 04-17-2025 [facility] CBC,PLATELETSon 04-17-2025 Erythrocyte distribution width (RBC) [Ratio] 19.3 % High 10.8 - 14.9 % [facility] Hematocrit (Bld) [Volume fraction] 34.3 % Low 34.9 - 44.3 % [facility] Hemoglobin (Bld) [Mass/Vol] 11.3 g/dL Low 11.4 - 15.2 g/dL [facility] MCH (RBC) [Entitic mass] 31.3 pg 25.9 - 33.9 pg [facility] MCHC (RBC) [Mass/Vol] 32.9 g/dL 31.4 - 35.9 g/dL [facility] MCV (RBC) [Entitic vol] 95 fL 79.6 - 97.7 fL [facility] Platelet mean volume (Bld) [Entitic vol] 9.4 fL 8.5 - 12.2 fL [facility] Platelets (Bld) [#/Vol] 121 10*3/uL Low 150 - 393 K/uL [facility] RBC (Bld) [#/Vol] 3.61 10*6/uL Low [facility] WBC (Bld) [#/Vol] 5.24 10*3/uL 3.99 - 11.19 K/uL [facility] Hematocrit (Bld) [Volume fraction] 34.3 % Low 34.9-44.3 [facility] Comment on above: Performed By: #### L DO, MGO, IPB, CHM7 #### [facility] (DEFAULT) [address] [place] [address] Hemoglobin (Bld) [Mass/Vol] 11.3 g/dL Low 11.4-15.2 [facility] Comment on above: Performed By: #### L DO, MGO, IPB, CHM7 #### [facility] (DEFAULT) [address] [place] [address] MCV (RBC) [Entitic vol] 95.0 fL Normal 79.6-97.7 [facility] Comment on above: Performed By: #### L DO, MGO, IPB, CHM7 #### [facility] (DEFAULT) [address] [place] [address] Mean Cell Hgb 31.3 pg Normal 25.9-33.9 [facility] Comment on above: Performed By: #### L DO, MGO, IPB, CHM7 #### [facility] (DEFAULT) [address] [place] [address] Mean Cell Hgb Conc 32.9 g/dL Normal 31.4-35.[address] [facility] Comment on above: Performed By: #### L DO, MGO, IPB, CHM7 #### [facility] (DEFAULT) [address] [place] [address] Platelet mean volume (Bld) [Entitic vol] 9.4 fL Normal 8.5-12.2 [facility] Comment on above: Performed By: #### L DO, MGO, IPB, CHM7 #### [facility] (DEFAULT) [address] [place] [address] Platelets (Bld) [#/Vol] 121 10*3/uL Low 150-393 [facility] Comment on above: Performed By: #### L DO, MGO, IPB, CHM7 #### [facility] (DEFAULT) [address] [place] [address] RBC (Bld) [#/Vol] 3.61 10*6/uL Low 3.91-5.04 [facility] Comment on above: Performed By: #### L DO, MGO, IPB, CHM7 #### [facility] (DEFAULT) [address] [place] [address] RBC Distribution 19.3 % High 10.8-14.9 [facility] Comment on above: Performed By: #### L DO, MGO, IPB, CHM7 #### [facility] (DEFAULT) [address] [place] [address] WBC (Bld) [#/Vol] 5.24 10*3/uL Normal 3.99-11.19 [facility] Comment on above: Performed By: #### L DO, MGO, IPB, CHM7 #### [facility] (DEFAULT) [address] [place] [address] CHEM 7 (LYTES,BUN,CREA,GLUC) on 04-17-2025 Anion gap [Moles/Vol] 8 mmol/L 7 - 17 mmol/L [facility] Chloride [Moles/Vol] 105 mmol/L 98 - 10 8 mmol/L [facility] CO2 [Moles/Vol] 29 mmol/L 21 - 31 mmol/L [facility] [facility] Creatinine [Mass/Vol] 0.52 mg/dL 0.50 - 1.20 mg/dL [facility] eGFR, CKD-EPI, Female - PINF [facility] Glucose [Mass/Vol] 91 mg/dL 70 - 179 mg/dL [facility] Osmolality Calc [Osmolality] 291 [facility] Potassium [Moles/Vol] 4.6 mmol/L 3.5 - 5.0 mmol/L [facility] Sodium [Moles/Vol] 137 mmol/L 135 - 145 mmol/L [facility] Urea nitrogen [Mass/Vol] 22 mg/dL 7 - 25 mg/dL [facility] Urea nitrogen/Creatinine [Mass ratio] 42 mg/mg [facility] Anion gap [Moles/Vol] 8 mmol/L Normal 7-17 [facility] Comment on above: Performed By: #### I CA #### [facility] (DEFAULT) [address] [address] Chloride [Moles/Vol] 105 mmol/L Normal 98-108 [facility] Comment on above: Performed By: #### I CA #### [facility] (DEFAULT) [address] [address] CO2 [Moles/Vol] 29 mmol/L Normal 21-31 [facility] Comment on above: Performed By: #### I CA #### [facility] (DEFAULT) [address] [address] Creatinine [Mass/Vol] 0.52 mg/dL Normal 0.50-1.20 [facility] Comment on above: Performed By: #### I CA #### [facility] (DEFAULT) [address] [address] eGFR, CKD-EPI, Female > Normal >=60 [facility] Comment on above: Result Comment: Repo rted eGFR is based on the CKD-EPI 2020 equation using creatinine, age, and sex. Performed By: #### I CA #### [facility] (DEFAULT) [address] [address] Glucose [Mass/Vol] 91 mg/dL Normal Nonfastin -179 mg/dL; Fastin-99 [facility] Comment on above: Performed By: #### I CA #### [facility] (DEFAULT) [address] [place] [address] Osmolality [Osmolality] 291 mosm/kg Normal 278-305 [facility] Comment on above: Performed By: #### I CA #### [facility] (DEFAULT) [address] [place] [address] Potassium [Moles/Vol] 4.6 mmol/L Normal 3.5-5.0 [facility] Comment on above: Performed By: #### I CA #### [facility] (DEFAULT) [address] [place] [address] Sodium [Moles/Vol] 137 mmol/L Normal 135-[address] [facility] Comment on above: Performed By: #### I CA #### [facility] (DEFAULT) [address] [place] [address] Urea nitrogen [Mass/Vol] 22 mg/dL Normal 7-25 [facility] Comment on above: Performed By: #### I CA #### [facility] (DEFAULT) [address] [place] [address] Urea nitrogen/Creatinine [Mass ratio] 42 mg/mg Normal [facility] Comment on above: Performed By: #### I CA #### [facility] (DEFAULT) [address] [place] [address] IONIZED CALCIUM, WHOLE BLOOD on 04-17-2025 Calcium.ionized (Bld) [Moles/Vol] 4.43 mg/dL Low 4.60 - 5.30 mg/dL [facility] ICA 4.43 mg/dL Low 4.60-5.30 [facility] Comment on above: Performed By: #### X M #### [facility] (DEFAULT) [address] [place] [address] MAGNESIUMon 04-17-2025 Magnesium [Mass/Vol] 2 mg/dL 1.6 - 2 .6 mg/dL [facility] Magnesium [Mass/Vol] 2.0 mg/dL Normal 1.6-2.6 [facility] Comment on above: Performed By: #### I CA #### [facility] (DEFAULT) [address] [place] [address] No Panel Informationon 04-17 Interpretation and review of laboratory results Normal [facility] Interpretation and review of laboratory results Abnormal [facility] PHOSPHATE, INORGANICon 04-17 Phosphate [Mass/Vol] 2.8 mg/dL 2.2 - 4 .6 mg/dL [facility] Phosphorous 2.8 mg/dL Normal 2.2-4.6 [facility] Comment on above: Performed By: #### I CA #### [facility] (DEFAULT) [address] [place], [place] [id number] CBC,PLATELETSon 04-16-2025 Erythrocyte distribution width (RBC) [Ratio] 19.8 % High 10.8 - 14.9 % [facility] Hematocrit (Bld) [Volume fraction] 35 % 34.9 - 44.3 % [facility] Hemoglobin (Bld) [Mass/Vol] 11.4 g/dL 11.4 - 15.2 g/dL [facility] Interpretation and review of laboratory results Abnormal [facility] MCH (RBC) [Entitic mass] 31 pg 25.9 - 33.9 pg [facility] MCHC (RBC) [Mass/Vol] 32.6 g/dL 31.4 - 35.9 g/dL [facility] MCV (RBC) [Entitic vol] 95.1 fL 79.6 - 97.7 fL [facility] Platelet mean volume (Bld) [Entitic vol] 8.8 fL 8.5 - 12.2 fL [facility] Platelets (Bld) [#/Vol] 116 10*3/uL Low 150 - 393 K/uL [facility] RBC (Bld) [#/Vol] 3.68 10*6/uL Low [facility] WBC (Bld) [#/Vol] 5.6 10*3/uL 3.99 - 11.19 K/uL [facility] Hematocrit (Bld) [Volume fraction] 35.0 % Normal 34.9-44.3 [facility] Comment on above: Performed By: #### L DO, MGO, IPB, CHM7 #### [facility] (DEFAULT) [address] [place] [address] Hemoglobin (Bld) [Mass/Vol] 11.4 g/dL Normal 11.4-15.2 [facility] Comment on above: Performed By: #### L DO, MGO, IPB, CHM7 #### [facility] (DEFAULT) [address] [place] [address] MCV (RBC) [Entitic vol] 95.1 fL Normal 79.6-97.7 [facility] Comment on above: Performed By: #### L DO, MGO, IPB, CHM7 #### [facility] (DEFAULT) [address] [place] [address] Mean Cell Hgb 31.0 pg Normal 25.9-33.9 [facility] Comment on above: Performed By: #### L DO, MGO, IPB, CHM7 #### [facility] (DEFAULT) [address] [place] [address] Mean Cell Hgb Conc 32.6 g/dL Normal 31.4-35.[address] [facility] Comment on above: Performed By: #### L DO, MGO, IPB, CHM7 #### [facility] (DEFAULT) [address] [place] [address] Platelet mean volume (Bld) [Entitic vol] 8.8 fL Normal 8.5-12.2 [facility] Comment on above: Performed By: #### L DO, MGO, IPB, CHM7 #### [facility] (DEFAULT) [address] [place] [address] Platelets (Bld) [#/Vol] 116 10*3/uL Low 150-393 [facility] Comment on above: Performed By: #### L DO, MGO, IPB, CHM7 #### [facility] (DEFAULT) [address] [place] [address] RBC (Bld) [#/Vol] 3.68 10*6/uL Low 3.91-5.04 [facility] Comment on above: Performed By: #### L DO, MGO, IPB, CHM7 #### [facility] (DEFAULT) [address] [place] [address] RBC Distribution 19.8 % High 10.8-14.9 [facility] Comment on above: Performed By: #### L DO, MGO, IPB, CHM7 #### [facility] (DEFAULT) [address] [place] [address] WBC (Bld) [#/Vol] 5.60 10*3/uL Normal 3.99-11.19 [facility] Comment on above: Performed By: #### L DO, MGO, IPB, CHM7 #### [facility] (DEFAULT) [address] [place] [address] CHEM 7 (LYTES,BUN,CREA,GLUC) on 04-16-2025 Anion gap [Moles/Vol] 12 mmol/L 7 - 17 mmol/L [facility] Chloride [Moles/Vol] 105 mmol/L 98 - 10 8 mmol/L [facility] CO2 [Moles/Vol] 24 mmol/L 21 - 31 mmol/L [facility] Creatinine [Mass/Vol] 0.5 mg/dL 0.50 - 1.20 mg/dL [facility] eGFR, CKD-EPI, Female - PINF [facility] Glucose [Mass/Vol] 85 mg/dL 70 - 179 mg/dL [facility] Osmolality Calc [Osmolality] 289 [facility] Potassium [Moles/Vol] 4.3 mmol/L 3.5 - 5.0 mmol/L [facility] Sodium [Moles/Vol] 137 mmol/L 135 - 145 mmol/L [facility] Urea nitrogen [Mass/Vol] 20 mg/dL 7 - 25 mg/dL [facility] Urea nitrogen/Creatinine [Mass ratio] 40 mg/mg [facility] Anion gap [Moles/Vol] 12 mmol/L Normal 7-17 [facility] Comment on above: Performed By: #### L DO, MGO, IPB, CHM7 #### [facility] (DEFAULT) [address] [place] [address] Chloride [Moles/Vol] 105 mmol/L Normal 98-108 [facility] Comment on above: Performed By: #### L DO, MGO, IPB, CHM7 #### [facility] (DEFAULT) [address] [place] [address] CO2 [Moles/Vol] 24 mmol/L Normal 21-31 [facility] Comment on above: Performed By: #### L DO, MGO, IPB, CHM7 #### [facility] (DEFAULT) [address] [place] [address] Creatinine [Mass/Vol] 0.50 mg/dL Normal 0.50-1.20 [facility] Comment on above: Performed By: #### L DO, MGO, IPB, CHM7 #### [facility] (DEFAULT) [address] [place] [address] eGFR, CKD-EPI, Female > Normal >=60 [facility] Comment on above: Result Comment: Repo rted eGFR is based on the CKD-EPI 2020 equation using creatinine, age, and sex. Performed By: #### L DO, MGO, IPB, CHM7 #### [facility] (DEFAULT) [address] [place] [address] Glucose [Mass/Vol] 85 mg/dL Normal Nonfastin -179 mg/dL; Fastin-99 [facility] Comment on above: Performed By: #### L DO, MGO, IPB, CHM7 #### [facility] (DEFAULT) [address] [place] [address] Osmolality [Osmolality] 289 mosm/kg Normal 278-305 [facility] Comment on above: Performed By: #### L DO, MGO, IPB, CHM7 #### [facility] (DEFAULT) [address] [place] [address] Potassium [Moles/Vol] 4.3 mmol/L Normal 3.5-5.0 [facility] Comment on above: Performed By: #### L DO, MGO, IPB, CHM7 #### [facility] (DEFAULT) [address] [place] [address] Sodium [Moles/Vol] 137 mmol/L Normal 135-[address] [facility] Comment on above: Performed By: #### L DO, MGO, IPB, CHM7 #### [facility] (DEFAULT) [address] [place] [address] Urea nitrogen [Mass/Vol] 20 mg/dL Normal 7-25 [facility] Comment on above: Performed By: #### L DO, MGO, IPB, CHM7 #### [facility] (DEFAULT) [address] [place] [address] Urea nitrogen/Creatinine [Mass ratio] 40 mg/mg Normal [facility] Comment on above: Performed By: #### L DO, MGO, IPB, CHM7 #### [facility] (DEFAULT) [address] [place] [address] IONIZED CALCIUM, WHOLE BLOOD Ordered By: Brenden Khan on 04-16-2025 Calcium.ionized (Bld) [Moles/Vol] 3.12 mg/dL Critically low 4.60 - 5.30 mg/dL [facility] Interpretation and review of laboratory results Abnormal [facility] IONIZED CALCIUM, WHOLE BLOOD on 04-16-2025 ICA 3.12 mg/dL Critically low 4.60-5.30 [facility] Comment on above: Performed By: #### X M #### [facility] (DEFAULT) [address] [place] [address] MAGNESIUMon 04-16-2025 Magnesium [Mass/Vol] 2.1 mg/dL 1.6 - 2 .6 mg/dL [facility] Magnesium [Mass/Vol] 2.1 mg/dL Normal 1.6-2.6 [facility] Comment on above: Performed By: #### L DO, MGO, IPB, CHM7 #### [facility] (DEFAULT) [address] [place] [address] No Panel Informationon 04-16 Interpretation and review of laboratory results Normal [facility] PHOSPHATE, INORGANICon 04-16 Phosphate [Mass/Vol] 3.1 mg/dL 2.2 - 4 .6 mg/dL [facility] Phosphorous 3.1 mg/dL Normal 2.2-4.6 [facility] Comment on above: Performed By: #### L DO, MGO, IPB, CHM7 #### [facility] (DEFAULT) [address] [place] [address] CBC,PLATELETSon 04-15-2025 Erythrocyte distribution width (RBC) [Ratio] 19.8 % High 10.8 - 14.9 % [facility] Hematocrit (Bld) [Volume fraction] 33.7 % Low 34.9 - 44.3 % [facility] Hemoglobin (Bld) [Mass/Vol] 11 g/dL Low 11.4 - 15.2 g/dL [facility] Interpretation and review of laboratory results Abnormal [facility] MCH (RBC) [Entitic mass] 30.6 pg 25.9 - 33.9 pg [facility] MCHC (RBC) [Mass/Vol] 32.6 g/dL 31.4 - 35.9 g/dL [facility] MCV (RBC) [Entitic vol] 93.9 fL 79.6 - 97.7 fL [facility] Platelet mean volume (Bld) [Entitic vol] 9.2 fL 8.5 - 12.2 fL [facility] Platelets (Bld) [#/Vol] 132 10*3/uL Low 150 - 393 K/uL [facility] RBC (Bld) [#/Vol] 3.59 10*6/uL Low [facility] WBC (Bld) [#/Vol] 4.6 10*3/uL 3.99 - 11.19 K/uL [facility] Hematocrit (Bld) [Volume fraction] 33.7 % Low 34.9-44.3 [facility] Comment on above: Performed By: #### I CA #### [facility] (DEFAULT) [address] [place] [address] Hemoglobin (Bld) [Mass/Vol] 11.0 g/dL Low 11.4-15.2 [facility] Comment on above: Performed By: #### I CA #### [facility] (DEFAULT) [address] [place] [address] MCV (RBC) [Entitic vol] 93.9 fL Normal 79.6-97.7 [facility] Comment on above: Performed By: #### I CA #### [facility] (DEFAULT) [address] [place] [address] Mean Cell Hgb 30.6 pg Normal 25.9-33.9 [facility] Comment on above: Performed By: #### I CA #### [facility] (DEFAULT) [address] [place] [address] Mean Cell Hgb Conc 32.6 g/dL Normal 31.4-35.[address] [facility] Comment on above: Performed By: #### I CA #### [facility] (DEFAULT) [address] [place] [address] Platelet mean volume (Bld) [Entitic vol] 9.2 fL Normal 8.5-12.2 [facility] Comment on above: Performed By: #### I CA #### [facility] (DEFAULT) [address] [place] [address] Platelets (Bld) [#/Vol] 132 10*3/uL Low 150-393 [facility] Comment on above: Performed By: #### I CA #### [facility] (DEFAULT) [address] [place] [address] RBC (Bld) [#/Vol] 3.59 10*6/uL Low 3.91-5.04 [facility] Comment on above: Performed By: #### I CA #### [facility] (DEFAULT) [address] [place] [address] RBC Distribution 19.8 % High 10.8-14.9 [facility] Comment on above: Performed By: #### I CA #### [facility] (DEFAULT) [address] [place] [address] WBC (Bld) [#/Vol] 4.60 10*3/uL Normal 3.99-11.19 [facility] Comment on above: Performed By: #### I CA #### [facility] (DEFAULT) [address] [place] [address] CHEM 7 (LYTES,BUN,CREA,GLUC) on 04-15-2025 Anion gap [Moles/Vol] 10 mmol/L 7 - 17 mmol/L [facility] Chloride [Moles/Vol] 103 mmol/L 98 - 10 8 mmol/L [facility] CO2 [Moles/Vol] 28 mmol/L 21 - 31 mmol/L [facility] Creatinine [Mass/Vol] 0.68 mg/dL 0.50 - 1.20 mg/dL [facility] eGFR, CKD-EPI, Female 87 - PINF [facility] Glucose [Mass/Vol] 106 mg/dL 70 - 179 mg/dL [facility] Interpretation and review of laboratory results Abnormal [facility] Osmolality Calc [Osmolality] 294 [facility] Potassium [Moles/Vol] 4.2 mmol/L 3.5 - 5.0 mmol/L [facility] Sodium [Moles/Vol] 137 mmol/L 135 - 145 mmol/L [facility] Urea nitrogen [Mass/Vol] 31 mg/dL High 7 - 25 mg/dL [facility] Urea nitrogen/Creatinine [Mass ratio] 46 mg/mg [facility] Anion gap [Moles/Vol] 10 mmol/L Normal 7-17 [facility] Comment on above: Performed By: #### L DO, MGO, IPB, CHM7 #### [facility] (DEFAULT) [address] [place] [address] Chloride [Moles/Vol] 103 mmol/L Normal 98-108 [facility] Comment on above: Performed By: #### L DO, MGO, IPB, CHM7 #### [facility] (DEFAULT) [address] [place] [address] CO2 [Moles/Vol] 28 mmol/L Normal 21-31 [facility] Comment on above: Performed By: #### L DO, MGO, IPB, CHM7 #### [facility] (DEFAULT) [address] [place] [address]28 Creatinine [Mass/Vol] 0.68 mg/dL Normal 0.50-1.20 [facility] Comment on above: Performed By: #### L DO, MGO, IPB, CHM7 #### [facility] (DEFAULT) [address] [place] [address]85 GFR/1.73 sq M.predicted among non-blacks MDRD (S/P/Bld) [Vol rate/Area] 87 mL/min/{1.73_m2} Normal >=60 [facility] Comment on above: Result Comment: Repo rted eGFR is based on the CKD-EPI 2020 equation using creatinine, age, and sex. Performed By: #### L DO, MGO, IPB, CHM7 #### [facility] (DEFAULT) [address] [place] [address]73 Glucose [Mass/Vol] 106 mg/dL Normal Nonfastin -179 mg/dL; Fastin-99 [facility] Comment on above: Performed By: #### L DO, MGO, IPB, CHM7 #### [facility] (DEFAULT) [address] [place] [address]756 Osmolality [Osmolality] 294 mosm/kg Normal 278-305 [facility] Comment on above: Performed By: #### L DO, MGO, IPB, CHM7 #### [facility] (DEFAULT) [address] [place] [address] Potassium [Moles/Vol] 4.2 mmol/L Normal 3.5-5.0 [facility] Comment on above: Performed By: #### L DO, MGO, IPB, CHM7 #### [facility] (DEFAULT) [address] [place] [address] Sodium [Moles/Vol] 137 mmol/L Normal 135-[address] [facility] Comment on above: Performed By: #### L DO, MGO, IPB, CHM7 #### [facility] (DEFAULT) [address] [place] [address]759 Urea nitrogen [Mass/Vol] 31 mg/dL High 7-25 [facility] Comment on above: Performed By: #### L DO, MGO, IPB, CHM7 #### [facility] (DEFAULT) [address] [place] [address]247 Urea nitrogen/Creatinine [Mass ratio] 46 mg/mg Normal [facility] Comment on above: Performed By: #### L DO, MGO, IPB, CHM7 #### [facility] (DEFAULT) [address] [place] [address]001 ECGOrdered By: Vandana richardson on 04-15-2025 [facility] Work Phone: IONIZED CALCIUM, WHOLE BLOOD Ordered By: Paul Faulkner on 04-15-2025 Calcium.ionized (Bld) [Moles/Vol] 4.31 mg/dL Low 4.60 - 5.30 mg/dL [facility] Interpretation and review of laboratory results Abnormal [facility] IONIZED CALCIUM, WHOLE BLOOD on 04-15-2025 ICA 4.31 mg/dL Low 4.60-5.30 [facility] Comment on above: Performed By: #### L DO, MGO, IPB, CHM7 #### [facility] (DEFAULT) [address] [place] [address] MAGNESIUMon 04-15-2025 Magnesium [Mass/Vol] 2 mg/dL 1.6 - 2 .6 mg/dL [facility] Magnesium [Mass/Vol] 2.0 mg/dL Normal 1.6-2.6 [facility] Comment on above: Performed By: #### L DO, MGO, IPB, CHM7 #### [facility] (DEFAULT) [address] [place] [address] 80690 No Panel Informationon 04-15 Interpretation and review of laboratory results Normal [facility] PHOSPHATE, INORGANICon 04-15 Phosphate [Mass/Vol] 3.7 mg/dL 2.2 - 4 .6 mg/dL [facility] Phosphorous 3.7 mg/dL Normal 2.2-4.6 [facility] Comment on above: Performed By: #### L DO, MGO, IPB, CHM7 #### [facility] (DEFAULT) [address] [place] [address] US.doppler Upper extremity v ein - leftOrdered By: Sid Laguerre on 04-15-2025 [facility] Work Phone: US.doppler Upper extremity v ein - lefton 04-15-2025 Radiology Study observation (narrative) [facility] CBC,PLATELETSon 04-14-2025 Erythrocyte distribution width (RBC) [Ratio] 20.2 % High 10.8 - 14.9 % [facility] Hematocrit (Bld) [Volume fraction] 33.9 % Low 34.9 - 44.3 % [facility] Hemoglobin (Bld) [Mass/Vol] 11.3 g/dL Low 11.4 - 15.2 g/dL [facility] Interpretation and review of laboratory results Abnormal [facility] MCH (RBC) [Entitic mass] 30.7 pg 25.9 - 33.9 pg [facility] MCHC (RBC) [Mass/Vol] 33.3 g/dL 31.4 - 35.9 g/dL [facility] MCV (RBC) [Entitic vol] 92.1 fL 79.6 - 97.7 fL [facility] Platelet mean volume (Bld) [Entitic vol] 9.8 fL 8.5 - 12.2 fL [facility] Platelets (Bld) [#/Vol] 138 10*3/uL Low 150 - 393 K/uL [facility] RBC (Bld) [#/Vol] 3.68 10*6/uL Low [facility] WBC (Bld) [#/Vol] 6.16 10*3/uL 3.99 - 11.19 K/uL [facility] CHEM 7 (LYTES,BUN,CREA,GLUC) on 04-14-2025 Anion gap [Moles/Vol] 10 mmol/L 7 - 17 mmol/L [facility] Chloride [Moles/Vol] 106 mmol/L 98 - 10 8 mmol/L [facility] CO2 [Moles/Vol] 28 mmol/L 21 - 31 mmol/L [facility] Creatinine [Mass/Vol] 0.78 mg/dL 0.50 - 1.20 mg/dL [facility] eGFR, CKD-EPI, Female 76 - PINF [facility] Glucose [Mass/Vol] 98 mg/dL 70 - 179 mg/dL [facility] Osmolality Calc [Osmolality] 297 [facility] Potassium [Moles/Vol] 4.2 mmol/L 3.5 - 5.0 mmol/L [facility] Sodium [Moles/Vol] 140 mmol/L 135 - 145 mmol/L [facility] Urea nitrogen [Mass/Vol] 23 mg/dL 7 - 25 mg/dL [facility] Urea nitrogen/Creatinine [Mass ratio] 29 mg/mg [facility] IONIZED CALCIUM, WHOLE BLOOD on 04-14-2025 Calcium.ionized (Bld) [Moles/Vol] 4.19 mg/dL Low 4.60 - 5.30 mg/dL [facility] Interpretation and review of laboratory results Abnormal [facility] LACTATE DEHYDROGENASEon Interpretation and review of laboratory results Abnormal [facility] LDH Lactate to pyruvate reaction [Catalytic activity/Vol] 309 U/L High 100 - 190 U/L [facility] MAGNESIUMon 04-14-2025 Magnesium [Mass/Vol] 2.4 mg/dL 1.6 - 2 .6 mg/dL [facility] No Panel Informationon 04-14 RADIOLOGY RADIOLOGY [facility] RADIOLOGY RADIOLOGY [facility] Interpretation and review of laboratory results Normal [facility] PHOSPHATE, INORGANICon 04-14 Phosphate [Mass/Vol] 3.1 mg/dL 2.2 - 4 .6 mg/dL [facility] XR ELBOW LEFT 2 VIEWSon XR ELBOW [...] radius. Suspected nondisplaced ulnar styloid fracture. Normal [facility] XR Elbow - left 2 [facility] Radiology Study observation (narrative) [facility] XR FOREARM LEFT 2 VIEWSon XR [...] radius. Suspected nondisplaced ulnar styloid fracture. Normal [facility] XR HAND LEFT 3+ VIEWSon 07-0 XR [...] fracture. Nondisplaced fifth proximal phalanx fracture. Normal [facility] XR HUMERUS LEFT 2+ VIEWSon 0 04-14-2025 [...] glenohumeral arthritic changes with intra-articular body. Normal [facility] XR Hand - left 3 [facility] RADIOLOGY RADIOLOGY [facility] Radiology Study observation (narrative) [facility] XR Humerus - left [facility] Study observation (narrative) [facility] XR Radius and Ulna - left Vi ewson 04-14-2025 Radiology Study observation (narrative) [facility] XR SHOULDER LEFT 2+ VIEWSon 04-14-2025 XR [...] glenohumeral arthritic changes with intra-articular body. Normal [facility] XR Shoulder - left 2 [facility] 04-14-2025 Radiology Study observation (narrative) [facility] XR WRIST LEFT 3+ VIEWSon XR WRIST [...] metacarpal and fifth proximal phalanx fractures Normal [facility] XR WRIST LEFT 3+ VIEWS EXAM: XR [...] first metacarpal carpal and triscaphe articulations Normal [facility] XR Wrist - left 3 View[facility] RADIOLOGY RADIOLOGY [facility] Radiology Study observation [facility]narrative) [facility] Radiology Study observation (narrative) [facility] XR Wrist - left 3 ViewsOrder ed By: Mabel Kidd on 04-14-2025 [facility] Work Phone: CBC,PLATELETSon 04-13-2025 Hematocrit (Bld) [Volume fraction] 33.9 % Low 34.9-44.3 [facility] Comment on above: Performed By: #### I CA #### [facility] (DEFAULT) [address] [address] Hemoglobin (Bld) [Mass/Vol] 11.3 g/dL Low 11.4-15.2 [facility] Comment on above: Performed By: #### I CA #### [facility] (DEFAULT) [address] [place] [address]68 MCV (RBC) [Entitic vol] 92.1 fL Normal 79.6-97.7 [facility] Comment on above: Performed By: #### I CA #### [facility] (DEFAULT) [address] [place] [address] 34798 Mean Cell Hgb 30.7 pg Normal 25.9-33.9 [facility] Comment on above: Performed By: #### I CA #### [facility] (DEFAULT) [address] [place] [address] 42201 Mean Cell Hgb Conc 33.3 g/dL Normal 31.4-35.[address] [facility] Comment on above: Performed By: #### I CA #### [facility] (DEFAULT) [address] [place] [address] Platelet mean volume (Bld) [Entitic vol] 9.8 fL Normal 8.5-12.2 [facility] Comment on above: Performed By: #### I CA #### [facility] (DEFAULT) [address] [place] [address]75 Platelets (Bld) [#/Vol] 138 10*3/uL Low 150-393 [facility] Comment on above: Performed By: #### I CA #### [facility] (DEFAULT) [address] [place] [address] RBC (Bld) [#/Vol] 3.68 10*6/uL Low 3.91-5.04 [facility] Comment on above: Performed By: #### I CA #### [facility] (DEFAULT) [address] [place] [address] RBC Distribution 20.2 % High 10.8-14.9 [facility] Comment on above: Performed By: #### I CA #### [facility] (DEFAULT) [address] [place] [address] WBC (Bld) [#/Vol] 6.16 10*3/uL Normal 3.99-11.19 [facility] Comment on above: Performed By: #### I CA #### [facility] (DEFAULT) [address] [place] [address] Erythrocyte distribution width (RBC) [Ratio] 20.3 % High 10.8 - 14.9 % [facility] Hematocrit (Bld) [Volume fraction] 33.7 % Low 34.9 - 44.3 % [facility] Hemoglobin (Bld) [Mass/Vol] 11 g/dL Low 11.4 - 15.2 g/dL [facility] Interpretation and review of laboratory results Abnormal [facility] MCH (RBC) [Entitic mass] 30.1 pg 25.9 - 33.9 pg [facility] MCHC (RBC) [Mass/Vol] 32.6 g/dL 31.4 - 35.9 g/dL [facility] MCV (RBC) [Entitic vol] 92.3 fL 79.6 - 97.7 fL [facility] Platelet mean volume (Bld) [Entitic vol] 9.6 fL 8.5 - 12.2 fL [facility] Platelets (Bld) [#/Vol] 124 10*3/uL Low 150 - 393 K/uL [facility] RBC (Bld) [#/Vol] 3.65 10*6/uL Low [facility] WBC (Bld) [#/Vol] 6.91 10*3/uL 3.99 - 11.19 K/uL [facility] Hematocrit (Bld) [Volume fraction] 33.7 % Low 34.9-44.3 [facility] Comment on above: Performed By: #### L DO, MGO, IPB, CHM7 #### [facility] (DEFAULT) [address] [place] [address] Hemoglobin (Bld) [Mass/Vol] 11.0 g/dL Low 11.4-15.2 [facility] Comment on above: Performed By: #### L DO, MGO, IPB, CHM7 #### [facility] (DEFAULT) [address] [place] [address] 40513 MCV (RBC) [Entitic vol] 92.3 fL Normal 79.6-97.7 [facility] Comment on above: Performed By: #### L DO, MGO, IPB, CHM7 #### [facility] (DEFAULT) [address] [place] [address] 40504 Mean Cell Hgb 30.1 pg Normal 25.9-33.9 [facility] Comment on above: Performed By: #### L DO, MGO, IPB, CHM7 #### [facility] (DEFAULT) [address] [place] [address] 43456 Mean Cell Hgb Conc 32.6 g/dL Normal 31.4-35.[address] [facility] Comment on above: Performed By: #### L DO, MGO, IPB, CHM7 #### [facility] (DEFAULT) [address] [place] [address] 10788 Platelet mean volume (Bld) [Entitic vol] 9.6 fL Normal 8.5-12.2 [facility] Comment on above: Performed By: #### L DO, MGO, IPB, CHM7 #### [facility] (DEFAULT) [address] [place] [address] Platelets (Bld) [#/Vol] 124 10*3/uL Low 150-393 [facility] Comment on above: Performed By: #### L DO, MGO, IPB, CHM7 #### [facility] (DEFAULT) [address] [place] [address] RBC (Bld) [#/Vol] 3.65 10*6/uL Low 3.91-5.04 [facility] Comment on above: Performed By: #### L DO, MGO, IPB, CHM7 #### [facility] (DEFAULT) [address] [place] [address] 09564 RBC Distribution 20.3 % High 10.8-14.9 [facility] Comment on above: Performed By: #### L DO, MGO, IPB, CHM7 #### [facility] (DEFAULT) [address] [place] [address]885 WBC (Bld) [#/Vol] 6.91 10*3/uL Normal 3.99-11.19 [facility] Comment on above: Performed By: #### L DO, MGO, IPB, CHM7 #### [facility] (DEFAULT) [address] [place] [address] CHEM 7 (LYTES,BUN,CREA,GLUC) on 04-13-2025 Anion gap [Moles/Vol] 10 mmol/L Normal 7-17 [facility] Comment on above: Performed By: #### L DO, MGO, IPB, CHM7 #### [facility] (DEFAULT) [address] [place] [address] Chloride [Moles/Vol] 106 mmol/L Normal 98-108 [facility] Comment on above: Performed By: #### L DO, MGO, IPB, CHM7 #### [facility] (DEFAULT) [address] [place] [address] 17481 CO2 [Moles/Vol] 28 mmol/L Normal 21-31 [facility] Comment on above: Performed By: #### L DO, MGO, IPB, CHM7 #### [facility] (DEFAULT) [address] [place] [address] Creatinine [Mass/Vol] 0.78 mg/dL Normal 0.50-1.20 [facility] Comment on above: Performed By: #### L DO, MGO, IPB, CHM7 #### [facility] (DEFAULT) [address] [place] [address] GFR/1.73 sq M.predicted among non-blacks MDRD (S/P/Bld) [Vol rate/Area] 76 mL/min/{1.73_m2} Normal >=60 [facility] Comment on above: Result Comment: Repo rted eGFR is based on the CKD-EPI 2020 equation using creatinine, age, and sex. Performed By: #### L DO, MGO, IPB, CHM7 #### [facility] (DEFAULT) [address] [place] [address] Glucose [Mass/Vol] 98 mg/dL Normal Nonfastin -179 mg/dL; Fastin-99 [facility] Comment on above: Performed By: #### L DO, MGO, IPB, CHM7 #### [facility] (DEFAULT) [address] [place] [address] Osmolality [Osmolality] 297 mosm/kg Normal 278-305 [facility] Comment on above: Performed By: #### L DO, MGO, IPB, CHM7 #### [facility] (DEFAULT) [address] [place] [address] 30471 Potassium [Moles/Vol] 4.2 mmol/L Normal 3.5-5.0 [facility] Comment on above: Performed By: #### L DO, MGO, IPB, CHM7 #### [facility] (DEFAULT) [address] [place] [address] Sodium [Moles/Vol] 140 mmol/L Normal 135-[address] [facility] Comment on above: Performed By: #### L DO, MGO, IPB, CHM7 #### [facility] (DEFAULT) [address] [place] [address] Urea nitrogen [Mass/Vol] 23 mg/dL Normal 7-25 [facility] Comment on above: Performed By: #### L ARNEL TOBIAS IPB, LORENZAM7 #### [facility] (DEFAULT) [address] [place] [address] Urea nitrogen/Creatinine [Mass ratio] 29 mg/mg Normal [facility] Comment on above: Performed By: #### L ARNEL TOBIAS IPB, LORENZAM7 #### [facility] (DEFAULT) [address] [place] [address] Anion gap [Moles/Vol] 12 mmol/L 7 - 17 mmol/L [facility] Chloride [Moles/Vol] 107 mmol/L 98 - 10 8 mmol/L [facility] CO2 [Moles/Vol] 23 mmol/L 21 - 31 mmol/L [facility] Creatinine [Mass/Vol] 0.86 mg/dL 0.50 - 1.20 mg/dL [facility] eGFR, CKD-EPI, Female 68 - PINF [facility] Glucose [Mass/Vol] 119 mg/dL 70 - 179 mg/dL [facility] Osmolality Calc [Osmolality] 293 [facility] Potassium [Moles/Vol] 3.5 mmol/L 3.5 - 5.0 mmol/L [facility] Sodium [Moles/Vol] 138 mmol/L 135 - 145 mmol/L [facility] Urea nitrogen [Mass/Vol] 24 mg/dL 7 - 25 mg/dL [facility] Urea nitrogen/Creatinine [Mass ratio] 28 mg/mg [facility] Anion gap [Moles/Vol] 12 mmol/L Normal 7-17 [facility] Comment on above: Performed By: #### X M #### [facility] (DEFAULT) [address] [place] [address] Chloride [Moles/Vol] 107 mmol/L Normal 98-108 [facility] Comment on above: Performed By: #### X M #### [facility] (DEFAULT) [address] [place] [address] CO2 [Moles/Vol] 23 mmol/L Normal 21-31 [facility] Comment on above: Performed By: #### X M #### [facility] (DEFAULT) [address] [place] [address] 19673 Creatinine [Mass/Vol] 0.86 mg/dL Normal 0.50-1.20 [facility] Comment on above: Performed By: #### X M #### [facility] (DEFAULT) [address] [place] [address] GFR/1.73 sq M.predicted among non-blacks MDRD (S/P/Bld) [Vol rate/Area] 68 mL/min/{1.73_m2} Normal >=60 [facility] Comment on above: Result Comment: Repo rted eGFR is based on the CKD-EPI 2020 equation using creatinine, age, and sex. Performed By: #### X M #### [facility] (DEFAULT) [address] [place] [address] Glucose [Mass/Vol] 119 mg/dL Normal Nonfastin -179 mg/dL; Fastin-99 [facility] Comment on above: Performed By: #### X M #### [facility] (DEFAULT) [address] [place] [address] 16314 Osmolality [Osmolality] 293 mosm/kg Normal 278-305 [facility] Comment on above: Performed By: #### X M #### [facility] (DEFAULT) [address] [place] [address]45[address] Potassium [Moles/Vol] 3.5 mmol/L Normal 3.5-5.0 [facility] Comment on above: Performed By: #### X M #### [facility] (DEFAULT) [address] [place] [address] 31781 Sodium [Moles/Vol] 138 mmol/L Normal 135-[address] [facility] Comment on above: Performed By: #### X M #### [facility] (DEFAULT) [address] [place] [address] Urea nitrogen [Mass/Vol] 24 mg/dL Normal 7-25 [facility] Comment on above: Performed By: #### X M #### [facility] (DEFAULT) [address] [place] [address] Urea nitrogen/Creatinine [Mass ratio] 28 mg/mg Normal [facility] Comment on above: Performed By: #### X M #### [facility] (DEFAULT) [address] [place] [address] 08472 Culture, Blood (WB)on 2024 CUB Blood cultures x2, f rom two different sites No growth in 5 days. Normal [facility] Comment on above: Performed By: #### L 503.6005, L100.0100, L501.4021, M200.1000, L300.4310, L500.4050, L500.3400 ####[facility] [id number] [place], [address] IONIZED CALCIUM, WHOLE BLOOD on 04-13-2025 ICA 4.19 mg/dL Low 4.60-5.30 [facility] Comment on above: Performed By: #### I CA #### [facility] (DEFAULT) [address] [place] [address] Calcium.ionized (Bld) [Moles/Vol] 4.12 mg/dL Low 4.60 - 5.30 mg/dL [facility] Interpretation and review of laboratory results Abnormal [facility] ICA 4.12 mg/dL Low 4.60-5.30 [facility] Comment on above: Performed By: #### I CA ####[facility] (DEFAULT)[address] [place] [address] LACTATE DEHYDROGENASEon 03-17 LD Total 309 U/L High 100-190 [facility] Comment on above: Performed By: #### L DO, MGO, IPB, CHM7 #### [facility] (DEFAULT) [address] [place] [address] 8[address] MAGNESIUMon 04-13-2025 Magnesium [Mass/Vol] 2.4 mg/dL Normal 1.6-2.6 [facility] Comment on above: Performed By: #### L DO, MGO, IPB, CHM7 #### [facility] (DEFAULT) [address] [place] [address] 51170 Magnesium [Mass/Vol] 1.9 mg/dL 1.6 - 2 .6 mg/dL [facility] Magnesium [Mass/Vol] 1.9 mg/dL Normal 1.6-2.6 [facility] Comment on above: Performed By: #### X M #### [facility] (DEFAULT) [address] [place] [address] 69327 No Panel Informationon 04-13 Interpretation and review of laboratory results Normal [facility] PHOSPHATE, INORGANICon 04-13 Phosphorous 3.1 mg/dL Normal 2.2-4.6 [facility] Comment on above: Performed By: #### L DO, MGO, IPB, CHM7 #### [facility] (DEFAULT) [address] [place] [address] 49185 Phosphate [Mass/Vol] 2.9 mg/dL 2.2 - 4 .6 mg/dL [facility] Phosphorous 2.9 mg/dL Normal 2.2-4.6 [facility] Comment on above: Performed By: #### X M #### [facility] (DEFAULT) [address] [place] [address] 82700 PROTEIN TOTALon 04-13-2025 Interpretation and review of laboratory results Abnormal [facility] Protein [Mass/Vol] 4.5 g/dL Low 6.4 - 8.3 g/dL [facility] Protein [Mass/Vol] 4.5 g/dL Low 6.4-8.[address] [facility] Comment on above: Performed By: #### X M #### [facility] (DEFAULT) [address] [place] [address] Portable XR Chest Viewson RADIOLOGY RADIOLOGY [facility] Radiology Study observation (narrative) [facility] XR CHEST 1 VIEW PORTABLEon 0 04-13-2025 [...] have reviewed and approved this report. Normal [facility] CBC,PLATELETSon 04-12-2025 Erythrocyte distribution width (RBC) [Ratio] 20.1 % High 10.8 - 14.9 % [facility] Hematocrit (Bld) [Volume fraction] 33.7 % Low 34.9 - 44.3 % [facility] Hemoglobin (Bld) [Mass/Vol] 11.3 g/dL Low 11.4 - 15.2 g/dL [facility] Interpretation and review of laboratory results Abnormal [facility] MCH (RBC) [Entitic mass] 30.7 pg 25.9 - 33.9 pg [facility] MCHC (RBC) [Mass/Vol] 33.5 g/dL 31.4 - 35.9 g/dL [facility] MCV (RBC) [Entitic vol] 91.6 fL 79.6 - 97.7 fL [facility] Platelet mean volume (Bld) [Entitic vol] 9.7 fL 8.5 - 12.2 fL [facility] Platelets (Bld) [#/Vol] 124 10*3/uL Low 150 - 393 K/uL [facility] RBC (Bld) [#/Vol] 3.68 10*6/uL Low [facility] WBC (Bld) [#/Vol] 6.39 10*3/uL 3.99 - 11.19 K/uL [facility] Hematocrit (Bld) [Volume fraction] 33.7 % Low 34.9-44.3 [facility] Comment on above: Performed By: #### L DO, MGO, IPB, CHM7 #### [facility] (DEFAULT) [address] [address] Hemoglobin (Bld) [Mass/Vol] 11.3 g/dL Low 11.4-15.2 [facility] Comment on above: Performed By: #### L DO, MGO, IPB, CHM7 #### [facility] (DEFAULT) [address] [address] MCV (RBC) [Entitic vol] 91.6 fL Normal 79.6-97.7 [facility] Comment on above: Performed By: #### L DO, MGO, IPB, CHM7 #### [facility] (DEFAULT) [address] [place] [address] 58903 Mean Cell Hgb 30.7 pg Normal 25.9-33.9 [facility] Comment on above: Performed By: #### L DO, MGO, IPB, CHM7 #### [facility] (DEFAULT) [address] [address] Mean Cell Hgb Conc 33.5 g/dL Normal 31.4-35.[address] [facility] Comment on above: Performed By: #### L DO, MGO, IPB, CHM7 #### [facility] (DEFAULT) [address] [place] [address]102 Platelet mean volume (Bld) [Entitic vol] 9.7 fL Normal 8.5-12.2 [facility] Comment on above: Performed By: #### L DO, MGO, IPB, CHM7 #### [facility] (DEFAULT) [address] [place] [address]60 Platelets (Bld) [#/Vol] 124 10*3/uL Low 150-393 [facility] Comment on above: Performed By: #### L DO, MGO, IPB, CHM7 #### [facility] (DEFAULT) [address] [place] [address] 15593 RBC (Bld) [#/Vol] 3.68 10*6/uL Low 3.91-5.04 [facility] Comment on above: Performed By: #### L DO, MGO, IPB, CHM7 #### [facility] (DEFAULT) [address] [place] [address] 00654 RBC Distribution 20.1 % High 10.8-14.9 [facility] Comment on above: Performed By: #### L DO, MGO, IPB, CHM7 #### [facility] (DEFAULT) [address] [place] [address] 92292 WBC (Bld) [#/Vol] 6.39 10*3/uL Normal 3.99-11.19 [facility] Comment on above: Performed By: #### L DO, MGO, IPB, CHM7 #### [facility] (DEFAULT) [address] [place] [address] 44044 CHEM 7 (LYTES,BUN,CREA,GLUC) on 04-12-2025 Anion gap [Moles/Vol] 12 mmol/L 7 - 17 mmol/L [facility] Chloride [Moles/Vol] 110 mmol/L High 98 - 10 8 mmol/L [facility] CO2 [Moles/Vol] 23 mmol/L 21 - 31 mmol/L [facility] Creatinine [Mass/Vol] 0.74 mg/dL 0.50 - 1.20 mg/dL [facility] eGFR, CKD-EPI, Female 81 - PINF [facility] Glucose [Mass/Vol] 83 mg/dL 70 - 179 mg/dL [facility] Interpretation and review of laboratory results Abnormal [facility] Osmolality Calc [Osmolality] 297 [facility] Potassium [Moles/Vol] 3.7 mmol/L 3.5 - 5.0 mmol/L [facility] Sodium [Moles/Vol] 141 mmol/L 135 - 145 mmol/L [facility] Urea nitrogen [Mass/Vol] 25 mg/dL 7 - 25 mg/dL [facility] Urea nitrogen/Creatinine [Mass ratio] 34 mg/mg [facility] Anion gap [Moles/Vol] 12 mmol/L Normal 7-17 [facility] Comment on above: Performed By: #### L DO, MGO, IPB, CHM7 #### [facility] (DEFAULT) [address] [place] [address] 52763 Chloride [Moles/Vol] 110 mmol/L High 98-108 [facility] Comment on above: Performed By: #### L DO, MGO, IPB, CHM7 #### [facility] (DEFAULT) [address] [place] [address] CO2 [Moles/Vol] 23 mmol/L Normal 21-31 [facility] Comment on above: Performed By: #### L DO, MGO, IPB, CHM7 #### [facility] (DEFAULT) [address] [place] [address] 76305 Creatinine [Mass/Vol] 0.74 mg/dL Normal 0.50-1.20 [facility] Comment on above: Performed By: #### L DO, MGO, IPB, CHM7 #### [facility] (DEFAULT) [address] [place] [address] 63467 GFR/1.73 sq M.predicted among non-blacks MDRD (S/P/Bld) [Vol rate/Area] 81 mL/min/{1.73_m2} Normal >=60 [facility] Comment on above: Result Comment: Repo rted eGFR is based on the CKD-EPI 2020 equation using creatinine, age, and sex. Performed By: #### L DO, MGO, IPB, CHM7 #### [facility] (DEFAULT) [address] [place] [address] 65628 Glucose [Mass/Vol] 83 mg/dL Normal Nonfastin -179 mg/dL; Fastin-99 [facility] Comment on above: Performed By: #### L DO, MGO, IPB, CHM7 #### [facility] (DEFAULT) [address] [place] [address] 23973 Osmolality [Osmolality] 297 mosm/kg Normal 278-305 [facility] Comment on above: Performed By: #### L DO, MGO, IPB, CHM7 #### [facility] (DEFAULT) [address] [place] [address] 35692 Potassium [Moles/Vol] 3.7 mmol/L Normal 3.5-5.0 [facility] Comment on above: Performed By: #### L DO, MGO, IPB, CHM7 #### [facility] (DEFAULT) [address] [place] [address] 54130 Sodium [Moles/Vol] 141 mmol/L Normal 135-[address] [facility] Comment on above: Performed By: #### L DO, MGO, IPB, CHM7 #### [facility] (DEFAULT) [address] [place] [address] 50583 Urea nitrogen [Mass/Vol] 25 mg/dL Normal 7-25 [facility] Comment on above: Performed By: #### L DO, MGO, IPB, CHM7 #### [facility] (DEFAULT) [address] [place] [address], [place] [address] Urea nitrogen/Creatinine [Mass ratio] 34 mg/mg Normal [facility] Comment on above: Performed By: #### L , ARNEL, IPOlga, CHM7 #### [facility] (DEFAULT) [address] [place] [address] CT CHEST WITHOUT CONTRASTon 04-12-2025 CT CHEST [...] right and small left pleural effusions. Normal [facility] CT Chest WO contraston 04-12 RADIOLOGY RADIOLOGY [facility] Radiology Study observation (narrative) [facility] IMMUNOCOMPROMISED RESPIRATOR Y PANELon 04-12-2025 Adenovirus - Pcr Not detected Normal Not Detected [facility] Comment on above: Order Comment: Viral transport [...] assay. Performed By: #### I CRESP #### [facility] (DEFAULT) [address] [address] Bordetella Parapertussis Not detected Normal Not Detected [facility] Comment on above: Order Comment: Viral transport [...] assay. Performed By: #### I CRESP #### [facility] (DEFAULT) [address] [address] Bordetella Pertussis Not detected Normal Not Detected [facility] Comment on above: Order Comment: Viral transport [...] assay. Performed By: #### I CRESP #### [facility] (DEFAULT) [address] [address] Chlamydia Pneumoniae Not detected Normal Not Detected [facility] Comment on above: Order Comment: Viral transport [...] assay. Performed By: #### I CRESP #### [facility] (DEFAULT) [address] [place] [address]36 Coronavirus 229E Not detected Normal Not Detected [facility] Comment on above: Order Comment: Viral transport [...] assay. Performed By: #### I CRESP #### [facility] (DEFAULT) [address] [place] [address] 61968 Coronavirus Hku1 Not detected Normal Not Detected [facility] Comment on above: Order Comment: Viral transport [...] assay. Performed By: #### I CRESP #### [facility] (DEFAULT) [address] [place] [address] 70356 Coronavirus Nl63 Not detected Normal Not Detected [facility] Comment on above: Order Comment: Viral transport [...] assay. Performed By: #### I CRESP #### [facility] (DEFAULT) [address] [place] [address] 97337 Coronavirus Oc43 Not detected Normal Not Detected [facility] Comment on above: Order Comment: Viral transport [...] Performed By: #### I CRESP #### [facility] (DEFAULT) [address] [place] [address] 98175 Influenza A - Pcr Not detected Normal Not Detected [facility] Comment on above: Order Comment: Viral transport [...] assay. Performed By: #### I CRESP #### [facility] (DEFAULT) [address] [place] [address] 22009 Influenza B - Pcr Not detected Normal Not Detected [facility] Comment on above: Order Comment: Viral transport [...] Performed By: #### I CRESP #### [facility] (DEFAULT) [address] [place] [address] 59222 Metapneumovirus - Pcr Not detected Normal Not Detected [facility] Comment on above: Order Comment: Viral transport [...] Performed By: #### I CRESP #### [facility] (DEFAULT) [address] [address] Mycoplasma Pneumoniae Not detected Normal Not Detected [facility] Comment on above: Order Comment: Viral transport [...] Performed By: #### I CRESP #### [facility] (DEFAULT) [address] [address] Parainfluenza 1 - Pcr Not detected Normal Not Detected [facility] Comment on above: Order Comment: Viral transport [...] Performed By: #### I CRESP #### [facility] (DEFAULT) [address] [place] [address] Parainfluenza 2 - Pcr Not detected Normal Not Detected [facility] Comment on above: Order Comment: Viral transport [...] Performed By: #### I CRESP #### [facility] (DEFAULT) [address] [address] Parainfluenza 3 - Pcr Not detected Normal Not Detected [facility] Comment on above: Order Comment: Viral transport [...] Performed By: #### I CRESP #### [facility] (DEFAULT) [address] [place] [address] Parainfluenza 4 - Pcr Not detected Normal Not Detected [facility] Comment on above: Order Comment: Viral transport [...] Performed By: #### I CRESP #### [facility] (DEFAULT) [address] [place] [address] Rhinovirus/Enterovirus - PCR Not detected Normal Not Detected [facility] Comment on above: Order Comment: Viral transport [...] assay. Performed By: #### I CRESP #### [facility] (DEFAULT) [address] [address] Rsv - Pcr Not detected Normal Not Detected [facility] Comment on above: Order Comment: Viral transport [...] assay. Performed By: #### I CRESP #### [facility] (DEFAULT) [address] [address] SARS-CoV-2 (COVID-19) RNA LANE+probe Ql (Unsp spec) Not detected Normal NOT DETECTED [facility] Comment on above: Order Comment: Viral transport [...] assay. Performed By: #### I CRESP #### [facility] (DEFAULT) [address] [address] IONIZED CALCIUM, WHOLE BLOOD Ordered By: Megan Santana on 04-12-2025 Calcium.ionized (Bld) [Moles/Vol] 4.34 mg/dL Low 4.60 - 5.30 mg/dL [facility] Interpretation and review of laboratory results Abnormal [facility] IONIZED CALCIUM, WHOLE BLOOD on 04-12-2025 ICA 4.34 mg/dL Low 4.60-5.30 [facility] Comment on above: Performed By: #### L ARNEL TOBIAS IPB, CHM7 #### [facility] (DEFAULT) [address] [place] [address] MAGNESIUMon 04-12-2025 Magnesium [Mass/Vol] 2.2 mg/dL 1.6 - 2 .6 mg/dL [facility] Magnesium [Mass/Vol] 2.2 mg/dL Normal 1.6-2.6 [facility] Comment on above: Performed By: #### L ARNEL TOBIAS IPB, CHM7 #### [facility] (DEFAULT) [address] [place] [address] No Panel Informationon 04-12 Interpretation and review of laboratory results Normal [facility] PHOSPHATE, INORGANICon 04-12 Phosphate [Mass/Vol] 3 mg/dL 2.2 - 4 .6 mg/dL [facility] Phosphorous 3.0 mg/dL Normal 2.2-4.6 [facility] Comment on above: Performed By: #### L ARNEL TOBIAS IPB, CHM7 #### [facility] (DEFAULT) [address] [place] [address] Portable XR Chest Viewson RADIOLOGY RADIOLOGY [facility] Radiology Study observation (narrative) [facility] Respiratory virus DNA+RNA NA A+probe Nom (Unsp spec)Ordered By: Saloni Perdue on 04-12-[address]+probe Nom (Unsp spec) Not detected Not Detected [facility] B. parapertussis DNA LANE+probe Ql (Unsp spec) Not detected Not Detected [facility] B. pertussis DNA LANE+probe Ql (Unsp spec) Not detected Not Detected [facility] C. pneumoniae DNA LANE+probe Ql (Unsp spec) Not detected Not Detected [facility] FLUAV RNA LANE+probe Ql (Unsp spec) Not detected Not Detected [facility] FLUBV RNA LANE+probe Ql (Unsp spec) Not detected Not Detected [facility] HCoV 229E RNA LANE+non-probe Ql (Nph) Not detected Not Detected [facility] HCoV HKU1 RNA LANE+non-probe Ql (Nph) Not detected Not Detected [facility] HCoV NL63 RNA LANE+non-probe Ql (Nph) Not detected Not Detected [facility] HCoV OC43 RNA LANE+non-probe Ql (Nph) Not detected Not Detected [facility] hMPV A RNA LANE+probe Ql (Unsp spec) Not detected Not Detected [facility] Interpretation and review of laboratory results Normal [facility] M. pneumoniae DNA LANE+probe Ql (Unsp spec) Not detected Not Detected [facility] Parainfluenza virus [address]+probe Ql (Unsp spec) Not detected Not Detected [facility] Parainfluenza virus [address]+probe Ql (Unsp spec) Not detected Not Detected [facility] Parainfluenza virus [address] L[address]+probe Ql (Unsp spec) Not detected Not Detected [facility] Parainfluenza virus 4 RNA LANE+probe Ql (Unsp spec) Not detected Not Detected [facility] Rhinovirus+Enterovirus RNA LANE+probe Ql (Unsp spec) Not detected Not Detected [facility] RSV RNA LANE+probe Ql (Unsp spec) Not detected Not Detected [facility] SARS-CoV-2 (COVID-19) RNA LANE+probe Ql (Unsp spec) Not detected [facility] XR CHEST 1 VIEW PORTABLEon 0 [...] fusion hardware is partially included in the [id number]. IMPRESSION: Interval development of dense consolidative and atelectatic opacities in the lower right lung. Consider mild aspiration or mucous plugging. Enlarging right greater than left pleural effusions. Normal [facility] XR Cervical spine 2 Viewson 04-12-2025 RADIOLOGY RADIOLOGY [facility] Radiology Study observation (narrative) [facility] XR Cervical spine 2 ViewsOrd ered By: Jagdeep Gonzalez on 04-12-2025 [facility] Work Phone: XR SPINE CERVICAL 2-3 VIEWSo [...] posterior fusion C4-T2 without acute complication. Normal [facility] *ARTERIAL LINEon 04-11-2025 [facility] CBC,PLATELETSon 04-11-2025 Erythrocyte distribution width (RBC) [Ratio] 19.7 % High 10.8 - 14.9 % [facility] Hematocrit (Bld) [Volume fraction] 30.9 % Low 34.9 - 44.3 % [facility] Hemoglobin (Bld) [Mass/Vol] 10.4 g/dL Low 11.4 - 15.2 g/dL [facility] Interpretation and review of laboratory results Abnormal [facility] MCH (RBC) [Entitic mass] 30.3 pg 25.9 - 33.9 pg [facility] MCHC (RBC) [Mass/Vol] 33.7 g/dL 31.4 - 35.9 g/dL [facility] MCV (RBC) [Entitic vol] 90.1 fL 79.6 - 97.7 fL [facility] Platelet mean volume (Bld) [Entitic vol] 9.9 fL 8.5 - 12.2 fL [facility] Platelets (Bld) [#/Vol] 130 10*3/uL Low 150 - 393 K/uL [facility] RBC (Bld) [#/Vol] 3.43 10*6/uL Low [facility] WBC (Bld) [#/Vol] 5.22 10*3/uL 3.99 - 11.19 K/uL [facility] Hematocrit (Bld) [Volume fraction] 30.9 % Low 34.9-44.3 [facility] Comment on above: Performed By: #### Leonel MUNOZ #### [facility] (DEFAULT) [address] [address] Hemoglobin (Bld) [Mass/Vol] 10.4 g/dL Low 11.4-15.2 [facility] Comment on above: Performed By: #### Leonel SVALL #### [facility] (DEFAULT) [address] [address] MCV (RBC) [Entitic vol] 90.1 fL Normal 79.6-97.7 [facility] Comment on above: Performed By: #### Leonel SVALL #### [facility] (DEFAULT) [address] [address] Mean Cell Hgb 30.3 pg Normal 25.9-33.9 [facility] Comment on above: Performed By: #### Leonel SVALL #### [facility] (DEFAULT) [address] [address] Mean Cell Hgb Conc 33.7 g/dL Normal 31.4-35.[address] [facility] Comment on above: Performed By: #### G SVALL #### [facility] (DEFAULT) [address] [address] Platelet mean volume (Bld) [Entitic vol] 9.9 fL Normal 8.5-12.2 [facility] Comment on above: Performed By: #### G SVALL #### [facility] (DEFAULT) [address] [address] Platelets (Bld) [#/Vol] 130 10*3/uL Low 150-393 [facility] Comment on above: Performed By: #### G SVALL #### [facility] (DEFAULT) [address] [address] RBC (Bld) [#/Vol] 3.43 10*6/uL Low 3.91-5.04 [facility] Comment on above: Performed By: #### G SVALL #### [facility] (DEFAULT) [address] [address] RBC Distribution 19.7 % High 10.8-14.9 [facility] Comment on above: Performed By: #### G SVALL #### [facility] (DEFAULT) [address] [address] WBC (Bld) [#/Vol] 5.22 10*3/uL Normal 3.99-11.19 [facility] Comment on above: Performed By: #### G SVALL #### [facility] (DEFAULT) [address] [address] Erythrocyte distribution width (RBC) [Ratio] 18.7 % High 10.8 - 14.9 % [facility] Hematocrit (Bld) [Volume fraction] 32 % Low 34.9 - 44.3 % [facility] Hemoglobin (Bld) [Mass/Vol] 10.9 g/dL Low 11.4 - 15.2 g/dL [facility] Interpretation and review of laboratory results Abnormal [facility] MCH (RBC) [Entitic mass] 30.6 pg 25.9 - 33.9 pg [facility] MCHC (RBC) [Mass/Vol] 34.1 g/dL 31.4 - 35.9 g/dL [facility] MCV (RBC) [Entitic vol] 89.9 fL 79.6 - 97.7 fL [facility] Platelet mean volume (Bld) [Entitic vol] 8.9 fL 8.5 - 12.2 fL [facility] Platelets (Bld) [#/Vol] 79 10*3/uL Low 150 - 393 K/uL [facility] RBC (Bld) [#/Vol] 3.56 10*6/uL Low [facility] WBC (Bld) [#/Vol] 6.03 10*3/uL 3.99 - 11.19 K/uL [facility] Hematocrit (Bld) [Volume fraction] 32.0 % Low 34.9-44.3 [facility] Comment on above: Performed By: #### H [facility] ####[facility] (DEFAULT)[address] [place] [address] Hemoglobin (Bld) [Mass/Vol] 10.9 g/dL Low 11.4-15.2 [facility] Comment on above: Performed By: #### H [facility] ####[facility] (DEFAULT)[address] [place] [address] MCV (RBC) [Entitic vol] 89.9 fL Normal 79.6-97.7 [facility] Comment on above: Performed By: #### H [facility] ####[facility] (DEFAULT)[address] [place] [address] Mean Cell Hgb 30.6 pg Normal 25.9-33.9 [facility] Comment on above: Performed By: #### H EMO ####[facility] (DEFAULT)[address] [place] [address] Mean Cell Hgb Conc 34.1 g/dL Normal 31.4-35.[address] [facility] Comment on above: Performed By: #### H EMOGC ####[facility] (DEFAULT)[address] [place] [address] Platelet mean volume (Bld) [Entitic vol] 8.9 fL Normal 8.5-12.2 [facility] Comment on above: Result Comment: This is an appended report. These results have been appended to a previously preliminary verified report. Performed By: #### H EMO ####[facility] (DEFAULT)[address] [place] [address] Platelets (Bld) [#/Vol] 79 10*3/uL Low 150-393 [facility] Comment on above: Result Comment: Resu lts inconsistent with previous results. This is an appended report. These results have been appended to a previously preliminary verified report. Performed By: #### H EMO ####[facility] (DEFAULT)[address] [place] [address] RBC (Bld) [#/Vol] 3.56 10*6/uL Low 3.91-5.04 [facility] Comment on above: Performed By: #### H EMOGC ####[facility] (DEFAULT)[address] [place] [address] RBC Distribution 18.7 % High 10.8-14.9 [facility] Comment on above: Performed By: #### H EMOGC ####[facility] (DEFAULT)[address] [place] [address] WBC (Bld) [#/Vol] 6.03 10*3/uL Normal 3.99-11.19 [facility] Comment on above: Performed By: #### H EMOGC ####[facility] (DEFAULT)[address] [place] [address] CHEM 7 (LYTES,BUN,CREA,GLUC) on 04-11-2025 Anion gap [Moles/Vol] 12 mmol/L 7 - 17 mmol/L [facility] Chloride [Moles/Vol] 110 mmol/L High 98 - 10 8 mmol/L [facility] CO2 [Moles/Vol] 21 mmol/L 21 - 31 mmol/L [facility] Creatinine [Mass/Vol] 0.66 mg/dL 0.50 - 1.20 mg/dL [facility] eGFR, CKD-EPI, Female 88 - PINF [facility] Glucose [Mass/Vol] 113 mg/dL 70 - 179 mg/dL [facility] Osmolality Calc [Osmolality] 298 [facility] Potassium [Moles/Vol] 3.6 mmol/L 3.5 - 5.0 mmol/L [facility] Sodium [Moles/Vol] 139 mmol/L 135 - 145 mmol/L [facility] Urea nitrogen [Mass/Vol] 31 mg/dL High 7 - 25 mg/dL [facility] Urea nitrogen/Creatinine [Mass ratio] 47 mg/mg [facility] Anion gap [Moles/Vol] 12 mmol/L Normal 7-17 [facility] Comment on above: Performed By: #### L DO, MGO, IPB, CHM7 #### [facility] (DEFAULT) [address] [place] [address] Chloride [Moles/Vol] 110 mmol/L High 98-108 [facility] Comment on above: Performed By: #### L DO, MGO, IPB, CHM7 #### [facility] (DEFAULT) [address] [place] [address] CO2 [Moles/Vol] 21 mmol/L Normal 21-31 [facility] Comment on above: Performed By: #### L DO, MGO, IPB, CHM7 #### [facility] (DEFAULT) [address] [place] [address] Creatinine [Mass/Vol] 0.66 mg/dL Normal 0.50-1.20 [facility] Comment on above: Performed By: #### L DO, MGO, IPB, CHM7 #### [facility] (DEFAULT) [address] [place] [address] GFR/1.73 sq M.predicted among non-blacks MDRD (S/P/Bld) [Vol rate/Area] 88 mL/min/{1.73_m2} Normal >=60 [facility] Comment on above: Result Comment: Repo rted eGFR is based on the CKD-EPI 2020 equation using creatinine, age, and sex. Performed By: #### L DO, MGO, IPB, CHM7 #### [facility] (DEFAULT) [address] [place] [address] Glucose [Mass/Vol] 113 mg/dL Normal Nonfastin -179 mg/dL; Fastin-99 [facility] Comment on above: Performed By: #### L DO, MGO, IPB, CHM7 #### [facility] (DEFAULT) [address] [place] [address] Osmolality [Osmolality] 298 mosm/kg Normal 278-305 [facility] Comment on above: Performed By: #### L DO, MGO, IPB, CHM7 #### [facility] (DEFAULT) [address] [place] [address] Potassium [Moles/Vol] 3.6 mmol/L Normal 3.5-5.0 [facility] Comment on above: Performed By: #### L DO, MGO, IPB, CHM7 #### [facility] (DEFAULT) [address] [place] [address] Sodium [Moles/Vol] 139 mmol/L Normal 135-[address] [facility] Comment on above: Performed By: #### L DO, MGO, IPB, CHM7 #### [facility] (DEFAULT) [address] [place] [address] Urea nitrogen [Mass/Vol] 31 mg/dL High 7-25 [facility] Comment on above: Performed By: #### L DO, MGO, IPB, CHM7 #### [facility] (DEFAULT) [address] [place] [address] Urea nitrogen/Creatinine [Mass ratio] 47 mg/mg Normal [facility] Comment on above: Performed By: #### L DO, MGO, IPB, CHM7 #### [facility] (DEFAULT) [address] [place] [address] CKon 04-11-2025 CK [Catalytic activity/Vol] 840 U/L High 30 - 184 U/L [facility] CK [Catalytic activity/Vol] 840 U/L High 30-184 [facility] Comment on above: Order Comment: While on Propofol. Performed By: #### L DO, MGO, IPB, CHM7 #### [facility] (DEFAULT) [address] [place] [address] GLUCOSE POCon 04-11-2025 Glucose [Mass/Vol] 123 mg/dL 70 - 179 mg/dL [facility] POC Sample Type CAPBL [facility] IONIZED CALCIUM, WHOLE BLOOD Ordered By: Jossy Ortega on 04-11-2025 Calcium.ionized (Bld) [Moles/Vol] 4.63 mg/dL 4.60 - 5.30 mg/dL [facility] Interpretation and review of laboratory results Normal [facility] IONIZED CALCIUM, WHOLE BLOOD on 04-11-2025 ICA 4.63 mg/dL Normal 4.60-5.30 [facility] Comment on above: Performed By: #### G SVALL #### [facility] (DEFAULT) [address] [place] [address] MAGNESIUMon 04-11-2025 Magnesium [Mass/Vol] 2.3 mg/dL 1.6 - 2 .6 mg/dL [facility] Magnesium [Mass/Vol] 2.3 mg/dL Normal 1.6-2.6 [facility] Comment on above: Performed By: #### L DO MGO IPBALJIT Espinoza #### [facility] (DEFAULT) [address] [place] [address] No Panel Informationon 04-11 [facility] Interpretation and review of laboratory results Abnormal [facility] Interpretation and review of laboratory results Normal [facility] PHOSPHATE, INORGANICon 04-11 Phosphate [Mass/Vol] 3.1 mg/dL 2.2 - 4 .6 mg/dL [facility] Phosphorous 3.1 mg/dL Normal 2.2-4.6 [facility] Comment on above: Performed By: #### L ARNEL TOBIAS IPB, BALJIT #### [facility] (DEFAULT) [address] [place] [address] PREPARE TO TRANSFUSE PLATELE Ton 04-11-2025 ABO/RH(D) TYPE Positive [facility] BLOOD COMPONENT TYPE Irradiated Leukored uced Platelet Apheresis [facility] EXPIRATION DATE [id number] [facility] Product ABO/RH(D) Positive [facility] Product ABO/RH(D) NUMBER 6200 [facility] PRODUCT CODE [id number] [facility] UNIT NUMBER [id number] [facility] UNIT STATUS transfused [facility] PT,INR,PTTon 04-11-2025 aPTT Coag (PPP) [Time] 25.1 s [facility] INR Coag (Bld) [Relative time] 1.1 {INR} 0.9 - 1.1 [facility] Interpretation and review of laboratory results Normal [facility] PT Coag (PPP) [Time] 14.1 s [facility] aPTT Coag (Bld) [Time] 25.1 s Normal 24.0-34.3 [facility] Comment on above: Performed By: #### G SVALL #### [facility] (DEFAULT) [address] [place] [address] INR Coag (PPP) [Relative time] 1.1 {INR} Normal 0.9-1.1 [facility] Comment on above: Performed By: #### G SVALL #### [facility] (DEFAULT) [address] [place] [address] PT Coag (PPP) [Time] 14.1 s Normal 11.9-14.2 [facility] Comment on above: Performed By: #### G SVALL #### [facility] (DEFAULT) [address] [place] [address] Portable XR Chest Viewson RADIOLOGY RADIOLOGY [facility] Portable XR Chest ViewsOrder ed By: Ubaldo Pennington on 04-11-2025 [facility] Work Phone: TRIGLYCERIDEon 04-11-2025 Triglyceride [Mass/Vol] 92 mg/dL NINF - 150 mg/dL [facility] Triglyceride [Mass/Vol] 92 mg/dL Normal <150 [facility] Comment on above: Order Comment: While on Propofol. Result Comment: [<15 0 mg/dL: Desirable] [150-199 mg/dL: Borderline] [200-499 mg/dL: High] [>500 mg/dL: Very High] Performed By: #### L DO, MGO, IPB, CHM7 #### [facility] (DEFAULT) [address] [place] [address] XR CHEST 1 VIEW PORTABLEon 0 04-11-2025 [...] overlying the upper SVC. No pneumothorax. Normal [facility] ARTERIAL BLOOD GAS (FULL GARCIA EL)on 04-10-2025 Base excess Calc (Bld) [Moles/Vol] -3.6000 mmol/L Low -3.0 - 3.0 mmol/L [facility] Calcium.ionized (Bld) [Mass/Vol] 4.38 mg/dL Low 4.60 - 5.30 mg/dL [facility] Carboxyhemoglobin (Bld) [Mass fraction] 1.3 % NINF - 1.5 % [facility] CO2 (Bld) [Partial pressure] 39 mm[Hg] [facility] Glucose [Mass/Vol] 141 mg/dL 70 - 179 mg/dL [facility] HCO3 (Bld) [Moles/Vol] 21 mmol/L Low 22 - 28 mmol/L [facility] Hematocrit (Bld) [Volume fraction] 32 % Low 34 - 46 % [facility] Hemoglobin (Bld) [Mass/Vol] 10.2 g/dL Low 11.4 - 15.2 g/dL [facility] Interpretation and review of laboratory results Abnormal [facility] Lactate [Moles/Vol] 1.3 mmol/L 0.5 - 1. 6 mmol/L [facility] Methemoglobin (Bld) [Mass fraction] 1.2 % NINF - 1.5 % [facility] Oxygen (Bld) [Partial pressure] 158 mm[Hg] High [facility] Oxygen saturation in Blood 99 % High 94 - 98 % [facility] Oxyhemoglobin 97 % 94 - 98 % [facility] pH (Bld) 7.35 [pH] 7.35 - 7.45 [facility] Potassium [Moles/Vol] 3.7 mmol/L 3.5 - 5.0 mmol/L [facility] Sodium [Moles/Vol] 140 mmol/L 135 - 145 mmol/L [facility] Specimen source Nom (Unsp spec) Arterial [facility] Base Excess -3.6 mmol/L Low -3.0-3.0 [facility] Comment on above: Performed By: #### L DO, MGO, IPB, CHM7 #### [facility] (DEFAULT) [address] [place] [address] Carboxyhemoglobin 1.3 % Normal <=1.5 [facility] Comment on above: Performed By: #### L DO, MGO, IPB, CHM7 #### [facility] (DEFAULT) [address] [place] [address] Glucose [Mass/Vol] 141 mg/dL Normal Nonfastin g Glucose: 70-179 [facility] Comment on above: Performed By: #### L DO, MGO, IPB, CHM7 #### [facility] (DEFAULT) [address] [place] [address] HCO3 (Bld) [Moles/Vol] 21 mmol/L Low 22-28 [facility] Comment on above: Performed By: #### L DO, MGO, IPB, CHM7 #### [facility] (DEFAULT) [address] [place] [address] Hematocrit (Bld) [Volume fraction] 32 % Low 34-46 [facility] Comment on above: Performed By: #### L DO, MGO, IPB, CHM7 #### [facility] (DEFAULT) [address] [place] [address] Hemoglobin (Bld) [Mass/Vol] 10.2 g/dL Low 11.4-15.2 [facility] Comment on above: Performed By: #### L DO, MGO, IPB, CHM7 #### [facility] (DEFAULT) [address] [place] [address] Ionized Calcium, Whole Blood 4.38 mg/dL Low 4.60-5.30 [facility] Comment on above: Performed By: #### L DO, MGO, IPB, CHM7 #### [facility] (DEFAULT) [address] [place] [address] Lactate, Whole Blood 1.3 mmol/L Normal 0.5-1.6 [facility] Comment on above: Performed By: #### L DO, MGO, IPB, CHM7 #### [facility] (DEFAULT) [address] [place] [address] Methemoglobin 1.2 % Normal <=1.5 [facility] Comment on above: Performed By: #### L DO, MGO, IPB, CHM7 #### [facility] (DEFAULT) [address] [place] [address] Oxygen saturation in Blood 99 % High 94-98 [facility] Comment on above: Performed By: #### L DO, MGO, IPB, CHM7 #### [facility] (DEFAULT) [address] [place] [address] Oxyhemoglobin 97 % Normal 94-98 [facility] Comment on above: Performed By: #### L DO, MGO, IPB, CHM7 #### [facility] (DEFAULT) [address] [place] [address] pCO2 39 mm Hg Normal 32-48 [facility] Comment on above: Performed By: #### L DO, MGO, IPB, CHM7 #### [facility] (DEFAULT) [address] [place] [address] 56637 pH, Arterial 7.35 Normal 7.35-7.45 [facility] Comment on above: Performed By: #### L DO, MGO, IPB, CHM7 #### [facility] (DEFAULT) [address] [place] [address] 02560 pO2 158 mm Hg High 83-108 [facility] Comment on above: Performed By: #### L DO, MGO, IPB, CHM7 #### [facility] (DEFAULT) [address] [place] [address] 09998 Potassium [Moles/Vol] 3.7 mmol/L Normal 3.5-5.0 [facility] Comment on above: Performed By: #### L DO, MGO, IPB, CHM7 #### [facility] (DEFAULT) [address] [place] [address] 54234 Sodium [Moles/Vol] 140 mmol/L Normal 135-[address] [facility] Comment on above: Performed By: #### L DO, MGO, IPB, CHM7 #### [facility] (DEFAULT) [address] [place] [address] 43352 Specimen type Nom (Spec) Arterial Normal [facility] Comment on above: Performed By: #### L DO, MGO, IPB, CHM7 #### [facility] (DEFAULT) [address] [place] [address] 72334 Base Excess -3.8 mmol/L Low -3.0-3.0 [facility] Comment on above: Performed By: #### L DO, MGO, IPB, CHM7 #### [facility] (DEFAULT) [address] [place] [address] 87502 Carboxyhemoglobin 1.4 % Normal <=1.5 [facility] Comment on above: Performed By: #### L DO, MGO, IPB, CHM7 #### [facility] (DEFAULT) [address] [place] [address] 57867 Glucose [Mass/Vol] 124 mg/dL Normal Nonfastin g Glucose: 70-179 [facility] Comment on above: Performed By: #### L DO, MGO, IPB, CHM7 #### [facility] (DEFAULT) [address] [place] [address] 60495 HCO3 (Bld) [Moles/Vol] 20 mmol/L Low 22-28 [facility] Comment on above: Performed By: #### L DO, MGO, IPB, CHM7 #### [facility] (DEFAULT) [address] [place] [address] 52104 Hematocrit (Bld) [Volume fraction] 25 % Low 34-46 [facility] Comment on above: Performed By: #### L DO, MGO, IPB, CHM7 #### [facility] (DEFAULT) [address] [place] [address] 69522 Hemoglobin (Bld) [Mass/Vol] 8.1 g/dL Low 11.4-15.2 [facility] Comment on above: Performed By: #### L DO, MGO, IPB, CHM7 #### [facility] (DEFAULT) [address] [place] [address] 87364 Ionized Calcium, Whole Blood 4.68 mg/dL Normal 4.60-5.30 [facility] Comment on above: Performed By: #### L DO, MGO, IPB, CHM7 #### [facility] (DEFAULT) [address] [place] [address] 26216 Lactate, Whole Blood 1.4 mmol/L Normal 0.5-1.6 [facility] Comment on above: Performed By: #### L DO, MGO, IPB, CHM7 #### [facility] (DEFAULT) [address] [place] [address] 97367 Methemoglobin 1.2 % Normal <=1.5 [facility] Comment on above: Performed By: #### L DO, MGO, IPB, CHM7 #### [facility] (DEFAULT) [address] [place] [address] 33963 Oxygen saturation in Blood 100 % High 94-98 [facility] Comment on above: Performed By: #### L DO, MGO, IPB, CHM7 #### [facility] (DEFAULT) [address] [place] [address] 34774 Oxyhemoglobin 97 % Normal 94-98 [facility] Comment on above: Performed By: #### L DO, MGO, IPB, CHM7 #### [facility] (DEFAULT) [address] [place] [address] 74919 pCO2 31 mm Hg Low 32-48 [facility] Comment on above: Performed By: #### L DO, MGO, IPB, CHM7 #### [facility] (DEFAULT) [address] [place] [address] 95114 pH, Arterial 7.42 Normal 7.35-7.45 [facility] Comment on above: Performed By: #### L DO, MGO, IPB, CHM7 #### [facility] (DEFAULT) [address] [place] [address] 04420 pO2 358 mm Hg High 83-108 [facility] Comment on above: Performed By: #### L DO, MGO, IPB, CHM7 #### [facility] (DEFAULT) [address] [place] [address] 55478 Potassium [Moles/Vol] 3.9 mmol/L Normal 3.5-5.0 [facility] Comment on above: Performed By: #### L DO, MGO, IPB, CHM7 #### [facility] (DEFAULT) [address] [place] [address] 85527 Sodium [Moles/Vol] 139 mmol/L Normal 135-[address] [facility] Comment on above: Performed By: #### L DO, MGO, IPB, CHM7 #### [facility] (DEFAULT) [address] [place] [address] 02988 Specimen type Nom (Spec) Arterial Normal [facility] Comment on above: Performed By: #### L DO, MGO, IPB, CHM7 #### [facility] (DEFAULT) [address] [place] [address] 55487 ARTERIAL BLOOD GAS (FULL GARCIA EL)Ordered By: Vickie Talamantes on 04-10-2025 Base excess Calc (Bld) [Moles/Vol] -3.8000 mmol/L Low -3.0 - 3.0 mmol/L [facility] Calcium.ionized (Bld) [Mass/Vol] 4.68 mg/dL 4.60 - 5.30 mg/dL [facility] Carboxyhemoglobin (Bld) [Mass fraction] 1.4 % NINF - 1.5 % [facility] CO2 (Bld) [Partial pressure] 31 mm[Hg] Low [facility] Glucose [Mass/Vol] 124 mg/dL 70 - 179 mg/dL [facility] HCO3 (Bld) [Moles/Vol] 20 mmol/L Low 22 - 28 mmol/L [facility] Hematocrit (Bld) [Volume fraction] 25 % Low 34 - 46 % [facility] Hemoglobin (Bld) [Mass/Vol] 8.1 g/dL Low 11.4 - 15.2 g/dL [facility] Interpretation and review of laboratory results Abnormal [facility] Lactate [Moles/Vol] 1.4 mmol/L 0.5 - 1. 6 mmol/L [facility] Methemoglobin (Bld) [Mass fraction] 1.2 % NINF - 1.5 % [facility] Oxygen (Bld) [Partial pressure] 358 mm[Hg] High [facility] Oxygen saturation in Blood 100 % High 94 - 98 % [facility] Oxyhemoglobin 97 % 94 - 98 % [facility] pH (Bld) 7.42 [pH] 7.35 - 7.45 [facility] Potassium [Moles/Vol] 3.9 mmol/L 3.5 - 5.0 mmol/L [facility] Sodium [Moles/Vol] 139 mmol/L 135 - 145 mmol/L [facility] Specimen source Nom (Unsp spec) Arterial [facility] CBC,PLATELETSon 04-10-2025 Erythrocyte distribution width (RBC) [Ratio] 27.8 % High 10.8 - 14.9 % [facility] Hematocrit (Bld) [Volume fraction] 25.9 % Low 34.9 - 44.3 % [facility] Hemoglobin (Bld) [Mass/Vol] 8.3 g/dL Low 11.4 - 15.2 g/dL [facility] Interpretation and review of laboratory results Abnormal [facility] MCH (RBC) [Entitic mass] 30.4 pg 25.9 - 33.9 pg [facility] MCHC (RBC) [Mass/Vol] 32 g/dL 31.4 - 35.9 g/dL [facility] MCV (RBC) [Entitic vol] 94.9 fL 79.6 - 97.7 fL [facility] Platelet mean volume (Bld) [Entitic vol] 9.4 fL 8.5 - 12.2 fL [facility] Platelets (Bld) [#/Vol] 152 10*3/uL 150 - 393 K/uL [facility] RBC (Bld) [#/Vol] 2.73 10*6/uL Low [facility] WBC (Bld) [#/Vol] 6.58 10*3/uL 3.99 - 11.19 K/uL [facility] Hematocrit (Bld) [Volume fraction] 25.9 % Low 34.9-44.3 [facility] Comment on above: Performed By: #### X M #### [facility] (DEFAULT) [address] [place] [address] Hemoglobin (Bld) [Mass/Vol] 8.3 g/dL Low 11.4-15.2 [facility] Comment on above: Performed By: #### X M #### [facility] (DEFAULT) [address] [place] [address] MCV (RBC) [Entitic vol] 94.9 fL Normal 79.6-97.7 [facility] Comment on above: Performed By: #### X M #### [facility] (DEFAULT) [address] [place] [address] 35115 Mean Cell Hgb 30.4 pg Normal 25.9-33.9 [facility] Comment on above: Performed By: #### X M #### [facility] (DEFAULT) [address] [address] Mean Cell Hgb Conc 32.0 g/dL Normal 31.4-35.[address] [facility] Comment on above: Performed By: #### X M #### [facility] (DEFAULT) [address] [address] Platelet mean volume (Bld) [Entitic vol] 9.4 fL Normal 8.5-12.2 [facility] Comment on above: Performed By: #### X M #### [facility] (DEFAULT) [address] [address] Platelets (Bld) [#/Vol] 152 10*3/uL Normal 150-393 [facility] Comment on above: Performed By: #### X M #### [facility] (DEFAULT) [address] [address] RBC (Bld) [#/Vol] 2.73 10*6/uL Low 3.91-5.04 [facility] Comment on above: Performed By: #### X M #### [facility] (DEFAULT) [address] [address] RBC Distribution 27.8 % High 10.8-14.9 [facility] Comment on above: Performed By: #### X M #### [facility] (DEFAULT) [address] [address] WBC (Bld) [#/Vol] 6.58 10*3/uL Normal 3.99-11.19 [facility] Comment on above: Performed By: #### X M #### [facility] (DEFAULT) [address] [address] CHEM 7 (LYTES,BUN,CREA,GLUC) on 04-10-2025 Anion gap [Moles/Vol] 15 mmol/L 7 - 17 mmol/L [facility] Chloride [Moles/Vol] 112 mmol/L High 98 - 10 8 mmol/L [facility] CO2 [Moles/Vol] 17 mmol/L Low 21 - 31 mmol/L [facility] Creatinine [Mass/Vol] 0.98 mg/dL 0.50 - 1.20 mg/dL [facility] eGFR, CKD-EPI, Female 58 Low - PINF [facility] Glucose [Mass/Vol] 147 mg/dL 70 - 179 mg/dL [facility] Osmolality Calc [Osmolality] 301 [facility] Potassium [Moles/Vol] 3.7 mmol/L 3.5 - 5.0 mmol/L [facility] Sodium [Moles/Vol] 140 mmol/L 135 - 145 mmol/L [facility] Urea nitrogen [Mass/Vol] 28 mg/dL High 7 - 25 mg/dL [facility] Urea nitrogen/Creatinine [Mass ratio] 29 mg/mg [facility] Anion gap [Moles/Vol] 15 mmol/L Normal 7-17 [facility] Comment on above: Performed By: #### L DO, MGO, IPB, CHM7 #### [facility] (DEFAULT) [address] [place] [address] Chloride [Moles/Vol] 112 mmol/L High 98-108 [facility] Comment on above: Performed By: #### L DO, MGO, IPB, CHM7 #### [facility] (DEFAULT) [address] [place] [address] CO2 [Moles/Vol] 17 mmol/L Low 21-31 [facility] Comment on above: Performed By: #### L DO, MGO, IPB, CHM7 #### [facility] (DEFAULT) [address] [place] [address] Creatinine [Mass/Vol] 0.98 mg/dL Normal 0.50-1.20 [facility] Comment on above: Performed By: #### L DO, MGO, IPB, CHM7 #### [facility] (DEFAULT) [address] [place] [address] 01170 GFR/1.73 sq M.predicted among non-blacks MDRD (S/P/Bld) [Vol rate/Area] 58 mL/min/{1.73_m2} Low >=60 [facility] Comment on above: Result Comment: Repo rted eGFR is based on the CKD-EPI 2020 equation using creatinine, age, and sex. Performed By: #### L DO, MGO, IPB, CHM7 #### [facility] (DEFAULT) [address] [place] [address] 27122 Glucose [Mass/Vol] 147 mg/dL Normal Nonfastin -179 mg/dL; Fastin-99 [facility] Comment on above: Performed By: #### L DO, MGO, IPB, CHM7 #### [facility] (DEFAULT) [address] [place] [address] 30142 Osmolality [Osmolality] 301 mosm/kg Normal 278-305 [facility] Comment on above: Performed By: #### L DO, MGO, IPB, CHM7 #### [facility] (DEFAULT) [address] [place] [address] 26796 Potassium [Moles/Vol] 3.7 mmol/L Normal 3.5-5.0 [facility] Comment on above: Performed By: #### L DO, MGO, IPB, CHM7 #### [facility] (DEFAULT) [address] [place] [address] 70678 Sodium [Moles/Vol] 140 mmol/L Normal 135-[address] [facility] Comment on above: Performed By: #### L DO, MGO, IPB, CHM7 #### [facility] (DEFAULT) [address] [place] [address] 95605 Urea nitrogen [Mass/Vol] 28 mg/dL High 7-25 [facility] Comment on above: Performed By: #### L , MGO, IPB, LORENZAM7 #### [facility] (DEFAULT) [address] [place] [address] 97809 Urea nitrogen/Creatinine [Mass ratio] 29 mg/mg Normal [facility] Comment on above: Performed By: #### L , MGO, IPB, LORENZAM7 #### [facility] (DEFAULT) [address] [place] [address] 31415 HEMOGLOBIN & HEMATOCRITon Hematocrit (Bld) [Volume fraction] 28.7 % Low 34.9 - 44.3 % [facility] Hemoglobin (Bld) [Mass/Vol] 9.4 g/dL Low 11.4 - 15.2 g/dL [facility] Interpretation and review of laboratory results Abnormal [facility] Hematocrit (Bld) [Volume fraction] 28.7 % Low 34.9-44.3 [facility] Comment on above: Order Comment: Post blood transfusion Performed By: #### H H ####[facility] (DEFAULT)[address] [place] [address] Hemoglobin (Bld) [Mass/Vol] 9.4 g/dL Low 11.4-15.2 [facility] Comment on above: Order Comment: Post blood transfusion Performed By: #### H H ####[facility] (DEFAULT)[address] [place] [address] 71787 HEPATIC FUNCTION PANELon Albumin [Mass/Vol] 2.8 g/dL Low 3.5 - 5.0 g/dL [facility] ALP [Catalytic activity/Vol] 18 U/L Low 32 - 126 U/L [facility] ALT [Catalytic activity/Vol] 19 U/L 9 - 48 U/L [facility] AST [Catalytic activity/Vol] 38 U/L 10 - 39 U/L [facility] Bilirubin [Mass/Vol] 0.6 mg/dL NINF - 1.5 mg/dL [facility] Bilirubin.direct [Mass/Vol] 0.1 mg/dL NINF - 0.3 mg/dL [facility] Interpretation and review of laboratory results Abnormal [facility] Protein [Mass/Vol] 4.5 g/dL Low 6.4 - 8.3 g/dL [facility] Albumin [Mass/Vol] 2.8 g/dL Low 3.5-5.[address] [facility] Comment on above: Performed By: #### L DO, MGO, IPB, CHM7 #### [facility] (DEFAULT) [address] [place] [address] 19783 ALP [Catalytic activity/Vol] 18 U/L Low 32-126 [facility] Comment on above: Performed By: #### L DO, MGO, IPB, CHM7 #### [facility] (DEFAULT) [address] [place] [address] 02909 ALT [Catalytic activity/Vol] 19 U/L Normal 9-48 [facility] Comment on above: Performed By: #### L DO, MGO, IPB, CHM7 #### [facility] (DEFAULT) [address] [place] [address] 55110 AST [Catalytic activity/Vol] 38 U/L Normal 10-39 [facility] Comment on above: Performed By: #### L DO, MGO, IPB, CHM7 #### [facility] (DEFAULT) [address] [place] [address] 34510 Bilirubin [Mass/Vol] 0.6 mg/dL Normal <1.5 [facility] Comment on above: Performed By: #### L DO, MGO, IPB, CHM7 #### [facility] (DEFAULT) [address] [place] [address]132 Bilirubin.indirect [Mass/Vol] 0.1 mg/dL Normal <0.3 [facility] Comment on above: Performed By: #### L DO, MGO, IPB, CHM7 #### [facility] (DEFAULT) [address] [place] [address]62 Protein [Mass/Vol] 4.5 g/dL Low 6.4-8.[address] [facility] Comment on above: Performed By: #### L DO, MGO, IPB, CHM7 #### [facility] (DEFAULT) [address] [place] [address] 52710 IONIZED CALCIUM, WHOLE BLOOD on 04-10-2025 Calcium.ionized (Bld) [Moles/Vol] 4.34 mg/dL Low 4.60 - 5.30 mg/dL [facility] Interpretation and review of laboratory results Abnormal [facility] ICA 4.34 mg/dL Low 4.60-5.30 [facility] Comment on above: Performed By: #### X M #### [facility] (DEFAULT) [address] [place] [address] 22975 MAGNESIUMon 04-10-2025 Magnesium [Mass/Vol] 2.7 mg/dL High 1.6 - 2 .6 mg/dL [facility] Magnesium [Mass/Vol] 2.7 mg/dL High 1.6-2.6 [facility] Comment on above: Performed By: #### L DO, MGO, IPB, CHM7 #### [facility] (DEFAULT) [address] [place] [address]876 No Panel Informationon 04-10 ABO/RH(D) TYPE Positive [facility] BLOOD COMPONENT TYPE Red Cells, Leukoreduced [facility] BLOOD COMPONENT TYPE Plasma, Thawed [facility] EXPIRATION DATE [facility] EXPIRATION DATE [id number] [facility] EXPIRATION DATE [id number] [facility] EXPIRATION DATE [facility] Product ABO/RH(D) Positive [facility] Product ABO/RH(D) NUMBER 6200 [facility] PRODUCT CODE [id number] [facility] PRODUCT CODE [id number] [facility] UNIT STATUS transfused [facility] UNIT STATUS released [facility] Interpretation and review of laboratory results Abnormal [facility] Radiology Study observation (narrative) [facility] PHOSPHATE, INORGANICon 04-10 Interpretation and review of laboratory results Normal [facility] Phosphate [Mass/Vol] 3.4 mg/dL 2.2 - 4 .6 mg/dL [facility] Phosphorous 3.4 mg/dL Normal 2.2-4.6 [facility] Comment on above: Performed By: #### L DO, MGO, IPB, CHM7 #### [facility] (DEFAULT) [address] [place] [address] PREPARE TO TRANSFUSE OR PLAS MAon 04-10-2025 Product ABO/RH(D) Negative [facility] Product ABO/RH(D) NUMBER 600 [facility] PRODUCT CODE [id number] [facility] UNIT NUMBER [id number] [facility] UNIT NUMBER [id number] [facility] UNIT NUMBER [id number] [facility] UNIT NUMBER [id number] [facility] UNIT NUMBER [id number] [facility] UNIT NUMBER [id number] [facility] UNIT NUMBER [id number] [facility] UNIT NUMBER [id number] [facility] PREPARE TO TRANSFUSE OR RED BLOOD CELLSon 04-10-2025 PRODUCT CODE [id number] [facility] UNIT NUMBER [id number] [facility] UNIT NUMBER [id number] [facility] UNIT NUMBER [id number] [facility] UNIT NUMBER [id number] [facility] UNIT NUMBER [id number] [facility] UNIT NUMBER [id number] [facility] UNIT NUMBER [id number] [facility] UNIT NUMBER [id number] [facility] PREPARE TO TRANSFUSE RED BLO OD CELLSon 04-10-2025 ABO/RH(D) TYPE Positive [facility] BLOOD COMPONENT TYPE Red Cells, Leukoreduced [facility] EXPIRATION DATE [id number] [facility] Product ABO/RH(D) Positive [facility] Product ABO/RH(D) NUMBER 6200 [facility] PRODUCT CODE [id number] [facility] UNIT NUMBER [id number] [facility] UNIT STATUS transfused [facility] PT,INR,PTTOrdered By: Tadeo Rojas on 04-10-2025 aPTT Coag (PPP) [Time] 23.2 s Low [facility] INR Coag (Bld) [Relative time] 1.2 {INR} High 0.9 - 1.1 [facility] Interpretation and review of laboratory results Abnormal [facility] PT Coag (PPP) [Time] 15.5 s High [facility] PT,INR,PTTon 04-10-2025 aPTT Coag (Bld) [Time] 23.2 s Low 24.0-34.3 [facility] Comment on above: Result Comment: Spec imen integrity checked. Performed By: #### L DO, MGO, IPB, CHM7 #### [facility] (DEFAULT) [address] [place] [address] INR Coag (PPP) [Relative time] 1.2 {INR} High 0.9-1.1 [facility] Comment on above: Performed By: #### L DO, MGO, IPB, CHM7 #### [facility] (DEFAULT) [address] [place] [address] PT Coag (PPP) [Time] 15.5 s High 11.9-14.2 [facility] Comment on above: Performed By: #### L ARNEL TOBIAS IPB, CHM7 #### [facility] (DEFAULT) [address] [place] [address] TRANSFUSE OR PLASMAon 2024 [facility] TRANSFUSE OR RED BLOOD CELLS Ordered By: Jorje Yeager on 04-10-2025 [facility] TRANSFUSE OR RED BLOOD CELLS on 04-10-2025 [facility] TRANSFUSE OR RED BLOOD CELLS Ordered By: Brandi Downey on 04-10-2025 [facility] Work Phone: Urine Cultureon 04-10-2025 [facility] Normal [facility] Comment on above: Performed By: #### M 100.2200 ####[facility] [id number] [facility] [place], [place], [address] [facility] Normal [facility] Comment on above: Performed By: #### L 400.0001, M100.2200 ####[facility] [address] [facility] [place], [place], [address] [facility] FACTOR AGOrde red By: Radha Chavarria on 04-10-2025 Interpretation and review of laboratory results Abnormal [facility] vWf Ag actual/normal IA (PPP) [Relative mass conc] 333 % High 50 - 180 % [facility] ABORH TYPE RECONFIRMATIONon 04-09-2025 ABO/RH(D) TYPE Positive [facility] ABO/RH(D) TYPE Positive Normal [facility] Comment on above: Performed By: #### L ARENL TOBIAS, IPB, CHM7 #### [facility] (DEFAULT) [address] [place] [address] CBC,PLATELETSon 04-09-2025 Erythrocyte distribution width (RBC) [Ratio] 24.9 % High 10.8 - 14.9 % [facility] Hematocrit (Bld) [Volume fraction] 27 % Low 34.9 - 44.3 % [facility] Hemoglobin (Bld) [Mass/Vol] 8.6 g/dL Low 11.4 - 15.2 g/dL [facility] Interpretation and review of laboratory results Abnormal [facility] MCH (RBC) [Entitic mass] 30.8 pg 25.9 - 33.9 pg [facility] MCHC (RBC) [Mass/Vol] 31.9 g/dL 31.4 - 35.9 g/dL [facility] MCV (RBC) [Entitic vol] 96.8 fL 79.6 - 97.7 fL [facility] Platelet mean volume (Bld) [Entitic vol] 9.2 fL 8.5 - 12.2 fL [facility] Platelets (Bld) [#/Vol] 104 10*3/uL Low 150 - 393 K/uL [facility] RBC (Bld) [#/Vol] 2.79 10*6/uL Low [facility] WBC (Bld) [#/Vol] 6.32 10*3/uL 3.99 - 11.19 K/uL [facility] Hematocrit (Bld) [Volume fraction] 27.0 % Low 34.9-44.3 [facility] Comment on above: Performed By: #### L ARNEL TOBIAS IPB, CHM7 #### [facility] (DEFAULT) [address] [place] [address] Hemoglobin (Bld) [Mass/Vol] 8.6 g/dL Low 11.4-15.2 [facility] Comment on above: Performed By: #### L DO MGCinda, IPOlga, CHM7 #### [facility] (DEFAULT) [address] [place] [address] MCV (RBC) [Entitic vol] 96.8 fL Normal 79.6-97.7 [facility] Comment on above: Result Comment: Resu lts inconsistent with previous results Performed By: #### L DO, MGO, IPB, CHM7 #### [facility] (DEFAULT) [address] [place] [address]258 Mean Cell Hgb 30.8 pg Normal 25.9-33.9 [facility] Comment on above: Performed By: #### L DO, MGO, IPB, CHM7 #### [facility] (DEFAULT) [address] [place] [address] 12897 Mean Cell Hgb Conc 31.9 g/dL Normal 31.4-35.[address] [facility] Comment on above: Performed By: #### L DO, MGO, IPB, CHM7 #### [facility] (DEFAULT) [address] [place] [address] Platelet mean volume (Bld) [Entitic vol] 9.2 fL Normal 8.5-12.2 [facility] Comment on above: Performed By: #### L DO, MGO, IPB, CHM7 #### [facility] (DEFAULT) [address] [place] [address] Platelets (Bld) [#/Vol] 104 10*3/uL Low 150-393 [facility] Comment on above: Performed By: #### L DO, MGO, IPB, CHM7 #### [facility] (DEFAULT) [address] [place] [address] RBC (Bld) [#/Vol] 2.79 10*6/uL Low 3.91-5.04 [facility] Comment on above: Performed By: #### L DO, MGO, IPB, CHM7 #### [facility] (DEFAULT) [address] [place] [address] 18027 RBC Distribution 24.9 % High 10.8-14.9 [facility] Comment on above: Performed By: #### L DO, MGO, IPB, CHM7 #### [facility] (DEFAULT) [address] [place] [address] WBC (Bld) [#/Vol] 6.32 10*3/uL Normal 3.99-11.19 [facility] Comment on above: Performed By: #### L DO, MGO, IPB, CHM7 #### [facility] (DEFAULT) [address] [place] [address] CHEM 7 (LYTES,BUN,CREA,GLUC) on 04-09-2025 Anion gap [Moles/Vol] 12 mmol/L 7 - 17 mmol/L [facility] Chloride [Moles/Vol] 109 mmol/L High 98 - 10 8 mmol/L [facility] CO2 [Moles/Vol] 19 mmol/L Low 21 - 31 mmol/L [facility] Creatinine [Mass/Vol] 0.81 mg/dL 0.50 - 1.20 mg/dL [facility] eGFR, CKD-EPI, Female 73 - PINF [facility] Glucose [Mass/Vol] 163 mg/dL 70 - 179 mg/dL [facility] Interpretation and review of laboratory results Abnormal [facility] Osmolality Calc [Osmolality] 291 [facility] Potassium [Moles/Vol] 4.6 mmol/L 3.5 - 5.0 mmol/L [facility] Sodium [Moles/Vol] 135 mmol/L 135 - 145 mmol/L [facility] Urea nitrogen [Mass/Vol] 19 mg/dL 7 - 25 mg/dL [facility] Urea nitrogen/Creatinine [Mass ratio] 23 mg/mg [facility] Anion gap [Moles/Vol] 12 mmol/L Normal 7-17 [facility] Comment on above: Performed By: #### Leonel MUNOZ #### [facility] (DEFAULT) [address] [place] [address] Chloride [Moles/Vol] 109 mmol/L High 98-108 [facility] Comment on above: Performed By: #### Leonel MUNOZ #### [facility] (DEFAULT) [address] [place] [address] CO2 [Moles/Vol] 19 mmol/L Low 21-31 [facility] Comment on above: Performed By: #### G SVALL #### [facility] (DEFAULT) [address] [place] [address] Creatinine [Mass/Vol] 0.81 mg/dL Normal 0.50-1.20 [facility] Comment on above: Performed By: #### G SVALL #### [facility] (DEFAULT) [address] [place] [address] GFR/1.73 sq M.predicted among non-blacks MDRD (S/P/Bld) [Vol rate/Area] 73 mL/min/{1.73_m2} Normal >=60 [facility] Comment on above: Result Comment: Repo rted eGFR is based on the CKD-EPI 2020 equation using creatinine, age, and sex. Performed By: #### G SVALL #### [facility] (DEFAULT) [address] [place] [address] Glucose [Mass/Vol] 163 mg/dL Normal Nonfastin -179 mg/dL; Fastin-99 [facility] Comment on above: Performed By: #### G SVALL #### [facility] (DEFAULT) [address] [place] [address] Osmolality [Osmolality] 291 mosm/kg Normal 278-305 [facility] Comment on above: Performed By: #### G SVALL #### [facility] (DEFAULT) [address] [place] [address] Potassium [Moles/Vol] 4.6 mmol/L Normal 3.5-5.0 [facility] Comment on above: Performed By: #### G SVALL #### [facility] (DEFAULT) [address] [place] [address] Sodium [Moles/Vol] 135 mmol/L Normal 135-[address] [facility] Comment on above: Performed By: #### G SVALL #### [facility] (DEFAULT) [address] [place] [address] Urea nitrogen [Mass/Vol] 19 mg/dL Normal - [facility] Comment on above: Performed By: #### G SVALL #### [facility] (DEFAULT) [address] [place] [address] Urea nitrogen/Creatinine [Mass ratio] 23 mg/mg Normal [facility] Comment on above: Performed By: #### G SVALL #### [facility] (DEFAULT) [address] [place] [address] CT ABDOMEN/PELVIS WITH CONTR AST VASCULAR TRAUMAon [...] grade: None. Kidney trauma grade: None. Normal [facility] CT Abdomen and Pelvis W cont rast Nicole 04-09-2025 RADIOLOGY RADIOLOGY [facility] CT Abdomen and Pelvis W cont rast IVOrdered By: Peggy Godwin on 04-09-2025 [facility] Work Phone: CT CHEST WITH CONTRAST [...] have reviewed and approved this report. Normal [facility] CT Chest W contrast Nicole RADIOLOGY RADIOLOGY [facility] CT Chest W contrast IVOrdere d By: Zully Donald on 04-09-2025 [facility] Work Phone: Cardiac echo study Procedure Ordered By: Johanna Aaron on 04-09-2025 Ao peak antonette 1.39 m/s [facility] Work Phone: Ao VTI 23.68 cm [facility] Work Phone: Ascending aorta 2.76 cm [facility] Work Phone: AV LVOT peak gradient 3 mmHg [facility] Work Phone: AV mean gradient 4 mmHg [facility] Work Phone: AV peak gradient 8 mmHG [facility] Work Phone: AV valve area 2.15 cm2 [facility] Work Phone: AV Velocity Ratio 0.65 [facility] Work Phone: JOAQUIN (continuity Vmax) 1.95 cm2 [facility] Work Phone: JOAQUIN (continuity VTI) 2.15 cm2 [facility] Work Phone: Avg e' pk antonette 0.08 m/s [facility] Work Phone: Avg E/e' ratio 8.64 [facility] Work Phone: BP EF 59 % [facility] Work Phone: DI (Vmax) 0.65 [facility] Work Phone: DI (VTI) 0.71 m/2 [facility] Work Phone: E wave decelartion time 198.79 msec [facility] Work Phone: e' lateral pk antonette 0.1033 m/s [facility] Work Phone: e' lateral pk antonette 0.1 m[facility]s [facility]: e' septal pk antonette 0.0651 m/s [facility]: e' septal pk antonette 0.07 m/s [facility] Work Phone: E/A ratio 0.77 [facility] Work Phone: E/e' lateral ratio 6.68 [facility] Work Phone: E/e' septal ratio 10.6 [facility] Work Phone: EF SP 2CH 66 [facility] Work Phone: EF SP 4CH 52 [facility] Work Phone: EST RAP 3 mmHg [facility] Work Phone: FS 35 % [facility] Work Phone: [phone] IVS 0.94 cm [facility] Work Phone: LA area 4CH 21.52 cm2 [facility] Work Phone: LA ESV BP (MOD) 48 [facility] Work [facility]: LA ESV SP 2CH (MOD) 30 mL [facility] [place] [facility] Work Phone: LA ESV SP 4CH (MOD) 58 mL [facility] [place] [facility] Work Phone: LV EDV BP 56 mL [facility] Work Phone: LV EDV SP 2CH 61 mL [facility] Work Phone: LV EDV SP 4CH 52 mL [facility] Work Phone: LV ESV BP 23 mL [facility] Work Phone: [phone] LV ESV SP 2CH 21 mL [facility] Work Phone: LV ESV SP 4CH 25 mL [facility] Work Phone: LV mass 104.05 g [facility] Work Phone: LV RWT 0.3 [facility] Work Phone: LV stroke volume BP (ml) 33 mL [facility] Work Phone: LVIDD 4.29 cm [facility] Work Phone: [phone] LVIDS 2.78 cm [facility] Work Phone: LVOT area 3.02 cm2 [facility] Work Phone: LVOT diameter 1.96 cm [facility] Work Phone: LVOT peak antonette 0.9 m/s [facility] Work Phone: LVOT peak VTI 16.88 cm [facility] Work Phone: LVOT stroke volume 51 cm3 [facility] Work Phone: MV mean gradient 1 mmHg [facility] Work Phone: MV peak gradient 3 mmHg [facility] Work Phone: MV pk A antonette 0.9 m/s [facility] Work Phone: MV pk E antonette 0.69 m/s [facility] Work Phone: [phone] MV valve area by continuity eq 1.96 cm2 [facility] Work Phone: MV VTI 26 cm [facility] Work Phone: MVA (continuity VTI) 1.97 cm [facility] Work Phone: OSU AV VTI RATIO PRE STRESS 0.71 [facility] Work Phone: PV mean gradient 3 mmHg [facility] Work Phone: PV peak gradient 5 mmHg [facility] Work Phone: [phone] PV PK ANTONETTE 1.09 m/s [facility] Work Phone: PW 0.65 cm [facility] Work Phone: RA area 4CH (MOD) 11.56 cm2 [facility] Work Phone: Right atrium volume 4 chamber method of disks 24 mL [facility] Work Phone: RV basal diam 2.86 cm [facility] Work Phone: RV long diam 6.39 cm [facility] Work Phone: RV mid diam 1.72 cm [facility] Work Phone: RV S' 16.99 cm/s [facility] Work Phone: RVOT peak gradient 3 mmHg [facility] Work Phone: RVOT peak antonette 0.88 m/s [facility] Work Phone: RVOT peak VTI 17.9 cm [facility] Work Phone: Sinus 2.99 cm [facility] Work Phone: STJ 2.1 cm [facility] Work Phone: Stroke Volume 51 cm/mL [facility] Work Phone: TAPSE 1.67 cm [facility] Work Phone: [facility] Work Phone: Cardiac echo study Procedure on 04-09-2025 [facility] Radiology Study observation (narrative) [facility] ECHOCARDIOGRAMon 04-09-2025 Echocardiography ? No prior study [...] from the original result were not included. 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 Normal [facility] EXTRA MICROon 04-09-2025 [facility] GLUCOSE POCon 04-09-2025 Glucose [Mass/Vol] 150 mg/dL 70 - 179 mg/dL [facility] POC Sample Type CAPBL [facility] HEMOGLOBIN & HEMATOCRITon Hematocrit (Bld) [Volume fraction] 28.2 % Low 34.9 - 44.3 % [facility] Hemoglobin (Bld) [Mass/Vol] 9.4 g/dL Low 11.4 - 15.2 g/dL [facility] Interpretation and review of laboratory results Abnormal [facility] Hematocrit (Bld) [Volume fraction] 28.2 % Low 34.9-44.3 [facility] Comment on above: Performed By: #### H H ####[facility] (DEFAULT)[address] [place] [address] Hemoglobin (Bld) [Mass/Vol] 9.4 g/dL Low 11.4-15.2 [facility] Comment on above: Performed By: #### H H ####[facility] (DEFAULT)[address] [place] [address] HEMOGLOBIN A1Con 04-09-2025 Average glucose Estimated from glycated hemoglobin (Bld) [Mass/Vol] 111 mg/dL [facility] HbA1c (Bld) [Mass fraction] 5.5 % 4.7 - 5.6 % [facility] Glucose [Mass/Vol] 111 mg/dL Normal [facility] Comment on above: Performed By: #### L DO, MGO, IPB, CHM7 #### [facility] (DEFAULT) [address] [place] [address] Hemoglobin A1C HPLC 5.5 % Normal 4.7-5.6 [facility] Comment on above: Performed By: #### L , MGO, IPB, CHM7 #### [facility] (DEFAULT) [address] [place] [address]274 IONIZED CALCIUM, WHOLE BLOOD Ordered By: Jhon Still on 04-09-2025 Calcium.ionized (Bld) [Moles/Vol] 3.91 mg/dL Low 4.60 - 5.30 mg/dL [facility] Interpretation and review of laboratory results Abnormal [facility] IONIZED CALCIUM, WHOLE BLOOD on 04-09-2025 ICA 3.91 mg/dL Low 4.60-5.30 [facility] Comment on above: Performed By: #### L DO, MGO, IPB, CHM7 #### [facility] (DEFAULT) [address] [place] [address]10 MAGNESIUMon 04-09-2025 Magnesium [Mass/Vol] 2 mg/dL 1.6 - 2 .6 mg/dL [facility] Magnesium [Mass/Vol] 2.0 mg/dL Normal 1.6-2.6 [facility] Comment on above: Performed By: #### G SVALL #### [facility] (DEFAULT) [address] [place] [address] 6[address]00 MR Brain WO contraston 04-09 RADIOLOGY RADIOLOGY [facility] Radiology Study observation (narrative) [facility] MR Brain WO contrastOrdered By: Therese Boudreaux on 04-09-2025 [facility] Work Phone: MR Cervical spine WO contras ton 04-09-2025 RADIOLOGY RADIOLOGY [facility] Radiology Study observation (narrative) [facility] MRI BRAIN STROKE WITHOUT CON TRASTon 04-09-2025 [...] to underlying thrombus. Moderate mastoid effusion. Normal [facility] MRI SPINE CERVICAL WITHOUT CONTRAST [...] Isbell PA-C on 04/09/2025 6:17 PM. Normal [facility] No Panel InformationOrdered By: System Discharge on 04-09-2025 [facility] No Panel Informationon 04-09 Interpretation and review of laboratory results Normal [facility] PHOSPHATE, INORGANICon 04-09 Phosphate [Mass/Vol] 3.9 mg/dL 2.2 - 4 .6 mg/dL [facility] Phosphorous 3.9 mg/dL Normal 2.2-4.6 [facility] Comment on above: Performed By: #### G TAMMY #### [facility] (DEFAULT) [address] [place] [address], [place] [address] Portable XR Chest Viewson RADIOLOGY RADIOLOGY [facility] RADIOLOGY RADIOLOGY [facility] Radiology Study observation (narrative) [facility] Portable XR Chest ViewsOrder ed By: Abebe Mooney on 04-09-2025 [facility] Work Phone: RF Esophagus Views W annia hughes Shireen 04-09-2025 RADIOLOGY RADIOLOGY [facility] Radiology Study observation (narrative) [facility] RF Esophagus Views W contras t POOrdered By: David Bower on 04-09-2025 [facility] URINALYSIS REFLEX TO CULTURE PERFORMABLEOrdered By: Yessy Kaba on 04-09-2025 Appearance (U) Clear Clear [facility] Bacteria LM Ql (Urine sed) ABSENT ABSENT [facility] Color (U) Yellow Yellow [facility] Epithelial cells.squamous LM Ql (Urine sed) 0-2/hpf 0-2/hpf, 3-5/hpf = 1+ [facility] Glucose Test strip (U) [Mass/Vol] Negative Negative [facility] Interpretation and review of laboratory results Abnormal [facility] Ketones (U) [Mass/Vol] Trace Abnormal Negative [facility] Leukocyte esterase Test strip Ql (U) Negative Negative [facility] Nitrite Ql (U) Negative Negative [facility] pH (U) 5.0 [pH] 5.0 - 7.0 [facility] Protein (U) [Mass/Vol] 30 mg/dL Abnormal Negative [facility] RBC (U) [#/Vol] Trace Abnormal Negative [facility] RBC LM.HPF (Urine sed) [#/Area] 0-2 [facility] Specific gravity (U) [Rel density] High 1.001 - 1.035 [facility] Urobilinogen (U) [Mass/Vol] 0.2 E.U./dL 0.2 E.U/dL, 1.0 E.U/dL [facility] WBC LM.HPF (Urine sed) [#/Area] 0 - 5 [facility] URINALYSIS REFLEX TO CULTURE PERFORMABLEon 04-09-2025 Appearance (U) Clear Normal Clear [facility] Comment on above: Order Comment: For i ndwelling catheters, specimen collection is acceptable on catheter day 1 and 2 only. ? Performed By: #### U [id number] #### [facility] (DEFAULT) [address] [place] [address]43 Bacteria ABSENT Normal ABSENT [facility] Comment on above: Order Comment: For i ndwelling catheters, specimen collection is acceptable on catheter day 1 and 2 only. ? Performed By: #### U [id number] #### [facility] (DEFAULT) [address] [place] [address] 60981 Blood Urine Trace Abnormal Negative [facility] Comment on above: Order Comment: For i ndwelling catheters, specimen collection is acceptable on catheter day 1 and 2 only. ? Performed By: #### U [id number] #### [facility] (DEFAULT) [address] [place] [address] Color (U) Yellow Normal Yellow [facility] Comment on above: Order Comment: For i ndwelling catheters, specimen collection is acceptable on catheter day 1 and 2 only. ? Performed By: #### U [id number] #### [facility] (DEFAULT) [address] [place] [address]31 Glucose Ql (U) Negative Normal Negative [facility] Comment on above: Order Comment: For i ndwelling catheters, specimen collection is acceptable on catheter day 1 and 2 only. ? Performed By: #### U [id number] #### [facility] (DEFAULT) [address] [place] [address] 16762 Ketones Ql (U) Trace Abnormal Negative [facility] Comment on above: Order Comment: For i ndwelling catheters, specimen collection is acceptable on catheter day 1 and 2 only. ? Performed By: #### U [id number] #### [facility] (DEFAULT) [address] [place] [address] 26448 Leukocyte esterase Test strip Ql (U) Negative Normal Negative [facility] Comment on above: Order Comment: For i ndwelling catheters, specimen collection is acceptable on catheter day 1 and 2 only. ? Performed By: #### U [id number] #### [facility] (DEFAULT) [address] [place] [address] 35538 Nitrites Urine Negative Normal Negative [facility] Comment on above: Order Comment: For i ndwelling catheters, specimen collection is acceptable on catheter day 1 and 2 only. ? Performed By: #### U [id number] #### [facility] (DEFAULT) [address] [place] [address]192 pH (U) 5.0 [pH] Normal 5.0-7.0 [facility] Comment on above: Order Comment: For i ndwelling catheters, specimen collection is acceptable on catheter day 1 and 2 only. ? Performed By: #### U [id number] #### [facility] (DEFAULT) [address] [place] [address] 84512 Protein Urine 30 mg/dL Abnormal Negative [facility] Comment on above: Order Comment: For i ndwelling catheters, specimen collection is acceptable on catheter day 1 and 2 only. ? Performed By: #### U [id number] #### [facility] (DEFAULT) [address] [place] [address] 28330 RBC Urine 0-2 Normal 0-2 [facility] Comment on above: Order Comment: For i ndwelling catheters, specimen collection is acceptable on catheter day 1 and 2 only. ? Performed By: #### U [id number] #### [facility] (DEFAULT) [address] [place] [address]34 Specific [place] Urine > High 1.001-1.035 [facility] Comment on above: Order Comment: For i ndwelling catheters, specimen collection is acceptable on catheter day 1 and 2 only. ? Performed By: #### U [id number] #### [facility] (DEFAULT) [address] [place] [address]40 Squamous/Epithelial Cells, Urine 0-2/hpf Normal 0-2/hpf, 3-5/hpf = 1+ [facility] Comment on above: Order Comment: For i ndwelling catheters, specimen collection is acceptable on catheter day 1 and 2 only. ? Performed By: #### U [id number] #### [facility] (DEFAULT) [address] [address] Urobilinogen Urine 0.2 E.U./dL Normal 0.2 E.U/d L, 1.0 E.U/dL [facility] Comment on above: Order Comment: For i ndwelling catheters, specimen collection is acceptable on catheter day 1 and 2 only. ? Performed By: #### U [id number] #### [facility] (DEFAULT) [address] [place] [address] WBC Urine 0 - 5 Normal 0 - 5 [facility] Comment on above: Order Comment: For i ndwelling catheters, specimen collection is acceptable on catheter day 1 and 2 only. ? Performed By: #### U [id number] #### [facility] (DEFAULT) [address] [place] [address] URINE DRUG SCREEN 04-09 Amphetamine+Methamphet amine Screen (U) [Mass/Vol] Not detected Cutoff: 500 ng/mL [facility] Barbiturates Ql (U) Not detected Cutoff: 200 ng/mL [facility] Benzodiazepines Ql (U) Not detected Cutof f: 200 ng/mL [facility] Buprenorphine Ql (U) Not detected Cutoff: 5 ng/mL [facility] Cannabinoids Screen Ql (U) Not detected Cutoff: 50 ng/mL [facility] Cocaine Ql (U) Not detected Cutoff: 150 ng/mL [facility] fentaNYL Ql (U) Not detected Cutoff: 1 ng/mL [facility] Interpretation and review of laboratory results Normal [facility] Methadone Ql (U) Not detected Cutoff: 300 ng/mL [facility] Opiates Ql (U) Not detected Cutoff: 300 ng/mL [facility] oxyCODONE Ql (U) Not detected Cutoff: 100 ng/mL [facility] Amphetamine/Methamphet amine Not detected Normal Cutoff: 500 ng/mL [facility] Comment on above: Order Comment: For edical purposes only. Positive results are unconfirmed unless otherwise noted. Performed By: #### G SVALL #### [facility] (DEFAULT) [address] [address] Barbiturates Not detected Normal Cutoff: 200 ng/mL [facility] Comment on above: Order Comment: For edical purposes only. Positive results are unconfirmed unless otherwise noted. Performed By: #### G SVALL #### [facility] (DEFAULT) [address] [address] Benzodiazepines Not detected Normal Cutoff: 200 ng/mL [facility] Comment on above: Order Comment: For edical purposes only. Positive results are unconfirmed unless otherwise noted. Performed By: #### G SVALL #### [facility] (DEFAULT) [address] [address] Buprenorphine Not detected Normal Cutoff: 5 ng/mL [facility] Comment on above: Order Comment: For edical purposes only. Positive results are unconfirmed unless otherwise noted. Performed By: #### G SVALL #### [facility] (DEFAULT) [address] [address] Cannabinoids Screen Ql (U) Not detected Normal Cutoff: 50 ng/mL [facility] Comment on above: Order Comment: For edical purposes only. Positive results are unconfirmed unless otherwise noted. Performed By: #### G SVALL #### [facility] (DEFAULT) [address] [address] Cocaine Not detected Normal Cutoff: 150 ng/mL [facility] Comment on above: Order Comment: For edical purposes only. Positive results are unconfirmed unless otherwise noted. Performed By: #### G SVALL #### [facility] (DEFAULT) [address] [place] [address] Fentanyl Not detected Normal Cutoff: 1 ng/mL [facility] Comment on above: Order Comment: For m edical purposes only. Positive results are unconfirmed unless otherwise noted. Performed By: #### G SVALL #### [facility] (DEFAULT) [address] [place] [address] Methadone Not detected Normal Cutoff: 300 ng/mL [facility] Comment on above: Order Comment: For m edical purposes only. Positive results are unconfirmed unless otherwise noted. Performed By: #### G SVALL #### [facility] (DEFAULT) [address] [address] Opiates Not detected Normal Cutoff: 300 ng/mL [facility] Comment on above: Order Comment: For m edical purposes only. Positive results are unconfirmed unless otherwise noted. Performed By: #### G SVALL #### [facility] (DEFAULT) [address] [address] Oxycodone Not detected Normal Cutoff: 100 ng/mL [facility] Comment on above: Order Comment: For edical purposes only. Positive results are unconfirmed unless otherwise noted. Performed By: #### G SVALL #### [facility] (DEFAULT) [address] [address] XR CHEST 1 VIEW PORTABLEon 0 04-09-2025 [...] have reviewed and approved this report. Normal [facility] XR CHEST 1 VIEW PORTABLE EXAM: XR CHEST 1 VIEW PORTABLE, 04/08/2025 15:49 PM COMPARISON: No prior studies available for comparison. CLINICAL INDICATIONS: Trauma RELEVANT CLINICAL HISTORY: FINDINGS: (Adequate technique) Implanted Devices: None Thorax: No acute findings in the chest. IMPRESSION: No acute cardiopulmonary disease I personally viewed and interpreted these images and I have reviewed and approved this report. Normal [facility] XR FLUORO ESOPHAGUSon 2024 XR FLUORO ESOPHAGUS [...] leak. 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 Calcification of the bronchial [...] have reviewed and approved this report. Normal [facility] XR SHOULDER RIGHT 2+ VIEWSon 04-09-2025 XR [...] glenohumeral osteoarthritis and acromioclavicular arthritic changes. Normal [facility] XR Shoulder - right 2 Viewso n 04-09-2025 RADIOLOGY RADIOLOGY [facility] XR Shoulder - right 2 ViewsO rdered By: Prakash Nuñez on 04-09-2025 [facility] Work Phone: ALCOHOL (ETHANOL),BLOODon Ethanol Ql (Bld) mg/dL NINF - 10 mg/dL [facility] Interpretation and review of laboratory results [facility] Alcohol, Serum <10 Normal <10 [facility] Comment on above: Order Comment: Non-f randiic. Performed By: #### L DO, MGO, IPB, CHM7 #### [facility] (DEFAULT) [address] [place] [address] Absolute lymphocyte countOrd ered By: Shaun Camejo on 04-08-2025 Lymphocytes Auto (Unsp spec) [#/Vol] 1.12 10*3/uL 0.83-4.51 [facility] Absolute neutrophil countOrd ered By: Shaun Camejo on 04-08-2025 Neutrophils (Bld) [#/Vol] 2.7 10*3/uL 2.0-7.7 [facility] Activated partial thrombopla stin time (aPTT) in platelet poor plasma by coagulation aOrdered By: Shaun Camejo on 04-08-2025 aPTT Coag (PPP) [Time] 21.6 s Low 24.1-36.2 [facility] Anion gap in Serum or Plasma Ordered By: Shaun Camejo on 04-08-2025 Anion gap [Moles/Vol] 13 mmol/L 5-15 [facility] Automated lymphocyte count a s percentage of total leukocytesOrdered By: Shaun Camejo on 04-08-2025 Lymphocytes/100 WBC Auto (Unsp spec) 27.7 % 19-41 [facility] BUN/creatinine ratioOrdered By: Shaun Camejo on 04-08-2025 Urea nitrogen/Creatinine [Mass ratio] 17.8 mg/mg 10-20 [facility] Basophil percentageOrdered B y: Shaun Camejo on 04-08-2025 Basophils/100 WBC (Bld) 0.7 % 0-1 [facility] Bedside Glucoseon 04-08-2025 FINGERSTICK GLU 151 mg/dL High 74-106 [facility] Comment on above: Result Comment: [place] GEMENT OF PATIENT CARE PER NURSING PROTOCOL Performed By: #### L 501.080 ####[facility] [address] [place], [address] Bilirubin Test strip Ql (U)O rdered By: Shaun Camejo on 04-08-2025 Bilirubin Ql (U) Negative Negative [facility] Bilirubin directOrdered By: Shaun Camejo on 04-08-2025 Bilirubin.direct [Mass/Vol] 0.24 mg/dL 0.00-0.30 [facility] Bilirubin, totalOrdered By: Shaun Camejo on 04-08-2025 Bilirubin [Mass/Vol] 0.51 mg/dL 0.00-1.30 [facility] Blood cultureOrdered By: Ginette Camejo on 04-08-2025 Bacteria identified Cx Nom (Bld) No growth in 5 days. [facility] Blood manual differential co mment interpretation (narrative result)Ordered By: Shaun Camejo on 04-08-2025 Manual differential comment Nba (Bld) [Interp] SCANNED [facility] CBC AND ELECTRONIC DIFFon Basophils (Bld) [#/Vol] K/uL 0.00 - 0.15 K/uL [facility] Basophils/100 WBC (Bld) 0.3 % [facility] Differential cell count method Nom (Bld) Electronic Differential [facility] Eosinophils (Bld) [#/Vol] K/uL 0.00 - 0.42 K/uL [facility] Eosinophils/100 WBC (Bld) 0 % [facility] Erythrocyte distribution width (RBC) [Ratio] 17.7 % High 10.8 - 14.9 % [facility] Hematocrit (Bld) [Volume fraction] 28.9 % Low 34.9 - 44.3 % [facility] Hemoglobin (Bld) [Mass/Vol] 9.4 g/dL Low 11.4 - 15.2 g/dL [facility] Immature granulocytes (Bld) [#/Vol] K/uL NINF - 0.08 K/uL [facility] Immature granulocytes/100 WBC (Bld) 0.3 % [facility] Interpretation and review of laboratory results Abnormal [facility] Lymphocytes (Bld) [#/Vol] 0.64 10*3/uL Low 1.16 - 3.51 K/uL [facility] Lymphocytes/100 WBC (Bld) 6.9 % [facility] MCH (RBC) [Entitic mass] 35.3 pg High 25.9 - 33.9 pg [facility] MCHC (RBC) [Mass/Vol] 32.5 g/dL 31.4 - 35.9 g/dL [facility] MCV (RBC) [Entitic vol] 108.6 fL High 79.6 - 97.7 fL [facility] Monocytes (Bld) [#/Vol] 0.44 10*3/uL 0.22 - 0.87 K/uL [facility] Monocytes/100 WBC (Bld) 4.7 % [facility] Neutrophils (Bld) [#/Vol] 8.15 10*3/uL High 1.64 - 7.28 K/uL [facility] Nucleated RBC/100 WBC (Bld) [Ratio] 0.2 % NINF [facility] Platelet mean volume (Bld) [Entitic vol] 8.9 fL 8.5 - 12.2 fL [facility] Platelets (Bld) [#/Vol] 152 10*3/uL 150 - 393 K/uL [facility] RBC (Bld) [#/Vol] 2.66 10*6/uL Low [facility] Segmented neutrophils/100 WBC (Bld) 87.8 % [facility] WBC (Bld) [#/Vol] 9.29 10*3/uL 3.99 - 11.19 K/uL [facility] Abs Baso Auto < Normal 0.00-0.15 [facility] Comment on above: Performed By: #### L DO MGCinda IPOlga, LUCIE7 #### [facility] (DEFAULT) [address] [address] Abs Eos Auto < Normal 0.00-0.42 [facility] Comment on above: Performed By: #### L DO MGO, IPB, CHM7 #### [facility] (DEFAULT) [address] [place] [address] Basophils/100 WBC (Bld) 0.3 % Normal [facility] Comment on above: Performed By: #### L DO, MGO, IPB, CHM7 #### [facility] (DEFAULT) [address] [place] [address] DIFF STATUS Electronic Differential Normal [facility] Comment on above: Performed By: #### L DO, MGO, IPB, CHM7 #### [facility] (DEFAULT) [address] [place] [address] Eosinophils/100 WBC (Bld) 0.0 % Normal [facility] Comment on above: Performed By: #### L DO, MGO, IPB, CHM7 #### [facility] (DEFAULT) [address] [place] [address] Hematocrit (Bld) [Volume fraction] 28.9 % Low 34.9-44.3 [facility] Comment on above: Performed By: #### L DO, MGO, IPB, CHM7 #### [facility] (DEFAULT) [address] [place] [address] Hemoglobin (Bld) [Mass/Vol] 9.4 g/dL Low 11.4-15.2 [facility] Comment on above: Performed By: #### L DO, MGO, IPB, CHM7 #### [facility] (DEFAULT) [address] [place] [address] Immature Grans % 0.3 % Normal [facility] Comment on above: Performed By: #### L DO, MGO, IPB, CHM7 #### [facility] (DEFAULT) [address] [place] [address] Immature Grans Absolute < Normal <=0.08 [facility] Comment on above: Performed By: #### L DO, MGO, IPB, CHM7 #### [facility] (DEFAULT) [address] [place] [address] Lymphocytes (Bld) [#/Vol] 0.64 10*3/uL Low 1.16-3.51 [facility] Comment on above: Performed By: #### L DO, MGO, IPB, CHM7 #### [facility] (DEFAULT) [address] [place] [address] Lymphocytes/100 WBC (Bld) 6.9 % Normal [facility] Comment on above: Performed By: #### L DO, MGO, IPB, CHM7 #### [facility] (DEFAULT) [address] [place] [address] MCV (RBC) [Entitic vol] 108.6 fL High 79.6-97.7 [facility] Comment on above: Performed By: #### L DO, MGO, IPB, CHM7 #### [facility] (DEFAULT) [address] [place] [address] Mean Cell Hgb 35.3 pg High 25.9-33.9 [facility] Comment on above: Performed By: #### L DO, MGO, IPB, CHM7 #### [facility] (DEFAULT) [address] [place] [address] Mean Cell Hgb Conc 32.5 g/dL Normal 31.4-35.[address] [facility] Comment on above: Performed By: #### L DO, MGO, IPB, CHM7 #### [facility] (DEFAULT) [address] [place] [address] Monocytes (Bld) [#/Vol] 0.44 10*3/uL Normal 0.22-0.87 [facility] Comment on above: Performed By: #### L DO, MGO, IPB, CHM7 #### [facility] (DEFAULT) [address] [place] [address] Monocytes/100 WBC (Bld) 4.7 % Normal [facility] Comment on above: Performed By: #### L DO, MGO, IPB, CHM7 #### [facility] (DEFAULT) [address] [place] [address] Nucleated RBC 0.2 /100 WBC Normal <=0.2 [facility] Comment on above: Performed By: #### L DO, MGO, IPB, CHM7 #### [facility] (DEFAULT) [address] [place] [address] Platelet mean volume (Bld) [Entitic vol] 8.9 fL Normal 8.5-12.2 [facility] Comment on above: Performed By: #### L DO, MGO, IPB, CHM7 #### [facility] (DEFAULT) [address] [place] [address] Platelets (Bld) [#/Vol] 152 10*3/uL Normal 150-393 [facility] Comment on above: Performed By: #### L DO, MGO, IPB, CHM7 #### [facility] (DEFAULT) [address] [place] [address] RBC (Bld) [#/Vol] 2.66 10*6/uL Low 3.91-5.04 [facility] Comment on above: Performed By: #### L DO, MGO, IPB, CHM7 #### [facility] (DEFAULT) [address] [place] [address] RBC Distribution 17.7 % High 10.8-14.9 [facility] Comment on above: Performed By: #### L DO, MGO, IPB, CHM7 #### [facility] (DEFAULT) [address] [place] [address] Segs + Bands Auto 87.8 % Normal [facility] Comment on above: Performed By: #### L DO, MGO, IPB, CHM7 #### [facility] (DEFAULT) [address] [place] [address] Segs + Bands,Absolute Auto 8.15 K/uL High 1.64-7.28 [facility] Comment on above: Performed By: #### L ARNEL TOBIAS IPB, CHM7 #### [facility] (DEFAULT) [address] [place] [address] WBC (Bld) [#/Vol] 9.29 10*3/uL Normal 3.99-11.19 [facility] Comment on above: Performed By: #### L ARNEL TOBIAS, UBALDO, CHM7 #### [facility] (DEFAULT) [address] [place] [address] CBC W/Diff, Automatedon 03-16 Anisocytosis Ql (Bld) 2+ Normal [facility] Comment on above: Performed By: #### L 503.6005, L100.0100, L501.4021, M200.1000, L300.4310, L500.4050, L500.3400 ####[facility] [address] [place], [place], [id number] SMEAR COMMENT SCANNED Normal [facility] Comment on above: Performed By: #### L 503.6005, L100.0100, L501.4021, M200.1000, L300.4310, L500.4050, L500.3400 ####[facility] [address] [place], [place], [id number] CBC,PLATELETSon 04-08-2025 Erythrocyte distribution width (RBC) [Ratio] 17.6 % High 10.8 - 14.9 % [facility] Hematocrit (Bld) [Volume fraction] 22.2 % Low 34.9 - 44.3 % [facility] Hemoglobin (Bld) [Mass/Vol] 7.3 g/dL Low 11.4 - 15.2 g/dL [facility] Interpretation and review of laboratory results Abnormal [facility] MCH (RBC) [Entitic mass] 35.6 pg High 25.9 - 33.9 pg [facility] MCHC (RBC) [Mass/Vol] 32.9 g/dL 31.4 - 35.9 g/dL [facility] MCV (RBC) [Entitic vol] 108.3 fL High 79.6 - 97.7 fL [facility] Platelet mean volume (Bld) [Entitic vol] 10.1 fL 8.5 - 12.2 fL [facility] Platelets (Bld) [#/Vol] 131 10*3/uL Low 150 - 393 K/uL [facility] RBC (Bld) [#/Vol] 2.05 10*6/uL Low [facility] WBC (Bld) [#/Vol] 6.54 10*3/uL 3.99 - 11.19 K/uL [facility] Hematocrit (Bld) [Volume fraction] 22.2 % Low 34.9-44.3 [facility] Comment on above: Performed By: #### L DO, MGO, IPB, CHM7 #### [facility] (DEFAULT) [address] [address] Hemoglobin (Bld) [Mass/Vol] 7.3 g/dL Low 11.4-15.2 [facility] Comment on above: Result Comment: Resu lts inconsistent with previous results. Performed By: #### L DO, MGO, IPB, CHM7 #### [facility] (DEFAULT) [address] [place] [address] MCV (RBC) [Entitic vol] 108.3 fL High 79.6-97.7 [facility] Comment on above: Performed By: #### L DO, MGO, IPB, CHM7 #### [facility] (DEFAULT) [address] [address] Mean Cell Hgb 35.6 pg High 25.9-33.9 [facility] Comment on above: Performed By: #### L DO, MGO, IPB, CHM7 #### [facility] (DEFAULT) [address] [place] [address] Mean Cell Hgb Conc 32.9 g/dL Normal 31.4-35.[address] [facility] Comment on above: Performed By: #### L DO, MGO, IPB, CHM7 #### [facility] (DEFAULT) [address] [place] [address] Platelet mean volume (Bld) [Entitic vol] 10.1 fL Normal 8.5-12.2 [facility] Comment on above: Performed By: #### L DO, MGO, IPB, CHM7 #### [facility] (DEFAULT) [address] [place] [address] Platelets (Bld) [#/Vol] 131 10*3/uL Low 150-393 [facility] Comment on above: Performed By: #### L DO, MGO, IPB, CHM7 #### [facility] (DEFAULT) [address] [place] [address] RBC (Bld) [#/Vol] 2.05 10*6/uL Low 3.91-5.04 [facility] Comment on above: Performed By: #### L DO, MGO, IPB, CHM7 #### [facility] (DEFAULT) [address] [place] [address] RBC Distribution 17.6 % High 10.8-14.9 [facility] Comment on above: Performed By: #### L DO, MGO, IPB, CHM7 #### [facility] (DEFAULT) [address] [place] [address] WBC (Bld) [#/Vol] 6.54 10*3/uL Normal 3.99-11.19 [facility] Comment on above: Performed By: #### L DO, MGO, IPB, CHM7 #### [facility] (DEFAULT) [address] [place] [address] [facility] 7 - EDon 04-08-2025 Anion gap [Moles/Vol] 12 mmol/L 7 - 17 mmol/L [facility] Chloride [Moles/Vol] 108 mmol/L 98 - 10 8 mmol/L [facility] CO2 [Moles/Vol] 20 mmol/L Low 21 - 31 mmol/L [facility] Creatinine [Mass/Vol] 0.99 mg/dL 0.50 - 1.20 mg/dL [facility] eGFR, CKD-EPI, Female 57 Low - PINF [facility] Glucose [Mass/Vol] 192 mg/dL High 70 - 179 mg/dL [facility] Interpretation and review of laboratory results Abnormal [facility] Osmolality Calc [Osmolality] 294 [facility] Potassium [Moles/Vol] 4.3 mmol/L 3.5 - 5.0 mmol/L [facility] Sodium [Moles/Vol] 136 mmol/L 135 - 145 mmol/L [facility] Urea nitrogen [Mass/Vol] 20 mg/dL 7 - 25 mg/dL [facility] Urea nitrogen/Creatinine [Mass ratio] 20 mg/mg [facility] Anion gap [Moles/Vol] 12 mmol/L Normal 7-17 [facility] Comment on above: Performed By: #### L DO, MGO, IPB, CHM7 #### [facility] (DEFAULT) [address] [place] [address] Chloride [Moles/Vol] 108 mmol/L Normal 98-108 [facility] Comment on above: Performed By: #### L DO, MGO, IPB, CHM7 #### [facility] (DEFAULT) [address] [place] [address] CO2 [Moles/Vol] 20 mmol/L Low 21-31 [facility] Comment on above: Performed By: #### L DO, MGO, IPB, CHM7 #### [facility] (DEFAULT) [address] [place] [address] Creatinine [Mass/Vol] 0.99 mg/dL Normal 0.50-1.20 [facility] Comment on above: Performed By: #### L DO, MGO, IPB, CHM7 #### [facility] (DEFAULT) [address] [place] [address] GFR/1.73 sq M.predicted among non-blacks MDRD (S/P/Bld) [Vol rate/Area] 57 mL/min/{1.73_m2} Low >=60 [facility] Comment on above: Result Comment: Repo rted eGFR is based on the CKD-EPI 2020 equation using creatinine, age, and sex. Performed By: #### L DO, MGO, IPB, CHM7 #### [facility] (DEFAULT) [address] [place] [address] Glucose [Mass/Vol] 192 mg/dL High Nonfastin -179 mg/dL; Fastin-99 [facility] Comment on above: Performed By: #### L DO, MGO, IPB, CHM7 #### [facility] (DEFAULT) [address] [place] [address] Osmolality [Osmolality] 294 mosm/kg Normal 278-305 [facility] Comment on above: Performed By: #### L DO, MGO, IPB, CHM7 #### [facility] (DEFAULT) [address] [place] [address] Sodium [Moles/Vol] 136 mmol/L Normal 135-[address] [facility] Comment on above: Performed By: #### L DO, MGO, IPB, CHM7 #### [facility] (DEFAULT) [address] [place] [address] Urea nitrogen [Mass/Vol] 20 mg/dL Normal 7-25 [facility] Comment on above: Performed By: #### L DO, MGO, IPB, CHM7 #### [facility] (DEFAULT) [address] [place] [address] Urea nitrogen/Creatinine [Mass ratio] 20 mg/mg Normal [facility] Comment on above: Performed By: #### L DO, MGO, IPB, CHM7 #### [facility] (DEFAULT) [address] [place] [address] CT Chest, Abd, Pel w/Contras ton 04-08-2025 CT Chest, Abd, Pel w/Contrast Normal [facility] Carbon dioxide, total [Moles /volume] in Central venous bloodOrdered By: Shaun Camejo on 04-08-2025 CO2 [Moles/Vol] 18.3 mmol/L Low 21.0-32.0 [facility] Chloride assayOrdered By: Destin Camejo on 04-08-2025 Chloride [Moles/Vol] 106 mmol/L 98-108 [facility] Comprehensive Metabolic Prof ilon 04-08-2025 Albumin/Globulin [Mass ratio] 1.7 {ratio} Normal 0.9-2.4 [facility] Comment on above: Performed By: #### L 503.6005, L100.0100, L501.4021, M200.1000, L300.4310, L500.4050, L500.3400 ####[facility] [address] [place], [address] BUN/CRE 17.8 RATIO Normal 10-20 [facility] Comment on above: Performed By: #### L 503.6005, L100.0100, L501.4021, M200.1000, L300.4310, L500.4050, L500.3400 ####[facility] [address] [place], [address] Calcium [Mass/Vol] 8.5 mg/dL Normal 7.6-11.0 [facility] Comment on above: Performed By: #### L 503.6005, L100.0100, L501.4021, M200.1000, L300.4310, L500.4050, L500.3400 ####[facility] [address] [place], [address] Chloride [Moles/Vol] 106 mmol/L Normal 98-108 [facility] Comment on above: Performed By: #### L 503.6005, L100.0100, L501.4021, M200.1000, L300.4310, L500.4050, L500.3400 ####[facility] [address] [place], [address] CO2 [Moles/Vol] 18.3 mmol/L Low 21.0-32.0 [facility] Comment on above: Performed By: #### L 503.6005, L100.0100, L501.4021, M200.1000, L300.4310, L500.4050, L500.3400 ####[facility] [address] [place], [address] Creatinine [Mass/Vol] 1.01 mg/dL Normal 0.70-1.20 [facility] Comment on above: Performed By: #### L 503.6005, L100.0100, L501.4021, M200.1000, L300.4310, L500.4050, L500.3400 ####[facility] [address] [place], [address] ECRCL 42.27 ml/min Low 50-250 [facility] Comment on above: Performed By: #### L 503.6005, L100.0100, L501.4021, M200.1000, L300.4310, L500.4050, L500.3400 ####[facility] [address] [place], [address] GAP 13 Normal 5-15 [facility] Comment on above: Performed By: #### L 503.6005, L100.0100, L501.4021, M200.1000, L300.4310, L500.4050, L500.3400 ####[facility] [address] [place], [address] GFR/1.73 sq M.predicted among non-blacks MDRD (S/P/Bld) [Vol rate/Area] 56 mL/min/{1.73_m2} Low >60 [facility] Comment on above: Result Comment: mL/m in/1.73m2 CKD-EPI Creatinine Equation (2020) Performed By: #### L 503.6005, L100.0100, L501.4021, M200.1000, L300.4310, L500.4050, L500.3400 ####[facility] [address] [place], [address] Glucose [Mass/Vol] 170 mg/dL High 70-99 [facility] Comment on above: Performed By: #### L 503.6005, L100.0100, L501.4021, M200.1000, L300.4310, L500.4050, L500.3400 ####[facility] [address] [place], [address] Potassium [Moles/Vol] 4.3 mmol/L Normal 3.3-5.1 [facility] Comment on above: Performed By: #### L 503.6005, L100.0100, L501.4021, M200.1000, L300.4310, L500.4050, L500.3400 ####[facility] [address] [place], [address] Sodium [Moles/Vol] 137 mmol/L Normal 133-145 [facility] Comment on above: Performed By: #### L 503.6005, L100.0100, L501.4021, M200.1000, L300.4310, L500.4050, L500.3400 ####[facility] [address] [place], [address] Urea nitrogen [Mass/Vol] 18 mg/dL Normal 4-19 [facility] Comment on above: Performed By: #### L 503.6005, L100.0100, L501.4021, M200.1000, L300.4310, L500.4050, L500.3400 ####[facility] [address] [place], [address] Emergency Department Summary on 04-08-2025 Emergency Department Summary Normal [facility] Eosinophil percentageOrdered By: Shaun Camejo on 04-08-2025 Eosinophils/100 WBC (Bld) 0.7 % 0-5 [facility] Erythrocyte distribution wid th ratioOrdered By: Shaun Camejo on 04-08-2025 Erythrocyte distribution width (RBC) [Ratio] 17.8 % High 11.6-14.6 [facility] Erythrocyte distribution wid th standard deviationOrdered By: Shaun Camejo on 04-08-2025 Erythrocyte distribution width (RBC) [Ratio] 67.8 fl High 35.1-43.9 [facility] GLUCOSE POCon 04-08-2025 Glucose [Mass/Vol] 183 mg/dL High 70 - 179 mg/dL [facility] Interpretation and review of laboratory results Abnormal [facility] POC Sample Type VENO [facility] Glomerular filtration rate ( GFR) estimation/1.73 sq m using serum, plasma, or whole bOrdered By: Shaun Camejo on 04-08-2025 GFR/1.73 sq M.predicted among non-blacks MDRD (S/P/Bld) [Vol rate/Area] 56 mL/min/{1.73_m2} Low >60 [facility] Comment on above: mL/min/1.73m2 CKD-EP I Creatinine Equation (2020) [facility] deOrdered By: Shaun Camejo on 04-08-2025 Glucose [Mass/Vol] 151 mg/dL High 74-106 [facility] Comment on above: MANAGEMENT OF PATIEN T CARE PER NURSING PROTOCOL HIGH SENSITIVITY TROPONIN I - SINGLE ORDERon 04-08-2025 Interpretation and review of laboratory results Normal [facility] Troponin I.cardiac High sensitivity method [Mass/Vol] 15 ng/L NINF - 34 ng/L [facility] hs-Troponin I 15 ng/L Normal <34 [facility] Comment on above: Order Comment: Acute Coronary Syndrome (ACS): Initial Evaluation and Management:[email or web address] Performed By: #### I CA #### [facility] (DEFAULT) [address] [address] [address] Hematocrit Auto (Bld) [Volum e fraction]Ordered By: Shaun Camejo on 04-08-2025 Hematocrit (Bld) [Volume fraction] 29.8 % Low 37-47 [facility] Hemoglobin measurementOrdere d By: Shaun Camejo on 04-08-2025 Hemoglobin (Bld) [Mass/Vol] 10.2 g/dL Low 12.0-15.0 [facility] Immature granulocytes/100 WB C Auto (Bld)Ordered By: Shaun Camejo on 04-08-2025 Immature granulocytes/100 WBC (Bld) 0.500 % 0.0-0.9 [facility] Comment on above: IG% - Immature Granu locytes (promyelocytes, myelocytes and metamyelocytes) > 1% indicates that a LEFT SHIFT is Present. International normalized rat io (INR) calculationOrdered By: Shaun Camejo on 04-08-2025 INR Coag (Bld) [Relative time] 1.3 {INR} [facility] Ketones Test strip Ql (U)Ord ered By: Shaun Camejo on 04-08-2025 Ketones Ql (U) Negative Negative [facility] L499.0042on 04-08-2025 Trop T High Sen 15 ng/L High <=14 [facility] Comment on above: Performed By: #### L 499.0042 ####[facility] [address] [place], [place], [address] L499.0043on 04-08-2025 Trop T High Sen Normal <=14 [facility] Comment on above: Result Comment: Canc elled via OM: Order cancelled - Patient discharged Performed By: #### L 499.0043 ####[facility] [address] [place], [address] L501.4021on 04-08-2025 Trop T High Sen 20 ng/L High <=14 [facility] Comment on above: Performed By: #### L 503.6005, L100.0100, L501.4021, M200.1000, L300.4310, L500.4050, L500.3400 ####[facility] [address] [place], [address] LIPID PANEL W CALCULATED LDL on 04-08-2025 Cholesterol [Mass/Vol] 158 mg/dL NINF - 200 mg/dL [facility] Cholesterol in HDL [Mass/Vol] 47 mg/dL 40 - PINF mg/dL [facility] Cholesterol in LDL [Mass/Vol] 94 mg/dL 0 - 99 mg/dL [facility] Cholesterol non HDL [Mass/Vol] 111 mg/dL NINF - 130 mg/dL [facility] Cholesterol.total/Chol esterol in HDL [Mass ratio] 3.4 {ratio} NINF - 4.5 [facility] Interpretation and review of laboratory results Normal [facility] Triglyceride [Mass/Vol] 84 mg/dL NINF - 150 mg/dL [facility] Calculated LDL Cholesterol 94 mg/dL Normal 0-99 [facility] Comment on above: Result Comment: [<10 0 mg/dL: Optimal] [100-129 mg/dL: Near Optimal] [130-159 mg/dL: Borderline High] [160-189 mg/dL: High] [>189 mg/dL: Very High] Performed By: #### L , ARNEL, UBALDO, CHM7 #### [facility] (DEFAULT) [address] [place] [address] Cholesterol [Mass/Vol] 158 mg/dL Normal <200 [facility] Comment on above: Result Comment: [<20 0 mg/dL: Desirable] [200-239 mg/dL: Borderline High] [>239 mg/dL: High] Performed By: #### L DO, MGO, IPB, CHM7 #### [facility] (DEFAULT) [address] [place] [address] Cholesterol in HDL [Mass/Vol] 47 mg/dL Normal >=40 [facility] Comment on above: Result Comment: [<40 mg/dL: Low (High Risk)] [>59 mg/dL: High (Low Risk)] Performed By: #### L DO, MGO, IPB, CHM7 #### [facility] (DEFAULT) [address] [place] [address] Non HDL Cholesterol 111 mg/dL Normal <130 [facility] Comment on above: Performed By: #### L DO, MGO, IPB, CHM7 #### [facility] (DEFAULT) [address] [place] [address] Total Cholesterol/HDL Ratio 3.4 Normal <4.5 [facility] Comment on above: Performed By: #### L DO, MGO, IPB, CHM7 #### [facility] (DEFAULT) [address] [place] [address] Triglyceride [Mass/Vol] 84 mg/dL Normal <150 [facility] Comment on above: Result Comment: [<15 0 mg/dL: Desirable] [150-199 mg/dL: Borderline] [200-499 mg/dL: High] [>500 mg/dL: Very High] Performed By: #### L DO, MGO, IPB, CHM7 #### [facility] (DEFAULT) [address] [place] [address] Laboratory - Chemistry and C hemistry - challengeOrdered By: Shaun Camejo on 04-08-2025 AST [Catalytic activity/Vol] 20 U/L <32 [facility] Laboratory - Hematology and Cell countsOrdered By: Shaun Camejo on 04-08-2025 Anisocytosis Ql (Bld) 2+ [facility] Lactic Acidon 04-08-2025 Lactate [Moles/Vol] 2.0 mmol/L Normal 0.0-2.0 [facility] Comment on above: Order Comment: Y Result Comment: Crit ical Result(s) Called to: Shayy RN (ER) by:Brisa??Results read back by same. Performed By: #### L 503.6005, L100.0100, L501.4021, M200.1000, L300.4310, L500.4050, L500.3400 ####[facility] [address] [place], [address] Lactic acid measurementOrder ed By: Shaun Camejo on 04-08-2025 Lactate [Moles/Vol] 2.0 mmol/L 0.0-2.0 [facility] Comment on above: Critical Result(s) C alled to: Shayy SHELDON (ER) by: Brisa Results read back by same. Liver Profileon 04-08-2025 Albumin [Mass/Vol] 3.6 g/dL Normal 3.4-4.8 [facility] Comment on above: Performed By: #### L 503.6005, L100.0100, L501.4021, M200.1000, L300.4310, L500.4050, L500.3400 ####[facility] [address] [place], [address] ALK PHOS 29 U/L Low 35-104 [facility] Comment on above: Performed By: #### L 503.6005, L100.0100, L501.4021, M200.1000, L300.4310, L500.4050, L500.3400 ####[facility] [address] [place], [address] ALT [Catalytic activity/Vol] 13 U/L Normal <=34 [facility] Comment on above: Performed By: #### L 503.6005, L100.0100, L501.4021, M200.1000, L300.4310, L500.4050, L500.3400 ####[facility] [address] [place], [address] AST [Catalytic activity/Vol] 20 U/L Normal <=31 [facility] Comment on above: Performed By: #### L 503.6005, L100.0100, L501.4021, M200.1000, L300.4310, L500.4050, L500.3400 ####[facility] [address] [place], [address] Bilirubin [Mass/Vol] 0.51 mg/dL Normal 0.00-1.30 [facility] Comment on above: Performed By: #### L 503.6005, L100.0100, L501.4021, M200.1000, L300.4310, L500.4050, L500.3400 ####[facility] [address] [place], [address] Bilirubin.direct [Mass/Vol] 0.24 mg/dL Normal 0.00-0.30 [facility] Comment on above: Performed By: #### L 503.6005, L100.0100, L501.4021, M200.1000, L300.4310, L500.4050, L500.3400 ####[facility] [address] [place], [address] Globulin (S) [Mass/Vol] 2.1 g/dL Low 2.2-4.2 [facility] Comment on above: Performed By: #### L 503.6005, L100.0100, L501.4021, M200.1000, L300.4310, L500.4050, L500.3400 ####[facility] [address] [place], [address] T PROT 5.7 g/dL Low 5.9-8.4 [facility] Comment on above: Performed By: #### L 503.6005, L100.0100, L501.4021, M200.1000, L300.4310, L500.4050, L500.3400 ####[facility] [address] [place], [address] MCV (mean corpuscular volume ) determinationOrdered By: Shaun Camejo on 04-08-2025 MCV (RBC) [Entitic vol] 104.6 fL High 81-99 [facility] Mean corpuscular hemoglobin (MCH) determinationOrdered By: Shaun Camejo on 04-08-2025 MCH (RBC) [Entitic mass] 35.8 pg High 27.0-32.0 [facility] Mean corpuscular hemoglobin concentration (MCHC) determinationOrdered By: Shaun Camejo on 04-08-2025 MCHC (RBC) [Mass/Vol] 34.2 g/dL 32-36 [facility] Mean platelet volume determi nationOrdered By: Shaun Camejo on 04-08-2025 Platelet mean volume (Bld) [Entitic vol] 8.8 fL 6.2-12.0 [facility] Microscopic analysis of urin e for red blood cells (RBC)Ordered By: Shaun Camejo on 04-08-2025 Microscopic analysis of urine for red blood cells (RBC) 0-5 SEEN /hpf 0-5 [facility] Monocyte percentageOrdered B y: Shaun Camejo on 04-08-2025 Monocytes/100 WBC (Bld) 4.7 % 0-10 [facility] Mucus LM Ql (Urine sed)Order ed By: Shaun Camejo on 04-08-2025 Mucus Ql (Urine sed) 0 SEEN /hpf [facility] Neutrophil percentageOrdered By: Shaun Camejo on 04-08-2025 Neutrophils/100 WBC (Bld) 65.7 % 47-70 [facility] Nitrite Test strip Ql (U)Ord ered By: Shaun Camejo on 04-08-2025 Nitrite Ql (U) Positive High Negative [facility] No Panel Informationon 04-08 Radiology Study observation (narrative) [facility] No Panel InformationOrdered By: Shaun Camejo on 04-08-2025 2+ [facility] 20 U/L <32 [facility] Nucleated red blood cell per centageOrdered By: Shaun Camejo on 04-08-2025 Nucleated RBC/100 WBC (Bld) [Ratio] 0.5 % 0-5 [facility] PREPARE TO TRANSFUSE RED BLO OD CELLSon 04-08-2025 ABO/RH(D) TYPE Positive [facility] BLOOD COMPONENT TYPE Red Cells, Leukoreduced [facility] EXPIRATION DATE [id number] [facility] Product ABO/RH(D) Positive [facility] Product ABO/RH(D) NUMBER 5100 [facility] PRODUCT CODE [id number] [facility] UNIT NUMBER [id number] [facility] UNIT STATUS transfused [facility] PROTIME-INRon 04-08-2025 INR Coag (Bld) [Relative time] 1.4 {INR} High 0.9 - 1.1 [facility] Interpretation and review of laboratory results Abnormal [facility] PT Coag (PPP) [Time] 16.9 s High [facility] INR Coag (PPP) [Relative time] 1.4 {INR} High 0.9-1.1 [facility] Comment on above: Performed By: #### G SVALL #### [facility] (DEFAULT) [address] [address] PT Coag (PPP) [Time] 16.9 s High 11.9-14.2 [facility] Comment on above: Performed By: #### G SVALL #### [facility] (DEFAULT) [address] [address] PTTOrdered By: Norman Howard on 04-08-2025 aPTT Coag (PPP) [Time] 22.4 s Low [facility] Interpretation and review of laboratory results Abnormal [facility] PTTon 04-08-2025 aPTT Coag (Bld) [Time] 22.4 s Low 24.0-34.3 [facility] Comment on above: Order Comment: Speci men integrity checked. Performed By: #### G TAMMY #### [facility] (DEFAULT) [address] [place] [address] Partial Thromboplast Timeon 04-08-2025 aPTT Coag (Bld) [Time] 21.6 s Low 24.1-36.2 [facility] Comment on above: Performed By: #### L 503.6005, L100.0100, L501.4021, M200.1000, L300.4310, L500.4050, L500.3400 ####[facility] [address] [place], [address] Platelet countOrdered By: Destin Camejo on 04-08-2025 Platelets (Bld) [#/Vol] 156 10*3/uL 150-450 [facility] Portable XR Chest Viewson Radiology Study observation (narrative) [facility] Potassium measurement (mass/ volume)Ordered By: Shaun Camejo on 04-08-2025 Potassium (Unsp spec) [Mass/Vol] 4.3 mmol/L 3.3-5.1 [facility] Protein Test strip Ql (U)Ord ered By: Shaun Camejo on 04-08-2025 Protein Ql (U) 30 mg/dl High Negative [facility] Prothrombin Time w/INRon INR Coag (PPP) [Relative time] 1.3 {INR} Normal [facility] Comment on above: Performed By: #### L 300.3900 ####[facility] [address] [place], [address] PT Coag (PPP) [Time] 16.8 s High 11.7-14.9 [facility] Comment on above: Performed By: #### L 300.3900 ####[facility] [address] [place], [address] Prothrombin timeOrdered By: Shaun Camejo on 04-08-2025 PT Coag (PPP) [Time] 16.8 s High 11.7-14.9 [facility] RBC Auto (Bld) [#/Vol]Ordere d By: Shaun Camejo on 04-08-2025 RBC (Bld) [#/Vol] 2.85 10*6/uL Low 4.2-5.4 [facility] STROKE Brain/Head without Co nton 04-08-2025 STROKE Brain/Head without Cont Normal [facility] STROKE CTA Head AND Neck W/C onon 04-08-2025 STROKE CTA Head AND Neck W/Con Normal [facility] Serum creatinine measurement (mass/volume)Ordered By: Shaun Camejo on 04-08-2025 Creatinine [Mass/Vol] 1.01 mg/dL 0.70-1.20 [facility] Serum globulin measurementOr dered By: Shaun Camejo on 04-08-2025 Globulin (S) [Mass/Vol] 2.1 g/dL Low 2.2-4.2 [facility] Serum glucose measurement (m ass/volume)Ordered By: Shaun Camejo on 04-08-2025 Glucose [Mass/Vol] 170 mg/dL High 70-99 [facility] Serum or plasma alanine eastman otransferase (ALT) measurementOrdered By: Shaun Camejo on 04-08-2025 ALT [Catalytic activity/Vol] 13 U/L <35 [facility] Serum or plasma albumin brandan urement (mass/volume)Ordered By: Shaun Camejo on 04-08-2025 Albumin [Mass/Vol] 3.6 g/dL 3.4-4.8 [facility] Serum or plasma albumin/glob ulin mass ratioOrdered By: Shaun Camejo on 04-08-2025 Albumin/Globulin [Mass ratio] 1.7 {ratio} 0.9-2.4 [facility] Serum or plasma alkaline katalina sphatase measurementOrdered By: Shaun Camejo on 04-08-2025 ALP [Catalytic activity/Vol] 29 U/L Low 35-104 [facility] Serum or plasma calcium brandan urement (mass/volume)Ordered By: Shaun Camejo on 04-08-2025 Calcium [Mass/Vol] 8.5 mg/dL 7.6-11.0 [facility] Serum or plasma urea nitroge n measurement (mass/volume)Ordered By: Shaun Camejo on 04-08-2025 Urea nitrogen [Mass/Vol] 18 mg/dL 4-19 [facility] Sinus/Facial Boneon 04-08-20 Sinus/Facial Bone Normal [facility] Sodium levelOrdered By: Soni Camejo on 04-08-2025 Sodium [Moles/Vol] 137 mmol/L 133-145 [facility] Spine Cervical without Contr ason 04-08-2025 Spine Cervical without Contras Normal [facility] Squamous epithelial cells de tection in urine sediment by light microscopyOrdered By: Shaun Camejo on 04-08-2025 Epithelial cells.squamous LM Ql (Urine sed) 0-5 SEEN /hpf 5-10 [facility] TSHon 04-08-2025 Interpretation and review of laboratory results Normal [facility] TSH Qn 0.733 m[IU]/L [facility] TSH 0.733 uIU/mL Normal 0.550-4.780 [facility] Comment on above: Performed By: #### L DO, MGO, IPB, CHM7 #### [facility] (DEFAULT) [address] [place] [address] TYPE AND SCREENon 04-08-2025 ABO/RH(D) TYPE Positive [facility] Specimen Expiration 04/11/2025 23:59 [facility] ABO/RH(D) TYPE Positive Normal [facility] Comment on above: Performed By: #### X M #### [facility] (DEFAULT) [address] [place] [address] Specimen Expiration 04/11/2025 23:59 Normal [facility] Comment on above: Performed By: #### X M #### [facility] (DEFAULT) [address] [place] [address] Tibia Fibula 2 Viewson 04-08 Tibia Fibula 2 Views Normal [facility] Total proteinOrdered By: Ginette Camejo on 04-08-2025 Protein [Mass/Vol] 5.7 g/dL Low 5.9-8.4 [facility] Troponin T.cardiac [Mass/vol ume] in Serum or Plasma by High sensitivity methodOrdered By: Shaun Camejo on 04-08-2025 Troponin T.cardiac High sensitivity method [Mass/Vol] 15 ng/L High <14 [facility] Troponin T.cardiac High sensitivity method [Mass/Vol] 20 ng/L High <14 [facility] Urinalysis, Completeon 04-08 BACTERIA 2+ /hpf Normal None Seen [facility] Comment on above: Order Comment: EILEEN TER SPECIMEN Performed By: #### L 400.0001, M100.2200 ####[facility] [address] [place], [address] EPI,SQUAMOUS 0-5 SEEN Normal 5-10 [facility] Comment on above: Order Comment: EILEEN TER SPECIMEN Performed By: #### L 400.0001, M100.2200 ####[facility] [address] [place], [address] RBC 0-5 SEEN Normal 0-5 [facility] Comment on above: Order Comment: EILEEN TER SPECIMEN Performed By: #### L 400.0001, M100.2200 ####[facility] [address] [place], [address] WBC 5-10 SEEN Normal 0-5 [facility] Comment on above: Order Comment: EILEEN TER SPECIMEN Performed By: #### L 400.0001, M100.2200 ####[facility] [address] [place], [address] Mucus Ql (Urine sed) 0 SEEN Normal [facility] Comment on above: Order Comment: EILEEN TER SPECIMEN Performed By: #### L 400.0001, M100.2200 ####[facility] [address] [place], [address] Urine clarityOrdered By: Ginette Camejo on 04-08-2025 Clarity (U) Cloudy Clear [facility] Urine color determinationOrd ered By: Shaun Camejo on 04-08-2025 Color (U) Yellow Yellow [facility] Urine cultureOrdered By: Ginette Camejo on 04-08-2025 Bacteria identified Cx Nom (U) Escherichia coli Abnormal [facility] Urine glucose detectionOrder ed By: Shaun Camejo on 04-08-2025 Glucose Ql (U) Normal mg/dl Normal [facility] Urine leukocyte esterase det ection by dipstickOrdered By: Shaun Camejo on 04-08-2025 Leukocyte esterase Test strip Ql (U) 25 /ul High Negative [facility] Urine pHOrdered By: Shaun moran on 04-08-2025 pH (U) 6.0 [pH] 5.0 - 8.0 [facility] Urine sediment bacteria coun t by microscopy (number/high power field)Ordered By: Shaun Camejo on 04-08-2025 Bacteria LM.HPF (Urine sed) [#/Area] 2 /[HPF] None Seen [facility] Urine specific gravity measu rementOrdered By: Shaun Camejo on 04-08-2025 Specific gravity (U) [Rel density] 1.025 1.002-1.030 [facility] Urine urobilinogen measureme ntOrdered By: Shaun Camejo on 04-08-2025 Urobilinogen Ql (U) Normal mg/dl Normal [facility] VENOUS BLOOD GAS (FULL PANEL )on 04-08-2025 Base excess Calc (Bld) [Moles/Vol] -4.3000 mmol/L Low -3.0 - 3.0 mmol/L [facility] Calcium.ionized (Bld) [Mass/Vol] 4.53 mg/dL Low 4.60 - 5.30 mg/dL [facility] Carboxyhemoglobin (Bld) [Mass fraction] 0.7 % NINF - 1.5 % [facility] CO2 (Bld) [Partial pressure] 41 mm[Hg] [facility] Glucose [Mass/Vol] 188 mg/dL High 70 - 179 mg/dL [facility] HCO3 (Bld) [Moles/Vol] 22 mmol/L 22 - 29 mmol/L [facility] Hematocrit (Bld) [Volume fraction] 29 % Low 34 - 46 % [facility] Hemoglobin (Bld) [Mass/Vol] 9.8 g/dL Low 11.4 - 15.2 g/dL [facility] Interpretation and review of laboratory results Abnormal [facility] Lactate [Moles/Vol] 1.9 mmol/L High 0.5 - 1. 6 mmol/L [facility] Methemoglobin (Bld) [Mass fraction] 0 % NINF - 1.5 % [facility] Oxygen (Bld) [Partial pressure] 35 mm[Hg] mm Hg [facility] Oxygen saturation in Blood 53 % Low 70 - 80 % [facility] Oxyhemoglobin 53 % Low 94 - 98 % [facility] pH (Bld) 7.33 [pH] 7.32 - 7.43 [facility] Potassium [Moles/Vol] 4.3 mmol/L 3.5 - 5.0 mmol/L [facility] Sodium [Moles/Vol] 132 mmol/L Low 135 - 145 mmol/L [facility] Specimen source Nom (Unsp spec) Venous [facility] Base Excess -4.3 mmol/L Low -3.0-3.0 [facility] Comment on above: Performed By: ###Kiel MUNOZ #### [facility] (DEFAULT) [address] [place] [address] Carboxyhemoglobin 0.7 % Normal <=1.5 [facility] Comment on above: Performed By: ###Kiel MUNOZ #### [facility] (DEFAULT) [address] [place] [address] Glucose [Mass/Vol] 188 mg/dL High Nonfastin g Glucose: 70-179 [facility] Comment on above: Performed By: ###Kiel MUNOZ #### [facility] (DEFAULT) [address] [place] [address] HCO3 (Bld) [Moles/Vol] 22 mmol/L Normal 22-29 [facility] Comment on above: Performed By: #### G SVALL #### [facility] (DEFAULT) [address] [place] [address] Hematocrit (Bld) [Volume fraction] 29 % Low 34-46 [facility] Comment on above: Performed By: #### G SVALL #### [facility] (DEFAULT) [address] [place] [address] Hemoglobin (Bld) [Mass/Vol] 9.8 g/dL Low 11.4-15.2 [facility] Comment on above: Performed By: #### G SVALL #### [facility] (DEFAULT) [address] [place] [address] Ionized Calcium, Whole Blood 4.53 mg/dL Low 4.60-5.30 [facility] Comment on above: Performed By: #### G SVALL #### [facility] (DEFAULT) [address] [place] [address] Lactate, Whole Blood 1.9 mmol/L High 0.5-1.6 [facility] Comment on above: Performed By: #### G SVALL #### [facility] (DEFAULT) [address] [place] [address] Methemoglobin 0.0 % Normal <=1.5 [facility] Comment on above: Performed By: #### G SVALL #### [facility] (DEFAULT) [address] [place] [address] Oxygen saturation in Blood 53 % Low 70-80 [facility] Comment on above: Performed By: #### G SVALL #### [facility] (DEFAULT) [address] [place] [address] Oxyhemoglobin 53 % Low 94-98 [facility] Comment on above: Performed By: #### G SVALL #### [facility] (DEFAULT) [address] [place] [address] pCO2, Venous 41 mm Hg Normal 36-52 [facility] Comment on above: Performed By: #### G SVALL #### [facility] (DEFAULT) [address] [place] [address] pH, Venous 7.33 Normal 7.32-7.43 [facility] Comment on above: Performed By: #### G SVALL #### [facility] (DEFAULT) [address] [place] [address] pO2, Venous 35 mm Hg Normal [facility] Comment on above: Result Comment: Veno us pO2 is not recommended for the evaluation of oxygen status, clinical correlation is recommended. Performed By: #### G SVALL #### [facility] (DEFAULT) [address] [place] [address] Potassium [Moles/Vol] 4.3 mmol/L Normal 3.5-5.0 [facility] Comment on above: Performed By: #### G SVALL #### [facility] (DEFAULT) [address] [place] [address] Performed By: #### L DO, MGO, IPB, CHM7 #### [facility] (DEFAULT) [address] [place] [address] Sodium [Moles/Vol] 132 mmol/L Low 135-[address] [facility] Comment on above: Performed By: #### G SVALL #### [facility] (DEFAULT) [address] [place] [address] Specimen type Nom (Spec) Venous Normal [facility] Comment on above: Performed By: #### G SVALL #### [facility] (DEFAULT) [address] [place] [address] VITAMIN D (25-HYDROXY,TOTAL) on 04-08-2025 Interpretation and review of laboratory results Normal [facility] Vitamin D+Metabolites [Mass/Vol] 67.4 ng/mL 30.0 - 100.0 ng/mL [facility] 25-OH Vitamin D Total 67.4 ng/mL Normal 30.0-100.0 [facility] Comment on above: Order Comment: Vitam in D values have been shown to be falsely decreased in lipemic samples and should be interpreted with caution. Result Comment: <10 Deficiency 10-29 Insufficiency 30-100 Optimal Level >100 Possible Toxicity Performed By: #### X M #### [facility] (DEFAULT) [address] [place] [address] VON WILLEBRAND FACTOR AGon 0 04-08-2025 Von Willebrand Factor Antigen 333 % High 50-180 [facility] Comment on above: Order Comment: Speci men is hemolyzed, results may be adversely affected. Performed By: #### X M #### [facility] (DEFAULT) [address] [place] [address] White blood cell (WBC) count Ordered By: Shaun Camejo on 04-08-2025 WBC (Bld) [#/Vol] 4.0 10*3/uL Low 4.4-11.0 [facility] White blood cell countOrdere d By: Shaun Camejo on 04-08-2025 White blood cell count 5-10 SEEN /hpf 0-5 [facility] XR PELVIS 1-2 VIEWSon 2024 XR PELVIS [...] osteoarthritis. IMPRESSION: No acute osseous abnormality. Normal [facility] XR Pelvis 2 Viewson 04-08-20 RADIOLOGY RADIOLOGY [facility] Radiology Study observation (narrative) [facility] XR Pelvis 2 ViewsOrdered By: Edson Lora on 04-08-2025 [facility] Work Phone: XR Shoulder - right 2 Viewso n 04-08-2025 Radiology Study observation (narrative) [facility] Bone density reportOrdered B y: Jones Rider on 04-07-2025 Study report Skeletal system DXA [facility] Imaging Services [address] [place] [address] Dexa Bone Density Study MR#: [id number] Acct: [id number] Name: ANAY SAMUELS Rep #: [id number] : 1945 F 79 From: Gurmeet Rider MD PCP: Dr. Jorge A Rinaldi MD Status: REG CL I Study:Dexa Bone Density Study Date of Exam: 04/07/25 Exam# [id number] Ordering Dr: Dina Rinaldi MD PROCEDURE: DEXA BONE DENSITY STUDY 04/07/2025 [...] Recommend follow-up as clinically warranted. Reading Location: [id number] CC: Dr. Jorge A Rinaldi MD ~ Trauma Program Manager: Signed [facility] Dexa Bone Density Studyon Dexa Bone Density Study Normal [facility] Oncology Visit Reporton 03-16 Oncology Visit Report Normal [facility] CA 15-3on 04-03-2025 CA 15-3 19.8 U/mL Normal 0.0-25.0 [facility] Comment on above: Result Comment: [employer] Electrochemiluminescence Immunoassay(ECLIA)Values obtained with different assay methods or kits cannotbe used interchangeably. Results cannot be interpreted asabsolute evidence of the presence or absence of malignantdisease.Performed at: [place] [id number] Director: Trev Joy PhD, Phone: [phone] Performed By: #### L 3100.5030, L500.4050, L3100.5040, L504.2610, L100.0100 ####[facility] [address] [place], [place], [id number] CA 27.29on 04-03-2025 CA 27.29 20.8 U/mL Normal 0.0-38.6 [facility] Comment on above: Result Comment: [employer] Immunochemiluminometric Methodology (ICMA)Values obtained with different assay methods or kits cannotbe used interchangeably. Results cannot be interpreted asabsolute evidence of the presence or absence of malignantdisease. Performed By: #### L 3100.5030, L500.4050, L3100.5040, L504.2610, L100.0100 ####[facility] [address] [place], [place], [id number] Absolute lymphocyte countOrd ered By: Alex Love on 04-02-2025 Lymphocytes Auto (Unsp spec) [#/Vol] 1.19 10*3/uL 0.83-4.51 [facility] Absolute neutrophil countOrd ered By: Alex Love on 04-02-2025 Neutrophils (Bld) [#/Vol] 3.0 10*3/uL 2.0-7.7 [facility] Anion gap in Serum or Plasma Ordered By: Alex Love on 04-02-2025 Anion gap [Moles/Vol] 10 mmol/L 5-15 [facility] Automated lymphocyte count a s percentage of total leukocytesOrdered By: Alex Love on 04-02-2025 Lymphocytes/100 WBC Auto (Unsp spec) 25.8 % 19-41 [facility] BUN/creatinine ratioOrdered By: Alex Love on 04-02-2025 Urea nitrogen/Creatinine [Mass ratio] 20.3 mg/mg High 10-20 [facility] Basophil percentageOrdered B y: Alex Love on 04-02-2025 Basophils/100 WBC (Bld) 0.7 % 0-1 [facility] Bilirubin, totalOrdered By: lAex Love on 04-02-2025 Bilirubin [Mass/Vol] 0.59 mg/dL 0.00-1.30 [facility] CA 15-3Ordered By: Alex yoon on 04-02-2025 CA 15-3 19.8 U/mL 0.0-25.0 [facility] Comment on above: [employer] El ectrochemiluminescence Immunoassay(ECLIA)Values obtained with different assay methods or kits cannotbe used interchangeably. Results cannot be interpreted asabsolute evidence of the presence or absence of malignantdisease.Performed at: [address] [id number] Director: Trev Joy PhD, Phone: [phone] CA 27.29Ordered By: Alex germain on 04-02-2025 CA 27.29 20.8 U/mL 0.0-38.6 [facility] Comment on above: [employer] Immu nochemiluminometric Methodology (ICMA)Values obtained with different assay methods or kits cannotbe used interchangeably. Results cannot be interpreted asabsolute evidence of the presence or absence of malignantdisease. CBC W/Diff, Automatedon - Anisocytosis Ql (Bld) 2+ Normal [facility] Comment on above: Performed By: #### L 3100.5030, L500.4050, L3100.5040, L504.2610, L100.0100 ####[facility] [address] [place], [address] Carbon dioxide, total [Moles /volume] in Central venous bloodOrdered By: Alex Love on 04-02-2025 CO2 [Moles/Vol] 22.3 mmol/L 21.0-32.0 [facility] Chloride assayOrdered By: Mariana Love on 04-02-2025 Chloride [Moles/Vol] 106 mmol/L 98-108 [facility] Comprehensive Metabolic Prof ilon 04-02-2025 Albumin [Mass/Vol] 3.8 g/dL Normal 3.4-4.8 [facility] Comment on above: Performed By: #### L 3100.5030, L500.4050, L3100.5040, L504.2610, L100.0100 ####[facility] [address] [place], [address] Albumin/Globulin [Mass ratio] 1.8 {ratio} Normal 0.9-2.4 [facility] Comment on above: Performed By: #### L 3100.5030, L500.4050, L3100.5040, L504.2610, L100.0100 ####[facility] [address] [place], [address] ALK PHOS 32 U/L Low 35-104 [facility] Comment on above: Performed By: #### L 3100.5030, L500.4050, L3100.5040, L504.2610, L100.0100 ####[facility] [address] [place], [address] ALT [Catalytic activity/Vol] 13 U/L Normal <=34 [facility] Comment on above: Performed By: #### L 3100.5030, L500.4050, L3100.5040, L504.2610, L100.0100 ####[facility] [address] [place], [address] AST [Catalytic activity/Vol] 18 U/L Normal <=31 [facility] Comment on above: Performed By: #### L 3100.5030, L500.4050, L3100.5040, L504.2610, L100.0100 ####[facility] [address] [place], [address] Bilirubin [Mass/Vol] 0.59 mg/dL Normal 0.00-1.30 [facility] Comment on above: Performed By: #### L 3100.5030, L500.4050, L3100.5040, L504.2610, L100.0100 ####[facility] [address] [place], [address] BUN/CRE 20.3 RATIO High 10-20 [facility] Comment on above: Performed By: #### L 3100.5030, L500.4050, L3100.5040, L504.2610, L100.0100 ####[facility] [address] [place], [address] Calcium [Mass/Vol] 8.8 mg/dL Normal 7.6-11.0 [facility] Comment on above: Performed By: #### L 3100.5030, L500.4050, L3100.5040, L504.2610, L100.0100 ####[facility] [address] [place], [address] Chloride [Moles/Vol] 106 mmol/L Normal 98-108 [facility] Comment on above: Performed By: #### L 3100.5030, L500.4050, L3100.5040, L504.2610, L100.0100 ####[facility] [address] [place], [address] CO2 [Moles/Vol] 22.3 mmol/L Normal 21.0-32.0 [facility] Comment on above: Performed By: #### L 3100.5030, L500.4050, L3100.5040, L504.2610, L100.0100 ####[facility] [address] [place], [address] Creatinine [Mass/Vol] 0.92 mg/dL Normal 0.70-1.20 [facility] Comment on above: Performed By: #### L 3100.5030, L500.4050, L3100.5040, L504.2610, L100.0100 ####[facility] [address] [place], [address] ECRCL 44.62 ml/min Low 50-250 [facility] Comment on above: Performed By: #### L 3100.5030, L500.4050, L3100.5040, L504.2610, L100.0100 ####[facility] [address] [place], [address] GAP 10 Normal 5-15 [facility] Comment on above: Performed By: #### L 3100.5030, L500.4050, L3100.5040, L504.2610, L100.0100 ####[facility] [address] [place], [address] GFR/1.73 sq M.predicted among non-blacks MDRD (S/P/Bld) [Vol rate/Area] 62 mL/min/{1.73_m2} Normal >60 [facility] Comment on above: Result Comment: mL/m in/1.73m2 CKD-EPI Creatinine Equation (2020) Performed By: #### L 3100.5030, L500.4050, L3100.5040, L504.2610, L100.0100 ####[facility] [address] [place], [address] Globulin (S) [Mass/Vol] 2.1 g/dL Low 2.2-4.2 [facility] Comment on above: Performed By: #### L 3100.5030, L500.4050, L3100.5040, L504.2610, L100.0100 ####[facility] [address] [place], [address] Glucose [Mass/Vol] 101 mg/dL High 70-99 [facility] Comment on above: Performed By: #### L 3100.5030, L500.4050, L3100.5040, L504.2610, L100.0100 ####[facility] [address] [place], [address] Potassium [Moles/Vol] 4.3 mmol/L Normal 3.3-5.1 [facility] Comment on above: Performed By: #### L 3100.5030, L500.4050, L3100.5040, L504.2610, L100.0100 ####[facility] [address] [place], [address] Sodium [Moles/Vol] 138 mmol/L Normal 133-145 [facility] Comment on above: Performed By: #### L 3100.5030, L500.4050, L3100.5040, L504.2610, L100.0100 ####[facility] [address] [place], [address] T PROT 5.9 g/dL Normal 5.9-8.4 [facility] Comment on above: Performed By: #### L 3100.5030, L500.4050, L3100.5040, L504.2610, L100.0100 ####[facility] [address] [place], [address] Urea nitrogen [Mass/Vol] 19 mg/dL Normal - [facility] Comment on above: Performed By: #### L 3100.5030, L500.4050, L3100.5040, L504.2610, L100.0100 ####[facility] [address] [place], [address] Eosinophil percentageOrdered By: Alex Ivan on 04-02-2025 Eosinophils/100 WBC (Bld) 1.5 % 0-5 [facility] Erythrocyte distribution wid th ratioOrdered By: [facility] on 04-02-2025 Erythrocyte distribution width (RBC) [Ratio] 17.7 % High 11.6-14.6 [facility] Erythrocyte distribution wid th standard deviationOrdered By: [facility] on 04-02-2025 Erythrocyte distribution width (RBC) [Ratio] 66.9 fl High 35.1-43.9 [facility] Glomerular filtration rate ( GFR) estimation/1.73 sq m using serum, plasma, or whole bOrdered By: [facility] on 04-02-2025 GFR/1.73 sq M.predicted among non-blacks MDRD (S/P/Bld) [Vol rate/Area] 62 mL/min/{1.73_m2} >60 [facility] Comment on above: mL/min/1.73m2 CKD-EP I Creatinine Equation (2020) Hematocrit Auto (Bld) [Volum e fraction]Ordered By: Alex Castellano on 04-02-2025 Hematocrit (Bld) [Volume fraction] 31.2 % Low 37-47 [facility] Hemoglobin measurementOrdere d By: [facility] on 04-02-2025 Hemoglobin (Bld) [Mass/Vol] 10.7 g/dL Low 12.0-15.0 [facility] Immature granulocytes/100 WB C Auto (Bld)Ordered By: Alex Love on 04-02-2025 Immature granulocytes/100 WBC (Bld) 0.700 % 0.0-0.9 [facility] Comment on above: IG% - Immature Granu locytes (promyelocytes, myelocytes and metamyelocytes) > 1% indicates that a LEFT SHIFT is Present. LDHon 04-02-2025 LDH 245 U/L Normal 84-246 [facility] Comment on above: Order Comment: 1 Performed By: #### L 3100.5030, L500.4050, L3100.5040, L504.2610, L100.0100 ####[facility] [address] [place], [address] Laboratory - Chemistry and C hemistry - challengeOrdered By: Alex Love on 04-02-2025 AST [Catalytic activity/Vol] 18 U/L <32 [facility] Laboratory - Hematology and Cell countsOrdered By: Alex Love on 04-02-2025 Anisocytosis Ql (Bld) 2+ [facility] Lactate dehydrogenase (LDH) measurementOrdered By: Alex Love on 04-02-2025 LDH [Catalytic activity/Vol] 245 U/L 84-246 [facility] MCV (mean corpuscular volume ) determinationOrdered By: Alex Love on 04-02-2025 MCV (RBC) [Entitic vol] 104.7 fL High 81-99 [facility] Mean corpuscular hemoglobin (MCH) determinationOrdered By: Alex Love on 04-02-2025 MCH (RBC) [Entitic mass] 35.9 pg High 27.0-32.0 [facility] Mean corpuscular hemoglobin concentration (MCHC) determinationOrdered By: Alex Love on 04-02-2025 MCHC (RBC) [Mass/Vol] 34.3 g/dL 32-36 [facility] Mean platelet volume determi nationOrdered By: Alex Love on 04-02-2025 Platelet mean volume (Bld) [Entitic vol] 8.8 fL 6.2-12.0 [facility] Monocyte percentageOrdered B y: Alex Love on 04-02-2025 Monocytes/100 WBC (Bld) 7.4 % 0-10 [facility] Neutrophil percentageOrdered By: Alex Love on 04-02-2025 Neutrophils/100 WBC (Bld) 63.9 % 47-70 [facility] No Panel InformationOrdered By: Alex Love on 04-02-2025 2+ [facility] 18 U/L <32 [facility] Nucleated red blood cell per centageOrdered By: Alex Love on 04-02-2025 Nucleated RBC/100 WBC (Bld) [Ratio] 0 % 0-5 [facility] Platelet countOrdered By: Mariana Love on 04-02-2025 Platelets (Bld) [#/Vol] 151 10*3/uL 150-450 [facility] Potassium measurement (mass/ volume)Ordered By: Alex Love on 04-02-2025 Potassium (Unsp spec) [Mass/Vol] 4.3 mmol/L 3.3-5.1 [facility] RBC Auto (Bld) [#/Vol]Ordere d By: Alex Love on 04-02-2025 RBC (Bld) [#/Vol] 2.98 10*6/uL Low 4.2-5.4 [facility] Serum creatinine measurement (mass/volume)Ordered By: Alex Love on 04-02-2025 Creatinine [Mass/Vol] 0.92 mg/dL 0.70-1.20 [facility] Serum globulin measurementOr dered By: Alex Love on 04-02-2025 Globulin (S) [Mass/Vol] 2.1 g/dL Low 2.2-4.2 [facility] Serum glucose measurement (m ass/volume)Ordered By: Alex Love on 04-02-2025 Glucose [Mass/Vol] 101 mg/dL High 70-99 [facility] Serum or plasma alanine eastman otransferase (ALT) measurementOrdered By: Alex Love on 04-02-2025 ALT [Catalytic activity/Vol] 13 U/L <35 [facility] Serum or plasma albumin brandan urement (mass/volume)Ordered By: Alex Love on 04-02-2025 Albumin [Mass/Vol] 3.8 g/dL 3.4-4.8 [facility] Serum or plasma albumin/glob ulin mass ratioOrdered By: Alex Love on 04-02-2025 Albumin/Globulin [Mass ratio] 1.8 {ratio} 0.9-2.4 [facility] Serum or plasma alkaline katalina sphatase measurementOrdered By: Alex Love on 04-02-2025 ALP [Catalytic activity/Vol] 32 U/L Low 35-104 [facility] Serum or plasma calcium brandan urement (mass/volume)Ordered By: Alex Love on 04-02-2025 Calcium [Mass/Vol] 8.8 mg/dL 7.6-11.0 [facility] Serum or plasma urea nitroge n measurement (mass/volume)Ordered By: Alex Love on 04-02-2025 Urea nitrogen [Mass/Vol] 19 mg/dL 4-19 [facility] Sodium levelOrdered By: Jim Love on 04-02-2025 Sodium [Moles/Vol] 138 mmol/L 133-145 [facility] Total proteinOrdered By: Torito Love on 04-02-2025 Protein [Mass/Vol] 5.9 g/dL 5.9-8.4 [facility] White blood cell (WBC) count Ordered By: Alex Love on 04-02-2025 WBC (Bld) [#/Vol] 4.6 10*3/uL 4.4-11.0 [facility] Oncology Visit Reporton 02-13 Oncology Visit Report Normal [facility] CA 15-3on 03-07-2025 CA 15-3 25.1 U/mL Abnormal 0.0-25.0 [facility] Comment on above: Result Comment: [employer] Electrochemiluminescence Immunoassay(ECLIA)Values obtained with different assay methods or kits cannotbe used interchangeably. Results cannot be interpreted asabsolute evidence of the presence or absence of malignantdisease.Performed at: [facility] [address] [id number] Director: Trev Joy PhD, Phone: [phone] Performed By: #### L 100.0100, L3100.5030, L500.4050, L3100.5040, L504.3960 ####[facility] [address] [place], [address] CA 27.29on 03-07-2025 CA 27.29 27.4 U/mL Normal 0.0-38.6 [facility] Comment on above: Result Comment: [employer] Immunochemiluminometric Methodology (ICMA)Values obtained with different assay methods or kits cannotbe used interchangeably. Results cannot be interpreted asabsolute evidence of the presence or absence of malignantdisease. Performed By: #### L 100.0100, L3100.5030, L500.4050, L3100.5040, L504.2610 ####[facility] [address] [place], [address] Absolute lymphocyte countOrd ered By: Alex Love on 03-05-2025 Lymphocytes Auto (Unsp spec) [#/Vol] 1.60 10*3/uL 0.83-4.51 [facility] Absolute neutrophil countOrd ered By: Alex Love on 03-05-2025 Neutrophils (Bld) [#/Vol] 3.8 10*3/uL 2.0-7.7 [facility] Anion gap in Serum or Plasma Ordered By: Alex Love on 03-05-2025 Anion gap [Moles/Vol] 10 mmol/L 5-15 [facility] Automated lymphocyte count a s percentage of total leukocytesOrdered By: Alex Love on 03-05-2025 Lymphocytes/100 WBC Auto (Unsp spec) 26.9 % 19-41 [facility] BUN/creatinine ratioOrdered By: Alex Love on 03-05-2025 Urea nitrogen/Creatinine [Mass ratio] 19.9 mg/mg 10-20 [facility] Basophil percentageOrdered B y: Alex Love on 03-05-2025 Basophils/100 WBC (Bld) 0.7 % 0-1 [facility] Bilirubin, totalOrdered By: Alex Love on 03-05-2025 Bilirubin [Mass/Vol] 0.58 mg/dL 0.00-1.30 [facility] CA 15-3Ordered By: Alex yoon on 03-05-2025 CA 15-3 25.1 U/mL High 0.0-25.0 [facility] Comment on above: [employer] El ectrochemiluminescence Immunoassay(ECLIA)Values obtained with different assay methods or kits cannotbe used interchangeably. Results cannot be interpreted asabsolute evidence of the presence or absence of malignantdisease.Performed at: [address] [place], [place] [id number] Director: Trev Joy PhD, Phone: [phone] CA 27.29Ordered By: Alex germain on 03-05-2025 CA 27.29 27.4 U/mL 0.0-38.6 [facility] Comment on above: [employer] Immu nochemiluminometric Methodology (ICMA)Values obtained with different assay methods or kits cannotbe used interchangeably. Results cannot be interpreted asabsolute evidence of the presence or absence of malignantdisease. CBC W/Diff, Automatedon 02-13 Absolute Lymph 1.60 X10 3/uL Normal 0.83-4.51 [facility] Comment on above: Performed By: #### L 100.0100, L3100.5030, L500.4050, L3100.5040, L504.2610 ####[facility] [address] [place], [address] Absolute Neut 3.8 X10 3/uL Normal 2.0-7.7 [facility] Comment on above: Performed By: #### L 100.0100, L3100.5030, L500.4050, L3100.5040, L504.2610 ####[facility] [address] [place], [address] Basophils/100 WBC (Bld) 0.7 % Normal 0-1 [facility] Comment on above: Performed By: #### L 100.0100, L3100.5030, L500.4050, L3100.5040, L504.2610 ####[facility] [address] [place], [address] Eosinophils/100 WBC (Bld) 1.0 % Normal 0-5 [facility] Comment on above: Performed By: #### L 100.0100, L3100.5030, L500.4050, L3100.5040, L504.2610 ####[facility] [address] [place], [address] Erythrocyte distribution width (RBC) [Ratio] 15.2 % High 11.6-14.6 [facility] Comment on above: Performed By: #### L 100.0100, L3100.5030, L500.4050, L3100.5040, L504.2610 ####[facility] [address] [place], [address] Hematocrit (Bld) [Volume fraction] 33.9 % Low 37-47 [facility] Comment on above: Performed By: #### L 100.0100, L3100.5030, L500.4050, L3100.5040, L504.2610 ####[facility] [address] [place], [address] Hemoglobin (Bld) [Mass/Vol] 11.3 g/dL Low 12.0-15.0 [facility] Comment on above: Performed By: #### L 100.0100, L3100.5030, L500.4050, L3100.5040, L504.2610 ####[facility] [address] [place], [address] IG% 0.500 Normal 0.0-0.9 [facility] Comment on above: Result Comment: IG% - Immature Granulocytes (promyelocytes, myelocytes andmetamyelocytes) > 1% indicates that a LEFT SHIFT is Present. Performed By: #### L 100.0100, L3100.5030, L500.4050, L3100.5040, L504.2610 ####[facility] [address] [place], [address] Lymphocytes/100 WBC (Bld) 26.9 % Normal 19-41 [facility] Comment on above: Performed By: #### L 100.0100, L3100.5030, L500.4050, L3100.5040, L504.2610 ####[facility] [address] [place], [address] MCH (RBC) [Entitic mass] 34.0 pg High 27.0-32.0 [facility] Comment on above: Performed By: #### L 100.0100, L3100.5030, L500.4050, L3100.5040, L504.2610 ####[facility] [address] [place], [address] MCHC (RBC) [Mass/Vol] 33.3 g/dL Normal 32-36 [facility] Comment on above: Performed By: #### L 100.0100, L3100.5030, L500.4050, L3100.5040, L504.2610 ####[facility] [address] [place], [address] MCV (RBC) [Entitic vol] 102.1 fL High 81-99 [facility] Comment on above: Performed By: #### L 100.0100, L3100.5030, L500.4050, L3100.5040, L504.2610 ####[facility] [address] [place], [address] Monocytes/100 WBC (Bld) 7.6 % Normal 0-10 [facility] Comment on above: Performed By: #### L 100.0100, L3100.5030, L500.4050, L3100.5040, L504.2610 ####[facility] [address] [place], [address] Neutrophils/100 WBC (Bld) 63.3 % Normal 47-70 [facility] Comment on above: Performed By: #### L 100.0100, L3100.5030, L500.4050, L3100.5040, L504.2610 ####[facility] [address] [place], [address] Nucleated RBC (Bld) [#/Vol] 0 10*3/uL Normal 0-5 [facility] Comment on above: Performed By: #### L 100.0100, L3100.5030, L500.4050, L3100.5040, L504.2610 ####[facility] [address] [place], [address] Platelet mean volume (Bld) [Entitic vol] 8.8 fL Normal 6.2-12.0 [facility] Comment on above: Performed By: #### L 100.0100, L3100.5030, L500.4050, L3100.5040, L504.2610 ####[facility] [address] [place], [address] Platelets (Bld) [#/Vol] 160 10*3/uL Normal 150-450 [facility] Comment on above: Performed By: #### L 100.0100, L3100.5030, L500.4050, L3100.5040, L504.2610 ####[facility] [address] [place], [address] RBC (Bld) [#/Vol] 3.32 10*6/uL Low 4.2-5.4 [facility] Comment on above: Performed By: #### L 100.0100, L3100.5030, L500.4050, L3100.5040, L504.2610 ####[facility] [address] [place], [address] RDW SD 55.8 fl High 35.1-43.9 [facility] Comment on above: Performed By: #### L 100.0100, L3100.5030, L500.4050, L3100.5040, L504.2610 ####[facility] [address] [place], [address] WBC (Bld) [#/Vol] 6.0 10*3/uL Normal 4.4-11.0 [facility] Comment on above: Performed By: #### L 100.0100, L3100.5030, L500.4050, L3100.5040, L504.2610 ####[facility] [address] [place], [address] Carbon dioxide, total [Moles /volume] in Central venous bloodOrdered By: Alex Love on 03-05-2025 CO2 [Moles/Vol] 22.5 mmol/L 21.0-32.0 [facility] Chloride assayOrdered By: Mariana Love on 03-05-2025 Chloride [Moles/Vol] 105 mmol/L 98-108 [facility] Comprehensive Metabolic Prof ilon 03-05-2025 Albumin [Mass/Vol] 3.8 g/dL Normal 3.4-4.8 [facility] Comment on above: Performed By: #### L 100.0100, L3100.5030, L500.4050, L3100.5040, L504.2610 ####[facility] [address] [place], [address] Albumin/Globulin [Mass ratio] 1.7 {ratio} Normal 0.9-2.4 [facility] Comment on above: Performed By: #### L 100.0100, L3100.5030, L500.4050, L3100.5040, L504.2610 ####[facility] [facility] [address] [place], [address] ALK PHOS 29 U/L Low 35-104 [facility] Comment on above: Performed By: #### L 100.0100, L3100.5030, L500.4050, L3100.5040, L504.2610 ####[facility] [address] [place], [address] ALT [Catalytic activity/Vol] 14 U/L Normal <=34 [facility] Comment on above: Performed By: #### L 100.0100, L3100.5030, L500.4050, L3100.5040, L504.2610 ####[facility] [address] [place], [address] AST [Catalytic activity/Vol] 19 U/L Normal <=31 [facility] Comment on above: Performed By: #### L 100.0100, L3100.5030, L500.4050, L3100.5040, L504.2610 ####[facility] [address] [place], [address] Bilirubin [Mass/Vol] 0.58 mg/dL Normal 0.00-1.30 [facility] Comment on above: Performed By: #### L 100.0100, L3100.5030, L500.4050, L3100.5040, L504.2610 ####[facility] [address] [place], [address] BUN/CRE 19.9 RATIO Normal 10-20 [facility] Comment on above: Performed By: #### L 100.0100, L3100.5030, L500.4050, L3100.5040, L504.2610 ####[facility] [address] [place], [address] Calcium [Mass/Vol] 8.7 mg/dL Normal 7.6-11.0 [facility] Comment on above: Performed By: #### L 100.0100, L3100.5030, L500.4050, L3100.5040, L504.2610 ####[facility] [address] [place], [address] Chloride [Moles/Vol] 105 mmol/L Normal 98-108 [facility] Comment on above: Performed By: #### L 100.0100, L3100.5030, L500.4050, L3100.5040, L504.2610 ####[facility] [address] [place], [address] CO2 [Moles/Vol] 22.5 mmol/L Normal 21.0-32.0 [facility] Comment on above: Performed By: #### L 100.0100, L3100.5030, L500.4050, L3100.5040, L504.2610 ####[facility] [address] [place], [address] Creatinine [Mass/Vol] 0.98 mg/dL Normal 0.70-1.20 [facility] Comment on above: Performed By: #### L 100.0100, L3100.5030, L500.4050, L3100.5040, L504.2610 ####[facility] [address] [place], [address] ECRCL 42.62 ml/min Low 50-250 [facility] Comment on above: Performed By: #### L 100.0100, L3100.5030, L500.4050, L3100.5040, L504.2610 ####[facility] [address] [place], [address] GAP 10 Normal 5-15 [facility] Comment on above: Performed By: #### L 100.0100, L3100.5030, L500.4050, L3100.5040, L504.2610 ####[facility] [address] [place], [address] GFR/1.73 sq M.predicted among non-blacks MDRD (S/P/Bld) [Vol rate/Area] 58 mL/min/{1.73_m2} Low >60 [facility] Comment on above: Result Comment: mL/m in/1.73m2 CKD-EPI Creatinine Equation (2020) Performed By: #### L 100.0100, L3100.5030, L500.4050, L3100.5040, L504.2610 ####[facility] [address] [place], [address] Globulin (S) [Mass/Vol] 2.3 g/dL Normal 2.2-4.2 [facility] Comment on above: Performed By: #### L 100.0100, L3100.5030, L500.4050, L3100.5040, L504.2610 ####[facility] [address] [place], [address] Glucose [Mass/Vol] 95 mg/dL Normal 70-99 [facility] Comment on above: Performed By: #### L 100.0100, L3100.5030, L500.4050, L3100.5040, L504.2610 ####[facility] [address] [place], [address] Potassium [Moles/Vol] 4.2 mmol/L Normal 3.3-5.1 [facility] Comment on above: Performed By: #### L 100.0100, L3100.5030, L500.4050, L3100.5040, L504.2610 ####[facility] [address] [place], [address] Sodium [Moles/Vol] 137 mmol/L Normal 133-145 [facility] Comment on above: Performed By: #### L 100.0100, L3100.5030, L500.4050, L3100.5040, L504.2610 ####[facility] [address] [place], [address] T PROT 6.1 g/dL Normal 5.9-8.4 [facility] Comment on above: Performed By: #### L 100.0100, L3100.5030, L500.4050, L3100.5040, L504.2610 ####[facility] [address] [place], [address] Urea nitrogen [Mass/Vol] 20 mg/dL High 4-19 [facility] Comment on above: Performed By: #### L 100.0100, L3100.5030, L500.4050, L3100.5040, L504.2610 ####[facility] [address] [place], [place], [address] Eosinophil percentageOrdered By: Alex Love on 03-05-2025 Eosinophils/100 WBC (Bld) 1.0 % 0-5 [facility] Erythrocyte distribution wid th ratioOrdered By: [facility] on 03-05-2025 Erythrocyte distribution width (RBC) [Ratio] 15.2 % High 11.6-14.6 [facility] Erythrocyte distribution wid th standard deviationOrdered By: [facility] on 03-05-2025 Erythrocyte distribution width (RBC) [Ratio] 55.8 fl High 35.1-43.9 [facility] Glomerular filtration rate ( GFR) estimation/1.73 sq m using serum, plasma, or whole bOrdered By: [facility] 03-[facility]-2025 GFR/1.73 sq M.predicted among non-blacks MDRD (S/P/Bld) [Vol rate/Area] 58 mL/min/{1.73_m2} Low >60 [facility] Comment on above: mL/min/1.73m2 CKD-EP I Creatinine Equation (2020) Hematocrit Auto (Bld) [Volum e fraction]Ordered By: Alex Ivan on 03-05-2025 Hematocrit (Bld) [Volume fraction] 33.9 % Low 37-47 [facility] Hemoglobin measurementOrdere d By: Alex [facility] on 03-05-2025 Hemoglobin (Bld) [Mass/Vol] 11.3 g/dL Low 12.0-15.0 [facility] Immature granulocytes/100 WB C Auto (Bld)Ordered By: Alex Love on 03-05-2025 Immature granulocytes/100 WBC (Bld) 0.500 % 0.0-0.9 [facility] Comment on above: IG% - Immature Granu locytes (promyelocytes, myelocytes and metamyelocytes) > 1% indicates that a LEFT SHIFT is Present. LDHon 03-05-2025 LDH 235 U/L Normal 84-246 [facility] Comment on above: Order Comment: 1 Performed By: #### L 100.0100, L3100.5030, L500.4050, L3100.5040, L504.2610 ####[facility] [address] [place], [address] Laboratory - Chemistry and C hemistry - challengeOrdered By: Alex Love on 03-05-2025 AST [Catalytic activity/Vol] 19 U/L <32 [facility] Lactate dehydrogenase (LDH) measurementOrdered By: Alex Love on 03-05-2025 LDH [Catalytic activity/Vol] 235 U/L 84-246 [facility] MCV (mean corpuscular volume ) determinationOrdered By: Alex Love on 03-05-2025 MCV (RBC) [Entitic vol] 102.1 fL High 81-99 [facility] Mean corpuscular hemoglobin (MCH) determinationOrdered By: Alex Love on 03-05-2025 MCH (RBC) [Entitic mass] 34.0 pg High 27.0-32.0 [facility] Mean corpuscular hemoglobin concentration (MCHC) determinationOrdered By: Alex Love on 03-05-2025 MCHC (RBC) [Mass/Vol] 33.3 g/dL 32-36 [facility] Mean platelet volume determi nationOrdered By: Alex Love on 03-05-2025 Platelet mean volume (Bld) [Entitic vol] 8.8 fL 6.2-12.0 [facility] Monocyte percentageOrdered B y: Alex Love on 03-05-2025 Monocytes/100 WBC (Bld) 7.6 % 0-10 [facility] Neutrophil percentageOrdered By: Alex Love on 03-05-2025 Neutrophils/100 WBC (Bld) 63.3 % 47-70 [facility] Nucleated red blood cell per centageOrdered By: Alex Love on 03-05-2025 Nucleated RBC/100 WBC (Bld) [Ratio] 0 % 0-5 [facility] Platelet countOrdered By: Mariana Love on 03-05-2025 Platelets (Bld) [#/Vol] 160 10*3/uL 150-450 [facility] Potassium measurement (mass/ volume)Ordered By: Alex Love on 03-05-2025 Potassium (Unsp spec) [Mass/Vol] 4.2 mmol/L 3.3-5.1 [facility] RBC Auto (Bld) [#/Vol]Ordere d By: Alex Love on 03-05-2025 RBC (Bld) [#/Vol] 3.32 10*6/uL Low 4.2-5.4 [facility] Serum creatinine measurement (mass/volume)Ordered By: Alex Love on 03-05-2025 Creatinine [Mass/Vol] 0.98 mg/dL 0.70-1.20 [facility] Serum globulin measurementOr dered By: Alex Love on 03-05-2025 Globulin (S) [Mass/Vol] 2.3 g/dL 2.2-4.2 [facility] Serum glucose measurement (m ass/volume)Ordered By: Alex Love on 03-05-2025 Glucose [Mass/Vol] 95 mg/dL 70-99 [facility] Serum or plasma alanine eastman otransferase (ALT) measurementOrdered By: Alex Love on 03-05-2025 ALT [Catalytic activity/Vol] 14 U/L <35 [facility] Serum or plasma albumin brandan urement (mass/volume)Ordered By: Alex Love on 03-05-2025 Albumin [Mass/Vol] 3.8 g/dL 3.4-4.8 [facility] Serum or plasma albumin/glob ulin mass ratioOrdered By: Alex Love on 03-05-2025 Albumin/Globulin [Mass ratio] 1.7 {ratio} 0.9-2.4 [facility] Serum or plasma alkaline katalina sphatase measurementOrdered By: Alex Love on 03-05-2025 ALP [Catalytic activity/Vol] 29 U/L Low 35-104 [facility] Serum or plasma calcium brandan urement (mass/volume)Ordered By: Aelx Love on 03-05-2025 Calcium [Mass/Vol] 8.7 mg/dL 7.6-11.0 [facility] Serum or plasma urea nitroge n measurement (mass/volume)Ordered By: Alex Love on 03-05-2025 Urea nitrogen [Mass/Vol] 20 mg/dL High 4-19 [facility] Sodium levelOrdered By: Jim Love on 03-05-2025 Sodium [Moles/Vol] 137 mmol/L 133-145 [facility] Total proteinOrdered By: Torito preethi Love on 03-05-2025 Protein [Mass/Vol] 6.1 g/dL 5.9-8.4 [facility] White blood cell (WBC) count Ordered By: Alex Ivan on 03-05-2025 WBC (Bld) [#/Vol] 6.0 10*3/uL 4.4-11.0 [facility] CBC W/Diff, Automatedon 04-2 Absolute Lymph 1.62 X10 3/uL Normal 0.83-4.51 [facility] Comment on above: Performed By: #### L 100.0100, L504.2610, L500.4050 ####[facility] [address] [place], [address] Absolute Neut 4.4 X10 3/uL Normal 2.0-7.7 [facility] Comment on above: Performed By: #### L 100.0100, L504.2610, L500.4050 ####[facility] [address] [place], [address] Basophils/100 WBC (Bld) 0.6 % Normal 0-1 [facility] Comment on above: Performed By: #### L 100.0100, L504.2610, L500.4050 ####[facility] [address] [place], [address] Eosinophils/100 WBC (Bld) 0.9 % Normal 0-5 [facility] Comment on above: Performed By: #### L 100.0100, L504.2610, L500.4050 ####[facility] [address] [place], [address] Erythrocyte distribution width (RBC) [Ratio] 13.5 % Normal 11.6-14.6 [facility] Comment on above: Performed By: #### L 100.0100, L504.2610, L500.4050 ####[facility] [address] [place], [address] Hematocrit (Bld) [Volume fraction] 34.1 % Low 37-47 [facility] Comment on above: Performed By: #### L 100.0100, L504.2610, L500.4050 ####[facility] [address] [place], [address] Hemoglobin (Bld) [Mass/Vol] 11.4 g/dL Low 12.0-15.0 [facility] Comment on above: Performed By: #### L 100.0100, L504.2610, L500.4050 ####[facility] [address] [place], [address] IG% 0.300 Normal 0.0-0.9 [facility] Comment on above: Result Comment: IG% - Immature Granulocytes (promyelocytes, myelocytes andmetamyelocytes) > 1% indicates that a LEFT SHIFT is Present. Performed By: #### L 100.0100, L504.2610, L500.4050 ####[facility] [address] [place], [address] Lymphocytes/100 WBC (Bld) 25.2 % Normal 19-41 [facility] Comment on above: Performed By: #### L 100.0100, L504.2610, L500.4050 ####[facility] [address] [place], [address] MCH (RBC) [Entitic mass] 33.5 pg High 27.0-32.0 [facility] Comment on above: Performed By: #### L 100.0100, L504.2610, L500.4050 ####[facility] [address] [place], [address] MCHC (RBC) [Mass/Vol] 33.4 g/dL Normal 32-36 [facility] Comment on above: Performed By: #### L 100.0100, L504.2610, L500.4050 ####[facility] [address] [place], [address] MCV (RBC) [Entitic vol] 100.3 fL High 81-99 [facility] Comment on above: Performed By: #### L 100.0100, L504.2610, L500.4050 ####[facility] [address] [place], [address] Monocytes/100 WBC (Bld) 4.7 % Normal 0-10 [facility] Comment on above: Performed By: #### L 100.0100, L504.2610, L500.4050 ####[facility] [address] [place], [address] Neutrophils/100 WBC (Bld) 68.3 % Normal 47-70 [facility] Comment on above: Performed By: #### L 100.0100, L504.2610, L500.4050 ####[facility] [address] [place], [address] Nucleated RBC (Bld) [#/Vol] 0 10*3/uL Normal 0-5 [facility] Comment on above: Performed By: #### L 100.0100, L504.2610, L500.4050 ####[facility] [address] [place], [address] Platelet mean volume (Bld) [Entitic vol] 8.3 fL Normal 6.2-12.0 [facility] Comment on above: Performed By: #### L 100.0100, L504.2610, L500.4050 ####[facility] [address] [place], [address] Platelets (Bld) [#/Vol] 154 10*3/uL Normal 150-450 [facility] Comment on above: Performed By: #### L 100.0100, L504.2610, L500.4050 ####[facility] [address] [place], [address] RBC (Bld) [#/Vol] 3.40 10*6/uL Low 4.2-5.4 [facility] Comment on above: Performed By: #### L 100.0100, L504.2610, L500.4050 ####[facility] [address] [place], [address] RDW SD 47.7 fl High 35.1-43.9 [facility] Comment on above: Performed By: #### L 100.0100, L504.2610, L500.4050 ####[facility] [address] [place], [address] WBC (Bld) [#/Vol] 6.4 10*3/uL Normal 4.4-11.0 [facility] Comment on above: Performed By: #### L 100.0100, L504.2610, L500.4050 ####[facility] [address] [place], [address] Comprehensive Metabolic Prof [facility] 02-09-2025 Albumin [Mass/Vol] 3.8 g/dL Normal 3.4-4.8 [facility] Comment on above: Performed By: #### L 100.0100, L504.2610, L500.4050 ####[facility] [address] [place], [address] Albumin/Globulin [Mass ratio] 1.7 {ratio} Normal 0.9-2.4 [facility] Comment on above: Performed By: #### L 100.0100, L504.2610, L500.4050 ####[facility] [address] [place], [address] ALK PHOS 29 U/L Low 35-104 [facility] Comment on above: Performed By: #### L 100.0100, L504.2610, L500.4050 ####[facility] [address] [place], [address] ALT [Catalytic activity/Vol] 10 U/L Normal <=34 [facility] Comment on above: Performed By: #### L 100.0100, L504.2610, L500.4050 ####[facility] [address] [place], [address] AST [Catalytic activity/Vol] 17 U/L Normal <=31 [facility] Comment on above: Performed By: #### L 100.0100, L504.2610, L500.4050 ####[facility] [address] [place], [address] Bilirubin [Mass/Vol] 0.46 mg/dL Normal 0.00-1.30 [facility] Comment on above: Performed By: #### L 100.0100, L504.2610, L500.4050 ####[facility] [address] [place], [address] BUN/CRE 21.5 RATIO High 10-20 [facility] Comment on above: Performed By: #### L 100.0100, L504.2610, L500.4050 ####[facility] [address] [place], [address] Calcium [Mass/Vol] 8.9 mg/dL Normal 7.6-11.0 [facility] Comment on above: Performed By: #### L 100.0100, L504.2610, L500.4050 ####[facility] [address] [place], [address] Chloride [Moles/Vol] 105 mmol/L Normal 98-108 [facility] Comment on above: Performed By: #### L 100.0100, L504.2610, L500.4050 ####[facility] [address] [place], [address] CO2 [Moles/Vol] 22.4 mmol/L Normal 21.0-32.0 [facility] Comment on above: Performed By: #### L 100.0100, L504.2610, L500.4050 ####[facility] [address] [place], [address] Creatinine [Mass/Vol] 0.85 mg/dL Normal 0.70-1.20 [facility] Comment on above: Performed By: #### L 100.0100, L504.2610, L500.4050 ####[facility] [address] [place], [address] ECRCL 49.28 ml/min Low 50-250 [facility] Comment on above: Performed By: #### L 100.0100, L504.2610, L500.4050 ####[facility] [address] [place], [address] GAP 9 Normal 5-15 [facility] Comment on above: Performed By: #### L 100.0100, L504.2610, L500.4050 ####[facility] [address] [place], [address] GFR/1.73 sq M.predicted among non-blacks MDRD (S/P/Bld) [Vol rate/Area] 69 mL/min/{1.73_m2} Normal >60 [facility] Comment on above: Result Comment: mL/m in/1.73m2 CKD-EPI Creatinine Equation (2020) Performed By: #### L 100.0100, L504.2610, L500.4050 ####[facility] [address] [place], [address] Globulin (S) [Mass/Vol] 2.2 g/dL Normal 2.2-4.2 [facility] Comment on above: Performed By: #### L 100.0100, L504.2610, L500.4050 ####[facility] [address], [address] Glucose [Mass/Vol] 122 mg/dL High 70-99 [facility] Comment on above: Performed By: #### L 100.0100, L504.2610, L500.4050 ####[facility] [address] [place], [address] Potassium [Moles/Vol] 4.2 mmol/L Normal 3.3-5.1 [facility] Comment on above: Performed By: #### L 100.0100, L504.2610, L500.4050 ####[facility] [address] [place], [address] Sodium [Moles/Vol] 137 mmol/L Normal 133-145 [facility] Comment on above: Performed By: #### L 100.0100, L504.2610, L500.4050 ####[facility] [address] [place], [address] T PROT 6.0 g/dL Normal 5.9-8.4 [facility] Comment on above: Performed By: #### L 100.0100, L504.2610, L500.4050 ####[facility] [address] [place], [address] Urea nitrogen [Mass/Vol] 18 mg/dL Normal 4-19 [facility] Comment on above: Performed By: #### L 100.0100, L504.2610, L500.4050 ####[facility] [address] [place], [address] LDHon 02-09-2025 LDH 238 U/L Normal 84-246 [facility] Comment on above: Order Comment: 1 Performed By: #### L 100.0100, L504.2610, L500.4050 ####[facility] [address] [place], [place], [address] Oncology Visit Reporton 01-14 Oncology Visit Report Normal [facility] Oncology Visit Reporton 12-13 Oncology Visit Report Normal [facility] Oncology Visit Reporton 12-13 Oncology Visit Report Normal [facility] CA 15-3on 12-18-2024 CA 15-3 34.6 U/mL Abnormal 0.0-25.0 [facility] Comment on above: Order Comment: REDRA W FROM 12/10/2024 THAT DID NOT GET SENT TO [facility] [facility] Result Comment: [employer] Electrochemiluminescence Immunoassay(ECLIA)Values obtained with different assay methods or kits cannotbe used interchangeably. Results cannot be interpreted asabsolute evidence of the presence or absence of malignantdisease.Performed at: [facility] [id number] Director: Trev Joy PhD, Phone: [phone] Performed By: #### L 3100.5000, L3100.2300, L3100.5040, L3100.5030 ####[facility] [address] [place], [place], [address] CA 27.29on 12-18-2024 CA 27.29 38.5 U/mL Normal 0.0-38.6 [facility] Comment on above: Order Comment: REDRA W FROM 12/10/2024 THAT DID NOT GET SENT TO [facility] Result Comment: [employer] Immunochemiluminometric Methodology (ICMA)Values obtained with different assay methods or kits cannotbe used interchangeably. Results cannot be interpreted asabsolute evidence of the presence or absence of malignantdisease. Performed By: #### L 3100.5000, L3100.2300, L3100.5040, L3100.5030 ####[facility] [address] [place], [place], [address] Cancer Antigen 125on 025 CA 125 33.0 U/mL Normal 0.0-38.1 [facility] Comment on above: Order Comment: REDRA W FROM 12/10/2024 THAT DID NOT GET SENT TO [facility] Result Comment: [employer] Electrochemiluminescence Immunoassay(ECLIA)Values obtained with different assay methods or kits cannotbe used interchangeably. Results cannot be interpreted asabsolute evidence of the presence or absence of malignantdisease. Performed By: #### L 3100.5000, L3100.2300, L3100.5040, L3100.5030 ####[facility] [address] [place], [place], [address] Carcinoembryonic Antigenon 0 12-18-2024 CEA 2.7 ng/mL Normal 0.0-4.7 [facility] Comment on above: Order Comment: REDRA W FROM 12/10/2024 THAT DID NOT GET SENT TO [facility] Result Comment: Nons mokers <3.9 Smokers <5.6[employer] Electrochemiluminescence Immunoassay(ECLIA)Values obtained with different assay methods or kitscannot be used interchangeably. Results cannot beinterpreted as absolute evidence of the presence orabsence of malignant disease. Performed By: #### L 3100.5000, L3100.2300, L3100.5040, L3100.5030 ####[facility] [address] [place], [place], [address] Neurology Visit Reporton Neurology Visit Report Normal [facility] Cancer antigen 125 (CA-125) measurementOrdered By: Alex Love on 12-17-2024 Cancer antigen 125 (CA-125) measurement 33.0 U/mL 0.0-38.1 [facility] Comment on above: [employer] El ectrochemiluminescence Immunoassay(ECLIA)Values obtained with different assay methods or kits cannotbe used interchangeably. Results cannot be interpreted asabsolute evidence of the presence or absence of malignantdisease. Serum or plasma carcinoembry onic antigen measurement (mass/volume)Ordered By: Alex Love on 12-17-2024 Carcinoembryonic Ag [Mass/Vol] 2.7 ng/mL 0.0-4.7 [facility] Comment on above: Nonsmokers <3.9 Smok ers <5.6[employer] Electrochemiluminescence Immunoassay(ECLIA)Values obtained with different assay methods or kitscannot be used interchangeably. Results cannot beinterpreted as absolute evidence of the presence orabsence of malignant disease. CBC W/Diff, Automatedon 11-16 Absolute Lymph 1.57 X10 3/uL Normal 0.83-4.51 [facility] Comment on above: Performed By: #### L 900.0098, L504.2610, L100.0100, L500.4050 ####[facility] [address] [place], [address] Absolute Neut 3.7 X10 3/uL Normal 2.0-7.7 [facility] Comment on above: Performed By: #### L 900.0098, L504.2610, L100.0100, L500.4050 ####[facility] [address] [place], [address] Basophils/100 WBC (Bld) 1.0 % Normal 0-1 [facility] Comment on above: Performed By: #### L 900.0098, L504.2610, L100.0100, L500.4050 ####[facility] [address] [place], [address] Eosinophils/100 WBC (Bld) 1.7 % Normal 0-5 [facility] Comment on above: Performed By: #### L 900.0098, L504.2610, L100.0100, L500.4050 ####[facility] [address] [place], [address] Erythrocyte distribution width (RBC) [Ratio] 13.2 % Normal 11.6-14.6 [facility] Comment on above: Performed By: #### L 900.0098, L504.2610, L100.0100, L500.4050 ####[facility] [address] [place], [address] Hematocrit (Bld) [Volume fraction] 37.5 % Normal 37-47 [facility] Comment on above: Performed By: #### L 900.0098, L504.2610, L100.0100, L500.4050 ####[facility] [address] [place], [address] Hemoglobin (Bld) [Mass/Vol] 12.0 g/dL Normal 12.0-15.0 [facility] Comment on above: Performed By: #### L 900.0098, L504.2610, L100.0100, L500.4050 ####[facility] [address] [place], [address] IG% 0.200 Normal 0.0-0.9 [facility] Comment on above: Result Comment: IG% - Immature Granulocytes (promyelocytes, myelocytes andmetamyelocytes) > 1% indicates that a LEFT SHIFT is Present. Performed By: #### L 900.0098, L504.2610, L100.0100, L500.4050 ####[facility] [address] [place], [address] Lymphocytes/100 WBC (Bld) 26.6 % Normal 19-41 [facility] Comment on above: Performed By: #### L 900.0098, L504.2610, L100.0100, L500.4050 ####[facility] [address] [place], [address] MCH (RBC) [Entitic mass] 32.3 pg High 27.0-32.0 [facility] Comment on above: Performed By: #### L 900.0098, L504.2610, L100.0100, L500.4050 ####[facility] [address] [place], [address] MCHC (RBC) [Mass/Vol] 32.0 g/dL Normal 32-36 [facility] Comment on above: Performed By: #### L 900.0098, L504.2610, L100.0100, L500.4050 ####[facility] [address] [place], [address] MCV (RBC) [Entitic vol] 101.1 fL High 81-99 [facility] Comment on above: Performed By: #### L 900.0098, L504.2610, L100.0100, L500.4050 ####[facility] [address] [place], [address] Monocytes/100 WBC (Bld) 8.3 % Normal 0-10 [facility] Comment on above: Performed By: #### L 900.0098, L504.2610, L100.0100, L500.4050 ####[facility] [address] [place], [address] Neutrophils/100 WBC (Bld) 62.2 % Normal 47-70 [facility] Comment on above: Performed By: #### L 900.0098, L504.2610, L100.0100, L500.4050 ####[facility] [address] [place], [address] Nucleated RBC (Bld) [#/Vol] 0 10*3/uL Normal 0-5 [facility] Comment on above: Performed By: #### L 900.0098, L504.2610, L100.0100, L500.4050 ####[facility] [address] [place], [address] Platelet mean volume (Bld) [Entitic vol] 8.5 fL Normal 6.2-12.0 [facility] Comment on above: Performed By: #### L 900.0098, L504.2610, L100.0100, L500.4050 ####[facility] [address] [place], [address] Platelets (Bld) [#/Vol] 161 10*3/uL Normal 150-450 [facility] Comment on above: Performed By: #### L 900.0098, L504.2610, L100.0100, L500.4050 ####[facility] [address] [place], [address] RBC (Bld) [#/Vol] 3.71 10*6/uL Low 4.2-5.4 [facility] Comment on above: Performed By: #### L 900.0098, L504.2610, L100.0100, L500.4050 ####[facility] [address] [place], [address] RDW SD 48.4 fl High 35.1-43.9 [facility] Comment on above: Performed By: #### L 900.0098, L504.2610, L100.0100, L500.4050 ####[facility] [address] [place], [address] WBC (Bld) [#/Vol] 5.9 10*3/uL Normal 4.4-11.0 [facility] Comment on above: Performed By: #### L 900.0098, L504.2610, L100.0100, L500.4050 ####[facility] [address] [place], [address] Chloride measurementOrdered By: Alex Love on 12-10-2024 Chloride [Moles/Vol] 105 mmol/L 96-108 [facility] Comprehensive Metabolic Prof ilon 12-10-2024 Albumin [Mass/Vol] 3.9 g/dL Normal 3.4-4.8 [facility] Comment on above: Performed By: #### L 900.0098, L504.2610, L100.0100, L500.4050 ####[facility] [address] [place], [address] Albumin/Globulin [Mass ratio] 1.6 {ratio} Normal 0.9-2.4 [facility] Comment on above: Performed By: #### L 900.0098, L504.2610, L100.0100, L500.4050 ####[facility] [address] [place], [address] ALK PHOS 33 U/L Low 35-104 [facility] Comment on above: Performed By: #### L 900.0098, L504.2610, L100.0100, L500.4050 ####[facility] [address] [place], [address] ALT [Catalytic activity/Vol] 9 U/L Normal <=34 [facility] Comment on above: Performed By: #### L 900.0098, L504.2610, L100.0100, L500.4050 ####[facility] [address] [place], [address] Anion gap [Moles/Vol] 9 mmol/L Normal 5-15 [facility] Comment on above: Performed By: #### L 900.0098, L504.2610, L100.0100, L500.4050 ####[facility] [address] [place], [address] AST [Catalytic activity/Vol] 18 U/L Normal <=31 [facility] Comment on above: Performed By: #### L 900.0098, L504.2610, L100.0100, L500.4050 ####[facility] [address] [place], [address] Bilirubin [Mass/Vol] 0.36 mg/dL Normal 0.00-1.30 [facility] Comment on above: Performed By: #### L 900.0098, L504.2610, L100.0100, L500.4050 ####[facility] [address] [place], [address] BUN/CRE 20.9 RATIO High 10-20 [facility] Comment on above: Performed By: #### L 900.0098, L504.2610, L100.0100, L500.4050 ####[facility] [address] [place], [address] Calcium [Mass/Vol] 8.7 mg/dL Normal 7.6-11.0 [facility] Comment on above: Performed By: #### L 900.0098, L504.2610, L100.0100, L500.4050 ####[facility] [address] [place], [address] Chloride [Moles/Vol] 105 mmol/L Normal 96-108 [facility] Comment on above: Performed By: #### L 900.0098, L504.2610, L100.0100, L500.4050 ####[facility] [address] [place], [address] CO2 [Moles/Vol] 23.8 mmol/L Normal 22.0-29.0 [facility] Comment on above: Performed By: #### L 900.0098, L504.2610, L100.0100, L500.4050 ####[facility] [address] [place], [address] Creatinine [Mass/Vol] 0.8 mg/dL Normal 0.6-1.0 [facility] Comment on above: Performed By: #### L 900.0098, L504.2610, L100.0100, L500.4050 ####[facility] [address] [place], [address] ECRCL 52.08 ml/min Normal [facility] Comment on above: Performed By: #### L 900.0098, L504.2610, L100.0100, L500.4050 ####[facility] [address] [place], [address] GFR/1.73 sq M.predicted among non-blacks MDRD (S/P/Bld) [Vol rate/Area] 74 mL/min/{1.73_m2} Normal >60 [facility] Comment on above: Result Comment: mL/m in/1.73m2 CKD-EPI Creatinine Equation (2020) Performed By: #### L 900.0098, L504.2610, L100.0100, L500.4050 ####[facility] [address] [place], [address] Globulin (S) [Mass/Vol] 2.4 g/dL Normal 2.2-4.2 [facility] Comment on above: Performed By: #### L 900.0098, L504.2610, L100.0100, L500.4050 ####[facility] [address] [place], [address] Glucose [Mass/Vol] 93 mg/dL Normal 70-99 [facility] Comment on above: Performed By: #### L 900.0098, L504.2610, L100.0100, L500.4050 ####[facility] [address] [place], [address] Potassium [Moles/Vol] 4.7 mmol/L Normal 3.3-5.1 [facility] Comment on above: Performed By: #### L 900.0098, L504.2610, L100.0100, L500.4050 ####[facility] [address] [place], [address] Sodium [Moles/Vol] 138 mmol/L Normal 133-145 [facility] Comment on above: Performed By: #### L 900.0098, L504.2610, L100.0100, L500.4050 ####[facility] [address] [place], [address] T PROT 6.3 g/dL Normal 5.9-8.4 [facility] Comment on above: Performed By: #### L 900.0098, L504.2610, L100.0100, L500.4050 ####[facility] [address] [place], [address] Urea nitrogen [Mass/Vol] 17 mg/dL Normal 4-19 [facility] Comment on above: Performed By: #### L 900.0098, L504.2610, L100.0100, L500.4050 ####[facility] [address] [place], [address] LDHon 12-10-2024 LDH 235 U/L Normal 84-246 [facility] Comment on above: Order Comment: 1 Performed By: #### L 900.0098, L504.2610, L100.0100, L500.4050 ####[facility] [address] [place], [address] NATERAon 12-10-2024 NATURA SEE SCANNED REPORT Normal [facility] Comment on above: Performed By: #### L 900.0098, L504.2610, L100.0100, L500.4050 ####[facility] [address] [place], [address] Oncology Visit Reporton 11-15 Oncology Visit Report Normal [facility] CA 15-3on 11-27-2024 CA 15-3 33.5 U/mL Abnormal 0.0-25.0 [facility] Comment on above: Result Comment: [employer] Electrochemiluminescence Immunoassay(ECLIA)Values obtained with different assay methods or kits cannotbe used interchangeably. Results cannot be interpreted asabsolute evidence of the presence or absence of malignantdisease.Performed at: [facility] [address] [id number] Director: Trev Joy PhD, Phone: [phone] Performed By: #### L 500.4050, L100.0100, L3100.5030 ####[facility] [address] [place], [address] CT Chest AND Abd W/ Contrast on 11-27-2024 CT Chest AND Abd W/ Contrast Normal [facility] CBC W/Diff, Automatedon 11-15 Absolute Lymph 1.89 X10 3/uL Normal 0.83-4.51 [facility] Comment on above: Performed By: #### L 500.4050, L100.0100, L3100.5030 ####[facility] [address] [place], [address] Absolute Neut 3.7 X10 3/uL Normal 2.0-7.7 [facility] Comment on above: Performed By: #### L 500.4050, L100.0100, L3100.5030 ####[facility] [address] [place], [address] Basophils/100 WBC (Bld) 1.1 % High 0-1 [facility] Comment on above: Performed By: #### L 500.4050, L100.0100, L3100.5030 ####[facility] [address] [place], [address] Eosinophils/100 WBC (Bld) 2.2 % Normal 0-5 [facility] Comment on above: Performed By: #### L 500.4050, L100.0100, L3100.5030 ####[facility] [address] [place], [address] Erythrocyte distribution width (RBC) [Ratio] 13.2 % Normal 11.6-14.6 [facility] Comment on above: Performed By: #### L 500.4050, L100.0100, L3100.5030 ####[facility] [address] [place], [address] Hematocrit (Bld) [Volume fraction] 38.3 % Normal 37-47 [facility] Comment on above: Performed By: #### L 500.4050, L100.0100, L3100.5030 ####[facility] [address] [place], [address] Hemoglobin (Bld) [Mass/Vol] 12.5 g/dL Normal 12.0-15.0 [facility] Comment on above: Performed By: #### L 500.4050, L100.0100, L3100.5030 ####[facility] [address] [place], [address] IG% 0.300 Normal 0.0-0.9 [facility] Comment on above: Result Comment: IG% - Immature Granulocytes (promyelocytes, myelocytes andmetamyelocytes) > 1% indicates that a LEFT SHIFT is Present. Performed By: #### L 500.4050, L100.0100, L3100.5030 ####[facility] [address] [place], [address] Lymphocytes/100 WBC (Bld) 29.6 % Normal 19-41 [facility] Comment on above: Performed By: #### L 500.4050, L100.0100, L3100.5030 ####[facility] [address] [place], [address] MCH (RBC) [Entitic mass] 32.6 pg High 27.0-32.0 [facility] Comment on above: Performed By: #### L 500.4050, L100.0100, L3100.5030 ####[facility] [address] [place], [address] MCHC (RBC) [Mass/Vol] 32.6 g/dL Normal 32-36 [facility] Comment on above: Performed By: #### L 500.4050, L100.0100, L3100.5030 ####[facility] [address] [place], [address] MCV (RBC) [Entitic vol] 100.0 fL High 81-99 [facility] Comment on above: Performed By: #### L 500.4050, L100.0100, L3100.5030 ####[facility] [address] [place], [address] Monocytes/100 WBC (Bld) 8.3 % Normal 0-10 [facility] Comment on above: Performed By: #### L 500.4050, L100.0100, L3100.5030 ####[facility] [address] [place], [address] Neutrophils/100 WBC (Bld) 58.5 % Normal 47-70 [facility] Comment on above: Performed By: #### L 500.4050, L100.0100, L3100.5030 ####[facility] [address] [place], [address] Nucleated RBC (Bld) [#/Vol] 0 10*3/uL Normal 0-5 [facility] Comment on above: Performed By: #### L 500.4050, L100.0100, L3100.5030 ####[facility] [address] [place], [address] Platelet mean volume (Bld) [Entitic vol] 8.5 fL Normal 6.2-12.0 [facility] Comment on above: Performed By: #### L 500.4050, L100.0100, L3100.5030 ####[facility] [address] [place], [address] Platelets (Bld) [#/Vol] 163 10*3/uL Normal 150-450 [facility] Comment on above: Performed By: #### L 500.4050, L100.0100, L3100.5030 ####[facility] [address] [place], [address] RBC (Bld) [#/Vol] 3.83 10*6/uL Low 4.2-5.4 [facility] Comment on above: Performed By: #### L 500.4050, L100.0100, L3100.5030 ####[facility] [address] [place], [address] RDW SD 48.6 fl High 35.1-43.9 [facility] Comment on above: Performed By: #### L 500.4050, L100.0100, L3100.5030 ####[facility] [address] [place], [address] WBC (Bld) [#/Vol] 6.4 10*3/uL Normal 4.4-11.0 [facility] Comment on above: Performed By: #### L 500.4050, L100.0100, L3100.5030 ####[facility] [address] [place], [address] Comprehensive Metabolic Prof [facility] 11-26-2024 Albumin [Mass/Vol] 3.6 g/dL Normal 3.2-5.0 [facility] Comment on above: Performed By: #### L 500.4050, L100.0100, L3100.5030 ####[facility] [address] [place], [address] Albumin/Globulin [Mass ratio] 1.1 {ratio} Normal 0.9-2.4 [facility] Comment on above: Performed By: #### L 500.4050, L100.0100, L3100.5030 ####[facility] [address] [place], [address] ALK P 32 U/L Low 45-117 [facility] Comment on above: Performed By: #### L 500.4050, L100.0100, L3100.5030 ####[facility] [address] [place], [address] ALT [Catalytic activity/Vol] 15 U/L Normal 13-56 [facility] Comment on above: Performed By: #### L 500.4050, L100.0100, L3100.5030 ####[facility] [address] [place], [address] AST [Catalytic activity/Vol] 15 U/L Normal 15-37 [facility] Comment on above: Performed By: #### L 500.4050, L100.0100, L3100.5030 ####[facility] [address] [place], [address] Bilirubin [Mass/Vol] 0.60 mg/dL Normal 0.20-1.00 [facility] Comment on above: Result Comment: For patients on eltrombopag therapy, use of Dimension [place] TBIL is not recommended. Performed By: #### L 500.4050, L100.0100, L3100.5030 ####[facility] [address] [place], [address] BUN/CRE 27.3 RATIO High 10-20 [facility] Comment on above: Performed By: #### L 500.4050, L100.0100, L3100.5030 ####[facility] [address] [place], [address] CA,Total 8.7 mg/dL Normal 8.5-10.1 [facility] Comment on above: Performed By: #### L 500.4050, L100.0100, L3100.5030 ####[facility] [address] [place], [address] Chloride [Moles/Vol] 107 mmol/L Normal 98-107 [facility] Comment on above: Performed By: #### L 500.4050, L100.0100, L3100.5030 ####[facility] [address] [place], [address] CO2 [Moles/Vol] 25.0 mmol/L Normal 21.0-32.0 [facility] Comment on above: Performed By: #### L 500.4050, L100.0100, L3100.5030 ####[facility] [address] [place], [address] Creatinine [Mass/Vol] 0.84 mg/dL Normal 0.55-1.02 [facility] Comment on above: Result Comment: The validity of the calculated GFR GFRAA in patients over70 years has not been determined. Clinical correlation isessential. Performed By: #### L 500.4050, L100.0100, L3100.5030 ####[facility] [address] [place], [address] ECRCL 49.48 ml/min Normal [facility] Comment on above: Performed By: #### L 500.4050, L100.0100, L3100.5030 ####[facility] [address] [place], [address] EST GFR - AA 83 mL/min Normal >60 [facility] Comment on above: Result Comment: Afri can Albanian GFR Calc Performed By: #### L 500.4050, L100.0100, L3100.5030 ####[facility] [address] [place], [address] GAP 7 Normal 5-15 [facility] Comment on above: Performed By: #### L 500.4050, L100.0100, L3100.5030 ####[facility] [address] [place], [address] GFR/1.73 sq M.predicted among non-blacks MDRD (S/P/Bld) [Vol rate/Area] 69 mL/min/{1.73_m2} Normal >60 [facility] Comment on above: Result Comment: Non- GFR Calc Performed By: #### L 500.4050, L100.0100, L3100.5030 ####[facility] [address] [place], [address] Globulin (S) [Mass/Vol] 3.2 g/dL Normal 2.2-4.2 [facility] Comment on above: Performed By: #### L 500.4050, L100.0100, L3100.5030 ####[facility] [address] [place], [address] Glucose [Mass/Vol] 100 mg/dL Normal 74-106 [facility] Comment on above: Result Comment: Fast ing Glucose result from 100 to 125 mg/dLsuggests IMPAIRED HOMEOSTASIS per A.D.A. criteria. Performed By: #### L 500.4050, L100.0100, L3100.5030 ####[facility] [address] [place], [address] Potassium [Moles/Vol] 4.2 mmol/L Normal 3.5-5.1 [facility] Comment on above: Performed By: #### L 500.4050, L100.0100, L3100.5030 ####[facility] [address] [place], [address] Sodium [Moles/Vol] 139 mmol/L Normal 136-145 [facility] Comment on above: Performed By: #### L 500.4050, L100.0100, L3100.5030 ####[facility] [address] [place], [address] T PROT 6.8 g/dL Normal 6.4-8.2 [facility] Comment on above: Performed By: #### L 500.4050, L100.0100, L3100.5030 ####[facility] [address] [place], [address] Urea nitrogen [Mass/Vol] 23 mg/dL High 7-18 [facility] Comment on above: Performed By: #### L 500.4050, L100.0100, L3100.5030 ####[facility] [address] [place], [place], [address] Oncology Visit Reporton 11-15 Oncology Visit Report Normal [facility] Oncology Visit Reporton 09-14 Oncology Visit Report Normal [facility] CA 15-3on 09-19-2024 CA 15-3 31.2 U/mL Abnormal 0.0-25.0 [facility] Comment on above: Result Comment: [employer] Electrochemiluminescence Immunoassay(ECLIA)Values obtained with different assay methods or kits cannotbe used interchangeably. Results cannot be interpreted asabsolute evidence of the presence or absence of malignantdisease.Performed at: [place] [id number] Director: Trev Joy PhD, Phone: [phone] Performed By: #### L 3100.2300, L3100.5000, L3100.5030, L3100.5040 ####[facility] [address] [place], [place], [address] CA 27.29on 09-19-2024 CA 27.29 30.5 U/mL Normal 0.0-38.6 [facility] Comment on above: Result Comment: [employer] Immunochemiluminometric Methodology (ICMA)Values obtained with different assay methods or kits cannotbe used interchangeably. Results cannot be interpreted asabsolute evidence of the presence or absence of malignantdisease. Performed By: #### L 3100.2300, L3100.5000, L3100.5030, L3100.5040 ####[facility] [address] [place], [place], [address] Cancer Antigen 125on 024 CA 125 24.2 U/mL Normal 0.0-38.1 [facility] Comment on above: Result Comment: [employer] Electrochemiluminescence Immunoassay(ECLIA)Values obtained with different assay methods or kits cannotbe used interchangeably. Results cannot be interpreted asabsolute evidence of the presence or absence of malignantdisease. Performed By: #### L 3100.2300, L3100.5000, L3100.5030, L3100.5040 ####[facility] [address] [place], [address] Carcinoembryonic Antigenon 1 11-20-2023 CEA 2.8 ng/mL Normal 0.0-4.7 [facility] Comment on above: Result Comment: Nons mokers <3.9 Smokers <5.6[employer] Electrochemiluminescence Immunoassay(ECLIA)Values obtained with different assay methods or kitscannot be used interchangeably. Results cannot beinterpreted as absolute evidence of the presence orabsence of malignant disease. Performed By: #### L 3100.2300, L3100.5000, L3100.5030, L3100.5040 ####[facility] [address] [place], [place], [id number] Cardiology Visit Reporton Cardiology Visit Report Normal [facility] Oncology Visit Reporton 08-15 Oncology Visit Report Normal [facility] CA 15-3on 08-22-2024 CA 15-3 29.8 U/mL Abnormal 0.0-25.0 [facility] Comment on above: Result Comment: [employer] [employer] Electrochemiluminescence Immunoassay(ECLIA)Values obtained with different assay methods or kits cannotbe used interchangeably. Results cannot be interpreted asabsolute evidence of the presence or absence of malignantdisease.Performed at: [address] [id number] Director: Trev Joy PhD, Phone: [phone] Performed By: #### L 504.2610, L900.0098, L500.4050, L100.0100, L3100.5030 ####[facility] [address] [place], [place], [address] CBC W/Diff, Automatedon 11-0 7-2024 Absolute Lymph 1.49 X10 3/uL Normal 0.83-4.51 [facility] Comment on above: Performed By: #### L 504.2610, L900.0098, L500.4050, L100.0100, L3100.5030 ####[facility] [address] [place], [address] Absolute Neut 3.8 X10 3/uL Normal 2.0-7.7 [facility] Comment on above: Performed By: #### L 504.2610, L900.0098, L500.4050, L100.0100, L3100.5030 ####[facility] [address] [place], [address] Basophils/100 WBC (Bld) 0.8 % Normal 0-1 [facility] Comment on above: Performed By: #### L 504.2610, L900.0098, L500.4050, L100.0100, L3100.5030 ####[facility] [address] [place], [address] Eosinophils/100 WBC (Bld) 2.0 % Normal 0-5 [facility] Comment on above: Performed By: #### L 504.2610, L900.0098, L500.4050, L100.0100, L3100.5030 ####[facility] [address] [place], [address] Erythrocyte distribution width (RBC) [Ratio] 13.4 % Normal 11.6-14.6 [facility] Comment on above: Performed By: #### L 504.2610, L900.0098, L500.4050, L100.0100, L3100.5030 ####[facility] [address] [place], [address] Hematocrit (Bld) [Volume fraction] 38.3 % Normal 37-47 [facility] Comment on above: Performed By: #### L 504.2610, L900.0098, L500.4050, L100.0100, L3100.5030 ####[facility] [address] [place], [address] Hemoglobin (Bld) [Mass/Vol] 12.3 g/dL Normal 12.0-15.0 [facility] Comment on above: Performed By: #### L 504.2610, L900.0098, L500.4050, L100.0100, L3100.5030 ####[facility] [address] [place], [address] IG% 0.300 Normal 0.0-0.9 [facility] Comment on above: Result Comment: IG% - Immature Granulocytes (promyelocytes, myelocytes andmetamyelocytes) > 1% indicates that a LEFT SHIFT is Present. Performed By: #### L 504.2610, L900.0098, L500.4050, L100.0100, L3100.5030 ####[facility] [address] [place], [address] Lymphocytes/100 WBC (Bld) 24.9 % Normal 19-41 [facility] Comment on above: Performed By: #### L 504.2610, L900.0098, L500.4050, L100.0100, L3100.5030 ####[facility] [address] [place], [address] MCH (RBC) [Entitic mass] 32.1 pg High 27.0-32.0 [facility] Comment on above: Performed By: #### L 504.2610, L900.0098, L500.4050, L100.0100, L3100.5030 ####[facility] [address] [place], [address] MCHC (RBC) [Mass/Vol] 32.1 g/dL Normal 32-36 [facility] Comment on above: Performed By: #### L 504.2610, L900.0098, L500.4050, L100.0100, L3100.5030 ####[facility] [address] [place], [address] MCV (RBC) [Entitic vol] 100.0 fL High 81-99 [facility] Comment on above: Performed By: #### L 504.2610, L900.0098, L500.4050, L100.0100, L3100.5030 ####[facility] [address] [place], [address] Monocytes/100 WBC (Bld) 7.8 % Normal 0-10 [facility] Comment on above: Performed By: #### L 504.2610, L900.0098, L500.4050, L100.0100, L3100.5030 ####[facility] [address] [place], [address] Neutrophils/100 WBC (Bld) 64.2 % Normal 47-70 [facility] Comment on above: Performed By: #### L 504.2610, L900.0098, L500.4050, L100.0100, L3100.5030 ####[facility] [address] [place], [address] Nucleated RBC (Bld) [#/Vol] 0 10*3/uL Normal 0-5 [facility] Comment on above: Performed By: #### L 504.2610, L900.0098, L500.4050, L100.0100, L3100.5030 ####[facility] [address] [place], [address] Platelet mean volume (Bld) [Entitic vol] 8.7 fL Normal 6.2-12.0 [facility] Comment on above: Performed By: #### L 504.2610, L900.0098, L500.4050, L100.0100, L3100.5030 ####[facility] [address] [place], [address] Platelets (Bld) [#/Vol] 174 10*3/uL Normal 150-450 [facility] Comment on above: Performed By: #### L 504.2610, L900.0098, L500.4050, L100.0100, L3100.5030 ####[facility] [address] [place], [address] RBC (Bld) [#/Vol] 3.83 10*6/uL Low 4.2-5.4 [facility] Comment on above: Performed By: #### L 504.2610, L900.0098, L500.4050, L100.0100, L3100.5030 ####[facility] [address] [place], [address] RDW SD 49.3 fl High 35.1-43.9 [facility] Comment on above: Performed By: #### L 504.2610, L900.0098, L500.4050, L100.0100, L3100.5030 ####[facility] [address] [place], [address] WBC (Bld) [#/Vol] 6.0 10*3/uL Normal 4.4-11.0 [facility] Comment on above: Performed By: #### L 504.2610, L900.0098, L500.4050, L100.0100, L3100.5030 ####[facility] [address] [place], [address] Comprehensive Metabolic Prof ilon 08-21-2024 Albumin [Mass/Vol] 3.4 g/dL Normal 3.2-5.0 [facility] Comment on above: Order Comment: 1 Performed By: #### L 504.2610, L900.0098, L500.4050, L100.0100, L3100.5030 ####[facility] [address] [place], [address] Albumin/Globulin [Mass ratio] 1.1 {ratio} Normal 0.9-2.4 [facility] Comment on above: Order Comment: 1 Performed By: #### L 504.2610, L900.0098, L500.4050, L100.0100, L3100.5030 ####[facility] [address] [place], [address] ALK P 35 U/L Low 45-117 [facility] Comment on above: Order Comment: 1 Performed By: #### L 504.2610, L900.0098, L500.4050, L100.0100, L3100.5030 ####[facility] [address] [place], [address] ALT [Catalytic activity/Vol] 14 U/L Normal 13-56 [facility] Comment on above: Order Comment: 1 Performed By: #### L 504.2610, L900.0098, L500.4050, L100.0100, L3100.5030 ####[facility] [address] [place], [address] AST [Catalytic activity/Vol] 15 U/L Normal 15-37 [facility] Comment on above: Order Comment: 1 Performed By: #### L 504.2610, L900.0098, L500.4050, L100.0100, L3100.5030 ####[facility] [address] [place], [address] Bilirubin [Mass/Vol] 0.50 mg/dL Normal 0.20-1.00 [facility] Comment on above: Order Comment: 1 Result Comment: For patients on eltrombopag therapy, use of Dimension [place] TBIL is not recommended. Performed By: #### L 504.2610, L900.0098, L500.4050, L100.0100, L3100.5030 ####[facility] [address] [place], [address] BUN/CRE 27.0 RATIO High 10-20 [facility] Comment on above: Order Comment: 1 Performed By: #### L 504.2610, L900.0098, L500.4050, L100.0100, L3100.5030 ####[facility] [address] [place], [address] CA,Total 8.9 mg/dL Normal 8.5-10.1 [facility] Comment on above: Order Comment: 1 Performed By: #### L 504.2610, L900.0098, L500.4050, L100.0100, L3100.5030 ####[facility] [address] [place], [address] Chloride [Moles/Vol] 109 mmol/L High 98-107 [facility] Comment on above: Order Comment: 1 Performed By: #### L 504.2610, L900.0098, L500.4050, L100.0100, L3100.5030 ####[facility] [address] [place], [address] CO2 [Moles/Vol] 26.0 mmol/L Normal 21.0-32.0 [facility] Comment on above: Order Comment: 1 Performed By: #### L 504.2610, L900.0098, L500.4050, L100.0100, L3100.5030 ####[facility] [address] [place], [address] Creatinine [Mass/Vol] 1.00 mg/dL Normal 0.55-1.02 [facility] Comment on above: Order Comment: 1 Result Comment: The validity of the calculated GFR GFRAA in patients over70 years has not been determined. Clinical correlation isessential. Performed By: #### L 504.2610, L900.0098, L500.4050, L100.0100, L3100.5030 ####[facility] [address] [place], [address] ECRCL 41.89 ml/min Normal [facility] Comment on above: Order Comment: 1 Performed By: #### L 504.2610, L900.0098, L500.4050, L100.0100, L3100.5030 ####[facility] [address] [place], [address] EST GFR - AA 68 mL/min Normal >60 [facility] Comment on above: Order Comment: 1 Result Comment: Afri can Albanian GFR Calc Performed By: #### L 504.2610, L900.0098, L500.4050, L100.0100, L3100.5030 ####[facility] [address] [place], [address] GAP 4 Low 5-15 [facility] Comment on above: Order Comment: 1 Performed By: #### L 504.2610, L900.0098, L500.4050, L100.0100, L3100.5030 ####[facility] [address] [place], [address] GFR/1.73 sq M.predicted among non-blacks MDRD (S/P/Bld) [Vol rate/Area] 57 mL/min/{1.73_m2} Low >60 [facility] Comment on above: Order Comment: 1 Result Comment: Non- GFR Calc Performed By: #### L 504.2610, L900.0098, L500.4050, L100.0100, L3100.5030 ####[facility] [address] [place], [address] Globulin (S) [Mass/Vol] 3.2 g/dL Normal 2.2-4.2 [facility] Comment on above: Order Comment: 1 Performed By: #### L 504.2610, L900.0098, L500.4050, L100.0100, L3100.5030 ####[facility] [address] [place], [address] Glucose [Mass/Vol] 84 mg/dL Normal 74-106 [facility] Comment on above: Order Comment: 1 Performed By: #### L 504.2610, L900.0098, L500.4050, L100.0100, L3100.5030 ####[facility] [address] [place], [address] Potassium [Moles/Vol] 4.1 mmol/L Normal 3.5-5.1 [facility] Comment on above: Order Comment: 1 Performed By: #### L 504.2610, L900.0098, L500.4050, L100.0100, L3100.5030 ####[facility] [address] [place], [address] Sodium [Moles/Vol] 138 mmol/L Normal 136-145 [facility] Comment on above: Order Comment: 1 Performed By: #### L 504.2610, L900.0098, L500.4050, L100.0100, L3100.5030 ####[facility] [address] [place], [address] T PROT 6.6 g/dL Normal 6.4-8.2 [facility] Comment on above: Order Comment: 1 Performed By: #### L 504.2610, L900.0098, L500.4050, L100.0100, L3100.5030 ####[facility] [address] [place], [address] Urea nitrogen [Mass/Vol] 27 mg/dL High 7-18 [facility] Comment on above: Order Comment: 1 Performed By: #### L 504.2610, L900.0098, L500.4050, L100.0100, L3100.5030 ####[facility] [address] [place], [address] LDHon 08-21-2024 LDH 190 U/L Normal 84-246 [facility] Comment on above: Order Comment: 1 Performed By: #### L 504.2610, L900.0098, L500.4050, L100.0100, L3100.5030 ####[facility] [address] [place], [address] NATERAon 08-21-2024 NATURA SEE SCANNED REPORT Normal [facility] Comment on above: Performed By: #### L 504.2610, L900.0098, L500.4050, L100.0100, L3100.5030 ####[facility] [address] [place], [address] Radiation Oncology Visiton 10-21-2023 Radiation Oncology Visit Normal [facility] Oncology Visit Reporton 06-15 Oncology Visit Report Normal [facility] CA 15-3on 06-20-2024 CA 15-3 21.7 U/mL Normal 0.0-25.0 [facility] Comment on above: Result Comment: Pro Breath MD e [employer] Electrochemiluminescence Immunoassay(ECLIA)Values obtained with different assay methods or kits cannotbe used interchangeably. Results cannot be interpreted asabsolute evidence of the presence or absence of malignantdisease.Performed at: [facility] [address] [id number] Director: Trev Joy PhD, Phone: [phone] Performed By: #### L 3100.5040, L504.2610, L500.4050, L3100.5030, L100.0100 ####[facility] [address] [place], [address] CA 27.29on 06-20-2024 CA 27.29 22.1 U/mL Normal 0.0-38.6 [facility] Comment on above: Result Comment: Siem Click Busaur Immunochemiluminometric Methodology (ICMA)Values obtained with different assay methods or kits cannotbe used interchangeably. Results cannot be interpreted asabsolute evidence of the presence or absence of malignantdisease. Performed By: #### L 3100.5040, L504.2610, L500.4050, L3100.5030, L100.0100 ####[facility] [address] [place], [address] CBC W/Diff, Automatedon 09-0 5-2023 Absolute Lymph 1.39 X10 3/uL Normal 0.83-4.51 [facility] Comment on above: Performed By: #### L 3100.5040, L504.2610, L500.4050, L3100.5030, L100.0100 ####[facility] [address] [place], [address] Absolute Neut 3.4 X10 3/uL Normal 2.0-7.7 [facility] Comment on above: Performed By: #### L 3100.5040, L504.2610, L500.4050, L3100.5030, L100.0100 ####[facility] [address] [place], [address] Basophils/100 WBC (Bld) 0.9 % Normal 0-1 [facility] Comment on above: Performed By: #### L 3100.5040, L504.2610, L500.4050, L3100.5030, L100.0100 ####[facility] [address] [place], [address] Eosinophils/100 WBC (Bld) 2.2 % Normal 0-5 [facility] Comment on above: Performed By: #### L 3100.5040, L504.2610, L500.4050, L3100.5030, L100.0100 ####[facility] [address] [place], [address] Erythrocyte distribution width (RBC) [Ratio] 13.2 % Normal 11.6-14.6 [facility] Comment on above: Performed By: #### L 3100.5040, L504.2610, L500.4050, L3100.5030, L100.0100 ####[facility] [address] [place], [address] Hematocrit (Bld) [Volume fraction] 37.1 % Normal 37-47 [facility] Comment on above: Performed By: #### L 3100.5040, L504.2610, L500.4050, L3100.5030, L100.0100 ####[facility] [address] [place], [address] Hemoglobin (Bld) [Mass/Vol] 11.6 g/dL Low 12.0-15.0 [facility] Comment on above: Performed By: #### L 3100.5040, L504.2610, L500.4050, L3100.5030, L100.0100 ####[facility] [address] [place], [address] IG% 0.500 Normal 0.0-0.9 [facility] Comment on above: Result Comment: IG% - Immature Granulocytes (promyelocytes, myelocytes andmetamyelocytes) > 1% indicates that a LEFT SHIFT is Present. Performed By: #### L 3100.5040, L504.2610, L500.4050, L3100.5030, L100.0100 ####[facility] [address] [place], [address] Lymphocytes/100 WBC (Bld) 25.0 % Normal 19-41 [facility] Comment on above: Performed By: #### L 3100.5040, L504.2610, L500.4050, L3100.5030, L100.0100 ####[facility] [address] [place], [address] MCH (RBC) [Entitic mass] 31.4 pg Normal 27.0-32.0 [facility] Comment on above: Performed By: #### L 3100.5040, L504.2610, L500.4050, L3100.5030, L100.0100 ####[facility] [address] [place], [address] MCHC (RBC) [Mass/Vol] 31.3 g/dL Low 32-36 [facility] Comment on above: Performed By: #### L 3100.5040, L504.2610, L500.4050, L3100.5030, L100.0100 ####[facility] [address] [place], [address] MCV (RBC) [Entitic vol] 100.5 fL High 81-99 [facility] Comment on above: Performed By: #### L 3100.5040, L504.2610, L500.4050, L3100.5030, L100.0100 ####[facility] [address] [place], [address] Monocytes/100 WBC (Bld) 9.4 % Normal 0-10 [facility] Comment on above: Performed By: #### L 3100.5040, L504.2610, L500.4050, L3100.5030, L100.0100 ####[facility] [address] [place], [address] Neutrophils/100 WBC (Bld) 62.0 % Normal 47-70 [facility] Comment on above: Performed By: #### L 3100.5040, L504.2610, L500.4050, L3100.5030, L100.0100 ####[facility] [address] [place], [address] Nucleated RBC (Bld) [#/Vol] 0 10*3/uL Normal 0-5 [facility] Comment on above: Performed By: #### L 3100.5040, L504.2610, L500.4050, L3100.5030, L100.0100 ####[facility] [address] [place], [address] Platelet mean volume (Bld) [Entitic vol] 8.5 fL Normal 6.2-12.0 [facility] Comment on above: Performed By: #### L 3100.5040, L504.2610, L500.4050, L3100.5030, L100.0100 ####[facility] [address] [place], [address] Platelets (Bld) [#/Vol] 170 10*3/uL Normal 150-450 [facility] Comment on above: Performed By: #### L 3100.5040, L504.2610, L500.4050, L3100.5030, L100.0100 ####[facility] [address] [place], [address] RBC (Bld) [#/Vol] 3.69 10*6/uL Low 4.2-5.4 [facility] Comment on above: Performed By: #### L 3100.5040, L504.2610, L500.4050, L3100.5030, L100.0100 ####[facility] [address] [place], [address] RDW SD 48.9 fl High 35.1-43.9 [facility] Comment on above: Performed By: #### L 3100.5040, L504.2610, L500.4050, L3100.5030, L100.0100 ####[facility] [address] [place], [address] WBC (Bld) [#/Vol] 5.6 10*3/uL Normal 4.4-11.0 [facility] Comment on above: Performed By: #### L 3100.5040, L504.2610, L500.4050, L3100.5030, L100.0100 ####[facility] [address] [place], [address] Comprehensive Metabolic Prof ilon 06-19-2024 Albumin [Mass/Vol] 3.0 g/dL Low 3.2-5.0 [facility] Comment on above: Order Comment: 1 Performed By: #### L 3100.5040, L504.2610, L500.4050, L3100.5030, L100.0100 ####[facility] [address] [place], [address] Albumin/Globulin [Mass ratio] 1.0 {ratio} Normal 0.9-2.4 [facility] Comment on above: Order Comment: 1 Performed By: #### L 3100.5040, L504.2610, L500.4050, L3100.5030, L100.0100 ####[facility] [address] [place], [address] ALK P 40 U/L Low 45-117 [facility] Comment on above: Order Comment: 1 Performed By: #### L 3100.5040, L504.2610, L500.4050, L3100.5030, L100.0100 ####[facility] [address] [place], [address] ALT [Catalytic activity/Vol] 18 U/L Normal 13-56 [facility] Comment on above: Order Comment: 1 Performed By: #### L 3100.5040, L504.2610, L500.4050, L3100.5030, L100.0100 ####[facility] [address] [place], [address] AST [Catalytic activity/Vol] 13 U/L Low 15-37 [facility] Comment on above: Order Comment: 1 Performed By: #### L 3100.5040, L504.2610, L500.4050, L3100.5030, L100.0100 ####[facility] [address] [place], [address] Bilirubin [Mass/Vol] 0.40 mg/dL Normal 0.20-1.00 [facility] Comment on above: Order Comment: 1 Result Comment: For patients on eltrombopag therapy, use of Dimension [place] TBIL is not recommended. Performed By: #### L 3100.5040, L504.2610, L500.4050, L3100.5030, L100.0100 ####[facility] [address] [place], [address] BUN/CRE 22.1 RATIO High 10-20 [facility] Comment on above: Order Comment: 1 Performed By: #### L 3100.5040, L504.2610, L500.4050, L3100.5030, L100.0100 ####[facility] [address] [place], [address] CA,Total 8.4 mg/dL Low 8.5-10.1 [facility] Comment on above: Order Comment: 1 Performed By: #### L 3100.5040, L504.2610, L500.4050, L3100.5030, L100.0100 ####[facility] [address] [place], [address] Chloride [Moles/Vol] 110 mmol/L High 98-107 [facility] Comment on above: Order Comment: 1 Performed By: #### L 3100.5040, L504.2610, L500.4050, L3100.5030, L100.0100 ####[facility] [address] [place], [address] CO2 [Moles/Vol] 27.0 mmol/L Normal 21.0-32.0 [facility] Comment on above: Order Comment: 1 Performed By: #### L 3100.5040, L504.2610, L500.4050, L3100.5030, L100.0100 ####[facility] [address] [place], [address] Creatinine [Mass/Vol] 0.86 mg/dL Normal 0.55-1.02 [facility] Comment on above: Order Comment: 1 Result Comment: The validity of the calculated GFR GFRAA in patients over70 years has not been determined. Clinical correlation isessential. Performed By: #### L 3100.5040, L504.2610, L500.4050, L3100.5030, L100.0100 ####[facility] [address] [place], [address] ECRCL 49.45 ml/min Normal [facility] Comment on above: Order Comment: 1 Performed By: #### L 3100.5040, L504.2610, L500.4050, L3100.5030, L100.0100 ####[facility] [address] [place], [address] EST GFR - AA 82 mL/min Normal >60 [facility] Comment on above: Order Comment: 1 Result Comment: Afri can Albanian GFR Calc Performed By: #### L 3100.5040, L504.2610, L500.4050, L3100.5030, L100.0100 ####[facility] [address] [place], [address] GAP 2 Low 5-15 [facility] Comment on above: Order Comment: 1 Performed By: #### L 3100.5040, L504.2610, L500.4050, L3100.5030, L100.0100 ####[facility] [address] [place], [address] GFR/1.73 sq M.predicted among non-blacks MDRD (S/P/Bld) [Vol rate/Area] 68 mL/min/{1.73_m2} Normal >60 [facility] Comment on above: Order Comment: 1 Result Comment: Non- GFR Calc Performed By: #### L 3100.5040, L504.2610, L500.4050, L3100.5030, L100.0100 ####[facility] [address] [place], [address] Globulin (S) [Mass/Vol] 3.1 g/dL Normal 2.2-4.2 [facility] Comment on above: Order Comment: 1 Performed By: #### L 3100.5040, L504.2610, L500.4050, L3100.5030, L100.0100 ####[facility] [address] [place], [address] Glucose [Mass/Vol] 85 mg/dL Normal 74-106 [facility] Comment on above: Order Comment: 1 Performed By: #### L 3100.5040, L504.2610, L500.4050, L3100.5030, L100.0100 ####[facility] [address] [place], [address] Potassium [Moles/Vol] 4.4 mmol/L Normal 3.5-5.1 [facility] Comment on above: Order Comment: 1 Performed By: #### L 3100.5040, L504.2610, L500.4050, L3100.5030, L100.0100 ####[facility] [address] [place], [address] Sodium [Moles/Vol] 139 mmol/L Normal 136-145 [facility] Comment on above: Order Comment: 1 Performed By: #### L 3100.5040, L504.2610, L500.4050, L3100.5030, L100.0100 ####[facility] [address] [place], [address] T PROT 6.1 g/dL Low 6.4-8.2 [facility] Comment on above: Order Comment: 1 Performed By: #### L 3100.5040, L504.2610, L500.4050, L3100.5030, L100.0100 ####[facility] [address] [place], [address] Urea nitrogen [Mass/Vol] 19 mg/dL High 7-18 [facility] Comment on above: Order Comment: 1 Performed By: #### L 3100.5040, L504.2610, L500.4050, L3100.5030, L100.0100 ####[facility] [address] [place], [address] LDHon 06-19-2024 LDH 205 U/L Normal 84-246 [facility] Comment on above: Order Comment: 1 Performed By: #### L 3100.5040, L504.2610, L500.4050, L3100.5030, L100.0100 ####[facility] [address] [place], [address] Blood manual differential co mment interpretation (narrative result)Ordered By: Alex Love on 11-06-2023 Manual differential comment Nba (Bld) [Interp] SCANNED [facility] Blood platelet adequacy dete ction by light microscopyOrdered By: Alex Love on 11-06-2023 Platelets LM Ql (Bld) MOD DEC ADEQ [facility] - Hematology and Cell countsOrdered By: Alex Love on 11-06-2023 Anisocytosis Ql (Bld) 2+ [facility] Macrocytes detectionOrdered By: Alex Love on 11-06-2023 Macrocytes Ql (Bld) 1+ [facility] No Panel InformationOrdered By: Alex Love on 11-06-2023 Reactive Lymphocytes 1+ [facility] 1+ [facility] Absolute lymphocyte countOrd ered By: Alex Love on 10-09-2023 Lymphocytes Auto (Unsp spec) [#/Vol] 1.13 10*3/uL 0.83-4.51 [facility] Basophil percentageOrdered B y: Alex Love on 10-09-2023 Basophils/100 WBC (Bld) 2.8 % 0-1 [facility] Bilirubin [Mass/Vol] 0.60 mg/dL 0.20-1.00 [facility] Comment on above: For patients on eltr ombopag therapy, use of [employer] [place] TBIL is not recommended. Chloride [Moles/Vol] 108 mmol/L 98-107 [facility] Eosinophils/100 WBC (Bld) 3.2 % 0-5 [facility] Glucose [Mass/Vol] 102 mg/dL 74-106 [facility] Comment on above: Fasting Glucose resu lt from 100 to 125 mg/dL suggests IMPAIRED HOMEOSTASIS per A.D.A. criteria. LDH [Catalytic activity/Vol] 263 U/L 84-246 [facility] Neutrophils (Bld) [#/Vol] 1.2 10*3/uL 2.0-7.7 [facility] Neutrophils/100 WBC (Bld) 40.8 % 47-70 [facility] Potassium [Moles/Vol] 4.4 mmol/L 3.5-5.1 [facility] Protein [Mass/Vol] 6.8 g/dL 6.4-8.2 [facility] Sodium [Moles/Vol] 139 mmol/L 136-145 [facility] WBC (Bld) [#/Vol] 2.8 10*3/uL 4.4-11.0 [facility] Blood erythrocytes count (nu mber/volume)Ordered By: Alex Love on 10-09-2023 RBC (Bld) [#/Vol] 2.97 10*6/uL 4.2-5.4 [facility] Blood hemoglobin measurement (mass/volume)Ordered By: Alex Love on 10-09-2023 Hemoglobin (Bld) [Mass/Vol] 11.1 g/dL 12.0-15.0 [facility] Blood lymphocytes/100 leukoc ytesOrdered By: Alex Love on 10-09-2023 Lymphocytes/100 WBC (Bld) 39.8 % 19-41 [facility] Blood manual differential co mment interpretation (narrative result)Ordered By: Alex Love on 10-09-2023 Manual differential comment Nba (Bld) [Interp] SCANNED [facility] Blood monocytes/100 leukocyt esOrdered By: Alex Love on 10-09-2023 Monocytes/100 WBC (Bld) 13.0 % 0-10 [facility] Blood platelet mean volumeOr dered By: Alex Love on 10-09-2023 Platelet mean volume (Bld) [Entitic vol] 8.7 fL 6.2-12.0 [facility] Determination of erythrocyte mean corpuscular volume (MCV)Ordered By: Alex Love on 10-09-2023 MCV (RBC) [Entitic vol] 114.5 fL 81-99 [facility] Hematocrit Auto (Bld) [Volum e fraction]Ordered By: Alex Love on 10-09-2023 Hematocrit (Bld) [Volume fraction] 34.0 % 37-47 [facility] Laboratory - Chemistry and C hemistry - challengeOrdered By: Alex Love on 10-09-2023 ALP [Catalytic activity/Vol] 68 U/L 45-117 [facility] ALT [Catalytic activity/Vol] 16 U/L 13-56 [facility] CO2 [Moles/Vol] 28.0 mmol/L 21.0-32.0 [facility] Globulin (S) [Mass/Vol] 3.5 g/dL 2.2-4.2 [facility] Urea nitrogen/Creatinine [Mass ratio] 19.7 mg/mg 10-20 [facility] Laboratory - Hematology and Cell countsOrdered By: Alex Love on 10-09-2023 Erythrocyte distribution width (RBC) [Entitic vol] 63.4 fL 35.1-43.9 [facility] Erythrocyte distribution width (RBC) [Ratio] 14.9 % 11.6-14.6 [facility] Immature granulocytes/100 WBC (Bld) 0.400 % 0.0-0.9 [facility] Comment on above: IG% - Immature Granu locytes (promyelocytes, myelocytes and metamyelocytes) > 1% indicates that a LEFT SHIFT is Present. MCH (RBC) [Entitic mass] 37.4 pg 27.0-32.0 [facility] Nucleated RBC/100 WBC (Bld) [Ratio] 0 % 0-5 [facility] Auto (RBC) [Mass/Vol]Or dered By: Alex Love on 10-09-2023 MCHC (RBC) [Mass/Vol] 32.6 g/dL 32-36 [facility] No Panel InformationOrdered By: Alex Love on 10-09-2023 Miscellaneous Test Comment MAILED SPECIMEN [facility] CA 15-3 Antigen 34.2 U/mL 0.0-25.0 [facility] Comment on above: [employer] El ectrochemiluminescence Immunoassay(ECLIA)Values obtained with different assay methods or kits cannotbe used interchangeably. Results cannot be interpreted asabsolute evidence of the presence or absence of malignantdisease.Performed at: [facility] [address] [id number] Director: Trev Joy PhD, Phone: [phone] Estimated Creatinine Clearance Calc 35.42 ml/min [facility] Estimated GFR (MDRD) Amer 76 mL/min >60 [facility] Comment on above: GFR Calc Estimated GFR (MDRD) Non-Af Amer 63 mL/min >60 [facility] Comment on above: Non- GFR Calc Reactive Lymphocytes 1+ [facility] Platelets bldOrdered By: Torito Love on 10-09-2023 Platelets (Bld) [#/Vol] 120 10*3/uL 150-450 [facility] Serum or plasma albumin brandan urement (mass/volume)Ordered By: Alex Love on 10-09-2023 Albumin [Mass/Vol] 3.3 g/dL 3.2-5.0 [facility] Serum or plasma albumin/glob ulin mass ratioOrdered By: Alex Love on 10-09-2023 Albumin/Globulin [Mass ratio] 0.9 {ratio} 0.9-2.4 [facility] Serum or plasma calcium brandan urement (mass/volume)Ordered By: Alex Love on 10-09-2023 Calcium [Mass/Vol] 9.1 mg/dL 8.5-10.1 [facility] Serum or plasma creatinine m easurement (mass/volume)Ordered By: Alex Love on 10-09-2023 Creatinine [Mass/Vol] 0.91 mg/dL 0.55-1.02 [facility] Comment on above: The validity of the calculated GFR & GFRAA in patients over 70 years has not been determined. Clinical correlation is essential. Serum or plasma urea nitroge n measurement (mass/volume)Ordered By: Alex Love on 10-09-2023 Urea nitrogen [Mass/Vol] 18 mg/dL 7-18 [facility] Thin prep Papanicolaou smear with manual screeningOrdered By: Alex Love on 10-09-2023 Thin prep Papanicolaou smear with manual screening 14 U/L 15-37 [facility] Thin prep Papanicolaou smear with manual screening 3 5-15 [facility] Laboratory - Hematology and Cell countsOrdered By: Alex Love on 09-11-2023 Anisocytosis Ql (Bld) 2+ [facility] Macrocytes detectionOrdered By: Alex Love on 09-11-2023 Macrocytes Ql (Bld) 1+ [facility] No Panel InformationOrdered By: Alex Love on 09-11-2023 CA 27.29 40.5 U/mL 0.0-38.6 [facility] Comment on above: [employer] Immu nochemiluminometric Methodology (ICMA)Values obtained with different assay methods or kits cannotbe used interchangeably. Results cannot be interpreted asabsolute evidence of the presence or absence of malignantdisease. Review by pathologistOrdered By: Alex Love on 09-11-2023 Pathologist review Nba (Unsp spec) [Interp] Reviewed [facility] Comment on above: Previous reported re sult: Marie green Edited by: RGOOD on 09/12/23:1526Pancytopenia.Macrocytic anemia.LeukopeniaMild Thrombocytopenia.Clinical correlation necessary.Rafi Joshi D.O. 09/12/23 AMENDED REPORT 09/12/23 1526 PATH REV previously reported as: Marie green Serum or plasma carcinoembry onic antigen measurement (mass/volume)Ordered By: Alex Love on 09-11-2023 Carcinoembryonic Ag [Mass/Vol] 2.8 ng/mL 0.0-4.7 [facility] Comment on above: Nonsmokers <3.9 Smok ers <5.6[employer] Electrochemiluminescence Immunoassay(ECLIA)Values obtained with different assay methods or kitscannot be used interchangeably. Results cannot beinterpreted as absolute evidence of the presence orabsence of malignant disease. Thin prep Papanicolaou smear with manual screeningOrdered By: Alex Love on 09-11-2023 Thin prep Papanicolaou smear with manual screening 1+ [facility] Blood polychromasia detectio n by light microscopyOrdered By: Alex Love on 06-05-2023 Polychromasia LM Ql (Bld) RARE [facility] Absolute lymphocyte countOrd ered By: Alex Love on 05-22-2023 Lymphocytes Auto (Unsp spec) [#/Vol] 1.46 10*3/uL 0.83-4.51 [facility] Basophil percentageOrdered B y: Alex Love on 05-22-2023 Basophils/100 WBC (Bld) 1.9 % 0-1 [facility] Bilirubin [Mass/Vol] 0.60 mg/dL 0.20-1.00 [facility] Comment on above: For patients on eltr ombopag therapy, use of Dimension [place] TBIL is not recommended. Chloride [Moles/Vol] 108 mmol/L 98-107 [facility] Eosinophils/100 WBC (Bld) 1.9 % 0-5 [facility] Glucose [Mass/Vol] 98 mg/dL 74-106 [facility] LDH [Catalytic activity/Vol] 206 U/L 84-246 [facility] Neutrophils (Bld) [#/Vol] 1.2 10*3/uL 2.0-7.7 [facility] Neutrophils/100 WBC (Bld) 39.1 % 47-70 [facility] Potassium [Moles/Vol] 4.5 mmol/L 3.5-5.1 [facility] Protein [Mass/Vol] 6.8 g/dL 6.4-8.2 [facility] Sodium [Moles/Vol] 138 mmol/L 136-145 [facility] WBC (Bld) [#/Vol] 3.2 10*3/uL 4.4-11.0 [facility] Blood erythrocytes count (nu mber/volume)Ordered By: Alex Love on 05-22-2023 RBC (Bld) [#/Vol] 3.52 10*6/uL 4.2-5.4 [facility] Blood hemoglobin measurement (mass/volume)Ordered By: Alex Love on 05-22-2023 Hemoglobin (Bld) [Mass/Vol] 11.2 g/dL 12.0-15.0 [facility] Blood lymphocytes/100 leukoc ytesOrdered By: Alex Love on 05-22-2023 Lymphocytes/100 WBC (Bld) 46.3 % 19-41 [facility] Blood manual differential co mment interpretation (narrative result)Ordered By: Alex Love on 05-22-2023 Manual differential comment Nba (Bld) [Interp] SCANNED [facility] Blood monocytes/100 leukocyt esOrdered By: Alex Love on 05-22-2023 Monocytes/100 WBC (Bld) 10.5 % 0-10 [facility] Blood platelet mean volumeOr dered By: Alex Love on 05-22-2023 Platelet mean volume (Bld) [Entitic vol] 9.0 fL 6.2-12.0 [facility] Determination of erythrocyte mean corpuscular volume (MCV)Ordered By: Alex Love on 05-22-2023 MCV (RBC) [Entitic vol] 101.4 fL 81-99 [facility] Hematocrit Auto (Bld) [Volum e fraction]Ordered By: Alex Love on 05-22-2023 Hematocrit (Bld) [Volume fraction] 35.7 % 37-47 [facility] Laboratory - Chemistry and C hemistry - challengeOrdered By: Alex Love on 05-22-2023 ALP [Catalytic activity/Vol] 88 U/L 45-117 [facility] ALT [Catalytic activity/Vol] 18 U/L 13-56 [facility] CO2 [Moles/Vol] 28.0 mmol/L 21.0-32.0 [facility] Globulin (S) [Mass/Vol] 3.5 g/dL 2.2-4.2 [facility] Urea nitrogen/Creatinine [Mass ratio] 16.3 mg/mg 10-20 [facility] Laboratory - Hematology and Cell countsOrdered By: Alex Love on 05-22-2023 Erythrocyte distribution width (RBC) [Entitic vol] 53.8 fL 35.1-43.9 [facility] Erythrocyte distribution width (RBC) [Ratio] 16.6 % 11.6-14.6 [facility] Immature granulocytes/100 WBC (Bld) 0.300 % 0.0-0.9 [facility] Comment on above: IG% - Immature Granu locytes (promyelocytes, myelocytes and metamyelocytes) > 1% indicates that a LEFT SHIFT is Present. MCH (RBC) [Entitic mass] 31.8 pg 27.0-32.0 [facility] Nucleated RBC/100 WBC (Bld) [Ratio] 0 % 0-5 [facility] MCHC Auto (RBC) [Mass/Vol]Or dered By: Alex Love on 05-22-2023 MCHC (RBC) [Mass/Vol] 31.4 g/dL 32-36 [facility] No Panel InformationOrdered By: Alex Love on 05-22-2023 CA 125 Antigen 29.2 U/mL 0.0-38.1 [facility] Comment on above: [employer] El ectrochemiluminescence Immunoassay(ECLIA)Values obtained with different assay methods or kits cannotbe used interchangeably. Results cannot be interpreted asabsolute evidence of the presence or absence of malignantdisease. CA 15-3 Antigen 34.9 U/mL 0.0-25.0 [facility] Comment on above: [employer] El ectrochemiluminescence Immunoassay(ECLIA)Values obtained with different assay methods or kits cannotbe used interchangeably. Results cannot be interpreted asabsolute evidence of the presence or absence of malignantdisease.Performed at: [facility] [id number] Director: Trev Joy PhD, Phone: [phone] [place] 27.29 39.9 U/mL 0.0-38.6 [facility] Comment on above: [employer] Immu nochemiluminometric Methodology (ICMA)Values obtained with different assay methods or kits cannotbe used interchangeably. Results cannot be interpreted asabsolute evidence of the presence or absence of malignantdisease. Estimated Creatinine Clearance Calc 31.51 ml/min [facility] Estimated GFR (MDRD) Amer 66 mL/min >60 [facility] Comment on above: GFR Calc Estimated GFR (MDRD) Non-Af Amer 54 mL/min >60 [facility] Comment on above: Non- GFR Calc Platelets bldOrdered By: Torito Love on 05-22-2023 Platelets (Bld) [#/Vol] 168 10*3/uL 150-450 [facility] Serum or plasma albumin brandan urement (mass/volume)Ordered By: Alex Love on 05-22-2023 Albumin [Mass/Vol] 3.3 g/dL 3.2-5.0 [facility] Serum or plasma albumin/glob ulin mass ratioOrdered By: Alex Love on 05-22-2023 Albumin/Globulin [Mass ratio] 0.9 {ratio} 0.9-2.4 [facility] Serum or plasma calcium brandan urement (mass/volume)Ordered By: Alex Love on 05-22-2023 Calcium [Mass/Vol] 8.7 mg/dL 8.5-10.1 [facility] Serum or plasma carcinoembry onic antigen measurement (mass/volume)Ordered By: Alex Love on 05-22-2023 Carcinoembryonic Ag [Mass/Vol] 3.1 ng/mL 0.0-4.7 [facility] Comment on above: Nonsmokers <3.9 Smok ers <5.6[facility] Electrochemiluminescence Immunoassay(ECLIA)Values obtained with different assay methods or kitscannot be used interchangeably. Results cannot beinterpreted as absolute evidence of the presence orabsence of malignant disease. Serum or plasma creatinine m easurement (mass/volume)Ordered By: Alex Love on 05-22-2023 Creatinine [Mass/Vol] 1.04 mg/dL 0.55-1.02 [facility] Comment on above: The validity of the calculated GFR & GFRAA in patients over 70 years has not been determined. Clinical correlation is essential. Serum or plasma urea nitroge n measurement (mass/volume)Ordered By: Alex Love on 05-22-2023 Urea nitrogen [Mass/Vol] 17 mg/dL 7-18 [facility] Thin prep Papanicolaou smear with manual screeningOrdered By: Alex Love on 05-22-2023 Thin prep Papanicolaou smear with manual screening 11 U/L 15-37 [facility] Thin prep Papanicolaou smear with manual screening 2 5-15 [facility] Basophil percentageOrdered B y: Uyen Lynn on 05-17-2023 Cholesterol [Mass/Vol] 140 mg/dL <200 [facility] Comment on above: <200 mg/dL Desirable 200-240 mg/dL Borderline >240 mg/dL High Risk Triglyceride [Mass/Vol] 69 mg/dL <199 [facility] Comment on above: The drugs N-Acetylcy steine and Metamizole may falsely depress this assay.Serum Triglycerides Reference Interval Normal <150 mg/dL Borderline high 150 - 199 mg/dL High 200 - 499 mg/dL Very High > or = 500 mg/dL Laboratory - Chemistry and C hemistry - challengeOrdered By: Uyen Lynn on 05-17-2023 Free T4 [Mass/Vol] 1.16 ng/dL 0.76-1.46 [facility] No Panel InformationOrdered By: Uyen Lynn on 05-17-2023 Free Triiodothyronine (T3) pg/dL 2.5 pg/mL 2.18-3.98 [facility] Thyroglobulin Antibody < 1.0 IU/mL 0.0-0.9 [facility] Comment on above: Thyroglobulin Antibo dy measured by [employer] CoulterMethodology Thyroglobulin Level 25.6 ng/mL 1.5-38.5 [facility] Comment on above: According to the [facility] Academy of Clinical Biochemistry,the reference interval for Thyroglobulin (TG) should berelated to euthyroid patients and not for patients whounderwent thyroidectomy. TG reference intervals for thesepatients depend on the residual mass of the thyroid tissueleft after surgery. Establishing a post-operative baselineis recommended. The assay limit of quantitation is 0.1ng/mLThyroglobulin measured by Shavon Riky [employer] Thyroid Stimulating Hormone (TSH) 0.34 uIU/mL 0.358-3.74 [facility] Vitamin D 25-Hydroxy 79.3 ng/mL [facility] Comment on above: Vitamin D 25(OH) Sta tus Range Deficiency <20 ng/mL (50nmol/L) Insufficiency 20 - 30 ng/mL (50 - 75 nmol/L) Sufficiency 30 - 100 ng/mL (75 - 250 nmol/L) Toxicity >100 ng/mL (>250 nmol/L) Serum or plasma cholesterol in HDL measurement (mass/volume)Ordered By: Uyen Lynn on 05-17-2023 Cholesterol in HDL [Mass/Vol] 62 mg/dL >40 [facility] Comment on above: The drugs N-Acetylcy steine and Metamizole may falsely depress this assay. Reference Range HDL <40 mg/dL Low HDL Cholesterol HDL >or= 60 mg/dL High HDL Cholesterol Serum or plasma cholesterol in VLDL measurement (mass/volume)Ordered By: Uyen Lynn on 05-17-2023 Cholesterol in VLDL [Mass/Vol] 14 mg/dL 5-40 [facility] Serum or plasma low density lipoprotein (LDL) cholesterol measurement (mass/volume)Ordered By: Uyen Lynn on 05-17-2023 Cholesterol in LDL [Mass/Vol] 64 mg/dL 0-130 [facility] Serum or plasma thyroperoxid ase antibody assay (units/volume)Ordered By: Uyen Lynn on 05-17-2023 TPO Ab Qn [IU]/mL 0-34 [facility] Comment on above: Performed at: [facility] [employer] Director: Trev Joy PhD, Phone: [phone] Whole blood hemoglobin A1c/t otal hemoglobin ratio (mass fraction)Ordered By: Uyen Lynn on 05-17-2023 HbA1c (Bld) [Mass fraction] 5.8 % 3.8-5.6 [facility] Comment on above: Normal < 5.7 % Predi abetic 5.7 - 6.4 % Diabetic >or= 6.5 % Please note range changes. Absolute lymphocyte countOrd ered By: Susanne Lopez on 05-08-2023 Lymphocytes Auto (Unsp spec) [#/Vol] 1.68 10*3/uL 0.83-4.51 [facility] Basophil percentageOrdered B y: Alex Love on 05-08-2023 Basophil percentage 3.6 mg/dL 2.5-4.9 [facility] LDH [Catalytic activity/Vol] 197 U/L 84-246 [facility] Basophil percentageOrdered B y: Susanne Lopez on 05-08-2023 Basophils/100 WBC (Bld) 1.1 % 0-1 [facility] Bilirubin [Mass/Vol] 0.70 mg/dL 0.20-1.00 [facility] Comment on above: For patients on eltr ombopag therapy, use of Dimension [place] TBIL is not recommended. Chloride [Moles/Vol] 106 mmol/L 98-107 [facility] Eosinophils/100 WBC (Bld) 2.9 % 0-5 [facility] Glucose [Mass/Vol] 97 mg/dL 74-106 [facility] Neutrophils (Bld) [#/Vol] 1.9 10*3/uL 2.0-7.7 [facility] Neutrophils/100 WBC (Bld) 49.4 % 47-70 [facility] Potassium [Moles/Vol] 4.6 mmol/L 3.5-5.1 [facility] Protein [Mass/Vol] 6.6 g/dL 6.4-8.2 [facility] Sodium [Moles/Vol] 137 mmol/L 136-145 [facility] WBC (Bld) [#/Vol] 3.8 10*3/uL 4.4-11.0 [facility] Blood erythrocytes count (nu mber/volume)Ordered By: Susanne Lopez on 05-08-2023 RBC (Bld) [#/Vol] 3.44 10*6/uL 4.2-5.4 [facility] Blood hemoglobin measurement (mass/volume)Ordered By: Susanne Lopez on 05-08-2023 Hemoglobin (Bld) [Mass/Vol] 11.2 g/dL 12.0-15.0 [facility] Blood lymphocytes/100 leukoc ytesOrdered By: Susanne Lopez on 05-08-2023 Lymphocytes/100 WBC (Bld) 44.7 % 19-41 [facility] Blood monocytes/100 leukocyt esOrdered By: Susanne Lopez on 05-08-2023 Monocytes/100 WBC (Bld) 1.1 % 0-10 [facility] Blood platelet mean volumeOr dered By: Susanne Lopez on 05-08-2023 Platelet mean volume (Bld) [Entitic vol] 8.6 fL 6.2-12.0 [facility] Determination of erythrocyte mean corpuscular volume (MCV)Ordered By: Susanne Lopez on 05-08-2023 MCV (RBC) [Entitic vol] 97.4 fL 81-99 [facility] Hematocrit Auto (Bld) [Volum e fraction]Ordered By: Susanne Lopez on 05-08-2023 Hematocrit (Bld) [Volume fraction] 33.5 % 37-47 [facility] Laboratory - Chemistry and C hemistry - challengeOrdered By: Susanne Lopez on 05-08-2023 ALP [Catalytic activity/Vol] 89 U/L 45-117 [facility] ALT [Catalytic activity/Vol] 18 U/L 13-56 [facility] CO2 [Moles/Vol] 26.0 mmol/L 21.0-32.0 [facility] Globulin (S) [Mass/Vol] 3.3 g/dL 2.2-4.2 [facility] Urea nitrogen/Creatinine [Mass ratio] 18.4 mg/mg 10-20 [facility] Laboratory - Chemistry and C hemistry - challengeOrdered By: Alex Love on 05-08-2023 Magnesium [Mass/Vol] 2.1 mg/dL 1.6-2.6 [facility] Laboratory - Hematology and Cell countsOrdered By: Susanne Lopez on 05-08-2023 Erythrocyte distribution width (RBC) [Entitic vol] 46.7 fL 35.1-43.9 [facility] Erythrocyte distribution width (RBC) [Ratio] 13.8 % 11.6-14.6 [facility] Immature granulocytes/100 WBC (Bld) 0.800 % 0.0-0.9 [facility] Comment on above: IG% - Immature Granu locytes (promyelocytes, myelocytes and metamyelocytes) > 1% indicates that a LEFT SHIFT is Present. MCH (RBC) [Entitic mass] 32.6 pg 27.0-32.0 [facility] Nucleated RBC/100 WBC (Bld) [Ratio] 0 % 0-5 [facility] MCHC Auto (RBC) [Mass/Vol]Or dered By: Susanne Lopez on 05-08-2023 MCHC (RBC) [Mass/Vol] 33.4 g/dL 32-36 [facility] No Panel InformationOrdered By: Susanne Lopez on 05-08-2023 Estimated Creatinine Clearance Calc 31.81 ml/min [facility] Estimated GFR (MDRD) Amer 66 mL/min >60 [facility] Comment on above: GFR Calc Estimated GFR (MDRD) Non-Af Amer 55 mL/min >60 [facility] Comment on above: Non- GFR Calc Reactive Lymphocytes RARE [facility] No Panel InformationOrdered By: Alex Love on 05-08-2023 2.1 mg/dL 1.6-2.6 [facility] Platelets bldOrdered By: Jes Lopez on 05-08-2023 Platelets (Bld) [#/Vol] 114 10*3/uL 150-450 [facility] Serum or plasma albumin brandan urement (mass/volume)Ordered By: Susanne Lopez on 05-08-2023 Albumin [Mass/Vol] 3.3 g/dL 3.2-5.0 [facility] Serum or plasma albumin/glob ulin mass ratioOrdered By: Susanne Lopez on 05-08-2023 Albumin/Globulin [Mass ratio] 1.0 {ratio} 0.9-2.4 [facility] Serum or plasma calcium brandan urement (mass/volume)Ordered By: Susanne Lopez on 05-08-2023 Calcium [Mass/Vol] 8.7 mg/dL 8.5-10.1 [facility] Serum or plasma creatinine m easurement (mass/volume)Ordered By: Susanne Lopez on 05-08-2023 Creatinine [Mass/Vol] 1.03 mg/dL 0.55-1.02 [facility] Comment on above: The validity of the calculated GFR & GFRAA in patients over 70 years has not been determined. Clinical correlation is essential. Serum or plasma urea nitroge n measurement (mass/volume)Ordered By: Susanne Lopez on 05-08-2023 Urea nitrogen [Mass/Vol] 19 mg/dL 7-18 [facility] Thin prep Papanicolaou smear with manual screeningOrdered By: Susanne Lopez on 05-08-2023 Thin prep Papanicolaou smear with manual screening 13 U/L 15-37 [facility] Thin prep Papanicolaou smear with manual screening 5 5-15 [facility] Absolute lymphocyte countOrd ered By: Susanne Lopez on 04-24-2023 Lymphocytes Auto (Unsp spec) [#/Vol] 1.80 10*3/uL 0.83-4.51 [facility] Basophil percentageOrdered B y: Susanne Lopez on 04-24-2023 Basophils/100 WBC (Bld) 0.6 % 0-1 [facility] Eosinophils/100 WBC (Bld) 2.7 % 0-5 [facility] Neutrophils (Bld) [#/Vol] 5.1 10*3/uL 2.0-7.7 [facility] Neutrophils/100 WBC (Bld) 65.4 % 47-70 [facility] WBC (Bld) [#/Vol] 7.8 10*3/uL 4.4-11.0 [facility] Basophil percentageOrdered B y: Alex Ivan on 04-24-2023 Bilirubin [Mass/Vol] 0.60 mg/dL 0.20-1.00 [facility] Comment on above: For patients on eltr ombopag therapy, use of Dimension [place] TBIL is not recommended. Chloride [Moles/Vol] 107 mmol/L 98-107 [facility] Glucose [Mass/Vol] 101 mg/dL 74-106 [facility] Comment on above: Fasting Glucose resu lt from 100 to 125 mg/dL suggests IMPAIRED HOMEOSTASIS per A.D.A. criteria. Potassium [Moles/Vol] 4.6 mmol/L 3.5-5.1 [facility] Protein [Mass/Vol] 6.5 g/dL 6.4-8.2 [facility] Sodium [Moles/Vol] 140 mmol/L 136-145 [facility] Blood erythrocytes count (nu mber/volume)Ordered By: Susanne Lopez on 04-24-2023 RBC (Bld) [#/Vol] 4.02 10*6/uL 4.2-5.4 [facility] Blood hemoglobin measurement (mass/volume)Ordered By: Susanne Lopez on 04-24-2023 Hemoglobin (Bld) [Mass/Vol] 12.1 g/dL 12.0-15.0 [facility] Blood lymphocytes/100 leukoc ytesOrdered By: Susanne Lopez on 04-24-2023 Lymphocytes/100 WBC (Bld) 23.1 % 19-41 [facility] Blood monocytes/100 leukocyt esOrdered By: Susanne Lopez on 04-24-2023 Monocytes/100 WBC (Bld) 7.7 % 0-10 [facility] Blood platelet mean volumeOr dered By: Susanne Lopez on 04-24-2023 Platelet mean volume (Bld) [Entitic vol] 8.3 fL 6.2-12.0 [facility] Determination of erythrocyte mean corpuscular volume (MCV)Ordered By: Susanne Lopez on 04-24-2023 MCV (RBC) [Entitic vol] 97.0 fL 81-99 [facility] Direct bilirubinOrdered By: Alex Love on 04-24-2023 Bilirubin.direct [Mass/Vol] 0.15 mg/dL 0.00-0.30 [facility] Hematocrit Auto (Bld) [Volum e fraction]Ordered By: Susanne Lopez on 04-24-2023 Hematocrit (Bld) [Volume fraction] 39.0 % 37-47 [facility] Laboratory - Chemistry and C hemistry - challengeOrdered By: Alex Love on 04-24-2023 ALP [Catalytic activity/Vol] 86 U/L 45-117 [facility] ALT [Catalytic activity/Vol] 11 U/L 13-56 [facility] CO2 [Moles/Vol] 29.0 mmol/L 21.0-32.0 [facility] Globulin (S) [Mass/Vol] 3.3 g/dL 2.2-4.2 [facility] Urea nitrogen/Creatinine [Mass ratio] 18.3 mg/mg 10-20 [facility] Laboratory - Hematology and Cell countsOrdered By: Susanne Lopez on 04-24-2023 Erythrocyte distribution width (RBC) [Entitic vol] 47.5 fL 35.1-43.9 [facility] Erythrocyte distribution width (RBC) [Ratio] 13.2 % 11.6-14.6 [facility] Immature granulocytes/100 WBC (Bld) 0.500 % 0.0-0.9 [facility] Comment on above: IG% - Immature Granu locytes (promyelocytes, myelocytes and metamyelocytes) > 1% indicates that a LEFT SHIFT is Present. MCH (RBC) [Entitic mass] 30.1 pg 27.0-32.0 [facility] Nucleated RBC/100 WBC (Bld) [Ratio] 0 % 0-5 [facility] MCHC Auto (RBC) [Mass/Vol]Or dered By: Susanne Lopez on 04-24-2023 MCHC (RBC) [Mass/Vol] 31.0 g/dL 32-36 [facility] No Panel InformationOrdered By: Alex Love on 04-24-2023 Estimated Creatinine Clearance Calc 37.23 ml/min [facility] Estimated GFR (MDRD) Amer 80 mL/min >60 [facility] Comment on above: GFR Calc Estimated GFR (MDRD) Non-Af Amer 66 mL/min >60 [facility] Comment on above: Non- GFR Calc Platelets bldOrdered By: Jes Lopez on 04-24-2023 Platelets (Bld) [#/Vol] 235 10*3/uL 150-450 [facility] Serum or plasma albumin brandan urement (mass/volume)Ordered By: Alex Love on 04-24-2023 Albumin [Mass/Vol] 3.2 g/dL 3.2-5.0 [facility] Serum or plasma albumin/glob ulin mass ratioOrdered By: Susanne Lopez on 04-24-2023 Albumin/Globulin [Mass ratio] 0.9 {ratio} 0.9-2.4 [facility] Serum or plasma calcium brandan urement (mass/volume)Ordered By: Alex Love on 04-24-2023 Calcium [Mass/Vol] 8.7 mg/dL 8.5-10.1 [facility] Serum or plasma creatinine m easurement (mass/volume)Ordered By: Alex Love on 04-24-2023 Creatinine [Mass/Vol] 0.88 mg/dL 0.55-1.02 [facility] Comment on above: The validity of the calculated GFR & GFRAA in patients over 70 years has not been determined. Clinical correlation is essential. Serum or plasma urea nitroge n measurement (mass/volume)Ordered By: Alex Love on 04-24-2023 Urea nitrogen [Mass/Vol] 16 mg/dL 7-18 [facility] Thin prep Papanicolaou smear with manual screeningOrdered By: Alex Love on 04-24-2023 Thin prep Papanicolaou smear with manual screening 12 U/L 15-37 [facility] Thin prep Papanicolaou smear with manual screening 4 5-15 [facility] No Panel InformationOrdered By: Alex Love on 04-09-2023 Miscellaneous Test Comment MAILED SPECIMEN [facility] Miscellaneous Test See comment [facility] Comment on above: Sent directly to [facility] per ordering physician. See comment [facility] Absolute lymphocyte countOrd ered By: Nery Maloney on 04-03-2023 Lymphocytes Auto (Unsp spec) [#/Vol] 2.06 10*3/uL 0.83-4.51 [facility] Basophil percentageOrdered B y: Nery Maloney on 04-03-2023 Basophils/100 WBC (Bld) 1.0 % 0-1 [facility] Chloride [Moles/Vol] 108 mmol/L 98-107 [facility] Eosinophils/100 WBC (Bld) 2.8 % 0-5 [facility] Glucose [Mass/Vol] 96 mg/dL 74-106 [facility] Neutrophils (Bld) [#/Vol] 4.2 10*3/uL 2.0-7.7 [facility] Neutrophils/100 WBC (Bld) 58.0 % 47-70 [facility] Potassium [Moles/Vol] 4.5 mmol/L 3.5-5.1 [facility] Sodium [Moles/Vol] 139 mmol/L 136-145 [facility] WBC (Bld) [#/Vol] 7.2 10*3/uL 4.4-11.0 [facility] Blood erythrocytes count (nu mber/volume)Ordered By: Nery Maloney on 04-03-2023 RBC (Bld) [#/Vol] 4.04 10*6/uL 4.2-5.4 [facility] Blood hemoglobin measurement (mass/volume)Ordered By: Nery Maloney on 04-03-2023 Hemoglobin (Bld) [Mass/Vol] 12.3 g/dL 12.0-15.0 [facility] Blood lymphocytes/100 leukoc ytesOrdered By: Nery Maloney on 04-03-2023 Lymphocytes/100 WBC (Bld) 28.8 % 19-41 [facility] Blood monocytes/100 leukocyt esOrdered By: Nery Maloney on 04-03-2023 Monocytes/100 WBC (Bld) 9.1 % 0-10 [facility] Blood platelet mean volumeOr dered By: Nery Maloney on 04-03-2023 Platelet mean volume (Bld) [Entitic vol] 8.4 fL 6.2-12.0 [facility] Determination of erythrocyte mean corpuscular volume (MCV)Ordered By: Nery Maloney on 04-03-2023 MCV (RBC) [Entitic vol] 97.0 fL 81-99 [facility] Hematocrit Auto (Bld) [Volum e fraction]Ordered By: Nery Maloney on 04-03-2023 Hematocrit (Bld) [Volume fraction] 39.2 % 37-47 [facility] Laboratory - Chemistry and C hemistry - challengeOrdered By: Nery Maloney on 04-03-2023 CO2 [Moles/Vol] 28.0 mmol/L 21.0-32.0 [facility] Free T4 [Mass/Vol] 1.14 ng/dL 0.76-1.46 [facility] Urea nitrogen/Creatinine [Mass ratio] 19.2 mg/mg 10-20 [facility] - Hematology and Cell countsOrdered By: Nery Maloney on 04-03-2023 Erythrocyte distribution width (RBC) [Entitic vol] 47.9 fL 35.1-43.9 [facility] Erythrocyte distribution width (RBC) [Ratio] 13.5 % 11.6-14.6 [facility] Immature granulocytes/100 WBC (Bld) 0.300 % 0.0-0.9 [facility] Comment on above: IG% - Immature Granu locytes (promyelocytes, myelocytes and metamyelocytes) > 1% indicates that a LEFT SHIFT is Present. MCH (RBC) [Entitic mass] 30.4 pg 27.0-32.0 [facility] Nucleated RBC/100 WBC (Bld) [Ratio] 0 [facility] [Mass/Vol]Or dered By: Nery Maloney on 04-03-2023 MCHC (RBC) [Mass/Vol] 31.4 g/dL 32-36 [facility] No Panel InformationOrdered By: Nery Maloney on 04-03-2023 Estimated GFR (MDRD) Amer 74 mL/min >60 [facility] Comment on above: GFR Calc Estimated GFR (MDRD) Non-Af Amer 61 mL/min >60 [facility] Comment on above: Non- GFR Calc Free Triiodothyronine (T3) pg/dL 2.7 pg/mL 2.18-3.98 [facility] Thyroid Stimulating Hormone (TSH) 0.28 uIU/mL 0.358-3.74 [facility] Platelets bldOrdered By: Jose M Maloney on 04-03-2023 Platelets (Bld) [#/Vol] 241 10*3/uL 150-450 [facility] Serum or plasma calcium brandan urement (mass/volume)Ordered By: Nery Maloney on 04-03-2023 Calcium [Mass/Vol] 9.3 mg/dL 8.5-10.1 [facility] Serum or plasma creatinine m easurement (mass/volume)Ordered By: Nery Maloney on 04-03-2023 Creatinine [Mass/Vol] 0.94 mg/dL 0.55-1.02 [facility] Comment on above: The validity of the calculated GFR & GFRAA in patients over 70 years has not been determined. Clinical correlation is essential. Serum or plasma urea nitroge n measurement (mass/volume)Ordered By: Nery Maloney on 04-03-2023 Urea nitrogen [Mass/Vol] 18 mg/dL 7-18 [facility] Thin prep Papanicolaou smear with manual screeningOrdered By: Nery Maloney on 04-03-2023 Thin prep Papanicolaou smear with manual screening 3 5-15 [facility] CNPNon 04-02-2023 CNPN Telephone ([employer]) -- ANAY SAMUELS ([id number]) 1945 F Date Time Provider Department 04/02/23 RAND CALZADA During your visit today, we recorded the following information about you: Rand Calzada DO 04/02/2023 1:06 PM Signed I called and spoke to both Mrs. Samuels and Dr. Love. Discussed medical management as next steps per tumor board recommendations. Surgery not indicated at this time. Tumor board note was faxed to Dr. Love's office [phone]. Rand Calzada DO Breast Surgeon Allergies As [...] Encounter Status:Closed by RAND CALZADA on 04/02/23 [facility] HER2 (4B5) BY IHCon 03-28-20 HER2 (4B5) BY IHC Breast Biomarkers RESULTS: Estrogen Receptor (ER) Positive 95% Stain intensity: moderate to strong Internal controls: absent External controls: appropriately stained Progesterone Receptor (VT) Positive 10% Stain intensity: weak Internal controls: [...] Reference Range for Hormone Receptors: Staining for VT of greater than or equal to 1% of the tumor cells is considered positive. Staining for ER of 1-10% of the tumor cells is considered low positive. Staining for ER of greater than 10% of the tumor cells is considered positive. Staining for ER or VT of less than 1% is considered negative. Reference Ranges for HER2 (ERBB2) immunohistochemistry: Positive (3+): Complete, intense circumferential membrane staining in >10% of tumor cells Equivocal (2+): Weak to moderate complete membrane staining observed in >10% of tumor cells Negative (1+): Incomplete, faint membrane staining in >10% of tumor cells Negative (0): No staining or incomplete faint membrane staining in [facility] SURGICAL PATHOLOGYon 023 Case Report Surgical Pathology R eport Case: [id number] Authorizing Provider: Rand Calzada DO Collected: 03/23/2023 03:36 PM Ordering Location: General Surgery Received: 03/23/2023 03:43 PM Pathologist: vIette Mantilla MD Specimen: SKIN PUNCH BIOPSY, left breast [facility] Clinical History new skin lesion [facility] Diagnosis Comment The histological sec tions reveal a proliferation of atypical epithelioid cells intercalated through the collagen bundles with focal duct formation. To better characterize the specimen, additional immunohistochemical stains are performed on block A1 and compared with appropriate controls at the [facility]. The lesional cells are strongly and diffusely positive for CK7 and GATA3. There is strong diffuse positive staining for ER (qualitative). There is weak focal positive staining for VT and HER2 (qualitative). 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 Breast markers will be reported in an addendum. Laboratory Developed Test (LDT) Disclaimer: Performance characteristics of immunohistochemical, immunofluorescent and chromogenic in-situ hybridization tests have been determined by the performing laboratory within [facility] s [facility] Pathology and Laboratory Medicine [place] ([facility], [facility], [facility], [facility], [facility], or [facility]) in a manner consistent with CLIA requirements. One or more of these tests have not been cleared or approved by the FDA. [facility] is regulated under CLIA as qualified to perform high-complexity testing. These tests are used for clinical purposes. They should not be regarded as investigational or for research. Positive and negative controls stain appropriately. [facility] FINAL DIAGNOSIS A. Skin, left breast , punch biopsy: -Metastatic breast adenocarcinoma, see comment. COLLIN/RTCha 03/26/2023 [facility] Gross Description A. SKIN PUNCH BIOPSY Received in formalin is a cylindrical segment of skin and subcutaneous tissue measuring 0.4 x 0.2 x 0.5 cm. On the skin surface there is a 0.3 solitario cm solitario flat area. The specimen is not sectioned. Totally submitted in one cassette. Gross examination performed at [facility], [address] [place] [address] FFS 03/23/2023 9:57 PM [facility] Performing Lab Diagnostic interpret ation performed at [facility], [address] [facility] [address] CLIA# [id number] University Dean: Ld Vang M.D. [facility] CNOVon 03-23-2023 CNOV Office Visit (GENSF) -- ANAY SAMUELS ([id number]) 1945 F Date Time Provider Department 03/23/23 [...] and has been on neoadjuvant endocrine therapy. ER+VT+HER2- [id number] (thyroid/cervical LN) HISTORY: Patient was last seen for a follow up on 09/28/2022 At that time, she had showed improvement with the use of AI, but clinically, unresectable, with a mass involving her chest wall. In the interim, she continues on AI She is here to discuss the findings on a recent PET scan performed at [facility] on 02/27/2023. Review of findings reported both [...] cc: Erik Nguyen MD [address] [id number] Ivette Mcginnis LPN 03/23/2023 2:11 PM Signed [...] HISTORY Diagn (more content not included)... Normal [facility] HER2 (4B5) BY IHCon 03-23-20 HER2 (4B5) BY IHC [facility] Comment on above: Order Comment: Speci men Type: TISSUE SPECIMEN Ordering Facility: [facility] Address: [address] [place] [id number] Result Comment: [address] [facility] Bi[facility]ark[facility] RESULTS: Estrogen Receptor (ER) Positive 95% Stain intensity: moderate to strong Internal controls: absent External controls: appropriately stained Progesterone Receptor (VT) Positive 10% Stain intensity: weak Internal controls: [...] Reference Range for Hormone Receptors: Staining for VT of greater than or equal to 1% of the tumor cells is considered positive. Staining for ER of 1-10% of the tumor cells is considered low positive. Staining for ER of greater than 10% of the tumor cells is considered positive. Staining for ER or VT of less than 1% is considered negative. [...] and Progesterone Receptor Testing in Breast Cancer: [place] Society of Clinical Oncology/College of [place] Pathologists Guideline Update. SHAMAR Vallejo, Ceasar MASTERS, et al., Arch Pathol Lab Med. 2019Oct 27. METHODS: Estrogen Receptor: Food and Drug Administration (FDA) cleared: [employer], [place], [place] Primary Antibody: SP1 Progesterone Receptor: FDA cleared: [employer], [place], [place] Primary Antibody: IE2 HER2 (ERBB2) by IHC: FDA cleared: [employer], [place], [place] Primary Antibody:4B5 The hormone receptor tests were performed and reported in accordance with the guidelines approved by the [place] Society of Clinical Oncologists and the College of [place] Pathologists. Genevieve IBANEZ, et al. Estrogen and Progesterone Receptor Testing in Breast Cancer: [place] Society of Clinical Oncologists and the College of [place] Pathologists Guideline Update. Arch Pathol Lab Med. 2019;144(5):545-563. PMID: [id number]. The hormone receptor assays have been internally validated on decalcified tissues (for [facility] only). Estrogen and progesterone receptor results are valid if tissue was processed according to ASCO/CAP guidelines. Antibody and Detection System: [employer]'s Pathway anti-HER2 rabbit monoclonal antibody (clone 4B5), detected with the [employer] UltraView [place]unden DAB Detection Kit (indirect, biotin-free detection system): [employer], [place], [place]. Control Slides: Cell line controls with high, [...] accordance with the guidelines approved by the [place] Society of Clinical Oncologists and the College of [place] Pathologists. Aiyana WOOD et al. Arch Pathol Lab Med. 2018;1379(9) The HER2 assay has not been validated on decalcified tissues. Results should be interpreted with caution given the possibility of false negative results on decalcified specimens. Laboratory Developed Test (LDT) Disclaimer: Performance characteristics of immunohistochemical, immunofluorescent and chromogenic in-situ hybridization tests have been determined by the performing laboratory within [facility]???s [facility] Pathology [facility] [place] ([facility] (more content not included)... Performed By: #### L [id number], S #### [facility] CLIA [id number] [address] [place] [address] STATES OF [facility] SURGICAL PATHOLOGYon 023 CASE REPORT Normal [facility] Comment on above: Order Comment: Speci men Type: TISSUE SPECIMEN Ordering Facility: [facility] Address: [address] [place] [address] Result Comment: Surg [facility] Pathology Report Case: [id number] Authorizing Provider: Rand Calzada DO Collected: 03/23/2023 03:36 PM Ordering Location: General Surgery Received: 03/23/2023 03:43 PM Pathologist: Ivette Mantilla MD Specimen: SKIN PUNCH BIOPSY, left breast Performed By: #### L [id number], S #### [facility] CLIA [id number] [address] [place] [address] [place] CLINICAL HISTORY new skin lesion Normal [facility] Comment on above: Order Comment: Speci men Type: TISSUE SPECIMEN Ordering Facility: [facility] Address: [address] [place] [address] Performed By: #### L [id number], S #### [facility] CLIA [id number] [facility] [address] DIAGNOSIS COMMENT Normal [facility] Comment on above: Order Comment: Specvi castaneda Type: TISSUE SPECIMEN Ordering Facility: [facility] Address: [place] [id number] Result Comment: The histological sections reveal a proliferation of atypical epithelioid cells intercalated through the collagen bundles with focal duct formation. To better characterize the specimen, additional immunohistochemical stains are performed on block A1 and compared with appropriate controls at the [facility]. The lesional cells are strongly and diffusely positive for CK7 and GATA3. There is strong diffuse positive staining for ER (qualitative). There is weak focal positive staining for VT and HER2 (qualitative). 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 Breast markers will be reported in an addendum. Laboratory Developed Test (LDT) Disclaimer: Performance characteristics of immunohistochemical, immunofluorescent and chromogenic in-situ hybridization tests have been determined by the performing laboratory within [facility]???s [facility] [place] ([facility], [facility], [facility], [facility], [facility], or [facility]) in a manner consistent with CLIA requirements. One or more of these tests have not been cleared or approved by the FDA. RT[facility] is regulated under CLIA as qualified to perform high-complexity testing. These tests are used for clinical purposes. They should not be regarded as investigational or for research. Positive and negative controls stain appropriately. Performed By: #### L [id number], S #### [facility] CLIA [id number] [address] [place] [address] FINAL DIAGNOSIS Normal [facility] Comment on above: Order Comment: Speci men Type: TISSUE SPECIMEN Ordering Facility: [facility] Address: [place] [address] Result Comment: Sue perea, left breast, punch biopsy: -Metastatic breast adenocarcinoma, see comment. COLLIN/KAVITHA 03/26/2023 Performed By: #### L [id number], S #### [facility] CLIA [id number] [address] [place] [address] FINAL PERFORMING LAB Normal [facility] Comment on above: Order Comment: Speci men Type: TISSUE SPECIMEN Ordering Facility: [facility] Address: [address] [place] [address] Result Comment: Diag nostic interpretation performed at [facility], [address] [place] [address] CLIA# [id number] University Dean: Ld Vang M.D. Performed By: #### L [id number], S #### [facility] CLIA [id number] [address] [place] [address] GROSS DESCRIPTION Normal [facility] Comment on above: Order Comment: Speci men Type: TISSUE SPECIMEN Ordering Facility: [facility] Address: [address] [place] [address] Result Comment: A. S KIN PUNCH BIOPSY Received in formalin is a cylindrical segment of skin and subcutaneous tissue measuring 0.4 x 0.2 x 0.5 cm. On the skin surface there is a 0.3 solitario cm solitario flat area. The specimen is not sectioned. Totally submitted in one cassette. Gross examination performed at [facility], [address] [place] [address] FFS 03/23/2023 9:57 PM Performed By: #### L [id number], S #### [facility] CLIA [id number] [address] [place] [address] OF [facility] CNPNargis 03-02-2023 CNPN Telephone ([employer]) -- ANAY SAMUELS ([id number]) 1945 F Date Time Provider Department 03/02/23 [...] March 23 at 2 pm at [facility]. She accepted this date time. I have informed her I received her pet scan reports, will have images downloaded prior to her appointment. She thanked me for the return call. Ivette Mcginnis LPN Allergies As of Date: 03/02/2023 Noted [...] Encounter Status:Closed by IVETTE MCGINNIS on 03/02/23 [facility] Absolute lymphocyte countOrd ered By: Dr. Love on 03-01-2023 Lymphocytes Auto (Unsp spec) [#/Vol] 2.16 10*3/uL 0.83-4.51 [facility] Basophil percentageOrdered B y: Dr. Love on 03-01-2023 Basophils/100 WBC (Bld) 0.8 % 0-1 [facility] Bilirubin [Mass/Vol] 0.40 mg/dL 0.20-1.00 [facility] Comment on above: For patients on eltr ombopag therapy, use of [employer] [place] TBIL is not recommended. Chloride [Moles/Vol] 108 mmol/L 98-107 [facility] Eosinophils/100 WBC (Bld) 2.8 % 0-5 [facility] Glucose [Mass/Vol] 87 mg/dL 74-106 [facility] LDH [Catalytic activity/Vol] 189 U/L 84-246 [facility] Neutrophils (Bld) [#/Vol] 4.1 10*3/uL 2.0-7.7 [facility] Neutrophils/100 WBC (Bld) 57.4 % 47-70 [facility] Potassium [Moles/Vol] 4.1 mmol/L 3.5-5.1 [facility] Protein [Mass/Vol] 6.9 g/dL 6.4-8.2 [facility] Sodium [Moles/Vol] 141 mmol/L 136-145 [facility] WBC (Bld) [#/Vol] 7.1 10*3/uL 4.4-11.0 [facility] Blood erythrocytes count (nu mber/volume)Ordered By: Dr. Love on 03-01-2023 RBC (Bld) [#/Vol] 4.11 10*6/uL 4.2-5.4 [facility] Blood hemoglobin measurement (mass/volume)Ordered By: Dr. Love on 03-01-2023 Hemoglobin (Bld) [Mass/Vol] 12.5 g/dL 12.0-15.0 [facility] Blood lymphocytes/100 leukoc ytesOrdered By: Dr. Love on 03-01-2023 Lymphocytes/100 WBC (Bld) 30.3 % 19-41 [facility] Blood monocytes/100 leukocyt esOrdered By: Dr. Love on 03-01-2023 Monocytes/100 WBC (Bld) 8.3 % 0-10 [facility] Blood platelet mean volumeOr dered By: Dr. Love on 03-01-2023 Platelet mean volume (Bld) [Entitic vol] 8.3 fL 6.2-12.0 [facility] Determination of erythrocyte mean corpuscular volume (MCV)Ordered By: Dr. Love on 03-01-2023 MCV (RBC) [Entitic vol] 96.8 fL 81-99 [facility] Hematocrit Auto (Bld) [Volum e fraction]Ordered By: Dr. Love on 03-01-2023 Hematocrit (Bld) [Volume fraction] 39.8 % 37-47 [facility] Laboratory - Chemistry and C hemistry - challengeOrdered By: Dr. Love on 03-01-2023 ALP [Catalytic activity/Vol] 75 U/L 45-117 [facility] ALT [Catalytic activity/Vol] 22 U/L 13-56 [facility] CO2 [Moles/Vol] 26.0 mmol/L 21.0-32.0 [facility] Globulin (S) [Mass/Vol] 3.5 g/dL 2.2-4.2 [facility] Urea nitrogen/Creatinine [Mass ratio] 21.6 mg/mg 10-20 [facility] Laboratory - Hematology and Cell countsOrdered By: Dr. Love on 03-01-2023 Erythrocyte distribution width (RBC) [Entitic vol] 48.0 fL 35.1-43.9 [facility] Erythrocyte distribution width (RBC) [Ratio] 13.5 % 11.6-14.6 [facility] Immature granulocytes/100 WBC (Bld) 0.400 % 0.0-0.9 [facility] Comment on above: IG% - Immature Granu locytes (promyelocytes, myelocytes and metamyelocytes) > 1% indicates that a LEFT SHIFT is Present. MCH (RBC) [Entitic mass] 30.4 pg 27.0-32.0 [facility] Nucleated RBC/100 WBC (Bld) [Ratio] 0 % 0-5 [facility] MCHC Auto (RBC) [Mass/Vol]Or dered By: Dr. Love on 03-01-2023 MCHC (RBC) [Mass/Vol] 31.4 g/dL 32-36 [facility] No Panel InformationOrdered By: Dr. Love on 03-01-2023 Miscellaneous Test See comment [facility] Comment on above: Sent directly to [facility] per ordering physician. Estimated GFR (MDRD) Amer 75 mL/min >60 [facility] Comment on above: GFR Calc Estimated GFR (MDRD) Non-Af Amer 62 mL/min >60 [facility] Comment on above: Non- GFR Calc Platelets bldOrdered By: Dr. Love on 03-01-2023 Platelets (Bld) [#/Vol] 221 10*3/uL 150-450 [facility] Serum or plasma albumin brandan urement (mass/volume)Ordered By: Dr. Love on 03-01-2023 Albumin [Mass/Vol] 3.4 g/dL 3.2-5.0 [facility] Serum or plasma albumin/glob ulin mass ratioOrdered By: Dr. Love on 03-01-2023 Albumin/Globulin [Mass ratio] 1.0 {ratio} 0.9-2.4 [facility] Serum or plasma calcium brandan urement (mass/volume)Ordered By: Dr. Love on 03-01-2023 Calcium [Mass/Vol] 9.0 mg/dL 8.5-10.1 [facility] Serum or plasma creatinine m easurement (mass/volume)Ordered By: Dr. Love on 03-01-2023 Creatinine [Mass/Vol] 0.93 mg/dL 0.55-1.02 [facility] Comment on above: The validity of the calculated GFR & GFRAA in patients over 70 years has not been determined. Clinical correlation is essential. Serum or plasma urea nitroge n measurement (mass/volume)Ordered By: Dr. Love on 03-01-2023 Urea nitrogen [Mass/Vol] 20 mg/dL 05-01 [facility] Thin prep Papanicolaou smear with manual screeningOrdered By: Dr. Love on 03-01-2023 Thin prep Papanicolaou smear with manual screening 17 U/L [facility] Thin prep Papanicolaou smear with manual screening 7 02-26 [facility] CNOVon 09-28-2022 [facility] -- ANAY SAMUELS ([id number]) 1945 F Date Time Provider Department 09/28/22 3:30 PM [facility] During your visit today, we recorded the following information about you: Ivette Mcginnis LPN 09/28/2022 4:33 PM Signed Follow up Did patient bring outside records to appt today? : No Last mammogram on: 12/08/21 bilateral Results: see report Is the patient active on [employer] Yes Electronically Signed By: Ivette Mcginnis LPN [...] Vaping Use Vaping Use: Never used Rand A Zheng, DO 10/06/2022 6:16 AM Signed REASON FOR [...] those lesions. 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 Alex Love (Medical Oncologist) at [facility] ([facility] Remains on Anastrozole without any side effects and reports the left lump has decreased in size. Tolerating the medication well. Overall, has stayed pretty healthy since I last saw her. Presents with her today. IMAGIN09/14/22 [facility] 0539 - CT CHEST W IVCON / [...] or dest (more content not included)... Normal [facility] CT Chest W contrast Nicole IMPRESSION: 1. No suspicious pulmonary nodules 2. Decreased size of left axillary lymph nodes 3. Decreased size of a lobulated mass in the medial left breast Trauma Program Manager: PSCB Transcribe Date/Time: Sep 16 2022 4:33P Dictated by : ISABELLA ORTIZ MD This examination was interpreted and the report reviewed and electronically signed by: ISABELLA ORTIZ MD on Sep 16 2022 4:43PM [facility] DIVISION OF RADIOLOGY * * *Final Report* * * DATE OF EXAM: Sep 14 2022 10:36AM [facility] 0539 - CT CHEST W IVCON / [...] imaged upper abdomen. Small sliding hiatal hernia. General Freight Agent (topogram) images: No additional findings. DIVISION OF RADIOLOGY Provider, [facility] - 09/16/2022 * * *Final Report* * * DATE OF EXAM: Sep 14 2022 10:36AM [facility] 0539 - CT CHEST W IVCON / [...] imaged upper abdomen. Small sliding hiatal hernia. General Freight Agent (topogram) images: No additional findings. IMPRESSION IMPRESSION: 1. No suspicious pulmonary nodules 2. Decreased size of left axillary lymph nodes 3. Decreased size of a lobulated mass in the medial left breast Trauma Program Manager: PSCB Transcribe Date/Time: Sep 16 2022 4:33P Dictated by : ISABELLA ORTIZ MD This examination was interpreted and the report reviewed and electronically signed by: ISABELLA ORTIZ MD on Sep 16 2022 4:43PM EST [facility] CT Chest W contrast IVOrdere d By: Ccf Provider on 09-16-2022 [facility] CREATININE, BLOOD (POC)on Creatinine [Mass/Vol] 0.60 mg/dL 0.6 - 1.3 mg/dL [facility] eGFR (POCT) mL/min/1.73 m2 [facility] Location:Radiology [facility], [address] [address] [facility], [place], [place], [address] [facility] POINT OF CARE [facility] CT CHEST W IVCONon 2 CT CHEST W IVCON * * *Final Report* * * DATE OF EXAM: Sep 14 2022 10:36AM [facility] 0539 - CT CHEST W IVCON / [...] imaged upper abdomen. Small sliding hiatal hernia. General Freight Agent (topogram) images: No additional findings. IMPRESSION: 1. No suspicious pulmonary nodules 2. Decreased size of left axillary lymph nodes 3. Decreased size of a lobulated mass in the medial left breast Trauma Program Manager: PSCB Transcribe Date/Time: Sep 16 2022 4:33P Dictated by : ISABELLA ORTIZ MD This examination was interpreted and the report reviewed and electronically signed by: ISABELLA ORTIZ MD on Sep 16 2022 4:43PM EST [id number] Normal [facility] CT Chest W contrast Nicole Radiology Study observation (narrative) [facility] CNOVon 06-15-2022 CNOV Office Visit ([facility] ) -- CUATEANAY JUAN ([id number]) 1945 F Date Time Provider Department 06/15/22 [...] those lesions. 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 Alex Love (Medical Oncologist) at [facility] ([facility]). Remains on Anastrozole without any side [...] dated: 12/08/2021 ultrasound and 12/08/2021 mammogram - [facility]. There are scattered fibroglandular elements in left [...] LEFT BREAST: (more content not included)... Normal [facility] DBT Breast - left diagnostic for implanton 06-15-2022 * * *Final Report* * * DATE OF EXAM: Jun 15 2022 9:56AM SSW 0628 - [facility] DIAG W TAVON LT / PROCEDURE REASON: multiple diagnoses * * * * Physician Interpretation * * * * RESULT: #[id number] - [facility] DIAG W TAVON LT #[id number] - [facility] US BREAST LTD LT UNILATERAL LEFT DIGITAL [...] dated: 12/08/2021 ultrasound and 12/08/2021 mammogram - [facility]. There are scattered fibroglandular elements in left [...] in the breast. DIVISION OF RADIOLOGY Provider, [facility] - 06/15/2022 * * *Final Report* * * DATE OF EXAM: Jun 15 2022 9:56AM SSW 0628 - [facility] DIAG W TAVON LT / PROCEDURE REASON: multiple diagnoses * * * * Physician Interpretation * * * * RESULT: #[id number] - [facility] DIAG W TAVON LT #[id number] - [facility] US BREAST LTD LT UNILATERAL LEFT DIGITAL [...] dated: 12/08/2021 ultrasound and 12/08/2021 mammogram - [facility]. There are scattered fibroglandular elements in left [...] dated: 12/08/2021 ultrasound and 12/08/2021 mammogram - [facility]. Real-time ultrasound of the left breast was [...] Health, Family Medicine, and Medical/Surgical Oncology, the [facility] has carefully reviewed the data and [...] a biennial int (more content not included)... [facility] DIAG W TAVON LTon 022 [facility] DIAG W TAVON LT * * *Final Report* * * DATE OF EXAM: Jun 15 2022 9:56AM SSW 0628 - [facility] DIAG W TAVON LT / PROCEDURE REASON: multiple diagnoses * * * * Physician Interpretation * * * * RESULT: #[id number] - [facility] DIAG W TAVON LT #[id number] - [facility] BREAST LTD LT UNILATERAL LEFT DIGITAL DIAGNOSTIC [...] dated: 12/08/2021 ultrasound and 12/08/2021 mammogram - [facility]. There are scattered fibroglandular elements in left [...] dated: 12/08/2021 ultrasound and 12/08/2021 mammogram - [facility]. Real-time ultrasound of the left breast was [...] Health, Family Medicine, and Medical/Surgical Oncology, the [facility] has carefully reviewed the data and [...] their pr (more content not included)... Normal [facility] [email or web address] LTon 06-15 [email or web address] * * *Final Report* * * DATE OF EXAM: Jun 15 2022 10:20AM SSW 0593 - [email or web address] LT / PROCEDURE REASON: multiple diagnoses * * * * Physician Interpretation * * * * RESULT: #[id number] - [facility] DIAG W TAVON LT #[id number] - [email or web address] LT UNILATERAL LEFT DIGITAL DIAGNOSTIC MAMMOGRAM TOMOSYNTHESIS [...] dated: 12/08/2021 ultrasound and 12/08/2021 mammogram - [facility]. There are scattered fibroglandular elements in left [...] dated: 12/08/2021 ultrasound and 12/08/2021 mammogram - [facility]. Real-time ultrasound of the left breast was [...] Health, Family Medicine, and Medical/Surgical Oncology, the [facility] has carefully reviewed the data and [...] with their (more content not included)... Normal [facility] No Panel InformationOrdered By: Ccf Provider on 06-15-2022 [facility] No Panel Informationon 06-15 Radiology Study observation (narrative) [facility] Breast - left limitedon 0 06-15-2022 * * *Final Report* * * DATE OF EXAM: Jun 15 2022 10:20AM SSW 0593 - [facility] [employer] LT / PROCEDURE REASON: multiple diagnoses * * * * Physician Interpretation * * * * RESULT: #[id number] - [facility] DIAG W TAVON LT #[id number] - [facility] [employer] LTD LT UNILATERAL LEFT DIGITAL DIAGNOSTIC MAMMOGRAM [...] dated: 12/08/2021 ultrasound and 12/08/2021 mammogram - [facility]. There are scattered fibroglandular elements in left [...] in the breast. DIVISION OF RADIOLOGY Provider, [facility] - 06/15/2022 * * *Final Report* * * DATE OF EXAM: Jun 15 2022 10:20AM SSW 0593 - [facility] [employer] BREAST Sitrion LT / PROCEDURE REASON: multiple diagnoses * * * * Physician Interpretation * * * * RESULT: #[id number] - [facility] DIAG W TAVON LT #[id number] - [facility] [employer] BREAST Sitrion LT UNILATERAL LEFT DIGITAL DIAGNOSTIC MAMMOGRAM TOMOSYNTHESIS [...] dated: 12/08/2021 ultrasound and 12/08/2021 mammogram - [facility]. There are scattered fibroglandular elements in left [...] dated: 12/08/2021 ultrasound and 12/08/2021 mammogram - [facility]. Real-time ultrasound of the left breast was [...] Health, Family Medicine, and Medical/Surgical Oncology, the [facility] has carefully reviewed the data and [...] to a biennial (more content not included)... [facility] Basophil percentageon 2021 Bilirubin [Mass/Vol] 0.50 mg/dL 0.20-1.00 [facility] Work Phone: Comment on above: For patients on eltr ombopag therapy, use of [employer] [place] TBIL is not recommended. Cholesterol [Mass/Vol] 171 mg/dL <200 Wo [facility]lee [facility] Work Phone: Comment on above: <200 mg/dL Desirable 200-240 mg/dL Borderline >240 mg/dL High Risk Protein [Mass/Vol] 6.6 g/dL 6.4-8.2 [facility] Work [facility]: Triglyceride [Mass/Vol] 65 mg/dL <199 [facility] Work Phone: Comment on above: The drugs N-Acetylcy steine and Metamizole may falsely depress this assay.Serum Triglycerides Reference Interval Normal <150 mg/dL Borderline high 150 - 199 mg/dL High 200 - 499 mg/dL Very High > or = 500 mg/dL Direct bilirubinon 2 Bilirubin.direct [Mass/Vol] 0.15 mg/dL 0.00-0.30 [facility] Work Phone: Laboratory - Chemistry and C hemistry - challengeon 04-01-2022 ALP [Catalytic activity/Vol] 70 U/L 45-117 [facility] Work Phone: ALT [Catalytic activity/Vol] 15 U/L 13-56 [facility] Work Phone: Globulin (S) [Mass/Vol] 3.3 g/dL 2.2-4.2 [facility] Work Phone: Serum or plasma albumin brandan urement (mass/volume)on 04-01-2022 Albumin [Mass/Vol] 3.3 g/dL 3.2-5.0 [facility] Work Phone: Serum or plasma cholesterol in HDL measurement (mass/volume)on 04-01-2022 Cholesterol in HDL [Mass/Vol] 63 mg/dL >40 [facility] Work Phone: Comment on above: The drugs N-Acetylcy steine and Metamizole may falsely depress this assay. Reference Range HDL <40 mg/dL Low HDL Cholesterol HDL >or= 60 mg/dL High HDL Cholesterol Serum or plasma cholesterol in VLDL measurement (mass/volume)on 04-01-2022 Cholesterol in VLDL [Mass/Vol] 13 mg/dL 5-40 [facility] Work Phone: Serum or plasma low density lipoprotein (LDL) cholesterol measurement (mass/volume)on 04-01-2022 Cholesterol in LDL [Mass/Vol] 95 mg/dL 0-130 [facility] Work Phone: Thin prep Papanicolaou smear with manual screeningon 04-01-2022 Thin prep Papanicolaou smear with manual screening 15 U/L 15-37 [facility] Work Phone: Absolute lymphocyte counton 03-16-2022 Lymphocytes Auto (Unsp spec) [#/Vol] 2.10 10*3/uL 0.83-4.51 [facility] Work Phone: Basophil percentageon 2021 Basophils/100 WBC (Bld) 0.5 % 0-1 [facility] Work Phone: Bilirubin [Mass/Vol] 0.50 mg/dL 0.20-1.00 [facility] Work Phone: Comment on above: For patients on eltr ombopag therapy, use of [employer]ension [place] TBIL is not recommended. Chloride [Moles/Vol] 106 mmol/L 98-107 [facility] Work Phone: [phone] Eosinophils/100 WBC (Bld) 1.9 % 0-5 [facility] Work Phone: [phone] Glucose [Mass/Vol] 108 mg/dL 74-106 [facility] Work Phone: Comment on above: Fasting Glucose resu lt from 100 to 125 mg/dL suggests IMPAIRED HOMEOSTASIS per A.D.A. criteria. Neutrophils (Bld) [#/Vol] 3.4 10*3/uL 2.0-7.7 [facility] Work Phone: [phone] Neutrophils/100 WBC (Bld) 54.6 % 47-70 [facility] Work Phone: Potassium [Moles/Vol] 4.4 mmol/L 3.5-5.1 [facility] Work Phone: Protein [Mass/Vol] 7.0 g/dL 6.4-8.2 [facility] Work Phone: Sodium [Moles/Vol] 139 mmol/L 136-145 [facility] Work Phone: WBC (Bld) [#/Vol] 6.2 10*3/uL 4.4-11.0 [facility] Work Phone: Blood erythrocytes count (nu mber/volume)on 03-16-2022 RBC (Bld) [#/Vol] 3.95 10*6/uL 4.2-5.4 [facility] Work Phone: Blood hemoglobin measurement (mass/volume)on 03-16-2022 Hemoglobin (Bld) [Mass/Vol] 12.3 g/dL 12.0-15.0 [facility] Work Phone: Blood lymphocytes/100 leukoc yteson 03-16-2022 Lymphocytes/100 WBC (Bld) 33.8 % 19-41 [facility] Work Phone: Blood monocytes/100 leukocyt eson 03-16-2022 Monocytes/100 WBC (Bld) 8.7 % 0-10 [facility] Work Phone: Blood platelet mean volumeon 03-16-2022 Platelet mean volume (Bld) [Entitic vol] 8.2 fL 6.2-12.0 [facility] Work Phone: Determination of erythrocyte mean corpuscular volume (MCV)on 03-16-2022 MCV (RBC) [Entitic vol] 97.7 fL 81-99 [facility] Work Phone: Hematocrit Auto (Bld) [Volum e fraction]on 03-16-2022 Hematocrit (Bld) [Volume fraction] 38.6 % 37-47 [facility] Work Phone: Laboratory - Chemistry and C hemistry - challengeon 03-16-2022 ALP [Catalytic activity/Vol] 72 U/L 45-117 [facility] Work Phone: ALT [Catalytic activity/Vol] 19 U/L 13-56 [facility] Work Phone: CO2 [Moles/Vol] 28.0 mmol/L 21.0-32.0 [facility] Work Phone: Globulin (S) [Mass/Vol] 3.5 g/dL 2.2-4.2 [facility] Work Phone: Urea nitrogen/Creatinine [Mass ratio] 25.0 mg/mg 10-20 [facility] Work Phone: Laboratory - Hematology and Cell countson 03-16-2022 Erythrocyte distribution width (RBC) [Entitic vol] 47.4 fL 35.1-43.9 [facility] Work Phone: Erythrocyte distribution width (RBC) [Ratio] 13.1 % 11.6-14.6 [facility] Work Phone: Immature granulocytes/100 WBC (Bld) 0.500 % 0.0-0.9 [facility] Work Phone: Comment on above: IG% - Immature Granu locytes (promyelocytes, myelocytes and metamyelocytes) > 1% indicates that a LEFT SHIFT is Present. MCH (RBC) [Entitic mass] 31.1 pg 27.0-32.0 [facility] Work Phone: Nucleated RBC/100 WBC (Bld) [Ratio] 0 % 0-5 [facility] Work Phone: MCHC Auto (RBC) [Mass/Vol]on 03-16-2022 MCHC (RBC) [Mass/Vol] 31.9 g/dL 32-36 [facility] Work Phone: No Panel Informationon 03-16 Estimated GFR (MDRD) Amer 94 mL/min >60 [facility] Work Phone: Comment on above: GFR Calc Estimated GFR (MDRD) Non-Af Amer 78 mL/min >60 [facility] Work Phone: Comment on above: Non- GFR Calc Platelets bldon 03-16-2022 Platelets (Bld) [#/Vol] 218 10*3/uL 150-450 [facility] Work Phone: Serum or plasma albumin brandan urement (mass/volume)on 03-16-2022 Albumin [Mass/Vol] 3.5 g/dL 3.2-5.0 [facility] Work Phone: Serum or plasma albumin/glob ulin mass ratioon 03-16-2022 Albumin/Globulin [Mass ratio] 1.0 {ratio} 0.9-2.4 [facility] Work Phone: Serum or plasma calcium brandan urement (mass/volume)on 03-16-2022 Calcium [Mass/Vol] 8.9 mg/dL 8.5-10.1 [facility] Work Phone: Serum or plasma creatinine m easurement (mass/volume)on 03-16-2022 Creatinine [Mass/Vol] 0.76 mg/dL 0.55-1.02 [facility] Work Phone: Comment on above: The validity of the calculated GFR & GFRAA in patients over 70 years has not been determined. Clinical correlation is essential. Serum or plasma urea nitroge n measurement (mass/volume)on 03-16-2022 Urea nitrogen [Mass/Vol] 19 mg/dL 7-18 [facility] Work Phone: Thin prep Papanicolaou smear with manual screeningon 03-16-2022 Thin prep Papanicolaou smear with manual screening 13 U/L 15-37 [facility] Work Phone: Thin prep Papanicolaou smear with manual screening 5 5-15 [facility] Work Phone: Thin prep Papanicolaou smear with manual screening 181 U/L 84-246 [facility] Work Phone: Culture, urineon 01-09-2022 Bacteria identified Cx Nom (U) Presumptive E. coli [facility] Work Phone: CONVERTED SURGICAL PATHOLOGY on 12-12-2021 CONVERTED COMPLETE REPORT Specimen #: [id number]* Submitting Physician: RAND CALZADA D.O. FINAL DIAGNOSIS 15 slides received from [place], [place] labeled [id number] from procedure dated 10/27/2021. [...] marked nuclear pleomorphism consistent with a provisional [place] grade 3. Immunohistochemical stains received for review [...] 12/08/2021 Submitted by: RAND CALZADA D.O. Location: [facility] Diagnostic interpretation performed at [facility], [address] [place] [address]. 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 Immunohistochemical stains received for review [...] as a focus suspicious for extranodal extension. [facility] CONVERTED ORDERING PROVIDER Ordering Provider: RAND CALZADA [facility] CONVERTED SPECIMENS 15 SLIDES ([id number]) [facility] SURGICAL PATHOLOGYon 022 [employer] Specimen #: [id number]* Submitting Physician: RAND CALZADA D.O. FINAL DIAGNOSIS 15 slides received from [facility], [place], [place] labeled [id number] from procedure dated 10/27/2021. [...] 12/08/2021 Submitted by: RAND CALZADA D.O. Location: [facility] Diagnostic interpretation performed at [facility], [address] [place] [address]. CLIA Number: [id number] [facility] DBT Breast - bilateral diagn ostic for implanton 12-08-2021 * * *Final Report* * * DATE OF EXAM: Dec 08 2021 11:44AM SSW 0627 - [facility] DIAG W TAVON RICH / PROCEDURE REASON: multiple diagnoses * * * * Physician Interpretation * * * * RESULT: #[id number] - [facility] DIAG W TAVON RICH #[id number] - [facility] BREAST [facility] BILATERAL DIGITAL DIAGNOSTIC MAMMOGRAM TOMOSYNTHESIS WITH CAD: [...] in either breast. DIVISION OF RADIOLOGY Provider, [facility] - 12/08/2021 * * *Final Report* * * DATE OF EXAM: Dec 08 2021 11:44AM SSW 0627 - [facility] SARA Rhoades TAVON RICH / PROCEDURE REASON: multiple diagnoses * * * * Physician Interpretation * * * * RESULT: #[id number] - [facility] SARA W TAVON RICH #[id number] - [facility] US BREAST LTD LT BILATERAL DIGITAL DIAGNOSTIC [...] Health, Family Medicine, and Medical/Surgical Oncology, the [facility] has carefully reviewed the data and [...] with annual screenin (more content not included)... [facility] Radiology Study observation (narrative) [facility] No Panel InformationOrdered By: Ccf Provider on 12-08-2021 [facility] US Breast - left limitedon 0 12-08-2021 * * *Final Report* * * DATE OF EXAM: Dec 08 2021 11:44AM SSW 0593 - [facility] [employer] BREAST LTD LT / PROCEDURE REASON: multiple diagnoses * * * * Physician Interpretation * * * * RESULT: #[id number] - [facility] DIAG W TAVON RICH #[id number] - [facility] US BREAST LTD LT BILATERAL DIGITAL DIAGNOSTIC [...] in either breast. DIVISION OF RADIOLOGY Provider, [facility] - 12/08/2021 * * *Final Report* * * DATE OF EXAM: Dec 08 2021 11:44AM SSW 0593 - [employer] BREAST Sitrion LT / PROCEDURE REASON: multiple diagnoses * * * * Physician Interpretation * * * * RESULT: #[id number] - [facility] DIAG W TAVON RICH #[id number] - [facility] [employer] BREAST LTD BILATERAL DIGITAL DIAGNOSTIC MAMMOGRAM TOMOSYNTHESIS WITH CAD: [...] Health, Family Medicine, and Medical/Surgical Oncology, the [facility] has carefully reviewed the data and [...] with annual screeni (more content not included)... [facility] Radiology Study observation (narrative) [facility] Absolute lymphocyte counton 11-02-2021 Lymphocytes Auto (Unsp spec) [#/Vol] 2.42 10*3/uL 0.83-4.51 [facility] Work Phone: Basophil percentageon 2021 Basophils/100 WBC (Bld) 0.7 % 0-1 [facility] Work Phone: Bilirubin [Mass/Vol] 0.40 mg/dL 0.20-1.00 [facility] Work Phone: Comment on above: For patients on eltr ombopag therapy, use of [employer] [place] TBIL is not recommended. Chloride [Moles/Vol] 107 mmol/L 98-107 [facility] Work Phone: Eosinophils/100 WBC (Bld) 1.9 % 0-5 [facility] Work Phone: Glucose [Mass/Vol] 105 mg/dL 74-106 [facility] Work Phone: Comment on above: Fasting Glucose resu lt from 100 to 125 mg/dL suggests IMPAIRED HOMEOSTASIS per A.D.A. criteria. Neutrophils (Bld) [#/Vol] 3.8 10*3/uL 2.0-7.7 [facility] Work Phone: Neutrophils/100 WBC (Bld) 54.4 % 47-70 [facility] Work Phone: Potassium [Moles/Vol] 4.7 mmol/L 3.5-5.1 [facility] Work Phone: Protein [Mass/Vol] 7.0 g/dL 6.4-8.2 [facility] Work Phone: Sodium [Moles/Vol] 141 mmol/L 136-145 [facility] Work Phone: WBC (Bld) [#/Vol] 6.9 10*3/uL 4.4-11.0 [facility] Work Phone: Blood erythrocytes count (nu mber/volume)on 11-02-2021 RBC (Bld) [#/Vol] 4.15 10*6/uL 4.2-5.4 [facility] Work Phone: Blood hemoglobin measurement (mass/volume)on 11-02-2021 Hemoglobin (Bld) [Mass/Vol] 12.8 g/dL 12.0-15.0 [facility] Work Phone: [phone] Blood lymphocytes/100 leukoc yteson 11-02-2021 Lymphocytes/100 WBC (Bld) 35.1 % 19-41 [facility] Work Phone: Blood monocytes/100 leukocyt eson 11-02-2021 Monocytes/100 WBC (Bld) 7.5 % 0-10 [facility] Work Phone: Blood platelet mean volumeon 11-02-2021 Platelet mean volume (Bld) [Entitic vol] 8.3 fL 6.2-12.0 [facility] Work Phone: Determination of erythrocyte mean corpuscular volume (MCV)on 11-02-2021 MCV (RBC) [Entitic vol] 97.3 fL 81-99 [facility] Work Phone: Hematocrit Auto (Bld) [Volum e fraction]on 11-02-2021 Hematocrit (Bld) [Volume fraction] 40.4 % 37-47 [facility] Work Phone: Laboratory - Chemistry and C hemistry - challengeon 11-02-2021 ALP [Catalytic activity/Vol] 73 U/L 45-117 [facility] Work Phone: ALT [Catalytic activity/Vol] 19 U/L 13-56 [facility] Work Phone: CO2 [Moles/Vol] 29.0 mmol/L 21.0-32.0 [facility] Work Phone: Globulin (S) [Mass/Vol] 3.5 g/dL 2.2-4.2 [facility] Work Phone: Urea nitrogen/Creatinine [Mass ratio] 26.8 mg/mg 10-20 [facility] Work Phone: Laboratory - Hematology and Cell countson 11-02-2021 Erythrocyte distribution width (RBC) [Entitic vol] 47.5 fL 35.1-43.9 [facility] Work Phone: Erythrocyte distribution width (RBC) [Ratio] 13.2 % 11.6-14.6 [facility] Work Phone: Immature granulocytes/100 WBC (Bld) 0.400 % 0.0-0.9 [facility] Work Phone: Comment on above: IG% - Immature Granu locytes (promyelocytes, myelocytes and metamyelocytes) > 1% indicates that a LEFT SHIFT is Present. MCH (RBC) [Entitic mass] 30.8 pg 27.0-32.0 [facility] Work Phone: Nucleated RBC/100 WBC (Bld) [Ratio] 0 % 0-5 [facility] Work Phone: MCHC Auto (RBC) [Mass/Vol]on 11-02-2021 MCHC (RBC) [Mass/Vol] 31.7 g/dL 32-36 [facility] Work [facility]: No Panel Informationon 01-19 -2022 Estimated GFR (MDRD) Amer 103 mL/min >60 [facility] Work Phone: Comment on above: GFR Calc Estimated GFR (MDRD) Non-Af Amer 85 mL/min >60 [facility] Work Phone: Comment on above: Non- GFR Calc Platelets bldon 11-02-2021 Platelets (Bld) [#/Vol] 248 10*3/uL 150-450 [facility] Work Phone: Serum or plasma albumin brandan urement (mass/volume)on 11-02-2021 Albumin [Mass/Vol] 3.5 g/dL 3.2-5.0 [facility] Work Phone: Serum or plasma albumin/glob ulin mass ratioon 11-02-2021 Albumin/Globulin [Mass ratio] 1.0 {ratio} 0.9-2.4 [facility] Work Phone: Serum or plasma calcium brandan urement (mass/volume)on 11-02-2021 Calcium [Mass/Vol] 9.1 mg/dL 8.5-10.1 [facility] Work Phone: Serum or plasma creatinine m easurement (mass/volume)on 11-02-2021 Creatinine [Mass/Vol] 0.71 mg/dL 0.55-1.02 [facility] Work Phone: Comment on above: The validity of the calculated GFR & GFRAA in patients over 70 years has not been determined. Clinical correlation is essential. Serum or plasma urea nitroge n measurement (mass/volume)on 11-02-2021 Urea nitrogen [Mass/Vol] 19 mg/dL 7-18 [facility] Work Phone: Thin prep Papanicolaou smear with manual screeningon 11-02-2021 Thin prep Papanicolaou smear with manual screening 15 U/L 15-37 [facility] Work Phone: Thin prep Papanicolaou smear with manual screening 5 5-15 [facility] Work Phone: Thin prep Papanicolaou smear with manual screening 183 U/L 84-246 [facility] Work Phone: .Auto Diffon 12-07-2020 Ammonia (P) [Mass/Vol] 0.50 10 3/mcL Normal 0.09-1.40 [facility] ([place]) Comment on above: Performed By: #### C BC, ADIFF, ANEU, TROPHS, CMP, PBNP, GFR #### [address] [address] Basophils (Bld) [#/Vol] 0.10 10 3/mcL Normal 0.00-0.27 [facility] ([place]) Comment on above: Performed By: #### C BC, ADIFF, ANEU, TROPHS, CMP, PBNP, GFR #### [address] [address] Basophils/100 WBC (Bld) 0.6 % Normal 0.0-2.5 [facility] ([place]) Comment on above: Performed By: #### C BC, ADIFF, ANEU, TROPHS, CMP, PBNP, GFR #### [address] [address] Eosinophils (Bld) [#/Vol] 0.10 10 3/mcL Normal 0.00-0.65 [facility] ([place]) Comment on above: Performed By: #### C BC, ADIFF, ANEU, TROPHS, CMP, PBNP, GFR #### [address] [address] Eosinophils/100 WBC (Bld) 1.1 % Normal 0.0-6.0 [facility] ([place]) Comment on above: Performed By: #### C BC, ADIFF, ANEU, TROPHS, CMP, PBNP, GFR #### [address] [address] Lymphocytes (Bld) [#/Vol] 1.30 10 3/mcL Normal 0.90-4.32 [facility] ([place]) Comment on above: Performed By: #### C BC, ADIFF, ANEU, TROPHS, CMP, PBNP, GFR #### [address] [address] Lymphocytes/100 WBC (Bld) 14.7 % Low 20.0-40.0 [facility] ([place]) Comment on above: Performed By: #### C BC, ADIFF, ANEU, TROPHS, CMP, PBNP, GFR #### [address] [address] Monocytes/100 WBC (Bld) 5.8 % Normal 2.0-13.0 [facility] ([place] Comment on above: Performed By: #### C BC, ADIFF, ANEU, TROPHS, CMP, PBNP, GFR #### [address] [address] Neutrophils/100 WBC (Bld) 77.8 % High 50.0-75.0 [facility] ([place] Comment on above: Performed By: #### C BC, ADIFF, ANEU, TROPHS, CMP, PBNP, GFR #### [address] [address] .GFRon 12-07-2020 GFR >60 Normal [facility] ([place] Comment on above: Result Comment: GFR Population [...] ADIFF, ANEU, TROPHS, CMP, PBNP, GFR #### [address] [address] GFR Non- >60 Normal [facility] ([place] Comment on above: Result Comment: GFR Population [...] ADIFF, ANEU, TROPHS, CMP, PBNP, GFR #### [address] [address] .NEUABSon 12-07-2020 Neutrophils (Bld) [#/Vol] 6.70 10 3/mcL Normal 2.25-8.10 [facility] ([place] Comment on above: Performed By: #### C BC, ADIFF, ANEU, TROPHS, CMP, PBNP, GFR #### [place] [address] BMPon 12-07-2020 Calcium [Mass/Vol] 8.7 mg/dL Normal 8.7-10.4 [facility] [place] Comment on above: Result Comment: No te - New Reference Range in effect 20 Performed By: #### C BC, ADIFF, ANEU, TROPHS, CMP, PBNP, GFR #### [place] [address] Chloride [Moles/Vol] 109 mmol/L Normal 98-110 [facility] [place] Comment on above: Performed By: #### C BC, ADIFF, ANEU, TROPHS, CMP, PBNP, GFR #### [place] [address] CO2 [Moles/Vol] 25 mmol/L Normal 22-32 [facility] ([place] Comment on above: Performed By: #### C BC, ADIFF, ANEU, TROPHS, CMP, PBNP, GFR #### [place] [address] Creatinine [Mass/Vol] 0.59 mg/dL Normal 0.50-1.20 [facility] [place] Comment on above: Performed By: #### C BC, ADIFF, ANEU, TROPHS, CMP, PBNP, GFR #### [address] [address] Electrolyte Balance 2.0 mEq/L Low 4.0-15.0 [facility] ([place]) Comment on above: Performed By: #### C BC, ADIFF, ANEU, TROPHS, CMP, PBNP, GFR #### [place] [id number] Glucose [Mass/Vol] 111 mg/dL Normal 82-115 [facility] [place] Comment on above: Performed By: #### C BC, ADIFF, ANEU, TROPHS, CMP, PBNP, GFR #### [address] [address] Potassium [Moles/Vol] 3.5 mmol/L Normal 3.5-5.0 [facility] [place] Comment on above: Performed By: #### C BC, ADIFF, ANEU, TROPHS, CMP, PBNP, GFR #### [place] [id number] Sodium [Moles/Vol] 136 mmol/L Normal 136-145 [facility] [place] Comment on above: Performed By: #### C BC, ADIFF, ANEU, TROPHS, CMP, PBNP, GFR #### [place] [id number] Urea nitrogen [Mass/Vol] 7.0 mg/dL Low 8.0-22.0 [facility] ([place] Comment on above: Performed By: #### C BC, ADIFF, ANEU, TROPHS, CMP, PBNP, GFR #### [address] [address] Urea nitrogen/Creatinine [Mass ratio] 11.9 ratio Normal 10.0-22.0 [facility] ([place] Comment on above: Performed By: #### C BC, ADIFF, ANEU, TROPHS, CMP, PBNP, GFR #### [address] [address] CBCon 12-07-2020 Erythrocyte distribution width (RBC) [Ratio] 17.6 % High 11.5-15.5 [facility] ([place] Comment on above: Performed By: #### C BC, ADIFF, ANEU, TROPHS, CMP, PBNP, GFR #### [place] [address] Hematocrit (Bld) [Volume fraction] 31.5 % Low 34.0-46.0 [facility] ([place] Comment on above: Performed By: #### C BC, ADIFF, ANEU, TROPHS, CMP, PBNP, GFR #### [place] [address] Hemoglobin (Bld) [Mass/Vol] 10.4 G/dL Low 12.0-16.0 [facility] ([place] Comment on above: Performed By: #### C BC, ADIFF, ANEU, TROPHS, CMP, PBNP, GFR #### [place] [address] MCH (RBC) [Entitic mass] 31.3 pg Normal 27.0-33.0 [facility] ([place] Comment on above: Performed By: #### C BC, ADIFF, ANEU, TROPHS, CMP, PBNP, GFR #### [place] [address] MCHC (RBC) [Mass/Vol] 33.2 G/dL Normal 32.0-36.0 [facility] [place] Comment on above: Performed By: #### C BC, ADIFF, ANEU, TROPHS, CMP, PBNP, GFR #### [place] [phone] MCV (RBC) [Entitic vol] 94.2 fL Normal 80.0-99.0 [facility] ([place] Comment on above: Performed By: #### C BC, ADIFF, ANEU, TROPHS, CMP, PBNP, GFR #### [place] [address] Platelet mean volume (Bld) [Entitic vol] 6.5 fL Low 6.6-10.5 [facility] ([place] Comment on above: Performed By: #### C BC, ADIFF, ANEU, TROPHS, CMP, PBNP, GFR #### [place] [address] Platelets (Bld) [#/Vol] 234 10 3/mcL Normal 150-450 [facility] ([place] Comment on above: Performed By: #### C BC, ADIFF, ANEU, TROPHS, CMP, PBNP, GFR #### [place] [address] RBC (Bld) [#/Vol] 3.34 10 6/mcL Low 4.10-5.30 [facility] [place] Comment on above: Performed By: #### C BC, ADIFF, ANEU, TROPHS, CMP, PBNP, GFR #### [place] [address] WBC (Bld) [#/Vol] 8.60 10 3/mcL Normal 4.50-10.80 [facility] [place] Comment on above: Performed By: #### C BC, ADIFF, ANEU, TROPHS, CMP, PBNP, GFR #### [place] [address] MGon 12-07-2020 Magnesium [Mass/Vol] 1.5 mg/dL Low 1.6-2.4 [facility] [place] Comment on above: Performed By: #### C BC, ADIFF, ANEU, TROPHS, CMP, PBNP, GFR #### [place] [address] .Auto Diffon 12-06-2020 Ammonia (P) [Mass/Vol] 0.40 10 3/mcL Normal 0.09-1.40 [facility] ([place] Comment on above: Performed By: #### C BC, ADIFF, ANEU, TROPHS, CMP, PBNP, GFR #### [place] [address] Basophils (Bld) [#/Vol] 0.10 10 3/mcL Normal 0.00-0.27 [facility] ([place] Comment on above: Performed By: #### C BC, ADIFF, ANEU, TROPHS, CMP, PBNP, GFR #### [address] [address] Basophils/100 WBC (Bld) 1.0 % Normal 0.0-2.5 [facility] ([place] Comment on above: Performed By: #### C BC, ADIFF, ANEU, TROPHS, CMP, PBNP, GFR #### [address] [address] Eosinophils (Bld) [#/Vol] 0.10 10 3/mcL Normal 0.00-0.65 [facility] ([place]) Comment on above: Performed By: #### C BC, ADIFF, ANEU, TROPHS, CMP, PBNP, GFR #### [address] [address] Eosinophils/100 WBC (Bld) 2.2 % Normal 0.0-6.0 [facility] ([place] Comment on above: Performed By: #### C BC, ADIFF, ANEU, TROPHS, CMP, PBNP, GFR #### [address] [address] Lymphocytes (Bld) [#/Vol] 1.80 10 3/mcL Normal 0.90-4.32 [facility] ([place]) Comment on above: Performed By: #### C BC, ADIFF, ANEU, TROPHS, CMP, PBNP, GFR #### [address] [address] Lymphocytes/100 WBC (Bld) 33.3 % Normal 20.0-40.0 [facility] ([place]) Comment on above: Performed By: #### C BC, ADIFF, ANEU, TROPHS, CMP, PBNP, GFR #### [address] [address] Monocytes/100 WBC (Bld) 7.0 % Normal 2.0-13.0 [facility] ([place]) Comment on above: Performed By: #### C BC, ADIFF, ANEU, TROPHS, CMP, PBNP, GFR #### [address] [address] Neutrophils/100 WBC (Bld) 56.5 % Normal 50.0-75.0 [facility] ([place] Comment on above: Performed By: #### C BC, ADIFF, ANEU, TROPHS, CMP, PBNP, GFR #### [address] [address] .GFRon 12-06-2020 GFR >60 Normal [facility] ([place] Comment on above: Result Comment: GFR Population [...] ADIFF, ANEU, TROPHS, CMP, PBNP, GFR #### [address] [address] GFR Non- >60 Normal [facility] ([place] Comment on above: Result Comment: GFR Population [...] ADIFF, ANEU, TROPHS, CMP, PBNP, GFR #### [address] [address] .Morphon 12-06-2020 Anisocytosis Ql (Bld) Slight Normal [facility] ([place]) Comment on above: Performed By: #### C BC, ADIFF, ANEU, TROPHS, CMP, PBNP, GFR #### [place] [phone] Ovalocytes Few Normal [facility] ([place] Comment on above: Performed By: #### C BC, ADIFF, ANEU, TROPHS, CMP, PBNP, GFR #### [place] [address] Platelets (Bld) [#/Vol] Normal Normal [facility] ([place] Comment on above: Performed By: #### C BC, ADIFF, ANEU, TROPHS, CMP, PBNP, GFR #### [place] [address] Poik Slight Normal [facility] ([place] Comment on above: Performed By: #### C BC, ADIFF, ANEU, TROPHS, CMP, PBNP, GFR #### [place] [address] .NEUABSon 12-06-2020 Neutrophils (Bld) [#/Vol] 3.10 10 3/mcL Normal 2.25-8.10 [facility] ([place] Comment on above: Performed By: #### C BC, ADIFF, ANEU, TROPHS, CMP, PBNP, GFR #### [place] [address] BMPon 12-06-2020 Calcium [Mass/Vol] 8.6 mg/dL Low 8.7-10.4 [facility] [place] Comment on above: Result Comment: No te - New Reference Range in effect 20 Performed By: #### C BC, ADIFF, ANEU, TROPHS, CMP, PBNP, GFR #### [place] [address] Chloride [Moles/Vol] 109 mmol/L Normal 98-110 [facility] [place] Comment on above: Performed By: #### C BC, ADIFF, ANEU, TROPHS, CMP, PBNP, GFR #### [address] [address] CO2 [Moles/Vol] 26 mmol/L Normal 22-32 [facility] ([place] Comment on above: Performed By: #### C BC, ADIFF, ANEU, TROPHS, CMP, PBNP, GFR #### [address] [address] Creatinine [Mass/Vol] 0.64 mg/dL Normal 0.50-1.20 [facility] [place] Comment on above: Performed By: #### C BC, ADIFF, ANEU, TROPHS, CMP, PBNP, GFR #### [address] [address] Electrolyte Balance 5.0 mEq/L Normal 4.0-15.0 [facility] ([place] Comment on above: Performed By: #### C BC, ADIFF, ANEU, TROPHS, CMP, PBNP, GFR #### [address] [address] Glucose [Mass/Vol] 73 mg/dL Low 82-115 [facility] [place] Comment on above: Performed By: #### C BC, ADIFF, ANEU, TROPHS, CMP, PBNP, GFR #### [address] [address] Potassium [Moles/Vol] 3.8 mmol/L Normal 3.5-5.0 [facility] [place] Comment on above: Performed By: #### C BC, ADIFF, ANEU, TROPHS, CMP, PBNP, GFR #### [address] [address] Sodium [Moles/Vol] 140 mmol/L Normal 136-145 [facility] [place] Comment on above: Performed By: #### C BC, ADIFF, ANEU, TROPHS, CMP, PBNP, GFR #### [address] [address] Urea nitrogen [Mass/Vol] 9.0 mg/dL Normal 8.0-22.0 [facility] ([place] Comment on above: Performed By: #### C BC, ADIFF, ANEU, TROPHS, CMP, PBNP, GFR #### [place] [id number] Urea nitrogen/Creatinine [Mass ratio] 14.1 ratio Normal 10.0-22.0 [facility] ([place] Comment on above: Performed By: #### C BC, ADIFF, ANEU, TROPHS, CMP, PBNP, GFR #### [place] [id number] CBCon 12-06-2020 Erythrocyte distribution width (RBC) [Ratio] 17.6 % High 11.5-15.5 [facility] ([place] Comment on above: Performed By: #### C BC, ADIFF, ANEU, TROPHS, CMP, PBNP, GFR #### [place] [address] Hematocrit (Bld) [Volume fraction] 28.3 % Low 34.0-46.0 [facility] ([place] Comment on above: Performed By: #### C BC, ADIFF, ANEU, TROPHS, CMP, PBNP, GFR #### [place] [phone] Hemoglobin (Bld) [Mass/Vol] 9.3 G/dL Low 12.0-16.0 [facility] ([place] Comment on above: Performed By: #### C BC, ADIFF, ANEU, TROPHS, CMP, PBNP, GFR #### [place] [id number] MCH (RBC) [Entitic mass] 30.6 pg Normal 27.0-33.0 [facility] ([place] Comment on above: Performed By: #### C BC, ADIFF, ANEU, TROPHS, CMP, PBNP, GFR #### [place] [id number] MCHC (RBC) [Mass/Vol] 32.8 G/dL Normal 32.0-36.0 [facility] [place] Comment on above: Performed By: #### C BC, ADIFF, ANEU, TROPHS, CMP, PBNP, GFR #### [place] [id number] MCV (RBC) [Entitic vol] 93.3 fL Normal 80.0-99.0 [facility] ([place] Comment on above: Performed By: #### C BC, ADIFF, ANEU, TROPHS, CMP, PBNP, GFR #### [place] [id number] Platelet mean volume (Bld) [Entitic vol] 6.5 fL Low 6.6-10.5 [facility] ([place] Comment on above: Performed By: #### C BC, ADIFF, ANEU, TROPHS, CMP, PBNP, GFR #### [place] [id number] Platelets (Bld) [#/Vol] 207 10 3/mcL Normal 150-450 [facility] ([place] Comment on above: Performed By: #### C BC, ADIFF, ANEU, TROPHS, CMP, PBNP, GFR #### [place] [id number] RBC (Bld) [#/Vol] 3.03 10 6/mcL Low 4.10-5.30 [facility] [place] Comment on above: Performed By: #### C BC, ADIFF, ANEU, TROPHS, CMP, PBNP, GFR #### [place] [id number] WBC (Bld) [#/Vol] 5.40 10 3/mcL Normal 4.50-10.80 [facility] [place] Comment on above: Performed By: #### C BC, ADIFF, ANEU, TROPHS, CMP, PBNP, GFR #### [address] [address] [id number] 12-06-2020 COVID-19 Int Normal [facility] ([place] Comment on above: Result Comment: This test is being used under the FDA EUA procedure. This assay has been validated in the [facility] for use with nasopharyngeal and oropharyngeal specimens in [facility] or [facility]. If a non-validated specimen or [...] in consultation with public health authorities. The [employer] SARS-CoV-2 Reagents for [employer] System is a real-time RT-PCR test intended for the qualitative detection of nucleic acid from the SARS-CoV-2 in nasopharyngeal and oropharyngeal swab samples. COVID-19 Int Performed By: #### C BC, ADIFF, ANEU, TROPHS, CMP, PBNP, GFR #### [address] [address] COVID-19 Result Negative Normal Negative [facility] ([place] Comment on above: Performed By: #### C BC, ADIFF, ANEU, TROPHS, CMP, PBNP, GFR #### [place] [address] COVID-19 Source Nasopharyngeal Normal [facility] ([place] Comment on above: Performed By: #### C BC, ADIFF, ANEU, TROPHS, CMP, PBNP, GFR #### [address] [address] Date of Onset [id number] [facility] ([place] Comment on above: Performed By: #### C BC, ADIFF, ANEU, TROPHS, CMP, PBNP, GFR #### [address] [address] Employed in Healthcare No Normal [facility] ([place] Comment on above: Performed By: #### C BC, ADIFF, ANEU, TROPHS, CMP, PBNP, GFR #### [address] [address] First Test Unknown Normal [facility] ([place] Comment on above: Performed By: #### C BC, ADIFF, ANEU, TROPHS, CMP, PBNP, GFR #### [address] [address] Hospitalized Yes [facility] ([place] Comment on above: Performed By: #### C BC, ADIFF, ANEU, TROPHS, CMP, PBNP, GFR #### [address] [address] ICU No [facility] ([place] Comment on above: Performed By: #### C BC, ADIFF, ANEU, TROPHS, CMP, PBNP, GFR #### [place] [address] Not [facility] ([place] Comment on above: Performed By: #### C BC, ADIFF, ANEU, TROPHS, CMP, PBNP, GFR #### [place] [address] Resides in Congregate Care Setting Yes [facility] ([place] Comment on above: Performed By: #### C BC, ADIFF, ANEU, TROPHS, CMP, PBNP, GFR #### [place] [address] Symptomatic as Defined by CDC No [facility] ([place] Comment on above: Performed By: #### C BC, ADIFF, ANEU, TROPHS, CMP, PBNP, GFR #### [place] [address] XR SMALL BOWEL W/ SERIAL ARTHUR MSon [...] Date: 12/06/2020 4:35:05 PM Ordering Provider:Viviana Elliott [facility] ([place] XR UPPER GIon 12-06-2020 XR UPPER GI [...] Date: 12/06/2020 11:57:18 AM Ordering Provider:Viviana Elliott [facility] ([place] .GFRon 12-05-2020 GFR >60 [facility] ([place] Comment on above: Result Comment: GFR Population [...] ADIFF, ANEU, TROPHS, CMP, PBNP, GFR #### [address] [address] GFR Non- >60 Normal [facility] ([place] Comment on above: Result Comment: GFR Population [...] ADIFF, ANEU, TROPHS, CMP, PBNP, GFR #### [address] [address] BMPon 12-05-2020 Calcium [Mass/Vol] 8.2 mg/dL Low 8.7-10.4 [facility] [place] Comment on above: Result Comment: No te - New Reference Range in effect 20 Performed By: #### C BC, ADIFF, ANEU, TROPHS, CMP, PBNP, GFR #### [address] [address] Chloride [Moles/Vol] 108 mmol/L Normal 98-110 [facility] [place] Comment on above: Performed By: #### C BC, ADIFF, ANEU, TROPHS, CMP, PBNP, GFR #### [address] [address] CO2 [Moles/Vol] 25 mmol/L Normal 22-32 [facility] ([place] Comment on above: Performed By: #### C BC, ADIFF, ANEU, TROPHS, CMP, PBNP, GFR #### [address] [address] Creatinine [Mass/Vol] 0.58 mg/dL Normal 0.50-1.20 [facility] [place] Comment on above: Performed By: #### C BC, ADIFF, ANEU, TROPHS, CMP, PBNP, GFR #### [address] [address] Electrolyte Balance 6.0 mEq/L Normal 4.0-15.0 [facility] ([place] Comment on above: Performed By: #### C BC, ADIFF, ANEU, TROPHS, CMP, PBNP, GFR #### [address] [address] Glucose [Mass/Vol] 63 mg/dL Low 82-115 [facility] [place] Comment on above: Performed By: #### C BC, ADIFF, ANEU, TROPHS, CMP, PBNP, GFR #### [address] [address] Potassium [Moles/Vol] 3.4 mmol/L Low 3.5-5.0 [facility] [place] Comment on above: Performed By: #### C BC, ADIFF, ANEU, TROPHS, CMP, PBNP, GFR #### [address] [address] Sodium [Moles/Vol] 139 mmol/L Normal 136-145 [facility] [place] Comment on above: Performed By: #### C BC, ADIFF, ANEU, TROPHS, CMP, PBNP, GFR #### [address] [address] Urea nitrogen [Mass/Vol] 12.0 mg/dL Normal 8.0-22.0 [facility] ([place] Comment on above: Performed By: #### C BC, ADIFF, ANEU, TROPHS, CMP, PBNP, GFR #### [address] [address] Urea nitrogen/Creatinine [Mass ratio] 20.7 ratio Normal 10.0-22.0 [facility] ([place] Comment on above: Performed By: #### C BC, ADIFF, ANEU, TROPHS, CMP, PBNP, GFR #### [address] [address] .GFRon 12-03-2020 GFR >60 Normal [facility] [place] Comment on above: Result Comment: GFR Population [...] ADIFF, ANEU, TROPHS, CMP, PBNP, GFR #### [address] [address] GFR Non- >60 Normal [facility] ([place] Comment on above: Result Comment: GFR Population [...] ADIFF, ANEU, TROPHS, CMP, PBNP, GFR #### [address] [address] .Manual Diffon 12-03-2020 Basophil %, Manual 0.0 % Normal 0.0-2.5 [facility] [place] Comment on above: Performed By: #### C BC, ADIFF, ANEU, TROPHS, CMP, PBNP, GFR #### [address] [address] Basophil, Abs Manual 0.00 10 3/mcL Normal 0.00-0.27 [facility] ([place] Comment on above: Performed By: #### C BC, ADIFF, ANEU, TROPHS, CMP, PBNP, GFR #### [place] [address] Cells Counted 100 Normal [facility] ([place] Comment on above: Performed By: #### C BC, ADIFF, ANEU, TROPHS, CMP, PBNP, GFR #### [place] [address] Eosinophil %, Manual 1.0 % Normal 0.0-6.0 [facility] [place] Comment on above: Performed By: #### C BC, ADIFF, ANEU, TROPHS, CMP, PBNP, GFR #### [place] [id number] Eosinophil, Abs Manual 0.07 10 3/mcL Normal 0.00-0.65 [facility] ([place] Comment on above: Performed By: #### C BC, ADIFF, ANEU, TROPHS, CMP, PBNP, GFR #### [place] [address] Lymphocyte %, Manual 28.0 % Normal 20.0-40.0 [facility] [place] Comment on above: Performed By: #### C BC, ADIFF, ANEU, TROPHS, CMP, PBNP, GFR #### [place] [address] Lymphocyte, Abs Manual 2.10 10 3/mcL Normal 0.90-4.32 [facility] ([place] Comment on above: Performed By: #### C BC, ADIFF, ANEU, TROPHS, CMP, PBNP, GFR #### [place] [address] Monocyte %, Manual 6.0 % Normal 2.0-13.0 [facility] [place] Comment on above: Performed By: #### C BC, ADIFF, ANEU, TROPHS, CMP, PBNP, GFR #### [place] [id number] Monocyte, Abs Manual 0.45 10 3/mcL Normal 0.09-1.40 [facility] ([place]) Comment on above: Performed By: #### C BC, ADIFF, ANEU, TROPHS, CMP, PBNP, GFR #### [place] [address] Neutrophil %, Manual 65.0 % Normal 50.0-75.0 [facility] [place] Comment on above: Performed By: #### C BC, ADIFF, ANEU, TROPHS, CMP, PBNP, GFR #### [place] [address] Neutrophil, Abs Manual 4.88 10 3/mcL Normal 2.25-8.10 [facility] ([place] Comment on above: Performed By: #### C BC, ADIFF, ANEU, TROPHS, CMP, PBNP, GFR #### [place] [address] Nucleated RBC (Bld) [#/Vol] 1.0 /100 WBC Normal [facility] ([place]) Comment on above: Performed By: #### C BC, ADIFF, ANEU, TROPHS, CMP, PBNP, GFR #### [address] [id number] .[place] 12-03-2020 Anisocytosis Ql (Bld) Slight [facility] ([place]) Comment on above: Performed By: #### C BC, ADIFF, ANEU, TROPHS, CMP, PBNP, GFR #### [place] [address] Ovalocytes Few Normal [facility] ([place]) Comment on above: Performed By: #### C BC, ADIFF, ANEU, TROPHS, CMP, PBNP, GFR #### [address] [address] Platelets (Bld) [#/Vol] Normal Normal [facility] ([place]) Comment on above: Performed By: #### C BC, ADIFF, ANEU, TROPHS, CMP, PBNP, GFR #### [address] [address] [place] Slight Normal [facility] ([place]) Comment on above: Performed By: #### C BC, ADIFF, ANEU, TROPHS, CMP, PBNP, GFR #### [address] [address] [place] 12-03-2020 Calcium [Mass/Vol] 8.9 mg/dL Normal 8.7-10.4 [facility] ([place]) Comment on above: Order Comment: Routi ne for 0501 the morning of patient admission. Result Comment: No te - New Reference Range in effect 20 Performed By: #### C BC, ADIFF, ANEU, TROPHS, CMP, PBNP, GFR #### [address] [address] Chloride [Moles/Vol] 112 mmol/L High 98-110 [facility] ([place]) Comment on above: Order Comment: Routi ne for 0501 the morning of patient admission. Performed By: #### C BC, ADIFF, ANEU, TROPHS, CMP, PBNP, GFR #### [address] [address] CO2 [Moles/Vol] 22 mmol/L Normal 22-32 [facility] ([place]) Comment on above: Order Comment: Routi ne for 0501 the morning of patient admission. Performed By: #### C BC, ADIFF, ANEU, TROPHS, CMP, PBNP, GFR #### [address] [address] Creatinine [Mass/Vol] 0.59 mg/dL Normal 0.50-1.20 [facility] ([place]) Comment on above: Order Comment: Routi ne for 0501 the morning of patient admission. Performed By: #### C BC, ADIFF, ANEU, TROPHS, CMP, PBNP, GFR #### [address] [address] Electrolyte Balance 8.0 mEq/L Normal 4.0-15.0 [facility] ([place]) Comment on above: Order Comment: Routi ne for 0501 the morning of patient admission. Performed By: #### C BC, ADIFF, ANEU, TROPHS, CMP, PBNP, GFR #### [place] [phone] Glucose [Mass/Vol] 77 mg/dL Low 82-115 [facility] ([place]) Comment on above: Order Comment: Routi ne for 0501 the morning of patient admission. Performed By: #### C BC, ADIFF, ANEU, TROPHS, CMP, PBNP, GFR #### [place] [phone] Potassium [Moles/Vol] 4.1 mmol/L Normal 3.5-5.0 [facility] ([place]) Comment on above: Order Comment: Routi ne for 0501 the morning of patient admission. Result Comment: Spec imen slightly hemolyzed. Performed By: #### C BC, ADIFF, ANEU, TROPHS, CMP, PBNP, GFR #### [place] [phone] Sodium [Moles/Vol] 142 mmol/L Normal 136-145 [facility] ([place]) Comment on above: Order Comment: Routi ne for 0501 the morning of patient admission. Performed By: #### C BC, ADIFF, ANEU, TROPHS, CMP, PBNP, GFR #### [place] [phone] Urea nitrogen [Mass/Vol] 18.0 mg/dL Normal 8.0-22.0 [facility] ([place]) Comment on above: Order Comment: Routi ne for 0501 the morning of patient admission. Performed By: #### C BC, ADIFF, ANEU, TROPHS, CMP, PBNP, GFR #### [place] [phone] Urea nitrogen/Creatinine [Mass ratio] 30.5 ratio High 10.0-22.0 [facility] ([place]) Comment on above: Order Comment: Routi ne for 0501 the morning of patient admission. Performed By: #### C BC, ADIFF, ANEU, TROPHS, CMP, PBNP, GFR #### [address] [address] CBCon 12-03-2020 Erythrocyte distribution width (RBC) [Ratio] 17.3 % High 11.5-15.5 [facility] ([place]) Comment on above: Order Comment: Routi ne for 0501 the morning of patient admission. Performed By: #### C BC, ADIFF, ANEU, TROPHS, CMP, PBNP, GFR #### [place] [phone] Hematocrit (Bld) [Volume fraction] 33.1 % Low 34.0-46.0 [facility] ([place]) Comment on above: Order Comment: Routi ne for 0501 the morning of patient admission. Performed By: #### C BC, ADIFF, ANEU, TROPHS, CMP, PBNP, GFR #### [place] [address] Hemoglobin (Bld) [Mass/Vol] 11.1 G/dL Low 12.0-16.0 [facility] ([place]) Comment on above: Order Comment: Routi ne for 0501 the morning of patient admission. Performed By: #### C BC, ADIFF, ANEU, TROPHS, CMP, PBNP, GFR #### [place] [phone] MCH (RBC) [Entitic mass] 31.4 pg Normal 27.0-33.0 [facility] ([place] Comment on above: Order Comment: Routi ne for 0501 the morning of patient admission. Performed By: #### C BC, ADIFF, ANEU, TROPHS, CMP, PBNP, GFR #### [place] [phone] MCHC (RBC) [Mass/Vol] 33.6 G/dL Normal 32.0-36.0 [facility] [place] Comment on above: Order Comment: Routi ne for 0501 the morning of patient admission. Performed By: #### C BC, ADIFF, ANEU, TROPHS, CMP, PBNP, GFR #### [address] [address] MCV (RBC) [Entitic vol] 93.5 fL Normal 80.0-99.0 [facility] ([place]) Comment on above: Order Comment: Routi ne for 0501 the morning of patient admission. Performed By: #### C BC, ADIFF, ANEU, TROPHS, CMP, PBNP, GFR #### [address] [address] Platelet mean volume (Bld) [Entitic vol] 6.4 fL Low 6.6-10.5 [facility] ([place]) Comment on above: Order Comment: Routi ne for 0501 the morning of patient admission. Performed By: #### C BC, ADIFF, ANEU, TROPHS, CMP, PBNP, GFR #### [address] [address] Platelets (Bld) [#/Vol] 242 10 3/mcL Normal 150-450 [facility] ([place]) Comment on above: Order Comment: Routi ne for 0501 the morning of patient admission. Performed By: #### C BC, ADIFF, ANEU, TROPHS, CMP, PBNP, GFR #### [address] [address] RBC (Bld) [#/Vol] 3.54 10 6/mcL Low 4.10-5.30 [facility] ([place] Comment on above: Order Comment: Routi ne for 0501 the morning of patient admission. Performed By: #### C BC, ADIFF, ANEU, TROPHS, CMP, PBNP, GFR #### [address] [address] WBC (Bld) [#/Vol] 7.50 10 3/mcL Normal 4.50-10.80 [facility] [place] Comment on above: Order Comment: Routi ne for 0501 the morning of patient admission. Performed By: #### C BC, ADIFF, ANEU, TROPHS, CMP, PBNP, GFR #### [address] [address] .GFRon 12-02-2020 GFR >60 Normal [facility] ([place] Comment on above: Result Comment: GFR Population [...] square meters Performed By: #### C BC, ROMEROIFF, ANEU, TROPHS, CMP, PBNP, GFR #### [address] [address] GFR Non- >60 Normal [facility] ([place] Comment on above: Result Comment: GFR Population [...] ADIFF, ANEU, TROPHS, CMP, PBNP, GFR #### [address] [address] BMPon 12-02-2020 Potassium [Moles/Vol] 4.6 mmol/L Normal 3.5-5.0 [facility] [place] Comment [place]: Order Comment: Needs recollected - hemolyzed Performed By: #### C BC, ADIFF, ANEU, TROPHS, CMP, PBNP, GFR #### [address] [address] Calcium [Mass/Vol] 9.1 mg/dL Normal 8.7-10.4 [facility] [place] Comment on above: Order Comment: Needs recollected - hemolyzed Result Comment: No te - New Reference Range in effect 20 Performed By: #### C BC, ADIFF, ANEU, TROPHS, CMP, PBNP, GFR #### [address] [address] Chloride [Moles/Vol] 111 mmol/L High 98-110 [facility] [place] Comment on above: Order Comment: Needs recollected - hemolyzed Performed By: #### C BC, ADIFF, ANEU, TROPHS, CMP, PBNP, GFR #### [address] [address] CO2 [Moles/Vol] 21 mmol/L Low 22-32 [facility] ([place] Comment on above: Order Comment: Needs recollected - hemolyzed Performed By: #### C BC, ADIFF, ANEU, TROPHS, CMP, PBNP, GFR #### [address] [address] Creatinine [Mass/Vol] 0.62 mg/dL Normal 0.50-1.20 [facility] [place] Comment on above: Order Comment: Needs recollected - hemolyzed Performed By: #### C BC, ADIFF, ANEU, TROPHS, CMP, PBNP, GFR #### [address] [address] Electrolyte Balance 11.0 mEq/L Normal 4.0-15.0 [facility] ([place] Comment on above: Order Comment: Needs recollected - hemolyzed Performed By: #### C BC, ADIFF, ANEU, TROPHS, CMP, PBNP, GFR #### [address] [address] Glucose [Mass/Vol] 83 mg/dL Normal 82-115 [facility] [place] Comment on above: Order Comment: Needs recollected - hemolyzed Performed By: #### C BC, ADIFF, ANEU, TROPHS, CMP, PBNP, GFR #### [address] [address] Sodium [Moles/Vol] 143 mmol/L Normal 136-145 [facility] [place] Comment on above: Order Comment: Needs recollected - hemolyzed Performed By: #### C BC, ADIFF, ANEU, TROPHS, CMP, PBNP, GFR #### [address] [address] Urea nitrogen [Mass/Vol] 19.0 mg/dL Normal 8.0-22.0 [facility] ([place] Comment on above: Order Comment: Needs recollected - hemolyzed Performed By: #### C BC, ADIFF, ANEU, TROPHS, CMP, PBNP, GFR #### [address] [address] Urea nitrogen/Creatinine [Mass ratio] 30.6 ratio High 10.0-22.0 [facility] ([place] Comment on above: Order Comment: Needs recollected - hemolyzed Performed By: #### C BC, ADIFF, ANEU, TROPHS, CMP, PBNP, GFR #### [address] [address] [address] ABD/PELVIS W/ IV CONTRAST ONLYon 12-02-2020 [...] Date: 12/01/2020 11:39:07 PM Ordering Provider:Deep Cornejo [facility] ([place]) CT HEAD OR BRAIN W/O ANNIA Abrams 12-02-2020 CT HEAD OR BRAIN W/O CONTRAST [...] Sign Date: 12/01/2020 11:16:36 PM Ordering Provider:Deep Guzman [facility] ([place]) MGon 12-02-2020 Magnesium [Mass/Vol] 1.8 mg/dL Normal 1.6-2.4 [facility] [place] Comment on above: Performed By: #### C BC, ADIFF, ANEU, TROPHS, CMP, PBNP, GFR #### [place] [address] TROPHSon 12-02-2020 Troponin I High Sensitivity 14.15 ng/L Normal 0.00-34.00 [facility] ([place] Comment on above: Performed By: #### C BC, ADIFF, ANEU, TROPHS, CMP, PBNP, GFR #### [place] [address] Troponin I High Sensitivity 18.06 ng/L Normal 0.00-34.00 [facility] ([place] Comment on above: Performed By: #### T ROPHS #### [place] [address] UAon 12-02-2020 Color (U) Yellow Normal [facility] ([place] Comment on above: Performed By: #### C BC, ADIFF, ANEU, TROPHS, CMP, PBNP, GFR #### [place] [address] Glucose (U) [Mass/Vol] Negative Normal Negative [facility] ([place]) Comment on above: Performed By: #### C BC, ADIFF, ANEU, TROPHS, CMP, PBNP, GFR #### [place] [address] Ketones Ql (U) 15 mg/dL Abnormal Neg-Trace [facility] ([place] Comment on above: Performed By: #### C BC, ADIFF, ANEU, TROPHS, CMP, PBNP, GFR #### [place] [address] UA Appear Cloudy Abnormal Clear [facility] ([place] Comment on above: Performed By: #### C BC, ADIFF, ANEU, TROPHS, CMP, PBNP, GFR #### [address] [address] UA Blood Moderate Abnormal Neg-Trace [facility] ([place] Comment on above: Performed By: #### C BC, ADIFF, ANEU, TROPHS, CMP, PBNP, GFR #### [address] [address] UA Leuk Est Trace Normal Negative [facility] ([place] Comment on above: Performed By: #### C BC, ADIFF, ANEU, TROPHS, CMP, PBNP, GFR #### [address] [address] UA Nitrite Positive Abnormal Negative [facility] ([place] Comment on above: Performed By: #### C BC, ADIFF, ANEU, TROPHS, CMP, PBNP, GFR #### [address] [address] UA pH 6.0 Normal 5.0 - 8.0 [facility] ([place] Comment on above: Performed By: #### C BC, ADIFF, ANEU, TROPHS, CMP, PBNP, GFR #### [address] [address] UA Protein 30 mg/dL Normal Negative [facility] ([place] Comment on above: Performed By: #### C BC, ADIFF, ANEU, TROPHS, CMP, PBNP, GFR #### [address] [address] UA Spec Grav >=1.030 Abnormal 1.006-1.029 [facility] ([place] Comment on above: Performed By: #### C BC, ADIFF, ANEU, TROPHS, CMP, PBNP, GFR #### [address] [address] UA Specimen Type Clean Catch Normal [facility] ([place] Comment on above: Performed By: #### C BC, ADIFF, ANEU, TROPHS, CMP, PBNP, GFR #### [address] [address] UA Urobilinogen 1.0 E.U./dL Normal 0.2-1.0 [facility] ([place] Comment on above: Performed By: #### C BC, ADIFF, ANEU, TROPHS, CMP, PBNP, GFR #### [address] [address] Urobilinogen Qn (U) Negative Normal Neg-Trace [facility] ([place] Comment on above: Performed By: #### C BC, ADIFF, ANEU, TROPHS, CMP, PBNP, GFR #### [place] [phone] Color (U) Yellow Normal [facility] ([place] Comment on above: Performed By: #### C BC, ADIFF, ANEU, TROPHS, CMP, PBNP, GFR #### [place] [phone] Glucose (U) [Mass/Vol] Negative Normal Negative [facility] ([place] Comment on above: Performed By: #### C BC, ADIFF, ANEU, TROPHS, CMP, PBNP, GFR #### [place] [phone] Ketones Ql (U) Negative Normal Neg-Trace [facility] ([place] Comment on above: Performed By: #### C BC, ADIFF, ANEU, TROPHS, CMP, PBNP, GFR #### [address] [address] UA Appear Hazy Abnormal Clear [facility] ([place] Comment on above: Performed By: #### C BC, ADIFF, ANEU, TROPHS, CMP, PBNP, GFR #### [address] [address] UA Blood Large Abnormal Neg-Trace [facility] ([place] Comment on above: Performed By: #### C BC, ADIFF, ANEU, TROPHS, CMP, PBNP, GFR #### [address] [address] UA Leuk Est Small Abnormal Negative [facility] ([place] Comment on above: Performed By: #### C BC, ADIFF, ANEU, TROPHS, CMP, PBNP, GFR #### [address] [address] UA Nitrite Negative Normal Negative [facility] ([place] Comment on above: Performed By: #### C BC, ADIFF, ANEU, TROPHS, CMP, PBNP, GFR #### [address] [address] UA pH 7.5 Normal 5.0 - 8.0 [facility] ([place] Comment on above: Performed By: #### C BC, ADIFF, ANEU, TROPHS, CMP, PBNP, GFR #### [place] [address] UA Protein 30 mg/dL Normal Negative [facility] ([place] Comment on above: Performed By: #### C BC, ADIFF, ANEU, TROPHS, CMP, PBNP, GFR #### [place] [address] UA Spec Grav >=1.030 Abnormal 1.006-1.029 [facility] ([place] Comment on above: Performed By: #### C BC, ADIFF, ANEU, TROPHS, CMP, PBNP, GFR #### [place] [address] UA Specimen Type Not Given Normal [facility] ([place] Comment on above: Performed By: #### C BC, ADIFF, ANEU, TROPHS, CMP, PBNP, GFR #### [place] [address] UA Urobilinogen 1.0 E.U./dL Normal 0.2-1.0 [facility] ([place] Comment on above: Performed By: #### C BC, ADIFF, ANEU, TROPHS, CMP, PBNP, GFR #### [place] [phone] Urobilinogen Qn (U) Negative Normal Neg-Trace [facility] [place] Comment on above: Performed By: #### C BC, ADIFF, ANEU, TROPHS, CMP, PBNP, GFR #### [place] [address] UAMICon 12-02-2020 RBC (U) [#/Vol] 0-2 Normal 0-2 [facility] ([place] Comment on above: Performed By: #### C BC, ADIFF, ANEU, TROPHS, CMP, PBNP, GFR #### [address] [address] UA Amorphus Trace Normal [facility] [place] Comment on above: Performed By: #### C BC, ADIFF, ANEU, TROPHS, CMP, PBNP, GFR #### [address] [address] UA Bacteria 3+ /hpf Abnormal Negative [facility] ([place] Comment on above: Performed By: #### C BC, ADIFF, ANEU, TROPHS, CMP, PBNP, GFR #### [address] [address] UA CA Ox Crystal Trace Normal [facility] ([place] Comment on above: Performed By: #### C BC, ADIFF, ANEU, TROPHS, CMP, PBNP, GFR #### [place] [phone] UA Squam Epithelial 0-2 Normal 0-20 [facility] [place] Comment on above: Performed By: #### C BC, ADIFF, ANEU, TROPHS, CMP, PBNP, GFR #### [address] [address] UA WBC 3-5 Normal 0-5 [facility] ([place] Comment on above: Performed By: #### C BC, ADIFF, ANEU, TROPHS, CMP, PBNP, GFR #### [address] [address] RBC (U) [#/Vol] 5-10 Abnormal 0-2 [facility] [place] Comment on above: Performed By: #### C BC, ADIFF, ANEU, TROPHS, CMP, PBNP, GFR #### [place] [address] UA Bacteria 4+ /hpf Abnormal Negative [facility] [place] Comment on above: Performed By: #### C BC, ADIFF, ANEU, TROPHS, CMP, PBNP, GFR #### [place] [address] UA CA Ox Crystal Trace Normal [facility] ([place] Comment on above: Performed By: #### C BC, ADIFF, ANEU, TROPHS, CMP, PBNP, GFR #### [place] [address] UA Fine Granular Casts 0-2 Abnormal [facility] [place] Comment on above: Performed By: #### C BC, ADIFF, ANEU, TROPHS, CMP, PBNP, GFR #### [place] [address] UA Mixed Cell Casts 0-2 Abnormal [facility] [place] Comment on above: Performed By: #### C BC, ADIFF, ANEU, TROPHS, CMP, PBNP, GFR #### [place] [address] UA Mucous 2+ /hpf Normal [facility] [place] Comment on above: Performed By: #### C BC, ADIFF, ANEU, TROPHS, CMP, PBNP, GFR #### [place] [address] UA Squam Epithelial 10-20 Normal 0-20 [facility] [place] Comment on above: Performed By: #### C BC, ADIFF, ANEU, TROPHS, CMP, PBNP, GFR #### [place] [address] UA WBC 5-10 Abnormal 0-5 [facility] [place] Comment on above: Performed By: #### C BC, ADIFF, ANEU, TROPHS, CMP, PBNP, GFR #### [place] [address] .Auto Diffon 12-01-2020 Ammonia (P) [Mass/Vol] 0.50 10 3/mcL Normal 0.09-1.40 [facility] ([place] Comment on above: Performed By: #### C BC, ADIFF, ANEU, TROPHS, CMP, PBNP, GFR #### [place] [address] Basophils (Bld) [#/Vol] 0.00 10 3/mcL Normal 0.00-0.27 [facility] ([place] Comment on above: Performed By: #### C BC, ADIFF, ANEU, TROPHS, CMP, PBNP, GFR #### [address] [address] Basophils/100 WBC (Bld) 0.4 % Normal 0.0-2.5 [facility] ([place]) Comment on above: Performed By: #### C BC, ADIFF, ANEU, TROPHS, CMP, PBNP, GFR #### [address] [address] Eosinophils (Bld) [#/Vol] 0.00 10 3/mcL Normal 0.00-0.65 [facility] ([place] Comment on above: Performed By: #### C BC, ADIFF, ANEU, TROPHS, CMP, PBNP, GFR #### [address] [address] Eosinophils/100 WBC (Bld) 0.3 % Normal 0.0-6.0 [facility] [place] Comment on above: Performed By: #### C BC, ADIFF, ANEU, TROPHS, CMP, PBNP, GFR #### [address] [address] Lymphocytes (Bld) [#/Vol] 2.10 10 3/mcL Normal 0.90-4.32 [facility] ([place] Comment on above: Performed By: #### C BC, ADIFF, ANEU, TROPHS, CMP, PBNP, GFR #### [address] [address] Lymphocytes/100 WBC (Bld) 25.7 % Normal 20.0-40.0 [facility] ([place] Comment on above: Performed By: #### C BC, ADIFF, ANEU, TROPHS, CMP, PBNP, GFR #### [address] [address] Monocytes/100 WBC (Bld) 6.4 % Normal 2.0-13.0 [facility] ([place]) Comment on above: Performed By: #### C BC, ADIFF, ANEU, TROPHS, CMP, PBNP, GFR #### [address] [address] Neutrophils/100 WBC (Bld) 67.2 % Normal 50.0-75.0 [facility] ([place] Comment on above: Performed By: #### C BC, ADIFF, ANEU, TROPHS, CMP, PBNP, GFR #### [address] [address] .GFRon 12-01-2020 GFR Non- >60 Normal [facility] ([place] Comment on above: Result Comment: GFR Population [...] ADIFF, ANEU, TROPHS, CMP, PBNP, GFR #### [address] [address] GFR >60 Normal [facility] [place] Comment on above: Result Comment: GFR Population [...] ADIFF, ANEU, TROPHS, CMP, PBNP, GFR #### [address] [address] .NEUABSon 12-01-2020 Neutrophils (Bld) [#/Vol] 5.40 10 3/mcL Normal 2.25-8.10 [facility] ([place] Comment on above: Performed By: #### C BC, ADIFF, ANEU, TROPHS, CMP, PBNP, GFR #### [address] [address] CBCon 12-01-2020 Erythrocyte distribution width (RBC) [Ratio] 17.1 % High 11.5-15.5 [facility] ([place] Comment on above: Performed By: #### C BC, ADIFF, ANEU, TROPHS, CMP, PBNP, GFR #### [place] [address] Hematocrit (Bld) [Volume fraction] 39.9 % Normal 34.0-46.0 [facility] ([place] Comment on above: Performed By: #### C BC, ADIFF, ANEU, TROPHS, CMP, PBNP, GFR #### [place] [address] Hemoglobin (Bld) [Mass/Vol] 13.2 G/dL Normal 12.0-16.0 [facility] ([place] Comment on above: Performed By: #### C BC, ADIFF, ANEU, TROPHS, CMP, PBNP, GFR #### [place] [phone] MCH (RBC) [Entitic mass] 30.5 pg Normal 27.0-33.0 [facility] ([place] Comment on above: Performed By: #### C BC, ADIFF, ANEU, TROPHS, CMP, PBNP, GFR #### [place] [id number] MCHC (RBC) [Mass/Vol] 33.2 G/dL Normal 32.0-36.0 [facility] Comment on above: Performed By: #### C BC, ADIFF, ANEU, TROPHS, CMP, PBNP, GFR #### [address] [address] MCV (RBC) [Entitic vol] 91.8 fL Normal 80.0-99.0 [facility] ([place]) Comment on above: Performed By: #### C BC, ADIFF, ANEU, TROPHS, CMP, PBNP, GFR #### [address] [address] Platelet mean volume (Bld) [Entitic vol] 6.4 fL Low 6.6-10.5 [facility] ([place] Comment on above: Performed By: #### C BC, ADIFF, ANEU, TROPHS, CMP, PBNP, GFR #### [address] [address] Platelets (Bld) [#/Vol] 352 10 3/mcL Normal 150-450 [facility] ([place] Comment on above: Performed By: #### C BC, ADIFF, ANEU, TROPHS, CMP, PBNP, GFR #### [place] [phone] RBC (Bld) [#/Vol] 4.34 10 6/mcL Normal 4.10-5.30 [facility] [place] Comment on above: Performed By: #### C BC, ADIFF, ANEU, TROPHS, CMP, PBNP, GFR #### [place] [phone] WBC (Bld) [#/Vol] 7.40 10 3/mcL Normal 4.50-10.80 [facility] [place] Comment on above: Performed By: #### C BC, ADIFF, ANEU, TROPHS, CMP, PBNP, GFR #### [address] [address] CMPon 12-01-2020 Albumin [Mass/Vol] 3.1 G/dL Low 3.2-4.8 [facility] [place] Comment on above: Performed By: #### C BC, ADIFF, ANEU, TROPHS, CMP, PBNP, GFR #### [place] [phone] Albumin/Globulin [Mass ratio] 0.9 {ratio} Normal 0.9-1.6 [facility] ([place] Comment on above: Performed By: #### C BC, ADIFF, ANEU, TROPHS, CMP, PBNP, GFR #### [address] [address] ALP [Catalytic activity/Vol] 50 U/L Normal 38-126 [facility] ([place] Comment on above: Performed By: #### C BC, ADIFF, ANEU, TROPHS, CMP, PBNP, GFR #### [address] [address] ALT [Catalytic activity/Vol] 59 U/L High 10-49 [facility] ([place] Comment on above: Performed By: #### C BC, ADIFF, ANEU, TROPHS, CMP, PBNP, GFR #### [address] [address] AST [Catalytic activity/Vol] 21 U/L Normal 8-34 [facility] ([place] Comment on above: Performed By: #### C BC, ADIFF, ANEU, TROPHS, CMP, PBNP, GFR #### [address] [address] Bili Total 1.4 mg/dL High 0.2-1.2 [facility] ([place] Comment on above: Result Comment: Use of this assay is not recommended for patients undergoing treatment with eltrombopag due to the potential for falsely elevated results. Performed By: #### C BC, ADIFF, ANEU, TROPHS, CMP, PBNP, GFR #### [address] [address] Calcium [Mass/Vol] 8.9 mg/dL Normal 8.4-10.1 [facility] [place] Comment on above: Result Comment: No te - New Reference Range in effect 20 Performed By: #### C BC, ADIFF, ANEU, TROPHS, CMP, PBNP, GFR #### [address] [address] Chloride [Moles/Vol] 101 mmol/L Normal 98-110 [facility] [place] Comment on above: Performed By: #### C BC, ADIFF, ANEU, TROPHS, CMP, PBNP, GFR #### [address] [address] CO2 [Moles/Vol] 22 mmol/L Normal 22-32 [facility] [place] Comment on above: Performed By: #### C BC, ADIFF, ANEU, TROPHS, CMP, PBNP, GFR #### [address] [address] Creatinine [Mass/Vol] 0.86 mg/dL Normal 0.50-1.20 [facility] [place] Comment on above: Performed By: #### C BC, ADIFF, ANEU, TROPHS, CMP, PBNP, GFR #### [address] [address] Electrolyte Balance 16.0 mEq/L High 4.0-15.0 [facility] ([place] Comment on above: Performed By: #### C BC, ADIFF, ANEU, TROPHS, CMP, PBNP, GFR #### [address] [address] Globulin (S) [Mass/Vol] 3.3 G/dL Normal 1.5-3.8 [facility] ([place] Comment on above: Performed By: #### C BC, ADIFF, ANEU, TROPHS, CMP, PBNP, GFR #### [address] [address] Glucose [Mass/Vol] 111 mg/dL Normal 82-115 [facility] [place] Comment on above: Performed By: #### C BC, ADIFF, ANEU, TROPHS, CMP, PBNP, GFR #### [address] [address] Potassium [Moles/Vol] 2.7 mmol/L Critically abnormal 3.5-5.0 [facility] ([place] Comment on above: Performed By: #### C BC, ADIFF, ANEU, TROPHS, CMP, PBNP, GFR #### [address] [address] Protein [Mass/Vol] 6.4 G/dL Normal 6.0-8.5 [facility] [place] Comment on above: Result Comment: No te - New Reference Range in effect 20 Performed By: #### C BC, ADIFF, ANEU, TROPHS, CMP, PBNP, GFR #### [address] [address] Sodium [Moles/Vol] 139 mmol/L Normal 136-145 [facility] [place] Comment on above: Performed By: #### C BC, ADIFF, ANEU, TROPHS, CMP, PBNP, GFR #### [address] [address] Urea nitrogen [Mass/Vol] 17.0 mg/dL Normal 8.0-22.0 [facility] [place] Comment on above: Performed By: #### C BC, ADIFF, ANEU, TROPHS, CMP, PBNP, GFR #### [place] [phone] Urea nitrogen/Creatinine [Mass ratio] 19.8 ratio Normal 10.0-22.0 [facility] ([place] Comment on above: Performed By: #### C BC, ADIFF, ANEU, TROPHS, CMP, PBNP, GFR #### [address] [address] PBNPon 12-01-2020 Natriuretic peptide B (Bld) [Mass/Vol] 776 pg/mL Normal 0-1800 [facility] ([place] Comment on above: Result Comment: NT-p roBNP results of less than 300 pg/mL effectively rules out acute congestive heart failure with 99% negative predictive value. Performed By: #### C BC, ADIFF, ANEU, TROPHS, CMP, PBNP, GFR #### [address] [address] TROPHSon 12-01-2020 Troponin I High Sensitivity 16.60 ng/L Normal 0.00-34.00 [facility] ([place]) Comment on above: Performed By: #### C BC, ADIFF, ANEU, TROPHS, CMP, PBNP, GFR #### [place] [id number] XR CHEST 1 VIEWon 12-01-2020 XR CHEST [...] Sign Date: 12/01/2020 9:07:38 PM Ordering Provider:Jerrell Ornelas [facility] ([place]) Culture, urine Bacteria identified Cx Nom (U) Presumptive E. coli [facility] Work Phone: Vital Signs Date Time Vital Sign Value Performing Clinician Zulmai maria fernanda 05-29-2025 08:27-0400 Heart rate 96 /min Jorge A Rinaldi MD Work Phone: [facility] 05-29-2025 08:22-0400 Body temperature 97.1 [degF] Jorge A Rinaldi MD Work Phone: [place] [facility] 05-29-[facility]25 08:22-0400 Diastolic blood pressure 86 mm[Hg] Jorge A Rinaldi MD Work Phone: [facility] 05-29-2025 08:22-0400 Respiratory rate 16 /min Jorge A Rinaldi MD Work Phone: [facility] 05-29-2025 08:22-0400 SaO2% (BldA) [Mass fraction] 100 % Jorge A Rinaldi MD Work Phone: [facility] 05-29-2025 08:22-0400 Systolic blood pressure 157 mm[Hg] Jorge A Rinaldi MD Work Phone: [facility] 05-26-2025 14:00-0400 Body mass index (BMI) [Ratio] 31.7 kg/m2 Jorge A Rinaldi MD Work Phone: [facility] 05-26-2025 14:00-0400 Body weight 73.3 kg Jorge A Rinaldi MD Work Phone: [facility] 05-25-2025 13:35-0400 Diastolic blood pressure 89 mm[Hg] Jorge A Rinaldi MD Work Phone: [facility] 05-25-2025 13:35-0400 Heart rate 80 /min Jorge A Rinaldi MD Work Phone: 4(822)339-489062 [address] 05-25-2025 13:35-0400 Systolic blood pressure 172 mm[Hg] Jorge A Rinaldi MD Work Phone: [facility] 05-25-2025 13:10-0400 Body temperature 97.4 [degF] Jorge A Rinaldi MD Work Phone: [facility] 05-25-2025 13:10-0400 Diastolic blood pressure 81 mm[Hg] Jorge A Rinaldi MD Work Phone: [facility] 05-25-2025 13:10-0400 Heart rate 81 /min Jorge A Rinaldi MD Work Phone: [facility] 05-25-2025 13:10-0400 Respiratory rate 16 /min Jorge A Rinaldi MD Work Phone: [facility] 05-25-2025 13:10-0400 SaO2% (BldA) [Mass fraction] 99 % Jorge A Rinaldi MD Work Phone: [facility] 05-25-2025 13:10-0400 Systolic blood pressure 117 mm[Hg] Jorge A Rinaldi MD Work Phone: [facility] 05-25-2025 11:48-0400 Body height 152.4 cm Jorge A Rinaldi MD Work Phone: [facility] 05-25-2025 11:48-0400 Body mass index (BMI) [Ratio] 31.6 kg/m2 Jorge A Rinaldi MD Work Phone: [facility] 05-25-2025 11:48-0400 Body weight 73.48 kg Jorge A Rinaldi MD Work Phone: [facility] 05-25-2025 11:18-0400 Body mass index (BMI) [Ratio] 31.9 kg/m2 Jorge A Rinaldi MD Work Phone: [facility] 05-25-2025 11:18-0400 Body temperature 97.1 [degF] Jorge A Rinaldi MD Work Phone: [facility] 05-25-2025 11:18-0400 Body weight 73.84 kg Jorge A Rinaldi MD Work Phone: [facility] 05-25-2025 11:18-0400 Respiratory rate 16 /min Jorge A Rinaldi MD Work Phone: [facility] 05-25-2025 11:18-0400 SaO2% (BldA) [Mass fraction] 99 % Jorge A Rinaldi MD Work Phone: [facility] 04-20-2025 16:44-0400 Body temperature 99.7 [degF] Elliot Murillo MD Work Phone: [facility] 04-20-2025 16:44-0400 Diastolic blood pressure 76 mm[Hg] Elliot Murillo MD Work Phone: [facility] 04-20-2025 16:44-0400 Heart rate 91 /min Elliot Murillo MD Work Phone: [facility] 04-20-2025 16:44-0400 Respiratory rate 18 /min Elliot Murillo MD Work Phone: [facility] 04-20-2025 16:44-0400 SaO2% (BldA) [Mass fraction] 100 % Elliot Murillo MD Work Phone: [facility] 04-20-2025 16:44-0400 Systolic blood pressure 176 mm[Hg] Elliot Murillo MD Work Phone: [facility] 04-20-2025 09:00-0400 Body mass index (BMI) [Ratio] 38.81 kg/m2 Elliot Murillo MD Work Phone: [facility] 04-20-2025 09:00-0400 Body weight 90.13 kg Elliot Murillo MD Work Phone: [facility] 04-10-2025 11:00-0400 Body height 152.4 cm Elliot Murillo MD Work Phone: [facility] 04-08-2025 13:15-0400 Body temperature 97.8 [degF] Jorge A Rinaldi MD Work Phone: [facility] 04-08-2025 13:15-0400 Diastolic blood pressure 78 mm[Hg] Jorge A Rinaldi MD Work Phone: [facility] 04-08-2025 13:15-0400 Heart rate 70 /min Jorge A Rinaldi MD Work Phone: [facility] 04-08-2025 13:15-0400 Respiratory rate 20 /min Jorge A Rinaldi MD Work Phone: [facility] 04-08-2025 13:15-0400 SaO2% (BldA) [Mass fraction] 100 % Jorge A Rinaldi MD Work Phone: [facility] 04-08-2025 13:15-0400 Systolic blood pressure 173 mm[Hg] Jorge A Rinaldi MD Work Phone: [facility] 04-08-2025 12:09-0400 Body mass index (BMI) [Ratio] 36.6 kg/m2 Jorge A Rinaldi MD Work Phone: [facility] 04-08-2025 12:09-0400 Body weight 85 kg Jorge A Rinaldi MD Work Phone: [facility] 04-08-2025 11:29-0400 Body height 152.4 cm Jorge A Rinaldi MD Work Phone: [facility] 04-07-2025 12:59-0400 Body height 152.4 cm Jorge A Rinaldi MD Work Phone: [facility] 04-07-2025 12:59-0400 Body mass index (BMI) [Ratio] 33.7 kg/m2 Jorge A Rinaldi MD Work Phone: [facility] 04-07-2025 12:59-0400 Body temperature 98.3 [degF] Jorge A Rinaldi MD Work Phone: [facility] 04-07-2025 12:59-0400 Body weight 78.49 kg Jorge A Rinaldi MD Work Phone: [facility] 04-07-2025 12:59-0400 Diastolic blood pressure 66 mm[Hg] Jorge A Rinaldi MD Work Phone: [facility] 04-07-2025 12:59-0400 Heart rate 75 /min Jorge A Rinaldi MD Work Phone: [facility] 04-07-2025 12:59-0400 Respiratory rate 16 /min Jorge A Rinaldi MD Work Phone: [facility] 04-07-2025 12:59-0400 SaO2% (BldA) [Mass fraction] 100 % Jorge A Rinaldi MD Work Phone: [facility] 04-07-2025 12:59-0400 Systolic blood pressure 138 mm[Hg] Jorge A Rinaldi MD Work Phone: [facility] 03-10-2025 10:53-0400 Body height 152.4 cm Jorge A Rinaldi MD Work Phone: [facility] 03-10-2025 10:53-0400 Body mass index (BMI) [Ratio] 34 kg/m2 Jorge A Rinaldi MD Work Phone: [facility] 03-10-2025 10:53-0400 Body temperature 97.9 [degF] Jorge A Rinaldi MD Work Phone: [facility] 03-10-2025 10:53-0400 Body weight 79.09 kg Jorge A Rinaldi MD Work Phone: [facility] 03-10-2025 10:53-0400 Diastolic blood pressure 78 mm[Hg] Jorge A Rinaldi MD Work Phone: [facility] 03-10-2025 10:53-0400 Heart rate 75 /min Jorge A Rinaldi MD Work Phone: [facility] 03-10-2025 10:53-0400 Respiratory rate 18 /min Jorge A Rinaldi MD Work Phone: [facility] 03-10-2025 10:53-0400 SaO2% (BldA) [Mass fraction] 100 % Jorge A Rinaldi MD Work Phone: [facility] 03-10-2025 10:53-0400 Systolic blood pressure 162 mm[Hg] Jorge A Rinaldi MD Work Phone: [facility] 02-09-2025 14:23-0400 Body mass index (BMI) [Ratio] 35.2 kg/m2 Jorge A Rinaldi MD Work Phone: [facility] 02-09-2025 14:23-0400 Body temperature 98.2 [degF] Jorge A Rinaldi MD Work Phone: [facility] 02-09-2025 14:23-0400 Body weight 81.64 kg Jorge A Rinaldi MD Work Phone: [facility] 02-09-2025 14:23-0400 Diastolic blood pressure 73 mm[Hg] Jorge A Rinaldi MD Work Phone: [facility] 02-09-2025 14:23-0400 Heart rate 77 /min Jorge A Rinaldi MD Work Phone: [facility] 02-09-2025 14:23-0400 Respiratory rate 18 /min Jorge A Rinaldi MD Work Phone: [facility] 02-09-2025 14:23-0400 SaO2% (BldA) [Mass fraction] 100 % Jorge A Rinaldi MD Work Phone: [facility] 02-09-2025 14:23-0400 Systolic blood pressure 167 mm[Hg] Jorge A Rinaldi MD Work Phone: [facility] 12-31-2024 09:25-0400 Body mass index (BMI) [Ratio] 35.3 kg/m2 Jorge A Rinaldi MD Work Phone: 0(934)[phone] [place] [address] 12-31-2024 09:25-0400 Body temperature 98.3 [degF] Jorge A Rinaldi MD Work Phone: 7(162)864-772462 [address] 12-31-2024 09:25-0400 Body weight 82.1 kg Jorge A Rinaldi MD Work Phone: 3(592)[phone] [place] [address] 12-31-2024 09:25-0400 Diastolic blood pressure 74 mm[Hg] Jorge A Rinaldi MD Work Phone: 6(936)253-889262 [address] 12-31-2024 09:25-0400 Heart rate 65 /min Jorge A Rinaldi MD Work Phone: 2(283)716-193235 [place] [address] 12-31-2024 09:25-0400 Respiratory rate 16 /min Jorge A Rinaldi MD Work Phone: 7(370)410-720335 [place] [address] 12-31-2024 09:25-0400 SaO2% (BldA) [Mass fraction] 100 % Jorge A Rinaldi MD Work Phone: [facility] 12-31-2024 09:25-0400 Systolic blood pressure 154 mm[Hg] Jorge A Rinaldi MD Work Phone: 9(154)635-493662 [address] 12-24-2024 10:35-0400 Body mass index (BMI) [Ratio] 34.9 kg/m2 Jorge A Rinaldi MD Work Phone: 6(212)484-449262 [address] 12-24-2024 10:35-0400 Body temperature 97.3 [degF] Jorge A Rinaldi MD Work Phone: 7(952)114-096157 [place] [address] 12-24-2024 10:35-0400 Body weight 81.19 kg Jorge A Rinaldi MD Work Phone: [facility] 12-24-2024 10:35-0400 Diastolic blood pressure 88 mm[Hg] Jorge A Rinaldi MD Work Phone: [facility] 12-24-2024 10:35-0400 Heart rate 67 /min Jorge A Rinaldi MD Work Phone: [facility] 12-24-2024 10:35-0400 Respiratory rate 16 /min Jorge A Rinaldi MD Work Phone: [facility] 12-24-2024 10:35-0400 SaO2% (BldA) [Mass fraction] 100 % Jorge A Rinaldi MD Work Phone: [facility] 12-24-2024 10:35-0400 Systolic blood pressure 179 mm[Hg] Jorge A Rinaldi MD Work Phone: [facility] 12-18-2024 10:08-0500 Body temperature 98.4 [degF] Jorge A Rinaldi MD Work Phone: [facility] 12-18-2024 10:08-0500 Body weight 81.64 kg Jorge A Rinaldi MD Work Phone: [facility] 12-18-2024 10:08-0500 Diastolic blood pressure 76 mm[Hg] Jorge A Rinaldi MD Work Phone: [facility] 12-18-2024 10:08-0500 Heart rate 79 /min Jorge A Rinaldi MD Work Phone: [facility] 12-18-2024 10:08-0500 Respiratory rate 17 /min Jorge A Rinaldi MD Work Phone: [facility] 12-18-2024 10:08-0500 SaO2% (BldA) [Mass fraction] 98 % Jorge A Rinaldi MD Work Phone: [facility] 12-18-2024 10:08-0500 Systolic blood pressure 120 mm[Hg] Jorge A Rinaldi MD Work Phone: [facility] 12-01-2024 15:32-0500 Body mass index (BMI) [Ratio] 34.9 kg/m2 Jorge A Rinaldi MD Work Phone: [facility] 12-01-2024 15:32-0500 Body temperature 97.2 [degF] Jorge A Rinaldi MD Work Phone: [facility] 12-01-2024 15:32-0500 Body weight 81.3 kg Jorge A Rinaldi MD Work Phone: [facility] 12-01-2024 15:32-0500 Diastolic blood pressure 72 mm[Hg] Jorge A Rinaldi MD Work Phone: [facility] 12-01-2024 15:32-0500 Heart rate 74 /min Jorge A Rinaldi MD Work Phone: [facility] 12-01-2024 15:32-0500 Respiratory rate 18 /min Jorge A Rinaldi MD Work Phone: [facility] 12-01-2024 15:32-0500 SaO2% (BldA) [Mass fraction] 99 % Jorge A Rinaldi MD Work Phone: [facility] 12-01-2024 15:32-0500 Systolic blood pressure 138 mm[Hg] Jorge A Rinaldi MD Work Phone: [facility] 11-26-2024 10:00-0500 Body mass index (BMI) [Ratio] 34.8 kg/m2 Jorge A Rinaldi MD Work Phone: [facility] 11-26-2024 10:00-0500 Body temperature 96.9 [degF] Jorge A Rinaldi MD Work Phone: [facility] 11-26-2024 10:00-0500 Body weight 80.93 kg Jorge A Rinaldi MD Work Phone: [facility] 11-26-2024 10:00-0500 Diastolic blood pressure 86 mm[Hg] Jorge A Rinaldi MD Work Phone: [facility] 11-26-2024 10:00-0500 Heart rate 63 /min Jorge A Rinaldi MD Work Phone: [facility] 11-26-2024 10:00-0500 Respiratory rate 18 /min Jorge A Rinaldi MD Work Phone: [facility] 11-26-2024 10:00-0500 SaO2% (BldA) [Mass fraction] 99 % Jorge A Rinaldi MD Work Phone: [facility] 11-26-2024 10:00-0500 Systolic blood pressure 162 mm[Hg] Jorge A Rinaldi MD Work Phone: [facility] 10-09-2023 09:43-0500 Body height 152.4 cm DO Uyen Shane Work Phone: [facility] 10-09-2023 09:43-0500 Body mass index (BMI) [Ratio] 37 kg/m2 DO Uyen Shane Work Phone: [facility] 10-09-2023 09:43-0500 Body temperature 97.8 [degF] DO Uyen Shane Work Phone: [facility] 10-09-2023 09:43-0500 Body weight 86.21 kg DO Uyen Shane Work Phone: [facility] 10-09-2023 09:43-0500 Diastolic blood pressure 80 mm[Hg] DO Uyen Shane Work Phone: [facility] 10-09-2023 09:43-0500 Heart rate 63 /min DO Uyen Shane Work Phone: [facility] 10-09-2023 09:43-0500 Respiratory rate 18 /min DO Uyen Shane Work Phone: [facility] 10-09-2023 09:43-0500 SaO2% (BldA) [Mass fraction] 98 % DO Uyen Shane Work Phone: [facility] 10-09-2023 09:43-0500 Systolic blood pressure 160 mm[Hg] DO Uyen Shane Work Phone: [facility] 09-18-2023 10:53-0500 Body mass index (BMI) [Ratio] 37 kg/m2 DO Uyen Shane Work Phone: [facility] 09-18-2023 10:53-0500 Body temperature 98 [degF] DO Uyen Shane Work Phone: [facility] 09-18-2023 10:53-0500 Body weight 86.09 kg DO Uyen Shane Work Phone: [facility] 09-18-2023 10:53-0500 Diastolic blood pressure 70 mm[Hg] DO Uyen Shane Work Phone: [facility] 09-18-2023 10:53-0500 Heart rate 67 /min DO Uyen Shane Work Phone: [facility] 09-18-2023 10:53-0500 Respiratory rate 17 /min DO Uyen Shane Work Phone: [facility] 09-18-2023 10:53-0500 SaO2% (BldA) [Mass fraction] 99 % DO Uyen Shane Work Phone: [facility] 09-18-2023 10:53-0500 Systolic blood pressure 130 mm[Hg] DO Uyen Shane Work Phone: [facility] 09-18-2023 08:54-0500 Body mass index (BMI) [Ratio] 36.9 kg/m2 DO Uyen Shane Work Phone: [facility] 09-18-2023 08:54-0500 Body weight 85.72 kg DO Uyen Shane Work Phone: [facility] 09-18-2023 08:54-0500 Diastolic blood pressure 82 mm[Hg] DO Uyen Shane Work Phone: [facility] 09-18-2023 08:54-0500 Heart rate 71 /min DO Uyen Shane Work Phone: [facility] 09-18-2023 08:54-0500 Respiratory rate 20 /min DO Uyen Shane Work Phone: [facility] 09-18-2023 08:54-0500 SaO2% (BldA) [Mass fraction] 100 % DO Uyen Shane Work Phone: [facility] 09-18-2023 08:54-0500 Systolic blood pressure 143 mm[Hg] DO Uyen Sahne Work Phone: [facility] 09-11-2023 11:14-0500 Body mass index (BMI) [Ratio] 37.3 kg/m2 DO Uyen Shane Work Phone: [facility] 09-11-2023 11:14-0500 Body temperature 97.9 [degF] DO Uyen Shane Work Phone: [facility] 09-11-2023 11:14-0500 Body weight 86.8 kg DO Uyen Shane Work Phone: [facility] 09-11-2023 11:14-0500 Diastolic blood pressure 81 mm[Hg] DO Uyen Shane Work Phone: [facility] 09-11-2023 11:14-0500 Heart rate 75 /min DO Uyen Shane Work Phone: [facility] 09-11-2023 11:14-0500 Respiratory rate 18 /min DO Uyen Shaen Work Phone: [facility] 09-11-2023 11:14-0500 SaO2% (BldA) [Mass fraction] 95 % DO Uyen Shane Work Phone: [facility] 09-11-2023 11:14-0500 Systolic blood pressure 181 mm[Hg] DO Uyen Shane Work Phone: [facility] 08-14-2023 10:41-0400 Body mass index (BMI) [Ratio] 37 kg/m2 DO Uyen Shane Work Phone: [facility] 08-14-2023 10:41-0400 Body temperature 98.2 [degF] DO Uyen Shane Work Phone: [facility] 08-14-2023 10:41-0400 Body weight 85.95 kg DO Uyen Shane Work Phone: [facility] 08-14-2023 10:41-0400 Diastolic blood pressure 69 mm[Hg] DO Uyen Shaen Work Phone: [facility] 08-14-2023 10:41-0400 Heart rate 64 /min DO Uyen Shane Work Phone: [facility] 08-14-2023 10:41-0400 Respiratory rate 18 /min DO Uyen Shane Work Phone: [facility] 08-14-2023 10:41-0400 SaO2% (BldA) [Mass fraction] 100 % DO Uyen Shane Work Phone: [facility] 08-14-2023 10:41-0400 Systolic blood pressure 149 mm[Hg] DO Uyen Shane Work Phone: [facility] 07-17-2023 10:17-0400 Body mass index (BMI) [Ratio] 37.5 kg/m2 DO Uyen Shane Work Phone: [facility] 07-17-2023 10:17-0400 Body temperature 98.3 [degF] DO Uyen Shane Work Phone: [facility] 07-17-2023 10:17-0400 Body weight 87.34 kg DO Uyen Shane Work Phone: [facility] 07-17-2023 10:17-0400 Diastolic blood pressure 72 mm[Hg] DO Uyen Shane Work Phone: [facility] 07-17-2023 10:17-0400 Heart rate 76 /min DO Uyen Shane Work Phone: [facility] 07-17-2023 10:17-0400 Respiratory rate 18 /min DO Uyen Shane Work Phone: [facility] 07-17-2023 10:17-0400 SaO2% (BldA) [Mass fraction] 99 % DO Uyen Shane Work Phone: [facility] 07-17-2023 10:17-0400 Systolic blood pressure 157 mm[Hg] DO Uyen Shane Work Phone: [facility] 06-19-2023 10:50-0400 Body mass index (BMI) [Ratio] 37.7 kg/m2 DO Uyen Shane Work Phone: [facility] 06-19-2023 10:50-0400 Body temperature 98.3 [degF] DO Uyen Shane Work Phone: [facility] 06-19-2023 10:50-0400 Body weight 87.68 kg DO Uyen Shane Work Phone: [facility] 06-19-2023 10:50-0400 Diastolic blood pressure 79 mm[Hg] DO Uyen Shane Work Phone: [facility] 06-19-2023 10:50-0400 Heart rate 70 /min DO Uyen Shane Work Phone: [facility] 06-19-2023 10:50-0400 Respiratory rate 18 /min DO Uyen Shane Work Phone: [facility] 06-19-2023 10:50-0400 SaO2% (BldA) [Mass fraction] 99 % DO Uyen Shane Work Phone: [facility] 06-19-2023 10:50-0400 Systolic blood pressure 148 mm[Hg] DO Uyen Shane Work Phone: [facility] 05-22-2023 11:52-0400 Body height 152.4 cm DO Uyen Shane Work Phone: [facility] 05-22-2023 11:48-0400 Body mass index (BMI) [Ratio] 37.5 kg/m2 DO Uyen Shane Work Phone: [facility] 05-22-2023 11:48-0400 Body temperature 96.6 [degF] DO Uyen Shane Work Phone: [facility] 05-22-2023 11:48-0400 Body weight 87.08 kg DO Uyen Shane Work Phone: [facility] 05-22-2023 11:48-0400 Diastolic blood pressure 83 mm[Hg] DO Uyen Shane Work Phone: [facility] 05-22-2023 11:48-0400 Heart rate 61 /min DO Uyen Shane Work Phone: [facility] 05-22-2023 11:48-0400 Respiratory rate 16 /min DO Uyen Shane Work Phone: [facility] 05-22-2023 11:48-0400 SaO2% (BldA) [Mass fraction] 98 % DO Uyen Shane Work Phone: [facility] 05-22-2023 11:48-0400 Systolic blood pressure 138 mm[Hg] DO Uyen Shane Work Phone: [facility] 05-08-2023 13:05-0400 Body height 152.4 cm DO Uyen Shane Work Phone: [facility] 05-08-2023 13:03-0400 Body mass index (BMI) [Ratio] 37.5 kg/m2 DO Uyen Shane Work Phone: [facility] 05-08-2023 13:03-0400 Body temperature 97.5 [degF] DO Uyen Shane Work Phone: [facility] 05-08-2023 13:03-0400 Body weight 87.25 kg DO Uyen Shane Work Phone: [facility] 05-08-2023 13:03-0400 Diastolic blood pressure 73 mm[Hg] DO Uyen Shane Work Phone: [facility] 05-08-2023 13:03-0400 Heart rate 58 /min DO Uyen Shane Work Phone: [facility] 05-08-2023 13:03-0400 Respiratory rate 16 /min DO Uyen Shane Work Phone: [facility] 05-08-2023 13:03-0400 SaO2% (BldA) [Mass fraction] 100 % DO Uyen Shane Work Phone: [facility] 05-08-2023 13:03-0400 Systolic blood pressure 149 mm[Hg] DO Uyen Shane Work Phone: [facility] 04-24-2023 09:35-0400 Body height 152.4 cm DO Uyen Shane Work Phone: [facility] 04-24-2023 09:34-0400 Body mass index (BMI) [Ratio] 37.5 kg/m2 DO Uyen Shane Work Phone: [facility] 04-24-2023 09:34-0400 Body temperature 98.2 [degF] DO Uyen Shane Work Phone: [facility] 04-24-2023 09:34-0400 Body weight 87.2 kg DO Uyen Shane Work Phone: [facility] 04-24-2023 09:34-0400 Diastolic blood pressure 79 mm[Hg] DO Uyen Shane Work Phone: [facility] 04-24-2023 09:34-0400 Heart rate 72 /min DO Uyen Shane Work Phone: [facility] 04-24-2023 09:34-0400 Respiratory rate 16 /min DO Uyen Shane Work Phone: [facility] 04-24-2023 09:34-0400 SaO2% (BldA) [Mass fraction] 100 % DO Uyen Shane Work Phone: [facility] 04-24-2023 09:34-0400 Systolic blood pressure 158 mm[Hg] DO Uyen Shane Work Phone: [facility] 04-19-2023 14:13-0400 Body mass index (BMI) [Ratio] 37.3 kg/m2 DO Uyen Shane Work Phone: [facility] 04-19-2023 14:13-0400 Body temperature 98.1 [degF] DO Uyen Shane Work Phone: [facility] 04-19-2023 14:13-0400 Body weight 86.63 kg DO Uyen Shane Work Phone: [facility] 04-19-2023 14:13-0400 Diastolic blood pressure 76 mm[Hg] DO Uyen Shane Work Phone: [facility] 04-19-2023 14:13-0400 Heart rate 74 /min DO Uyen Shane Work Phone: [facility] 04-19-2023 14:13-0400 Respiratory rate 18 /min DO Uyen Shane Work Phone: [facility] 04-19-2023 14:13-0400 SaO2% (BldA) [Mass fraction] 97 % DO Uyen Shane Work Phone: [facility] 04-19-2023 14:13-0400 Systolic blood pressure 144 mm[Hg] DO Uyen Shane Work Phone: [facility] 04-09-2023 11:48-0400 Body height 152.4 cm DO Uyen Shane Work Phone: [facility] 04-09-2023 11:48-0400 Body mass index (BMI) [Ratio] 37.2 kg/m2 DO Uyen Shane Work Phone: [facility] 04-09-2023 11:48-0400 Body temperature 97.6 [degF] DO Uyen Shane Work Phone: [facility] 04-09-2023 11:48-0400 Body weight 86.4 kg DO Uyen Shane Work Phone: [facility] 04-09-2023 11:48-0400 Diastolic blood pressure 89 mm[Hg] DO Uyen Shane Work Phone: [facility] 04-09-2023 11:48-0400 Heart rate 87 /min DO Uyen Shane Work Phone: [facility] 04-09-2023 11:48-0400 Respiratory rate 18 /min DO Uyen Shane Work Phone: [facility] 04-09-2023 11:48-0400 SaO2% (BldA) [Mass fraction] 98 % DO Uyen Shane Work Phone: [facility] 04-09-2023 11:48-0400 Systolic blood pressure 187 mm[Hg] DO Uyen Shane Work Phone: [facility] 04-03-2023 10:04-0400 Body mass index (BMI) [Ratio] 37.7 kg/m2 DO Uyen Shane Work Phone: [facility] 04-03-2023 10:04-0400 Body weight 87.54 kg DO Uyen Shane Work Phone: [facility] 04-03-2023 10:04-0400 Diastolic blood pressure 83 mm[Hg] DO Uyen Shane Work Phone: [facility] 04-03-2023 10:04-0400 Heart rate 66 /min DO Uyen Shane Work Phone: [facility] 04-03-2023 10:04-0400 Respiratory rate 20 /min DO Uyen Shane Work Phone: [facility] 04-03-2023 10:04-0400 SaO2% (BldA) [Mass fraction] 95 % DO Uyen Shane Work Phone: [facility] 04-03-2023 10:04-0400 Systolic blood pressure 145 mm[Hg] DO Uyen Shane Work Phone: [facility] 03-01-2023 14:52-0400 Body mass index (BMI) [Ratio] 37.5 kg/m2 DO Uyen Shane Work Phone: [facility] 03-01-2023 14:52-0400 Body temperature 97.3 [degF] DO Uyen Shane Work Phone: [facility] 03-01-2023 14:52-0400 Body weight 87.11 kg DO Uyen Shane Work Phone: [facility] 03-01-2023 14:52-0400 Diastolic blood pressure 86 mm[Hg] DO Uyen Shane Work Phone: [facility] 03-01-2023 14:52-0400 Heart rate 67 /min DO Uyen Shane Work Phone: [facility] 03-01-2023 14:52-0400 Respiratory rate 16 /min DO Uyen Shane Work Phone: [facility] 03-01-2023 14:52-0400 SaO2% (BldA) [Mass fraction] 100 % DO Uyen Shane Work Phone: [facility] 03-01-2023 14:52-0400 Systolic blood pressure 172 mm[Hg] DO Uyen Shane Work Phone: [facility] 02-14-2023 14:33-0400 Body mass index (BMI) [Ratio] 37.3 kg/m2 DO Uyen Shane Work Phone: [facility] 02-14-2023 14:33-0400 Body temperature 98.4 [degF] DO Uyen Shane Work Phone: [facility] 02-14-2023 14:33-0400 Body weight 86.63 kg DO Uyen Shane Work Phone: [facility] 02-14-2023 14:33-0400 Diastolic blood pressure 89 mm[Hg] DO Uyen Shane Work Phone: [facility] 02-14-2023 14:33-0400 Heart rate 69 /min DO Uyen Shane Work Phone: [facility] 02-14-2023 14:33-0400 Respiratory rate 18 /min DO Uyen Shane Work Phone: [facility] 02-14-2023 14:33-0400 SaO2% (BldA) [Mass fraction] 100 % DO Uyen Shane Work Phone: [facility] 02-14-2023 14:33-0400 Systolic blood pressure 149 mm[Hg] DO Uyen Shane Work Phone: [facility] 01-08-2023 10:58-0400 Body mass index (BMI) [Ratio] 37.5 kg/m2 DO Uyen Shane Work Phone: [facility] 01-08-2023 10:58-0400 Body temperature 98.2 [degF] DO Uyen Shane Work Phone: [facility] 01-08-2023 10:58-0400 Body weight 87.08 kg DO Uyen Shane Work Phone: [facility] 01-08-2023 10:58-0400 Diastolic blood pressure 80 mm[Hg] DO Uyen Shane Work Phone: [facility] 01-08-2023 10:58-0400 Heart rate 67 /min DO Uyen Shane Work Phone: [facility] 01-08-2023 10:58-0400 Respiratory rate 16 /min DO Uyen Shane Work Phone: [facility] 01-08-2023 10:58-0400 SaO2% (BldA) [Mass fraction] 98 % DO Uyen Lynn Work Phone: [facility] 01-08-2023 10:58-0400 Systolic blood pressure 124 mm[Hg] DO Uyen Lynn Work Phone: [facility] 03-31-2022 13:53-0400 Body height 152.4 cm CERTIFIED TUMOR REGISTRAR-C Kortney Arely CERTIFIED TUMOR REGISTRAR Work Phone: [facility] Work Phone: 03-31-2022 13:53-0400 Body mass index (BMI) [Ratio] 33.7 kg/m2 CERTIFIED TUMOR REGISTRAR-C Kortney Arely CERTIFIED TUMOR REGISTRAR Work Phone: [facility] Work Phone: 03-31-2022 13:53-0400 Body weight 78.52 kg CERTIFIED TUMOR REGISTRAR-C Kortney Arely CERTIFIED TUMOR REGISTRAR Work Phone: [facility] Work Phone: 03-31-2022 13:53-0400 Diastolic blood pressure 80 mm[Hg] CERTIFIED TUMOR REGISTRAR-C Kortney Arely CERTIFIED TUMOR REGISTRAR Work Phone: [facility] Work Phone: 03-31-2022 13:53-0400 Heart rate 76 /min CERTIFIED TUMOR REGISTRAR-C Kortney Arely CERTIFIED TUMOR REGISTRAR Work Phone: [facility] Work Phone: 03-31-2022 13:53-0400 Respiratory rate 18 /min CERTIFIED TUMOR REGISTRAR-C Kortney Arely CERTIFIED TUMOR REGISTRAR Work Phone: [facility] Work Phone: 03-31-2022 13:53-0400 Systolic blood pressure 168 mm[Hg] CERTIFIED TUMOR REGISTRAR-C Kortney Arely CERTIFIED TUMOR REGISTRAR Work Phone: [facility] Work Phone: 03-16-2022 14:16-0400 Body mass index (BMI) [Ratio] 33.5 kg/m2 CERTIFIED TUMOR REGISTRAR-C Kortney Arely CERTIFIED TUMOR REGISTRAR Work Phone: [facility] Work Phone: 03-16-2022 14:16-0400 Body temperature 98.2 [degF] CERTIFIED TUMOR REGISTRAR-C Kortney Arely CERTIFIED TUMOR REGISTRAR Work Phone: [facility] Work Phone: 03-16-2022 14:16-0400 Body weight 78.01 kg CERTIFIED TUMOR REGISTRAR-C Kortney Arely CERTIFIED TUMOR REGISTRAR Work Phone: [facility] Work Phone: 03-16-2022 14:16-0400 Diastolic blood pressure 77 mm[Hg] CERTIFIED TUMOR REGISTRAR-C Kortney Arely CERTIFIED TUMOR REGISTRAR Work Phone: [facility] Work Phone: 03-16-2022 14:16-0400 Heart rate 76 /min CERTIFIED TUMOR REGISTRAR-C Kortney Arely CERTIFIED TUMOR REGISTRAR Work Phone: [facility] Work Phone: 03-16-2022 14:16-0400 Respiratory rate 15 /min CERTIFIED TUMOR REGISTRAR-C Kortney Arely CERTIFIED TUMOR REGISTRAR Work Phone: [facility] Work Phone: 03-16-2022 14:16-0400 SaO2% (BldA) [Mass fraction] 99 % CERTIFIED TUMOR REGISTRAR-C Kortney Arely CERTIFIED TUMOR REGISTRAR Work Phone: [facility] Work Phone: 03-16-2022 14:16-0400 Systolic blood pressure 146 mm[Hg] CERTIFIED TUMOR REGISTRAR-C Kortney Arely CERTIFIED TUMOR REGISTRAR Work Phone: [facility] Work Phone: 02-16-2022 15:47-0400 Body mass index (BMI) [Ratio] 33.3 kg/m2 CERTIFIED TUMOR REGISTRAR-C Kortney Arely CERTIFIED TUMOR REGISTRAR Work Phone: [facility] Work Phone: 02-16-2022 15:47-0400 Body temperature 98.6 [degF] CERTIFIED TUMOR REGISTRAR-C Kortney Arely CERTIFIED TUMOR REGISTRAR Work Phone: [facility] Work Phone: 02-16-2022 15:47-0400 Body weight 77.28 kg CERTIFIED TUMOR REGISTRAR-C Kortney Arely CERTIFIED TUMOR REGISTRAR Work Phone: [facility] Work Phone: 02-16-2022 15:47-0400 Diastolic blood pressure 78 mm[Hg] CERTIFIED TUMOR REGISTRAR-C Kortney Arely CERTIFIED TUMOR REGISTRAR Work Phone: [facility] Work Phone: 02-16-2022 15:47-0400 Heart rate 78 /min CERTIFIED TUMOR REGISTRAR-C Kortney Arely CERTIFIED TUMOR REGISTRAR Work Phone: [facility] Work Phone: 02-16-2022 15:47-0400 Respiratory rate 15 /min CERTIFIED TUMOR REGISTRAR-C Kortney Arely CERTIFIED TUMOR REGISTRAR Work Phone: [facility] Work Phone: 02-16-2022 15:47-0400 SaO2% (BldA) [Mass fraction] 97 % CERTIFIED TUMOR REGISTRAR-C Kortney Arely CERTIFIED TUMOR REGISTRAR Work Phone: [facility] Work Phone: 02-16-2022 15:47-0400 Systolic blood pressure 161 mm[Hg] CERTIFIED TUMOR REGISTRAR-C Kortney Arely CERTIFIED TUMOR REGISTRAR Work Phone: [facility] Work Phone: 01-19-2022 10:51-0400 Body mass index (BMI) [Ratio] 31.7 kg/m2 CERTIFIED TUMOR REGISTRAR-C Kortney Arely CERTIFIED TUMOR REGISTRAR Work Phone: [facility] Work Phone: 01-19-2022 10:51-0400 Body temperature 98.3 [degF] CERTIFIED TUMOR REGISTRAR-C Kortney Arely CERTIFIED TUMOR REGISTRAR Work Phone: [facility] Work Phone: 01-19-2022 10:51-0400 Body weight 73.73 kg CERTIFIED TUMOR REGISTRAR-C Kortney Arely CERTIFIED TUMOR REGISTRAR Work Phone: [facility] Work Phone: 01-19-2022 10:51-0400 Diastolic blood pressure 85 mm[Hg] CERTIFIED TUMOR REGISTRAR-C Kortney Arely CERTIFIED TUMOR REGISTRAR Work Phone: [facility] Work Phone: 01-19-2022 10:51-0400 Heart rate 68 /min CERTIFIED TUMOR REGISTRAR-C Kortney Arely CERTIFIED TUMOR REGISTRAR Work Phone: [facility] Work Phone: 01-19-2022 10:51-0400 Respiratory rate 15 /min CERTIFIED TUMOR REGISTRAR-C Kortney Arely CERTIFIED TUMOR REGISTRAR Work Phone: [facility] Work Phone: 01-19-2022 10:51-0400 SaO2% (BldA) [Mass fraction] 98 % CERTIFIED TUMOR REGISTRAR-C Kortney Arely CERTIFIED TUMOR REGISTRAR Work Phone: [facility] Work Phone: 01-19-2022 10:51-0400 Systolic blood pressure 161 mm[Hg] CERTIFIED TUMOR REGISTRAR-C Kortney Arely CERTIFIED TUMOR REGISTRAR Work Phone: [facility] Work Phone: 01-02-2022 14:36-0400 Diastolic blood pressure 78 mm[Hg] CERTIFIED TUMOR REGISTRAR-C Kortney Arely CERTIFIED TUMOR REGISTRAR Work Phone: [facility] Work Phone: 01-02-2022 14:36-0400 Heart rate 78 /min CERTIFIED TUMOR REGISTRAR-C Kortney Arely CERTIFIED TUMOR REGISTRAR Work Phone: [facility] Work Phone: 01-02-2022 14:36-0400 Respiratory rate 18 /min CERTIFIED TUMOR REGISTRAR-C Kortney Arely CERTIFIED TUMOR REGISTRAR Work Phone: [facility] Work Phone: 01-02-2022 14:36-0400 SaO2% (BldA) [Mass fraction] 99 % CERTIFIED TUMOR REGISTRAR-C Kortney Arely CERTIFIED TUMOR REGISTRAR Work Phone: [facility] Work Phone: 01-02-2022 14:36-0400 Systolic blood pressure 140 mm[Hg] CERTIFIED TUMOR REGISTRAR-C Kortney Arely CERTIFIED TUMOR REGISTRAR Work Phone: [facility] Work Phone: 01-02-2022 14:36-0400 Diastolic blood pressure 78 mm[Hg] Dr. Steven Tubbs Work Phone: [facility] Work Phone: 01-02-2022 14:36-0400 Heart rate 78 /min Dr. Steven Tubbs Work Phone: [facility] Work Phone: 01-02-2022 14:36-0400 Respiratory rate 18 /min Dr. Steven Tubbs Work Phone: [facility] Work Phone: 01-02-2022 14:36-0400 SaO2% (BldA) [Mass fraction] 99 % Dr. Steven Tubbs Work Phone: [facility] Work Phone: 01-02-2022 14:36-0400 Systolic blood pressure 140 mm[Hg] Dr. Steven Tubbs Work Phone: [facility] Work Phone: 12-22-2021 14:59-0500 Body mass index (BMI) [Ratio] 31.1 kg/m2 CERTIFIED TUMOR REGISTRAR-C Kortney Arely CERTIFIED TUMOR REGISTRAR Work Phone: [facility] Work Phone: 12-22-2021 14:59-0500 Body temperature 98.5 [degF] CERTIFIED TUMOR REGISTRAR-C Kortney Arely CERTIFIED TUMOR REGISTRAR Work Phone: [facility] Work Phone: 12-22-2021 14:59-0500 Body weight 72.17 kg CERTIFIED TUMOR REGISTRAR-C Kortney Arely CERTIFIED TUMOR REGISTRAR Work Phone: [facility] Work Phone: 12-22-2021 14:59-0500 Diastolic blood pressure 80 mm[Hg] CERTIFIED TUMOR REGISTRAR-C Kortney Arely CERTIFIED TUMOR REGISTRAR Work Phone: [facility] Work Phone: 12-22-2021 14:59-0500 Heart rate 65 /min CERTIFIED TUMOR REGISTRAR-C Kortney Arely CERTIFIED TUMOR REGISTRAR Work Phone: [facility] Work Phone: 12-22-2021 14:59-0500 Respiratory rate 15 /min CERTIFIED TUMOR REGISTRAR-C Kortney Arely CERTIFIED TUMOR REGISTRAR Work Phone: [facility] Work Phone: 12-22-2021 14:59-0500 SaO2% (BldA) [Mass fraction] 97 % CERTIFIED TUMOR REGISTRAR-C Kortney Arely CERTIFIED TUMOR REGISTRAR Work Phone: [facility] Work Phone: 12-22-2021 14:59-0500 Systolic blood pressure 139 mm[Hg] CERTIFIED TUMOR REGISTRAR-C Kortney Arely CERTIFIED TUMOR REGISTRAR Work Phone: [facility] Work Phone: 12-22-2021 13:59-0500 Body mass index (BMI) [Ratio] 31.1 kg/m2 Dr. Steven Tubbs Work Phone: [facility] Work Phone: 12-22-2021 13:59-0500 Body temperature 98.5 [degF] Dr. Steven Tubbs Work Phone: [facility] Work Phone: 12-22-2021 13:59-0500 Body weight 72.[address] Steven Tubbs Work Phone: [facility] Work Phone: 12-22-2021 13:59-0500 Diastolic blood pressure 80 mm[Hg] Dr. Steven Tubbs Work Phone: [facility] Work Phone: 12-22-2021 13:59-0500 Heart rate 65 /min Dr. Steven Tubbs Work Phone: [facility] Work Phone: 12-22-2021 13:59-0500 Respiratory rate 15 /min Dr. Steven Tubbs Work Phone: [facility] Work Phone: 12-22-2021 13:59-0500 SaO2% (BldA) [Mass fraction] 97 % Dr. Steven Tubbs Work Phone: [facility] Work Phone: 12-22-2021 13:59-0500 Systolic blood pressure 139 mm[Hg] Dr. Steven Tubbs Work Phone: [facility] Work Phone: 11-23-2021 08:45-0500 Body mass index (BMI) [Ratio] 30.2 kg/m2 Dr. Steven Tubbs Work Phone: [facility] Work Phone: 11-23-2021 08:45-0500 Body temperature 98.4 [degF] Dr. Steven Tubbs Work Phone: [facility] Work Phone: 11-23-2021 08:45-0500 Body weight 70.[address] Steven Tubbs Work Phone: [facility] Work Phone: 11-23-2021 08:45-0500 Diastolic blood pressure 77 mm[Hg] Dr. Steven Tubbs Work Phone: [facility] Work Phone: 11-23-2021 08:45-0500 Heart rate 73 /min Dr. Steven Tubbs Work Phone: [facility] Work Phone: 11-23-2021 08:45-0500 Respiratory rate 16 /min Dr. Steven Tubbs Work Phone: [facility] Work Phone: 11-23-2021 08:45-0500 SaO2% (BldA) [Mass fraction] 97 % Dr. Steven Tubbs Work Phone: [facility] Work Phone: 11-23-2021 08:45-0500 Systolic blood pressure 170 mm[Hg] Dr. Steven Tubbs Work Phone: [facility] Work Phone: 11-15-2021 08:56-0500 Body mass index (BMI) [Ratio] 30.1 kg/m2 Dr. Steven Tubbs Work Phone: [facility] Work Phone: 11-15-2021 08:56-0500 Body temperature 98.2 [degF] Dr. Steven Tubbs Work Phone: [facility] Work Phone: 11-15-2021 08:56-0500 Body weight 69.[address] Steven Tubbs Work Phone: [facility] Work Phone: 11-15-2021 08:56-0500 Diastolic blood pressure 83 mm[Hg] Dr. Steven Tubbs Work Phone: [facility] Work Phone: 11-15-2021 08:56-0500 Heart rate 64 /min Dr. Steven Tubbs Work Phone: [facility] Work Phone: 11-15-2021 08:56-0500 Respiratory rate 14 /min Dr. Steven Tubbs Work Phone: [facility] Work Phone: 11-15-2021 08:56-0500 SaO2% (BldA) [Mass fraction] 98 % Dr. Steven Tubbs Work Phone: [facility] Work Phone: 11-15-2021 08:56-0500 Systolic blood pressure 144 mm[Hg] Dr. Steven Tubbs Work Phone: [facility] Work Phone: 11-09-2021 08:33-0500 Body mass index (BMI) [Ratio] 29.7 kg/m2 Dr. Steven Tubbs Work Phone: [facility] Work Phone: 11-09-2021 08:33-0500 Body temperature 98.2 [degF] Dr. Steven Tubbs Work Phone: [facility] Work Phone: 11-09-2021 08:33-0500 Body weight 69.[address] Steven Tubbs Work Phone: [facility] Work Phone: 11-09-2021 08:33-0500 Diastolic blood pressure 67 mm[Hg] Dr. Steven Tubbs Work Phone: [facility] Work Phone: 11-09-2021 08:33-0500 Heart rate 83 /min Dr. Steven Tubbs Work Phone: [facility] Work Phone: 11-09-2021 08:33-0500 Respiratory rate 15 /min Dr. Steven Tubbs Work Phone: [facility] Work Phone: 11-09-2021 08:33-0500 SaO2% (BldA) [Mass fraction] 97 % Dr. Steven Tubbs Work Phone: [facility] Work Phone: 11-09-2021 08:33-0500 Systolic blood pressure 164 mm[Hg] Dr. Steven Tubbs Work Phone: [facility] Work Phone: 11-02-2021 12:03-0500 Body mass index (BMI) [Ratio] 29.9 kg/m2 Dr. Steven Tubbs Work Phone: [facility] Work Phone: 11-02-2021 12:03-0500 Body temperature 98.5 [degF] Dr. Steven Tubbs Work Phone: [facility] Work Phone: 11-02-2021 12:03-0500 Body weight 69.[address] Steven Tubbs Work Phone: [facility] Work Phone: 11-02-2021 12:03-0500 Diastolic blood pressure 87 mm[Hg] Dr. Steven Tubbs Work Phone: [facility] Work Phone: 11-02-2021 12:03-0500 Heart rate 75 /min Dr. Steven Tubbs Work Phone: [facility] Work Phone: 11-02-2021 12:03-0500 Respiratory rate 15 /min Dr. Steven Tubbs Work Phone: [facility] Work Phone: 11-02-2021 12:03-0500 SaO2% (BldA) [Mass fraction] 97 % Dr. Steven Tubbs Work Phone: [facility] Work Phone: 11-02-2021 12:03-0500 Systolic blood pressure 174 mm[Hg] Dr. Steven Tubbs Work Phone: [facility] Work Phone: 10-27-2021 12:51-0500 Body mass index (BMI) [Ratio] 29.5 kg/m2 Dr. Steven Tubbs Work Phone: [facility] Work Phone: 10-27-2021 12:51-0500 Body temperature 97.4 [degF] Dr. Steven Tubbs Work Phone: [facility] Work Phone: 10-27-2021 12:51-0500 Body weight 68.[address] Steven Tubbs Work Phone: [facility] Work Phone: 10-27-2021 12:51-0500 Diastolic blood pressure 86 mm[Hg] Dr. Steven Tubbs Work Phone: [facility] Work Phone: 10-27-2021 12:51-0500 Heart rate 77 /min Dr. Steven Tubbs Work Phone: [facility] Work Phone: 10-27-2021 12:51-0500 Respiratory rate 17 /min Dr. Steven Tubbs Work Phone: [facility] Work Phone: 10-27-2021 12:51-0500 SaO2% (BldA) [Mass fraction] 98 % Dr. Steven Tubbs Work Phone: [facility] Work Phone: 10-27-2021 12:51-0500 Systolic blood pressure 168 mm[Hg] Dr. Steven Tubbs Work Phone: [facility] Work Phone: 10-04-2021 12:10-0500 Body temperature 96.5 [degF] Dr. Steven Tubbs Work Phone: [facility] Work Phone: 10-04-2021 12:10-0500 Diastolic blood pressure 78 mm[Hg] Dr. Steven Tubbs Work Phone: [facility] Work Phone: 10-04-2021 12:10-0500 Heart rate 75 /min Dr. Steven Tubbs Work Phone: [facility] Work Phone: 10-04-2021 12:10-0500 Respiratory rate 16 /min Dr. Steven Tubbs Work Phone: [facility] Work Phone: 10-04-2021 12:10-0500 SaO2% (BldA) [Mass fraction] 97 % Dr. Steven Tubbs Work Phone: [facility] Work Phone: 10-04-2021 12:10-0500 Systolic blood pressure 148 mm[Hg] Dr. Steven Tubbs Work Phone: [facility] Work Phone: Encounters Encounter Date Encounter Type Care Provider Facility Start: 06-08-2025 ambulatory Chalclarence Deny Facility:[facility] Start: 06-02-2025 ambulatory Logan DELUNA Fa cility:[facility] Start: 06-01-2025 ambulatory [facility] Facility:[facility] Start: 05-26-2025 ambulatory Collin [place] Facility: [facility] Start: 05-26-2025 Dr. Alex Love MD -[facility] Start: 05-25-2025 End: 05-25-2025 Vicente Yeager DO -Endoscopy Work Phone: Start: 05-25-2025 End: 05-25-2025 ambulatory Jorge A Rinaldi MD Work Phone: -Endoscopy Start: 05-22-2025 Vicente Yeager DO -[facility]- [facility] Start: 04-20-2025 ambulatory Jorge A Rinaldi Facility:[facility] Start: 04-20-2025 End: 05-29-2025 Evaluation and management of inpatient Jorge A Rinaldi MD Work Phone: -Transitional Care Unit Start: 04-20-2025 End: 05-29-2025 Dr. Honorio Nettles MD -Transitional Care U nit Start: 04-08-2025 End: 04-20-2025 Evaluation and management of inpatient SHAUN CAMEJO Facility:[facility] Start: 04-08-2025 End: 04-08-2025 Dr. Shaun Camejo DO -Emergency Departmen t Work Phone: Start: 04-08-2025 End: 04-08-2025 Emergency department patient visit Jorge A Rinaldi MD Work Phone: -Emergency Department Work Phone: Start: 04-07-2025 End: 04-07-[address] Alex Love MD -[facility] Work Phone: Start: 04-07-2025 End: 04-07-2025 Dr. Alex Love MD -[facility] Work Phone: Start: 04-07-2025 End: 04-07-2025 ambulatory Jorge A Rinaldi MD Work Phone: [facility] Work Phone: Start: 04-07-2025 End: 04-07-2025 ambulatory Jorge A Rinaldi MD Work Phone: -Outpatient Bone Densitometry Start: 04-07-2025 End: 04-07-[address] Jorge A Rinaldi MD -Outpatient Bone Densitometry Work Phone: Start: 04-07-2025 End: 04-07-2025 Dr. Jorge A Rinaldi MD -Outpatient Bone Densitometry Work Phone: Start: 04-07-2025 End: 04-07-2025 ambulatory Jorge A Rinaldi Facility:[facility] Start: 04-02-[address] Alex Love MD -[facility] Start: 04-02-2025 Dr. Alex Love MD -[facility] Start: 03-10-2025 End: 03-10-[address] Alex Love MD -[facility] Work Phone: Start: 03-10-2025 End: 03-10-2025 Dr. Alex Love MD -[facility] Work Phone: Start: 03-10-2025 End: 03-10-2025 ambulatory Jorge A Rinaldi MD Work Phone: [facility] Work Phone: Start: 03-05-[address] Alex Love MD -[facility] Start: 02-09-2025 End: 02-09-[address] Alex Love MD -[facility] Work Phone: Start: 02-09-2025 End: 02-09-2025 Dr. Alex Love MD -[facility] Work Phone: Start: 02-09-2025 End: 02-09-2025 ambulatory Chalon Deny Facility:[facility] Start: 01-01-2025 Non-patient / Non-visit Princess Roque -[facility] Work Phone: Start: 01-01-2025 ambulatory Chalon Deny Facility:[facility] Start: 12-31-2024 End: 12-31-[address] Alex Love MD -[facility] Work Phone: Start: 12-31-2024 End: 12-31-2024 ambulatory Chalon Deny Facility:[facility] Start: 12-24-2024 End: 12-24-[address] Alex Love MD -[facility] Work Phone: Start: 12-24-2024 End: 12-24-2024 ambulatory Chalon Deny Facility:[facility] Start: 12-18-2024 End: 12-18-[address] Stiven Steele MD [facility] Neurology Work Phone: Start: 12-18-2024 End: 12-18-2024 ambulatory Stiven Steele Facility:[facility] Start: 12-01-2024 End: 12-01-2024 Patient encounter procedure Susanne Lopez CERTIFIED TUMOR REGISTRAR-C -[facility] Work Phone: Start: 12-01-2024 End: 12-01-2024 ambulatory Chalon Deny Facility:[facility] Start: 11-27-2024 End: 11-27-2024 Patient encounter procedure Susanne Lopez CERTIFIED TUMOR REGISTRAR-C -Cat Scan [facility] Work Phone: Start: 11-26-2024 End: 11-26-2024 Patient encounter procedure Susanne Lopez CERTIFIED TUMOR REGISTRAR-C -[facility] Work Phone: Start: 11-26-2024 End: 11-27-2024 ambulatory Chalon Deny Facility:[facility] Start: 09-24-2024 End: 09-24-2024 ambulatory Chalon Deny Facility:[facility] Start: 09-18-2024 End: 09-18-2024 ambulatory Steven Mejia NP Facility:[facility] Start: 08-26-2024 End: 08-26-2024 ambulatory Chalclarence Deny Facility:[facility] Start: 08-21-2024 End: 08-21-2024 ambulatory Collin Cintron Facility:[facility] Start: 06-24-2024 End: 06-24-2024 ambulatory Jorge A Deny Facility:[facility] Start: 10-09-2023 Registered Recurring DO Kathia Lynn Work Phone: [facility] Oncology Start: 10-09-2023 End: 10-09-2023 Patient encounter procedure DO Uyen Lynn Work Phone: [facility] Work Phone: Start: 10-04-2023 End: 10-04-2023 ambulatory DO Uyen Lynn Work Phone: [facility] Work Phone: Start: 10-04-2023 End: 10-04-2023 Patient encounter procedure DO Uyen Lynn Work Phone: [facility] Work Phone: Start: 09-18-2023 End: 09-18-2023 Patient encounter procedure DO Uyen Lynn Work Phone: [facility] Work Phone: Start: 09-18-2023 End: 09-18-2023 Patient encounter procedure DO Uyen Lynn Work Phone: [facility] Work Phone: Start: 09-11-2023 End: 09-11-2023 Patient encounter procedure DO Uyen Lynn Work Phone: [facility] Work Phone: Start: 08-14-2023 End: 08-14-2023 Patient encounter procedure DO Uyen Lynn Work Phone: [facility] Work Phone: Start: 07-17-2023 End: 07-17-2023 Patient encounter procedure DO Uyen Carroller Work Phone: [facility] Work Phone: Start: 06-19-2023 End: 06-19-2023 Patient encounter procedure DO Uyen Carroller Work Phone: [facility] Work Phone: Start: 05-22-2023 End: 05-22-2023 Patient encounter procedure DO Uyen Tapianger Work Phone: [facility] Work Phone: Start: 05-22-2023 Registered Recurring DO Kathia Carroller Work Phone: [facility] On[facility] Start: 05-21-2023 End: 05-21-2023 ambulatory DO Uyen M Shane Work Phone: [facility] Work Phone: Start: 05-21-2023 End: 05-21-2023 Patient encounter procedure DO Uyen Carroller Work Phone: [facility]-Pulmonary Services/Neurology Work Phone: Start: 05-17-2023 End: 05-17-2023 ambulatory DO Uyen M Shane Work Phone: [facility] Work Phone: Start: 05-17-2023 End: 05-17-2023 Patient encounter procedure DO Uyen Shane Work Phone: [facility] Start: 05-08-2023 Registered Recurring DO Kathia n Shane Work Phone: [facility] On[facility] Start: 05-08-2023 End: 05-08-2023 Patient encounter procedure DO Uyen Tapianger Work Phone: [facility] Work Phone: Start: 05-07-2023 End: 05-07-2023 ambulatory DO Uyen Carroller Work Phone: [facility] Work Phone: Start: 05-07-2023 End: 05-07-2023 Patient encounter procedure DO [facility]anger [facility] Start: 04-24-2023 Registered Recurring DO Kathia n Shane Work Phone: [facility] On[facility] Start: 04-24-2023 End: 04-24-2023 Patient encounter procedure DO Uyen Tapianger Work Phone: [facility] Work Phone: Start: 04-23-2023 End: 04-23-2023 ambulatory DO Uyen M Shane Work Phone: [facility] Work Phone: Start: 04-23-2023 End: 04-23-2023 Patient encounter procedure DO Uyen Carroller [facility] Work [facility] Start: 04-19-2023 End: 04-19-2023 Patient encounter procedure DO Uyen Tapianger Work Phone: [facility] Work Phone: Start: 04-09-2023 Registered Recurring DO Kathia n Shane Work Phone: [facility] On[facility] Start: 04-09-2023 End: 04-09-2023 Patient encounter procedure DO Uyenfany Tapianger Work Phone: [facility] Start: 04-03-2023 End: 04-03-2023 ambulatory DO Uyen M Shane Work Phone: [facility] Work Phone: Start: 04-03-2023 End: 04-03-2023 Patient encounter procedure DO Uyen Lynn Work Phone: [facility] Start: 04-03-2023 End: 04-03-2023 Patient encounter procedure DO Uyen Lynn Work Phone: 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 Start: 02-14-2023 End: 02-14-2023 Patient encounter procedure DO Uyen Lynn Work Phone: [facility] Start: 01-08-2023 End: 01-08-2023 Patient encounter procedure DO Uyen Lynn Work Phone: [facility] Start: 09-28-2022 End: 09-28-2022 ambulatory RAND CALZADA Facility:[facility] Start: 09-28-2022 End: 09-28-2022 Patient encounter procedure Rand Sd Zheng DO Work Phone: [facility] Comment on above: Localized enlarged l ymph nodes (Primary Dx); Breast cancer metastasized to axillary lymph node, left (HCC) Start: 09-14-2022 End: 09-14-2022 ambulatory ERIK NGUYEN Facility:[facility] Start: 09-14-2022 End: 09-14-2022 Subsequent hospital visit by physician Ct [facility] ([facility]) Work Phone: Radiology Comment on above: Localized enlarged l ymph nodes [R59.0] Start: 06-15-2022 End: 06-15-2022 ambulatory ERIK NGUYEN Facility:[facility] Start: 06-15-2022 End: 06-15-2022 Patient encounter procedure Rand Calzada DO Work Phone: [facility] Comment on above: Localized enlarged l ymph nodes (Primary Dx); Breast cancer metastasized to axillary lymph node, left (HCC) Start: 06-15-2022 End: 06-15-2022 Subsequent hospital visit by physician Diagnostic Mammo [facility] Mamm[facility] Comment on above: Breast cancer metast asized to axillary lymph node, left (HCC) [C50.912, C77.3] Start: 05-22-2022 Orders Only Ivette porter LPN Work Phone: [facility] Comment on above: 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 Start: 03-16-2022 End: 03-16-2022 Patient encounter procedure CERTIFIED TUMOR REGISTRAR-Jean Marie Mcgee CERTIFIED TUMOR REGISTRAR Work Phone: [facility] Start: 03-16-2022 Registered Recurring ROBERTO Mcgee CERTIFIED TUMOR REGISTRAR Work Phone: [facility] Start: 02-21-2022 Non-patient / Non-visit CERTIFIED TUMOR REGISTRAR-Jean Marie Mcgee CERTIFIED TUMOR REGISTRAR Work Phone: [facility] Start: 02-16-2022 End: 02-16-2022 Patient encounter procedure CERTIFIED TUMOR REGISTRAR-Jean Marie Kortney Arely CERTIFIED TUMOR REGISTRAR Work Phone: [facility] Start: 01-19-2022 End: 01-19-2022 Patient encounter procedure CERTIFIED TUMOR REGISTRAR-Jean Marie Mcgee CERTIFIED TUMOR REGISTRAR Work Phone: [facility] Start: 01-09-2022 End: 01-09-[address] Steven Tubbs Work Phone: [facility] Start: 01-02-2022 End: 01-02-[address] Steven Tubbs Work Phone: [facility] Start: 12-22-2021 End: 12-22-[address] Steven Tubbs Work Phone: [facility] Start: 12-08-2021 End: 12-08-2021 Subsequent hospital visit by physician Diagnostic Mammo [facility] Start: 11-23-2021 End: 11-23-[address] Steven Tubbs Work Phone: [facility] Start: 11-21-2021 End: 11-21-[address] Steven Tubbs Work Phone: [facility] Start: 11-17-2021 End: 11-17-[address] Steven Tubbs Work Phone: [facility] Start: 11-16-[address] Steven Tubbs Work Phone: [facility] Start: 11-15-2021 End: 11-15-[address] Steven Tubbs Work Phone: [facility] Start: 11-09-2021 End: 11-09-[address] Steven Tubbs Work Phone: [facility] Start: 11-07-2021 Non-patient / Non-visit Dr. Mariana Tubbs Work Phone: [facility] Start: 11-07-2021 End: 11-07-[address] Steven Tubbs [facility] Phone[facility] Start: 11-04-2021 End: 11-04-[address] Steven Tubbs Work Phone: [facility] Start: 11-02-2021 End: 11-02-[address] Steven Tubbs Work Phone: [facility] Start: 10-27-2021 End: 10-27-[address] Steven Tubbs Work Phone: [facility], Specimen Start: 10-27-2021 End: 10-27-[address] Steven Tubbs Work Phone: [facility] Start: 10-26-2021 End: 10-26-[address] Steven Tubbs Work Phone: [facility] Start: 10-04-2021 End: 10-04-[address] Steven Tubbs Work Phone: [facility] Procedures Date Procedure Procedure Detail Performing Clinician Start: 05-26-2025 Procedure Jorge A Rinaldi MD Work Phone: Start: 05-26-2025 Blood count smear mcrscp w/mnl difrntl wbc count Jorge A Rinaldi MD Work Phone: Start: 05-26-2025 Estimated creatinine clearance Jorge A avelar MD Work Phone: Start: 05-26-2025 Mean corpuscular hemoglobin concentration determination Jorge A Rinaldi MD Work Phone: Start: 05-26-2025 Nucleated red blood cell count procedure Jorge A Rinaldi MD Work Phone: Start: 05-26-2025 Platelet mean volume determination Darwin Rinaldi MD Work Phone: Start: 05-25-2025 Esophagogastroduodenoscopy Jorge A García Work Phone: Start: 05-19-2025 Blood count smear mcrscp w/mnl difrntl wbc count Jorge A Rinaldi MD Work Phone: Start: 05-19-2025 Estimated creatinine clearance Jorge A avelar MD Work Phone: Start: 05-19-2025 Mean corpuscular hemoglobin concentration determination Jroge A Rinaldi MD Work Phone: Start: 05-19-2025 Nucleated red blood cell count procedure Jorge A Rinaldi MD Work Phone: Start: 05-19-2025 Platelet mean volume determination Darwin Rinaldi MD Work Phone: Start: 05-15-2025 Videoswallow Jorge A Rinaldi MD Work Phone: Start: 05-14-2025 Plain x-ray of wrist Jorge A Rinaldi MD Work Phone: Start: 05-12-2025 Urine microscopy: red cells Jorge A Rinaldi MD Work Phone: Start: 05-12-2025 Urnls dip stick/tablet reagent auto microscopy Jorge A Rinaldi MD Work Phone: Start: 05-12-2025 Plain X-ray abdomen Jorge A Rinaldi MD Work Phone: Start: 05-12-2025 Urine culture Jorge A Rinaldi MD Work Phone: Start: 05-05-2025 Blood disorder - initial assessment Jorge A Rinaldi MD Work Phone: Start: 05-05-2025 Red blood cell morphology Jorge A Rinaldi MD Work Phone: Start: 04-29-2025 Urine culture Jorge A Rinaldi MD Work Phone: Start: 04-27-2025 Plain x-ray of wrist Jorge A Rinaldi MD Work Phone: Start: 04-23-2025 Assay of triglycerides Jorge A Rinaldi MD Work Phone: Start: 04-23-2025 Total cholesterol:HDL ratio measurement Jorge A Rinaldi MD Work Phone: Start: 04-20-2025 Assay of magnesium Johnson Beaver Zammit PA-C Work Phone: Start: 04-20-2025 Physiotherapy of chest Naserin M Emmanuel PRODUCTION HAND-MICROSTRATEGY BI DEVELOPER Work Phone: Start: 04-19-2025 Physiotherapy of chest Naserin M Emmanuel PRODUCTION HAND-MICROSTRATEGY BI DEVELOPER Work Phone: Start: 04-19-2025 Assay of magnesium Johnson Sd Zammit PA-C Work Phone: Start: 04-18-2025 Assay of magnesium Johnson Beaver Zammit PA-C Work Phone: Start: 04-18-2025 Physiotherapy of chest Naserin M Emmanuel PRODUCTION HAND-MICROSTRATEGY BI DEVELOPER Work Phone: Start: 04-17-2025 CARDIAC RHYTHM (SCANNED) Other Other OT Start: 04-17-2025 Assay of magnesium Johnson Beaver Zammit PA-C Work Phone: Start: 04-17-2025 Physiotherapy of chest Naserin M Emmanuel PRODUCTION HAND-MICROSTRATEGY BI DEVELOPER Work Phone: Start: 04-16-2025 Assay of magnesium Johnson Beaver Zammit PA-C Work Phone: Start: 04-16-2025 Physiotherapy of chest Naserin M Emmanuel PRODUCTION HAND-MICROSTRATEGY BI DEVELOPER Work Phone: Start: 04-15-2025 Dup-scan xtr veins unilateral/limited study Tyler Lantigua MD Work Phone: Start: 04-15-2025 Physiotherapy of chest Naserin M Emmanuel PRODUCTION HAND-MICROSTRATEGY BI DEVELOPER Work Phone: Start: 04-15-2025 Assay of magnesium Johnson Beaver Zammit PA-C Work Phone: Start: 04-14-2025 Radex wrist complete minimum 3 views Anabel Sarah MD Work Phone: Start: 04-14-2025 Radex wrist complete minimum 3 views Saloni Briggs MD Work Phone: Start: 04-14-2025 End: 04-14-2025 Radex shoulder complete minimum 2 views Tyler Lantigua MD Work Phone: Start: 04-13-2025 Lactate dehydrogenase ldh Lucila L Feliciano M D Work Phone: Start: 04-13-2025 Radiologic exam chest single view Homer Greco PA-C Work Phone: Start: 04-13-2025 Physiotherapy of chest Naserin Cha Emmanuel PRODUCTION HAND-MICROSTRATEGY BI DEVELOPER Work Phone: Start: 04-13-2025 Assay of magnesium Johnson Beaver Zammit PA-C Work Phone: Start: 04-12-2025 Radex spine cervical 2 or 3 views Eric Marshall MD Work Phone: Start: 04-12-2025 Ct thorax w/o contrast material Naskortney Cha Emmanuel PRODUCTION HAND-MICROSTRATEGY BI DEVELOPER Work Phone: Start: 04-12-2025 End: 04-12-2025 Physiotherapy of chest Naserin Cha Emmanuel PRODUCTION HAND-MICROSTRATEGY BI DEVELOPER Work Phone: Start: 04-12-2025 Respiratory virus DNA+RNA [Identifier] in Unspecified specimen by LANE with probe detection Vicky Greco PA-C Work Phone: Start: 04-12-2025 Radiologic exam chest single view Melonie Black PA-C Start: 04-12-2025 Assay of magnesium Johnson Beaver Zammit PA-C Work Phone: Start: 04-11-2025 Retired procedure Taylor Arnold PRODUCTION HAND-MICROSTRATEGY BI DEVELOPER Work Phone: Start: 04-11-2025 Blood count complete automated Taylor Arnold PRODUCTION HAND-MICROSTRATEGY BI DEVELOPER Work Phone: Start: 04-11-2025 End: 04-11-2025 Plateletpheresis Melonie L Ciupak PA-C Start: 04-11-2025 Prothrombin time Melonie L Ciupak PA-C Start: 04-11-2025 Creatine kinase total Melonie L Ciupak PA-C Start: 04-11-2025 Artl cathj/cannulj mntr/transfusion spx prq Melonie L Ciupak PA-C Start: 04-10-2025 Radiologic exam chest single view Eric Marshall MD Work Phone: Start: 04-10-2025 Glucose measurement, blood Ryan greer MD, PhD Work Phone: Start: 04-10-2025 Calcium ionized Kendrick Tripp MD Work Phone: Start: 04-10-2025 End: 04-10-2025 TRANSFUSE OR RED BLOOD CELLS Eli Smart MD Work Phone: Start: 04-10-2025 Calcium ionized Keke Kelly MD Work Phone: Start: 04-10-2025 End: 04-10-2025 TRANSFUSE OR PLASMA Eli Smart MD Work Phone: Start: 04-10-2025 [...] Phone: Start: 04-10-2025 Blood count hematocrit Elie Eubanks Emmanuel PRODUCTION HAND-MICROSTRATEGY BI DEVELOPER Work Phone: Start: 04-10-2025 IMPLANT RECORD (SCANNED) Other Other OT Start: 04-10-2025 End: 04-10-2025 Transfusion of packed red blood cells Edilkortney Eubanks Emmanuel PRODUCTION HAND-MICROSTRATEGY BI DEVELOPER Work Phone: Start: 04-10-2025 Prothrombin time Dorene H Meaghanrisa PRODUCTION HAND-MICROSTRATEGY BI DEVELOPER Work Phone: Start: 04-10-2025 Assay of magnesium Johnson Treadwellit PA-C Work Phone: Start: 04-10-2025 Hepatic function panel Dorene Lovelace PRODUCTION HAND-MICROSTRATEGY BI DEVELOPER Work Phone: Start: 04-09-2025 End: 04-09-2025 Mri spinal canal cervical w/o contrast matrl Treasure Ricky Dye PRODUCTION HAND-MICROSTRATEGY BI DEVELOPER Work Phone: Start: 04-09-2025 Radiologic exam esophagus single contrast study Johnson Dealmmit PA-C Work Phone: Start: 04-09-2025 Blood count hematocrit Jonhson Treadwellit PA-C Work Phone: Start: 04-09-2025 Echo tthrc r-t 2d w/wom-mode compl spec&colr d Johnson Treadwellit PA-C Work Phone: Start: 04-09-2025 IP CONSULT TO SPEECH THERAPY Johnson Deal mmit PA-C Work Phone: Start: 04-09-2025 Radiologic exam chest single view Archan a P Hinduja MD Work Phone: Start: 04-09-2025 ABORH TYPE RECONFIRMATION Kortney Cain DO Work Phone: Start: 04-09-2025 Drug tst prsmv instrmnt chem analyzers pr date David Patterson MD Work Phone: Start: 04-09-2025 EXTRA MICRO David Patterson MD Work Phone: Start: 04-09-2025 Hemoglobin glycosylated a1c Johnson mahajan PA-C Work Phone: Start: 04-09-2025 URINALYSIS REFLEX TO CULTURE David eric MD Work Phone: Start: 04-09-2025 Urnls dip stick/tablet reagent auto microscopy David Patterson MD Work Phone: Start: 04-08-2025 End: 04-09-2025 Transfusion of packed red blood cells Treasure D Dye PRODUCTION HAND-MICROSTRATEGY BI DEVELOPER Work Phone: Start: 04-08-2025 Ct angio abd&plvis cntrst mtrl w/wo cntrst img Treasure D Dye PRODUCTION HAND-MICROSTRATEGY BI DEVELOPER Work Phone: Start: 04-08-2025 Ct angiography chest w/contrast/noncontrast Treasure D Dye PRODUCTION HAND-MICROSTRATEGY BI DEVELOPER Work Phone: Start: 04-08-2025 Radex shoulder complete minimum 2 views Johnson Isbell PA-C Work Phone: Start: 04-08-2025 Clotting factor viii vw factor antigen Carlos Eduardo Oscar MD, PhD Work Phone: Start: 04-08-2025 Blood count complete automated Treasure D Dye PRODUCTION HAND-MICROSTRATEGY BI DEVELOPER Work Phone: Start: 04-08-2025 Ecg routine ecg w/least 12 lds trcg only w/o i&r David Patterson MD Work Phone: Start: 04-08-2025 Glucose measurement, blood Ryan greer MD, PhD Work Phone: Start: 04-08-2025 Antibody screen Elliot Murillo MD Work Phone: Start: 04-08-2025 Radiologic examination pelvis 1/2 views David Patterson MD Work Phone: Start: 04-08-2025 Radiologic exam chest single view Pavan Patterson MD Work Phone: Start: 04-08-2025 Glucose measurement, blood Ryan greer MD, PhD Work Phone: Start: 04-08-2025 Antibody screen SHAUN CAMEJO Comment on above: Performed By: #### XM #### [facility] ([facility]) [address] [place] [address] Start: 04-08-2025 Assay of thyroid stimulating hormone tsh David Patterson MD Work Phone: [...] Work Phone: Start: 04-08-2025 LAVENDER TOP TUBE David Patterson MD Work Phone: Start: 04-08-2025 Lipid panel Johnson Isbell PA-C Work Phone: Start: 04-08-2025 LT BLUE TOP TUBE David Patterson MD Work Phone: Start: 04-08-2025 MINT GREEN TOP TUBE David Patterson MD Work Phone: Start: 04-08-2025 PREPARE TO TRANSFUSE OR PLASMA Eli Smart MD Work Phone: Start: 04-08-2025 PREPARE TO TRANSFUSE OR RED BLOOD CELLS Eli Smart MD Work Phone: Start: 04-08-2025 PREPARE TO TRANSFUSE PLATELET Melonie Randi Aj iupak PA-C Start: 04-08-2025 PREPARE TO TRANSFUSE RED BLOOD CELLS Treasure Whitaker PRODUCTION HAND-MICROSTRATEGY BI DEVELOPER Work Phone: Start: 04-08-2025 RAINBOW DRAW David Patterson MD Work Phone: Start: 04-08-2025 Blood culture Jorge A Rinaldi MD Work Phone: Start: 04-08-2025 Urine culture Jorge A Rinaldi MD Work Phone: Start: 04-08-2025 Plain X-ray of tibia and fibula Jorge A peterson MD Work Phone: Start: 04-08-2025 Urine microscopy: red cells Jorge A Rinaldi MD Work Phone: Start: 04-08-2025 Urnls dip stick/tablet reagent auto microscopy Jorge A Rinaldi MD Work Phone: Start: 04-08-2025 End: 04-08-2025 Assay of lactate Jorge A Rinaldi MD Work Phone: Start: 04-08-2025 CT angiography of head and neck Jorge A peterson MD Work Phone: Start: 04-08-2025 CT cervical spine without contrast Darwin Rinaldi MD Work Phone: Start: 04-08-2025 CT of face Jorge A Rinaldi MD Work Phone: Start: 04-08-2025 CT of head without contrast Jorge A Rinaldi MD Work Phone: Start: 04-08-2025 CT of thorax, abdomen and pelvis with contrast Jorge A Rinaldi MD Work Phone: Start: 04-08-2025 Calculation of international normalized ratio Jorge A Rinaldi MD Work Phone: Start: 04-08-2025 Estimated creatinine clearance Jorge A avelar MD Work Phone: Start: 04-08-2025 Mean corpuscular hemoglobin concentration determination Jorge A Rinaldi MD Work Phone: Start: 04-08-2025 Nucleated red blood cell count procedure Jorge A Rinaldi MD Work Phone: Start: 04-08-2025 Platelet mean volume determination Darwin Rinaldi MD Work Phone: Start: 04-07-2025 Dual energy X-ray absorptiometry Jorge A Rinaldi MD Work Phone: Start: 04-02-2025 Blood count smear mcrscp w/mnl difrntl wbc count Jorge A Rinaldi MD Work Phone: Start: 04-02-2025 Estimated creatinine clearance Jorge A avelar MD Work Phone: Start: 04-02-2025 Mean corpuscular hemoglobin concentration determination Jorge A Rinaldi MD Work Phone: Start: 04-02-2025 Nucleated red blood cell count procedure Jorge A Rinaldi MD Work Phone: Start: 04-02-2025 Platelet mean volume determination Darwin Rinaldi MD Work Phone: Start: 03-05-2025 Estimated creatinine clearance Jorge A avelar MD Work Phone: Start: 12-17-2024 CA 125 measurement Jorge A Rinaldi MD Work Phone: Start: 12-10-2024 Procedure Jorge A Rinaldi MD Work Phone: Start: 11-27-2024 CT of thorax and abdomen with contrast Jorge A Rinaldi MD Work Phone: Start: 11-26-2024 Measurement of renal function Jorge A rust MD Work Phone: Comment on above: GFR Calc Start: 11-06-2023 Allergen spec ige crude allergen extract each Jorge A Rinaldi MD Work Phone: Start: 10-04-2023 CT of chest and abdomen DO Uyen oliva Work Phone: Start: 05-08-2023 Trichomonas screening test Esclarence Deny García Work Phone: Start: 03-23-2023 HER2 (4B5) BY IHC Rand Calzada DO Work Phone: Start: 03-23-2023 Level iv surg pathology gross&microscopic exam Rand A Zheng DO Work Phone: Start: 02-27-2023 PET study for localization of tumor DO Uyen Lynn Work Phone: Start: 09-14-2022 Ct thorax w/contrast material Rand Beaver Zheng DO Work Phone: Start: 09-14-2022 Creatinine [Mass/volume] in Serum or Plasma [facility] Start: 06-15-2022 Us breast uni real time with image limited Rand A Zheng DO Work Phone: Start: 06-15-2022 LOLIS DIAG W TAVON LEFT Rand A Zheng DO Work Phone: Start: 01-09-[address] Steven Tubbs Work Phone: Start: 12-08-2021 SURGICAL PATHOLOGY Rand Sd Zheng DO Work Phone: Start: 12-08-2021 SURGICAL PATHOLOGY, CONVERTED Rand A Zheng DO Work Phone: Start: 12-08-2021 Digital breast tomosynthesis bilateral Rand A Zheng DO Work Phone: Start: 12-08-2021 Us breast uni real time with image limited Rand A Zheng DO Work Phone: Start: 11-21-2021 MRI of brain with contrast Dr. Steven stover Work Phone: Start: 11-16-2021 Positron emission tomography with computed tomography Dr. Steven Tubbs Work Phone: Start: 11-07-2021 CT of thorax with contrast Dr. Steven stover Work Phone: Start: 11-04-2021 Radionuclide whole body bone study Dr. Aleksandar Tubbs Work Phone: Start: 10-26-[address] Steven gutierrez Work Phone: Start: 10-26-2021 Screening mammography of bilateral breasts Dr. Steven Tubbs Work Phone: Urine culture CERTIFIED TUMOR REGISTRAR-C Kortney Barn er CERTIFIED TUMOR REGISTRAR Work Phone: Plan of Treatment Date Care Activity Detail Author Start: 10-21-2025 Tetanus vaccination [facility] Start: 06-15-2025 Influenza vaccination [facility] Start: 05-29-2025 Patient discharge [facility] Start: 05-28-2025 Developing a treatme nt plan [facility] Start: 05-28-2025 Speech therapy management [facility] Start: 05-26-2025 End: 05-26-2025 ambulatory [facility] [place] Start: 05-26-2025 Patient discharge [facility] Start: 05-19-2025 Speech therapy [facility] Start: 05-19-2025 Developing a treatme nt plan [facility] Start: 05-18-2025 Development of care plan [facility] Start: 05-15-2025 Referral to gastroenterology service [facility] Start: 05-13-2025 Referral to gastroenterology service [facility] Start: 05-07-2025 End: 05-07-2025 ambulatory [facility] Start: 05-01-2025 [facility] Start: 05-01-2025 End: 05-01-2025 ambulatory [facility] [place] Start: 04-27-2025 [facility] Start: 04-23-2025 Speech therapy [facility] Start: 04-23-2025 [facility] Start: 04-22-2025 Verification routine [facility] Start: 04-21-2025 Speech therapy management [facility] Start: 04-21-2025 Development of care plan [facility] Start: 04-21-2025 Developing a treatme nt plan [facility] Start: 04-21-2025 Speech therapy assessment [facility] Start: 04-20-2025 Admission procedure [facility] Start: 04-20-2025 Introduction of urin abiodun catheter [facility] Start: 04-20-2025 Measuring intake and output [facility] Start: 04-20-2025 Patient referral to dietitian [facility] Start: 04-20-2025 Referral to occupati onal therapist [facility] Start: 04-20-2025 Referral to service [facility] Start: 04-20-2025 Vital signs measurements [facility] Start: 04-20-2025 End: 04-20-2025 [facility] Start: 04-08-2025 Bacteria identified in Blood by Culture Blood Culture [facility] Start: 04-08-2025 Bacteria identified in Urine by Culture Urine Culture [facility] Start: 04-08-2025 [facility] Start: 04-08-2025 End: 04-08-2025 [facility] Start: 12-24-2024 Patient referral [facility] Work Phone: Start: 06-15-2024 Covid-19 Vaccine ( season) Covid-19 Vaccine ( season) [facility] Start: 06-15-2024 Influenza vaccination Influenz a Vaccine (#1) [facility] Start: 06-15-2024 [facility] Start: 10-15-2023 Advance Directive Discussion Advance Directive Discussion [facility] Start: 06-15-2023 Influenza vaccination INFLUENZ A (Season Ended) [facility] Start: 04-06-2023 End: 06-06-2023 CREATININE BLD CREATININE BLD Lab Routine Expected: 04/06/2023, Expires: 06/06/2023 [facility] Work Phone: Comment on above: Expected: 04/06/2023 , Expires: 06/06/2023 Start: 12-08-2022 Screening for malign ant neoplasm of breast [facility] Start: 10-15-2022 ADVANCE DIRECTIVE DISCUSSION ADVANCE DIRECTIVE DISCUSSION [facility] Start: 10-15-2022 DEPRESSION ASSESSMENT DEPRESSION ASS ESSMENT [facility] Start: 06-15-2022 End: 08-15-2022 CREATININE BLD CREATININE BLD Lab Routine Breast cancer metastasized to axillary lymph node, left (HCC) Expected: 06/15/2022, Expires: 08/15/2022 [facility] Work Phone: Comment on above: Expected: 06/15/2022 , Expires: 08/15/2022 Start: 06-15-2022 Influenza vaccination INFLUENZA (#1) [facility] Start: 10-27-2021 Patient referral [facility] Work Phone: Start: 10-15-2021 ADVANCE DIRECTIVE DISCUSSION ADVANCE DIRECTIVE DISCUSSION [facility] Start: 10-15-2021 DEPRESSION ASSESSMENT DEPRESSION ASS [facility] Start: 03-24-2020 [facility] Start: 2018 RSV Vaccine (1 - 1-d ose 75+ series) RSV Vaccine (1 - 1-dose 75+ series) [facility] Start: 2018 [facility] Start: 10-16-2014 Pneumococcal vaccination [facility] Start: 2008 BONE DENSITY BONE DENSITY [facility] Start: 2008 Pneumococcal Vaccine : 65+ (1 of 1 - PCV) Pneumococcal Vaccine: 65+ (1 of 1 - PCV) [facility] Start: 2008 PNEUMOCOCCAL: 65+ (1 - PCV) PNEUMOCOCCAL: 65+ (1 - PCV) [facility] Start: 2008 Screening for osteoporosis Bon e Density Screening [facility] Start: 1993 SHINGRIX VACCINE (1 of 2) DOSHI GRIX VACCINE (1 of 2) [facility] Start: 1988 DIABETES SCREEN DIABETES SCREEN [facility] Start: 1988 Diabetes Screening Diabetes Screenin g [facility] Start: 1988 Screening for malign ant neoplasm of colon [facility] Start: 1964 Screening for malign ant neoplasm of cervix [facility] Start: 1962 Urine microalbumin profile [facility] Start: 1961 Anxiety Screening Anxiety Screening [facility] Start: 1961 Depression Screening Depression Scre ening [facility] Start: 1961 HEPATITIS C SCREENING HEPATITIS C SC RUBISARAH [facility] Start: 1955 Adult depression scr eening assessment DEPRESSION SCREENING [facility] Start: 02-11-1946 COVID-19 VACCINE (#1) COVID-19 VACCI NE (#1) [facility] Start: 1943 Screening for osteoporosis [facility] Anion gap in Serum o r Plasma [facility] ARTERIAL LINE [facility] BUN/Creatinine ratio [facility] Calcium [Mass/volume ] in Serum or Plasma [facility] Cancer Ag 125 [Units/volume] in Serum or Plasma [facility] Cancer Ag 125 [Units/volume] in Serum or Plasma [facility] Cancer Ag 15-3 [Pres ence] in Serum or Plasma [facility] Cancer Ag 15-3 [Pres ence] in Serum or Plasma [facility] Cancer Ag 27-29 [Pre sence] in Serum or Plasma [facility] Cancer Ag 27-29 [Pre sence] in Serum or Plasma [facility] Carbon dioxide, tota l [Moles/volume] in Central venous blood [facility] Carcinoembryonic Ag [Mass/volume] in Serum or Plasma [facility] Carcinoembryonic Ag [Mass/volume] in Serum or Plasma [facility] CBC W Auto Different ial panel - Blood [facility] CBC W Auto Different ial panel - Blood [facility] CBC W Auto Different ial panel - Blood [facility] CBC W Auto Different ial panel - Blood [facility] CBC W Auto Different ial panel - Blood [facility] Comprehensive metabo lic 2000 panel - Serum or Plasma [facility] Creatinine [Mass/vol ume] in Serum or Plasma [facility] CT Chest W contrast IV [facility] End: 07-15-2023 CT CHEST W IVCON CT CHEST W IVCON Radiology Routine Localized enlarged lymph nodes 1 Occurrences starting 06/15/2022 until 07/15/2023 [facility] Work Phone: Comment on above: 1 Occurrences starti ng 06/15/2022 until 07/15/2023 End: 11-04-2023 CT CHEST W IVCON CT CHEST W IVCON Radiology Routine Localized enlarged lymph nodes 1 Occurrences starting 10/06/2022 until 11/04/2023 [facility] Work Phone: Comment on above: 1 Occurrences starti ng 10/06/2022 until 11/04/2023 End: 04-13-2025 CYTOLOGY, NON-PROGRAM OFFICER [facility] Work Phone: End: 06-21-2023 Diagnostic mammography computer-aided detcj uni [facility] DIAGNOSTIC LT Radiology Routine Breast cancer metastasized to axillary lymph node, left (HCC) 1 Occurrences starting 05/22/2022 until 06/21/2023 [facility] Work Phone: Comment on above: 1 Occurrences starti ng 05/22/2022 until 06/21/2023 End: 04-08-2025 ED US FAST [facility] Erythrocyte mean corpuscular volume determination [facility] GENERAL CVC - INTRODUCER/DIALYSIS/STANDA RD [facility] Work Phone: Glucose [Mass/volume ] in Serum or Plasma [facility] Hematocrit [Volume Fraction] of Blood [facility] Hemoglobin [Mass/vol ume] in Blood [facility] Lactate dehydrogenas e measurement [facility] Lactate dehydrogenas e measurement [facility] Lactate dehydrogenas e measurement [facility] Leukocytes [#/volume ] in Blood [facility] Magnesium [Mass/volu me] in Serum or Plasma [facility] Mean corpuscular hemoglobin concentration determination [facility] Mean corpuscular hemoglobin determination [facility] Measurement of renal function [facility] Neutrophil count [facility] Neutrophil percent differential count [facility] Patient referral [facility] Work Phone: Platelets [#/volume] in Blood [facility] Potassium measurement [facility] Procedure [facility] Procedure [facility] PT Unspecified body region [facility] End: 04-08-2025 PV FLUOROSCOPY OR [facility] Red blood cell count [facility] Red cell distributio n width determination [facility] End: 04-10-2025 RF Less than 1 hour [facility] End: 04-14-2025 RF Less than 1 hour [facility] Work Phone: Serum chloride measurement [facility] Sodium measurement [facility] Troponin T.cardiac [Mass/volume] in Serum or Plasma by High sensitivity method [facility] Urea nitrogen [Mass/volume] in Serum or Plasma [facility] Urine culture [facility] End: 06-21-2023 Us breast uni real time with image limited US BREAST LTD LT Radiology Routine Breast cancer metastasized to axillary lymph node, left (HCC) 1 Occurrences starting 05/22/2022 until 06/21/2023 [facility] Work Phone: Comment on above: 1 Occurrences starti ng 05/22/2022 until 06/21/2023 [facility] Immunizations Immunization Date Immunization Notes Care Provider [facility] 08-01-2024 influenza, high dose seasonal, preservative-free Jorge A Rinaldi MD Work Phone: [facility] 08-28-2023 Influenza High-Dose Quadrivalent Jorge A Rinaldi MD Work Phone: [facility] 09-28-2021 Covid (Pfizer) Jorge A García Work Phone: [facility] 09-15-2021 influenza, injectabl e, quadrivalent, preservative free Jorge A Rinaldi MD Work Phone: [facility] 02-10-2021 Covid (Moderna) Jorge A Rinaldi MD Work Phone: [facility] 01-31-2021 Covid (Pfizer) Jorge A García Work Phone: [facility] 01-13-2021 Josafatid (Moderna) Jorge A Rinaldi MD Work Phone: [facility] 12-13-2020 Covid (Pfizer) Jorge A García Work Phone: [facility] 08-17-2020 Influenza High-Dose Quadrivalent Jorge A Rinaldi MD Work Phone: [facility] 08-14-[address] Steven Tubbs Work Phone: [facility] 08-14-2020 influenza virus vaccine, unspecified formulation Ct (I-Stat) Work Phone: [facility] 01-28-2020 zoster vaccine recombinant Jorge A Rinaldi MD Work Phone: [facility] 09-03-2019 influenza, high dose seasonal, preservative-free Jorge A Rinaldi MD Work Phone: [facility] 07-09-2018 influenza, injectabl e, quadrivalent, preservative free Jorge A Rinaldi MD Work Phone: [facility] 07-02-2018 influenza, high dose seasonal, preservative-free Jorge A Rinaldi MD Work Phone: [facility] 06-25-2017 influenza, injectabl e, quadrivalent, preservative free Jorge A Rinaldi MD Work Phone: [facility] 07-20-2016 influenza, injectabl e, quadrivalent, preservative free Jorge A Rinaldi MD Work Phone: [facility] 10-21-2015 tetanus toxoid, redu ruben diphtheria toxoid, and acellular pertussis vaccine, adsorbed Jorge A Rinaldi MD Work Phone: [facility] 10-16-2013 pneumococcal conjuga te vaccine, 13 valent Jorge A Rinaldi MD Work Phone: [facility] Payers Date Payer Category Payer Self-pay [id number] 2016 Managed Care (unspecified) [id number] 2016 Unknown [facility] SUPPLEMENT [id number] 2016-Present [phone] [address] [place] [address] Indemnity [id number] 2008 Medicare [id number] 2008 Medicare [id number] 2008 Medicare [id number] 2008 Unknown [id number] 1943 Unknown [id number] [id number]. 2.594 Unknown [id number] 2.840.1.797696.3.579. 2.462 Unknown [id number] .840.1.440573.3.579. 2.462 Unknown [id number] 2.840.1.896369.3.579. 2.462 Unknown [id number] 2.840.1.812909.3.579. 2.462 Unknown [id number] 2.840.1.449793.3.579. 2.462 Unknown [id number] 2.16840.1.012681.3.579. 2.462 Unknown [id number] 2.16840.1.838373.3.579. 2.462 Unknown [id number] 2.16840.1.197148.3.579. 2.462 Unknown [id number] 2.16840.1.250529.3.579. 2.462 Unknown [id number] 2.16840.1.897576.3.579. 2.462 Unknown [id number] 2.16.840.1.485254.3.579. 2.462 Unknown [id number] 2.16.840.1.201476.3.579. 2.462 Unknown [id number] 2.16.840.1.092437.3.579. 2.462 Unknown [id number] 2.16.840.1.846294.3.579. 2.462 Unknown [id number] 2.16.840.1.297703.3.579. 2.462 Unknown [id number] 2.16.840.1.726066.3.579. 2.462 Unknown [id number] 2.16.840.1.180057.3.579. 2.462 Unknown [id number] 2.16.840.1.974261.3.579. 2.462 Unknown [id number] 2.16.840.1.152649.3.579. 2.462 Unknown [id number] 2.16.840.1.058049.3.579. 2.462 Unknown [id number] 2.16.840.1.954435.3.579. 2.462 Unknown [id number] 2.16.840.1.806042.3.579. 2.462 Unknown [id number] 2.16.840.1.078821.3.579. 2.462 Unknown [id number] 2.16.840.1.482143.3.579. 2.462 Unknown [id number] 2.16.840.1.450943.3.579. 2.462 Social History Date Type Detail Facility Start: 01-02-2022 End: 09-18-2023 Tobacco smoking status NHIS Unknown if ever smoked [facility] Start: 12-01-2020 None [facility] Start: 12-01-2020 Spouse/ Signif icant Other [facility] Start: 12-01-2020 Non-smoker [facility] Start: 1945 Sex Assigned At Female [facility] Start: 09-03-2020 End: 04-08-2025 Tobacco smoking status NHIS Never smoked tobacco [facility] Start: 09-03-2020 End: 06-15-2022 Tobacco use and exposure Smokeless tobacco non-user [facility] Start: 1945 Sex Assigned At Not on file [facility] Start: 06-15-2022 End: 04-09-2025 History of Social function [facility] Start: 06-15-2022 End: 04-09-2025 Tobacco use panel [facility] National Score (1-100), lower number is lower risk Not on file [facility] Start: 11-08-2021 End: 12-08-2021 Exposure to SARS-CoV-2 (event) Not sure [facility] Start: 04-08-2025 Sex Female (finding) [facility] Start: 04-21-2025 Tobacco smoking status NHIS Current some day smoker [facility] Start: 05-25-2025 Cigars;Non-smoker [facility] Medical Equipment Procedure Code Equipment Code Equipment Origin al Text Equipment Identifier Dates LAURIE,CEMENT [id number] FDA Start: 04-22-2018 DOUGH,CEMENT [id number] FDA [...] 04-10-2025 [id number] Start: 04-10-2025 [id number] Start: 04-10-2025 FDA Start: 04-22-2018 FDA Start: 04-22-2018 FDA Start: 04-22-2018 FDA Start: 04-22-2018 FDA Start: 04-22-2018 FDA Start: 04-22-2018 FDA Start: 04-22-2018 FDA Start: 04-22-2018 FDA Start: 04-22-2018 FDA Start: 04-22-2018 FDA Start: 04-22-2018 FDA Start: 04-22-2018 Goals Date Patient Goal Desired Activity /State Functional Status Date Assessment Result Facility 05-29-2025 Functional status [facility] Work Phone: 05-25-2025 Functional status [facility] Work Phone: Mental Status Date Assessment Result Facility 05-29-2025 Cognitive function Voice/Name [facility] Work Phone: 05-25-2025 Cognitive function Awake;Alert;Appropriat [facility] Work Phone: 05-25-2025 Cognitive function Voice/Name [facility] Work Phone: 05-25-2025 Cognitive function Voice/Name [facility] Work Phone: 05-22-2025 Cognitive function Appropriate;Cooperativ [facility] Work Phone: Clinical Notes 12-08-2021 to 05-26-2025 Note Date & Type Note Facility 05-26-2025 Discharge summary Note Date/Time May 26, 2025 8:45pm [facility] Medical Records Department [address] [place] [address] Discharge Summary 05/26/252035 MR#: [id number] Acct: [id number] Name: ANAY SAMUELS Rep #:[id number] : 1945 79 From: Honorio Nettles MD PCP: Dr. Jorge A Rinaldi MD Status:ADM IN Location: [place] [id number]-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 Continuation of Home Therapy 075 (Given - Provider: Carolina Marinas, RN) 0833 (Given - Provider: Kathleen Oviedo RN) 0910 (Given - Provider: Parul Fontanez, PITO) Senna (SENOKOT) tablet 8.6 mg(Linked Group 3) 8.6 mg, Oral, DAILY, First dose on Ayala 04/09/25 at 0900, Until Discontinued 0759 (Hold - [...] on Sun04/13/25 at 0818, Until Sun04/20/25 at 1913, Shortness of Breath, Respiratory Distress, Wheezing Labetalol [...] VIAL. Discard remaining contents after one use. 034 (Given - Provider: Abby Johnson, PITO)2351 (Given - Provider: Greer Newell RN) Methocarbamol (ROBAXIN) tablet 500 mg 500 mg, Oral, 3 TIMES DAILY NEEDED, Starting on Sun04/16/25 at 0828, Until Sun04/20/25 at 1913, Muscle spasms 161 (Given - Provider: Parul Fontanez RN) Ondansetron [...] Severe Pain 2032 (Given - Provider: Abby Johnson, PITO) Polyethylene glycol (MIRALAX) packet 17 g(Linked Group 7) 17 g, Oral, DAILY NEEDED, Starting on Sun04/08/25 at 1841, Until Sun04/20/25 at 1913, Constipation If No Bowel Movement in 48 Hours, after bisacodyl Prochlorperazine (COMPAZINE) injection 10 mg 10 mg, Intravenous, EVERY 4 HOURS NEEDED, Starting on Sun04/10/25 at 2010, Until Sun04/20/25 at 191, Nausea / Vomiting, 2nd line, Maximum 40mg/day. [...] Until Sun04/20/25 at 191, See administration instructions, Higher dose may be [...] on Sun04/10/25 at 2352, Until Sun04/20/25 at 191, See admininstration instructions, Use as initial dose [...] on Sun04/16/25 at 0828, Until Sun04/20/25 at 1914, Moderate Pain Group 7: Polyethylene glycol (MIRALAX) packet 17 gJump to med 17 g, Oral, DAILY NEEDED, Starting on 04/08/25 at 1841, Until 04/20/25 at 1914, Constipation If No Bowel Movement in 48 [...] BE BASED ON THE PRIMARY CLINICAL RECORDS. [employer] provides no warranty or guarantee of the accuracy or completeness of information in this document.
[2025-06-08 08:34] LABS: Hematocrit 31.5 % (37-47); Hemoglobin 10.4 g/dL (12.0-15.0); Immature Granulocytes Count 0.140 X10^3/uL (0.0-0.0); Mean Corp Hgb Conc 33.0 g/dL (32-36); Mean Corpuscular Volume 99.4 fL (81-99); Mean Platelet Vol. 8.2 fl (6.2-12.0); NRBC Flagged by Analyzer 0 % (0-5); POSITIVE MORPHOLOGY YES; Platelet Count 235 K/mm3 (150-450); RBC Distribution Width CV 19.4 % (11.6-14.6); RBC Distribution Width SD 70.6 fl (35.1-43.9); Red Blood Count 3.17 M/mm3 (4.2-5.4); White Blood Count 7.1 K/mm3 (4.4-11.0)
[2025-06-08 08:35] LABS: Differential Indicated SCAN CRITERIA MET
[2025-06-08 09:24] LABS: Anisocytosis 2+; Differential Comment SCANNED
[2025-06-08 09:31] LABS: Anion Gap 11 (5-15); BUN 17 mg/dL (4-19); BUN/Creat Ratio 31.1 RATIO (10-20); Calcium,Total 9.2 mg/dL (7.6-11.0); Carbon Dioxide 24.2 mmol/L (21.0-32.0); Chloride 103 mmol/L (98-108); Glucose 84 mg/dL (70-99); Potassium 4.6 mmol/L (3.3-5.1)
[2025-06-10 12:00] LABS: LDH 310 U/L (84-246)
== END ==
LOC: OLS.WHLTCC 05:00
PROVIDERS: Internal Medicine Medical Oncology; PCP Family Medicine; Visit Provider Internal Medicine
DX: C50.912 Malignant neoplasm of unspecified site of left female breast (principal); N39.0 Urinary tract infection, site not specified; I69.354 Hemiplegia and hemiparesis following cerebral infarction affecting left non-dominant side
CPT/HCPCS: 36415; 80048; 83615; 85025

== ENCOUNTER → 2025-06-16 | Outpatient (REF) | payer MEDICARE, BC, SELFPAY ==
--- OUTSIDE RECORDS SUMMARY | 2025-06-16 04:07 | XMS RPT_ITS | CCD ---
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 27.0-32.0 [facility] Monocyte percentageOrdered B y: Logan Ellison on 06-08-2025 Monocytes/100 WBC (Bld) 8.9 % 0-10 [facility] Neutrophil percentageOrdered By: dank Ellison on 06-08-2025 Neutrophils/100 WBC (Bld) 58.1 % 47-70 [facility] No Panel InformationOrdered By: Logan Ellison on 06-08-2025 2+ [facility] Platelet countOrdered By: Veronica celinegrey Ellison on 06-08-2025 Platelets (Bld) [#/Vol] 235 10*3/uL 150-450 [facility] Potassium measurement (mass/ volume)Ordered By: Logan Ellison on 06-08-2025 Potassium (Unsp spec) [Mass/Vol] 4.6 mmol/L 3.3-5.1 [facility] RBC Auto (Bld) [#/Vol]Ordere d By: Logan Ellison on 06-08-2025 RBC (Bld) [#/Vol] 3.17 10*6/uL Low 4.2-5.4 [facility] Serum creatinine measurement (mass/volume)Ordered By: Logan Ellison on 06-08-2025 Creatinine [Mass/Vol] 0.54 mg/dL Low 0.70-1.20 [facility] Serum glucose measurement (m ass/volume)Ordered By: Logan Ellison on 06-08-2025 Glucose [Mass/Vol] 84 mg/dL 70-99 [facility] Serum or plasma calcium brandan urement (mass/volume)Ordered By: Logan Ellison on 06-08-2025 Calcium [Mass/Vol] 9.2 mg/dL 7.6-11.0 [facility] Serum or plasma urea nitroge n measurement (mass/volume)Ordered By: Logan Ellison on 06-08-2025 Urea nitrogen [Mass/Vol] 17 mg/dL 4-19 [facility] Sodium levelOrdered By: Laine grey cSot on 06-08-2025 Sodium [Moles/Vol] 138 mmol/L 133-145 [facility] White blood cell (WBC) count Ordered By: Logan Ellison on 06-08-2025 WBC (Bld) [#/Vol] 7.1 10*3/uL 4.4-11.0 [facility] Serum or plasma triiodothyro nine (T3) measurement (mass/volume)Ordered By: Logan Ellison on 06-02-2025 T3 [Mass/Vol] 1.10 ng/mL 0.80-2.00 [facility] T4 freeOrdered By: Logan Ellison on 06-02-2025 Free T4 [Mass/Vol] 1.90 ng/dL High 0.76-1.46 [facility] TSH DL <= 0.005 mIU/L QnOrde red By: Logan Ellison on 06-02-2025 TSH Qn 0.050 uIU/mL Low 0.300-4.200 [facility] Absolute lymphocyte countOrd ered By: Logan Hebertchineduyocasta on 06-01-2025 Lymphocytes Auto (Unsp spec) [#/Vol] 1.49 10*3/uL 0.83-4.51 [facility] Anion gap in Serum or Plasma Ordered By: Logan Ellison on 06-01-2025 Anion gap [Moles/Vol] 8 mmol/L 5-15 [facility] Automated lymphocyte count a s percentage of total leukocytesOrdered By: Logan Hebertchineduyocasta on 06-01-2025 Lymphocytes/100 WBC Auto (Unsp spec) 22.2 % 19-41 [facility] BUN/creatinine ratioOrdered By: Veronicacelinemonseibrahima Hebertchineduyocasta on 06-01-2025 Urea nitrogen/Creatinine [Mass ratio] 36.3 mg/mg High 10-20 [facility] Basophil percentageOrdered B y: Logan Ellison on 06-01-2025 Basophils/100 WBC (Bld) 0.6 % 0-1 [facility] Bilirubin, totalOrdered By: Lainemonseibrahima Hebertchineduyocasta on 06-01-2025 Bilirubin [Mass/Vol] 0.35 mg/dL 0.00-1.30 [facility] Blood polychromasia detectio n by light microscopyOrdered By: Logan Ellison on 06-01-2025 Polychromasia LM Ql (Bld) 1+ [facility] Carbon dioxide, total [Moles /volume] in Central venous bloodOrdered By: Logan Ellison on 06-01-2025 CO2 [Moles/Vol] 25.5 mmol/L 21.0-32.0 [facility] Chloride assayOrdered By: Veronica celinegrey Ellison on 06-01-2025 Chloride [Moles/Vol] 107 mmol/L 98-108 [facility] Eosinophil percentageOrdered By: Veronicacelinemonseibrahima Hebertchineduyocasta on 06-01-2025 Eosinophils/100 WBC (Bld) 2.4 % 0-5 [facility] Erythrocyte distribution wid th ratioOrdered By: Logan Ellison on 06-01-2025 Erythrocyte distribution width (RBC) [Ratio] 20.1 % High 11.6-14.6 [facility] Erythrocyte distribution wid th standard deviationOrdered By: Logan Ellison on 06-01-2025 Erythrocyte distribution width (RBC) [Ratio] 74.5 fl High 35.1-43.9 [facility] Folate [Mass/volume] in Seru m or PlasmaOrdered By: Logan Ellison on 06-01-2025 Folate [Mass/Vol] 26.20 ng/mL 4.60-34.80 [facility] Glomerular filtration rate ( GFR) estimation/1.73 sq m using serum, plasma, or whole bOrdered By: Logan Ellison on 06-01-2025 GFR/1.73 sq M.predicted among non-blacks MDRD (S/P/Bld) [Vol rate/Area] 94 mL/min/{1.73_m2} >60 [facility] Hematocrit Auto (Bld) [Volum e fraction]Ordered By: Logan Ellison on 06-01-2025 Hematocrit (Bld) [Volume fraction] 30.2 % Low 37-47 [facility] Hemoglobin measurementOrdere d By: Logan Ellison on 06-01-2025 Hemoglobin (Bld) [Mass/Vol] 9.9 g/dL Low 12.0-15.0 [facility] Immature granulocytes/100 WB C Auto (Bld)Ordered By: Logan Ellison on 06-01-2025 Immature granulocytes/100 WBC (Bld) 0.400 % 0.0-0.9 [facility] MCV (mean corpuscular volume ) determinationOrdered By: Logan Ellison on 06-01-2025 MCV (RBC) [Entitic vol] 99.7 fL High 81-99 [facility] Mean corpuscular hemoglobin (MCH) determinationOrdered By: dank Ellison on 06-01-2025 MCH (RBC) [Entitic mass] 32.7 pg High 27.0-32.0 [facility] Monocyte percentageOrdered B y: Logan Ellison on 06-01-2025 Monocytes/100 WBC (Bld) 10.1 % High 0-10 [facility] Neutrophil percentageOrdered By: Logan Ellison on 06-01-2025 Neutrophils/100 WBC (Bld) 64.3 % 47-70 [facility] No Panel InformationOrdered By: Logan Ellison on 06-01-2025 1+ [facility] 15 U/L <32 [facility] Platelet countOrdered By: Veronica Ellison on 06-01-2025 Platelets (Bld) [#/Vol] 145 10*3/uL Low 150-450 [facility] Platelet estimateOrdered By: Logan Ellison on 06-01-2025 Platelets LM Ql (Bld) SLT DEC ADEQ [facility] Potassium measurement (mass/ volume)Ordered By: Logan Ellison on 06-01-2025 Potassium (Unsp spec) [Mass/Vol] 4.3 mmol/L 3.3-5.1 [facility] RBC Auto (Bld) [#/Vol]Ordere d By: Logan Ellison on 06-01-2025 RBC (Bld) [#/Vol] 3.03 10*6/uL Low 4.2-5.4 [facility] Serum creatinine measurement (mass/volume)Ordered By: Logan Ellison on 06-01-2025 Creatinine [Mass/Vol] 0.51 mg/dL Low 0.70-1.20 [facility] Serum globulin measurementOr dered By: oLgan Ellison on 06-01-2025 Globulin (S) [Mass/Vol] 2.4 g/dL 2.2-4.2 [facility] Serum glucose measurement (m ass/volume)Ordered By: Logan Ellison on 06-01-2025 Glucose [Mass/Vol] 89 mg/dL 70-99 [facility] Serum or plasma alanine eastman otransferase (ALT) measurementOrdered By: Logan Ellison 06-01-2025 ALT [Catalytic activity/Vol] 11 U/L <35 [facility] Serum or plasma albumin brandan urement (mass/volume)Ordered By: Logan Ellison on 06-01-2025 Albumin [Mass/Vol] 3.0 g/dL Low 3.4-4.8 [facility] Serum or plasma albumin/glob ulin mass ratioOrdered By: Logan Sánchezyocasta on 06-01-2025 Albumin/Globulin [Mass ratio] 1.2 {ratio} 0.9-2.4 [facility] Serum or plasma alkaline katalina sphatase measurementOrdered By: Veronicacelinemonseibrahima Hebertchineduyocasta on 06-01-2025 ALP [Catalytic activity/Vol] 37 U/L 35-104 [facility] Serum or plasma calcium brandan urement (mass/volume)Ordered By: Logan Hebertchineduyocasta on 06-01-2025 Calcium [Mass/Vol] 9.0 mg/dL 7.6-11.0 [facility] Serum or plasma urea nitroge n measurement (mass/volume)Ordered By: Logan Ellison on 06-01-2025 Urea nitrogen [Mass/Vol] 18 mg/dL 4-19 [facility] Sodium levelOrdered By: Laine grey Scot on 06-01-2025 Sodium [Moles/Vol] 141 mmol/L 133-145 [facility] TSH DL <= 0.005 mIU/L QnOrde red By: Veronicacelinegrey Anupchineduyocasta on 06-01-2025 TSH Qn 0.052 uIU/mL Low 0.300-4.200 [facility] Total proteinOrdered By: Tim montenegro Anupchineduyocasta on 06-01-2025 Protein [Mass/Vol] 5.4 g/dL Low 5.9-8.4 [facility] Vitamin B12 ser/plasOrdered By: Veronicadank Hebertchineduyocasta 06-01-2025 Cobalamin (Vitamin B12) [Mass/Vol] 497 pg/mL 180-914 [facility] White blood cell (WBC) count Ordered By: Logan Ellison on 06-01-2025 WBC (Bld) [#/Vol] 6.7 10*3/uL 4.4-11.0 [facility] Absolute lymphocyte countOrd ered By: Honorio Nettles on 05-26-2025 Lymphocytes Auto (Unsp spec) [#/Vol] 1.91 10*3/uL 0.83-4.51 [facility] Anion gap in Serum or Plasma Ordered By: Honorio Nettles on 05-26-2025 Anion gap [Moles/Vol] 8 mmol/L 5-15 [facility] Automated lymphocyte count a s percentage of total leukocytesOrdered By: Honorio Nettles on 05-26-2025 Lymphocytes/100 WBC Auto (Unsp spec) 29.1 % - [facility] BUN/creatinine ratioOrdered By: Honorio Nettles on 05-26-2025 Urea nitrogen/Creatinine [Mass ratio] 43.6 mg/mg High 08-03 [facility] Basic Metabolic Profile (BMP )on 05-26-2025 BUN/CRE 43.6 RATIO High 08-03 [facility] Comment on above: Performed By: #### L 100.0100, L500.2500 ####[facility] [address] [place], [address] Calcium [Mass/Vol] 9.1 mg/dL Normal 7.6-11.0 [facility] Comment on above: Performed By: #### L 100.0100, L500.2500 ####[facility] [address] [place], [address] Chloride [Moles/Vol] 107 mmol/L Normal 98-108 [facility] Comment on above: Performed By: #### L 100.0100, L500.2500 ####[facility] [address] [place], [address] CO2 [Moles/Vol] 23.3 mmol/L Normal 21.0-32.0 [facility] Comment on above: Performed By: #### L 100.0100, L500.2500 ####[facility] [address] [place], [address] Creatinine [Mass/Vol] 0.48 mg/dL Low 0.70-1.20 [facility] Comment on above: Performed By: #### L 100.0100, L500.2500 ####[facility] [address] [place], [address] ECRCL 49.49 ml/min Low 50-250 [facility] Comment on above: Performed By: #### L 100.0100, L500.2500 ####[facility] [address] [place], [address] GAP 8 Normal 5-15 [facility] Comment on above: Performed By: #### L 100.0100, L500.2500 ####[facility] [address] [place], [address] GFR/1.73 sq M.predicted among non-blacks MDRD (S/P/Bld) [Vol rate/Area] 95 mL/min/{1.73_m2} Normal >60 [facility] Comment on above: Result Comment: mL/m in/1.73m2 CKD-EPI Creatinine Equation (2020) Performed By: #### L 100.0100, L500.2500 ####[facility] [address] [place], [address] Glucose [Mass/Vol] 97 mg/dL Normal 70-99 [facility] Comment on above: Performed By: #### L 100.0100, L500.2500 ####[facility] [address] [place], [address] Potassium [Moles/Vol] 4.2 mmol/L Normal 3.3-5.1 [facility] Comment on above: Performed By: #### L 100.0100, L500.2500 ####[facility] [address] [place], [address] Sodium [Moles/Vol] 138 mmol/L Normal 133-145 [facility] Comment on above: Performed By: #### L 100.0100, L500.2500 ####[facility] [address] [place], [address] Urea nitrogen [Mass/Vol] 21 mg/dL High 4-19 [facility] Comment on above: Performed By: #### L 100.0100, L500.2500 ####[facility] [address] [place], [address] Basophil percentageOrdered B y: Honorio Tho on 05-26-2025 Basophils/100 WBC (Bld) 0.6 % 0-1 [facility] CBC W/Diff, Automatedon 05-15 Anisocytosis Ql (Bld) 1+ Normal [facility] Comment on above: Performed By: #### L 100.0100, L500.2500 ####[facility] [address] [place], [address] PLT EST SLT DEC Normal ADEQ [facility] Comment on above: Performed By: #### L 100.0100, L500.2500 ####[facility] [address] [place], [address] Carbon dioxide, total [Moles /volume] in Central venous bloodOrdered By: Honorio Nettles on 05-26-2025 CO2 [Moles/Vol] 23.3 mmol/L 21.0-32.0 [facility] Chloride assayOrdered By: Pavan Nettles on 05-26-2025 Chloride [Moles/Vol] 107 mmol/L 98-108 [facility] Eosinophil percentageOrdered By: Honorio Tho on 05-26-2025 Eosinophils/100 WBC (Bld) 3.7 % 0-5 [facility] Erythrocyte distribution wid th ratioOrdered By: Honorio Nettles on 05-26-2025 Erythrocyte distribution width (RBC) [Ratio] 20.8 % High 11.6-14.6 [facility] Erythrocyte distribution wid th standard deviationOrdered By: Honorio Tho on 05-26-2025 Erythrocyte distribution width (RBC) [Ratio] 76.9 fl High 35.1-43.9 [facility] Glomerular filtration rate ( GFR) estimation/1.73 sq m using serum, plasma, or whole bOrdered By: Honorio Parkok on 05-26-2025 GFR/1.73 sq M.predicted among non-blacks MDRD (S/P/Bld) [Vol rate/Area] 95 mL/min/{1.73_m2} >60 [facility] Hematocrit Auto (Bld) [Volum e fraction]Ordered By: Honorio Nettles on 05-26-2025 Hematocrit (Bld) [Volume fraction] 34.0 % Low 37-47 [facility] Hemoglobin measurementOrdere d By: Honorio Nettles on 05-26-2025 Hemoglobin (Bld) [Mass/Vol] 11.0 g/dL Low 12.0-15.0 [facility] Immature granulocytes/100 WB C Auto (Bld)Ordered By: Honorio Nettles on 05-26-2025 Immature granulocytes/100 WBC (Bld) 0.600 % 0.0-0.9 [facility] MCV (mean corpuscular volume ) determinationOrdered By: Honorio Nettles 05-26-2025 MCV (RBC) [Entitic vol] 100.9 fL High 81-99 [facility] Mean corpuscular hemoglobin (MCH) determinationOrdered By: Honorio Nettles 05-26-2025 MCH (RBC) [Entitic mass] 32.6 pg High 27.0-32.0 [facility] Monocyte percentageOrdered B y: Honorio Parkok on 05-26-2025 Monocytes/100 WBC (Bld) 8.4 % 0-10 [facility] NATERAon 05-26-2025 NATURA SEE SCANNED REPORT Normal [facility] Comment on above: Performed By: #### L 900.0098 ####[facility] [address] [place], [address] Neutrophil percentageOrdered By: Honorio Nettles on 05-26-2025 Neutrophils/100 WBC (Bld) 57.6 % 47-70 [facility] No Panel InformationOrdered By: Honorio Nettles on 05-26-2025 1+ [facility] Platelet countOrdered By: Pavan Nettles on 05-26-2025 Platelets (Bld) [#/Vol] 129 10*3/uL Low 150-450 [facility] Platelet estimateOrdered By: Honorio Nettles on 05-26-2025 Platelets LM Ql (Bld) SLT DEC ADEQ [facility] Potassium measurement (mass/ volume)Ordered By: Honorio Nettles on 05-26-2025 Potassium (Unsp spec) [Mass/Vol] 4.2 mmol/L 3.3-5.1 [facility] RBC Auto (Bld) [#/Vol]Ordere d By: Honorio Nettles on 05-26-2025 RBC (Bld) [#/Vol] 3.37 10*6/uL Low 4.2-5.4 [facility] Serum creatinine measurement (mass/volume)Ordered By: Honorio Nettles on 05-26-2025 Creatinine [Mass/Vol] 0.48 mg/dL Low 0.70-1.20 [facility] Serum glucose measurement (m ass/volume)Ordered By: Honorio Nettles on 05-26-2025 Glucose [Mass/Vol] 97 mg/dL 70-99 [facility] Serum or plasma calcium brandan urement (mass/volume)Ordered By: Honorio Nettles on 05-26-2025 Calcium [Mass/Vol] 9.1 mg/dL 7.6-11.0 [facility] Serum or plasma urea nitroge n measurement (mass/volume)Ordered By: Honorio Nettles on 05-26-2025 Urea nitrogen [Mass/Vol] 21 mg/dL High 4-19 [facility] Sodium levelOrdered By: Honorio Nettles on 05-26-2025 Sodium [Moles/Vol] 138 mmol/L 133-145 [facility] White blood cell (WBC) count Ordered By: Honorio Nettles on 05-26-2025 WBC (Bld) [#/Vol] 6.6 10*3/uL 4.4-11.0 [facility] EGD Reporton 05-25-2025 EGD Report Normal [facility] MR/OP.PROVATon 05-25-2025 MR/OP.PROVAT Normal [facility] MR/POSTOP.ANEon 05-25-2025 MR/POSTOP.ANE Normal [facility] MR/MUUEQCBC8uj 05-25-2025 MR/POSTOPAN2 Normal [facility] Surgery Specimen Level Nicole 05-25-2025 Surgery Specimen Level IV Normal [facility] Comment on above: Performed By: #### P SUIV ####[facility] [address] [place], [place], [id number] MR/CON.PCM.GIon 05-22-2025 MR/CON.PCM.GI Normal [facility] Absolute lymphocyte countOrd ered By: Honorio Tho on 05-19-2025 Lymphocytes Auto (Unsp spec) [#/Vol] 1.34 10*3/uL 0.83-4.51 [facility] Anion gap in Serum or Plasma Ordered By: Honorio Nettles on 05-19-2025 Anion gap [Moles/Vol] 10 mmol/L 5-15 [facility] Automated lymphocyte count a s percentage of total leukocytesOrdered By: Honorio Nettles on 05-19-2025 Lymphocytes/100 WBC Auto (Unsp spec) 28.4 % 19-41 [facility] BUN/creatinine ratioOrdered By: Honorio Nettles on 05-19-2025 Urea nitrogen/Creatinine [Mass ratio] 39.7 mg/mg High 10-20 [facility] Basic Metabolic Profile (BMP )on 05-19-2025 BUN/CRE 39.7 RATIO High 10- [facility] Comment on above: Performed By: #### L 100.0100, L500.2500 ####[facility] [address] [place], [address] Calcium [Mass/Vol] 9.3 mg/dL Normal 7.6-11.0 [facility] Comment on above: Performed By: #### L 100.0100, L500.2500 ####[facility] [address] [place], [address] Chloride [Moles/Vol] 107 mmol/L Normal 98-108 [facility] Comment on above: Performed By: #### L 100.0100, L500.2500 ####[facility] [address] [place], [address] CO2 [Moles/Vol] 20.7 mmol/L Low 21.0-32.0 [facility] Comment on above: Performed By: #### L 100.0100, L500.2500 ####[facility] [address] [place], [address] Creatinine [Mass/Vol] 0.53 mg/dL Low 0.70-1.20 [facility] Comment on above: Performed By: #### L 100.0100, L500.2500 ####[facility] [address] [place], [address] ECRCL 49.49 ml/min Low 50-250 [facility] Comment on above: Performed By: #### L 100.0100, L500.2500 ####[facility] [address] [place], [address] GAP 10 Normal 5-15 [facility] Comment on above: Performed By: #### L 100.0100, L500.2500 ####[facility] [address] [place], [address] GFR/1.73 sq M.predicted among non-blacks MDRD (S/P/Bld) [Vol rate/Area] 93 mL/min/{1.73_m2} Normal >60 [facility] Comment on above: Result Comment: mL/m in/1.73m2 CKD-EPI Creatinine Equation (2020) Performed By: #### L 100.0100, L500.2500 ####[facility] [address] [place], [address] Glucose [Mass/Vol] 83 mg/dL Normal 70-99 [facility] Comment on above: Performed By: #### L 100.0100, L500.2500 ####[facility] [address] [place], [address] Potassium [Moles/Vol] 4.4 mmol/L Normal 3.3-5.1 [facility] Comment on above: Performed By: #### L 100.0100, L500.2500 ####[facility] [address] [place], [address] Sodium [Moles/Vol] 138 mmol/L Normal 133-145 [facility] Comment on above: Performed By: #### L 100.0100, L500.2500 ####[facility] [address] [place], [address] Urea nitrogen [Mass/Vol] 21 mg/dL High 4-19 [facility] Comment on above: Performed By: #### L 100.0100, L500.2500 ####[facility] [address] [place], [address] Basophil percentageOrdered B y: Honorio Nettles on 05-19-2025 Basophils/100 WBC (Bld) 0.8 % 0-1 [facility] CBC W/Diff, Automatedon 0 Anisocytosis Ql (Bld) 1+ Normal [facility] Comment on above: Performed By: #### L 100.0100, L500.2500 ####[facility] [address] [place], [address] PLT EST ADEQUATE Normal ADEQ [facility] Comment on above: Performed By: #### L 100.0100, L500.2500 ####[facility] [address] [place], [address] Carbon dioxide, total [Moles /volume] in Central venous bloodOrdered By: Honorio Nettles on 05-19-2025 CO2 [Moles/Vol] 20.7 mmol/L Low 21.0-32.0 [facility] Chloride assayOrdered By: Pavan Nettles on 05-19-2025 Chloride [Moles/Vol] 107 mmol/L 98-108 [facility] Eosinophil percentageOrdered By: Honorio Nettles on 05-19-2025 Eosinophils/100 WBC (Bld) 11.0 % High 0-5 [facility] Erythrocyte distribution wid th ratioOrdered By: Honorio Parkok on 05-19-2025 Erythrocyte distribution width (RBC) [Ratio] 20.4 % High 11.6-14.6 [facility] Erythrocyte distribution wid th standard deviationOrdered By: Honorio Nettles on 05-19-2025 Erythrocyte distribution width (RBC) [Ratio] 74.1 fl High 35.1-43.9 [facility] Glomerular filtration rate ( GFR) estimation/1.73 sq m using serum, plasma, or whole bOrdered By: Honorio Nettles on 05-19-2025 GFR/1.73 sq M.predicted among non-blacks MDRD (S/P/Bld) [Vol rate/Area] 93 mL/min/{1.73_m2} >60 [facility] Hematocrit Auto (Bld) [Volum e fraction]Ordered By: Honorio Nettles on 05-19-2025 Hematocrit (Bld) [Volume fraction] 36.2 % Low 37-47 [facility] Hemoglobin measurementOrdere d By: Honorio Nettles on 05-19-2025 Hemoglobin (Bld) [Mass/Vol] 11.6 g/dL Low 12.0-15.0 [facility] Immature granulocytes/100 WB C Auto (Bld)Ordered By: Honorio Nettles on 05-19-2025 Immature granulocytes/100 WBC (Bld) 1.500 % High 0.0-0.9 [facility] MCV (mean corpuscular volume ) determinationOrdered By: Honorio Nettles on 05-19-2025 MCV (RBC) [Entitic vol] 99.5 fL High 81-99 [facility] Mean corpuscular hemoglobin (MCH) determinationOrdered By: Honorio Nettles 05-19-2025 MCH (RBC) [Entitic mass] 31.9 pg 27.0-32.0 [facility] Monocyte percentageOrdered B y: Honorio Nettles on 05-19-2025 Monocytes/100 WBC (Bld) 11.2 % High 0-10 [facility] Neutrophil percentageOrdered By: Honorio Nettles on 05-19-2025 Neutrophils/100 WBC (Bld) 47.1 % 47-70 [facility] No Panel InformationOrdered By: Honorio Nettles on 05-19-2025 1+ [facility] Platelet countOrdered By: Pavan Nettles on 05-19-2025 Platelets (Bld) [#/Vol] 164 10*3/uL 150-450 [facility] Platelet estimateOrdered By: Honorio Nettles on 05-19-2025 Platelets LM Ql (Bld) ADEQUATE ADEQ [facility] Potassium measurement (mass/ volume)Ordered By: Hnoorio Nettles on 05-19-2025 Potassium (Unsp spec) [Mass/Vol] 4.4 mmol/L 3.3-5.1 [facility] RBC Auto (Bld) [#/Vol]Ordere d By: Honorio Nettles on 05-19-2025 RBC (Bld) [#/Vol] 3.64 10*6/uL Low 4.2-5.4 [facility] Serum creatinine measurement (mass/volume)Ordered By: Honorio Nettles on 05-19-2025 Creatinine [Mass/Vol] 0.53 mg/dL Low 0.70-1.20 [facility] Serum glucose measurement (m ass/volume)Ordered By: Honorio Nettles on 05-19-2025 Glucose [Mass/Vol] 83 mg/dL 70-99 [facility] Serum or plasma calcium brandan urement (mass/volume)Ordered By: Honorio Nettles on 05-19-2025 Calcium [Mass/Vol] 9.3 mg/dL 7.6-11.0 [facility] Serum or plasma urea nitroge n measurement (mass/volume)Ordered By: Honorio Netltes on 05-19-2025 Urea nitrogen [Mass/Vol] 21 mg/dL High 4-19 [facility] Sodium levelOrdered By: Honorio Nettles on 05-19-2025 Sodium [Moles/Vol] 138 mmol/L 133-145 [facility] White blood cell (WBC) count Ordered By: Honorio Nettles on 05-19-2025 WBC (Bld) [#/Vol] 4.7 10*3/uL 4.4-11.0 [facility] Modified Barium Swallow Stud yon 05-15-2025 Modified Barium Swallow Study Normal [facility] Urine Cultureon 05-14-2025 URC Normal [facility] Comment on above: Performed By: #### M 100.2200, L400.0001 ####[facility] [address] [place], [place], [address] Wrist min 3 Viewson 05-14-20 25 Wrist min 3 Views Normal [facility] Abdomen Single Viewon 2024 Abdomen Single View Normal [facility] Basic Metabolic Profile (BMP )on 05-12-2025 BUN/CRE 45.2 RATIO High 10-20 [facility] Comment on above: Performed By: #### L 100.0100, L500.2500 ####[facility] [address] [place], [address] Calcium [Mass/Vol] 9.0 mg/dL Normal 7.6-11.0 [facility] Comment on above: Performed By: #### L 100.0100, L500.2500 ####[facility] [address] [place], [address] Chloride [Moles/Vol] 106 mmol/L Normal 98-108 [facility] Comment on above: Performed By: #### L 100.0100, L500.2500 ####[facility] [address] [place], [address] CO2 [Moles/Vol] 20.9 mmol/L Low 21.0-32.0 [facility] Comment on above: Performed By: #### L 100.0100, L500.2500 ####[facility] [address] [place], [address] Creatinine [Mass/Vol] 0.54 mg/dL Low 0.70-1.20 [facility] Comment on above: Performed By: #### L 100.0100, L500.2500 ####[facility] [address] [place], [address] ECRCL 49.71 ml/min Low 50-250 [facility] Comment on above: Performed By: #### L 100.0100, L500.2500 ####[facility] [address] [place], [address] GAP 10 Normal 5-15 [facility] Comment on above: Performed By: #### L 100.0100, L500.2500 ####[facility] [address] [place], [address] GFR/1.73 sq M.predicted among non-blacks MDRD (S/P/Bld) [Vol rate/Area] 92 mL/min/{1.73_m2} Normal >60 [facility] Comment on above: Result Comment: mL/m in/1.73m2 CKD-EPI Creatinine Equation (2020) Performed By: #### L 100.0100, L500.2500 ####[facility] [address] [place], [address] Glucose [Mass/Vol] 99 mg/dL Normal 70-99 [facility] Comment on above: Performed By: #### L 100.0100, L500.2500 ####[facility] [address] [place], [address] Potassium [Moles/Vol] 4.4 mmol/L Normal 3.3-5.1 [facility] Comment on above: Performed By: #### L 100.0100, L500.2500 ####[facility] [address] [place], [address] Sodium [Moles/Vol] 137 mmol/L Normal 133-145 [facility] Comment on above: Performed By: #### L 100.0100, L500.2500 ####[facility] [address] [place], [address] Urea nitrogen [Mass/Vol] 24 mg/dL High 4-19 [facility] Comment on above: Performed By: #### L 100.0100, L500.2500 ####[facility] [address] [place], [address] Bilirubin Test strip Ql (U)O rdered By: Honorio Nettles on 05-12-2025 Bilirubin Ql (U) Negative Negative [facility] CBC W/Diff, Automatedon 04-15 Anisocytosis Ql (Bld) 2+ Normal [facility] Comment on above: Performed By: #### L 100.0100, L500.2500 ####[facility] [address] [place], [address] MACROCYTOSIS 1+ Normal [facility] Comment on above: Performed By: #### L 100.0100, L500.2500 ####[facility] [address] [place], [address] PLT EST A Normal ADEQ [facility] Comment on above: Performed By: #### L 100.0100, L500.2500 ####[facility] [address] [place], [address] Ketones Test strip Ql (U)Ord ered By: Honorio Nettles on 05-12-2025 Ketones Ql (U) Negative Negative [facility] Macrocytes detectionOrdered By: Honorio Nettles on 05-12-2025 Macrocytes Ql (Bld) 1+ [facility] Mucus LM Ql (Urine sed)Order ed By: Honorio Nettles on 05-12-2025 Mucus Ql (Urine sed) 0 SEEN /hpf [facility] Nitrite Test strip Ql (U)Ord ered By: Honorio Nettles on 05-12-2025 Nitrite Ql (U) Positive High Negative [facility] Protein Test strip Ql (U)Ord ered By: Honorio Nettles on 05-12-2025 Protein Ql (U) 30 mg/dl High Negative [facility] Squamous epithelial cells de tection in urine sediment by light microscopyOrdered By: Honorio Nettles on 05-12-2025 Epithelial cells.squamous LM Ql (Urine sed) 0-5 SEEN /hpf 5-10 [facility] Transitional cells detection in urine sediment by light microscopyOrdered By: Honorio Nettles on 05-12-2025 Transitional cells LM Ql (Urine sed) 0-5 SEEN /hpf 0-5 [facility] Urinalysis, Completeon 05-12 EPI,SQUAMOUS 0-5 SEEN Normal 5-10 [facility] Comment on above: Order Comment: COLLE CTOR TO SPECIFY Performed By: #### M 100.2200, L400.0001 ####[facility] [address] [place], [address] EPI,TRANSITION 0-5 SEEN Normal 0-5 [facility] Comment on above: Order Comment: MARGARET CTOR TO SPECIFY Performed By: #### M 100.2200, L400.0001 ####[facility] [address] [place], [address] BACTERIA 2+ /hpf Normal None Seen [facility] Comment on above: Order Comment: [facility] CTOR TO SPECIFY Performed By: #### M 100.2200, L400.0001 ####[facility] [address] [place], [address] RBC 5-10 SEEN Normal 0-5 [facility] Comment on above: Order Comment: MARGARET CTOR TO SPECIFY Performed By: #### M 100.2200, L400.0001 ####[facility] [address] [place], [address] WBC >100 SEEN Normal 0-5 [facility] Comment on above: Order Comment: MARGARET CTOR TO SPECIFY Performed By: #### M 100.2200, L400.0001 ####[facility] [address] [place], [address] Mucus Ql (Urine sed) 0 SEEN Normal [facility] Comment on above: Order Comment: MARGARET CTOR TO SPECIFY Performed By: #### M 100.2200, L400.0001 ####[facility] [address] [place], [address] Urine clarityOrdered By: Honorio Nettles on 05-12-2025 Clarity (U) Turbid Clear [facility] Urine color determinationOrd ered By: Honorio Nettles on 05-12-2025 Color (U) Yellow Yellow [facility] Urine cultureOrdered By: Honorio Nettles on 05-12-2025 Bacteria identified Cx Nom (U) Klebsiella aerogenes Abnormal [facility] Urine glucose detectionOrder ed By: Honorio Nettles on 05-12-2025 Glucose Ql (U) Normal mg/dl Normal [facility] Urine leukocyte esterase det ection by dipstickOrdered By: Honorio Nettles on 05-12-2025 Leukocyte esterase Test strip Ql (U) 500 /ul High Negative [facility] Urine pHOrdered By: Honorio Nettles on 05-12-2025 pH (U) 6.0 [pH] 5.0 - 8.0 [facility] Urine sediment bacteria coun t by microscopy (number/high power field)Ordered By: Honorio Nettles on 05-12-2025 Bacteria LM.HPF (Urine sed) [#/Area] 2 /[HPF] None Seen [facility] Urine specific gravity measu rementOrdered By: Honorio Nettles on 05-12-2025 Specific gravity (U) [Rel density] 1.020 1.002-1.030 [facility] Urine urobilinogen measureme ntOrdered By: Honorio Nettles on 05-12-2025 Urobilinogen Ql (U) Normal mg/dl Normal [facility] White blood cell countOrdere d By: Honorio Nettles on 05-12-2025 White blood cell count >100 SEEN /hpf 0-5 [facility] Basic Metabolic Profile (BMP )on 05-05-2025 BUN/CRE 54.7 RATIO High 10-20 [facility] Comment on above: Performed By: #### L 500.2500, L100.0100 ####[facility] [address] [place], [address] Calcium [Mass/Vol] 9.1 mg/dL Normal 7.6-11.0 [facility] Comment on above: Performed By: #### L 500.2500, L100.0100 ####[facility] [address] [place], [address] Chloride [Moles/Vol] 103 mmol/L Normal 98-108 [facility] Comment on above: Performed By: #### L 500.2500, L100.0100 ####[facility] [address] [place], [address] CO2 [Moles/Vol] 24.1 mmol/L Normal 21.0-32.0 [facility] Comment on above: Performed By: #### L 500.2500, L100.0100 ####[facility] [address] [place], [address] Creatinine [Mass/Vol] 0.50 mg/dL Low 0.70-1.20 [facility] Comment on above: Performed By: #### L 500.2500, L100.0100 ####[facility] [address] [place], [address] ECRCL 50.20 ml/min Normal 50-250 [facility] Comment on above: Performed By: #### L 500.2500, L100.0100 ####[facility] [address] [place], [address] GAP 9 Normal 5-15 [facility] Comment on above: Performed By: #### L 500.2500, L100.0100 ####[facility] [address] [place], [address] GFR/1.73 sq M.predicted among non-blacks MDRD (S/P/Bld) [Vol rate/Area] 94 mL/min/{1.73_m2} Normal >60 [facility] Comment on above: Result Comment: mL/m in/1.73m2 CKD-EPI Creatinine Equation (2020) Performed By: #### L 500.2500, L100.0100 ####[facility] [address] [place], [address] Glucose [Mass/Vol] 91 mg/dL Normal 70-99 [facility] Comment on above: Performed By: #### L 500.2500, L100.0100 ####[facility] [address] [place], [address] Potassium [Moles/Vol] 4.9 mmol/L Normal 3.3-5.1 [facility] Comment on above: Performed By: #### L 500.2500, L100.0100 ####[facility] [address] [place], [address] Sodium [Moles/Vol] 137 mmol/L Normal 133-145 [facility] Comment on above: Performed By: #### L 500.2500, L100.0100 ####[facility] [address] [place], [address] Urea nitrogen [Mass/Vol] 27 mg/dL High 4-19 [facility] Comment on above: Performed By: #### L 500.2500, L100.0100 ####[facility] [address] [place], [address] Bite cells detectionOrdered By: Honorio Nettles on 05-05-2025 Bite cells LM Ql (Bld) [facility] Blood manual differential co mment interpretation (narrative result)Ordered By: Honorio Nettles on 05-05-2025 Manual differential comment Nba (Bld) [Interp] SCANNED [facility] Blood schistocyte detection by light microscopyOrdered By: Honorio Nettles on 05-05-2025 Schistocytes LM Ql (Bld) [facility] CBC W/Diff, Automatedon 04-15 ACANTHOCYTE RARE Normal [facility] Comment on above: Performed By: #### L 500.2500, L100.0100 ####[facility] [address] [place], [address] BITE CELL RARE Normal [facility] Comment on above: Performed By: #### L 500.2500, L100.0100 ####[facility] [address] [place], [address] OVALOCYTE 2+ Normal [facility] Comment on above: Performed By: #### L 500.2500, L100.0100 ####[facility] [address] [place], [address] SCHISTOCYTES RARE Normal [facility] Comment on above: Performed By: #### L 500.2500, L100.0100 ####[facility] [address] [place], [address] TEAR DROP RARE Normal [facility] Comment on above: Performed By: #### L 500.2500, L100.0100 ####[facility] [address] [place], [address] Anisocytosis Ql (Bld) 3+ Normal [facility] Comment on above: Performed By: #### L 500.2500, L100.0100 ####[facility] [address] [place], [address] HYPOCHROMASIA 1+ Normal [facility] Comment on above: Performed By: #### L 500.2500, L100.0100 ####[facility] [address] [place], [address] MACROCYTOSIS 1+ Normal [facility] Comment on above: Performed By: #### L 500.2500, L100.0100 ####[facility] [address] [place], [address] MICROCYTIC 1+ Normal [facility] Comment on above: Performed By: #### L 500.2500, L100.0100 ####[facility] [address] [place], [address] PLT EST ADEQUATE Normal ADEQ [facility] Comment on above: Performed By: #### L 500.2500, L100.0100 ####[facility] [address] [place], [address] SMEAR COMMENT SCANNED Normal [facility] Comment on above: Performed By: #### L 500.2500, L100.0100 ####[facility] [address] [place], [address] Hypochromatic red blood cell detectionOrdered By: Honorio Nettles on 05-05-2025 Hypochromia Ql (Bld) 1+ [facility] Ovalocyte detectionOrdered B y: Honorio Nettles on 05-05-2025 Ovalocytes LM Ql (Bld) 2+ [facility] Teardrop cell detectionOrder ed By: Honorio Nettles on 05-05-2025 Dacrocytes LM Ql (Bld) RARE [facility] Urine Cultureon 05-02-2025 URC Normal [facility] Comment on above: Performed By: #### M 100.2200, L400.0001 ####[facility] [address] [place], [address] Urinalysis, Completeon 04-29 BACTERIA 2+ /hpf Normal None Seen [facility] Comment on above: Order Comment: BLADD ER TAP Performed By: #### M 100.2200, L400.0001 ####[facility] [address] [place], [address] RBC 5-10 SEEN Normal 0-5 [facility] Comment on above: Order Comment: BLADD ER TAP Performed By: #### M 100.2200, L400.0001 ####[facility] [address] [place], [address] WBC >100 SEEN Normal 0-5 [facility] Comment on above: Order Comment: BLADD ER TAP Performed By: #### M 100.2200, L400.0001 ####[facility] [address] [place], [address] EPI,SQUAMOUS 0 SEEN Normal 5-10 [facility] Comment on above: Order Comment: BLADD ER TAP Performed By: #### M 100.2200, L400.0001 ####[facility] [address] [place], [address] Mucus Ql (Urine sed) 0 SEEN Normal [facility] Comment on above: Order Comment: BLADD ER TAP Performed By: #### M 100.2200, L400.0001 ####[facility] [address] [place], [address] Urine cultureOrdered By: Honorio Nettles on 04-29-2025 Bacteria identified Cx Nom (U) Pseudomonas aeruginosa Abnormal [facility] Bacteria identified Cx Nom (U) Klebsiella aerogenes Abnormal [facility] Basic Metabolic Profile (BMP )on 04-28-2025 BUN/CRE 35.2 RATIO High 10-20 [facility] Comment on above: Performed By: #### L 500.2500, L100.0100 ####[facility] [address] [place], [address] Calcium [Mass/Vol] 9.1 mg/dL Normal 7.6-11.0 [facility] Comment on above: Performed By: #### L 500.2500, L100.0100 ####[facility] [address], [address] Chloride [Moles/Vol] 100 mmol/L Normal 98-108 [facility] Comment on above: Performed By: #### L 500.2500, L100.0100 ####[facility] [address], [address] CO2 [Moles/Vol] 21.6 mmol/L Normal 21.0-32.0 [facility] Comment on above: Performed By: #### L 500.2500, L100.0100 ####[facility] [address] [place], [address] Creatinine [Mass/Vol] 0.67 mg/dL Low 0.70-1.20 [facility] Comment on above: Performed By: #### L 500.2500, L100.0100 ####[facility] [address] [place], [address] ECRCL 50.20 ml/min Normal 50-250 [facility] Comment on above: Performed By: #### L 500.2500, L100.0100 ####[facility] [address] [place], [address] GAP 13 Normal 5-15 [facility] Comment on above: Performed By: #### L 500.2500, L100.0100 ####[facility] [address] [place], [address] GFR/1.73 sq M.predicted among non-blacks MDRD (S/P/Bld) [Vol rate/Area] 88 mL/min/{1.73_m2} Normal >60 [facility] Comment on above: Result Comment: mL/m in/1.73m2 CKD-EPI Creatinine Equation (2020) Performed By: #### L 500.2500, L100.0100 ####[facility] [address] [place], [address] Glucose [Mass/Vol] 95 mg/dL Normal 70-99 [facility] Comment on above: Performed By: #### L 500.2500, L100.0100 ####[facility] [address] [place], [address] Potassium [Moles/Vol] 4.8 mmol/L Normal 3.3-5.1 [facility] Comment on above: Performed By: #### L 500.2500, L100.0100 ####[facility] [address] [place], [address] Sodium [Moles/Vol] 134 mmol/L Normal 133-145 [facility] Comment on above: Performed By: #### L 500.2500, L100.0100 ####[facility] [address] [place], [address] Urea nitrogen [Mass/Vol] 23 mg/dL High 4-19 [facility] Comment on above: Performed By: #### L 500.2500, L100.0100 ####[facility] [address] [place], [address] CBC W/Diff, Automatedon 07- ACANTHOCYTE RARE Normal [facility] Comment on above: Performed By: #### L 500.2500, L100.0100 ####[facility] [address] [place], [address] CRENATED RBC RARE Normal [facility] Comment on above: Performed By: #### L 500.2500, L100.0100 ####[facility] [address] [place], [address] OVALOCYTE 1+ Normal [facility] Comment on above: Performed By: #### L 500.2500, L100.0100 ####[facility] [address] [place], [address] SCHISTOCYTES RARE Normal [facility] Comment on above: Performed By: #### L 500.2500, L100.0100 ####[facility] [address] [place], [address] TEAR DROP RARE Normal [facility] Comment on above: Performed By: #### L 500.2500, L100.0100 ####[facility] [address] [place], [address] Anisocytosis Ql (Bld) 2+ Normal [facility] Comment on above: Performed By: #### L 500.2500, L100.0100 ####[facility] [address] [place], [address] PLT EST ADEQUATE Normal ADEQ [facility] Comment on above: Performed By: #### L 500.2500, L100.0100 ####[facility] [address] [place], [address] SMEAR COMMENT Normal [facility] Comment on above: Result Comment: 1+ B ANDS NOTED Performed By: #### L 500.2500, L100.0100 ####[facility] [address] [place], [address] Crenated erythrocyte detecti on by light microscopyOrdered By: Honorio Nettles on 04-28-2025 Morgan cells LM Ql (Bld) RARE [facility] Wrist 2 Viewson 04-27-2025 Wrist 2 Views Normal [facility] Calculated very low density lipoprotein (VLDL) cholesterol measurementOrdered By: Honorio Nettles on 04-23-2025 Calculated very low density lipoprotein (VLDL) cholesterol measurement 13 mg/dL 5-40 [facility] LDL calc ser/plasOrdered By: Honorio Nettles on 04-23-2025 Cholesterol in LDL [Mass/Vol] 32 mg/dL [facility] Lipid Profileon 04-23-2025 CHOL:HDL 2.02 Normal [facility] Comment on above: Performed By: #### L 500.4100 ####[facility] [address] [place], [address](646) Cholesterol [Mass/Vol] 89 mg/dL Normal <=200 [facility] Comment on above: Result Comment: Chol esterol level, Desirable <200 mg/dLBorderline high cholesterol 200-239 mg/dLHigh cholesterol >=240 mg/dLRecommendations of the NCEP Adult Treatment Panel for thefollowing risk-cutoff thresholds for the [place] Americanpulation. Performed By: #### L 500.4100 ####[facility] [address] [place], [address] Cholesterol in HDL [Mass/Vol] 44 mg/dL Normal [facility] Comment on above: Result Comment: Jacque onal Cholesterol Education Program (NCEP) guidelines:<40 mg/dL: Low HDL-cholesterol (major risk factor for CHD)>= 60 mg/dL: High HDL-cholesterol (negative risk factor forCHD)HDL-cholesterol is affected by a number of factors, e.g.smoking, exercise, hormones, sex and age. Performed By: #### L 500.4100 ####[facility] [address] [place], [address](501) Cholesterol in LDL [Mass/Vol] 32 mg/dL Normal [facility] Comment on above: Result Comment: Bord luansf=105-774 mg/dL Higher Ozhs=594 mg/dL or greater Performed By: #### L 500.4100 ####[facility] [address] [place], [address] Cholesterol in VLDL [Mass/Vol] 13 mg/dL Normal 5-40 [facility] Comment on above: Performed By: #### L 500.4100 ####[facility] [address] [place], [address] Triglyceride [Mass/Vol] 67 mg/dL Normal [facility] Comment on above: Result Comment: The drugs N-Acetylcysteine and Metamizole may falselydepress this assay.Normal range: <150 mg/dLBorderline High: 150-199 mg/dLHigh: 200-499 mg/dLVery High: >500 mg/dL Performed By: #### L 500.4100 ####[facility] [address] [place], [address] Serum or plasma cholesterol in HDL measurement (mass/volume)Ordered By: Honoroi Nettles on 04-23-2025 Cholesterol in HDL [Mass/Vol] 44 mg/dL >40 [facility] Serum or plasma cholesterol measurement (mass/volume)Ordered By: Honorio Nettles on 04-23-2025 Cholesterol [Mass/Vol] 89 mg/dL <201 [facility] Basic Metabolic Profile (BMP )on 04-21-2025 BUN/CRE 38.1 RATIO High 10-20 [facility] Comment on above: Performed By: #### L 500.2500, L100.0100 ####[facility] [address] [place], [address] Calcium [Mass/Vol] 8.3 mg/dL Normal 7.6-11.0 [facility] Comment on above: Performed By: #### L 500.2500, L100.0100 ####[facility] [address] [place], [address] Chloride [Moles/Vol] 104 mmol/L Normal 98-108 [facility] Comment on above: Performed By: #### L 500.2500, L100.0100 ####[facility] [address] [place], [address] CO2 [Moles/Vol] 22.0 mmol/L Normal 21.0-32.0 [facility] Comment on above: Performed By: #### L 500.2500, L100.0100 ####[facility] [address] [place], [address] Creatinine [Mass/Vol] 0.62 mg/dL Low 0.70-1.20 [facility] Comment on above: Performed By: #### L 500.2500, L100.0100 ####[facility] [address] [place], [address] GAP 8 Normal 5-15 [facility] Comment on above: Performed By: #### L 500.2500, L100.0100 ####[facility] [address] [place], [address] GFR/1.73 sq M.predicted among non-blacks MDRD (S/P/Bld) [Vol rate/Area] 89 mL/min/{1.73_m2} Normal >60 [facility] Comment on above: Result Comment: mL/m in/1.73m2 CKD-EPI Creatinine Equation (2020) Performed By: #### L 500.2500, L100.0100 ####[facility] [address] [place], [address] Glucose [Mass/Vol] 112 mg/dL High 70-99 [facility] Comment on above: Performed By: #### L 500.2500, L100.0100 ####[facility] [address] [place], [address] Potassium [Moles/Vol] 4.4 mmol/L Normal 3.3-5.1 [facility] Comment on above: Performed By: #### L 500.2500, L100.0100 ####[facility] [address] [place], [address] Sodium [Moles/Vol] 134 mmol/L Normal 133-145 [facility] Comment on above: Performed By: #### L 500.2500, L100.0100 ####[facility] [address] [place], [address] Urea nitrogen [Mass/Vol] 24 mg/dL High 4-19 [facility] Comment on above: Performed By: #### L 500.2500, L100.0100 ####[facility] [address] [place], [address] CBC W/Diff, Automatedon Anisocytosis Ql (Bld) 1+ Normal [facility] Comment on above: Performed By: #### L 500.2500, L100.0100 ####[facility] [address] [place], [address] PLT EST SLT DEC Normal ADEQ [facility] Comment on above: Performed By: #### L 500.2500, L100.0100 ####[facility] [address] [place], [address] CBC,PLATELETSon 04-20-2025 Erythrocyte distribution width (RBC) [Ratio] 19.9 % High 10.8 - 14.9 % [facility] Hematocrit (Bld) [Volume fraction] 33.2 % Low 34.9 - 44.3 % [facility] Hemoglobin (Bld) [Mass/Vol] 10.7 g/dL Low 11.4 - 15.2 g/dL [facility] Interpretation and review of laboratory results Abnormal [facility] MCH (RBC) [Entitic mass] 30.7 pg 25.9 - 33.9 pg [facility] MCHC (RBC) [Mass/Vol] 32.2 g/dL 31.4 - 35.9 g/dL [facility] MCV (RBC) [Entitic vol] 95.4 fL 79.6 - 97.7 fL [facility] Platelet mean volume (Bld) [Entitic vol] 9.5 fL 8.5 - 12.2 fL [facility] Platelets (Bld) [#/Vol] 146 10*3/uL Low 150 - 393 K/uL [facility] RBC (Bld) [#/Vol] 3.48 10*6/uL Low [facility] WBC (Bld) [#/Vol] 5.48 10*3/uL 3.99 - 11.19 K/uL [facility] Hematocrit (Bld) [Volume fraction] 33.2 % Low 34.9-44.3 [facility] Comment on above: Performed By: #### L DO, MGO, IPB, CHM7 #### [facility] (DEFAULT) [address] [place] [address] Hemoglobin (Bld) [Mass/Vol] 10.7 g/dL Low 11.4-15.2 [facility] Comment on above: Performed By: #### L DO, MGO, IPB, CHM7 #### [facility] (DEFAULT) [address] [place] [address] 16098 MCV (RBC) [Entitic vol] 95.4 fL Normal 79.6-97.7 [facility] Comment on above: Performed By: #### L DO, MGO, IPB, CHM7 #### [facility] (DEFAULT) [address] [place] [address] 11976 Mean Cell Hgb 30.7 pg Normal 25.9-33.9 [facility] Comment on above: Performed By: #### L DO, MGO, IPB, CHM7 #### [facility] (DEFAULT) [address] [place] [address] 90067 Mean Cell Hgb Conc 32.2 g/dL Normal 31.4-35.9 [facility] Comment on above: Performed By: #### L DO, MGO, IPB, CHM7 #### [facility] (DEFAULT) [address] [place] [address]186 Platelet mean volume (Bld) [Entitic vol] 9.5 fL Normal 8.5-12.2 [facility] Comment on above: Performed By: #### L DO, MGO, IPB, CHM7 #### [facility] (DEFAULT) [address] [place] [address] 05367 Platelets (Bld) [#/Vol] 146 10*3/uL Low 150-393 [facility] Comment on above: Performed By: #### L DO, MGO, IPB, CHM7 #### [facility] (DEFAULT) [address] [place] [address] 40047 RBC (Bld) [#/Vol] 3.48 10*6/uL Low 3.91-5.04 [facility] Comment on above: Performed By: #### L DO, MGO, IPB, CHM7 #### [facility] (DEFAULT) [address] [place] [address] 66821 RBC Distribution 19.9 % High 10.8-14.9 [facility] Comment on above: Performed By: #### L DO, MGO, IPB, CHM7 #### [facility] (DEFAULT) [address] [place] [address] 34653 WBC (Bld) [#/Vol] 5.48 10*3/uL Normal 3.99-11.19 [facility] Comment on above: Performed By: #### L DO, MGO, IPB, CHM7 #### [facility] (DEFAULT) [address] [place] [address]507 CHEM 7 (LYTES,BUN,CREA,GLUC) on 04-20-2025 Anion gap [Moles/Vol] 11 mmol/L 7 - 17 mmol/L [facility] Chloride [Moles/Vol] 107 mmol/L 98 - 10 8 mmol/L [facility] CO2 [Moles/Vol] 25 mmol/L 21 - 31 mmol/L [facility] Creatinine [Mass/Vol] 0.53 mg/dL 0.50 - 1.20 mg/dL [facility] eGFR, CKD-EPI, Female - PINF [facility] Glucose [Mass/Vol] 84 mg/dL 70 - 179 mg/dL [facility] Osmolality Calc [Osmolality] 293 [facility] Potassium [Moles/Vol] 4.3 mmol/L 3.5 - 5.0 mmol/L [facility] Sodium [Moles/Vol] 139 mmol/L 135 - 145 mmol/L [facility] Urea nitrogen [Mass/Vol] 19 mg/dL 7 - 25 mg/dL [facility] Urea nitrogen/Creatinine [Mass ratio] 36 mg/mg [facility] Anion gap [Moles/Vol] 11 mmol/L Normal 7-17 [facility] Comment on above: Performed By: #### L DO, MGO, IPB, CHM7 #### [facility] (DEFAULT) [address] [place] [address] Chloride [Moles/Vol] 107 mmol/L Normal 98-108 [facility] Comment on above: Performed By: #### L DO, MGO, IPB, CHM7 #### [facility] (DEFAULT) [address] [place] [address] CO2 [Moles/Vol] 25 mmol/L Normal 21-31 [facility] Comment on above: Performed By: #### L DO, MGO, IPB, CHM7 #### [facility] (DEFAULT) [address] [place] [address] Creatinine [Mass/Vol] 0.53 mg/dL Normal 0.50-1.20 [facility] Comment on above: Performed By: #### L DO, MGO, IPB, CHM7 #### [facility] (DEFAULT) [address] [place] [address] 05049 eGFR, CKD-EPI, Female > Normal >=60 [facility] Comment on above: Result Comment: Repo rted eGFR is based on the CKD-EPI 2020 equation using creatinine, age, and sex. Performed By: #### L DO, MGO, IPB, CHM7 #### [facility] (DEFAULT) [address] [place] [address] Glucose [Mass/Vol] 84 mg/dL Normal Nonfastin -179 mg/dL; Fastin-99 [facility] Comment on above: Performed By: #### L DO, MGO, IPB, CHM7 #### [facility] (DEFAULT) [address] [place] [address]1532 Osmolality [Osmolality] 293 mosm/kg Normal 278-305 [facility] Comment on above: Performed By: #### L DO, MGO, IPB, CHM7 #### [facility] (DEFAULT) [address] [place] [address] 90956 Potassium [Moles/Vol] 4.3 mmol/L Normal 3.5-5.0 [facility] Comment on above: Performed By: #### L DO, MGO, IPB, CHM7 #### [facility] (DEFAULT) [address] [place] [address] 20625 Sodium [Moles/Vol] 139 mmol/L Normal 135-145 [facility] Comment on above: Performed By: #### L DO, MGO, IPB, CHM7 #### [facility] (DEFAULT) [address] [place] [address] 39771 Urea nitrogen [Mass/Vol] 19 mg/dL Normal 7-25 [facility] Comment on above: Performed By: #### L DO, MGO, IPB, CHM7 #### [facility] (DEFAULT) [address] [place] [address] 76640 Urea nitrogen/Creatinine [Mass ratio] 36 mg/mg Normal [facility] Comment on above: Performed By: #### L DO, MGO, IPB, CHM7 #### [facility] (DEFAULT) [address] [place] [address] IONIZED CALCIUM, WHOLE BLOOD on 04-20-2025 Calcium.ionized (Bld) [Moles/Vol] 4.28 mg/dL Low 4.60 - 5.30 mg/dL [facility] Interpretation and review of laboratory results Abnormal [facility] ICA 4.28 mg/dL Low 4.60-5.30 [facility] Comment on above: Performed By: #### I CA #### [facility] (DEFAULT) [address] [place] [address] 38989 MAGNESIUMon 04-20-2025 Magnesium [Mass/Vol] 1.8 mg/dL 1.6 - 2 .6 mg/dL [facility] Magnesium [Mass/Vol] 1.8 mg/dL Normal 1.6-2.6 [facility] Comment on above: Performed By: #### L DO, MGO, IPB, CHM7 #### [facility] (DEFAULT) [address] [place] [address] 12123 No Panel Informationon 04-20 Interpretation and review of laboratory results Normal [facility] PHOSPHATE, INORGANICon 04-20 Phosphate [Mass/Vol] 3.6 mg/dL 2.2 - 4 .6 mg/dL [facility] Phosphorous 3.6 mg/dL Normal 2.2-4.6 [facility] Comment on above: Performed By: #### L DO, MGO, IPB, CHM7 #### [facility] (DEFAULT) [address] [place] [address]456 CBC,PLATELETSon 04-19-2025 Erythrocyte distribution width (RBC) [Ratio] 19.7 % High 10.8 - 14.9 % [facility] Hematocrit (Bld) [Volume fraction] 35.1 % 34.9 - 44.3 % [facility] Hemoglobin (Bld) [Mass/Vol] 11.3 g/dL Low 11.4 - 15.2 g/dL [facility] Interpretation and review of laboratory results Abnormal [facility] MCH (RBC) [Entitic mass] 30.6 pg 25.9 - 33.9 pg [facility] MCHC (RBC) [Mass/Vol] 32.2 g/dL 31.4 - 35.9 g/dL [facility] MCV (RBC) [Entitic vol] 95.1 fL 79.6 - 97.7 fL [facility] Platelet mean volume (Bld) [Entitic vol] 9.2 fL 8.5 - 12.2 fL [facility] Platelets (Bld) [#/Vol] 130 10*3/uL Low 150 - 393 K/uL [facility] RBC (Bld) [#/Vol] 3.69 10*6/uL Low [facility] WBC (Bld) [#/Vol] 6.13 10*3/uL 3.99 - 11.19 K/uL [facility] Hematocrit (Bld) [Volume fraction] 35.1 % Normal 34.9-44.3 [facility] Comment on above: Performed By: #### I CA #### [facility] (DEFAULT) [address] [address] Hemoglobin (Bld) [Mass/Vol] 11.3 g/dL Low 11.4-15.2 [facility] Comment on above: Performed By: #### I CA #### [facility] (DEFAULT) [address] [address] MCV (RBC) [Entitic vol] 95.1 fL Normal 79.6-97.7 [facility] Comment on above: Performed By: #### I CA #### [facility] (DEFAULT) [address] [address] Mean Cell Hgb 30.6 pg Normal 25.9-33.9 [facility] Comment on above: Performed By: #### I CA #### [facility] (DEFAULT) [address] [address] Mean Cell Hgb Conc 32.2 g/dL Normal 31.4-35.9 [facility] Comment on above: Performed By: #### I CA #### [facility] (DEFAULT) [address] [place] [address] 91239 Platelet mean volume (Bld) [Entitic vol] 9.2 fL Normal 8.5-12.2 [facility] Comment on above: Performed By: #### I CA #### [facility] (DEFAULT) [address] [place] [address] 49475 Platelets (Bld) [#/Vol] 130 10*3/uL Low 150-393 [facility] Comment on above: Performed By: #### I CA #### [facility] (DEFAULT) [address] [place] [address] 02539 RBC (Bld) [#/Vol] 3.69 10*6/uL Low 3.91-5.04 [facility] Comment on above: Performed By: #### I CA #### [facility] (DEFAULT) [address] [place] [address] 72754 RBC Distribution 19.7 % High 10.8-14.9 [facility] Comment on above: Performed By: #### I CA #### [facility] (DEFAULT) [address] [place] [address] 89984 WBC (Bld) [#/Vol] 6.13 10*3/uL Normal 3.99-11.19 [facility] Comment on above: Performed By: #### I CA #### [facility] (DEFAULT) [address] [place] [address] 22456 CHEM 7 (LYTES,BUN,CREA,GLUC) on 04-19-2025 Anion gap [Moles/Vol] 12 mmol/L 7 - 17 mmol/L [facility] Chloride [Moles/Vol] 105 mmol/L 98 - 10 8 mmol/L [facility] CO2 [Moles/Vol] 24 mmol/L 21 - 31 mmol/L [facility] Creatinine [Mass/Vol] 0.52 mg/dL 0.50 - 1.20 mg/dL [facility] eGFR, CKD-EPI, Female - PINF [facility] Glucose [Mass/Vol] 101 mg/dL 70 - 179 mg/dL [facility] Osmolality Calc [Osmolality] 291 [facility] Potassium [Moles/Vol] 4.4 mmol/L 3.5 - 5.0 mmol/L [facility] Sodium [Moles/Vol] 137 mmol/L 135 - 145 mmol/L [facility] Urea nitrogen [Mass/Vol] 20 mg/dL 7 - 25 mg/dL [facility] Urea nitrogen/Creatinine [Mass ratio] 38 mg/mg [facility] Anion gap [Moles/Vol] 12 mmol/L Normal 7-17 [facility] Comment on above: Performed By: #### BALJIT QUINTANA, IPB ####[facility] (DEFAULT)[address] [place] [address] Chloride [Moles/Vol] 105 mmol/L Normal 98-108 [facility] Comment on above: Performed By: #### BALJIT QUINTANA, IPB ####[facility] (DEFAULT)[address] [place] [address] CO2 [Moles/Vol] 24 mmol/L Normal 21-31 [facility] Comment on above: Performed By: #### BALJIT QUINTANA, IPB ####[facility] (DEFAULT)[address] [place] [address] Creatinine [Mass/Vol] 0.52 mg/dL Normal 0.50-1.20 [facility] Comment on above: Performed By: #### BALJIT QUINTANA, IPB ####[facility] (DEFAULT)[address] [place] [address] eGFR, CKD-EPI, Female > Normal >=60 [facility] Comment on above: Result Comment: Repo rted eGFR is based on the CKD-EPI 2020 equation using creatinine, age, and sex. Performed By: #### BALJIT QUINTANA, IPB ####[facility] (DEFAULT)[address] [place] [address] Glucose [Mass/Vol] 101 mg/dL Normal Nonfastin -179 mg/dL; Fastin-99 [facility] Comment on above: Performed By: #### BALJIT QUINTANA, IPB ####[facility] (DEFAULT)[address] [place] [address] Osmolality [Osmolality] 291 mosm/kg Normal 278-305 [facility] Comment on above: Performed By: #### BALJIT QUINTANA, IPB ####[facility] (DEFAULT)[address] [place] [address] Potassium [Moles/Vol] 4.4 mmol/L Normal 3.5-5.0 [facility] Comment on above: Performed By: #### BALJIT QUINTANA, IPB ####[facility] (DEFAULT)[address] [place] [address] Sodium [Moles/Vol] 137 mmol/L Normal 135-145 [facility] Comment on above: Performed By: #### BALJIT QUINTANA, IPB ####[facility] (DEFAULT)[address] [place] [address] Urea nitrogen [Mass/Vol] 20 mg/dL Normal 7-25 [facility] Comment on above: Performed By: #### BALJIT QUINTANA, IPB ####[facility] (DEFAULT)[address] [place] [address] Urea nitrogen/Creatinine [Mass ratio] 38 mg/mg Normal [facility] Comment on above: Performed By: #### BALJIT QUINTANA, IPB ####[facility] (DEFAULT)[address] [place] [address] IONIZED CALCIUM, WHOLE BLOOD Ordered By: Fouzia Marshall on 04-19-2025 Calcium.ionized (Bld) [Moles/Vol] 4.37 mg/dL Low 4.60 - 5.30 mg/dL [facility] Interpretation and review of laboratory results Abnormal [facility] IONIZED CALCIUM, WHOLE BLOOD on 04-19-2025 ICA 4.37 mg/dL Low 4.60-5.30 [facility] Comment on above: Performed By: #### I CA ####[facility] (DEFAULT)[address] [place] [address] 29543 MAGNESIUMon 04-19-2025 Magnesium [Mass/Vol] 1.9 mg/dL 1.6 - 2 .6 mg/dL [facility] Magnesium [Mass/Vol] 1.9 mg/dL Normal 1.6-2.6 [facility] Comment on above: Performed By: #### M GO, CHM7, IPB ####[facility] (DEFAULT)[address] [place] [address] 77235 No Panel Informationon 04-19 Interpretation and review of laboratory results Normal [facility] PHOSPHATE, INORGANICon 04-19 Phosphate [Mass/Vol] 2.9 mg/dL 2.2 - 4 .6 mg/dL [facility] Phosphorous 2.9 mg/dL Normal 2.2-4.6 [facility] Comment on above: Performed By: #### I CA #### [facility] (DEFAULT) [address] [place] [address]33 CBC,PLATELETSon 04-18-2025 Erythrocyte distribution width (RBC) [Ratio] 19.4 % High 10.8 - 14.9 % [facility] Hematocrit (Bld) [Volume fraction] 34.8 % Low 34.9 - 44.3 % [facility] Hemoglobin (Bld) [Mass/Vol] 11.2 g/dL Low 11.4 - 15.2 g/dL [facility] Interpretation and review of laboratory results Abnormal [facility] MCH (RBC) [Entitic mass] 31.5 pg 25.9 - 33.9 pg [facility] MCHC (RBC) [Mass/Vol] 32.2 g/dL 31.4 - 35.9 g/dL [facility] MCV (RBC) [Entitic vol] 98 fL High 79.6 - 97.7 fL [facility] Platelet mean volume (Bld) [Entitic vol] 10.5 fL 8.5 - 12.2 fL [facility] Platelets (Bld) [#/Vol] 104 10*3/uL Low 150 - 393 K/uL [facility] RBC (Bld) [#/Vol] 3.55 10*6/uL Low [facility] WBC (Bld) [#/Vol] 5.1 10*3/uL 3.99 - 11.19 K/uL [facility] Hematocrit (Bld) [Volume fraction] 34.8 % Low 34.9-44.3 [facility] Comment on above: Performed By: #### L ARNEL TOBIAS IPB, CHM7 #### [facility] (DEFAULT) [address] [address] Hemoglobin (Bld) [Mass/Vol] 11.2 g/dL Low 11.4-15.2 [facility] Comment on above: Performed By: #### L ARNEL TOBIAS IPB, CHM7 #### [facility] (DEFAULT) [address] [place] [address] 35906 MCV (RBC) [Entitic vol] 98.0 fL High 79.6-97.7 [facility] Comment on above: Performed By: #### L ARNEL TOBIAS IPOlga, CHM7 #### [facility] (DEFAULT) [address] [place] [address] 12603 Mean Cell Hgb 31.5 pg Normal 25.9-33.9 [facility] Comment on above: Performed By: #### L DO, MGO, IPB, CHM7 #### [facility] (DEFAULT) [address] [place] [address] 92026 Mean Cell Hgb Conc 32.2 g/dL Normal 31.4-35.9 [facility] Comment on above: Performed By: #### L DO, MGO, IPB, CHM7 #### [facility] (DEFAULT) [address] [place] [address] 84307 Platelet mean volume (Bld) [Entitic vol] 10.5 fL Normal 8.5-12.2 [facility] Comment on above: Performed By: #### L DO, MGO, IPB, CHM7 #### [facility] (DEFAULT) [address] [place] [address] 76753 Platelets (Bld) [#/Vol] 104 10*3/uL Low 150-393 [facility] Comment on above: Performed By: #### L DO, MGO, IPB, CHM7 #### [facility] (DEFAULT) [address] [place] [address] 58788 RBC (Bld) [#/Vol] 3.55 10*6/uL Low 3.91-5.04 [facility] Comment on above: Performed By: #### L DO, MGO, IPB, CHM7 #### [facility] (DEFAULT) [address] [place] [address] 98003 RBC Distribution 19.4 % High 10.8-14.9 [facility] Comment on above: Performed By: #### L DO, MGO, IPB, CHM7 #### [facility] (DEFAULT) [address] [place] [address] 50440 WBC (Bld) [#/Vol] 5.10 10*3/uL Normal 3.99-11.19 [facility] Comment on above: Performed By: #### L DO, MGO, IPB, CHM7 #### [facility] (DEFAULT) [address] [place] [address] CHEM 7 (LYTES,BUN,CREA,GLUC) on 04-18-2025 Anion gap [Moles/Vol] 13 mmol/L 7 - 17 mmol/L [facility] Chloride [Moles/Vol] 104 mmol/L 98 - 10 8 mmol/L [facility] CO2 [Moles/Vol] 24 mmol/L 21 - 31 mmol/L [facility] Creatinine [Mass/Vol] 0.56 mg/dL 0.50 - 1.20 mg/dL [facility] eGFR, CKD-EPI, Female - PINF [facility] Glucose [Mass/Vol] 109 mg/dL 70 - 179 mg/dL [facility] Osmolality Calc [Osmolality] 289 [facility] Potassium [Moles/Vol] 4.5 mmol/L 3.5 - 5.0 mmol/L [facility] Sodium [Moles/Vol] 136 mmol/L 135 - 145 mmol/L [facility] Urea nitrogen [Mass/Vol] 20 mg/dL 7 - 25 mg/dL [facility] Urea nitrogen/Creatinine [Mass ratio] 36 mg/mg [facility] Anion gap [Moles/Vol] 13 mmol/L Normal 7-17 [facility] Comment on above: Performed By: #### BALJIT QUINTANA, IPB ####[facility] (DEFAULT)[address] [place] [address]479 Chloride [Moles/Vol] 104 mmol/L Normal 98-108 [facility] Comment on above: Performed By: #### LUCIE QUINTANA7, IPB ####[facility] (DEFAULT)[address] [place] [address] 33903 CO2 [Moles/Vol] 24 mmol/L Normal 21-31 [facility] Comment on above: Performed By: #### M LORENZA MEDRANOM7, IPB ####[facility] (DEFAULT)[address] [place] [address] Creatinine [Mass/Vol] 0.56 mg/dL Normal 0.50-1.20 [facility] Comment on above: Performed By: #### BALJIT QUINTANA, IPB ####[facility] (DEFAULT)[address] [facility] [place] [address] eGFR, CKD-EPI, Female > Normal >=60 [facility] Comment on above: Result Comment: Repo rted eGFR is based on the CKD-EPI 2020 equation using creatinine, age, and sex. Performed By: #### BALJIT QUINTANA, IPB ####[facility] (DEFAULT)[address] [facility] [place] [address] Glucose [Mass/Vol] 109 mg/dL Normal Nonfastin -179 mg/dL; Fastin-99 [facility] Comment on above: Performed By: #### BALJIT QUINTANA, IPB ####[facility] (DEFAULT)[address] [place] [address] Osmolality [Osmolality] 289 mosm/kg Normal 278-305 [facility] Comment on above: Performed By: #### BALJIT QUINTANA, IPB ####[facility] (DEFAULT)[address] [place] [address] Potassium [Moles/Vol] 4.5 mmol/L Normal 3.5-5.0 [facility] Comment on above: Performed By: #### BALJIT QUINTANA, IPB ####[facility] (DEFAULT)[address] [place] [address] Sodium [Moles/Vol] 136 mmol/L Normal 135-145 [facility] Comment on above: Performed By: #### BALJIT QUINTANA, IPB ####[facility] (DEFAULT)[address] [place] [address] Urea nitrogen [Mass/Vol] 20 mg/dL Normal 7-25 [facility] Comment on above: Performed By: #### BALJIT QUINTANA, IPB ####[facility] (DEFAULT)[address] [place] [address]757 Urea nitrogen/Creatinine [Mass ratio] 36 mg/mg Normal [facility] Comment on above: Performed By: #### M BALJIT MEDRANO, IPB ####[facility] (DEFAULT)[address] [place] [address]16 IONIZED CALCIUM, WHOLE BLOOD Ordered By: Enrico Tobias on 04-18-2025 Calcium.ionized (Bld) [Moles/Vol] 4.4 mg/dL Low 4.60 - 5.30 mg/dL [facility] Interpretation and review of laboratory results Abnormal [facility] IONIZED CALCIUM, WHOLE BLOOD on 04-18-2025 ICA 4.40 mg/dL Low 4.60-5.30 [facility] Comment on above: Performed By: #### I CA #### [facility] (DEFAULT) [address] [place] [address] MAGNESIUMon 04-18-2025 Magnesium [Mass/Vol] 2 mg/dL 1.6 - 2 .6 mg/dL [facility] Magnesium [Mass/Vol] 2.0 mg/dL Normal 1.6-2.6 [facility] Comment on above: Performed By: #### BALJIT QUINTANA, IPB ####[facility] (DEFAULT)[address] [place] [address] No Panel Informationon 04-18 Interpretation and review of laboratory results Normal [facility] PHOSPHATE, INORGANICon 04-18 Phosphate [Mass/Vol] 3.2 mg/dL 2.2 - 4 .6 mg/dL [facility] Phosphorous 3.2 mg/dL Normal 2.2-4.6 [facility] Comment on above: Performed By: #### BALJIT QUINTANA, IPB ####[facility] (DEFAULT)[address] [place] [address] 35873 CARDIAC RHYTHMon 04-17-2025 [facility] CBC,PLATELETSon 04-17-2025 Erythrocyte distribution width (RBC) [Ratio] 19.3 % High 10.8 - 14.9 % [facility] Hematocrit (Bld) [Volume fraction] 34.3 % Low 34.9 - 44.3 % [facility] Hemoglobin (Bld) [Mass/Vol] 11.3 g/dL Low 11.4 - 15.2 g/dL [facility] MCH (RBC) [Entitic mass] 31.3 pg 25.9 - 33.9 pg [facility] MCHC (RBC) [Mass/Vol] 32.9 g/dL 31.4 - 35.9 g/dL [facility] MCV (RBC) [Entitic vol] 95 fL 79.6 - 97.7 fL [facility] Platelet mean volume (Bld) [Entitic vol] 9.4 fL 8.5 - 12.2 fL [facility] Platelets (Bld) [#/Vol] 121 10*3/uL Low 150 - 393 K/uL [facility] RBC (Bld) [#/Vol] 3.61 10*6/uL Low [facility] WBC (Bld) [#/Vol] 5.24 10*3/uL 3.99 - 11.19 K/uL [facility] Hematocrit (Bld) [Volume fraction] 34.3 % Low 34.9-44.3 [facility] Comment on above: Performed By: #### L DO, MGO, IPB, CHM7 #### [facility] (DEFAULT) [address] [place] [address] 37159 Hemoglobin (Bld) [Mass/Vol] 11.3 g/dL Low 11.4-15.2 [facility] Comment on above: Performed By: #### L DO, MGO, IPB, CHM7 #### [facility] (DEFAULT) [address] [place] [address] 66298 MCV (RBC) [Entitic vol] 95.0 fL Normal 79.6-97.7 [facility] Comment on above: Performed By: #### L DO, MGO, IPB, CHM7 #### [facility] (DEFAULT) [address] [place] [address] 71945 Mean Cell Hgb 31.3 pg Normal 25.9-33.9 [facility] Comment on above: Performed By: #### L DO, MGO, IPB, CHM7 #### [facility] (DEFAULT) [address] [place] [address] 60084 Mean Cell Hgb Conc 32.9 g/dL Normal 31.4-35.9 [facility] Comment on above: Performed By: #### L DO, MGO, IPB, CHM7 #### [facility] (DEFAULT) [address] [place] [address] 26396 Platelet mean volume (Bld) [Entitic vol] 9.4 fL Normal 8.5-12.2 [facility] Comment on above: Performed By: #### L DO, MGO, IPB, CHM7 #### [facility] (DEFAULT) [address] [place] [address] 28518 Platelets (Bld) [#/Vol] 121 10*3/uL Low 150-393 [facility] Comment on above: Performed By: #### L DO, MGO, IPB, CHM7 #### [facility] (DEFAULT) [address] [place] [address] 13142 RBC (Bld) [#/Vol] 3.61 10*6/uL Low 3.91-5.04 [facility] Comment on above: Performed By: #### L DO, MGO, IPB, CHM7 #### [facility] (DEFAULT) [address] [address] RBC Distribution 19.3 % High 10.8-14.9 [facility] Comment on above: Performed By: #### L DO, MGO, IPB, CHM7 #### [facility] (DEFAULT) [address] [place] [address] WBC (Bld) [#/Vol] 5.24 10*3/uL Normal 3.99-11.19 [facility] Comment on above: Performed By: #### L DO, MGO, IPB, CHM7 #### [facility] (DEFAULT) [address] [place] [address] CHEM 7 (LYTES,BUN,CREA,GLUC) on 04-17-2025 Anion gap [Moles/Vol] 8 mmol/L 7 - 17 mmol/L [facility] Chloride [Moles/Vol] 105 mmol/L 98 - 10 8 mmol/L [facility] CO2 [Moles/Vol] 29 mmol/L 21 - 31 mmol/L [facility] Creatinine [Mass/Vol] 0.52 mg/dL 0.50 - 1.20 mg/dL [facility] eGFR, CKD-EPI, Female - PINF [facility] Glucose [Mass/Vol] 91 mg/dL 70 - 179 mg/dL [facility] Osmolality Calc [Osmolality] 291 [facility] Potassium [Moles/Vol] 4.6 mmol/L 3.5 - 5.0 mmol/L [facility] Sodium [Moles/Vol] 137 mmol/L 135 - 145 mmol/L [facility] Urea nitrogen [Mass/Vol] 22 mg/dL 7 - 25 mg/dL [facility] Urea nitrogen/Creatinine [Mass ratio] 42 mg/mg [facility] Anion gap [Moles/Vol] 8 mmol/L Normal 7-17 [facility] Comment on above: Performed By: #### I CA #### [facility] (DEFAULT) [address] [place] [address] 01540 Chloride [Moles/Vol] 105 mmol/L Normal 98-108 [facility] Comment on above: Performed By: #### I CA #### [facility] (DEFAULT) [address] [place] [address] 33209 CO2 [Moles/Vol] 29 mmol/L Normal 21-31 [facility] Comment on above: Performed By: #### I CA #### [facility] (DEFAULT) [address] [place] [address] 33806 Creatinine [Mass/Vol] 0.52 mg/dL Normal 0.50-1.20 [facility] Comment on above: Performed By: #### I CA #### [facility] (DEFAULT) [address] [place] [address] 03221 eGFR, CKD-EPI, Female > Normal >=60 [facility] Comment on above: Result Comment: Repo rted eGFR is based on the CKD-EPI 2020 equation using creatinine, age, and sex. Performed By: #### I CA #### [facility] (DEFAULT) [address] [place] [address] 53211 Glucose [Mass/Vol] 91 mg/dL Normal Nonfastin -179 mg/dL; Fastin-99 [facility] Comment on above: Performed By: #### I CA #### [facility] (DEFAULT) [address] [place] [address] 78389 Osmolality [Osmolality] 291 mosm/kg Normal 278-305 [facility] Comment on above: Performed By: #### I CA #### [facility] (DEFAULT) [address] [place] [address] 01041 Potassium [Moles/Vol] 4.6 mmol/L Normal 3.5-5.0 [facility] Comment on above: Performed By: #### I CA #### [facility] (DEFAULT) [address] [place] [address] 24521 Sodium [Moles/Vol] 137 mmol/L Normal 135-145 [facility] Comment on above: Performed By: #### I CA #### [facility] (DEFAULT) [address] [place] [address] 69026 Urea nitrogen [Mass/Vol] 22 mg/dL Normal 7-25 [facility] Comment on above: Performed By: #### I CA #### [facility] (DEFAULT) [address] [place] [address] 22949 Urea nitrogen/Creatinine [Mass ratio] 42 mg/mg Normal [facility] Comment on above: Performed By: #### I CA #### [facility] (DEFAULT) [address] [place] [address] 04439 IONIZED CALCIUM, WHOLE BLOOD on 04-17-2025 Calcium.ionized (Bld) [Moles/Vol] 4.43 mg/dL Low 4.60 - 5.30 mg/dL [facility] ICA 4.43 mg/dL Low 4.60-5.30 [facility] Comment on above: Performed By: #### X M #### [facility] (DEFAULT) [address] [place] [address] 04719 MAGNESIUMon 04-17-2025 Magnesium [Mass/Vol] 2 mg/dL 1.6 - 2 .6 mg/dL [facility] Magnesium [Mass/Vol] 2.0 mg/dL Normal 1.6-2.6 [facility] Comment on above: Performed By: #### I CA #### [facility] (DEFAULT) [address] [place] [address] 13086 No Panel Informationon 04-17 Interpretation and review of laboratory results Normal [facility] Interpretation and review of laboratory results Abnormal [facility] PHOSPHATE, INORGANICon 04-17 Phosphate [Mass/Vol] 2.8 mg/dL 2.2 - 4 .6 mg/dL [facility] Phosphorous 2.8 mg/dL Normal 2.2-4.6 [facility] Comment on above: Performed By: #### I CA #### [facility] (DEFAULT) [address] [place] [address] 66180 CBC,PLATELETSon 04-16-2025 Erythrocyte distribution width (RBC) [Ratio] 19.8 % High 10.8 - 14.9 % [facility] Hematocrit (Bld) [Volume fraction] 35 % 34.9 - 44.3 % [facility] Hemoglobin (Bld) [Mass/Vol] 11.4 g/dL 11.4 - 15.2 g/dL [facility] Interpretation and review of laboratory results Abnormal [facility] MCH (RBC) [Entitic mass] 31 pg 25.9 - 33.9 pg [facility] MCHC (RBC) [Mass/Vol] 32.6 g/dL 31.4 - 35.9 g/dL [facility] MCV (RBC) [Entitic vol] 95.1 fL 79.6 - 97.7 fL [facility] Platelet mean volume (Bld) [Entitic vol] 8.8 fL 8.5 - 12.2 fL [facility] Platelets (Bld) [#/Vol] 116 10*3/uL Low 150 - 393 K/uL [facility] RBC (Bld) [#/Vol] 3.68 10*6/uL Low [facility] WBC (Bld) [#/Vol] 5.6 10*3/uL 3.99 - 11.19 K/uL [facility] Hematocrit (Bld) [Volume fraction] 35.0 % Normal 34.9-44.3 [facility] Comment on above: Performed By: #### L ARNEL TOBIAS IPB, LORENZAM7 #### [facility] (DEFAULT) [address] [address] Hemoglobin (Bld) [Mass/Vol] 11.4 g/dL Normal 11.4-15.2 [facility] Comment on above: Performed By: #### L ARNEL TOBIAS IPB, CHM7 #### [facility] (DEFAULT) [address] [address] MCV (RBC) [Entitic vol] 95.1 fL Normal 79.6-97.7 [facility] Comment on above: Performed By: #### L ARNEL TOBIAS IPB, CHM7 #### [facility] (DEFAULT) [address] [place] [address] 05090 Mean Cell Hgb 31.0 pg Normal 25.9-33.9 [facility] Comment on above: Performed By: #### L DO, MGO, IPB, CHM7 #### [facility] (DEFAULT) [address] [place] [address] 61237 Mean Cell Hgb Conc 32.6 g/dL Normal 31.4-35.9 [facility] Comment on above: Performed By: #### L DO, MGO, IPB, CHM7 #### [facility] (DEFAULT) [address] [place] [address] 67160 Platelet mean volume (Bld) [Entitic vol] 8.8 fL Normal 8.5-12.2 [facility] Comment on above: Performed By: #### L DO, MGO, IPB, CHM7 #### [facility] (DEFAULT) [address] [place] [address] 87703 Platelets (Bld) [#/Vol] 116 10*3/uL Low 150-393 [facility] Comment on above: Performed By: #### L DO, MGO, IPB, CHM7 #### [facility] (DEFAULT) [address] [place] [address] 06371 RBC (Bld) [#/Vol] 3.68 10*6/uL Low 3.91-5.04 [facility] Comment on above: Performed By: #### L DO, MGO, IPB, CHM7 #### [facility] (DEFAULT) [address] [place] [address] 05482 RBC Distribution 19.8 % High 10.8-14.9 [facility] Comment on above: Performed By: #### L DO, MGO, IPB, CHM7 #### [facility] (DEFAULT) [address] [place] [address] 93251 WBC (Bld) [#/Vol] 5.60 10*3/uL Normal 3.99-11.19 [facility] Comment on above: Performed By: #### L DO, MGO, IPB, CHM7 #### [facility] (DEFAULT) [address] [place] [address] CHEM 7 (LYTES,BUN,CREA,GLUC) on 04-16-2025 Anion gap [Moles/Vol] 12 mmol/L 7 - 17 mmol/L [facility] Chloride [Moles/Vol] 105 mmol/L 98 - 10 8 [facility]L [facility] CO2 [Moles/Vol] 24 mmol/L 21 - 31 mmol/L [facility] Creatinine [Mass/Vol] 0.5 mg/dL 0.50 - 1.20 mg/dL [facility] eGFR, CKD-EPI, [facility] - [facility]F [facility] Glucose [Mass/Vol] 85 mg/dL 70 - 179 mg/dL [facility] Osmolality Calc [Osmolality] 289 [facility] Potassium [Moles/Vol] 4.3 mmol/L 3.5 - 5.0 mmol/L [facility] Sodium [Moles/Vol] 137 mmol/L 135 - 145 mmol/L [facility] Urea nitrogen [Mass/Vol] 20 mg/dL 7 - 25 mg/dL [facility] Urea nitrogen/Creatinine [Mass ratio] 40 mg/mg [facility] Anion gap [Moles/Vol] 12 mmol/L Normal 7-17 [facility] Comment on above: Performed By: #### L DO, MGO, IPB, CHM7 #### [facility] (DEFAULT) [address] [place] [address] Chloride [Moles/Vol] 105 mmol/L Normal 98-108 [facility] Comment on above: Performed By: #### L DO, MGO, IPB, CHM7 #### [facility] (DEFAULT) [address] [place] [address] CO2 [Moles/Vol] 24 mmol/L Normal 21-31 [facility] Comment on above: Performed By: #### L DO, MGO, IPB, CHM7 #### [facility] (DEFAULT) [address] [place] [address] 46424 Creatinine [Mass/Vol] 0.50 mg/dL Normal 0.50-1.20 [facility] Comment on above: Performed By: #### L DO, MGO, IPB, CHM7 #### [facility] (DEFAULT) [address] [place] [address] 92863 eGFR, CKD-EPI, Female > Normal >=60 [facility] Comment on above: Result Comment: Repo rted eGFR is based on the CKD-EPI 2020 equation using creatinine, age, and sex. Performed By: #### L DO, MGO, IPB, CHM7 #### [facility] (DEFAULT) [address] [place] [address] 31971 Glucose [Mass/Vol] 85 mg/dL Normal Nonfastin -179 mg/dL; Fastin-99 [facility] Comment on above: Performed By: #### L DO, MGO, IPB, CHM7 #### [facility] (DEFAULT) [address] [place] [address] 20376 Osmolality [Osmolality] 289 mosm/kg Normal 278-305 [facility] Comment on above: Performed By: #### L DO, MGO, IPB, CHM7 #### [facility] (DEFAULT) [address] [place] [address] 60941 Potassium [Moles/Vol] 4.3 mmol/L Normal 3.5-5.0 [facility] Comment on above: Performed By: #### L DO, MGO, IPB, CHM7 #### [facility] (DEFAULT) [address] [place] [address] 21237 Sodium [Moles/Vol] 137 mmol/L Normal 135-145 [facility] Comment on above: Performed By: #### L DO, MGO, IPB, CHM7 #### [facility] (DEFAULT) [address] [place] [address] 86598 Urea nitrogen [Mass/Vol] 20 mg/dL Normal 7-25 [facility] Comment on above: Performed By: #### L DO, MGO, IPB, CHM7 #### [facility] (DEFAULT) [address] [place] [address] 28416 Urea nitrogen/Creatinine [Mass ratio] 40 mg/mg Normal [facility] Comment on above: Performed By: #### L DO, MGO, IPB, CHM7 #### [facility] (DEFAULT) [address] [place] [address] 28649 IONIZED CALCIUM, WHOLE BLOOD Ordered By: Brenden Khan on 04-16-2025 Calcium.ionized (Bld) [Moles/Vol] 3.12 mg/dL Critically low 4.60 - 5.30 mg/dL [facility] Interpretation and review of laboratory results Abnormal [facility] IONIZED CALCIUM, WHOLE BLOOD on 04-16-2025 ICA 3.12 mg/dL Critically low 4.60-5.30 [facility] Comment on above: Performed By: #### X M #### [facility] (DEFAULT) [address] [place] [address] 91258 MAGNESIUMon 04-16-2025 Magnesium [Mass/Vol] 2.1 mg/dL 1.6 - 2 .6 mg/dL [facility] Magnesium [Mass/Vol] 2.1 mg/dL Normal 1.6-2.6 [facility] Comment on above: Performed By: #### L DO, MGO, IPB, CHM7 #### [facility] (DEFAULT) [address] [place] [address] 10568 No Panel Informationon 04-16 Interpretation and review of laboratory results Normal [facility] PHOSPHATE, INORGANICon 04-16 Phosphate [Mass/Vol] 3.1 mg/dL 2.2 - 4 .6 mg/dL [facility] Phosphorous 3.1 mg/dL Normal 2.2-4.6 [facility] Comment on above: Performed By: #### L DO, MGO, IPB, CHM7 #### [facility] (DEFAULT) [address] [place] [address] CBC,PLATELETSon 04-15-2025 Erythrocyte distribution width (RBC) [Ratio] 19.8 % High 10.8 - 14.9 % [facility] Hematocrit (Bld) [Volume fraction] 33.7 % Low 34.9 - 44.3 % [facility] Hemoglobin (Bld) [Mass/Vol] 11 g/dL Low 11.4 - 15.2 g/dL [facility] Interpretation and review of laboratory results Abnormal [facility] MCH (RBC) [Entitic mass] 30.6 pg 25.9 - 33.9 pg [facility] MCHC (RBC) [Mass/Vol] 32.6 g/dL 31.4 - 35.9 g/dL [facility] MCV (RBC) [Entitic vol] 93.9 fL 79.6 - 97.7 fL [facility] Platelet mean volume (Bld) [Entitic vol] 9.2 fL 8.5 - 12.2 fL [facility] Platelets (Bld) [#/Vol] 132 10*3/uL Low 150 - 393 K/uL [facility] RBC (Bld) [#/Vol] 3.59 10*6/uL Low [facility] WBC (Bld) [#/Vol] 4.6 10*3/uL 3.99 - 11.19 K/uL [facility] Hematocrit (Bld) [Volume fraction] 33.7 % Low 34.9-44.3 [facility] Comment on above: Performed By: #### I CA #### [facility] (DEFAULT) [address] [place] [address] Hemoglobin (Bld) [Mass/Vol] 11.0 g/dL Low 11.4-15.2 [facility] Comment on above: Performed By: #### I CA #### [facility] (DEFAULT) [address] [address] MCV (RBC) [Entitic vol] 93.9 fL Normal 79.6-97.7 [facility] Comment on above: Performed By: #### I CA #### [facility] (DEFAULT) [address] [address] Mean Cell Hgb 30.6 pg Normal 25.9-33.9 [facility] Comment on above: Performed By: #### I CA #### [facility] (DEFAULT) [address] [address] Mean Cell Hgb Conc 32.6 g/dL Normal 31.4-35.9 [facility] Comment on above: Performed By: #### I CA #### [facility] (DEFAULT) [address] [place] [address] 20101 Platelet mean volume (Bld) [Entitic vol] 9.2 fL Normal 8.5-12.2 [facility] Comment on above: Performed By: #### I CA #### [facility] (DEFAULT) [address] [address] Platelets (Bld) [#/Vol] 132 10*3/uL Low 150-393 [facility] Comment on above: Performed By: #### I CA #### [facility] (DEFAULT) [address] [address] RBC (Bld) [#/Vol] 3.59 10*6/uL Low 3.91-5.04 [facility] Comment on above: Performed By: #### I CA #### [facility] (DEFAULT) [address] [address] RBC Distribution 19.8 % High 10.8-14.9 [facility] Comment on above: Performed By: #### I CA #### [facility] (DEFAULT) [address] [place] [address] WBC (Bld) [#/Vol] 4.60 10*3/uL Normal 3.99-11.19 [facility] Comment on above: Performed By: #### I CA #### [facility] (DEFAULT) [address] [place] [address] CHEM 7 (LYTES,BUN,CREA,GLUC) on 04-15-2025 Anion gap [Moles/Vol] 10 mmol/L 7 - 17 mmol/L [facility] Chloride [Moles/Vol] 103 mmol/L 98 - 10 8 mmol/L [facility] CO2 [Moles/Vol] 28 mmol/L 21 - 31 mmol/L [facility] Creatinine [Mass/Vol] 0.68 mg/dL 0.50 - 1.20 mg/dL [facility] eGFR, CKD-EPI, Female 87 - PINF [facility] Glucose [Mass/Vol] 106 mg/dL 70 - 179 mg/dL [facility] Interpretation and review of laboratory results Abnormal [facility] Osmolality Calc [Osmolality] 294 [facility] Potassium [Moles/Vol] 4.2 mmol/L 3.5 - 5.0 mmol/L [facility] Sodium [Moles/Vol] 137 mmol/L 135 - 145 mmol/L [facility] Urea nitrogen [Mass/Vol] 31 mg/dL High 7 - 25 mg/dL [facility] Urea nitrogen/Creatinine [Mass ratio] 46 mg/mg [facility] Anion gap [Moles/Vol] 10 mmol/L Normal 7-17 [facility] Comment on above: Performed By: #### L DO, MGO, IPB, CHM7 #### [facility] (DEFAULT) [address] [place] [address] Chloride [Moles/Vol] 103 mmol/L Normal 98-108 [facility] Comment on above: Performed By: #### L DO, MGO, IPB, CHM7 #### [facility] [address] [place] [address] 79627 CO2 [Moles/Vol] 28 mmol/L Normal 21-31 [facility] Comment on above: Performed By: #### L DO, MGO, IPB, CHM7 #### [facility] (DEFAULT) [address] [place] [address] 07124 Creatinine [Mass/Vol] 0.68 mg/dL Normal 0.50-1.20 [facility] Comment on above: Performed By: #### L DO, MGO, IPB, CHM7 #### [facility] (DEFAULT) [address] [place] [address] 32037 GFR/1.73 sq M.predicted among non-blacks MDRD (S/P/Bld) [Vol rate/Area] 87 mL/min/{1.73_m2} Normal >=60 [facility] Comment on above: Result Comment: Repo rted eGFR is based on the CKD-EPI 2020 equation using creatinine, age, and sex. Performed By: #### L DO, MGO, IPB, CHM7 #### [facility] (DEFAULT) [address] [place] [address] 63992 Glucose [Mass/Vol] 106 mg/dL Normal Nonfastin -179 mg/dL; Fastin-99 [facility] Comment on above: Performed By: #### L DO, MGO, IPB, CHM7 #### [facility] (DEFAULT) [address] [place] [address]43 Osmolality [Osmolality] 294 mosm/kg Normal 278-305 [facility] Comment on above: Performed By: #### L DO, MGO, IPB, CHM7 #### [facility] (DEFAULT) [address] [place] [address] 39222 Potassium [Moles/Vol] 4.2 mmol/L Normal 3.5-5.0 [facility] Comment on above: Performed By: #### L DO, MGO, IPB, CHM7 #### [facility] (DEFAULT) [address] [place] [address] 37173 Sodium [Moles/Vol] 137 mmol/L Normal 135-145 [facility] Comment on above: Performed By: #### L DO, MGO, IPB, CHM7 #### [facility] (DEFAULT) [address] [place] [address] 08870 Urea nitrogen [Mass/Vol] 31 mg/dL High 7-25 [facility] Comment on above: Performed By: #### L DO, MGO, IPB, CHM7 #### [facility] (DEFAULT) [address] [place] [address] 90059 Urea nitrogen/Creatinine [Mass ratio] 46 mg/mg Normal [facility] Comment on above: Performed By: #### L DO, MGO, IPB, CHM7 #### [facility] (DEFAULT) [address] [place] [address] 64628 ECGOrdered By: Vandana richardson on 04-15-2025 [facility] Work Phone: IONIZED CALCIUM, WHOLE BLOOD Ordered By: Paul Faulkner on 04-15-2025 Calcium.ionized (Bld) [Moles/Vol] 4.31 mg/dL Low 4.60 - 5.30 mg/dL [facility] Interpretation and review of laboratory results Abnormal [facility] IONIZED CALCIUM, WHOLE BLOOD on 04-15-2025 ICA 4.31 mg/dL Low 4.60-5.30 [facility] Comment on above: Performed By: #### L DO, MGO, IPB, CHM7 #### [facility] (DEFAULT) [address] [place] [address] 99681 MAGNESIUMon 04-15-2025 Magnesium [Mass/Vol] 2 mg/dL 1.6 - 2 .6 mg/dL [facility] Magnesium [Mass/Vol] 2.0 mg/dL Normal 1.6-2.6 [facility] Comment on above: Performed By: #### L DO, MGO, IPB, CHM7 #### [facility] (DEFAULT) [address] [place] [address] No Panel Informationon 04-15 Interpretation and review of laboratory results Normal [facility] PHOSPHATE, INORGANICon 04-15 Phosphate [Mass/Vol] 3.7 mg/dL 2.2 - 4 .6 mg/dL [facility] Phosphorous 3.7 mg/dL Normal 2.2-4.6 [facility] Comment on above: Performed By: #### L DO, MGO, IPB, CHM7 #### [facility] (DEFAULT) [address] [place] [address] US.doppler Upper extremity v ein - leftOrdered By: Sid Laguerre on 04-15-2025 [facility] Work Phone: US.doppler Upper extremity v ein - lefton 04-15-2025 Radiology Study observation (narrative) [facility] CBC,PLATELETSon 04-14-2025 Erythrocyte distribution width (RBC) [Ratio] 20.2 % High 10.8 - 14.9 % [facility] Hematocrit (Bld) [Volume fraction] 33.9 % Low 34.9 - 44.3 % [facility] Hemoglobin (Bld) [Mass/Vol] 11.3 g/dL Low 11.4 - 15.2 g/dL [facility] Interpretation and review of laboratory results Abnormal [facility] MCH (RBC) [Entitic mass] 30.7 pg 25.9 - 33.9 pg [facility] MCHC (RBC) [Mass/Vol] 33.3 g/dL 31.4 - 35.9 g/dL [facility] MCV (RBC) [Entitic vol] 92.1 fL 79.6 - 97.7 fL [facility] Platelet mean volume (Bld) [Entitic vol] 9.8 fL 8.5 - 12.2 fL [facility] Platelets (Bld) [#/Vol] 138 10*3/uL Low 150 - 393 K/uL [facility] RBC (Bld) [#/Vol] 3.68 10*6/uL Low [facility] WBC (Bld) [#/Vol] 6.16 10*3/uL 3.99 - 11.19 K/uL [facility] CHEM 7 (LYTES,BUN,CREA,GLUC) on 04-14-2025 Anion gap [Moles/Vol] 10 mmol/L 7 - 17 mmol/L [facility] Chloride [Moles/Vol] 106 mmol/L 98 - 10 8 mmol/L [facility] CO2 [Moles/Vol] 28 mmol/L 21 - 31 mmol/L [facility] Creatinine [Mass/Vol] 0.78 mg/dL 0.50 - 1.20 mg/dL [facility] eGFR, CKD-EPI, Female 76 - PINF [facility] Glucose [Mass/Vol] 98 mg/dL 70 - 179 mg/dL [facility] Osmolality Calc [Osmolality] 297 [facility] Potassium [Moles/Vol] 4.2 mmol/L 3.5 - 5.0 mmol/L [facility] Sodium [Moles/Vol] 140 mmol/L 135 - 145 mmol/L [facility] Urea nitrogen [Mass/Vol] 23 mg/dL 7 - 25 mg/dL [facility] Urea nitrogen/Creatinine [Mass ratio] 29 mg/mg [facility] IONIZED CALCIUM, WHOLE BLOOD on 04-14-2025 Calcium.ionized (Bld) [Moles/Vol] 4.19 mg/dL Low 4.60 - 5.30 mg/dL [facility] Interpretation and review of laboratory results Abnormal [facility] LACTATE DEHYDROGENASEon 07-0 Interpretation and review of laboratory results Abnormal [facility] LDH Lactate to pyruvate reaction [Catalytic activity/Vol] 309 U/L High 100 - 190 U/L [facility] MAGNESIUMon 04-14-2025 Magnesium [Mass/Vol] 2.4 mg/dL 1.6 - 2 .6 mg/dL [facility] No Panel Informationon 04-14 RADIOLOGY [facility]IOLOGY [facility] [facility] RADIOLOGY [facility] Interpretation and review of laboratory results Normal [facility] PHOSPHATE, INORGANICon 04-14 Phosphate [Mass/Vol] 3.1 mg/dL 2.2 - 4 .6 mg/dL [facility] XR ELBOW LEFT 2 VIEWSon XR [...] radius. Suspected nondisplaced ulnar styloid fracture. Normal [facility] XR Elbow - left 2 [facility] Radiology Study observation (narrative) [facility] XR FOREARM LEFT 2 VIEWSon XR [...] radius. Suspected nondisplaced ulnar styloid fracture. Normal [facility] XR HAND LEFT 3+ VIEWSon XR HAND LEFT 3+ VIEWS EXAM: XR [...] fracture. Nondisplaced fifth proximal phalanx fracture. Normal [facility] XR HUMERUS LEFT 2+ VIEWSon 0 04-14-2025 [...] glenohumeral arthritic changes with intra-articular body. Normal [facility] XR Hand - left 3 [facility] RADIOLOGY RADIOLOGY [facility] Radiology Study observation (narrative) [facility] XR Humerus - left [facility] Radiology Study observation (narrative) [facility] XR Radius and Ulna - left Vi ewson 04-14-2025 Radiology Study observation (narrative) [facility] XR SHOULDER LEFT 2+ VIEWSon 04-14-2025 [...] glenohumeral arthritic changes with intra-articular body. Normal [facility] XR Shoulder - left 2 [facility] 04-14-2025 Radiology Study observation (narrative) [facility] XR WRIST LEFT 3+ VIEWSon [...] metacarpal and fifth proximal phalanx fractures Normal [facility] XR WRIST LEFT 3+ VIEWS EXAM: XR [...] first metacarpal carpal and triscaphe articulations Normal [facility] XR Wrist - left 3 [facility] RADIOLOGY RADIOLOGY [facility] Radiology Study observation (narrative) [facility] RADIOLOGY RADIOLOGY [facility] Radiology Study observation (narrative) [facility] XR Wrist - left 3 ViewsOrder ed By: Mabel Kidd on 04-14-2025 [facility] Work Phone: CBC,PLATELETSon 04-13-2025 Hematocrit (Bld) [Volume fraction] 33.9 % Low 34.9-44.3 [facility] Comment on above: Performed By: #### I CA #### [facility] (DEFAULT) [address] [address] Hemoglobin (Bld) [Mass/Vol] 11.3 g/dL Low 11.4-15.2 [facility] Comment on above: Performed By: #### I CA #### [facility] (DEFAULT) [address] [address] MCV (RBC) [Entitic vol] 92.1 fL Normal 79.6-97.7 [facility] Comment on above: Performed By: #### I CA #### [facility] (DEFAULT) [address] [address] Mean Cell Hgb 30.7 pg Normal 25.9-33.9 [facility] Comment on above: Performed By: #### I CA #### [facility] (DEFAULT) [address] [place] [address] Mean Cell Hgb Conc 33.3 g/dL Normal 31.4-35.9 [facility] Comment on above: Performed By: #### I CA #### [facility] (DEFAULT) [address] [place] [address] Platelet mean volume (Bld) [Entitic vol] 9.8 fL Normal 8.5-12.2 [facility] Comment on above: Performed By: #### I CA #### [facility] (DEFAULT) [address] [place] [address]25 Platelets (Bld) [#/Vol] 138 10*3/uL Low 150-393 [facility] Comment on above: Performed By: #### I CA #### [facility] (DEFAULT) [address] [place] [address] 10363 RBC (Bld) [#/Vol] 3.68 10*6/uL Low 3.91-5.04 [facility] Comment on above: Performed By: #### I CA #### [facility] (DEFAULT) [address] [place] [address] 67803 RBC Distribution 20.2 % High 10.8-14.9 [facility] Comment on above: Performed By: #### I CA #### [facility] (DEFAULT) [address] [place] [address] WBC (Bld) [#/Vol] 6.16 10*3/uL Normal 3.99-11.19 [facility] Comment on above: Performed By: #### I CA #### [facility] (DEFAULT) [address] [place] [address] 72069 Erythrocyte distribution width (RBC) [Ratio] 20.3 % High 10.8 - 14.9 % [facility] Hematocrit (Bld) [Volume fraction] 33.7 % Low 34.9 - 44.3 % [facility] Hemoglobin (Bld) [Mass/Vol] 11 g/dL Low 11.4 - 15.2 g/dL [facility] Interpretation and review of laboratory results Abnormal [facility] MCH (RBC) [Entitic mass] 30.1 pg 25.9 - 33.9 pg [facility] MCHC (RBC) [Mass/Vol] 32.6 g/dL 31.4 - 35.9 g/dL [facility] MCV (RBC) [Entitic vol] 92.3 fL 79.6 - 97.7 fL [facility] Platelet mean volume (Bld) [Entitic vol] 9.6 fL 8.5 - 12.2 fL [facility] Platelets (Bld) [#/Vol] 124 10*3/uL Low 150 - 393 K/uL [facility] RBC (Bld) [#/Vol] 3.65 10*6/uL Low [facility] WBC (Bld) [#/Vol] 6.91 10*3/uL 3.99 - 11.19 K/uL [facility] Hematocrit (Bld) [Volume fraction] 33.7 % Low 34.9-44.3 [facility] Comment on above: Performed By: #### L DO, MGO, IPB, CHM7 #### [facility] (DEFAULT) [address] [place] [address] Hemoglobin (Bld) [Mass/Vol] 11.0 g/dL Low 11.4-15.2 [facility] Comment on above: Performed By: #### L DO, MGO, IPB, CHM7 #### [facility] (DEFAULT) [address] [place] [address] MCV (RBC) [Entitic vol] 92.3 fL Normal 79.6-97.7 [facility] Comment on above: Performed By: #### L DO, MGO, IPB, CHM7 #### [facility] (DEFAULT) [address] [place] [address] 27504 Mean Cell Hgb 30.1 pg Normal 25.9-33.9 [facility] Comment on above: Performed By: #### L DO, MGO, IPB, CHM7 #### [facility] (DEFAULT) [address] [place] [address] 68562 Mean Cell Hgb Conc 32.6 g/dL Normal 31.4-35.9 [facility] Comment on above: Performed By: #### L DO, MGO, IPB, CHM7 #### [facility] (DEFAULT) [address] [place] [address]776 Platelet mean volume (Bld) [Entitic vol] 9.6 fL Normal 8.5-12.2 [facility] Comment on above: Performed By: #### L DO, MGO, IPB, CHM7 #### [facility] (DEFAULT) [address] [place] [address] 66162 Platelets (Bld) [#/Vol] 124 10*3/uL Low 150-393 [facility] Comment on above: Performed By: #### L DO, MGO, IPB, CHM7 #### [facility] (DEFAULT) [address] [place] [address] 30036 RBC (Bld) [#/Vol] 3.65 10*6/uL Low 3.91-5.04 [facility] Comment on above: Performed By: #### L DO, MGO, IPB, CHM7 #### [facility] (DEFAULT) [address] [place] [address] 95262 RBC Distribution 20.3 % High 10.8-14.9 [facility] Comment on above: Performed By: #### L DO, MGO, IPB, CHM7 #### [facility] (DEFAULT) [address] [place] [address] WBC (Bld) [#/Vol] 6.91 10*3/uL Normal 3.99-11.19 [facility] Comment on above: Performed By: #### L DO, MGO, IPB, CHM7 #### [facility] (DEFAULT) [address] [place] [address] CHEM 7 (LYTES,BUN,CREA,GLUC) on 04-13-2025 Anion gap [Moles/Vol] 10 mmol/L Normal 7-17 [facility] Comment on above: Performed By: #### L DO, MGO, IPB, CHM7 #### [facility] (DEFAULT) [address] [place] [address] 37855 Chloride [Moles/Vol] 106 mmol/L Normal 98-108 [facility] Comment on above: Performed By: #### L DO, MGO, IPB, CHM7 #### [facility] (DEFAULT) [address] [place] [address] 08544 CO2 [Moles/Vol] 28 mmol/L Normal 21-31 [facility] Comment on above: Performed By: #### L DO, MGO, IPB, CHM7 #### [facility] (DEFAULT) [address] [place] [address] 36068 Creatinine [Mass/Vol] 0.78 mg/dL Normal 0.50-1.20 [facility] Comment on above: Performed By: #### L DO, MGO, IPB, CHM7 #### [facility] (DEFAULT) [address] [place] [address] GFR/1.73 sq M.predicted among non-blacks MDRD (S/P/Bld) [Vol rate/Area] 76 mL/min/{1.73_m2} Normal >=60 [facility] Comment on above: Result Comment: Repo rted eGFR is based on the CKD-EPI 2020 equation using creatinine, age, and sex. Performed By: #### L DO, MGO, IPB, CHM7 #### [facility] (DEFAULT) [address] [place] [address] Glucose [Mass/Vol] 98 mg/dL Normal Nonfastin -179 mg/dL; Fastin-99 [facility] Comment on above: Performed By: #### L DO, MGO, IPB, CHM7 #### [facility] (DEFAULT) [address] [place] [address] Osmolality [Osmolality] 297 mosm/kg Normal 278-305 [facility] Comment on above: Performed By: #### L DO, MGO, IPB, CHM7 #### [facility] (DEFAULT) [address] [place] [address] Potassium [Moles/Vol] 4.2 mmol/L Normal 3.5-5.0 [facility] Comment on above: Performed By: #### L DO, MGO, IPB, CHM7 #### [facility] (DEFAULT) [address] [place] [address] Sodium [Moles/Vol] 140 mmol/L Normal 135-145 [facility] Comment on above: Performed By: #### L DO, MGO, IPB, CHM7 #### [facility] (DEFAULT) [address] [place] [address] 09032 Urea nitrogen [Mass/Vol] 23 mg/dL Normal 7-25 [facility] Comment on above: Performed By: #### L DO, MGO, IPB, CHM7 #### [facility] (DEFAULT) [address] [place] [address] 27934 Urea nitrogen/Creatinine [Mass ratio] 29 mg/mg Normal [facility] Comment on above: Performed By: #### L DO, MGO, IPB, CHM7 #### [facility] (DEFAULT) [address] [place] [address] 607[address] Anion gap [Moles/Vol] 12 mmol/L 7 - 17 mmol/L [facility] Chloride [Moles/Vol] 107 mmol/L 98 - 10 8 mmol/L [facility] CO2 [Moles/Vol] 23 mmol/L 21 - 31 mmol/L [facility] Creatinine [Mass/Vol] 0.86 mg/dL 0.50 - 1.20 mg/dL [facility] eGFR, CKD-EPI, Female 66 - PINF [facility] Glucose [Mass/Vol] 119 mg/dL 70 - 179 mg/dL [facility] Osmolality Calc [Osmolality] 293 [facility] Potassium [Moles/Vol] 3.5 mmol/L 3.5 - 5.0 mmol/L [facility] Sodium [Moles/Vol] 138 mmol/L 135 - 145 mmol/L [facility] Urea nitrogen [Mass/Vol] 24 mg/dL 7 - 25 mg/dL [facility] Urea nitrogen/Creatinine [Mass ratio] 28 mg/mg [facility] Anion gap [Moles/Vol] 12 mmol/L Normal 7-17 [facility] Comment on above: Performed By: #### X M #### [facility] (DEFAULT) [address] [place] [address] Chloride [Moles/Vol] 107 mmol/L Normal 98-108 [facility] Comment on above: Performed By: #### X M #### [facility] (DEFAULT) [address] [place] [address] CO2 [Moles/Vol] 23 mmol/L Normal 21-31 [facility] Comment on above: Performed By: #### X M #### [facility] (DEFAULT) [address] [place] [address] Creatinine [Mass/Vol] 0.86 mg/dL Normal 0.50-1.20 [facility] Comment on above: Performed By: #### X M #### [facility] (DEFAULT) [address] [place] [address]38 GFR/1.73 sq M.predicted among non-blacks MDRD (S/P/Bld) [Vol rate/Area] 68 mL/min/{1.73_m2} Normal >=60 [facility] Comment on above: Result Comment: Repo rted eGFR is based on the CKD-EPI 2020 equation using creatinine, age, and sex. Performed By: #### X M #### [facility] (DEFAULT) [address] [place] [address] Glucose [Mass/Vol] 119 mg/dL Normal Nonfastin -179 mg/dL; Fastin-99 [facility] Comment on above: Performed By: #### X M #### [facility] (DEFAULT) [address] [place] [address] 33238 Osmolality [Osmolality] 293 mosm/kg Normal 278-305 [facility] Comment on above: Performed By: #### X M #### [facility] (DEFAULT) [address] [place] [address] Potassium [Moles/Vol] 3.5 mmol/L Normal 3.5-5.0 [facility] Comment on above: Performed By: #### X M #### [facility] (DEFAULT) [address] [place] [address] 89701 Sodium [Moles/Vol] 138 mmol/L Normal 135-145 [facility] Comment on above: Performed By: #### X M #### [facility] (DEFAULT) [address] [place] [address]99 Urea nitrogen [Mass/Vol] 24 mg/dL Normal 7-25 [facility] Comment on above: Performed By: #### X M #### [facility] (DEFAULT) [address] [place] [address] 83036 Urea nitrogen/Creatinine [Mass ratio] 28 mg/mg Normal [facility] Comment on above: Performed By: #### X M #### [facility] (DEFAULT) [address] [address] Culture, Blood (WB)on 2024 CUB Blood cultures x2, f rom two different sites No growth in 5 days. Normal [facility] Comment on above: Performed By: #### L 503.6005, L100.0100, L501.4021, M200.1000, L300.4310, L500.4050, L500.3400 ####[facility] [id number] [place], [address] IONIZED CALCIUM, WHOLE BLOOD on 04-13-2025 ICA 4.19 mg/dL Low 4.60-5.30 [facility] Comment on above: Performed By: #### I CA #### [facility] (DEFAULT) [address] [place] [address] Calcium.ionized (Bld) [Moles/Vol] 4.12 mg/dL Low 4.60 - 5.30 mg/dL [facility] Interpretation and review of laboratory results Abnormal [facility] ICA 4.12 mg/dL Low 4.60-5.30 [facility] Comment on above: Performed By: #### I CA ####[facility] (DEFAULT)[address] [place] [address] LACTATE DEHYDROGENASEon 03-17 LD Total 309 U/L High 100-190 [facility] Comment on above: Performed By: #### L DO, MGO, IPB, CHM7 #### [facility] (DEFAULT) [address] [place] [address] MAGNESIUMon 04-13-2025 Magnesium [Mass/Vol] 2.4 mg/dL Normal 1.6-2.6 [facility] Comment on above: Performed By: #### L DO, MGO, IPB, CHM7 #### [facility] (DEFAULT) [address] [place] [address] Magnesium [Mass/Vol] 1.9 mg/dL 1.6 - 2 .6 mg/dL [facility] Magnesium [Mass/Vol] 1.9 mg/dL Normal 1.6-2.6 [facility] Comment on above: Performed By: #### X M #### [facility] (DEFAULT) [address] [place] [address] No Panel Informationon 04-13 Interpretation and review of laboratory results Normal [facility] PHOSPHATE, INORGANICon 04-13 Phosphorous 3.1 mg/dL Normal 2.2-4.6 [facility] Comment on above: Performed By: #### L DO, MGO, IPB, CHM7 #### [facility] (DEFAULT) [address] [place] [address] 06799 Phosphate [Mass/Vol] 2.9 mg/dL 2.2 - 4 .6 mg/dL [facility] Phosphorous 2.9 mg/dL Normal 2.2-4.6 [facility] Comment on above: Performed By: #### X M #### [facility] (DEFAULT) [address] [place] [address] 65689 PROTEIN TOTALon 04-13-2025 Interpretation and review of laboratory results Abnormal [facility] Protein [Mass/Vol] 4.5 g/dL Low 6.4 - 8.3 g/dL [facility] Protein [Mass/Vol] 4.5 g/dL Low 6.4-8.3 [facility] Comment on above: Performed By: #### X M #### [facility] (DEFAULT) [address] [place] [address] 17825 Portable XR Chest [facility] RADIOLOGY RADIOLOGY [facility] Radiology Study observation (narrative) [facility] XR CHEST 1 VIEW PORTABLEon 0 [...] have reviewed and approved this report. Normal [facility] CBC,PLATELETSon 04-12-2025 Erythrocyte distribution width (RBC) [Ratio] 20.1 % High 10.8 - 14.9 % [facility] Hematocrit (Bld) [Volume fraction] 33.7 % Low 34.9 - 44.3 % [facility] Hemoglobin (Bld) [Mass/Vol] 11.3 g/dL Low 11.4 - 15.2 g/dL [facility] Interpretation and review of laboratory results Abnormal [facility] MCH (RBC) [Entitic mass] 30.7 pg 25.9 - 33.9 pg [facility] MCHC (RBC) [Mass/Vol] 33.5 g/dL 31.4 - 35.9 g/dL [facility] MCV (RBC) [Entitic vol] 91.6 fL 79.6 - 97.7 fL [facility] Platelet mean volume (Bld) [Entitic vol] 9.7 fL 8.5 - 12.2 fL [facility] Platelets (Bld) [#/Vol] 124 10*3/uL Low 150 - 393 K/uL [facility] RBC (Bld) [#/Vol] 3.68 10*6/uL Low [facility] WBC (Bld) [#/Vol] 6.39 10*3/uL 3.99 - 11.19 K/uL [facility] Hematocrit (Bld) [Volume fraction] 33.7 % Low 34.9-44.3 [facility] Comment on above: Performed By: #### L , MGCinda, IPOlga, CHM7 #### [facility] (DEFAULT) [address] [place] [address] Hemoglobin (Bld) [Mass/Vol] 11.3 g/dL Low 11.4-15.2 [facility] Comment on above: Performed By: #### L DO, MGO, IPB, CHM7 #### [facility] (DEFAULT) [address] [place] [address] MCV (RBC) [Entitic vol] 91.6 fL Normal 79.6-97.7 [facility] Comment on above: Performed By: #### L DO, MGO, IPB, CHM7 #### [facility] (DEFAULT) [address] [place] [address] 58519 Mean Cell Hgb 30.7 pg Normal 25.9-33.9 [facility] Comment on above: Performed By: #### L DO, MGO, IPB, CHM7 #### [facility] (DEFAULT) [address] [place] [address] 33192 Mean Cell Hgb Conc 33.5 g/dL Normal 31.4-35.9 [facility] Comment on above: Performed By: #### L DO, MGO, IPB, CHM7 #### [facility] (DEFAULT) [address] [place] [address] 62461 Platelet mean volume (Bld) [Entitic vol] 9.7 fL Normal 8.5-12.2 [facility] Comment on above: Performed By: #### L DO, MGO, IPB, CHM7 #### [facility] (DEFAULT) [address] [place] [address] 24294 Platelets (Bld) [#/Vol] 124 10*3/uL Low 150-393 [facility] Comment on above: Performed By: #### L DO, MGO, IPB, CHM7 #### [facility] (DEFAULT) [address] [place] [address] 54083 RBC (Bld) [#/Vol] 3.68 10*6/uL Low 3.91-5.04 [facility] Comment on above: Performed By: #### L DO, MGO, IPB, CHM7 #### [facility] (DEFAULT) [address] [place] [address] RBC Distribution 20.1 % High 10.8-14.9 [facility] Comment on above: Performed By: #### L DO, MGO, IPB, CHM7 #### [facility] (DEFAULT) [address] [place] [address] WBC (Bld) [#/Vol] 6.39 10*3/uL Normal 3.99-11.19 [facility] Comment on above: Performed By: #### L DO, MGO, IPB, CHM7 #### [facility] (DEFAULT) [address] [place] [address] CHEM 7 (LYTES,BUN,CREA,GLUC) on 04-12-2025 Anion gap [Moles/Vol] 12 mmol/L 7 - 17 mmol/L [facility] Chloride [Moles/Vol] 110 mmol/L High 98 - 10 8 mmol/L [facility] CO2 [Moles/Vol] 23 mmol/L 21 - 31 mmol/L [facility] Creatinine [Mass/Vol] 0.74 mg/dL 0.50 - 1.20 mg/dL [facility] eGFR, CKD-EPI, Female 81 - PINF [facility] Glucose [Mass/Vol] 83 mg/dL 70 - 179 mg/dL [facility] Interpretation and review of laboratory results Abnormal [facility] Osmolality Calc [Osmolality] 297 [facility] Potassium [Moles/Vol] 3.7 mmol/L 3.5 - 5.0 mmol/L [facility] Sodium [Moles/Vol] 141 mmol/L 135 - 145 mmol/L [facility] Urea nitrogen [Mass/Vol] 25 mg/dL 7 - 25 mg/dL [facility] Urea nitrogen/Creatinine [Mass ratio] 34 mg/mg [facility] Anion gap [Moles/Vol] 12 mmol/L Normal 7-17 [facility] Comment on above: Performed By: #### L DO, MGO, IPB, CHM7 #### [facility] (DEFAULT) [address] [place] [address] 92959 Chloride [Moles/Vol] 110 mmol/L High 98-108 [facility] Comment on above: Performed By: #### L DO, MGO, IPB, CHM7 #### [facility] (DEFAULT) [address] [place] [address] 46358 CO2 [Moles/Vol] 23 mmol/L Normal 21-31 [facility] Comment on above: Performed By: #### L DO, MGO, IPB, CHM7 #### [facility] (DEFAULT) [address] [place] [address] 07986 Creatinine [Mass/Vol] 0.74 mg/dL Normal 0.50-1.20 [facility] Comment on above: Performed By: #### L DO, MGO, IPB, CHM7 #### [facility] (DEFAULT) [address] [place] [address] 77218 GFR/1.73 sq M.predicted among non-blacks MDRD (S/P/Bld) [Vol rate/Area] 81 mL/min/{1.73_m2} Normal >=60 [facility] Comment on above: Result Comment: Repo rted eGFR is based on the CKD-EPI 2020 equation using creatinine, age, and sex. Performed By: #### L DO, MGO, IPB, CHM7 #### [facility] (DEFAULT) [address] [place] [address] 20791 Glucose [Mass/Vol] 83 mg/dL Normal Nonfastin -179 mg/dL; Fastin-99 [facility] Comment on above: Performed By: #### L DO, MGO, IPB, CHM7 #### [facility] (DEFAULT) [address] [place] [address] 50686 Osmolality [Osmolality] 297 mosm/kg Normal 278-305 [facility] Comment on above: Performed By: #### L DO, MGO, IPB, CHM7 #### [facility] (DEFAULT) [address] [place] [address] 72420 Potassium [Moles/Vol] 3.7 mmol/L Normal 3.5-5.0 [facility] Comment on above: Performed By: #### L DO, MGO, IPB, CHM7 #### [facility] (DEFAULT) [address] [place] [address] 41016 Sodium [Moles/Vol] 141 mmol/L Normal 135-145 [facility] Comment on above: Performed By: #### L DO, MGO, IPB, CHM7 #### [facility] (DEFAULT) [address] [place] [address] 17075 Urea nitrogen [Mass/Vol] 25 mg/dL Normal 7-25 [facility] Comment on above: Performed By: #### L DO, MGO, IPB, CHM7 #### [facility] (DEFAULT) [address] [place] [address] 56499 Urea nitrogen/Creatinine [Mass ratio] 34 mg/mg Normal [facility] Comment on above: Performed By: #### L DO, MGO, IPB, CHM7 #### [facility] (DEFAULT) [address] [place] [address] CHEST WITHOUT CONTRASTon 04-12-2025 CT CHEST [...] right and small left pleural effusions. Normal [facility] CT Chest WO contraston 04-12 RADIOLOGY RADIOLOGY [facility] Radiology Study observation (narrative) [facility] IMMUNOCOMPROMISED RESPIRATOR Y PANELon 04-12-2025 Adenovirus - Pcr Not detected Normal Not Detected [facility] Comment on above: Order Comment: Viral transport media (red screw top with red liquid media) or BAL - Collection must be done while wearing N-95 mask, eye protection, gown and gloves. \\X09\\Results should be used in conjunction with other clinical and laboratory findings. This result does not rule out co-infections with pathogens that are not screened for by the Respiratory Panel(RP). This RP assay was performed using a Film Array multiplex nucleic acid assay. Performed By: #### I CRESP #### [facility] (DEFAULT) [address] [place] [address] Bordetella Parapertussis Not detected Normal Not Detected [facility] Comment on above: Order Comment: Viral transport media (red screw top with red liquid media) or BAL - Collection must be done while wearing N-95 mask, eye protection, gown and gloves. \\X09\\Results should be used in conjunction with other clinical and laboratory findings. This result does not rule out co-infections with pathogens that are not screened for by the Respiratory Panel(RP). This RP assay was performed using a Film Array multiplex nucleic acid assay. Performed By: #### I CRESP #### [facility] (DEFAULT) [address] [address] Bordetella Pertussis Not detected Normal Not Detected [facility] Comment on above: Order Comment: Viral transport media (red screw top with red liquid media) or BAL - Collection must be done while wearing N-95 mask, eye protection, gown and gloves. \\X09\\Results should be used in conjunction with other clinical and laboratory findings. This result does not rule out co-infections with pathogens that are not screened for by the Respiratory Panel(RP). This RP assay was performed using a Film Array multiplex nucleic acid assay. Performed By: #### I CRESP #### [facility] (DEFAULT) [address] [address] Chlamydia Pneumoniae Not detected Normal Not Detected [facility] Comment on above: Order Comment: Viral transport media (red screw top with red liquid media) or BAL - Collection must be done while wearing N-95 mask, eye protection, gown and gloves. \\X09\\Results should be used in conjunction with other clinical and laboratory findings. This result does not rule out co-infections with pathogens that are not screened for by the Respiratory Panel(RP). This RP assay was performed using a Film Array multiplex nucleic acid assay. Performed By: #### I CRESP #### [facility] (DEFAULT) [address] [address] Coronavirus 229E Not detected Normal Not Detected [facility] Comment on above: Order Comment: Viral transport media (red screw top with red liquid media) or BAL - Collection must be done while wearing N-95 mask, eye protection, gown and gloves. \\X09\\Results should be used in conjunction with other clinical and laboratory findings. This result does not rule out co-infections with pathogens that are not screened for by the Respiratory Panel(RP). This RP assay was performed using a Film Array multiplex nucleic acid assay. Performed By: #### I CRESP #### [facility] (DEFAULT) [address] [address] Coronavirus Hku1 Not detected Normal Not Detected [facility] Comment on above: Order Comment: Viral transport media (red screw top with red liquid media) or BAL - Collection must be done while wearing N-95 mask, eye protection, gown and gloves. \\X09\\Results should be used in conjunction with other clinical and laboratory findings. This result does not rule out co-infections with pathogens that are not screened for by the Respiratory Panel(RP). This RP assay was performed using a Film Array multiplex nucleic acid assay. Performed By: #### I CRESP #### [facility] (DEFAULT) [address] [place] [address] Coronavirus Nl63 Not detected Normal Not Detected [facility] Comment on above: Order Comment: Viral transport media (red screw top with red liquid media) or BAL - Collection must be done while wearing N-95 mask, eye protection, gown and gloves. \\X09\\Results should be used in conjunction with other clinical and laboratory findings. This result does not rule out co-infections with pathogens that are not screened for by the Respiratory Panel(RP). This RP assay was performed using a Film Array multiplex nucleic acid assay. Performed By: #### I CRESP #### [facility] (DEFAULT) [address] [place] [address] Coronavirus Oc43 Not detected Normal Not Detected [facility] Comment on above: Order Comment: Viral transport media (red screw top with red liquid media) or BAL - Collection must be done while wearing N-95 mask, eye protection, gown and gloves. \\X09\\Results should be used in conjunction with other clinical and laboratory findings. This result does not rule out co-infections with pathogens that are not screened for by the Respiratory Panel(RP). This RP assay was performed using a Film Array multiplex nucleic acid assay. Performed By: #### I CRESP #### [facility] (DEFAULT) [address] [address] Influenza A - Pcr Not detected Normal Not Detected [facility] Comment on above: Order Comment: Viral transport media (red screw top with red liquid media) or BAL - Collection must be done while wearing N-95 mask, eye protection, gown and gloves. \\X09\\Results should be used in conjunction with other clinical and laboratory findings. This result does not rule out co-infections with pathogens that are not screened for by the Respiratory Panel(RP). This RP assay was performed using a Film Array multiplex nucleic acid assay. Performed By: #### I CRESP #### [facility] (DEFAULT) [address] [address] Influenza B - Pcr Not detected Normal Not Detected [facility] Comment on above: Order Comment: Viral transport media (red screw top with red liquid media) or BAL - Collection must be done while wearing N-95 mask, eye protection, gown and gloves. \\X09\\Results should be used in conjunction with other clinical and laboratory findings. This result does not rule out co-infections with pathogens that are not screened for by the Respiratory Panel(RP). This RP assay was performed using a Film Array multiplex nucleic acid assay. Performed By: #### I CRESP #### [facility] (DEFAULT) [address] [place] [address] Metapneumovirus - Pcr Not detected Normal Not Detected [facility] Comment on above: Order Comment: Viral transport media (red screw top with red liquid media) or BAL - Collection must be done while wearing N-95 mask, eye protection, gown and gloves. \\X09\\Results should be used in conjunction with other clinical and laboratory findings. This result does not rule out co-infections with pathogens that are not screened for by the Respiratory Panel(RP). This RP assay was performed using a Film Array multiplex nucleic acid assay. Performed By: #### I CRESP #### [facility] (DEFAULT) [address] [place] [address] Mycoplasma Pneumoniae Not detected Normal Not Detected [facility] Comment on above: Order Comment: Viral transport media (red screw top with red liquid media) or BAL - Collection must be done while wearing N-95 mask, eye protection, gown and gloves. \\X09\\Results should be used in conjunction with other clinical and laboratory findings. This result does not rule out co-infections with pathogens that are not screened for by the Respiratory Panel(RP). This RP assay was performed using a Film Array multiplex nucleic acid assay. Performed By: #### I CRESP #### [facility] (DEFAULT) [address] [address] Parainfluenza 1 - Pcr Not detected Normal Not Detected [facility] Comment on above: Order Comment: Viral transport media (red screw top with red liquid media) or BAL - Collection must be done while wearing N-95 mask, eye protection, gown and gloves. \\X09\\Results should be used in conjunction with other clinical and laboratory findings. This result does not rule out co-infections with pathogens that are not screened for by the Respiratory Panel(RP). This RP assay was performed using a Film Array multiplex nucleic acid assay. Performed By: #### I CRESP #### [facility] (DEFAULT) [address] [address] Parainfluenza 2 - Pcr Not detected Normal Not Detected [facility] Comment on above: Order Comment: Viral transport media (red screw top with red liquid media) or BAL - Collection must be done while wearing N-95 mask, eye protection, gown and gloves. \\X09\\Results should be used in conjunction with other clinical and laboratory findings. This result does not rule out co-infections with pathogens that are not screened for by the Respiratory Panel(RP). This RP assay was performed using a Film Array multiplex nucleic acid assay. Performed By: #### I CRESP #### [facility] (DEFAULT) [address] [address] Parainfluenza 3 - Pcr Not detected Normal Not Detected [facility] Comment on above: Order Comment: Viral transport media (red screw top with red liquid media) or BAL - Collection must be done while wearing N-95 mask, eye protection, gown and gloves. \\X09\\Results should be used in conjunction with other clinical and laboratory findings. This result does not rule out co-infections with pathogens that are not screened for by the Respiratory Panel(RP). This RP assay was performed using a Film Array multiplex nucleic acid assay. Performed By: #### I CRESP #### [facility] (DEFAULT) [address] [place] [address] Parainfluenza 4 - Pcr Not detected Normal Not Detected [facility] Comment on above: Order Comment: Viral transport media (red screw top with red liquid media) or BAL - Collection must be done while wearing N-95 mask, eye protection, gown and gloves. \\X09\\Results should be used in conjunction with other clinical and laboratory findings. This result does not rule out co-infections with pathogens that are not screened for by the Respiratory Panel(RP). This RP assay was performed using a Film Array multiplex nucleic acid assay. Performed By: #### I CRESP #### [facility] (DEFAULT) [address] [place] [address] Rhinovirus/Enterovirus - PCR Not detected Normal Not Detected [facility] Comment on above: Order Comment: Viral transport media (red screw top with red liquid media) or BAL - Collection must be done while wearing N-95 mask, eye protection, gown and gloves. \\X09\\Results should be used in conjunction with other clinical and laboratory findings. This result does not rule out co-infections with pathogens that are not screened for by the Respiratory Panel(RP). This RP assay was performed using a Film Array multiplex nucleic acid assay. Performed By: #### I CRESP #### [facility] (DEFAULT) [address] [place] [address] Rsv - Pcr Not detected Normal Not Detected [facility] Comment on above: Order Comment: Viral transport media (red screw top with red liquid media) or BAL - Collection must be done while wearing N-95 mask, eye protection, gown and gloves. \\X09\\Results should be used in conjunction with other clinical and laboratory findings. This result does not rule out co-infections with pathogens that are not screened for by the Respiratory Panel(RP). This RP assay was performed using a Film Array multiplex nucleic acid assay. Performed By: #### I CRESP #### [facility] (DEFAULT) [address] [place] [address], [place] [address] SARS-CoV-2 (COVID-19) RNA LANE+probe Ql (Unsp spec) Not detected Normal NOT DETECTED [facility] Comment on above: Order Comment: Viral transport media (red screw top with red liquid media) or BAL - Collection must be done while wearing N-95 mask, eye protection, gown and gloves. \\X09\\Results should be used in conjunction with other clinical and laboratory findings. This result does not rule out co-infections with pathogens that are not screened for by the Respiratory Panel(RP). This RP assay was performed using a Film Array multiplex nucleic acid assay. Performed By: #### I CRESP #### [facility] (DEFAULT) [address] [place] [address] IONIZED CALCIUM, WHOLE BLOOD Ordered By: Megan Santana on 04-12-2025 Calcium.ionized (Bld) [Moles/Vol] 4.34 mg/dL Low 4.60 - 5.30 mg/dL [facility] Interpretation and review of laboratory results Abnormal [facility] IONIZED CALCIUM, WHOLE BLOOD on 04-12-2025 ICA 4.34 mg/dL Low 4.60-5.30 [facility] Comment on above: Performed By: #### L DO, MGO, IPB, CHM7 #### [facility] (DEFAULT) [address] [place] [address] MAGNESIUMon 04-12-2025 Magnesium [Mass/Vol] 2.2 mg/dL 1.6 - 2 .6 mg/dL [facility] Magnesium [Mass/Vol] 2.2 mg/dL Normal 1.6-2.6 [facility] Comment on above: Performed By: #### L DO, MGO, IPB, CHM7 #### [facility] (DEFAULT) [address] [place] [address] No Panel Informationon 04-12 Interpretation and review of laboratory results Normal [facility] PHOSPHATE, INORGANICon 04-12 Phosphate [Mass/Vol] 3 mg/dL 2.2 - 4 .6 mg/dL [facility] Phosphorous 3.0 mg/dL Normal 2.2-4.6 [facility] Comment on above: Performed By: #### L DO, MGO, IPB, CHM7 #### [facility] (DEFAULT) [address] [place] [address] Portable XR Chest Viewson RADIOLOGY RADIOLOGY [facility] Radiology Study observation (narrative) [facility] Respiratory virus DNA+RNA NA A+probe Nom (Unsp spec)Ordered By: Saloni Perdue on 04-12-[address]+probe Nom (Unsp spec) Not detected Not Detected [facility] B. parapertussis DNA LANE+probe Ql (Unsp spec) Not detected Not Detected [facility] B. pertussis DNA LANE+probe Ql (Unsp spec) Not detected Not Detected [facility] C. pneumoniae DNA LANE+probe Ql (Unsp spec) Not detected Not Detected [facility] FLUAV RNA LANE+probe Ql (Unsp spec) Not detected Not Detected [facility] FLUBV RNA LANE+probe Ql (Unsp spec) Not detected Not Detected [facility] HCoV 229E RNA LANE+non-probe Ql (Nph) Not detected Not Detected [facility] HCoV HKU1 RNA LANE+non-probe Ql (Nph) Not detected Not Detected [facility] HCoV NL63 RNA LANE+non-probe Ql (Nph) Not detected Not Detected [facility] HCoV OC43 RNA LANE+non-probe Ql (Nph) Not detected Not Detected [facility] hMPV A RNA LANE+probe Ql (Unsp spec) Not detected Not Detected [facility] Interpretation and review of laboratory results Normal [facility] M. pneumoniae DNA LANE+probe Ql (Unsp spec) Not detected Not Detected [facility] Parainfluenza virus [address]+probe Ql (Unsp spec) Not detected Not Detected [facility] Parainfluenza virus [address]+probe Ql (Unsp spec) Not detected Not Detected [facility] Parainfluenza virus 3 [address] LANE+probe Ql (Unsp spec) Not detected Not Detected [facility] Parainfluenza virus 4 RNA LANE+probe Ql (Unsp spec) Not detected Not Detected [facility] Rhinovirus+Enterovirus RNA LANE+probe Ql (Unsp spec) Not detected Not Detected [facility] RSV RNA LANE+probe Ql (Unsp spec) Not detected Not Detected [facility] SARS-CoV-2 (COVID-19) RNA LANE+probe Ql (Unsp spec) Not detected NOT DETECTED [facility] XR CHEST 1 VIEW PORTABLEon 0 04-12-2025 [...] fusion hardware is partially included in the [id number]. IMPRESSION: Interval development of dense consolidative and atelectatic opacities in the lower right lung. Consider mild aspiration or mucous plugging. Enlarging right greater than left pleural effusions. Normal [facility] XR Cervical spine 2 Viewson 04-12-2025 RADIOLOGY RADIOLOGY [facility] Radiology Study observation (narrative) [facility] XR Cervical spine 2 ViewsOrd ered By: Jagdeep Gonzalez on 04-12-2025 [facility] Work Phone: XR SPINE CERVICAL 2-3 [...] posterior fusion C4-T2 without acute complication. Normal [facility] *ARTERIAL LINEon 04-11-2025 [facility] CBC,PLATELETSon 04-11-2025 Erythrocyte distribution width (RBC) [Ratio] 19.7 % High 10.8 - 14.9 % [facility] Hematocrit (Bld) [Volume fraction] 30.9 % Low 34.9 - 44.3 % [facility] Hemoglobin (Bld) [Mass/Vol] 10.4 g/dL Low 11.4 - 15.2 g/dL [facility] Interpretation and review of laboratory results Abnormal [facility] MCH (RBC) [Entitic mass] 30.3 pg 25.9 - 33.9 pg [facility] MCHC (RBC) [Mass/Vol] 33.7 g/dL 31.4 - 35.9 g/dL [facility] MCV (RBC) [Entitic vol] 90.1 fL 79.6 - 97.7 fL [facility] Platelet mean volume (Bld) [Entitic vol] 9.9 fL 8.5 - 12.2 fL [facility] Platelets (Bld) [#/Vol] 130 10*3/uL Low 150 - 393 K/uL [facility] RBC (Bld) [#/Vol] 3.43 10*6/uL Low [facility] WBC (Bld) [#/Vol] 5.22 10*3/uL 3.99 - 11.19 K/uL [facility] Hematocrit (Bld) [Volume fraction] 30.9 % Low 34.9-44.3 [facility] Comment on above: Performed By: #### Leonel SVALL #### [facility] (DEFAULT) [address] [place] [address] Hemoglobin (Bld) [Mass/Vol] 10.4 g/dL Low 11.4-15.2 [facility] Comment on above: Performed By: #### Leonel WHITEALL #### [facility] (DEFAULT) [address] [place] [address] MCV (RBC) [Entitic vol] 90.1 fL Normal 79.6-97.7 [facility] Comment on above: Performed By: #### Leonel SVALL #### [facility] (DEFAULT) [address] [place] [address] Mean Cell Hgb 30.3 pg Normal 25.9-33.9 [facility] Comment on above: Performed By: #### Leonel SVALL #### [facility] (DEFAULT) [address] [place] [address] Mean Cell Hgb Conc 33.7 g/dL Normal 31.4-35.9 [facility] Comment on above: Performed By: #### Leonel SVALL #### [facility] (DEFAULT) [address] [place] [address] Platelet mean volume (Bld) [Entitic vol] 9.9 fL Normal 8.5-12.2 [facility] Comment on above: Performed By: #### Leonel SVALL #### [facility] (DEFAULT) [address] [place] [address] Platelets (Bld) [#/Vol] 130 10*3/uL Low 150-393 [facility] Comment on above: Performed By: #### Leonel SVALL #### [facility] (DEFAULT) [address] [place] [address] RBC (Bld) [#/Vol] 3.43 10*6/uL Low 3.91-5.04 [facility] Comment on above: Performed By: #### G SVALL #### [facility] (DEFAULT) [address] [place] [address] RBC Distribution 19.7 % High 10.8-14.9 [facility] Comment on above: Performed By: #### G SVALL #### [facility] (DEFAULT) [address] [place] [address] WBC (Bld) [#/Vol] 5.22 10*3/uL Normal 3.99-11.19 [facility] Comment on above: Performed By: #### G SVALL #### [facility] (DEFAULT) [address] [place] [address] Erythrocyte distribution width (RBC) [Ratio] 18.7 % High 10.8 - 14.9 % [facility] Hematocrit (Bld) [Volume fraction] 32 % Low 34.9 - 44.3 % [facility] Hemoglobin (Bld) [Mass/Vol] 10.9 g/dL Low 11.4 - 15.2 g/dL [facility] Interpretation and review of laboratory results Abnormal [facility] MCH (RBC) [Entitic mass] 30.6 pg 25.9 - 33.9 pg [facility] MCHC (RBC) [Mass/Vol] 34.1 g/dL 31.4 - 35.9 g/dL [facility] MCV (RBC) [Entitic vol] 89.9 fL 79.6 - 97.7 fL [facility] Platelet mean volume (Bld) [Entitic vol] 8.9 fL 8.5 - 12.2 fL [facility] Platelets (Bld) [#/Vol] 79 10*3/uL Low 150 - 393 K/uL [facility] RBC (Bld) [#/Vol] 3.56 10*6/uL Low [facility] WBC (Bld) [#/Vol] 6.03 10*3/uL 3.99 - 11.19 K/[facility]L [facility]emat[facility]Bld[facility] [Volume fraction] 32.0 % Low 34.9-44.3 [facility] Comment on above: Performed By: #### H EMOGC ####[facility] (DEFAULT)[address] [facility] [place] [address] Hemoglobin (Bld) [Mass/Vol] 10.9 g/dL Low 11.4-15.2 [facility] Comment on above: Performed By: #### H EMOGC ####[facility] (DEFAULT)[address] [place] [address] MCV (RBC) [Entitic vol] 89.9 fL Normal 79.6-97.7 [facility] Comment on above: Performed By: #### H EMOGC ####[facility] (DEFAULT)[address] [place] [address] Mean Cell Hgb 30.6 pg Normal 25.9-33.9 [facility] Comment on above: Performed By: #### H EMOGC ####[facility] (DEFAULT)[address] [place] [address] Mean Cell Hgb Conc 34.1 g/dL Normal 31.4-35.9 [facility] Comment on above: Performed By: #### H EMOGC ####[facility] (DEFAULT)[address] [place] [address] Platelet mean volume (Bld) [Entitic vol] 8.9 fL Normal 8.5-12.2 [facility] Comment on above: Result Comment: This is an appended report. These results have been appended to a previously preliminary verified report. Performed By: #### H EMOGC ####[facility] (DEFAULT)[address] [facility] [place] [address] Platelets (Bld) [#/Vol] 79 10*3/uL Low 150-393 [facility] Comment on above: Result Comment: Resu lts inconsistent with previous results. This is an appended report. These results have been appended to a previously preliminary verified report. Performed By: #### [facility] ####[facility] (DEFAULT)[address] [place] [address] RBC (Bld) [#/Vol] 3.56 10*6/uL Low 3.91-5.04 [facility] Comment on above: Performed By: #### H [facility] ####[facility] (DEFAULT)[address] [place] [address] RBC Distribution 18.7 % High 10.8-14.9 [facility] Comment on above: Performed By: #### H [facility] ####[facility] (DEFAULT)[address] [place] [address] WBC (Bld) [#/Vol] 6.03 10*3/uL Normal 3.99-11.19 [facility] Comment on above: Performed By: #### H [facility] ####[facility] (DEFAULT)[address] [place] [address] CHEM 7 (LYTES,BUN,CREA,GLUC) on 04-11-2025 Anion gap [Moles/Vol] 12 mmol/L 7 - 17 mmol/L [facility] Chloride [Moles/Vol] 110 mmol/L High 98 - 10 8 mmol/L [facility] CO2 [Moles/Vol] 21 mmol/L 21 - 31 mmol/L [facility] Creatinine [Mass/Vol] 0.66 mg/dL 0.50 - 1.20 mg/dL [facility] eGFR, CKD-EPI, Female 88 - PINF [facility] Glucose [Mass/Vol] 113 mg/dL 70 - 179 mg/dL [facility] Osmolality Calc [Osmolality] 298 [facility] Potassium [Moles/Vol] 3.6 mmol/L 3.5 - 5.0 mmol/L [facility] Sodium [Moles/Vol] 139 mmol/L 135 - 145 mmol/L [facility] Urea nitrogen [Mass/Vol] 31 mg/dL High 7 - 25 mg/dL [facility] Urea nitrogen/Creatinine [Mass ratio] 47 mg/mg [facility] Anion gap [Moles/Vol] 12 mmol/L Normal 7-17 [facility] Comment on above: Performed By: #### L DO, MGO, IPB, CHM7 #### [facility] (DEFAULT) [address] [place] [address] Chloride [Moles/Vol] 110 mmol/L High 98-108 [facility] Comment on above: Performed By: #### L DO, MGO, IPB, CHM7 #### [facility] (DEFAULT) [address] [place] [address] CO2 [Moles/Vol] 21 mmol/L Normal 21-31 [facility] Comment on above: Performed By: #### L DO, MGO, IPB, CHM7 #### [facility] (DEFAULT) [address] [place] [address] Creatinine [Mass/Vol] 0.66 mg/dL Normal 0.50-1.20 [facility] Comment on above: Performed By: #### L DO, MGO, IPB, CHM7 #### [facility] (DEFAULT) [address] [place] [address] GFR/1.73 sq M.predicted among non-blacks MDRD (S/P/Bld) [Vol rate/Area] 88 mL/min/{1.73_m2} Normal >=60 [facility] Comment on above: Result Comment: Repo rted eGFR is based on the CKD-EPI 2020 equation using creatinine, age, and sex. Performed By: #### L DO, MGO, IPB, CHM7 #### [facility] (DEFAULT) [address] [place] [address] Glucose [Mass/Vol] 113 mg/dL Normal Nonfastin -179 mg/dL; Fastin-99 [facility] Comment on above: Performed By: #### L DO, MGO, IPB, CHM7 #### [facility] (DEFAULT) [address] [place] [address] Osmolality [Osmolality] 298 mosm/kg Normal 278-305 [facility] Comment on above: Performed By: #### L DO, MGO, IPB, CHM7 #### [facility] (DEFAULT) [address] [place] [address] Potassium [Moles/Vol] 3.6 mmol/L Normal 3.5-5.0 [facility] Comment on above: Performed By: #### L DO, MGO, IPB, CHM7 #### [facility] (DEFAULT) [address] [place] [address] Sodium [Moles/Vol] 139 mmol/L Normal 135-145 [facility] Comment on above: Performed By: #### L DO, MGO, IPB, CHM7 #### [facility] (DEFAULT) [address] [place] [address] Urea nitrogen [Mass/Vol] 31 mg/dL High 7-25 [facility] Comment on above: Performed By: #### L DO, MGO, IPB, CHM7 #### [facility] (DEFAULT) [address] [place] [address] Urea nitrogen/Creatinine [Mass ratio] 47 mg/mg Normal [facility] Comment on above: Performed By: #### L DO, MGO, IPB, CHM7 #### [facility] (DEFAULT) [address] [place] [address] CKon 04-11-2025 CK [Catalytic activity/Vol] 840 U/L High 30 - 184 U/L [facility] CK [Catalytic activity/Vol] 840 U/L High 30-184 [facility] Comment on above: Order Comment: While on Propofol. Performed By: #### L DO, MGO, IPB, CHM7 #### [facility] (DEFAULT) [address] [place] [address] GLUCOSE POCon 04-11-2025 Glucose [Mass/Vol] 123 mg/dL 70 - 179 mg/dL [facility] POC Sample Type CAPBL [facility] IONIZED CALCIUM, WHOLE BLOOD Ordered By: Jossy Ortega on 04-11-2025 Calcium.ionized (Bld) [Moles/Vol] 4.63 mg/dL 4.60 - 5.30 mg/dL [facility] Interpretation and review of laboratory results Normal [facility] IONIZED CALCIUM, WHOLE BLOOD on 04-11-2025 ICA 4.63 mg/dL Normal 4.60-5.30 [facility] Comment on above: Performed By: #### G SVALL #### [facility] (DEFAULT) [address] [place] [address] MAGNESIUMon 04-11-2025 Magnesium [Mass/Vol] 2.3 mg/dL 1.6 - 2 .6 mg/dL [facility] Magnesium [Mass/Vol] 2.3 mg/dL Normal 1.6-2.6 [facility] Comment on above: Performed By: #### L DO, MGO, IPB, CHM7 #### [facility] (DEFAULT) [address] [place] [address] [id number] No Panel Informationon 04-11 [facility] Interpretation and review of laboratory results Abnormal [facility] Interpretation and review of laboratory results Normal [facility] PHOSPHATE, INORGANICon 04-11 Phosphate [Mass/Vol] 3.1 mg/dL 2.2 - 4 .6 mg/dL [facility] Phosphorous 3.1 mg/dL Normal 2.2-4.6 [facility] Comment on above: Performed By: #### L DO, MGO, IPB, CHM7 #### [facility] (DEFAULT) [address] [place] [address] 46935 PREPARE TO TRANSFUSE PLATELE Ton 04-11-2025 ABO/RH(D) TYPE Positive [facility] BLOOD COMPONENT TYPE Irradiated Leukored uced Platelet Apheresis [facility] EXPIRATION DATE [id number] [facility] Product ABO/RH(D) Positive [facility] Product ABO/RH(D) NUMBER 6200 [facility] PRODUCT CODE [id number] [facility] UNIT NUMBER [id number] [facility] UNIT STATUS transfused [facility] PT,INR,PTTon 04-11-2025 aPTT Coag (PPP) [Time] 25.1 s [facility] INR Coag (Bld) [Relative time] 1.1 {INR} 0.9 - 1.1 [facility] Interpretation and review of laboratory results Normal [facility] PT Coag (PPP) [Time] 14.1 s [facility] aPTT Coag (Bld) [Time] 25.1 s Normal 24.0-34.3 [facility] Comment on above: Performed By: #### G SVALL #### [facility] (DEFAULT) [address] [place] [address] 41981 INR Coag (PPP) [Relative time] 1.1 {INR} Normal 0.9-1.1 [facility] Comment on above: Performed By: #### G SVALL #### [facility] (DEFAULT) [address] [place] [address] 96337 PT Coag (PPP) [Time] 14.1 s Normal 11.9-14.2 [facility] Comment on above: Performed By: #### G SVALL #### [facility] (DEFAULT) [address] [place] [address] 49448 Portable XR Chest Viewson RADIOLOGY RADIOLOGY [facility] Portable XR Chest ViewsOrder ed By: Ubaldo Pennington on 04-11-2025 [facility] Work Phone: TRIGLYCERIDEon 04-11-2025 Triglyceride [Mass/Vol] 92 mg/dL NINF - 150 mg/dL [facility] Triglyceride [Mass/Vol] 92 mg/dL Normal <150 [facility] Comment on above: Order Comment: While on Propofol. Result Comment: [<15 0 mg/dL: Desirable] [150-199 mg/dL: Borderline] [200-499 mg/dL: High] [>500 mg/dL: Very High] Performed By: #### L DO, MGO, IPB, CHM7 #### [facility] (DEFAULT) [address] [place] [address] XR CHEST 1 VIEW PORTABLEon 0 04-11-2025 [...] overlying the upper SVC. No pneumothorax. Normal [facility] ARTERIAL BLOOD GAS (FULL GARCIA EL)on 04-10-2025 Base excess Calc (Bld) [Moles/Vol] -3.6000 mmol/L Low -3.0 - 3.0 mmol/L [facility] Calcium.ionized (Bld) [Mass/Vol] 4.38 mg/dL Low 4.60 - 5.30 mg/dL [facility] Carboxyhemoglobin (Bld) [Mass fraction] 1.3 % NINF - 1.5 % [facility] CO2 (Bld) [Partial pressure] 39 mm[Hg] [facility] Glucose [Mass/Vol] 141 mg/dL 70 - 179 mg/dL [facility] HCO3 (Bld) [Moles/Vol] 21 mmol/L Low 22 - 28 mmol/L [facility] Hematocrit (Bld) [Volume fraction] 32 % Low 34 - 46 % [facility] Hemoglobin (Bld) [Mass/Vol] 10.2 g/dL Low 11.4 - 15.2 g/dL [facility] Interpretation and review of laboratory results Abnormal [facility] Lactate [Moles/Vol] 1.3 mmol/L 0.5 - 1. 6 mmol/L [facility] Methemoglobin (Bld) [Mass fraction] 1.2 % NINF - 1.5 % [facility] Oxygen (Bld) [Partial pressure] 158 mm[Hg] High [facility] Oxygen saturation in Blood 99 % High 94 - 98 % [facility] Oxyhemoglobin 97 % 94 - 98 % [facility] pH (Bld) 7.35 [pH] 7.35 - 7.45 [facility] Potassium [Moles/Vol] 3.7 mmol/L 3.5 - 5.0 mmol/L [facility] Sodium [Moles/Vol] 140 mmol/L 135 - 145 mmol/L [facility] Specimen source Nom (Unsp spec) Arterial [facility] Base Excess -3.6 mmol/L Low -3.0-3.0 [facility] Comment on above: Performed By: #### L DO, MGO, IPB, CHM7 #### [facility] (DEFAULT) [address] [address] Carboxyhemoglobin 1.3 % Normal <=1.5 [facility] Comment on above: Performed By: #### L DO, MGO, IPB, CHM7 #### [facility] (DEFAULT) [address] [address] Glucose [Mass/Vol] 141 mg/dL Normal Nonfastin g Glucose: 70-179 [facility] Comment on above: Performed By: #### L DO, MGO, IPB, CHM7 #### [facility] (DEFAULT) [address] [place] [address] 97571 HCO3 (Bld) [Moles/Vol] 21 mmol/L Low 22-28 [facility] Comment on above: Performed By: #### L DO, MGO, IPB, CHM7 #### [facility] (DEFAULT) [address] [place] [address] 75035 Hematocrit (Bld) [Volume fraction] 32 % Low 34-46 [facility] Comment on above: Performed By: #### L DO, MGO, IPB, CHM7 #### [facility] (DEFAULT) [address] [place] [address] 60560 Hemoglobin (Bld) [Mass/Vol] 10.2 g/dL Low 11.4-15.2 [facility] Comment on above: Performed By: #### L DO, MGO, IPB, CHM7 #### [facility] (DEFAULT) [address] [place] [address] 04842 Ionized Calcium, Whole Blood 4.38 mg/dL Low 4.60-5.30 [facility] Comment on above: Performed By: #### L DO, MGO, IPB, CHM7 #### [facility] (DEFAULT) [address] [place] [address] 09742 Lactate, Whole Blood 1.3 mmol/L Normal 0.5-1.6 [facility] Comment on above: Performed By: #### L DO, MGO, IPB, CHM7 #### [facility] (DEFAULT) [address] [place] [address] 49568 Methemoglobin 1.2 % Normal <=1.5 [facility] Comment on above: Performed By: #### L DO, MGO, IPB, CHM7 #### [facility] (DEFAULT) [address] [place] [address] 34830 Oxygen saturation in Blood 99 % High 94-98 [facility] Comment on above: Performed By: #### L DO, MGO, IPB, CHM7 #### [facility] (DEFAULT) [address] [place] [address] 22237 Oxyhemoglobin 97 % Normal 94-98 [facility] Comment on above: Performed By: #### L DO, MGO, IPB, CHM7 #### [facility] (DEFAULT) [address] [place] [address] 03171 pCO2 39 mm Hg Normal 32-48 [facility] Comment on above: Performed By: #### L DO, MGO, IPB, CHM7 #### [facility] (DEFAULT) [address] [place] [address] 60492 pH, Arterial 7.35 Normal 7.35-7.45 [facility] Comment on above: Performed By: #### L DO, MGO, IPB, CHM7 #### [facility] (DEFAULT) [address] [place] [address] 46594 pO2 158 mm Hg High 83-108 [facility] Comment on above: Performed By: #### L DO, MGO, IPB, CHM7 #### [facility] (DEFAULT) [address] [place] [address] 45026 Potassium [Moles/Vol] 3.7 mmol/L Normal 3.5-5.0 [facility] Comment on above: Performed By: #### L DO, MGO, IPB, CHM7 #### [facility] (DEFAULT) [address] [place] [address] 39548 Sodium [Moles/Vol] 140 mmol/L Normal 135-145 [facility] Comment on above: Performed By: #### L DO, MGO, IPB, CHM7 #### [facility] (DEFAULT) [address] [place] [address] 07170 Specimen type Nom (Spec) Arterial Normal [facility] Comment on above: Performed By: #### L DO, MGO, IPB, CHM7 #### [facility] (DEFAULT) [address] [place] [address] 60161 Base Excess -3.8 mmol/L Low -3.0-3.0 [facility] Comment on above: Performed By: #### L DO, MGO, IPB, CHM7 #### [facility] (DEFAULT) [address] [place] [address] 60845 Carboxyhemoglobin 1.4 % Normal <=1.5 [facility] Comment on above: Performed By: #### L DO, MGO, IPB, CHM7 #### [facility] (DEFAULT) [address] [place] [address] 63870 Glucose [Mass/Vol] 124 mg/dL Normal Nonfastin g Glucose: 70-179 [facility] Comment on above: Performed By: #### L DO, MGO, IPB, CHM7 #### [facility] (DEFAULT) [address] [place] [address] 64169 HCO3 (Bld) [Moles/Vol] 20 mmol/L Low 22-28 [facility] Comment on above: Performed By: #### L DO, MGO, IPB, CHM7 #### [facility] (DEFAULT) [address] [place] [address] 87647 Hematocrit (Bld) [Volume fraction] 25 % Low 34-46 [facility] Comment on above: Performed By: #### L DO, MGO, IPB, CHM7 #### [facility] (DEFAULT) [address] [place] [address] 73043 Hemoglobin (Bld) [Mass/Vol] 8.1 g/dL Low 11.4-15.2 [facility] Comment on above: Performed By: #### L DO, MGO, IPB, CHM7 #### [facility] (DEFAULT) [address] [place] [address] 98193 Ionized Calcium, Whole Blood 4.68 mg/dL Normal 4.60-5.30 [facility] Comment on above: Performed By: #### L DO, MGO, IPB, CHM7 #### [facility] (DEFAULT) [address] [place] [address] 64489 Lactate, Whole Blood 1.4 mmol/L Normal 0.5-1.6 [facility] Comment on above: Performed By: #### L DO, MGO, IPB, CHM7 #### [facility] (DEFAULT) [address] [place] [address] 06626 Methemoglobin 1.2 % Normal <=1.5 [facility] Comment on above: Performed By: #### L DO, MGO, IPB, CHM7 #### [facility] (DEFAULT) [address] [place] [address] 40961 Oxygen saturation in Blood 100 % High 94-98 [facility] Comment on above: Performed By: #### L DO, MGO, IPB, CHM7 #### [facility] (DEFAULT) [address] [place] [address] 44627 Oxyhemoglobin 97 % Normal 94-98 [facility] Comment on above: Performed By: #### L DO, MGO, IPB, CHM7 #### [facility] (DEFAULT) [address] [place] [address] 97100 pCO2 31 mm Hg Low 32-48 [facility] Comment on above: Performed By: #### L DO, MGO, IPB, CHM7 #### [facility] (DEFAULT) [address] [place] [address] 44138 pH, Arterial 7.42 Normal 7.35-7.45 [facility] Comment on above: Performed By: #### L DO, MGO, IPB, CHM7 #### [facility] (DEFAULT) [address] [place] [address] 22195 pO2 358 mm Hg High 83-108 [facility] Comment on above: Performed By: #### L DO, MGO, IPB, CHM7 #### [facility] (DEFAULT) [address] [place] [address] 81274 Potassium [Moles/Vol] 3.9 mmol/L Normal 3.5-5.0 [facility] Comment on above: Performed By: #### L DO, MGO, IPB, CHM7 #### [facility] (DEFAULT) [address] [place] [address] 55651 Sodium [Moles/Vol] 139 mmol/L Normal 135-145 [facility] Comment on above: Performed By: #### L DO, MGO, IPB, CHM7 #### [facility] (DEFAULT) [address] [place] [address] 44094 Specimen type Nom (Spec) Arterial Normal [facility] Comment on above: Performed By: #### L DO, MGO, IPB, CHM7 #### [facility] (DEFAULT) [address] [place] [address] 48029 ARTERIAL BLOOD GAS (FULL GARCIA EL)Ordered By: Vickie Talamantes on 04-10-2025 Base excess Calc (Bld) [Moles/Vol] -3.8000 mmol/L Low -3.0 - 3.0 mmol/L [facility] Calcium.ionized (Bld) [Mass/Vol] 4.68 mg/dL 4.60 - 5.30 mg/dL [facility] Carboxyhemoglobin (Bld) [Mass fraction] 1.4 % NINF - 1.5 % [facility] CO2 (Bld) [Partial pressure] 31 mm[Hg] Low [facility] Glucose [Mass/Vol] 124 mg/dL 70 - 179 mg/dL [facility] HCO3 (Bld) [Moles/Vol] 20 mmol/L Low 22 - 28 mmol/L [facility] Hematocrit (Bld) [Volume fraction] 25 % Low 34 - 46 % [facility] Hemoglobin (Bld) [Mass/Vol] 8.1 g/dL Low 11.4 - 15.2 g/dL [facility] Interpretation and review of laboratory results Abnormal [facility] Lactate [Moles/Vol] 1.4 mmol/L 0.5 - 1. 6 mmol/L [facility] Methemoglobin (Bld) [Mass fraction] 1.2 % NINF - 1.5 % [facility] Oxygen (Bld) [Partial pressure] 358 mm[Hg] High [facility] Oxygen saturation in Blood 100 % High 94 - 98 % [facility] Oxyhemoglobin 97 % 94 - 98 % [facility] pH (Bld) 7.42 [pH] 7.35 - 7.45 [facility] Potassium [Moles/Vol] 3.9 mmol/L 3.5 - 5.0 mmol/L [facility] Sodium [Moles/Vol] 139 mmol/L 135 - 145 mmol/L [facility] Specimen source Nom (Unsp spec) Arterial [facility] CBC,PLATELETSon 04-10-2025 Erythrocyte distribution width (RBC) [Ratio] 27.8 % High 10.8 - 14.9 % [facility] Hematocrit (Bld) [Volume fraction] 25.9 % Low 34.9 - 44.3 % [facility] Hemoglobin (Bld) [Mass/Vol] 8.3 g/dL Low 11.4 - 15.2 g/dL [facility] Interpretation and review of laboratory results Abnormal [facility] MCH (RBC) [Entitic mass] 30.4 pg 25.9 - 33.9 pg [facility] MCHC (RBC) [Mass/Vol] 32 g/dL 31.4 - 35.9 g/dL [facility] MCV (RBC) [Entitic vol] 94.9 fL 79.6 - 97.7 fL [facility] Platelet mean volume (Bld) [Entitic vol] 9.4 fL 8.5 - 12.2 fL [facility] Platelets (Bld) [#/Vol] 152 10*3/uL 150 - 393 K/uL [facility] RBC (Bld) [#/Vol] 2.73 10*6/uL Low [facility] WBC (Bld) [#/Vol] 6.58 10*3/uL 3.99 - 11.19 K/uL [facility] Hematocrit (Bld) [Volume fraction] 25.9 % Low 34.9-44.3 [facility] Comment on above: Performed By: #### X M #### [facility] (DEFAULT) [address] [address] Hemoglobin (Bld) [Mass/Vol] 8.3 g/dL Low 11.4-15.2 [facility] Comment on above: Performed By: #### X M #### [facility] (DEFAULT) [address] [address] MCV (RBC) [Entitic vol] 94.9 fL Normal 79.6-97.7 [facility] Comment on above: Performed By: #### X M #### [facility] (DEFAULT) [address] [address] Mean Cell Hgb 30.4 pg Normal 25.9-33.9 [facility] Comment on above: Performed By: #### X M #### [facility] (DEFAULT) [address] [address] Mean Cell Hgb Conc 32.0 g/dL Normal 31.4-35.9 [facility] Comment on above: Performed By: #### X M #### [facility] (DEFAULT) [address] [address] Platelet mean volume (Bld) [Entitic vol] 9.4 fL Normal 8.5-12.2 [facility] Comment on above: Performed By: #### X M #### [facility] (DEFAULT) [address] [address] Platelets (Bld) [#/Vol] 152 10*3/uL Normal 150-393 [facility] Comment on above: Performed By: #### X M #### [facility] (DEFAULT) [address] [place] [address] RBC (Bld) [#/Vol] 2.73 10*6/uL Low 3.91-5.04 [facility] Comment on above: Performed By: #### X M #### [facility] (DEFAULT) [address] [place] [address] RBC Distribution 27.8 % High 10.8-14.9 [facility] Comment on above: Performed By: #### X M #### [facility] (DEFAULT) [address] [place] [address] 35202 WBC (Bld) [#/Vol] 6.58 10*3/uL Normal 3.99-11.19 [facility] Comment on above: Performed By: #### X M #### [facility] (DEFAULT) [address] [place] [address] 75492 CHEM 7 (LYTES,BUN,CREA,GLUC) on 04-10-2025 Anion gap [Moles/Vol] 15 mmol/L 7 - 17 mmol/L [facility] Chloride [Moles/Vol] 112 mmol/L High 98 - 10 8 mmol/L [facility] CO2 [Moles/Vol] 17 mmol/L Low 21 - 31 mmol/L [facility] Creatinine [Mass/Vol] 0.98 mg/dL 0.50 - 1.20 mg/dL [facility] eGFR, CKD-EPI, Female 58 Low - PINF [facility] Glucose [Mass/Vol] 147 mg/dL 70 - 179 mg/dL [facility] Osmolality Calc [Osmolality] [facility] Pot[facility] [Moles/Vol] 3.7 mmol/L 3.5 - 5.0 mmol/L [facility] Sodium [Moles/Vol] 140 mmol/L 135 - 145 mmol/L [facility] Urea nitrogen [Mass/Vol] 28 mg/dL High 7 - 25 mg/dL [facility] Urea nitrogen/Creatinine [Mass ratio] 29 mg/mg [facility] Anion gap [Moles/Vol] 15 mmol/L Normal 7-17 [facility] Comment on above: Performed By: #### L DO, MGO, IPB, CHM7 #### [facility] (DEFAULT) [address] [place] [address] 24742 Chloride [Moles/Vol] 112 mmol/L High 98-108 [facility] Comment on above: Performed By: #### L DO, MGO, IPB, CHM7 #### [facility] (DEFAULT) [address] [place] [address] 06623 CO2 [Moles/Vol] 17 mmol/L Low 21-31 [facility] Comment on above: Performed By: #### L DO, MGO, IPB, CHM7 #### [facility] (DEFAULT) [address] [place] [address] 86156 Creatinine [Mass/Vol] 0.98 mg/dL Normal 0.50-1.20 [facility] Comment on above: Performed By: #### L DO, MGO, IPB, CHM7 #### [facility] (DEFAULT) [address] [place] [address] 61096 GFR/1.73 sq M.predicted among non-blacks MDRD (S/P/Bld) [Vol rate/Area] 58 mL/min/{1.73_m2} Low >=60 [facility] Comment on above: Result Comment: Repo rted eGFR is based on the CKD-EPI 2020 equation using creatinine, age, and sex. Performed By: #### L DO, MGO, IPB, CHM7 #### [facility] (DEFAULT) [address] [place] [address] 07547 Glucose [Mass/Vol] 147 mg/dL Normal Nonfastin -179 mg/dL; Fastin-99 [facility] Comment on above: Performed By: #### L DO, MGO, IPB, CHM7 #### [facility] (DEFAULT) [address] [place] [address] 79049 Osmolality [Osmolality] 301 mosm/kg Normal 278-305 [facility] Comment on above: Performed By: #### L DO, MGO, IPB, CHM7 #### [facility] (DEFAULT) [address] [place] [address] 46044 Potassium [Moles/Vol] 3.7 mmol/L Normal 3.5-5.0 [facility] Comment on above: Performed By: #### L DO, MGO, IPB, CHM7 #### [facility] (DEFAULT) [address] [place] [address] 74230 Sodium [Moles/Vol] 140 mmol/L Normal 135-145 [facility] Comment on above: Performed By: #### L DO, MGO, IPB, CHM7 #### [facility] (DEFAULT) [address] [place] [address] 49266 Urea nitrogen [Mass/Vol] 28 mg/dL High 7-25 [facility] Comment on above: Performed By: #### L DO, MGO, IPB, CHM7 #### [facility] (DEFAULT) [address] [place] [address] 18825 Urea nitrogen/Creatinine [Mass ratio] 29 mg/mg Normal [facility] Comment on above: Performed By: #### L DO, MGO, IPB, CHM7 #### [facility] (DEFAULT) [address] [place] [address] 59461 HEMOGLOBIN & HEMATOCRITon Hematocrit (Bld) [Volume fraction] 28.7 % Low 34.9 - 44.3 % [facility] Hemoglobin (Bld) [Mass/Vol] 9.4 g/dL Low 11.4 - 15.2 g/dL [facility] Interpretation and review of laboratory results Abnormal [facility] Hematocrit (Bld) [Volume fraction] 28.7 % Low 34.9-44.3 [facility] Comment on above: Order Comment: Post blood transfusion Performed By: #### H H ####[facility] (DEFAULT)[address] [place] [address] 32848 Hemoglobin (Bld) [Mass/Vol] 9.4 g/dL Low 11.4-15.2 [facility] Comment on above: Order Comment: Post blood transfusion Performed By: #### H H ####[facility] (DEFAULT)[address] [place] [address] 96977 HEPATIC FUNCTION PANELon Albumin [Mass/Vol] 2.8 g/dL Low 3.5 - 5.0 g/dL [facility] ALP [Catalytic activity/Vol] 18 U/L Low 32 - 126 U/L [facility] ALT [Catalytic activity/Vol] 19 U/L 9 - 48 U/L [facility] AST [Catalytic activity/Vol] 38 U/L 10 - 39 U/L [facility] Bilirubin [Mass/Vol] 0.6 mg/dL [facility] - 1.5 mg/dL [facility] Bilirubin.direct [Mass/Vol] 0.1 mg/dL [facility] - 0.3 mg/dL [facility] Interpretation and review of laboratory results Abnormal [facility] Protein [Mass/Vol] 4.5 g/dL Low 6.4 - 8.3 g/dL [facility] Albumin [Mass/Vol] 2.8 g/dL Low 3.5-5.0 [facility] Comment on above: Performed By: #### L DO, MGO, IPB, CHM7 #### [facility] (DEFAULT) [address] [address] ALP [Catalytic activity/Vol] 18 U/L Low 32-126 [facility] Comment on above: Performed By: #### L DO, MGO, IPB, CHM7 #### [facility] (DEFAULT) [address] [place] [address] 02984 ALT [Catalytic activity/Vol] 19 U/L Normal 9-48 [facility] Comment on above: Performed By: #### L DO, MGO, IPB, CHM7 #### [facility] (DEFAULT) [address] [place] [address] 34606 AST [Catalytic activity/Vol] 38 U/L Normal 10-39 [facility] Comment on above: Performed By: #### L DO, MGO, IPB, CHM7 #### [facility] (DEFAULT) [address] [place] [address] 92916 Bilirubin [Mass/Vol] 0.6 mg/dL Normal <1.5 [facility] Comment on above: Performed By: #### L DO, MGO, IPB, CHM7 #### [facility] (DEFAULT) [address] [place] [address] 27405 Bilirubin.indirect [Mass/Vol] 0.1 mg/dL Normal <0.3 [facility] Comment on above: Performed By: #### L DO, MGO, IPB, CHM7 #### [facility] (DEFAULT) [address] [place] [address] 97505 Protein [Mass/Vol] 4.5 g/dL Low 6.4-8.3 [facility] Comment on above: Performed By: #### L DO, MGO, IPB, CHM7 #### [facility] (DEFAULT) [address] [place] [address] 98863 IONIZED CALCIUM, WHOLE BLOOD on 04-10-2025 Calcium.ionized (Bld) [Moles/Vol] 4.34 mg/dL Low 4.60 - 5.30 mg/dL [facility] Interpretation and review of laboratory results Abnormal [facility] ICA 4.34 mg/dL Low 4.60-5.30 [facility] Comment on above: Performed By: #### X M #### [facility] (DEFAULT) [address] [place] [address] MAGNESIUMon 04-10-2025 Magnesium [Mass/Vol] 2.7 mg/dL High 1.6 - 2 .6 mg/dL [facility] Magnesium [Mass/Vol] 2.7 mg/dL High 1.6-2.6 [facility] Comment on above: Performed By: #### L DO, MGO, IPB, CHM7 #### [facility] (DEFAULT) [address] [place] [address] No Panel Informationon 04-10 ABO/RH(D) TYPE Positive [facility] BLOOD COMPONENT TYPE Red Cells, Leukoreduced [facility] BLOOD COMPONENT TYPE Plasma, Thawed [facility] EXPIRATION DATE [facility] EXPIRATION DATE [id number] [facility] EXPIRATION DATE [facility] EXPIRATION DATE [facility] Product ABO/RH(D) Positive [facility] Product ABO/RH(D) NUMBER 6200 [facility] PRODUCT CODE [id number] [facility] PRODUCT CODE [id number] [facility] UNIT STATUS transfused [facility] UNIT STATUS released [facility] Interpretation and review of laboratory results Abnormal [facility] Radiology Study observation (narrative) [facility] PHOSPHATE, INORGANICon 04-10 Interpretation and review of laboratory results Normal [facility] Phosphate [Mass/Vol] 3.4 mg/dL 2.2 - 4 .6 mg/dL [facility] Phosphorous 3.4 mg/dL Normal 2.2-4.6 [facility] Comment on above: Performed By: #### L DO, MGO, IPB, CHM7 #### [facility] (DEFAULT) [address] [place] [address] 88342 PREPARE TO TRANSFUSE OR PLAS MAon 04-10-2025 Product ABO/RH(D) Negative [facility] Product ABO/RH(D) NUMBER 600 [facility] PRODUCT CODE [id number] [facility] UNIT NUMBER [id number] [facility] UNIT NUMBER [id number] [facility] UNIT NUMBER [id number] [facility] UNIT NUMBER [id number] [facility] UNIT NUMBER [id number] [facility] UNIT NUMBER [id number] [facility] UNIT NUMBER [id number] [facility] UNIT NUMBER [id number] [facility] PREPARE TO TRANSFUSE OR RED BLOOD CELLSon 04-10-2025 PRODUCT CODE [id number] [facility] UNIT NUMBER [id number] [facility] UNIT NUMBER [id number] [facility] UNIT NUMBER [id number] [facility] UNIT NUMBER [id number] [facility] UNIT NUMBER [id number] [facility] UNIT NUMBER [id number] [facility] UNIT NUMBER [id number] [facility] UNIT NUMBER [id number] [facility] PREPARE TO TRANSFUSE RED BLO OD CELLSon 04-10-2025 ABO/RH(D) TYPE Positive [facility] BLOOD COMPONENT TYPE Red Cells, Leukoreduced [facility] EXPIRATION DATE [id number] [facility] Product ABO/RH(D) Positive [facility] Product ABO/RH(D) NUMBER 6200 [facility] PRODUCT CODE [id number] [facility] UNIT NUMBER [id number] [facility] UNIT STATUS transfused [facility] PT,INR,PTTOrdered By: Tadeo Rojas on 04-10-2025 aPTT Coag (PPP) [Time] 23.2 s Low [facility] INR Coag (Bld) [Relative time] 1.2 {INR} High 0.9 - 1.1 [facility] Interpretation and review of laboratory results Abnormal [facility] PT Coag (PPP) [Time] 15.5 s High [facility] PT,INR,PTTon 04-10-2025 aPTT Coag (Bld) [Time] 23.2 s Low 24.0-34.3 [facility] Comment on above: Result Comment: Spec imen integrity checked. Performed By: #### L DO, MGO, IPB, CHM7 #### [facility] (DEFAULT) [address] [place] [address] 69621 INR Coag (PPP) [Relative time] 1.2 {INR} High 0.9-1.1 [facility] Comment on above: Performed By: #### L DO, MGO, IPB, CHM7 #### [facility] (DEFAULT) [address] [place] [address] 63136 PT Coag (PPP) [Time] 15.5 s High 11.9-14.2 [facility] Comment on above: Performed By: #### L DO, MGO, IPB, CHM7 #### [facility] (DEFAULT) [address] [place] [address] 17723 TRANSFUSE OR PLASMAon 2024 [facility] TRANSFUSE OR RED BLOOD CELLS Ordered By: Jorje Yeager on 04-10-2025 [facility] TRANSFUSE OR RED BLOOD CELLS on 04-10-2025 [facility] TRANSFUSE OR RED BLOOD CELLS Ordered By: Brandi Downey on 04-10-2025 [facility] Work Phone: Urine Cultureon 04-10-2025 [facility] Normal [facility] Comment on above: Performed By: #### M 100.2200 ####[facility] [id number] [place], [place], [address] [facility] Normal [facility] Comment on above: Performed By: #### L 400.0001, M100.2200 ####[facility] [id number] [place], [address] [facility] FACTOR AGOrde red By: Radha Chavarria on 04-10-2025 Interpretation and review of laboratory results Abnormal [facility] vWf Ag actual/normal IA (PPP) [Relative mass conc] 333 % High 50 - 180 % [facility] ABORH TYPE RECONFIRMATIONon 04-09-2025 ABO/RH(D) TYPE Positive [facility] ABO/RH(D) TYPE Positive Normal [facility] Comment on above: Performed By: #### L DO, MGO, IPB, CHM7 #### [facility] (DEFAULT) [address] [place] [id number] CBC,PLATELETSon 04-09-2025 Erythrocyte distribution width (RBC) [Ratio] 24.9 % High 10.8 - 14.9 % [facility] Hematocrit (Bld) [Volume fraction] 27 % Low 34.9 - 44.3 % [facility] Hemoglobin (Bld) [Mass/Vol] 8.6 g/dL Low 11.4 - 15.2 g/dL [facility] Interpretation and review of laboratory results Abnormal [facility] MCH (RBC) [Entitic mass] 30.8 pg 25.9 - 33.9 pg [facility] MCHC (RBC) [Mass/Vol] 31.9 g/dL 31.4 - 35.9 g/dL [facility] MCV (RBC) [Entitic vol] 96.8 fL 79.6 - 97.7 fL [facility] Platelet mean volume (Bld) [Entitic vol] 9.2 fL 8.5 - 12.2 fL [facility] Platelets (Bld) [#/Vol] 104 10*3/uL Low 150 - 393 K/uL [facility] RBC (Bld) [#/Vol] 2.79 10*6/uL Low [facility] WBC (Bld) [#/Vol] 6.32 10*3/uL 3.99 - 11.19 K/uL [facility] Hematocrit (Bld) [Volume fraction] 27.0 % Low 34.9-44.3 [facility] Comment on above: Performed By: #### L DO, MGO, IPB, CHM7 #### [facility] (DEFAULT) [address] [place] [address] 70955 Hemoglobin (Bld) [Mass/Vol] 8.6 g/dL Low 11.4-15.2 [facility] Comment on above: Performed By: #### L DO, MGO, IPB, CHM7 #### [facility] (DEFAULT) [address] [place] [address] 37190 MCV (RBC) [Entitic vol] 96.8 fL Normal 79.6-97.7 [facility] Comment on above: Result Comment: Resu lts inconsistent with previous results Performed By: #### L DO, MGO, IPB, CHM7 #### [facility] (DEFAULT) [address] [place] [address] 70560 Mean Cell Hgb 30.8 pg Normal 25.9-33.9 [facility] Comment on above: Performed By: #### L DO, MGO, IPB, CHM7 #### [facility] (DEFAULT) [address] [place] [address] 24733 Mean Cell Hgb Conc 31.9 g/dL Normal 31.4-35.9 [facility] Comment on above: Performed By: #### L DO, MGO, IPB, CHM7 #### [facility] (DEFAULT) [address] [place] [address] 22776 Platelet mean volume (Bld) [Entitic vol] 9.2 fL Normal 8.5-12.2 [facility] Comment on above: Performed By: #### L DO, MGO, IPB, CHM7 #### [facility] (DEFAULT) [address] [place] [address] 10337 Platelets (Bld) [#/Vol] 104 10*3/uL Low 150-393 [facility] Comment on above: Performed By: #### L DO, MGO, IPB, CHM7 #### [facility] (DEFAULT) [address] [place] [address] 05575 RBC (Bld) [#/Vol] 2.79 10*6/uL Low 3.91-5.04 [facility] Comment on above: Performed By: #### L DO, MGO, IPB, CHM7 #### [facility] (DEFAULT) [address] [place] [address] 15244 RBC Distribution 24.9 % High 10.8-14.9 [facility] Comment on above: Performed By: #### L DO, MGO, IPB, CHM7 #### [facility] (DEFAULT) [address] [place] [address] 90412 WBC (Bld) [#/Vol] 6.32 10*3/uL Normal 3.99-11.19 [facility] Comment on above: Performed By: #### L DO, MGO, IPB, CHM7 #### [facility] (DEFAULT) [address] [place] [address] 07314 CHEM 7 (LYTES,BUN,CREA,GLUC) on 04-09-2025 Anion gap [Moles/Vol] 12 mmol/L 7 - 17 mmol/L [facility] Chloride [Moles/Vol] 109 mmol/L High 98 - 10 8 mmol/L [facility] CO2 [Moles/Vol] 19 mmol/L Low 21 - 31 mmol/L [facility] Creatinine [Mass/Vol] 0.81 mg/dL 0.50 - 1.20 mg/dL [facility] eGFR, CKD-EPI, Female 73 - PINF [facility] Glucose [Mass/Vol] 163 mg/dL 70 - 179 mg/dL [facility] Interpretation and review of laboratory results Abnormal [facility] Osmolality Calc [Osmolality] 291 [facility] Potassium [Moles/Vol] 4.6 mmol/L 3.5 - 5.0 mmol/L [facility] Sodium [Moles/Vol] 135 mmol/L 135 - 145 mmol/L [facility] Urea nitrogen [Mass/Vol] 19 mg/dL 7 - 25 mg/dL [facility] Urea nitrogen/Creatinine [Mass ratio] 23 mg/mg [facility] Anion gap [Moles/Vol] 12 mmol/L Normal 7-17 [facility] Comment on above: Performed By: #### G SVALL #### [facility] (DEFAULT) [address] [place] [address] 66543 Chloride [Moles/Vol] 109 mmol/L High 98-108 [facility] Comment on above: Performed By: #### G SVALL #### [facility] (DEFAULT) [address] [place] [address] 84648 CO2 [Moles/Vol] 19 mmol/L Low 21-31 [facility] Comment on above: Performed By: #### G SVALL #### [facility] (DEFAULT) [address] [place] [address] 64214 Creatinine [Mass/Vol] 0.81 mg/dL Normal 0.50-1.20 [facility] Comment on above: Performed By: #### G SVALL #### [facility] (DEFAULT) [address] [place] [address] 60900 GFR/1.73 sq M.predicted among non-blacks MDRD (S/P/Bld) [Vol rate/Area] 73 mL/min/{1.73_m2} Normal >=60 [facility] Comment on above: Result Comment: Repo rted eGFR is based on the CKD-EPI 2020 equation using creatinine, age, and sex. Performed By: #### G SVALL #### [facility] (DEFAULT) [address] [place] [address] 98631 Glucose [Mass/Vol] 163 mg/dL Normal Nonfastin -179 mg/dL; Fastin-99 [facility] Comment on above: Performed By: #### G SVALL #### [facility] (DEFAULT) [address] [place] [address] 54066 Osmolality [Osmolality] 291 mosm/kg Normal 278-305 [facility] Comment on above: Performed By: #### G SVALL #### [facility] (DEFAULT) [address] [place] [address] 49240 Potassium [Moles/Vol] 4.6 mmol/L Normal 3.5-5.0 [facility] Comment on above: Performed By: #### G SVALL #### [facility] (DEFAULT) [address] [place] [address] 59796 Sodium [Moles/Vol] 135 mmol/L Normal 135-145 [facility] Comment on above: Performed By: #### G SVALL #### [facility] (DEFAULT) [address] [place] [address] 68022 Urea nitrogen [Mass/Vol] 19 mg/dL Normal 7-25 [facility] Comment on above: Performed By: #### G SVALL #### [facility] (DEFAULT) [address] [place] [address] 45847 Urea nitrogen/Creatinine [Mass ratio] 23 mg/mg Normal [facility] Comment on above: Performed By: #### G SVALL #### [facility] (DEFAULT) [address] [place] [address] ABDOMEN/PELVIS WITH CONTR AST VASCULAR TRAUMAon [...] grade: None. Kidney trauma grade: None. Normal [facility] CT Abdomen and Pelvis W cont rast Nicole 04-09-2025 RADIOLOGY RADIOLOGY [facility] CT Abdomen and Pelvis W cont rast IVOrdered By: Peggy Godwin on 04-09-2025 [facility] Work Phone: CT CHEST WITH CONTRAST [...] have reviewed and approved this report. Normal [facility] CT Chest W contrast Nicole [facility] contrast IVOrdere d By: Zully Donald on 04-09-2025 [facility] Work Phone: Cardiac echo study Procedure Ordered By: Johanna Aaron on 04-09-2025 Ao peak antonette 1.39 m/s [facility] Work Phone: Ao VTI 23.68 cm [facility] Work Phone: Ascending aorta 2.76 cm [facility] Work Phone: AV LVOT peak gradient 3 mmHg [facility] Work Phone: AV mean gradient 4 mmHg [facility] Work Phone: AV peak gradient 8 mmHG [facility] Work Phone: AV valve area 2.15 cm2 [facility] Work Phone: AV Velocity [facility] 0.65 [facility] Work Phone: [phone] JOAQUIN (continuity Vmax) 1.95 cm2 [facility] Work Phone: JOAQUIN (continuity VTI) 2.15 cm2 [facility] Work Phone: Avg e' pk antonette 0.08 m/s [facility] Work Phone: Avg E/e' ratio 8.64 [facility] Work Phone: BP EF 59 % [facility] Work Phone: DI (Vmax) 0.65 [facility] Work Phone: DI (VTI) 0.71 m/2 [facility] Work Phone: E wave decelartion time 198.79 msec [facility] Work Phone: e' lateral pk antonette 0.1033 m/s [facility] Work Phone: e' lateral pk antonette 0.1 m/s [facility] Work Phone: e' septal pk antonette 0.0651 m/s [facility] Work Phone: e' septal pk antonette 0.07 m/s [facility] Work Phone: E/A ratio 0.77 [facility] Work Phone: E/e' lateral ratio 6.68 [facility] Work Phone: E/e' septal ratio 10.6 [facility] Work Phone: EF SP 2CH 66 [facility] Work Phone: EF SP 4CH 52 [facility] Work Phone: EST RAP 3 mmHg [facility] Work Phone: FS 35 % [facility] Work Phone: IVS 0.94 cm [facility] Work Phone: LA area 4CH 21.52 cm2 [facility] Work Phone: LA ESV BP (MOD) 48 mL [facility] Work Phone: LA ESV SP 2CH (MOD) 30 mL [facility] Work Phone: LA ESV SP 4CH (MOD) 58 mL [facility] Work Phone: [phone] LV EDV BP 56 mL [facility] Work Phone: [phone] LV EDV SP 2CH 61 mL [facility] Work Phone: [phone] LV EDV SP 4CH 52 mL [facility] Work Phone: [phone] LV ESV BP 23 mL [facility] Work Phone: [phone] LV ESV SP 2CH 21 mL [facility] Work Phone: [phone] LV ESV SP 4CH 25 mL [facility] Work Phone: [phone] LV mass 104.05 g [facility] Work Phone: LV RWT 0.3 [facility] Work Phone: LV stroke volume BP (ml) 33 mL [facility] Work Phone: [phone] LVIDD 4.29 cm [facility] Work Phone: [phone] LVIDS 2.78 cm [facility] Work Phone: [phone] LVOT area 3.02 cm2 [facility] Work Phone: LVOT diameter 1.96 cm [facility] Work Phone: [phone] LVOT peak antonette 0.9 m/s [facility] Work Phone: [phone] LVOT peak VTI 16.88 cm [facility] Work Phone: [phone] LVOT stroke volume 51 cm3 [facility] Work Phone: MV mean gradient 1 mmHg [facility]: MV peak gradient 3 mmHg [facility] Work Phone: MV pk A antonette 0.9 m/s [facility] Work Phone: MV pk E antonette 0.69 m/s [facility] Work Phone: MV valve area by continuity eq 1.96 cm2 [facility] Work Phone: MV VTI 26 cm [facility] Work Phone: MVA (continuity VTI) 1.97 cm [facility] Work Phone: OSU AV VTI RATIO PRE STRESS 0.71 [facility] Work Phone: PV mean gradient 3 mmHg [facility] Work Phone: PV peak gradient 5 mmHg [facility] Work Phone: PV PK ANTONETTE 1.09 m/s [facility] Work Phone: PW 0.65 cm [facility] Work Phone: RA area 4CH (MOD) 11.56 cm2 [facility] Work Phone: Right atrium volume 4 chamber method of disks 24 mL [facility] Work Phone: RV basal diam 2.86 cm [facility] Work Phone: RV long diam 6.39 cm [facility] Work Phone: RV mid diam 1.72 cm [facility] Work Phone: RV S' 16.99 cm/s [facility] Work Phone: RVOT peak gradient 3 mmHg [facility] Work Phone: RVOT peak antonette 0.88 m/s [facility] Work Phone: RVOT peak VTI 17.9 cm [facility] Work Phone: Sinus 2.99 cm [facility] Work Phone: STJ 2.1 cm [facility] Work Phone: Stroke Volume 51 cm/mL [facility] Work Phone: TAPSE 1.67 cm [facility] Work Phone: [facility] Work Phone: Cardiac echo study Procedure on 04-09-2025 [facility] [[email or web address] Radiology Study observation (narrative) [facility] ECHOCARDIOGRAMon 04-09-2025 Echocardiography ? No prior [...] from the original result were not included. [facility] Patient Information Patient Name Anay Samuels Legal [...] Role Read Date Johanna Aaron MD Echo [place], [employer] 04/09/2025 Left Heart Measurements LV - Systole [...] cm3 Dopple (more content not included)... Normal [facility] EXTRA MICROon 04-09-2025 [facility] GLUCOSE POCon 04-09-2025 Glucose [Mass/Vol] 150 mg/dL 70 - 179 mg/dL [facility] POC Sample Type CAPBL [facility] HEMOGLOBIN & HEMATOCRITon Hematocrit (Bld) [Volume fraction] 28.2 % Low 34.9 - 44.3 % [facility] Hemoglobin (Bld) [Mass/Vol] 9.4 g/dL Low 11.4 - 15.2 g/dL [facility] Interpretation and review of laboratory results Abnormal [facility] Hematocrit (Bld) [Volume fraction] 28.2 % Low 34.9-44.3 [facility] Comment on above: Performed By: #### H H ####[facility] (DEFAULT)[address] [place] [address] 32954 Hemoglobin (Bld) [Mass/Vol] 9.4 g/dL Low 11.4-15.2 [facility] Comment on above: Performed By: #### H H ####[facility] (DEFAULT)[address] [place] [address] 19908 HEMOGLOBIN A1Con 04-09-2025 Average glucose Estimated from glycated hemoglobin (Bld) [Mass/Vol] 111 mg/dL [facility] HbA1c (Bld) [Mass fraction] 5.5 % 4.7 - 5.6 % [facility] Glucose [Mass/Vol] 111 mg/dL Normal [facility] Comment on above: Performed By: #### L DO, MGO, IPB, CHM7 #### [facility] (DEFAULT) [address] [place] [address] 24641 Hemoglobin A1C HPLC 5.5 % Normal 4.7-5.6 [facility] Comment on above: Performed By: #### L DO, MGO, IPB, CHM7 #### [facility] (DEFAULT) [address] [place] [address] 70055 IONIZED CALCIUM, WHOLE BLOOD Ordered By: Jhon Still on 04-09-2025 Calcium.ionized (Bld) [Moles/Vol] 3.91 mg/dL Low 4.60 - 5.30 mg/dL [facility] Interpretation and review of laboratory results Abnormal [facility] IONIZED CALCIUM, WHOLE BLOOD on 04-09-2025 ICA 3.91 mg/dL Low 4.60-5.30 [facility] Comment on above: Performed By: #### L DO, MGO, IPB, CHM7 #### [facility] (DEFAULT) [address] [place] [address] 20664 MAGNESIUMon 06-26-2025 Magnesium [Mass/Vol] 2 mg/dL 1.6 - 2 .6 mg/dL [facility] Magnesium [Mass/Vol] 2.0 mg/dL Normal 1.6-2.6 [facility] Comment on above: Performed By: #### G SVMASON #### [facility] (DEFAULT) [address] [place] [address] MR Brain WO contraston 04-09 RADIOLOGY RADIOLOGY [facility] Radiology Study observation (narrative) [facility] MR Brain WO contrastOrdered By: Therese Boudreaux on 04-09-2025 [facility] Work Phone: MR Cervical spine WO contras ton 04-09-2025 RADIOLOGY RADIOLOGY [facility] Radiology Study observation (narrative) [facility] MRI BRAIN STROKE WITHOUT CON TRASTon [...] to underlying thrombus. Moderate mastoid effusion. Normal [facility] MRI SPINE CERVICAL [facility] 04-09[facility]2025 MRI SPINE CERVICAL WITHOUT CONTRAST EXAM: [...] Isbell PA-C on 04/09/2025 6:17 PM. Normal [facility] No Panel InformationOrdered By: System Discharge on 04-09-2025 [facility] No Panel Informationon 04-09 Interpretation and review of laboratory results Normal [facility] PHOSPHATE, INORGANICon 04-09 Phosphate [Mass/Vol] 3.9 mg/dL 2.2 - 4 .6 mg/dL [facility] Phosphorous 3.9 mg/dL Normal 2.2-4.6 [facility] Comment on above: Performed By: #### G SVALL #### [facility] (DEFAULT) [address] [place] [address] Portable XR Chest Viewson RADIOLOGY RADIOLOGY [facility] RADIOLOGY RADIOLOGY [facility] Radiology Study observation (narrative) [facility] Portable XR Chest ViewsOrder ed By: Abebe Mooney on 04-09-2025 [facility] Work Phone: RF Esophagus Views W contras t Shireen 04-09-2025 RADIOLOGY RADIOLOGY [facility] Radiology Study observation (narrative) [facility] RF Esophagus Views W contras t POOrdered By: David Bower on 04-09-2025 [facility] URINALYSIS REFLEX TO CULTURE PERFORMABLEOrdered By: Yessy Kaba on 04-09-2025 Appearance (U) Clear Clear [facility] Bacteria LM Ql (Urine sed) ABSENT ABSENT [facility] Color (U) Yellow Yellow [facility] Epithelial cells.squamous LM Ql (Urine sed) 0-2/hpf 0-2/hpf, 3-5/hpf = 1+ [facility] Glucose Test strip (U) [Mass/Vol] Negative Negative [facility] Interpretation and review of laboratory results Abnormal [facility] Ketones (U) [Mass/Vol] Trace Abnormal Negative [facility] Leukocyte esterase Test strip Ql (U) Negative Negative [facility] Nitrite Ql (U) Negative Negative [facility] pH (U) 5.0 [pH] 5.0 - 7.0 [facility] Protein (U) [Mass/Vol] 30 mg/dL Abnormal Negative [facility] RBC (U) [#/Vol] Trace Abnormal Negative [facility] RBC LM.HPF (Urine sed) [#/Area] 0-2 [facility] Specific gravity (U) [Rel density] High 1.001 - 1.035 [facility] Urobilinogen (U) [Mass/Vol] 0.2 E.U./dL 0.2 E.U/dL, 1.0 E.U/dL [facility] WBC LM.HPF (Urine sed) [#/Area] 0 - 5 [facility] URINALYSIS REFLEX TO CULTURE PERFORMABLEon 04-09-2025 Appearance (U) Clear Normal Clear [facility] Comment on above: Order Comment: For i ndwelling catheters, specimen collection is acceptable on catheter day 1 and 2 only. ? Performed By: #### U [id number] #### [facility] (DEFAULT) [address] [address] Bacteria ABSENT Normal ABSENT [facility] Comment on above: Order Comment: For i ndwelling catheters, specimen collection is acceptable on catheter day 1 and 2 only. ? Performed By: #### U [id number] #### [facility] (DEFAULT) [address] [place] [address] 35618 Blood Urine Trace Abnormal Negative [facility] Comment on above: Order Comment: For i ndwelling catheters, specimen collection is acceptable on catheter day 1 and 2 only. ? Performed By: #### U [id number] #### [facility] (DEFAULT) [address] [place] [address] 81476 Color (U) Yellow Normal Yellow [facility] Comment on above: Order Comment: For i ndwelling catheters, specimen collection is acceptable on catheter day 1 and 2 only. ? Performed By: #### U [id number] #### [facility] (DEFAULT) [address] [place] [address] 57273 Glucose Ql (U) Negative Normal Negative [facility] Comment on above: Order Comment: For i ndwelling catheters, specimen collection is acceptable on catheter day 1 and 2 only. ? Performed By: #### U [id number] #### [facility] (DEFAULT) [address] [place] [address] 07156 Ketones Ql (U) Trace Abnormal Negative [facility] Comment on above: Order Comment: For i ndwelling catheters, specimen collection is acceptable on catheter day 1 and 2 only. ? Performed By: #### U [id number] #### [facility] (DEFAULT) [address] [place] [address] 16524 Leukocyte esterase Test strip Ql (U) Negative Normal Negative [facility] Comment on above: Order Comment: For i ndwelling catheters, specimen collection is acceptable on catheter day 1 and 2 only. ? Performed By: #### U [id number] #### [facility] (DEFAULT) [address] [place] [address] 16645 Nitrites Urine Negative Normal Negative [facility] Comment on above: Order Comment: For i ndwelling catheters, specimen collection is acceptable on catheter day 1 and 2 only. ? Performed By: #### U [id number] #### [facility] (DEFAULT) [address] [place] [address] 47587 pH (U) 5.0 [pH] Normal 5.0-7.0 [facility] Comment on above: Order Comment: For i ndwelling catheters, specimen collection is acceptable on catheter day 1 and 2 only. ? Performed By: #### U [id number] #### [facility] (DEFAULT) [address] [address] Protein Urine 30 mg/dL Abnormal Negative [facility] Comment on above: Order Comment: For i ndwelling catheters, specimen collection is acceptable on catheter day 1 and 2 only. ? Performed By: #### U [id number] #### [facility] (DEFAULT) [address] [address] RBC Urine 0-2 Normal 0-2 [facility] Comment on above: Order Comment: For i ndwelling catheters, specimen collection is acceptable on catheter day 1 and 2 only. ? Performed By: #### U [id number] #### [facility] (DEFAULT) [address] [address] Specific Sebastian Urine > High 1.001-1.035 [facility] Comment on above: Order Comment: For i ndwelling catheters, specimen collection is acceptable on catheter day 1 and 2 only. ? Performed By: #### U [id number] #### [facility] (DEFAULT) [address] [address] Squamous/Epithelial Cells, Urine 0-2/hpf Normal 0-2/hpf, 3-5/hpf = 1+ [facility] Comment on above: Order Comment: For i ndwelling catheters, specimen collection is acceptable on catheter day 1 and 2 only. ? Performed By: #### U [id number] #### [facility] (DEFAULT) [address] [address] Urobilinogen Urine 0.2 E.U./dL Normal 0.2 E.U/d L, 1.0 E.U/dL [facility] Comment on above: Order Comment: For i ndwelling catheters, specimen collection is acceptable on catheter day 1 and 2 only. ? Performed By: #### U [id number] #### [facility] (DEFAULT) [address] [address] WBC Urine 0 - 5 Normal 0 - 5 [facility] Comment on above: Order Comment: For i ndwelling catheters, specimen collection is acceptable on catheter day 1 and 2 only. ? Performed By: #### U [id number] #### [facility] (DEFAULT) [address] [address] URINE DRUG SCREEN 04-09 Amphetamine+Methamphet amine Screen (U) [Mass/Vol] Not detected Cutoff: 500 ng/mL [facility] Barbiturates Ql (U) Not detected Cutoff: 200 ng/mL [facility] Benzodiazepines Ql (U) Not detected Cutof f: 200 ng/mL [facility] Buprenorphine Ql (U) Not detected Cutoff: 5 ng/mL [facility] Cannabinoids Screen Ql (U) Not detected Cutoff: 50 ng/mL [facility] Cocaine Ql (U) Not detected Cutoff: 150 ng/mL [facility] fentaNYL Ql (U) Not detected Cutoff: 1 ng/mL [facility] Interpretation and review of laboratory results Normal [facility] Methadone Ql (U) Not detected Cutoff: 300 ng/mL [facility] Opiates Ql (U) Not detected Cutoff: 300 ng/mL [facility] oxyCODONE Ql (U) Not detected Cutoff: 100 ng/mL [facility] Amphetamine/Methamphet amine Not detected Normal Cutoff: 500 ng/mL [facility] Comment on above: Order Comment: For m edical purposes only. Positive results are unconfirmed unless otherwise noted. Performed By: #### G TAMMY #### [facility] (DEFAULT) [address] [address] Barbiturates Not detected Normal Cutoff: 200 ng/mL [facility] Comment on above: Order Comment: For m edical purposes only. Positive results are unconfirmed unless otherwise noted. Performed By: #### G TAMMY #### [facility] (DEFAULT) [address] [address] Benzodiazepines Not detected Normal Cutoff: 200 ng/mL [facility] Comment on above: Order Comment: For m edical purposes only. Positive results are unconfirmed unless otherwise noted. Performed By: #### G SVALL #### [facility] (DEFAULT) [address] [address] Buprenorphine Not detected Normal Cutoff: 5 ng/mL [facility] Comment on above: Order Comment: For m edical purposes only. Positive results are unconfirmed unless otherwise noted. Performed By: #### G SVALL #### [facility] (DEFAULT) [address] [address] Cannabinoids Screen Ql (U) Not detected Normal Cutoff: 50 ng/mL [facility] Comment on above: Order Comment: For edical purposes only. Positive results are unconfirmed unless otherwise noted. Performed By: #### G SVALL #### [facility] (DEFAULT) [address] [address] Cocaine Not detected Normal Cutoff: 150 ng/mL [facility] Comment on above: Order Comment: For m edical purposes only. Positive results are unconfirmed unless otherwise noted. Performed By: #### G SVALL #### [facility] (DEFAULT) [address] [address] Fentanyl Not detected Normal Cutoff: 1 ng/mL [facility] Comment on above: Order Comment: For edical purposes only. Positive results are unconfirmed unless otherwise noted. Performed By: #### G SVALL #### [facility] (DEFAULT) [address] [address] Methadone Not detected Normal Cutoff: 300 ng/mL [facility] Comment on above: Order Comment: For m edical purposes only. Positive results are unconfirmed unless otherwise noted. Performed By: #### G SVALL #### [facility] (DEFAULT) [address] [address] Opiates Not detected Normal Cutoff: 300 ng/mL [facility] Comment on above: Order Comment: For edical purposes only. Positive results are unconfirmed unless otherwise noted. Performed By: #### G SVALL #### [facility] [address] [address] Oxycodone Not detected Normal Cutoff: 100 ng/mL [facility] Comment on above: Order Comment: For m edical purposes only. Positive results are unconfirmed unless otherwise noted. Performed By: #### G TAMMY #### [facility] (DEFAULT) [address] [place] [address] XR CHEST 1 VIEW PORTABLEon 0 04-09-2025 [...] have reviewed and approved this report. Normal [facility] XR CHEST 1 VIEW PORTABLE EXAM: XR CHEST 1 VIEW PORTABLE, 04/08/2025 15:49 PM COMPARISON: No prior studies available for comparison. CLINICAL INDICATIONS: Trauma RELEVANT CLINICAL HISTORY: FINDINGS: (Adequate technique) Implanted Devices: None Thorax: No acute findings in the chest. IMPRESSION: No acute cardiopulmonary disease I personally viewed and interpreted these images and I have reviewed and approved this report. Normal [facility] XR FLUORO ESOPHAGUSon 2024 XR FLUORO ESOPHAGUS [...] leak. TOTAL FLUORO TIME: 1 min FINDINGS: [employer] radiograph: No pneumothorax. Calcification of the bronchial [...] have reviewed and approved this report. Normal [facility] XR SHOULDER RIGHT 2+ VIEWSon 04-09-2025 XR [...] glenohumeral osteoarthritis and acromioclavicular arthritic changes. Normal [facility] XR Shoulder - right 2 Viewso n 04-09-2025 RADIOLOGY RADIOLOGY [facility] XR Shoulder - right 2 ViewsO rdered By: Prakash Nuñez on 04-09-2025 [facility] Work Phone: ALCOHOL (ETHANOL),BLOODon Ethanol Ql (Bld) mg/dL NINF - 10 mg/dL [facility] Interpretation and review of laboratory results Normal [facility] Alcohol, Serum <10 Normal <10 [facility] Comment on above: Order Comment: Non-f orensic. Performed By: #### L DO, MGO, IPB, CHM7 #### [facility] (DEFAULT) [address] [place] [address] Absolute lymphocyte countOrd ered By: Shaun Camejo on 04-08-2025 Lymphocytes Auto (Unsp spec) [#/Vol] 1.12 10*3/uL 0.83-4.51 [facility] Absolute neutrophil countOrd ered By: Shaun Camejo on 04-08-2025 Neutrophils (Bld) [#/Vol] 2.7 10*3/uL 2.0-7.7 [facility] Activated partial thrombopla stin time (aPTT) in platelet poor plasma by coagulation aOrdered By: Shaun Camejo on 04-08-2025 aPTT Coag (PPP) [Time] 21.6 s Low 24.1-36.2 [facility] Anion gap in Serum or Plasma Ordered By: Shaun Camejo on 04-08-2025 Anion gap [Moles/Vol] 13 mmol/L 5-15 [facility] Automated lymphocyte count a s percentage of total leukocytesOrdered By: Shaun Camejo on 04-08-2025 Lymphocytes/100 WBC Auto (Unsp spec) 27.7 % 19-41 [facility] BUN/creatinine ratioOrdered By: Shaun Camejo on 04-08-2025 Urea nitrogen/Creatinine [Mass ratio] 17.8 mg/mg 10-20 [facility] Basophil percentageOrdered B y: Shaun Camejo on 04-08-2025 Basophils/100 WBC (Bld) 0.7 % 0-1 [facility] Bedside Glucoseon 04-08-2025 FINGERSTICK GLU 151 mg/dL High 74-106 [facility] Comment on above: Result Comment: [place] GEMENT OF PATIENT CARE PER NURSING PROTOCOL Performed By: #### L 501.080 ####[facility] [address] [place], [address] Bilirubin Test strip Ql (U)O rdered By: Shaun Camejo on 04-08-2025 Bilirubin Ql (U) Negative Negative [facility] Bilirubin directOrdered By: Shaun Camejo on 04-08-2025 Bilirubin.direct [Mass/Vol] 0.24 mg/dL 0.00-0.30 [facility] Bilirubin, totalOrdered By: Shaun Camejo on 04-08-2025 Bilirubin [Mass/Vol] 0.51 mg/dL 0.00-1.30 [facility] Blood cultureOrdered By: Ginette Camejo on 04-08-2025 Bacteria identified Cx Nom (Bld) No growth in 5 days. [facility] Blood manual differential co mment interpretation (narrative result)Ordered By: Shaun Camejo on 04-08-2025 Manual differential comment Nba (Bld) [Interp] SCANNED [facility] CBC AND ELECTRONIC DIFFon Basophils (Bld) [#/Vol] K/uL 0.00 - 0.15 K/uL [facility] Basophils/100 WBC (Bld) 0.3 % [facility] Differential cell count method Nom (Bld) Electronic Differential O [facility] Eosinophils (Bld) [#/Vol] K/uL 0.00 - 0.42 K/uL [facility] Eosinophils/100 WBC (Bld) 0 % [facility] Erythrocyte distribution width (RBC) [Ratio] 17.7 % High 10.8 - 14.9 % [facility] Hematocrit (Bld) [Volume fraction] 28.9 % Low 34.9 - 44.3 % [facility] Hemoglobin (Bld) [Mass/Vol] 9.4 g/dL Low 11.4 - 15.2 g/dL [facility] Immature granulocytes (Bld) [#/Vol] K/uL NINF - 0.08 K/uL [facility] Immature granulocytes/100 WBC (Bld) 0.3 % [facility] Interpretation and review of laboratory results Abnormal [facility] Lymphocytes (Bld) [#/Vol] 0.64 10*3/uL Low 1.16 - 3.51 K/uL [facility] Lymphocytes/100 WBC (Bld) 6.9 % [facility] MCH (RBC) [Entitic mass] 35.3 pg High 25.9 - 33.9 pg [facility] MCHC (RBC) [Mass/Vol] 32.5 g/dL 31.4 - 35.9 g/dL [facility] MCV (RBC) [Entitic vol] 108.6 fL High 79.6 - 97.7 fL [facility] Monocytes (Bld) [#/Vol] 0.44 10*3/uL 0.22 - 0.87 K/uL [facility] Monocytes/100 WBC (Bld) 4.7 % [facility] Neutrophils (Bld) [#/Vol] 8.15 10*3/uL High 1.64 - 7.28 K/uL [facility] Nucleated RBC/100 WBC (Bld) [Ratio] 0.2 % NINF [facility] Platelet mean volume (Bld) [Entitic vol] 8.9 fL 8.5 - 12.2 fL [facility] Platelets (Bld) [#/Vol] 152 10*3/uL 150 - 393 K/uL [facility] RBC (Bld) [#/Vol] 2.66 10*6/uL Low [facility] Segmented neutrophils/100 WBC (Bld) 87.8 % [facility] WBC (Bld) [#/Vol] 9.29 10*3/uL 3.99 - 11.19 K/uL [facility] Abs Baso Auto < Normal 0.00-0.15 [facility] Comment on above: Performed By: #### L DO, MGO, IPB, CHM7 #### [facility] (DEFAULT) [address] [place] [address] Abs Eos Auto < Normal 0.00-0.42 [facility] Comment on above: Performed By: #### L DO, MGO, IPB, CHM7 #### [facility] (DEFAULT) [address] [place] [address] Basophils/100 WBC (Bld) 0.3 % Normal [facility] Comment on above: Performed By: #### L DO, MGO, IPB, CHM7 #### [facility] (DEFAULT) [address] [place] [address] DIFF STATUS Electronic Differential Normal [facility] Comment on above: Performed By: #### L DO, MGO, IPB, CHM7 #### [facility] (DEFAULT) [address] [place] [address] Eosinophils/100 WBC (Bld) 0.0 % Normal [facility] Comment on above: Performed By: #### L DO, MGO, IPB, CHM7 #### [facility] (DEFAULT) [address] [place] [address] Hematocrit (Bld) [Volume fraction] 28.9 % Low 34.9-44.3 [facility] Comment on above: Performed By: #### L DO, MGO, IPB, CHM7 #### [facility] (DEFAULT) [address] [place] [address] Hemoglobin (Bld) [Mass/Vol] 9.4 g/dL Low 11.4-15.2 [facility] Comment on above: Performed By: #### L DO, MGO, IPB, CHM7 #### [facility] (DEFAULT) [address] [place] [address] Immature Grans % 0.3 % Normal [facility] Comment on above: Performed By: #### L DO, MGO, IPB, CHM7 #### [facility] (DEFAULT) [address] [place] [address] Immature Grans Absolute < Normal <=0.08 [facility] Comment on above: Performed By: #### L DO, MGO, IPB, CHM7 #### [facility] (DEFAULT) [address] [place] [address] Lymphocytes (Bld) [#/Vol] 0.64 10*3/uL Low 1.16-3.51 [facility] Comment on above: Performed By: #### L DO, MGO, IPB, CHM7 #### [facility] (DEFAULT) [address] [place] [address] Lymphocytes/100 WBC (Bld) 6.9 % Normal [facility] Comment on above: Performed By: #### L DO, MGO, IPB, CHM7 #### [facility] (DEFAULT) [address] [place] [address] MCV (RBC) [Entitic vol] 108.6 fL High 79.6-97.7 [facility] Comment on above: Performed By: #### L DO, MGO, IPB, CHM7 #### [facility] (DEFAULT) [address] [place] [address] Mean Cell Hgb 35.3 pg High 25.9-33.9 [facility] Comment on above: Performed By: #### L DO, MGO, IPB, CHM7 #### [facility] (DEFAULT) [address] [place] [address] Mean Cell Hgb Conc 32.5 g/dL Normal 31.4-35.9 [facility] Comment on above: Performed By: #### L DO, MGO, IPB, CHM7 #### [facility] (DEFAULT) [address] [place] [address] Monocytes (Bld) [#/Vol] 0.44 10*3/uL Normal 0.22-0.87 [facility] Comment on above: Performed By: #### L DO, MGO, IPB, CHM7 #### [facility] (DEFAULT) [address] [place] [address] Monocytes/100 WBC (Bld) 4.7 % Normal [facility] Comment on above: Performed By: #### L DO, MGO, IPB, CHM7 #### [facility] (DEFAULT) [address] [place] [address] Nucleated RBC 0.2 /100 WBC Normal <=0.2 [facility] Comment on above: Performed By: #### L DO, MGO, IPB, CHM7 #### [facility] (DEFAULT) [address] [place] [address] Platelet mean volume (Bld) [Entitic vol] 8.9 fL Normal 8.5-12.2 [facility] Comment on above: Performed By: #### L DO, MGO, IPB, CHM7 #### [facility] (DEFAULT) [address] [place] [address] Platelets (Bld) [#/Vol] 152 10*3/uL Normal 150-393 [facility] Comment on above: Performed By: #### L DO, MGO, IPB, CHM7 #### [facility] (DEFAULT) [address] [place] [address] RBC (Bld) [#/Vol] 2.66 10*6/uL Low 3.91-5.04 [facility] Comment on above: Performed By: #### L DO, MGO, IPB, CHM7 #### [facility] (DEFAULT) [address] [place] [address] RBC Distribution 17.7 % High 10.8-14.9 [facility] Comment on above: Performed By: #### L DO, MGO, IPB, CHM7 #### [facility] (DEFAULT) [address] [place] [address] Segs + Bands Auto 87.8 % Normal [facility] Comment on above: Performed By: #### L DO, MGO, IPB, CHM7 #### [facility] (DEFAULT) [address] [place] [address] Segs + Bands,Absolute Auto 8.15 K/uL High 1.64-7.28 [facility] Comment on above: Performed By: #### L DO, MGO, IPB, CHM7 #### [facility] (DEFAULT) [address] [place] [address] WBC (Bld) [#/Vol] 9.29 10*3/uL Normal 3.99-11.19 [facility] Comment on above: Performed By: #### L DO, MGO, IPB, CHM7 #### [facility] (DEFAULT) [address] [place] [address] CBC W/Diff, Automatedon 03-16 Anisocytosis Ql (Bld) 2+ Normal [facility] Comment on above: Performed By: #### L 503.6005, L100.0100, L501.4021, M200.1000, L300.4310, L500.4050, L500.3400 ####[facility] [address] [place], [address] SMEAR COMMENT SCANNED Normal [facility] Comment on above: Performed By: #### L 503.6005, L100.0100, L501.4021, M200.1000, L300.4310, L500.4050, L500.3400 ####[facility] [address] [place], [address] CBC,PLATELETSon 04-08-2025 Erythrocyte distribution width (RBC) [Ratio] 17.6 % High 10.8 - 14.9 % [facility] Hematocrit (Bld) [Volume fraction] 22.2 % Low 34.9 - 44.3 % [facility] Hemoglobin (Bld) [Mass/Vol] 7.3 g/dL Low 11.4 - 15.2 g/dL [facility] Interpretation and review of laboratory results Abnormal [facility] MCH (RBC) [Entitic mass] 35.6 pg High 25.9 - 33.9 pg [facility] MCHC (RBC) [Mass/Vol] 32.9 g/dL 31.4 - 35.9 g/dL [facility] MCV (RBC) [Entitic vol] 108.3 fL High 79.6 - 97.7 fL [facility] Platelet mean volume (Bld) [Entitic vol] 10.1 fL 8.5 - 12.2 fL [facility] Platelets (Bld) [#/Vol] 131 10*3/uL Low 150 - 393 K/uL [facility] RBC (Bld) [#/Vol] 2.05 10*6/uL Low [facility] WBC (Bld) [#/Vol] 6.54 10*3/uL 3.99 - 11.19 K/uL [facility] Hematocrit (Bld) [Volume fraction] 22.2 % Low 34.9-44.3 [facility] Comment on above: Performed By: #### L DO, MGCinda, IPB, CHM7 #### [facility] (DEFAULT) [address] [place] [address] Hemoglobin (Bld) [Mass/Vol] 7.3 g/dL Low 11.4-15.2 [facility] Comment on above: Result Comment: Resu lts inconsistent with previous results. Performed By: #### L DO, MGO, IPB, CHM7 #### [facility] (DEFAULT) [address] [place] [address] MCV (RBC) [Entitic vol] 108.3 fL High 79.6-97.7 [facility] Comment on above: Performed By: #### L DO, MGO, IPB, CHM7 #### [facility] (DEFAULT) [address] [place] [address] Mean Cell Hgb 35.6 pg High 25.9-33.9 [facility] Comment on above: Performed By: #### L DO, MGO, IPB, CHM7 #### [facility] (DEFAULT) [address] [place] [address] Mean Cell Hgb Conc 32.9 g/dL Normal 31.4-35.9 [facility] Comment on above: Performed By: #### L DO, MGO, IPB, CHM7 #### [facility] (DEFAULT) [address] [place] [address] Platelet mean volume (Bld) [Entitic vol] 10.1 fL Normal 8.5-12.2 [facility] Comment on above: Performed By: #### L DO, MGO, IPB, CHM7 #### [facility] (DEFAULT) [address] [place] [address] Platelets (Bld) [#/Vol] 131 10*3/uL Low 150-393 [facility] Comment on above: Performed By: #### L DO, MGO, IPB, CHM7 #### [facility] (DEFAULT) [address] [place] [address] RBC (Bld) [#/Vol] 2.05 10*6/uL Low 3.91-5.04 [facility] Comment on above: Performed By: #### L DO, MGO, IPB, CHM7 #### [facility] (DEFAULT) [address] [place] [address] RBC Distribution 17.6 % High 10.8-14.9 [facility] Comment on above: Performed By: #### L DO, MGO, IPB, CHM7 #### [facility] (DEFAULT) [address] [place] [address] WBC (Bld) [#/Vol] 6.54 10*3/uL Normal 3.99-11.19 [facility] Comment on above: Performed By: #### L DO, MGO, IPB, CHM7 #### [facility] (DEFAULT) [address] [place] [address] [facility] 7 - EDon 04-08-2025 Anion gap [Moles/Vol] 12 mmol/L 7 - 17 mmol/L [facility] Chloride [Moles/Vol] 108 mmol/L 98 - 10 8 mmol/L [facility] CO2 [Moles/Vol] 20 mmol/L Low 21 - 31 mmol/L [facility] Creatinine [Mass/Vol] 0.99 mg/dL 0.50 - 1.20 mg/dL [facility] eGFR, CKD-EPI, Female 57 Low - PINF [facility] Glucose [Mass/Vol] 192 mg/dL High 70 - 179 mg/dL [facility] Interpretation and review of laboratory results Abnormal [facility] Osmolality Calc [Osmolality] 294 [facility] Potassium [Moles/Vol] 4.3 mmol/L 3.5 - 5.0 mmol/L [facility] Sodium [Moles/Vol] 136 mmol/L 135 - 145 mmol/L [facility] Urea nitrogen [Mass/Vol] 20 mg/dL 7 - 25 mg/dL [facility] Urea nitrogen/Creatinine [Mass ratio] 20 mg/mg [facility] Anion gap [Moles/Vol] 12 mmol/L Normal 7-17 [facility] Comment on above: Performed By: #### L DO, MGO, IPB, CHM7 #### [facility] (DEFAULT) [address] [place] [address] Chloride [Moles/Vol] 108 mmol/L Normal 98-108 [facility] Comment on above: Performed By: #### L DO, MGO, IPB, CHM7 #### [facility] (DEFAULT) [address] [place] [address] CO2 [Moles/Vol] 20 mmol/L Low 21-31 [facility] Comment on above: Performed By: #### L DO, MGO, IPB, CHM7 #### [facility] (DEFAULT) [address] [place] [address] Creatinine [Mass/Vol] 0.99 mg/dL Normal 0.50-1.20 [facility] Comment on above: Performed By: #### L DO, MGO, IPB, CHM7 #### [facility] (DEFAULT) [address] [place] [address] GFR/1.73 sq M.predicted among non-blacks MDRD (S/P/Bld) [Vol rate/Area] 57 mL/min/{1.73_m2} Low >=60 [facility] Comment on above: Result Comment: Repo rted eGFR is based on the CKD-EPI 2020 equation using creatinine, age, and sex. Performed By: #### L DO, MGO, IPB, CHM7 #### [facility] (DEFAULT) [address] [place] [address] Glucose [Mass/Vol] 192 mg/dL High Nonfastin -179 mg/dL; Fastin-99 [facility] Comment on above: Performed By: #### L DO, MGO, IPB, CHM7 #### [facility] (DEFAULT) [address] [place] [address] Osmolality [Osmolality] 294 mosm/kg Normal 278-305 [facility] Comment on above: Performed By: #### L DO, MGO, IPB, CHM7 #### [facility] (DEFAULT) [address] [place] [address] Sodium [Moles/Vol] 136 mmol/L Normal 135-145 [facility] Comment on above: Performed By: #### L DO, MGO, IPB, CHM7 #### [facility] (DEFAULT) [address] [place] [address] Urea nitrogen [Mass/Vol] 20 mg/dL Normal 7-25 [facility] Comment on above: Performed By: #### L DO, MGO, IPB, CHM7 #### [facility] (DEFAULT) [address] [place] [address] Urea nitrogen/Creatinine [Mass ratio] 20 mg/mg Normal [facility] Comment on above: Performed By: #### L DO, MGO, IPB, CHM7 #### [facility] (DEFAULT) [address] [place] [address] Chest, Abd, Pel w/Contras ton 04-08-2025 CT Chest, Abd, Pel w/Contrast Normal [facility] Carbon dioxide, total [Moles /volume] in Central venous bloodOrdered By: Shaun Camejo on 04-08-2025 CO2 [Moles/Vol] 18.3 mmol/L Low 21.0-32.0 [facility] Chloride assayOrdered By: Destin Camejo on 04-08-2025 Chloride [Moles/Vol] 106 mmol/L 98-108 [facility] Comprehensive Metabolic Prof ilon 04-08-2025 Albumin/Globulin [Mass ratio] 1.7 {ratio} Normal 0.9-2.4 [facility] Comment on above: Performed By: #### L 503.6005, L100.0100, L501.4021, M200.1000, L300.4310, L500.4050, L500.3400 ####[facility] [address] [place], [address] BUN/CRE 17.8 RATIO Normal 10-20 [facility] Comment on above: Performed By: #### L 503.6005, L100.0100, L501.4021, M200.1000, L300.4310, L500.4050, L500.3400 ####[facility] [address] [place], [address] Calcium [Mass/Vol] 8.5 mg/dL Normal 7.6-11.0 [facility] Comment on above: Performed By: #### L 503.6005, L100.0100, L501.4021, M200.1000, L300.4310, L500.4050, L500.3400 ####[facility] [address] [place], [address] Chloride [Moles/Vol] 106 mmol/L Normal 98-108 [facility] Comment on above: Performed By: #### L 503.6005, L100.0100, L501.4021, M200.1000, L300.4310, L500.4050, L500.3400 ####[facility] [address] [place], [address] CO2 [Moles/Vol] 18.3 mmol/L Low 21.0-32.0 [facility] Comment on above: Performed By: #### L 503.6005, L100.0100, L501.4021, M200.1000, L300.4310, L500.4050, L500.3400 ####[facility] [address] [place], [address] Creatinine [Mass/Vol] 1.01 mg/dL Normal 0.70-1.20 [facility] Comment on above: Performed By: #### L 503.6005, L100.0100, L501.4021, M200.1000, L300.4310, L500.4050, L500.3400 ####[facility] [address] [place], [address] ECRCL 42.27 ml/min Low 50-250 [facility] Comment on above: Performed By: #### L 503.6005, L100.0100, L501.4021, M200.1000, L300.4310, L500.4050, L500.3400 ####[facility] [address] [place], [address] GAP 13 Normal 5-15 [facility] Comment on above: Performed By: #### L 503.6005, L100.0100, L501.4021, M200.1000, L300.4310, L500.4050, L500.3400 ####[facility] [address] [place], [address] GFR/1.73 sq M.predicted among non-blacks MDRD (S/P/Bld) [Vol rate/Area] 56 mL/min/{1.73_m2} Low >60 [facility] Comment on above: Result Comment: mL/m in/1.73m2 CKD-EPI Creatinine Equation (2020) Performed By: #### L 503.6005, L100.0100, L501.4021, M200.1000, L300.4310, L500.4050, L500.3400 ####[facility] [address] [place], [address] Glucose [Mass/Vol] 170 mg/dL High 70-99 [facility] Comment on above: Performed By: #### L 503.6005, L100.0100, L501.4021, M200.1000, L300.4310, L500.4050, L500.3400 ####[facility] [address] [place], [address] Potassium [Moles/Vol] 4.3 mmol/L Normal 3.3-5.1 [facility] Comment on above: Performed By: #### L 503.6005, L100.0100, L501.4021, M200.1000, L300.4310, L500.4050, L500.3400 ####[facility] [address] [place], [place], [phone] Sodium [Moles/Vol] 137 mmol/L Normal 133-145 [facility] Comment on above: Performed By: #### L 503.6005, L100.0100, L501.4021, M200.1000, L300.4310, L500.4050, L500.3400 ####[facility] [address] [place], [place], [phone] Urea nitrogen [Mass/Vol] 18 mg/dL Normal 4-19 [facility] Comment on above: Performed By: #### L 503.6005, L100.0100, L501.4021, M200.1000, L300.4310, L500.4050, L500.3400 ####[facility] [address] [place], [place], [phone] Emergency Department Summary on 04-08-2025 Emergency Department Summary Normal [facility] Eosinophil percentageOrdered By: Shaun Camejo on 04-08-2025 Eosinophils/100 WBC (Bld) 0.7 % 0-5 [facility] Erythrocyte distribution wid th ratioOrdered By: Shaun Camejo on 04-08-2025 Erythrocyte distribution width (RBC) [Ratio] 17.8 % High 11.6-14.6 [facility] Erythrocyte distribution wid th standard deviationOrdered By: Shaun Camejo on 04-08-2025 Erythrocyte distribution width (RBC) [Ratio] 67.8 fl High 35.1-43.9 [facility] GLUCOSE POCon 04-08-2025 Glucose [Mass/Vol] 183 mg/dL High 70 - 179 mg/dL [facility] Interpretation and review of laboratory results Abnormal [facility] POC Sample Type VENO [facility] Glomerular filtration rate ( GFR) estimation/1.73 sq m using serum, plasma, or whole bOrdered By: Shaun Camejo on 04-08-2025 GFR/1.73 sq M.predicted among non-blacks MDRD (S/P/Bld) [Vol rate/Area] 56 mL/min/{1.73_m2} Low >60 [facility] Comment on above: mL/min/1.73m2 CKD-EP I Creatinine Equation (2020) [facility] deOrdered By: Shaun Camejo on 04-08-2025 Glucose [Mass/Vol] 151 mg/dL High 74-106 [facility] Comment on above: MANAGEMENT OF PATIEN T CARE PER NURSING PROTOCOL HIGH SENSITIVITY TROPONIN I - SINGLE ORDERon 04-08-2025 Interpretation and review of laboratory results Normal [facility] Troponin I.cardiac High sensitivity method [Mass/Vol] 15 ng/L NINF - 34 ng/L [facility] hs-Troponin I 15 ng/L Normal <34 [facility] Comment on above: Order Comment: Acute Coronary Syndrome (ACS): Initial Evaluation and Management:[email or web address] Performed By: #### I CA #### [facility] (DEFAULT) [address] [place] [address] Hematocrit Auto (Bld) [Volum e fraction]Ordered By: Shaun Camejo on 04-08-2025 Hematocrit (Bld) [Volume fraction] 29.8 % Low 37-47 [facility] Hemoglobin measurementOrdere d By: Shaun Camejo on 04-08-2025 Hemoglobin (Bld) [Mass/Vol] 10.2 g/dL Low 12.0-15.0 [facility] Immature granulocytes/100 WB C Auto (Bld)Ordered By: Shaun Camejo on 04-08-2025 Immature granulocytes/100 WBC (Bld) 0.500 % 0.0-0.9 [facility] Comment on above: IG% - Immature Granu locytes (promyelocytes, myelocytes and metamyelocytes) > 1% indicates that a LEFT SHIFT is Present. International normalized rat io (INR) calculationOrdered By: Shaunbillie Camejo on 04-08-2025 INR Coag (Bld) [Relative time] 1.3 {INR} [facility] Ketones Test strip Ql (U)Ord ered By: Shaun Camejo on 04-08-2025 Ketones Ql (U) Negative Negative [facility] L499.0042on 04-08-2025 Trop T High Sen 15 ng/L High <=14 [facility] Comment on above: Performed By: #### L 499.0042 ####[facility] [address] [place], [address] L499.0043on 04-08-2025 Trop T High Sen Normal <=14 [facility] Comment on above: Result Comment: Canc elled via OM: Order cancelled - Patient discharged Performed By: #### L 499.0043 ####[facility] [address] [place], [place], [id number] L501.4021on 04-08-2025 Trop T High Sen 20 ng/L High <=14 [facility] Comment on above: Performed By: #### L 503.6005, L100.0100, L501.4021, M200.1000, L300.4310, L500.4050, L500.3400 ####[facility] [address] [place], [place], [address] LIPID PANEL W CALCULATED LDL on 04-08-2025 Cholesterol [Mass/Vol] 158 mg/dL NINF - 200 mg/dL [facility] Cholesterol in HDL [Mass/Vol] 47 mg/dL 40 - PINF mg/dL [facility] Cholesterol in LDL [Mass/Vol] 94 mg/dL 0 - 99 mg/dL [facility] Cholesterol non HDL [Mass/Vol] 111 mg/dL NINF - 130 mg/dL [facility] Cholesterol.total/Chol esterol in HDL [Mass ratio] 3.4 {ratio} NINF - 4.5 [facility] Interpretation and review of laboratory results Normal [facility] Triglyceride [Mass/Vol] 84 mg/dL NINF - 150 mg/dL [facility] Calculated LDL Cholesterol 94 mg/dL Normal 0-99 [facility] Comment on above: Result Comment: [<10 0 mg/dL: Optimal] [100-129 mg/dL: Near Optimal] [130-159 mg/dL: Borderline High] [160-189 mg/dL: High] [>189 mg/dL: Very High] Performed By: #### L DO, MGO, IPB, CHM7 #### [facility] (DEFAULT) [address] [place] [address] Cholesterol [Mass/Vol] 158 mg/dL Normal <200 [facility] Comment on above: Result Comment: [<20 0 mg/dL: Desirable] [200-239 mg/dL: Borderline High] [>239 mg/dL: High] Performed By: #### L DO, MGO, IPB, CHM7 #### [facility] (DEFAULT) [address] [place] [address] Cholesterol in HDL [Mass/Vol] 47 mg/dL Normal >=40 [facility] Comment on above: Result Comment: [<40 mg/dL: Low (High Risk)] [>59 mg/dL: High (Low Risk)] Performed By: #### L DO, MGO, IPB, CHM7 #### [facility] (DEFAULT) [address] [place] [address] Non HDL Cholesterol 111 mg/dL Normal <130 [facility] Comment on above: Performed By: #### L DO, MGO, IPB, CHM7 #### [facility] (DEFAULT) [address] [place] [address] Total Cholesterol/HDL Ratio 3.4 Normal <4.5 [facility] Comment on above: Performed By: #### L DO, MGO, IPB, CHM7 #### [facility] (DEFAULT) [address] [place] [address] Triglyceride [Mass/Vol] 84 mg/dL Normal <150 [facility] Comment on above: Result Comment: [<15 0 mg/dL: Desirable] [150-199 mg/dL: Borderline] [200-499 mg/dL: High] [>500 mg/dL: Very High] Performed By: #### L DO, MGO, IPB, CHM7 #### [facility] (DEFAULT) [address] [place] [address] Laboratory - Chemistry and C hemistry - challengeOrdered By: Shaun Camejo on 04-08-2025 AST [Catalytic activity/Vol] 20 U/L <32 [facility] Laboratory - Hematology and Cell countsOrdered By: Shaun Camejo on 04-08-2025 Anisocytosis Ql (Bld) 2+ [facility] Lactic Acidon 04-08-2025 Lactate [Moles/Vol] 2.0 mmol/L Normal 0.0-2.0 [facility] Comment on above: Order Comment: Y Result Comment: Crit ical Result(s) Called to: Shayy SHELDON (ER) by:Brisa??Results read back by same. Performed By: #### L 503.6005, L100.0100, L501.4021, M200.1000, L300.4310, L500.4050, L500.3400 ####[facility] [address] [place], [place], [phone] Lactic acid measurementOrder ed By: Shaun Camejo on 04-08-2025 Lactate [Moles/Vol] 2.0 mmol/L 0.0-2.0 [facility] Comment on above: Critical Result(s) C alled to: Shayy SHELDON (ER) by: Brisa Results read back by same. Liver Profileon 04-08-2025 Albumin [Mass/Vol] 3.6 g/dL Normal 3.4-4.8 [facility] Comment on above: Performed By: #### L 503.6005, L100.0100, L501.4021, M200.1000, L300.4310, L500.4050, L500.3400 ####[facility] [address] [place], [address] ALK PHOS 29 U/L Low 35-104 [facility] Comment on above: Performed By: #### L 503.6005, L100.0100, L501.4021, M200.1000, L300.4310, L500.4050, L500.3400 ####[facility] [address] [place], [address] ALT [Catalytic activity/Vol] 13 U/L Normal <=34 [facility] Comment on above: Performed By: #### L 503.6005, L100.0100, L501.4021, M200.1000, L300.4310, L500.4050, L500.3400 ####[facility] [address] [place], [address] AST [Catalytic activity/Vol] 20 U/L Normal <=31 [facility] Comment on above: Performed By: #### L 503.6005, L100.0100, L501.4021, M200.1000, L300.4310, L500.4050, L500.3400 ####[facility] [address] [place], [address] Bilirubin [Mass/Vol] 0.51 mg/dL Normal 0.00-1.30 [facility] Comment on above: Performed By: #### L 503.6005, L100.0100, L501.4021, M200.1000, L300.4310, L500.4050, L500.3400 ####[facility] [address] [place], [address] Bilirubin.direct [Mass/Vol] 0.24 mg/dL Normal 0.00-0.30 [facility] Comment on above: Performed By: #### L 503.6005, L100.0100, L501.4021, M200.1000, L300.4310, L500.4050, L500.3400 ####[facility] [address] [place], [place], [phone] Globulin (S) [Mass/Vol] 2.1 g/dL Low 2.2-4.2 [facility] Comment on above: Performed By: #### L 503.6005, L100.0100, L501.4021, M200.1000, L300.4310, L500.4050, L500.3400 ####[facility] [address] [place], [address] T PROT 5.7 g/dL Low 5.9-8.4 [facility] Comment on above: Performed By: #### L 503.6005, L100.0100, L501.4021, M200.1000, L300.4310, L500.4050, L500.3400 ####[facility] [address] [place], [place], [phone] MCV (mean corpuscular volume ) determinationOrdered By: Shaun Camejo on 04-08-2025 MCV (RBC) [Entitic vol] 104.6 fL High 81-99 [facility] Mean corpuscular hemoglobin (MCH) determinationOrdered By: Shaun Camejo on 04-08-2025 MCH (RBC) [Entitic mass] 35.8 pg High 27.0-32.0 [facility] Mean corpuscular hemoglobin concentration (MCHC) determinationOrdered By: Shaun Camejo on 04-08-2025 MCHC (RBC) [Mass/Vol] 34.2 g/dL 32-36 [facility] Mean platelet volume determi nationOrdered By: Shaun Camejo on 04-08-2025 Platelet mean volume (Bld) [Entitic vol] 8.8 fL 6.2-12.0 [facility] Microscopic analysis of urin e for red blood cells (RBC)Ordered By: Shaun Camejo on 04-08-2025 Microscopic analysis of urine for red blood cells (RBC) 0-5 SEEN /hpf 0-5 [facility] Monocyte percentageOrdered B y: Shaun Camejo on 04-08-2025 Monocytes/100 WBC (Bld) 4.7 % 0-10 [facility] Mucus LM Ql (Urine sed)Order ed By: Shaun Camejo on 04-08-2025 Mucus Ql (Urine sed) 0 SEEN /hpf [facility] Neutrophil percentageOrdered By: Shaun Camejo on 04-08-2025 Neutrophils/100 WBC (Bld) 65.7 % 47-70 [facility] Nitrite Test strip Ql (U)Ord ered By: Shaun Camejo on 04-08-2025 Nitrite Ql (U) Positive High Negative [facility] No Panel Informationon 04-08 Radiology Study observation (narrative) [facility] No Panel InformationOrdered By: Shaun Camejo on 04-08-2025 2+ [facility] 20 U/L <32 [facility] Nucleated red blood cell per centageOrdered By: Shaun Camejo on 04-08-2025 Nucleated RBC/100 WBC (Bld) [Ratio] 0.5 % 0-5 [facility] PREPARE TO TRANSFUSE RED BLO OD CELLSon 04-08-2025 ABO/RH(D) TYPE Positive [facility] BLOOD COMPONENT TYPE Red Cells, Leukoreduced [facility] EXPIRATION DATE [id number] [facility] Product ABO/RH(D) Positive [facility] Product ABO/RH(D) NUMBER 5100 [facility] PRODUCT CODE [id number] [facility] UNIT NUMBER [id number] [facility] UNIT STATUS transfused [facility] PROTIME-INRon 04-08-2025 INR Coag (Bld) [Relative time] 1.4 {INR} High 0.9 - 1.1 [facility] Interpretation and review of laboratory results Abnormal [facility] PT Coag (PPP) [Time] 16.9 s High [facility] INR Coag (PPP) [Relative time] 1.4 {INR} High 0.9-1.1 [facility] Comment on above: Performed By: #### G SVALL #### [facility] (DEFAULT) [address] [place] [address] PT Coag (PPP) [Time] 16.9 s High 11.9-14.2 [facility] Comment on above: Performed By: #### G SVALL #### [facility] (DEFAULT) [address] [place] [address] PTTOrdered By: Norman Howard on 04-08-2025 aPTT Coag (PPP) [Time] 22.4 s Low [facility] Interpretation and review of laboratory results Abnormal [facility] PTTon 04-08-2025 aPTT Coag (Bld) [Time] 22.4 s Low 24.0-34.3 [facility] Comment on above: Order Comment: Speci men integrity checked. Performed By: #### G SVMASON #### [facility] (DEFAULT) [address] [place] [address] Partial Thromboplast Timeon 04-08-2025 aPTT Coag (Bld) [Time] 21.6 s Low 24.1-36.2 [facility] Comment on above: Performed By: #### L 503.6005, L100.0100, L501.4021, M200.1000, L300.4310, L500.4050, L500.3400 ####[facility] [address] [place], [address] Platelet countOrdered By: Destin Camejo on 04-08-2025 Platelets (Bld) [#/Vol] 156 10*3/uL 150-450 [facility] Portable XR Chest Viewson Radiology Study observation (narrative) [facility] Potassium measurement (mass/ volume)Ordered By: Shaun Camejo on 04-08-2025 Potassium (Unsp spec) [Mass/Vol] 4.3 mmol/L 3.3-5.1 [facility] Protein Test strip Ql (U)Ord ered By: Shaun Camejo on 04-08-2025 Protein Ql (U) 30 mg/dl High Negative [facility] Prothrombin Time w/INRon INR Coag (PPP) [Relative time] 1.3 {INR} Normal [facility] Comment on above: Performed By: #### L 300.3900 ####[facility] [address] [place], [place], [phone] PT Coag (PPP) [Time] 16.8 s High 11.7-14.9 [facility] Comment on above: Performed By: #### L 300.3900 ####[facility] [address] [place], [place], [phone] Prothrombin timeOrdered By: Shaun Camejo on 04-08-2025 PT Coag (PPP) [Time] 16.8 s High 11.7-14.9 [facility] RBC Auto (Bld) [#/Vol]Ordere d By: Shaun Camejo on 04-08-2025 RBC (Bld) [#/Vol] 2.85 10*6/uL Low 4.2-5.4 [facility] STROKE Brain/Head without Co nton 04-08-2025 STROKE Brain/Head without Cont Normal [facility] STROKE CTA Head AND Neck W/C onon 04-08-2025 STROKE CTA Head AND Neck W/Con Normal [facility] Serum creatinine measurement (mass/volume)Ordered By: Shaun Camejo on 04-08-2025 Creatinine [Mass/Vol] 1.01 mg/dL 0.70-1.20 [facility] Serum globulin measurementOr dered By: Shaun Camejo on 04-08-2025 Globulin (S) [Mass/Vol] 2.1 g/dL Low 2.2-4.2 [facility] Serum glucose measurement (m ass/volume)Ordered By: Shaun Camejo on 04-08-2025 Glucose [Mass/Vol] 170 mg/dL High 70-99 [facility] Serum or plasma alanine eastman otransferase (ALT) measurementOrdered By: Shaun Camejo on 04-08-2025 ALT [Catalytic activity/Vol] 13 U/L <35 [facility] Serum or plasma albumin brandan urement (mass/volume)Ordered By: Shaun Camejo on 04-08-2025 Albumin [Mass/Vol] 3.6 g/dL 3.4-4.8 [facility] Serum or plasma albumin/glob ulin mass ratioOrdered By: Shaun Camejo on 04-08-2025 Albumin/Globulin [Mass ratio] 1.7 {ratio} 0.9-2.4 [facility] Serum or plasma alkaline katalina sphatase measurementOrdered By: Shaun Camejo on 04-08-2025 ALP [Catalytic activity/Vol] 29 U/L Low 35-104 [facility] Serum or plasma calcium brandan urement (mass/volume)Ordered By: Shaun Camejo on 04-08-2025 Calcium [Mass/Vol] 8.5 mg/dL 7.6-11.0 [facility] Serum or plasma urea nitroge n measurement (mass/volume)Ordered By: Shaun Camejo on 04-08-2025 Urea nitrogen [Mass/Vol] 18 mg/dL 4-19 [facility] Sinus/Facial Boneon 04-08-20 25 Sinus/Facial Bone Normal [facility] Sodium levelOrdered By: Soni Camejo on 04-08-2025 Sodium [Moles/Vol] 137 mmol/L 133-145 [facility] Spine Cervical without Contr ason 04-08-2025 Spine Cervical without Contras Normal [facility] Squamous epithelial cells de tection in urine sediment by light microscopyOrdered By: Shaun Camejo on 04-08-2025 Epithelial cells.squamous LM Ql (Urine sed) 0-5 SEEN /hpf 5-10 [facility] TSHon 04-08-2025 Interpretation and review of laboratory results Normal [facility] TSH Qn 0.733 m[IU]/L [facility] TSH 0.733 uIU/mL Normal 0.550-4.780 [facility] Comment on above: Performed By: #### L DO, MGO, IPB, CHM7 #### [facility] (DEFAULT) [address] [place] [address] TYPE AND SCREENon 04-08-2025 ABO/RH(D) TYPE Positive [facility] Specimen Expiration 04/11/2025 23:59 [facility] ABO/RH(D) TYPE Positive Normal [facility] Comment on above: Performed By: #### X M #### [facility] (DEFAULT) [address] [place] [address] Specimen Expiration 04/11/2025 23:59 Normal [facility] Comment on above: Performed By: #### X M #### [facility] (DEFAULT) [address] [place] [address] Tibia Fibula 2 Viewson 04-08 Tibia Fibula 2 Views Normal [facility] Total proteinOrdered By: Ginette Camejo on 04-08-2025 Protein [Mass/Vol] 5.7 g/dL Low 5.9-8.4 [facility] Troponin T.cardiac [Mass/vol ume] in Serum or Plasma by High sensitivity methodOrdered By: Shaun Camejo on 04-08-2025 Troponin T.cardiac High sensitivity method [Mass/Vol] 15 ng/L High <14 [facility] Troponin T.cardiac High sensitivity method [Mass/Vol] 20 ng/L High <14 [facility] Urinalysis, Completeon 04-08 BACTERIA 2+ /hpf Normal None Seen [facility] Comment on above: Order Comment: EILEEN TER SPECIMEN Performed By: #### L 400.0001, M100.2200 ####[facility] [address] [place], [place], [phone] EPI,SQUAMOUS 0-5 SEEN Normal 5-10 [facility] Comment on above: Order Comment: EILEEN TER SPECIMEN Performed By: #### L 400.0001, M100.2200 ####[facility] [address] [place], [address] RBC 0-5 SEEN Normal 0-5 [facility] Comment on above: Order Comment: EILEEN TER SPECIMEN Performed By: #### L 400.0001, M100.2200 ####[facility] [address] [place], [address] WBC 5-10 SEEN Normal 0-5 [facility] Comment on above: Order Comment: EILEEN TER SPECIMEN Performed By: #### L 400.0001, M100.2200 ####[facility] [address] [place], [address] Mucus Ql (Urine sed) 0 SEEN Normal [facility] Comment on above: Order Comment: EILEEN TER SPECIMEN Performed By: #### L 400.0001, M100.2200 ####[facility] [address] [place], [address] Urine clarityOrdered By: Ginette Camejo on 04-08-2025 Clarity (U) Cloudy Clear [facility] Urine color determinationOrd ered By: Shaun Camejo on 04-08-2025 Color (U) Yellow Yellow [facility] Urine cultureOrdered By: Ginette Camejo on 04-08-2025 Bacteria identified Cx Nom (U) Escherichia coli Abnormal [facility] Urine glucose detectionOrder ed By: Shaun Camejo on 04-08-2025 Glucose Ql (U) Normal mg/dl Normal [facility] Urine leukocyte esterase det ection by dipstickOrdered By: Shaun Camejo on 04-08-2025 Leukocyte esterase Test strip Ql (U) 25 /ul High Negative [facility] Urine pHOrdered By: Shaun moran on 04-08-2025 pH (U) 6.0 [pH] 5.0 - 8.0 [facility] Urine sediment bacteria coun t by microscopy (number/high power field)Ordered By: Shaun Camejo on 04-08-2025 Bacteria LM.HPF (Urine sed) [#/Area] 2 /[HPF] None Seen [facility] Urine specific gravity measu rementOrdered By: Shaun Camejo on 04-08-2025 Specific gravity (U) [Rel density] 1.025 1.002-1.030 [facility] Urine urobilinogen measureme ntOrdered By: Shaun Camejo on 04-08-2025 Urobilinogen Ql (U) Normal mg/dl Normal [facility] VENOUS BLOOD GAS (FULL PANEL )on 04-08-2025 Base excess Calc (Bld) [Moles/Vol] -4.3000 mmol/L Low -3.0 - 3.0 mmol/L [facility] Calcium.ionized (Bld) [Mass/Vol] 4.53 mg/dL Low 4.60 - 5.30 mg/dL [facility] Carboxyhemoglobin (Bld) [Mass fraction] 0.7 % NINF - 1.5 % [facility] CO[facility] (Bld) [Partial pressure] 41 mm[Hg] [facility] Glucose [Mass/Vol] 188 mg/dL High 70 - 179 mg/dL [facility] HCO3 (Bld) [Moles/Vol] 22 mmol/L 22 - 29 mmol/L [facility] Hematocrit (Bld) [Volume fraction] 29 % Low 34 - 46 % [facility] Hemoglobin (Bld) [Mass/Vol] 9.8 g/dL Low 11.4 - 15.2 g/dL [facility] Interpretation and review of laboratory results Abnormal [facility] Lactate [Moles/Vol] 1.9 mmol/L High 0.5 - 1. 6 mmol/L [facility] Methemoglobin (Bld) [Mass fraction] 0 % NINF - 1.5 % [facility] Oxygen (Bld) [Partial pressure] 35 mm[Hg] mm Hg [facility] O[facility] saturation in Blood 53 % Low 70 - 80 % [facility] Oxyhemoglobin 53 % Low 94 - 98 % [facility] pH (Bld) 7.33 [pH] 7.32 - 7.43 [facility] Potassium [Moles/Vol] 4.3 mmol/L 3.5 - 5.0 mmol/L [facility] Sodium [Moles/Vol] 132 mmol/L Low 135 - 145 mmol/L [facility] Specimen source Nom (Unsp spec) Venous [facility] Base Excess -4.3 mmol/L Low -3.0-3.0 [facility] Comment on above: Performed By: #### G SVALL #### [facility] (DEFAULT) [address] [place] [address] Carboxyhemoglobin 0.7 % Normal <=1.5 [facility] Comment on above: Performed By: #### G SVALL #### [facility] (DEFAULT) [address] [place] [address] Glucose [Mass/Vol] 188 mg/dL High Nonfastin g Glucose: 70-179 [facility] Comment on above: Performed By: #### G SVALL #### [facility] (DEFAULT) [address] [place] [address] HCO3 (Bld) [Moles/Vol] 22 mmol/L Normal 22-29 [facility] Comment on above: Performed By: #### G SVALL #### [facility] (DEFAULT) [address] [place] [address] Hematocrit (Bld) [Volume fraction] 29 % Low 34-46 [facility] Comment on above: Performed By: #### G SVALL #### [facility] (DEFAULT) [address] [place] [address] Hemoglobin (Bld) [Mass/Vol] 9.8 g/dL Low 11.4-15.2 [facility] Comment on above: Performed By: #### G SVALL #### [facility] (DEFAULT) [address] [place] [address] Ionized Calcium, Whole Blood 4.53 mg/dL Low 4.60-5.30 [facility] Comment on above: Performed By: #### G SVALL #### [facility] (DEFAULT) [address] [place] [address] Lactate, Whole Blood 1.9 mmol/L High 0.5-1.6 [facility] Comment on above: Performed By: #### G SVALL #### [facility] (DEFAULT) [address] [place] [address] Methemoglobin 0.0 % Normal <=1.5 [facility] Comment on above: Performed By: #### G SVALL #### [facility] (DEFAULT) [address] [place] [address] Oxygen saturation in Blood 53 % Low 70-80 [facility] Comment on above: Performed By: #### G SVALL #### [facility] (DEFAULT) [address] [place] [address] Oxyhemoglobin 53 % Low 94-98 [facility] Comment on above: Performed By: #### G SVALL #### [facility] (DEFAULT) [address] [place] [address] 97035 pCO2, Venous 41 mm Hg Normal 36-52 [facility] Comment on above: Performed By: #### G SVALL #### [facility] (DEFAULT) [address] [place] [address] 77567 pH, Venous 7.33 Normal 7.32-7.43 [facility] Comment on above: Performed By: #### G SVALL #### [facility] (DEFAULT) [address] [place] [address] 20304 pO2, Venous 35 mm Hg Normal [facility] Comment on above: Result Comment: Veno us pO2 is not recommended for the evaluation of oxygen status, clinical correlation is recommended. Performed By: #### G SVALL #### [facility] (DEFAULT) [address] [place] [address] 24952 Potassium [Moles/Vol] 4.3 mmol/L Normal 3.5-5.0 [facility] Comment on above: Performed By: #### G SVALL #### [facility] (DEFAULT) [address] [place] [address] 52842 Performed By: #### L DO, MGO, IPB, CHM7 #### [facility] (DEFAULT) [address] [place] [address] 86766 Sodium [Moles/Vol] 132 mmol/L Low 135-145 [facility] Comment on above: Performed By: #### G SVALL #### [facility] (DEFAULT) [address] [place] [address] 18292 Specimen type Nom (Spec) Venous Normal [facility] Comment on above: Performed By: #### G SVALL #### [facility] (DEFAULT) [address] [place] [address] 72230 VITAMIN D (25-HYDROXY,TOTAL) on 04-08-2025 Interpretation and review of laboratory results Normal [facility] Vitamin D+Metabolites [Mass/Vol] 67.4 ng/mL 30.0 - 100.0 ng/mL [facility] 25-OH Vitamin D Total 67.4 ng/mL Normal 30.0-100.0 [facility] Comment on above: Order Comment: Vitam in D values have been shown to be falsely decreased in lipemic samples and should be interpreted with caution. Result Comment: <10 Deficiency 10-29 Insufficiency 30-100 Optimal Level >100 Possible Toxicity Performed By: #### X M #### [facility] (DEFAULT) [address] [place] [address] 40207 VON WILLEBRAND FACTOR AGon 0 04-08-2025 Von Willebrand Factor Antigen 333 % High 50-180 [facility] Comment on above: Order Comment: Speci men is hemolyzed, results may be adversely affected. Performed By: #### X M #### [facility] (DEFAULT) [address] [place] [address] 77969 White blood cell (WBC) count Ordered By: Shaunbillie Camejo on 04-08-2025 WBC (Bld) [#/Vol] 4.0 10*3/uL Low 4.4-11.0 [facility] White blood cell countOrdere d By: Shaunbillie Camejo on 04-08-2025 White blood cell count 5-10 SEEN /hpf 0-5 [facility] XR PELVIS 1-2 VIEWSon 2024 [...] osteoarthritis. IMPRESSION: No acute osseous abnormality. Normal [facility] XR Pelvis 2 Viewson 04-08-20 [facility] XR Pelvis 2 ViewsOrdered By: Edson Lora on 04-08-2025 [facility] Work Phone: XR Shoulder - right 2 Viewso n 04-08-2025 Radiology Study observation (narrative) [facility] Bone density reportOrdered B y: Jones Rider on 04-07-2025 Study report Skeletal system DXA [facility] Services [address] [place], [place] [address] Dexa Bone Density Study MR#: [id number] Acct: [id number] Name: ANAY SAMUELS Rep #: [id number] : 1945 F 79 From: Gurmeet Rider MD PCP: Dr. Jorge A Barclay MD Status: REG CL I Study:Dexa Bone Density Study Date of Exam: 04/07/25 Exam# [id number] Ordering Dr: Dina Barclay MD PROCEDURE: DEXA [...] Recommend follow-up as clinically warranted. Reading Location: [id number] CC: Dr. Jorge A Barclay MD ~ Sql Etl Developer: Signed [facility] Dexa Bone Density Studyon Dexa Bone Density Study Normal [facility] Oncology Visit Reporton 03-16 Oncology Visit Report Normal [facility] [place] 15-3on 04-03-2025 CA 15-3 19.8 U/mL Normal 0.0-25.0 [facility] Comment on above: Result Comment: [employer] Electrochemiluminescence Immunoassay(ECLIA)Values obtained with different assay methods or kits cannotbe used interchangeably. Results cannot be interpreted asabsolute evidence of the presence or absence of malignantdisease.Performed at: [address] [id number] Director: Trev Joy PhD, Phone: [phone] Performed By: #### L 3100.5030, L500.4050, L3100.5040, L504.2610, L100.0100 ####[facility] [address] [place], [place], [address] [place] 27.29on 04-03-2025 CA 27.29 20.8 U/mL Normal 0.0-38.6 [facility] Comment on above: Result Comment: [employer] Immunochemiluminometric Methodology (ICMA)Values obtained with different assay methods or kits cannotbe used interchangeably. Results cannot be interpreted asabsolute evidence of the presence or absence of malignantdisease. Performed By: #### L 3100.5030, L500.4050, L3100.5040, L504.2610, L100.0100 ####[facility] [address] [place], [place], [id number] Absolute lymphocyte countOrd ered By: Alex Love on 04-02-2025 Lymphocytes Auto (Unsp spec) [#/Vol] 1.19 10*3/uL 0.83-4.51 [facility] Absolute neutrophil countOrd ered By: Alex [facility] on 04-02-2025 Neutrophils (Bld) [#/Vol] 3.0 10*3/uL 2.0-7.7 [facility] Anion gap in Serum or Plasma Ordered By: Alex Love on 04-02-2025 Anion gap [Moles/Vol] 10 mmol/L 5-15 [facility] Automated lymphocyte count a s percentage of total leukocytesOrdered By: Alex Love on 04-02-2025 Lymphocytes/100 WBC Auto (Unsp spec) 25.8 % - [facility] BUN/creatinine ratioOrdered By: Alex [facility] on 04-02-2025 Urea nitrogen/Creatinine [Mass ratio] 20.3 mg/mg High 10-20 [facility] Basophil percentageOrdered B y: Aelx Love on 04-02-2025 Basophils/100 WBC (Bld) 0.7 % 0-1 [facility] Bilirubin, totalOrdered By: Alex Love on 04-02-2025 Bilirubin [Mass/Vol] 0.59 mg/dL 0.00-1.30 [facility] [place] 15-3Ordered By: Alex yoon on 04-02-2025 [place] 15-3 19.8 U/mL 0.0-25.0 [facility] Comment on above: [facility] El ectrochemiluminescence Immunoassay(ECLIA)Values obtained with different assay methods or kits cannotbe used interchangeably. Results cannot be interpreted asabsolute evidence of the presence or absence of malignantdisease.Performed at: [facility] [address] [id number] Director: Trev Joy PhD, Phone: [phone] [place] .Ordered By: Alex germain on 04-02-2025 [place] 27.29 20.8 U/mL 0.0-38.6 [facility] Comment on above: Siemens Simple[employer] Immu nochemiluminometric Methodology (ICMA)Values obtained with different assay methods or kits cannotbe used interchangeably. Results cannot be interpreted asabsolute evidence of the presence or absence of malignantdisease. CBC W/Diff, Automatedon 03-15 Anisocytosis Ql (Bld) 2+ Normal [facility] Comment on above: Performed By: #### L 3100.5030, L500.4050, L3100.5040, L504.2610, L100.0100 ####[facility] [address] [place], [place], [id number] Carbon dioxide, total [Moles /volume] in Central venous bloodOrdered By: Alex Love on 04-02-2025 CO2 [Moles/Vol] 22.3 mmol/L 21.0-32.0 [facility] Chloride assayOrdered By: Mariana Love on 04-02-2025 Chloride [Moles/Vol] 106 mmol/L 98-108 [facility] Comprehensive Metabolic Prof ilon 04-02-2025 Albumin [Mass/Vol] 3.8 g/dL Normal 3.4-4.8 [facility] Comment on above: Performed By: #### L 3100.5030, L500.4050, L3100.5040, L504.2610, L100.0100 ####[facility] [address] [place], [address] Albumin/Globulin [Mass ratio] 1.8 {ratio} Normal 0.9-2.4 [facility] Comment on above: Performed By: #### L 3100.5030, L500.4050, L3100.5040, L504.2610, L100.0100 ####[facility] [address] [place], [address] ALK PHOS 32 U/L Low 35-104 [facility] Comment on above: Performed By: #### L 3100.5030, L500.4050, L3100.5040, L504.2610, L100.0100 ####[facility] [address] [place], [address] ALT [Catalytic activity/Vol] 13 U/L Normal <=34 [facility] Comment on above: Performed By: #### L 3100.5030, L500.4050, L3100.5040, L504.2610, L100.0100 ####[facility] [address] [place], [address] AST [Catalytic activity/Vol] 18 U/L Normal <=31 [facility] Comment on above: Performed By: #### L 3100.5030, L500.4050, L3100.5040, L504.2610, L100.0100 ####[facility] [address] [place], [address] Bilirubin [Mass/Vol] 0.59 mg/dL Normal 0.00-1.30 [facility] Comment on above: Performed By: #### L 3100.5030, L500.4050, L3100.5040, L504.2610, L100.0100 ####[facility] [address] [place], [address] BUN/CRE 20.3 RATIO High 10-20 [facility] Comment on above: Performed By: #### L 3100.5030, L500.4050, L3100.5040, L504.2610, L100.0100 ####[facility] [address] [place], [address] Calcium [Mass/Vol] 8.8 mg/dL Normal 7.6-11.0 [facility] Comment on above: Performed By: #### L 3100.5030, L500.4050, L3100.5040, L504.2610, L100.0100 ####[facility] [address] [place], [address] Chloride [Moles/Vol] 106 mmol/L Normal 98-108 [facility] Comment on above: Performed By: #### L 3100.5030, L500.4050, L3100.5040, L504.2610, L100.0100 ####[facility] [address] [place], [address] CO2 [Moles/Vol] 22.3 mmol/L Normal 21.0-32.0 [facility] Comment on above: Performed By: #### L 3100.5030, L500.4050, L3100.5040, L504.2610, L100.0100 ####[facility] [address] [place], [address] Creatinine [Mass/Vol] 0.92 mg/dL Normal 0.70-1.20 [facility] Comment on above: Performed By: #### L 3100.5030, L500.4050, L3100.5040, L504.2610, L100.0100 ####[facility] [address] [place], [address] ECRCL 44.62 ml/min Low 50-250 [facility] Comment on above: Performed By: #### L 3100.5030, L500.4050, L3100.5040, L504.2610, L100.0100 ####[facility] [address] [place], [address] GAP 10 Normal 5-15 [facility] Comment on above: Performed By: #### L 3100.5030, L500.4050, L3100.5040, L504.2610, L100.0100 ####[facility] [address] [place], [address] GFR/1.73 sq M.predicted among non-blacks MDRD (S/P/Bld) [Vol rate/Area] 62 mL/min/{1.73_m2} Normal >60 [facility] Comment on above: Result Comment: mL/m in/1.73m2 CKD-EPI Creatinine Equation (2020) Performed By: #### L 3100.5030, L500.4050, L3100.5040, L504.2610, L100.0100 ####[facility] [address] [place], [address] Globulin (S) [Mass/Vol] 2.1 g/dL Low 2.2-4.2 [facility] Comment on above: Performed By: #### L 3100.5030, L500.4050, L3100.5040, L504.2610, L100.0100 ####[facility] [address] [place], [address] Glucose [Mass/Vol] 101 mg/dL High 70-99 [facility] Comment on above: Performed By: #### L 3100.5030, L500.4050, L3100.5040, L504.2610, L100.0100 ####[facility] [address] [place], [address] Potassium [Moles/Vol] 4.3 mmol/L Normal 3.3-5.1 [facility] Comment on above: Performed By: #### L 3100.5030, L500.4050, L3100.5040, L504.2610, L100.0100 ####[facility] [address] [place], [address] Sodium [Moles/Vol] 138 mmol/L Normal 133-145 [facility] Comment on above: Performed By: #### L 3100.5030, L500.4050, L3100.5040, L504.2610, L100.0100 ####[facility] [address] [place], [address] T PROT 5.9 g/dL Normal 5.9-8.4 [facility] Comment on above: Performed By: #### L 3100.5030, L500.4050, L3100.5040, L504.2610, L100.0100 ####[facility] [address] [place], [address] Urea nitrogen [Mass/Vol] 19 mg/dL Normal 4-19 [facility] Comment on above: Performed By: #### L 3100.5030, L500.4050, L3100.5040, L504.2610, L100.0100 ####[facility] [address] [place], [address] Eosinophil percentageOrdered By: Alex Love on 04-02-2025 Eosinophils/100 WBC (Bld) 1.5 % 0-5 [facility] Erythrocyte distribution wid th ratioOrdered By: Alex Love on 04-02-2025 Erythrocyte distribution width (RBC) [Ratio] 17.7 % High 11.6-14.6 [facility] Erythrocyte distribution wid th standard deviationOrdered By: Alex Love on 04-02-2025 Erythrocyte distribution width (RBC) [Ratio] 66.9 fl High 35.1-43.9 [facility] Glomerular filtration rate ( GFR) estimation/1.73 sq m using serum, plasma, or whole bOrdered By: Alex Love on 04-02-2025 GFR/1.73 sq M.predicted among non-blacks MDRD (S/P/Bld) [Vol rate/Area] 62 mL/min/{1.73_m2} >60 [facility] Comment on above: mL/min/1.73m2 CKD-EP I Creatinine Equation (2020) Hematocrit Auto (Bld) [Volum e fraction]Ordered By: Alex Love on 04-02-2025 Hematocrit (Bld) [Volume fraction] 31.2 % Low 37-47 [facility] Hemoglobin measurementOrdere d By: Alex Love on 04-02-2025 Hemoglobin (Bld) [Mass/Vol] 10.7 g/dL Low 12.0-15.0 [facility] Immature granulocytes/100 WB C Auto (Bld)Ordered By: Alex Love on 04-02-2025 Immature granulocytes/100 WBC (Bld) 0.700 % 0.0-0.9 [facility] Comment on above: IG% - Immature Granu locytes (promyelocytes, myelocytes and metamyelocytes) > 1% indicates that a LEFT SHIFT is Present. LDHon 04-02-2025 LDH 245 U/L Normal 84-246 [facility] Comment on above: Order Comment: 1 Performed By: #### L 3100.5030, L500.4050, L3100.5040, L504.2610, L100.0100 ####[facility] [address] [place], [place], [id number] Laboratory - Chemistry and C hemistry - challengeOrdered By: Alex Love on 04-02-2025 AST [Catalytic activity/Vol] 18 U/L <32 [facility] Laboratory - Hematology and Cell countsOrdered By: Alex Love on 04-02-2025 Anisocytosis Ql (Bld) 2+ [facility] Lactate dehydrogenase (LDH) measurementOrdered By: Alex Love on 04-02-2025 LDH [Catalytic activity/Vol] 245 U/L 84-246 [facility] MCV (mean corpuscular volume ) determinationOrdered By: Alex Love on 04-02-2025 MCV (RBC) [Entitic vol] 104.7 fL High 81-99 [facility] Mean corpuscular hemoglobin (MCH) determinationOrdered By: Alex Love on 04-02-2025 MCH (RBC) [Entitic mass] 35.9 pg High 27.0-32.0 [facility] Mean corpuscular hemoglobin concentration (MCHC) determinationOrdered By: Alex Love on 04-02-2025 MCHC (RBC) [Mass/Vol] 34.3 g/dL 32-36 [facility] Mean platelet volume determi nationOrdered By: Alex Love on 04-02-2025 Platelet mean volume (Bld) [Entitic vol] 8.8 fL 6.2-12.0 [facility] Monocyte percentageOrdered B y: Alex Love on 04-02-2025 Monocytes/100 WBC (Bld) 7.4 % 0-10 [facility] Neutrophil percentageOrdered By: Alex Love on 04-02-2025 Neutrophils/100 WBC (Bld) 63.9 % 47-70 [facility] No Panel InformationOrdered By: Alex Love on 04-02-2025 2+ [facility] 18 U/L <32 [facility] Nucleated red blood cell per centageOrdered By: Alex Love on 04-02-2025 Nucleated RBC/100 WBC (Bld) [Ratio] 0 % 0-5 [facility] Platelet countOrdered By: Mariana Love on 04-02-2025 Platelets (Bld) [#/Vol] 151 10*3/uL 150-450 [facility] Potassium measurement (mass/ volume)Ordered By: Alex Love on 04-02-2025 Potassium (Unsp spec) [Mass/Vol] 4.3 mmol/L 3.3-5.1 [facility] RBC Auto (Bld) [#/Vol]Ordere d By: Alex Love on 04-02-2025 RBC (Bld) [#/Vol] 2.98 10*6/uL Low 4.2-5.4 [facility] Serum creatinine measurement (mass/volume)Ordered By: Alex Love on 04-02-2025 Creatinine [Mass/Vol] 0.92 mg/dL 0.70-1.20 [facility] Serum globulin measurementOr dered By: Alex Love on 04-02-2025 Globulin (S) [Mass/Vol] 2.1 g/dL Low 2.2-4.2 [facility] Serum glucose measurement (m ass/volume)Ordered By: Alex Love on 04-02-2025 Glucose [Mass/Vol] 101 mg/dL High 70-99 [facility] Serum or plasma alanine eastman otransferase (ALT) measurementOrdered By: Alex Love on 04-02-2025 ALT [Catalytic activity/Vol] 13 U/L <35 [facility] Serum or plasma albumin brandan urement (mass/volume)Ordered By: Alex Love on 04-02-2025 Albumin [Mass/Vol] 3.8 g/dL 3.4-4.8 [facility] Serum or plasma albumin/glob ulin mass ratioOrdered By: Alex Love on 04-02-2025 Albumin/Globulin [Mass ratio] 1.8 {ratio} 0.9-2.4 [facility] Serum or plasma alkaline katalina sphatase measurementOrdered By: Alex Love on 04-02-2025 ALP [Catalytic activity/Vol] 32 U/L Low 35-104 [facility] Serum or plasma calcium brandan urement (mass/volume)Ordered By: Alex Love on 04-02-2025 Calcium [Mass/Vol] 8.8 mg/dL 7.6-11.0 [facility] Serum or plasma urea nitroge n measurement (mass/volume)Ordered By: Alex Love on 04-02-2025 Urea nitrogen [Mass/Vol] 19 mg/dL 4-19 [facility] Sodium levelOrdered By: Jim Love on 04-02-2025 Sodium [Moles/Vol] 138 mmol/L 133-145 [facility] Total proteinOrdered By: Torito Love on 04-02-2025 Protein [Mass/Vol] 5.9 g/dL 5.9-8.4 [facility] White blood cell (WBC) count Ordered By: Alex Love on 04-02-2025 WBC (Bld) [#/Vol] 4.6 10*3/uL 4.4-11.0 [facility] Oncology Visit Reporton 02-13 Oncology Visit Report Normal [facility] CA 15-3on 03-07-2025 CA 15-3 25.1 U/mL Abnormal 0.0-25.0 [facility] Comment on above: Result Comment: [employer] Electrochemiluminescence Immunoassay(ECLIA)Values obtained with different assay methods or kits cannotbe used interchangeably. Results cannot be interpreted asabsolute evidence of the presence or absence of malignantdisease.Performed at: [employer] [id number] Director: Trev Joy PhD, Phone: [phone] Performed By: #### L 100.0100, L3100.5030, L500.4050, L3100.5040, L504.2610 ####[facility] [address] [place], [place], [id number] [place] 27.29on 03-07-2025 [place] 27.29 27.4 U/mL Normal 0.0-38.6 [facility] Comment on above: Result Comment: Al[employer] Immunochemiluminometric Methodology (ICMA)Values obtained with different assay methods or kits cannotbe used interchangeably. Results cannot be interpreted asabsolute evidence of the presence or absence of malignantdisease. Performed By: #### L 100.0100, L3100.5030, L500.4050, L3100.5040, L504.2610 ####[facility] [address] [place], [place], [id number] Absolute lymphocyte countOrd ered By: Alex Love on 03-05-2025 Lymphocytes Auto (Unsp spec) [#/Vol] 1.60 10*3/uL 0.83-4.51 [facility] Absolute neutrophil countOrd ered By: Alex Love on 03-05-2025 Neutrophils (Bld) [#/Vol] 3.8 10*3/uL 2.0-7.7 [facility] Anion gap in Serum or Plasma Ordered By: Alex Love on 03-05-2025 Anion gap [Moles/Vol] 10 mmol/L 5-15 [facility] Automated lymphocyte count a s percentage of total leukocytesOrdered By: Alex Love on 03-05-2025 Lymphocytes/100 WBC Auto (Unsp spec) 26.9 % 19-41 [facility] BUN/creatinine ratioOrdered By: Alex Love on 03-05-2025 Urea nitrogen/Creatinine [Mass ratio] 19.9 mg/mg 10-20 [facility] Basophil percentageOrdered B y: Alex Love on 03-05-2025 Basophils/100 WBC (Bld) 0.7 % 0-1 [facility] Bilirubin, totalOrdered By: Alex Love on 03-05-2025 Bilirubin [Mass/Vol] 0.58 mg/dL 0.00-1.30 [facility] [place] 15-3Ordered By: Alex yoon on 03-05-2025 CA 15-3 25.1 U/mL High 0.0-25.0 [facility] Comment on above: [employer] El ectrochemiluminescence Immunoassay(ECLIA)Values obtained with different assay methods or kits cannotbe used interchangeably. Results cannot be interpreted asabsolute evidence of the presence or absence of malignantdisease.Performed at: [employer] Director: Trev Joy PhD, Phone: [phone] [place] 27.29Ordered By: Alex germain on 03-05-2025 CA 27.29 27.4 U/mL 0.0-38.6 [facility] Comment on above: [employer] Immu nochemiluminometric Methodology (ICMA)Values obtained with different assay methods or kits cannotbe used interchangeably. Results cannot be interpreted asabsolute evidence of the presence or absence of malignantdisease. CBC W/Diff, Automatedon 02-13 Absolute Lymph 1.60 X10 3/uL Normal 0.83-4.51 [facility] Comment on above: Performed By: #### L 100.0100, L3100.5030, L500.4050, L3100.5040, L504.2610 ####[facility] [address] [place], [place], [id number] Absolute Neut 3.8 X10 3/uL Normal 2.0-7.7 [facility] Comment on above: Performed By: #### L 100.0100, L3100.5030, L500.4050, L3100.5040, L504.2610 ####[facility] [address] [place], [address] Basophils/100 WBC (Bld) 0.7 % Normal 0-1 [facility] Comment on above: Performed By: #### L 100.0100, L3100.5030, L500.4050, L3100.5040, L504.2610 ####[facility] [address] [place], [address] Eosinophils/100 WBC (Bld) 1.0 % Normal 0-5 [facility] Comment on above: Performed By: #### L 100.0100, L3100.5030, L500.4050, L3100.5040, L504.2610 ####[facility] [address] [place], [address] Erythrocyte distribution width (RBC) [Ratio] 15.2 % High 11.6-14.6 [facility] Comment on above: Performed By: #### L 100.0100, L3100.5030, L500.4050, L3100.5040, L504.2610 ####[facility] [address] [place], [address] Hematocrit (Bld) [Volume fraction] 33.9 % Low 37-47 [facility] Comment on above: Performed By: #### L 100.0100, L3100.5030, L500.4050, L3100.5040, L504.2610 ####[facility] [address] [place], [address] Hemoglobin (Bld) [Mass/Vol] 11.3 g/dL Low 12.0-15.0 [facility] Comment on above: Performed By: #### L 100.0100, L3100.5030, L500.4050, L3100.5040, L504.2610 ####[facility] [address] [place], [address] IG% 0.500 Normal 0.0-0.9 [facility] Comment on above: Result Comment: IG% - Immature Granulocytes (promyelocytes, myelocytes andmetamyelocytes) > 1% indicates that a LEFT SHIFT is Present. Performed By: #### L 100.0100, L3100.5030, L500.4050, L3100.5040, L504.2610 ####[facility] [address] [place], [address] Lymphocytes/100 WBC (Bld) 26.9 % Normal 19-41 [facility] Comment on above: Performed By: #### L 100.0100, L3100.5030, L500.4050, L3100.5040, L504.2610 ####[facility] [address] [place], [address] MCH (RBC) [Entitic mass] 34.0 pg High 27.0-32.0 [facility] Comment on above: Performed By: #### L 100.0100, L3100.5030, L500.4050, L3100.5040, L504.2610 ####[facility] [address] [place], [address] MCHC (RBC) [Mass/Vol] 33.3 g/dL Normal 32-36 [facility] Comment on above: Performed By: #### L 100.0100, L3100.5030, L500.4050, L3100.5040, L504.2610 ####[facility] [address] [place], [address] MCV (RBC) [Entitic vol] 102.1 fL High 81-99 [facility] Comment on above: Performed By: #### L 100.0100, L3100.5030, L500.4050, L3100.5040, L504.2610 ####[facility] [address] [place], [address] Monocytes/100 WBC (Bld) 7.6 % Normal 0-10 [facility] Comment on above: Performed By: #### L 100.0100, L3100.5030, L500.4050, L3100.5040, L504.2610 ####[facility] [address] [place], [address] Neutrophils/100 WBC (Bld) 63.3 % Normal 47-70 [facility] Comment on above: Performed By: #### L 100.0100, L3100.5030, L500.4050, L3100.5040, L504.2610 ####[facility] [address] [place], [address] Nucleated RBC (Bld) [#/Vol] 0 10*3/uL Normal 0-5 [facility] Comment on above: Performed By: #### L 100.0100, L3100.5030, L500.4050, L3100.5040, L504.2610 ####[facility] [address] [place], [address] Platelet mean volume (Bld) [Entitic vol] 8.8 fL Normal 6.2-12.0 [facility] Comment on above: Performed By: #### L 100.0100, L3100.5030, L500.4050, L3100.5040, L504.2610 ####[facility] [address] [place], [address] Platelets (Bld) [#/Vol] 160 10*3/uL Normal 150-450 [facility] Comment on above: Performed By: #### L 100.0100, L3100.5030, L500.4050, L3100.5040, L504.2610 ####[facility] [address] [place], [address] RBC (Bld) [#/Vol] 3.32 10*6/uL Low 4.2-5.4 [facility] Comment on above: Performed By: #### L 100.0100, L3100.5030, L500.4050, L3100.5040, L504.2610 ####[facility] [address] [place], [address] RDW SD 55.8 fl High 35.1-43.9 [facility] Comment on above: Performed By: #### L 100.0100, L3100.5030, L500.4050, L3100.5040, L504.2610 ####[facility] [address] [place], [address] WBC (Bld) [#/Vol] 6.0 10*3/uL Normal 4.4-11.0 [facility] Comment on above: Performed By: #### L 100.0100, L3100.5030, L500.4050, L3100.5040, L504.2610 ####[facility] [address] [place], [address] Carbon dioxide, total [Moles /volume] in Central venous bloodOrdered By: Alex Love on 03-05-2025 CO2 [Moles/Vol] 22.5 mmol/L 21.0-32.0 [facility] Chloride assayOrdered By: Mariana Love on 03-05-2025 Chloride [Moles/Vol] 105 mmol/L 98-108 [facility] Comprehensive Metabolic Prof ilon 03-05-2025 Albumin [Mass/Vol] 3.8 g/dL Normal 3.4-4.8 [facility] Comment on above: Performed By: #### L 100.0100, L3100.5030, L500.4050, L3100.5040, L504.2610 ####[facility] [address] [place], [address] Albumin/Globulin [Mass ratio] 1.7 {ratio} Normal 0.9-2.4 [facility] Comment on above: Performed By: #### L 100.0100, L3100.5030, L500.4050, L3100.5040, L504.2610 ####[facility] [address] [place], [address] ALK PHOS 29 U/L Low 35-104 [facility] Comment on above: Performed By: #### L 100.0100, L3100.5030, L500.4050, L3100.5040, L504.2610 ####[facility] [address] [place], [address] ALT [Catalytic activity/Vol] 14 U/L Normal <=34 [facility] Comment on above: Performed By: #### L 100.0100, L3100.5030, L500.4050, L3100.5040, L504.2610 ####[facility] [address] [place], [address] AST [Catalytic activity/Vol] 19 U/L Normal <=31 [facility] Comment on above: Performed By: #### L 100.0100, L3100.5030, L500.4050, L3100.5040, L504.2610 ####[facility] [address] [place], [address] Bilirubin [Mass/Vol] 0.58 mg/dL Normal 0.00-1.30 [facility] Comment on above: Performed By: #### L 100.0100, L3100.5030, L500.4050, L3100.5040, L504.2610 ####[facility] [address] [place], [address] BUN/CRE 19.9 RATIO Normal 10-20 [facility] Comment on above: Performed By: #### L 100.0100, L3100.5030, L500.4050, L3100.5040, L504.2610 ####[facility] [address] [place], [address] Calcium [Mass/Vol] 8.7 mg/dL Normal 7.6-11.0 [facility] Comment on above: Performed By: #### L 100.0100, L3100.5030, L500.4050, L3100.5040, L504.2610 ####[facility] [address] [place], [address] Chloride [Moles/Vol] 105 mmol/L Normal 98-108 [facility] Comment on above: Performed By: #### L 100.0100, L3100.5030, L500.4050, L3100.5040, L504.2610 ####[facility] [address] [place], [address] CO2 [Moles/Vol] 22.5 mmol/L Normal 21.0-32.0 [facility] Comment on above: Performed By: #### L 100.0100, L3100.5030, L500.4050, L3100.5040, L504.2610 ####[facility] [address] [place], [address] Creatinine [Mass/Vol] 0.98 mg/dL Normal 0.70-1.20 [facility] Comment on above: Performed By: #### L 100.0100, L3100.5030, L500.4050, L3100.5040, L504.2610 ####[facility] [address] [place], [address] ECRCL 42.62 ml/min Low 50-250 [facility] Comment on above: Performed By: #### L 100.0100, L3100.5030, L500.4050, L3100.5040, L504.2610 ####[facility] [address] [place], [address] GAP 10 Normal 5-15 [facility] Comment on above: Performed By: #### L 100.0100, L3100.5030, L500.4050, L3100.5040, L504.2610 ####[facility] [address] [place], [address] GFR/1.73 sq M.predicted among non-blacks MDRD (S/P/Bld) [Vol rate/Area] 58 mL/min/{1.73_m2} Low >60 [facility] Comment on above: Result Comment: mL/m in/1.73m2 CKD-EPI Creatinine Equation (2020) Performed By: #### L 100.0100, L3100.5030, L500.4050, L3100.5040, L504.2610 ####[facility] [address] [place], [address] Globulin (S) [Mass/Vol] 2.3 g/dL Normal 2.2-4.2 [facility] Comment on above: Performed By: #### L 100.0100, L3100.5030, L500.4050, L3100.5040, L504.2610 ####[facility] [address] [place], [address] Glucose [Mass/Vol] 95 mg/dL Normal 70-99 [facility] Comment on above: Performed By: #### L 100.0100, L3100.5030, L500.4050, L3100.5040, L504.2610 ####[facility] [address] [place], [address] Potassium [Moles/Vol] 4.2 mmol/L Normal 3.3-5.1 [facility] Comment on above: Performed By: #### L 100.0100, L3100.5030, L500.4050, L3100.5040, L504.2610 ####[facility] [address] [place], [address] Sodium [Moles/Vol] 137 mmol/L Normal 133-145 [facility] Comment on above: Performed By: #### L 100.0100, L3100.5030, L500.4050, L3100.5040, L504.2610 ####[facility] [address] [place], [address] T PROT 6.1 g/dL Normal 5.9-8.4 [facility] Comment on above: Performed By: #### L 100.0100, L3100.5030, L500.4050, L3100.5040, L504.2610 ####[facility] [address] [place], [address] Urea nitrogen [Mass/Vol] 20 mg/dL High 4-19 [facility] Comment on above: Performed By: #### L 100.0100, L3100.5030, L500.4050, L3100.5040, L504.2610 ####[facility] [address] [place], [address] Eosinophil percentageOrdered By: Alex Love on 03-05-2025 Eosinophils/100 WBC (Bld) 1.0 % 0-5 [facility] Erythrocyte distribution wid th ratioOrdered By: Alex Love on 03-05-2025 Erythrocyte distribution width (RBC) [Ratio] 15.2 % High 11.6-14.6 [facility] Erythrocyte distribution wid th standard deviationOrdered By: Alex Love on 03-05-2025 Erythrocyte distribution width (RBC) [Ratio] 55.8 fl High 35.1-43.9 [facility] Glomerular filtration rate ( GFR) estimation/1.73 sq m using serum, plasma, or whole bOrdered By: Alex Love on 03-05-2025 GFR/1.73 sq M.predicted among non-blacks MDRD (S/P/Bld) [Vol rate/Area] 58 mL/min/{1.73_m2} Low >60 [facility] Comment on above: mL/min/1.73m2 CKD-EP I Creatinine Equation (2020) Hematocrit Auto (Bld) [Volum e fraction]Ordered By: Alex Love on 03-05-2025 Hematocrit (Bld) [Volume fraction] 33.9 % Low 37-47 [facility] Hemoglobin measurementOrdere d By: Alex Love on 03-05-2025 Hemoglobin (Bld) [Mass/Vol] 11.3 g/dL Low 12.0-15.0 [facility] Immature granulocytes/100 WB C Auto (Bld)Ordered By: Alex Love on 03-05-2025 Immature granulocytes/100 WBC (Bld) 0.500 % 0.0-0.9 [facility] Comment on above: IG% - Immature Granu locytes (promyelocytes, myelocytes and metamyelocytes) > 1% indicates that a LEFT SHIFT is Present. LDHon 03-05-2025 LDH 235 U/L Normal 84-246 [facility] Comment on above: Order Comment: 1 Performed By: #### L 100.0100, L3100.5030, L500.4050, L3100.5040, L504.2610 ####[facility] [address] [place], [address] Laboratory - Chemistry and C hemistry - challengeOrdered By: Alex Love on 03-05-2025 AST [Catalytic activity/Vol] 19 U/L <32 [facility] Lactate dehydrogenase (LDH) measurementOrdered By: Alex Love on 03-05-2025 LDH [Catalytic activity/Vol] 235 U/L 84-246 [facility] MCV (mean corpuscular volume ) determinationOrdered By: Alex Love on 03-05-2025 MCV (RBC) [Entitic vol] 102.1 fL High 81-99 [facility] Mean corpuscular hemoglobin (MCH) determinationOrdered By: Alex Love on 03-05-2025 MCH (RBC) [Entitic mass] 34.0 pg High 27.0-32.0 [facility] Mean corpuscular hemoglobin concentration (MCHC) determinationOrdered By: Alex Love on 03-05-2025 MCHC (RBC) [Mass/Vol] 33.3 g/dL 32-36 [facility] Mean platelet volume determi nationOrdered By: Alex Love on 03-05-2025 Platelet mean volume (Bld) [Entitic vol] 8.8 fL 6.2-12.0 [facility] Monocyte percentageOrdered B y: Alex Love on 03-05-2025 Monocytes/100 WBC (Bld) 7.6 % 0-10 [facility] Neutrophil percentageOrdered By: Alex Love on 03-05-2025 Neutrophils/100 WBC (Bld) 63.3 % 47-70 [facility] Nucleated red blood cell per centageOrdered By: Alex Love on 03-05-2025 Nucleated RBC/100 WBC (Bld) [Ratio] 0 % 0-5 [facility] Platelet countOrdered By: Mariana Love on 03-05-2025 Platelets (Bld) [#/Vol] 160 10*3/uL 150-450 [facility] Potassium measurement (mass/ volume)Ordered By: Alex Love on 03-05-2025 Potassium (Unsp spec) [Mass/Vol] 4.2 mmol/L 3.3-5.1 [facility] RBC Auto (Bld) [#/Vol]Ordere d By: Alex Love on 03-05-2025 RBC (Bld) [#/Vol] 3.32 10*6/uL Low 4.2-5.4 [facility] Serum creatinine measurement (mass/volume)Ordered By: Alex Love on 03-05-2025 Creatinine [Mass/Vol] 0.98 mg/dL 0.70-1.20 [facility] Serum globulin measurementOr dered By: Alex Love on 03-05-2025 Globulin (S) [Mass/Vol] 2.3 g/dL 2.2-4.2 [facility] Serum glucose measurement (m ass/volume)Ordered By: Alex Love on 03-05-2025 Glucose [Mass/Vol] 95 mg/dL 70-99 [facility] Serum or plasma alanine eastman otransferase (ALT) measurementOrdered By: Alex Love on 03-05-2025 ALT [Catalytic activity/Vol] 14 U/L <35 [facility] Serum or plasma albumin brandan urement (mass/volume)Ordered By: Alex Love on 03-05-2025 Albumin [Mass/Vol] 3.8 g/dL 3.4-4.8 [facility] Serum or plasma albumin/glob ulin mass ratioOrdered By: Alex Love on 03-05-2025 Albumin/Globulin [Mass ratio] 1.7 {ratio} 0.9-2.4 [facility] Serum or plasma alkaline katalina sphatase measurementOrdered By: Alex Love on 03-05-2025 ALP [Catalytic activity/Vol] 29 U/L Low 35-104 [facility] Serum or plasma calcium brandan urement (mass/volume)Ordered By: Alex Love on 03-05-2025 Calcium [Mass/Vol] 8.7 mg/dL 7.6-11.0 [facility] Serum or plasma urea nitroge n measurement (mass/volume)Ordered By: Alex Love on 03-05-2025 Urea nitrogen [Mass/Vol] 20 mg/dL High 4-19 [facility] Sodium levelOrdered By: Jim Love on 03-05-2025 Sodium [Moles/Vol] 137 mmol/L 133-145 [facility] Total proteinOrdered By: Torito Love on 03-05-2025 Protein [Mass/Vol] 6.1 g/dL 5.9-8.4 [facility] White blood cell (WBC) count Ordered By: Alex Love on 03-05-2025 WBC (Bld) [#/Vol] 6.0 10*3/uL 4.4-11.0 [facility] CBC W/Diff, Automatedon 04-2 Absolute Lymph 1.62 X10 3/uL Normal 0.83-4.51 [facility] Comment on above: Performed By: #### L 100.0100, L504.2610, L500.4050 ####[facility] [address] [place], [place], [address] Absolute Neut 4.4 X10 3/uL Normal 2.0-7.7 [facility] Comment on above: Performed By: #### L 100.0100, L504.2610, L500.4050 ####[facility] [address] [place], [address] Basophils/100 WBC (Bld) 0.6 % Normal 0-1 [facility] Comment on above: Performed By: #### L 100.0100, L504.2610, L500.4050 ####[facility] [address] [place], [address] Eosinophils/100 WBC (Bld) 0.9 % Normal 0-5 [facility] Comment on above: Performed By: #### L 100.0100, L504.2610, L500.4050 ####[facility] [address] [place], [address] Erythrocyte distribution width (RBC) [Ratio] 13.5 % Normal 11.6-14.6 [facility] Comment on above: Performed By: #### L 100.0100, L504.2610, L500.4050 ####[facility] [address] [place], [address] Hematocrit (Bld) [Volume fraction] 34.1 % Low 37-47 [facility] Comment on above: Performed By: #### L 100.0100, L504.2610, L500.4050 ####[facility] [address] [place], [address] Hemoglobin (Bld) [Mass/Vol] 11.4 g/dL Low 12.0-15.0 [facility] Comment on above: Performed By: #### L 100.0100, L504.2610, L500.4050 ####[facility] [address] [place], [address] IG% 0.300 Normal 0.0-0.9 [facility] Comment on above: Result Comment: IG% - Immature Granulocytes (promyelocytes, myelocytes andmetamyelocytes) > 1% indicates that a LEFT SHIFT is Present. Performed By: #### L 100.0100, L504.2610, L500.4050 ####[facility] [address] [place], [address] Lymphocytes/100 WBC (Bld) 25.2 % Normal 19-41 [facility] Comment on above: Performed By: #### L 100.0100, L504.2610, L500.4050 ####[facility] [address] [place], [address] MCH (RBC) [Entitic mass] 33.5 pg High 27.0-32.0 [facility] Comment on above: Performed By: #### L 100.0100, L504.2610, L500.4050 ####[facility] [address] [place], [address] MCHC (RBC) [Mass/Vol] 33.4 g/dL Normal 32-36 [facility] Comment on above: Performed By: #### L 100.0100, L504.2610, L500.4050 ####[facility] [address] [place], [address] MCV (RBC) [Entitic vol] 100.3 fL High 81-99 [facility] Comment on above: Performed By: #### L 100.0100, L504.2610, L500.4050 ####[facility] [address] [place], [address] Monocytes/100 WBC (Bld) 4.7 % Normal 0-10 [facility] Comment on above: Performed By: #### L 100.0100, L504.2610, L500.4050 ####[facility] [address] [place], [address] Neutrophils/100 WBC (Bld) 68.3 % Normal 47-70 [facility] Comment on above: Performed By: #### L 100.0100, L504.2610, L500.4050 ####[facility] [address] [place], [address] Nucleated RBC (Bld) [#/Vol] 0 10*3/uL Normal 0-5 [facility] Comment on above: Performed By: #### L 100.0100, L504.2610, L500.4050 ####[facility] [address] [place], [address] Platelet mean volume (Bld) [Entitic vol] 8.3 fL Normal 6.2-12.0 [facility] Comment on above: Performed By: #### L 100.0100, L504.2610, L500.4050 ####[facility] [address] [place], [address] Platelets (Bld) [#/Vol] 154 10*3/uL Normal 150-450 [facility] Comment on above: Performed By: #### L 100.0100, L504.2610, L500.4050 ####[facility] [address] [place], [address] RBC (Bld) [#/Vol] 3.40 10*6/uL Low 4.2-5.4 [facility] Comment on above: Performed By: #### L 100.0100, L504.2610, L500.4050 ####[facility] [address] [place], [address] RDW SD 47.7 fl High 35.1-43.9 [facility] Comment on above: Performed By: #### L 100.0100, L504.2610, L500.4050 ####[facility] [address] [place], [address] WBC (Bld) [#/Vol] 6.4 10*3/uL Normal 4.4-11.0 [facility] Comment on above: Performed By: #### L 100.0100, L504.2610, L500.4050 ####[facility] [address] [place], [address] Comprehensive Metabolic Prof ilon 02-09-2025 Albumin [Mass/Vol] 3.8 g/dL Normal 3.4-4.8 [facility] Comment on above: Performed By: #### L 100.0100, L504.2610, L500.4050 ####[facility] [address] [place], [address] Albumin/Globulin [Mass ratio] 1.7 {ratio} Normal 0.9-2.4 [facility] Comment on above: Performed By: #### L 100.0100, L504.2610, L500.4050 ####[facility] [address] [place], [address] ALK PHOS 29 U/L Low 35-104 [facility] Comment on above: Performed By: #### L 100.0100, L504.2610, L500.4050 ####[facility] [address] [place], [address] ALT [Catalytic activity/Vol] 10 U/L Normal <=34 [facility] Comment on above: Performed By: #### L 100.0100, L504.2610, L500.4050 ####[facility] [address] [place], [address] AST [Catalytic activity/Vol] 17 U/L Normal <=31 [facility] Comment on above: Performed By: #### L 100.0100, L504.2610, L500.4050 ####[facility] [address] [place], [address] Bilirubin [Mass/Vol] 0.46 mg/dL Normal 0.00-1.30 [facility] Comment on above: Performed By: #### L 100.0100, L504.2610, L500.4050 ####[facility] [address] [place], [address] BUN/CRE 21.5 RATIO High 10-20 [facility] Comment on above: Performed By: #### L 100.0100, L504.2610, L500.4050 ####[facility] [address] [place], [address] Calcium [Mass/Vol] 8.9 mg/dL Normal 7.6-11.0 [facility] Comment on above: Performed By: #### L 100.0100, L504.2610, L500.4050 ####[facility] [address] [place], [address] Chloride [Moles/Vol] 105 mmol/L Normal 98-108 [facility] Comment on above: Performed By: #### L 100.0100, L504.2610, L500.4050 ####[facility] [address] [place], [address] CO2 [Moles/Vol] 22.4 mmol/L Normal 21.0-32.0 [facility] Comment on above: Performed By: #### L 100.0100, L504.2610, L500.4050 ####[facility] [address] [place], [address] Creatinine [Mass/Vol] 0.85 mg/dL Normal 0.70-1.20 [facility] Comment on above: Performed By: #### L 100.0100, L504.2610, L500.4050 ####[facility] [address] [place], [address] ECRCL 49.28 ml/min Low 50-250 [facility] Comment on above: Performed By: #### L 100.0100, L504.2610, L500.4050 ####[facility] [address] [place], [address] GAP 9 Normal 5-15 [facility] Comment on above: Performed By: #### L 100.0100, L504.2610, L500.4050 ####[facility] [address] [place], [address] GFR/1.73 sq M.predicted among non-blacks MDRD (S/P/Bld) [Vol rate/Area] 69 mL/min/{1.73_m2} Normal >60 [facility] Comment on above: Result Comment: mL/m in/1.73m2 CKD-EPI Creatinine Equation (2020) Performed By: #### L 100.0100, L504.2610, L500.4050 ####[facility] [address] [place], [address] Globulin (S) [Mass/Vol] 2.2 g/dL Normal 2.2-4.2 [facility] Comment on above: Performed By: #### L 100.0100, L504.2610, L500.4050 ####[facility] [address] [place], [address] Glucose [Mass/Vol] 122 mg/dL High 70-99 [facility] Comment on above: Performed By: #### L 100.0100, L504.2610, L500.4050 ####[facility] [address] [place], [address] Potassium [Moles/Vol] 4.2 mmol/L Normal 3.3-5.1 [facility] Comment on above: Performed By: #### L 100.0100, L504.2610, L500.4050 ####[facility] [address] [place], [address] Sodium [Moles/Vol] 137 mmol/L Normal 133-145 [facility] Comment on above: Performed By: #### L 100.0100, L504.2610, L500.4050 ####[facility] [address] [place], [address] T PROT 6.0 g/dL Normal 5.9-8.4 [facility] Comment on above: Performed By: #### L 100.0100, L504.2610, L500.4050 ####[facility] [address] [place], [address] Urea nitrogen [Mass/Vol] 18 mg/dL Normal 4-19 [facility] Comment on above: Performed By: #### L 100.0100, L504.2610, L500.4050 ####[facility] [address] [place], [address] LDHon 02-09-2025 LDH 238 U/L Normal 84-246 [facility] Comment on above: Order Comment: 1 Performed By: #### L 100.0100, L504.2610, L500.4050 ####[facility] [address] [place], [address] Oncology Visit Reporton 01-14 Oncology Visit Report Normal [facility] Oncology Visit Reporton 12-13 Oncology Visit Report Normal [facility] Oncology Visit Reporton 12-13 Oncology Visit Report Normal [facility] CA 15-3on 12-18-2024 CA 15-3 34.6 U/mL Abnormal 0.0-25.0 [facility] Comment on above: Order Comment: REDRA W FROM 12/10/2024 THAT DID NOT GET SENT TO [facility] [facility] Result Comment: [employer] Electrochemiluminescence Immunoassay(ECLIA)Values obtained with different assay methods or kits cannotbe used interchangeably. Results cannot be interpreted asabsolute evidence of the presence or absence of malignantdisease.Performed at: [address] [id number] Director: Trev Joy PhD, Phone: [phone] Performed By: #### L 3100.5000, L3100.2300, L3100.5040, L3100.5030 ####[facility] [address] [place], [address] CA 27.29on 12-18-2024 CA 27.29 38.5 U/mL Normal 0.0-38.6 [facility] Comment on above: Order Comment: REDRA W FROM 12/10/2024 THAT DID NOT GET SENT TO [facility] Result Comment: [employer] Immunochemiluminometric Methodology (ICMA)Values obtained with different assay methods or kits cannotbe used interchangeably. Results cannot be interpreted asabsolute evidence of the presence or absence of malignantdisease. Performed By: #### L 3100.5000, L3100.2300, L3100.5040, L3100.5030 ####[facility] [address] [place], [address] Cancer Antigen 125on 025 CA 125 33.0 U/mL Normal 0.0-38.1 [facility] Comment on above: Order Comment: REDRA W FROM 12/10/2024 THAT DID NOT GET SENT TO [facility] Result Comment: [employer] Electrochemiluminescence Immunoassay(ECLIA)Values obtained with different assay methods or kits cannotbe used interchangeably. Results cannot be interpreted asabsolute evidence of the presence or absence of malignantdisease. Performed By: #### L 3100.5000, L3100.2300, L3100.5040, L3100.5030 ####[facility] [address] [place], [address] Carcinoembryonic Antigenon 0 12-18-2024 CEA 2.7 ng/mL Normal 0.0-4.7 [facility] Comment on above: Order Comment: REDRA W FROM 12/10/2024 THAT DID NOT GET SENT TO [facility] Result Comment: Nons mokers <3.9 Smokers <5.6[employer] Electrochemiluminescence Immunoassay(ECLIA)Values obtained with different assay methods or kitscannot be used interchangeably. Results cannot beinterpreted as absolute evidence of the presence orabsence of malignant disease. Performed By: #### L 3100.5000, L3100.2300, L3100.5040, L3100.5030 ####[facility] [address] [place], [address] Neurology Visit Reporton Neurology Visit Report Normal [facility] Cancer antigen 125 (CA-125) measurementOrdered By: Alex Love on 12-17-2024 Cancer antigen 125 (CA-125) measurement 33.0 U/mL 0.0-38.1 [facility] Comment on above: [employer] El ectrochemiluminescence Immunoassay(ECLIA)Values obtained with different assay methods or kits cannotbe used interchangeably. Results cannot be interpreted asabsolute evidence of the presence or absence of malignantdisease. Serum or plasma carcinoembry onic antigen measurement (mass/volume)Ordered By: Alex Love on 12-17-2024 Carcinoembryonic Ag [Mass/Vol] 2.7 ng/mL 0.0-4.7 [facility] Comment on above: Nonsmokers <3.9 Smok ers <5.6[employer] Electrochemiluminescence Immunoassay(ECLIA)Values obtained with different assay methods or kitscannot be used interchangeably. Results cannot beinterpreted as absolute evidence of the presence orabsence of malignant disease. CBC W/Diff, Automatedon 11-16 Absolute Lymph 1.57 X10 3/uL Normal 0.83-4.51 [facility] Comment on above: Performed By: #### L 900.0098, L504.2610, L100.0100, L500.4050 ####[facility] [address] [place], [address] Absolute Neut 3.7 X10 3/uL Normal 2.0-7.7 [facility] Comment on above: Performed By: #### L 900.0098, L504.2610, L100.0100, L500.4050 ####[facility] [address] [place], [address] Basophils/100 WBC (Bld) 1.0 % Normal 0-1 [facility] Comment on above: Performed By: #### L 900.0098, L504.2610, L100.0100, L500.4050 ####[facility] [address] [place], [address] Eosinophils/100 WBC (Bld) 1.7 % Normal 0-5 [facility] Comment on above: Performed By: #### L 900.0098, L504.2610, L100.0100, L500.4050 ####[facility] [address] [place], [address] Erythrocyte distribution width (RBC) [Ratio] 13.2 % Normal 11.6-14.6 [facility] Comment on above: Performed By: #### L 900.0098, L504.2610, L100.0100, L500.4050 ####[facility] [address] [place], [address] Hematocrit (Bld) [Volume fraction] 37.5 % Normal 37-47 [facility] Comment on above: Performed By: #### L 900.0098, L504.2610, L100.0100, L500.4050 ####[facility] [address] [place], [address] Hemoglobin (Bld) [Mass/Vol] 12.0 g/dL Normal 12.0-15.0 [facility] Comment on above: Performed By: #### L 900.0098, L504.2610, L100.0100, L500.4050 ####[facility] [address] [place], [address] IG% 0.200 Normal 0.0-0.9 [facility] Comment on above: Result Comment: IG% - Immature Granulocytes (promyelocytes, myelocytes andmetamyelocytes) > 1% indicates that a LEFT SHIFT is Present. Performed By: #### L 900.0098, L504.2610, L100.0100, L500.4050 ####[facility] [address] [place], [address] Lymphocytes/100 WBC (Bld) 26.6 % Normal 19-41 [facility] Comment on above: Performed By: #### L 900.0098, L504.2610, L100.0100, L500.4050 ####[facility] [address] [place], [address] MCH (RBC) [Entitic mass] 32.3 pg High 27.0-32.0 [facility] Comment on above: Performed By: #### L 900.0098, L504.2610, L100.0100, L500.4050 ####[facility] [address] [place], [address] MCHC (RBC) [Mass/Vol] 32.0 g/dL Normal 32-36 [facility] Comment on above: Performed By: #### L 900.0098, L504.2610, L100.0100, L500.4050 ####[facility] [address] [place], [address] MCV (RBC) [Entitic vol] 101.1 fL High 81-99 [facility] Comment on above: Performed By: #### L 900.0098, L504.2610, L100.0100, L500.4050 ####[facility] [address] [place], [address] Monocytes/100 WBC (Bld) 8.3 % Normal 0-10 [facility] Comment on above: Performed By: #### L 900.0098, L504.2610, L100.0100, L500.4050 ####[facility] [address] [place], [address] Neutrophils/100 WBC (Bld) 62.2 % Normal 47-70 [facility] Comment on above: Performed By: #### L 900.0098, L504.2610, L100.0100, L500.4050 ####[facility] [address] [place], [address] Nucleated RBC (Bld) [#/Vol] 0 10*3/uL Normal 0-5 [facility] Comment on above: Performed By: #### L 900.0098, L504.2610, L100.0100, L500.4050 ####[facility] [address] [place], [address] Platelet mean volume (Bld) [Entitic vol] 8.5 fL Normal 6.2-12.0 [facility] Comment on above: Performed By: #### L 900.0098, L504.2610, L100.0100, L500.4050 ####[facility] [address] [place], [address] Platelets (Bld) [#/Vol] 161 10*3/uL Normal 150-450 [facility] Comment on above: Performed By: #### L 900.0098, L504.2610, L100.0100, L500.4050 ####[facility] [address] [place], [address] RBC (Bld) [#/Vol] 3.71 10*6/uL Low 4.2-5.4 [facility] Comment on above: Performed By: #### L 900.0098, L504.2610, L100.0100, L500.4050 ####[facility] [address] [place], [address] RDW SD 48.4 fl High 35.1-43.9 [facility] Comment on above: Performed By: #### L 900.0098, L504.2610, L100.0100, L500.4050 ####[facility] [address] [place], [address] WBC (Bld) [#/Vol] 5.9 10*3/uL Normal 4.4-11.0 [facility] Comment on above: Performed By: #### L 900.0098, L504.2610, L100.0100, L500.4050 ####[facility] [address] [place], [address] Chloride measurementOrdered By: Alex Love on 12-10-2024 Chloride [Moles/Vol] 105 mmol/L 96-108 [facility] Comprehensive Metabolic Prof ilon 12-10-2024 Albumin [Mass/Vol] 3.9 g/dL Normal 3.4-4.8 [facility] Comment on above: Performed By: #### L 900.0098, L504.2610, L100.0100, L500.4050 ####[facility] [address] [place], [address] Albumin/Globulin [Mass ratio] 1.6 {ratio} Normal 0.9-2.4 [facility] Comment on above: Performed By: #### L 900.0098, L504.2610, L100.0100, L500.4050 ####[facility] [address] [place], [address] ALK PHOS 33 U/L Low 35-104 [facility] Comment on above: Performed By: #### L 900.0098, L504.2610, L100.0100, L500.4050 ####[facility] [address] [place], [address] ALT [Catalytic activity/Vol] 9 U/L Normal <=34 [facility] Comment on above: Performed By: #### L 900.0098, L504.2610, L100.0100, L500.4050 ####[facility] [address] [place], [address] Anion gap [Moles/Vol] 9 mmol/L Normal 5-15 [facility] Comment on above: Performed By: #### L 900.0098, L504.2610, L100.0100, L500.4050 ####[facility] [address] [place], [address] AST [Catalytic activity/Vol] 18 U/L Normal <=31 [facility] Comment on above: Performed By: #### L 900.0098, L504.2610, L100.0100, L500.4050 ####[facility] [address] [place], [address] Bilirubin [Mass/Vol] 0.36 mg/dL Normal 0.00-1.30 [facility] Comment on above: Performed By: #### L 900.0098, L504.2610, L100.0100, L500.4050 ####[facility] [address] [place], [address] BUN/CRE 20.9 RATIO High 10-20 [facility] Comment on above: Performed By: #### L 900.0098, L504.2610, L100.0100, L500.4050 ####[facility] [address] [place], [address] Calcium [Mass/Vol] 8.7 mg/dL Normal 7.6-11.0 [facility] Comment on above: Performed By: #### L 900.0098, L504.2610, L100.0100, L500.4050 ####[facility] [address] [place], [address] Chloride [Moles/Vol] 105 mmol/L Normal 96-108 [facility] Comment on above: Performed By: #### L 900.0098, L504.2610, L100.0100, L500.4050 ####[facility] [address] [place], [address] CO2 [Moles/Vol] 23.8 mmol/L Normal 22.0-29.0 [facility] Comment on above: Performed By: #### L 900.0098, L504.2610, L100.0100, L500.4050 ####[facility] [address] [place], [address] Creatinine [Mass/Vol] 0.8 mg/dL Normal 0.6-1.0 [facility] Comment on above: Performed By: #### L 900.0098, L504.2610, L100.0100, L500.4050 ####[facility] [address] [place], [address] ECRCL 52.08 ml/min Normal [facility] Comment on above: Performed By: #### L 900.0098, L504.2610, L100.0100, L500.4050 ####[facility] [address] [place], [address] GFR/1.73 sq M.predicted among non-blacks MDRD (S/P/Bld) [Vol rate/Area] 74 mL/min/{1.73_m2} Normal >60 [facility] Comment on above: Result Comment: mL/m in/1.73m2 CKD-EPI Creatinine Equation (2020) Performed By: #### L 900.0098, L504.2610, L100.0100, L500.4050 ####[facility] [address] [place], [address] Globulin (S) [Mass/Vol] 2.4 g/dL Normal 2.2-4.2 [facility] Comment on above: Performed By: #### L 900.0098, L504.2610, L100.0100, L500.4050 ####[facility] [address] [place], [address] Glucose [Mass/Vol] 93 mg/dL Normal 70-99 [facility] Comment on above: Performed By: #### L 900.0098, L504.2610, L100.0100, L500.4050 ####[facility] [address] [place], [address] Potassium [Moles/Vol] 4.7 mmol/L Normal 3.3-5.1 [facility] Comment on above: Performed By: #### L 900.0098, L504.2610, L100.0100, L500.4050 ####[facility] [address] [place], [address] Sodium [Moles/Vol] 138 mmol/L Normal 133-145 [facility] Comment on above: Performed By: #### L 900.0098, L504.2610, L100.0100, L500.4050 ####[facility] [address] [place], [address] T PROT 6.3 g/dL Normal 5.9-8.4 [facility] Comment on above: Performed By: #### L 900.0098, L504.2610, L100.0100, L500.4050 ####[facility] [address] [place], [address] Urea nitrogen [Mass/Vol] 17 mg/dL Normal 4-19 [facility] Comment on above: Performed By: #### L 900.0098, L504.2610, L100.0100, L500.4050 ####[facility] [address] [place], [address] LDHon 12-10-2024 LDH 235 U/L Normal 84-246 [facility] Comment on above: Order Comment: 1 Performed By: #### L 900.0098, L504.2610, L100.0100, L500.4050 ####[facility] [address] [place], [address] NATERAon 12-10-2024 NATURA SEE SCANNED REPORT Normal [facility] Comment on above: Performed By: #### L 900.0098, L504.2610, L100.0100, L500.4050 ####[facility] [address] [place], [place], [address] Oncology Visit Reporton 11-15 Oncology Visit Report Normal [facility] CA 15-3on 11-27-2024 CA 15-3 33.5 U/mL Abnormal 0.0-25.0 [facility] Comment on above: Result Comment: [employer] Electrochemiluminescence Immunoassay(ECLIA)Values obtained with different assay methods or kits cannotbe used interchangeably. Results cannot be interpreted asabsolute evidence of the presence or absence of malignantdisease.Performed at: [facility] [address] [id number] Director: Trev Joy PhD, Phone: [phone] Performed By: #### L 500.4050, L100.0100, L3100.5030 ####[facility] [address] [place], [place], [id number] Chest AND Abd W/ Contrast on 11-27-2024 CT Chest AND Abd W/ Contrast Normal [facility] CBC W/Diff, Automatedon 11-15 Absolute Lymph 1.89 X10 3/uL Normal 0.83-4.51 [facility] Comment on above: Performed By: #### L 500.4050, L100.0100, L3100.5030 ####[facility] [address] [place], [address] Absolute Neut 3.7 X10 3/uL Normal 2.0-7.7 [facility] Comment on above: Performed By: #### L 500.4050, L100.0100, L3100.5030 ####[facility] [address] [place], [address] Basophils/100 WBC (Bld) 1.1 % High 0-1 [facility] Comment on above: Performed By: #### L 500.4050, L100.0100, L3100.5030 ####[facility] [address] [place], [address] Eosinophils/100 WBC (Bld) 2.2 % Normal 0-5 [facility] Comment on above: Performed By: #### L 500.4050, L100.0100, L3100.5030 ####[facility] [address] [place], [address] Erythrocyte distribution width (RBC) [Ratio] 13.2 % Normal 11.6-14.6 [facility] Comment on above: Performed By: #### L 500.4050, L100.0100, L3100.5030 ####[facility] [address] [place], [address] Hematocrit (Bld) [Volume fraction] 38.3 % Normal 37-47 [facility] Comment on above: Performed By: #### L 500.4050, L100.0100, L3100.5030 ####[facility] [address] [place], [address] Hemoglobin (Bld) [Mass/Vol] 12.5 g/dL Normal 12.0-15.0 [facility] Comment on above: Performed By: #### L 500.4050, L100.0100, L3100.5030 ####[facility] [address] [place], [address] IG% 0.300 Normal 0.0-0.9 [facility] Comment on above: Result Comment: IG% - Immature Granulocytes (promyelocytes, myelocytes andmetamyelocytes) > 1% indicates that a LEFT SHIFT is Present. Performed By: #### L 500.4050, L100.0100, L3100.5030 ####[facility] [address] [place], [address] Lymphocytes/100 WBC (Bld) 29.6 % Normal 19-41 [facility] Comment on above: Performed By: #### L 500.4050, L100.0100, L3100.5030 ####[facility] [address] [place], [address] MCH (RBC) [Entitic mass] 32.6 pg High 27.0-32.0 [facility] Comment on above: Performed By: #### L 500.4050, L100.0100, L3100.5030 ####[facility] [address] [place], [address] MCHC (RBC) [Mass/Vol] 32.6 g/dL Normal 32-36 [facility] Comment on above: Performed By: #### L 500.4050, L100.0100, L3100.5030 ####[facility] [address] [place], [address] MCV (RBC) [Entitic vol] 100.0 fL High 81-99 [facility] Comment on above: Performed By: #### L 500.4050, L100.0100, L3100.5030 ####[facility] [address] [place], [address] Monocytes/100 WBC (Bld) 8.3 % Normal 0-10 [facility] Comment on above: Performed By: #### L 500.4050, L100.0100, L3100.5030 ####[facility] [address] [place], [address] Neutrophils/100 WBC (Bld) 58.5 % Normal 47-70 [facility] Comment on above: Performed By: #### L 500.4050, L100.0100, L3100.5030 ####[facility] [address] [place], [address] Nucleated RBC (Bld) [#/Vol] 0 10*3/uL Normal 0-5 [facility] Comment on above: Performed By: #### L 500.4050, L100.0100, L3100.5030 ####[facility] [address] [place], [address] Platelet mean volume (Bld) [Entitic vol] 8.5 fL Normal 6.2-12.0 [facility] Comment on above: Performed By: #### L 500.4050, L100.0100, L3100.5030 ####[facility] [address] [place], [address] Platelets (Bld) [#/Vol] 163 10*3/uL Normal 150-450 [facility] Comment on above: Performed By: #### L 500.4050, L100.0100, L3100.5030 ####[facility] [address] [place], [address] RBC (Bld) [#/Vol] 3.83 10*6/uL Low 4.2-5.4 [facility] Comment on above: Performed By: #### L 500.4050, L100.0100, L3100.5030 ####[facility] [address] [place], [address] RDW SD 48.6 fl High 35.1-43.9 [facility] Comment on above: Performed By: #### L 500.4050, L100.0100, L3100.5030 ####[facility] [address] [place], [address] WBC (Bld) [#/Vol] 6.4 10*3/uL Normal 4.4-11.0 [facility] Comment on above: Performed By: #### L 500.4050, L100.0100, L3100.5030 ####[facility] [address] [place], [address] Comprehensive Metabolic Prof ilon 11-26-2024 Albumin [Mass/Vol] 3.6 g/dL Normal 3.2-5.0 [facility] Comment on above: Performed By: #### L 500.4050, L100.0100, L3100.5030 ####[facility] [address] [place], [address] Albumin/Globulin [Mass ratio] 1.1 {ratio} Normal 0.9-2.4 [facility] Comment on above: Performed By: #### L 500.4050, L100.0100, L3100.5030 ####[facility] [address] [place], [address] ALK P 32 U/L Low 45-117 [facility] Comment on above: Performed By: #### L 500.4050, L100.0100, L3100.5030 ####[facility] [address] [place], [address] ALT [Catalytic activity/Vol] 15 U/L Normal 13-56 [facility] Comment on above: Performed By: #### L 500.4050, L100.0100, L3100.5030 ####[facility] [address] [place], [address] AST [Catalytic activity/Vol] 15 U/L Normal 15-37 [facility] Comment on above: Performed By: #### L 500.4050, L100.0100, L3100.5030 ####[facility] [address] [place], [address] Bilirubin [Mass/Vol] 0.60 mg/dL Normal 0.20-1.00 [facility] Comment on above: Result Comment: For patients on eltrombopag therapy, use of Dimension [place] TBIL is not recommended. Performed By: #### L 500.4050, L100.0100, L3100.5030 ####[facility] [address] [place], [address] BUN/CRE 27.3 RATIO High 10-20 [facility] Comment on above: Performed By: #### L 500.4050, L100.0100, L3100.5030 ####[facility] [address] [place], [address] CA,Total 8.7 mg/dL Normal 8.5-10.1 [facility] Comment on above: Performed By: #### L 500.4050, L100.0100, L3100.5030 ####[facility] [address] [place], [address] Chloride [Moles/Vol] 107 mmol/L Normal 98-107 [facility] Comment on above: Performed By: #### L 500.4050, L100.0100, L3100.5030 ####[facility] [address] [place], [address] CO2 [Moles/Vol] 25.0 mmol/L Normal 21.0-32.0 [facility] Comment on above: Performed By: #### L 500.4050, L100.0100, L3100.5030 ####[facility] [address] [place], [address] Creatinine [Mass/Vol] 0.84 mg/dL Normal 0.55-1.02 [facility] Comment on above: Result Comment: The validity of the calculated GFR GFRAA in patients over70 years has not been determined. Clinical correlation isessential. Performed By: #### L 500.4050, L100.0100, L3100.5030 ####[facility] [address] [place], [address] ECRCL 49.48 ml/min Normal [facility] Comment on above: Performed By: #### L 500.4050, L100.0100, L3100.5030 ####[facility] [address] [place], [address] EST GFR - AA 83 mL/min Normal >60 [facility] Comment on above: Result Comment: Afri can Martiniquais GFR Calc Performed By: #### L 500.4050, L100.0100, L3100.5030 ####[facility] [address] [place], [address] GAP 7 Normal 5-15 [facility] Comment on above: Performed By: #### L 500.4050, L100.0100, L3100.5030 ####[facility] [address] [place], [address] GFR/1.73 sq M.predicted among non-blacks MDRD (S/P/Bld) [Vol rate/Area] 69 mL/min/{1.73_m2} Normal >60 [facility] Comment on above: Result Comment: Non- GFR Calc Performed By: #### L 500.4050, L100.0100, L3100.5030 ####[facility] [address] [place], [address] Globulin (S) [Mass/Vol] 3.2 g/dL Normal 2.2-4.2 [facility] Comment on above: Performed By: #### L 500.4050, L100.0100, L3100.5030 ####[facility] [address] [place], [address] Glucose [Mass/Vol] 100 mg/dL Normal 74-106 [facility] Comment on above: Result Comment: Fast ing Glucose result from 100 to 125 mg/dLsuggests IMPAIRED HOMEOSTASIS per A.D.A. criteria. Performed By: #### L 500.4050, L100.0100, L3100.5030 ####[facility] [address] [place], [address] Potassium [Moles/Vol] 4.2 mmol/L Normal 3.5-5.1 [facility] Comment on above: Performed By: #### L 500.4050, L100.0100, L3100.5030 ####[facility] [address] [place], [address] Sodium [Moles/Vol] 139 mmol/L Normal 136-145 [facility] Comment on above: Performed By: #### L 500.4050, L100.0100, L3100.5030 ####[facility] [address] [place], [address] T PROT 6.8 g/dL Normal 6.4-8.2 [facility] Comment on above: Performed By: #### L 500.4050, L100.0100, L3100.5030 ####[facility] [address] [place], [address] Urea nitrogen [Mass/Vol] 23 mg/dL High 7-18 [facility] Comment on above: Performed By: #### L 500.4050, L100.0100, L3100.5030 ####[facility] [address] [place], [address] Oncology Visit Reporton 11-15 Oncology Visit Report Normal [facility] Oncology Visit Reporton 09-14 Oncology Visit Report Normal [facility] CA 15-3on 09-19-2024 CA 15-3 31.2 U/mL Abnormal 0.0-25.0 [facility] Comment on above: Result Comment: [employer] Electrochemiluminescence Immunoassay(ECLIA)Values obtained with different assay methods or kits cannotbe used interchangeably. Results cannot be interpreted asabsolute evidence of the presence or absence of malignantdisease.Performed at: [address] [id number] Director: Trev Joy PhD, Phone: [phone] Performed By: #### L 3100.2300, L3100.5000, L3100.5030, L3100.5040 ####[facility] [address] [place], [address] CA 27.29on 09-19-2024 CA 27.29 30.5 U/mL Normal 0.0-38.6 [facility] Comment on above: Result Comment: [facility] [employer] Immunochemiluminometric Methodology (ICMA)Values obtained with different assay methods or kits cannotbe used interchangeably. Results cannot be interpreted asabsolute evidence of the presence or absence of malignantdisease. Performed By: #### L 3100.2300, L3100.5000, L3100.5030, L3100.5040 ####[facility] [address] [place], [address] Cancer Antigen 125on 024 CA 125 24.2 U/mL Normal 0.0-38.1 [facility] Comment on above: Result Comment: [employer] Electrochemiluminescence Immunoassay(ECLIA)Values obtained with different assay methods or kits cannotbe used interchangeably. Results cannot be interpreted asabsolute evidence of the presence or absence of malignantdisease. Performed By: #### L 3100.2300, L3100.5000, L3100.5030, L3100.5040 ####[facility] [address] [place], [address] Carcinoembryonic Antigenon 1 11-20-2023 CEA 2.8 ng/mL Normal 0.0-4.7 [facility] Comment on above: Result Comment: Nons mokers <3.9 Smokers <5.6[employer] Electrochemiluminescence Immunoassay(ECLIA)Values obtained with different assay methods or kitscannot be used interchangeably. Results cannot beinterpreted as absolute evidence of the presence orabsence of malignant disease. Performed By: #### L 3100.2300, L3100.5000, L3100.5030, L3100.5040 ####[facility] [address] [place], [address] Cardiology Visit Reporton Cardiology Visit Report Normal [facility] Oncology Visit Reporton 08-15 Oncology Visit Report Normal [facility] CA 15-3on 08-22-2024 CA 15-3 29.8 U/mL Abnormal 0.0-25.0 [facility] Comment on above: Result Comment: [employer] Electrochemiluminescence Immunoassay(ECLIA)Values obtained with different assay methods or kits cannotbe used interchangeably. Results cannot be interpreted asabsolute evidence of the presence or absence of malignantdisease.Performed at: [employer] [id number] Director: Trev Joy PhD, Phone: [phone] Performed By: #### L 504.2610, L900.0098, L500.4050, L100.0100, L3100.5030 ####[facility] [address] [place], [address] CBC W/Diff, Automatedon Absolute Lymph 1.49 X10 3/uL Normal 0.83-4.51 [facility] Comment on above: Performed By: #### L 504.2610, L900.0098, L500.4050, L100.0100, L3100.5030 ####[facility] [address] [place], [address] Absolute Neut 3.8 X10 3/uL Normal 2.0-7.7 [facility] Comment on above: Performed By: #### L 504.2610, L900.0098, L500.4050, L100.0100, L3100.5030 ####[facility] [address] [place], [address] Basophils/100 WBC (Bld) 0.8 % Normal 0-1 [facility] Comment on above: Performed By: #### L 504.2610, L900.0098, L500.4050, L100.0100, L3100.5030 ####[facility] [address] [place], [address] Eosinophils/100 WBC (Bld) 2.0 % Normal 0-5 [facility] Comment on above: Performed By: #### L 504.2610, L900.0098, L500.4050, L100.0100, L3100.5030 ####[facility] [address] [place], [address] Erythrocyte distribution width (RBC) [Ratio] 13.4 % Normal 11.6-14.6 [facility] Comment on above: Performed By: #### L 504.2610, L900.0098, L500.4050, L100.0100, L3100.5030 ####[facility] [address] [place], [address] Hematocrit (Bld) [Volume fraction] 38.3 % Normal 37-47 [facility] Comment on above: Performed By: #### L 504.2610, L900.0098, L500.4050, L100.0100, L3100.5030 ####[facility] [address] [place], [address] Hemoglobin (Bld) [Mass/Vol] 12.3 g/dL Normal 12.0-15.0 [facility] Comment on above: Performed By: #### L 504.2610, L900.0098, L500.4050, L100.0100, L3100.5030 ####[facility] [address] [place], [address] IG% 0.300 Normal 0.0-0.9 [facility] Comment on above: Result Comment: IG% - Immature Granulocytes (promyelocytes, myelocytes andmetamyelocytes) > 1% indicates that a LEFT SHIFT is Present. Performed By: #### L 504.2610, L900.0098, L500.4050, L100.0100, L3100.5030 ####[facility] [address] [place], [address] Lymphocytes/100 WBC (Bld) 24.9 % Normal 19-41 [facility] Comment on above: Performed By: #### L 504.2610, L900.0098, L500.4050, L100.0100, L3100.5030 ####[facility] [address] [place], [address] MCH (RBC) [Entitic mass] 32.1 pg High 27.0-32.0 [facility] Comment on above: Performed By: #### L 504.2610, L900.0098, L500.4050, L100.0100, L3100.5030 ####[facility] [address] [place], [address] MCHC (RBC) [Mass/Vol] 32.1 g/dL Normal 32-36 [facility] Comment on above: Performed By: #### L 504.2610, L900.0098, L500.4050, L100.0100, L3100.5030 ####[facility] [address] [place], [address] MCV (RBC) [Entitic vol] 100.0 fL High 81-99 [facility] Comment on above: Performed By: #### L 504.2610, L900.0098, L500.4050, L100.0100, L3100.5030 ####[facility] [address] [place], [address] Monocytes/100 WBC (Bld) 7.8 % Normal 0-10 [facility] Comment on above: Performed By: #### L 504.2610, L900.0098, L500.4050, L100.0100, L3100.5030 ####[facility] [address] [place], [address] Neutrophils/100 WBC (Bld) 64.2 % Normal 47-70 [facility] Comment on above: Performed By: #### L 504.2610, L900.0098, L500.4050, L100.0100, L3100.5030 ####[facility] [address] [place], [address] Nucleated RBC (Bld) [#/Vol] 0 10*3/uL Normal 0-5 [facility] Comment on above: Performed By: #### L 504.2610, L900.0098, L500.4050, L100.0100, L3100.5030 ####[facility] [address] [place], [address] Platelet mean volume (Bld) [Entitic vol] 8.7 fL Normal 6.2-12.0 [facility] Comment on above: Performed By: #### L 504.2610, L900.0098, L500.4050, L100.0100, L3100.5030 ####[facility] [address] [place], [address] Platelets (Bld) [#/Vol] 174 10*3/uL Normal 150-450 [facility] Comment on above: Performed By: #### L 504.2610, L900.0098, L500.4050, L100.0100, L3100.5030 ####[facility] [address] [place], [address] RBC (Bld) [#/Vol] 3.83 10*6/uL Low 4.2-5.4 [facility] Comment on above: Performed By: #### L 504.2610, L900.0098, L500.4050, L100.0100, L3100.5030 ####[facility] [address] [place], [address] RDW SD 49.3 fl High 35.1-43.9 [facility] Comment on above: Performed By: #### L 504.2610, L900.0098, L500.4050, L100.0100, L3100.5030 ####[facility] [address] [place], [address] WBC (Bld) [#/Vol] 6.0 10*3/uL Normal 4.4-11.0 [facility] Comment on above: Performed By: #### L 504.2610, L900.0098, L500.4050, L100.0100, L3100.5030 ####[facility] [address] [place], [address] Comprehensive Metabolic Prof ilon 08-21-2024 Albumin [Mass/Vol] 3.4 g/dL Normal 3.2-5.0 [facility] Comment on above: Order Comment: 1 Performed By: #### L 504.2610, L900.0098, L500.4050, L100.0100, L3100.5030 ####[facility] [address] [place], [address] Albumin/Globulin [Mass ratio] 1.1 {ratio} Normal 0.9-2.4 [facility] Comment on above: Order Comment: 1 Performed By: #### L 504.2610, L900.0098, L500.4050, L100.0100, L3100.5030 ####[facility] [address] [place], [address] ALK P 35 U/L Low 45-117 [facility] Comment on above: Order Comment: 1 Performed By: #### L 504.2610, L900.0098, L500.4050, L100.0100, L3100.5030 ####[facility] [address] [place], [address] ALT [Catalytic activity/Vol] 14 U/L Normal 13-56 [facility] Comment on above: Order Comment: 1 Performed By: #### L 504.2610, L900.0098, L500.4050, L100.0100, L3100.5030 ####[facility] [address] [place], [address] AST [Catalytic activity/Vol] 15 U/L Normal 15-37 [facility] Comment on above: Order Comment: 1 Performed By: #### L 504.2610, L900.0098, L500.4050, L100.0100, L3100.5030 ####[facility] [address] [place], [address] Bilirubin [Mass/Vol] 0.50 mg/dL Normal 0.20-1.00 [facility] Comment on above: Order Comment: 1 Result Comment: For patients on eltrombopag therapy, use of Dimension [place] TBIL is not recommended. Performed By: #### L 504.2610, L900.0098, L500.4050, L100.0100, L3100.5030 ####[facility] [address] [place], [address] BUN/CRE 27.0 RATIO High 10-20 [facility] Comment on above: Order Comment: 1 Performed By: #### L 504.2610, L900.0098, L500.4050, L100.0100, L3100.5030 ####[facility] [address] [place], [address] CA,Total 8.9 mg/dL Normal 8.5-10.1 [facility] Comment on above: Order Comment: 1 Performed By: #### L 504.2610, L900.0098, L500.4050, L100.0100, L3100.5030 ####[facility] [address] [place], [address] Chloride [Moles/Vol] 109 mmol/L High 98-107 [facility] Comment on above: Order Comment: 1 Performed By: #### L 504.2610, L900.0098, L500.4050, L100.0100, L3100.5030 ####[facility] [address] [place], [address] CO2 [Moles/Vol] 26.0 mmol/L Normal 21.0-32.0 [facility] Comment on above: Order Comment: 1 Performed By: #### L 504.2610, L900.0098, L500.4050, L100.0100, L3100.5030 ####[facility] [address] [place], [address] Creatinine [Mass/Vol] 1.00 mg/dL Normal 0.55-1.02 [facility] Comment on above: Order Comment: 1 Result Comment: The validity of the calculated GFR GFRAA in patients over70 years has not been determined. Clinical correlation isessential. Performed By: #### L 504.2610, L900.0098, L500.4050, L100.0100, L3100.5030 ####[facility] [address] [place], [address] ECRCL 41.89 ml/min Normal [facility] Comment on above: Order Comment: 1 Performed By: #### L 504.2610, L900.0098, L500.4050, L100.0100, L3100.5030 ####[facility] [address] [place], [address] EST GFR - AA 68 mL/min Normal >60 [facility] Comment on above: Order Comment: 1 Result Comment: Afri can Martiniquais GFR Calc Performed By: #### L 504.2610, L900.0098, L500.4050, L100.0100, L3100.5030 ####[facility] [address] [place], [address] GAP 4 Low 5-15 [facility] Comment on above: Order Comment: 1 Performed By: #### L 504.2610, L900.0098, L500.4050, L100.0100, L3100.5030 ####[facility] [address] [place], [address] GFR/1.73 sq M.predicted among non-blacks MDRD (S/P/Bld) [Vol rate/Area] 57 mL/min/{1.73_m2} Low >60 [facility] Comment on above: Order Comment: 1 Result Comment: Non- GFR Calc Performed By: #### L 504.2610, L900.0098, L500.4050, L100.0100, L3100.5030 ####[facility] [address] [place], [address] Globulin (S) [Mass/Vol] 3.2 g/dL Normal 2.2-4.2 [facility] Comment on above: Order Comment: 1 Performed By: #### L 504.2610, L900.0098, L500.4050, L100.0100, L3100.5030 ####[facility] [address] [place], [address] Glucose [Mass/Vol] 84 mg/dL Normal 74-106 [facility] Comment on above: Order Comment: 1 Performed By: #### L 504.2610, L900.0098, L500.4050, L100.0100, L3100.5030 ####[facility] [address] [place], [address] Potassium [Moles/Vol] 4.1 mmol/L Normal 3.5-5.1 [facility] Comment on above: Order Comment: 1 Performed By: #### L 504.2610, L900.0098, L500.4050, L100.0100, L3100.5030 ####[facility] [address] [place], [address] Sodium [Moles/Vol] 138 mmol/L Normal 136-145 [facility] Comment on above: Order Comment: 1 Performed By: #### L 504.2610, L900.0098, L500.4050, L100.0100, L3100.5030 ####[facility] [address] [place], [address] T PROT 6.6 g/dL Normal 6.4-8.2 [facility] Comment on above: Order Comment: 1 Performed By: #### L 504.2610, L900.0098, L500.4050, L100.0100, L3100.5030 ####[facility] [address] [place], [address] Urea nitrogen [Mass/Vol] 27 mg/dL High 7-18 [facility] Comment on above: Order Comment: 1 Performed By: #### L 504.2610, L900.0098, L500.4050, L100.0100, L3100.5030 ####[facility] [address] [place], [address] LDHon 08-21-2024 LDH 190 U/L Normal 84-246 [facility] Comment on above: Order Comment: 1 Performed By: #### L 504.2610, L900.0098, L500.4050, L100.0100, L3100.5030 ####[facility] [address] [place], [address] NATERAon 08-21-2024 NATURA SEE SCANNED REPORT Normal [facility] Comment on above: Performed By: #### L 504.2610, L900.0098, L500.4050, L100.0100, L3100.5030 ####[facility] [address] [place], [address] Radiation Oncology Visiton 1 10-21-2023 Radiation Oncology Visit Normal [facility] Oncology Visit Reporton 06-15 Oncology Visit Report Normal [facility] CA 15-3on 06-20-2024 CA 15-3 21.7 U/mL Normal 0.0-25.0 [facility] Comment on above: Result Comment: [employer] Electrochemiluminescence Immunoassay(ECLIA)Values obtained with different assay methods or kits cannotbe used interchangeably. Results cannot be interpreted asabsolute evidence of the presence or absence of malignantdisease.Performed at: [employer] [id number] Director: Trev Joy PhD, Phone: [phone] Performed By: #### L 3100.5040, L504.2610, L500.4050, L3100.5030, L100.0100 ####[facility] [address] [place], [place], [address]) CA 27.29on 06-20-2024 CA 27.29 22.1 U/mL Normal 0.0-38.6 [facility] Comment on above: Result Comment: [employer] Immunochemiluminometric Methodology (ICMA)Values obtained with different assay methods or kits cannotbe used interchangeably. Results cannot be interpreted asabsolute evidence of the presence or absence of malignantdisease. Performed By: #### L 3100.5040, L504.2610, L500.4050, L3100.5030, L100.0100 ####[facility] [address] [place], [place], [address] CBC W/Diff, Automatedon Absolute Lymph 1.39 X10 3/uL Normal 0.83-4.51 [facility] Comment on above: Performed By: #### L 3100.5040, L504.2610, L500.4050, L3100.5030, L100.0100 ####[facility] [address] [place], [place], [address]) Absolute Neut 3.4 X10 3/uL Normal 2.0-7.7 [facility] Comment on above: Performed By: #### L 3100.5040, L504.2610, L500.4050, L3100.5030, L100.0100 ####[facility] [address] [place], [address] Basophils/100 WBC (Bld) 0.9 % Normal 0-1 [facility] Comment on above: Performed By: #### L 3100.5040, L504.2610, L500.4050, L3100.5030, L100.0100 ####[facility] [address] [place], [address] Eosinophils/100 WBC (Bld) 2.2 % Normal 0-5 [facility] Comment on above: Performed By: #### L 3100.5040, L504.2610, L500.4050, L3100.5030, L100.0100 ####[facility] [address] [place], [address] Erythrocyte distribution width (RBC) [Ratio] 13.2 % Normal 11.6-14.6 [facility] Comment on above: Performed By: #### L 3100.5040, L504.2610, L500.4050, L3100.5030, L100.0100 ####[facility] [address] [place], [address] Hematocrit (Bld) [Volume fraction] 37.1 % Normal 37-47 [facility] Comment on above: Performed By: #### L 3100.5040, L504.2610, L500.4050, L3100.5030, L100.0100 ####[facility] [address] [place], [address] Hemoglobin (Bld) [Mass/Vol] 11.6 g/dL Low 12.0-15.0 [facility] Comment on above: Performed By: #### L 3100.5040, L504.2610, L500.4050, L3100.5030, L100.0100 ####[facility] [address] [place], [address] IG% 0.500 Normal 0.0-0.9 [facility] Comment on above: Result Comment: IG% - Immature Granulocytes (promyelocytes, myelocytes andmetamyelocytes) > 1% indicates that a LEFT SHIFT is Present. Performed By: #### L 3100.5040, L504.2610, L500.4050, L3100.5030, L100.0100 ####[facility] [address] [place], [address] Lymphocytes/100 WBC (Bld) 25.0 % Normal 19-41 [facility] Comment on above: Performed By: #### L 3100.5040, L504.2610, L500.4050, L3100.5030, L100.0100 ####[facility] [address] [place], [address] MCH (RBC) [Entitic mass] 31.4 pg Normal 27.0-32.0 [facility] Comment on above: Performed By: #### L 3100.5040, L504.2610, L500.4050, L3100.5030, L100.0100 ####[facility] [address] [place], [address] MCHC (RBC) [Mass/Vol] 31.3 g/dL Low 32-36 [facility] Comment on above: Performed By: #### L 3100.5040, L504.2610, L500.4050, L3100.5030, L100.0100 ####[facility] [address] [place], [address] MCV (RBC) [Entitic vol] 100.5 fL High 81-99 [facility] Comment on above: Performed By: #### L 3100.5040, L504.2610, L500.4050, L3100.5030, L100.0100 ####[facility] [address] [place], [address] Monocytes/100 WBC (Bld) 9.4 % Normal 0-10 [facility] Comment on above: Performed By: #### L 3100.5040, L504.2610, L500.4050, L3100.5030, L100.0100 ####[facility] [address] [place], [address] Neutrophils/100 WBC (Bld) 62.0 % Normal 47-70 [facility] Comment on above: Performed By: #### L 3100.5040, L504.2610, L500.4050, L3100.5030, L100.0100 ####[facility] [address] [place], [address] Nucleated RBC (Bld) [#/Vol] 0 10*3/uL Normal 0-5 [facility] Comment on above: Performed By: #### L 3100.5040, L504.2610, L500.4050, L3100.5030, L100.0100 ####[facility] [address] [place], [address] Platelet mean volume (Bld) [Entitic vol] 8.5 fL Normal 6.2-12.0 [facility] Comment on above: Performed By: #### L 3100.5040, L504.2610, L500.4050, L3100.5030, L100.0100 ####[facility] [address] [place], [address] Platelets (Bld) [#/Vol] 170 10*3/uL Normal 150-450 [facility] Comment on above: Performed By: #### L 3100.5040, L504.2610, L500.4050, L3100.5030, L100.0100 ####[facility] [address] [place], [address] RBC (Bld) [#/Vol] 3.69 10*6/uL Low 4.2-5.4 [facility] Comment on above: Performed By: #### L 3100.5040, L504.2610, L500.4050, L3100.5030, L100.0100 ####[facility] [address] [place], [address] RDW SD 48.9 fl High 35.1-43.9 [facility] Comment on above: Performed By: #### L 3100.5040, L504.2610, L500.4050, L3100.5030, L100.0100 ####[facility] [address] [place], [address] WBC (Bld) [#/Vol] 5.6 10*3/uL Normal 4.4-11.0 [facility] Comment on above: Performed By: #### L 3100.5040, L504.2610, L500.4050, L3100.5030, L100.0100 ####[facility] [address] [place], [address] Comprehensive Metabolic Prof [facility] 06-19-2024 Albumin [Mass/Vol] 3.0 g/dL Low 3.2-5.0 [facility] Comment on above: Order Comment: 1 Performed By: #### L 3100.5040, L504.2610, L500.4050, L3100.5030, L100.0100 ####[facility] [address] [place], [address] Albumin/Globulin [Mass ratio] 1.0 {ratio} Normal 0.9-2.4 [facility] Comment on above: Order Comment: 1 Performed By: #### L 3100.5040, L504.2610, L500.4050, L3100.5030, L100.0100 ####[facility] [address] [place], [address] ALK P 40 U/L Low 45-117 [facility] Comment on above: Order Comment: 1 Performed By: #### L 3100.5040, L504.2610, L500.4050, L3100.5030, L100.0100 ####[facility] [address] [place], [address] ALT [Catalytic activity/Vol] 18 U/L Normal 13-56 [facility] Comment on above: Order Comment: 1 Performed By: #### L 3100.5040, L504.2610, L500.4050, L3100.5030, L100.0100 ####[facility] [address] [place], [address] AST [Catalytic activity/Vol] 13 U/L Low 15-37 [facility] Comment on above: Order Comment: 1 Performed By: #### L 3100.5040, L504.2610, L500.4050, L3100.5030, L100.0100 ####[facility] [address] [place], [address] Bilirubin [Mass/Vol] 0.40 mg/dL Normal 0.20-1.00 [facility] Comment on above: Order Comment: 1 Result Comment: For patients on eltrombopag therapy, use of Dimension [place] TBIL is not recommended. Performed By: #### L 3100.5040, L504.2610, L500.4050, L3100.5030, L100.0100 ####[facility] [address] [place], [address] BUN/CRE 22.1 RATIO High 10-20 [facility] Comment on above: Order Comment: 1 Performed By: #### L 3100.5040, L504.2610, L500.4050, L3100.5030, L100.0100 ####[facility] [address] [place], [address] CA,Total 8.4 mg/dL Low 8.5-10.1 [facility] Comment on above: Order Comment: 1 Performed By: #### L 3100.5040, L504.2610, L500.4050, L3100.5030, L100.0100 ####[facility] [address] [place], [address] Chloride [Moles/Vol] 110 mmol/L High 98-107 [facility] Comment on above: Order Comment: 1 Performed By: #### L 3100.5040, L504.2610, L500.4050, L3100.5030, L100.0100 ####[facility] [address] [place], [address] CO2 [Moles/Vol] 27.0 mmol/L Normal 21.0-32.0 [facility] Comment on above: Order Comment: 1 Performed By: #### L 3100.5040, L504.2610, L500.4050, L3100.5030, L100.0100 ####[facility] [address] [place], [address] Creatinine [Mass/Vol] 0.86 mg/dL Normal 0.55-1.02 [facility] Comment on above: Order Comment: 1 Result Comment: The validity of the calculated GFR GFRAA in patients over70 years has not been determined. Clinical correlation isessential. Performed By: #### L 3100.5040, L504.2610, L500.4050, L3100.5030, L100.0100 ####[facility] [address] [place], [address] ECRCL 49.45 ml/min Normal [facility] Comment on above: Order Comment: 1 Performed By: #### L 3100.5040, L504.2610, L500.4050, L3100.5030, L100.0100 ####[facility] [address] [place], [address] EST GFR - AA 82 mL/min Normal >60 [facility] Comment on above: Order Comment: 1 Result Comment: Afri can Martiniquais GFR Calc Performed By: #### L 3100.5040, L504.2610, L500.4050, L3100.5030, L100.0100 ####[facility] [address] [place], [address] GAP 2 Low 5-15 [facility] Comment on above: Order Comment: 1 Performed By: #### L 3100.5040, L504.2610, L500.4050, L3100.5030, L100.0100 ####[facility] [address] [place], [address] GFR/1.73 sq M.predicted among non-blacks MDRD (S/P/Bld) [Vol rate/Area] 68 mL/min/{1.73_m2} Normal >60 [facility] Comment on above: Order Comment: 1 Result Comment: Non- GFR Calc Performed By: #### L 3100.5040, L504.2610, L500.4050, L3100.5030, L100.0100 ####[facility] [address] [place], [address] Globulin (S) [Mass/Vol] 3.1 g/dL Normal 2.2-4.2 [facility] Comment on above: Order Comment: 1 Performed By: #### L 3100.5040, L504.2610, L500.4050, L3100.5030, L100.0100 ####[facility] [address] [place], [address] Glucose [Mass/Vol] 85 mg/dL Normal 74-106 [facility] Comment on above: Order Comment: 1 Performed By: #### L 3100.5040, L504.2610, L500.4050, L3100.5030, L100.0100 ####[facility] [address] [place], [address] Potassium [Moles/Vol] 4.4 mmol/L Normal 3.5-5.1 [facility] Comment on above: Order Comment: 1 Performed By: #### L 3100.5040, L504.2610, L500.4050, L3100.5030, L100.0100 ####[facility] [address] [place], [address] Sodium [Moles/Vol] 139 mmol/L Normal 136-145 [facility] Comment on above: Order Comment: 1 Performed By: #### L 3100.5040, L504.2610, L500.4050, L3100.5030, L100.0100 ####[facility] [address] [place], [address] T PROT 6.1 g/dL Low 6.4-8.2 [facility] Comment on above: Order Comment: 1 Performed By: #### L 3100.5040, L504.2610, L500.4050, L3100.5030, L100.0100 ####[facility] [address] [place], [address] Urea nitrogen [Mass/Vol] 19 mg/dL High 7-18 [facility] Comment on above: Order Comment: 1 Performed By: #### L 3100.5040, L504.2610, L500.4050, L3100.5030, L100.0100 ####[facility] [address] [place], [address] LDHon 06-19-2024 LDH 205 U/L Normal 84-246 [facility] Comment on above: Order Comment: 1 Performed By: #### L 3100.5040, L504.2610, L500.4050, L3100.5030, L100.0100 ####[facility] [address] [place], [address] Blood manual differential co mment interpretation (narrative result)Ordered By: Alex Love on 11-06-2023 Manual differential comment Nba (Bld) [Interp] SCANNED [facility] Blood platelet adequacy dete ction by light microscopyOrdered By: Alex Love on 11-06-2023 Platelets LM Ql (Bld) MOD DEC ADEQ [facility] Laboratory - Hematology and Cell countsOrdered By: Alex Love on 11-06-2023 Anisocytosis Ql (Bld) 2+ [facility] Macrocytes detectionOrdered By: Alex Love on 11-06-2023 Macrocytes Ql (Bld) 1+ [facility] No Panel InformationOrdered By: Alex Love on 11-06-2023 Reactive Lymphocytes 1+ [facility] 1+ [facility] Absolute lymphocyte countOrd ered By: Alex Love on 10-09-2023 Lymphocytes Auto (Unsp spec) [#/Vol] 1.13 10*3/uL 0.83-4.51 [facility] Basophil percentageOrdered B y: Alex Love on 10-09-2023 Basophils/100 WBC (Bld) 2.8 % 0-1 [facility] Bilirubin [Mass/Vol] 0.60 mg/dL 0.20-1.00 [facility] Comment on above: For patients on eltr ombopag therapy, use of Dimension [place] TBIL is not recommended. Chloride [Moles/Vol] 108 mmol/L 98-107 [facility] Eosinophils/100 WBC (Bld) 3.2 % 0-5 [facility] Glucose [Mass/Vol] 102 mg/dL 74-106 [facility] Comment on above: Fasting Glucose resu lt from 100 to 125 mg/dL suggests IMPAIRED HOMEOSTASIS per A.D.A. criteria. LDH [Catalytic activity/Vol] 263 U/L 84-246 [facility] Neutrophils (Bld) [#/Vol] 1.2 10*3/uL 2.0-7.7 [facility] Neutrophils/100 WBC (Bld) 40.8 % 47-70 [facility] Potassium [Moles/Vol] 4.4 mmol/L 3.5-5.1 [facility] Protein [Mass/Vol] 6.8 g/dL 6.4-8.2 [facility] Sodium [Moles/Vol] 139 mmol/L 136-145 [facility] WBC (Bld) [#/Vol] 2.8 10*3/uL 4.4-11.0 [facility] Blood erythrocytes count (nu mber/volume)Ordered By: Alex Love on 10-09-2023 RBC (Bld) [#/Vol] 2.97 10*6/uL 4.2-5.4 [facility] Blood hemoglobin measurement (mass/volume)Ordered By: Alex Love on 10-09-2023 Hemoglobin (Bld) [Mass/Vol] 11.1 g/dL 12.0-15.0 [facility] Blood lymphocytes/100 leukoc ytesOrdered By: Alex Love on 10-09-2023 Lymphocytes/100 WBC (Bld) 39.8 % 19-41 [facility] Blood manual differential co mment interpretation (narrative result)Ordered By: Alex Love on 10-09-2023 Manual differential comment Nba (Bld) [Interp] SCANNED [facility] Blood monocytes/100 leukocyt esOrdered By: Alex Love on 10-09-2023 Monocytes/100 WBC (Bld) 13.0 % 0-10 [facility] Blood platelet mean volumeOr dered By: Alex Love on 10-09-2023 Platelet mean volume (Bld) [Entitic vol] 8.7 fL 6.2-12.0 [facility] Determination of erythrocyte mean corpuscular volume (MCV)Ordered By: Alex Love on 10-09-2023 MCV (RBC) [Entitic vol] 114.5 fL 81-99 [facility] Hematocrit Auto (Bld) [Volum e fraction]Ordered By: Alex Love on 10-09-2023 Hematocrit (Bld) [Volume fraction] 34.0 % 37-47 [facility] Laboratory - Chemistry and C hemistry - challengeOrdered By: Alex Love on 10-09-2023 ALP [Catalytic activity/Vol] 68 U/L 45-117 [facility] ALT [Catalytic activity/Vol] 16 U/L 13-56 [facility] CO2 [Moles/Vol] 28.0 mmol/L 21.0-32.0 [facility] Globulin (S) [Mass/Vol] 3.5 g/dL 2.2-4.2 [facility] Urea nitrogen/Creatinine [Mass ratio] 19.7 mg/mg 10-20 [facility] Laboratory - Hematology and Cell countsOrdered By: Alex Love on 10-09-2023 Erythrocyte distribution width (RBC) [Entitic vol] 63.4 fL 35.1-43.9 [facility] Erythrocyte distribution width (RBC) [Ratio] 14.9 % 11.6-14.6 [facility] Immature granulocytes/100 WBC (Bld) 0.400 % 0.0-0.9 [facility] Comment on above: IG% - Immature Granu locytes (promyelocytes, myelocytes and metamyelocytes) > 1% indicates that a LEFT SHIFT is Present. MCH (RBC) [Entitic mass] 37.4 pg 27.0-32.0 [facility] Nucleated RBC/100 WBC (Bld) [Ratio] 0 % 0-5 [facility] MCHC Auto (RBC) [Mass/Vol]Or dered By: Alex Love on 10-09-2023 MCHC (RBC) [Mass/Vol] 32.6 g/dL 32-36 [facility] No Panel InformationOrdered By: Alex Love on 10-09-2023 Miscellaneous Test Comment MAILED SPECIMEN [facility] CA 15-3 Antigen 34.2 U/mL 0.0-25.0 [facility] Comment on above: [employer] El ectrochemiluminescence Immunoassay(ECLIA)Values obtained with different assay methods or kits cannotbe used interchangeably. Results cannot be interpreted asabsolute evidence of the presence or absence of malignantdisease.Performed at: [facility] [id number] Director: Trev Joy PhD, Phone: [phone] Estimated Creatinine Clearance Calc 35.42 ml/min [facility] Estimated GFR (MDRD) Amer 76 mL/min >60 [facility] Comment on above: GFR Calc Estimated GFR (MDRD) Non-Af Amer 63 mL/min >60 [facility] Comment on above: Non- GFR Calc Reactive Lymphocytes 1+ [facility] Platelets bldOrdered By: Torito Love on 10-09-2023 Platelets (Bld) [#/Vol] 120 10*3/uL 150-450 [facility] Serum or plasma albumin brandan urement (mass/volume)Ordered By: Alex Love on 10-09-2023 Albumin [Mass/Vol] 3.3 g/dL 3.2-5.0 [facility] Serum or plasma albumin/glob ulin mass ratioOrdered By: Alex Love on 10-09-2023 Albumin/Globulin [Mass ratio] 0.9 {ratio} 0.9-2.4 [facility] Serum or plasma calcium brandan urement (mass/volume)Ordered By: Alex Love on 10-09-2023 Calcium [Mass/Vol] 9.1 mg/dL 8.5-10.1 [facility] Serum or plasma creatinine m easurement (mass/volume)Ordered By: Alex Love on 10-09-2023 Creatinine [Mass/Vol] 0.91 mg/dL 0.55-1.02 [facility] Comment on above: The validity of the calculated GFR & GFRAA in patients over 70 years has not been determined. Clinical correlation is essential. Serum or plasma urea nitroge n measurement (mass/volume)Ordered By: Alex Love on 10-09-2023 Urea nitrogen [Mass/Vol] 18 mg/dL 7-18 [facility] Thin prep Papanicolaou smear with manual screeningOrdered By: Alex Love on 10-09-2023 Thin prep Papanicolaou smear with manual screening 14 U/L 15-37 [facility] Thin prep Papanicolaou smear with manual screening 3 5-15 [facility] Laboratory - Hematology and Cell countsOrdered By: Alex Love on 09-11-2023 Anisocytosis Ql (Bld) 2+ [facility] Macrocytes detectionOrdered By: Alex Love on 09-11-2023 Macrocytes Ql (Bld) 1+ [facility] No Panel InformationOrdered By: Alex Love on 09-11-2023 CA 27.29 40.5 U/mL 0.0-38.6 [facility] Comment on above: [employer] Immu nochemiluminometric Methodology (ICMA)Values obtained with different assay methods or kits cannotbe used interchangeably. Results cannot be interpreted asabsolute evidence of the presence or absence of malignantdisease. Review by pathologistOrdered By: Alex Love on 09-11-2023 Pathologist review Nba (Unsp spec) [Interp] Reviewed [facility] Comment on above: Previous reported re sult: Marie green Edited by: CLAYTON on 09/12/23:1526Pancytopenia.Macrocytic anemia.LeukopeniaMild Thrombocytopenia.Clinical correlation necessary.Rafi Joshi D.O. 09/12/23 AMENDED REPORT 09/12/23 1526 PATH REV previously reported as: Marie green Serum or plasma carcinoembry onic antigen measurement (mass/volume)Ordered By: Alex Love on 09-11-2023 Carcinoembryonic Ag [Mass/Vol] 2.8 ng/mL 0.0-4.7 [facility] Comment on above: Nonsmokers <3.9 Smok ers <5.6[employer] Electrochemiluminescence Immunoassay(ECLIA)Values obtained with different assay methods or kitscannot be used interchangeably. Results cannot beinterpreted as absolute evidence of the presence orabsence of malignant disease. Thin prep Papanicolaou smear with manual screeningOrdered By: Alex Love on 09-11-2023 Thin prep Papanicolaou smear with manual screening 1+ [facility] Blood polychromasia detectio n by light microscopyOrdered By: Alex Love on 06-05-2023 Polychromasia LM Ql (Bld) RARE [facility] Absolute lymphocyte countOrd ered By: Alex Love on 05-22-2023 Lymphocytes Auto (Unsp spec) [#/Vol] 1.46 10*3/uL 0.83-4.51 [facility] Basophil percentageOrdered B y: Alex Love on 05-22-2023 Basophils/100 WBC (Bld) 1.9 % 0-1 [facility] Bilirubin [Mass/Vol] 0.60 mg/dL 0.20-1.00 [facility] Comment on above: For patients on eltr ombopag therapy, use of Dimension [place] TBIL is not recommended. Chloride [Moles/Vol] 108 mmol/L 98-107 [facility] Eosinophils/100 WBC (Bld) 1.9 % 0-5 [facility] Glucose [Mass/Vol] 98 mg/dL 74-106 [facility] LDH [Catalytic activity/Vol] 206 U/L 84-246 [facility] Neutrophils (Bld) [#/Vol] 1.2 10*3/uL 2.0-7.7 [facility] Neutrophils/100 WBC (Bld) 39.1 % 47-70 [facility] Potassium [Moles/Vol] 4.5 mmol/L 3.5-5.1 [facility] Protein [Mass/Vol] 6.8 g/dL 6.4-8.2 [facility] Sodium [Moles/Vol] 138 mmol/L 136-145 [facility] WBC (Bld) [#/Vol] 3.2 10*3/uL 4.4-11.0 [facility] Blood erythrocytes count (nu mber/volume)Ordered By: Alex Love on 05-22-2023 RBC (Bld) [#/Vol] 3.52 10*6/uL 4.2-5.4 [facility] Blood hemoglobin measurement (mass/volume)Ordered By: Alex Love on 05-22-2023 Hemoglobin (Bld) [Mass/Vol] 11.2 g/dL 12.0-15.0 [facility] Blood lymphocytes/100 leukoc ytesOrdered By: Alex Love on 05-22-2023 Lymphocytes/100 WBC (Bld) 46.3 % 19-41 [facility] Blood manual differential co mment interpretation (narrative result)Ordered By: Alex Love on 05-22-2023 Manual differential comment Nba (Bld) [Interp] SCANNED [facility] Blood monocytes/100 leukocyt esOrdered By: Alex Love on 05-22-2023 Monocytes/100 WBC (Bld) 10.5 % 0-10 [facility] Blood platelet mean volumeOr dered By: Alex Love on 05-22-2023 Platelet mean volume (Bld) [Entitic vol] 9.0 fL 6.2-12.0 [facility] Determination of erythrocyte mean corpuscular volume (MCV)Ordered By: Alex Love on 05-22-2023 MCV (RBC) [Entitic vol] 101.4 fL 81-99 [facility] Hematocrit Auto (Bld) [Volum e fraction]Ordered By: Alex Nona on 05-22-2023 Hematocrit (Bld) [Volume fraction] 35.7 % 37-47 [facility] Laboratory - Chemistry and C hemistry - challengeOrdered By: Alex Nona on 05-22-2023 ALP [Catalytic activity/Vol] 88 U/L 45-117 [facility] ALT [Catalytic activity/Vol] 18 U/L 13-56 [facility] CO2 [Moles/Vol] 28.0 mmol/L 21.0-32.0 [facility] Globulin (S) [Mass/Vol] 3.5 g/dL 2.2-4.2 [facility] Urea nitrogen/Creatinine [Mass ratio] 16.3 mg/mg 10-20 [facility] Laboratory - Hematology and Cell countsOrdered By: [facility] on 05-22-2023 Erythrocyte distribution width (RBC) [Entitic vol] 53.8 fL 35.1-43.9 [facility] Erythrocyte distribution width (RBC) [Ratio] 16.6 % 11.6-14.6 [facility] Immature granulocytes/100 WBC (Bld) 0.300 % 0.0-0.9 [facility] Comment on above: IG% - Immature Granu locytes (promyelocytes, myelocytes and metamyelocytes) > 1% indicates that a LEFT SHIFT is Present. MCH (RBC) [Entitic mass] 31.8 pg 27.0-32.0 [facility] Nucleated RBC/100 WBC (Bld) [Ratio] 0 % 0-5 [facility] MCHC Auto (RBC) [Mass/Vol]Or dered By: Alex Love on 05-22-2023 MCHC (RBC) [Mass/Vol] 31.4 g/dL 32-36 [facility] No Panel InformationOrdered By: Alex Love on 05-22-2023 CA 125 Antigen 29.2 U/mL 0.0-38.1 [facility] Comment on above: [employer] El ectrochemiluminescence Immunoassay(ECLIA)Values obtained with different assay methods or kits cannotbe used interchangeably. Results cannot be interpreted asabsolute evidence of the presence or absence of malignantdisease. CA 15-3 Antigen 34.9 U/mL 0.0-25.0 [facility] Comment on above: [employer] El ectrochemiluminescence Immunoassay(ECLIA)Values obtained with different assay methods or kits cannotbe used interchangeably. Results cannot be interpreted asabsolute evidence of the presence or absence of malignantdisease.Performed at: [employer] [id number] Director: Trev Joy PhD, Phone: [phone] CA 27.29 39.9 U/mL 0.0-38.6 [facility] Comment on above: [employer] Immu nochemiluminometric Methodology (ICMA)Values obtained with different assay methods or kits cannotbe used interchangeably. Results cannot be interpreted asabsolute evidence of the presence or absence of malignantdisease. Estimated Creatinine Clearance Calc 31.51 ml/min [facility] Estimated GFR (MDRD) Amer 66 mL/min >60 [facility] Comment on above: GFR Calc Estimated GFR (MDRD) Non-Af Amer 54 mL/min >60 [facility] Comment on above: Non- GFR Calc Platelets bldOrdered By: Torito Love on 05-22-2023 Platelets (Bld) [#/Vol] 168 10*3/uL 150-450 [facility] Serum or plasma albumin brandan urement (mass/volume)Ordered By: Alex Love on 05-22-2023 Albumin [Mass/Vol] 3.3 g/dL 3.2-5.0 [facility] Serum or plasma albumin/glob ulin mass ratioOrdered By: Alex Love on 05-22-2023 Albumin/Globulin [Mass ratio] 0.9 {ratio} 0.9-2.4 [facility] Serum or plasma calcium brandan urement (mass/volume)Ordered By: Alex Love on 05-22-2023 Calcium [Mass/Vol] 8.7 mg/dL 8.5-10.1 [facility] Serum or plasma carcinoembry onic antigen measurement (mass/volume)Ordered By: Alex Love on 05-22-2023 Carcinoembryonic Ag [Mass/Vol] 3.1 ng/mL 0.0-4.7 [facility] Comment on above: Nonsmokers <3.9 Smok ers <5.6[employer] Electrochemiluminescence Immunoassay(ECLIA)Values obtained with different assay methods or kitscannot be used interchangeably. Results cannot beinterpreted as absolute evidence of the presence orabsence of malignant disease. Serum or plasma creatinine m easurement (mass/volume)Ordered By: Alex Love on 05-22-2023 Creatinine [Mass/Vol] 1.04 mg/dL 0.55-1.02 [facility] Comment on above: The validity of the calculated GFR & GFRAA in patients over 70 years has not been determined. Clinical correlation is essential. Serum or plasma urea nitroge n measurement (mass/volume)Ordered By: Alex Love on 05-22-2023 Urea nitrogen [Mass/Vol] 17 mg/dL 7-18 [facility] Thin prep Papanicolaou smear with manual screeningOrdered By: Alex Love on 05-22-2023 Thin prep Papanicolaou smear with manual screening 11 U/L 15-37 [facility] Thin prep Papanicolaou smear with manual screening 2 5-15 [facility] Basophil percentageOrdered B y: Uyen Lynn on 05-17-2023 Cholesterol [Mass/Vol] 140 mg/dL <200 [facility] Comment on above: <200 mg/dL Desirable 200-240 mg/dL Borderline >240 mg/dL High Risk Triglyceride [Mass/Vol] 69 mg/dL <199 [facility] Comment on above: The drugs N-Acetylcy steine and Metamizole may falsely depress this assay.Serum Triglycerides Reference Interval Normal <150 mg/dL Borderline high 150 - 199 mg/dL High 200 - 499 mg/dL Very High > or = 500 mg/dL Laboratory - Chemistry and C hemistry - challengeOrdered By: Uyen Lynn on 05-17-2023 Free T4 [Mass/Vol] 1.16 ng/dL 0.76-1.46 [facility] No Panel InformationOrdered By: Uyen Lynn on 05-17-2023 Free Triiodothyronine (T3) pg/dL 2.5 pg/mL 2.18-3.98 [facility] Thyroglobulin Antibody < 1.0 IU/mL 0.0-0.9 [facility] Comment on above: Thyroglobulin Antibo dy measured by Shavon CoulterMethodology Thyroglobulin Level 25.6 ng/mL 1.5-38.5 [facility] Comment on above: According to the [employer] of Clinical Biochemistry,the reference interval for Thyroglobulin (TG) should berelated to euthyroid patients and not for patients whounderwent thyroidectomy. TG reference intervals for thesepatients depend on the residual mass of the thyroid tissueleft after surgery. Establishing a post-operative baselineis recommended. The assay limit of quantitation is 0.1ng/mLThyroglobulin measured by Shavon Bixby ImmunometricAss[employer] Thyroid Stimulating Hormone (TSH) 0.34 uIU/mL 0.358-3.74 [facility] Vitamin D 25-Hydroxy 79.3 ng/mL [facility] Comment on above: Vitamin D 25(OH) Sta tus Range Deficiency <20 ng/mL (50nmol/L) Insufficiency 20 - 30 ng/mL (50 - 75 nmol/L) Sufficiency 30 - 100 ng/mL (75 - 250 nmol/L) Toxicity >100 ng/mL (>250 nmol/L) Serum or plasma cholesterol in HDL measurement (mass/volume)Ordered By: Uyen Lynn on 05-17-2023 Cholesterol in HDL [Mass/Vol] 62 mg/dL >40 [facility] Comment on above: The drugs N-Acetylcy steine and Metamizole may falsely depress this assay. Reference Range HDL <40 mg/dL Low HDL Cholesterol HDL >or= 60 mg/dL High HDL Cholesterol Serum or plasma cholesterol in VLDL measurement (mass/volume)Ordered By: Uyen Lynn on 05-17-2023 Cholesterol in VLDL [Mass/Vol] 14 mg/dL 5-40 [facility] Serum or plasma low density lipoprotein (LDL) cholesterol measurement (mass/volume)Ordered By: Uyen Lynn on 05-17-2023 Cholesterol in LDL [Mass/Vol] 64 mg/dL 0-130 [facility] Serum or plasma thyroperoxid ase antibody assay (units/volume)Ordered By: Uyen Lynn on 05-17-2023 TPO Ab Qn [IU]/mL 0-34 [facility] Comment on above: Performed at: - [address] [id number] Director: Trev Joy PhD, Phone: [phone] Whole blood hemoglobin A1c/t otal hemoglobin ratio (mass fraction)Ordered By: Uyen Lynn on 05-17-2023 HbA1c (Bld) [Mass fraction] 5.8 % 3.8-5.6 [facility] Comment on above: Normal < 5.7 % Predi abetic 5.7 - 6.4 % Diabetic >or= 6.5 % Please note range changes. Absolute lymphocyte countOrd ered By: Susanne Lopez on 05-08-2023 Lymphocytes Auto (Unsp spec) [#/Vol] 1.68 10*3/uL 0.83-4.51 [facility] Basophil percentageOrdered B y: Alex Love on 05-08-2023 Basophil percentage 3.6 mg/dL 2.5-4.9 [facility] LDH [Catalytic activity/Vol] 197 U/L 84-246 [facility] Basophil percentageOrdered B y: Susanne Lopez on 05-08-2023 Basophils/100 WBC (Bld) 1.1 % 0-1 [facility] Bilirubin [Mass/Vol] 0.70 mg/dL 0.20-1.00 [facility] Comment on above: For patients on eltr ombopag therapy, use of Dimension [place] TBIL is not recommended. Chloride [Moles/Vol] 106 mmol/L 98-107 [facility] Eosinophils/100 WBC (Bld) 2.9 % 0-5 [facility] Glucose [Mass/Vol] 97 mg/dL 74-106 [facility] Neutrophils (Bld) [#/Vol] 1.9 10*3/uL 2.0-7.7 [facility] Neutrophils/100 WBC (Bld) 49.4 % 47-70 [facility] Potassium [Moles/Vol] 4.6 mmol/L 3.5-5.1 [facility] Protein [Mass/Vol] 6.6 g/dL 6.4-8.2 [facility] Sodium [Moles/Vol] 137 mmol/L 136-145 [facility] WBC (Bld) [#/Vol] 3.8 10*3/uL 4.4-11.0 [facility] Blood erythrocytes count (nu mber/volume)Ordered By: Susanne Lopez on 05-08-2023 RBC (Bld) [#/Vol] 3.44 10*6/uL 4.2-5.4 [facility] Blood hemoglobin measurement (mass/volume)Ordered By: Susanne Lopez on 05-08-2023 Hemoglobin (Bld) [Mass/Vol] 11.2 g/dL 12.0-15.0 [facility] Blood lymphocytes/100 leukoc ytesOrdered By: Susanne Lopez on 05-08-2023 Lymphocytes/100 WBC (Bld) 44.7 % 19-41 [facility] Blood monocytes/100 leukocyt esOrdered By: Susanne Lopez on 05-08-2023 Monocytes/100 WBC (Bld) 1.1 % 0-10 [facility] Blood platelet mean volumeOr dered By: Susanne Lopez on 05-08-2023 Platelet mean volume (Bld) [Entitic vol] 8.6 fL 6.2-12.0 [facility] Determination of erythrocyte mean corpuscular volume (MCV)Ordered By: Susanne Lopez on 05-08-2023 MCV (RBC) [Entitic vol] 97.4 fL 81-99 [facility] Hematocrit Auto (Bld) [Volum e fraction]Ordered By: Susanne Lopez on 05-08-2023 Hematocrit (Bld) [Volume fraction] 33.5 % 37-47 [facility] Laboratory - Chemistry and C hemistry - challengeOrdered By: Susanne Lopez on 05-08-2023 ALP [Catalytic activity/Vol] 89 U/L 45-117 [facility] ALT [Catalytic activity/Vol] 18 U/L 13-56 [facility] CO2 [Moles/Vol] 26.0 mmol/L 21.0-32.0 [facility] Globulin (S) [Mass/Vol] 3.3 g/dL 2.2-4.2 [facility] Urea nitrogen/Creatinine [Mass ratio] 18.4 mg/mg 10-20 [facility] Laboratory - Chemistry and C hemistry - challengeOrdered By: Alex Love on 05-08-2023 Magnesium [Mass/Vol] 2.1 mg/dL 1.6-2.6 [facility] - Hematology and Cell countsOrdered By: Susanne Lopez on 05-08-2023 Erythrocyte distribution width (RBC) [Entitic vol] 46.7 fL 35.1-43.9 [facility] Erythrocyte distribution width (RBC) [Ratio] 13.8 % 11.6-14.6 [facility] Immature granulocytes/100 WBC (Bld) 0.800 % 0.0-0.9 [facility] Comment on above: IG% - Immature Granu locytes (promyelocytes, myelocytes and metamyelocytes) > 1% indicates that a LEFT SHIFT is Present. MCH (RBC) [Entitic mass] 32.6 pg 27.0-32.0 [facility] Nucleated RBC/100 WBC (Bld) [Ratio] 0 % 0-5 [facility] MCHC Auto (RBC) [Mass/Vol]Or dered By: Susanne Lopez on 05-08-2023 MCHC (RBC) [Mass/Vol] 33.4 g/dL 32-36 [facility] No Panel InformationOrdered By: Susanne Lopez on 05-08-2023 Estimated Creatinine Clearance Calc 31.81 ml/min [facility] Estimated GFR (MDRD) Amer 66 mL/min >60 [facility] Comment on above: GFR Calc Estimated GFR (MDRD) Non-Af Amer 55 mL/min >60 [facility] Comment on above: Non- GFR Calc Reactive Lymphocytes RARE [facility] No Panel InformationOrdered By: Alex Love on 05-08-2023 2.1 mg/dL 1.6-2.6 [facility] Platelets bldOrdered By: Jes Lopez on 05-08-2023 Platelets (Bld) [#/Vol] 114 10*3/uL 150-450 [facility] Serum or plasma albumin brandan urement (mass/volume)Ordered By: Susanne Lopez on 05-08-2023 Albumin [Mass/Vol] 3.3 g/dL 3.2-5.0 [facility] Serum or plasma albumin/glob ulin mass ratioOrdered By: Susanne Lopez on 05-08-2023 Albumin/Globulin [Mass ratio] 1.0 {ratio} 0.9-2.4 [facility] Serum or plasma calcium brandan urement (mass/volume)Ordered By: Susanne Lopez on 05-08-2023 Calcium [Mass/Vol] 8.7 mg/dL 8.5-10.1 [facility] Serum or plasma creatinine m easurement (mass/volume)Ordered By: Susanne Lopez on 05-08-2023 Creatinine [Mass/Vol] 1.03 mg/dL 0.55-1.02 [facility] Comment on above: The validity of the calculated GFR & GFRAA in patients over 70 years has not been determined. Clinical correlation is essential. Serum or plasma urea nitroge n measurement (mass/volume)Ordered By: Susanne Lopez on 05-08-2023 Urea nitrogen [Mass/Vol] 19 mg/dL 7-18 [facility] Thin prep Papanicolaou smear with manual screeningOrdered By: Susanne Jessica on 05-08-2023 Thin prep Papanicolaou smear with manual screening 13 U/L 15-37 [facility] Thin prep Papanicolaou smear with manual screening 5 5-15 [facility] Absolute lymphocyte countOrd ered By: Susanne Lopez on 04-24-2023 Lymphocytes Auto (Unsp spec) [#/Vol] 1.80 10*3/uL 0.83-4.51 [facility] Basophil percentageOrdered B y: Susanne Lopez on 04-24-2023 Basophils/100 WBC (Bld) 0.6 % 0-1 [facility] Eosinophils/100 WBC (Bld) 2.7 % 0-5 [facility] Neutrophils (Bld) [#/Vol] 5.1 10*3/uL 2.0-7.7 [facility] Neutrophils/100 WBC (Bld) 65.4 % 47-70 [facility] WBC (Bld) [#/Vol] 7.8 10*3/uL 4.4-11.0 [facility] Basophil percentageOrdered B y: Alex Love on 04-24-2023 Bilirubin [Mass/Vol] 0.60 mg/dL 0.20-1.00 [facility] Comment on above: For patients on eltr ombopag therapy, use of Dimension [place] TBIL is not recommended. Chloride [Moles/Vol] 107 mmol/L 98-107 [facility] Glucose [Mass/Vol] 101 mg/dL 74-106 [facility] Comment on above: Fasting Glucose resu lt from 100 to 125 mg/dL suggests IMPAIRED HOMEOSTASIS per A.D.A. criteria. Potassium [Moles/Vol] 4.6 mmol/L 3.5-5.1 [facility] Protein [Mass/Vol] 6.5 g/dL 6.4-8.2 [facility] Sodium [Moles/Vol] 140 mmol/L 136-145 [facility] Blood erythrocytes count (nu mber/volume)Ordered By: Susanne Lopez on 04-24-2023 RBC (Bld) [#/Vol] 4.02 10*6/uL 4.2-5.4 [facility] Blood hemoglobin measurement (mass/volume)Ordered By: Susanne Lopez on 04-24-2023 Hemoglobin (Bld) [Mass/Vol] 12.1 g/dL 12.0-15.0 [facility] Blood lymphocytes/100 leukoc ytesOrdered By: Susanne Lopez on 04-24-2023 Lymphocytes/100 WBC (Bld) 23.1 % 19-41 [facility] Blood monocytes/100 leukocyt esOrdered By: Susanne Lopez on 04-24-2023 Monocytes/100 WBC (Bld) 7.7 % 0-10 [facility] Blood platelet mean volumeOr dered By: Susanne Lopez on 04-24-2023 Platelet mean volume (Bld) [Entitic vol] 8.3 fL 6.2-12.0 [facility] Determination of erythrocyte mean corpuscular volume (MCV)Ordered By: Susanne Lopez on 04-24-2023 MCV (RBC) [Entitic vol] 97.0 fL 81-99 [facility] Direct bilirubinOrdered By: Alex Love on 04-24-2023 Bilirubin.direct [Mass/Vol] 0.15 mg/dL 0.00-0.30 [facility] Hematocrit Auto (Bld) [Volum e fraction]Ordered By: Susanne Lopez on 04-24-2023 Hematocrit (Bld) [Volume fraction] 39.0 % 37-47 [facility] Laboratory - Chemistry and C hemistry - challengeOrdered By: Alex Love on 04-24-2023 ALP [Catalytic activity/Vol] 86 U/L 45-117 [facility] ALT [Catalytic activity/Vol] 11 U/L 13-56 [facility] CO2 [Moles/Vol] 29.0 mmol/L 21.0-32.0 [facility] Globulin (S) [Mass/Vol] 3.3 g/dL 2.2-4.2 [facility] Urea nitrogen/Creatinine [Mass ratio] 18.3 mg/mg 10-20 [facility] - Hematology and Cell countsOrdered By: Susanne Lopez on 04-24-2023 Erythrocyte distribution width (RBC) [Entitic vol] 47.5 fL 35.1-43.9 [facility] Erythrocyte distribution width (RBC) [Ratio] 13.2 % 11.6-14.6 [facility] Immature granulocytes/100 WBC (Bld) 0.500 % 0.0-0.9 [facility] Comment on above: IG% - Immature Granu locytes (promyelocytes, myelocytes and metamyelocytes) > 1% indicates that a LEFT SHIFT is Present. MCH (RBC) [Entitic mass] 30.1 pg 27.0-32.0 [facility] Nucleated RBC/100 WBC (Bld) [Ratio] 0 % 0-5 [facility] MCHC Auto (RBC) [Mass/Vol]Or dered By: Susanne Lopez on 04-24-2023 MCHC (RBC) [Mass/Vol] 31.0 g/dL 32-36 [facility] No Panel InformationOrdered By: Alex Love on 04-24-2023 Estimated Creatinine Clearance Calc 37.23 ml/min [facility] Estimated GFR (MDRD) Amer 80 mL/min >60 [facility] Comment on above: GFR Calc Estimated GFR (MDRD) Non-Af Amer 66 mL/min >60 [facility] Comment on above: Non- GFR Calc Platelets bldOrdered By: Jes Lopez on 04-24-2023 Platelets (Bld) [#/Vol] 235 10*3/uL 150-450 [facility] Serum or plasma albumin brandan urement (mass/volume)Ordered By: Alex Love on 04-24-2023 Albumin [Mass/Vol] 3.2 g/dL 3.2-5.0 [facility] Serum or plasma albumin/glob ulin mass ratioOrdered By: Susanne Lopez on 04-24-2023 Albumin/Globulin [Mass ratio] 0.9 {ratio} 0.9-2.4 [facility] Serum or plasma calcium brandan urement (mass/volume)Ordered By: Alex Love on 04-24-2023 Calcium [Mass/Vol] 8.7 mg/dL 8.5-10.1 [facility] Serum or plasma creatinine m easurement (mass/volume)Ordered By: Alex Love on 04-24-2023 Creatinine [Mass/Vol] 0.88 mg/dL 0.55-1.02 [facility] Comment on above: The validity of the calculated GFR & GFRAA in patients over 70 years has not been determined. Clinical correlation is essential. Serum or plasma urea nitroge n measurement (mass/volume)Ordered By: Alex Love on 04-24-2023 Urea nitrogen [Mass/Vol] 16 mg/dL 7-18 [facility] Thin prep Papanicolaou smear with manual screeningOrdered By: Alex Love on 04-24-2023 Thin prep Papanicolaou smear with manual screening 12 U/L 15-37 [facility] Thin prep Papanicolaou smear with manual screening 4 5-15 [facility] No Panel InformationOrdered By: Alex Love on 04-09-2023 Miscellaneous Test Comment MAILED SPECIMEN [facility] Miscellaneous Test See comment [facility] Comment on above: Sent directly to [facility] per ordering physician. See comment [facility] Absolute lymphocyte countOrd ered By: Nery Maloney on 04-03-2023 Lymphocytes Auto (Unsp spec) [#/Vol] 2.06 10*3/uL 0.83-4.51 [facility] Basophil percentageOrdered B y: Nery Maloney on 04-03-2023 Basophils/100 WBC (Bld) 1.0 % 0-1 [facility] Chloride [Moles/Vol] 108 mmol/L 98-107 [facility] Eosinophils/100 WBC (Bld) 2.8 % 0-5 [facility] Glucose [Mass/Vol] 96 mg/dL 74-106 [facility] Neutrophils (Bld) [#/Vol] 4.2 10*3/uL 2.0-7.7 [facility] Neutrophils/100 WBC (Bld) 58.0 % 47-70 [facility] Potassium [Moles/Vol] 4.5 mmol/L 3.5-5.1 [facility] Sodium [Moles/Vol] 139 mmol/L 136-145 [facility] WBC (Bld) [#/Vol] 7.2 10*3/uL 4.4-11.0 [facility] Blood erythrocytes count (nu mber/volume)Ordered By: Nery Maloney on 04-03-2023 RBC (Bld) [#/Vol] 4.04 10*6/uL 4.2-5.4 [facility] Blood hemoglobin measurement (mass/volume)Ordered By: Nery Maloney on 04-03-2023 Hemoglobin (Bld) [Mass/Vol] 12.3 g/dL 12.0-15.0 [facility] Blood lymphocytes/100 leukoc ytesOrdered By: Nery Maloney on 04-03-2023 Lymphocytes/100 WBC (Bld) 28.8 % 19-41 [facility] Blood monocytes/100 leukocyt esOrdered By: Nery Maloney on 04-03-2023 Monocytes/100 WBC (Bld) 9.1 % 0-10 [facility] Blood platelet mean volumeOr dered By: Nery Maloney on 04-03-2023 Platelet mean volume (Bld) [Entitic vol] 8.4 fL 6.2-12.0 [facility] Determination of erythrocyte mean corpuscular volume (MCV)Ordered By: Nery Maloney on 04-03-2023 MCV (RBC) [Entitic vol] 97.0 fL 81-99 [facility] Hematocrit Auto (Bld) [Volum e fraction]Ordered By: Nery Maloney on 04-03-2023 Hematocrit (Bld) [Volume fraction] 39.2 % 37-47 [facility] Laboratory - Chemistry and C hemistry - challengeOrdered By: Nery Maloney on 04-03-2023 CO2 [Moles/Vol] 28.0 mmol/L 21.0-32.0 [facility] Free T4 [Mass/Vol] 1.14 ng/dL 0.76-1.46 [facility] Urea nitrogen/Creatinine [Mass ratio] 19.2 mg/mg 10-20 [facility] - Hematology and Cell countsOrdered By: Nery Maloney on 04-03-2023 Erythrocyte distribution width (RBC) [Entitic vol] 47.9 fL 35.1-43.9 [facility] Erythrocyte distribution width (RBC) [Ratio] 13.5 % 11.6-14.6 [facility] Immature granulocytes/100 WBC (Bld) 0.300 % 0.0-0.9 [facility] Comment on above: IG% - Immature Granu locytes (promyelocytes, myelocytes and metamyelocytes) > 1% indicates that a LEFT SHIFT is Present. MCH (RBC) [Entitic mass] 30.4 pg 27.0-32.0 [facility] Nucleated RBC/100 WBC (Bld) [Ratio] 0 % 0-5 [facility] MCHC Auto (RBC) [Mass/Vol]Or dered By: Nery Maloney on 04-03-2023 MCHC (RBC) [Mass/Vol] 31.4 g/dL 32-36 [facility] No Panel InformationOrdered By: Nery Maloney on 04-03-2023 Estimated GFR (MDRD) Amer 74 mL/min >60 [facility] Comment on above: GFR Calc Estimated GFR (MDRD) Non-Af Amer 61 mL/min >60 [facility] Comment on above: Non- GFR Calc Free Triiodothyronine (T3) pg/dL 2.7 pg/mL 2.18-3.98 [facility] Thyroid Stimulating Hormone (TSH) 0.28 uIU/mL 0.358-3.74 [facility] Platelets bldOrdered By: Jose M Maloney on 04-03-2023 Platelets (Bld) [#/Vol] 241 10*3/uL 150-450 [facility] Serum or plasma calcium brandan urement (mass/volume)Ordered By: Nery Maloney on 04-03-2023 Calcium [Mass/Vol] 9.3 mg/dL 8.5-10.1 [facility] Serum or plasma creatinine m easurement (mass/volume)Ordered By: Nery Maloney on 04-03-2023 Creatinine [Mass/Vol] 0.94 mg/dL 0.55-1.02 [facility] Comment on above: The validity of the calculated GFR & GFRAA in patients over 70 years has not been determined. Clinical correlation is essential. Serum or plasma urea nitroge n measurement (mass/volume)Ordered By: Nery Maloney on 04-03-2023 Urea nitrogen [Mass/Vol] 18 mg/dL 7-18 [facility] Thin prep Papanicolaou smear with manual screeningOrdered By: Nery Maloney on 04-03-2023 Thin prep Papanicolaou smear with manual screening 3 5-15 [facility] CNPNon 04-02-2023 CNPN Telephone (GENSF) -- ANAY SAMUELS ([id number]) 1945 F Date Time Provider Department 04/02/23 RAND CALZADA During your visit today, we recorded the following information about you: Rand Calzada DO 04/02/2023 1:06 PM Signed I called and spoke to both Mrs. Samuels and Dr. Love. Discussed medical management as next steps per tumor board recommendations. Surgery not indicated at this time. Tumor board note was faxed to Dr. Love's office [phone]. Rand Calzada DO Breast Surgeon Allergies As [...] Encounter Status:Closed by RAND CALZADA on 04/02/23 [facility] HER2 (4B5) BY IHCon 03-28-20 HER2 (4B5) BY IHC Breast Biomarkers RESULTS: Estrogen Receptor (ER) Positive 95% Stain intensity: moderate to strong Internal controls: absent External controls: appropriately stained Progesterone Receptor (TN) Positive 10% Stain intensity: weak Internal controls: [...] Reference Range for Hormone Receptors: Staining for TN of greater than or equal to 1% of the tumor cells is considered positive. Staining for ER of 1-10% of the tumor cells is considered low positive. Staining for ER of greater than 10% of the tumor cells is considered positive. Staining for ER or TN of less than 1% is considered negative. Reference Ranges for HER2 (ERBB2) immunohistochemistry: Positive (3+): Complete, intense circumferential membrane staining in >10% of tumor cells Equivocal (2+): Weak to moderate complete membrane staining observed in >10% of tumor cells Negative (1+): Incomplete, faint membrane staining in >10% of tumor cells Negative (0): No staining or incomplete faint membrane staining in [facility] SURGICAL PATHOLOGYon 06-14-2 023 Case Report Surgical Pathology R eport Case: [id number] Authorizing Provider: Rand Calzada DO Collected: 03/23/2023 03:36 PM Ordering Location: General Surgery Received: 03/23/2023 03:43 PM Pathologist: Ivette Mantilla MD Specimen: SKIN PUNCH BIOPSY, left breast [facility] Clinical History new skin lesion [facility] Diagnosis Comment The histological sec tions reveal a proliferation of atypical epithelioid cells intercalated through the collagen bundles with focal duct formation. To better characterize the specimen, additional immunohistochemical stains are performed on block A1 and compared with appropriate controls at the [facility]. The lesional cells are strongly and diffusely positive for CK7 and GATA3. There is strong diffuse positive staining for ER (qualitative). There is weak focal positive staining for TN and HER2 (qualitative). 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 Breast markers will be reported in an addendum. Laboratory Developed Test (LDT) Disclaimer: Performance characteristics of immunohistochemical, immunofluorescent and chromogenic in-situ hybridization tests have been determined by the performing laboratory within [facility] s [facility] [place] ([facility], [facility], [facility], [facility], [facility], or [facility], [facility]) in a manner consistent with CLIA requirements. One or more of these tests have not been cleared or approved by the FDA. [facility] is regulated under CLIA as qualified to perform high-complexity testing. These tests are used for clinical purposes. They should not be regarded as investigational or for research. Positive and negative controls stain appropriately. [facility] FINAL DIAGNOSIS A. Skin, left breast , punch biopsy: -Metastatic breast adenocarcinoma, see comment. JK/RTCha 03/26/2023 [facility] Gross Description A. SKIN PUNCH BIOPSY Received in formalin is a cylindrical segment of skin and subcutaneous tissue measuring 0.4 x 0.2 x 0.5 cm. On the skin surface there is a 0.3 solitario cm soiltario flat area. The specimen is not sectioned. Totally submitted in one cassette. Gross examination performed at [facility], [address] [place] [address] FFS 03/23/2023 9:57 PM [facility] Performing Lab Diagnostic interpret ation performed at [facility], [address] [facility] [address] CLIA# [id number] Bundle Collector: Ld Vang M.D. [facility] CNOVon 03-23-2023 CNOV Office Visit (GENSF) -- ANAY SAMUELS ([id number]) 1945 F Date Time Provider Department 03/23/23 [...] and has been on neoadjuvant endocrine therapy. ER+TN+HER2- [id number] (thyroid/cervical LN) HISTORY: Patient was last seen for a follow up on 09/28/2022 At that time, she had showed improvement with the use of AI, but clinically, unresectable, with a mass involving her chest wall. In the interim, she continues on AI She is here to discuss the findings on a recent PET scan performed at [facility] on 02/27/2023. Review of findings reported "both persistent and newly identified viable neoplasm within the left breast manifesting interim metabolic progression". ROS: HEENT: Denies vision changes or headaches [...] Surgeon cc: Erik Nguyen MD [address] [facility] [address] [address] Ivette Mcginnis LPN 03/23/2023 2:11 PM Signed [...] HISTORY Diagn (more content not included)... Normal [facility] HER2 (4B5) BY IHCon 03-23-20 23 HER2 (4B5) BY IHC Normal [facility] Comment on above: Order Comment: Speci men Type: TISSUE SPECIMEN Ordering Facility: [facility] Address: [address] [place], [place] [address] [address] Result Comment: [facility] RESULTS: Estrogen Receptor (ER) Positive 95% Stain intensity: moderate to strong Internal controls: absent External controls: appropriately stained Progesterone Receptor (TN) Positive 10% Stain intensity: weak Internal controls: [...] Reference Range for Hormone Receptors: Staining for TN of greater than or equal to 1% of the tumor cells is considered positive. Staining for ER of 1-10% of the tumor cells is considered low positive. Staining for ER of greater than 10% of the tumor cells is considered positive. Staining for ER or TN of less than 1% is considered negative. [...] and Progesterone Receptor Testing in Breast Cancer: [place] [employer] of Clinical On[employer] [place] Pathologists Guideline Update. SHAMAR Vallejo, Ceasar MASTERS, et al., Arch Pathol Lab Med. 2019Oct 27. METHODS: Estrogen Receptor: Food and Drug Administration (FDA) cleared: [employer], [place], [place] Primary Antibody: SP1 Progesterone Receptor: FDA cleared: [employer], [place], [place] Primary Antibody: IE2 HER2 (ERBB2) by IHC: FDA cleared: [employer], [place], [place] Primary Antibody:4B5 The hormone receptor tests were performed and reported in accordance with the guidelines approved by the [place] Society of Clinical Oncologists and the College of [place] Pathologists. Genevieve IBANEZ, et al. Estrogen and Progesterone Receptor Testing in Breast Cancer: [place] Society of Clinical Oncologists and the College of [place] Pathologists Guideline Update. Arch Pathol Lab Med. 2019;144(5):545-563. PMID: 20048562. The hormone receptor assays have been internally validated on decalcified tissues (for [facility] only). Estrogen and progesterone receptor results are valid if tissue was processed according to ASCO/CAP guidelines. Antibody and Detection System: [employer] anti-HER2 rabbit monoclonal antibody (clone 4B5), detected with the [employer] Diller DAB Detection Kit (indirect, biotin-free detection system): [employer], [place], [place]. Control Slides: Cell line controls with [...] accordance with the guidelines approved by the [place] Society of Clinical Oncologists and the College of [place] Pathologists. Aiyana WOOD et al. Arch Pathol Lab Med. 2018;1379(9) The HER2 assay has not been validated on decalcified tissues. Results should be interpreted with caution given the possibility of false negative results on decalcified specimens. Laboratory Developed Test (LDT) Disclaimer: Performance characteristics of immunohistochemical, immunofluorescent and chromogenic in-situ hybridization tests have been determined by the performing laboratory within [facility]???[facility] [place] ([facility] (more content not included)... Performed By: #### L [id number], S #### [facility] CLIA [id number] [address] SURGICAL PATHOLOGYon 023 CASE REPORT Normal [facility] Comment on above: Order Comment: Blanche castaneda Type: TISSUE SPECIMEN Ordering Facility: [facility] Address: [address] [place] [address] Result Comment: Surg ical Pathology Report Case: [id number] Authorizing Provider: Rand Calzada DO Collected: 03/23/2023 03:36 PM Ordering Location: General Surgery Received: 03/23/2023 03:43 PM Pathologist: Ivette Mantilla MD Specimen: SKIN PUNCH BIOPSY, left breast Performed By: #### L [id number], S #### [facility] CLIA [id number] [address] [place] [address] CLINICAL HISTORY new skin lesion Normal [facility] Comment on above: Order Comment: Blanche castaneda Type: TISSUE SPECIMEN Ordering Facility: [facility] Address: [address] [place] [address] Performed By: #### L [id number], S #### [facility] CLIA [id number] [address] [place] [address] DIAGNOSIS COMMENT Normal [facility] Comment on above: Order Comment: Blanche castaneda Type: TISSUE SPECIMEN Ordering Facility: [facility] Address: [address] [place] [address] Result Comment: The histological sections reveal a proliferation of atypical epithelioid cells intercalated through the collagen bundles with focal duct formation. To better characterize the specimen, additional immunohistochemical stains are performed on block A1 and compared with appropriate controls at the [facility]. The lesional cells are strongly and diffusely positive for CK7 and GATA3. There is strong diffuse positive staining for ER (qualitative). There is weak focal positive staining for TN and HER2 (qualitative). 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 Breast markers will be reported in an addendum. Laboratory Developed Test (LDT) Disclaimer: Performance characteristics of immunohistochemical, immunofluorescent and chromogenic in-situ hybridization tests have been determined by the performing laboratory within [facility]???s [facility] [place] ([facility], [facility], [facility], [facility], [facility], or [facility]ly [facility], 1928–1983) in a manner consistent with CLIA requirements. One or more of these tests have not been cleared or approved by the FDA. [facility] is regulated under CLIA as qualified to perform high-complexity testing. These tests are used for clinical purposes. They should not be regarded as investigational or for research. Positive and negative controls stain appropriately. Performed By: #### L [id number], S #### [facility] CLIA [id number] [address] [place] [address] FINAL DIAGNOSIS Normal [facility] Comment on above: Order Comment: Speci men Type: TISSUE SPECIMEN Ordering Facility: [facility] Address: [address] [place] [address] Result Comment: Sue perea, left breast, punch biopsy: -Metastatic breast adenocarcinoma, see comment. COLLIN/KAVITHA 03/26/2023 Performed By: #### L [id number], S #### [facility] CLIA [id number] [address] [place] [address] OF [facility] FINAL PERFORMING LAB Normal [facility] Comment on above: Order Comment: Speci men Type: TISSUE SPECIMEN Ordering Facility: [facility] Address: [address] [place] [address] Result Comment: Diag nostic interpretation performed at [facility], [address] [place] [address] CLIA# [id number] Bundle Collector: Ld Vang M.D. Performed By: #### L [id number], S #### [facility] CLIA [id number] [address] [place] [address] GROSS DESCRIPTION Normal [facility] Comment on above: Order Comment: Speci men Type: TISSUE SPECIMEN Ordering Facility: [facility] Address: [address] [address] Result Comment: A. S KIN PUNCH BIOPSY Received in formalin is a cylindrical segment of skin and subcutaneous tissue measuring 0.4 x 0.2 x 0.5 cm. On the skin surface there is a 0.3 solitario cm solitario flat area. The specimen is not sectioned. Totally submitted in one cassette. Gross examination performed at [facility], [address] [place] [address] FFS 03/23/2023 9:57 PM Performed By: #### L [id number], S #### [facility] CLIA [id number] [address] [place] [address] [id number] [id number] [facility] CNPNon 03-02-2023 CNPN Telephone (GENSF) -- ANAY SAMUELS ([id number]) 1945 F Date Time Provider Department 03/02/23 [...] March 23 at 2 pm at the [facility]. She accepted this date time. I [...] Encounter Status:Closed by IVETTE MCGINNIS on 03/02/23 [facility] Absolute lymphocyte countOrd ered By: Dr. Love on 03-01-2023 Lymphocytes Auto (Unsp spec) [#/Vol] 2.16 10*3/uL 0.83-4.51 [facility] Basophil percentageOrdered B y: Dr. Love on 03-01-2023 Basophils/100 WBC (Bld) 0.8 % 0-1 [facility] Bilirubin [Mass/Vol] 0.40 mg/dL 0.20-1.00 [facility] Comment on above: For patients on eltr ombopag therapy, use of Dimension [place] TBIL is not recommended. Chloride [Moles/Vol] 108 mmol/L 98-107 [facility] Eosinophils/100 WBC (Bld) 2.8 % 0-5 [facility] Glucose [Mass/Vol] 87 mg/dL 74-106 [facility] LDH [Catalytic activity/Vol] 189 U/L 84-246 [facility] Neutrophils (Bld) [#/Vol] 4.1 10*3/uL 2.0-7.7 [facility] Neutrophils/100 WBC (Bld) 57.4 % 47-70 [facility] Potassium [Moles/Vol] 4.1 mmol/L 3.5-5.1 [facility] Protein [Mass/Vol] 6.9 g/dL 6.4-8.2 [facility] Sodium [Moles/Vol] 141 mmol/L 136-145 [facility] WBC (Bld) [#/Vol] 7.1 10*3/uL 4.4-11.0 [facility] Blood erythrocytes count (nu mber/volume)Ordered By: Dr. Love on 03-01-2023 RBC (Bld) [#/Vol] 4.11 10*6/uL 4.2-5.4 [facility] Blood hemoglobin measurement (mass/volume)Ordered By: Dr. Love on 03-01-2023 Hemoglobin (Bld) [Mass/Vol] 12.5 g/dL 12.0-15.0 [facility] Blood lymphocytes/100 leukoc ytesOrdered By: Dr. Love on 03-01-2023 Lymphocytes/100 WBC (Bld) 30.3 % 19-41 [facility] Blood monocytes/100 leukocyt esOrdered By: Dr. Love on 03-01-2023 Monocytes/100 WBC (Bld) 8.3 % 0-10 [facility] Blood platelet mean volumeOr dered By: Dr. Love on 03-01-2023 Platelet mean volume (Bld) [Entitic vol] 8.3 fL 6.2-12.0 [facility] Determination of erythrocyte mean corpuscular volume (MCV)Ordered By: Dr. Love on 03-01-2023 MCV (RBC) [Entitic vol] 96.8 fL 81-99 [facility] Hematocrit Auto (Bld) [Volum e fraction]Ordered By: Dr. Love on 03-01-2023 Hematocrit (Bld) [Volume fraction] 39.8 % 37-47 [facility] Laboratory - Chemistry and C hemistry - challengeOrdered By: Dr. Love on 03-01-2023 ALP [Catalytic activity/Vol] 75 U/L 45-117 [facility] ALT [Catalytic activity/Vol] 22 U/L 13-56 [facility] CO2 [Moles/Vol] 26.0 mmol/L 21.0-32.0 [facility] Globulin (S) [Mass/Vol] 3.5 g/dL 2.2-4.2 [facility] Urea nitrogen/Creatinine [Mass ratio] 21.6 mg/mg 10-20 [facility] Laboratory - Hematology and Cell countsOrdered By: Dr. Love on 03-01-2023 Erythrocyte distribution width (RBC) [Entitic vol] 48.0 fL 35.1-43.9 [facility] Erythrocyte distribution width (RBC) [Ratio] 13.5 % 11.6-14.6 [facility] Immature granulocytes/100 WBC (Bld) 0.400 % 0.0-0.9 [facility] Comment on above: IG% - Immature Granu locytes (promyelocytes, myelocytes and metamyelocytes) > 1% indicates that a LEFT SHIFT is Present. MCH (RBC) [Entitic mass] 30.4 pg 27.0-32.0 [facility] Nucleated RBC/100 WBC (Bld) [Ratio] 0 % 0-5 [facility] MCHC Auto (RBC) [Mass/Vol]Or dered By: Dr. Love on 03-01-2023 MCHC (RBC) [Mass/Vol] 31.4 g/dL 32-36 [facility] No Panel InformationOrdered By: Dr. Love on 03-01-2023 Miscellaneous Test See comment [facility] Comment on above: Sent directly to [facility] facility per ordering physician. Estimated GFR (MDRD) Amer 75 mL/min >60 [facility] Comment on above: GFR Calc Estimated GFR (MDRD) Non-Af Amer 62 mL/min >60 [facility] Comment on above: Non- GFR Calc Platelets bldOrdered By: Dr. Love on 03-01-2023 Platelets (Bld) [#/Vol] 221 10*3/uL 150-450 [facility] Serum or plasma albumin brandan urement (mass/volume)Ordered By: Dr. Love on 03-01-2023 Albumin [Mass/Vol] 3.4 g/dL 3.2-5.0 [facility] Serum or plasma albumin/glob ulin mass ratioOrdered By: Dr. Love on 03-01-2023 Albumin/Globulin [Mass ratio] 1.0 {ratio} 0.9-2.4 [facility] Serum or plasma calcium brandan urement (mass/volume)Ordered By: Dr. Love on 03-01-2023 Calcium [Mass/Vol] 9.0 mg/dL 8.5-10.1 [facility] Serum or plasma creatinine m easurement (mass/volume)Ordered By: Dr. Love on 03-01-2023 Creatinine [Mass/Vol] 0.93 mg/dL 0.55-1.02 [facility] Comment on above: The validity of the calculated GFR & GFRAA in patients over 70 years has not been determined. Clinical correlation is essential. Serum or plasma urea nitroge n measurement (mass/volume)Ordered By: Dr. Love on 03-01-2023 Urea nitrogen [Mass/Vol] 20 mg/dL 05-01 [facility] Thin prep Papanicolaou smear with manual screeningOrdered By: Dr. Love on 03-01-2023 Thin prep Papanicolaou smear with manual screening 17 U/L 1537 [facility] Thin prep Papanicolaou smear with manual screening 7 5-15 [facility] CNOVon 09-28-2022 CNOV Office Visit (WMHT ) -- ANAY SAMUELS ([id number]) 1945 F Date Time Provider Department 09/28/22 3:30 PM RAND CALZADA During your visit today, we recorded the following information about you: Ivette Mcginnis LPN 09/28/2022 4:33 PM Signed Follow up Did patient bring outside records to appt today? : No Last mammogram on: 12/08/21 bilateral Results: see report Is the patient active on [employer] Yes Electronically Signed By: Ivette Mcginnis LPN [...] those lesions. 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 Alex Love (Medical Oncologist) at [facility] ([facility]). Remains on Anastrozole without any side effects and reports the left "lump" has decreased in size. Tolerating the medication well. Overall, has stayed pretty healthy since I last saw her. Presents with her today. IMAGIN09/14/22 [facility] 0539 - CT CHEST W IVCON / [...] or dest (more content not included)... Normal [facility] CT Chest W contrast Nicole IMPRESSION: 1. No suspicious pulmonary nodules 2. Decreased size of left axillary lymph nodes 3. Decreased size of a lobulated mass in the medial left breast Sql Etl Developer: PSCB Transcribe Date/Time: Sep 16 2022 4:33P Dictated by : ISABELLA ORTIZ MD This examination was interpreted and the report reviewed and electronically signed by: ISABELLA ORTIZ MD on Sep 16 2022 4:43PM [facility] DIVISION OF RADIOLOGY * * *Final Report* * * DATE OF EXAM: Sep 14 2022 10:36AM [facility] 0539 - CT CHEST W IVCON / [...] imaged upper abdomen. Small sliding hiatal hernia. Auto Mechanic Apprentice (topogram) images: No additional findings. DIVISION OF RADIOLOGY Provider, [facility] - 09/16/2022 * * *Final Report* * * DATE OF EXAM: Sep 14 2022 10:36AM [facility] 0539 - CT CHEST W IVCON / [...] imaged upper abdomen. Small sliding hiatal hernia. Auto Mechanic Apprentice (topogram) images: No additional findings. IMPRESSION IMPRESSION: 1. No suspicious pulmonary nodules 2. Decreased size of left axillary lymph nodes 3. Decreased size of a lobulated mass in the medial left breast Sql Etl Developer: PSCB Transcribe Date/Time: Sep 16 2022 4:33P Dictated by : ISABELLA ORTIZ MD This examination was interpreted and the report reviewed and electronically signed by: ISABELLA ORTIZ MD on Sep 16 2022 4:43PM EST [facility] CT Chest W contrast IVOrdere d By: Ccf Provider on 09-16-2022 [facility] CREATININE, BLOOD (POC)on Creatinine [Mass/Vol] 0.60 mg/dL 0.6 - 1.3 mg/dL [facility] eGFR (POCT) mL/min/1.73 m2 [facility] Location:Radiology [facility], [address] [place] [address], [address] [place] [address] POINT OF CARE [facility] CT CHEST W IVCONon CT CHEST W IVCON * * *Final Report* * * DATE OF EXAM: Sep 14 2022 10:36AM [facility] 0539 - CT CHEST W IVCON / [...] imaged upper abdomen. Small sliding hiatal hernia. Auto Mechanic Apprentice (topogram) images: No additional findings. IMPRESSION: 1. No suspicious pulmonary nodules 2. Decreased size of left axillary lymph nodes 3. Decreased size of a lobulated mass in the medial left breast Sql Etl Developer: PSCB Transcribe Date/Time: Sep 16 2022 4:33P Dictated by : ISABELLA ORTIZ MD This examination was interpreted and the report reviewed and electronically signed by: ISABELLA ORTIZ MD on Sep 16 2022 4:43PM EST [id number] Normal [facility] CT Chest W contrast Nicole Radiology Study observation (narrative) [facility] CNOVon 06-15-2022 CNOV Office Visit ([facility]HLST ) -- ANAY SAMUELS ([id number]) 1945 F Date Time Provider Department 06/15/22 10:00 AM RAND CALZADA [facility] During your visit today, we recorded the following information about you: Rand Sd Calzada DO 06/22/2022 10:23 PM Signed REASON [...] those lesions. 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 Alex Love (Medical Oncologist) at [facility] ([facility]). Remains on Anastrozole without any side effects and reports the left "lump" has decreased in size. Patient reports the [...] 12/08/2021 ultrasound and 12/08/2021 mammogram - [facility]. There are scattered fibroglandular elements in left [...] LEFT BREAST: (more content not included)... Normal [facility] DBT Breast - left diagnostic for implanton 06-15-2022 * * *Final Report* * * DATE OF EXAM: Jun 15 2022 9:56AM SSW 0628 - [facility] DIAG W TAVON LT / PROCEDURE REASON: multiple diagnoses * * * * Physician Interpretation * * * * RESULT: #[id number] - [facility] DIAG W TAVON LT #[id number] - [facility] US BREAST LTD LT UNILATERAL [...] 12/08/2021 ultrasound and 12/08/2021 mammogram - [facility]. There are scattered fibroglandular elements in left [...] in the breast. DIVISION [facility]OLOGY [facility] * * *Final Report* * * DATE OF EXAM: Jun 15 2022 9:56AM [facility] 0628 - [facility] DIAG W TAVON LT / PROCEDURE REASON: multiple diagnoses * * * * Physician Interpretation * * * * RESULT: #[id number] - [facility] DIAG W TAVON LT #[id number] - [facility] US BREAST [...] 12/08/2021 ultrasound and 12/08/2021 mammogram - [facility]. There are scattered fibroglandular elements in left [...] 12/08/2021 ultrasound and 12/08/2021 mammogram - [facility]. Real-time ultrasound of the left breast was [...] Health, Family Medicine, and Medical/Surgical Oncology, the [facility] has carefully reviewed the data and [...] a biennial int (more content not included)... [facility] LOLIS MONTES DE OCA LTon 022 [facility] SARA MONTES DE OCA LT * * *Final Report* * * DATE OF EXAM: Jun 15 2022 9:56AM SSW 0628 - [facility] SARA MONTES DE OCA LT / PROCEDURE REASON: multiple diagnoses * * * * Physician Interpretation * * * * RESULT: #[id number] - [facility] DIAG W TAVON LT #[id number] - [facility] US BREAST [...] 12/08/2021 ultrasound and 12/08/2021 mammogram - [facility]. There are scattered fibroglandular elements in left [...] 12/08/2021 ultrasound and 12/08/2021 mammogram - [facility]. Real-time ultrasound of the left breast was [...] Health, Family Medicine, and Medical/Surgical Oncology, the [facility] has carefully reviewed the data and [...] their pr (more content not included)... Normal [facility] US BREAST LTD LTon 06-15 [facility] US BREAST LTD LT * * *Final Report* * * DATE OF EXAM: Jun 15 2022 10:20AM SSW 0593 - [facility] US BREAST LTD LT / PROCEDURE REASON: multiple diagnoses * * * * Physician Interpretation * * * * RESULT: #[id number] - [facility] DIAG W TAVON LT #[id number] - [facility] ConnectEdu BREAST LTD LT UNILATERAL LEFT DIGITAL DIAGNOSTIC [...] 12/08/2021 ultrasound and 12/08/2021 mammogram - [facility]. There are scattered fibroglandular elements in left [...] 12/08/2021 ultrasound and 12/08/2021 mammogram - [facility]. Real-time ultrasound of the left breast was [...] Health, Family Medicine, and Medical/Surgical Oncology, the [facility] has carefully reviewed the data and [...] with their (more content not included)... Normal [facility] No Panel InformationOrdered By: Ccf Provider on 06-15-2022 [facility] No Panel Informationon 06-15 Radiology Study observation (narrative) [facility] Breast - left limitedon 0 06-15-2022 * * *Final Report* * * DATE OF EXAM: Jun 15 2022 10:20AM SSW 0593 - [facility] US BREAST LTD LT / PROCEDURE REASON: multiple diagnoses * * * * Physician Interpretation * * * * RESULT: #[id number] - [facility] DIAG W TAVON LT #[id number] - [facility] ConnectEdu BREAST LTD LT UNILATERAL LEFT DIGITAL DIAGNOSTIC [...] 12/08/2021 ultrasound and 12/08/2021 mammogram - [facility]. There are scattered fibroglandular elements in left [...] the breast. DIVISION OF RADIOLOGY Provider, Rosangela Burton [facility] - 06/15/2022 * * *Final Report* * * DATE OF EXAM: Jun 15 2022 10:20AM SSW 0593 - [facility] ConnectEdu BREAST LTD LT / PROCEDURE REASON: multiple diagnoses * * * * Physician Interpretation * * * * RESULT: #[id number] - [facility] DIAG W TAVON LT #[id number] - [facility] ConnectEdu BREAST LTD LT UNILATERAL LEFT DIGITAL DIAGNOSTIC [...] 12/08/2021 ultrasound and 12/08/2021 mammogram - [facility]. There are scattered fibroglandular elements in left [...] 12/08/2021 ultrasound and 12/08/2021 mammogram - [facility]. Real-time ultrasound of the left breast was [...] Health, Family Medicine, and Medical/Surgical Oncology, the [facility] has carefully reviewed the data and [...] to a biennial (more content not included)... [facility] Basophil percentageon 2021 Bilirubin [Mass/Vol] 0.50 mg/dL 0.20-1.00 [facility] Work Phone: Comment on above: For patients on eltr ombopag therapy, use of Dimension [place] TBIL is not recommended. Cholesterol [Mass/Vol] 171 mg/dL <200 [facility] Work Phone: Comment on above: <200 mg/dL Desirable 200-240 mg/dL Borderline >240 mg/dL High Risk Protein [Mass/Vol] 6.6 g/dL 6.4-8.2 [facility] Work Phone: Triglyceride [Mass/Vol] 65 mg/dL <199 [facility] Work Phone: Comment on above: The drugs N-Acetylcy steine and Metamizole may falsely depress this assay.Serum Triglycerides Reference Interval Normal <150 mg/dL Borderline high 150 - 199 mg/dL High 200 - 499 mg/dL Very High > or = 500 mg/dL Direct bilirubinon 2 Bilirubin.direct [Mass/Vol] 0.15 mg/dL 0.00-0.30 [facility] Work Phone: Laboratory - Chemistry and C hemistry - challengeon 04-01-2022 ALP [Catalytic activity/Vol] 70 U/L 45-117 [facility] Work Phone: ALT [Catalytic activity/Vol] 15 U/L 13-56 [facility] Work Phone: Globulin (S) [Mass/Vol] 3.3 g/dL 2.2-4.2 [facility] Work Phone: Serum or plasma albumin brandan urement (mass/volume)on 04-01-2022 Albumin [Mass/Vol] 3.3 g/dL 3.2-5.0 [facility] Work Phone: Serum or plasma cholesterol in HDL measurement (mass/volume)on 04-01-2022 Cholesterol in HDL [Mass/Vol] 63 mg/dL >40 [facility] Work Phone: Comment on above: The drugs N-Acetylcy steine and Metamizole may falsely depress this assay. Reference Range HDL <40 mg/dL Low HDL Cholesterol HDL >or= 60 mg/dL High HDL Cholesterol Serum or plasma cholesterol in VLDL measurement (mass/volume)on 04-01-2022 Cholesterol in VLDL [Mass/Vol] 13 mg/dL 5-40 [facility] Work Phone: Serum or plasma low density lipoprotein (LDL) cholesterol measurement (mass/volume)on 04-01-2022 Cholesterol in LDL [Mass/Vol] 95 mg/dL 0-130 [facility] Work Phone: Thin prep Papanicolaou smear with manual screeningon 04-01-2022 Thin prep Papanicolaou smear with manual screening 15 U/L 15-37 [facility] Work Phone: Absolute lymphocyte counton 03-16-2022 Lymphocytes Auto (Unsp spec) [#/Vol] 2.10 10*3/uL 0.83-4.51 [facility] Work Phone: Basophil percentageon 2021 Basophils/100 WBC (Bld) 0.5 % 0-1 [facility] Work Phone: Bilirubin [Mass/Vol] 0.50 mg/dL 0.20-1.00 [facility] Work Phone: Comment on above: For patients on eltr ombopag therapy, use of Dimension [place] TBIL is not recommended. Chloride [Moles/Vol] 106 mmol/L 98-107 [facility] Work Phone: Eosinophils/100 WBC (Bld) 1.9 % 0-5 [facility] Work Phone: Glucose [Mass/Vol] 108 mg/dL 74-106 [facility] Work Phone: Comment on above: Fasting Glucose resu lt from 100 to 125 mg/dL suggests IMPAIRED HOMEOSTASIS per A.D.A. criteria. Neutrophils (Bld) [#/Vol] 3.4 10*3/uL 2.0-7.7 [facility] Work Phone: Neutrophils/100 WBC (Bld) 54.6 % 47-70 [facility] Work Phone: Potassium [Moles/Vol] 4.4 mmol/L 3.5-5.1 [facility] Work Phone: Protein [Mass/Vol] 7.0 g/dL 6.4-8.2 [facility] Work Phone: Sodium [Moles/Vol] 139 mmol/L 136-145 [facility] Work Phone: WBC (Bld) [#/Vol] 6.2 10*3/uL 4.4-11.0 [facility] Work Phone: Blood erythrocytes count (nu mber/volume)on 03-16-2022 RBC (Bld) [#/Vol] 3.95 10*6/uL 4.2-5.4 [facility] Work Phone: Blood hemoglobin measurement (mass/volume)on 03-16-2022 Hemoglobin (Bld) [Mass/Vol] 12.3 g/dL 12.0-15.0 [facility] Work Phone: Blood lymphocytes/100 leukoc yteson 03-16-2022 Lymphocytes/100 WBC (Bld) 33.8 % 19-41 [facility] Work Phone: Blood monocytes/100 leukocyt eson 03-16-2022 Monocytes/100 WBC (Bld) 8.7 % 0-10 [facility] Work Phone: Blood platelet mean volumeon 03-16-2022 Platelet mean volume (Bld) [Entitic vol] 8.2 fL 6.2-12.0 [facility] Work Phone: Determination of erythrocyte mean corpuscular volume (MCV)on 03-16-2022 MCV (RBC) [Entitic vol] 97.7 fL 81-99 [facility] Work Phone: Hematocrit Auto (Bld) [Volum e fraction]on 03-16-2022 Hematocrit (Bld) [Volume fraction] 38.6 % 37-47 [facility] Work Phone: Laboratory - Chemistry and C hemistry - challengeon 03-16-2022 ALP [Catalytic activity/Vol] 72 U/L 45-117 [facility] Work Phone: ALT [Catalytic activity/Vol] 19 U/L 13-56 [facility] Work Phone: CO2 [Moles/Vol] 28.0 mmol/L 21.0-32.0 [facility] Work Phone: Globulin (S) [Mass/Vol] 3.5 g/dL 2.2-4.2 [facility] Work Phone: Urea nitrogen/Creatinine [Mass ratio] 25.0 mg/mg 10-20 [facility] Work Phone: Laboratory - Hematology and Cell countson 03-16-2022 Erythrocyte distribution width (RBC) [Entitic vol] 47.4 fL 35.1-43.9 [facility] Work Phone: Erythrocyte distribution width (RBC) [Ratio] 13.1 % 11.6-14.6 [facility] Work Phone: Immature granulocytes/100 WBC (Bld) 0.500 % 0.0-0.9 [facility] Work Phone: Comment on above: IG% - Immature Granu locytes (promyelocytes, myelocytes and metamyelocytes) > 1% indicates that a LEFT SHIFT is Present. MCH (RBC) [Entitic mass] 31.1 pg 27.0-32.0 [facility] Work Phone: Nucleated RBC/100 WBC (Bld) [Ratio] 0 % 0-5 [facility] Work Phone: MCHC Auto (RBC) [Mass/Vol]on 03-16-2022 MCHC (RBC) [Mass/Vol] 31.9 g/dL 32-36 [facility] Work Phone: No Panel Informationon 03-16 Estimated GFR (MDRD) Amer 94 mL/min >60 [facility] Work Phone: Comment on above: GFR Calc Estimated GFR (MDRD) Non-Af Amer 78 mL/min >60 [facility] Work Phone: Comment on above: Non- GFR Calc Platelets bldon 03-16-2022 Platelets (Bld) [#/Vol] 218 10*3/uL 150-450 [facility] Work Phone: Serum or plasma albumin brandan urement (mass/volume)on 03-16-2022 Albumin [Mass/Vol] 3.5 g/dL 3.2-5.0 [facility] Work Phone: Serum or plasma albumin/glob ulin mass ratioon 03-16-2022 Albumin/Globulin [Mass ratio] 1.0 {ratio} 0.9-2.4 [facility] Work Phone: Serum or plasma calcium brandan urement (mass/volume)on 03-16-2022 Calcium [Mass/Vol] 8.9 mg/dL 8.5-10.1 [facility] Work Phone: Serum or plasma creatinine m easurement (mass/volume)on 03-16-2022 Creatinine [Mass/Vol] 0.76 mg/dL 0.55-1.02 [facility] Work Phone: Comment on above: The validity of the calculated GFR & GFRAA in patients over 70 years has not been determined. Clinical correlation is essential. Serum or plasma urea nitroge n measurement (mass/volume)on 03-16-2022 Urea nitrogen [Mass/Vol] 19 mg/dL 7-18 [facility] Work Phone: Thin prep Papanicolaou smear with manual screeningon 03-16-2022 Thin prep Papanicolaou smear with manual screening 13 U/L 15-37 [facility] Work Phone: Thin prep Papanicolaou smear with manual screening 5 5-15 [facility] Work Phone: Thin prep Papanicolaou smear with manual screening 181 U/L 84-246 [facility] Work Phone: Culture, urineon 01-09-2022 Bacteria identified Cx Nom (U) Presumptive E. coli [facility] Work Phone: CONVERTED SURGICAL PATHOLOGY on 12-12-2021 CONVERTED COMPLETE REPORT Specimen #: [id number]* Submitting Physician: RAND CALZADA D.O. FINAL DIAGNOSIS 15 slides received from [facility], [place], [place] labeled [id number] from procedure dated 10/27/2021. [...] 12/08/2021 Submitted by: RAND CALZADA D.O. Location: [facility] Diagnostic interpretation performed at [facility], [address] [place] [address]. CLIA Number: [id number] [facility] CONVERTED DIAGNOSIS COMMENT The invasive carcinoma [...] as a focus suspicious for extranodal extension. [facility] CONVERTED ORDERING PROVIDER Ordering Provider: RAND CALZADA [facility] CONVERTED SPECIMENS 15 SLIDES ([id number]) [facility] SURGICAL PATHOLOGYon 022 Telecommunications Consultant Specimen #: [id number]* Submitting Physician: RAND CALZADA D.O. FINAL DIAGNOSIS 15 slides received from [place], [place] labeled [id number] from procedure dated 10/27/2021. A. Left breast, core needle biopsy (A1 and immunohistochemical stains) - Invasive ductal carcinoma, provisional Saffell grade 3 (please see comment). B. Left axillary tissue, core needle biopsy (B1 and immunohistochemical stains) - Metastatic carcinoma (please see comment). EDK/km 12/11/2021 COMMENT The invasive carcinoma has heterogenous morphology with some areas being intermediate grade while the majority of the carcinoma shows marked nuclear pleomorphism consistent with a provisional Saffell grade 3. Immunohistochemical stains received for review [...] 12/08/2021 Submitted by: RAND CALZADA D.O. Location: [facility] Diagnostic interpretation performed at [place] [address]. CLIA Number: [id number] [facility] DBT Breast - bilateral diagn ostic for implanton 12-08-2021 * * *Final Report* * * DATE OF EXAM: Dec 08 2021 11:44AM SSW 0627 - LOLIS DIAG W TAVON RICH / PROCEDURE REASON: multiple diagnoses * * * * Physician Interpretation * * * * RESULT: #[id number] - LOLIS DIAG W TAVON RICH #[id number] - LOLIS US BREAST LTD LT BILATERAL DIGITAL DIAGNOSTIC [...] in either breast. DIVISION OF RADIOLOGY Provider, [facility] - 12/08/2021 * * *Final Report* * * DATE OF EXAM: Dec 08 2021 11:44AM SS 0627 - LOLIS DIAG W TAVON RICH / PROCEDURE REASON: multiple diagnoses * * * * Physician Interpretation * * * * RESULT: #[id number] - LOLIS DIAG W TAVON RICH #[id number] - LOLIS US BREAST LTD BILATERAL DIGITAL DIAGNOSTIC MAMMOGRAM TOMOSYNTHESIS [...] Health, Family Medicine, and Medical/Surgical Oncology, the [facility] has carefully reviewed the data and [...] with annual screenin (more content not included)... [facility] Radiology Study observation (narrative) [facility] No Panel InformationOrdered By: [facility] Provider on 12-08-2021 [facility] US Breast - left limitedon 0 12-08-2021 * * *Final Report* * * DATE OF EXAM: Dec 08 2021 11:44AM [facility] 0593 - LOLIS US BREAST LTD LT / PROCEDURE REASON: multiple diagnoses * * * * Physician Interpretation * * * * RESULT: #[id number] - LOLIS DIAG W TAVON RICH #[id number] - LOLIS US BREAST LTD LT BILATERAL DIGITAL DIAGNOSTIC [...] in either breast. DIVISION OF RADIOLOGY Provider, [facility] - 12/08/2021 * * *Final Report* * * DATE OF EXAM: Dec 08 2021 11:44AM [facility] 0593 - LOLIS US BREAST LTD LT / PROCEDURE REASON: multiple diagnoses * * * * Physician Interpretation * * * * RESULT: #[id number] - LOLIS DIAG W TAVON RICH #[id number] - [facility] US BREAST [...] Health, Family Medicine, and Medical/Surgical Oncology, the [facility] has carefully reviewed the data and [...] with annual screeni (more content not included)... [facility] Radiology Study observation (narrative) [facility] Absolute lymphocyte counton 11-02-2021 Lymphocytes Auto (Unsp spec) [#/Vol] 2.42 10*3/uL 0.83-4.51 [facility] Work Phone: Basophil percentageon 2021 Basophils/100 WBC (Bld) 0.7 % 0-1 [facility] Work Phone: [phone] Bilirubin [Mass/Vol] 0.40 mg/dL 0.20-1.00 [facility] Work Phone: Comment on above: For patients on eltr ombopag therapy, use of Dimension [place] TBIL is not recommended. Chloride [Moles/Vol] 107 mmol/L 98-107 [facility] Work Phone: Eosinophils/100 WBC (Bld) 1.9 % 0-5 [facility] Work Phone: [phone] Glucose [Mass/Vol] 105 mg/dL 74-106 [facility] Work Phone: Comment on above: Fasting Glucose resu lt from 100 to 125 mg/dL suggests IMPAIRED HOMEOSTASIS per A.D.A. criteria. Neutrophils (Bld) [#/Vol] 3.8 10*3/uL 2.0-7.7 [facility] Work Phone: Neutrophils/100 WBC (Bld) 54.4 % 47-70 [facility] Work Phone: [phone] Potassium [Moles/Vol] 4.7 mmol/L 3.5-5.1 [facility] Work Phone: [phone] Protein [Mass/Vol] 7.0 g/dL 6.4-8.2 [facility] Work Phone: [phone] Sodium [Moles/Vol] 141 mmol/L 136-145 [facility] Work Phone: WBC (Bld) [#/Vol] 6.9 10*3/uL 4.4-11.0 [facility] Work Phone: Blood erythrocytes count (nu mber/volume)on 11-02-2021 RBC (Bld) [#/Vol] 4.15 10*6/uL 4.2-5.4 [facility] Work Phone: Blood hemoglobin measurement (mass/volume)on 11-02-2021 Hemoglobin (Bld) [Mass/Vol] 12.8 g/dL 12.0-15.0 [facility] Work Phone: Blood lymphocytes/100 leukoc yteson 11-02-2021 Lymphocytes/100 WBC (Bld) 35.1 % 19-41 [facility] Work Phone: Blood monocytes/100 leukocyt eson 11-02-2021 Monocytes/100 WBC (Bld) 7.5 % 0-10 [facility] Work Phone: Blood platelet mean volumeon 11-02-2021 Platelet mean volume (Bld) [Entitic vol] 8.3 fL 6.2-12.0 [facility] Work Phone: Determination of erythrocyte mean corpuscular volume (MCV)on 11-02-2021 MCV (RBC) [Entitic vol] 97.3 fL 81-99 [facility] Work Phone: Hematocrit Auto (Bld) [Volum e fraction]on 11-02-2021 Hematocrit (Bld) [Volume fraction] 40.4 % 37-47 [facility] Work Phone: Laboratory - Chemistry and C hemistry - challengeon 11-02-2021 ALP [Catalytic activity/Vol] 73 U/L 45-117 [facility] Work Phone: ALT [Catalytic activity/Vol] 19 U/L 13-56 [facility] Work Phone: CO2 [Moles/Vol] 29.0 mmol/L 21.0-32.0 [facility] Work Phone: Globulin (S) [Mass/Vol] 3.5 g/dL 2.2-4.2 [facility] Work Phone: Urea nitrogen/Creatinine [Mass ratio] 26.8 mg/mg 10-20 [facility] Work Phone: Laboratory - Hematology and Cell countson 11-02-2021 Erythrocyte distribution width (RBC) [Entitic vol] 47.5 fL 35.1-43.9 [facility] Work Phone: Erythrocyte distribution width (RBC) [Ratio] 13.2 % 11.6-14.6 [facility] Work Phone: Immature granulocytes/100 WBC (Bld) 0.400 % 0.0-0.9 [facility] Work Phone: Comment on above: IG% - Immature Granu locytes (promyelocytes, myelocytes and metamyelocytes) > 1% indicates that a LEFT SHIFT is Present. MCH (RBC) [Entitic mass] 30.8 pg 27.0-32.0 [facility] Work Phone: Nucleated RBC/100 WBC (Bld) [Ratio] 0 % 0-5 [facility] Work Phone: MCHC Auto (RBC) [Mass/Vol]on 11-02-2021 MCHC (RBC) [Mass/Vol] 31.7 g/dL 32-36 [facility] Work Phone: No Panel Informationon 11-02 Estimated GFR (MDRD) Amer 103 mL/min >60 [facility] Work Phone: Comment on above: GFR Calc Estimated GFR (MDRD) Non-Af Amer 85 mL/min >60 [facility] Work Phone: Comment on above: Non- GFR Calc Platelets bldon 11-02-2021 Platelets (Bld) [#/Vol] 248 10*3/uL 150-450 [facility] Work Phone: Serum or plasma albumin rbandan urement (mass/volume)on 11-02-2021 Albumin [Mass/Vol] 3.5 g/dL 3.2-5.0 [facility] Work Phone: Serum or plasma albumin/glob ulin mass ratioon 11-02-2021 Albumin/Globulin [Mass ratio] 1.0 {ratio} 0.9-2.4 [facility] Work Phone: Serum or plasma calcium brandan urement (mass/volume)on 11-02-2021 Calcium [Mass/Vol] 9.1 mg/dL 8.5-10.1 [facility] Work Phone: Serum or plasma creatinine m easurement (mass/volume)on 11-02-2021 Creatinine [Mass/Vol] 0.71 mg/dL 0.55-1.02 [facility] Work Phone: Comment on above: The validity of the calculated GFR & GFRAA in patients over 70 years has not been determined. Clinical correlation is essential. Serum or plasma urea nitroge n measurement (mass/volume)on 11-02-2021 Urea nitrogen [Mass/Vol] 19 mg/dL 7-18 [facility] Work Phone: Thin prep Papanicolaou smear with manual screeningon 11-02-2021 Thin prep Papanicolaou smear with manual screening 15 U/L 15-37 [facility] Work Phone: Thin prep Papanicolaou smear with manual screening 5 5-15 [facility] Work Phone: Thin prep Papanicolaou smear with manual screening 183 U/L 84-246 [facility] Work Phone: .Auto Diffon 12-07-2020 Ammonia (P) [Mass/Vol] 0.50 10 3/mcL Normal 0.09-1.40 [facility] ([place]) Comment on above: Performed By: #### C DANETTE, CHIP, BONIFACIO, TROPHS, CMP, PBNP, GFR #### [address] [address] Basophils (Bld) [#/Vol] 0.10 10 3/mcL Normal 0.00-0.27 [facility] ([place]) Comment on above: Performed By: #### C BC, CHIP, ANEU, TROPHS, CMP, PBNP, GFR #### [address] [address] Basophils/100 WBC (Bld) 0.6 % Normal 0.0-2.5 [facility] ([place]) Comment on above: Performed By: #### C BC, ADIFF, ANEU, TROPHS, CMP, PBNP, GFR #### [address] [address] Eosinophils (Bld) [#/Vol] 0.10 10 3/mcL Normal 0.00-0.65 [facility] ([place]) Comment on above: Performed By: #### C BC, ADIFF, ANEU, TROPHS, CMP, PBNP, GFR #### [address] [address] Eosinophils/100 WBC (Bld) 1.1 % Normal 0.0-6.0 [facility] ([place]) Comment on above: Performed By: #### C BC, ADIFF, ANEU, TROPHS, CMP, PBNP, GFR #### [address] [address] Lymphocytes (Bld) [#/Vol] 1.30 10 3/mcL Normal 0.90-4.32 [facility] ([place]) Comment on above: Performed By: #### C BC, ADIFF, ANEU, TROPHS, CMP, PBNP, GFR #### [address] [address] Lymphocytes/100 WBC (Bld) 14.7 % Low 20.0-40.0 [facility] ([place]) Comment on above: Performed By: #### C BC, ADIFF, ANEU, TROPHS, CMP, PBNP, GFR #### [address] [address] Monocytes/100 WBC (Bld) 5.8 % Normal 2.0-13.0 [facility] ([place]) Comment on above: Performed By: #### C BC, ADIFF, ANEU, TROPHS, CMP, PBNP, GFR #### [address] [address] Neutrophils/100 WBC (Bld) 77.8 % High 50.0-75.0 [facility] ([place]) Comment on above: Performed By: #### C BC, ADIFF, ANEU, TROPHS, CMP, PBNP, GFR #### [address] [address] .GFRon 12-07-2020 GFR >60 Normal [facility] ([place] Comment on above: Result Comment: GFR Population [...] ADIFF, ANEU, TROPHS, CMP, PBNP, GFR #### [address] [address] GFR Non- >60 Normal [facility] ([place] Comment on above: Result Comment: GFR Population [...] ADIFF, ANEU, TROPHS, CMP, PBNP, GFR #### [address] [address] .NEUABSon 12-07-2020 Neutrophils (Bld) [#/Vol] 6.70 10 3/mcL Normal 2.25-8.10 [facility] ([place] Comment on above: Performed By: #### C BC, ADIFF, ANEU, TROPHS, CMP, PBNP, GFR #### [address] [address] BMPon 12-07-2020 Calcium [Mass/Vol] 8.7 mg/dL Normal 8.7-10.4 [facility] [place] Comment on above: Result Comment: No te - New Reference Range in effect 20 Performed By: #### C BC, ADIFF, ANEU, TROPHS, CMP, PBNP, GFR #### [address] [address] Chloride [Moles/Vol] 109 mmol/L Normal 98-110 [facility] ([place] Comment on above: Performed By: #### C BC, ADIFF, ANEU, TROPHS, CMP, PBNP, GFR #### [address] [address] CO2 [Moles/Vol] 25 mmol/L Normal 22-32 [facility] ([place] Comment on above: Performed By: #### C BC, ADIFF, ANEU, TROPHS, CMP, PBNP, GFR #### [address] [address] Creatinine [Mass/Vol] 0.59 mg/dL Normal 0.50-1.20 [facility] ([place]) Comment on above: Performed By: #### C BC, ADIFF, ANEU, TROPHS, CMP, PBNP, GFR #### [address] [address] Electrolyte Balance 2.0 mEq/L Low 4.0-15.0 Count includes the [facility] ([place]) Comment on above: Performed By: #### C BC, ADIFF, ANEU, TROPHS, CMP, PBNP, GFR #### [address] [address] Glucose [Mass/Vol] 111 mg/dL Normal 82-115 [facility] [place] Comment on above: Performed By: #### C BC, ADIFF, ANEU, TROPHS, CMP, PBNP, GFR #### [address] [address] Potassium [Moles/Vol] 3.5 mmol/L Normal 3.5-5.0 [facility] ([place] Comment on above: Performed By: #### C BC, ADIFF, ANEU, TROPHS, CMP, PBNP, GFR #### [address] [address] Sodium [Moles/Vol] 136 mmol/L Normal 136-145 [facility] [place] Comment on above: Performed By: #### C BC, ADIFF, ANEU, TROPHS, CMP, PBNP, GFR #### [address] [address] Urea nitrogen [Mass/Vol] 7.0 mg/dL Low 8.0-22.0 [facility] ([place] Comment on above: Performed By: #### C BC, ADIFF, ANEU, TROPHS, CMP, PBNP, GFR #### [address] [address] Urea nitrogen/Creatinine [Mass ratio] 11.9 ratio Normal 10.0-22.0 [facility] ([place] Comment on above: Performed By: #### C BC, ADIFF, ANEU, TROPHS, CMP, PBNP, GFR #### [address] [address] CBCon 12-07-2020 Erythrocyte distribution width (RBC) [Ratio] 17.6 % High 11.5-15.5 [facility] ([place] Comment on above: Performed By: #### C BC, ADIFF, ANEU, TROPHS, CMP, PBNP, GFR #### [address] [address] Hematocrit (Bld) [Volume fraction] 31.5 % Low 34.0-46.0 [facility] ([place] Comment on above: Performed By: #### C BC, ADIFF, ANEU, TROPHS, CMP, PBNP, GFR #### [address] [address] Hemoglobin (Bld) [Mass/Vol] 10.4 G/dL Low 12.0-16.0 [facility] ([place] Comment on above: Performed By: #### C BC, ADIFF, ANEU, TROPHS, CMP, PBNP, GFR #### [address] [address] MCH (RBC) [Entitic mass] 31.3 pg Normal 27.0-33.0 [facility] ([place] Comment on above: Performed By: #### C BC, ADIFF, ANEU, TROPHS, CMP, PBNP, GFR #### [address] [address] MCHC (RBC) [Mass/Vol] 33.2 G/dL Normal 32.0-36.0 [facility] ([place] Comment on above: Performed By: #### C BC, ADIFF, ANEU, TROPHS, CMP, PBNP, GFR #### [address] [address] MCV (RBC) [Entitic vol] 94.2 fL Normal 80.0-99.0 [facility] ([place] Comment on above: Performed By: #### C BC, ADIFF, ANEU, TROPHS, CMP, PBNP, GFR #### [address] [address] Platelet mean volume (Bld) [Entitic vol] 6.5 fL Low 6.6-10.5 [facility] ([place] Comment on above: Performed By: #### C BC, ADIFF, ANEU, TROPHS, CMP, PBNP, GFR #### [address] [address] Platelets (Bld) [#/Vol] 234 10 3/mcL Normal 150-450 [facility] ([place] Comment on above: Performed By: #### C BC, ADIFF, ANEU, TROPHS, CMP, PBNP, GFR #### [address] [address] RBC (Bld) [#/Vol] 3.34 10 6/mcL Low 4.10-5.30 [facility] ([place] Comment on above: Performed By: #### C BC, ADIFF, ANEU, TROPHS, CMP, PBNP, GFR #### [address] [address] WBC (Bld) [#/Vol] 8.60 10 3/mcL Normal 4.50-10.80 [facility] ([place] Comment on above: Performed By: #### C BC, ADIFF, ANEU, TROPHS, CMP, PBNP, GFR #### [address] [address] MGon 12-07-2020 Magnesium [Mass/Vol] 1.5 mg/dL Low 1.6-2.4 [facility] ([place] Comment on above: Performed By: #### C BC, ADIFF, ANEU, TROPHS, CMP, PBNP, GFR #### [address] [address] .Auto Diffon 12-06-2020 Ammonia (P) [Mass/Vol] 0.40 10 3/mcL Normal 0.09-1.40 [facility] ([place] Comment on above: Performed By: #### C BC, ADIFF, ANEU, TROPHS, CMP, PBNP, GFR #### [place] [id number] Basophils (Bld) [#/Vol] 0.10 10 3/mcL Normal 0.00-0.27 [facility] ([place] Comment on above: Performed By: #### C BC, ADIFF, ANEU, TROPHS, CMP, PBNP, GFR #### [address] [address] Basophils/100 WBC (Bld) 1.0 % Normal 0.0-2.5 [facility] ([place] Comment on above: Performed By: #### C BC, ADIFF, ANEU, TROPHS, CMP, PBNP, GFR #### [address] [address] Eosinophils (Bld) [#/Vol] 0.10 10 3/mcL Normal 0.00-0.65 [facility] ([place] Comment on above: Performed By: #### C BC, ADIFF, ANEU, TROPHS, CMP, PBNP, GFR #### [address] [address] Eosinophils/100 WBC (Bld) 2.2 % Normal 0.0-6.0 [facility] ([place] Comment on above: Performed By: #### C BC, ADIFF, ANEU, TROPHS, CMP, PBNP, GFR #### [address] [address] Lymphocytes (Bld) [#/Vol] 1.80 10 3/mcL Normal 0.90-4.32 [facility] ([place] Comment on above: Performed By: #### C BC, ADIFF, ANEU, TROPHS, CMP, PBNP, GFR #### [address] [address] Lymphocytes/100 WBC (Bld) 33.3 % Normal 20.0-40.0 [facility] ([place]) Comment on above: Performed By: #### C BC, ADIFF, ANEU, TROPHS, CMP, PBNP, GFR #### [address] [address] Monocytes/100 WBC (Bld) 7.0 % Normal 2.0-13.0 [facility] ([place] Comment on above: Performed By: #### C BC, ADIFF, ANEU, TROPHS, CMP, PBNP, GFR #### [address] [address] Neutrophils/100 WBC (Bld) 56.5 % Normal 50.0-75.0 [facility] ([place] Comment on above: Performed By: #### C BC, ADIFF, ANEU, TROPHS, CMP, PBNP, GFR #### [address] [address] .GFRon 12-06-2020 GFR >60 Normal [facility] ([place]) Comment on above: Result Comment: GFR [...] ADIFF, ANEU, TROPHS, CMP, PBNP, GFR #### [address] [address] GFR Non- >60 Normal [facility] ([place] Comment on above: Result Comment: GFR Population [...] ADIFF, ANEU, TROPHS, CMP, PBNP, GFR #### [place] [address] .Morphon 12-06-2020 Anisocytosis Ql (Bld) Slight [facility] ([place]) Comment on above: Performed By: #### C BC, ADIFF, ANEU, TROPHS, CMP, PBNP, GFR #### [address] [address] Ovalocytes Few Normal [facility] ([place] Comment on above: Performed By: #### C BC, ADIFF, ANEU, TROPHS, CMP, PBNP, GFR #### [address] [address] Platelets (Bld) [#/Vol] Normal [facility] ([place]) Comment on above: Performed By: #### C BC, ADIFF, ANEU, TROPHS, CMP, PBNP, GFR #### [address] [address] Poik Slight [facility] ([place]) Comment on above: Performed By: #### C BC, ADIFF, ANEU, TROPHS, CMP, PBNP, GFR #### [address] [address] .NEUABSon 12-06-2020 Neutrophils (Bld) [#/Vol] 3.10 10 3/mcL Normal 2.25-8.10 [facility] ([place]) Comment on above: Performed By: #### C BC, ADIFF, ANEU, TROPHS, CMP, PBNP, GFR #### [address] [address] BMPon 12-06-2020 Calcium [Mass/Vol] 8.6 mg/dL Low 8.7-10.4 [facility] [place] Comment on above: Result Comment: No te - New Reference Range in effect 20 Performed By: #### C BC, ADIFF, ANEU, TROPHS, CMP, PBNP, GFR #### [place] [address] Chloride [Moles/Vol] 109 mmol/L Normal 98-110 [facility] ([place] Comment on above: Performed By: #### C BC, ADIFF, ANEU, TROPHS, CMP, PBNP, GFR #### [place] [address] CO2 [Moles/Vol] 26 mmol/L Normal 22-32 [facility] ([place] Comment on above: Performed By: #### C BC, ADIFF, ANEU, TROPHS, CMP, PBNP, GFR #### [place] [address] Creatinine [Mass/Vol] 0.64 mg/dL Normal 0.50-1.20 [facility] ([place] Comment on above: Performed By: #### C BC, ADIFF, ANEU, TROPHS, CMP, PBNP, GFR #### [place] [address] Electrolyte Balance 5.0 mEq/L Normal 4.0-15.0 Count includes the [facility] ([place]) Comment on above: Performed By: #### C BC, ADIFF, ANEU, TROPHS, CMP, PBNP, GFR #### [address] [address] Glucose [Mass/Vol] 73 mg/dL Low 82-115 [facility] [place] Comment on above: Performed By: #### C BC, ADIFF, ANEU, TROPHS, CMP, PBNP, GFR #### [address] [address] Potassium [Moles/Vol] 3.8 mmol/L Normal 3.5-5.0 [facility] ([place] Comment on above: Performed By: #### C BC, ADIFF, ANEU, TROPHS, CMP, PBNP, GFR #### [address] [address] Sodium [Moles/Vol] 140 mmol/L Normal 136-145 [facility] [place] Comment on above: Performed By: #### C BC, ADIFF, ANEU, TROPHS, CMP, PBNP, GFR #### [address] [address] Urea nitrogen [Mass/Vol] 9.0 mg/dL Normal 8.0-22.0 [facility] ([place]) Comment on above: Performed By: #### C BC, ADIFF, ANEU, TROPHS, CMP, PBNP, GFR #### [address] [address] Urea nitrogen/Creatinine [Mass ratio] 14.1 ratio Normal 10.0-22.0 [facility] ([place]) Comment on above: Performed By: #### C BC, ADIFF, ANEU, TROPHS, CMP, PBNP, GFR #### [address] [address] CBCon 12-06-2020 Erythrocyte distribution width (RBC) [Ratio] 17.6 % High 11.5-15.5 [facility] ([place]) Comment on above: Performed By: #### C BC, ADIFF, ANEU, TROPHS, CMP, PBNP, GFR #### [address] [address] Hematocrit (Bld) [Volume fraction] 28.3 % Low 34.0-46.0 [facility] ([place] Comment on above: Performed By: #### C BC, ADIFF, ANEU, TROPHS, CMP, PBNP, GFR #### [place] [id number] Hemoglobin (Bld) [Mass/Vol] 9.3 G/dL Low 12.0-16.0 [facility] ([place]) Comment on above: Performed By: #### C BC, ADIFF, ANEU, TROPHS, CMP, PBNP, GFR #### [address] [address] MCH (RBC) [Entitic mass] 30.6 pg Normal 27.0-33.0 [facility] ([place] Comment on above: Performed By: #### C BC, ADIFF, ANEU, TROPHS, CMP, PBNP, GFR #### [place] [address] MCHC (RBC) [Mass/Vol] 32.8 G/dL Normal 32.0-36.0 [facility] ([place] Comment on above: Performed By: #### C BC, ADIFF, ANEU, TROPHS, CMP, PBNP, GFR #### [place] [address] MCV (RBC) [Entitic vol] 93.3 fL Normal 80.0-99.0 [facility] ([place]) Comment on above: Performed By: #### C BC, ADIFF, ANEU, TROPHS, CMP, PBNP, GFR #### [place] [id number] Platelet mean volume (Bld) [Entitic vol] 6.5 fL Low 6.6-10.5 [facility] ([place]) Comment on above: Performed By: #### C BC, ADIFF, ANEU, TROPHS, CMP, PBNP, GFR #### [place] [id number] Platelets (Bld) [#/Vol] 207 10 3/mcL Normal 150-450 [facility] ([place]) Comment on above: Performed By: #### C BC, ADIFF, ANEU, TROPHS, CMP, PBNP, GFR #### [address] [address] RBC (Bld) [#/Vol] 3.03 10 6/mcL Low 4.10-5.30 [facility] ([place]) Comment on above: Performed By: #### C BC, ADIFF, ANEU, TROPHS, CMP, PBNP, GFR #### [facility] [address] [place] [address] WBC (Bld) [#/Vol] 5.40 10 3/mcL Normal 4.50-10.80 [facility] ([place]) Comment on above: Performed By: #### C BC, ADIFF, ANEU, TROPHS, CMP, PBNP, GFR #### [facility] [address] [place] [address] [id number] 12-06-2020 COVID-19 Int Normal [facility] ([place]) Comment on above: Result Comment: This test is being used under the FDA EUA procedure. This assay has been validated in the [facility] for use with nasopharyngeal and oropharyngeal specimens in [facility] or [facility]. If a non-validated specimen or [...] in consultation with public health authorities. The [employer] SARS-CoV-2 Reagents for [employer] is a real-time RT-PCR test intended for the qualitative detection of nucleic acid from the SARS-CoV-2 in nasopharyngeal and oropharyngeal swab samples. COVID-19 Int Performed By: #### C BC, ADIFF, ANEU, TROPHS, CMP, PBNP, GFR #### [place] [address] COVID-19 Result Negative Normal Negative [facility] ([place]) Comment on above: Performed By: #### C BC, ADIFF, ANEU, TROPHS, CMP, PBNP, GFR #### [place] [address] COVID-19 Source Nasopharyngeal [facility] ([place]) Comment on above: Performed By: #### C BC, ADIFF, ANEU, TROPHS, CMP, PBNP, GFR #### [place] [address] Date of Onset [id number] [facility] ([place]) Comment on above: Performed By: #### C BC, ADIFF, ANEU, TROPHS, CMP, PBNP, GFR #### [place] [address] Employed in [employer] [facility] [place] Comment on above: Performed By: #### C BC, ADIFF, ANEU, TROPHS, CMP, PBNP, GFR #### [place] [address] First Test Unknown [facility] ([place]) Comment on above: Performed By: #### C BC, ADIFF, ANEU, TROPHS, CMP, PBNP, GFR #### [place] [address] Hospitalized Yes [facility] ([place]) Comment on above: Performed By: #### C BC, ADIFF, ANEU, TROPHS, CMP, PBNP, GFR #### [place] [address] ICU No [facility] ([place]) Comment on above: Performed By: #### C BC, ADIFF, ANEU, TROPHS, CMP, PBNP, GFR #### [place] [address] Not [facility] ([place]) Comment on above: Performed By: #### C BC, ADIFF, ANEU, TROPHS, CMP, PBNP, GFR #### [address] [address] Resides in Congregate Care Setting Yes Normal [facility] ([place]) Comment on above: Performed By: #### C BC, ADIFF, ANEU, TROPHS, CMP, PBNP, GFR #### [address] [address] Symptomatic as Defined by CDC No [facility] ([place]) Comment on above: Performed By: #### C BC, ADIFF, ANEU, TROPHS, CMP, PBNP, GFR #### [address] [address] XR SMALL BOWEL W/ SERIAL ARTHUR MSon [...] Date: 12/06/2020 4:35:05 PM Ordering Provider:Viviana Elliott [facility] ([place]) XR UPPER GIon 12-06-2020 XR UPPER GI [...] Date: 12/06/2020 11:57:18 AM Ordering Provider:Viviana Elliott [facility] ([place]) .GFRon 12-05-2020 GFR >60 Normal [facility] ([place]) Comment on above: Result Comment: GFR Population [...] ADIFF, ANEU, TROPHS, CMP, PBNP, GFR #### [place] [address] GFR Non- >60 Normal [facility] ([place]) Comment on above: Result Comment: GFR Population [...] ADIFF, ANEU, TROPHS, CMP, PBNP, GFR #### [address] [address] BMPon 12-05-2020 Calcium [Mass/Vol] 8.2 mg/dL Low 8.7-10.4 [facility] ([place]) Comment on above: Result Comment: No te - New Reference Range in effect 20 Performed By: #### C BC, ADIFF, ANEU, TROPHS, CMP, PBNP, GFR #### [address] [address] Chloride [Moles/Vol] 108 mmol/L Normal 98-110 [facility] ([place]) Comment on above: Performed By: #### C BC, ADIFF, ANEU, TROPHS, CMP, PBNP, GFR #### [address] [address] CO2 [Moles/Vol] 25 mmol/L Normal 22-32 [facility] ([place]) Comment on above: Performed By: #### C BC, ADIFF, ANEU, TROPHS, CMP, PBNP, GFR #### [address] [address] Creatinine [Mass/Vol] 0.58 mg/dL Normal 0.50-1.20 [facility] ([place]) Comment on above: Performed By: #### C BC, ADIFF, ANEU, TROPHS, CMP, PBNP, GFR #### [address] [address] Electrolyte Balance 6.0 mEq/L Normal 4.0-15.0 Count includes the [facility] ([place]) Comment on above: Performed By: #### C BC, ADIFF, ANEU, TROPHS, CMP, PBNP, GFR #### [address] [address] Glucose [Mass/Vol] 63 mg/dL Low 82-115 [facility] [place]) Comment on above: Performed By: #### C BC, ADIFF, ANEU, TROPHS, CMP, PBNP, GFR #### [address] [address] Potassium [Moles/Vol] 3.4 mmol/L Low 3.5-5.0 [facility] ([place]) Comment on above: Performed By: #### C BC, ADIFF, ANEU, TROPHS, CMP, PBNP, GFR #### [address] [address] Sodium [Moles/Vol] 139 mmol/L Normal 136-145 [facility] ([place]) Comment on above: Performed By: #### C BC, ADIFF, ANEU, TROPHS, CMP, PBNP, GFR #### [address] [address] Urea nitrogen [Mass/Vol] 12.0 mg/dL Normal 8.0-22.0 [facility] ([place]) Comment on above: Performed By: #### C BC, ADIFF, ANEU, TROPHS, CMP, PBNP, GFR #### [address] [address] Urea nitrogen/Creatinine [Mass ratio] 20.7 ratio Normal 10.0-22.0 [facility] ([place]) Comment on above: Performed By: #### C BC, ADIFF, ANEU, TROPHS, CMP, PBNP, GFR #### [address] [address] .GFRon 12-03-2020 GFR >60 Normal [facility] ([place]) Comment on above: Result Comment: GFR Population [...] ADIFF, ANEU, TROPHS, CMP, PBNP, GFR #### [address] [address] GFR Non- >60 Normal [facility] ([place]) Comment on above: Result Comment: GFR Population [...] ADIFF, ANEU, TROPHS, CMP, PBNP, GFR #### [address] [address] .Manual Diffon 12-03-2020 Basophil %, Manual 0.0 % Normal 0.0-2.5 [facility] ([place]) Comment on above: Performed By: #### C BC, ADIFF, ANEU, TROPHS, CMP, PBNP, GFR #### [address] [address] Basophil, Abs Manual 0.00 10 3/mcL Normal 0.00-0.27 [facility] ([place]) Comment on above: Performed By: #### C BC, ADIFF, ANEU, TROPHS, CMP, PBNP, GFR #### [address] [address] Cells Counted 100 Normal [facility] ([place]) Comment on above: Performed By: #### C BC, ADIFF, ANEU, TROPHS, CMP, PBNP, GFR #### [address] [address] Eosinophil %, Manual 1.0 % Normal 0.0-6.0 [facility] ([place]) Comment on above: Performed By: #### C BC, ADIFF, ANEU, TROPHS, CMP, PBNP, GFR #### [address] [address] Eosinophil, Abs Manual 0.07 10 3/mcL Normal 0.00-0.65 [facility] ([place]) Comment on above: Performed By: #### C BC, ADIFF, ANEU, TROPHS, CMP, PBNP, GFR #### [address] [address] Lymphocyte %, Manual 28.0 % Normal 20.0-40.0 [facility] ([place]) Comment on above: Performed By: #### C BC, ADIFF, ANEU, TROPHS, CMP, PBNP, GFR #### [address] [address] Lymphocyte, Abs Manual 2.10 10 3/mcL Normal 0.90-4.32 [facility] ([place]) Comment on above: Performed By: #### C BC, ADIFF, ANEU, TROPHS, CMP, PBNP, GFR #### [address] [address] Monocyte %, Manual 6.0 % Normal 2.0-13.0 [facility] ([place]) Comment on above: Performed By: #### C BC, ADIFF, ANEU, TROPHS, CMP, PBNP, GFR #### [address] [address] Monocyte, Abs Manual 0.45 10 3/mcL Normal 0.09-1.40 [facility] ([place]) Comment on above: Performed By: #### C BC, ADIFF, ANEU, TROPHS, CMP, PBNP, GFR #### [address] [address] Neutrophil %, Manual 65.0 % Normal 50.0-75.0 [facility] ([place]) Comment on above: Performed By: #### C BC, ADIFF, ANEU, TROPHS, CMP, PBNP, GFR #### [place] [address] Neutrophil, Abs Manual 4.88 10 3/mcL Normal 2.25-8.10 [facility] ([place]) Comment on above: Performed By: #### C BC, ADIFF, ANEU, TROPHS, CMP, PBNP, GFR #### [place] [address] Nucleated RBC (Bld) [#/Vol] 1.0 /100 WBC Normal [facility] ([place]) Comment on above: Performed By: #### C BC, ADIFF, ANEU, TROPHS, CMP, PBNP, GFR #### [place] [address] .Morphon 12-03-2020 Anisocytosis Ql (Bld) Slight Normal [facility] ([place]) Comment on above: Performed By: #### C BC, ADIFF, ANEU, TROPHS, CMP, PBNP, GFR #### [place] [address] Ovalocytes Few Normal [facility] ([place]) Comment on above: Performed By: #### C BC, ADIFF, ANEU, TROPHS, CMP, PBNP, GFR #### [place] [address] Platelets (Bld) [#/Vol] Normal Normal [facility] ([place]) Comment on above: Performed By: #### C BC, ADIFF, ANEU, TROPHS, CMP, PBNP, GFR #### [place] [address] Poik Slight Normal [facility] ([place]) Comment on above: Performed By: #### C BC, ADIFF, ANEU, TROPHS, CMP, PBNP, GFR #### [place] [address] BMPon 12-03-2020 Calcium [Mass/Vol] 8.9 mg/dL Normal 8.7-10.4 [facility] ([place]) Comment on above: Order Comment: Rachid kiser for 0501 the morning of patient admission. Result Comment: No te - New Reference Range in effect 20 Performed By: #### C BC, ADIFF, ANEU, TROPHS, CMP, PBNP, GFR #### [address] [address] Chloride [Moles/Vol] 112 mmol/L High 98-110 [facility] ([place]) Comment on above: Order Comment: Routi ne for 0501 the morning of patient admission. Performed By: #### C BC, ADIFF, ANEU, TROPHS, CMP, PBNP, GFR #### [address] [address] CO2 [Moles/Vol] 22 mmol/L Normal 22-32 [facility] ([place]) Comment on above: Order Comment: Routi ne for 0501 the morning of patient admission. Performed By: #### C BC, ADIFF, ANEU, TROPHS, CMP, PBNP, GFR #### [address] [address] Creatinine [Mass/Vol] 0.59 mg/dL Normal 0.50-1.20 [facility] ([place]) Comment on above: Order Comment: Routi ne for 0501 the morning of patient admission. Performed By: #### C BC, ADIFF, ANEU, TROPHS, CMP, PBNP, GFR #### [place] [id number] Electrolyte Balance 8.0 mEq/L Normal 4.0-15.0 Count includes the [facility] ([place]) Comment on above: Order Comment: Routi ne for 0501 the morning of patient admission. Performed By: #### C BC, ADIFF, ANEU, TROPHS, CMP, PBNP, GFR #### [place] [phone] Glucose [Mass/Vol] 77 mg/dL Low 82-115 [facility] ([place]) Comment on above: Order Comment: Routi ne for 0501 the morning of patient admission. Performed By: #### C BC, ADIFF, ANEU, TROPHS, CMP, PBNP, GFR #### [address] [address] Potassium [Moles/Vol] 4.1 mmol/L Normal 3.5-5.0 [facility] ([place]) Comment on above: Order Comment: Routi ne for 0501 the morning of patient admission. Result Comment: Spec imen slightly hemolyzed. Performed By: #### C BC, ADIFF, ANEU, TROPHS, CMP, PBNP, GFR #### [address] [address] Sodium [Moles/Vol] 142 mmol/L Normal 136-145 [facility] ([place]) Comment on above: Order Comment: Routi ne for 0501 the morning of patient admission. Performed By: #### C BC, ADIFF, ANEU, TROPHS, CMP, PBNP, GFR #### [address] [address] Urea nitrogen [Mass/Vol] 18.0 mg/dL Normal 8.0-22.0 [facility] ([place]) Comment on above: Order Comment: Routi ne for 0501 the morning of patient admission. Performed By: #### C BC, ADIFF, ANEU, TROPHS, CMP, PBNP, GFR #### [place] [phone] Urea nitrogen/Creatinine [Mass ratio] 30.5 ratio High 10.0-22.0 [facility] ([place]) Comment on above: Order Comment: Routi ne for 0501 the morning of patient admission. Performed By: #### C BC, ADIFF, ANEU, TROPHS, CMP, PBNP, GFR #### [address] [address] CBCon 12-03-2020 Erythrocyte distribution width (RBC) [Ratio] 17.3 % High 11.5-15.5 [facility] ([place]) Comment on above: Order Comment: Routi ne for 0501 the morning of patient admission. Performed By: #### C BC, ADIFF, ANEU, TROPHS, CMP, PBNP, GFR #### [address] [address] Hematocrit (Bld) [Volume fraction] 33.1 % Low 34.0-46.0 [facility] ([place]) Comment on above: Order Comment: Routi ne for 0501 the morning of patient admission. Performed By: #### C BC, ADIFF, ANEU, TROPHS, CMP, PBNP, GFR #### [place] [phone] Hemoglobin (Bld) [Mass/Vol] 11.1 G/dL Low 12.0-16.0 [facility] ([place]) Comment on above: Order Comment: Routi ne for 0501 the morning of patient admission. Performed By: #### C BC, ADIFF, ANEU, TROPHS, CMP, PBNP, GFR #### [place] [phone] MCH (RBC) [Entitic mass] 31.4 pg Normal 27.0-33.0 [facility] ([place]) Comment on above: Order Comment: Routi ne for 0501 the morning of patient admission. Performed By: #### C BC, ADIFF, ANEU, TROPHS, CMP, PBNP, GFR #### [place] [phone] MCHC (RBC) [Mass/Vol] 33.6 G/dL Normal 32.0-36.0 [facility] ([place]) Comment on above: Order Comment: Routi ne for 0501 the morning of patient admission. Performed By: #### C BC, ADIFF, ANEU, TROPHS, CMP, PBNP, GFR #### [place] [phone] MCV (RBC) [Entitic vol] 93.5 fL Normal 80.0-99.0 [facility] ([place]) Comment on above: Order Comment: Routi ne for 0501 the morning of patient admission. Performed By: #### C BC, ADIFF, ANEU, TROPHS, CMP, PBNP, GFR #### [place] [phone] Platelet mean volume (Bld) [Entitic vol] 6.4 fL Low 6.6-10.5 [facility] ([place]) Comment on above: Order Comment: Routi ne for 0501 the morning of patient admission. Performed By: #### C BC, ADIFF, ANEU, TROPHS, CMP, PBNP, GFR #### [place] [id number] Platelets (Bld) [#/Vol] 242 10 3/mcL Normal 150-450 [facility] ([place]) Comment on above: Order Comment: Kelvini ne for 0501 the morning of patient admission. Performed By: #### C BC, ADIFF, ANEU, TROPHS, CMP, PBNP, GFR #### [place] [address] RBC (Bld) [#/Vol] 3.54 10 6/mcL Low 4.10-5.30 [facility] ([place]) Comment on above: Order Comment: Routi ne for 0501 the morning of patient admission. Performed By: #### C BC, ADIFF, ANEU, TROPHS, CMP, PBNP, GFR #### [place] [phone] WBC (Bld) [#/Vol] 7.50 10 3/mcL Normal 4.50-10.80 [facility] ([place]) Comment on above: Order Comment: Rachid ne for 0501 the morning of patient admission. Performed By: #### C BC, ADIFF, ANEU, TROPHS, CMP, PBNP, GFR #### [address] [address] .GFRon 12-02-2020 GFR >60 Normal [facility] ([place]) Comment on above: Result Comment: GFR Population [...] ADIFF, ANEU, TROPHS, CMP, PBNP, GFR #### [place] [address] GFR Non- >60 Normal [facility] ([place]) Comment on above: Result Comment: GFR Population [...] ADIFF, ANEU, TROPHS, CMP, PBNP, GFR #### [address] [address] BMPon 12-02-2020 Potassium [Moles/Vol] 4.6 mmol/L Normal 3.5-5.0 [facility] ([place]) Comment on above: Order Comment: Needs recollected - hemolyzed Performed By: #### C BC, ADIFF, ANEU, TROPHS, CMP, PBNP, GFR #### [address] [address] Calcium [Mass/Vol] 9.1 mg/dL Normal 8.7-10.4 [facility] [place] Comment on above: Order Comment: Needs recollected - hemolyzed Result Comment: No te - New Reference Range in effect 20 Performed By: #### C BC, ADIFF, ANEU, TROPHS, CMP, PBNP, GFR #### [address] [address] Chloride [Moles/Vol] 111 mmol/L High 98-110 [facility] ([place]) Comment on above: Order Comment: Needs recollected - hemolyzed Performed By: #### C BC, ADIFF, ANEU, TROPHS, CMP, PBNP, GFR #### [address] [address] CO2 [Moles/Vol] 21 mmol/L Low 22-32 [facility] ([place]) Comment on above: Order Comment: Needs recollected - hemolyzed Performed By: #### C BC, ADIFF, ANEU, TROPHS, CMP, PBNP, GFR #### [address] [address] Creatinine [Mass/Vol] 0.62 mg/dL Normal 0.50-1.20 [facility] ([place]) Comment on above: Order Comment: Needs recollected - hemolyzed Performed By: #### C BC, ADIFF, ANEU, TROPHS, CMP, PBNP, GFR #### [address] [address] Electrolyte Balance 11.0 mEq/L Normal 4.0-15.0 Count includes the [facility] ([place]) Comment on above: Order Comment: Needs recollected - hemolyzed Performed By: #### C BC, ADIFF, ANEU, TROPHS, CMP, PBNP, GFR #### [address] [address] Glucose [Mass/Vol] 83 mg/dL Normal 82-115 [facility] [place] Comment on above: Order Comment: Needs recollected - hemolyzed Performed By: #### C BC, ADIFF, ANEU, TROPHS, CMP, PBNP, GFR #### [address] [address] Sodium [Moles/Vol] 143 mmol/L Normal 136-145 [facility] [place]) Comment on above: Order Comment: Needs recollected - hemolyzed Performed By: #### C BC, ADIFF, ANEU, TROPHS, CMP, PBNP, GFR #### [address] [address] Urea nitrogen [Mass/Vol] 19.0 mg/dL Normal 8.0-22.0 [facility] ([place]) Comment on above: Order Comment: Needs recollected - hemolyzed Performed By: #### C BC, ADIFF, ANEU, TROPHS, CMP, PBNP, GFR #### [address] [address] Urea nitrogen/Creatinine [Mass ratio] 30.6 ratio High 10.0-22.0 [facility] ([place]) Comment on above: Order Comment: Needs recollected - hemolyzed Performed By: #### C BC, ADIFF, ANEU, TROPHS, CMP, PBNP, GFR #### [address] [address] [address] ABD/PELVIS W/ IV CONTRAST ONLYon 12-02-2020 [...] Date: 12/01/2020 11:39:07 PM Ordering Provider:Deep Cornejo [facility]) CT HEAD OR BRAIN W/O TEN Abrams 12-02-2020 CT HEAD OR BRAIN W/O [...] Date: 12/01/2020 11:16:36 PM Ordering Provider:Deep Cornejo [facility] ([place]) MGon 12-02-2020 Magnesium [Mass/Vol] 1.8 mg/dL Normal 1.6-2.4 [facility]) Comment on above: Performed By: #### C BC, ADIFF, ANEU, TROPHS, CMP, PBNP, GFR #### [address] [address] TROPHSon 12-02-2020 Troponin I High Sensitivity 14.15 ng/L Normal 0.00-34.00 [facility]) Comment on above: Performed By: #### C BC, ADIFF, ANEU, TROPHS, CMP, PBNP, GFR #### [address] [address] Troponin I High Sensitivity 18.06 ng/L Normal 0.00-34.00 [facility] ([place]) Comment on above: Performed By: #### T ROPHS #### [place] [id number] UAon 12-02-2020 Color (U) Yellow Normal [facility] ([place]) Comment on above: Performed By: #### C BC, ADIFF, ANEU, TROPHS, CMP, PBNP, GFR #### [place] [address] Glucose (U) [Mass/Vol] Negative Normal Negative [facility] ([place]) Comment on above: Performed By: #### C BC, ADIFF, ANEU, TROPHS, CMP, PBNP, GFR #### [place] [address] Ketones Ql (U) 15 mg/dL Abnormal Neg-Trace [facility] ([place]) Comment on above: Performed By: #### C BC, ADIFF, ANEU, TROPHS, CMP, PBNP, GFR #### [place] [address] UA Appear Cloudy Abnormal Clear [facility] ([place]) Comment on above: Performed By: #### C BC, ADIFF, ANEU, TROPHS, CMP, PBNP, GFR #### [place] [id number] UA Blood Moderate Abnormal Neg-Trace [facility] ([place]) Comment on above: Performed By: #### C BC, ADIFF, ANEU, TROPHS, CMP, PBNP, GFR #### [place] [address] UA Leuk Est Trace Normal Negative [facility] ([place]) Comment on above: Performed By: #### C BC, ADIFF, ANEU, TROPHS, CMP, PBNP, GFR #### [place] [id number] UA Nitrite Positive Abnormal Negative [facility] ([place]) Comment on above: Performed By: #### C BC, ADIFF, ANEU, TROPHS, CMP, PBNP, GFR #### [place] [address] UA pH 6.0 Normal 5.0 - 8.0 [facility] ([place]) Comment on above: Performed By: #### C BC, ADIFF, ANEU, TROPHS, CMP, PBNP, GFR #### [address] [address] UA Protein 30 mg/dL Normal Negative [facility] ([place]) Comment on above: Performed By: #### C BC, ADIFF, ANEU, TROPHS, CMP, PBNP, GFR #### [address] [address] UA Spec Grav >=1.030 Abnormal 1.006-1.029 [facility] ([place]) Comment on above: Performed By: #### C BC, ADIFF, ANEU, TROPHS, CMP, PBNP, GFR #### [address] [address] UA Specimen Type Clean Catch Normal [facility] ([place]) Comment on above: Performed By: #### C BC, ADIFF, ANEU, TROPHS, CMP, PBNP, GFR #### [address] [address] UA Urobilinogen 1.0 E.U./dL Normal 0.2-1.0 [facility] ([place]) Comment on above: Performed By: #### C BC, ADIFF, ANEU, TROPHS, CMP, PBNP, GFR #### [address] [address] Urobilinogen Qn (U) Negative Normal Neg-Trace Count includes the [facility] ([place]) Comment on above: Performed By: #### C BC, ADIFF, ANEU, TROPHS, CMP, PBNP, GFR #### [address] [address] Color (U) Yellow Normal [facility] ([place]) Comment on above: Performed By: #### C BC, ADIFF, ANEU, TROPHS, CMP, PBNP, GFR #### [address] [address] Glucose (U) [Mass/Vol] Negative Normal Negative [facility] ([place]) Comment on above: Performed By: #### C BC, ADIFF, ANEU, TROPHS, CMP, PBNP, GFR #### [address] [address] Ketones Ql (U) Negative Normal Neg-Trace [facility] ([place]) Comment on above: Performed By: #### C BC, ADIFF, ANEU, TROPHS, CMP, PBNP, GFR #### [address] [address] UA Appear Hazy Abnormal Clear [facility] ([place]) Comment on above: Performed By: #### C BC, ADIFF, ANEU, TROPHS, CMP, PBNP, GFR #### [address] [address] UA Blood Large Abnormal Neg-Trace [facility] ([place]) Comment on above: Performed By: #### C BC, ADIFF, ANEU, TROPHS, CMP, PBNP, GFR #### [address] [address] UA Leuk Est Small Abnormal Negative [facility] ([place]) Comment on above: Performed By: #### C BC, ADIFF, ANEU, TROPHS, CMP, PBNP, GFR #### [address] [address] UA Nitrite Negative Normal Negative [facility] ([place]) Comment on above: Performed By: #### C BC, ADIFF, ANEU, TROPHS, CMP, PBNP, GFR #### [address] [address] UA pH 7.5 Normal 5.0 - 8.0 [facility] ([place]) Comment on above: Performed By: #### C BC, ADIFF, ANEU, TROPHS, CMP, PBNP, GFR #### [address] [address] UA Protein 30 mg/dL Normal Negative [facility] ([place]) Comment on above: Performed By: #### C BC, ADIFF, ANEU, TROPHS, CMP, PBNP, GFR #### [address] [address] UA Spec Grav >=1.030 Abnormal 1.006-1.029 [facility] ([place]) Comment on above: Performed By: #### C BC, ADIFF, ANEU, TROPHS, CMP, PBNP, GFR #### [place] [address] UA Specimen Type Not Given Normal [facility] ([place]) Comment on above: Performed By: #### C BC, ADIFF, ANEU, TROPHS, CMP, PBNP, GFR #### [place] [address] UA Urobilinogen 1.0 E.U./dL Normal 0.2-1.0 [facility] ([place]) Comment on above: Performed By: #### C BC, ADIFF, ANEU, TROPHS, CMP, PBNP, GFR #### [place] [address] Urobilinogen Qn (U) Negative Normal Neg-Trace Count includes the [facility] ([place]) Comment on above: Performed By: #### C BC, ADIFF, ANEU, TROPHS, CMP, PBNP, GFR #### [place] [address] UAMICon 12-02-2020 RBC (U) [#/Vol] 0-2 Normal 0-2 [facility] ([place]) Comment on above: Performed By: #### C BC, ADIFF, ANEU, TROPHS, CMP, PBNP, GFR #### [place] [address] UA Amorphus Trace Normal [facility] ([place]) Comment on above: Performed By: #### C BC, ADIFF, ANEU, TROPHS, CMP, PBNP, GFR #### [place] [address] UA Bacteria 3+ /hpf Abnormal Negative [facility] ([place]) Comment on above: Performed By: #### C BC, ADIFF, ANEU, TROPHS, CMP, PBNP, GFR #### [place] [address] UA CA Ox Crystal Trace Normal [facility] ([place]) Comment on above: Performed By: #### C BC, ADIFF, ANEU, TROPHS, CMP, PBNP, GFR #### [address] [address] UA Squam Epithelial 0-2 Normal 0-20 Count includes the [facility] ([place]) Comment on above: Performed By: #### C BC, ADIFF, ANEU, TROPHS, CMP, PBNP, GFR #### [address] [address] UA WBC 3-5 Normal 0-5 [facility] ([place]) Comment on above: Performed By: #### C BC, ADIFF, ANEU, TROPHS, CMP, PBNP, GFR #### [address] [address] RBC (U) [#/Vol] 5-10 Abnormal 0-2 [facility] ([place]) Comment on above: Performed By: #### C BC, ADIFF, ANEU, TROPHS, CMP, PBNP, GFR #### [address] [address] UA Bacteria 4+ /hpf Abnormal Negative [facility] ([place]) Comment on above: Performed By: #### C BC, ADIFF, ANEU, TROPHS, CMP, PBNP, GFR #### [address] [address] UA CA Ox Crystal Trace Normal [facility] ([place]) Comment on above: Performed By: #### C BC, ADIFF, ANEU, TROPHS, CMP, PBNP, GFR #### [address] [address] UA Fine Granular Casts 0-2 Abnormal [facility] ([place]) Comment on above: Performed By: #### C BC, ADIFF, ANEU, TROPHS, CMP, PBNP, GFR #### [address] [address] UA Mixed Cell Casts 0-2 Abnormal Count includes the [facility] ([place]) Comment on above: Performed By: #### C BC, ADIFF, ANEU, TROPHS, CMP, PBNP, GFR #### [address] [address] UA Mucous 2+ /hpf Normal [facility] ([place]) Comment on above: Performed By: #### C BC, ADIFF, ANEU, TROPHS, CMP, PBNP, GFR #### [address] [address] UA Squam Epithelial 10-20 Normal 0-20 Count includes the [facility] ([place]) Comment on above: Performed By: #### C BC, ADIFF, ANEU, TROPHS, CMP, PBNP, GFR #### [address] [address] UA WBC 5-10 Abnormal 0-5 [facility] ([place]) Comment on above: Performed By: #### C BC, ADIFF, ANEU, TROPHS, CMP, PBNP, GFR #### [address] [address] .Auto Diffon 12-01-2020 Ammonia (P) [Mass/Vol] 0.50 10 3/mcL Normal 0.09-1.40 [facility] ([place]) Comment on above: Performed By: #### C BC, ADIFF, ANEU, TROPHS, CMP, PBNP, GFR #### [place] [address] Basophils (Bld) [#/Vol] 0.00 10 3/mcL Normal 0.00-0.27 [facility] ([place]) Comment on above: Performed By: #### C BC, ADIFF, ANEU, TROPHS, CMP, PBNP, GFR #### [address] [address] Basophils/100 WBC (Bld) 0.4 % Normal 0.0-2.5 [facility] ([place]) Comment on above: Performed By: #### C BC, ADIFF, ANEU, TROPHS, CMP, PBNP, GFR #### [address] [address] Eosinophils (Bld) [#/Vol] 0.00 10 3/mcL Normal 0.00-0.65 [facility] ([place]) Comment on above: Performed By: #### C BC, ADIFF, ANEU, TROPHS, CMP, PBNP, GFR #### [place] [id number] Eosinophils/100 WBC (Bld) 0.3 % Normal 0.0-6.0 [facility] ([place]) Comment on above: Performed By: #### C BC, ADIFF, ANEU, TROPHS, CMP, PBNP, GFR #### [address] [address] Lymphocytes (Bld) [#/Vol] 2.10 10 3/mcL Normal 0.90-4.32 [facility] ([place]) Comment on above: Performed By: #### C BC, ADIFF, ANEU, TROPHS, CMP, PBNP, GFR #### [address] [address] Lymphocytes/100 WBC (Bld) 25.7 % Normal 20.0-40.0 [facility] ([place]) Comment on above: Performed By: #### C BC, ADIFF, ANEU, TROPHS, CMP, PBNP, GFR #### [address] [address] Monocytes/100 WBC (Bld) 6.4 % Normal 2.0-13.0 [facility] ([place]) Comment on above: Performed By: #### C BC, ADIFF, ANEU, TROPHS, CMP, PBNP, GFR #### [address] [address] Neutrophils/100 WBC (Bld) 67.2 % Normal 50.0-75.0 [facility] ([place]) Comment on above: Performed By: #### C BC, ADIFF, ANEU, TROPHS, CMP, PBNP, GFR #### [address] [address] .GFRon 12-01-2020 GFR Non- >60 Normal [facility] ([place]) Comment on above: Result Comment: GFR Population [...] ADIFF, ANEU, TROPHS, CMP, PBNP, GFR #### [address] [address] GFR >60 Normal [facility] ([place]) Comment on above: Result Comment: GFR Population [...] ADIFF, ANEU, TROPHS, CMP, PBNP, GFR #### [address] [address] .NEUABSon 12-01-2020 Neutrophils (Bld) [#/Vol] 5.40 10 3/mcL Normal 2.25-8.10 [facility] ([place]) Comment on above: Performed By: #### C BC, ADIFF, ANEU, TROPHS, CMP, PBNP, GFR #### [address] [address] CBCon 12-01-2020 Erythrocyte distribution width (RBC) [Ratio] 17.1 % High 11.5-15.5 [facility] ([place]) Comment on above: Performed By: #### C BC, ADIFF, ANEU, TROPHS, CMP, PBNP, GFR #### [address] [address] Hematocrit (Bld) [Volume fraction] 39.9 % Normal 34.0-46.0 [facility] ([place]) Comment on above: Performed By: #### C BC, ADIFF, ANEU, TROPHS, CMP, PBNP, GFR #### [place] [id number] Hemoglobin (Bld) [Mass/Vol] 13.2 G/dL Normal 12.0-16.0 [facility] ([place]) Comment on above: Performed By: #### C BC, ADIFF, ANEU, TROPHS, CMP, PBNP, GFR #### [place] [id number] MCH (RBC) [Entitic mass] 30.5 pg Normal 27.0-33.0 [facility] ([place]) Comment on above: Performed By: #### C BC, ADIFF, ANEU, TROPHS, CMP, PBNP, GFR #### [place] [id number] MCHC (RBC) [Mass/Vol] 33.2 G/dL Normal 32.0-36.0 [facility] ([place]) Comment on above: Performed By: #### C BC, ADIFF, ANEU, TROPHS, CMP, PBNP, GFR #### [place] [id number] MCV (RBC) [Entitic vol] 91.8 fL Normal 80.0-99.0 [facility] ([place] Comment on above: Performed By: #### C BC, ADIFF, ANEU, TROPHS, CMP, PBNP, GFR #### [place] [id number] Platelet mean volume (Bld) [Entitic vol] 6.4 fL Low 6.6-10.5 [facility] ([place]) Comment on above: Performed By: #### C BC, ADIFF, ANEU, TROPHS, CMP, PBNP, GFR #### [place] [id number] Platelets (Bld) [#/Vol] 352 10 3/mcL Normal 150-450 [facility] ([place]) Comment on above: Performed By: #### C BC, ADIFF, ANEU, TROPHS, CMP, PBNP, GFR #### [address] [address] RBC (Bld) [#/Vol] 4.34 10 6/mcL Normal 4.10-5.30 [facility] ([place]) Comment on above: Performed By: #### C BC, ADIFF, ANEU, TROPHS, CMP, PBNP, GFR #### [address] [address] WBC (Bld) [#/Vol] 7.40 10 3/mcL Normal 4.50-10.80 [facility] ([place]) Comment on above: Performed By: #### C BC, ADIFF, ANEU, TROPHS, CMP, PBNP, GFR #### [place] [id number] CMPon 12-01-2020 Albumin [Mass/Vol] 3.1 G/dL Low 3.2-4.8 [facility] Comment on above: Performed By: #### C BC, ADIFF, ANEU, TROPHS, CMP, PBNP, GFR #### [place] [address] Albumin/Globulin [Mass ratio] 0.9 {ratio} Normal 0.9-1.6 [facility] ([place]) Comment on above: Performed By: #### C BC, ADIFF, ANEU, TROPHS, CMP, PBNP, GFR #### [address] [address] ALP [Catalytic activity/Vol] 50 U/L Normal 38-126 [facility] ([place] Comment on above: Performed By: #### C BC, ADIFF, ANEU, TROPHS, CMP, PBNP, GFR #### [address] [address] ALT [Catalytic activity/Vol] 59 U/L High 10-49 [facility] ([place] Comment on above: Performed By: #### C BC, ADIFF, ANEU, TROPHS, CMP, PBNP, GFR #### [address] [address] AST [Catalytic activity/Vol] 21 U/L Normal 8-34 [facility] ([place]) Comment on above: Performed By: #### C BC, ADIFF, ANEU, TROPHS, CMP, PBNP, GFR #### [address] [address] Bili Total 1.4 mg/dL High 0.2-1.2 [facility] ([place]) Comment on above: Result Comment: Use of this assay is not recommended for patients undergoing treatment with eltrombopag due to the potential for falsely elevated results. Performed By: #### C BC, ADIFF, ANEU, TROPHS, CMP, PBNP, GFR #### [address] [address] Calcium [Mass/Vol] 8.9 mg/dL Normal 8.4-10.1 [facility] Comment on above: Result Comment: No te - New Reference Range in effect 20 Performed By: #### C BC, ADIFF, ANEU, TROPHS, CMP, PBNP, GFR #### [place] [id number] Chloride [Moles/Vol] 101 mmol/L Normal 98-110 [facility] ([place] Comment on above: Performed By: #### C BC, ADIFF, ANEU, TROPHS, CMP, PBNP, GFR #### [address] [address] CO2 [Moles/Vol] 22 mmol/L Normal 22-32 [facility] ([place] Comment on above: Performed By: #### C BC, ADIFF, ANEU, TROPHS, CMP, PBNP, GFR #### [address] [address] Creatinine [Mass/Vol] 0.86 mg/dL Normal 0.50-1.20 [facility] ([place]) Comment on above: Performed By: #### C BC, ADIFF, ANEU, TROPHS, CMP, PBNP, GFR #### [address] [address] Electrolyte Balance 16.0 mEq/L High 4.0-15.0 Count includes the [facility] ([place]) Comment on above: Performed By: #### C BC, ADIFF, ANEU, TROPHS, CMP, PBNP, GFR #### [address] [address] Globulin (S) [Mass/Vol] 3.3 G/dL Normal 1.5-3.8 [facility] ([place]) Comment on above: Performed By: #### C BC, ADIFF, ANEU, TROPHS, CMP, PBNP, GFR #### [address] [address] Glucose [Mass/Vol] 111 mg/dL Normal 82-115 [facility] [place] Comment on above: Performed By: #### C BC, ADIFF, ANEU, TROPHS, CMP, PBNP, GFR #### [address] [address] Potassium [Moles/Vol] 2.7 mmol/L Critically abnormal 3.5-5.0 [facility] ([place]) Comment on above: Performed By: #### C BC, ADIFF, ANEU, TROPHS, CMP, PBNP, GFR #### [address] [address] Protein [Mass/Vol] 6.4 G/dL Normal 6.0-8.5 [facility] Comment on above: Result Comment: No te - New Reference Range in effect 20 Performed By: #### C BC, ADIFF, ANEU, TROPHS, CMP, PBNP, GFR #### [address] [address] Sodium [Moles/Vol] 139 mmol/L Normal 136-145 [facility] [place] Comment on above: Performed By: #### C BC, ADIFF, ANEU, TROPHS, CMP, PBNP, GFR #### [address] [address] Urea nitrogen [Mass/Vol] 17.0 mg/dL Normal 8.0-22.0 [facility] ([place]) Comment on above: Performed By: #### C BC, ADIFF, ANEU, TROPHS, CMP, PBNP, GFR #### [address] [address] Urea nitrogen/Creatinine [Mass ratio] 19.8 ratio Normal 10.0-22.0 [facility] ([place]) Comment on above: Performed By: #### C BC, ADIFF, ANEU, TROPHS, CMP, PBNP, GFR #### [place] [id number] PBNPon 12-01-2020 Natriuretic peptide B (Bld) [Mass/Vol] 776 pg/mL Normal 0-1800 [facility] ([place]) Comment on above: Result Comment: NT-p roBNP results of less than 300 pg/mL effectively rules out acute congestive heart failure with 99% negative predictive value. Performed By: #### C BC, ADIFF, ANEU, TROPHS, CMP, PBNP, GFR #### [place] [id number] TROPHSon 12-01-2020 Troponin I High Sensitivity 16.60 ng/L Normal 0.00-34.00 [facility] ([place]) Comment on above: Performed By: #### C BC, ADIFF, ANEU, TROPHS, CMP, PBNP, GFR #### [place] [address] XR CHEST 1 VIEWon 12-01-2020 XR CHEST [...] Date: 12/01/2020 9:07:38 PM Ordering Provider:Jerrell Guzman [facility] ([place]) Culture, urine Bacteria identified Cx Nom (U) Presumptive E. coli [facility] Work Phone: Vital Signs Date Time Vital Sign Value Performing Clinician Nelly irving 05-29-2025 08:27-0400 Heart rate 96 /min Jorge A Barclay MD Work Phone: [facility] 05-29-2025 08:22-0400 Body temperature 97.1 [degF] Jorge A Barclay MD Work Phone: [facility] 05-29-2025 08:22-0400 Diastolic blood pressure 86 mm[Hg] Jorge A Barclay MD Work Phone: [facility] 05-29-2025 08:22-0400 Respiratory rate 16 /min Jorge A Barclay MD Work Phone: [facility] 05-29-2025 08:22-0400 SaO2% (BldA) [Mass fraction] 100 % Jorge A Barclay MD Work Phone: [facility] 05-29-2025 08:22-0400 Systolic blood pressure 157 mm[Hg] Jorge A Barclay MD Work Phone: [facility] 05-26-2025 14:00-0400 Body mass index (BMI) [Ratio] 31.7 kg/m2 Jorge A Barclay MD Work Phone: [facility] 05-26-2025 14:00-0400 Body weight 73.3 kg Jorge A Barclay MD Work Phone: [facility] 05-25-2025 13:35-0400 Diastolic blood pressure 89 mm[Hg] Jorge A Barclay MD Work Phone: [facility] 05-25-2025 13:35-0400 Heart rate 80 /min Jorge A Barclay MD Work Phone: [facility] 05-25-2025 13:35-0400 Systolic blood pressure 172 mm[Hg] Jorge A Barclay MD Work Phone: [facility] 05-25-2025 13:10-0400 Body temperature 97.4 [degF] Jorge A Barclay MD Work Phone: [facility] 05-25-2025 13:10-0400 Diastolic blood pressure 81 mm[Hg] Jorge A Barclay MD Work Phone: [facility] 05-25-2025 13:10-0400 Heart rate 81 /min Jorge A Barclay MD Work Phone: [facility] 05-25-2025 13:10-0400 Respiratory rate 16 /min Jorge A Barclay MD Work Phone: [facility] 05-25-2025 13:10-0400 SaO2% (BldA) [Mass fraction] 99 % Jorge A Barclay MD Work Phone: [facility] 05-25-2025 13:10-0400 Systolic blood pressure 117 mm[Hg] Jorge A Barclay MD Work Phone: [facility] 05-25-2025 11:48-0400 Body height 152.4 cm Jorge A Barclay MD Work Phone: [facility] 05-25-2025 11:48-0400 Body mass index (BMI) [Ratio] 31.6 kg/m2 Jorge A Barclay MD Work Phone: [facility] 05-25-2025 11:48-0400 Body weight 73.48 kg Jorge A Barclay MD Work Phone: [facility] 05-25-2025 11:18-0400 Body mass index (BMI) [Ratio] 31.9 kg/m2 Jorge A Barclay MD Work Phone: [facility] 05-25-2025 11:18-0400 Body temperature 97.1 [degF] Jorge A Barclay MD Work Phone: [facility] 05-25-2025 11:18-0400 Body weight 73.84 kg Jorge A Barclay MD Work Phone: [facility] 05-25-2025 11:18-0400 Respiratory rate 16 /min Jorge A Barclay MD Work Phone: [facility] 05-25-2025 11:18-0400 SaO2% (BldA) [Mass fraction] 99 % Jorge A Barclay MD Work Phone: [facility] 04-20-2025 16:44-0400 Body temperature 99.7 [degF] Elliot Murillo MD Work Phone: 8(309)689-663284 [address] 04-20-2025 16:44-0400 Diastolic blood pressure 76 mm[Hg] Elliot Murillo MD Work Phone: 4(430)314-433184 [address] 04-20-2025 16:44-0400 Heart rate 91 /min Elliot Murillo MD Work Phone: 6(333)655-235684 [address] 04-20-2025 16:44-0400 Respiratory rate 18 /min Elliot Murillo MD Work Phone: 4(763)203-767084 [address] 04-20-2025 16:44-0400 SaO2% (BldA) [Mass fraction] 100 % Elliot Murillo MD Work Phone: 1(734)086-711184 [address] 04-20-2025 16:44-0400 Systolic blood pressure 176 mm[Hg] Elliot Murillo MD Work Phone: 0(561)575-881584 [address] 04-20-2025 09:00-0400 Body mass index (BMI) [Ratio] 38.81 kg/m2 Elliot Murillo MD Work Phone: 9(688)636-063984 [address] 04-20-2025 09:00-0400 Body weight 90.13 kg Elliot Murillo MD Work Phone: 2(600)520-758684 [address] 04-10-2025 11:00-0400 Body height 152.4 cm Elliot Murillo MD Work Phone: 0(078)790-403659 [place] [address] 04-08-2025 13:15-0400 Body temperature 97.8 [degF] Jorge A Barclay MD Work Phone: [facility] 04-08-2025 13:15-0400 Diastolic blood pressure 78 mm[Hg] Jorge A Barclay MD Work Phone: [facility] 04-08-2025 13:15-0400 Heart rate 70 /min Jorge A Barclay MD Work Phone: [facility] 04-08-2025 13:15-0400 Respiratory rate 20 /min Jorge A Barclay MD Work Phone: [facility] 04-08-2025 13:15-0400 SaO2% (BldA) [Mass fraction] 100 % Jorge A Barclay MD Work Phone: [facility] 04-08-2025 13:15-0400 Systolic blood pressure 173 mm[Hg] Jorge A Barclay MD Work Phone: [facility] 04-08-2025 12:09-0400 Body mass index (BMI) [Ratio] 36.6 kg/m2 Jorge A Barclay MD Work Phone: 3(163)[phone] [place] [address] 04-08-2025 12:09-0400 Body weight 85 kg Jorge A Barclay MD Work Phone: 7(209)[phone] [place] [address] 04-08-2025 11:29-0400 Body height 152.4 cm Jorge A Barclay MD Work Phone: [facility] 04-07-2025 12:59-0400 Body height 152.4 cm Jorge A Barclay MD Work Phone: 7(355)[phone] [address] 04-07-2025 12:59-0400 Body mass index (BMI) [Ratio] 33.7 kg/m2 Jorge A Barclay MD Work Phone: [facility] 04-07-2025 12:59-0400 Body temperature 98.3 [degF] Jorge A Barclay MD Work Phone: [facility] 04-07-2025 12:59-0400 Body weight 78.49 kg Jorge A Barclay MD Work Phone: [facility] 04-07-2025 12:59-0400 Diastolic blood pressure 66 mm[Hg] Jorge A Barclay MD Work Phone: [facility] 04-07-2025 12:59-0400 Heart rate 75 /min Jorge A Barclay MD Work Phone: [facility] 04-07-2025 12:59-0400 Respiratory rate 16 /min Jorge A Barclay MD Work Phone: [facility] 04-07-2025 12:59-0400 SaO2% (BldA) [Mass fraction] 100 % Jorge A Barclay MD Work Phone: [facility] 04-07-2025 12:59-0400 Systolic blood pressure 138 mm[Hg] Jorge A Barclay MD Work Phone: [facility] 03-10-2025 10:53-0400 Body height 152.4 cm Jorge A Barclay MD Work Phone: [facility] 03-10-2025 10:53-0400 Body mass index (BMI) [Ratio] 34 kg/m2 Jorge A Barclay MD Work Phone: [facility] 03-10-2025 10:53-0400 Body temperature 97.9 [degF] Jorge A Barclay MD Work Phone: [facility] 03-10-2025 10:53-0400 Body weight 79.09 kg Jorge A Barclay MD Work Phone: [facility] 03-10-2025 10:53-0400 Diastolic blood pressure 78 mm[Hg] Jorge A Barclay MD Work Phone: [facility] 03-10-2025 10:53-0400 Heart rate 75 /min Jorge A Barclay MD Work Phone: [facility] 03-10-2025 10:53-0400 Respiratory rate 18 /min Jorge A Barclay MD Work Phone: [facility] 03-10-2025 10:53-0400 SaO2% (BldA) [Mass fraction] 100 % Jorge A Barclay MD Work Phone: [facility] 03-10-2025 10:53-0400 Systolic blood pressure 162 mm[Hg] Jorge A Barclay MD Work Phone: [facility] 02-09-2025 14:23-0400 Body mass index (BMI) [Ratio] 35.2 kg/m2 Jorge A Barclay MD Work Phone: [facility] 02-09-2025 14:23-0400 Body temperature 98.2 [degF] Jorge A Barclay MD Work Phone: [facility] 02-09-2025 14:23-0400 Body weight 81.64 kg Jorge A Barclay MD Work Phone: [facility] 02-09-2025 14:23-0400 Diastolic blood pressure 73 mm[Hg] Jorge A Barclay MD Work Phone: [facility] 02-09-2025 14:23-0400 Heart rate 77 /min Jorge A Barclay MD Work Phone: [facility] 02-09-2025 14:23-0400 Respiratory rate 18 /min Jorge A Barclay MD Work Phone: [facility] 02-09-2025 14:23-0400 SaO2% (BldA) [Mass fraction] 100 % Jorge A Barclay MD Work Phone: [facility] 02-09-2025 14:23-0400 Systolic blood pressure 167 mm[Hg] Jorge A Barclay MD Work Phone: [facility] 12-31-2024 09:25-0400 Body mass index (BMI) [Ratio] 35.3 kg/m2 Jorge A Barclay MD Work Phone: [facility] 12-31-2024 09:25-0400 Body temperature 98.3 [degF] Jorge A Barclay MD Work Phone: [facility] 12-31-2024 09:25-0400 Body weight 82.1 kg Jorge A Barclay MD Work Phone: [facility] 12-31-2024 09:25-0400 Diastolic blood pressure 74 mm[Hg] Jorge A Barclya MD Work Phone: [facility] 12-31-2024 09:25-0400 Heart rate 65 /min Jorge A Barclay MD Work Phone: [facility] 12-31-2024 09:25-0400 Respiratory rate 16 /min Jorge A Barclay MD Work Phone: [facility] 12-31-2024 09:25-0400 SaO2% (BldA) [Mass fraction] 100 % Jorge A Barclay MD Work Phone: [facility] 12-31-2024 09:25-0400 Systolic blood pressure 154 mm[Hg] Jorge A Barclay MD Work Phone: [facility] 12-24-2024 10:35-0400 Body mass index (BMI) [Ratio] 34.9 kg/m2 Jorge A Barclay MD Work Phone: 1(046)[phone] [place] [address] 12-24-2024 10:35-0400 Body temperature 97.3 [degF] Jorge A Barclay MD Work Phone: 8(651)988-558335 [place] [address] 12-24-2024 10:35-0400 Body weight 81.19 kg Jorge A Barclay MD Work Phone: [facility] 12-24-2024 10:35-0400 Diastolic blood pressure 88 mm[Hg] Jorge A Barclay MD Work Phone: 8(560)677-038835 [place] [address] 12-24-2024 10:35-0400 Heart rate 67 /min Jorge A Barclay MD Work Phone: [facility] 12-24-2024 10:35-0400 Respiratory rate 16 /min Jorge A Barclay MD Work Phone: [facility] 12-24-2024 10:35-0400 SaO2% (BldA) [Mass fraction] 100 % Jorge A Barclay MD Work Phone: [facility] 12-24-2024 10:35-0400 Systolic blood pressure 179 mm[Hg] Jorge A Barclay MD Work Phone: [facility] 12-18-2024 10:08-0500 Body temperature 98.4 [degF] Jorge A Barclay MD Work Phone: [facility] 12-18-2024 10:08-0500 Body weight 81.64 kg Jorge A Barclay MD Work Phone: [facility] 12-18-2024 10:08-0500 Diastolic blood pressure 76 mm[Hg] Jorge A Barclay MD Work Phone: [facility] 12-18-2024 10:08-0500 Heart rate 79 /min Jorge A Barclay MD Work Phone: [facility] 12-18-2024 10:08-0500 Respiratory rate 17 /min Jorge A Barclay MD Work Phone: [facility] 12-18-2024 10:08-0500 SaO2% (BldA) [Mass fraction] 98 % Jorge A Barclay MD Work Phone: [facility] 12-18-2024 10:08-0500 Systolic blood pressure 120 mm[Hg] Jorge A Barclay MD Work Phone: [facility] 12-01-2024 15:32-0500 Body mass index (BMI) [Ratio] 34.9 kg/m2 Jorge A Barclay MD Work Phone: [facility] 12-01-2024 15:32-0500 Body temperature 97.2 [degF] Jorge A Barclay MD Work Phone: [facility] 12-01-2024 15:32-0500 Body weight 81.3 kg Jorge A Barclay MD Work Phone: [facility] 12-01-2024 15:32-0500 Diastolic blood pressure 72 mm[Hg] Jorge A Barclay MD Work Phone: [facility] 12-01-2024 15:32-0500 Heart rate 74 /min Jorge A Barclay MD Work Phone: [facility] 12-01-2024 15:32-0500 Respiratory rate 18 /min Jorge A Barclay MD Work Phone: [facility] 12-01-2024 15:32-0500 SaO2% (BldA) [Mass fraction] 99 % Jorge A Barclay MD Work Phone: [facility] 12-01-2024 15:32-0500 Systolic blood pressure 138 mm[Hg] Jorge A Barclay MD Work Phone: [facility] 11-26-2024 10:00-0500 Body mass index (BMI) [Ratio] 34.8 kg/m2 Jorge A Barclay MD Work Phone: [facility] 11-26-2024 10:00-0500 Body temperature 96.9 [degF] Jorge A Barclay MD Work Phone: [facility] 11-26-2024 10:00-0500 Body weight 80.93 kg Jorge A Barclay MD Work Phone: [facility] 11-26-2024 10:00-0500 Diastolic blood pressure 86 mm[Hg] Jorge A Barclay MD Work Phone: [facility] 11-26-2024 10:00-0500 Heart rate 63 /min Jorge A Barclay MD Work Phone: [facility] 11-26-2024 10:00-0500 Respiratory rate 18 /min Jorge A Barclay MD Work Phone: [facility] 11-26-2024 10:00-0500 SaO2% (BldA) [Mass fraction] 99 % Jorge A Barclay MD Work Phone: [facility] 11-26-2024 10:00-0500 Systolic blood pressure 162 mm[Hg] Jorge A Barclay MD Work Phone: [facility] 10-09-2023 09:43-0500 Body height 152.4 cm DO Uyen Lynn Work Phone: [facility] 10-09-2023 09:43-0500 Body mass index (BMI) [Ratio] 37 kg/m2 DO Uyen Lynn Work Phone: [facility] 10-09-2023 09:43-0500 Body temperature 97.8 [degF] DO Uyen Shane Work Phone: [facility] 10-09-2023 09:43-0500 Body weight 86.21 kg DO Uyen Shane Work Phone: [facility] 10-09-2023 09:43-0500 Diastolic blood pressure 80 mm[Hg] DO Uyen Shane Work Phone: [facility] 10-09-2023 09:43-0500 Heart rate 63 /min DO Yuen Shane Work Phone: [facility] 10-09-2023 09:43-0500 Respiratory rate 18 /min DO Uyen Shane Work Phone: [facility] 10-09-2023 09:43-0500 SaO2% (BldA) [Mass fraction] 98 % DO Uyen Shane Work Phone: [facility] 10-09-2023 09:43-0500 Systolic blood pressure 160 mm[Hg] DO Uyen Shane Work Phone: [facility] 09-18-2023 10:53-0500 Body mass index (BMI) [Ratio] 37 kg/m2 DO Uyen Shane Work Phone: [facility] 09-18-2023 10:53-0500 Body temperature 98 [degF] DO Uyen Shane Work Phone: [facility] 09-18-2023 10:53-0500 Body weight 86.09 kg DO Uyen Shane Work Phone: [facility] 09-18-2023 10:53-0500 Diastolic blood pressure 70 mm[Hg] DO Uyen Shane Work Phone: [facility] 09-18-2023 10:53-0500 Heart rate 67 /min DO Uyen Shane Work Phone: [facility] 09-18-2023 10:53-0500 Respiratory rate 17 /min DO Uyen Shane Work Phone: [facility] 09-18-2023 10:53-0500 SaO2% (BldA) [Mass fraction] 99 % DO Uyen Shane Work Phone: [facility] 09-18-2023 10:53-0500 Systolic blood pressure 130 mm[Hg] DO Uyen Shane Work Phone: [facility] 09-18-2023 08:54-0500 Body mass index (BMI) [Ratio] 36.9 kg/m2 DO Uyen Shane Work Phone: [facility] 09-18-2023 08:54-0500 Body weight 85.72 kg DO Uyen Shane Work Phone: [facility] 09-18-2023 08:54-0500 Diastolic blood pressure 82 mm[Hg] DO Uyen Shane Work Phone: [facility] 09-18-2023 08:54-0500 Heart rate 71 /min DO Uyen Shane Work Phone: [facility] 09-18-2023 08:54-0500 Respiratory rate 20 /min DO Uyen Shane Work Phone: [facility] 09-18-2023 08:54-0500 SaO2% (BldA) [Mass fraction] 100 % DO Uyen Shane Work Phone: [facility] 09-18-2023 08:54-0500 Systolic blood pressure 143 mm[Hg] DO Uyen Shane Work Phone: [facility] 09-11-2023 11:14-0500 Body mass index (BMI) [Ratio] 37.3 kg/m2 DO Uyen Shane Work Phone: [facility] 09-11-2023 11:14-0500 Body temperature 97.9 [degF] DO Uyen Shane Work Phone: [facility] 09-11-2023 11:14-0500 Body weight 86.8 kg DO Uyen Shane Work Phone: [facility] 09-11-2023 11:14-0500 Diastolic blood pressure 81 mm[Hg] DO Uyen Shane Work Phone: [facility] 09-11-2023 11:14-0500 Heart rate 75 /min DO Uyen Shane Work Phone: [facility] 09-11-2023 11:14-0500 Respiratory rate 18 /min DO Uyen Shane Work Phone: [facility] 09-11-2023 11:14-0500 SaO2% (BldA) [Mass fraction] 95 % DO Uyen Shane Work Phone: [facility] 09-11-2023 11:14-0500 Systolic blood pressure 181 mm[Hg] DO Uyen Shane Work Phone: [facility] 08-14-2023 10:41-0400 Body mass index (BMI) [Ratio] 37 kg/m2 DO Uyen Shane Work Phone: [facility] 08-14-2023 10:41-0400 Body temperature 98.2 [degF] DO Uyen Shane Work Phone: [facility] 08-14-2023 10:41-0400 Body weight 85.95 kg DO Uyen Shane Work Phone: [facility] 08-14-2023 10:41-0400 Diastolic blood pressure 69 mm[Hg] DO Uyen Shane Work Phone: [facility] 08-14-2023 10:41-0400 Heart rate 64 /min DO Uyen Shane Work Phone: [facility] 08-14-2023 10:41-0400 Respiratory rate 18 /min DO Uyen Shane Work Phone: [facility] 08-14-2023 10:41-0400 SaO2% (BldA) [Mass fraction] 100 % DO Uyen Shane Work Phone: [facility] 08-14-2023 10:41-0400 Systolic blood pressure 149 mm[Hg] DO Uyen Shane Work Phone: [facility] 07-17-2023 10:17-0400 Body mass index (BMI) [Ratio] 37.5 kg/m2 DO Uyen Shane Work Phone: [facility] 07-17-2023 10:17-0400 Body temperature 98.3 [degF] DO Uyen Shane Work Phone: [facility] 07-17-2023 10:17-0400 Body weight 87.34 kg DO Uyen Shane Work Phone: [facility] 07-17-2023 10:17-0400 Diastolic blood pressure 72 mm[Hg] DO Uyen Shane Work Phone: [facility] 07-17-2023 10:17-0400 Heart rate 76 /min DO Uyen Shane Work Phone: [facility] 07-17-2023 10:17-0400 Respiratory rate 18 /min DO Uyen Shane Work Phone: [facility] 07-17-2023 10:17-0400 SaO2% (BldA) [Mass fraction] 99 % DO Uyen Shane Work Phone: [facility] 07-17-2023 10:17-0400 Systolic blood pressure 157 mm[Hg] DO Uyen Shane Work Phone: [facility] 06-19-2023 10:50-0400 Body mass index (BMI) [Ratio] 37.7 kg/m2 DO Uyen Shane Work Phone: [facility] 06-19-2023 10:50-0400 Body temperature 98.3 [degF] DO Uyen Shane Work Phone: [facility] 06-19-2023 10:50-0400 Body weight 87.68 kg DO Uyen Shane Work Phone: [facility] 06-19-2023 10:50-0400 Diastolic blood pressure 79 mm[Hg] DO Uyen Shane Work Phone: [facility] 06-19-2023 10:50-0400 Heart rate 70 /min DO Uyen Shane Work Phone: [facility] 06-19-2023 10:50-0400 Respiratory rate 18 /min DO Uyen Shane Work Phone: [facility] 06-19-2023 10:50-0400 SaO2% (BldA) [Mass fraction] 99 % DO Uyen Shane Work Phone: [facility] 06-19-2023 10:50-0400 Systolic blood pressure 148 mm[Hg] DO Uyen Shane Work Phone: [facility] 05-22-2023 11:52-0400 Body height 152.4 cm DO Uyen Shane Work Phone: [facility] 05-22-2023 11:48-0400 Body mass index (BMI) [Ratio] 37.5 kg/m2 DO Uyen Shane Work Phone: [facility] 05-22-2023 11:48-0400 Body temperature 96.6 [degF] DO Uyen Shane Work Phone: [facility] 05-22-2023 11:48-0400 Body weight 87.08 kg DO Uyen Shane Work Phone: [facility] 05-22-2023 11:48-0400 Diastolic blood pressure 83 mm[Hg] DO Uyen Shane Work Phone: [facility] 05-22-2023 11:48-0400 Heart rate 61 /min DO Uyen Shane Work Phone: [facility] 05-22-2023 11:48-0400 Respiratory rate 16 /min DO Uyen Shane Work Phone: [facility] 05-22-2023 11:48-0400 SaO2% (BldA) [Mass fraction] 98 % DO Uyen Shane Work Phone: [facility] 05-22-2023 11:48-0400 Systolic blood pressure 138 mm[Hg] DO Uyen Shane Work Phone: [facility] 05-08-2023 13:05-0400 Body height 152.4 cm DO Uyen Shane Work Phone: [facility] 05-08-2023 13:03-0400 Body mass index (BMI) [Ratio] 37.5 kg/m2 DO Uyen Shane Work Phone: [facility] 05-08-2023 13:03-0400 Body temperature 97.5 [degF] DO Uyen Shane Work Phone: [facility] 05-08-2023 13:03-0400 Body weight 87.25 kg DO Uyen Shane Work Phone: [facility] 05-08-2023 13:03-0400 Diastolic blood pressure 73 mm[Hg] DO Uyen Shane Work Phone: [facility] 05-08-2023 13:03-0400 Heart rate 58 /min DO Uyen Shane Work Phone: [facility] 05-08-2023 13:03-0400 Respiratory rate 16 /min DO Uyen Shane Work Phone: [facility] 05-08-2023 13:03-0400 SaO2% (BldA) [Mass fraction] 100 % DO Uyen Shane Work Phone: [facility] 05-08-2023 13:03-0400 Systolic blood pressure 149 mm[Hg] DO Uyen Shane Work Phone: [facility] 04-24-2023 09:35-0400 Body height 152.4 cm DO Uyen Shane Work Phone: [facility] 04-24-2023 09:34-0400 Body mass index (BMI) [Ratio] 37.5 kg/m2 DO Uyen Shane Work Phone: [facility] 04-24-2023 09:34-0400 Body temperature 98.2 [degF] DO Uyen Shane Work Phone: [facility] 04-24-2023 09:34-0400 Body weight 87.2 kg DO Uyen Shane Work Phone: [facility] 04-24-2023 09:34-0400 Diastolic blood pressure 79 mm[Hg] DO Uyen Shane Work Phone: [facility] 04-24-2023 09:34-0400 Heart rate 72 /min DO Uyen Shane Work Phone: [facility] 04-24-2023 09:34-0400 Respiratory rate 16 /min DO Uyen Shane Work Phone: [facility] 04-24-2023 09:34-0400 SaO2% (BldA) [Mass fraction] 100 % DO Uyen Shane Work Phone: [facility] 04-24-2023 09:34-0400 Systolic blood pressure 158 mm[Hg] DO Uyen Shane Work Phone: [facility] 04-19-2023 14:13-0400 Body mass index (BMI) [Ratio] 37.3 kg/m2 DO Uyen Shane Work Phone: [facility] 04-19-2023 14:13-0400 Body temperature 98.1 [degF] DO Uyen Shane Work Phone: [facility] 04-19-2023 14:13-0400 Body weight 86.63 kg DO Uyen Shane Work Phone: [facility] 04-19-2023 14:13-0400 Diastolic blood pressure 76 mm[Hg] DO Uyen Shane Work Phone: [facility] 04-19-2023 14:13-0400 Heart rate 74 /min DO Uyen Shane Work Phone: [facility] 04-19-2023 14:13-0400 Respiratory rate 18 /min DO Uyen Shane Work Phone: [facility] 04-19-2023 14:13-0400 SaO2% (BldA) [Mass fraction] 97 % DO Uyen Shane Work Phone: [facility] 04-19-2023 14:13-0400 Systolic blood pressure 144 mm[Hg] DO Uyen Shane Work Phone: [facility] 04-09-2023 11:48-0400 Body height 152.4 cm DO Uyen Shane Work Phone: [facility] 04-09-2023 11:48-0400 Body mass index (BMI) [Ratio] 37.2 kg/m2 DO Uyen Shane Work Phone: [facility] 04-09-2023 11:48-0400 Body temperature 97.6 [degF] DO Uyen Shane Work Phone: [facility] 04-09-2023 11:48-0400 Body weight 86.4 kg DO Uyen Shane Work Phone: [facility] 04-09-2023 11:48-0400 Diastolic blood pressure 89 mm[Hg] DO Uyen Shane Work Phone: [facility] 04-09-2023 11:48-0400 Heart rate 87 /min DO Uyen Shane Work Phone: [facility] 04-09-2023 11:48-0400 Respiratory rate 18 /min DO Uyen Shane Work Phone: [facility] 04-09-2023 11:48-0400 SaO2% (BldA) [Mass fraction] 98 % DO Uyen Shane Work Phone: [facility] 04-09-2023 11:48-0400 Systolic blood pressure 187 mm[Hg] DO Uyen Shane Work Phone: [facility] 04-03-2023 10:04-0400 Body mass index (BMI) [Ratio] 37.7 kg/m2 DO Uyen Shane Work Phone: [facility] 04-03-2023 10:04-0400 Body weight 87.54 kg DO Uyen Shane Work Phone: [facility] 04-03-2023 10:04-0400 Diastolic blood pressure 83 mm[Hg] DO Uyen Shane Work Phone: [facility] 04-03-2023 10:04-0400 Heart rate 66 /min DO Uyen Shane Work Phone: [facility] 04-03-2023 10:04-0400 Respiratory rate 20 /min DO Uyen Shane Work Phone: [facility] 04-03-2023 10:04-0400 SaO2% (BldA) [Mass fraction] 95 % DO Uyen Shane Work Phone: [facility] 04-03-2023 10:04-0400 Systolic blood pressure 145 mm[Hg] DO Uyen Shane Work Phone: [facility] 03-01-2023 14:52-0400 Body mass index (BMI) [Ratio] 37.5 kg/m2 DO Uyen Shane Work Phone: [facility] 03-01-2023 14:52-0400 Body temperature 97.3 [degF] DO Uyen Shane Work Phone: [facility] 03-01-2023 14:52-0400 Body weight 87.11 kg DO Uyen Shane Work Phone: [facility] 03-01-2023 14:52-0400 Diastolic blood pressure 86 mm[Hg] DO Uyen Shane Work Phone: [facility] 03-01-2023 14:52-0400 Heart rate 67 /min DO Uyen Shane Work Phone: [facility] 03-01-2023 14:52-0400 Respiratory rate 16 /min DO Uyen Shane Work Phone: [facility] 03-01-2023 14:52-0400 SaO2% (BldA) [Mass fraction] 100 % DO Uyen Shane Work Phone: [facility] 03-01-2023 14:52-0400 Systolic blood pressure 172 mm[Hg] DO Uyen Shane Work Phone: [facility] 02-14-2023 14:33-0400 Body mass index (BMI) [Ratio] 37.3 kg/m2 DO Uyen Shane Work Phone: [facility] 02-14-2023 14:33-0400 Body temperature 98.4 [degF] DO Uyen Shane Work Phone: [facility] 02-14-2023 14:33-0400 Body weight 86.63 kg DO Uyen Shane Work Phone: [facility] 02-14-2023 14:33-0400 Diastolic blood pressure 89 mm[Hg] DO Uyen Shane Work Phone: [facility] 02-14-2023 14:33-0400 Heart rate 69 /min DO Uyen Shane Work Phone: [facility] 02-14-2023 14:33-0400 Respiratory rate 18 /min DO Uyen Shane Work Phone: [facility] 02-14-2023 14:33-0400 SaO2% (BldA) [Mass fraction] 100 % DO Uyen Shane Work Phone: [facility] 02-14-2023 14:33-0400 Systolic blood pressure 149 mm[Hg] DO Uyen Carroller Work Phone: [facility] 01-08-2023 10:58-0400 Body mass index (BMI) [Ratio] 37.5 kg/m2 DO Uyen Carroller Work Phone: [facility] 01-08-2023 10:58-0400 Body temperature 98.2 [degF] DO Uyen Carroller Work Phone: [facility] 01-08-2023 10:58-0400 Body weight 87.08 kg DO Uyen Lynn Work Phone: [facility] 01-08-2023 10:58-0400 Diastolic blood pressure 80 mm[Hg] DO Uyen Carroller Work Phone: [facility] 01-08-2023 10:58-0400 Heart rate 67 /min DO Uyen Carroller Work Phone: [facility] 01-08-2023 10:58-0400 Respiratory rate 16 /min DO Uyen Lynn Work Phone: [facility] 01-08-2023 10:58-0400 SaO2% (BldA) [Mass fraction] 98 % DO Uyen Carroller Work Phone: [facility] 01-08-2023 10:58-0400 Systolic blood pressure 124 mm[Hg] DO Uyen Carroller Work Phone: [facility] 03-31-2022 13:53-0400 Body height 152.4 cm [employer]ACE[employer] Kortney Arely [employer]ITER Work Phone: [facility] Work Phone: 03-31-2022 13:53-0400 Body mass index (BMI) [Ratio] 33.7 kg/m2 [employer] Kortney Arely [employer] Work Phone: [facility] Work Phone: 03-31-2022 13:53-0400 Body weight 78.52 kg [employer] WR[employer] Kortney Arely [employer]OOK WRITER Work Phone: [facility] Work Phone: 03-31-2022 13:53-0400 Diastolic blood pressure 80 mm[Hg] [employer] Kortney Arely [employer]ACEBOOK WRITER Work Phone: [facility] Work Phone: 03-31-2022 13:53-0400 Heart rate 76 /min [employer] Kortney Arely [employer]OOK WRITER Work Phone: [facility] Work Phone: 03-31-2022 13:53-0400 Respiratory rate 18 /min [employer] Kortney Arely [employer]ACE[employer]OOK WRITER Work Phone: [facility] Work Phone: 03-31-2022 13:53-0400 Systolic blood pressure 168 mm[Hg] [employer] Kortney Arely [employer]BOOK WRITER Work Phone: [facility] Work Phone: 03-16-2022 14:16-0400 Body mass index (BMI) [Ratio] 33.5 kg/m2 [employer] Kortney Arely [employer]OOK WRITER Work Phone: [facility] Work Phone: 03-16-2022 14:16-0400 Body temperature 98.2 [degF] [employer] Kortney Arely [employer]OOK WRITER Work Phone: [facility] Work Phone: 03-16-2022 14:16-0400 Body weight 78.01 kg [employer] WR[employer] Kortney Arely [employer]BOOK WRITER Work Phone: [facility] Work Phone: 03-16-2022 14:16-0400 Diastolic blood pressure 77 mm[Hg] [employer] Kortney Arely [employer]OOK WRITER Work Phone: [facility] Work Phone: 03-16-2022 14:16-0400 Heart rate 76 /min [employer] Kortney Arely [employer]OOK WRITER Work Phone: [facility] Work Phone: 03-16-2022 14:16-0400 Respiratory rate 15 /min [employer] Kortney Arely [employer]OOK WRITER Work Phone: [facility] Work Phone: 03-16-2022 14:16-0400 SaO2% (BldA) [Mass fraction] 99 % [employer] Kortney Arely [employer]OOK WRITER Work Phone: [facility] Work Phone: 03-16-2022 14:16-0400 Systolic blood pressure 146 mm[Hg] [employer] Kortney Arely [employer]OOK WRITER Work Phone: [facility] Work Phone: 02-16-2022 15:47-0400 Body mass index (BMI) [Ratio] 33.3 kg/m2 [employer] Kortney Arely [employer]OOK WRITER Work Phone: [facility] Work Phone: 02-16-2022 15:47-0400 Body temperature 98.6 [degF] [employer] Kortney Arely [employer]OOK WRITER Work Phone: [facility] Work Phone: 02-16-2022 15:47-0400 Body weight 77.28 kg [employer] Kortney Arely [employer]BOOK WRITER Work Phone: [facility] Work Phone: 02-16-2022 15:47-0400 Diastolic blood pressure 78 mm[Hg] [employer] Kortney Arely [employer]OOK WRITER Work Phone: [facility] Work Phone: 02-16-2022 15:47-0400 Heart rate 78 /min [employer] Kortney Arely [employer]OOK WRITER Work Phone: [facility] Work Phone: 02-16-2022 15:47-0400 Respiratory rate 15 /min [employer] Kortney Arely [employer]BOOK WRITER Work Phone: [facility] Work Phone: 02-16-2022 15:47-0400 SaO2% (BldA) [Mass fraction] 97 % [employer] Kortney Arely [employer]OOK WRITER Work Phone: [facility] Work Phone: 02-16-2022 15:47-0400 Systolic blood pressure 161 mm[Hg] [employer] Kortney Arely [employer]BOOK WRITER Work Phone: [facility] Work Phone: 01-19-2022 10:51-0400 Body mass index (BMI) [Ratio] 31.7 kg/m2 [employer] Kortney Arely [employer]OOK WRITER Work Phone: [facility] Work Phone: 01-19-2022 10:51-0400 Body temperature 98.3 [degF] [employer] Kortney Arely [employer]OOK WRITER Work Phone: [facility] Work Phone: 01-19-2022 10:51-0400 Body weight 73.73 kg [employer] Kortney Arely [employer]OOK WRITER Work Phone: [facility] Work Phone: 01-19-2022 10:51-0400 Diastolic blood pressure 85 mm[Hg] [employer] Kortney Arely [employer]OOK WRITER Work Phone: [facility] Work Phone: 01-19-2022 10:51-0400 Heart rate 68 /min [employer] Kortney Arely [employer]OOK WRITER Work Phone: [facility] Work Phone: 01-19-2022 10:51-0400 Respiratory rate 15 /min [employer] Kortney Arely [employer]OOK WRITER Work Phone: [facility] Work Phone: 01-19-2022 10:51-0400 SaO2% (BldA) [Mass fraction] 98 % [employer] Kortney Arely [employer]OOK WRITER Work Phone: [facility] Work Phone: 01-19-2022 10:51-0400 Systolic blood pressure 161 mm[Hg] [employer] Kortney Arely [employer]BOOK WRITER Work Phone: [facility] Work Phone: 01-02-2022 14:36-0400 Diastolic blood pressure 78 mm[Hg] [employer] WR[employer] Kortney Arely [employer]BOOK WRITER Work Phone: [facility] Work Phone: 01-02-2022 14:36-0400 Heart rate 78 /min [employer] Kortney Arely [employer]OOK WRITER Work Phone: [facility] Work Phone: 01-02-2022 14:36-0400 Respiratory rate 18 /min [employer] WR[employer] Kortney Arely R[employer]OOK WRITER Work Phone: [facility] Work Phone: 01-02-2022 14:36-0400 SaO2% (BldA) [Mass fraction] 99 % [employer] Kortney Arely R[employer]BOOK WRITER Work Phone: [facility] Work Phone: 01-02-2022 14:36-0400 Systolic blood pressure 140 mm[Hg] [employer] Kortney Arely R[employer]BOOK WRITER Work Phone: [facility] Work Phone: 01-02-2022 14:36-0400 Diastolic blood pressure 78 mm[Hg] Dr. Steven Tubbs Work Phone: [facility] Work Phone: 01-02-2022 14:36-0400 Heart rate 78 /min Dr. Steven Tubbs Work Phone: [facility] Work Phone: 01-02-2022 14:36-0400 Respiratory rate 18 /min Dr. Steven Tubbs Work Phone: [facility] Work Phone: 01-02-2022 14:36-0400 SaO2% (BldA) [Mass fraction] 99 % Dr. Steven Tubbs Work Phone: [facility] Work Phone: 01-02-2022 14:36-0400 Systolic blood pressure 140 mm[Hg] Dr. Steven Tubbs Work Phone: [facility] Work Phone: 12-22-2021 14:59-0500 Body mass index (BMI) [Ratio] 31.1 kg/m2 [employer] WR[employer] Kortney Arely RACEBOOK WRITER Work Phone: [facility] Work Phone: 12-22-2021 14:59-0500 Body temperature 98.5 [degF] [employer] WRITER[employer] Kortney Arely RACEBOOK WRITER Work Phone: [facility] Work Phone: 12-22-2021 14:59-0500 Body weight 72.17 kg RACEB[employer] WRITER[employer]C Kortney Arely RACEBOOK WRITER Work Phone: [facility] Work Phone: 12-22-2021 14:59-0500 Diastolic blood pressure 80 mm[Hg] [employer] WRITER[employer]C Kortney Arely RACEBOOK WRITER Work Phone: [facility] Work Phone: 12-22-2021 14:59-0500 Heart rate 65 /min [employer] WR[employer] Kortney Arely R[employer]BOOK WRITER Work Phone: [facility] Work Phone: 12-22-2021 14:59-0500 Respiratory rate 15 /min [employer] WRITER[employer] Kortney Arely RACEBOOK WRITER Work Phone: [facility] Work Phone: 12-22-2021 14:59-0500 SaO2% (BldA) [Mass fraction] 97 % [employer] WR[employer] Kortney Arely RACEBOOK WRITER Work Phone: [facility] Work Phone: 12-22-2021 14:59-0500 Systolic blood pressure 139 mm[Hg] [employer] WRITER[employer] Kortney Arely RACEBOOK WRITER Work Phone: [facility] Work Phone: 12-22-2021 13:59-0500 Body mass index (BMI) [Ratio] 31.1 kg/m2 Dr. Steven Tubbs Work Phone: [facility] Work Phone: 12-22-2021 13:59-0500 Body temperature 98.5 [degF] Dr. Steven Tubbs Work Phone: [facility] Work Phone: 12-22-2021 13:59-0500 Body weight 72.[address] Steven Tubbs Work Phone: [facility] Work Phone: 12-22-2021 13:59-0500 Diastolic blood pressure 80 mm[Hg] Dr. Steven Tubbs Work Phone: [facility] Work Phone: 12-22-2021 13:59-0500 Heart rate 65 /min Dr. Steven Tubbs Work Phone: [facility] Work Phone: 12-22-2021 13:59-0500 Respiratory rate 15 /min Dr. Steven Tubbs Work Phone: [facility] Work Phone: 12-22-2021 13:59-0500 SaO2% (BldA) [Mass fraction] 97 % Dr. Steven Tubbs Work Phone: [facility] Work Phone: 12-22-2021 13:59-0500 Systolic blood pressure 139 mm[Hg] Dr. Steven Tubbs Work Phone: [facility] Work Phone: 11-23-2021 08:45-0500 Body mass index (BMI) [Ratio] 30.2 kg/m2 Dr. Steven Tubbs Work Phone: [facility] Work Phone: 11-23-2021 08:45-0500 Body temperature 98.4 [degF] Dr. Steven Tubbs Work Phone: [facility] Work Phone: 11-23-2021 08:45-0500 Body weight 70.[address] Steven Tubbs Work Phone: [facility] Work Phone: 11-23-2021 08:45-0500 Diastolic blood pressure 77 mm[Hg] Dr. Steven Tubbs Work Phone: [facility] Work Phone: 11-23-2021 08:45-0500 Heart rate 73 /min Dr. Steven Tubbs Work Phone: [facility] Work Phone: 11-23-2021 08:45-0500 Respiratory rate 16 /min Dr. Steven Tubbs Work Phone: [facility] Work Phone: 11-23-2021 08:45-0500 SaO2% (BldA) [Mass fraction] 97 % Dr. Steven Tubbs Work Phone: [facility] Work Phone: 11-23-2021 08:45-0500 Systolic blood pressure 170 mm[Hg] Dr. Steven Tubbs Work Phone: [facility] Work Phone: 11-15-2021 08:56-0500 Body mass index (BMI) [Ratio] 30.1 kg/m2 Dr. Steven Tubbs Work Phone: [facility] Work Phone: 11-15-2021 08:56-0500 Body temperature 98.2 [degF] Dr. Steven Tubbs Work Phone: [facility] Work Phone: 11-15-2021 08:56-0500 Body weight 69.[address] Steven Tubbs Work Phone: [facility] Work Phone: 11-15-2021 08:56-0500 Diastolic blood pressure 83 mm[Hg] Dr. Steven Tubbs Work Phone: [facility] Work Phone: 11-15-2021 08:56-0500 Heart rate 64 /min Dr. Steven Tubbs Work Phone: [facility] Work Phone: 11-15-2021 08:56-0500 Respiratory rate 14 /min Dr. Steven Tubbs Work Phone: [facility] Work Phone: 11-15-2021 08:56-0500 SaO2% (BldA) [Mass fraction] 98 % Dr. Steven Tubbs Work Phone: [facility] Work Phone: 11-15-2021 08:56-0500 Systolic blood pressure 144 mm[Hg] Dr. Steven Tubbs Work Phone: [facility] Work Phone: 11-09-2021 08:33-0500 Body mass index (BMI) [Ratio] 29.7 kg/m2 Dr. Steven Tubbs Work Phone: [facility] Work Phone: 11-09-2021 08:33-0500 Body temperature 98.2 [degF] Dr. Steven Tubbs Work Phone: [facility] Work Phone: 11-09-2021 08:33-0500 Body weight 69.[address] Steven Tubbs Work Phone: [facility] Work Phone: 11-09-2021 08:33-0500 Diastolic blood pressure 67 mm[Hg] Dr. Steven Tubbs Work Phone: [facility] Work Phone: 11-09-2021 08:33-0500 Heart rate 83 /min Dr. Steven Tubbs Work Phone: [facility] Work Phone: 11-09-2021 08:33-0500 Respiratory rate 15 /min Dr. Steven Tubbs Work Phone: [facility] Work Phone: 11-09-2021 08:33-0500 SaO2% (BldA) [Mass fraction] 97 % Dr. Steven Tubbs Work Phone: [facility] Work Phone: 11-09-2021 08:33-0500 Systolic blood pressure 164 mm[Hg] Dr. Steven Tubbs Work Phone: [facility] Work Phone: 11-02-2021 12:03-0500 Body mass index (BMI) [Ratio] 29.9 kg/m2 Dr. Steven Tubbs Work Phone: [facility] Work Phone: 11-02-2021 12:03-0500 Body temperature 98.5 [degF] Dr. Steven Tubbs Work Phone: [facility] Work Phone: 11-02-2021 12:03-0500 Body weight 69.[address] Steven Tubbs Work Phone: [facility] Work Phone: 11-02-2021 12:03-0500 Diastolic blood pressure 87 mm[Hg] Dr. Steven Tubbs Work Phone: [facility] Work Phone: 11-02-2021 12:03-0500 Heart rate 75 /min Dr. Steven Tubbs Work Phone: [facility] Work Phone: 11-02-2021 12:03-0500 Respiratory rate 15 /min Dr. Steven Tubbs Work Phone: [facility] Work Phone: 11-02-2021 12:03-0500 SaO2% (BldA) [Mass fraction] 97 % Dr. Steven Tubbs Work Phone: [facility] Work Phone: 11-02-2021 12:03-0500 Systolic blood pressure 174 mm[Hg] Dr. Steven Tubbs Work Phone: [facility] Work Phone: 10-27-2021 12:51-0500 Body mass index (BMI) [Ratio] 29.5 kg/m2 Dr. Steven Tubbs Work Phone: [facility] Work Phone: 10-27-2021 12:51-0500 Body temperature 97.4 [degF] Dr. Steven Tubbs Work Phone: [facility] Work Phone: 10-27-2021 12:51-0500 Body weight 68.[address] Steven Tubbs Work Phone: [facility] Work Phone: 10-27-2021 12:51-0500 Diastolic blood pressure 86 mm[Hg] Dr. Steven Tubbs Work Phone: [facility] Work Phone: 10-27-2021 12:51-0500 Heart rate 77 /min Dr. Steven Tubbs Work Phone: [facility] Work Phone: 10-27-2021 12:51-0500 Respiratory rate 17 /min Dr. Steven Tubbs Work Phone: [facility] Work Phone: 10-27-2021 12:51-0500 SaO2% (BldA) [Mass fraction] 98 % Dr. Steven Tubbs Work Phone: [facility] Work Phone: 01-13-2022 12:51-0500 Systolic blood pressure 168 mm[Hg] Dr. Steven Tubbs Work Phone: [facility] Work Phone: 10-04-2021 12:10-0500 Body temperature 96.5 [degF] Dr. Steven Tubbs Work Phone: [facility] Work Phone: 10-04-2021 12:10-0500 Diastolic blood pressure 78 mm[Hg] Dr. Steven Tubbs Work Phone: [facility] Work Phone: 10-04-2021 12:10-0500 Heart rate 75 /min Dr. Steven Tubbs Work Phone: [facility] Work Phone: 10-04-2021 12:10-0500 Respiratory rate 16 /min Dr. Steven Tubbs Work Phone: [facility] Work Phone: 10-04-2021 12:10-0500 SaO2% (BldA) [Mass fraction] 97 % Dr. Steven Tubbs Work Phone: [facility] Work Phone: 10-04-2021 12:10-0500 Systolic blood pressure 148 mm[Hg] Dr. Steven Tubbs Work Phone: [facility] Work Phone: Encounters Encounter Date Encounter Type Care Provider Facility Start: 06-08-2025 ambulatory Jorge A Nimco Facility:[facility] Start: 06-08-2025 Logan Ellison MD -[facility] [place] Start: 06-02-2025 End: 06-02-2025 ambulatory Jorge A Barclay MD Work Phone: -[facility] Start: 06-02-2025 End: 06-02-2025 Dr. Logan Ellison MD -[facility] Work Phone: Start: 06-01-2025 ambulatory Jorge A Nimco Facility:[facility] Start: 06-01-2025 Logan Ellison MD - [facility] [place] Start: 05-26-2025 ambulatory Collin Cintron Facility: [facility] Start: 05-26-2025 Dr. Alex Love MD -[facility] Start: 05-25-2025 End: 05-25-2025 Vicente Yeager DO -Endoscopy Work Phone: Start: 05-25-2025 End: 05-25-2025 ambulatory Jorge A Barclay MD Work Phone: -Endoscopy Start: 05-22-2025 Vicente Yeager DO -[facility] Start: 04-20-2025 ambulatory Jorge A Barclay Facility:[facility] Start: 04-20-2025 End: 05-29-2025 Evaluation and management of inpatient Jorge A Barclay MD Work Phone: -Transitional Care Unit Start: 04-20-2025 End: 05-29-2025 Dr. Honorio Nettles MD -[facility] Start: 04-08-2025 End: 04-20-2025 Evaluation and management of inpatient SHAUN CAMEJO Facility:[facility] Start: 04-08-2025 End: 04-08-2025 Dr. [facility] t Work Phone: Start: 04-08-2025 End: 04-08-2025 Emergency department patient visit Jorge A Barclay MD Work Phone: -Emergency Department Work Phone: Start: 04-07-2025 End: 04-07-[address] Alex Love MD -[facility] Work Phone: Start: 04-07-2025 End: 04-07-2025 Dr. Alex Love MD -[facility] Work Phone: Start: 04-07-2025 End: 04-07-2025 ambulatory Jorge A Barclay MD Work Phone: [facility] Work Phone: Start: 04-07-2025 End: 04-07-2025 ambulatory Jorge A Barlcay MD Work Phone: -Outpatient Bone Densitometry Start: 04-07-2025 End: 04-07-[address] Jorge A Barclay MD -[facility]patient [facility] Densitometry Work Phone: Start: 04-07-2025 End: 04-07-2025 Dr. Jorge A Barclay MD -Outpatient Bone Densitometry Work Phone: Start: 04-07-2025 End: 04-07-2025 ambulatory Chalon Nimco Facility:[facility] Start: 04-02-[address] Alex Love MD -[facility] Start: 04-02-2025 Dr. Alex Love MD -[facility] Start: 03-10-2025 End: 03-10-[address] Alex Love MD -[facility] Work Phone: Start: 03-10-2025 End: 03-10-2025 Dr. Alex Love MD -[facility] Work Phone: Start: 03-10-2025 End: 03-10-2025 ambulatory Jorge A Barclay MD Work Phone: [facility] Work Phone: Start: 03-05-[address] Alex Love MD -[facility] Start: 02-09-2025 End: 02-09-[address] Alex Love MD -[facility] Work Phone: Start: 02-09-2025 End: 02-09-2025 Dr. Alex Love MD -[facility] Work Phone: Start: 02-09-2025 End: 02-09-2025 ambulatory Chalon Nimco Facility:[facility] Start: 01-01-2025 Non-patient / Non-visit Princess Roque -[facility] Work Phone: Start: 01-01-2025 ambulatory Chalon Nimco [facility] Start: 12-31-2024 End: 12-31-[address] Alex Love MD -[facility] Work Phone: Start: 12-31-2024 End: 12-31-2024 ambulatory Chalon Nimco Facility:[facility] Start: 12-24-2024 End: 12-24-[address] Alex Love MD -[facility] Work Phone: Start: 12-24-2024 End: 12-24-2024 ambulatory Chalon Nimco Facility:[facility] Start: 12-18-2024 End: 12-18-[address] Stiven Steele MD -[facility] Work Phone: Start: 12-18-2024 End: 12-18-2024 ambulatory Stiven Steele Facility:[facility] Start: 12-01-2024 End: 12-01-2024 Patient encounter procedure Susanne Lopez RACEBOOK WRITER-C -[facility] Work Phone: Start: 12-01-2024 End: 12-01-2024 ambulatory Chalon Nimco Facility:[facility] Start: 11-27-2024 End: 11-27-2024 Patient encounter procedure Susanne Lopez RACEBOOK WRITER-C -Cat Scan [facility] Work Phone: Start: 11-26-2024 End: 11-26-2024 Patient encounter procedure Susanne Lopez RACEBOOK WRITER-C -[facility] Work Phone: Start: 11-26-2024 End: 11-27-2024 ambulatory Chalon Nimco Facility:[facility] Start: 09-24-2024 End: 09-24-2024 ambulatory Chalon Nimco Facility:[facility] Start: 09-18-2024 End: 09-18-2024 ambulatory Steven 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 Facility:[facility] Start: 08-26-2024 End: 08-26-2024 ambulatory Chalon Nimco Facility:[facility] Start: 08-21-2024 End: 08-21-2024 ambulatory Collin Cintron Facility:[facility] Start: 06-24-2024 End: 06-24-2024 ambulatory Chalon Nimco Facility:[facility] Start: 10-09-2023 Registered Recurring DO Kathia Lynn Work Phone: [facility] Start: 10-09-2023 End: 10-09-2023 Patient encounter procedure DO Uyen Lynn Work Phone: [facility] Work Phone: Start: 10-04-2023 End: 10-04-2023 ambulatory DO Uyen Lynn Work Phone: [facility] Work Phone: Start: 10-04-2023 End: 10-04-2023 Patient encounter procedure DO Uyen Lynn Work Phone: [facility] Work Phone: Start: 09-18-2023 End: 09-18-2023 Patient encounter procedure DO Uyen Lynn Work Phone: [facility] Work Phone: Start: 09-18-2023 End: 09-18-2023 Patient encounter procedure DO Uyen Lynn Work Phone: [facility] Work Phone: Start: 09-11-2023 End: 09-11-2023 Patient encounter procedure DO Uyen Lynn Work Phone: [facility] Work Phone: Start: 08-14-2023 End: 08-14-2023 Patient encounter procedure DO Uyen Lynn [facility] Phone: [facility] Work Phone: Start: 07-17-2023 End: 07-17-2023 Patient encounter procedure DO Uyen Carroller Work Phone: [facility] Work Phone: Start: 06-19-2023 End: 06-19-2023 Patient encounter procedure DO Uyen Tapianger Work Phone: [facility] Work Phone: Start: 05-22-2023 End: 05-22-2023 Patient encounter procedure DO Uyen Carroller Work Phone: [facility] Work Phone: Start: 05-22-2023 Registered Recurring DO Kathia n Shane Work Phone: [facility] Start: 05-21-2023 End: 05-21-2023 ambulatory DO Uyen M Shane Work Phone: [facility] Work Phone: Start: 05-21-2023 End: 05-21-2023 Patient encounter procedure DO Uyen Carroller Work Phone: [facility]-Pulmonary Services/Neurology Work Phone: Start: 05-17-2023 End: 05-17-2023 ambulatory DO Uyen M Shane Work Phone: [facility] Work Phone: Start: 05-17-2023 End: 05-17-2023 Patient encounter procedure DO Uyen Carroller Work Phone: [facility] Start: 05-08-2023 Registered Recurring DO Kathia Lynn Work Phone: [facility] Start: 05-08-2023 End: 05-08-2023 Patient encounter procedure DO Uyen Carroller Work Phone: [facility] Work Phone: Start: 05-07-2023 End: 05-07-2023 ambulatory DO Uyen M Shane Work Phone: [facility] Work Phone: Start: 05-07-2023 End: 05-07-2023 Patient encounter procedure DO Uyen Tapianger Work Phone: [facility]Ne[facility] Work Phone: Start: 04-24-2023 Registered Recurring DO Kathia n Shane Work Phone: [facility] Start: 04-24-2023 End: 04-24-2023 Patient encounter procedure DO Uyen Carroller Work Phone: [facility] Work Phone: Start: 04-23-2023 End: 04-23-2023 ambulatory DO Uyen M Shane Work Phone: [facility] Work Phone: Start: 04-23-2023 End: 04-23-2023 Patient encounter procedure DO Uyen Carroller Work Phone: [facility] Services/Neurology Work Phone: Start: 04-19-2023 End: 04-19-2023 Patient encounter procedure DO Uyen Carroller Work Phone: [facility] Work Phone: Start: 04-09-2023 Registered Recurring DO Kathia n Shane Work Phone: [facility] Start: 04-09-2023 End: 04-09-2023 Patient encounter procedure DO Uyen Carroller Work Phone: [facility] Start: 04-03-2023 End: 04-03-2023 ambulatory DO Uyen Lynn Work Phone: [facility] Work Phone: Start: 04-03-2023 End: 04-03-2023 Patient encounter procedure DO Uyen Tapianger Work Phone: [facility]-Laboratory Start: 04-03-2023 End: 04-03-2023 Patient encounter procedure DO Uyen Tapianger Work Phone: [facility] Start: 04-02-2023 Telephone encounter Rand Calzada DO Work Phone: General Surgery Comment on above: Results Start: 03-23-2023 End: 03-23-2023 ambulatory ERIK BAUMANN [facility] Facility:[facility] Start: 03-23-2023 End: 03-23-2023 Patient encounter procedure Rand Calzada DO Work Phone: General Surgery Comment on above: Breast cancer metast asized to axillary lymph node, left (HCC) (Primary Dx) Start: 03-01-2023 End: 03-01-2023 Patient encounter procedure DO Uyen Lynn Work Phone: [facility] Start: 02-14-2023 End: 02-14-2023 Patient encounter procedure DO Uyen Lynn Work Phone: [facility] Start: 01-08-2023 End: 01-08-2023 Patient encounter procedure DO Uyen Lynn Work Phone: [facility] Start: 09-28-2022 End: 09-28-2022 ambulatory RAND CALZADA Facility:[facility] Start: 09-28-2022 End: 09-28-2022 Patient encounter procedure Rand Calzada DO Work Phone: [facility] Comment on above: Localized enlarged l ymph nodes (Primary Dx); Breast cancer metastasized to axillary lymph node, left (HCC) Start: 09-14-2022 End: 09-14-2022 ambulatory [facility] Facility:[facility] Start: 09-14-2022 End: 09-14-2022 Subsequent hospital visit by physician Deidre [facility] ([facility]) Work Phone: Radiology Comment on above: Localized enlarged l ymph nodes [R59.0] Start: 06-15-2022 End: 06-15-2022 [facility] Start: 06-15-2022 End: 06-15-2022 Patient encounter procedure Rand Calzada DO Work Phone: [facility] Comment on above: Localized enlarged l ymph nodes (Primary Dx); Breast cancer metastasized to axillary lymph node, left (HCC) Start: 06-15-2022 End: 06-15-2022 Subsequent hospital visit by physician Diagnostic Mammo [facility] Comment on above: Breast cancer metast asized to axillary lymph node, left (HCC) [C50.912, C77.3] Start: 05-22-2022 Orders Only Ivette Herminia porter THEORETICAL PHYSICS TEACHER Work Phone: [facility] Comment on above: Breast cancer metast asized to axillary lymph node, left (HCC) (Primary Dx) Start: 04-01-2022 End: 04-01-2022 Patient encounter procedure RACEBOOK WRITER-Jean Marie Mcgee RACEBOOK WRITER Work Phone: [facility] Start: 03-31-2022 End: 03-31-2022 Patient encounter procedure RACEBOOK WRITER-Jean Marie Mcgee RACEBOOK WRITER Work Phone: [facility] Start: 03-16-2022 End: 03-16-2022 Patient encounter procedure RACEBOOK WRITER-Jean Marie Mcgee RACEBOOK WRITER Work Phone: [facility] Start: 03-16-2022 Registered Recurring RACEBOOK WRITERDoris Mcgee RACEBOOK WRITER Work Phone: [facility] Start: 02-21-2022 Non-patient / Non-visit RACEBOOK WRITER-Jean Marie Mcgee RACEBOOK WRITER Work Phone: [facility] Start: 02-16-2022 End: 02-16-2022 Patient encounter procedure RACEBOOK WRITERDoris Mcgee RACEBOOK WRITER Work Phone: [facility] Start: 01-19-2022 End: 01-19-2022 Patient encounter procedure RACEBOOK WRITERDoris Mcgee RACEBOOK WRITER Work Phone: [facility] Start: 01-09-2022 End: 01-09-[address] Steven Tubbs Work Phone: [facility] Start: 01-02-2022 End: 01-02-[address] Steven Tubbs Work Phone: [facility] Start: 12-22-2021 End: 12-22-[address] Steven Tubbs Work Phone: [facility] Start: 12-08-2021 End: 12-08-2021 Subsequent hospital visit by physician Diagnostic Mammo [facility] Start: 11-23-2021 End: 11-23-[address] Steven Tubbs Work Phone: [facility] Start: 11-21-2021 End: 11-21-[address] Steven Tubbs Work Phone: [facility] Start: 11-17-2021 End: 11-17-[address] Steven Tubbs Work Phone: [facility] Start: 11-16-[address] Steven Tubbs Work Phone: [facility] Start: 11-15-2021 End: 11-15-[address] Steven Tubbs Work Phone: [facility] Start: 11-09-2021 End: 11-09-[address] Steven Tubbs Work Phone: [facility] Start: 11-07-2021 Non-patient / Non-visit Dr. Mariana Tubbs Work Phone: [facility] Start: 11-07-2021 End: 11-07-[address] Steven Tubbs Work Phone: [facility] Start: 11-04-2021 End: 11-04-[address] Steven Tubbs Work Phone: [facility]Nuclear Medicine, [facility] Start: 11-02-2021 End: 11-02-[address] Steven Tubbs Work Phone: [facility] Start: 10-27-2021 End: 10-27-[address] Steven Tubbs Work Phone: [facility]-Laboratory, Specimen Start: 10-27-2021 End: 10-27-[address] Steven Tubbs Work Phone: [facility] Start: 10-26-2021 End: 10-26-[address] Steven Tubbs Work Phone: [facility]-Outpatient Breast Imaging Start: 10-04-2021 End: 10-04-[address] Steven Tubbs Work Phone: [facility] Procedures Date Procedure Procedure Detail Performing Clinician Start: 06-08-2025 Blood count smear mcrscp w/mnl difrntl wbc count Jorge A Barclay MD Work Phone: Start: 06-08-2025 Mean corpuscular hemoglobin concentration determination Jorge A Barclay MD Work Phone: Start: 06-08-2025 Nucleated red blood cell count procedure Jorge A Barclay MD Work Phone: Start: 06-08-2025 Platelet mean volume determination Darwin Barclay MD Work Phone: Start: 06-01-2025 Blood count smear mcrscp w/mnl difrntl wbc count Jorge A Barclay MD Work Phone: Start: 06-01-2025 Mean corpuscular hemoglobin concentration determination Jorge A Barclay MD Work Phone: Start: 06-01-2025 Nucleated red blood cell count procedure Jorge A Barclay MD Work Phone: Start: 06-01-2025 Platelet mean volume determination Darwin Barclay MD Work Phone: Start: 06-01-2025 Vitamin D, 25-hydroxy measurement Jorge A Barclay MD Work Phone: Start: 05-26-2025 Procedure Jorge A Barclay MD Work Phone: Start: 05-26-2025 Blood count smear mcrscp w/mnl difrntl wbc count Jorge A Barclay MD Work Phone: Start: 05-26-2025 Estimated creatinine clearance Jorge A avelar MD Work Phone: Start: 05-26-2025 Mean corpuscular hemoglobin concentration determination Jorge A Barclay MD Work Phone: Start: 05-26-2025 Nucleated red blood cell count procedure Jorge A Barclay MD Work Phone: Start: 05-26-2025 Platelet mean volume determination Darwin Barclay MD Work Phone: Start: 05-25-2025 Esophagogastroduodenoscopy Jorge A García Work Phone: Start: 05-19-2025 Blood count smear mcrscp w/mnl difrntl wbc count Jorge A Barclay MD Work Phone: Start: 05-19-2025 Estimated creatinine clearance Jorge A avelar MD Work Phone: Start: 05-19-2025 Mean corpuscular hemoglobin concentration determination Jorge A Barclay MD Work Phone: Start: 05-19-2025 Nucleated red blood cell count procedure Jorge A Barclay MD Work Phone: Start: 05-19-2025 Platelet mean volume determination Darwin Barclay MD Work Phone: Start: 05-15-2025 Videoswallow Jorge A Barclay MD Work Phone: Start: 05-14-2025 Plain x-ray of wrist Jorge A Barclay MD Work Phone: Start: 05-12-2025 Urine microscopy: red cells Jorge A Barclay MD Work Phone: Start: 05-12-2025 Urnls dip stick/tablet reagent auto microscopy Jorge A Barclay MD Work Phone: Start: 05-12-2025 Plain X-ray abdomen Jorge A Barclay MD Work Phone: Start: 05-12-2025 Urine culture Jorge A Barclay MD Work Phone: Start: 05-05-2025 Blood disorder - initial assessment Jorge A Barclay MD Work Phone: Start: 05-05-2025 Red blood cell morphology Jorge A Barclay MD Work Phone: Start: 04-29-2025 Urine culture Jorge A Barclay MD Work Phone: Start: 04-27-2025 Plain x-ray of wrist Jorge A Barclay MD Work Phone: Start: 04-23-2025 Assay of triglycerides Jorge A Barclay MD Work Phone: Start: 04-23-2025 Total cholesterol:HDL ratio measurement Jorge A Barclay MD Work Phone: Start: 04-20-2025 Assay of magnesium Johnson Beaver Zammit PA-C Work Phone: Start: 04-20-2025 Physiotherapy of chest Naserin Emmanuel DISBURSEMENT CLERK-1ST GRADE TEACHER Work Phone: Start: 04-19-2025 Physiotherapy of chest Naserin Emmanuel DISBURSEMENT CLERK-1ST GRADE TEACHER Work Phone: Start: 04-19-2025 Assay of magnesium Johnson Beaver Zammit PA-C Work Phone: Start: 04-18-2025 Assay of magnesium Johnson Beaver Zammit PA-C Work Phone: Start: 04-18-2025 Physiotherapy of chest Naserin M Emmanuel DISBURSEMENT CLERK-1ST GRADE TEACHER Work Phone: Start: 04-17-2025 CARDIAC RHYTHM (SCANNED) Other Other OT Start: 04-17-2025 Assay of magnesium Johnson Beaver Zammit PA-C Work Phone: Start: 04-17-2025 Physiotherapy of chest Naserin Cha Benitez DISBURSEMENT CLERK-1ST GRADE TEACHER Work Phone: Start: 04-16-2025 Assay of magnesium Johnson Isbell PA-C Work Phone: Start: 04-16-2025 Physiotherapy of chest Naserin Cha Emmaunel DISBURSEMENT CLERK-1ST GRADE TEACHER Work Phone: Start: 04-15-2025 Dup-scan xtr veins unilateral/limited study Tyler Lantigua MD Work Phone: Start: 04-15-2025 Physiotherapy of chest Naserin Cha Emmanuel DISBURSEMENT CLERK-1ST GRADE TEACHER Work Phone: Start: 04-15-2025 Assay of magnesium Johnson Isbell PA-C Work Phone: Start: 04-14-2025 Radex wrist complete minimum 3 views Anabel Sarah MD Work Phone: Start: 04-14-2025 Radex wrist complete minimum 3 views Saloni Briggs MD Work Phone: Start: 04-14-2025 End: 04-14-2025 Radex shoulder complete minimum 2 views Tyler Lantigua MD Work Phone: Start: 04-13-2025 Lactate dehydrogenase ldh Lucila García Work Phone: Start: 04-13-2025 Radiologic exam chest single view Homer Greco PA-C Work Phone: Start: 04-13-2025 Physiotherapy of chest Naserin Cha Duranh DISBURSEMENT CLERK-1ST GRADE TEACHER Work Phone: Start: 04-13-2025 Assay of magnesium Johnson Isbell PA-C Work Phone: Start: 04-12-2025 Radex spine cervical 2 or 3 views Eric Marshall MD Work Phone: Start: 04-12-2025 Ct thorax w/o contrast material Elie Eubanks Emmanuel DISBURSEMENT CLERK-1ST GRADE TEACHER Work Phone: Start: 04-12-2025 End: 04-12-2025 Physiotherapy of chest Elie Benitez DISBURSEMENT CLERK-1ST GRADE TEACHER Work Phone: Start: 04-12-2025 Respiratory virus DNA+RNA [Identifier] in Unspecified specimen by LANE with probe detection Vicky Bryan Angus PA-C Work Phone: Start: 04-12-2025 Radiologic exam chest single view Melonie L Ciupak PA-C Start: 04-12-2025 Assay of magnesium Johnson Isbell PA-C Work Phone: Start: 04-11-2025 Retired procedure Taylor Arnold DISBURSEMENT CLERK-1ST GRADE TEACHER Work Phone: Start: 04-11-2025 Blood count complete automated Taylor Arnold DISBURSEMENT CLERK-1ST GRADE TEACHER Work Phone: Start: 04-11-2025 End: 04-11-2025 Plateletpheresis [...] Start: 04-10-2025 Blood count hematocrit Elie Benitez DISBURSEMENT CLERK-1ST GRADE TEACHER Work Phone: Start: 04-10-2025 IMPLANT RECORD (SCANNED) Other Other OT Start: 04-10-2025 End: 04-10-2025 Transfusion of packed red blood cells Elie Benitez DISBURSEMENT CLERK-1ST GRADE TEACHER Work Phone: Start: 04-10-2025 Prothrombin time Dorene Gretchen [place] DISBURSEMENT CLERK-1ST GRADE TEACHER Work Phone: Start: 04-10-2025 Assay of magnesium Johnson Isbell PA-C Work Phone: Start: 04-10-2025 Hepatic function panel Dorene Lovelace DISBURSEMENT CLERK-1ST GRADE TEACHER Work Phone: Start: 04-09-2025 End: 04-09-2025 Mri spinal canal cervical w/o contrast matrl Treasure Whitaker DISBURSEMENT CLERK-1ST GRADE TEACHER Work Phone: Start: 04-09-2025 Radiologic exam esophagus single contrast study Johnson Treadwellit PA-C Work Phone: Start: 04-09-2025 Blood count hematocrit Johnson Isbell PA-C Work Phone: Start: 04-09-2025 Echo tthrc r-t 2d w/wom-mode compl spec&colr d Johnson Isbell PA-C Work Phone: Start: 04-09-2025 IP CONSULT TO SPEECH THERAPY Johnson dorado PA-C Work Phone: Start: 04-09-2025 Radiologic exam chest single view Claudia Bernardo MD Work Phone: Start: 04-09-2025 ABORH TYPE RECONFIRMATION Kortney Cain DO Work Phone: Start: 04-09-2025 Drug tst prsmv instrmnt chem analyzers pr date David Patterson MD Work Phone: Start: 04-09-2025 EXTRA MICRO David Patterson MD Work Phone: Start: 04-09-2025 Hemoglobin glycosylated a1c Johnson Barrow zaina PA-C Work Phone: Start: 04-09-2025 URINALYSIS REFLEX TO CULTURE David eric MD Work Phone: Start: 04-09-2025 Urnls dip stick/tablet reagent auto microscopy David Patterson MD Work Phone: Start: 04-08-2025 End: 04-09-2025 Transfusion of packed red blood cells Treasure D Dye DISBURSEMENT CLERK-1ST GRADE TEACHER Work Phone: Start: 04-08-2025 Ct angio abd&plvis cntrst mtrl w/wo cntrst img Treasure D Dye DISBURSEMENT CLERK-1ST GRADE TEACHER Work Phone: Start: 04-08-2025 Ct angiography chest w/contrast/noncontrast Treasure D Dye DISBURSEMENT CLERK-1ST GRADE TEACHER Work Phone: Start: 04-08-2025 Radex shoulder complete minimum 2 views Johnson Isbell PA-C Work Phone: Start: 04-08-2025 Clotting factor viii vw factor antigen Carlos Eduardo Oscar MD, PhD Work Phone: Start: 04-08-2025 Blood count complete automated Treasure Ricky Whitaker DISBURSEMENT CLERK-1ST GRADE TEACHER Work Phone: Start: 04-08-2025 Ecg routine ecg w/least 12 lds trcg only w/o i&r David Patterson MD Work Phone: Start: 04-08-2025 Glucose measurement, blood Ryan greer MD, PhD Work Phone: Start: 04-08-2025 Antibody screen Elliot Murillo MD Work Phone: Start: 04-08-2025 Radiologic examination pelvis 1/2 views David Patterson MD Work Phone: Start: 04-08-2025 Radiologic exam chest single view Michae nakul Patterson MD Work Phone: Start: 04-08-2025 Glucose measurement, blood Ryan greer MD, PhD Work Phone: Start: 04-08-2025 Antibody screen SHAUN CAMEJO Comment on above: Performed By: #### XM #### [facility] [address] Start: 04-08-2025 Assay of thyroid stimulating hormone [...] Start: 04-08-2025 PREPARE TO TRANSFUSE PLATELET Melonie L C iupak PA-C Start: 04-08-2025 PREPARE TO TRANSFUSE RED BLOOD CELLS Treasure Ricky Dye DISBURSEMENT CLERK-1ST GRADE TEACHER Work Phone: Start: 04-08-2025 RAINBOW DRAW David Patterson MD Work Phone: Start: 04-08-2025 Blood culture Jorge A Barclay MD Work Phone: Start: 04-08-2025 Urine culture Jorge A Barclay MD Work Phone: Start: 04-08-2025 Plain X-ray of tibia and fibula Jorge A peterson MD Work Phone: Start: 04-08-2025 Urine microscopy: red cells Jorge A Barclay MD Work Phone: Start: 04-08-2025 Urnls dip stick/tablet reagent auto microscopy Jorge A Barclay MD Work Phone: Start: 04-08-2025 End: 04-08-2025 Assay of lactate Jorge A Barclay MD Work Phone: Start: 04-08-2025 CT angiography of head and neck Jorge A peterson MD Work Phone: Start: 04-08-2025 CT cervical spine without contrast Darwin Barclay MD Work Phone: Start: 04-08-2025 CT of face Jorge A Barclay MD Work Phone: Start: 04-08-2025 CT of head without contrast Jorge A Barclay MD Work Phone: Start: 04-08-2025 CT of thorax, abdomen and pelvis with contrast Jorge A Barclay MD Work Phone: Start: 04-08-2025 Calculation of international normalized ratio Jorge A Barclay MD Work Phone: Start: 04-08-2025 Estimated creatinine clearance Jorge A avelar MD Work Phone: Start: 04-08-2025 Mean corpuscular hemoglobin concentration determination Jorge A Barclay MD Work Phone: Start: 04-08-2025 Nucleated red blood cell count procedure Jorge A Barclay MD Work Phone: Start: 04-08-2025 Platelet mean volume determination Darwin Barclay MD Work Phone: Start: 04-07-2025 Dual energy X-ray absorptiometry Jorge A Barclay MD Work Phone: Start: 04-02-2025 Blood count smear mcrscp w/mnl difrntl wbc count Jorge A Barclay MD Work Phone: Start: 04-02-2025 Estimated creatinine clearance Jorge A avelar MD Work Phone: Start: 04-02-2025 Mean corpuscular hemoglobin concentration determination Jorge A Barclay MD Work Phone: Start: 04-02-2025 Nucleated red blood cell count procedure Jorge A Barclay MD Work Phone: Start: 04-02-2025 Platelet mean volume determination Darwin Barclay MD Work Phone: Start: 03-05-2025 Estimated creatinine clearance Jorge A avelar MD Work Phone: Start: 12-17-2024 CA 125 measurement Jorge A Barclay MD Work Phone: Start: 12-10-2024 Procedure Jorge A Barclay MD Work Phone: Start: 11-27-2024 CT of thorax and abdomen with contrast Jorge A Barclay MD Work Phone: Start: 11-26-2024 Measurement of renal function Jorge A rust MD Work Phone: Comment on above: GFR Calc Start: 11-06-2023 Allergen spec ige crude allergen extract each Jorge A Barclay MD Work Phone: Start: 10-04-2023 CT of chest and abdomen DO Uyen oliva Work Phone: Start: 05-08-2023 Trichomonas screening test Jorge A García Work Phone: Start: 03-23-2023 HER2 (4B5) BY IHC Rand A Zheng DO Work Phone: Start: 03-23-2023 Level iv [...] Work Phone: Start: 12-08-2021 SURGICAL PATHOLOGY Rand A Zheng DO Work Phone: Start: 12-08-2021 SURGICAL PATHOLOGY, CONVERTED Rand Calzada DO Work Phone: Start: 12-08-2021 Digital breast tomosynthesis bilateral Rand Calzada DO Work Phone: Start: 12-08-2021 Us breast uni real time with image limited Rand Calzada DO Work Phone: Start: 11-21-2021 MRI of [...] Dr. Steven Tubbs Work Phone: Urine culture RACEBOOK WRITER-C Kortney Barn er RACEBOOK WRITER Work Phone: Plan of Treatment Date Care Activity Detail Author Start: 10-21-2025 Tetanus vaccination [facility] Start: 06-15-2025 Influenza vaccination [facility] Start: 05-29-2025 Patient discharge [facility] Start: 05-28-2025 Developing a treatme nt plan [facility] Start: 05-28-2025 Development of care plan [facility] Start: 05-28-2025 Speech therapy management [facility] Start: 05-26-2025 End: 05-26-2025 ambulatory [facility] Start: 05-26-2025 Patient discharge [facility] Start: 05-25-2025 Egd insert guide wir e dilator passage esophagus [facility] Start: 05-25-2025 Egd transoral biopsy single/multiple [facility] Start: 05-19-2025 Speech therapy management [facility] Start: 05-19-2025 Developing a treatme nt plan [facility] Start: 05-18-2025 Development of care plan [facility] Start: 05-15-2025 Referral to gastroenterology service [facility] Start: 05-13-2025 Referral to gastroenterology service [facility] Start: 05-07-2025 End: 05-07-2025 ambulatory [facility] Start: 05-01-2025 [facility] Start: 05-01-2025 End: 05-01-2025 ambulatory [facility] [place] Start: 04-27-2025 [facility] Start: 04-23-2025 Speech therapy management [facility] Start: 04-23-2025 [facility] Start: 04-22-2025 Verification routine [facility] Start: 04-21-2025 Speech therapy management [facility] Start: 04-21-2025 Development of care plan [facility] Start: 04-21-2025 Developing a treatme nt plan [facility] Start: 04-21-2025 Speech therapy assessment [facility] Start: 04-20-2025 Admission procedure [facility] Start: 04-20-2025 Introduction of urin abiodun catheter [facility] Start: 04-20-2025 Measuring intake and output [facility] Start: 04-20-2025 Patient referral to dietitian [facility] Start: 04-20-2025 Referral to occupati onal therapist [facility] Start: 04-20-2025 Referral to service [facility] Start: 04-20-2025 Vital signs measurements [facility] Start: 04-20-2025 End: 04-20-2025 [facility] Start: 04-08-2025 Bacteria identified in Blood by Culture Blood Culture [facility] Start: 04-08-2025 Bacteria identified in Urine by Culture Urine Culture [facility] Start: 04-08-2025 [facility] Start: 04-08-2025 End: 04-08-2025 [facility] Start: 12-24-2024 Patient referral [facility] Work Phone: Start: 06-15-2024 Covid-19 Vaccine (1 - 2024-25 season) Covid-19 Vaccine ( season) [facility] Start: 06-15-2024 Influenza vaccination Influenz a Vaccine (#1) [facility] Start: 06-15-2024 [facility] Start: 10-15-2023 Advance Directive Discussion Advance Directive Discussion [facility] Start: 06-15-2023 Influenza vaccination INFLUENZ A (Season Ended) [facility] Start: 04-06-2023 End: 06-06-2023 CREATININE BLD CREATININE BLD Lab Routine Expected: 04/06/2023, Expires: 06/06/2023 [facility] Work Phone: Comment on above: Expected: 04/06/2023 , Expires: 06/06/2023 Start: 12-08-2022 Screening for malign ant neoplasm of breast [facility] Start: 10-15-2022 ADVANCE DIRECTIVE DISCUSSION ADVANCE DIRECTIVE DISCUSSION [facility] Start: 10-15-2022 DEPRESSION ASSESSMENT DEPRESSION ASS ESSMENT [facility] Start: 06-15-2022 End: 08-15-2022 CREATININE BLD CREATININE BLD Lab Routine Breast cancer metastasized to axillary lymph node, left (HCC) Expected: 06/15/2022, Expires: 08/15/2022 [facility] Work Phone: Comment on above: Expected: 06/15/2022 , Expires: 08/15/2022 Start: 06-15-2022 Influenza vaccination INFLUENZA (#1) [facility] Start: 10-27-2021 Patient referral [facility] Work Phone: Start: 10-15-2021 ADVANCE DIRECTIVE DISCUSSION ADVANCE DIRECTIVE DISCUSSION [facility] Start: 10-15-2021 DEPRESSION ASSESSMENT DEPRESSION ASS ESSMENT [facility] Start: 03-24-2020 [facility] Start: 2018 RSV Vaccine (1 - 1-d ose 75+ series) RSV Vaccine (1 - 1-dose 75+ series) [facility] Start: 2018 [facility] Start: 10-16-2014 Pneumococcal vaccination [facility] Start: 2008 BONE DENSITY BONE DENSITY [facility] Start: 2008 Pneumococcal Vaccine : 65+ (1 of 1 - PCV) Pneumococcal Vaccine: 65+ (1 of 1 - PCV) [facility] Start: 2008 PNEUMOCOCCAL: 65+ (1 - PCV) PNEUMOCOCCAL: 65+ (1 - PCV) [facility] Start: 2008 Screening for osteoporosis Bon e Density Screening [facility] Start: 1993 SHINGRIX VACCINE (1 of 2) DOSHI GRIX VACCINE (1 of 2) [facility] Start: 1988 DIABETES SCREEN [facility]EN [facility] Start: 1988 Diabetes Screening Diabetes Screenin g [facility] Start: 1988 Screening for malign ant neoplasm of colon [facility] Start: 1964 Screening for malign ant neoplasm of cervix [facility] Start: 1962 Urine microalbumin profile [facility] Start: 1961 Anxiety Screening Anxiety Screening [facility] Start: 1961 Depression Screening Depression Scre ening [facility] Start: 1961 HEPATITIS C SCREENING HEPATITIS C SC REENING [facility] Start: [address] [facility] assessment DEPRESSION SCREENING [facility] Start: 02-11-1946 COVID-19 VACCINE (#1) COVID-19 VACCI NE (#1) [facility] Start: 1945 Screening for osteoporosis [facility] Anion gap in Serum o r Plasma [facility] ARTERIAL LINE [facility] BUN/Creatinine ratio [facility] Calcium [Mass/volume ] in Serum or Plasma [facility] Cancer Ag 125 [Units/volume] in Serum or Plasma [facility] Cancer Ag 125 [Units/volume] in Serum or Plasma [facility] Cancer Ag 15-3 [Pres ence] in Serum or Plasma [facility] Cancer Ag 15-3 [Pres ence] in Serum or Plasma [facility] Cancer Ag 27-29 [Pre sence] in Serum or Plasma [facility] Cancer Ag 27-29 [Pre sence] in Serum or Plasma [facility] Carbon dioxide, tota l [Moles/volume] in Central venous blood [facility] Carcinoembryonic Ag [Mass/volume] in Serum or Plasma [facility] Carcinoembryonic Ag [Mass/volume] in Serum or Plasma [facility] CBC W Auto Different ial panel - Blood [facility] CBC W Auto Different ial panel - Blood [facility] CBC W Auto Different ial panel - Blood [facility] CBC W Auto Different ial panel - Blood [facility] CBC W Auto Different ial panel - Blood [facility] Comprehensive metabo lic 2000 panel - Serum or Plasma [facility] Creatinine [Mass/vol ume] in Serum or Plasma [facility] CT Chest W contrast IV [facility] End: 07-15-2023 CT CHEST W IVCON CT CHEST W IVCON Radiology Routine Localized enlarged lymph nodes 1 Occurrences starting 06/15/2022 until 07/15/2023 [facility] Work Phone: Comment on above: 1 Occurrences starti ng 06/15/2022 until 07/15/2023 End: 11-04-2023 CT CHEST W IVCON CT CHEST W IVCON Radiology Routine Localized enlarged lymph nodes 1 Occurrences starting 10/06/2022 until 11/04/2023 [facility] Work Phone: Comment on above: 1 Occurrences starti ng 10/06/2022 until 11/04/2023 End: 04-13-2025 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, 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 [facility] Work Phone: End: 06-21-2023 Diagnostic mammography computer-aided detcj uni [facility] Radiology Routine Breast cancer metastasized to axillary lymph node, left (HCC) 1 Occurrences starting 05/22/2022 until 06/21/2023 [facility] Work Phone: Comment on above: 1 Occurrences starti ng 05/22/2022 until 06/21/2023 End: 04-08-2025 ED US FAST [facility] Erythrocyte mean corpuscular volume determination [facility] GENERAL CVC - INTRODUCER/DIALYSIS/STANDA RD [facility] Work Phone: Glucose [Mass/volume ] in Serum or Plasma [facility] Hematocrit [Volume Fraction] of Blood [facility] Hemoglobin [Mass/vol ume] in Blood [facility] Lactate dehydrogenas e measurement [facility] Lactate dehydrogenas e measurement [facility] Lactate dehydrogenas e measurement [facility] Leukocytes [#/volume ] in Blood [facility] Magnesium [Mass/volu me] in Serum or Plasma [facility] Mean corpuscular hemoglobin concentration determination [facility] Mean corpuscular hemoglobin determination [facility] Measurement of renal function [facility] Neutrophil count [facility] Neutrophil percent differential count [facility] Patient referral [facility] Work Phone: Platelets [#/volume] in Blood [facility] Potassium measurement [facility] Procedure [facility] Unspecified body region [facility] End: 04-08-2025 PV FLUOROSCOPY OR [facility] Red blood cell count [facility] Red cell distributio n width determination [facility] End: 04-10-2025 RF Less than 1 hour [facility] End: 04-14-2025 RF Less than 1 hour [facility] Work Phone: Serum chloride measurement [facility] Sodium measurement [facility] Troponin T.cardiac [Mass/volume] in Serum or Plasma by High sensitivity method [facility] Urea nitrogen [Mass/volume] in Serum or Plasma [facility] Urine culture [facility] End: 06-21-2023 Us breast uni real time with image limited [facility] BREAST [facility] Radiology Routine Breast cancer metastasized to axillary lymph node, left (HCC) 1 Occurrences starting 05/22/2022 until 06/21/2023 [facility] Work Phone: Comment on above: 1 Occurrences starti ng 05/22/2022 until 06/21/2023 [facility] [place] Immunization Date Immunization Notes Care Provider Sudhakar diaz 08-01-2024 influenza, high dose seasonal, preservative-free Jorge A Barclay MD Work Phone: [facility] 08-28-2023 Influenza High-Dose Quadrivalent Jorge A Barclay MD Work Phone: [facility] 09-28-2021 Covid (Pfizer) Jorge A García Work Phone: [facility] 09-15-2021 influenza, injectabl e, quadrivalent, preservative free Jorge A Barclay MD Work Phone: [facility] 02-10-2021 Covid (Moderna) Jorge A Barclay MD Work Phone: [facility] 01-31-2021 Covid (Pfizer) Jorge A García Work Phone: [facility] 01-13-2021 Josafatid (Moderna) Jorge A Barclay MD Work Phone: [facility] 12-13-2020 Covid (Pfizer) Jorge A García Work Phone: [facility] 08-17-2020 Influenza High-Dose Quadrivalent Jorge A Barclay MD Work Phone: [facility] 08-14-[address] Steven Tubbs Work Phone: [facility] 08-14-2020 influenza virus vaccine, unspecified formulation Ct (I-Stat) Work Phone: [facility] 01-28-2020 zoster vaccine recombinant Jorge A Barclay MD Work Phone: [facility] 09-03-2019 influenza, high dose seasonal, preservative-free Jorge A Barclay MD Work Phone: [facility] 07-09-2018 influenza, injectabl e, quadrivalent, preservative free Jorge A Barclay MD Work Phone: [facility] 07-02-2018 influenza, high dose seasonal, preservative-free Jorge A Barclay MD Work Phone: [facility] 06-25-2017 influenza, injectabl e, quadrivalent, preservative free Jorge A Barclay MD Work Phone: [facility] 07-20-2016 influenza, injectabl e, quadrivalent, preservative free Jorge A Barclay MD Work Phone: [facility] 10-21-2015 tetanus toxoid, redu ruben diphtheria toxoid, and acellular pertussis vaccine, adsorbed Jorge A Barclay MD Work Phone: [facility] 10-16-2013 pneumococcal conjuga te vaccine, 13 valent Jorge A Barclay MD Work Phone: [facility] Payers Date Payer Category Payer Self-pay [id number] 2016 Managed Care (unspecified) [id number] 2016 Unknown [place] [facility] DIC[facility] SUPPLEMENT [id number] 2016-Present [phone] [address] [place] [address] Indemnity [id number] 2008 Medicare [id number] 2008 Medicare [id number] 2008 Medicare [id number] 2008 Unknown [id number] 1943 Unknown [id number] 2.16.840.1.250688.3.579. 2.594 Unknown [id number] 2.16.840.1.401390.3.579. 2.462 Unknown [id number] 2.16.840.1.869781.3.579. 2.462 Unknown [id number] 2.16.840.1.714653.3.579. 2.462 Unknown [id number] 2.16.840.1.429170.3.579. 2.462 Unknown [id number] 2.16.840.1.819890.3.579. 2.462 Unknown [id number] 2.16.840.1.282578.3.579. 2.462 Unknown [id number] 2.16.840.1.640294.3.579. 2.462 Unknown [id number] 2.16.840.1.564166.3.579. 2.462 Unknown [id number] 2.16840.1.994157.3.579. 2.462 Unknown [id number] 2.16.840.1.479740.3.579. 2.462 Unknown [id number] 2.840.1.296694.3.579. 2.462 Unknown [id number] 2.16840.1.963861.3.579. 2.462 Unknown [id number] 2.840.1.004658.3.579. 2.462 Unknown [id number] 2.16840.1.312469.3.579. 2.462 Unknown [id number] 2.16840.1.232965.3.579. 2.462 Unknown [id number] 2.16.840.1.110520.3.579. 2.462 Unknown [id number] 2.16.840.1.003270.3.579. 2.462 Unknown [id number] 2.16.840.1.262634.3.579. 2.462 Unknown [id number] 2.16.840.1.021143.3.579. 2.462 Unknown [id number] 2.16.840.1.536874.3.579. 2.462 Unknown [id number] 2.16840.1.051045.3.579. 2.462 Unknown [id number] 2.16.840.1.086086.3.579. 2.462 Unknown [id number] 2.16.840.1.970703.3.579. 2.462 Unknown [id number] 2.16.840.1.250633.3.579. 2.462 Unknown [id number] 2.16840.1.081388.3.579. 2.462 Unknown [id number] 2.16840.1.707079.3.579. 2.462 Unknown [id number] 2.840.1.350314.3.579. 2.462 Social History Date Type Detail Facility Start: 01-02-2022 End: 09-18-2023 Tobacco smoking status ARIS Unknown if ever smoked [facility] Start: 12-01-2020 None [facility] Start: 12-01-2020 Spouse/ Signif icant Other [facility] Start: 12-01-2020 Non-smoker [facility] Start: 1945 Sex Assigned At Female [facility] [place] Start: 09-03-2020 End: 04-08-2025 Tobacco smoking status NHIS Never smoked tobacco [facility] Start: 09-03-2020 End: 06-15-2022 Tobacco use and exposure Smokeless tobacco non-user [facility] Start: 1945 Sex Assigned At Not on file [facility] Start: 06-15-2022 End: 04-09-2025 History of Social function [facility] Start: 06-15-2022 End: 04-09-2025 Tobacco use panel [facility] National Score (1-100), lower number is lower risk Not on file [facility] Start: 11-08-2021 End: 12-08-2021 Exposure to SARS-CoV-2 (event) Not sure [facility] Start: 04-08-2025 Sex Female (finding) [facility] Start: 04-21-2025 End: 08-27-2025 Tobacco smoking status NHIS Current some day smoker [facility] Start: 05-25-2025 Cigars;Non-smoker [facility] Medical Equipment Procedure Code Equipment Code Equipment Origin al Text Equipment Identifier Dates LAURIECEMENT [id number] FDA Start: 04-22-2018 DOUGH,CEMENT 6191-1-010 FDA [...] X3 TIB IAL INSERT-PS FDA Start: 04-22-2018 DOUGGretchen,CEMENT 6191-1-010 FDA Start: 04-22-2018 DOUGH,CEMENT 6191-1-010 [...] Assessment Result Facility 05-29-2025 Functional status Chair [facility] Work Phone: 05-25-2025 Functional status Bedrest [facility] Work Phone: Mental Status Date Assessment Result Facility 05-29-2025 Cognitive function Voice/Name [facility] Work Phone: 05-25-2025 Cognitive function Awake;Alert;Appropriat e [facility] Work Phone: 05-25-2025 Cognitive function Voice/Name [facility] Work Phone: 05-25-2025 Cognitive function Voice/Name [facility] Work Phone: 05-22-2025 Cognitive function [facility]ropriate[facility] Work Phone: Clinical Notes 12-08-2021 to 05-26-2025 Note Date & Type Note Facility 05-26-2025 Discharge summary Note Date/Time May 26, 2025 8:45pm [facility] Medical Records Department [address] [place] [address] Discharge Summary 05/26/252035 MR#: [id number] Acct: [id number] Name: ANAY SAMUELS Rep #:[id number] : 1945 79 From: Honorio Nettles MD PCP: Dr. Jorge A Barclay MD Status:ADM IN Location: [place] [address] Providers Date of Admission: 04/20/25 Primary Care Physician: Jorge A Barclay MD Consultations 05/13/25 17:30 Consult: Gastroenterology Routine Consulting Provider: [facility] Reason for Consult: Esophageal dysmotility. EMERGENT Consult: No Notified: Yes Date Notified: 05/13/25 Time Notified: 17:30 Method of Notification: Text 05/15/25 14:05 Consult: Gastroenterology [facility]ine [facility] Reason for Consult: esophageal retention and vomiting [...] - Continue present medications. Discharge 05/29/20[facility] to [facility]. Physical Exam Const alert General Appearance: cooperative [...] Neut % (Auto) 57.6, Lymph % (Auto)29.1, [place] % (Auto) 8.4, Eos % (Auto) 3.7, [...] instructions: No Additional Instructions: Discharge 05/29/[address] [facility], private pay, part B therapies. Please Follow Up With: Jorge A Barclay MD When: After discharge from [facility]. Meaningful Use Info Meaningful Use Meaningful Use [...] Nettles Chi Primary Care Provider: Jorge A Barclay Instructions Additional Instructions / Restrictions: Discharge 05/29/[address] [facility], private pay, part B therapies. Discharge [...] 500 mg capsule 1,000 mg PO Q8 yscyfokw-ozdmetc-ydjfjntv-zinc 3.5-0.2-69-16.5 % paste 1 applic topical BID [...] night. Referrals / Follow Up: Jorge A Barclay MD [Primary Care Provider] - Disposition Disposition (needs filled in before D/C Order can be placed): NonSkilled NH/Intermed Care 05/26/252044 <Electronically signed by Honorio Nettles MD> Cosigner Signature (if applicable): CC: Dr. Jorge A Barclay MD; Dr. Honorio Nettles MD~ Signed [facility] Work Phone: 1(233) 682-323708-12-2025 Discharge summary Author Honorio Nettles [facility] Note Date/Time May 26, 2025 8: 45pm [facility] Medical Records Department [address] [place] [address] Transfer to [facility] MR#: [id number] Acct: [id number] Name: ANAY SAMUELS Rep #:[id number] : 1945 79 From: Honorio Nettles MD PCP: Dr. Jorge A Barclay MD Status:ADM IN Certification of patient admission REQUIRED AT TIME OF ADMISSION. I CERTIFY THAT POST-HOSPITAL ECF SERVICES ARE REQUIRED TO BE GIVEN ON AN IN-PATIENT BASIS BECAUSE OF THE ABOVE NAMED PATIENT'S NEED FOR USP CARE ON A CONTINUING BASIS FOR THE CONDITION(S) FOR WHICH HE/SHE WAS RECEIVING IN-PATIENT HOSPITAL SERVICES PRIOR TO HIS/HER TRANSFER TO THE F. 05/26/252044<Electronically signed by Honorio Nettles MD> Diet [...] Will continue regular diet - consistency per SIDEHAND Will continue 8 oz EPHP tid w/ meals and orange juice/coffee w/ breakfast Follow Up Care Please Follow Up With: Jorge A Barlcay MD When: within 7-10 days of discharge [...] Nettles Chi Primary Care Provider: Jorge A Barclay Instructions Additional Instructions / Restrictions: Discharge 05/29/[address] [facility], private pay, part B therapies. Discharge [...] 500 mg capsule 1,000 mg PO Q8 ekmytevs-dxvbasv-lfssmdtp-zinc 3.5-0.2-69-16.5 % paste 1 applic topical BID [...] night. Referrals / Follow Up: Jorge A Barclay MD [Primary Care Provider] - Disposition Disposition (needs filled in before D/C Order can be placed): NonSkilled NH/Intermed Care 05/26/252044 <Electronically signed by Honorio Nettles MD> Cosigner Signature (if applicable): CC: Dr. Jorge A Barclay MD ~ [facility] Work Phone: 1(437) 728-226308-12-2025 [facility]08-11-2025 Consult note Author Alisia Rivera [facility] Note Date/Time May 25, 2025 2: 18pm [facility] Medical Records Department [address] [place] [address] Anesthesia Postop Eval II 05/25/25 1417 MR#: [id number] Acct: [id number] Name: ANAY SAMUELS Rep #:[id number] : 1945 79 From: Alisia coleman STRATEGIC ANALYST PCP: Dr. Jorge A Barclay MD Status:REG SD C Y Race: C Location: [place] [address]- Anesthesia Postop Eval I Sum Postop Eval [...] CRNA Cosigner Signature: Date CC: ~ Signed [facility] Work Phone: 1(973) 769-824508-11-2025 Consult note Author Johnson Camejo [facility] Note Date/Time May 25, 2025 1: 23pm [facility] Medical Records Department [address] [place] [address] Anesthesia Postop Eval I 05/25/25 1256 MR#: [id number] Acct: [id number] Name: ANAY SAMUELS Rep #:[id number] : 1945 79 From: Johnson Camejo PCP: Dr. Jorge A Barclay MD Status:REG SD C Y Race: C Location: [place] [address] Anesthesia: Postop Eval I Current Vital Signs [...] document: Postop Eval 1 completed: Yes 05/25/25 1256 <Electronically signed by Johnson Camejo > Date _ Johnson Camejo Cosigner Signature: Date CC: ~ Signed [facility] Work Phone: 1(575) 621-777408-11-2025 Consult note Author Alon Bills [facility] Note Date/Time May 25, 2025 12 :[address] [place] [address] Medical Records Department [address] [place] [address] Pre-Anesthesia Evaluation 05/25/25 1219 MR#: [id number] Acct: [id number] Name: ANAY SAMUELS Rep #:[id number] : 1945 79 From: Alon Bills MD PCP: Dr. Jorge A Barclay MD Status:REG SD C Y Race: C Location: [place] [address] ASA Classification* ASA Classification ASA Classification: 3 [...] Hgb 11.6 g/dL (12.0-15.0) L 05/19/25 05:06 Hct 36.2 % (37-47) L 05/19/25 05:06 [...] Procedure(s): Esophagogastroduodenoscopy. Anesthesia History Anesthesia History - quality improvement coordinator: Anesthesia History - quality improvement coordinator Hx Hospitalization No 01/02/22 15:07 Any Problems [...] sips of water?: Yes PONV PONV - quality improvement coordinator: PONV - quality improvement coordinator Female HX of Motion Sickness HX of N/V After Surgery Non-Smoker Duration of Surgery greater than 60 minutes Number of Risk Factors PONV Score Height & Weight Height & Weight: Anesthesia: Height & Weight Height 5 ft 05/25/25 11:48 Weight: 73.482 kg 05/25/25 11:48 Body Mass Index (BMI) 31.6 05/25/25 11:48 Respiratory Assessment Respiratory Assessment - quality improvement coordinator: Respiratory Tract Infection Hx - quality improvement coordinator Hx Respiratory Tract Infection No 01/02/22 15:07 STOP Sleep Apnea STOP Sleep Apnea - quality improvement coordinator: STOP Sleep Apnea - quality improvement coordinator Hx Hypertension Yes 04/21/25 11:22 Hx Sleep [...] Tobacco Use History Tobacco Use History - quality improvement coordinator: Tobacco Use History - quality improvement coordinator Tobacco Use Smoking Status Current some day smoker 04/21/25 07:28 Hx Tobacco Use No 04/20/25 20:29 Years Smoking Packs Smoked per Day Smoking Cessation Date was within the last 15 years Hx Smoking Cessation Date Hx Smoking Cessation Counseling Any additional information?: Yes Tobacco Use: Non-smoker and Cigars (Patient smokes cigar once a year.) Hematologic Medial History Hematologic Hx - quality improvement coordinator: Hematologic Medical Hx - gambling counsellor Hx of Blood Transfusion Hx of Transfusion in last 3 Months Date of Last Transfusion (if within last 3 months) Ever experience any problems with transfusion(s)? Specify any problems Hx of Preganancy in last 3 Months Nurse Filling Out Transfusion & Questions: Date: Time: Patient unable to answer at this time (ie. 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 05/25/25 1232 <Electronically signed by Alon hung MD> Date _ Alon Bills MD Cosigner Signature: Date CC: ~ Signed [facility] Work Phone: 1(788) 302-235608-11-2025 History and physical note Author Vicente Friend [facility] Note Date/Time May 25, 2025 11 :44am [facility] Medical Records Department [address] [place] [address] History & Physical Exam 05/25/25 1141 MR#: [id number] Acct: [id number] Name: ANAY SAMUELS Rep #:[id number] : 1945 79 From: Vicente Friend DO PCP: Dr. Jorge A Barclay MD Status:REG SD C Location: [address] HPI - General General Date of Admission: [...] frequent vomiting, often undigested food, after meals. 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 Jorge A Barclay MD; Vicente Yeager DO~ Signed [facility] Work Phone: 1([phone]) 608-173608-11-2025 Procedure [facility] 05-25-2025 Procedure [facility]08-11-2025 [facility]08-08-2025 Consult note Author Vicente Yeager [facility] Note Date/Time May 22, 2025 7:1 5pm [facility] Medical Records Department [address] [place] [address] Consultation - GI 05/22/25 1909 MR#: [id number] Acct: [id number] Name: ANAY SAMUELS Rep #:[id number] : 1945 79 From: Vicente Yeager DO PCP: Dr. Jorge A Barclay MD Status:ADM IN Location: [place] [id number]- HPI Consult Data Date of Consult: 05/22/25 [...] reports frequentvomiting, often undigested food, after meals. [facility] Medical History (Updated 04/21/25 @ 07:[address] 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 Charges/Coding Visit Charges Inpatient E&M: 22883 SNF Init L2 05/22/251914 <Electronically signed by Vicente Friend DO> Cosigner Signature (if applicable): CC: Dr. Jorge A Barclay MD~ Signed [facility] Work Phone: 1(824) 721-594308-05-2025 Progress note Author Honorio Nettles [facility] Note Date/Time May 19, 2025 5:1 4pm [facility] Medical Records Department [address] [place] [address] Progress Note - [facility] 05/18/25 0742 MR#: [id number] Acct: [id number] Name: ANAY SAMUELS Rep #:[id number] : 1945 79 From: Honorio Nettles MD PCP: Dr. Jorge A Barclay MD Status:ADM IN Location: [place] [address] Subjective Subjective Resident seen for regulatory visit. [...] Nausea - Zofran odt 8mg q8 prn. 05/19/251713<Electronically signed by Honorio Nettles MD> Cosigner Signature (if applicable): cc: ~* Signed [facility] Work Phone: 1(320) 552-921708-01-2025 Procedure [facility] 05-14-2025 Radiology Diagnostic study [facility]07-29-2025 Radiology Diagnostic study [facility]07-17-2025 History and physical note Author Honorio Nettles [facility] Note Date/Time April 30, 2025 7:24 am [facility] Medical Records Department [address] [place] [address] History & Physical Exam 04/21/25 07 MR#: [id number] Acct: [id number] Name: ANAY SAMUELS Rep #:[id number] : 1945 79 From: Honorio Nettles MD PCP: Dr. Jorge A Barclay MD Status:ADM IN Location: TCU TCU10-1 HPI - General General Date of Admission: [...] strengthening, prior to discharge home with . [facility] Medical History (Updated 04/21/25 @ 07:[address] Honorio Nettles MD) Hypokalemia HTN (hypertension) Encounter for education Paroxysmal atrial fibrillation Essential hypertension Vitamin B12 deficiency Thiamine deficiency Acute UTI Polyneuropathy Cerebrovascular disease Osteoporosis Gallstones Cataract Anemia custodial current use of anticoagulant Abnormal finding on [...] and aerobics frequency: 3-4 times per week jhony/faith: Congregational seatbelt use: always ROS Constitutional Constitutional: Reports [...] 81.3 H, Lymph % (Auto) 11.0 L, [place] % (Auto) 6.2, Eos % (Auto) 0.5, [...] Signature (if applicable): CC: Dr. Jorge A Barclay MD; Dr. Honorio Nettles MD~ Signed ADDENDUM by Dr. Honorio Nettles MD on 04/30/25 at 0724 Addendum UTI - ua c/w uti, Cipro 250mg po bid x 7 days, urine culture pending. 04/30/25 07<Electronically signed by Honorio Nettles MD> Cosigner Signature (if applicable): cc: Dr. Jorge A Barclay MD; Dr. Honorio Nettles MD ~* Signed [facility] Work Phone: 1(243) 665-874707-14-2025 Radiology Diagnostic study [facility]07-09-2025 Progress note Author Eugenie Lucas [facility] Note Date/Time April 22, 2025 7:25p m [facility] Medical Records Department [address] [place] [address] Progress Note - Pharmacy 04/22/25 1538 MR#: [id number] Acct: [id number] Name: ANAY SAMUELS Rep #:[id number] : 1945 79 From: Eugenie Lucas PCP: Dr. Jorge A Barclay MD Status:ADM IN Location: TCU TCU10-1 Documented by User: Eugenie Lucas 04/22/25 16:17 [...] 10:00 04/22/25 10:04 Apixaban 2.5 Mg Tablet ([facility]) PO 2.5 mg BID CYNDEE Administration Atorvastatin [...] PO Q8h, Arthritis compound cream topically BID, [id number] PO Q6h PRN pain 6-10. Please continue [...] Eugenie Lucas> Eugenie Hernandes Signature (if applicable): 04/22/25 1925 <Electronically signed by Honorio Nettles MD> CC: ~ Signed [facility] Work Phone: 1(917) 113-235607-08-2025 [facility]07-07-2025 Miscellaneous Notes* Plan of Care - OBDULIA [...] goal of average po being 75%. 6. Anthropology And Archeology Instructor to follow. * Plan of Care - [...] 04/15/2025 6:47 PM EDT On admission to 0, from another [facility] inpatient unit a dual [...] Care Medicine Inpatient Consultation Reason for Consultation: "Large R pleural effusion s/p extubation. Likely will need thoracentesis " Requesting Physician: Vicky Greco PA-C Impression & [...] Francois Fellow Pulmonary and Critical Care HPI: Aany Samuels is a 79 y.o. female with [...] MD * Plan of Care - Alis Landon, PT - 04/13/2025 10:19 AM EDT Problem: [...] 2/2 severe periorbital edema/bruising and facial swelling re examiner III, IV and : unable to test [...] BLE; weak pull 2/5in BUE, weak hand clinical nursing coordinator 1/5, unable to push provider away Sensation: [...] Sinha. Melonie Black PA-C 04/10/25 Service Pager: [phone] 11:53 PM * Op Note - Eli [...] with locking caps which were torqued to database operator's specifications, with reduction maneuvers used to reduce [...] MD - 04/10/2025 8:33 PM EDT Anay Samuels ([id number]) PRE OPERATIVE DIAGNOSIS Cervical myelopathy [G95.9] POST [...] MD; Kendrick Tripp MD; Jessee Leroy MD STRATEGIC ANALYST: Brandi Downey APRN-STRATEGIC ANALYST; Jorje Yeager APRN-STRATEGIC ANALYST SURGICAL STAFF [place] Alarm Installer: Abebe Ibarar RN; Jai Penny RN Relief Scrub: Alejandro Hunter Resident Assisting: Eric Marshall MD; Guru Almeida MD Storage Brine Worker: Kiki Espitia COMPLICATIONS None ESTIMATED BLOOD LOSS [...] of Evaluation: 04/09/2025 Trauma Attending: Dr. Tolliver QUILEUTE: TRAUMA LEVEL: Level 1 Trauma Inter-facility Transfer: Yes Anay Samuels is a 79 y.o. female with a past medical history significant for Afib on Eliquis who was transported to [facility] as a level 1 trauma/Stroke alert. Per [...] patient was taken to the OR with [facility]. TRAUMA CATALOGUE OF INJURIES & INCIDENTAL FINDINGS: [...] on Eliquis who was transported to [facility] as a level 1 trauma/Stroke alert. Per [...] abnormal spinal cord edema - Management per [facility] spine team Acute likely comminuted fracture of the C6 spinous process - Spine surgery engaged - MRI brain and cervical spine - Cervical collar for now - SBP<180 Right MCA Stroke - s/p Revascularization with [facility] - Patient admitted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 [...] 2025 End: May 25, 2025 Jorge A Barclay MD Referring Provider Active Start : May 25, 2025 End: May 25, 2025 Dr. Vicente Yeager DO Attending Provider Active Start: May 25, 2025 End: May 25, 2025 Team Status: Active Member Role/Relationship Status Dates Jorge A Barclay MD Primary Care Provider Active St art: May 25, 2025 Jorge A Barclay MD Referring Provider Active Start : May [...] tart: May 26, 2025 Dr. Collin Cintron , Other Provider Active Sta rt: May 26, 2025 Jroge A Barclay MD Primary Care Provider Active St art: May 26, 2025 Team Status: Inactive Member Role/Relationship Status Dates Jorge A Barclay MD Primary Care Provider Active St art: March 10, 2025 End: March 10, 2025 Jorge A Barclay MD Referring Provider Active Start : March 10, 2025 End: March 10, 2025 Dr. Alex Love MD Attending Provider Active S tart: March 10, 2025 End: March 10, 2025 Team Status: Inactive Member Role/Relationship Status [...] Inactive Member Role/Relationship Status Dates Jorge A Barclay MD Primary Care Provider Active St art: April 20, 2025 End: May 29, 2025 Dr. Honorio Nettles MD Admit Provider Active Star t: April 20, 2025 End: May 29, 2025 Dr. Honorio Nettles MD Attending Provider Active Start: April 20, 2025 End: May 29, 2025 Team Status: Active Member Role/Relationship Status Dates Jorge A Barclay MD Primary Care Provider Active St art: May 22, 2025 Dr. Honorio Nettles MD Admit Provider Active Star t: May 22, 2025 Dr. Honorio Nettles MD Other Provider Active Star t: May 22, 2025 Dr. Vicente Yeager DO Attending Provider Active Start: May 22, 2025 Team Status: Inactive Member Role/Relationship Status Dates Jorge A Barclay MD Primary Care Provider Active St art: May 25, 2025 End: May 25, 2025 Jorge A Barclay MD Referring Provider Active Start : May 25, 2025 End: May 25, 2025 Dr. Vicente Yeager DO Attending Provider Active Start: May 25, 2025 End: May 25, 2025 Team Status: Active Member Role/Relationship Status Dates Jorge A Barclay MD Primary Care Provider Active St art: May 25, 2025 Jorge A Barclay MD Referring Provider Active Start : May [...] Sta rt: May 26, 2025 Jorge A Barclay MD Primary Care Provider Active St art: May 26, 2025 Team Status: Active Member Role/Relationship Status Dates Jorge A Barclay MD Primary Care Provider Active St art: June 01, 2025 Logan DELUNA MD Attending Provider Active Start: June 01, 2025 Team Status: Active Member Role/Relationship Status Dates Jorge A Barclay MD Primary Care Provider Active St art: June 02, 2025 Logan DELUNA MD Attending Provider Active Start: June 02, 2025 Logan DELUNA MD Referring Provider Active Start: June 02, 2025 Team Status: Inactive Member Role/Relationship Status Ana Barclay MD Primary Care Provider Active St art: June 02, 2025 End: June 02, 2025 Dr. Logan Ellison MD Attending Provider Active Start: June 02, 2025 End: June 02, 2025 Team Status: Active Member Role/Relationship Status Ana Barclay MD Primary Care Provider Active St art: June 08, 2025 Logan DELUNA MD Attending Provider Active Start: June 08, 2025 Reason for Visit (unrecogniz ed section and content) Reason Comments Established Patient Reason Comments Established Patient Review pet scan Reason Comments Results Reason Comments Radiology CT Specialty Diagnoses / Procedures Referred By Contac t Referred To Contact CT IMAGING Diagnoses Localized enlarged lymph nodes Procedures CT CHEST W IVCON DIAGNOSTIC COMPUTED TOMOGRAPHY THORAX W/[place] [address] [place] [address] [place] [address] Referral ID Status Reason Start Date Expiration Date V isits Requested Visits Authorized [id number] Closed Auto-Generate d Referral 06/15/2022 07/15/2023 1 1 Reason Comments Radiology Mammogram Specialty Diagnoses / Procedures Referred By Contac t Referred To Contact BR IMAGING Diagnoses Breast cancer metastasized to axillary lymph node, left (HCC) Procedures LOLIS DIAGNOSTIC LT DIAGNOSTIC MAMMOGRAPHY COMPUTER-[place] [address] [place] [address] Br Imaging [address] [place] [address] Referral ID Status Reason Start Date Expiration Date V isits Requested Visits Authorized [id number] Closed Auto-Generate d Referral 05/22/2022 06/21/2023 1 [...] Kathleen Oviedo, RN)1818 (Given - Provider: Kathleen Oviedo RN)2356 (Given - Provider: Greer Newell RN - Comment: schduled) 0908 (Not Given - Provider: Parul Fontanez RN - Reason: Patient/family refused)1134 (Given - Provider: Parul Fontanez, PITO)1800 (Canceled Entry - Provider: System Discharge - Comment: Automatically canceled at discontinue of medication order) Atorvastatin (LIPITOR) tablet 40 mg 40 mg, Oral, DAILY AT BEDTIME, First dose on Sun04/11/25 at 2100, Until Discontinued 2032 (Given - Provider: Abby Johnson RN) 194 (Given - Provider: Greer Newell RN) cholecalciferol (VITAMIN D3) tablet 5,000 Units 5,000 Units, Oral, DAILY, First dose on Sun04/10/25 at 0900, Until Discontinued 0759 (Given - Provider: Kathleen Oviedo RN) 0833 (Given - Provider: Kathleen Oviedo RN) 0910 (Given - Provider: Parul Fontanez, PITO) Enoxaparin Sodium (LOVENOX) injection 40 mg(Linked Group 2) 40 mg, Subcutaneous, DAILY, First dose on Sun04/12/25 at 0900, Until Discontinued, For SUBCUTANEOUS route ONLY: alternate injection sites between left and right abdominal wall, pinching location and avoiding area around navel. If unable to use abdominal sites, may use the front or side of thighs., Indications: DVT/PE prophylaxis 0758 (Given - Provider: Kathleen Oviedo RN) 0833 (Given - Provider: Kathleen Oviedo RN) 0910 (Given - Provider: Parul Fontanez, RN) Folic acid (FOLVITE) tablet 1 mg 1 mg, Oral, DAILY, First dose on Sun04/10/25 at 0900, Until Discontinued 075 (Given - Provider: Kathleen Oviedo RN) 08 (Given - Provider: Kathleen Oviedo RN) 0910 (Given - Provider: Parul Fontanez, RN) Metoprolol (LOPRESSOR) tablet 25 mg 25 mg, Oral, EVERY 12 HOURS, First dose (after last modification) on Sun04/16/25 at 0900, Until Discontinued 075 (Given - [...] of Home Therapy 075 (Given - Provider: Kathleen Oviedo RN) 0833 (Given - Provider: Kathleen Oviedo RN) 0910 (Given - Provider: Parul Fontanez, PITO) Senna (SENOKOT) tablet 8.6 mg(Linked Group 3) 8.6 mg, Oral, DAILY, First dose on Sun04/09/25 at 0900, Until Discontinued 075 (Hold - Provider: Kathleen Oviedo RN - Reason: Patient with symptoms) 08 (Hold - Provider: Kathleen Oviedo RN - [...] one use. 0340 (Given - Provider: Abby Johnson RN)2352 (Given - Provider: Greer Newell RN) Methocarbamol (ROBAXIN) tablet 500 mg 500 mg, Oral, 3 TIMES DAILY NEEDED, Starting on Sun04/16/25 at 0828, Until Sun04/20/25 at 1913, Muscle spasms 1616 (Given - Provider: Parul Fontanez RN) Ondansetron [...] Pain 2032 (See Alternative - Provider: Abby Johnson RN) oxyCODONE (ROXICODONE) tablet 5 mg(Linked Group 6) [...] NEEDED, Starting on Sun04/10/25 at 2352, Until 04/11/25 at 1046, See administration instructions, For Systolic [...] 0828, Until Sun04/20/25 at 1914, Severe Pain Or oxyCODONE (ROXICODONE) tablet 2.5 mgJump to med 2.5 mg, Oral, EVERY 6 HOURS NEEDED, Starting on Sun04/16/25 at 0828, Until Sun04/20/25 at 1914, Moderate Pain Group 7: Polyethylene glycol (MIRALAX) packet 17 gJump to med 17 g, Oral, DAILY NEEDED, Starting on Sun04/08/25 at 1841, Until Sun04/20/25 at 1914, Constipation If No Bowel Movement in 48 Hours, after bisacodyl Or Polyethylene glycol (MIRALAX) packet 17 g (CANCELED) 17 g, Per NG tube, DAILY NEEDED, Starting on Sun04/08/25 at 1841, Until 04/11/25 at 1447, Constipation [...] BE BASED ON THE PRIMARY CLINICAL RECORDS. [facility]. provides no warranty or guarantee of the accuracy or completeness of information in this document.
[2025-06-16 08:41] LABS: Hematocrit 30.3 % (37-47); Hemoglobin 10.1 g/dL (12.0-15.0); Immature Granulocytes Count 0.080 X10^3/uL (0.0-0.0); Mean Corp Hgb Conc 33.3 g/dL (32-36); Mean Corpuscular Volume 100.3 fL (81-99); Mean Platelet Vol. 8.0 fl (6.2-12.0); NRBC Flagged by Analyzer 0 % (0-5); POSITIVE MORPHOLOGY YES; Platelet Count 252 K/mm3 (150-450); RBC Distribution Width CV 19.1 % (11.6-14.6); RBC Distribution Width SD 70.0 fl (35.1-43.9); Red Blood Count 3.02 M/mm3 (4.2-5.4); White Blood Count 6.4 K/mm3 (4.4-11.0)
[2025-06-16 08:46] LABS: Anion Gap 8 (5-15); BUN 22 mg/dL (4-19); BUN/Creat Ratio 41.2 RATIO (10-20); Calcium,Total 8.8 mg/dL (7.6-11.0); Carbon Dioxide 23.4 mmol/L (21.0-32.0); Chloride 107 mmol/L (98-108); Differential Indicated SCAN CRITERIA MET; Glucose 87 mg/dL (70-99); Potassium 4.3 mmol/L (3.3-5.1)
[2025-06-16 09:54] LABS: Anisocytosis 2+
== END ==
LOC: OLS.WHLTCC 04:00
PROVIDERS: PCP Family Medicine; Referring Provider Internal Medicine; Visit Provider Internal Medicine
DX: D64.9 Anemia, unspecified (principal)
CPT/HCPCS: 36415; 80048; 85025

== ENCOUNTER → 2025-06-23 05:00 | Outpatient (REF) | payer MEDICARE, OTHER, SELFPAY ==
[2025-06-23 07:04] LABS: Hematocrit 33.1 % (37-47); Hemoglobin 10.6 g/dL (12.0-15.0); Immature Granulocytes Count 0.020 X10^3/uL (0.0-0.0); Mean Corp Hgb Conc 32.0 g/dL (32-36); Mean Corpuscular Volume 104.1 fL (81-99); Mean Platelet Vol. 8.3 fl (6.2-12.0); NRBC Flagged by Analyzer 0 % (0-5); POSITIVE MORPHOLOGY YES; Platelet Count 170 K/mm3 (150-450); RBC Distribution Width CV 18.6 % (11.6-14.6); RBC Distribution Width SD 71.2 fl (35.1-43.9); Red Blood Count 3.18 M/mm3 (4.2-5.4); White Blood Count 5.8 K/mm3 (4.4-11.0)
[2025-06-23 07:39] LABS: Differential Indicated SCAN CRITERIA MET
[2025-06-23 08:14] LABS: Anisocytosis 1+
[2025-06-23 08:44] LABS: Anion Gap 11 (5-15); BUN 20 mg/dL (4-19); BUN/Creat Ratio 36.2 RATIO (10-20); Calcium,Total 8.8 mg/dL (7.6-11.0); Carbon Dioxide 22.1 mmol/L (21.0-32.0); Chloride 103 mmol/L (98-108); Glucose 83 mg/dL (70-99); Potassium 4.4 mmol/L (3.3-5.1)
== END ==
LOC: OLS.WHLTCC 05:00
PROVIDERS: PCP Family Medicine; Visit Provider Internal Medicine
DX: I69.354 Hemiplegia and hemiparesis following cerebral infarction affecting left non-dominant side (principal); N39.0 Urinary tract infection, site not specified; B96.89 Other specified bacterial agents as the cause of diseases classified elsewhere; D64.9 Anemia, unspecified
CPT/HCPCS: 36415; 80048; 85025

== ENCOUNTER → 2025-06-30 05:00 | Outpatient (REF) | payer MEDICARE, OTHER, SELFPAY ==
[2025-06-30 07:58] LABS: Hematocrit 31.1 % (37-47); Hemoglobin 10.1 g/dL (12.0-15.0); Immature Granulocytes Count 0.020 X10^3/uL (0.0-0.0); Mean Corp Hgb Conc 32.5 g/dL (32-36); Mean Corpuscular Volume 103.0 fL (81-99); Mean Platelet Vol. 8.5 fl (6.2-12.0); NRBC Flagged by Analyzer 0 % (0-5); POSITIVE MORPHOLOGY YES; Platelet Count 170 K/mm3 (150-450); RBC Distribution Width CV 18.0 % (11.6-14.6); RBC Distribution Width SD 67.9 fl (35.1-43.9); Red Blood Count 3.02 M/mm3 (4.2-5.4); White Blood Count 7.7 K/mm3 (4.4-11.0)
[2025-06-30 08:06] LABS: Differential Indicated SCAN CRITERIA MET
[2025-06-30 08:11] LABS: Anion Gap 9 (5-15); BUN 21 mg/dL (4-19); BUN/Creat Ratio 28.4 RATIO (10-20); Calcium,Total 8.8 mg/dL (7.6-11.0); Carbon Dioxide 22.7 mmol/L (21.0-32.0); Chloride 105 mmol/L (98-108); Glucose 97 mg/dL (70-99); Potassium 5.0 mmol/L (3.3-5.1)
[2025-06-30 08:38] LABS: Anisocytosis 1+
== END ==
LOC: OLS.WHLTCC 05:00
PROVIDERS: PCP Family Medicine; Visit Provider Internal Medicine
DX: D64.9 Anemia, unspecified (principal)
CPT/HCPCS: 36415; 80048; 85025

== ENCOUNTER → 2025-07-01 | Outpatient (CLI) | payer MEDICARE, BC, SELFPAY | END | disposition home or self-care (01) | LOC: NM 07:49 | PROVIDERS: PCP Internal Medicine; Referring Provider Nurse Practitioner Acute Care; Visit Provider Nurse Practitioner Acute Care | DX: Z00.00 Encounter for general adult medical examination without abnormal findings (principal) ==

== ENCOUNTER → 2025-07-07 05:02 | Outpatient (REF) | payer MEDICARE, OTHER, SELFPAY ==
[2025-07-07 06:40] LABS: Hematocrit 30.6 % (37-47); Hemoglobin 10.1 g/dL (12.0-15.0); Immature Granulocytes Count 0.130 X10^3/uL (0.0-0.0); Mean Corp Hgb Conc 33.0 g/dL (32-36); Mean Corpuscular Volume 102.3 fL (81-99); Mean Platelet Vol. 8.0 fl (6.2-12.0); NRBC Flagged by Analyzer 0 % (0-5); Platelet Count 238 K/mm3 (150-450); RBC Distribution Width CV 17.0 % (11.6-14.6); RBC Distribution Width SD 63.6 fl (35.1-43.9); Red Blood Count 2.99 M/mm3 (4.2-5.4); White Blood Count 6.1 K/mm3 (4.4-11.0)
[2025-07-07 06:47] LABS: Anion Gap 9 (5-15); BUN 22 mg/dL (4-19); BUN/Creat Ratio 33.0 RATIO (10-20); Calcium,Total 8.5 mg/dL (7.6-11.0); Carbon Dioxide 22.6 mmol/L (21.0-32.0); Chloride 104 mmol/L (98-108); Glucose 80 mg/dL (70-99); Potassium 4.6 mmol/L (3.3-5.1)
== END ==
LOC: OLS.WHLTCC 05:02
PROVIDERS: PCP Internal Medicine; Referring Provider Internal Medicine; Visit Provider Internal Medicine
DX: I69.354 Hemiplegia and hemiparesis following cerebral infarction affecting left non-dominant side (principal); N39.0 Urinary tract infection, site not specified; B96.89 Other specified bacterial agents as the cause of diseases classified elsewhere; D64.9 Anemia, unspecified
CPT/HCPCS: 36415; 80048; 85025

== ENCOUNTER → 2025-07-28 | Outpatient (CLI) | payer MEDICARE, OTHER, SELFPAY ==
--- NOTE | 2025-07-28 10:30 | NM_ITS ---
PROCEDURE: GASTRIC EMPTYING STUDY 07/28/2025 REASON FOR EXAM: DIFFICULTY SWALLOWING TECHNIQUE: Procedure Code: NMGES Modality: NM Procedure: GASTRIC EMPTYING STUDY The patient ingested a standard meal of 1.2 mg of sulfur colloid in oatmeal. Anterior and posterior planar images of the upper abdomen were obtained for 1 minute immediately following the meal at 1h, 2h and 4h if more than 10% of the activity persisted within the stomach. Regions of interest were drawn, and a geometric mean was used to calculate a [id number]. Medications taken in the past 24 hours that may affect gastric emptying: Unknown. FINDINGS: Percent activity remaining in stomach: 1 hour 42 % (normal 37-90%) T1/2 = 45.3 minutes NM/Gastric Emptying Study IMPRESSION: The gastric emptying appears somewhat hyperkinetic. Reading Location: [place] [id number]
--- NOTE | 2025-07-28 10:30 | NM_ITS ---
PROCEDURE: GASTRIC EMPTYING STUDY 07/28/2025 REASON FOR EXAM: DIFFICULTY SWALLOWING TECHNIQUE: Procedure Code: NMGES Modality: NM Procedure: GASTRIC EMPTYING STUDY The patient ingested a standard meal of 1.2 mg of sulfur colloid in oatmeal. Anterior and posterior planar images of the upper abdomen were obtained for 1 minute immediately following the meal at 1h, 2h and 4h if more than 10% of the activity persisted within the stomach. Regions of interest were drawn, and a geometric mean was used to calculate a [id number]. Medications taken in the past 24 hours that may affect gastric emptying: Unknown. FINDINGS: Percent activity remaining in stomach: 1 hour 42 % (normal 37-90%) T1/2 = 45.3 minutes NM/Gastric Emptying Study IMPRESSION: The gastric emptying appears somewhat hyperkinetic. Reading Location: [place] [id number]
== END | disposition home or self-care (01) ==
LOC: NM 10:25
PROVIDERS: PCP Internal Medicine; Referring Provider Nurse Practitioner Acute Care; Visit Provider Nurse Practitioner Acute Care
DX: K21.9 Gastro-esophageal reflux disease without esophagitis (principal); R11.2 Nausea with vomiting, unspecified; R68.81 Early satiety
CPT/HCPCS: 78264; A9541

== ENCOUNTER → 2025-09-17 | Outpatient (CLI) | payer MEDICARE, BC, SELFPAY | END | disposition home or self-care (01) | LOC: MTLAB 15:17 | PROVIDERS: PCP Internal Medicine; Referring Provider Internal Medicine Medical Oncology; Visit Provider Internal Medicine Medical Oncology | DX: N39.0 Urinary tract infection, site not specified (principal) | CPT/HCPCS: 87077; 87086; 87088; 87186 ==

== ENCOUNTER → 2025-09-18 | Outpatient (CLI) | payer MEDICARE, BC, SELFPAY ==
[2025-09-22 20:08] LABS: Calprotectin, Stool 182 ug/g (0-120)
== END | disposition home or self-care (01) ==
LOC: MTLAB 08:08
PROVIDERS: PCP Internal Medicine; Referring Provider Internal Medicine Medical Oncology; Visit Provider Internal Medicine Medical Oncology
DX: R19.5 Other fecal abnormalities (principal); D64.9 Anemia, unspecified; K58.9 Irritable bowel syndrome, unspecified
CPT/HCPCS: 82274; 83630; 83993; 87493